=== PATIENT | male | born 1940 | race Caucasian/White ===

== ENCOUNTER 2018-03-18 02:08 | Outpatient (RCR) | payer OTHER, SELFPAY | END 2018-04-17 02:08 | LOC: CR 02:08 | PROVIDERS: PCP Family Medicine; Visit Provider Family Medicine | DX: Z98.61 Coronary angioplasty status (principal); I25.2 Old myocardial infarction; I10 Essential (primary) hypertension; Z51.89 Encounter for other specified aftercare ==

== ENCOUNTER 2018-04-16 09:30 | Outpatient (RCR) | payer OTHER, SELFPAY ==
--- NOTE | 2018-03-24 13:18 | IE_ITS ---
Date: March 24, 2018 Referring: Mauricio Dodson MD M.D. Diagnosis: Fractured R femur s/p ORIF SUBJECTIVE: Erwin complains of intermittent discomfort throughout the anterior medial aspect of the R knee, which generally occurs with WB, especially when taking the first few steps after prolonged sitting; also with end range knee flexion. History of Present Illness: 77 yo male s/p R TKR in 2003. 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 He was doing well until January 07, when he was at [facility] and lost his balance, resulting in a rotary stress and fracture of the distal R femur. He underwent ORIF with plating and cerclage wires on January 09. WB was limited to 20 lbs up until 2 weeks ago and he was cleared for full WB. Pain Ratin /10 Pain Location: Throughout the anterior medial aspect of the R knee. Prior Level of Function: Independent in all ADLs and WB without assistive device. Current Level of Function: Walks with a wheeled walker and has difficulty with his normal household and recreational activities, walking more than a couple blocks, stair climbing, etc... Social: . Lives in [place], [place]. 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 Comorbidities: Hypertension, CAD s/p MS in November this year. Had 3 stents. Was involved in cardiac rehab prior to his fracture. Falls in the last year: __X__Yes - How many? __As described above.__ - (if over 2, balance SM needs to be completed) Reported hospitalizations in the last year - __X__ Yes - Dates of admission/ reason: For his recent femoral fracture. Medications: Refer to PCP medication list. Includes anti-hypertensives and Plavix and Statin. Quality of Life: __X__ Fair Standardized Measures: LEFS score: __49%__ OBJECTIVE: Posture: Unremarkable. Observation: (behavior, atrophy, skin color, etc.) Has soft tissue swelling throughout the distal R femur and knee. Negative erythema. Has significant pronated L ankle foot complex. Gait: Ambulates with WW with poor R knee extension during stance phase and severe hyperpronation L foot. Is able to walk on his R heel and toe. Unable to toe walk on the L. He is able to walk short distances without an assistive device, again with poor knee extension during stance phase and this causes some anterior medial knee discomfort. When locking his knee into available extension , he has less anterior medial knee pain. He places greater than 180 lbs of WB on his R leg when using the walker. He weighs over 200. Palpation: Has some jointline tenderness of the R knee, as well as the anterolateral aspect of the distal R thigh compared to the L. Edema: Edematous R distal femur and knee. Positive warmth. Again, negative erythema. Girth measurements: 4 in. below the tibial tubercle is 39 cm on the R and 40 cm on the L. 8 in. above the tibial tubercle is 52 cm on the R and 50 cm on the L and midpatellar is 47 cm on the R, 45 on the L. ROM: Lumbar movements not tested. R hip motion WNL without pain on movement. R knee motion 0-115 degrees and with stretch 125 with end range drawing throughout the anteromedial aspect of the knee. R talocrural, subtalar and midtarsal movements are WFL. He has significant HAV. L foot shows significant forefoot abduction of greater than 15-20 degrees, along with forefoot varus of 20-30 degrees and limited subtalar supination with calcaneal varus at 15 degrees. Negative pain on movement. He has callus formation over the plantar aspect of the talar navicular region. Joint Accessory Motion: He has grade II PA glides at the tibiofemoral joint, along with good patellar movement. Strength: He has 15 degree extension lag of the R knee. Laxity on the L. R gluteus medius is at 3/5 as well as the gluteus alexia. When flexing his R knee in the prone position, he falls into hip ER. This causes some mild anteromedial knee discomfort, but when attempting to keep it in the midline, it decreases the sensation. ER and IR in the sitting position are equal though. Neuro: Intact. Special Tests: Negative straight leg raise bilaterally with hamstring length at 70 degrees. Treatment: Examination and pt education, as well as developing a home program. IE: [id number] Therapeutic procedures ([id number]). Direct treatment time: 60 min Total treatment time: 60 min ASSESSMENT: Patient is a 77-year-old male, referred for PT services with the diagnosis of fractured distal R femur s/p ORIF. Patient presents with clinical signs and symptoms consistent with this diagnosis, as demonstrated by the following impairment level findings: soft tissue swelling throughout the distal R femur and knee, along with quadriceps and hip musculature weakness. 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 He has tried an Deysi brace in the past, but did not tolerate it well and he is really having minimal discomfort, but it does result in leg length shortening. 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 Patient is assessed as: __X__ Low 42117 complexity, based on the following: History: (list): Distal R femoral fracture s/p ORIF. Examination: (list): X See above for functional limitations and impairments. Presentation: . X Evolving Decision-Making: X Low complexity 49 % Disability based on LEFS __X__ Patient requires skilled PT intervention to remediate the above functional limitations to return to: __X__ Premorbid level of function Prognosis: __X__ Good G-Codes (fill in modifier after appropriate code): Patient's primary functional limitation is in the category of: __X__ Mobility - walking and moving around : [id number] Projected goal: __X_ Mobility - walking and moving around: [id number] [id number] modifier to be utilized as justified by above documentation for necessity of continued Physical Therapy intervention to attend to functional deficits which have not been fully remediated as they approach their Medicare cap. STG: __6__ weeks. 1. Decrease soft tissue swelling throughout the distal thigh and knee, along with normalizing the quad and glute strength to allow normal gait mechanics and tolerating the prolonged standing and walking activities. LTG: __12__ weeks. __X__ Return to premorbid level of function. PLAN: Session today consisted of evaluation, along with issuing a written and illustrated HEP consisting of anti-gravity strengthening exercises to the gluteus alexia, medius, quads and WB terminal extension exercises for the R knee. He is to use the walker until we minimize the antalgic gait. Will see him twice per week for lymph drainage techniques, along with strengthening exercise to the entire RLE, gait training, etc... Thank you for this referral. Please do not hesitate to contact me with any questions or concerns regarding this patient's plan of care. DLW/fw MEDICAREDr. Dodson, please sign below and return to PT if you agree with above POC. Mauricio Dodson MD Date
--- NOTE | 2018-03-30 15:16 | PTTR_ITS ---
DATE: 03/30/18 SUBJECTIVE: Pt reports having some discomfort, usually on the medial aspect of the knee, but mostly feeling very weak. Is looking forward to gaining more strength. Reports being compliant with HEP OBJECTIVE: Manual therapy: ([id number]). MLD techniques applied to R LE including stimulating lymph nodes in the inguinal, popliteal fossa, and posterior ankle. This is followed by MLD strokes in a [id number] progression, and stimulation to the same lymph nodes. Therapeutic procedures ([id number]). * X HEP review: Pt complains of difficulty doing prone SLR. Suggested adding a pillow under hips to increase comfort. Rechecked form, pt appears to be performing exercises correctly. * X See flow sheet: Started pt on LE strengthening routine including standing open and closed chain hip, knee, ankle, and multi-joint functional movements as well as weight shifting over affected leg due to difficulty and pain achieving SLS. * X Provided skilled instruction in proper exercise performance: Pt requires min cueing to maintain proper form. * X Provided skilled manual cues to facilitate proper muscle recruitment and/ or movement pattern. * X Other: Vitals taken at start of treatment, please see flow sheet for details. Direct treatment time: 30 minutes Total treatment time: 30 minutes
--- NOTE | 2018-04-02 10:29 | PTTR_ITS ---
DATE: 04/02/18 SUBJECTIVE: Tra states that he is feeling stiff today, he feels that he probably overdid it yesterday. She states that he is trying to use his FWW less, to tolerance. OBJECTIVE: Manual therapy: ([id number]). With patient seated at edge of plinth, performed brief mobilization into knee extension and flexion on R, ROM is WNL. With patient in supine, performed MLD techniques t/o R LE, which includes stimulating inguinal, popliteal, and ankle lymph nodes, followed by MLD strokes starting proximally, working distally. Therapeutic procedures ([id number]). * [X] See flow sheet: Patient completed an open and closed-chain LE strengthening and stabilization program, as per flow sheet. Added reciprocal stair training and functional [id number] exercises today, with good tolerance. Patient was able to maintain SLS on R without buckling noted to perform hip PRE exercises. Vitals were taken pre-exercise and recorded on flow sheet. * [X] Provided skilled instruction in proper exercise performance. * [X] Provided skilled manual cues to facilitate proper muscle recruitment and/or movement pattern. * [X] Other: Patient ends with NuStep biking via Wellness Program. Direct treatment time: 30 minutes Total treatment time: 40 minutes
--- NOTE | 2018-04-06 10:20 | PTTR_ITS ---
DATE: 04/06/18 SUBJECTIVE: Erwin states that he felt great Friday and Friday, so he tried using his cane for the evening, and was very sore the next day. OBJECTIVE: Manual therapy: ([id number]). With patient in supine and legs positioned on a wedge pillow, performed MLD techniques to R LE. Began by stimulating the inguinal, popliteal, and ankle nodes, followed by MLD strokes, working proximally, working distally. Therapeutic procedures ([id number]). * [X] See flow sheet: Patient completed an open and closed chain LE strengthening and stabilization program, as per flow sheet. Added proprioceptive balance activities, including SLS activities, with good tolerance. Patient tolerated a slight progression in his program today, modifications made are noted on flow sheet. Vitals were taken prior to exercise and recorded on flow sheet. Patient ends with NuStep biking x10 minutes via Wellness Program. * [X] Provided skilled instruction in proper exercise performance. * [X] Provided skilled manual cues to facilitate proper muscle recruitment and/or movement pattern. Direct treatment time: 30 minutes Total treatment time: 40 minutes
--- NOTE | 2018-04-09 11:02 | PTTR_ITS ---
DATE: 04/09/18 SUBJECTIVE: Erwin states that he has developed a new pain in inferomedial thigh on the right. He describes his pain as pulling, definitely not bone pain and attributes this new sensation to an increase in activity and exercise. OBJECTIVE: Manual therapy: ([id number]). With patient in supine with B LE elevated on wedge pilliow, perform MLD techniques to R LE starting with stimulating the inguinal, popliteal, and ankle nodes, then work proximal to distal using MDL strokes. Therapeutic procedures ([id number]). * [X] See flow sheet: Patient completed a LE strengthening and stabilization program, as per flow sheet. Focused on stability with SLS on R, modifications were made to reps and times, to patient's tolerance, and are noted on the flow sheet. Vitals were taken pre-exercise and recorded on flow sheet. Patient ends with NuStep biking x10 minutes, via Wellness Program. * [X] Provided skilled instruction in proper exercise performance. * [X] Provided skilled manual cues to facilitate proper muscle recruitment and/or movement pattern. Direct treatment time: 30 minutes Total treatment time: 40 minutes
--- NOTE | 2018-04-13 09:30 | PTTR_ITS ---
DATE: 04/13/18 SUBJECTIVE: Erwin feels he has made some good gains in his gait stability compared to 2 weeks ago. He has some intermittent discomfort throughout the anterolateral and medial aspect of his R knee with hill and stairclimbing. Feels that he is stable enough that he can start walking without the walker. OBJECTIVE: S/p ORIF of distal R femur. He has been undergoing therapy for the past couple weeks. Gait: Enters the clinic walking with wheeled walker, but not putting much weight on the device itself. He is able to walk without walker with antalgia on the R which is comparable to when he is using the walker. I have him use a cane and he feels this is just as stable compared to the walker. ARTICULAR: His AA R knee motion is non-irritable. His ROM is from 0 to 128-130 degrees. He has approximately 15-20 degree extension lag though on the R Continues to have some swelling throughout the distal femur. Circumference measurements suprapatella is 49cm R, 47cm L. I upgrade his HEP to include wall squats, not to exceed 30 degrees, isotonic PRE with 5# weight along with terminal knee extension exercises to eliminate his extension lag. We discuss using a full length elastic stocking, but he is not interested in doing so, he does have a knee brace at home that has some compression to it, so he is going to see if this helps reduce some of his distal femoral swelling. I also performed a King Balance test and he scored a 43/56, under 45 indicates fall risk. Therapeutic procedures ([id number]). Direct treatment time: 40 mins Total treatment time: 40 mins A: Making progress. Has better ROM of the knee and greater stability, although he still has an extension lag and some distal femoral swelling. Still needs to build up his quads and should see a difference in his stability as a result. He does have a balance deficit based on his King scale. P: Continue to follow 2x a week for progressive strengthening in an open/close chain manner as well as balancing activities. He is expressing some interest in aquatic therapy, so will also have him try that to supplement his program. Has a follow up later in the week DLW/dl
--- NOTE | 2018-04-13 13:27 | PTTR_ITS ---
DATE: 04/13/18 OBJECTIVE: This was a co tx with PT Gilbert Garcia please refer to his note for specifics. Therapeutic procedures ([id number]). Consisting of open and closed chain LE strengthening activities, light proprioceptive activities, wobble board, functional sit to stands, cardiovascular exercise with step ups and also with the Nustep. Pt's vitals were taken please see flow sheet for specifics. Direct treatment time: 20 minutes Total treatment time: 20 minutes and then completed cardio on the Nustep and vitals on the wellness with Oneyda.
--- NOTE | 2018-04-16 14:37 | PTTR_ITS ---
DATE: 04/16/18 SUBJECTIVE: Erwin reporting feeling good today. He states he is no longer utilizing his walker and relies on the cane with outdoor ambulation. He does not tend to use his cane inside his home. OBJECTIVE: Therapeutic procedures [id number]: Instruct pt in his LE strengthening program as noted on his flow sheet also including light balance tasks and proprioceptive re -training exercises. He requires cues for appropriate movement mechanics and fatigues easily today. We did not advance program that much today as he is attending aquatic therapy later in the day. He ends with Nustep x 10 minutes via wellness program. Vitals taken pre and post, WNL. Direct time: 30 minutes Total time: 40 minutes Regina Barrientos, AGENCY DIRECTOR
--- NOTE | 2018-04-16 14:44 | AT_ITS ---
04/16/18 SUBJECTIVE: Erwin reporting feeling a little fatigued after the AM workout in the clinic. He is looking forward to aquatic therapy. OBJECTIVE: Aquatic therapy [id number]: Pt initiated his first aquatic therapy program as noted on his flow sheet for LE strengthening, conditioning and gait training activities. Provided skilled cueing throughout for appropriate movement patterns and techniques with his exercises. Ends with deep end bicycle x 5 minutes. Again pt feeling fatigued post session although no increases in discomfort. Direct time 30 minutes Total time: 40 minutes Regina Barrientos, ASW/ASUW TACTICAL AIR CONTROLLER
== END 2018-04-17 23:59 | disposition home or self-care (01) ==
LOC: PT 09:30
PROVIDERS: PCP Family Medicine; Referring Provider Orthopaedic Surgery; Visit Provider Orthopaedic Surgery
DX: S72.401D Unspecified fracture of lower end of right femur, subsequent encounter for closed fracture with routine healing (principal)
CPT/HCPCS: 97110; 97113; 97140; 97161; G8978

== ENCOUNTER 2018-05-15 13:22 | Outpatient (RCR) | payer OTHER, SELFPAY | END 2018-05-17 23:59 | disposition home or self-care (01) | LOC: CR 13:22 | PROVIDERS: PCP Family Medicine; Visit Provider Family Medicine | DX: Z98.61 Coronary angioplasty status (principal); I25.2 Old myocardial infarction; I10 Essential (primary) hypertension; Z51.89 Encounter for other specified aftercare | CPT/HCPCS: S9472 ==

== ENCOUNTER 2018-06-17 09:00 | Outpatient (RCR) | payer OTHER, SELFPAY | END 2018-06-17 23:59 | disposition home or self-care (01) | LOC: CR 09:00 | PROVIDERS: PCP Family Medicine; Visit Provider Family Medicine | DX: Z98.61 Coronary angioplasty status (principal); I25.2 Old myocardial infarction; I10 Essential (primary) hypertension; Z51.89 Encounter for other specified aftercare | CPT/HCPCS: S9472 ==

== ENCOUNTER 2018-06-22 13:03 | Outpatient (RCR) | payer OTHER, SELFPAY | END 2018-07-17 23:59 | disposition home or self-care (01) | LOC: CR 13:03 | PROVIDERS: PCP Family Medicine; Visit Provider Family Medicine | DX: Z98.61 Coronary angioplasty status (principal); I25.2 Old myocardial infarction; I10 Essential (primary) hypertension; Z51.89 Encounter for other specified aftercare | CPT/HCPCS: S9472 ==

== ENCOUNTER 2018-09-02 08:40 | Outpatient (REF) | payer OTHER, SELFPAY ==
[2018-09-02 11:54] LABS: Abs Immature Grans 0.01 k/cumm (0.0-0.09); Absolute Basophil Count 0.04 k/cumm (0.0-0.2); Absolute Eosinophil Count 0.12 k/cumm (0.0-0.7); Absolute Lymphocyte Count 1.71 k/cumm (1.2-3.4); Absolute Monocyte Count 0.44 k/cumm (0.11-0.7); Absolute Neutrophil Count 2.57 k/cumm (1.2-6.7); Basophils % 0.8; Eosinophils % 2.5; HCT 39.7 % (40.0-50.0); HGB 13.3 g/dL (13.5-17.5); Immature Grans % 0.2; Mean Corp. HGB Concentration 33.5 g/dL (32.0-36.0); Mean Corpuscular Hemoglobin 30.3 pg (27.0-33.0); Mean Corpuscular Volume 90.4 fL (80-95); Mean Platelet Volume 10.4 fL (8.0-11.0); Neutrophils % 52.5; Platelet Count 154 x1000/uL (130-400); RBC 4.39 m/cumm (4.50-6.00); RBC Distribution Width 13.1 % (11.8-14.1); White Blood Cell Count 4.89 k/cumm (4.4-10.8)
[2018-09-02 12:16] LABS: ALT 29 U/L (12-78); AST 20 U/L (15-37); Albumin 3.3 g/dL (3.4-5.0); Alkaline Phosphatase 122 U/L (46-116); Anion Gap 6.4 mmol/L (3-11); BUN 31 mg/dL (7-18); Bilirubin, Total 0.7 mg/dL (0.2-1.0); CO2 28.6 mmol/L (21.0-32.0); CREATININE 1.63 mg/dL (0.70-1.30); Calcium 8.7 mg/dL (8.5-10.1); Chloride 102 mmol/L (98-107); Cholesterol 120 mg/dL (50-200); Estimated GFR 41.12 (mL/min/1.73m2); Glucose 76 mg/dL (70-100); HDL Cholesterol 57 mg/dL (40-60); LDL CHOLESTEROL 55 mg/dL (<100); Potassium 4.2 mmol/L (3.5-5.1); Sodium 137 mmol/L (136-145); Total Protein 6.1 g/dL (6.4-8.2); Triglyceride 56 mg/dL (30-150)
== END 2018-09-02 09:00 ==
LOC: NCHCN 08:40
PROVIDERS: PCP Family Medicine; Visit Provider Family Medicine
DX: E78.5 Hyperlipidemia, unspecified (principal); I10 Essential (primary) hypertension; D64.9 Anemia, unspecified
CPT/HCPCS: 80053; 80061; 83721; 85025

== ENCOUNTER 2019-03-22 12:41 | Outpatient (CLI) | payer OTHER, SELFPAY ==
--- NOTE | 2019-03-22 10:00 | DI.RAD_ITS ---
SYMPTOMS/DIAGNOSIS: KNEE PAIN LEFT KNEE: There is narrowing of the lateral femoral tibial joint as well as patellofemoral joint. Periarticular spurring is noted. There may be a small joint effusion. Vascular calcifications are seen. IMPRESSION: Moderate to severe degenerative changes.
== END 2019-03-22 13:01 ==
PROVIDERS: PCP Family Medicine; Referring Provider Family Medicine; Visit Provider Student in an Organized Health Care Education/Training Program
DX: M25.562 Pain in left knee (principal); M17.12 Unilateral primary osteoarthritis, left knee; M25.462 Effusion, left knee; Z96.651 Presence of right artificial knee joint; Z87.81 Personal history of (healed) traumatic fracture
CPT/HCPCS: 73562; 99203; 99214

== ENCOUNTER 2019-05-31 10:31 | Observation (INO) | payer OTHER, SELFPAY ==
[2019-05-31] VITALS (31 sets, daily range): BP systolic 111–186; BP diastolic 10–107; PULSE 35–112; RESP 16–27; TEMP 35.9–37; O2SAT 91–98
--- NOTE | 2019-05-31 10:33 | DI.RAD_ITS ---
EXAM: XR PORTABLE CHEST AP INDICATION: severe bradycardia. COMPARISON: CHEST ONE VIEW IN RAD DEPT from 01/07/2018 TECHNIQUE: 2D digital imaging was performed. FINDINGS: AP view of the chest was obtained. Heart is not enlarged. Lungs are clear and well expanded. Quest ion spinal stimulator projected over the lower thoracic/upper lumbar region. IMPRESSION: No evidence of acute process
--- NOTE | 2019-05-31 10:49 | W.ED.GENAD ---
Discharge Plan Disposition Patient Disposition: [facility] INPATIENT Condition: Good Discharge Details Chief Complaint: Palpitatns Clinical Impression: Symptomatic bradycardia, Bigeminy Primary Care Provider: Karo Otero ED Provider: Willie Sotomayor Home Meds and New Rx's Prescriptions: No Action bupropion HCl 150 MG tablet extended release 12 hr 150 mg PO BID RF: 0 aspirin [Aspirin Low Dose] 81 MG tablet,delayed release (DR/EC) 81 mg PO DAILY RF: 0 temazepam 15 MG capsule 15 mg PO .QHS RF: 0 multivitamin 1 EACH capsule 1 tab PO DAILY RF: 0 atorvastatin 20 mg Tablet 20 mg PO QPM RF: 0 irbesartan-hydrochlorothiazide 150-12.5 mg Tablet 1 tab PO DAILY RF: 0 metoprolol tartrate 25 MG tablet 12.5 mg PO BID RF: 0 nitroglycerin 0.4 MG tablet, sublingual 1 tab PO PRN PRNRF: 0 Medical Decision Making This is a very pleasant 78-year-old male with past medical history of AK 2018 with 2 subsequent stents, who takes daily aspirin and 25 mg daily metoprolol. He presents today for notable fatigue that started this morning when he awoke. He checked his pulse and noted it to be at the 30s per his nurse , blood pressure was slightly elevated in the 140 systolic. No syncope or chest pain or chest heaviness. He came to the ER for further assessment. Physical exam is notably benign, bedside limited ultrasound seems to demonstrate fair contractility throughout, no pericardial effusion. PVCs are notable which appears to be in a ratio bigeminy, however a subtle pulse is detected during these PVC episodes. During the patient's bedside cardiac ultrasound he actually did have complete resolution of his bigeminy for a few minutes, then reverted back to his bigeminy rhythm. We will evaluate for electrolyte abnormalities, pacer pads have been placed, will monitor closely. Unfortunately there is no cardiology available here at [facility] today. We will reach out to [facility] once his laboratory work-up is complete. 12:31 PM Laboratory work-up demonstrates no significant electrolyte abnormalities, CBC benign. Creatinine slightly elevated at 1.73. Patient remains asymptomatic while sitting in bed, he does get fatigued when he gets up and starts to walk. Did contact [facility] and discussed the case with Dr. fry, who recommended observation for the next 12 to 24 hours, holding the metoprolol, and reassessing. They state that currently they do not have beds available for transfer down to [facility]. They do not recommend any overdrive pacing at this time, or any other additional medications. I did contact our hospitalist , he agrees with the assessment and plan. I have extensively reviewed the treatment plan with the patient. I have addressed all patient concerns at this time. I have also discussed the plan with the admitting physician and they agree with the current assessment and plan and have agreed to assume responsibility for the patient. All parties demonstrate verbal understanding and agreement with our assessment and plan at this time. EKG 10: 37 Rate 69, WY 218, QTc 446, QRS 92, sinus rhythm, frequent PVCs with bigeminy, no significant ST elevations or depressions, no T wave inversions, no evidence of STEMI. No evidence of Brugada, or Wellens syndrome. FINDINGS: AP view of the chest was obtained. Heart is not enlarged. Lungs are clear and well expanded. Question spinal stimulator projected over the lower thoracic/upper lumbar region. IMPRESSION: No evidence of acute process Ordered By: Willie Sotomayor DO CC: HPI General Date/Time Provider Initiated Documentation: 05/31/19 10:32. HPI Narrative: This is a pleasant 78-year-old male with a past medical history of coronary artery disease status post 2 stents were placed in [address] 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 fisheries manager Augie. He takes a daily 25 mg metoprolol, as well as aspirin. He presents today for evaluation of fatigue. This morning he noticed that he was extremely fatigued. He denies any associated chest pain or shortness of breath. He denies any arm pain, chest heaviness, or chest tightness. He denies any numbness, tingling, weakness or syncope. He did check his pulse and had his who is a nurse also check his pulse and it was noted to be bradycardic in the 30s. Blood pressure was stable though, actually slightly elevated in the 140s. He came to the ER for further assessment. He denies any previous episodes like this. He states that the symptoms are atypical for when he had his heart attack in the past. He denies any other complaints at this time. He denies any dietary changes, change in medications, or other abnormalities. Related Data Home Medications Medication Instructions Recorded Confirmed aspirin [Aspirin Low Dose] 81 mg PO DAILY 11/18/17 05/31/19 bupropion HCl 150 mg PO BID 11/18/17 05/31/19 multivitamin 1 tab PO DAILY 11/18/17 03/22/19 temazepam 15 mg PO .QHS 11/18/17 05/31/19 metoprolol tartrate 12.5 mg PO BID 01/07/18 05/31/19 nitroglycerin 1 tab PO PRN PRN 01/07/18 05/31/19 atorvastatin 20 mg PO QPM 05/31/19 05/31/19 irbesartan-hydrochlorothiazide 1 tab PO DAILY 05/31/19 05/31/19 Allergies Allergy/AdvReac Type Severity Reaction Status Date / Time oxycodone AdvReac Intermediate Nausea Unverified 05/31/19 11:11 pollen Allergy Uncoded 05/31/19 11:11 Review of Systems Review of Systems ROS Unobtainable: All systems reviewed & are unremarkable except as noted in HPI and below PFSH Medical History (Updated 03/22/19 @ 19:14 by Luana Rosenberg) History of non-ST elevation myocardial infarction (NSTEMI) (Acute) November 2017 Surgical History (Updated 03/22/19 @ 19:14 by Luana Rosenberg) History of revision of total replacement of right knee joint (Acute) Right TKA - [place] (2003) Two-stage revision for infection -[place] (2008) S/P ORIF (open reduction internal fixation) fracture (Acute) Right distal femur fracture Social History Smoking/Tobacco Use Status: Former Tobacco Use Alcohol Intake: former Substance use type: does not use Do you feel safe at home: Yes Do you feel safe in your relationship?: Yes Exam Narrative Exam Narrative: 1.Const: Well-nourished, Well-developed, appearing stated age 2.Eyes: PERRL, no conjunctival injection, and symmetrical lids. 3.ENT: Atraumatic external nose and ears. Moist MM. Neck: Symmetric, trachea midline, No thyromegaly. 4.CVS: +S1/S2, No murmurs or gallops. Peripheral pulses 2+ and equal in all extremities. Brisk capillary refill in all extremities. Pulses are intact throughout, subtle secondary pulse is felt in conjunction with the patient's PVCs. 5.RESP: Unlabored respiratory effort. Clear to auscultation bilaterally. No wheezes rales or rhonchi 6.GI: Soft, Nontender/Nondistended, No hepatosplenomegaly. No guarding or rebound. 7.MSK: Normocephalic/Atraumatic, Extremities w/o deformity or ttp No cyanosis or clubbing, Normal movement of all extremities 8.Skin: Warm, Dry. No rashes or lesions. 9.Neuro: wearing apparel assembler II-XII grossly intact. Sensation grossly intact, no focal neurologic deficits. 10.Psych: (AAO) x3. Appropriate mood and affect
[2019-05-31 10:54] LABS: Abs Immature Grans 0.02 k/cumm (0.0-0.09); Absolute Basophil Count 0.05 k/cumm (0.0-0.2); Absolute Eosinophil Count 0.18 k/cumm (0.0-0.7); Absolute Monocyte Count 0.94 k/cumm (0.11-0.7); Absolute Neutrophil Count 5.04 k/cumm (1.2-6.7); Basophils % 0.5; Eosinophils % 1.8; HCT 42.5 % (40.0-50.0); HGB 14.4 g/dL (13.5-17.5); Immature Grans % 0.2; Mean Corp. HGB Concentration 33.9 g/dL (32.0-36.0); Mean Corpuscular Hemoglobin 30.2 pg (27.0-33.0); Mean Corpuscular Volume 89.1 fL (80-95); Monocytes % 9.7; Neutrophils % 51.8; Platelet Count 177 x1000/uL (130-400); RBC 4.77 m/cumm (4.50-6.00); RBC Distribution Width 13.2 % (11.8-14.1); White Blood Cell Count 9.73 k/cumm (4.4-10.8)
[2019-05-31 11:08] LABS: PTT Activated 24.2 sec (21.0-31.4); Prothrombin Time 10.3 sec (9.3-11.0)
[2019-05-31 11:16] LABS: ALT 32 U/L (16-63); AST 22 U/L (15-37); Albumin 3.8 g/dL (3.4-5.0); Alkaline Phosphatase 118 U/L (46-116); BUN 31 mg/dL (7-18); Bilirubin, Total 0.8 mg/dL (0.2-1.0); CREATININE 1.73 mg/dL (0.70-1.30); Calcium 9.2 mg/dL (8.5-10.1); Chloride 101 mmol/L (98-107); Estimated GFR 38.29 (mL/min/1.73m2); Glucose 100 mg/dL (70-100); Magnesium 1.8 mg/dL (1.8-2.4); Potassium 4.2 mmol/L (3.5-5.1); Sodium 137 mmol/L (136-145); TSH (W/Ref FT4) 5.05 uIU/mL (0.36-3.74); Total Protein 7.4 g/dL (6.4-8.2)
[2019-05-31 11:18] LABS: Troponin I < 0.05 ng/mL (0.00-0.06)
--- NOTE | 2019-05-31 13:30 | DI.US_ITS ---
APPROVED REPORT EXAM: Comprehensive 2D, Doppler, and color-flow Echocardiogram Patient Location: ER Patient Account Liaison: SHANELL Henriquez (AE) Indications: Palpitations, CAD Left Ventricle The left ventricle is normal size. The left ventricular systolic function is normal. The left ventric ular ejection fraction is within the normal range. Mild concentric left ventricular hypertrophy. Ther e is cavity obliteration and pre-PVC beats. There is discrete upper septal wall thickening There is n ormal LV segmental wall motion. Could not determine diastolic function given frequency of PVCs. LVEF is 50-55%. Right Ventricle The right ventricle is normal size. The right ventricular systolic function is normal. Atria The left atrium size is normal. The right atrium size is normal. Aortic Valve Aortic valve is trileaflet. Aortic valve is thickened but has adequate excursion. There is no aortic valvular stenosis. Mild aortic regurgitation. Mitral Valve The mitral valve is normal in structure. No evidence of mitral valve stenosis. Mild mitral regurgitat ion. Tricuspid Valve The tricuspid valve is normal in structure. Trace tricuspid regurgitation. Pulmonic Valve Pulmonic valve is not well visualized. Trace pulmonic regurgitation. Great Vessels The aortic root is normal in size. IVC is not well-visualized Pericardium There is no pericardial effusion. 2D Dimensions IVSd 1.1 cm M: 0.6-1.2 PWd 1.1 cm M: 0.6 - 1.2 LVDd 4.2 cm M: 4.2 - 5.9 LVDs 3.3 cm M: 2.5 - 4.0 Aortic Root 3.5 cm M: 3.1 - 3.7 Left Atrium 3.3 cm M: 3.0 - 4.0 LVOT 1.9 cm (M/F) 1.5-2.5 Ascending Aorta 3.7 cm M: 2.6 - 3.4 FS 22.5 % LV Diastology E/A Ratio 0.5 LAT E' 0.1 (<0.1 m/s) LV E/e LAT 5.8 (>14) Aortic Valve LVOT Peak Rusty. 1.5 m/s LVOT Peak Gr. 9.3 mmHg LVOT Mean Gr. 4.2 mmHg LVOT VTI 0.3 m AoV Peak Rusty. 1.7 (0.5-1.3 m/s) AoV Mean Rusty. 1.1 m/s AI PHT 1471.8 msec AO Peak GR. 11.5 mmHg AO Mean GR. 1.1 (<5 mmHg) AO VTI 0.3 (0.18-0.25 m) DAQUAN (VTI) 1.3 (2.5-4.5 cm2) Mitral Valve MV E Max Rusty. 0.4 (0.4-1.3 m/s) MV A Velocity 0.8 (0.4-1.3 m/s) E/A Ratio 0.6 MV Decel. Time 244.5 (160-240 msec) MV PHT 70.9 msec MVA PHT 3.1 cm2 Pulmonary Valve PV Peak Velocity 0.8 (0.5-1.5 m/s) Tricuspid Valve TR P. Velocity 2.2 m/s TR P. Gradient 18.8 mmHg Conclusion Image quality was limited due to frequent PVCs Left Ventricle : The left ventricle is normal size. Mild concentric left ventricular hypertrophy. Th ere is cavity obliteration and pre-PVC beats. There is discrete upper septal wall thickening. Could not determine diastolic function given frequency of PVCs. There is normal LV segmental wall motion. L VEF is 50-55%. Right Ventricle : The right ventricle is normal size. The right ventricular systolic function is norm al. Atria : The left atrium size is normal. The right atrium size is normal. Aortic Valve : Aortic valve is trileaflet. Aortic valve is thickened but has adequate excursion. Mild aortic regurgitation. There is no aortic valvular stenosis. Mitral Valve : The mitral valve is normal in structure. Mild mitral regurgitation. No evidence of beverly ral valve stenosis. Tricuspid Valve : The tricuspid valve is normal in structure. Trace tricuspid regurgitation. Pulmonic Valve : Trace pulmonic regurgitation. Great Vessels : IVC is not well-visualized There is no prior echocardiogram available for comparison
--- NOTE | 2019-05-31 13:58 | NUR.NOTE ---
Nursing Note: 1330- Dr. Sotomayor states pt may travel to [place] without cardiac monitoring, pacer pads to be removed for exam.
--- NOTE | 2019-05-31 14:46 | CCONE_ITS ---
Date of service: 05/31/19 Assessment and Plan Assessment and plan (1) Bigeminal rhythm: Status: Acute Assessment and plan: 1. Ventricular bigeminy patient was having episodes of bigeminy on teletypesetter monitor. Sitting in bed he is asymptomatic at this time. Echocardiogram today shows no significant wall motion abnormalities or other structural abnormalities. ?Patient should have beta-latesha increased with the hopes of suppressing the PVCs/bigeminy. If that does not work would consider amiodarone or sotalol. ?Patient would likely be a good candidate for radiofrequency ablation and after discussion with him he seems like he would be interested. ?We will see how he does overnight from a PVC suppression standpoint ?Interestingly patient has an elevated TSH which per literature review can sometimes be associated with increased tendency for premature beats though with a normal T4 this seems less likely. 2. History of CAD. Patient does not have any symptoms consistent with angina or ischemia. Do not think ischemic evaluation beyond serial troponins is necessary at this point. ?Continue to follow symptoms Thank you for this interesting consult we will continue to follow along. History of Present Illness History of Present Illness Chief Complaint: palpitations Narrative: This is a 78-year-old male with past medical history significant for myocardial infarction in 2018 status post stenting x2 who presents with fatigue. Per the patient and his he woke up this morning feeling noticeably more fatigued than he does normally. He took his pulse with the help of his and noted to be in the 30s. He decided to come to the emergency room for evaluation. Patient denies lightheadedness dizziness or presyncopal feelings. He has never had any episodes like this in the past including during his non- STEMI. Upon further discussion the patient thinks that he had some fatigue and pounding in his chest for the past week or so. He did not make much of it until it got significantly worse this morning. In the emergency room he was noted to be in bigeminy. Work-up in the emergency room demonstrated no significant electrolyte abnormalities. Review of Systems Review of Systems ROS Unobtainable: All systems reviewed & are unremarkable except as noted in HPI and below PFSH Medical History (Updated 05/31/19 @ 16:14 by Demarco Romero MD) CAD (coronary artery disease) (Chronic) CKD (chronic kidney disease) (Acute) Depression (Chronic) History of non-ST elevation myocardial infarction (NSTEMI) (Acute) November 2017 HTN (hypertension) with goal to be determined (Acute) Surgical History History of revision of total replacement of right knee joint (Acute) Right TKA - [place] (2003) Two-stage revision for infection -[place] (2008) S/P ORIF (open reduction internal fixation) fracture (Acute) Right distal femur fracture Social History (Updated 05/31/19 @ 16:11 by Demarco Romero MD) Smoking/Tobacco Use Status: Former Tobacco Use Alcohol Intake: former Substance use type: does not use Do you feel safe at home: Yes Do you feel safe in your relationship?: Yes Additional Social history: Patient is , and together they had one child who . He does have grandchildren. 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 Previously retired to [place] prior to moving to [place] 3 years ago. Prior history of tobacco, quit 25 years ago. Prior history of EtOH use, last used 40 years ago. Exam Const General: comfortable and no acute distress HENMT Head: normocephalic and atraumatic Eyes General: appearance normal, both eyes and all related structures Resp Effort & Inspection: normal respiratory effort Auscultation: clear to auscultation bilaterally Cardio Jugular venous pressure: no JVD Palpation: normal PMI Rate: regular rate Rhythm: regular rhythm Heart Sounds: S1 normal and S2 normal (No Murmurs, Rubs or Gallops) GI Palpation: soft Auscultation: normoactive bowel sounds Skin General skin exam: no rashes or lesions noted Extrem General: normal to inspection and no clubbing, cyanosis or edema Psych Appearance: grossly normal Results Last Vital Signs Temp 37 C 05/31/19 10:35 Pulse 63 05/31/19 13:16 Resp 19 05/31/19 13:20 BP 140/82 05/31/19 13:16 Pulse Ox 95 05/31/19 13:20 Labs Result diagrams: 05/31/19 10:45 05/31/19 10:45 Labs: Laboratory Results - last 24 hr 05/31/19 05/31/19 05/31/19 10:45 10:45 10:45 WBC 9.73 RBC 4.77 Hgb 14.4 Hct 42.5 MCV 89.1 MCH 30.2 MCHC 33.9 RDW 13.2 Plt Count 177 MPV 10.0 Immature Gran % 0.2 Neutrophils % 51.8 Lymphocytes % 36.0 Monocytes % 9.7 Eosinophils % 1.8 Basophils % 0.5 Absolute Neutrophils 5.04 Absolute Lymphocytes 3.50 H Absolute Monocytes 0.94 H Absolute Eosinophils 0.18 Absolute Basophils 0.05 PT 10.3 INR 1.0 APTT 24.2 Sodium 137 Potassium 4.2 Chloride 101 Carbon Dioxide 29.0 Anion Gap 7.0 BUN 31 H Creatinine 1.73 H Estimated GFR/1.73 m2 38.29 Glucose 100 Calcium 9.2 Magnesium 1.8 Total Bilirubin 0.8 AST 22 ALT 32 Alkaline Phosphatase 118 H Troponin I < 0.05 Total Protein 7.4 Albumin 3.8 TSH 5.05 H Free T4 1.00 EKG interpretations EKG EKG results cardiology: sinus rhythm and normal axis Dysrhythmias Ventricular dysrhythmias: ventricular premature complexes (Bigemeny)
[2019-05-31] MEDS: Heparin 5,000 UNITS/ML VIAL 5000 UNITS SC ×2 (15:43→22:08)
--- NOTE | 2019-05-31 16:04 | HPE_ITS ---
Date of service: 05/31/19 Time of Service: 16:04 Assessment and Plan Assessment and plan (1) Bigeminal rhythm: Status: Acute Assessment and plan: Evidence of a sustained and fairly symptomatic ventricular bigeminy, she appears to be a new finding in patients. He denies any similar symptoms in the past. He remains on low-dose beta-latesha therapy. -Discussed case with cardiology, and upon review of the history and ECG findings decision was made to increase patient's metoprolol with strict hold parameters, check an ECHO for any structural cardiac defects and for any evidence of acute ischemia, and rule out for ACS with serial cardiac biomarkers. Pending results of the above, and assuming that the patient's symptoms are not ischemic, he may require either titration of his BB therapy, initiation of antiarrhythmic therapy, or perhaps referral for an EP study with consideration for subsequent ablation. Will monitor closely overnight on telemetry, with low threshold for moving patient to the ICU if symptoms worsen. (2) CAD (coronary artery disease): Status: Chronic Assessment and plan: Currently without any evidence of ischemia by review of ECG, and initial troponin appears negative. History is not typical for ACS. Will rule out with serial cardiac biomarkers as above. For now, continue BB, ASA, and high potency statin. (3) HTN (hypertension) with goal to be determined: Status: Acute Assessment and plan: Continue BB, combination ARB and thiazide therapy. (4) CKD (chronic kidney disease): Status: Acute Assessment and plan: Creatinine appears at baseline. Renally dose medications when appropriate, and avoid nephrotoxins. (5) DVT prophylaxis: Status: Acute Assessment and plan: SC heparin. (6) Advance directive discussed with patient: Status: Acute Assessment and plan: Full code as per discussion with patient today. History of Present Illness History of Present Illness Chief Complaint: Fatigue Narrative: Very pleasant 78-year-old man with past medical history significant for CAD, being admitted f [facility] emergency department on 05/31 with a diagnosis of symptomatic Ventricular Bigeminy. Mr. Brothers has a past medical history significant for CAD with a prior history of SD in 2018, s/p stents x2. His other medical history includes depression, CKD, and HTN. The patient reports feeling somewhat off in the day prior to his admission, and awoke this morning feeling significant fatigue. He reports some associated lightheadedness, but denies any overt vertigo, nausea, vomiting, or associated headaches. He also denies any concurrent dyspnea or chest pain. He checked his vital signs at home with a home machine, and was surprised to find that his heart rate was reading at low. He presented to the ED upon recommendations from the doctor's office, and was initially told that he had a heart rate of 30. However, telemetry and subsequent ECG showed evidence of a regularly occurring ventricular bigeminy that was essentially maintained as the patient's baseline rhythm. Mr. Brothers was at that time referred for admission for further evaluation and treatment. Review of Systems Review of Systems ROS Unobtainable: All systems reviewed & are unremarkable except as noted in HPI and below [facility] Medical History (Updated 05/31/19 @ 16:14 by Demarco Romero MD) CAD (coronary artery disease) (Chronic) CKD (chronic kidney disease) (Acute) Depression (Chronic) History of non-ST elevation myocardial infarction (NSTEMI) (Acute) November 2017 HTN (hypertension) with goal to be determined (Acute) Surgical History History of revision of total replacement of right knee joint (Acute) Right TKA - [place] (2003) Two-stage revision for infection -[place] (2008) S/P ORIF (open reduction internal fixation) fracture (Acute) Right distal femur fracture Social History (Updated 05/31/19 @ 16:11 by Demarco Romero MD) Smoking/Tobacco Use Status: Former Tobacco Use Alcohol Intake: former Substance use type: does not use Do you feel safe at home: Yes Do you feel safe in your relationship?: Yes Additional Social history: Patient is , and together they had one child who . He does have grandchildren. 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 Previously retired to [place] prior to moving to [place] 3 years ago. Prior history of tobacco, quit 25 years ago. Prior history of EtOH use, last used 40 years ago. Meds Home Medications and Allergies Home Medications Medication Instructions Recorded Confirmed Type aspirin [Aspirin Low Dose] 81 mg PO DAILY 11/18/17 05/31/19 History bupropion HCl 150 mg PO BID 11/18/17 05/31/19 History multivitamin 1 tab PO DAILY 11/18/17 05/31/19 History temazepam 15 mg PO .QHS 11/18/17 05/31/19 History nitroglycerin 1 tab PO PRN PRN 01/07/18 05/31/19 History atorvastatin 80 mg PO .Q PM 05/31/19 05/31/19 History fluticasone propionate 1 inh INHALATION BID 05/31/19 05/31/19 History irbesartan-hydrochlorothiazide 1 tab PO DAILY 05/31/19 05/31/19 History metoprolol succinate 25 mg PO DAILY 05/31/19 05/31/19 History Allergies Allergy/AdvReac Type Severity Reaction Status Date / Time oxycodone AdvReac Intermediate Nausea Unverified 05/31/19 11:11 pollen Allergy Uncoded 05/31/19 11:11 Exam Narrative Exam Narrative: General: Patient appears comfortable, AAOX3, NAD Neck: Supple CV: Regular, nonbradycardic, mild ectopy. No rubs, murmurs, or gallops. Pulmonary: Clear to auscultation bilaterally, no crackles, wheezing, or rhonchi Abdomen: + Bowel Sounds, soft, nontender, nondistended Vascular: No lower extremity edema Neurologic: CN II-XII grossly intact. No focal deficits. Psych: Normal mood and affect. Results Imaging Chest x-ray: report reviewed Additional studies: Exam(s) a RAD:XR portable chest AP EXAM: XR PORTABLE CHEST AP INDICATION: severe bradycardia. COMPARISON: CHEST ONE VIEW IN RAD DEPT from 01/07/2018 TECHNIQUE: 2D digital imaging was performed. FINDINGS: AP view of the chest was obtained. Heart is not enlarged. Lungs are clear and well expanded. Question spinal stimulator projected over the lower thoracic/upper lumbar region. IMPRESSION: No evidence of acute process Labs Result diagrams: 05/31/19 10:45 05/31/19 10:45 Labs: Laboratory Results - last 24 hr 05/31/19 05/31/19 05/31/19 10:45 10:45 10:45 WBC 9.73 RBC 4.77 Hgb 14.4 Hct 42.5 MCV 89.1 MCH 30.2 MCHC 33.9 RDW 13.2 Plt Count 177 MPV 10.0 Immature Gran % 0.2 Neutrophils % 51.8 Lymphocytes % 36.0 Monocytes % 9.7 Eosinophils % 1.8 Basophils % 0.5 Absolute Neutrophils 5.04 Absolute Lymphocytes 3.50 H Absolute Monocytes 0.94 H Absolute Eosinophils 0.18 Absolute Basophils 0.05 PT 10.3 INR 1.0 APTT 24.2 Sodium 137 Potassium 4.2 Chloride 101 Carbon Dioxide 29.0 Anion Gap 7.0 BUN 31 H Creatinine 1.73 H Estimated GFR/1.73 m2 38.29 Glucose 100 Calcium 9.2 Magnesium 1.8 Total Bilirubin 0.8 AST 22 ALT 32 Alkaline Phosphatase 118 H Troponin I < 0.05 Total Protein 7.4 Albumin 3.8 TSH 5.05 H Free T4 1.00 Last Vital Signs Temp 35.9 C L 05/31/19 15:24 Pulse 66 05/31/19 15:24 Resp 18 05/31/19 15:24 BP 143/96 H 05/31/19 15:24 Pulse Ox 95 05/31/19 15:24
[2019-05-31 16:32] LABS: Troponin I < 0.05 ng/mL (0.00-0.06)
[2019-05-31] MEDS: Mylanta Suspension 30 ML CUP PO (18:05)
[2019-05-31] MEDS: Atorvastatin 20 MG TAB PO (19:33)
[2019-05-31] MEDS: buPROPion-CR 150 MG TABCR PO (19:33)
[2019-05-31 19:40] LABS: Troponin I < 0.05 ng/mL (0.00-0.06)
[2019-05-31] MEDS: Temazepam 15 MG CAP PO (22:08)
[2019-06-01 02:29] VITALS: BP 115/67; PULSE 62
[2019-06-01] MEDS: Metoprolol 25 MG TAB PO ×2 (02:29→11:35)
[2019-06-01] MEDS: Heparin 5,000 UNITS/ML VIAL 5000 UNITS SC (05:28)
[2019-06-01 07:00] VITALS: PULSE 52
[2019-06-01 07:40] LABS: Abs Immature Grans 0.02 k/cumm (0.0-0.09); Absolute Basophil Count 0.02 k/cumm (0.0-0.2); Absolute Eosinophil Count 0.09 k/cumm (0.0-0.7); Absolute Lymphocyte Count 1.79 k/cumm (1.2-3.4); Absolute Monocyte Count 0.49 k/cumm (0.11-0.7); Absolute Neutrophil Count 3.67 k/cumm (1.2-6.7); Basophils % 0.3; Eosinophils % 1.5; HCT 41.8 % (40.0-50.0); HGB 14.1 g/dL (13.5-17.5); Immature Grans % 0.3; Lymphocytes % 29.4; Mean Corp. HGB Concentration 33.7 g/dL (32.0-36.0); Mean Corpuscular Hemoglobin 29.8 pg (27.0-33.0); Mean Corpuscular Volume 88.4 fL (80-95); Mean Platelet Volume 10.5 fL (8.0-11.0); Monocytes % 8.1; Neutrophils % 60.4; Platelet Count 166 x1000/uL (130-400); RBC 4.73 m/cumm (4.50-6.00); RBC Distribution Width 13.2 % (11.8-14.1); White Blood Cell Count 6.08 k/cumm (4.4-10.8)
[2019-06-01 07:45] VITALS: BP 148/88; PULSE 51; RESP 16; TEMP 36; O2SAT 98
[2019-06-01 07:57] LABS: Anion Gap 6.7 mmol/L (3-11); BUN 25 mg/dL (7-18); CO2 27.3 mmol/L (21.0-32.0); CREATININE 1.63 mg/dL (0.70-1.30); Calcium 8.8 mg/dL (8.5-10.1); Chloride 102 mmol/L (98-107); Estimated GFR 41.02 (mL/min/1.73m2); Glucose 115 mg/dL (70-100); Magnesium 1.9 mg/dL (1.8-2.4); Sodium 136 mmol/L (136-145)
[2019-06-01] MEDS: Irbesartan 75 MG TAB 150 MG PO (09:11)
[2019-06-01] MEDS: hydroCHLOROthiazide 12.5 MG TAB PO (09:12)
[2019-06-01] MEDS: Aspirin E.C. 81 MG TABEC PO (09:12)
[2019-06-01] MEDS: buPROPion-CR 150 MG TABCR PO (09:12)
[2019-06-01] MEDS: Multivitamin TAB 1 TAB PO (09:12)
[2019-06-01 11:35] VITALS: BP 150/92; PULSE 89; RESP 16
--- NOTE | 2019-06-01 14:17 | DSE_ITS ---
Date of service: 06/01/19 Time of Service: 14:17 DS: Diagnosis Discharge Diagnosis (1) Bigeminal rhythm: Status: Acute Discharge Plan Disposition Patient Disposition: HOME Condition: Good Discharge Details Chief Complaint: Palpitatns Clinical Impression: Symptomatic bradycardia, Bigeminy Reason For Visit: VENTRICULAR BIGEMINY Admit Date/Time: 05/31/19 12:47 Admit Provider: Demarco Romero Attending Provider: Demarco Romero Primary Care Provider: Karo Otero ED Provider: Willie Sotomayor Hospital Course Hospital Course: Chief Complaint: Fatigue HPI: Very pleasant 78-year-old man with past medical history significant for CAD, admitted from [facility] emergency department on 05/31 with a diagnosis of symptomatic Ventricular Bigeminy. Mr. Brothers has a past medical history significant for CAD with a prior history of OR in 2018, s/p stents x2. His other medical history includes depression, CKD, and HTN. The patient reported feeling somewhat off on the day prior to his admission, and awoke on the morning of admission feeling significant fatigue. He reported some associated lightheadedness, but denied any overt vertigo, nausea, vomiting, or associated headaches. He also denied any concurrent dyspnea or chest pain. He checked his vital signs at home with a home machine, and was surprised to find that his heart rate was reading at low. He presented to the ED upon recommendations from the doctor's office, and was initially told that he had a heart rate of 30. However, telemetry and subsequent ECG showed evidence of a regularly occurring ventricular bigeminy that was essentially maintained as the patient's baseline rhythm, with a HR of 60. Mr. Brothers was at that time referred for admission for further evaluation and treatment. Hospital Course: (1) Bigeminal rhythm: Evidence of a sustained and fairly symptomatic ventricular bigeminy, appears to be a new finding in patients. He denied any similar symptoms in the past. -Discussed case with cardiology, and upon review of history and ECG findings decision was made to increase patient's metoprolol with strict hold parameters, and by the morning of discharge Mr. Brothers was no longer in a ventricular bigeminy, with telemetry showing a first degree AVB with occasional PVC's, and asymptomatic bradycardia with a HR in the 50's. He was ambulated and appeared asymptomatic and without any increase in PVC frequency. Appears that increase in BB therapy suppressed his PVCs and bigeminy. -ECHO was checked and ruled out structural cardiac defects and any evidence of acute ischemia, and patient ruled out for ACS with serial cardiac biomarkers. Mr. Brothers will be discharged with a 48 hour Holter monitor for review, and with recommendations for close outpatient cardiology follow-up. Other than BB titration, discussion was also had regarding potential for antiarrhythmic therapy vs EP study with consideration for subsequent ablation if needed in the future. Of note, TSH was minimally elevated at 5 but with a normal FT4, which may be related to acute illness or subclinical hypothyroidism - doubt as etiology for above. (2) CAD (coronary artery disease): Currently without any evidence of ischemia by review of ECG, and initial troponin appears negative. History is not typical for ACS. Ruled out with serial cardiac biomarkers as above. Continue BB, ASA, and high potency statin. (3) HTN (hypertension): Continue BB, combination ARB and thiazide therapy. (4) CKD (chronic kidney disease): Creatinine appears at baseline. (5) DVT prophylaxis: Was maintained on SC heparin. (6) Advance directive discussed with patient: Full code as per discussion with patient at time of admission. Home Meds and New Rx's Prescriptions: New atorvastatin [Lipitor] 20 mg Tablet 20 mg PO QPM Qty: 0 RF: 0 metoprolol tartrate 25 mg Tablet 25 mg PO Q12H Qty: 60 RF: 0 Continued bupropion HCl 150 MG tablet extended release 12 hr 150 mg PO BID RF: 0 aspirin [Aspirin Low Dose] 81 MG tablet,delayed release (DR/EC) 81 mg PO DAILY RF: 0 temazepam 15 MG capsule 15 mg PO .QHS RF: 0 multivitamin 1 EACH capsule 1 tab PO DAILY RF: 0 irbesartan-hydrochlorothiazide 150-12.5 mg Tablet 1 tab PO DAILY RF: 0 fluticasone propionate 50 mcg/actuation Blister With Device 1 inh INHALATION BID RF: 0 atorvastatin 80 mg Tablet 80 mg PO .Q PM RF: 0 nitroglycerin 0.4 MG tablet, sublingual 1 tab PO PRN PRNRF: 0 Discontinued metoprolol succinate 25 mg Tablet Extended Release 24 Hr 25 mg PO DAILY RF: 0 Discharge Instructions Stand Alone Forms: Nursing Discharge Form Referrals: Ventura Keane [ NON-[facility] STAFF PHYSICIAN] - 06/07/19 9:45 am Sumeet Hernandez MD [ CONSULTING PHYSICIAN] - (The office will call you with a time and day for a follow up appointment) Activity:: No strenuous activity Equipment/Supplies:: No Equipment Needed Diet:: Low Sodium Discharge Orders Discharge Orders: Discharge Order (Routine); Ordered 06/01/19 Ordered By: Demarco Romero Other Ambulatory Orders: Holter Monitor (Outpt) (ONCE) Location: None Selected Ordered By: Demarco Romero DS: Summary Status at Discharge Functional status at discharge: independent ambulation Overall status at discharge: patient is back to baseline Mental Status: mental status grossly normal Speech and Movement: speech and movement normal Mood: congruent mood Affect: normal affect Exam Psych Mental Status: mental status grossly normal Speech and Movement: speech and movement normal Mood: congruent mood Affect: normal affect DS: Data Vitals/I&O Vitals and I&O: Vital Signs Temperature 36.0 C L 06/01/19 07:45 Temperature Source Tympanic 06/01/19 07:45 Pulse 89 06/01/19 11:35 Pulse Rhythm Regular 06/01/19 10:33 Pulse 65 05/31/19 13:20 Respiratory Rate 16 06/01/19 11:35 Respiratory Effort 06/01/19 10:33 Respiratory Depth Normal 06/01/19 10:33 Respiratory Pattern Normal 06/01/19 10:33 Blood Pressure 150/92 H 06/01/19 11:35 Blood Pressure Mean 96 05/31/19 13:16 Blood Pressure Position Supine 05/31/19 10:35 Pulse Oximetry 98 06/01/19 07:45 Oxygen Delivery Method Room Air 06/01/19 11:35 Oxygen Flow Rate 0 06/01/19 11:35 Pain Level 0 06/01/19 07:45 Comment 06/01/19 07:45 Intake & Output 05/31/19 06/01/19 06/01/19 23:59 11:59 23:59 Intake Total 240 / 250 490 / 730 240 / 730 Output Total 400 / 400 400 / 400 Balance -160 / -150 90 / 330 240 / 330 Intake: Oral 240 / 240 490 / 730 240 / 730 Output: Urine 400 / 400 400 / 400 Other: Urine Color Yellow Pale Yellow Urine Appearance Clear Clear Urine Odor None None Voiding Methods Urinal Urinal Data Completed and Pending Completed studies during hospitalization [Text1]: Exam(s) 05/31/2019 a RAD:XR portable chest AP EXAM: XR PORTABLE CHEST AP INDICATION: severe bradycardia. COMPARISON: CHEST ONE VIEW IN RAD DEPT from 01/07/2018 TECHNIQUE: 2D digital imaging was performed. FINDINGS: AP view of the chest was obtained. Heart is not enlarged. Lungs are clear and well expanded. Question spinal stimulator projected over the lower thoracic/upper lumbar region. IMPRESSION: No evidence of acute process ------- Exam(s) a US:US echocardiogram APPROVED REPORT EXAM: Comprehensive 2D, Doppler, and color-flow Echocardiogram Patient Location: ER Director Of Sales Support: SCOTT Henriquez (AE) Indications: Palpitations, CAD Left Ventricle The left ventricle is normal size. The left ventricular systolic function is normal. The left ventricular ejection fraction is within the normal range. Mild concentric left ventricular hypertrophy. There is cavity obliteration and pre- PVC beats. There is discrete upper septal wall thickening There is normal LV segmental wall motion. Could not determine diastolic function given frequency of PVCs. LVEF is 50-55%. Right Ventricle The right ventricle is normal size. The right ventricular systolic function is normal. Atria The left atrium size is normal. The right atrium size is normal. Aortic Valve Aortic valve is trileaflet. Aortic valve is thickened but has adequate excursion. There is no aortic valvular stenosis. Mild aortic regurgitation. Mitral Valve The mitral valve is normal in structure. No evidence of mitral valve stenosis. Mild mitral regurgitation. Tricuspid Valve The tricuspid valve is normal in structure. Trace tricuspid regurgitation. Pulmonic Valve Pulmonic valve is not well visualized. Trace pulmonic regurgitation. Great Vessels The aortic root is normal in size. IVC is not well-visualized Pericardium There is no pericardial effusion. 2D Dimensions IVSd 1.1 cm M: 0.6-1.2 PWd 1.1 cm M: 0.6 - 1.2 LVDd 4.2 cm M: 4.2 - 5.9 LVDs 3.3 cm M: 2.5 - 4.0 Aortic Root 3.5 cm M: 3.1 - 3.7 Left Atrium 3.3 cm M: 3.0 - 4.0 LVOT 1.9 cm (M/F) 1.5-2.5 Ascending Aorta 3.7 cm M: 2.6 - 3.4 FS 22.5 % LV Diastology E/A Ratio 0.5 LAT E' 0.1 (<0.1 m/s) LV E/e LAT 5.8 (>14) Aortic Valve LVOT Peak Rusty. 1.5 m/s LVOT Peak Gr. 9.3 mmHg LVOT Mean Gr. 4.2 mmHg LVOT VTI 0.3 m AoV Peak Rusty. 1.7 (0.5-1.3 m/s) AoV Mean Rusty. 1.1 m/s AI PHT 1471.8 msec AO Peak GR. 11.5 mmHg AO Mean GR. 1.1 (<5 mmHg) AO VTI 0.3 (0.18-0.25 m) DAQUAN (VTI) 1.3 (2.5-4.5 cm2) Mitral Valve MV E Max Rusty. 0.4 (0.4-1.3 m/s) MV A Velocity 0.8 (0.4-1.3 m/s) E/A Ratio 0.6 MV Decel. Time 244.5 (160-240 msec) MV PHT 70.9 msec MVA PHT 3.1 cm2 Pulmonary Valve PV Peak Velocity 0.8 (0.5-1.5 m/s) Tricuspid Valve TR P. Velocity 2.2 m/s TR P. Gradient 18.8 mmHg Conclusion Image quality was limited due to frequent PVCs Left Ventricle : The left ventricle is normal size. Mild concentric left ventricular hypertrophy. There is cavity obliteration and pre-PVC beats. There is discrete upper septal wall thickening. Could not determine diastolic function given frequency of PVCs. There is normal LV segmental wall motion. LVEF is 50-55%. Right Ventricle : The right ventricle is normal size. The right ventricular systolic function is normal. Atria : The left atrium size is normal. The right atrium size is normal. Aortic Valve : Aortic valve is trileaflet. Aortic valve is thickened but has adequate excursion. Mild aortic regurgitation. There is no aortic valvular stenosis. Mitral Valve : The mitral valve is normal in structure. Mild mitral regurgitation. No evidence of mitral valve stenosis. Tricuspid Valve : The tricuspid valve is normal in structure. Trace tricuspid regurgitation. Pulmonic Valve : Trace pulmonic regurgitation. Great Vessels : IVC is not well-visualized There is no prior echocardiogram available for comparison Labs on day of discharge: Labs from last 24 hours 06/01/19 06/01/19 05/31/19 06:35 06:35 19:13 WBC 6.08 D RBC 4.73 Hgb 14.1 Hct 41.8 MCV 88.4 MCH 29.8 MCHC 33.7 RDW 13.2 Plt Count 166 MPV 10.5 Immature Gran % 0.3 Neutrophils % 60.4 Lymphocytes % 29.4 Monocytes % 8.1 Eosinophils % 1.5 Basophils % 0.3 Absolute Neutrophils 3.67 Absolute Lymphocytes 1.79 Absolute Monocytes 0.49 Absolute Eosinophils 0.09 Absolute Basophils 0.02 Sodium 136 Potassium 4.0 Chloride 102 Carbon Dioxide 27.3 Anion Gap 6.7 BUN 25 H Creatinine 1.63 H Estimated GFR/1.73 m2 41.02 Glucose 115 H Calcium 8.8 Magnesium 1.9 Troponin I < 0.05 05/31/19 16:00 WBC RBC Hgb Hct MCV MCH MCHC RDW Plt Count MPV Immature Gran % Neutrophils % Lymphocytes % Monocytes % Eosinophils % Basophils % Absolute Neutrophils Absolute Lymphocytes Absolute Monocytes Absolute Eosinophils Absolute Basophils Sodium Potassium Chloride Carbon Dioxide Anion Gap BUN Creatinine Estimated GFR/1.73 m2 Glucose Calcium Magnesium Troponin I < 0.05 [facility] Medical History CAD (coronary artery disease) (Chronic) CKD (chronic kidney disease) (Acute) Depression (Chronic) History of non-ST elevation myocardial infarction (NSTEMI) (Acute) November 2017 HTN (hypertension) with goal to be determined (Acute) Surgical History History of revision of total replacement of right knee joint (Acute) Right TKA - Preeti (2003) Two-stage revision for infection -[place] (2008) S/P ORIF (open reduction internal fixation) fracture (Acute) Right distal femur fracture Social History Smoking/Tobacco Use Status: Former Tobacco Use Alcohol Intake: former Substance use type: does not use Do you feel safe at home: Yes Do you feel safe in your relationship?: Yes Additional Social history: Patient is , and together they had one child who . He does have grandchildren. 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 Previously retired to [place] prior to moving to [place] 3 years ago. Prior history of tobacco, quit 25 years ago. Prior history of EtOH use, last used 40 years ago.
[2019-06-01 14:42] VITALS: PULSE 52
--- NOTE | 2019-06-01 15:23 | PDOC.CMPRO ---
Care Management Progress Note Tra was sitting in his chair when CM met with him. He anticipated discharging soon and verbalized understanding of his discharge plan.
== END 2019-06-01 16:33 | disposition home or self-care (01) ==
LOC: ER 13:03 → MS 15:02
PROVIDERS: Admitting Provider Internal Medicine; Emergency Provider Student in an Organized Health Care Education/Training Program; PCP Family Medicine; Visit Provider Internal Medicine
DX: I49.8 Other specified cardiac arrhythmias (principal); I49.3 Ventricular premature depolarization; I25.10 Atherosclerotic heart disease of native coronary artery without angina pectoris; N18.9 Chronic kidney disease, unspecified; I12.9 Hypertensive chronic kidney disease with stage 1 through stage 4 chronic kidney disease, or unspecified chronic kidney disease; F32.9 Major depressive disorder, single episode, unspecified; I08.0 Rheumatic disorders of both mitral and aortic valves; I25.2 Old myocardial infarction; Z95.5 Presence of coronary angioplasty implant and graft; Z23 Encounter for immunization
CPT/HCPCS: 36415; 80048; 80053; 93005; 93306; 99215; 99217; 99219; 99254; 99285; 71045; 83735; 84439; 84443; 84484; 85025; 85610; 85730; 93010; 93225; G0378; J1644

== ENCOUNTER 2019-06-04 12:38 | Outpatient (CLI) | payer OTHER, SELFPAY ==
--- NOTE | 2019-06-07 08:31 | W.HOLTRPT ---
Holter Monitor Report Holter Monitor Note: This is a 48-hour Holter monitor worn for the indication of palpitations and frequent PVCs. ?The predominant rhythm was normal sinus. Minimum heart rate 48 bpm, maximal heart rate 77 bpm, mean heart rate 57 bpm. ?There were no episodes of SVT. There were rare (less than 1%) premature atrial contractions with 3 runs of 3 PACs in a row. ?There are no episodes of ventricular tachycardia. There were rare (less than 1%) ventricular ectopic beats. The there was one run of multiple ectopic beats together (4 beats at a rate of 107). There was one couplet. ?There were no episodes of atrial fibrillation, no episodes of high degree heart block, no pauses greater than 3 seconds.
== END 2019-06-04 12:58 ==
PROVIDERS: PCP Family Medicine; Visit Provider Internal Medicine
DX: R00.2 Palpitations (principal); I49.3 Ventricular premature depolarization; I49.1 Atrial premature depolarization
CPT/HCPCS: 93226

== ENCOUNTER 2019-06-07 08:31 | Outpatient (CLI) | payer OTHER, SELFPAY | END 2019-06-07 08:51 | PROVIDERS: PCP Family Medicine; Referring Provider Family Medicine; Visit Provider Internal Medicine Cardiovascular Disease | DX: R00.2 Palpitations (principal); I49.3 Ventricular premature depolarization; I49.1 Atrial premature depolarization | CPT/HCPCS: 93227 ==

== ENCOUNTER 2019-08-12 08:00 | Outpatient (RCR) | payer SELFPAY ==
--- NOTE | 2019-07-20 11:06 | PR3E_ITS ---
78 year old male who started the Cardiac Rehab maintenance phase after completing the Phase 2 program for NSTEMI s/p PCI in November 2017 and more recently diagnosed with ventricular bigeminy (05/2019), thereafter medication changed from metoprolol to acebutolol. PMH: cardiomyopathy (recent EF 64%), HTN, HLD, CKD stage 3, carotid stenosis (mild), former smoker (quit 1999) First day of maintenance program was 07/20/19- Resting BP 169/98 w/ HR 53 bpm. Weight 219.6lbs, Ht 71in.Tolerated 23 minutes of exercise using treadmill, NuStep, and UBE. HR w/ exercise ranged 54-63, BP ranged 151-164/70-91. KITTY RPE ratings appropriate at 11-13 per activity. plans to continue exercising regularly with our program, two days per week at 8am. We will continue to monitor, guide, and progress him as tolerated.
== END 2019-08-17 23:59 | disposition home or self-care (01) ==
LOC: CR 08:00
PROVIDERS: PCP Family Medicine; Visit Provider Family Medicine
DX: Z51.89 Encounter for other specified aftercare (principal)

== ENCOUNTER 2019-09-16 08:00 | Outpatient (RCR) | payer SELFPAY | END 2019-09-17 23:59 | disposition home or self-care (01) | LOC: CR 08:00 | PROVIDERS: PCP Family Medicine; Visit Provider Family Medicine | DX: Z51.89 Encounter for other specified aftercare (principal) ==

== ENCOUNTER 2019-09-28 12:58 | Outpatient (RCR) | payer SELFPAY | END 2019-10-16 23:59 | disposition home or self-care (01) | LOC: CR 12:58 | PROVIDERS: PCP Family Medicine; Visit Provider Family Medicine | DX: Z51.89 Encounter for other specified aftercare (principal) ==

== ENCOUNTER 2019-10-26 08:00 | Outpatient (RCR) | payer SELFPAY | END 2019-11-16 23:59 | disposition home or self-care (01) | LOC: CR 08:00 | PROVIDERS: PCP Family Medicine; Visit Provider Family Medicine | DX: Z51.89 Encounter for other specified aftercare (principal) ==

== ENCOUNTER 2020-06-26 14:11 | Outpatient (CLI) | payer OTHER, SELFPAY ==
--- NOTE | 2020-06-26 14:00 | DI.RAD_ITS ---
EXAM: XR WRIST LT COMPLETE CLINICAL HISTORY: L thumb pain TECHNIQUE: COMPARISON: No exams were available for comparison FINDINGS: Three views were obtained. There is slight ulnar minus variation. The carpal alignment otherwise ap pears within normal limits. There is mild narrowing of the cartilaginous joint space at the greater multangular 1st metacarpal joint with mild marginal osteophyte formation. Mild degenerative changes also noted at the radioulnar joint. 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 RADIATION DOSE DELIVERED: Total DLP
== END 2020-06-26 14:31 ==
PROVIDERS: PCP Family Medicine; Referring Provider Family Medicine; Visit Provider Student in an Organized Health Care Education/Training Program
DX: M18.12 Unilateral primary osteoarthritis of first carpometacarpal joint, left hand (principal); M19.032 Primary osteoarthritis, left wrist; M65.4 Radial styloid tenosynovitis [de Quervain]; M79.645 Pain in left finger(s); I12.9 Hypertensive chronic kidney disease with stage 1 through stage 4 chronic kidney disease, or unspecified chronic kidney disease; N18.9 Chronic kidney disease, unspecified
CPT/HCPCS: 20550; 99203; 99214; 73110; J1030

== ENCOUNTER 2020-07-10 15:00 | Outpatient (CLI) | payer OTHER, SELFPAY ==
--- NOTE | 2020-07-10 14:45 | DI.RAD_ITS ---
EXAM: XR KNEE LT 3V AP,LAT,GUSTAVO CLINICAL HISTORY: L knee pain. TECHNIQUE: 2D digital imaging was performed. COMPARISON: CR XR knee LT 3V AP,lat,gustavo from 03/22/2019 FINDINGS: BONES: No acute fracture is present. No bony destructive lesion is seen. JOINTS: There is severe narrowing of the patellofemoral joint. There is mild periarticular spurring. There is moderate to severe narrowing of the lateral femoral tibial joint causing mild valgus angul ation at the knee. Periarticular spurring is seen. No joint effusion is seen. SOFT TISSUE: Vascular calcifications. 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 DATA REPOSITORY: RADIATION DOSE DELIVERED:
== END 2020-07-10 15:20 ==
PROVIDERS: PCP Family Medicine; Referring Provider Family Medicine; Visit Provider Student in an Organized Health Care Education/Training Program
DX: M17.12 Unilateral primary osteoarthritis, left knee; I12.9 Hypertensive chronic kidney disease with stage 1 through stage 4 chronic kidney disease, or unspecified chronic kidney disease; N18.9 Chronic kidney disease, unspecified
CPT/HCPCS: 20610; 73562; 99214; J1040

== ENCOUNTER 2020-09-21 08:40 | Outpatient (REF) | payer OTHER, SELFPAY ==
[2020-09-21 13:34] LABS: HGB 13.5 g/dL (13.5-17.5); MCH 29.8 pg (27.0-33.0); MCHC 32.1 % (32.0-36.0); MCV 92.7 fL (80-95); MPV 10.4 fL (8.0-11.0); Platelet Count 148 10^3/uL (130-400); RBC 4.53 10^6/uL (4.36-5.78); RDW 13.2 % (11.8-14.1); RDW-SD 45.5 fL; WBC 5.05 10^3/uL (4.4-10.8)
[2020-09-21 13:55] LABS: ALT 38 U/L (16-63); AST 25 U/L (15-37); Albumin 3.6 g/dL (3.4-5.0); Alkaline Phosphatase 89 U/L (46-116); Anion Gap 9.7 mmol/L (3-11); BUN 28 mg/dL (7-18); Bilirubin, Total 0.7 mg/dL (0.2-1.0); CO2 26.3 mmol/L (21.0-32.0); CREATININE 1.5 mg/dL (0.70-1.30); Calculated LDL 59 mg/dL (<100); Chloride 103 mmol/L (98-107); Cholesterol 130 mg/dL (<200); Estimated GFR 45.03 (mL/min/1.73m2); Glucose 80 mg/dL (74-106); HDL Cholesterol 60 mg/dL (40-60); Potassium 4.8 mmol/L (3.5-5.1); Sodium 139 mmol/L (136-145); Total Protein 6.3 g/dL (6.4-8.2); Triglyceride 59 mg/dL (<150)
[2020-09-21 22:27] LABS: PSA, Screening 0.4 ng/mL (0.0-6.5)
== END 2020-09-21 08:41 | disposition home or self-care (01) ==
LOC: NCHCN 08:40
PROVIDERS: PCP Family Medicine; Visit Provider Family Medicine
DX: E78.5 Hyperlipidemia, unspecified (principal); I10 Essential (primary) hypertension; Z12.5 Encounter for screening for malignant neoplasm of prostate
CPT/HCPCS: 80053; 80061; 84153; 85027

== ENCOUNTER 2021-01-08 16:06 | Emergency (ER) | payer OTHER, SELFPAY ==
[2021-01-08 16:14] VITALS: BP 134/82; PULSE 77; RESP 16; TEMP 36.3; O2SAT 96
--- NOTE | 2021-01-08 16:15 | DI.RAD_ITS ---
Exam(s) XR FINGER LT INDEX EXAM: XR FINGER LT INDEX CLINICAL HISTORY: pain, tabe saw injury. TECHNIQUE: 2D digital imaging was performed. COMPARISON: None. FINDINGS: There has been amputation of portion of the soft tissues of the distal phalanx as well as fracture of a portion a small portion of the tuft. No foreign body is seen. There are mild degenerative change s. IMPRESSION: Tuft amputation. DATA REPOSITORY: RADIATION DOSE DELIVERED:
--- NOTE | 2021-01-08 16:49 | ED.GENADUL_ITS ---
Discharge Plan Disposition Patient Disposition: HOME Condition: Improving Discharge Details Clinical Impression: Laceration of left index finger, Fracture of distal phalanx of left index finger Primary Care Provider: Karo Otero ED Provider: Dev Barnett Home Meds and New Rx's Prescriptions: New cephalexin 500 mg capsule 500 mg PO TID 3 Days Qty: 9 RF: 0 Continued bupropion HCl 150 MG tablet extended release 12 hr 150 mg PO BID RF: 0 aspirin [Aspirin Low Dose] 81 MG tablet,delayed release (DR/EC) 81 mg PO DAILY RF: 0 temazepam 15 MG capsule 15 mg PO .QHS RF: 0 multivitamin 1 EACH capsule 1 tab PO DAILY RF: 0 irbesartan-hydrochlorothiazide 150-12.5 mg Tablet 1 tab PO DAILY RF: 0 fluticasone propionate 50 mcg/actuation Blister With Device 1 inh INHALATION BID RF: 0 atorvastatin 80 mg Tablet 80 mg PO .Q PM RF: 0 nitroglycerin 0.4 MG tablet, sublingual 1 tab PO PRN PRNRF: 0 Discharge Instructions Instructions: Finger Fracture (ED), Finger Laceration (ED) Additional Instructions: Leave splint and dressing in place until seen by orthopedics. Please take Keflex as prescribed. Return if develop a fever, foul-smelling discharge from the wound, redness streaking up the arm, or any other acute concerns. Continue any regular medications. Tylenol and/or ibuprofen as needed for pain. Elevate above the level of the heart to reduce pain and swelling. Medical Decision Making 80-year-old male was using a table saw when he injured the distal tip of his left index finger. Patient consented for digital block which was performed with a 50: 50 mix of lidocaine and Marcaine. Referred for x-ray which reveals subtle comminution to the distal phalanx. Patient., Explored in a bloodless field, no foreign body seen. Gently closed with 2 interrupted Prolene sutures, covered in impregnated gauze, and placed in splint. Will refer to orthopedics for follow- up for definitive management. Will place on Keflex given open bony injury. Patient stable for discharge to home. HPI General Mode of arrival: ambulatory . Date/Time Provider Initiated Documentation: 01/08/21 16:19 . Limitations to Documentation: no limitations . Information obtained by: patient . History of Present Illness 80 year old M presents to the emergency department with the chief complaint of Left index finger tablesaw injury, described as moderate, Quality is described as dull, and is localized to the left and upper extremity. Patient reports no radiation. Patient started experiencing this minute(s) and it has been constant. No relieving factors improve symptom(s), No exacerbating factors reported . Patient notes other (Able to feel at tip of finger); denies weakness. Patient did receive the following treatments prior to arrival, none Related Data Home Medications Medication Instructions Recorded Confirmed aspirin [Aspirin Low Dose] 81 mg PO DAILY 11/18/17 01/08/21 bupropion HCl 150 mg PO BID 11/18/17 01/08/21 multivitamin 1 tab PO DAILY 11/18/17 01/08/21 temazepam 15 mg PO .QHS 11/18/17 01/08/21 nitroglycerin 1 tab PO PRN PRN 01/07/18 01/08/21 atorvastatin 80 mg PO .Q PM 05/31/19 01/08/21 fluticasone propionate 1 inh INHALATION BID 05/31/19 01/08/21 irbesartan-hydrochlorothiazide 1 tab PO DAILY 05/31/19 01/08/21 cephalexin 500 mg PO TID 3 Days #9 cap 01/08/21 Previous Rx's Medication Instructions Recorded cephalexin 500 mg PO TID 3 Days #9 cap 01/08/21 Allergies Allergy/AdvReac Type Severity Reaction Status Date / Time oxycodone AdvReac Intermediate Nausea Unverified 01/08/21 16:20 pollen Allergy Uncoded 01/08/21 16:20 General Stated Complaint: Laceration JAMEE: 4 Review of Systems Narrative: Tetanus up-to-date. Able to feel distal tip. No other injury. [facility] Medical History (Updated 01/08/21 @ 17:15 by Dev Barnett MD) CAD (coronary artery disease) CKD (chronic kidney disease) Depression History of non-ST elevation myocardial infarction (NSTEMI) November 2017 HTN (hypertension) with goal to be determined Surgical History History of revision of total replacement of right knee joint Right TKA - Preeti (2003) 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) S/P ORIF (open reduction internal fixation) fracture Right distal femur fracture Social History Smoking/Tobacco Use Status: Former Tobacco Use Smoking risk assessment performed?: Yes Alcohol Intake: former Substance use type: does not use Do you feel safe at home: Yes Do you feel safe in your relationship?: Yes Additional Social history: Patient is , and together they had one child who . He does have grandchildren. 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 Previously retired to [place] prior to moving to [place] 3 years ago. Prior history of tobacco, quit 25 years ago. Prior history of EtOH use, last used 40 years ago. Exam Narrative Exam Narrative: GEN: awake, alert, oriented 3. Pleasant, well groomed, interactive. HEAD: Normocephalic, atraumatic EXT: Full ROM, macerated distal tip of left index finger, nailbed is intact, nail distally avulsed approximately half-way. The volar pad of the left index finger is macerated but the patient does have sensation intact. Two-point discrimination of approximately 1 cm. Neuro: Grossly normal neurologic exam, conversant, interactive. Psych: Speech fluent, thoughts congruent, affect normal Course Vital Signs Vital signs: Vital Signs Temperature 36.3 C L 01/08/21 16:14 Pulse 77 01/08/21 16:14 Respiratory Rate 16 01/08/21 16:14 Blood Pressure 134/82 01/08/21 16:14 Pulse Oximetry 96 01/08/21 16:14 Temperature 36.3 C L 01/08/21 16:14 Temperature Source Oral 01/08/21 16:14 Pulse 77 01/08/21 16:14 Respiratory Rate 16 01/08/21 16:14 Respiratory Effort Non-Labored 01/08/21 16:19 Blood Pressure 134/82 01/08/21 16:14 Blood Pressure Position Sitting 01/08/21 16:14 Pulse Oximetry 96 01/08/21 16:14 Oxygen Delivery Method Room Air 01/08/21 16:14 Oxygen Flow Rate 0 01/08/21 16:14 Pain Level 1 01/08/21 16:14 Procedures Laceration Laceration 1: Site: hand Side (If applicable): right Description: irregular Depth: involves muscle layer Local Anesthetic: Lidocaine 1% Pre-repair: wound explored and irrigated extensively Skin layer closed with: other (Prolene) Size (cm): 4-0
[2021-01-08] MEDS: Cephalexin 500 MG CAP, 4 CAPS/BTL PO (17:30)
--- NOTE | 2021-01-08 17:42 | DI.VRAD_ITS ---
PROCEDURE INFORMATION: Exam: XR Left Finger(s) Exam date and time: 01/08/2021 5:01 PM Age: 80 years old Clinical indication: Pain; Finger(s); Patient HX: Table saw left index TECHNIQUE: Imaging protocol: XR Left fingers. Views: Minimum 2 views. COMPARISON: CR XR WRIST LT COMPLETE 06/26/2020 2:17 PM FINDINGS: Bones/joints: Left index finger soft tissue deformity consistent with table saw laceration and adjacent distal tuft avulsion on the ulnar side of the left 2nd distal phalanx. Soft tissues: Additional injury to the nail. IMPRESSION: Left 2nd digit distal tuft avulsion adjacent to the soft tissue laceration and nail injury. Dictated and Authenticated by: Oseas Quintana MD. Ordering:NEAL Méndez MD
== END 2021-01-08 17:25 | disposition home or self-care (01) ==
PROVIDERS: Emergency Provider Emergency Medicine; PCP Family Medicine
DX: S61.211A Laceration without foreign body of left index finger without damage to nail, initial encounter (principal); S62.631B Displaced fracture of distal phalanx of left index finger, initial encounter for open fracture; W31.2XXA Contact with powered woodworking and forming machines, initial encounter
CPT/HCPCS: 12001; 99283; 73140

== ENCOUNTER → 2021-01-24 08:54 | Outpatient (BNVA) | payer OTHER, SELFPAY | PROVIDERS: PCP Family Medicine; Referring Provider Family Medicine; Visit Provider Physician Assistant | DX: M65.4 Radial styloid tenosynovitis [de Quervain] (principal) | CPT/HCPCS: 20550; 99213; J1030 ==

== ENCOUNTER 2021-02-13 10:00 | Outpatient (RCR) | payer SELFPAY ==
[2021-01-16 14:00] VITALS: BP 136/84; PULSE 82
[2021-01-18 13:52] VITALS: BP 130/74; PULSE 79; O2SAT 95
[2021-01-23 13:44] VITALS: BP 96/62; PULSE 83
[2021-01-23 14:01] VITALS: BP 109/67
[2021-01-25 13:43] VITALS: BP 139/77; PULSE 80
[2021-01-30 13:44] VITALS: BP 127/76; PULSE 75
[2021-02-01 13:48] VITALS: BP 136/87; PULSE 73
[2021-02-06 13:44] VITALS: BP 159/83; PULSE 74
[2021-02-08 09:47] VITALS: BP 145/92; PULSE 72
[2021-02-13 09:56] VITALS: BP 158/90; PULSE 67
== END 2021-02-14 23:59 | disposition home or self-care (01) ==
LOC: CR 10:00
PROVIDERS: PCP Family Medicine; Visit Provider Family Medicine
DX: Z51.89 Encounter for other specified aftercare (principal)

== ENCOUNTER → 2021-02-21 08:21 | Outpatient (BNVA) | payer OTHER, SELFPAY | PROVIDERS: PCP Family Medicine; Referring Provider Family Medicine; Visit Provider Physician Assistant Surgical | DX: M65.4 Radial styloid tenosynovitis [de Quervain] (principal) | CPT/HCPCS: 20600; J1030 ==

== ENCOUNTER → 2021-03-02 10:35 | Outpatient (BNVA) | payer OTHER, SELFPAY | PROVIDERS: PCP Family Medicine; Referring Provider Family Medicine; Visit Provider Student in an Organized Health Care Education/Training Program | DX: M17.12 Unilateral primary osteoarthritis, left knee (principal); M21.42 Flat foot [pes planus] (acquired), left foot | CPT/HCPCS: 20610; 99214; J1040 ==

== ENCOUNTER 2021-03-13 09:00 | Outpatient (RCR) | payer OTHER, SELFPAY ==
[2021-02-15 00:27] VITALS: BP 158/90; PULSE 67
[2021-02-15 10:02] VITALS: BP 157/94; PULSE 68
[2021-02-20 08:50] VITALS: BP 145/85; PULSE 73; O2SAT 93
[2021-02-22 10:11] VITALS: BP 151/87; PULSE 69
[2021-02-27 08:57] VITALS: BP 151/85; PULSE 71
[2021-03-01 09:00] VITALS: BP 132/80; PULSE 74
[2021-03-06 09:18] VITALS: BP 165/96; PULSE 68
[2021-03-08 09:16] VITALS: BP 168/92; PULSE 66
[2021-03-13 09:03] VITALS: BP 163/90; PULSE 69
== END 2021-03-17 23:59 | disposition home or self-care (01) ==
LOC: CR 09:00
PROVIDERS: PCP Family Medicine; Visit Provider Family Medicine
DX: Z51.89 Encounter for other specified aftercare (principal)

== ENCOUNTER 2021-04-17 09:00 | Outpatient (RCR) | payer SELFPAY ==
[2021-03-18 00:13] VITALS: BP 163/90; PULSE 69
[2021-03-20 09:06] VITALS: BP 142/91; PULSE 53
[2021-03-22 08:49] VITALS: BP 148/92; PULSE 71; O2SAT 93
[2021-04-03 09:30] VITALS: BP 113/68; PULSE 89
[2021-04-05 09:05] VITALS: BP 147/81; PULSE 77
[2021-04-10 09:22] VITALS: BP 152/87; PULSE 71
[2021-04-12 09:02] VITALS: BP 124/76; PULSE 86
[2021-04-17 09:09] VITALS: BP 159/77; PULSE 80
== END 2021-04-17 23:59 | disposition home or self-care (01) ==
LOC: CR 09:00
PROVIDERS: PCP Family Medicine; Visit Provider Family Medicine
DX: Z51.89 Encounter for other specified aftercare (principal)

== ENCOUNTER 2021-05-02 13:26 | Outpatient (REF) | payer OTHER, SELFPAY ==
[2021-05-02 21:49] LABS: TSH (W/Ref FT4) 2.44 uIU/mL (0.36-3.74)
[2021-05-11 15:00] LABS: Testosterone, Free 0.37 ng/dL (2.88-10.5); Testosterone, Total 22 ng/dL (240-950)
== END 2021-05-02 13:27 | disposition home or self-care (01) ==
LOC: NCHCN 13:26
PROVIDERS: PCP Family Medicine; Visit Provider Family Medicine
DX: M62.81 Muscle weakness (generalized) (principal)
CPT/HCPCS: 84402; 84403; 84443

== ENCOUNTER 2021-05-03 09:08 | Emergency (ER) | payer OTHER, SELFPAY ==
[2021-05-03] VITALS (15 sets, daily range): BP systolic 154; BP diastolic 90; PULSE 65–101; RESP 14–23; TEMP 36.1; O2SAT 96–99
--- NOTE | 2021-05-03 09:00 | RT.EKG_ITS ---
APPROVED REPORT Exam: Resting ECG Reason for Exam: CHEST PAIN Patient Location: E HR:99 bpm ECG Measurements Heart Rate 99 AXIS MS 239 P 23 QRSd 84 QRS -42 QT 342 T 42 QTc 440 Conclusion Sinus rhythm...normal P axis, V-rate 60- 99 Prolonged MS interval...MS >215, V-rate 91-120 Left anterior fascicular block...axis(240,-40), init forces inf
--- NOTE | 2021-05-03 09:33 | DI.CT_ITS ---
Exam(s) CT CHEST PE CTA EXAM: CT CHEST PE CTA CLINICAL HISTORY: back pain, chest pain. TECHNIQUE: Imaging Protocol: Axial CT angiography was performed with multi-slice acquisition and mu lti-planar and/or 3D reconstructions. CONTRAST MATERIAL: Intravenous: Omnipaque 350 Contrast volume:100 mL COMPARISON: No exams were available for comparison FINDINGS: Tracheobronchial tree: Patent where visualized. Pulmonary parenchyma: No consolidation or dominant measurable mass. Mild centrilobular emphysema. Th ere is a calcified granuloma in the left upper lobe. Dependent atelectasis is seen in the bases. Pulmonary Arteries: No evidence of filling defect to suggest pulmonary emboli. Mediastinum and Charlene: No dominant adenopathy or fluid collection. Visualized thyroid gland: Unremarkable. Pleura: No effusion or pneumothorax. Heart: Mild cardiomegaly. Coronary artery calcification and/or vascular stents. No pericardial effu rashard. Aorta: Thoracic aorta non-dilated. No evidence of dissection. Atherosclerosis. Upper abdomen: There is a 5 mm calcification which appears to lie in the neck or cystic duct of the gallbladder. No biliary ductal dilatation. Right renal cysts are present. Soft tissues: Unremarkable. Bones: Within normal limits. IMPRESSION: 1. No evidence of pulmonary embolism, thoracic aortic dissection or aneurysm. 2. Calcification in the right upper quadrant of the abdomen which appears to lie within the neck or c ystic duct of the gallbladder. Gallbladder ultrasound may be obtained if clinically appropriate. 3. Mild centrilobular emphysema. 4. Results of this exam have been verbally communicated with provider. RADIATION DOSE DELIVERED: 625.83mGy.cm Total DLP DATA REPOSITORY: All CT scans at this facility are submitted to the National Radiology Data Registry (NRDR) Dose Index Registry (DIR) with the [employer] (ACR). RADIATION OPTIMIZATION: All CT scans at this facility use at least one of these dose optimization te chniques: automated exposure control; mA and/or kV adjustment per patient size (includes targeted exa ms where dose is matched to clinical indication); or iterative reconstruction.
[2021-05-03 09:48] LABS: Abs Immature Grans 0.04 10^3/uL (0.0-0.06); Absolute Basophil Count 0.07 10^3/uL (0.0-0.2); Absolute Eosinophil Count 0.19 10^3/uL (0.0-0.7); Absolute Lymphocyte Count 2.72 10^3/uL (1.2-3.4); Absolute Neutrophil Count 4.34 10^3/uL (1.2-6.7); Basophils % 0.9; Eosinophils % 2.3; HCT 44.3 % (40.0-50.0); HGB 14.2 g/dL (13.5-17.5); Immature Grans % 0.5; Lymphocytes % 33.3; MCH 28.9 pg (27.0-33.0); MCHC 32.1 % (32.0-36.0); MCV 90.2 fL (80-95); MPV 9.5 fL (8.0-11.0); Monocytes % 9.8; Neutrophils % 53.2; Nucleated RBC 0 %; Platelet Count 193 10^3/uL (130-400); RBC 4.91 10^6/uL (4.36-5.78); RDW 13.5 % (11.8-14.1); RDW-SD 44.6 fL; WBC 8.16 10^3/uL (4.4-10.8)
[2021-05-03 10:00] LABS: Magnesium 1.7 mg/dL (1.8-2.4)
[2021-05-03 10:12] LABS: ALT 30 U/L (16-63); AST 26 U/L (15-37); Albumin 3.8 g/dL (3.4-5.0); Alkaline Phosphatase 106 U/L (46-116); Anion Gap 10.4 mmol/L (3-11); BUN 27 mg/dL (7-18); Bilirubin, Total 0.7 mg/dL (0.2-1.0); CO2 25.6 mmol/L (21.0-32.0); CREATININE 1.7 mg/dL (0.70-1.30); Chloride 101 mmol/L (98-107); Estimated GFR 38.88 (mL/min/1.73m2); Glucose 99 mg/dL (74-106); Lipase 232 U/L (73-393); Sodium 137 mmol/L (136-145); TSH 3.72 uIU/mL (0.36-3.74); Total Protein 7.5 g/dL (6.4-8.2)
--- NOTE | 2021-05-03 10:24 | W.ED.GENAD ---
Discharge Plan Disposition Patient Disposition: HOME Condition: Good Discharge Details Clinical Impression: Heart palpitations Primary Care Provider: Karo Otero ED Provider: Melissa Al Home Meds and New Rx's Prescriptions: Continued bupropion HCl 150 MG tablet extended release 12 hr 150 mg PO BID RF: 0 aspirin [Aspirin Low Dose] 81 MG tablet,delayed release (DR/EC) 81 mg PO DAILY RF: 0 multivitamin 1 EACH capsule 1 tab PO DAILY RF: 0 irbesartan-hydrochlorothiazide 150-12.5 mg Tablet 1 tab PO DAILY RF: 0 fluticasone propionate 50 mcg/actuation Blister With Device 1 inh INHALATION BID RF: 0 atorvastatin 80 mg Tablet 80 mg PO .Q PM RF: 0 loratadine 10 mg Capsule 10 mg PO DAILY RF: 0 nitroglycerin 0.4 MG tablet, sublingual 1 tab PO PRN PRNRF: 0 Discharge Instructions Instructions: Heart Palpitations (ED) Additional Instructions: Call your motor teacher tomorrow To schedule follow-up Continue on your prescribed medication Not engage in any new exertional activities until you are cleared by your motor teacher We will place an event monitor to determine if you are going into an abnormal rhythm and to monitor your heart rate Please be reevaluated with recurrent chest pain, shortness of breath, or should you have new or worsening Referrals: Karo Otero [Primary Care Provider] - Discharge Data Discharge Date/Time-TO BE ENTERED AT DEPARTURE: 05/03/21 13:30 HPI General Mode of arrival: ambulatory. Date/Time Provider Initiated Documentation: 05/03/21 09:19. Limitations to Documentation: no limitations. Information obtained by: patient. 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 When he reportedly has palpitations and tachycardia he did experience some chest tightness without pain. He denies any shortness of breath. He denies any nausea or vomiting. He did have one episode of loose stool this morning. He denies any presyncope or syncope. He denies any chest pain or swelling. He denies any exertional shortness of breath that is grossly changed in the past week. He does state that he has had some increasing exertional dyspnea over the course of the past year. He had extensive approximately 4 years ago and has not had intervention since that time. He states his last stress test was at that time. She denies any fever or chills. He denies any chest pain. Patient states from his heart attack 3 years ago he did have severe anterior chest pain. He has not had any symptoms similar to this. He states that when he was having palpitations he checked his pulse and it was in the 130s and he was unsure if it was irregular. Patient is currently asymptomatic reportedly Related Data Home Medications Medication Instructions Recorded Confirmed aspirin [Aspirin Low Dose] 81 mg PO DAILY 11/18/17 05/03/21 bupropion HCl 150 mg PO BID 11/18/17 05/03/21 multivitamin 1 tab PO DAILY 11/18/17 05/03/21 nitroglycerin 1 tab PO PRN PRN 01/07/18 03/05/21 atorvastatin 80 mg PO .Q PM 05/31/19 05/03/21 fluticasone propionate 1 inh INHALATION BID 05/31/19 05/03/21 irbesartan-hydrochlorothiazide 1 tab PO DAILY 05/31/19 05/03/21 loratadine 10 mg PO DAILY 05/03/21 05/03/21 Allergies Allergy/AdvReac Type Severity Reaction Status Date / Time oxycodone AdvReac Intermediate Nausea Verified 05/03/21 09:15 pollen Allergy Uncoded 05/03/21 09:15 General Stated Complaint: Chest Pain JAMEE: 2 Review of Systems All systems reviewed & are unremarkable except as noted in HPI and below PFSH Medical History (Updated 05/03/21 @ 12:56 by AUTUMN Urbina) CAD (coronary artery disease) CKD (chronic kidney disease) De Quervain's tenosynovitis, right Injection: 01/24/2021 Depression History of non-ST elevation myocardial infarction (NSTEMI) November 2017 HTN (hypertension) with goal to be determined Surgical History History of revision of total replacement of right knee joint Right TKA - [place] (2003) Two-stage revision for infection -[place] (2008) S/P ORIF (open reduction internal fixation) fracture Right distal femur fracture Social History Smoking/Tobacco Use Status: Former Tobacco Use Smoking risk assessment performed?: Yes Alcohol Intake: former Substance use type: does not use Do you feel safe at home: Yes Do you feel safe in your relationship?: Yes Additional Social history: Patient is , and together they had one child who . He does have grandchildren. 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 Previously retired to [place] prior to moving to [place] 3 years ago. Prior history of tobacco, quit 25 years ago. Prior history of EtOH use, last used 40 years ago. Exam Const General: cooperative, comfortable and no acute distress Eyes Sclera: sclerae normal Resp Effort & Inspection: normal respiratory effort Auscultation: clear to auscultation bilaterally Cardio Rate: regular rate Rhythm: regular rhythm Heart Sounds: no murmurs GI Inspection: normal to inspection Auscultation: normal bowel sounds Skin General skin exam: no rashes or lesions noted Neuro General: patient alert, patient oriented x3 and CN's II-XI intact bilaterally Cognition: normal cognition Speech: speech normal Extrem Other: No calf swelling or tenderness appreciated Course Vital Signs Vital signs: Vital Signs Temperature 36.1 C L 05/03/21 09:11 Pulse 101 H 05/03/21 09:11 Respiratory Rate 14 05/03/21 09:11 Blood Pressure 154/90 H 05/03/21 09:11 Pulse Oximetry 99 05/03/21 09:11 Temperature 36.1 C L 05/03/21 09:11 Temperature Source Skin 05/03/21 09:11 Pulse 101 H 05/03/21 09:11 Respiratory Rate 14 05/03/21 09:19 Respiratory Effort 05/03/21 09:22 Respiratory Depth Normal 05/03/21 09:19 Respiratory Pattern Normal 05/03/21 09:19 Blood Pressure 154/90 H 05/03/21 09:11 Blood Pressure Position Supine 05/03/21 09:11 Pulse Oximetry 99 05/03/21 09:11 Oxygen Delivery Method Room Air 05/03/21 09:11 Oxygen Flow Rate 0 05/03/21 09:11 Lab/Test Results Lab/Test Results: Laboratory Tests Range/Units 05/03/21 05/03/21 05/03/21 09:15 09:15 09:15 WBC (4.4-10.8) 10^3/uL 8.16 RBC (4.36-5.78) 10^6/uL 4.91 Hgb (13.5-17.5) g/dL 14.2 Hct (40.0-50.0) % 44.3 MCV (80-95) fL 90.2 MCH (27.0-33.0) pg 28.9 MCHC (32.0-36.0) % 32.1 RDW (11.8-14.1) % 13.5 Plt Count (130-400) 10^3/uL 193 MPV (8.0-11.0) fL 9.5 Immature Gran % 0.5 Neutrophils % 53.2 Lymphocytes % 33.3 Monocytes % 9.8 Eosinophils % 2.3 Basophils % 0.9 Nucleated RBC % % 0 Absolute Neutrophils (1.2-6.7) 10^3/uL 4.34 Absolute Lymphocytes (1.2-3.4) 10^3/uL 2.72 Absolute Monocytes (0.1-0.8) 10^3/uL 0.80 Absolute Eosinophils (0.0-0.7) 10^3/uL 0.19 Absolute Basophils (0.0-0.2) 10^3/uL 0.07 Sodium (136-145) mmol/L 137 Potassium (3.5-5.1) mmol/L 4.0 Chloride (98-107) mmol/L 101 Carbon Dioxide (21.0-32.0) mmol/L 25.6 Anion Gap (3-11) mmol/L 10.4 BUN (7-18) mg/dL 27 H Creatinine (0.70-1.30) mg/dL 1.7 H Estimated GFR/1.73 m2 (mL/min/1.73m2) 38.88 Glucose (74-106) mg/dL 99 Calcium (8.5-10.1) mg/dL 9.0 Magnesium (1.8-2.4) mg/dL 1.7 L Total Bilirubin (0.2-1.0) mg/dL 0.7 AST (15-37) U/L 26 ALT (16-63) U/L 30 Alkaline Phosphatase (46-116) U/L 106 Total Protein (6.4-8.2) g/dL 7.5 Albumin (3.4-5.0) g/dL 3.8 Lipase (73-393) U/L 232 TSH (0.36-3.74) uIU/mL 3.72
[2021-05-03 10:45] LABS: NT-proBNP 769 pg/mL (<300)
[2021-05-03] MEDS: Omnipaque 350 MG/ML 100 ML BTL IV (10:50)
[2021-05-03 10:51] LABS: Troponin I < 0.05 ng/mL (<0.06)
--- NOTE | 2021-05-03 12:15 | RT.EKG_ITS ---
APPROVED REPORT Exam: Resting ECG Reason for Exam: repeat Patient Location: E HR:66 bpm ECG Measurements Heart Rate 66 AXIS OK 251 P 19 QRSd 88 QRS -36 QT 401 T 9 QTc 421 Conclusion Sinus rhythm...normal P axis, V-rate 60- 99 Prolonged OK interval...OK >220, V-rate 50- 90
[2021-05-03 12:50] LABS: Troponin I < 0.05 ng/mL (<0.06)
--- NOTE | 2021-06-05 09:51 | W.CARDEVENT ---
Date of service: 06/05/21 Time of Service: 09:51 Cardiac Event Recorder Referring Provider:: ER Indications:: Palpitations Cardiac Event Note: This is a 30-day event monitor ordered after a recent emergency room visit, reportedly for palpitations Predominant rhythm was sinus with a first-degree AV block. Average heart rate was 72, minimum 57, maximum 130 There was no atrial fibrillation, no high-grade AV block, no pauses greater than 3 seconds Patient symptoms corresponded to sinus rhythm as well as sinus tachycardia (rates 87-1 07) but no significant dysrhythmia
== END 2021-05-03 13:30 | disposition home or self-care (01) ==
PROVIDERS: Emergency Provider Physician Assistant; PCP Family Medicine
DX: R00.2 Palpitations (principal); R06.09 Other forms of dyspnea
CPT/HCPCS: 36415; 71275; 80053; 83690; 93005; 99285; 83735; 83880; 84443; 84484; 85025; 93010; J3490

== ENCOUNTER 2021-05-17 09:00 | Outpatient (RCR) | payer SELFPAY ==
[2021-04-18 00:19] VITALS: BP 159/77; PULSE 80
[2021-04-19 10:18] VITALS: BP 156/91; PULSE 75
[2021-05-01 08:50] VITALS: BP 142/89; PULSE 80
[2021-05-03 09:22] VITALS: BP 137/82; PULSE 86
[2021-05-08 08:58] VITALS: BP 152/81; PULSE 52
[2021-05-10 10:50] VITALS: BP 146/83; PULSE 80
[2021-05-15 09:08] VITALS: BP 129/78; PULSE 81
[2021-05-17 08:48] VITALS: BP 150/84; PULSE 74
== END 2021-05-17 23:59 | disposition home or self-care (01) ==
LOC: CR 09:00
PROVIDERS: PCP Family Medicine; Visit Provider Family Medicine
DX: Z51.89 Encounter for other specified aftercare (principal)

== ENCOUNTER → 2021-05-24 13:14 | Outpatient (BNVA) | payer MEDICARE, SELFPAY | PROVIDERS: PCP Family Medicine; Referring Provider Family Medicine; Visit Provider Internal Medicine Cardiovascular Disease | DX: I25.10 Atherosclerotic heart disease of native coronary artery without angina pectoris (principal); I10 Essential (primary) hypertension; R00.2 Palpitations; Z95.818 Presence of other cardiac implants and grafts | CPT/HCPCS: 99203; 99214 ==

== ENCOUNTER 2021-05-31 01:20 | Outpatient (CLI) | payer MEDICARE, SELFPAY ==
--- NOTE | 2021-05-31 07:15 | DI.NM_ITS ---
APPROVED REPORT Exam: Pharmacologic Patient Location: Out-Patient Room/Bed: Ordering Provider:VICKIE MOYAD, Contact Number: BMI: 28.47 Baseline Rhythm: 1st Degree Heart Block Indications: SOB, FATIGUE, CAD, STENTS Medical History Medical History: CAD, HTN, Palpitations, NSTEMI, Depression, HLD, Asthma Cardiac Medications: Aspirin, Nitro SL, Atorvastatin, Irbesartan-hydrochlorothiazide Allergies: Terazosin, Oxycodone Cardiac Risk Factors: HTN, Hyperlipidemia, Smoking (former) Pretest Chest Pain Characteristics: No chest pain Exercise History: Physically active Physical Disabilities: Back, pain, foot deformity Lung Sounds: Clear to auscultation Heart Sounds: Regular Stress Test Details Test: Pharmacologic stress testing performed using 0.4 mg of regadenoson per 5 mL given IV over 10 s econds. Nuclear Acquisition: Rest Tc-99m/Stress Tc-99m 1 day Rest Isotope: Tc-99m Sestamibi. Dose: 9.7 Date: 05/31/2021 Injection Time: 1105 Stress Isotope: Tc-99m Sestamibi. Dose: 32.5 Date: 05/31/2021 Injection Time: 1250 HR Resting HR Supine: 67 bpm Max Heart Rate (APMHR): 139.304957 bpm Target HR (85% APMHR): 118.927353 bpm Max HR Achieved: 77 bpm % of APMHR: 55.40 Recovery HR: 71 bpm BP Resting BP Supine: 162/88 mmHg Max BP: 162/88 mmHg Recovery BP: 144/80 mmHg BP response to stress: Abnormal hypotensive response to stress. ECG Resting ECst degree AV block Ectopy: None Stress ECst degree AV block ST Change: No significant ST segment changes noted Arrhythmia: Fusion beat noted Recovery ECst degree AV block Recovery ST Change: No significant ST segment changes noted Recovery Arrhythmia: None Clinical Stress Symptoms: None Rate Pressure Product: 14058 Stress ECG Conclusion 1. The resting electrocardiogram showed sinus rhythm, poor R wave progression unable to exclude old a nteroseptal NH 2. Patient underwent pharmacologic stress with regadenoson. Peak heart rate achieved was 55% of maxi mal for age 2. Electrocardiographically the test was nondiagnostic due to inadequate heart rate Stress Test Summary STAGE HR BP Symptoms NOTES Supine 67 162/88 1 min post Lexiscan injection 74 158/78 3 min post Lexiscan injection 73 144/78 6 min post Lexiscan injection 71 144/80 MPI Conclusion Normal myocardial perfusion without evidence of ischemia or prior infarction EF is 64% with normal wall motion Radiologist Interpretation Radiologist agrees with Associate Buyer's Interpretation. Radiologist Interpretation by: Dev Wynne MD Interpretation Date/Time: 05/31/2021 16:10:09
[2021-05-31] MEDS: Regadenoson 0.4 MG/5 ML SYR IVP (12:44)
== END 2021-05-31 01:40 ==
PROVIDERS: PCP Family Medicine; Visit Provider Internal Medicine Cardiovascular Disease
DX: I25.10 Atherosclerotic heart disease of native coronary artery without angina pectoris (principal); R06.02 Shortness of breath; R53.83 Other fatigue; Z95.5 Presence of coronary angioplasty implant and graft; I10 Essential (primary) hypertension; E78.5 Hyperlipidemia, unspecified; Z87.891 Personal history of nicotine dependence; R94.31 Abnormal electrocardiogram [ECG] [EKG]; R94.39 Abnormal result of other cardiovascular function study
CPT/HCPCS: 78452; 93016; 93018; 93017; J2785

== ENCOUNTER 2021-06-05 09:51 | Outpatient (CLI) | payer MEDICARE, SELFPAY | END 2021-06-05 09:52 | LOC: CARDO 06-06 15:46 | PROVIDERS: PCP Family Medicine; Referring Provider Student in an Organized Health Care Education/Training Program; Visit Provider Internal Medicine Cardiovascular Disease | DX: R00.2 Palpitations (principal); R06.09 Other forms of dyspnea; I44.0 Atrioventricular block, first degree; R00.0 Tachycardia, unspecified | CPT/HCPCS: 93272 ==

== ENCOUNTER → 2021-06-13 09:47 | Outpatient (BNVA) | payer MEDICARE, SELFPAY | PROVIDERS: PCP Family Medicine; Referring Provider Family Medicine | DX: M65.4 Radial styloid tenosynovitis [de Quervain] (principal) | CPT/HCPCS: 20550; J1030 ==

== ENCOUNTER 2021-06-14 08:50 | Outpatient (RCR) | payer SELFPAY ==
[2021-05-18 00:25] VITALS: BP 150/84; PULSE 74
[2021-05-24 09:01] VITALS: BP 158/71; PULSE 80
[2021-05-29 09:44] VITALS: BP 151/89; PULSE 77
[2021-05-31 09:24] VITALS: BP 136/79; PULSE 80
[2021-06-05 08:49] VITALS: BP 134/79; PULSE 74
[2021-06-07 09:01] VITALS: BP 160/84; PULSE 82
[2021-06-12 09:09] VITALS: BP 156/90; PULSE 78
[2021-06-14 08:49] VITALS: BP 155/91; PULSE 74
== END 2021-06-17 23:59 | disposition home or self-care (01) ==
LOC: CR 08:50
PROVIDERS: PCP Family Medicine; Visit Provider Family Medicine
DX: Z51.89 Encounter for other specified aftercare (principal); R69 Illness, unspecified

== ENCOUNTER → 2021-06-29 14:09 | Outpatient (BNVA) | payer MEDICARE, SELFPAY | PROVIDERS: PCP Family Medicine; Referring Provider Family Medicine; Visit Provider Internal Medicine Cardiovascular Disease | DX: I25.10 Atherosclerotic heart disease of native coronary artery without angina pectoris (principal); I10 Essential (primary) hypertension | CPT/HCPCS: 99214; 99213 ==

== ENCOUNTER 2021-07-10 09:00 | Outpatient (RCR) | payer SELFPAY ==
[2021-06-18 00:12] VITALS: BP 155/91; PULSE 74
[2021-06-19 09:03] VITALS: BP 120/78; PULSE 85
[2021-06-21 08:50] VITALS: BP 135/81; PULSE 76
[2021-06-26 09:09] VITALS: BP 163/91; PULSE 75
[2021-06-28 11:01] VITALS: BP 151/90; PULSE 73
[2021-07-05 08:47] VITALS: BP 126/78; PULSE 82
[2021-07-10 09:04] VITALS: BP 154/87; PULSE 71
== END 2021-07-17 23:59 | disposition home or self-care (01) ==
LOC: CR 09:00
PROVIDERS: PCP Family Medicine; Visit Provider Family Medicine
DX: Z51.89 Encounter for other specified aftercare (principal); R69 Illness, unspecified

== ENCOUNTER 2021-07-25 10:59 | Outpatient (REF) | payer MEDICARE, OTHER, SELFPAY ==
[2021-07-25 23:27] LABS: PSA, Screening 1.6 ng/mL (0.0-6.5)
[2021-07-28 18:09] LABS: Testosterone, Free 0.92 ng/dL (2.88-10.5); Testosterone, Total 46 ng/dL (240-950)
== END 2021-07-25 11:00 | disposition home or self-care (01) ==
LOC: NCHCN 10:59
PROVIDERS: PCP Family Medicine; Visit Provider Family Medicine
DX: E29.1 Testicular hypofunction (principal); Z12.5 Encounter for screening for malignant neoplasm of prostate
CPT/HCPCS: 84153; 84402; 84403

== ENCOUNTER 2021-08-07 09:39 | Emergency (ER) | payer MEDICARE, SELFPAY ==
[2021-08-07 09:44] VITALS: BP 148/95; PULSE 64; RESP 18; TEMP 36.1; O2SAT 96
--- NOTE | 2021-08-07 10:00 | ED.GENADUL_ITS ---
Discharge Plan Disposition Patient Disposition: HOME Condition: Stable Discharge Details Clinical Impression: Left rib fracture Primary Care Provider: Karo Otero ED Provider: Mauricio Clarke Home Meds and New Rx's Prescriptions: New hydrocodone-acetaminophen 10-325 mg tablet 1 tab PO Q8H PRN (Reason: pain) Qty: 14 RF: 0 Continued omega-3 fatty acids [Fish Oil Concentrate] 1,000 mg capsule 1,000 mg PO DAILY RF: 0 temazepam [Restoril] 15 mg capsule 15 mg PO QHS RF: 0 testosterone 2 mg/24 hour patch 24 hour 2 mg transdermal DAILY RF: 0 amoxicillin 500 mg capsule 2,000 mg PO ONCE RF: 0 bupropion HCl 150 MG tablet extended release 12 hr 150 mg PO BID RF: 0 aspirin [Aspirin Low Dose] 81 MG tablet,delayed release (DR/EC) 81 mg PO DAILY RF: 0 multivitamin 1 EACH capsule 1 tab PO DAILY RF: 0 irbesartan-hydrochlorothiazide 150-12.5 mg Tablet 1 tab PO DAILY RF: 0 fluticasone propionate 50 mcg/actuation Blister With Device 1 inh INHALATION BID RF: 0 atorvastatin 80 mg Tablet 80 mg PO .Q PM RF: 0 loratadine 10 mg Capsule 10 mg PO DAILY RF: 0 nitroglycerin 0.4 MG tablet, sublingual 1 tab PO PRN PRNRF: 0 calcium carbonate [Calcium 600] 600 mg calcium (1,500 mg) Tablet 600 mg PO DAILY RF: 0 cholecalciferol (vitamin D3) [Vitamin D3] 25 mcg (1,000 unit) Tablet 25 mcg PO DAILY RF: 0 acetaminophen 500 mg Tablet 500 mg PO TID RF: 0 Discharge Instructions Instructions: Rib Fracture (ED) Additional Instructions: you broke the 6-8 ribs on your left side follow up with your primary care provider within 1 week try using lidocaine patches in addition to the prescribed medicine if you feel more ill, have severe worsening pain or fevers return to the emergency department Medical Decision Making 80 yo male with hx of htn, cad, ckd, who comes in with chief complaint of left sided chest pain after a fall.He states Friday he was walking to the post office to place mail in the mailbox and slipped on snow and landed on his left chest. Denies preceding symptoms such as dyspnea, lightheadedness or chest pain and denies loc during the fall. Denies hitting his head. He has had left sided chest tenderness since so came here for an evaluation. He arrives stable and does have 2x3cm area of bruising in the mid left axillary line over the 4-5 ribs and has tenderness here and also in posterior 4-5 ribs as well. No head pain, no c/t/l spine tenderness and no abdominal tenderness. Suspect rib contusion but will xray to evaluate for fracture patient stable, has left 6-8th rib fractures. On reassessment he still has pain and I offered admission for pain control which he declined and he has capacity to make his own decisions. I will provide hydrocodone for him and advised to use lidocaine patches and advised to f/u with pcp, return precautions given Differential Diagnosis Differential Diagnosis: rib contusion, rib fracture Imaging Data Radiologic Study: Attestation: I personally reviewed and interpreted this imaging study as follows: Imaging: X-Ray Radiologist's impression: IMPRESSION: 1. No acute pulmonary findings. 2. Left 6th, 7th and 8th rib fractures. 3. Small left pleural effusion and left basilar atelectasis. 4. No pneumothorax. HPI General Mode of arrival: ambulatory . Date/Time Provider Initiated Documentation: 08/07/21 09:49 . Limitations to Documentation: no limitations . Information obtained by: patient . History of Present Illness 80 year old M presents to the emergency department with the chief complaint of left sided rib pain, described as moderate, Quality is described as aching, and is localized to the chest. Patient reports no radiation. Patient started experiencing this day(s) (3) and it has been constant. No relieving factors improve symptom(s), No exacerbating factors reported . Patient did receive the following treatments prior to arrival, none Related Data Home Medications Medication Instructions Recorded Confirmed aspirin [Aspirin Low Dose] 81 mg PO DAILY 11/18/17 08/07/21 bupropion HCl 150 mg PO BID 11/18/17 08/07/21 multivitamin 1 tab PO DAILY 11/18/17 08/07/21 nitroglycerin 1 tab PO PRN PRN 01/07/18 08/07/21 atorvastatin 80 mg PO .Q PM 05/31/19 08/07/21 fluticasone propionate 1 inh INHALATION BID 05/31/19 08/07/21 irbesartan-hydrochlorothiazide 1 tab PO DAILY 05/31/19 08/07/21 loratadine 10 mg PO DAILY 05/03/21 08/07/21 amoxicillin 500 mg capsule 2,000 mg PO ONCE cap 05/08/21 08/07/21 omega-3 fatty acids 1,000 mg 1,000 mg PO DAILY 05/25/21 08/07/21 capsule temazepam 15 mg capsule 15 mg PO QHS 05/25/21 08/07/21 testosterone 2 mg/24 hour 2 mg TRANSDERMAL DAILY 06/29/21 08/07/21 transdermal 24 hour patch acetaminophen 500 mg PO TID 08/07/21 08/07/21 calcium carbonate [Calcium 600] 600 mg PO DAILY 08/07/21 08/07/21 cholecalciferol (vitamin D3) 25 mcg PO DAILY 08/07/21 08/07/21 [Vitamin D3] hydrocodone-acetaminophen 1 tab PO Q8H PRN #14 tab 08/07/21 Previous Rx's Medication Instructions Recorded hydrocodone-acetaminophen 1 tab PO Q8H PRN #14 tab 08/07/21 Allergies Allergy/AdvReac Type Severity Reaction Status Date / Time terazosin Allergy Severe Verified 08/07/21 09:50 oxycodone AdvReac Intermediate Nausea Verified 08/07/21 09:50 pollen Allergy Uncoded 08/07/21 09:50 General Stated Complaint: Chest/Rib JAMEE: 3 Review of Systems All systems reviewed & are unremarkable except as noted in HPI and below Constitutional Constitutional: Denies chills, Denies fever(s) and Denies weakness Respiratory Respiratory: Denies cough Gastrointestinal Gastrointestinal: Denies abdominal pain, Denies nausea and Denies vomiting Musculoskeletal Musculoskeletal: Denies joint swelling Neurologic Neurologic: Denies weakness [facility] All Active Problems (Updated 08/07/21 @ 11:28 by Mauricio Clarke MD) Left rib fracture (Acute) Hypertension (Chronic) Cardiomyopathy (Acute) Heart palpitations (Acute) Pes planus of left foot (Acute) Osteoarthritis of left knee (Acute) De Quervain's tenosynovitis, right (Acute) Injection: 06/13/2021; 01/24/2021 Laceration of left index finger (Acute) Fracture of distal phalanx of left index finger (Acute) 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 (Acute) De Quervain's tenosynovitis, left (Acute) Steroid injection: 06/26/2020, 02/21/2021 CAD (coronary artery disease) (Chronic) Advance directive discussed with patient (Acute) DVT prophylaxis (Acute) HTN (hypertension) with goal to be determined (Acute) CKD (chronic kidney disease) (Acute) Depression (Chronic) Bigeminal rhythm (Acute) Left knee DJD (Acute) Medical History (Updated 08/07/21 @ 11:28 by Mauricio Clarke MD) Bilateral carotid artery stenosis History of non-ST elevation myocardial infarction (NSTEMI) November 2017 HLD (hyperlipidemia) Hyperpiesia Surgical History History of revision of total replacement of right knee joint Right TKA - [place] (2003) Two-stage revision for infection -[place] (2008) Hx of cataract surgery S/P ORIF (open reduction internal fixation) fracture Right distal femur fracture Social History Smoking/Tobacco Use Status: Former Tobacco Use Smoking risk assessment performed?: Yes Alcohol Intake: former Substance use type: does not use Do you feel safe at home: Yes Do you feel safe in your relationship?: Yes Additional Social history: Patient is , and together they had one child who . He does have grandchildren. 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 Previously retired to [place] prior to moving to [place] 3 years ago. Prior history of tobacco, quit 25 years ago. Prior history of EtOH use, last used 40 years ago. Exam Const General: no acute distress Orientation: alert [facility] Head: normal to inspection Ears: external ears normal General nose exam: external nose normal Mouth: moist mucous membranes Eyes General: appearance normal, both eyes and all related structures Neck Neck: normal visual inspection Chest Chest: no crepitus and tenderness Resp Effort & Inspection: normal respiratory effort and able to speak in complete sentences Cardio Rate: regular rate Skin General skin exam: no rashes or lesions noted Neuro General: patient alert and patient oriented x3 Extrem General: normal to inspection Psych Mental Status: mental status grossly normal Course Vital Signs Vital signs: Vital Signs Temperature 36.1 C L 08/07/21 09:44 Pulse 64 08/07/21 09:44 Respiratory Rate 18 08/07/21 09:44 Blood Pressure 148/95 H 08/07/21 09:44 Pulse Oximetry 96 08/07/21 09:44 Temperature 36.1 C L 08/07/21 09:44 Temperature Source Temporal Artery Scan 08/07/21 09:44 Pulse 64 08/07/21 09:44 Respiratory Rate 18 08/07/21 09:44 Respiratory Effort Non-Labored 08/07/21 09:56 Respiratory Depth Normal 08/07/21 09:56 Respiratory Pattern Normal 08/07/21 09:56 Blood Pressure 148/95 H 08/07/21 09:44 Blood Pressure Position Sitting 08/07/21 09:44 Pulse Oximetry 96 08/07/21 09:44 Oxygen Delivery Method Room Air 08/07/21 09:44 Oxygen Flow Rate 0 08/07/21 09:44 Pain Level 2 08/07/21 09:56
[2021-08-07] MEDS: HYDROcodone 5/Acetaminophen 325 TAB PO (10:04)
--- NOTE | 2021-08-07 10:39 | DI.RAD_ITS ---
Exam(s) XR RIBS LT W PA LAT CHEST EXAM: XR RIBS LT W PA LAT CHEST CLINICAL HISTORY: fall, left sided rib pain TECHNIQUE: 2D digital imaging was performed. COMPARISON: CR XR PORTABLE CHEST AP from 05/31/2019 FINDINGS: MEDIASTINUM: Normal. HEART: Normal. PULMONARY VASCULATURE: Atherosclerosis of the thoracic aorta is present. LUNGS: There is atelectasis seen in the left lung base. PLEURAL SPACE: There is blunting of the left costophrenic angle which may represent a small pleural e ffusion. No pneumothorax is seen. The right lung is well expanded. BONE:Normal. LEFT RIBS: There are mildly displaced fractures of the posterior aspects of the left 6th, 7th and 8th ribs. There is also nondisplaced fracture involving the lateral aspect of the left 7th rib. OTHER FINDINGS:Normal. IMPRESSION: 1. No acute pulmonary findings. 2. Left 6th, 7th and 8th rib fractures. 3. Small left pleural effusion and left basilar atelectasis. 4. No pneumothorax. DATA REPOSITORY: RADIATION DOSE DELIVERED:
[2021-08-07] MEDS: Lidocaine 5% Patch 1 PATCH TP (11:32)
[2021-08-07 11:42] VITALS: BP 120/80; PULSE 76; TEMP 36; O2SAT 99
[2021-08-07 11:45] VITALS: BP 120/80; PULSE 76; RESP 18; TEMP 36; O2SAT 99
== END 2021-08-07 11:43 | disposition home or self-care (01) ==
PROVIDERS: Emergency Provider Emergency Medicine; PCP Family Medicine
DX: S22.32XA Fracture of one rib, left side, initial encounter for closed fracture (principal); W18.39XA Other fall on same level, initial encounter
CPT/HCPCS: 99283; 71046; 71100

== ENCOUNTER 2021-08-14 09:00 | Outpatient (RCR) | payer SELFPAY ==
[2021-07-18 00:17] VITALS: BP 154/87; PULSE 71
[2021-07-19 08:55] VITALS: BP 145/87; PULSE 80
[2021-07-26 08:51] VITALS: BP 144/84; PULSE 70
[2021-08-14 09:00] VITALS: BP 164/94; PULSE 76
== END 2021-08-17 23:59 | disposition home or self-care (01) ==
LOC: CR 09:00
PROVIDERS: PCP Family Medicine; Visit Provider Family Medicine
DX: Z51.89 Encounter for other specified aftercare (principal); R69 Illness, unspecified

== ENCOUNTER 2022-01-15 08:59 | Outpatient (RCR) | payer SELFPAY ==
[2022-01-01 10:09] VITALS: BP 157/87; PULSE 81
[2022-01-08 09:35] VITALS: BP 154/85; PULSE 80
[2022-01-15 08:57] VITALS: BP 150/83; PULSE 82
== END 2022-01-15 23:59 | disposition home or self-care (01) ==
LOC: CR 08:59
PROVIDERS: PCP Family Medicine; Visit Provider Internal Medicine Cardiovascular Disease
DX: R69 Illness, unspecified (principal)

== ENCOUNTER 2022-01-15 13:33 | Outpatient (CLI) | payer MEDICARE, SELFPAY ==
--- NOTE | 2022-01-15 13:15 | DI.RAD_ITS ---
Exam(s) XR SHOULDER LT COMPLETE 2+V EXAM: XR SHOULDER LT COMPLETE 2+V CLINICAL HISTORY: LEFT SHOULDER PAIN. TECHNIQUE: 2D digital imaging was performed. COMPARISON: No exams were available for comparison FINDINGS: No evidence of fracture or dislocation. Mild degenerative changes. Subacromial space is not diminis hed and there are no calcifications within the subacromial space. There are moderate degenerative ch anges in the AC joint. There is some degenerative subarticular cysts in the humeral head. IMPRESSION: Mild degenerative changes DATA REPOSITORY: RADIATION DOSE DELIVERED:
== END 2022-01-15 13:34 | disposition home or self-care (01) ==
LOC: DIORS 13:33
PROVIDERS: PCP Family Medicine; Referring Provider Family Medicine; Visit Provider Student in an Organized Health Care Education/Training Program
DX: M75.102 Unspecified rotator cuff tear or rupture of left shoulder, not specified as traumatic; M75.52 Bursitis of left shoulder; M75.22 Bicipital tendinitis, left shoulder; M19.012 Primary osteoarthritis, left shoulder
CPT/HCPCS: 20610; 99214; 73030; J1030

== ENCOUNTER 2022-02-01 20:40 | Inpatient (IN) | payer MEDICARE, SELFPAY ==
--- NOTE | 2022-02-01 21:00 | RT.EKG_ITS ---
APPROVED REPORT Exam: Resting ECG Reason for Exam: abd pain Patient Location: E HR:85 bpm ECG Measurements Heart Rate 85 AXIS MO 216 P -31 QRSd 90 QRS -29 QT 371 T 22 QTc 441 Conclusion Sinus rhythm...normal P axis, V-rate 60- 99 Borderline prolonged MO interval...MO >212, V-rate 50- 90. Sinus. No STEMI. I have reviewed and interpreted ECG and agree with software generated interpretation.
[2022-02-01 21:04] VITALS: BP 189/107; PULSE 85; RESP 25; TEMP 36.2; O2SAT 97
--- NOTE | 2022-02-01 21:39 | W.ED.GENAD ---
Discharge Plan Disposition Patient Disposition: [facility] INPATIENT Condition: Stable Discharge Details Clinical Impression: Abdominal pain, Nausea, Chest pain, Acute cholecystitis Primary Care Provider: Karo Otero ED Provider: Mauricio Clarke Home Meds and New Rx's Prescriptions: No Action omega-3 fatty acids [Fish Oil Concentrate] 1,000 mg capsule 1,000 mg PO DAILY temazepam [Restoril] 15 mg capsule 15 mg PO QHS valsartan 40 mg tablet 40 mg PO DAILY amoxicillin 500 mg capsule 2,000 mg PO ONCE bupropion HCl 150 MG tablet extended release 12 hr 150 mg PO BID aspirin [Nancy Low Dose Aspirin] 81 MG tablet,delayed release (DR/EC) 81 mg PO DAILY multivitamin 1 EACH capsule 1 tab PO DAILY fluticasone propionate 50 mcg/actuation Blister With Device 1 inh INHALATION BID atorvastatin 80 mg Tablet 80 mg PO .Q PM loratadine 10 mg Capsule 10 mg PO DAILY nitroglycerin 0.4 MG tablet, sublingual 1 tab PO PRN PRN calcium carbonate [Calcium 600] 600 mg calcium (1,500 mg) Tablet 600 mg PO DAILY cholecalciferol (vitamin D3) [Vitamin D3] 25 mcg (1,000 unit) Tablet 25 mcg PO DAILY acetaminophen 500 mg Tablet 500 mg PO TID hydrocodone-acetaminophen 10-325 mg tablet 1 tab PO Q8H PRN (Reason: pain) Qty: 14 0RF Medical Decision Making <Aida Rolon DO - Last Filed: 02/01/22 23:18> 2130 -- 81-year-old male with a history of coronary artery disease with coronary stent placement, CKD hypertension, hyperlipidemia presents for bilateral upper chest pain and upper abdominal pain occurring earlier today that is since resolved now with right lower quadrant abdominal pain since this evening associated with dry heaving and decreased Blood pressure hypertensive on arrival. He is afebrile and appears nontoxic but uncomfortable. His lungs are clear bilaterally and chest is nontender. He has diffuse abdominal tenderness but worse in the right lower quadrant. He has some guarding but no rigidity and no peritoneal signs. Suspect appendicitis, also consider diverticulitis, colitis, UTI, cholelithiasis, cholecystitis. We will place an IV, bolus IV fluids, screening labs, urinalysis, CT chest abdomen and pelvis and give IV Dilaudid and Zofran and reassess. 2300 -- labs reviewed. White blood cell count 18. Magnesium 1.5, will replete. Troponin and lipase within normal limit 2320 -- Case endorsed to Dr. Clarke to follow-up on labs and imaging and final disposition. Medical Records Medical records reviewed: Yes I reviewed the patient's medical records. Lab Data Lab results reviewed: Yes I reviewed the patient's lab results. ECG Data Attestation: I personally reviewed and interpreted this ECG (s) as follows: Interpretation: Rate of 85, sinus, no stemi. <Mauricio Clarke MD - Last Filed: 02/02/22 01:28> 2130 -- 81-year-old male with a history of coronary artery disease with coronary stent placement, CKD hypertension, hyperlipidemia presents for bilateral upper chest pain and upper abdominal pain occurring earlier today that is since resolved now with right lower quadrant abdominal pain since this evening associated with dry heaving and decreased Blood pressure hypertensive on arrival. He is afebrile and appears nontoxic but uncomfortable. His lungs are clear bilaterally and chest is nontender. He has diffuse abdominal tenderness but worse in the right lower quadrant. He has some guarding but no rigidity and no peritoneal signs. Suspect appendicitis, also consider diverticulitis, colitis, UTI, cholelithiasis, cholecystitis. We will place an IV, bolus IV fluids, screening labs, urinalysis, CT chest abdomen and pelvis and give IV Dilaudid and Zofran and reassess. 2300 -- labs reviewed. White blood cell count 18. Magnesium 1.5, will replete. Troponin and lipase within normal limit 2320 -- Case endorsed to Dr. Clarke to follow-up on labs and imaging and final disposition. ct shows cholecystitis, pt stable is tender in the ruq, discussed with pt and he understands results. Discussed with Dr. Erwin and plan for admission, zosyn ordered Imaging Data Radiologic Study: Attestation: I personally reviewed and interpreted this imaging study as follows: Imaging: CT Scan Radiologist's impression: 1. The gallbladder is hydropic. Calcified gallstones present in the neck of the gallbladder with diffuse gallbladder wall thickening, pericholecystic fluid and edema, consistent with acute cholecystitis. Consider gallbladder ultrasound for further evaluation if clinically warranted. 2. Probable 4.7 cm simple cyst seen within the midpole right kidney although without contrast soft tissue mass cannot be excluded. 3. The hepatic flexure of the colon shows some pericolonic soft tissue stranding which may be secondary to patient's gallbladder process. 4. Mildly prominent lymph nodes are present at the aortocaval region and periportal regio HPI <Aida Rolon DO - Last Filed: 02/01/22 23:18> General Mode of arrival: ambulatory. Date/Time Provider Initiated Documentation: 02/01/22 21:34. Limitations to Documentation: no limitations. Information obtained by: patient. HPI Narrative: Patient is an 81-year-old male with a history of hypertension, hyperlipidemia, NSTEMI, coronary artery disease, CKD who presents to the ED with a complaint of bilateral upper chest pain this morning and epigastric pain this afternoon but has since resolved now with right lower quadrant abdominal pain. Patient states he was sitting at home this morning when he developed bilateral upper anterior chest pain that was dull in nature and then resolved. He states a few hours later he developed dull epigastric pain that then resolved. He states he then had 3 episodes of dry heaving. He states for the past several hours he has had right lower quadrant abdominal pain that is sharp and constant and worse with any movement. He states he last ate at noon today and has had decreased appetite remainder of the day which is unusual for him. He states his last bowel movement was 2 days ago which is also unusual for him as he usually has a bowel movement every other day. He denies any fever, coughing, difficulty breathing, vomiting, urinary symptoms or diarrhea. Related Data Home Medications Medication Instructions Recorded Confirmed aspirin 81 mg tablet,delayed 81 mg PO DAILY 11/18/17 01/15/22 release (Nancy Low Dose Aspirin) bupropion HCl 150 mg tablet,12 hr 150 mg PO BID 11/18/17 01/15/22 sustained-release multivitamin 1 tab PO DAILY 11/18/17 01/15/22 nitroglycerin 0.4 mg sublingual 1 tab PO PRN PRN 01/07/18 01/15/22 tablet atorvastatin 80 mg tablet 80 mg PO .Q PM 05/31/19 01/15/22 fluticasone propionate 50 1 inh inhalation BID 05/31/19 01/15/22 mcg/actuation blister powder for inhalation loratadine 10 mg capsule 10 mg PO DAILY 05/03/21 01/15/22 amoxicillin 500 mg capsule 2,000 mg PO ONCE 05/08/21 01/15/22 omega-3 fatty acids 1,000 mg 1,000 mg PO DAILY 05/25/21 01/15/22 capsule (Fish Oil Concentrate) temazepam 15 mg capsule (Restoril) 15 mg PO QHS 05/25/21 01/15/22 acetaminophen 500 mg tablet 500 mg PO TID 08/07/21 01/15/22 calcium carbonate 600 mg calcium 600 mg PO DAILY 08/07/21 01/15/22 (1,500 mg) tablet (Calcium) cholecalciferol (vitamin D3) 25 25 mcg PO DAILY 08/07/21 01/15/22 mcg (1,000 unit) tablet (Vitamin D3) hydrocodone 10 mg-acetaminophen 1 tab PO Q8H PRN pain #14 tabs 08/07/21 01/15/22 325 mg tablet valsartan 40 mg tablet 40 mg PO DAILY 01/15/22 01/15/22 Previous Rx's Medication Instructions Recorded hydrocodone 10 mg-acetaminophen 1 tab PO Q8H PRN pain #14 tabs 08/07/21 325 mg tablet Allergies Allergy/AdvReac Type Severity Reaction Status Date / Time terazosin Allergy Severe Verified 01/15/22 13:18 oxycodone AdvReac Intermediate Nausea Verified 01/15/22 13:18 pollen Allergy Uncoded 01/15/22 13:18 General Stated Complaint: Abd Prob JAMEE: 2 Review of Systems <Aida Rolon DO - Last Filed: 02/01/22 23:18> All systems reviewed & are unremarkable except as noted in HPI and below Constitutional Constitutional: Denies chills, Denies excessive sweating, Denies fatigue, Denies fever(s), Denies weakness and Denies weight loss Eyes Eyes: Reports system reviewed and no additional complaints, except as documented and Denies blurry vision ENT Ears, Nose, Mouth, and Throat: Denies vertigo, Denies dizziness, Denies otalgia, Denies nasal congestion, Denies sore throat and Denies throat swelling Cardiovascular Cardiovascular: Reports chest pain, Denies syncope, Denies rapid heart rate and Denies dyspnea Respiratory Respiratory: Denies chest congestion, Denies cough, Denies pain on inspiration and Denies dyspnea Gastrointestinal Gastrointestinal: Reports abdominal pain, Denies diarrhea, Reports nausea and Denies vomiting Genitourinary Genitourinary: Denies hematuria, Denies dysuria and Denies flank pain Musculoskeletal Musculoskeletal: Denies back pain and Denies joint swelling Integumentary/Breasts Skin/Breast: Denies lesions and Denies rash Neurologic Neurologic: Denies behavioral changes, Denies confusion, Denies vertigo, Denies dizziness, Denies syncope, Denies localized weakness and Denies weakness Psychiatric Psychiatric: Denies behavioral changes, Denies confusion and Denies depression Endocrine Endocrine: Denies excessive sweating and Denies fatigue Hematologic/Lymphatic Hematologic/Lymphatic: Denies easy bruising and Denies lymphadenopathy Allergic/Immunologic Allergic/Immunologic: Denies throat swelling PFSH <Aida Rolon, DO - Last Filed: 02/01/22 23:18> All Active Problems (Updated 02/02/22 @ 01:28 by Mauricio Clarke MD) Abdominal pain (Acute) Nausea (Acute) Chest pain (Acute) Acute cholecystitis (Acute) 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 (Acute) Bursitis of shoulder, left (Acute) Biceps tendinitis of left upper extremity (Acute) Hypertension (Chronic) Cardiomyopathy (Acute) Heart palpitations (Acute) Pes planus of left foot (Acute) Osteoarthritis of left knee (Acute) De Quervain's tenosynovitis, right (Acute) Injection: 06/13/2021; 01/24/2021 Laceration of left index finger (Acute) Fracture of distal phalanx of left index finger (Acute) 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 (Acute) De Quervain's tenosynovitis, left (Acute) Steroid injection: 06/26/2020, 02/21/2021 CAD (coronary artery disease) (Chronic) Advance directive discussed with patient (Acute) DVT prophylaxis (Acute) HTN (hypertension) with goal to be determined (Acute) CKD (chronic kidney disease) (Acute) Depression (Chronic) Bigeminal rhythm (Acute) Left knee DJD (Acute) Medical History (Updated 02/02/22 @ 01:28 by Mauricio Clarke MD) Bilateral carotid artery stenosis History of non-ST elevation myocardial infarction (NSTEMI) November 2017 HLD (hyperlipidemia) Hyperpiesia Surgical History History of revision of total replacement of right knee joint Right TKA - [place] (2003) Two-stage revision for infection -[place] (2008) Hx of cataract surgery S/P ORIF (open reduction internal fixation) fracture Right distal femur fracture Social History Smoking/Tobacco Use Status: Former Tobacco Use Smoking risk assessment performed?: Yes Alcohol Intake: former Substance use type: does not use Do you feel safe at home: Yes Do you feel safe in your relationship?: Yes Additional Social history: Patient is , and together they had one child who . He does have grandchildren. 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 Previously retired to [place] prior to moving to [place] 3 years ago. Prior history of tobacco, quit 25 years ago. Prior history of EtOH use, last used 40 years ago. Exam <Aida Rolon DO - Last Filed: 02/01/22 23:18> Const General: cooperative Orientation: alert, awake and oriented x3 HENMT Head: normal to inspection Ears: hearing grossly normal bilaterally, external ears normal and TM's normal bilaterally General nose exam: external nose normal Face and sinus: normal facial exam Mouth: oral mucosae normal Teeth and gingiva: dentition normal Throat: posterior oropharynx normal Eyes General: appearance normal, both eyes and all related structures Eyelids: eyelids normal Pupils: PERRL EOM: EOM intact bilaterally Neck Neck: normal visual inspection Lymphatic: no lymphadenopathy noted Chest Chest: normal inspection of the chest Resp Effort & Inspection: normal respiratory effort and able to speak in complete sentences Auscultation: clear to auscultation bilaterally Cardio Rate: regular rate Rhythm: regular rhythm GI Inspection: normal to inspection Palpation: soft, not firm, guarding in the RLQ, no hepatosplenomegaly, no masses and tender (diffuse, worse in RLQ>R mid abdomen>RUQ) Auscultation: hypoactive bowel sounds Back/Spine/Pelvis Back: no CVA tenderness Skin General skin exam: no rashes or lesions noted Neuro General: patient alert and patient awake Cognition: normal cognition Speech: speech normal Gait: normal gait Motor: muscle tone normal throughout Sensory Exam: no sensory deficits noted Extrem General: normal to inspection, full ROM, capillary refill normal and no edema Psych Appearance: grossly normal Mental Status: mental status grossly normal Speech and Movement: speech and movement normal Affect: normal affect Thought Process: normal Course <Aida Rolon DO - Last Filed: 02/01/22 23:18> Vital Signs Vital signs: Vital Signs Temperature 97.2 F L 02/01/22 21:04 Pulse 85 02/01/22 21:04 Respiratory Rate 25 H 02/01/22 21:04 Blood Pressure 189/107 H 02/01/22 21:04 Pulse Oximetry 97 02/01/22 21:04 Temperature 97.2 F L 02/01/22 21:04 Temperature Source Skin 02/01/22 21:04 Pulse 85 02/01/22 21:04 Respiratory Rate 25 H 02/01/22 21:04 Blood Pressure 189/107 H 02/01/22 21:04 Blood Pressure Position Supine 02/01/22 21:04 Pulse Oximetry 97 02/01/22 21:04 Pain Level 4 02/01/22 21:04 Sign Out <Aida Rolon DO - Last Filed: 02/01/22 23:18> Sign Out Data: Sign Out Comment: Upper chest and upper abdominal pain earlier today, now resolved. Now with right lower quadrant abdominal pain, vomiting and decreased appetite. Follow-up on CT chest abdomen pelvis and final disposition. Last updated by Aida Rolon DO at 02/01/22 22:39
--- NOTE | 2022-02-01 22:00 | DI.CT_ITS ---
Exam(s) CT CHEST/ABD/PEL WO EXAM: CT CHEST/ABD/PEL WO CLINICAL HISTORY: RLQ abd pain, upper abd pain, r/o appy. TECHNIQUE: Imaging Protocol: Axial computed tomography images with coronal and sagittal reformatted images were created and reviewed CONTRAST MATERIAL: Oral: yes COMPARISON: CT,NM,TMT NM MPI REST STRESS GRP from 05/31/2021 FINDINGS: Exam is somewhat limited by patient motion. Chest: Heart is enlarged. Coronary artery calcifications are seen. No pleural or pericardial effusi ons. O old left-sided rib fractures. Dependent changes at the lung bases. Contrast in the esophagu s could represent reflux. Abdomen pelvis: Exam limited by motion. The liver, spleen and adrenals are unremarkable. The gallbl adder appears abnormally distended and shows wall thickening. There is some stranding in the surroun ding fat. Few small stones are seen in the neck of the gallbladder. The pancreas is atrophic. Ther e are bilateral renal cysts. There is no evidence of bowel obstruction. There is diverticulosis but no evidence of diverticulitis. Bladder and prostate unremarkable. Aorta calcified. No suspicious bony abnormalities. IMPRESSION: No acute abnormality in the chest. Findings consistent with acute cholecystitis. Stones in gallbladder neck. No biliary dilatation. Contrast in the esophagus could indicate reflux. RADIATION DOSE DELIVERED: 1,499.37mGy.cm Total DLP DATA REPOSITORY: All CT scans at this facility are submitted to the National Radiology Data Registry (NRDR) Dose Index Registry (DIR) with the [employer] ([employer]). RADIATION OPTIMIZATION: All CT scans at this facility use at least one of these dose optimization te chniques: automated exposure control; mA and/or kV adjustment per patient size (includes targeted exa ms where dose is matched to clinical indication); or iterative reconstruction.
[2022-02-01 22:20] LABS: Abs Immature Grans 0.08 10^3/uL (0.0-0.06); Absolute Basophil Count 0.04 10^3/uL (0.0-0.2); Absolute Lymphocyte Count 1.53 10^3/uL (1.2-3.4); Absolute Monocyte Count 0.75 10^3/uL (0.1-0.8); Absolute Neutrophil Count 15.82 10^3/uL (1.2-6.7); Basophils % 0.2; HCT 39.6 % (40.0-50.0); HGB 13.2 g/dL (13.5-17.5); Immature Grans % 0.4; Lymphocytes % 8.4; MCH 28.3 pg (27.0-33.0); MCHC 33.3 % (32.0-36.0); MCV 85 fL (80-95); MPV 9.6 fL (8.0-11.0); Monocytes % 4.1; Neutrophils % 86.9; Platelet Count 190 10^3/uL (130-400); RBC 4.66 10^6/uL (4.36-5.78); RDW 13.8 % (11.8-14.1); RDW-SD 42.9 fL
[2022-02-01] MEDS: Breeza Beverage 473 ML BTL PO ×2 (22:22→22:23)
[2022-02-01 22:29] LABS: Lipase 107 U/L (73-393)
[2022-02-01 22:35] LABS: ALT 24 U/L (16-63); AST 22 U/L (15-37); Albumin 3.7 g/dL (3.4-5.0); Alkaline Phosphatase 129 U/L (46-116); Anion Gap 9.7 mmol/L (3-11); BUN 22 mg/dL (7-18); Bilirubin, Total 1.2 mg/dL (0.2-1.0); CO2 24.3 mmol/L (21.0-32.0); CREATININE 1.4 mg/dL (0.70-1.30); Calcium 8.9 mg/dL (8.5-10.1); Chloride 95 mmol/L (98-107); Estimated GFR 48.52 (mL/min/1.73m2); Glucose 151 mg/dL (74-106); Magnesium 1.5 mg/dL (1.8-2.4); Potassium 4.6 mmol/L (3.5-5.1); Sodium 129 mmol/L (136-145); Total Protein 7.5 g/dL (6.4-8.2); Troponin I < 50 ng/L (<or=60)
[2022-02-01] MEDS: Ondansetron 4 MG/2 ML VIAL IVP (22:35)
[2022-02-01] MEDS: Normal Saline Flush 10 ML SYR IVP (22:35)
[2022-02-01] MEDS: HYDROmorphone 2 MG/ML VIAL 0.5 MG IVP (22:36)
[2022-02-01] MEDS: Normal Saline 500 ML IV (22:48)
[2022-02-02] VITALS (11 sets, daily range): BP systolic 131–151; BP diastolic 71–93; PULSE 80–109; RESP 18–34; TEMP 36.4–38.6; O2SAT 93–97; BMI 25.9
[2022-02-02 00:11] LABS: Bacteria Few HPF (Negative); Bilirubin Negative (Negative); Blood Trace-intact (Negative); C & S Indicated? No; Casts Negative LPF (Negative); Clarity Clear (Clear); Crystals Negative HPF (Negative); Epithelial Cells Few HPF (Negative); Glucose Negative (Negative); Ketones Trace mg/dL (Negative); Leukocyte Esterase Negative (Negative); Mucus Negative (Negative); Nitrite Negative (Negative); Specific Gravity >= 1.030 (1.005-1.025); WBC 0-2 HPF (0-5); pH 6.5 (5-8)
[2022-02-02] MEDS: MAGNESIUM SULFATE 1 GM/100 ML BAG IVPB (00:15)
--- NOTE | 2022-02-02 01:08 | DI.VRAD_ITS ---
PROCEDURE INFORMATION: Exam: CT Chest Without Contrast; Diagnostic Exam date and time: 02/02/2022 12:32 AM Age: 81 years old Clinical indication: Abdominal pain; Localized; Right lower quadrant (rlq); Patient HX: Rlq abd pain, upper abd pain, R/O appy TECHNIQUE: Imaging protocol: Diagnostic computed tomography of the chest without contrast. Radiation optimization: All CT scans at this facility use at least one of these dose optimization techniques: automated exposure control; mA and/or kV adjustment per patient size (includes targeted exams where dose is matched to clinical indication); or iterative reconstruction. COMPARISON: CT CHEST PE CTA 05/03/2021 10:50 AM FINDINGS: Lungs: There is heterogeneous attenuation of the pulmonary parenchyma, consistent with air trapping from underlying small airways disease. Scattered patchy ground-glass opacities within the lungs. These findings are nonspecific and may represent hypoventilatory change,edema, hemorrhage, or an infectious/inflammatory process (acute or chronic). Pleural spaces: Unremarkable. No pneumothorax. No pleural effusion. Heart: There is severe atherosclerotic calcification of the coronary arteries. There are probable coronary stents present. There is calcification of the cardiac aortic valve annulus. Low attenuation within the cardiac ventricular chambers may represent anemia. Mediastinal space: Oral contrast is seen within the esophagus consistent with gastroesophageal reflux. Lymph nodes: Unremarkable. No enlarged lymph nodes. Vasculature: The aorta demonstrates moderate atherosclerotic calcification. The great vessels show moderate atherosclerotic plaquing at the origins. Pulmonary artery is normal in caliber. Intraperitoneal space: Please see CT of the abdomen and pelvis. Bones/joints: Old rib fractures present within the left thorax with areas of malunion and nonunion. No acute fracture. Soft tissues: The soft tissues of the extrathoracic region are unremarkable. Other findings: Motion artifact does moderately limit the sensitivity of this examination. IMPRESSION: 1. Motion artifact does moderately limit the sensitivity of this examination. 2. There is heterogeneous attenuation of the pulmonary parenchyma, consistent with air trapping from underlying small airways disease. 3. Scattered patchy ground-glass opacities within the lungs. These findings are nonspecific and may represent hypoventilatory change,edema, hemorrhage, or an infectious/inflammatory process (acute or chronic). 4. Oral contrast is seen within the esophagus consistent with gastroesophageal reflux. PROCEDURE INFORMATION: Exam: CT Abdomen And Pelvis Without Contrast Exam date and time: 02/02/2022 12:32 AM Age: 81 years old Clinical indication: Abdominal pain; Localized; Right lower quadrant (rlq); Patient HX: Rlq abd pain, upper abd pain, R/O appy TECHNIQUE: Imaging protocol: Computed tomography of the abdomen and pelvis without contrast. Radiation optimization: All CT scans at this facility use at least one of these dose optimization techniques: automated exposure control; mA and/or kV adjustment per patient size (includes targeted exams where dose is matched to clinical indication); or iterative reconstruction. COMPARISON: CT CHEST PE CTA 05/03/2021 10:50 AM FINDINGS: Lungs: Please see CT of the chest and lungs. Liver: There are no focal liver lesions present. Gallbladder and bile ducts: The gallbladder is hydropic. Calcified gallstones present in the neck of the gallbladder with diffuse gallbladder wall thickening, pericholecystic fluid and edema, consistent with acute cholecystitis. Consider gallbladder ultrasound for further evaluation if clinically warranted. Pancreas: Mild atrophy. No ductal dilation. Spleen: The spleen is normal. Adrenal glands: The adrenal glands are normal. Kidneys and ureters: Probable 4.7 cm simple cyst seen within the midpole right kidney although without contrast soft tissue mass cannot be excluded. Kidneys are otherwise unremarkable. Stomach and bowel: The hepatic flexure of the colon shows some pericolonic soft tissue stranding which may be secondary to patient's gallbladder process. There is no evidence of intestinal obstruction. Appendix: A normal appendix is identified. There is no evidence of distention or periappendiceal inflammation to suggest appendicitis. Intraperitoneal space: No free air present. Vasculature: The aorta demonstrates moderate atherosclerotic calcification. The arterial peripheral vasculature demonstrates diffuse moderate atherosclerotic calcification. Lymph nodes: Mildly prominent lymph nodes are present at the aortocaval region and periportal region. Urinary bladder: The bladder is normal. Reproductive: The prostate gland and seminal vesicles are normal. Bones/joints: The lumbar spine demonstrates mild to moderate degenerative changes. The thoracolumbar spine demonstrates moderate degenerative changes at multiple levels.The extra-abdominal soft tissues are normal. Soft tissues: See Bones/joints finding. IMPRESSION: 1. The gallbladder is hydropic. Calcified gallstones present in the neck of the gallbladder with diffuse gallbladder wall thickening, pericholecystic fluid and edema, consistent with acute cholecystitis. Consider gallbladder ultrasound for further evaluation if clinically warranted. 2. Probable 4.7 cm simple cyst seen within the midpole right kidney although without contrast soft tissue mass cannot be excluded. 3. The hepatic flexure of the colon shows some pericolonic soft tissue stranding which may be secondary to patient's gallbladder process. 4. Mildly prominent lymph nodes are present at the aortocaval region and periportal region. Dictated and Authenticated by: Noé Rodriguez MD. Ordering:DUNG Parra MD
[2022-02-02] MEDS: HYDROmorphone 2 MG/ML VIAL 0.5 MG IVP (01:45)
--- NOTE | 2022-02-02 02:21 | PGE_ITS ---
Assessment and Plan Assessment and plan (1) Abdominal pain: Status: Acute Assessment and plan: -- Surgical, and process -Continue antibiotics Will obtain ultrasound Consider supportive care. Possible lap zayra later on next week versus if it needs to be done urgently this week (2) Nausea: Status: Acute (3) Chest pain: Status: Acute (4) Acute cholecystitis: Status: Acute Assessment and plan: 1 20 ? Diagnostics Subcategory All Activity ??:?? All Time ??:?? All Subcategories Filter Laboratory Imaging Microbiology Pathology Blood Bank Tests Cardiovascular Other Specialty DATE TYPE STATUS REF RANGE/AUTHOR Hx Today 01:08 Radiology Report Signed vrad,Reports 02/01/22 22:00 Chest/Abdomen/Pelvis CT ? 01/15/22 13:15 Shoulder X-Ray Signed Vin Forman 08/07/21 10:39 Ribs w/Chest X-Ray Signed Anjum Bear 05/31/21 07:15 Myocardial Perfusion Scan Nuc Med Signed Bhavana Coleman 05/03/21 09:[address] Signed Anjum Bear 01/08/21 17:42 Radiology Report Signed vrissa,Reports 01/08/21 16:15 Finger X-Ray Signed Erna Naqvi 07/10/20 14:45 Knee X-Ray Signed Eran Naqvi 06/26/20 14:00 Wrist X-Ray Signed Dev Wynne 05/31/19 13:30 Echocardiogram Ultrasound Signed Sumeet Hernandez 05/31/19 10:33 Chest X-Ray Signed Dev Wynne 03/22/19 10:00 Knee X-Ray Signed Erna Naqvi 01/22/18 18:54 Femur X-Ray Signed Dev Wynne 01/22/18 18:17 Radiology Report Signed vrad,Reports 01/07/18 14:25 Chest X-Ray Signed Indigo Davis 01/07/18 13:46 Knee X-Ray Signed Indigo Davis 01/07/18 13:46 Femur X-Ray Signed Indigo Davis 11/18/17 15:30 Chest X-Ray Signed Erna Naqvi III, [place] J Acute 81, M?1940 MRN#? [id number] REG ER,?Main ER??2ER?-2ER? 1.88m 91.626kg BSA: 2.18m? BMI: 25.9kg/m? Abd Prob Acc#? [id number] Full Code Allergies terazosin oxycodone Nausea [pollen] Problems ? 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 Resp 25?H Temp 36.2 C?L O2 Sat 97? Home Meds Not Confirmed Total 30 MME/Day Unconfirmed MEDICATIONS (INSTRUCTIONS) LAST TAKEN Active ??acetaminophen ??500 mgPOTID ??amoxicillin 500 mg capsule ??2,000 mgPOONCE ??aspirin [Nancy Low Dose Aspirin] ??81 mgPODAILY ??atorvastatin ??80 mgPO.Q PM ??bupropion HCl ??150 mgPOBID ??calcium carbonate [Calcium 600] ??600 mgPODAILY ??cholecalciferol (vitamin D3) [Vitamin D3] ??25 mcgPODAILY ??fluticasone propionate ??1 inhinhalationBID ??hydrocodone-acetaminophen ??1 [id number] tabs 30 MME/Day ??loratadine ??10 mgPODAILY ??multivitamin ??1 tabPODAILY *Product no longer available ??nitroglycerin ??1 tabPOPRNPRN ??omega-3 fatty acids 1,000 mg capsule ??1,000 mgPODAILY *Product no longer available ??temazepam 15 mg capsule ??15 mgPOQHS ??valsartan 40 mg tablet ??40 mgPODAILY Lab Results Last Value Most Recent Hematology WBC (4.4-10.8) 18.20 10^3/uL H 02/01/22 RBC (4.36-5.78) 4.66 10^6/uL 02/01/22 Hgb (13.5-17.5) 13.2 g/dL L 02/01/22 Hct (40.0-50.0) 39.6 % L 02/01/22 MCV (80-95) 85 fL 02/01/22 MCH (27.0-33.0) 28.3 pg 02/01/22 MCHC (32.0-36.0) 33.3 % 02/01/22 RDW (11.8-14.1) 13.8 % 02/01/22 Plt Count (130-400) 190 10^3/uL 02/01/22 MPV (8.0-11.0) 9.6 fL 02/01/22 Immature Gran % 0.4 02/01/22 Neutrophils % 86.9 02/01/22 Lymphocytes % 8.4 02/01/22 Monocytes % 4.1 02/01/22 Eosinophils % 0.0 02/01/22 Basophils % 0.2 02/01/22 Nucleated RBC % (0.0-0.3) 0.0 % 02/01/22 Absolute Neutrophils (1.2-6.7) 15.82 10^3/uL H 02/01/22 Absolute Lymphocytes (1.2-3.4) 1.53 10^3/uL 02/01/22 Absolute Monocytes (0.1-0.8) 0.75 10^3/uL 02/01/22 Absolute Eosinophils (0.0-0.7) 0.00 10^3/uL 02/01/22 Absolute Basophils (0.0-0.2) 0.04 10^3/uL 02/01/22 Coagulation PT (9.3-11.0) 10.3 sec 05/31/19 INR (0.9-1.1) 1.0? 05/31/19 APTT (21.0-31.4) 24.2 sec 05/31/19 Chemistry Sodium (136-145) 129 mmol/L L 02/01/22 Potassium (3.5-5.1) 4.6 mmol/L 02/01/22 Chloride (98-107) 95 mmol/L L 02/01/22 Carbon Dioxide (21.0-32.0) 24.3 mmol/L 02/01/22 Anion Gap (3-11) 9.7 mmol/L 02/01/22 BUN (7-18) 22 mg/dL H 02/01/22 Creatinine (0.70-1.30) 1.4 mg/dL H 02/01/22 Estimated GFR/1.73 m2 (mL/min/1.73m2) 48.52 02/01/22 Glucose (74-106) 151 mg/dL H 02/01/22 Calcium (8.5-10.1) 8.9 mg/dL 02/01/22 Conjugated Bilirubin (0.00-0.20) 0.10 mg/dL 11/18/17 Magnesium (1.8-2.4) 1.5 mg/dL L 02/01/22 Total Bilirubin (0.2-1.0) 1.2 mg/dL H 02/01/22 AST (15-37) 22 U/L 02/01/22 ALT (16-63) 24 U/L 02/01/22 Alkaline Phosphatase (46-116) 129 U/L H 02/01/22 Troponin I (<or=60) < 50 ng/L 02/01/22 NT-Pro-B Natriuret Pep (<300) 769 pg/mL H 05/03/21 Total Protein (6.4-8.2) 7.5 g/dL 02/01/22 Albumin (3.4-5.0) 3.7 g/dL 02/01/22 LDL Cholesterol Direct (<100) 55 mg/dL 09/02/18 Triglycerides (<150) 59 mg/dL 09/21/20 Total Cholesterol (<200) 130 mg/dL 09/21/20 LDL Cholesterol, Calc (<100) 59 mg/dL 09/21/20 HDL Cholesterol (40-60) 60 mg/dL 09/21/20 Lipase (73-393) 107 U/L 02/01/22 PSA Screen (0.0-6.5) 1.6 ng/mL 07/25/21 Free T4 (0.76-1.46) 1.00 ng/dL 05/31/19 TSH (0.36-3.74) 3.72 uIU/mL 05/03/21 Total Testosterone (240-950) 46 ng/dL L 07/25/21 Free Testosterone (2.88-10.5) 0.92 ng/dL L 07/25/21 Urines Urine Color (Yellow) Yellow 02/01/22 Urine Clarity (Clear) Clear 02/01/22 Urine pH (5-8) 6.5 02/01/22 Ur Specific [place] (1.005-1.025) >= 1.030 H 02/01/22 Urine Protein (Negative) >=300 mg/dL H 02/01/22 Urine Ketones (Negative) Trace mg/dL H 02/01/22 Urine Blood (Negative) Trace-intact H 02/01/22 Urine Nitrite (Negative) Negative 02/01/22 Urine Bilirubin (Negative) Negative 02/01/22 Urine Urobilinogen (Up TO 0.2) 1.0 EU/dL H 02/01/22 Ur Leukocyte Esterase (Negative) Negative 02/01/22 Urine RBC (0-2) 3-5 HPF H 02/01/22 Urine WBC (0-5) 0-2 HPF 02/01/22 Ur Epithelial Cells (Negative) Few HPF 02/01/22 Urine Crystals (Negative) Negative HPF 02/01/22 Urine Bacteria (Negative) Few HPF 02/01/22 Urine Casts (Negative) Negative LPF 02/01/22 Urine Mucus (Negative) Negative 02/01/22 Ur Culture Indicated? No 02/01/22 Urine Glucose (Negative) Negative mg/dL 02/01/22 Serology COVID-19 Source Pending Today SARS-CoV-2 (PCR) Pending Today [facility] Radiology Report Today Hgb (13.5-17.5) 13.2 g/dL L 02/01/22 Body Mass Index (BMI) 27.6 01/15/22 Temperature 36.2 C L 02/01/22 Echocardiogram Ultrasound 05/31/19 Diagnostics Reports Tra Brothers III??81??M??1940 ? Allergy/Adv: terazosin, oxycodone, [pollen] (More??) Close Radiology Report (Signed) Deepika jones - 02/02/22 Chest/Abdomen/Pelvis CT 02/01/22 Shoulder X-Ray (Signed) Vin Forman - 01/15/22 Ribs w/Chest X-Ray (Signed) Anjum Bear - 08/07/21 Myocardial Perfusion Scan Nuc Med (Signed) Bhavana Coleman - 05/31/[address] (Signed) Anjum Bear - 05/03/21 Radiology Report (Signed) vrad,Reports - 01/08/21 Finger X-Ray (Signed) Erna Naqvi - 01/08/21 Knee X-Ray (Signed) Erna Naqvi - 07/10/20 Wrist X-Ray (Signed) Dev Wynne - 06/26/20 Echocardiogram Ultrasound (Signed) Sumeet Hernandez - 05/31/19 Chest X-Ray (Signed) Dev Wynne - 05/31/19 Knee X-Ray (Signed) Erna Naqvi - 03/22/19 Femur X-Ray (Signed) Dev Wynne - 01/22/18 Radiology Report (Signed) vrad,Reports - 01/22/18 Chest X-Ray (Signed) Indigo Davis - 01/07/18 Knee X-Ray (Signed) Indigo Davis - 01/07/18 Femur X-Ray (Signed) Indigo Davis - 01/07/18 Chest X-Ray (Signed) Erna Naqvi - 11/18/17 Patient Name: Tra Brothers III Unit #: [id number] Loc: ER ? Ordering Provider:? Status: REG ER ? Primary Care Provider: Karo Otero Date of Exam: 02/02/22 Sex: M ? : 1940 Age: 81 ? Exam(s) PROCEDURE INFORMATION: Exam: CT Chest Without Contrast; Diagnostic Exam date and time: 02/02/2022 12:32 AM Age: 81 years old Clinical indication: Abdominal pain; Localized; Right lower quadrant (rlq); Patient HX: Rlq abd pain, upper abd pain, R/O appy TECHNIQUE: Imaging protocol: Diagnostic computed tomography of the chest without contrast. Radiation optimization: All CT scans at this facility use at least one of these dose optimization techniques: automated exposure control; mA and/or kV adjustment per patient size (includes targeted exams where dose is matched to clinical indication); or iterative reconstruction. COMPARISON: CT CHEST PE CTA 05/03/2021 10:50 AM FINDINGS: Lungs: There is heterogeneous attenuation of the pulmonary parenchyma, consistent with air trapping from underlying small airways disease. Scattered patchy ground-glass opacities within the lungs. These findings are nonspecific and may represent hypoventilatory change,edema, hemorrhage, or an infectious/inflammatory process (acute or chronic). Pleural spaces: Unremarkable. No pneumothorax. No pleural effusion. Heart: There is severe atherosclerotic calcification of the coronary arteries. There are probable coronary stents present. There is calcification of the cardiac aortic valve annulus. Low attenuation within the cardiac ventricular chambers may represent anemia. Mediastinal space: Oral contrast is seen within the esophagus consistent with gastroesophageal reflux. Lymph nodes: Unremarkable. No enlarged lymph nodes. Vasculature: The aorta demonstrates moderate atherosclerotic calcification. The great vessels show moderate atherosclerotic plaquing at the origins. Pulmonary artery is normal in caliber. Intraperitoneal space: Please see CT of the abdomen and pelvis. Bones/joints:? Old rib fractures present within the left thorax with areas of malunion and nonunion.? No acute fracture. Soft tissues: The soft tissues of the extrathoracic region are unremarkable. Other findings: Motion artifact does moderately limit the sensitivity of this examination. IMPRESSION: 1. Motion artifact does moderately limit the sensitivity of this examination. 2. There is heterogeneous attenuation of the pulmonary parenchyma, consistent with air trapping from underlying small airways disease. 3. Scattered patchy ground-glass opacities within the lungs. These findings are nonspecific and may represent hypoventilatory change,edema, hemorrhage, or an infectious/inflammatory process (acute or chronic). 4. Oral contrast is seen within the esophagus consistent with gastroesophageal reflux. PROCEDURE INFORMATION: Exam: CT Abdomen And Pelvis Without Contrast Exam date and time: 02/02/2022 12:32 AM Age: 81 years old Clinical indication: Abdominal pain; Localized; Right lower quadrant (rlq); Patient HX: Rlq abd pain, upper abd pain, R/O appy TECHNIQUE: Imaging protocol: Computed tomography of the abdomen and pelvis without contrast. Radiation optimization: All CT scans at this facility use at least one of these dose optimization techniques: automated exposure control; mA and/or kV adjustment per patient size (includes targeted exams where dose is matched to clinical indication); or iterative reconstruction. COMPARISON: CT CHEST PE CTA 05/03/2021 10:50 AM FINDINGS: Lungs: Please see CT of the chest and lungs. Liver: There are no focal liver lesions present. Gallbladder and bile ducts: The gallbladder is hydropic. Calcified gallstones present in the neck of the gallbladder with diffuse gallbladder wall thickening, pericholecystic fluid and edema, consistent with acute cholecystitis. Consider gallbladder ultrasound for further evaluation if clinically warranted. Pancreas: Mild atrophy. No ductal dilation. Spleen: The spleen is normal. Adrenal glands: The adrenal glands are normal. Kidneys and ureters: Probable 4.7 cm simple cyst seen within the midpole right kidney although without contrast soft tissue mass cannot be excluded. Kidneys are otherwise unremarkable. Stomach and bowel: The hepatic flexure of the colon shows some pericolonic soft tissue stranding which may be secondary to patient's gallbladder process. There is no evidence of intestinal obstruction. Appendix: A normal appendix is identified. There is no evidence of distention or periappendiceal inflammation to suggest appendicitis. Intraperitoneal space: No free air present. Vasculature: The aorta demonstrates moderate atherosclerotic calcification. The arterial peripheral vasculature demonstrates diffuse moderate atherosclerotic calcification. Lymph nodes: Mildly prominent lymph nodes are present at the aortocaval region and periportal region. Urinary bladder: The bladder is normal. Reproductive: The prostate gland and seminal vesicles are normal. Bones/joints: The lumbar spine demonstrates mild to moderate degenerative changes. The thoracolumbar spine demonstrates moderate degenerative changes at multiple levels.The extra-abdominal soft tissues are normal. Soft tissues: See Bones/joints finding. IMPRESSION: 1. The gallbladder is hydropic. Calcified gallstones present in the neck of the gallbladder with diffuse gallbladder wall thickening, pericholecystic fluid and edema, consistent with acute cholecystitis. Consider gallbladder ultrasound for further evaluation if clinically warranted. 2. Probable 4.7 cm simple cyst seen within the midpole right kidney although without contrast soft tissue mass cannot be excluded. 3. The hepatic flexure of the colon shows some pericolonic soft tissue stranding which may be secondary to patient's gallbladder process. 4. Mildly prominent lymph nodes are present at the aortocaval region and periportal region. This is privileged, confidential information intended only for the provider named. Any use or distribution by any person other than this provider is strictly prohibited. If you receive this report in error, please notify us immediately at [phone] and return the original report to us at the address above. Thank-you. 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: Status: Acute (6) Hypertension: Status: Chronic (7) Cardiomyopathy: Status: Acute (8) Heart palpitations: Status: Acute (9) CAD (coronary artery disease): Status: Chronic (10) HTN (hypertension) with goal to be determined: Status: Acute (11) CKD (chronic kidney disease): Status: Acute (12) Bilateral carotid artery stenosis: (13) History of non-ST elevation myocardial infarction (NSTEMI): Objective Last Vital Signs Temp 36.2 C L 02/01/22 21:04 Pulse 85 02/01/22 21:04 Resp 25 H 02/01/22 21:04 BP 189/107 H 02/01/22 21:04 Pulse Ox 97 02/01/22 21:04 Laboratory Results - last 24 hr 02/01/22 02/01/22 02/01/22 22:04 22:04 22:04 WBC 18.20 H RBC 4.66 Hgb 13.2 L Hct 39.6 L MCV 85 MCH 28.3 MCHC 33.3 RDW 13.8 Plt Count 190 MPV 9.6 Immature Gran % 0.4 Neutrophils % 86.9 Lymphocytes % 8.4 Monocytes % 4.1 Eosinophils % 0.0 Basophils % 0.2 Nucleated RBC % 0.0 Absolute Neutrophils 15.82 H Absolute Lymphocytes 1.53 Absolute Monocytes 0.75 Absolute Eosinophils 0.00 Absolute Basophils 0.04 Sodium 129 L Potassium 4.6 Chloride 95 L Carbon Dioxide 24.3 Anion Gap 9.7 BUN 22 H Creatinine 1.4 H Estimated GFR/1.73 m2 48.52 Glucose 151 H Calcium 8.9 Magnesium 1.5 L Total Bilirubin 1.2 H AST 22 ALT 24 Alkaline Phosphatase 129 H Troponin I < 50 Total Protein 7.5 Albumin 3.7 Lipase 107 Urine Color Urine Clarity Urine pH Ur Specific [place] Urine Protein Urine Ketones Urine Blood Urine Nitrite Urine Bilirubin Urine Urobilinogen Ur Leukocyte Esterase Urine RBC Urine WBC Ur Epithelial Cells Urine Crystals Urine Bacteria Urine Casts Urine Mucus Ur Culture Indicated? Urine Glucose 02/01/22 23:58 WBC RBC Hgb Hct MCV MCH MCHC RDW Plt Count MPV Immature Gran % Neutrophils % Lymphocytes % Monocytes % Eosinophils % Basophils % Nucleated RBC % Absolute Neutrophils Absolute Lymphocytes Absolute Monocytes Absolute Eosinophils Absolute Basophils Sodium Potassium Chloride Carbon Dioxide Anion Gap BUN Creatinine Estimated GFR/1.73 m2 Glucose Calcium Magnesium Total Bilirubin AST ALT Alkaline Phosphatase Troponin I Total Protein Albumin Lipase Urine Color Yellow Urine Clarity Clear Urine pH 6.5 Ur Specific [place] >= 1.030 H Urine Protein >=300 H Urine Ketones Trace H Urine Blood Trace-intact H Urine Nitrite Negative Urine Bilirubin Negative Urine Urobilinogen 1.0 H Ur Leukocyte Esterase Negative Urine RBC 3-5 H Urine WBC 0-2 Ur Epithelial Cells Few Urine Crystals Negative Urine Bacteria Few Urine Casts Negative Urine Mucus Negative Ur Culture Indicated? No Urine Glucose Negative
[2022-02-02] MEDS: PIPERACILLIN/TAZO 4.5 GM in Normal Saline 100 ML IVPB (02:41)
[2022-02-02 02:55] LABS: Source Nasal/Nares
[2022-02-02] MEDS: DEXTROSE 5%-0.45% SALINE 1,000 ML 125 ML IV (03:50)
[2022-02-02] MEDS: Temazepam 15 MG CAP PO ×2 (03:51→21:35)
[2022-02-02] MEDS: Normal Saline Flush 10 ML SYR IVP ×2 (03:51→20:45)
[2022-02-02] MEDS: Acetaminophen 500 MG TAB 1000 MG PO ×3 (03:51→20:45)
[2022-02-02 03:54] LABS: COVID-19 PCR Negative (Negative)
[2022-02-02 06:57] LABS: HCT 36.4 % (40.0-50.0); HGB 11.9 g/dL (13.5-17.5); MCH 28.1 pg (27.0-33.0); MCHC 32.7 % (32.0-36.0); MCV 86 fL (80-95); MPV 9.3 fL (8.0-11.0); Platelet Count 151 10^3/uL (130-400); RBC 4.24 10^6/uL (4.36-5.78); RDW 14.1 % (11.8-14.1); RDW-SD 43.6 fL; WBC 19.32 10^3/uL (4.4-10.8)
[2022-02-02 07:04] LABS: Lipase 54 U/L (73-393)
[2022-02-02 07:21] LABS: Absolute Lymphocyte Count 1.55 10^3/uL (1.2-3.4); Absolute Monocyte Count 0.58 10^3/uL (0.1-0.8); Absolute Neutrophil Count 17.19 10^3/uL (1.2-6.7); Atypical Lymphocytes % 2; Bands % 6
[2022-02-02 07:22] LABS: Diff Comment Manual Differential; RBC Morphology Normal
--- NOTE | 2022-02-02 10:07 | DI.US_ITS ---
Exam(s) US ABDOMEN EXAM: US ABDOMEN CLINICAL HISTORY: ruq pain TECHNIQUE: Ultrasound abdomen performed using standard protocol. COMPARISON: CT CT CHEST/ABD/PEL WO from 02/02/2022 FINDINGS: LIVER: Normal size and echogenicity. Portions of the liver or obscured by bowel gas. No focal liver lesions are seen.. GALLBLADDER: Abnormally distended. Thickened edematous wall. Mild pericholecystic fluid. Gallbladd er sludge and stones in the neck or cystic duct.. MARIN'S SIGN: Positive BILIARY SYSTEM: No intrahepatic or extrahepatic biliary ductal dilation. KIDNEYS: Kidneys are symmetric in size. No evidence of renal calculi. No evidence of hydronephrosis. 3.7 centimeter cyst right kidney. 2.6 centimeter cyst left kidney. No suspicious renal mass identifie d. PANCREAS: Not well seen. Normal where visualized. SPLEEN: Mildly enlarged at 13.8 cm in length. ABDOMINAL AORTA AND IVC: Visualized portions normal caliber. ASCITES: None seen. IMPRESSION: Findings consistent with acute cholecystitis. DATA REPOSITORY:
--- NOTE | 2022-02-02 10:39 | PDOC.CMIN ---
- If Service Date Differs Date of service: 02/02/22 Time of Service: 10:39 Care Management Initial Assess REASON FOR HOSPITALIZATION:: acute cholecystitis PAST MEDICAL HISTORY/PAST SURGICAL HISTORY:: All Active Problems. Abdominal pain (Acute). Nausea (Acute). Chest pain (Acute). Acute cholecystitis (Acute). 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 Bursitis of shoulder, left (Acute). Biceps tendinitis of left upper extremity (Acute). Hypertension (Chronic). Cardiomyopathy (Acute). Heart palpitations (Acute). Pes planus of left foot (Acute). Osteoarthritis of left knee (Acute). De Quervain's tenosynovitis, right (Acute). Injection: 06/13/2021; 01/24/2021. Laceration of left index finger (Acute). Fracture of distal phalanx of left index finger (Acute). 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 De Quervain's tenosynovitis, left (Acute). Steroid injection: 06/26/2020, 02/21/2021. CAD (coronary artery disease) (Chronic). Advance directive discussed with patient (Acute). DVT prophylaxis (Acute). HTN (hypertension) with goal to be determined (Acute). CKD (chronic kidney disease) (Acute). Depression (Chronic). Bigeminal rhythm (Acute). Left knee DJD (Acute). Medical History. Bilateral carotid artery stenosis. History of non-ST elevation myocardial infarction (NSTEMI). November 2017. HLD (hyperlipidemia). Hyperpiesia. Surgical History. History of revision of total replacement of right knee joint. Right TKA - [place] (2003). Two-stage revision for infection -[place] (2008). Hx of cataract surgery. S/P ORIF (open reduction internal fixation) fracture. Right distal femur fracture PREVIOUS FUNCTIONAL STATUS/SOCIAL/FAMILY SUPPORTS:: Tra lives in [place] with his , Jesse. They had one child who . 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 He retired to [place], and later moved to [place], about three years ago. He is independent at baseline. CURRENT FUNCTIONAL STATUS:: Tra was in surgery when met with his , Jesse, who was in his room, waiting. She stated that she expected him to return shortly. She stated that they are very independent, although he has just recently recovered from surgery, and sometimes uses a cane for ambulation. Later, Tra returned from the OR. Per report, the procedure went well. Tra's shared that she did not expect that he would require services in the community post surgically, as she is a retired RN, who will be caring for him at home. CM will continue to follow. ADVANCE DIRECTIVES:: On file, , Jesse listed as [facility]. Has patient been provided with info about the portal/API?: Yes Did the patient sign up for the portal?: No CODE STATUS:: Full Code INSURANCE COVERAGE / FINANCIAL ISSUES:: [facility] MCR replacement CURRENT HOME/COMMUNITY SERVICES/EQUIPMENT:: No current services or equipment. PRIMARY CARE PHYSICIAN:: Karo Otero POTENTIAL DISCHARGE NEEDS:: Evaluations for further needs, follow up appointments. PATIENT/FAMILY EDUCATION NEEDS:: Review discharge instructions and limitations, discussion of self care needs including ask me three. ANTICIPATED BARRIERS TO DISCHARGE:: None identified. TRANSPORTATION:: Via private vehicle by his . PLAN:: Anticipate Tra will return home once medically cleared. He will be driven home via private vehicle by family. He will follow up with his PCP and discharge plan of care. CM will continue to follow.
--- NOTE | 2022-02-02 10:40 | DI.VRAD_ITS ---
PROCEDURE INFORMATION: Exam: US Abdomen Complete Exam date and time: 02/02/2022 9:30 AM Age: 81 years old Clinical indication: Other: Ruq pain, f/u CT TECHNIQUE: Imaging protocol: Real-time ultrasound of the abdomen with image documentation. Complete exam. COMPARISON: CT CHEST/ABD/PEL WO 02/02/2022 12:32 AM FINDINGS: Liver: Limited visualization. No significant abnormality is observed. Gallbladder: There is distention of the gallbladder without evidence of gallstones versus sludge, wall thickening, and trace pericholecystic fluid. Positive sonographic Lemos sign. Biliary ducts: Normal. No stones. No dilation. Common duct is normal, 4 mm. Pancreas: Obscured by midline bowel gas. Right kidney: The right kidney measures 10.6 x 5.8 x 3.9 cm. There is a cystic structure in the midportion of the right kidney measuring 3.0 x 3.7 x 3.3 cm. No visualized hydronephrosis. Left kidney: There is an exophytic cystic structure emanating from the superior pole of the left kidney measuring 2.5 x 2.6 x 2.3 cm. The left kidney measures 12.4 x 4.5 x 4.9 cm. No hydronephrosis. Spleen: Normal. No splenomegaly. Aorta: Normal. No aneurysm. Inferior vena cava: Normal. IMPRESSION: 1. Findings suspicious for acute cholecystitis. 2. Bilateral exophytic simple appearing renal cysts. These have been visualized on previous cross-sectional imaging. Dictated and Authenticated by: Leroy Mccabe MD. Ordering:JOE Craft MD
--- NOTE | 2022-02-02 10:47 | W.PM.HP.N ---
Date of service: 02/02/22 Time of Service: 10:09 Assessment and Plan Assessment and plan (1) Acute cholecystitis: Status: Acute Assessment and plan: 81 yo man with acute cholecystitis clinically as well as proven on imaging. He is HD stable. I recommend proceeding with laparopscopic cholecystectomy. We talked about GB anatomy, purpose and the role for removing it. Him and his agree with indications, possible risks as well as the benefits of cholecystectomy and wish to proceed. We talked about low liklihood but possibility of bile leak, and bile duct injury with GB surgery. PLAN: Lap Cholecystectomy History of Present Illness Narrative: 81 yo healthy man developed acute onset of chest discomfort yesterday morning that then migrated to below the right rib cage where it has stayed since. Since the pain didn't go away, he came into the ED last night to be evaluated. CT scan showed pericholecystic fluid and stone at neck of GB. He had elevated WBC. He has never had attacks of pain like this before. He has never had intra-abdominal surgery before. He is not on blood thinners but does take a baby aspirin. He has otherwise not been recently ill. He does have heart stents from many years ago. He says he does regular cardiac rehab and has no current or acute cardiac issues and his assistant director of nursing is happy with where he is at. 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 (Acute) Bursitis of shoulder, left (Acute) Biceps tendinitis of left upper extremity (Acute) Hypertension (Chronic) Cardiomyopathy (Acute) Heart palpitations (Acute) Pes planus of left foot (Acute) Osteoarthritis of left knee (Acute) De Quervain's tenosynovitis, right (Acute) Injection: 06/13/2021; 01/24/2021 Laceration of left index finger (Acute) Fracture of distal phalanx of left index finger (Acute) 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 (Acute) De Quervain's tenosynovitis, left (Acute) Steroid injection: 06/26/2020, 02/21/2021 CAD (coronary artery disease) (Chronic) Advance directive discussed with patient (Acute) DVT prophylaxis (Acute) HTN (hypertension) with goal to be determined (Acute) CKD (chronic kidney disease) (Acute) Depression (Chronic) Bigeminal rhythm (Acute) Left knee DJD (Acute) Medical History (Updated 02/02/22 @ 12:13 by Ventura Stuart MD) Bilateral carotid artery stenosis History of non-ST elevation myocardial infarction (NSTEMI) November 2017 HLD (hyperlipidemia) Hyperpiesia Surgical History History of revision of total replacement of right knee joint Right TKA - [place] (2003) Two-stage revision for infection -[place] (2008) Hx of cataract surgery S/P ORIF (open reduction internal fixation) fracture Right distal femur fracture Social History Smoking/Tobacco Use Status: Former Tobacco Use Smoking risk assessment performed?: Yes Alcohol Intake: former Substance use type: does not use Do you feel safe at home: Yes Do you feel safe in your relationship?: Yes Additional Social history: Patient is , and together they had one child who . He does have grandchildren. 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 Previously retired to [place] prior to moving to [place] 3 years ago. Prior history of tobacco, quit 25 years ago. Prior history of EtOH use, last used 40 years ago. Meds Allergies and Home Medications Allergies Allergy/AdvReac Type Severity Reaction Status Date / Time terazosin Allergy Severe Verified 01/15/22 13:18 oxycodone AdvReac Intermediate Nausea Verified 01/15/22 13:18 pollen Allergy Uncoded 01/15/22 13:18 Home Medications Medication Instructions Recorded Confirmed Type aspirin 81 mg tablet,delayed 81 mg PO DAILY 11/18/17 02/02/22 History release (Nancy Low Dose Aspirin) bupropion HCl 150 mg tablet,12 hr 150 mg PO BID 11/18/17 02/02/22 History sustained-release multivitamin 1 tab PO DAILY 11/18/17 02/02/22 History nitroglycerin 0.4 mg sublingual 1 tab PO PRN PRN 01/07/18 02/02/22 History tablet atorvastatin 80 mg tablet 80 mg PO .Q PM 05/31/19 02/02/22 History fluticasone propionate 50 1 inh inhalation BID 05/31/19 02/02/22 History mcg/actuation blister powder for inhalation loratadine 10 mg capsule 10 mg PO DAILY 05/03/21 02/02/22 History amoxicillin 500 mg capsule 2,000 mg PO ONCE 05/08/21 02/02/22 History omega-3 fatty acids 1,000 mg 1,000 mg PO DAILY 05/25/21 02/02/22 History capsule (Fish Oil Concentrate) temazepam 15 mg capsule (Restoril) 15 mg PO QHS 05/25/21 02/02/22 History acetaminophen 500 mg tablet 500 mg PO TID 08/07/21 02/02/22 History calcium carbonate 600 mg calcium 600 mg PO DAILY 08/07/21 02/02/22 History (1,500 mg) tablet (Calcium) cholecalciferol (vitamin D3) 25 25 mcg PO DAILY 08/07/21 02/02/22 History mcg (1,000 unit) tablet (Vitamin D3) valsartan 40 mg tablet 40 mg PO DAILY 01/15/22 02/02/22 History Exam Narrative Exam Narrative: Gen: Non toxic and interactive Neuro: AxOx3 Psych: Appropriate Mood and affect. Good insight and understanding. Heart: Reg Abdomen: Soft, focal RUQ tenderness with mckenna sign. No peritoneal signs. Nondistended. Results Labs Result diagrams: 02/02/22 06:40 02/01/22 22:04 Labs: Laboratory Results - last 24 hr 02/01/22 02/01/22 02/01/22 22:04 22:04 22:04 WBC 18.20 H RBC 4.66 Hgb 13.2 L Hct 39.6 L MCV 85 MCH 28.3 MCHC 33.3 RDW 13.8 Plt Count 190 MPV 9.6 Immature Gran % 0.4 Neutrophils % 86.9 Band Neutrophils % Lymphocytes % 8.4 Atypical Lymphs % Monocytes % 4.1 Eosinophils % 0.0 Basophils % 0.2 Nucleated RBC % 0.0 Absolute Neutrophils 15.82 H Absolute Lymphocytes 1.53 Absolute Monocytes 0.75 Absolute Eosinophils 0.00 Absolute Basophils 0.04 RBC Morphology Sodium 129 L Potassium 4.6 Chloride 95 L Carbon Dioxide 24.3 Anion Gap 9.7 BUN 22 H Creatinine 1.4 H Estimated GFR/1.73 m2 48.52 Glucose 151 H Calcium 8.9 Magnesium 1.5 L Total Bilirubin 1.2 H AST 22 ALT 24 Alkaline Phosphatase 129 H Troponin I < 50 Total Protein 7.5 Albumin 3.7 Lipase 107 Urine Color Urine Clarity Urine pH Ur Specific [place] Urine Protein Urine Ketones Urine Blood Urine Nitrite Urine Bilirubin Urine Urobilinogen Ur Leukocyte Esterase Urine RBC Urine WBC Ur Epithelial Cells Urine Crystals Urine Bacteria Urine Casts Urine Mucus Ur Culture Indicated? Urine Glucose COVID-19 Source SARS-CoV-2 (PCR) 02/01/22 02/02/22 02/02/22 23:58 02:51 06:40 WBC RBC Hgb Hct MCV MCH MCHC RDW Plt Count MPV Immature Gran % Neutrophils % Band Neutrophils % Lymphocytes % Atypical Lymphs % Monocytes % Eosinophils % Basophils % Nucleated RBC % Absolute Neutrophils Absolute Lymphocytes Absolute Monocytes Absolute Eosinophils Absolute Basophils RBC Morphology Sodium Potassium Chloride Carbon Dioxide Anion Gap BUN Creatinine Estimated GFR/1.73 m2 Glucose Calcium Magnesium Total Bilirubin AST ALT Alkaline Phosphatase Troponin I Total Protein Albumin Lipase 54 Urine Color Yellow Urine Clarity Clear Urine pH 6.5 Ur Specific [place] >= 1.030 H Urine Protein >=300 H Urine Ketones Trace H Urine Blood Trace-intact H Urine Nitrite Negative Urine Bilirubin Negative Urine Urobilinogen 1.0 H Ur Leukocyte Esterase Negative Urine RBC 3-5 H Urine WBC 0-2 Ur Epithelial Cells Few Urine Crystals Negative Urine Bacteria Few Urine Casts Negative Urine Mucus Negative Ur Culture Indicated? No Urine Glucose Negative COVID-19 Source Nasal/Nares SARS-CoV-2 (PCR) Negative 02/02/22 06:40 WBC 19.32 H RBC 4.24 L Hgb 11.9 L Hct 36.4 L MCV 86 MCH 28.1 MCHC 32.7 RDW 14.1 Plt Count 151 MPV 9.3 Immature Gran % 0.0 Neutrophils % 83.0 Band Neutrophils % 6 Lymphocytes % 6.0 Atypical Lymphs % 2 Monocytes % 3.0 Eosinophils % 0.0 Basophils % 0.0 Nucleated RBC % 0.0 Absolute Neutrophils 17.19 H Absolute Lymphocytes 1.55 Absolute Monocytes 0.58 Absolute Eosinophils 0.00 Absolute Basophils 0.00 RBC Morphology Normal Sodium Potassium Chloride Carbon Dioxide Anion Gap BUN Creatinine Estimated GFR/1.73 m2 Glucose Calcium Magnesium Total Bilirubin AST ALT Alkaline Phosphatase Troponin I Total Protein Albumin Lipase Urine Color Urine Clarity Urine pH Ur Specific [place] Urine Protein Urine Ketones Urine Blood Urine Nitrite Urine Bilirubin Urine Urobilinogen Ur Leukocyte Esterase Urine RBC Urine WBC Ur Epithelial Cells Urine Crystals Urine Bacteria Urine Casts Urine Mucus Ur Culture Indicated? Urine Glucose COVID-19 Source SARS-CoV-2 (PCR) Last Vital Signs Temp 100.8 F H 02/02/22 09:02 Pulse 95 H 02/02/22 07:45 Resp 21 02/02/22 07:45 BP 150/83 H 02/02/22 07:45 Pulse Ox 95 02/02/22 07:45
--- NOTE | 2022-02-02 11:05 | W.ANESPRE ---
General Info Date of Service Date Performed: 02/02/22 Height: 6 ft 2 in Weight: 91.626 kg Body Mass Index (BMI): 25.9 Meds Allergies and Home Medications Allergies Allergy/AdvReac Type Severity Reaction Status Date / Time terazosin Allergy Severe Verified 01/15/22 13:18 oxycodone AdvReac Intermediate Nausea Verified 01/15/22 13:18 pollen Allergy Uncoded 01/15/22 13:18 Home Medication Medication Instructions Recorded aspirin 81 mg tablet,delayed 81 mg PO DAILY 11/18/17 release (Nancy Low Dose Aspirin) bupropion HCl 150 mg tablet,12 hr 150 mg PO BID 11/18/17 sustained-release multivitamin 1 tab PO DAILY 11/18/17 nitroglycerin 0.4 mg sublingual 1 tab PO PRN PRN 01/07/18 tablet atorvastatin 80 mg tablet 80 mg PO .Q PM 05/31/19 fluticasone propionate 50 1 inh inhalation BID 05/31/19 mcg/actuation blister powder for inhalation loratadine 10 mg capsule 10 mg PO DAILY 05/03/21 amoxicillin 500 mg capsule 2,000 mg PO ONCE 05/08/21 omega-3 fatty acids 1,000 mg 1,000 mg PO DAILY 05/25/21 capsule (Fish Oil Concentrate) temazepam 15 mg capsule (Restoril) 15 mg PO QHS 05/25/21 acetaminophen 500 mg tablet 500 mg PO TID 08/07/21 calcium carbonate 600 mg calcium 600 mg PO DAILY 08/07/21 (1,500 mg) tablet (Calcium) cholecalciferol (vitamin D3) 25 25 mcg PO DAILY 08/07/21 mcg (1,000 unit) tablet (Vitamin D3) valsartan 40 mg tablet 40 mg PO DAILY 01/15/22 Current Visit Medications: Current Medications Generic Name Dose Route Start Last Admin Trade Name Freq PRN Reason Stop Dose Admin Acetaminophen 1,000 mg 02/02/22 12:00 Acetaminophen 500 Mg Tab PO Q8H MARY Hydrocodone Bitart/Acetaminophen 1 tab 02/02/22 07:15 Hydrocodone 10/Acetaminophen 325 Tab PO Q8H PRN PRN pain Bupropion HCl 150 mg 02/02/22 08:30 Bupropion-Cr 150 Mg Tabcr PO BID MARY Enoxaparin Sodium 40 mg 02/02/22 08:30 Enoxaparin 40 Mg/0.4 Ml Syr SC Q24H MARY Sodium Chloride 500 mls @ 0 mls/hr 02/02/22 02:03 Saline 500ml Bag IV PRN PRN As Directed Dextrose/Sodium Chloride 1,000 mls @ 125 mls/hr 02/02/22 02:15 02/02/22 03:50 Dextrose 5%-0.45% Ns IV 125 mls/hr INFUSION MARY Administration Piperacillin Sod/Tazobactam 50 mls @ 100 mls/hr 02/02/22 10:48 Sod 3.375 gm/ Sodium Chloride IVPB 02/02/22 11:17 NOW STA Protocol IV Miscellaneous Supplies 1 each 02/02/22 02:15 Iv Access IV DIRECTED [facility] Loratadine 10 mg 02/02/22 08:30 Loratidine 10 Mg Tab PO DAILY [facility] Miscellaneous Medication 473 ml 02/01/22 22:30 02/01/22 22:23 Breeza Beverage 473 Ml Btl PO 03/03/22 23:59 473 ml DIRECTED [facility] Administration Mometasone Furoate 1 puff 02/02/22 20:00 Mometasone 220 Mcg 14 Dose Inhaler IH QPM [facility] Morphine Sulfate 2 mg 02/02/22 02:03 Morphine 2 Mg/Ml Syr IVP Q1H PRN PRN Ondansetron HCl 4 mg 02/02/22 02:03 Ondansetron 4 Mg/2 Ml Vial IVP Q4H PRN PRN Sodium Chloride 0 ml 02/01/22 21:38 02/02/22 03:51 Normal Saline Flush 10 Ml Syr IVP 10 ml PRN PRN Administration Temazepam 15 mg 02/02/22 03:00 02/02/22 03:51 Temazepam 15 Mg Cap PO 15 mg HS [facility] Administration Valsartan 40 mg 02/02/22 08:30 Valsartan 40 Mg Tab PO DAILY [facility] PFSH Active Problems Active Problems: Problem Status Onset Code Abdominal pain R10.9 Nausea R11.0 Chest pain R07.9 Acute cholecystitis K81.0 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 M19.012 Bursitis of shoulder, left M75.52 Biceps tendinitis of left upper extremity M75.22 Hypertension I10 Cardiomyopathy I42.9 Heart palpitations R00.2 Pes planus of left foot M21.42 Osteoarthritis of left knee M17.12 De Quervain's tenosynovitis, right M65.4 Laceration of left index finger S61.211A Fracture of distal phalanx of left index finger S62.631A 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.12 De Quervain's tenosynovitis, left M65.4 CAD (coronary artery disease) I25.10 Advance directive discussed with patient Z71.89 DVT prophylaxis Z29.9 HTN (hypertension) with goal to be determined I10 CKD (chronic kidney disease) N18.9 Depression F32.9 Bigeminal rhythm I49.9 Left knee DJD M17.12 Medical History Medical History (Updated 02/02/22 @ 01:28 by Mauricio Clarke MD) Bilateral carotid artery stenosis History of non-ST elevation myocardial infarction (NSTEMI) November 2017 HLD (hyperlipidemia) Hyperpiesia Surgical History Surgical History History of revision of total replacement of right knee joint Right TKA - [place] (2003) Two-stage revision for infection -[place] (2008) Hx of cataract surgery S/P ORIF (open reduction internal fixation) fracture Right distal femur fracture Tobacco Smoking/Tobacco Use Status: Former Tobacco Use Alcohol Alcohol Intake: former Substance Use Substance use type: does not use Vital Signs and Lab Results Vital Signs Most Recent Vital Signs in EMR: Most Recent Vital Signs Temp Pulse Resp BP Pulse Ox 38.2 C H 95 H 21 150/83 H 95 02/02/22 09:02 02/02/22 07:45 02/02/22 07:45 02/02/22 07:45 02/02/22 07:45 Lab Results Result Diagrams: 02/02/22 06:40 02/01/22 22:04 Blood Type / Crossmatch: No Data to Display Complete Blood Count: White Blood Count 19.32 10^3/uL (4.4-10.8) H 02/02/22 06:40 Red Blood Count 4.24 10^6/uL (4.36-5.78) L 02/02/22 06:40 Hemoglobin 11.9 g/dL (13.5-17.5) L 02/02/22 06:40 Hematocrit 36.4 % (40.0-50.0) L 02/02/22 06:40 Platelet Count 151 10^3/uL (130-400) 02/02/22 06:40 Complete Metabolic Panel: Sodium Level 129 mmol/L (136-145) L 02/01/22 22:04 Potassium Level 4.6 mmol/L (3.5-5.1) 02/01/22 22:04 Chloride Level 95 mmol/L (98-107) L 02/01/22 22:04 Carbon Dioxide Level 24.3 mmol/L (21.0-32.0) 02/01/22 22:04 Blood Urea Nitrogen 22 mg/dL (7-18) H 02/01/22 22:04 Creatinine 1.4 mg/dL (0.70-1.30) H 02/01/22 22:04 Estimated GFR/1.73 m2 48.52 (mL/min/1.73m2) 02/01/22 22:04 Magnesium Level 1.5 mg/dL (1.8-2.4) L 02/01/22 22:04 Calcium Level 8.9 mg/dL (8.5-10.1) 02/01/22 22:04 Albumin 3.7 g/dL (3.4-5.0) 02/01/22 22:04 Glucose Level 151 mg/dL (74-106) H 02/01/22 22:04 Liver Function Panel: Alanine Aminotransferase (ALT/SGPT) 24 U/L (16-63) 02/01/22 22:04 Aspartate Amino Transf (AST/SGOT) 22 U/L (15-37) 02/01/22 22:04 Coagulation Panel: No Data to Display Cardiac Panel: Troponin I < 50 ng/L (<or=60) 02/01/22 Arterial Blood Gas: No Data to Display Venous Blood Gas: No Data to Display Pancreas Panel: Lipase 54 U/L (73-393) 02/02/22 06:40 Thyroid Panel: No Data to Display Infectious Disease: Coronavirus (COVID-19)(PCR) Negative (Negative) 02/02/22 02:51 Coronavirus 2019 Source Nasal/Nares 02/02/22 02:51 Blood Cultures: No Data to Display Toxicology Panel: No Data to Display Imaging and Studies Imaging and Studies Study information below may be from another EMR and interpreted by another provider. Please see original notes in EMR for more complete details. EKG Summary: Conclusion Sinus rhythm...normal P axis, V-rate 60- [address] interval...CT >212, V-rate 50- 90. Sinus. No STEMI. Stress Test Summary: Stress ECG Conclusion 1. The resting electrocardiogram showed sinus rhythm, poor R wave progression unable to exclude old anteroseptal NM 2. Patient underwent pharmacologic stress with regadenoson. Peak heart rate achieved was 55% of maximal for age 3. Electrocardiographically the test was nondiagnostic due to inadequate heart rate Echocardiogram Summary: Conclusion Image quality was limited due to frequent PVCs Left Ventricle : The left ventricle is normal size. Mild concentric left ventricular hypertrophy. There is cavity obliteration and pre-PVC beats. There is discrete upper septal wall thickening. Could not determine diastolic function given frequency of PVCs. There is normal LV segmental wall motion. LVEF is 50-55%. Right Ventricle : The right ventricle is normal size. The right ventricular systolic function is normal. Atria : The left atrium size is normal. The right atrium size is normal. Aortic Valve : Aortic valve is trileaflet. Aortic valve is thickened but has adequate excursion. Mild aortic regurgitation. There is no aortic valvular stenosis. Mitral Valve : The mitral valve is normal in structure. Mild mitral regurgitation. No evidence of mitral valve stenosis. Tricuspid Valve : The tricuspid valve is normal in structure. Trace tricuspid regurgitation. Pulmonic Valve : Trace pulmonic regurgitation. Great Vessels : IVC is not well-visualized There is no prior echocardiogram available for comparison Anesthesia Assessment and Plan Anesthesia History Personal History: Delayed Emergence Family History: No Family History of Anesthesia Complications Exercise Tolerance Exercise Tolerance: Metabolic Equivalents>4 Pertinent Negatives Pertinent Negatives: No Symptoms of GERD, No Major Pulmonary Symptoms or Complaints (Recent allergies) and No History of CVA/TIA Cardiac & Pulmonary Exam Cardiac Exam: Normal S1/S2 Heart Sounds Pulmonary Exam: Clear Bilateral Breath Sounds and Seasonal Allergies Implantable Cardiac Device Does patient have a Pacemaker or an ICD?: No Airway Exam Known Difficult Airway: No Mallampati Class: 3 Mouth Opening: Normal (> 3cm) Thyromental Distance: Greater than 3 cm Neck Range of Motion: Full ROM Neck Circumference: Normal Teeth Condition: Normal Dentition (A few missing teeth) ASA Classification ASA Score: ASA 3 Emergency Case?: Yes NPO Status NPO Status: NPO Clears >2 hours, Solids >8 hours Anesthesia Plan Resuscitation Status: Full Code Anesthesia Technique: General Anesthesia Airway Planned: Endotracheal Tube Monitors Used: Standard Monitors
[2022-02-02] MEDS: PIPERACILLIN/TAZO 3.375 GM in Normal Saline 50 ML IVPB (11:28)
[2022-02-02] MEDS: Lactated Ringers 1,000 ML 30 ML IV (12:05)
[2022-02-02] MEDS: Bupivacaine 0.5% Pres-Free 30 ML VIAL (13:05)
--- NOTE | 2022-02-02 13:15 | GB_PTH ---
PATIENT: Tra Brothers III LOC: U#:[id number] AGE/SX: 81/M ROOM: [id number] RE02/02/[address]: Luana Erwin : 1940 BED: A DIS: 02/03/2022 SPEC #: [id number] RECD: 02/04/22 11:59 STATUS: SOUMagdalene REQ #: [id number] ZAIRA: 02/02/22 13:[address]: Luana Erwin DEPT: Surgical Specimen RECD BY: Melissa Soria ENTERED: 02/04/22 12:00 SP TYPE: GB OTHR DR: Karo Otero Tissues: 1 - GALLBLADDER Procedures: GROSS AND MICRO LEVEL 3 Comments: [id number]
--- NOTE | 2022-02-02 13:47 | W.PM.OP ---
Date of service: 02/02/22 Time of Service: 13:47 Operative Note Operative Note PRE-OP DIAGNOSIS: acute cholecystitis POST-OP DIAGNOSIS: same PROCEDURE: Laparoscopic Cholecystectomy SURGEON: Ventura Stuart Refer to Anesthesia Record ESTIMATED BLOOD LOSS: 25 Procedure Description: Procedures performed: Laparoscopic cholecystectomy Preoperative diagnosis: Acute cholecystitis Postoperative diagnosis: Same Surgeon: Ventura Stuart Geologic Technician: None Anesthesia: General Complications: None Intraoperative findings: Severely distended and inflamed gallbladder with normal biliary anatomy. Estimated blood loss: Minimal Drains: None Procedure in detail: The patient gave written consent and was in agreement with the indications, potential risks as well as the benefits of surgery. He was taken to the operating room and laid supine on the operating table. Anesthesia was administered which he tolerated well. His arms were outstretched. He is already receiving antibiotics as well as DVT prophylaxis. We prepped and draped the abdomen in sterile fashion. A timeout was performed and when we were all in agreement we began the procedure. A Veress needle was used to insufflate the abdomen around the umbilicus. An Optiview trocar was used to enter the abdominal cavity. Upon entering the cavity, a very distended and very inflamed gallbladder was immediately appreciated in the right upper quadrant. 2 more trochars were placed laterally under direct visualization a 12 mm port was placed in the epigastrium under visualization. A grasper was placed onto the dome of the fundus and the gallbladder was retracted towards the patient's left shoulder. This classic and usual move caused a hole in the gallbladder and it was decompressed immediately. Laparoscopic suction was used to control the bilious spillage. No stones were spilled. The gallbladder was then again grasped and retracted towards the shoulder. This nicely exposed the cystic plate. Careful blunt and sharp dissection was performed to dissect out to structures only thus performing the critical view. The entire cystic plate was exposed and there is only 2 structures going into the gallbladder consistent with a cystic duct and the cystic artery. There is no posterior branch to the artery. Clips were placed across both structures and they were divided. The gallbladder was then removed off the gallbladder fossa using LigaSure for hemostasis. Once completely freed it was placed in an Endo Catch bag and removed out of the abdomen. 12 mm port site was closed through the fascia with an 0 Vicryl stitch. I rechecked for hemostasis in the gallbladder fossa as well as the lateral margin to the liver and hemostasis was confirmed to be excellent. The 5 mm trocar sites were removed under visualization. The skin was closed with Vicryl and Dermabond on top. All the sponge, instrument and sharps counts were correct. The patient tolerated the procedure well and was taken to the PACU in hemodynamically stable condition. 's
--- NOTE | 2022-02-02 15:23 | W.ANESPOSTOP ---
Postoperative Evaluation Date, Time and Location Date Performed: 02/02/22 Time Performed: 15:23 Patient Location: Day Surgery Unit Vital Signs Most Recent Imported Vital Signs: Most Recent Vital Signs Temp Pulse Resp BP Pulse Ox 37.6 C H 82 30 H 134/83 95 02/02/22 14:37 02/02/22 14:37 02/02/22 14:37 02/02/22 14:37 02/02/22 14:37 Pain Score Most Recent Pain Score: Most Recent Pain Score Pain Level 2 02/02/22 14:37 Assessment Mental Status: Arousable with meaningful communication Airway and Respiratory Function: Patent airway with normal (patient baseline) respiratory exam Cardiovascular Function: Hemodynamically Stable Hydration Status: Adequately Hydrated Nausea & Vomiting: No Nausea or Vomiting Pain: Pain is tolerable per patient Peripheral Nerve Block: Patient did not receive a nerve block Postoperative Comments:: Discussed care with patient and his at bedside. No questions or concerns. Discussed incentive spirometry and my wish for the patient to utilize with patient, his spouse, surgeon, and RN.
[2022-02-02] MEDS: Mometasone 220 MCG 14 DOSE INHALER 1 PUFF IH (20:42)
[2022-02-02] MEDS: buPROPion-CR 150 MG TABCR PO (20:42)
[2022-02-03 07:30] VITALS: BP 135/75; PULSE 81; RESP 23; TEMP 36.6; O2SAT 94
[2022-02-03] MEDS: buPROPion-CR 150 MG TABCR PO (07:46)
[2022-02-03] MEDS: Loratidine 10 MG TAB PO (07:46)
[2022-02-03] MEDS: Enoxaparin 40 MG/0.4 ML SYR SC (07:46)
[2022-02-03] MEDS: Valsartan 40 MG TAB PO (07:46)
[2022-02-03] MEDS: Normal Saline Flush 10 ML SYR IVP (07:47)
[2022-02-03] MEDS: Acetaminophen 500 MG TAB 1000 MG PO (08:28)
--- NOTE | 2022-02-03 11:04 | W.PM.PROGNOT ---
Date of Service Date of service: 02/03/22 Time of Service: 10:00 Assessment and Plan Assessment and plan (1) Acute cholecystitis: Status: Acute Assessment and plan: POD 1 from laparoscopic cholecystectomy. HD stable. Doing well. Cleared for DC home. Subjective Subjective Interval history since last seen: No issues overnight. No fevers. Pain controlled. Tolerating diet. Wants to go home. Exam Narrative Exam Narrative: Gen: Nontoxic and interactive Neuro: AxOx3 Psych: Appropriate mood and affect, good insight and understanding Abdomen: Soft, nondistended. Grossly nontender. Incisions look perfect. Objective Last Vital Signs Temp 97.9 F 02/03/22 07:30 Pulse 81 02/03/22 07:30 Resp 23 02/03/22 07:30 BP 135/75 02/03/22 07:30 Pulse Ox 94 02/03/22 07:30
--- NOTE | 2022-02-03 17:31 | PDOC.CMDIS ---
- If Service Date Differs Date of service: 02/03/22 Time of Service: 17:31 LACE Index Scoring Tool - Questions: Length of Stay (in days): 1 Acuity (Admit via E.D.?): Yes Comorbidities: Previous M.I., Liver or Renal Disease E.D. Visits: 3 - Answers: Total Score: 12 Risk of Readmission: High Risk Care Management Discharge Reason for Hospitalization: acute cholecystitis Discharge Plan: Tra returned home today with no new services. His drove him home via private vehicle. He will follow up with his PCP and discharge plan of care. Patient/Family Education Needs: Review discharge instructions and limitations, discussion of self care needs including ask me three.
== END 2022-02-03 13:03 | disposition home or self-care (01) | DRG 418 ==
LOC: ER 02-02 02:32 → MS 02-02 03:05
PROVIDERS: Physician Assistant; Student in an Organized Health Care Education/Training Program; Admitting Provider Surgery; Emergency Provider Emergency Medicine; PCP Family Medicine; Visit Provider Surgery
PROC: 0FT44ZZ Resection of Gallbladder, Percutaneous Endoscopic Approach (ICD-10-PCS; CPT 47562; principal; 2022-02-02 12:00)
DX: K81.0 Acute cholecystitis (principal); I42.9 Cardiomyopathy, unspecified; I12.9 Hypertensive chronic kidney disease with stage 1 through stage 4 chronic kidney disease, or unspecified chronic kidney disease; F32.A Depression, unspecified; N18.9 Chronic kidney disease, unspecified; E78.5 Hyperlipidemia, unspecified; I25.10 Atherosclerotic heart disease of native coronary artery without angina pectoris; M19.012 Primary osteoarthritis, left shoulder; M17.12 Unilateral primary osteoarthritis, left knee; M18.12 Unilateral primary osteoarthritis of first carpometacarpal joint, left hand; R00.8 Other abnormalities of heart beat; R07.89 Other chest pain; Z96.651 Presence of right artificial knee joint; Z95.5 Presence of coronary angioplasty implant and graft; I25.2 Old myocardial infarction; Z87.891 Personal history of nicotine dependence
CPT/HCPCS: 47562; 36415; 71250; 80053; 83690; 87635; 93005; 96361; 96365; 96367; 96375; 99223; 99285; J1650; 74176; 76700; 81003; 81015; 83735; 84484; 85025; 88304; 93010; J1100; J2370; J2405; J2543; J2704; J3475; J3490

== ENCOUNTER → 2022-02-07 11:23 | Outpatient (BNVA) | payer MEDICARE, SELFPAY | PROVIDERS: PCP Family Medicine; Referring Provider Family Medicine; Visit Provider Physician Assistant Surgical | DX: M17.12 Unilateral primary osteoarthritis, left knee (principal) | CPT/HCPCS: 20610; J1040 ==

== ENCOUNTER 2022-02-14 09:00 | Outpatient (RCR) | payer SELFPAY ==
[2022-01-16 00:06] VITALS: BP 150/83; PULSE 82
[2022-01-17 08:56] VITALS: BP 145/84; PULSE 49
[2022-01-24 09:11] VITALS: BP 143/82; PULSE 87
[2022-01-29 09:31] VITALS: BP 135/79; PULSE 84
[2022-01-31 09:02] VITALS: BP 160/94; PULSE 74
[2022-02-12 09:26] VITALS: BP 141/79; PULSE 85
[2022-02-14 09:00] VITALS: BP 149/85; PULSE 80
== END 2022-02-14 23:59 | disposition home or self-care (01) ==
LOC: CR 09:00
PROVIDERS: PCP Family Medicine; Visit Provider Internal Medicine Cardiovascular Disease
DX: R69 Illness, unspecified (principal)

== ENCOUNTER → 2022-02-19 10:40 | Outpatient (BNVA) | payer MEDICARE, SELFPAY | PROVIDERS: PCP Family Medicine; Referring Provider Family Medicine; Visit Provider Physical Therapy Assistant | DX: Z48.815 Encounter for surgical aftercare following surgery on the digestive system (principal) ==

== ENCOUNTER 2022-03-14 08:52 | Outpatient (RCR) | payer SELFPAY ==
[2022-02-19 09:19] VITALS: BP 137/84; PULSE 88
[2022-02-21 09:09] VITALS: BP 160/93; PULSE 86
[2022-02-26 08:48] VITALS: BP 152/86; PULSE 84
[2022-02-28 08:56] VITALS: BP 165/87; PULSE 78
[2022-03-05 08:46] VITALS: BP 155/87; PULSE 85
[2022-03-07 08:55] VITALS: BP 153/83; PULSE 88
[2022-03-07 09:52] VITALS: BP 153/83; PULSE 88
[2022-03-14 08:48] VITALS: BP 163/92; PULSE 82
== END 2022-03-17 23:59 | disposition home or self-care (01) ==
LOC: CR 08:52
PROVIDERS: PCP Family Medicine; Visit Provider Internal Medicine Cardiovascular Disease
DX: R69 Illness, unspecified (principal)

== ENCOUNTER 2022-04-11 08:48 | Outpatient (RCR) | payer SELFPAY ==
[2022-03-18 00:02] VITALS: BP 163/92; PULSE 82
[2022-03-19 09:15] VITALS: BP 159/81; PULSE 88
[2022-03-21 09:20] VITALS: BP 115/75; PULSE 90
[2022-03-26 09:27] VITALS: BP 137/89; PULSE 109
[2022-03-28 09:31] VITALS: BP 115/94; PULSE 100
[2022-04-02 08:49] VITALS: BP 144/82; PULSE 82
[2022-04-09 08:55] VITALS: BP 158/88; PULSE 85
[2022-04-11 08:45] VITALS: BP 145/83; PULSE 79
== END 2022-04-17 23:59 | disposition home or self-care (01) ==
LOC: CR 08:48
PROVIDERS: PCP Family Medicine; Visit Provider Internal Medicine Cardiovascular Disease
DX: R69 Illness, unspecified (principal)

== ENCOUNTER 2022-04-25 11:12 | Outpatient (CLI) | payer MEDICARE, SELFPAY ==
--- NOTE | 2022-04-25 10:00 | DI.RAD_ITS ---
Exam(s) XR KNEE LT 1V XR STANDING ALIGNMENT EXAM: XR STANDING ALIGNMENT and XR knee LT 1 V CLINICAL HISTORY: preop. TECHNIQUE: 2D digital imaging was performed. Five images were obtained. COMPARISON: CR RIGHT FEMUR from 01/22/2018 CR XR KNEE LT 3V AP,LAT,GUSTAVO from 07/10/2020 CR XR KNEE LT 1V from 04/25/2022 FINDINGS: BONES: No acute fracture is present. No bony destructive lesion is seen. There again seen postsurgica l changes of a right total knee replacement. The orthopedic hardware appears in good position. Ther e is also a sideplate and screws again seen traversing a healed right femoral fracture. There are ma rked degenerative changes in the left knee with marked joint space narrowing of the patellofemoral jenny int and moderate narrowing of the lateral femoral tibial joint. Periarticular spurring is seen at th e lateral femoral tibial joint. Chondrocalcinosis is seen in the femoral tibial joint. There is a s mall suprapatellar joint effusion. Postsurgical changes are seen in the left ankle. The right lower extremity measures 102 cm. The left lower extremity measures 101 cm. SOFT TISSUE: Atherosclerosis. IMPRESSION: Marked osteoarthritis of the left knee. DATA REPOSITORY: RADIATION DOSE DELIVERED:
== END 2022-04-25 11:13 | disposition home or self-care (01) ==
LOC: DIORS 11:12
PROVIDERS: PCP Family Medicine; Visit Provider Physician Assistant Surgical
DX: M17.12 Unilateral primary osteoarthritis, left knee (principal); I49.9 Cardiac arrhythmia, unspecified; Z95.5 Presence of coronary angioplasty implant and graft
CPT/HCPCS: 99214; 73560; 77073

== ENCOUNTER 2022-05-09 09:00 | Outpatient (RCR) | payer SELFPAY ==
[2022-04-18 00:02] VITALS: BP 145/83; PULSE 79
[2022-04-18 09:01] VITALS: BP 123/77; PULSE 90
[2022-04-23 08:55] VITALS: BP 166/95; PULSE 82
[2022-04-23 09:38] VITALS: BP 167/96
[2022-04-30 08:57] VITALS: BP 188/94; PULSE 87
[2022-04-30 09:36] VITALS: BP 150/95
[2022-05-02 08:46] VITALS: BP 164/93; PULSE 77
[2022-05-09 08:53] VITALS: BP 165/88; PULSE 78
== END 2022-05-17 23:59 | disposition home or self-care (01) ==
LOC: CR 09:00
PROVIDERS: PCP Family Medicine; Visit Provider Internal Medicine Cardiovascular Disease
DX: R69 Illness, unspecified (principal)

== ENCOUNTER 2022-05-28 11:15 | Outpatient (CLI) | payer MEDICARE, SELFPAY ==
[2022-05-28 11:24] LABS: HCT 42.8 % (40.0-50.0); HGB 13.6 g/dL (13.5-17.5); MCHC 31.8 % (32.0-36.0); MCV 85 fL (80-95); MPV 9.2 fL (8.0-11.0); Platelet Count 196 10^3/uL (130-400); RBC 5.03 10^6/uL (4.36-5.78); RDW 14.4 % (11.8-14.1); RDW-SD 44.5 fL; WBC 9.51 10^3/uL (4.4-10.8)
[2022-05-28 12:00] LABS: Anion Gap 9.6 mmol/L (3-11); BUN 27 mg/dL (7-18); CO2 25.4 mmol/L (21.0-32.0); CREATININE 1.8 mg/dL (0.70-1.30); Calcium 8.6 mg/dL (8.5-10.1); Chloride 99 mmol/L (98-107); Estimated GFR 37.12 (mL/min/1.73m2); Glucose 72 mg/dL (74-106); Potassium 4.1 mmol/L (3.5-5.1); Sodium 134 mmol/L (136-145)
== END 2022-05-28 11:16 | disposition home or self-care (01) ==
LOC: LBO 11:18
PROVIDERS: PCP Family Medicine; Visit Provider Student in an Organized Health Care Education/Training Program
DX: M17.12 Unilateral primary osteoarthritis, left knee (principal); Z01.818 Encounter for other preprocedural examination
CPT/HCPCS: 36415; 80048; 85027

== ENCOUNTER 2022-06-06 08:52 | Outpatient (RCR) | payer SELFPAY ==
[2022-05-18 00:03] VITALS: BP 165/88; PULSE 78
[2022-05-23 08:49] VITALS: BP 154/82; PULSE 91
[2022-05-28 09:00] VITALS: BP 158/81; PULSE 83
[2022-05-30 09:31] VITALS: BP 145/77; PULSE 83
[2022-06-04 08:50] VITALS: BP 157/82; PULSE 88
[2022-06-06 09:52] VITALS: BP 168/66; PULSE 79
== END 2022-06-17 23:59 | disposition home or self-care (01) ==
LOC: CR 08:52
PROVIDERS: PCP Family Medicine; Visit Provider Internal Medicine Cardiovascular Disease
DX: Z51.89 Encounter for other specified aftercare (principal); R69 Illness, unspecified

== ENCOUNTER 2022-06-12 06:02 | Day surgery (SDC) | payer MEDICARE, SELFPAY ==
[2022-06-12] VITALS (10 sets, daily range): BP systolic 115–156; BP diastolic 66–89; PULSE 74–101; RESP 13–27; TEMP 36.3–37.1; O2SAT 93–100; BMI 29.2
--- NOTE | 2022-06-12 06:18 | W.ANESPRE ---
General Info Date of Service Date Performed: 06/12/22 Height: 5 ft 11 in Weight: 95.254 kg Body Mass Index (BMI): 29.2 Surgical Procedure: Operation Date: 06/12/22 07:40 Proposed Procedure Side Surgeon p Knee Total Arthroplasty Left Chang Anthony MD Meds Allergies and Home Medications Allergies Allergy/AdvReac Type Severity Reaction Status Date / Time terazosin Allergy Severe Unknown Verified 06/12/22 06:18 oxycodone AdvReac Intermediate Nausea Verified 06/12/22 06:18 pollen AdvReac Intermediate sneezing, Uncoded 06/12/22 06:18 congestion Home Medication Medication Instructions Recorded aspirin 81 mg tablet,delayed 81 mg PO DAILY 11/18/17 release (Nancy Low Dose Aspirin) bupropion HCl 150 mg tablet,12 hr 150 mg PO BID 11/18/17 sustained-release multivitamin 1 tab PO DAILY 11/18/17 nitroglycerin 0.4 mg sublingual 1 tab PO PRN PRN 01/07/18 tablet atorvastatin 80 mg tablet 80 mg PO .Q PM 05/31/19 fluticasone propionate 50 1 inh inhalation BID 05/31/19 mcg/actuation blister powder for inhalation loratadine 10 mg capsule 10 mg PO DAILY 05/03/21 amoxicillin 500 mg capsule 2,000 mg PO ONCE 05/08/21 temazepam 15 mg capsule (Restoril) 15 mg PO QHS 05/25/21 acetaminophen 500 mg tablet 500 mg PO TID 08/07/21 calcium carbonate 600 mg calcium 600 mg PO DAILY 08/07/21 (1,500 mg) tablet (Calcium) cholecalciferol (vitamin D3) 25 25 mcg PO DAILY 08/07/21 mcg (1,000 unit) tablet (Vitamin D3) valsartan 40 mg tablet 320 mg PO DAILY 05/28/22 fluticasone propionate 50 1 spray intranasal BID 06/12/22 mcg/actuation nasal spray,suspension testosterone 100 mg/mL 2 mg IM 06/12/22 intramuscular suspension Current Visit Medications: Current Medications Generic Name Dose Route Start Last Admin Trade Name Freq PRN Reason Stop Dose Admin Acetaminophen 1,000 mg 06/12/22 06:00 Acetaminophen 500 Mg Tab PO 06/12/22 16:00 PREOP [facility] Celecoxib 400 mg 06/12/22 06:00 Celecoxib 200 Mg Cap PO 06/12/22 16:00 PREOP MARY Gabapentin 300 mg 06/12/22 06:00 Gabapentin 300 Mg Cap PO 06/12/22 16:00 PREOP MARY Tranexamic Acid 1,000 mg/ 60 mls @ 360 mls/hr 06/12/22 06:00 Sodium Chloride IVPB 06/12/22 16:00 PREOP MARY Ringer's Solution 1,000 mls @ 80 mls/hr 06/12/22 06:00 IV 07/11/22 23:59 INFUSION MARY Cefazolin Sodium/Dextrose 2 gm in 50 mls @ 100 mls/hr 06/12/22 06:00 Ancef Duplex IVPB 06/12/22 16:00 PREOP MARY IV Miscellaneous Supplies 1 each 06/12/22 06:00 Iv Access IV 07/11/22 23:59 DIRECTED MARY Sodium Chloride 0 ml 06/12/22 06:00 Normal Saline Flush 10 Ml Syr IV 07/11/22 23:59 PRN PRN Sodium Chloride 0 ml 06/12/22 06:00 Normal Saline 10 Ml Vial IJ 07/11/22 23:59 DIRECTED PRN Sterile Water 0 ml 06/12/22 06:00 Water,Injection,Sterile 10 Ml Vial IJ 07/11/22 23:59 DIRECTED PRN PFSH Active Problems Active Problems: Problem Status Onset Code Bursitis of shoulder, left M75.52 Biceps tendinitis of left upper extremity M75.22 Pes planus of left foot M21.42 Osteoarthritis of left knee M17.12 De Quervain's tenosynovitis, right M65.4 Laceration of left index finger S61.211A Fracture of distal phalanx of left index finger S62.631A 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.12 De Quervain's tenosynovitis, left M65.4 Advance directive discussed with patient Z71.89 DVT prophylaxis Z29.9 Depression F32.9 Bigeminal rhythm I49.9 Left knee DJD M17.12 Medical History Medical History (Updated 06/12/22 @ 06:29 by Tomasa Christine) Bilateral carotid artery stenosis CAD (coronary artery disease) Cardiomyopathy CKD (chronic kidney disease) 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 Heart palpitations None recently (05/28/22) History of non-ST elevation myocardial infarction (NSTEMI) November 2017 HLD (hyperlipidemia) HTN (hypertension) with goal to be determined Hx of sinusitis Hyperpiesia Hypertension Surgical History Surgical History History of heart artery stent History of revision of total replacement of right knee joint Right TKA - [facility] (2003) 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) Hx of cataract surgery Hx of rhinoplasty S/P ORIF (open reduction internal fixation) fracture Right distal femur fracture Status post laparoscopic cholecystectomy (~01/2022) Status post left foot surgery (09/17/21) [facility] Tobacco Smoking/Tobacco Use Status: Former Tobacco Use Alcohol Alcohol Intake: former Substance Use Substance use type: does not use Vital Signs and Lab Results Vital Signs Most Recent Vital Signs in EMR: Temp Pulse Resp BP Pulse Ox 36.6 C 101 H 18 125/73 93 06/12/22 06:31 06/12/22 06:31 06/12/22 06:31 06/12/22 06:31 06/12/22 06:31 Lab Results Blood Type / Crossmatch: No Data to Display Complete Blood Count: White Blood Count 9.51 10^3/uL (4.4-10.8) 05/28/22 11:17 Red Blood Count 5.03 10^6/uL (4.36-5.78) 05/28/22 11:17 Hemoglobin 13.6 g/dL (13.5-17.5) 05/28/22 11:17 Hematocrit 42.8 % (40.0-50.0) 05/28/22 11:17 Platelet Count 196 10^3/uL (130-400) 05/28/22 11:17 Complete Metabolic Panel: Sodium 134 mmol/L (136-145) L 05/28/22 11:17 Potassium 4.1 mmol/L (3.5-5.1) 05/28/22 11:17 Chloride 99 mmol/L (98-107) 05/28/22 11:17 Carbon Dioxide 25.4 mmol/L (21.0-32.0) 05/28/22 11:17 BUN 27 mg/dL (7-18) H 05/28/22 11:17 Creatinine 1.8 mg/dL (0.70-1.30) H 05/28/22 11:17 Est GFR (CKD-EPI 2020) 37.12 (mL/min/1.73m2) 05/28/22 11:17 Calcium 8.6 mg/dL (8.5-10.1) 05/28/22 11:17 Glucose 72 mg/dL (74-106) L 05/28/22 11:17 Liver Function Panel: No Data to Display Coagulation Panel: No Data to Display Cardiac Panel: No Data to Display Arterial Blood Gas: No Data to Display Venous Blood Gas: No Data to Display Pancreas Panel: No Data to Display Thyroid Panel: No Data to Display Infectious Disease: No Data to Display Blood Cultures: No Data to Display Toxicology Panel: No Data to Display Imaging and Studies Imaging and Studies Study information below may be from another EMR and interpreted by another provider. Please see original notes in EMR for more complete details. EKG Summary: 02/06 Sinus rhythm...normal P axis, V-rate 60- 99 Borderline prolonged VA interval...VA >212, V-rate 50- 90. Sinus. No STEMI. Stress Test Summary: 06/07 Stress ECG Conclusion 1. The resting electrocardiogram showed sinus rhythm, poor R wave progression unable to exclude old anteroseptal NE 2. Patient underwent pharmacologic stress with regadenoson. Peak heart rate achieved was 55% of maximal for age 3. Electrocardiographically the test was nondiagnostic due to inadequate heart rate Echocardiogram Summary: 06/05 Conclusion Image quality was limited due to frequent PVCs Left Ventricle : The left ventricle is normal size. Mild concentric left ventricular hypertrophy. There is cavity obliteration and pre-PVC beats. There is discrete upper septal wall thickening. Could not determine diastolic function given frequency of PVCs. There is normal LV segmental wall motion. LVEF is 50-55%. Right Ventricle : The right ventricle is normal size. The right ventricular systolic function is normal. Atria : The left atrium size is normal. The right atrium size is normal. Aortic Valve : Aortic valve is trileaflet. Aortic valve is thickened but has adequate excursion. Mild aortic regurgitation. There is no aortic valvular stenosis. Mitral Valve : The mitral valve is normal in structure. Mild mitral regurgitation. No evidence of mitral valve stenosis. Tricuspid Valve : The tricuspid valve is normal in structure. Trace tricuspid regurgitation. Pulmonic Valve : Trace pulmonic regurgitation. Great Vessels : IVC is not well-visualized There is no prior echocardiogram available for comparison Carotid Artery Summary:: 2019: mild stenosis bilateral. Anesthesia Assessment and Plan Anesthesia History Personal History: No History of Anesthesia Complications Family History: No Family History of Anesthesia Complications Exercise Tolerance Exercise Tolerance: Metabolic Equivalents>4 Pertinent Negatives Pertinent Negatives: No Symptoms of GERD, No Major Cardiovascular Symptoms or Complaints, No Major Pulmonary Symptoms or Complaints and No History of CVA/TIA Cardiac & Pulmonary Exam Cardiac Exam: Normal S1/S2 Heart Sounds Pulmonary Exam: Clear Bilateral Breath Sounds Implantable Cardiac Device Does patient have a Pacemaker or an ICD?: No Airway Exam Known Difficult Airway: No Mallampati Class: 3 Mouth Opening: Normal (> 3cm) Thyromental Distance: Greater than 3 cm Neck Range of Motion: Full ROM Neck Circumference: Normal Teeth Condition: Normal Dentition (A few missing teeth) ASA Classification ASA Score: ASA 3 Emergency Case?: No NPO Status NPO Status: NPO Clears >2 hours, Solids >8 hours Anesthesia Plan Resuscitation Status: Full Code Anesthesia Technique: Spinal Anesthesia Airway Planned: Natural Airway Pain Management: Surgeon and patient request nerve block Monitors Used: Standard Monitors Preoperative Comments:: 81 yo male for TKA. Sig PMHx: CAD/NSTEMI with stents (2018 mild diffuse LM and RCA, 75% mid LAD with JENNI, 95% prox OM1 to JENNI. minimal home ntg use), anemia/CKD (GFR 37), HTN (?poorly controlled, most BPs in system are 140-150/80-90, on valsartan) , s/p rhinoplasty, former smoker (quit 2001), vent arrhythmia, Previous Anes: - lap zayra, glide 3, grade 1, was previous 3 attempt intubation with noted anterior airway. Also was wheezing and dyspnic on moving self to bed post operatively.
[2022-06-12] MEDS: Gabapentin 300 MG CAP PO (06:37)
[2022-06-12] MEDS: Acetaminophen 500 MG TAB 1000 MG PO (06:37)
[2022-06-12] MEDS: Celecoxib 200 MG CAP 400 MG PO (06:38)
[2022-06-12] MEDS: Lactated Ringers 1,000 ML 80 ML IV (06:50)
--- NOTE | 2022-06-12 07:39 | PDOC.DSDIS_ITS ---
Date of service: 06/12/22 Time of Service: 07:39 Discharge Plan Disposition Patient Disposition: HOME Condition: Good Discharge Details Reason For Visit: L TKR Attending Provider: Chang Anthony Primary Care Provider: Karo Otero Home Meds and New Rx's Prescriptions: New celecoxib 200 mg capsule 200 mg PO BID Qty: 60 3RF aspirin 81 mg tablet,delayed release (DR/EC) 81 mg PO BID Qty: 60 0RF acetaminophen 500 mg tablet 1,000 mg PO TID Qty: 90 3RF hydromorphone 2 mg tablet 1 - 2 mg PO Q4H PRN (Reason: pain) Qty: 20 0RF pantoprazole 40 mg tablet,delayed release (DR/EC) 40 mg PO DAILY Qty: 30 0RF dexamethasone [Decadron] 4 mg tablet 4 mg PO DAILY Qty: 2 0RF gabapentin 300 mg capsule 300 mg PO QHS Qty: 14 0RF Continued temazepam [Restoril] 15 mg capsule 15 mg PO QHS valsartan 40 mg tablet 320 mg PO DAILY amoxicillin 500 mg capsule 2,000 mg PO ONCE Label Comments: for dental procedure bupropion HCl 150 MG tablet extended release 12 hr 150 mg PO BID multivitamin 1 EACH capsule 1 tab PO DAILY fluticasone propionate 50 mcg/actuation Blister With Device 1 inh INHALATION BID Label Comments: pt. states he uses flonase atorvastatin 80 mg Tablet 80 mg PO .Q PM loratadine 10 mg Capsule 10 mg PO DAILY nitroglycerin 0.4 MG tablet, sublingual 1 tab PO PRN PRN Label Comments: pt using when doing something strenous calcium carbonate [Calcium 600] 600 mg calcium (1,500 mg) Tablet 600 mg PO DAILY cholecalciferol (vitamin D3) [Vitamin D3] 25 mcg (1,000 unit) Tablet 25 mcg PO DAILY fluticasone propionate 50 mcg/actuation [place],Suspension 1 spray INTRANASAL BID Rx Instructions: administer into each nostril testosterone 100 mg/mL Suspension 2 mg IM Label Comments: pt gets every other week. Pt. unsure of the brand Discontinued aspirin [Nancy Low Dose Aspirin] 81 MG tablet,delayed release (DR/EC) 81 mg PO DAILY acetaminophen 500 mg Tablet 500 mg PO TID Discharge Instructions Additional Instructions: Total Knee Discharge Instructions Activity: The most important activity is to walk and to work on gentle motion (both flexion and extension). You should try to take short walks a few times a day. It is important that when resting you work on keeping the knee straight. Avoid putting a pillow behind the knee as this will encourage flexion. Work on range of motion exercises as provided by Physical Therapy. - Start outpatient physical therapy within 2 weeks. - You should wear the ELADIA hose on both legs for 2 weeks. You may remove these at night. You may also use any compression sock in place of the ELADIA hose. - Utilize [employer] to review exercises, see videos on exercises and obtain basic information pertaining to your surgery and your recovery. Dressing: Remove the Rodríguez wrap by 2 days after your surgery and put on the ELADIA stocking given to you from the hospital. Keep the surgical dressing (underneath the RODRÍGUEZ wrap) in place for at least one week. After the first week it may be removed and replaced with light gauze and tape or nothing. The wound and dressing may get wet after 3 days but avoid soaking the dressing or otherwise it will need to be changed. Many people prefer covering the dressing with cling wrap (saran wrap) to minimize it from getting soaked. If it gets wet, just pat dry. If it starts to peel off then it will need to be changed. Medications: - You should take Tylenol and anti-inflammatory Celebrex as your primary pain control medications. If the Celebrex is too expensive or not covered, please call the office for another alternative (Advil/Ibuprofen or Naproxen/Aleve) - You have been prescribed a stronger pain medication Hydromorphone for breakthrough pain, take as needed as prescribed. - You have also been prescribed a stomach acid reduction agent Pantoprozole to help reduce stomach acid and reflux. - You have been prescribed Gabapentin to take at night for restlessness and nerve pain. - You will be taking Aspirin 81mg twice a day for DVT prevention unless instructed otherwise. - You have also been prescribed Decadron to take to control post-operative nausea and pain. You will start this tomorrow. - If you have constipation you should take Colace or Miralax (both [id number]). It takes most people 3-4 days to have a bowel movement. Follow-up: 2 weeks If you have any acute concerns or questions, please do not hesitate to contact the office at [phone]. You may contact Dr. Anthony with any questions after hours through the hospital at [phone] or on his cell phone at [phone]. Stand Alone Forms: Anesthesia Discharge Inst., Sudha Mota ([facility]) Referrals: Chang Anthony MD [ [facility] STAFF PHYSICIAN] - Equipment/Supplies: Walker Activity:: Activity as Tolerated Remove Dressings/Wound Care:: Do Not Remove Shower/Bathe:: 72 hours Diet:: As Tolerated Discharge Orders Discharge Orders: Discharge Order (Routine); Ordered 06/12/22 Ordered By: Chang Anthony
[2022-06-12] MEDS: ceFAZolin 2 GM/50 ML BAG IVPB (08:15)
--- NOTE | 2022-06-12 08:27 | W.ANESNERVE ---
Nerve Block Single Injection Procedure Date and Time Date Performed: 06/12/22 Procedure Start: 07:10 Location Where Procedure Performed Procedure Location: Day Surgery Unit Reason Performed: Postoperative Analgesia Requesting Provider: Chang Anthony Timeout Performed Timeout Performed: Yes Monitoring Used ECG, Blood Pressure, SpO2 and See EMR for corresponding vital signs Sterility Sterility: Hand Hygiene, Surgical Cap, Surgical Mask, Sterile Gloves, Eye Protection and Chlorhexidine Sedation Given During Procedure Sedation Given (Indicate Dose Given): No Sedation given Patient Mental Status Patient Mental Status: Awake Nerve Block 1st Nerve Block: Laterality: Left Block Type: Adductor Canal Needle / Catheter Used: 100mm SonoPlex II Local Anesthetic Bolus (Indicate Dose Given): Lidocaine used for local infiltration of skin and Bupivacaine 0.375% Dose:: 10 Additives (Indicate Dose Given): None Ultrasound: Sterile probe cover and gel used Ultrasound Image Saved?: Yes Nerve Stimulator: Supplement to Ultrasound use and No twitch or parasthesia noted < 0.5 mA Paresthesia: None Procedure Tolerated: No Complications and Patient tolerated well Procedure Outcome: Successful Performed By: Prosper Martin
--- NOTE | 2022-06-12 10:27 | W.ANESPOSTOP ---
Postoperative Evaluation Date, Time and Location Date Performed: 06/12/22 Time Performed: : Patient Location: PACU Vital Signs Most Recent Imported Vital Signs: Most Recent Vital Signs Temp Pulse Resp BP Pulse Ox 36.6 C 74 24 156/80 H 100 06/12/22 10:05 06/12/22 10:05 06/12/22 10:05 06/12/22 10:05 06/12/22 10:05 Pain Score Most Recent Pain Score: Most Recent Pain Score Pain Level 0 06/12/22 10:05 Assessment Mental Status: Awake (Alert & Oriented to Patient Baseline) Airway and Respiratory Function: Patent airway with normal (patient baseline) respiratory exam Cardiovascular Function: Hemodynamically Stable Hydration Status: Adequately Hydrated Nausea & Vomiting: No Nausea or Vomiting Pain: Pain is tolerable per patient Peripheral Nerve Block: Regional nerve block not resolved at time of post operative discharge
[2022-06-12] MEDS: fentaNYL 100 MCG/2 ML VIAL IVP (10:30)
--- NOTE | 2022-06-12 10:39 | W.PM.OP ---
Date of service: 06/12/22 Time of Service: 09:30 Operative Note Operative Note DATE OF PROCEDURE: 06/12/22 PRE-OP DIAGNOSIS: Left Knee Osteoarthritis with Valgus Deformity POST-OP DIAGNOSIS: same PROCEDURE: Left Total Knee Replacement SURGEON: Chang Anthony PRINTED CIRCUIT BOARD LAYOUT DESIGNER: Archana Earl ANESTHESIA TYPE: Spinal Refer to Anesthesia Record ESTIMATED BLOOD LOSS: 200 PATHOLOGY: none sent TOURNIQUET TIME: 32 COMPLICATIONS: None Patient was transported to: PACU Patient's condition: stable Implants: 1. Depuy Attune Posterior Stabilized Femoral Component, Size 8 2. Depuy Attune Rotating Platform Tibial Component, Size 7 3. Depuy Attune 8x7 RP/PS Poly 4. Depuy Attune Patellar Component, Size 35 Indications: I have seen Erwin in clinic for symptoms of LEFT knee arthritis, confirmed with radiographic findings. He has exhausted nonoperative methods and was having significant limitations in daily function and desired better function and less pain. I discussed the technical details of a knee replacement. I explained the risks of the procedure to include, but not limited to, bleeding, infection, pain, stiffness, fracture, damage to nerves and vessels, damage to muscles and tendons, loosening, need for repeat procedure, blood clot and cardiopulmonary demise. Despite these risks, Erwin elected to proceed. Findings: There was significant signs of arthritis throughout the knee involving all 3 compartments. Procedure Description: Erwin was greeted in the preoperative holding area where the correct side was identified and marked. The consent was reviewed with the patient and signed. The history and physical was updated. All questions were answered. Preoperative mediacations were administered: Acetaminophen 1000mg, Celebrex 400mg, and Gabapentin 300mg. An adductor canal block was then administered by the anesthesia team in the PACU. Erwin was taken back to the operating room. A spinal anesthestic was then administered. The patient was placed into the supine position on the operating room table. A nonsterile tourniquet was placed high onto the leg but only used for cementing. Posts were placed for positioning during the procedure. All bony prominences were well padded. Prophylactic antibiotics in the form of Cefazolin were administered. 1g of Tranxemic Acid was given intravenously within 30 minutes of incision. The left leg was then prepped with Chloraprep and draped in a standard fashion with impervious stockinette. A second prep with Chloraprep was performed prior to application of Iodine impregnated skin protection. A timeout to confirm correct identity, side and site, procedure, allergies, anesthesia, and medical concerns was performed. With the knee in some flexion, a midline incision was made overlying the knee. Full thickness skin flaps were raised once the extensor mechanism was encountered. These were raised medially and laterally. Any bleeding was controlled with electrocautery. Once the extensor mechanism was fully exposed, a medial parapatellar arthrotomy was performed in a flexed position. All bleeding from the arthrotomy and the geniculate arteries was coagulated. A medial subperiosteal peel was performed with electrocautery to the midcoronal plane. Due to the significant varus deformity the entire medial tibial plateau was exposed. The fat pad was removed while keeping the patellar tendon protected. The anterior distal femur synovium was removed for later visualization. The ACL and PCL were resected and the anterior horn of the lateral meniscus was transected. The knee was then flexed with the patella everted. Large osteophytes from the tibia were removed. Large osteophytes from the femur were removed. Using a step drill, and based on preoperative templating, the femoral canal was entered. This was done with a step drill without any difficulty. The intramedullary distal femoral cut guide was inserted, set to a 6 degree valgus cut and 9mm cut thickness. The distal femoral cut guide was then held in position and pinned. With the soft tissues protected, the distal cut was performed. This was passed over a few times to ensure a planar cut. I then turned attention to the tibia. The extramedullary guide was placed onto the leg. The distal aspect was slid medial to adjust for position of center of ankle and stay in line with shaft of the tibia. Approximately 3 degrees of posterior slope was kept in the proximal cutting guide. The center of the guide was aligned with the PCL. The stylus was used to assess cut thickness. This was then held in position and pinned into place with 2 additional pins and a cross pin for stability. The medial and lateral collateral ligaments were protected and the cut was performed. With this completed, it was assessed and noted to be of appropriate dimensions. The guide was removed. A spacer block was inserted and the knee was brought into extension. The 6mm spacer block provided full extension, without hyperextension and with stability of both the medial and lateral collateral ligaments was assessed. The pins from the femur and the tibia were then removed. The distal femur was then sized. The anterior stylus was placed onto the lateral ridge of the anterior femur. This indicated a size 8 femur. The external rotation of the guide was adjusted to 3 degrees to match the epicondylar axis, perpendicular to Kingfisher?s line. The 4-in-1 cutting guide was the placed. The posterior medial femur cut was evaluated and appeared of good thickness. The spacer block was inserted underneath the cutting guide and stability was confirmed in 90 degrees of flexion. An herman wing was used to confirm appropriate position of the anterior cut to avoid notching. This cutting guide was ensured to be flush on the cut surface and then pinned into place with headed pins. While protecting the soft tissues, quad tendon, and collateral ligaments, the anterior and posterior cuts were performed with a saw. The central two pins were removed and the posterior and anterior chamfers were cut next. The notch-cutting guide was placed. This was pinned to lateralize the femoral component as much as possible while keeping it flush on the cut surface. This was then pinned into position. A reciprocating saw was used to make the notch cut. A rasp smoothed the cut surfaces. A trial posterior stabilized femoral component was then inserted, impacted down to the cut surfaces, and the lug holes were drilled. A provisional trial tibial component was placed and the knee was brought through range of motion. The polyethylene was trialed until there was good flexion and extension with excellent stability to the medial and lateral collaterals. The patella was tracking without thumbs. The tibial cut surface was fully exposed. The medial and lateral menisci were removed. The tibia was then sized as a 7. The tibia had been previously marked during trialing to correspond to the center of the tibial component to help with rotation. The trial was aligned to this archana, approximately rotated to the medial 1/3rd of the tibial tubercle. The trial was pinned into place. The tibia was prepared with a reamer and a keel punch. The knee was then brought into extension and the patella was measured as 27mm. Using the patellar clamp and cut guide, this was resected to a flat surface with at least 13mm of thickness remaining. The size 35 patella fit the best. This was oriented and then clamped into position. The lugs were drilled. The trial components were removed. The final components, except for the polyethylene were opened on the back table. The periosteal and capsular tissues, especially posteriorly, around the knee were then systematically injected with a periarticular cocktail consisting of 246mg of Ropivacaine, 0.5mg of Epinephrine, 0.08mg of Clonidine, and 30mg of Ketorolac, diluted to 100cc.. The tourniquet was then inflated to 275mmHg. The knee was thoroughly irrigated with a pulse lavage and dried. On the back table, with the implants opened, the cement was mixed. 2 batches of antibiotic laden medium viscosity cement were prepared with vacuum assistance. After the cement was ready a small amount was placed on to the back side of the tibial component at the keel. A small amount was placed onto the posterior flange of the femur. Cement was manual pressurized and impregnated into the cut surface of the tibia. The tibial component was then inserted into the cut surface and impacted into position. Excess cement was removed and the component was reimpacted. Again, excess cement was removed and our attention was then turned to the femur. The femoral cut surface was once again dried and cement was manually impacted into the cut surface. The femoral component was lined with the lug holes and impacted. Excess cement was removed. It was ensured to be down against the cut surface. The trial polyethylene was then inserted and the leg was brought out into full extension for the duration of the cement curing process, approximately 18min. Cement was lastly manually impacted into the cut surface of the patella and the patellar button was clamped into position and held. During this process attention was turned to the gutters of the knee and for all interfaces for any excess cement. While the cement was hardening, the knee was irrigated with Surgiphor chlorhexadine solution. This was allowed to sit in the knee for 3 minutes and then it was thoroughly irrigated with saline. After the cement had finally cured, approximately 18min, the clamp was removed from the patella and the knee was taken through range of motion. A size 7mm polyethylene component provided the best range of motion and stability with less than 2mm gapping with medial and lateral stress and full extension without significant hyperextension. The patella was tracking with a no-thumbs technique. The trial poly was removed and once again the knee was checked for any loose, excess, or errant cement. The poly component was then inserted and impacted into position after cleaning and drying the tibial tray. The capsule was then reapproximated with a No. 1 Vicryl at multiple locations. The capsule was finally closed with a No. 2 Stratafix, barbed suture. The tourniquet was then released and the arthrotomy appeared watertight without significant bleeding. Deep tissues were then reapproximated with 0 Vicryl and 2-0 Vicryl. The skin was closed with a running 3-0 Monocryl in a subcuticular fashion. This was reinforced with skin glue. A Mepilex silver dressing was applied along with a [id number] REJI wrap. A CryoCuff was applied. Erwin was transferred to the hospital bed without difficulty an suffering no apparent complication. Erwin has a good prognosis. Physical therapy will start today and without restrictions, weight-bearing as tolerated. Aspirin 81mg BID will be used for DVT prophylaxis.
--- NOTE | 2022-06-12 12:25 | IN_ITS ---
Date of service: 06/12/22 Time of Service: 12:25 PT Notes Visit Reasons: L TKR Physical Therapy Day Surgery Initial Evaluation Date: 06/12/2022 Referring Doctor: AUTUMN Davey PT Orders: PT CONSULT: S/P Ortho Surgery Precautions: WBAT on L LE with AD. Patient Profile/Admitting Diagnosis: Erwin is a 81-year-old male with degenerative joint disease of the left knee and is S/P L total knee arthroplasty on postoperative day 0. PMHX: Medical History?(Updated 05/28/22 @ 10:32 by Luana Rosenberg) Bilateral carotid artery stenosis CAD (coronary artery disease) Cardiomyopathy CKD (chronic kidney disease) 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 Heart palpitations None recently (05/28/22) History of non-ST elevation myocardial infarction (NSTEMI) November 2017 HLD (hyperlipidemia) HTN (hypertension) with goal to be determined Hyperpiesia Hypertension Surgical History?(Updated 05/28/22 @ 10:32 by Luana Rosenberg) History of heart artery stent History of revision of total replacement of right knee joint Right TKA - [place] (2003) Two-stage revision for infection -[place] (2008) Hx of cataract surgery S/P ORIF (open reduction internal fixation) fracture Right distal femur fracture Status post laparoscopic cholecystectomy (~01/2022) Status post left foot surgery (09/17/21) [facility] Social History/Home Situation: Lives with in a private home with 3 steps to enter with rails on B sides. He has another flight of steps to [facility] where their bedroom is. One fall in the past year. Equipment Owned/DME: [facility] Subjective: Patient is pleasant and cooperative. Reports 2-/3/10 pain in the L knee at rest and with weight bearing. Reports some mild shortness of breath that resolves with rest. Objective: General Observation: Supine in stretcher. REJI wraps to L LE. Croyocuff to L knee. TEDS to R leg. Mental Status: A and O x4 Vital signs: WNL as constantly monitored by Nurse Anastasia Pain: 2-3/10 in the L knee with weigt bearing ROM: Right Lower Extremity: Hip flexion WFL. Hip abduction WFL. Knee flexion WFL. Ankle dorsiflexion WFL. Ankle plantarflexion WFL. Left Lower Extremity: Hip flexion WFL. Hip abduction WFL. Knee flexion 20 degrees to 100 degrees. Knee extension -20 degrees ankle dorsiflexion WFL. Ankle plantarflexion WFL. Strength: Right Lower Extremity: Hip flexors 5/5. Hip abductors 5/5. Knee flexors 5/5. Knee extensors 5/5. Ankle dorsiflexors 5/5. Ankle plantarflexors 5/5. Left Lower Extremity:Hip flexors 4/5. Hip abductors 4/5. Knee flexors 3-/5. Knee extensors 3-/5. Ankle dorsiflexors 5/5. Ankle plantarflexors 5/5. Sensation: Intact as to pain and light pressure in bilateral lower extremities Bed Mobility/Transfers: Supine to sit standby assist Sit to stand contact-guard assist Stand to sit standby assist Bed to chair standby assist Gait: 150 feet on level surfaces using front wheeled walker with step to gait pattern requiring standby assist with report of 2-10/2009 pain in the left knee and minimal shortness of breath that resolved with seated rest. Stairs: Down 6 x 4 inch steps and 4 x 6 inch steps while holding onto bilateral rails with step to gait pattern requiring only standby assist with no report of increased pain and with minimal shortness of breath that again resolved with seated rest. Vital signs within normal limits as measured by nurse Anastasia. THERA EX: SLR x 10 Seated hip flexion x 10 Bilateral L AQ's x10 Quadriceps sets x10 Gluteal sets x10 Ankle DF/PF x10 Balance: Static Sitting: Normal Dynamic Sitting: Normal Static Standing: Fair Dynamic Standing: Fair Special Tests: Mobility Limitations Standardized Measure [facility] AM-PAC 6 clicks Basic Mobility Inpatient Short Form: Raw Score: 23 CMS Score: 11% deficit Informed Consent/Education: Patient instructed in purpose of PT consult. Education and training on initial set of exercises that can be done at home have been completed with patient with reference to the [employer] nirav. Assessment: Justyn requires the use of front wheeled walker for all mobility ADL performance to maximize independence, improve activity tolerance, and reduce fall risk. Patient presents with clinical signs and symptoms consistent with current/admitting diagnoses that have resulted to mobility limitations, gait instability, generalized weakness, and impairment of motor control as demonstrated by the following impairment level findings: 1. Decreased strength to left knee major muscle groups 2. Impaired standing balance 3. Limitation of joint range of motion in left knee Impairments are contributing to the following functional limitations: 1. Inability to safely ambulate without assistive device 2. Increase completion time for mobility ADL performance 3. Increased fall risk Patient is assessed as a 93703 moderate complexity based on the following: History: 81-year-old male with impairment level findings, functional limitations, and past medical history as indicated above Examination: Demonstrable impairment in strength, balance, and mobility level with underlying impairments and functional limitations as documented above Presentation: Evolving Decision Makin moderate complexity Goals: N/A. PT evaluation and 1-2 treatment sessions only for functional mobility training using recommended AD and for HEP instruction. Plan of Care/Treatment Plan: N/A. PT evaluation and 1-2 treatment session only for functional mobility training using recommended AD and for HEP instruction. DISCHARGE RECOMMENDATIONS: [] Home with no services [] [] Home with services [specify] [X] Home with outpatient PT. Home when medically cleared by orthopedic surgeon. Will benefit from outpatient PT services in order to optimize functional mobility outcomes and facilitate independent community ambulation without an assistive device. [] SNF for continued rehabilitation [] [] [facility] Care [] [] SNF versus LTC based on ability to participate and progress [] TREATMENT CODE/TIME: 9716 2 x 20 minutes, 9753 0 x 29 minutes beginning at 12:25 PM. Thank you for the opportunity to participate in the care of this patient. Flory Whyte PT, DPT, CLT [facility] [place], [place]
== END 2022-06-12 14:16 | disposition home or self-care (01) ==
PROVIDERS: PCP Family Medicine; Visit Provider Student in an Organized Health Care Education/Training Program
PROC: (CPT 27447; principal; 2022-06-12 07:30)
DX: M17.12 Unilateral primary osteoarthritis, left knee (principal); N18.9 Chronic kidney disease, unspecified; I42.9 Cardiomyopathy, unspecified; I12.9 Hypertensive chronic kidney disease with stage 1 through stage 4 chronic kidney disease, or unspecified chronic kidney disease
CPT/HCPCS: 27447; C1776; 76942; 97162; 97530; J0690; J1100; J2370; J2405; J2704; J3010

== ENCOUNTER 2022-06-27 11:28 | Outpatient (CLI) | payer MEDICARE, SELFPAY ==
--- NOTE | 2022-06-27 10:30 | DI.RAD_ITS ---
Exam(s) XR KNEE LT 1V XR STANDING ALIGNMENT EXAM: XR STANDING ALIGNMENT and XR knee LT IV CLINICAL HISTORY: 1ST POST OP L TKA. TECHNIQUE: 2D digital imaging was performed. Five images were obtained. COMPARISON: CR XR STANDING ALIGNMENT from 04/25/2022 FINDINGS: BONES: The hips are well maintained. There is a left total knee replacement. The orthopedic hardwar e appears in good position. No evidence of hardware failure. There is a right total knee replacemen t. There is also a sideplate and screws transfixing an old right femoral fracture. The ankles are w ell maintained.The left lower extremity measures 99 cm. The right lower extremity measures 100 cm. SOFT TISSUE: Atherosclerosis is present. IMPRESSION: Bilateral TKA. DATA REPOSITORY: RADIATION DOSE DELIVERED:
== END 2022-06-27 11:29 | disposition home or self-care (01) ==
LOC: DIORS 11:28
PROVIDERS: PCP Family Medicine; Referring Provider Family Medicine; Visit Provider Student in an Organized Health Care Education/Training Program
DX: Z96.652 Presence of left artificial knee joint (principal); Z47.1 Aftercare following joint replacement surgery
CPT/HCPCS: 73560; 77073

== ENCOUNTER 2022-07-06 17:20 | Inpatient (IN) | payer MEDICARE, SELFPAY ==
[2022-07-06] VITALS (21 sets, daily range): BP systolic 132–177; BP diastolic 75–126; PULSE 75–93; RESP 16–26; TEMP 36.5–36.6; O2SAT 85–100
--- NOTE | 2022-07-06 17:30 | RT.EKG_ITS ---
APPROVED REPORT Exam: Resting ECG Reason for Exam: sob Patient Location: E HR:82 bpm ECG Measurements Heart Rate 82 AXIS NM 264 P 3 QRSd 86 QRS -34 QT 393 T 58 QTc 459 Conclusion Sinus rhythm...normal P axis, V-rate 60- 99 Prolonged NM interval...NM >220, V-rate 50- 90 Left ventricular hypertrophy...multiple voltage criteria sinus rhtyhm, left axis
--- NOTE | 2022-07-06 17:45 | DI.CT_ITS ---
Exam(s) CT CHEST PE CTA EXAM: CT CHEST PE CTA CLINICAL HISTORY: SOB, R/O PE, PNA. TECHNIQUE: Imaging Protocol: Axial CT angiography was performed with multi-slice acquisition and mu lti-planar and/or 3D reconstructions. CONTRAST MATERIAL: Intravenous: Omnipaque 350 Contrast volume:structured data in ml COMPARISON: CT CT CHEST/ABD/PEL WO from 02/02/2022 FINDINGS: CT angiography of the chest was performed with intravenous infusion of 78 cc of Omnipaque 350. There is cardiomegaly and coronary artery calcification. The lungs are clear. No pleural effusion. Tracheobronchial tree appears intact. No evidence of pulmonary embolic disease. Thoracic aorta is of normal diameter, no thoracic aortic an eurysm or dissection, major branch vessels appear intact. No mediastinal or hilar adenopathy. Images obtained through the upper abdomen show unremarkable appearance of the visualized portions of the liver, spleen, pancreas, adrenals, and kidneys except for apparent right and left renal upper kimi e cysts .. IMPRESSION: Negative CT angiogram of the chest. No evidence of pulmonary embolic disease. RADIATION DOSE DELIVERED: 473.22mGy.cm Total DLP 473.22mGy.cm Total DLP DATA REPOSITORY: All CT scans at this facility are submitted to the National Radiology Data Registry (NRDR) Dose Index Registry (DIR) with the [employer] (ACR). RADIATION OPTIMIZATION: All CT scans at this facility use at least one of these dose optimization te chniques: automated exposure control; mA and/or kV adjustment per patient size (includes targeted exa ms where dose is matched to clinical indication); or iterative reconstruction.
--- NOTE | 2022-07-06 17:46 | ED.GENADUL_ITS ---
Discharge Plan Disposition Patient Disposition: Admit to [facility] Condition: Stable Discharge Details Clinical Impression: Non-ST elevation IA (NSTEMI), Hyponatremia Admit Date/Time: 07/06/22 20:53 Admit Provider: Sumeet Villasenor Attending Provider: Sumeet Villasenor Primary Care Provider: Karo Otero ED Provider: Chiquita Dunbar Discharge Data Discharge Date/Time-TO BE ENTERED AT DEPARTURE: 07/06/22 21:51 Medical Decision Making 81-year-old male with a past medical history of coronary artery disease, NSTEMI requiring stents in 2018, chronic kidney disease, carotid artery stenosis, cardiomyopathy, hyperlipidemia hypertension and a 3-week history of total knee replacement on the left presents to the ER with chief complaint of shortness of breath which has worsened since Friday. He reports that he went to a physical rehab for a recent knee replacement. He did have a left knee replacement approximately 3 weeks ago. He states that the next day he began having shortness of breath. It is now worsened to where he cannot walk long distances. He reports that his oxygen has gone down to 82%. He does present hypoxic here upon arrival with an O2 sat of 85% on room air. He was placed on 2 L of oxygen nasal cannula and is up to 99%. He also endorses cough with clear sputum, nausea and dry heaves in the morning. Positive chills but no reported fever. He denies chest pain. Cardiac work-up ordered including serial troponins, chest CT and labs. CBC shows hemoglobin 9.8 hematocrit 31.2, PT 12.3 INR 1.2 APTT 29.1, sodium 124 chloride 91 BUN 20 creatinine 1.9 GFR 34.79, calcium 8.0 bilirubin 1.2. Troponin critically high at 874. Room air trial patient is satting 96-97%. Patient reports that he only de-sats with exertion. 1924: [facility] [place] contacted, for transfer request and cardiology consult, they are at bed capacity. 1938: Spoke with Dr. Kristian Gunter with cardiology at [facility] regarding patient case and details, he recommends admission for trending troponin, echocardiogram, and re-consult if need for cath arrises. 2002: Will page hospitalist for admission for NSTEMI 2018: Spoke with Dr. Villasenor regarding patient case and details he verbalized understanding agrees to accept patient for admission for echo and trending troponins. He does recommend Lasix 40 mg of Lasix ordered. Patient does verify that he is a full code and wishes to be resuscitated. Patient and family verbalized understanding and are in agreement with the plan of care. This text was generated using GOWEXation system, please disregard any oddities of phrase or misspellings. Medical Records Medical records reviewed: Yes I reviewed the patient's medical records. Imaging Data Radiologic Study: Imaging: CT Scan Radiologist's impression: IMPRESSION: 1. Diffuse [id number]-[id number] bronchial wall thickening suggesting process such as bronchitis. 2. Bilateral posterior lung base mild atelectasis. 3. No acute lung infiltrates or edema. 4. No pulmonary arterial embolism. 5. Cardiomegaly. Coronary artery atherosclerosis. Lab Data Lab results reviewed: Yes I reviewed the patient's lab results. Labs: Laboratory Tests Range/Units 07/06/22 07/06/22 07/06/22 17:42 17:42 17:42 WBC (4.4-10.8) 10^3/uL 9.76 RBC (4.36-5.78) 10^6/uL 3.66 L Hgb (13.5-17.5) g/dL 9.8 L Hct (40.0-50.0) % 31.2 L MCV (80-95) fL 85 MCH (27.0-33.0) pg 26.8 L MCHC (32.0-36.0) % 31.4 L RDW (11.8-14.1) % 16.2 H Plt Count (130-400) 10^3/uL 238 MPV (8.0-11.0) fL 9.5 Immature Gran % 0.6 Neutrophils % 69.8 Lymphocytes % 17.0 Monocytes % 10.5 Eosinophils % 1.6 Basophils % 0.5 Nucleated RBC % (0.0-0.3) % 0.0 Absolute Neutrophils (1.2-6.7) 10^3/uL 6.81 H Absolute Lymphocytes (1.2-3.4) 10^3/uL 1.66 Absolute Monocytes (0.1-0.8) 10^3/uL 1.02 H Absolute Eosinophils (0.0-0.7) 10^3/uL 0.16 Absolute Basophils (0.0-0.2) 10^3/uL 0.05 PT (9.3-11.0) sec 12.3 H INR (0.9-1.1) 1.2 H APTT (21.0-27.5) sec 29.1 H Sodium (136-145) mmol/L 124 L Potassium (3.5-5.1) mmol/L 4.0 Chloride (98-107) mmol/L 91 L Carbon Dioxide (21.0-32.0) mmol/L 22.7 Anion Gap (3-11) mmol/L 10.3 BUN (7-18) mg/dL 20 H Creatinine (0.70-1.30) mg/dL 1.9 H Est GFR (CKD-EPI 2020) (mL/min/1.73m2) 34.79 Glucose (74-106) mg/dL 87 Calcium (8.5-10.1) mg/dL 8.0 L Magnesium (1.8-2.4) mg/dL Total Bilirubin (0.2-1.0) mg/dL 1.2 H AST (15-37) U/L 32 ALT (16-63) U/L 21 Alkaline Phosphatase (46-116) U/L 103 Troponin I (<or=60) ng/L 874 H* Total Protein (6.4-8.2) g/dL 6.9 Albumin (3.4-5.0) g/dL 3.3 L COVID-19 Source SARS-CoV-2 (PCR) (Negative) Influenza Type A (PCR) (Negative) Influenza Type B (PCR) (Negative) RSV (PCR) (Negative) Add-On Test Request Range/Units 07/06/22 07/06/22 07/06/22 17:42 17:42 17:55 WBC (4.4-10.8) 10^3/uL RBC (4.36-5.78) 10^6/uL Hgb (13.5-17.5) g/dL Hct (40.0-50.0) % MCV (80-95) fL MCH (27.0-33.0) pg MCHC (32.0-36.0) % RDW (11.8-14.1) % Plt Count (130-400) 10^3/uL MPV (8.0-11.0) fL Immature Gran % Neutrophils % Lymphocytes % Monocytes % Eosinophils % Basophils % Nucleated RBC % (0.0-0.3) % Absolute Neutrophils (1.2-6.7) 10^3/uL Absolute Lymphocytes (1.2-3.4) 10^3/uL Absolute Monocytes (0.1-0.8) 10^3/uL Absolute Eosinophils (0.0-0.7) 10^3/uL Absolute Basophils (0.0-0.2) 10^3/uL PT (9.3-11.0) sec INR (0.9-1.1) APTT (21.0-27.5) sec Sodium (136-145) mmol/L Potassium (3.5-5.1) mmol/L Chloride (98-107) mmol/L Carbon Dioxide (21.0-32.0) mmol/L Anion Gap (3-11) mmol/L BUN (7-18) mg/dL Creatinine (0.70-1.30) mg/dL Est GFR (CKD-EPI 2020) (mL/min/1.73m2) Glucose (74-106) mg/dL Calcium (8.5-10.1) mg/dL Magnesium (1.8-2.4) mg/dL 1.8 Total Bilirubin (0.2-1.0) mg/dL AST (15-37) U/L ALT (16-63) U/L Alkaline Phosphatase (46-116) U/L Troponin I (<or=60) ng/L Total Protein (6.4-8.2) g/dL Albumin (3.4-5.0) g/dL COVID-19 Source Nasopharynx SARS-CoV-2 (PCR) (Negative) Negative Influenza Type A (PCR) (Negative) Negative Influenza Type B (PCR) (Negative) Negative RSV (PCR) (Negative) Negative Add-On Test Request DONE Range/Units 07/06/22 19:30 WBC (4.4-10.8) 10^3/uL RBC (4.36-5.78) 10^6/uL Hgb (13.5-17.5) g/dL Hct (40.0-50.0) % MCV (80-95) fL MCH (27.0-33.0) pg MCHC (32.0-36.0) % RDW (11.8-14.1) % Plt Count (130-400) 10^3/uL MPV (8.0-11.0) fL Immature Gran % Neutrophils % Lymphocytes % Monocytes % Eosinophils % Basophils % Nucleated RBC % (0.0-0.3) % Absolute Neutrophils (1.2-6.7) 10^3/uL Absolute Lymphocytes (1.2-3.4) 10^3/uL Absolute Monocytes (0.1-0.8) 10^3/uL Absolute Eosinophils (0.0-0.7) 10^3/uL Absolute Basophils (0.0-0.2) 10^3/uL PT (9.3-11.0) sec INR (0.9-1.1) APTT (21.0-27.5) sec Sodium (136-145) mmol/L Potassium (3.5-5.1) mmol/L Chloride (98-107) mmol/L Carbon Dioxide (21.0-32.0) mmol/L Anion Gap (3-11) mmol/L BUN (7-18) mg/dL Creatinine (0.70-1.30) mg/dL Est GFR (CKD-EPI 2020) (mL/min/1.73m2) Glucose (74-106) mg/dL Calcium (8.5-10.1) mg/dL Magnesium (1.8-2.4) mg/dL Total Bilirubin (0.2-1.0) mg/dL AST (15-37) U/L ALT (16-63) U/L Alkaline Phosphatase (46-116) U/L Troponin I (<or=60) ng/L Total Protein (6.4-8.2) g/dL Albumin (3.4-5.0) g/dL COVID-19 Source SARS-CoV-2 (PCR) (Negative) Influenza Type A (PCR) (Negative) Influenza Type B (PCR) (Negative) RSV (PCR) (Negative) Add-On Test Request DONE Sign Out No HPI General Mode of arrival: wheelchair . Date/Time Provider Initiated Documentation: 07/06/22 17:28 . Limitations to Documentation: no limitations . Information obtained by: patient, RN notes reviewed and old records reviewed . HPI Narrative: 81-year-old male presents to the ER with chief complaint of shortness of breath which has worsened since Friday. He reports that he went to a physical rehab for a recent knee replacement. He did have a left knee replacement approximately 3 weeks ago. He states that the next day he began having shortness of breath. It is now worsened to where he cannot walk long distances. He reports that his oxygen has gone down to 82%. He does present hypoxic here upon arrival with an O2 sat of 85% on room air. He was placed on 2 L of oxygen nasal cannula and is up to 99%. He also endorses cough with clear sputum, nausea and dry heaves in the morning. Positive chills but no reported fever. He denies chest pain. He is vaccinated for COVID no sick contacts. Past medical history includes bilateral carotid artery stenosis, coronary artery disease, chronic kidney disease, cardiomyopathy, degenerative joint disease hypertension, hyperlipidemia NSTEMI, hypertension. Related Data Home Medications Medication Instructions Recorded Confirmed bupropion HCl 150 mg tablet,12 hr 150 mg PO BID 11/18/17 07/06/22 sustained-release multivitamin 1 tab PO DAILY 11/18/17 07/06/22 nitroglycerin 0.4 mg sublingual 1 tab PO PRN PRN 01/07/18 07/06/22 tablet atorvastatin 80 mg tablet 80 mg PO .Q PM 05/31/19 07/06/22 fluticasone propionate 50 1 inh inhalation BID 05/31/19 07/06/22 mcg/actuation blister powder for inhalation loratadine 10 mg capsule 10 mg PO DAILY 05/03/21 07/06/22 temazepam 15 mg capsule (Restoril) 15 mg PO QHS 05/25/21 07/06/22 cholecalciferol (vitamin D3) 25 25 mcg PO DAILY 08/07/21 07/06/22 mcg (1,000 unit) tablet (Vitamin D3) valsartan 40 mg tablet 320 mg PO DAILY 05/28/22 07/06/22 acetaminophen 500 mg tablet 1,000 mg PO TID #90 tabs 06/12/22 07/06/22 aspirin 81 mg tablet,delayed 81 mg PO BID #60 tabs 06/12/22 07/06/22 release celecoxib 200 mg capsule 200 mg PO BID #60 caps 06/12/22 07/06/22 fluticasone propionate 50 1 spray intranasal BID 06/12/22 07/06/22 mcg/actuation nasal spray,suspension pantoprazole 40 mg tablet,delayed 40 mg PO DAILY #30 tabs 06/12/22 07/06/22 release testosterone 100 mg/mL 2 mg IM Q14D 06/12/22 07/06/22 intramuscular suspension Previous Rx's Medication Instructions Recorded acetaminophen 500 mg tablet 1,000 mg PO TID #90 tabs 06/12/22 aspirin 81 mg tablet,delayed 81 mg PO BID #60 tabs 06/12/22 release celecoxib 200 mg capsule 200 mg PO BID #60 caps 06/12/22 pantoprazole 40 mg tablet,delayed 40 mg PO DAILY #30 tabs 06/12/22 release Allergies Allergy/AdvReac Type Severity Reaction Status Date / Time terazosin Allergy Severe Unknown Verified 07/06/22 17:26 oxycodone AdvReac Intermediate Nausea Verified 07/06/22 17:26 pollen AdvReac Intermediate sneezing, Uncoded 07/06/22 17:26 congestion General Stated Complaint: RespSymp JAMEE: 2 Review of Systems All systems reviewed & are unremarkable except as noted in HPI and below Cardiovascular Cardiovascular: Reports dyspnea and Reports dyspnea on exertion Respiratory Respiratory: Reports cough, Reports dyspnea, Reports dyspnea on exertion and Denies wheezing Gastrointestinal Gastrointestinal: Reports nausea Allergic/Immunologic Allergic/Immunologic: Denies wheezing PFSH All Active Problems (Updated 07/06/22 @ 20:51 by Sumeet Villasenor) Anemia (Chronic) CHF (congestive heart failure) (Chronic) Non-ST elevation IA (NSTEMI) (Acute) Hyponatremia (Acute) History of total left knee replacement (Acute 06/12/22) Bigeminal rhythm (Acute) Depression (Chronic) DVT prophylaxis (Acute) Advance directive discussed with patient (Acute) De Quervain's tenosynovitis, left (Acute) Steroid injection: 06/26/2020, 02/21/2021 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 (Acute) Laceration of left index finger (Acute) Fracture of distal phalanx of left index finger (Acute) De Quervain's tenosynovitis, right (Acute) Injection: 06/13/2021; 01/24/2021 Pes planus of left foot (Acute) Biceps tendinitis of left upper extremity (Acute) Bursitis of shoulder, left (Acute) Medical History (Updated 07/06/22 @ 20:51 by Sumeet Villasenor) Bilateral carotid artery stenosis CAD (coronary artery disease) Cardiomyopathy CKD (chronic kidney disease) 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 Heart palpitations None recently (05/28/22) History of non-ST elevation myocardial infarction (NSTEMI) November 2017 HLD (hyperlipidemia) HTN (hypertension) with goal to be determined Hx of sinusitis Hyperpiesia Hypertension Surgical History (Updated 06/27/22 @ 10:36 by Audrey Bear RN) History of heart artery stent History of revision of total replacement of right knee joint Right TKA - [place] (2003) Two-stage revision for infection -[place] (2008) Hx of cataract surgery Hx of rhinoplasty S/P ORIF (open reduction internal fixation) fracture Right distal femur fracture Status post laparoscopic cholecystectomy (~01/2022) Status post left foot surgery (09/17/21) [facility] Social History Smoking/Tobacco Use Status: Former Tobacco Use Quit Date: 08/18/91 Smoking risk assessment performed?: Yes Alcohol Intake: former Substance use type: does not use Do you feel safe at home: Yes Do you feel safe in your relationship?: Yes Additional Social history: unable to assess Exam Narrative Exam Narrative: Constitutional: Alert and oriented x3. Appears stated age. Normal body habitus. Head: Normocephalic, no trauma. Eyes: Pupils PERRL, Red reflex noted, EOM's intact. Eyelids symmetrical without lesions, discharge, or swelling. ENT: Bilateral TM's WNL, External ear normal to inspection, no mastoid TTP, swelling, or erythema, Nasal turbinates WNL, no nasal discharge. Normal dentition, Posterior pharynx WNL, no exudate. Chest: RRR, Normal S1, S2, distal pulses intact. Resp: Lungs clear to auscultation bilaterally, no wheezes, rales, or rhonchi. Abdomen: Soft, non-distended, Normoactive bowel sounds all 4 quads. Musculoskeletal: Unable to assess gait, 5/5 strength to all four extremities. Healed incision noted in the left knee, no surrounding erythema or induration. Skin: No suspicious rashes or lesions. Capillary refill less than 2 sec. Neurologic: Cranial nerves II-XII intact. Alert and oriented x 3. Motor: No deficits noted. Sensory: Intact bilaterally all 4 extremities. Reflexes: DTR's intact bilaterally.. Hematologic/Lymphatic: No ecchymosis, no lymphadenopathy. Course Vital Signs Vital signs: Vital Signs Temperature 36.5 C 07/06/22 17:32 Pulse 85 07/06/22 17:32 Respiratory Rate 26 H 07/06/22 17:32 Blood Pressure 176/90 H 07/06/22 17:32 Pulse Oximetry 85 L 07/06/22 17:32 Temperature 36.5 C 07/06/22 17:32 Temperature Source Temporal Artery Scan 07/06/22 17:32 Pulse 85 07/06/22 17:32 Respiratory Rate 26 H 07/06/22 17:32 Respiratory Effort Short of Breath 07/06/22 17:41 Respiratory Depth Normal 07/06/22 17:41 Blood Pressure 176/90 H 07/06/22 17:32 Blood Pressure Position Sitting 07/06/22 17:32 Pulse Oximetry 85 L 07/06/22 17:32 Oxygen Delivery Method Room Air 07/06/22 17:32 Oxygen Flow Rate 0 07/06/22 17:32 Pain Level 0 07/06/22 17:32 Comment 07/06/22 17:32
[2022-07-06 17:55] LABS: Abs Immature Grans 0.06 10^3/uL (0.0-0.06); Absolute Basophil Count 0.05 10^3/uL (0.0-0.2); Absolute Eosinophil Count 0.16 10^3/uL (0.0-0.7); Absolute Lymphocyte Count 1.66 10^3/uL (1.2-3.4); Absolute Monocyte Count 1.02 10^3/uL (0.1-0.8); Absolute Neutrophil Count 6.81 10^3/uL (1.2-6.7); Basophils % 0.5; Eosinophils % 1.6; HCT 31.2 % (40.0-50.0); HGB 9.8 g/dL (13.5-17.5); Immature Grans % 0.6; MCH 26.8 pg (27.0-33.0); MCHC 31.4 % (32.0-36.0); MCV 85 fL (80-95); MPV 9.5 fL (8.0-11.0); Monocytes % 10.5; Neutrophils % 69.8; Platelet Count 238 10^3/uL (130-400); RBC 3.66 10^6/uL (4.36-5.78); RDW 16.2 % (11.8-14.1); WBC 9.76 10^3/uL (4.4-10.8)
[2022-07-06 18:13] LABS: ALT 21 U/L (16-63); AST 32 U/L (15-37); Albumin 3.3 g/dL (3.4-5.0); Alkaline Phosphatase 103 U/L (46-116); Anion Gap 10.3 mmol/L (3-11); BUN 20 mg/dL (7-18); Bilirubin, Total 1.2 mg/dL (0.2-1.0); CO2 22.7 mmol/L (21.0-32.0); CREATININE 1.9 mg/dL (0.70-1.30); Chloride 91 mmol/L (98-107); Estimated GFR 34.79 (mL/min/1.73m2); Glucose 87 mg/dL (74-106); Total Protein 6.9 g/dL (6.4-8.2)
[2022-07-06 18:17] LABS: INR 1.2 (0.9-1.1); PTT Activated 29.1 sec (21.0-27.5); Prothrombin Time 12.3 sec (9.3-11.0)
[2022-07-06 18:25] LABS: Sodium 124 mmol/L (136-145); Troponin I 874 ng/L (<or=60)
[2022-07-06 18:37] LABS: COVID-19 PCR Negative (Negative); Influenza A PCR Negative (Negative); Influenza B PCR Negative (Negative); RSV PCR Negative (Negative)
[2022-07-06 18:42] LABS: Source Nasopharynx
[2022-07-06 18:52] LABS: Lab Add On Test DONE
[2022-07-06 18:58] LABS: Magnesium 1.8 mg/dL (1.8-2.4)
[2022-07-06] MEDS: Aspirin 81 MG CHEW 243 MG CH (19:00)
[2022-07-06] MEDS: Omnipaque 350 MG/ML 100 ML BTL IJ (19:00)
[2022-07-06] MEDS: Normal Saline Flush 10 ML SYR IVP (19:01)
[2022-07-06] MEDS: Normal Saline - Diluent 50 ML VIAL IV (19:01)
[2022-07-06] MEDS: Normal Saline 1,000 ML 250 ML IV (19:01)
--- NOTE | 2022-07-06 19:21 | DI.VRAD_ITS ---
PROCEDURE INFORMATION: Exam: CTA Chest With Contrast Exam date and time: 07/06/2022 6:48 PM Age: 81 years old Clinical indication: Shortness of breath TECHNIQUE: Imaging protocol: Computed tomographic angiography of the chest with contrast. 3D rendering (Not supervised by radiologist): MIP and/or 3D reconstructed images were created by the technologist. Contrast material: OMNIPAQUE; Contrast volume: 78 ml; Contrast route: INTRAVENOUS (IV); COMPARISON: CT CHEST PE CTA 05/03/2021 10:50 AM FINDINGS: Pulmonary arteries: Pulmonary artery is well opacified. No embolism evident. Aorta: Thoracic aorta with atherosclerotic calcium. No aneurysm or dissection. Lungs: Bronchial wall thickening of fadf-uq-vqfhimhw severity diffusely likely representing bronchitis. Mild posterior lung base atelectasis bilaterally. No lobar or daisy segmental infiltrates. Small calcified focus of the right horizontal fissure pleura with benign appearance measuring 3 mm. Pleural spaces: Unremarkable. No pneumothorax. No pleural effusion. Heart: Moderate cardiac enlargement. Moderate coronary artery atherosclerotic calcium. Coronary artery stents suggested. Lymph nodes: Unremarkable. No enlarged lymph nodes. Gallbladder and bile ducts: Previous cholecystectomy. Kidneys and ureters: Partially visualize large right renal cyst measuring 5.5 cm. No imaging follow-up recommended based on MIPS criteria. Left upper pole renal cyst measuring 3.5 cm. Bones/joints: Thoracic spine degenerative changes. No acute features. Soft tissues: Unremarkable. IMPRESSION: 1. Diffuse lgxp-fl-tvtqtgsb bronchial wall thickening suggesting process such as bronchitis. 2. Bilateral posterior lung base mild atelectasis. 3. No acute lung infiltrates or edema. 4. No pulmonary arterial embolism. 5. Cardiomegaly. Coronary artery atherosclerosis. Dictated and Authenticated by: Noé Pereira MD. Ordering:MAYO Porras MD
[2022-07-06 19:34] LABS: Lab Add On Test DONE
[2022-07-06 19:56] LABS: NT-proBNP 11580 pg/mL (<300)
[2022-07-06] MEDS: Furosemide 40 MG/4 ML VIAL IVP (20:18)
--- NOTE | 2022-07-06 20:30 | RT.EKG_ITS ---
APPROVED REPORT Exam: Resting ECG Reason for Exam: Elevated troponin Patient Location: E HR:80 bpm ECG Measurements Heart Rate 80 AXIS NE 247 P -13 QRSd 82 QRS -31 QT 400 T 20 QTc 462 Conclusion Sinus rhythm...normal P axis, V-rate 60- 99 Prolonged NE interval...NE >220, V-rate 50- 90 Left ventricular hypertrophy...multiple voltage criteria Physician: no stemi, minimal elevation in V2, unchanged from prior ekg
--- NOTE | 2022-07-06 20:45 | W.PM.HP.N ---
Date of service: 07/06/22 Time of Service: 20:45 Assessment and Plan Assessment and plan (1) CHF (congestive heart failure): Start date: 07/06/22 Status: Acute Assessment and plan: This is an 81-year-old gentleman with known CAD now with elevated troponins and appearing to be in CHF. His main symptom was shortness of breath. Continue IV diuresis and trend labs. Patient will be on fluid restriction because of chronic hyponatremia which will be treated only with fluid restriction at this time. He did receive 500 cc normal saline in the ED. He is diuresing well with his Lasix. He continues to have a cough. He is not having chest pain or dyspnea with rest. He will need updated echocardiogram and trending troponins with his elevated troponins. If worsening symptoms consider non-STEMI type I and heparinization with rediscussion of possible transfer for cardiac catheterization at [facility] [place]. Patient is a full code. (2) Non-ST elevation SC (NSTEMI): Start date: 07/06/22 Status: Acute Assessment and plan: Elevated troponins but appear to be flat just above the thousand. Patient is not having chest pain. Trend while treating CHF and if worsening acutely consider IV heparin and rediscussion of possible transfer for cardiac catheterization with [facility] [place]. He is a full code. He is initiated on metoprolol already been on an ARB and continuation of his high-dose Lipitor. (3) Hyponatremia: Status: Chronic Assessment and plan: Free water restriction to 1.5 L a day and trend labs. (4) Anemia: Status: Chronic Assessment and plan: Associated with CKD which appears to be stable overall. Continue to monitor. This is not appear to be contributed patient presents symptoms. History of Present Illness History of Present Illness Chief Complaint: Dyspnea upon exertion Narrative: This is an 81-year-old male patient who has significant history of CAD with non-STEMI and stenting in 2018 also with CKD and chronic anemia as well as cardiomyopathy, carotid artery stenosis, chronic hyponatremia, hyperlipidemia and hypertension uncontrolled who presents with dyspnea upon exertion earlier in the week status post left total knee 3 weeks prior to this presentation. In the ED he was evaluated for his shortness of breath with some hypoxemia with patient not chronically on oxygen at home. His CTA of the chest did not reveal pulmonary embolus the patient may have had CHF exacerbation clinically with bronchitis. There were no pleural effusions or infiltrates. Patient was initiated on treatment for bronchitis but also O2 supplementation and IV Lasix for diuresis. He continues with cough which is not productive but he feels less short of breath. His dyspnea was only with exertion. He denies any chest pain or increased peripheral edema. His troponins were up in the thousands but stable and cardiology at [facility] [place] did not suggest heparin infusion or cardiac catheterization thinking that this most likely was secondary elevation of troponins from his respiratory distress but if changed consider non-STEMI type I with heparinization and reevaluation for transfer and cardiac catheterization. Patient is a full code. Review of Systems Narrative: 13 point review of systems otherwise unrevealing or stable. PFSH All Active Problems (Updated 07/07/22 @ 07:38 by Sumeet Villasenor) Anemia (Chronic) CHF (congestive heart failure) (Acute) Non-ST elevation SC (NSTEMI) (Acute) Hyponatremia (Chronic) History of total left knee replacement (Acute 06/12/22) Bigeminal rhythm (Acute) Depression (Chronic) DVT prophylaxis (Acute) Advance directive discussed with patient (Acute) De Quervain's tenosynovitis, left (Acute) Steroid injection: 06/26/2020, 02/21/2021 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 (Acute) Laceration of left index finger (Acute) Fracture of distal phalanx of left index finger (Acute) De Quervain's tenosynovitis, right (Acute) Injection: 06/13/2021; 01/24/2021 Pes planus of left foot (Acute) Biceps tendinitis of left upper extremity (Acute) Bursitis of shoulder, left (Acute) Medical History (Updated 07/07/22 @ 07:38 by Sumeet Villasenor) Bilateral carotid artery stenosis CAD (coronary artery disease) Cardiomyopathy CKD (chronic kidney disease) 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 Heart palpitations None recently (05/28/22) History of non-ST elevation myocardial infarction (NSTEMI) November 2017 HLD (hyperlipidemia) HTN (hypertension) with goal to be determined Hx of sinusitis Hyperpiesia Hypertension Surgical History (Updated 06/27/22 @ 10:36 by Audrey Bear RN) History of heart artery stent History of revision of total replacement of right knee joint Right TKA - [place] (2003) Two-stage revision for infection -[place] (2008) Hx of cataract surgery Hx of rhinoplasty S/P ORIF (open reduction internal fixation) fracture Right distal femur fracture Status post laparoscopic cholecystectomy (~01/2022) Status post left foot surgery (09/17/21) [facility] Social History Smoking/Tobacco Use Status: Former Tobacco Use Quit Date: 08/18/91 Smoking risk assessment performed?: Yes Alcohol Intake: former Substance use type: does not use Do you feel safe at home: Yes Do you feel safe in your relationship?: Yes Additional Social history: unable to assess Meds Allergies and Home Medications Allergies Allergy/AdvReac Type Severity Reaction Status Date / Time terazosin Allergy Severe Unknown Verified 07/06/22 17:26 oxycodone AdvReac Intermediate Nausea Verified 07/06/22 17:26 pollen AdvReac Intermediate sneezing, Uncoded 07/06/22 17:26 congestion Home Medications Medication Instructions Recorded Confirmed Type bupropion HCl 150 mg tablet,12 hr 150 mg PO BID 11/18/17 07/06/22 History sustained-release multivitamin 1 tab PO DAILY 11/18/17 07/06/22 History nitroglycerin 0.4 mg sublingual 1 tab PO PRN PRN 01/07/18 07/06/22 History tablet atorvastatin 80 mg tablet 80 mg PO .Q PM 05/31/19 07/06/22 History fluticasone propionate 50 1 inh inhalation BID 05/31/19 07/06/22 History mcg/actuation blister powder for inhalation loratadine 10 mg capsule 10 mg PO DAILY 05/03/21 07/06/22 History temazepam 15 mg capsule (Restoril) 15 mg PO QHS 05/25/21 07/06/22 History cholecalciferol (vitamin D3) 25 25 mcg PO DAILY 08/07/21 07/06/22 History mcg (1,000 unit) tablet (Vitamin D3) valsartan 40 mg tablet 320 mg PO DAILY 05/28/22 07/06/22 History acetaminophen 500 mg tablet 1,000 mg PO TID #90 tabs 06/12/22 07/06/22 Rx aspirin 81 mg tablet,delayed 81 mg PO BID #60 tabs 06/12/22 07/06/22 Rx release celecoxib 200 mg capsule 200 mg PO BID #60 caps 06/12/22 07/06/22 Rx fluticasone propionate 50 1 spray intranasal BID 06/12/22 07/06/22 History mcg/actuation nasal spray,suspension pantoprazole 40 mg tablet,delayed 40 mg PO DAILY #30 tabs 06/12/22 07/06/22 Rx release testosterone 100 mg/mL 2 mg IM Q14D 06/12/22 07/06/22 History intramuscular suspension Exam Narrative Exam Narrative: General: Patient appears older than stated age, alert and oriented x3 and in no acute distress. HEENT: Normocephalic, eyes with pupils equal react light symmetrically, extraocular movement tact and sclera anicteric. Oropharynx with moist mucosa. Neck: Supple without JVD. Back: Stooped posture without CVA tenderness. Lungs: Bronchovesicular breath sounds diffusely with no focalizing rales or rhonchi but upper airway noise with cough. No expiratory wheeze. Fair to poor aeration. Heart: Regular rate and rhythm with systolic murmur left sternal border, no gallop or rubs. Abdomen: Normal contour, soft and nontender to palpation with no palpable hepatosplenomegaly. Genitalia/rectal: Exam deferred. Extremities: Without clubbing, cyanosis or pitting edema with nonpitting edema left lower extremity status post left TKA with well-healed surgical scar over patella area. Cap refill fair. Skin: Diffuse actinic changes over sun exposed areas, otherwise pale, warm and dry. Neuro: Cranial nerves II through XII gross intact, no focalizing motor deficits. Psych: Normal affect and mood, slightly anxious at times when discussing his overall health. No abnormal thought processes. Remote and recent memory intact. Results Imaging Imaging Studies: Exam: CTA Chest With Contrast Exam date and time: 07/06/2022 6:48 PM Age: 81 years old Clinical indication: Shortness of breath TECHNIQUE: Imaging protocol: Computed tomographic angiography of the chest with contrast. 3D rendering (Not supervised by radiologist): MIP and/or 3D reconstructed images were created by the technologist. Contrast material: OMNIPAQUE; Contrast volume: 78 ml; Contrast route: INTRAVENOUS (IV);? COMPARISON: CT CHEST PE CTA 05/03/2021 10:50 AM FINDINGS: Pulmonary arteries: Pulmonary artery is well opacified. No embolism evident. Aorta: Thoracic aorta with atherosclerotic calcium. No aneurysm or dissection. Lungs: Bronchial wall thickening of [id number] severity diffusely likely representing bronchitis. Mild posterior lung base atelectasis bilaterally. No lobar or daisy segmental infiltrates. Small calcified focus of the right horizontal fissure pleura with benign appearance measuring 3 mm. Pleural spaces: Unremarkable. No pneumothorax. No pleural effusion. Heart: Moderate cardiac enlargement. Moderate coronary artery atherosclerotic calcium. Coronary artery stents suggested. Lymph nodes: Unremarkable. No enlarged lymph nodes. Gallbladder and bile ducts: Previous cholecystectomy. Kidneys and ureters: Partially visualize large right renal cyst measuring 5.5 cm. No imaging follow-up recommended based on MIPS criteria. Left upper pole renal cyst measuring 3.5 cm. Bones/joints: Thoracic spine degenerative changes. No acute features. Soft tissues: Unremarkable. IMPRESSION: 1. Diffuse [id number] bronchial wall thickening suggesting process such as bronchitis. 2. Bilateral posterior lung base mild atelectasis. 3. No acute lung infiltrates or edema. 4. No pulmonary arterial embolism. 5. Cardiomegaly. Coronary artery atherosclerosis. Labs Result diagrams: 07/07/22 05:14 07/07/22 05:14 Labs: Laboratory Results - last 24 hr 07/06/22 07/06/22 07/06/22 17:42 17:42 17:42 WBC 9.76 RBC 3.66 L Hgb 9.8 L Hct 31.2 L MCV 85 MCH 26.8 L MCHC 31.4 L RDW 16.2 H Plt Count 238 MPV 9.5 Immature Gran % 0.6 Neutrophils % 69.8 Lymphocytes % 17.0 Monocytes % 10.5 Eosinophils % 1.6 Basophils % 0.5 Nucleated RBC % 0.0 Absolute Neutrophils 6.81 H Absolute Lymphocytes 1.66 Absolute Monocytes 1.02 H Absolute Eosinophils 0.16 Absolute Basophils 0.05 PT 12.3 H INR 1.2 H APTT 29.1 H Sodium 124 L Potassium 4.0 Chloride 91 L Carbon Dioxide 22.7 Anion Gap 10.3 BUN 20 H Creatinine 1.9 H Est GFR (CKD-EPI 2020) 34.79 Glucose 87 Calcium 8.0 L Magnesium Total Bilirubin 1.2 H AST 32 ALT 21 Alkaline Phosphatase 103 Troponin I 874 H* NT-Pro-B Natriuret Pep Total Protein 6.9 Albumin 3.3 L COVID-19 Source SARS-CoV-2 (PCR) Influenza Type A (PCR) Influenza Type B (PCR) RSV (PCR) Add-On Test Request 07/06/22 07/06/22 07/06/22 17:42 17:42 17:42 WBC RBC Hgb Hct MCV MCH MCHC RDW Plt Count MPV Immature Gran % Neutrophils % Lymphocytes % Monocytes % Eosinophils % Basophils % Nucleated RBC % Absolute Neutrophils Absolute Lymphocytes Absolute Monocytes Absolute Eosinophils Absolute Basophils PT INR APTT Sodium Potassium Chloride Carbon Dioxide Anion Gap BUN Creatinine Est GFR (CKD-EPI 2020) Glucose Calcium Magnesium 1.8 Total Bilirubin AST ALT Alkaline Phosphatase Troponin I NT-Pro-B Natriuret Pep 58936 H Total Protein Albumin COVID-19 Source SARS-CoV-2 (PCR) Influenza Type A (PCR) Influenza Type B (PCR) RSV (PCR) Add-On Test Request DONE 07/06/22 07/06/22 17:55 19:30 WBC RBC Hgb Hct MCV MCH MCHC RDW Plt Count MPV Immature Gran % Neutrophils % Lymphocytes % Monocytes % Eosinophils % Basophils % Nucleated RBC % Absolute Neutrophils Absolute Lymphocytes Absolute Monocytes Absolute Eosinophils Absolute Basophils PT INR APTT Sodium Potassium Chloride Carbon Dioxide Anion Gap BUN Creatinine Est GFR (CKD-EPI 2020) Glucose Calcium Magnesium Total Bilirubin AST ALT Alkaline Phosphatase Troponin I NT-Pro-B Natriuret Pep Total Protein Albumin COVID-19 Source Nasopharynx SARS-CoV-2 (PCR) Negative Influenza Type A (PCR) Negative Influenza Type B (PCR) Negative RSV (PCR) Negative Add-On Test Request DONE Last Vital Signs Temp 36.5 C 07/06/22 17:32 Pulse 85 07/06/22 17:32 Resp 26 H 07/06/22 17:32 BP 176/90 H 07/06/22 17:32 Pulse Ox 85 L 07/06/22 17:32
[2022-07-06 21:05] LABS: Troponin I 938 ng/L (<or=60)
[2022-07-06 21:40] LABS: Bilirubin Negative (Negative); Blood Negative (Negative); Clarity Clear (Clear); Glucose Negative (Negative); Ketones Negative (Negative); Leukocyte Esterase Negative (Negative); Nitrite Negative (Negative); Specific Gravity 1.015 (1.005-1.025); Urobilinogen 0.2 EU/dL (Up TO 0.2); pH 6.5 (5-8)
[2022-07-06] MEDS: Metoprolol 25 MG TAB PO (22:39)
[2022-07-06] MEDS: Temazepam 15 MG CAP PO (22:39)
[2022-07-06] MEDS: Enoxaparin 30 MG/0.3 ML SYR SC (22:39)
[2022-07-06] MEDS: AZITHROMYCIN 500 MG in Normal Saline 250 ML 250 MG IVPB (23:08)
[2022-07-07] VITALS (23 sets, daily range): BP systolic 111–138; BP diastolic 59–78; PULSE 54–77; RESP 15–22; TEMP 36.5–36.8; O2SAT 93–100
[2022-07-07 00:22] LABS: Troponin I 902 ng/L (<or=60)
[2022-07-07] MEDS: guaiFENesin/D-METHORPHAN HB 5 ML CUP 10 ML PO (02:29)
[2022-07-07] MEDS: Metoprolol 25 MG TAB PO ×4 (02:29→22:36)
[2022-07-07 06:12] LABS: HCT 27.9 % (40.0-50.0); HGB 8.8 g/dL (13.5-17.5); MCH 26.5 pg (27.0-33.0); MCHC 31.5 % (32.0-36.0); MCV 84 fL (80-95); Platelet Count 193 10^3/uL (130-400); RBC 3.32 10^6/uL (4.36-5.78); RDW 16.4 % (11.8-14.1); RDW-SD 49.8 fL
[2022-07-07 06:22] LABS: INR 1.2 (0.9-1.1); Prothrombin Time 12.1 sec (9.3-11.0)
[2022-07-07 06:31] LABS: ALT 16 U/L (16-63); AST 30 U/L (15-37); Albumin 2.8 g/dL (3.4-5.0); Alkaline Phosphatase 98 U/L (46-116); BUN 20 mg/dL (7-18); Bilirubin, Total 0.9 mg/dL (0.2-1.0); CREATININE 1.7 mg/dL (0.70-1.30); Calcium 7.6 mg/dL (8.5-10.1); Chloride 95 mmol/L (98-107); Estimated GFR 39.75 (mL/min/1.73m2); Glucose 81 mg/dL (74-106); Magnesium 1.9 mg/dL (1.8-2.4); Potassium 3.9 mmol/L (3.5-5.1); Sodium 128 mmol/L (136-145); Total Protein 5.9 g/dL (6.4-8.2)
[2022-07-07 06:35] LABS: Troponin I 1005 ng/L (<or=60)
--- NOTE | 2022-07-07 07:45 | RT.EKG_ITS ---
APPROVED REPORT Exam: Resting ECG Reason for Exam: NSTEMI Patient Location: I HR:65 bpm ECG Measurements Heart Rate [address] 286 P -24 QRSd 91 QRS -29 QT 431 T 75 QTc 449 Conclusion Sinus rhythm...normal P axis, V-rate 50- [address] interval...CT >220, V-rate 50- 90 Left ventricular hypertrophy...multiple voltage criteria
--- NOTE | 2022-07-07 08:22 | INITIAL_ITS ---
- If Service Date Differs Date of service: 07/07/22 Time of Service: 08: Care Management Initial Assess REASON FOR HOSPITALIZATION:: CHF, Elevated Troponin PAST MEDICAL HISTORY/PAST SURGICAL HISTORY:: All Active Problems (Updated 07/07/22 @ 07:38 by Sumeet Villasenor). Anemia (Chronic). CHF (congestive heart failure) (Acute). Non-ST elevation SC (NSTEMI) (Acute). Hyponatremia (Chronic). History of total left knee replacement (Acute 06/12/22). Bigeminal rhythm (Acute). Depression (Chronic). DVT prophylaxis (Acute). Advance directive discussed with patient (Acute). De Quervain's tenosynovitis, left (Acute). Steroid injection: 06/26/2020, 02/21/2021. 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 Laceration of left index finger (Acute). Fracture of distal phalanx of left index finger (Acute). De Quervain's tenosynovitis, right (Acute). Injection: 06/13/2021; 01/24/2021. Pes planus of left foot (Acute). Biceps tendinitis of left upper extremity (Acute). Bursitis of shoulder, left (Acute). Medical History (Updated 07/07/22 @ 07:38 by Sumeet Villasenor). Bilateral carotid artery stenosis. CAD (coronary artery disease). Cardiomyopathy. CKD (chronic kidney disease). 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. arthiritis in thumbs. Heart palpitations. None recently (05/28/22). History of non-ST elevation myocardial infarction (NSTEMI). November 2017. HLD (hyperlipidemia). HTN (hypertension) with goal to be determined. Hx of sinusitis. Hyperpiesia. Hypertension. Surgical History (Updated 06/27/22 @ 10:36 by Audrey Bear RN). History of heart artery stent. History of revision of total replacement of right knee joint. Right TKA - [place] (2003). Two-stage revision for infection -[place] (2008). Hx of cataract surgery. Hx of rhinoplasty. S/P ORIF (open reduction internal fixation) fracture. Right distal femur fracture. Status post laparoscopic cholecystectomy (~01/2022). Status post left foot surgery (09/17/21). [facility] PREVIOUS FUNCTIONAL STATUS/SOCIAL/FAMILY SUPPORTS:: Tra lives in [place] with his , Jesse. 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 Tra drives and is active and independent at baseline. 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 Tra shares that his only child a few years ago, after losing her montemayor to addiction. CURRENT FUNCTIONAL STATUS:: Tra is lying in bed with the HOB elevated when CM met with him. He is awake, alert and easily engages in conversation. 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 Per Tra, he's used a walker for the last 3 weeks after having a LTK replacement. Unfortunately, he fell at home and has a considerable amount of bruising and pain in his right leg. MD is notified. ADVANCE DIRECTIVES:: On file, [facility] is Jesse Has patient been provided with info about the portal/API?: Yes Did the patient sign up for the portal?: No CODE STATUS:: Full Code INSURANCE COVERAGE / FINANCIAL ISSUES:: [email or web address] [employer] Replacement CURRENT HOME/COMMUNITY SERVICES/EQUIPMENT:: Outpatient PT with [facility] s/p LTK replacement. Uses a walker PRIMARY CARE PHYSICIAN:: Karo Otero POTENTIAL DISCHARGE NEEDS:: Evaluations for further needs, follow up appts with Cardiology, PCP and Ortho. PATIENT/FAMILY EDUCATION NEEDS:: Review discharge instructions, limitations, medications and plan to follow up with community providers. Discuss ask me three and goals of self care. TRANSPORTATION:: Dependant on disposition. If able to discharge home, will transport. PLAN:: Tra requires close cardiact monitoring and treatment. Tra recently fell at home and injured his right leg, PT consult is ordered. Dr. Boyd is reviewing this case with [facility] and may concider transfer if condition worsens. Pt will need follow up appts with his PCP (Karo Otero), Cardiology (Dr. Coleman) and Ortho (Dr. Anthony). CM will continue to follow and evaluate for further needs.
[2022-07-07] MEDS: Normal Saline Flush 10 ML SYR IVP ×2 (09:31→16:04)
[2022-07-07] MEDS: Pantoprazole 40 MG TABCR PO (09:31)
[2022-07-07] MEDS: Benzonatate 200 MG CAP PO ×3 (09:31→19:44)
[2022-07-07 09:32] LABS: Troponin I 876 ng/L (<or=60)
[2022-07-07] MEDS: Multivitamin TAB 1 TAB PO (09:32)
[2022-07-07] MEDS: Aspirin E.C. 81 MG TABEC PO ×2 (09:32→19:44)
[2022-07-07] MEDS: Furosemide 40 MG/4 ML VIAL IVP ×2 (09:32→16:05)
[2022-07-07] MEDS: Cholecalciferol (Vitamin D3) 1,000 UNIT TAB 1000 UNITS PO (09:32)
[2022-07-07] MEDS: Celecoxib 200 MG CAP PO ×2 (09:32→19:44)
[2022-07-07] MEDS: Valsartan 80 MG TAB 320 MG PO (09:32)
[2022-07-07] MEDS: Fluticasone NASAL SPRAY 16 GM BTL NS ×2 (09:33→19:44)
[2022-07-07] MEDS: buPROPion-CR 150 MG TABCR PO ×2 (09:33→19:44)
[2022-07-07] MEDS: Mometasone 220 MCG 14 DOSE INHALER 1 PUFF IH ×2 (09:33→19:44)
[2022-07-07] MEDS: Loratidine 10 MG TAB PO (09:33)
[2022-07-07] MEDS: Polyethylene Glycol 3350 17 GM PACKET PO (12:41)
--- NOTE | 2022-07-07 14:49 | PGE_ITS ---
Date of Service Date of service: 07/07/22 Time of Service: 14:50 Assessment and Plan Assessment and plan (1) CHF (congestive heart failure): Start date: 07/06/22 Status: Acute Assessment and plan: BNP 39355. Diuresed with IV lasix in the ED. Cont Lasix 40mg IV BID. Improved ease of breathing. Now back on RA. (2) Non-ST elevation [place] (NSTEMI): Start date: 07/06/22 Status: Acute Assessment and plan: Elevated troponins but appear to be flat; 5th drop down to 876 from peak of 1005. Patient is not having chest pain. If worsening acutely consider IV heparin and re-discussion of possible transfer for cardiac catheterization with [facility]. He is a full code. He is initiated on metoprolol already been on an ARB and continuation of his aspirin and high-dose Lipitor. (3) Hyponatremia: Status: Chronic Assessment and plan: Free water restriction to 1.5 L a day and trend labs. Improved from 124 to 128. (4) Anemia: Status: Chronic Assessment and plan: Presenting Hgb of 9.8. Repeat the AM after admission was 8.8 No evidence of GI loss. Likely d/t CKD Monitor. (5) History of total left knee replacement: Status: Acute Assessment and plan: L knee replacement 3 weeks ago. Initially, certainly, there was a concern for a pulmonary embolism. CTA chest neg. for P.E. Will make ortho aware of his admission. (6) CAD (coronary artery disease): Assessment and plan: Previously with 2 stents placed appx 4 years ago. Cont aspirin and high dose lipitor. No CP. (7) Cardiomyopathy: Assessment and plan: No recent echocardiogram in records. Myocardial perfusion scan Nuc Med in 05/2021 was negative for ischemia. Echocardiogram ordered. (8) CKD (chronic kidney disease): Assessment and plan: Baseline creatinine in the 1.5 - 1.8 range according to lab in [facility] medical record. Presenting creatinine this admission was 1.9; now 1.7. Monitor. (9) Discharge planning issues: Status: Acute Assessment and plan: Full code. If echocardiogram is reassuring, likely home tomorrow. Subjective Subjective Patient reports: feels better and afebrile; denies nausea, vomiting or shortness of breath Interval history since last seen: No CP or palpitations. Exam Narrative Exam Narrative: General: Lying in bed. Conversant. NAD HEENT: Sclera clear. MMM. Neck: Supple without JVD. Lungs: Bronchovesicular breath sounds. Clear. Nonlabored breathing. Heart: Regular rate and rhythm with systolic murmur left sternal border. Abdomen: soft and nontender. Extremities:No pitting edema with nonpitting edema left lower extremity status post left TKA with well-healed surgical scar over patella area. Skin: Diffuse actinic changes over sun exposed areas, otherwise pale, warm and dry. Neuro: No focal motor deficits. + facial symmetry. Psych: Normal affect and mood. Objective Last Vital Signs Temp 36.5 C 07/07/22 11:54 Pulse 54 L 07/07/22 11:54 Resp 18 07/07/22 11:54 BP 124/73 07/07/22 11:54 Pulse Ox 99 07/07/22 11:54 Laboratory Results - last 24 hr 07/06/22 07/06/22 07/06/22 17:42 17:42 17:42 WBC 9.76 RBC 3.66 L Hgb 9.8 L Hct 31.2 L MCV 85 MCH 26.8 L MCHC 31.4 L RDW 16.2 H Plt Count 238 MPV 9.5 Immature Gran % 0.6 Neutrophils % 69.8 Lymphocytes % 17.0 Monocytes % 10.5 Eosinophils % 1.6 Basophils % 0.5 Nucleated RBC % 0.0 Absolute Neutrophils 6.81 H Absolute Lymphocytes 1.66 Absolute Monocytes 1.02 H Absolute Eosinophils 0.16 Absolute Basophils 0.05 PT 12.3 H INR 1.2 H APTT 29.1 H Sodium 124 L Potassium 4.0 Chloride 91 L Carbon Dioxide 22.7 Anion Gap 10.3 BUN 20 H Creatinine 1.9 H Est GFR (CKD-EPI 2020) 34.79 Glucose 87 Calcium 8.0 L Magnesium Total Bilirubin 1.2 H AST 32 ALT 21 Alkaline Phosphatase 103 Troponin I 874 H* NT-Pro-B Natriuret Pep Total Protein 6.9 Albumin 3.3 L Urine Color Urine Clarity Urine pH Ur Specific [place] Urine Protein Urine Ketones Urine Blood Urine Nitrite Urine Bilirubin Urine Urobilinogen Ur Leukocyte Esterase Urine Glucose COVID-19 Source SARS-CoV-2 (PCR) Influenza Type A (PCR) Influenza Type B (PCR) RSV (PCR) Add-On Test Request 07/06/22 07/06/22 07/06/22 17:42 17:42 17:42 WBC RBC Hgb Hct MCV MCH MCHC RDW Plt Count MPV Immature Gran % Neutrophils % Lymphocytes % Monocytes % Eosinophils % Basophils % Nucleated RBC % Absolute Neutrophils Absolute Lymphocytes Absolute Monocytes Absolute Eosinophils Absolute Basophils PT INR APTT Sodium Potassium Chloride Carbon Dioxide Anion Gap BUN Creatinine Est GFR (CKD-EPI 2020) Glucose Calcium Magnesium 1.8 Total Bilirubin AST ALT Alkaline Phosphatase Troponin I NT-Pro-B Natriuret Pep 73581 H Total Protein Albumin Urine Color Urine Clarity Urine pH Ur Specific [place] Urine Protein Urine Ketones Urine Blood Urine Nitrite Urine Bilirubin Urine Urobilinogen Ur Leukocyte Esterase Urine Glucose COVID-19 Source SARS-CoV-2 (PCR) Influenza Type A (PCR) Influenza Type B (PCR) RSV (PCR) Add-On Test Request DONE 07/06/22 07/06/22 07/06/22 17:55 19:30 20:33 WBC RBC Hgb Hct MCV MCH MCHC RDW Plt Count MPV Immature Gran % Neutrophils % Lymphocytes % Monocytes % Eosinophils % Basophils % Nucleated RBC % Absolute Neutrophils Absolute Lymphocytes Absolute Monocytes Absolute Eosinophils Absolute Basophils PT INR APTT Sodium Potassium Chloride Carbon Dioxide Anion Gap BUN Creatinine Est GFR (CKD-EPI 2020) Glucose Calcium Magnesium Total Bilirubin AST ALT Alkaline Phosphatase Troponin I 938 H* NT-Pro-B Natriuret Pep Total Protein Albumin Urine Color Urine Clarity Urine pH Ur Specific [place] Urine Protein Urine Ketones Urine Blood Urine Nitrite Urine Bilirubin Urine Urobilinogen Ur Leukocyte Esterase Urine Glucose COVID-19 Source Nasopharynx SARS-CoV-2 (PCR) Negative Influenza Type A (PCR) Negative Influenza Type B (PCR) Negative RSV (PCR) Negative Add-On Test Request DONE 07/06/22 07/06/22 07/07/22 21:33 23:40 05:14 WBC RBC Hgb Hct MCV MCH MCHC RDW Plt Count MPV Immature Gran % Neutrophils % Lymphocytes % Monocytes % Eosinophils % Basophils % Nucleated RBC % Absolute Neutrophils Absolute Lymphocytes Absolute Monocytes Absolute Eosinophils Absolute Basophils PT INR APTT Sodium Potassium Chloride Carbon Dioxide Anion Gap BUN Creatinine Est GFR (CKD-EPI 2020) Glucose Calcium Magnesium Total Bilirubin AST ALT Alkaline Phosphatase Troponin I 902 H* 1005 H* NT-Pro-B Natriuret Pep Total Protein Albumin Urine Color Yellow Urine Clarity Clear Urine pH 6.5 Ur Specific [place] 1.015 Urine Protein Negative Urine Ketones Negative Urine Blood Negative Urine Nitrite Negative Urine Bilirubin Negative Urine Urobilinogen 0.2 Ur Leukocyte Esterase Negative Urine Glucose Negative COVID-19 Source SARS-CoV-2 (PCR) Influenza Type A (PCR) Influenza Type B (PCR) RSV (PCR) Add-On Test Request 07/07/22 07/07/22 07/07/22 05:14 05:14 05:14 WBC 8.50 RBC 3.32 L Hgb 8.8 L Hct 27.9 L MCV 84 MCH 26.5 L MCHC 31.5 L RDW 16.4 H Plt Count 193 MPV 10.0 Immature Gran % Neutrophils % Lymphocytes % Monocytes % Eosinophils % Basophils % Nucleated RBC % Absolute Neutrophils Absolute Lymphocytes Absolute Monocytes Absolute Eosinophils Absolute Basophils PT 12.1 H INR 1.2 H APTT Sodium 128 L Potassium 3.9 Chloride 95 L Carbon Dioxide 27.0 Anion Gap 6.0 BUN 20 H Creatinine 1.7 H Est GFR (CKD-EPI 2020) 39.75 Glucose 81 Calcium 7.6 L Magnesium 1.9 Total Bilirubin 0.9 AST 30 ALT 16 Alkaline Phosphatase 98 Troponin I NT-Pro-B Natriuret Pep Total Protein 5.9 L Albumin 2.8 L Urine Color Urine Clarity Urine pH Ur Specific [place] Urine Protein Urine Ketones Urine Blood Urine Nitrite Urine Bilirubin Urine Urobilinogen Ur Leukocyte Esterase Urine Glucose COVID-19 Source SARS-CoV-2 (PCR) Influenza Type A (PCR) Influenza Type B (PCR) RSV (PCR) Add-On Test Request 07/07/22 09:00 WBC RBC Hgb Hct MCV MCH MCHC RDW Plt Count MPV Immature Gran % Neutrophils % Lymphocytes % Monocytes % Eosinophils % Basophils % Nucleated RBC % Absolute Neutrophils Absolute Lymphocytes Absolute Monocytes Absolute Eosinophils Absolute Basophils PT INR APTT Sodium Potassium Chloride Carbon Dioxide Anion Gap BUN Creatinine Est GFR (CKD-EPI 2020) Glucose Calcium Magnesium Total Bilirubin AST ALT Alkaline Phosphatase Troponin I 876 H* NT-Pro-B Natriuret Pep Total Protein Albumin Urine Color Urine Clarity Urine pH Ur Specific [place] Urine Protein Urine Ketones Urine Blood Urine Nitrite Urine Bilirubin Urine Urobilinogen Ur Leukocyte Esterase Urine Glucose COVID-19 Source SARS-CoV-2 (PCR) Influenza Type A (PCR) Influenza Type B (PCR) RSV (PCR) Add-On Test Request
[2022-07-07] MEDS: Atorvastatin 40 MG TAB 80 MG PO (19:44)
[2022-07-07] MEDS: AZITHROMYCIN 500 MG in Normal Saline 250 ML 250 MG IVPB (22:35)
[2022-07-07] MEDS: Temazepam 15 MG CAP PO (22:36)
[2022-07-07] MEDS: Enoxaparin 40 MG/0.4 ML SYR SC (22:36)
[2022-07-08] VITALS (11 sets, daily range): BP systolic 114–149; BP diastolic 67–80; PULSE 52–66; RESP 16–19; TEMP 36.1–36.7; O2SAT 94–98
[2022-07-08] MEDS: Metoprolol 25 MG TAB PO ×3 (03:54→14:43)
[2022-07-08] MEDS: guaiFENesin/D-METHORPHAN HB 5 ML CUP 10 ML PO ×2 (04:39→19:38)
[2022-07-08 06:46] LABS: Abs Immature Grans 0.05 10^3/uL (0.0-0.06); Absolute Basophil Count 0.07 10^3/uL (0.0-0.2); Absolute Eosinophil Count 0.34 10^3/uL (0.0-0.7); Absolute Lymphocyte Count 1.91 10^3/uL (1.2-3.4); Absolute Monocyte Count 1.06 10^3/uL (0.1-0.8); Absolute Neutrophil Count 6.12 10^3/uL (1.2-6.7); Basophils % 0.7; Eosinophils % 3.6; HCT 27.3 % (40.0-50.0); HGB 8.6 g/dL (13.5-17.5); Immature Grans % 0.5; MCH 26.1 pg (27.0-33.0); MCHC 31.5 % (32.0-36.0); MCV 83 fL (80-95); MPV 10.2 fL (8.0-11.0); Monocytes % 11.1; Neutrophils % 64.1; Platelet Count 211 10^3/uL (130-400); RBC 3.29 10^6/uL (4.36-5.78); RDW 16.7 % (11.8-14.1); RDW-SD 49.6 fL; WBC 9.55 10^3/uL (4.4-10.8)
[2022-07-08] MEDS: Normal Saline Flush 10 ML SYR IVP ×3 (08:21→22:22)
[2022-07-08] MEDS: buPROPion-CR 150 MG TABCR PO ×2 (08:22→19:16)
[2022-07-08] MEDS: Multivitamin TAB 1 TAB PO (08:22)
[2022-07-08] MEDS: Benzonatate 200 MG CAP PO ×3 (08:22→19:17)
[2022-07-08] MEDS: Valsartan 80 MG TAB 320 MG PO (08:22)
[2022-07-08] MEDS: Celecoxib 200 MG CAP PO ×2 (08:23→19:17)
[2022-07-08] MEDS: Cholecalciferol (Vitamin D3) 1,000 UNIT TAB 1000 UNITS PO (08:23)
[2022-07-08] MEDS: Pantoprazole 40 MG TABCR PO (08:23)
[2022-07-08] MEDS: Fluticasone NASAL SPRAY 16 GM BTL NS ×2 (08:23→19:40)
[2022-07-08] MEDS: Furosemide 40 MG/4 ML VIAL IVP ×2 (08:23→15:41)
[2022-07-08] MEDS: Loratidine 10 MG TAB PO (08:23)
[2022-07-08] MEDS: Aspirin E.C. 81 MG TABEC PO ×2 (08:23→19:16)
[2022-07-08 08:28] LABS: Anion Gap 5.9 mmol/L (3-11); BUN 25 mg/dL (7-18); CO2 28.1 mmol/L (21.0-32.0); CREATININE 1.7 mg/dL (0.70-1.30); Calcium 7.9 mg/dL (8.5-10.1); Chloride 91 mmol/L (98-107); Estimated GFR 39.75 (mL/min/1.73m2); Glucose 96 mg/dL (74-106); Potassium 3.8 mmol/L (3.5-5.1); Sodium 125 mmol/L (136-145)
--- NOTE | 2022-07-08 08:44 | PDOC.CMPRO ---
- If Service Date Differs Date of service: 07/08/22 Time of Service: 08:44 Care Management Progress Note S/O: Tra Hood is lying in bed with the HOB elevated when CM met with him. He is awake, alert and easily engages in conversation. He cardiac status is being closely monitored. He is 3 weeks s/p Left knee replacement with Dr. Anthony. PT consult was done this morning. Of note, pt has significant right leg bruising after he reportedly fell at home last week. Erwin shares that he did not notify Dr. Anthony after the fall, because his left leg was uninjured. MD to notify Dr. Anthony. A: 81 year old male admitted on 07/06/22 for CHF, Elevated Troponin P: Erwin requires close cardiac monitoring and treatment. He recently fell at home and injured his right leg, PT consult is ordered. Dr. Boyd is reviewing this case with [facility] and may consider transfer if his condition worsens. Pt will need follow up appts with his PCP (Karo Otero), Cardiology (Dr. Coleman) and Ortho (Dr. Anthony). Erwin has outpatient PT through [facility]. CM will continue to follow and evaluate for further needs.
[2022-07-08] MEDS: Mometasone 220 MCG 14 DOSE INHALER 1 PUFF IH ×2 (10:22→19:29)
--- NOTE | 2022-07-08 10:39 | PT.INIE ---
Date of service: 07/08/22 Time of Service: 10:39 PT Notes Visit Reasons: CHF, Elevated Troponins Physical Therapy Day Surgery Initial Evaluation Date: 07/08/2022 Referring Doctor: Petey Boyd MD PT Orders: PT CONSULT: Eval/Treat Precautions: Fall. Standard. Will await orthopedic consult for weight bearing precautions on the R LE. Patient Profile/Admitting Diagnosis: Tra in an 81-year-old male patient who is S/P L TKA in 06/12/2022 who presented to the ED on 07/06/2022 with shortness of breath. He fell last week and has R LE hematoma with diagnoses of congestive heart failure, NSTEMI, hyponatremia, and anemia. 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 (Acute) Laceration of left index finger (Acute) Fracture of distal phalanx of left index finger (Acute) De Quervain's tenosynovitis, right (Acute) Injection: 06/13/2021; 01/24/2021es planus of left foot (Acute) Biceps tendinitis of left upper extremity (Acute) Bursitis of shoulder, left (Acute) Medical History?(Updated 07/07/22 @ 07:38 by Sumeet Villasenor) Bilateral carotid artery stenosis CAD (coronary artery disease) Cardiomyopathy CKD (chronic kidney disease) 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 Heart palpitations None recently (05/28/22) History of non-ST elevation myocardial infarction (NSTEMI) November 2017HLD (hyperlipidemia) HTN (hypertension) with goal to be determined Hx of sinusitis Hyperpiesia Hypertension Surgical History?(Updated 06/27/22 @ 10:36 by Audrey Bear RN) History of heart artery stent History of revision of total replacement of right knee joint Right TKA - [place] (2003) Two-stage revision for infection -[place] (2008) Hx of cataract surgery Hx of rhinoplasty S/P ORIF (open reduction internal fixation) fracture Right distal femur fracture Status post laparoscopic cholecystectomy (~01/2022) Status post left foot surgery (09/17/21) [facility] Social History/Home Situation: Lives with in a private home with 3 steps to enter with rails on B sides.? He has another flight of steps to second floor where their bedroom is.? Equipment Owned/DME: [employer], Subjective: Verbalized that he fell last Friday trying to get up from the toilet seat and became short of breath later in the afternoon. Reports 4/10 pain in the R knee with weight bearing.? Short of breath with just standing. Appears anxious about standing up that increased his shortness of breath. Objective: General Observation: Seated on chair.? Hematoma on posterior R leg and thigh. Swelling in R LE. Mental Status: A and O x4 Vital signs:? WNL as closely monitored via telemetry Pain: 4/10 in the R knee with weigt bearing ROM: Right Lower Extremity: Hip flexion WFL. Hip abduction WFL. Knee flexion WFL. Ankle dorsiflexion to neutral only. Ankle plantarflexion WFL. Left Lower Extremity: Hip flexion WFL. Hip abduction WFL. Knee flexion 20 degrees to 100 degrees.? Knee extension -20 degrees. Ankle dorsiflexion WFL. Ankle plantarflexion WFL. Strength: Right Lower Extremity: Hip flexors 4/5. Hip abductors 4/5. Knee flexors 4/5. Knee extensors 4-/5. Ankle dorsiflexors 3-/5. Ankle plantarflexors 4-/5. Left Lower Extremity:Hip flexors 4/5. Hip abductors 4/5. Knee flexors 3-/5. Knee extensors 3-/5. Ankle dorsiflexors 5/5. Ankle plantarflexors 4-/5. Sensation: Intact as to pain and light pressure in bilateral lower extremities Bed Mobility/Transfers: Sit to stand contact-guard assist Stand to sit contact guard assist Bed to chair standby assist Gait: Deferred Stairs: Deferred Balance: Static Sitting: Normal Dynamic Sitting: Normal Static Standing: Fair Dynamic Standing: Fair Special Tests: Mobility Limitations Standardized Measure [facility] AM-PAC 6 clicks Basic Mobility Inpatient Short Form: Raw Score: 17? CMS Score: 50% deficit Informed Consent/Education:? Patient instructed in purpose of PT consult.? Education and training on initial set of exercises that can be done at home have been completed with patient with reference to the MOOIs nirav. Assessment: Patient presents with clinical signs and symptoms consistent with current/admitting diagnoses that have resulted to mobility limitations, gait instability, generalized weakness, and overall ADL decline as demonstrated by the following impairment level findings: 1. Decreased strength to B LE major muscle groups 2. Impaired standing balance 3. Impaired activity tolerance 4. Limitation of joint range of motion in B knees (from previous TKA) 5. Shortness of breath 6. Swelling in R LE 7. Anxiety Impairments are contributing to the following functional limitations: 1. Decline in bed mobility skills 2. Decline in transfer skills 3. Difficulty with ambulation without assistive device and physical assistance 4. Increased completion time for mobility ADL performance 5. Increased risk for falls 6. Difficulty with managing steps alone safely Patient is assessed as a 12218 moderate complexity based on the following: History: 81-year-old male with impairment level findings, functional limitations, and past medical history as indicated above Examination: Demonstrable impairment in strength, balance, and mobility level with underlying impairments and functional limitations as documented above Presentation: Evolving Decision Makin moderate complexity Goals: Goals X1 week 1. Supine-Sit independent 2. Sit-Supine independent 3. Sit-Stand independent with FWW 4. Stand-Sit independent with FWW 5. Bed-Chair independent with FWW 6. Chair-Bed independent with FWW 7. Independent gait on level surface with use of FWW for at least 300 feet without report of pain nor dyspnea 8. Independent stair negotiation while holding onto bilateral rails for at least 10 steps without report of pain nor dyspnea 9. Independent with home exercise program 10. Good static and dynamic standing balance/tolerance Plan of Care/Treatment Plan: 1-2x/day, 7 days/week x 1 week. Plan of care has been reviewed with the DIRECTOR ATHLETIC providing the service under Physical Therapy direction. Initiate Physical Therapy intervention for pain management as needed, strengthening, bed mobility, transfers, gait, stairs, balance training, and use of assistive device. DISCHARGE RECOMMENDATIONS: [] Home with no services [] [X] Home with services. Patient will benefit from home health PT services in order to progress mobility level using least restrictive assistive ambulatory device, assess home safety, identify additional equipment needs, and establish a functional maintenance program that will increase ability of patient to remain at home. [] Home with outpatient PT [] [] SNF for continued rehabilitation [] [] [facility] [] [] SNF versus LTC based on ability to participate and progress [] TREATMENT CODE/TIME: 95169 x 20 minutes beginning at 10:39 AM. Thank you for the opportunity to participate in the care of this patient. Flory Whyte PT, DPT, CLT [facility] [place], [place]
--- NOTE | 2022-07-08 11:27 | DI.US_ITS ---
APPROVED REPORT EXAM: Comprehensive 2D, Doppler, and color-flow Echocardiogram Patient Location: In-Patient Room/Bed: [facility] Civil Structural Engineer: Zuleima Thomas RDCS (AE) Indications: CHF, NSTEMI,CAD Other Information Study Quality: Adequate. Technically limited study due to , body habitus, inability to position patie nt exam done supine. Conclusion Normal left ventricular wall thickness and chamber size. Estimated ejection fraction is 45 to 50%, m ildly reduced systolic function. There are no segmental wall motion abnormalities Normal right ventricular size and systolic function Both atria are mildly dilated Aortic valve is mildly sclerotic and trileaflet with mild regurgitation Normal mitral valve with moderate regurgitation Normal tricuspid valve with mild regurgitation. Estimated right ventricular systolic pressure is 45 mmHg Dilated ascending aorta measuring 3.9 cm Wall motion Left Ventricle The left ventricle is normal size. Left ventricular systolic function is mildly decreased. There is n ormal left ventricular wall thickness. There is global hypokinesis of the left ventricle. There is no ventricular septal defect visualized. LVEF is 45-50%. Right Ventricle Right ventricle is grossly normal in size. Right ventricular systolic function is grossly normal. Atria Left atrium is mildly dilated. Right atrium is mildly dilated. The interatrial septum is intact with no evidence for an atrial septal defect. Aortic Valve The Aortic valve is mildly sclerotic. Aortic valve is trileaflet. There is no aortic valvular stenosi s. Mild aortic regurgitation. Mitral Valve The mitral valve is normal in structure. No evidence of mitral valve stenosis. Moderate mitral regurg itation. Tricuspid Valve The tricuspid valve is normal in structure. There is no tricuspid valve stenosis. Mild tricuspid regu rgitation. Pulmonic Valve The pulmonary valve is normal in structure. There is no pulmonic valvular stenosis. Mild pulmonic reg urgitation. Great Vessels The aortic root is normal in size. The ascending aorta is mildly dilated.3.9 cm Aortic arch is normal in caliber. The IVC was not well visualized. Pericardium There is no pericardial effusion. 2D Dimensions IVSD d PLAX 1.19 cm M: 0.6-1.2 LV Vol A2C d MOD 134.7 mL LVPW d PLAX 1.13 cm M: 0.6 - 1.2 LV Vol A4C d MOD 137.1 mL LVID d PLAX 4.50 cm M: 4.2 - 5.8 LA vol/ BSA A2C s A-L 52.3 mL/m2 LVDs 3.50 cm M: 2.5 - 4.0 LA vol/ BSA A4C s A-L 44.7 mL/m2 Ao Root d 3.48 cm M: 3.1 - 3.7 LA Vol/ BSA Biplane s A-L 48.4 mL/m2 RA Area A4C 17.94 cm2 LA Area A4C s MOD 26.48 cm2 RA Vol/ BSA A4C s A-L 21.9 mL/m2 LA Area A2C s MOD 28.61 cm2 Ao Asc Diam d 3.90 cm M: 2.6 - 3.4 LV EF A4C MOD 45.3 % LV EF Teichholz 44.8 % LV EF A2C MOD 40.0 % LVEF (Roman's) 43.47 % M: 52 - 72 LV EF Biplane MOD 43.5 % LV Volume 104.75 mL M: 62 - 150 SV 61.82 mL LV Volume Index 49.64 mL/m2 M: 34 - 74 SV Index 29.25 mL/m2 LV Vol Biplane MOD 142.2 mL FS 22.10 % M-Mode TAPSE 2.10 cm (M/F) >1.7 LV Diastology MV E' medial 0.053 (>0.07 m/s) MV E Vmax 0.92 (0.4-1.3 m/s) LV E/e MED 17.35 (<14) MV E' lateral 0.062 (>0.1 m/s) LV E/e LAT 14.80 (<14) MV E/E' medial 17.35 MV E/E' lateral 14.84 Aortic Valve LVOT Area 3.48 cm2 AoV Area Vmax 2.44 cm2 LVOT Vmax 0.84 m/s AoV Area/ BSA (Vmax) 1.15 cm2/m2 LVOT Mean Rusty. 0.55 m/s DAQUAN Mean Rusty. 2.21 cm2 LVOT Peak Grad 2.8 mmHg DAQUAN Mean Rusty. Index 1.05 cm2/m2 LVOT Mean Grad 1.4 mmHg AR DT 1725 msec LVOT VTI 0.182 m AR PHT 500 msec LVOT Diam s 2.10 cm AoV Vmax 1.20 m/s Velocity Ratio 0.70 AoV Mean Rusty. 0.86 m/s AoV Peak Grad 5.8 mmHg LVOT SV 63.50 mL AoV Mean Grad 3.3 mmHg AoV VTI 0.246 m AoV Area VTI 2.58 cm2 AoV Area/ BSA (VTI) 1.22 cm/m2 Mitral Valve MV DT 240 (160-240 msec) MR PISA Radius 0.58 cm MV PHT 69 msec MR Aliasing Velocity 0.35 m/s MV Area PHT 3.17 cm2 MR PISA 2.08 cm2 MV VTI 1.136 m MV VTI Annulus 0.316 m MV Area VTI 0.32 (4.0-6.0 cm2) Pulmonary Valve PV Vmax 0.84 (0.5-1.5 m/s) RVOT Peak Gr. 1.13 mmHg PV Peak Grad 2.9 mmHg RVOT Mean Gr. 0.50 mmHg PV Mean Grad 1.3 mmHg RVOT VTI 0.120 m PV VTI 0.173 m RVOT Vmax 0.53 m/s Tricuspid Valve TR Peak Grad 41.0 mmHg TR Vmax 3.20 m/s
--- NOTE | 2022-07-08 15:54 | PGE_ITS ---
Date of Service Date of service: 07/08/22 Time of Service: 15:54 Assessment and Plan Assessment and plan (1) CHF (congestive heart failure): Start date: 07/06/22 Status: Acute Assessment and plan: BNP 63225. Diuresed with IV lasix in the ED. Continued with Lasix 40mg IV BID. Not routinely on a diuretic. Improved ease of breathing. Now back on RA. (2) Non-ST elevation DC (NSTEMI): Start date: 07/06/22 Status: Acute Assessment and plan: Elevated troponins but appear to be flat; 5th drop down to 876 from peak of 1005. Patient is not having chest pain. If worsening acutely consider IV heparin and re-discussion of possible transfer for cardiac [place] [facility] He is a full code. He is initiated on metoprolol already been on an ARB and continuation of his as pirin and high-dose Lipitor. Echocardiogram. Normal left ventricular wall thickness and chamber size.? Estimated ejection fraction is 45 to 50%, mildly reduced systolic function.? There are no segmental wall motion abnormalities. Moderate mitral regurgitation. (3) Hyponatremia: Status: Chronic Assessment and plan: Free water restriction to 1.5 L a day and trend labs. Improved from 124 to 128 but today lower at 125. Monitor. (4) Anemia: Status: Chronic Assessment and plan: Presenting Hgb of 9.8. Repeat the AM after admission was 8.8, and now 8.6. No evidence of GI loss. Likely d/t CKD Monitor. (5) History of total left knee replacement: Status: Acute Assessment and plan: L knee replacement 3 weeks ago. Initially, certainly, there was a concern for a pulmonary embolism. CTA chest neg. for P.E. Will make ortho aware of his admission. (6) CAD (coronary artery disease): Assessment and plan: Previously with 2 stents placed appx 4 years ago. Cont aspirin and high dose lipitor. No CP. (7) Cardiomyopathy: Assessment and plan: No recent echocardiogram in records. Myocardial perfusion scan Nuc Med in 05/2021 was negative for ischemia. Echocardiogram as above. (8) CKD (chronic kidney disease): Assessment and plan: Baseline creatinine in the 1.5 - 1.8 range according to lab in [facility] medical record. Presenting creatinine this admission was 1.9; now 1.7. Monitor. (9) Discharge planning issues: Status: Acute Assessment and plan: Full code. If echocardiogram is reassuring, likely home tomorrow. (10) Contusion of leg, right: Status: Acute Assessment and plan: Medial thigh contusion. He slipped when lifting from toilet and struck the thigh on the side of the toilet seat. He is denying pain with ambulation. PT consult. Subjective Subjective Patient reports: no new complaints, tolerating a regular diet and afebrile; denies still having pain, nausea, vomiting or shortness of breath Interval history since last seen: Feels unsteady with ambulation; no dizziness, vertigo. Exam Narrative Exam Narrative: General: Lying in bed. Conversant. NAD HEENT: Sclera clear. MMM. Neck: Supple without JVD. Lungs: Bronchovesicular breath sounds. Clear. Nonlabored breathing. Heart: Regular rate and rhythm with systolic murmur left sternal border. Abdomen: soft and nontender. Extremities:No pitting edema with nonpitting edema left lower extremity status post left TKA with well-healed surgical scar over patella area. RLE with ecchymoses of inner thigh and swelling of thigh and knee. No warmth/redness. Neuro: No focal motor deficits. + facial symmetry. Psych: Normal affect and mood. Objective Last Vital Signs Temp 36.5 C 07/08/22 15:40 Pulse 55 L 07/08/22 15:40 Resp 19 07/08/22 15:40 BP 137/79 07/08/22 15:40 Pulse Ox 98 07/08/22 15:40 Laboratory Results - last 24 hr 07/08/22 07/08/22 06:00 06:00 WBC 9.55 RBC 3.29 L Hgb 8.6 L Hct 27.3 L MCV 83 MCH 26.1 L MCHC 31.5 L RDW 16.7 H Plt Count 211 MPV 10.2 Immature Gran % 0.5 Neutrophils % 64.1 Lymphocytes % 20.0 Monocytes % 11.1 Eosinophils % 3.6 Basophils % 0.7 Nucleated RBC % 0.0 Absolute Neutrophils 6.12 Absolute Lymphocytes 1.91 Absolute Monocytes 1.06 H Absolute Eosinophils 0.34 Absolute Basophils 0.07 Sodium 125 L Potassium 3.8 Chloride 91 L Carbon Dioxide 28.1 Anion Gap 5.9 BUN 25 H Creatinine 1.7 H Est GFR (CKD-EPI 2020) 39.75 Glucose 96 Calcium 7.9 L
--- NOTE | 2022-07-08 16:34 | PT.INTREAT ---
PT Notes Visit Reasons: CHF, Elevated Troponins Date: 07/08/2022 PRECAUTIONS: Fall. Standard.? Activity as tolerated as per Dr. Boyd. SUBJECTIVE: Pt in bed when approached for therapy this afternoon, pt reports right knee pain, with swelling and hematoma on the medial aspect of thigh and knee.npt agreed to participating with therapy. OBJECTIVE: ? PAIN: Right medial thigh and knee area. ? BED MOBILITY/TRANSFERS? half sittingto EOB mod A? Sit-stand: Mod A? Stand-sit: Mod A chair-bed: Mod A ? GAIT? Assistive Device: FWW ? Weight bearing: WBAT Assist: CGA/min A ? Distance: 15'x 2 Deviation: slow steady gait, SOB after 15', refused further standing activity after gait training. ASSESSMENT:? Continues to be limited and short of breath with mobility performance.? Will need to continue with energy conservation,? activity pacing,? and low intensity activity performance with intermittent rests. PLAN: Continue with functional mobility progression as tolerated.? Emphasize energy conservation techniques,? breathing techniques,? and adequate rests to improve activity tolerance. TREATMENT CODE/TIME:? 60016 x 23 minutes beginning at 4:10 pm
[2022-07-08] MEDS: Atorvastatin 40 MG TAB 80 MG PO (19:16)
[2022-07-08] MEDS: Enoxaparin 40 MG/0.4 ML SYR SC (22:21)
[2022-07-08] MEDS: AZITHROMYCIN 500 MG in Normal Saline 250 ML 250 MG IVPB (22:21)
[2022-07-08] MEDS: Temazepam 15 MG CAP PO (22:32)
[2022-07-09] VITALS (10 sets, daily range): BP systolic 120–146; BP diastolic 68–84; PULSE 51–64; RESP 16–20; TEMP 35.4–36.9; O2SAT 95–100
[2022-07-09] MEDS: Metoprolol 25 MG TAB PO ×2 (02:21→20:27)
[2022-07-09] MEDS: guaiFENesin/D-METHORPHAN HB 5 ML CUP 10 ML PO ×3 (02:21→22:53)
[2022-07-09] MEDS: buPROPion-CR 150 MG TABCR PO ×2 (06:49→20:27)
[2022-07-09 07:17] LABS: HCT 27.9 % (40.0-50.0); HGB 8.9 g/dL (13.5-17.5)
[2022-07-09 07:33] LABS: Anion Gap 6.4 mmol/L (3-11); BUN 29 mg/dL (7-18); CO2 26.6 mmol/L (21.0-32.0); CREATININE 1.8 mg/dL (0.70-1.30); Calcium 7.7 mg/dL (8.5-10.1); Chloride 89 mmol/L (98-107); Estimated GFR 37.12 (mL/min/1.73m2); Glucose 96 mg/dL (74-106); Potassium 3.7 mmol/L (3.5-5.1)
[2022-07-09 07:38] LABS: Sodium 122 mmol/L (136-145)
[2022-07-09] MEDS: Mometasone 220 MCG 14 DOSE INHALER 1 PUFF IH ×2 (07:40→20:27)
[2022-07-09] MEDS: Normal Saline Flush 10 ML SYR IVP ×2 (08:38→09:10)
[2022-07-09] MEDS: Valsartan 80 MG TAB 320 MG PO (08:39)
[2022-07-09] MEDS: Celecoxib 200 MG CAP PO ×2 (08:39→20:29)
[2022-07-09] MEDS: Benzonatate 200 MG CAP PO ×3 (08:39→20:27)
[2022-07-09] MEDS: Loratidine 10 MG TAB PO (08:39)
[2022-07-09] MEDS: Aspirin E.C. 81 MG TABEC PO ×2 (08:39→20:27)
[2022-07-09] MEDS: Cholecalciferol (Vitamin D3) 1,000 UNIT TAB 1000 UNITS PO (08:40)
[2022-07-09] MEDS: Pantoprazole 40 MG TABCR PO (08:40)
[2022-07-09] MEDS: Multivitamin TAB 1 TAB PO (08:40)
[2022-07-09] MEDS: Furosemide 40 MG/4 ML VIAL IVP (09:10)
[2022-07-09] MEDS: Fluticasone NASAL SPRAY 16 GM BTL NS ×2 (09:10→20:27)
[2022-07-09 14:14] LABS: Iron 42 ug/dL (65-175); Total Iron Binding Capacity 318 ug/dL (250-450); Transferrin Sat 13 % (20-55)
--- NOTE | 2022-07-09 15:09 | PTTR_ITS ---
Date of service: 07/09/22 Time of Service: 11:25 PT Notes Visit Reasons: CHF, Elevated Troponins Inpatient Physical Therapy Treatment Note [facility] Date: 07/10/2022 PRECAUTIONS: Fall, activity as tolerated, WBAT L SUBJECTIVE: Erwin is pleasant and agreeable to participating in PT. He reports that he is feeling weak today. OBJECTIVE: PAIN: Patient c/o L knee pain with [id number] transfer BED MOBILITY/TRANSFERS Sit-stand: Min A-Mod A Stand-sit: CGA GAIT Assistive Device: FWW Weight bearing: WBAT L Assist: Mod A-CGA Distance: 15' + 10' Deviation: Leans posteriorly, shaky, weakness in B knee THEREX: Patient was instructed in a LE strengthening program completed in a seated position, to include: ankle pumps, LAQ, hip abduction and hip flexion in a.m.; patient was instructed in a several LE strengthening exercises, completed in a standing position in p.m., to include: mini squats and modified hip flexion. He was also instructed in functional [id number] x6 as well as static standing to fatigue. He does not tolerate much in p.m. due to fatigue and global weakness. ASSESSMENT: Patient demonstrates global weakness, limiting his ability to participate in gait training. He demonstrates shakiness and fatigues quickly wi th all activity. PLAN: Continue with global strengthening and gait training for improved mobility and activity tolerance. TREATMENT CODE/TIME: Session 1: 35 minutes; 22077, 84454 (11:25) Session 2: 35 minutes; 66716 x2 (14:25)
--- NOTE | 2022-07-09 15:33 | PGE_ITS ---
Date of Service Date of service: 07/09/22 Time of Service: 15:33 Assessment and Plan Assessment and plan (1) CHF (congestive heart failure): Start date: 07/06/22 Status: Acute Assessment and plan: BNP 18259. Diuresed with IV lasix in the ED. Continued with Lasix 40mg IV BID but changing to daily starting tomorrow. Not routinely on a diuretic. Improved ease of breathing. Now back on RA. (2) Non-ST elevation DE (NSTEMI): Start date: 07/06/22 Status: Acute Assessment and plan: Elevated troponins but appear to be flat; 5th drop down to 876 from peak of 1005. Patient is not having chest pain. If worsening acutely consider IV heparin and re-discussion of possible transfer for cardiac catheterization with [facility] [place]. He is a full code. He is initiated on metoprolol already been on an ARB and continuation of his aspirin and high-dose Lipitor. Echocardiogram. Normal left ventricular wall thickness and chamber size.? Estimated ejection fraction is 45 to 50%, mildly reduced systolic function.? There are no segmental wall motion abnormalities. Moderate mitral regurgitation. (3) Hyponatremia: Status: Chronic Assessment and plan: Worsened; Na 122. This is likely why he is experiencing weakness. water restriction to 1.2 L a day and trend labs. Monitor. (4) Anemia: Status: Chronic Assessment and plan: Presenting Hgb of 9.8. Trend: 9.8>8.8>8.5>8.9 No evidence of GI loss. Likely d/t CKD Monitor. (5) History of total left knee replacement: Status: Acute Assessment and plan: L knee replacement 3 weeks ago. Initially, certainly, there was a concern for a pulmonary embolism. CTA chest neg. for P.E. Will make ortho aware of his admission. Knee isn't source of any ambulatory dysfunction currently. (6) CAD (coronary artery disease): Assessment and plan: Previously with 2 stents placed appx 4 years ago. Cont aspirin and high dose lipitor. No CP. (7) Cardiomyopathy: Assessment and plan: No recent echocardiogram in records. Myocardial perfusion scan Nuc Med in 05/2021 was negative for ischemia. Echocardiogram as above. (8) CKD (chronic kidney disease): Assessment and plan: Baseline creatinine in the 1.5 - 1.8 range according to lab in [facility] medical record. Presenting creatinine this admission was 1.9; decreased to 1.7. Now 1.8. Monitor. (9) Discharge planning issues: Status: Acute Assessment and plan: Full code. If echocardiogram is reassuring, likely home tomorrow. (10) Contusion of leg, right: Status: Acute Assessment and plan: Medial thigh contusion. He slipped when lifting from toilet and struck the thigh on the side of the toilet seat. He is denying pain with ambulation. PT consult. Subjective Subjective Patient reports: tolerating a regular diet, shortness of breath and afebrile; denies nausea or vomiting Interval history since last seen: Generalized weakness. Gait was tenuous when walking with PT. Exam Narrative Exam Narrative: General: Sitting in chair. Conversant. NAD HEENT: Sclera clear. MMM. Neck: Supple without JVD. Lungs: Bronchovesicular breath sounds. Clear. Nonlabored breathing. Heart: Regular rate and rhythm with systolic murmur left sternal border. Abdomen: soft and nontender. Extremities:No pitting edema with nonpitting edema left lower extremity status post left TKA with well-healed surgical scar over patella area. RLE with ecchymoses of inner thigh and swelling of thigh and knee. No warmth/redness. Neuro: No focal motor deficits. + facial symmetry. Psych: Normal affect and mood. Objective Last Vital Signs Temp 36.3 C L 07/09/22 15:26 Pulse 54 L 07/09/22 15:26 Resp 17 07/09/22 15:26 BP 134/72 07/09/22 15:26 Pulse Ox 96 07/09/22 15:26 Laboratory Results - last 24 hr 07/09/22 07/09/22 07/09/22 06:45 06:45 06:45 Hgb 8.9 L Hct 27.9 L Sodium 122 L* Potassium 3.7 Chloride 89 L Carbon Dioxide 26.6 Anion Gap 6.4 BUN 29 H Creatinine 1.8 H Est GFR (CKD-EPI 2020) 37.12 Glucose 96 Calcium 7.7 L Iron 42 L TIBC 318 Transferrin % Sat 13 L
--- NOTE | 2022-07-09 16:00 | PDOC.CMPRO ---
- If Service Date Differs Date of service: 07/09/22 Time of Service: 16:00 Care Management Progress Note S/O: Erwin was sitting up in his chair when CM met with him. He stated that he was waiting for PT to meet with him today. He reported that he was hoping to return home today. Per report, he remains on IV lasix, and is having improved ease of breathing. He is currently on room air, and is tolerating a regular diet. Per PT, PT service is recommended upon discharge. CM will continue to follow. A: 81 year old male admitted on 07/06/22 for CHF, Elevated Troponin P: Erwin requires close cardiac monitoring and treatment. He recently fell at home and injured his right leg, PT consult is ordered. Dr. Boyd is reviewing this case with [facility] and may consider transfer if his condition worsens. Pt will need follow up appts with his PCP (Karo Otero), Cardiology (Dr. Coleman) and Ortho (Dr. Anthony). Erwin has outpatient PT through [facility]. CM will continue to follow and evaluate for further needs.
[2022-07-09] MEDS: Atorvastatin 40 MG TAB 80 MG PO (20:27)
[2022-07-09] MEDS: Temazepam 15 MG CAP PO (22:35)
[2022-07-09] MEDS: Enoxaparin 40 MG/0.4 ML SYR SC (22:35)
[2022-07-09] MEDS: AZITHROMYCIN 500 MG in Normal Saline 250 ML 250 MG IVPB (22:54)
[2022-07-10] VITALS: PULSE 60
[2022-07-10 02:48] VITALS: BP 144/74; PULSE 60; RESP 19; TEMP 36.1; O2SAT 94
[2022-07-10 06:50] LABS: Anion Gap 5.6 mmol/L (3-11); BUN 29 mg/dL (7-18); CO2 27.4 mmol/L (21.0-32.0); CREATININE 1.7 mg/dL (0.70-1.30); Calcium 7.9 mg/dL (8.5-10.1); Chloride 90 mmol/L (98-107); Estimated GFR 39.75 (mL/min/1.73m2); Glucose 87 mg/dL (74-106); Potassium 3.9 mmol/L (3.5-5.1)
[2022-07-10 06:53] LABS: Sodium 123 mmol/L (136-145)
[2022-07-10 07:00] VITALS: PULSE 60
[2022-07-10 07:59] VITALS: BP 137/72; PULSE 62; RESP 19; TEMP 36.2; O2SAT 93
[2022-07-10] MEDS: Mometasone 220 MCG 14 DOSE INHALER 1 PUFF IH (08:37)
[2022-07-10] MEDS: Cholecalciferol (Vitamin D3) 1,000 UNIT TAB 1000 UNITS PO (09:19)
[2022-07-10] MEDS: Aspirin E.C. 81 MG TABEC PO (09:19)
[2022-07-10] MEDS: Pantoprazole 40 MG TABCR PO (09:19)
[2022-07-10] MEDS: Benzonatate 200 MG CAP PO ×2 (09:19→14:39)
[2022-07-10] MEDS: buPROPion-CR 150 MG TABCR PO (09:20)
[2022-07-10] MEDS: Multivitamin TAB 1 TAB PO (09:20)
[2022-07-10] MEDS: Loratidine 10 MG TAB PO (09:20)
[2022-07-10] MEDS: Celecoxib 200 MG CAP PO (09:20)
[2022-07-10] MEDS: Valsartan 80 MG TAB 320 MG PO (09:20)
[2022-07-10] MEDS: Furosemide 40 MG/4 ML VIAL IVP (09:26)
[2022-07-10] MEDS: Normal Saline Flush 10 ML SYR IVP (09:27)
--- NOTE | 2022-07-10 09:32 | PDOC.CMPRO ---
- If Service Date Differs Date of service: 07/10/22 Time of Service: 09:32 Care Management Progress Note S/O: Per PT, PT service is recommended upon discharge. CM will continue to follow. A: 81 year old male admitted on 07/06/22 for CHF, Elevated Troponin P: Erwin requires close cardiac monitoring and treatment. He recently fell at home and injured his right leg, PT consult is ordered. Dr. Boyd is reviewing this case with [facility] and may consider transfer if his condition worsens. Pt will need follow up appts with his PCP (Karo Otero), Cardiology (Dr. Coleman) and Ortho (Dr. Anthony). Erwin has outpatient PT through [facility]. CM will continue to follow and evaluate for further needs.
[2022-07-10] MEDS: IRON SUCROSE COMPLEX 300 MG in Normal Saline 250 ML 167 MG IVPB (09:38)
[2022-07-10] MEDS: Fluticasone NASAL SPRAY 16 GM BTL NS (09:43)
[2022-07-10 11:21] VITALS: BP 128/72; PULSE 54; RESP 18; TEMP 36.1; O2SAT 96
--- NOTE | 2022-07-10 13:54 | W.PM.DS.N ---
Date of service: 07/10/22 Time of Service: 13:54 DS: Diagnosis Discharge Diagnosis (1) CHF (congestive heart failure): Status: Acute (2) Non-ST elevation NH (NSTEMI): Status: Acute (3) Hyponatremia: Status: Chronic (4) Anemia: Status: Chronic (5) History of total left knee replacement: Status: Acute (6) CAD (coronary artery disease): (7) Cardiomyopathy: (8) CKD (chronic kidney disease): (9) Discharge planning issues: Status: Acute (10) Contusion of leg, right: Status: Acute Discharge Plan Disposition Patient Disposition: Home W/Home Health Services Condition: Improving Discharge Details Reason For Visit: CHF, Elevated Troponins Admit Date/Time: 07/06/22 20:53 Admit Provider: Sumeet Villasenor Attending Provider: Sumeet Villasenor Primary Care Provider: Karo Otero Hospital Course Hospital Course: This is an 81-year-old male patient who has a significant history of CAD with non-STEMI and stenting in 2018 also with CKD and chronic anemia as well as cardiomyopathy, carotid artery stenosis, chronic hyponatremia, hyperlipidemia and hypertension uncontrolled who presents with dyspnea upon exertion earlier in the week status post left total knee 3 weeks prior to this presentation.? In the ED he was evaluated for his shortness of breath with some hypoxemia with patient not chronically on oxygen at home.? His CTA of the chest did not reveal pulmonary embolus the patient may have had CHF exacerbation clinically with bronchitis.? There were no pleural effusions or infiltrates.? Patient was initiated on treatment for bronchitis but also O2 supplementation and IV Lasix for diuresis.? He continued to have cough which was not productive but he felt less short of breath.? His dyspnea was only with exertion.? He denies any chest pain or increased peripheral edema.? His troponins were up in the thousands but stable and cardiology at [facility] did not suggest heparin infusion or cardiac catheterization thinking that this most likely was secondary elevation of troponins from his respiratory distress but if changed consider non-STEMI type I with heparinization and reevaluation for transfer and cardiac catheterization.? His troponin peaked at 1005 and then trended to 876. His shortness of breath improved, as did his cough, with diureses. He worked with PT and was initially generally weak while ambulating. This improved but would still benefit from further PT with home health. His Na Level was 124 on admission. It did improve to 128 but then back to 123. He wasn't noted to have any apparent / significant confusion and his c/o weakness improved; he did not require assistance with ambulation while using a roller walker on the day of discharge. He was placed on a 1200ml fluid restriction and will continue on lasix 20mg po daily. His hgb was initially 9.8 (11.9 on 02/02/22). No melena/hematochezia noted. Hgb stabilized in the upper 8 range (8.9 on day of discharge). He was given a 300mg dose of Venafor. PCP follow up in 1 week. Lab requisitions given for lab draw on Thursday 07/12. Home Meds and New Rx's Prescriptions: New metoprolol succinate 25 mg tablet extended release 24 hr 25 mg PO HS Qty: 30 0RF furosemide 20 mg tablet 20 mg PO DAILY Qty: 10 0RF Continued temazepam [Restoril] 15 mg capsule 15 mg PO QHS valsartan 40 mg tablet 320 mg PO DAILY bupropion HCl 150 MG tablet extended release 12 hr 150 mg PO BID multivitamin 1 EACH capsule 1 tab PO DAILY fluticasone propionate 50 mcg/actuation Blister With Device 1 inh INHALATION BID Label Comments: pt. states he uses flonase atorvastatin 80 mg Tablet 80 mg PO .Q PM loratadine 10 mg Capsule 10 mg PO DAILY nitroglycerin 0.4 MG tablet, sublingual 1 tab PO PRN PRN Label Comments: pt using when doing something strenous cholecalciferol (vitamin D3) [Vitamin D3] 25 mcg (1,000 unit) Tablet 25 mcg PO DAILY fluticasone propionate 50 mcg/actuation Miracle,Suspension 1 spray INTRANASAL BID Rx Instructions: administer into each nostril testosterone 100 mg/mL Suspension 2 mg IM Q14D Label Comments: pt gets every other week. Pt. unsure of the brand celecoxib 200 mg capsule 200 mg PO BID Qty: 60 3RF aspirin 81 mg tablet,delayed release (DR/EC) 81 mg PO BID Qty: 60 0RF acetaminophen 500 mg tablet 1,000 mg PO TID Qty: 90 3RF pantoprazole 40 mg tablet,delayed release (DR/EC) 40 mg PO DAILY Qty: 30 0RF Discharge Instructions Instructions: Hyponatremia (DC) Additional Instructions: Restrict flids to 1200 ml daily. Lab on Friday. Stand Alone Forms: Nursing Discharge Form Referrals: Karo Otero [Primary Care Provider] - Activity:: Activity as Tolerated Equipment/Supplies:: No Equipment Needed Diet:: Resume usual home diet Discharge Orders Discharge Orders: Discharge Order (Routine); Ordered 07/10/22 Ordered By: Petey Boyd Other Ambulatory Orders: Basic Metabolic Panel (Routine) Timeframe: 20220712 Location: None Selected Ordered By: Petey Boyd Complete Blood Count w/Diff (Routine) Timeframe: 20220712 Location: None Selected Ordered By: Petey Boyd DS: Summary Time Spent with Patient providing and/or coordinating discharge services: Greater than 30 minutes Status at Discharge Functional status at discharge: uses cane/walker Overall status at discharge: patient is progressing back to baseline Mental Status: mental status grossly normal Speech and Movement: speech clear Mood: congruent mood Affect: normal affect Exam Narrative Exam Narrative: General: Sitting in chair. Conversant. NAD HEENT: Sclera clear. MMM. Neck: Supple without JVD. Lungs: Bronchovesicular breath sounds. Clear. Nonlabored breathing. Heart: Regular rate and rhythm with systolic murmur left sternal border. Abdomen: soft and nontender. Extremities:No pitting edema with nonpitting edema left lower extremity status post left TKA with well-healed surgical scar over patella area. RLE with ecchymoses of inner thigh and swelling of thigh and knee. No warmth/redness. Neuro: No focal motor deficits. + facial symmetry. Gait somewhat shuffling. Standby assist only with use of roller walker. Psych: Normal affect and mood. Psych Mental Status: mental status grossly normal Speech and Movement: speech clear Mood: congruent mood Affect: normal affect DS: Data Vitals/I&O Vitals and I&O: Vital Signs Temperature 36.1 C L 07/10/22 11:21 Temperature Source Tympanic 07/10/22 11:21 Pulse 54 L 07/10/22 11:21 Pulse Rhythm Regular 07/10/22 09:45 Pulse 56 L 07/07/22 11:00 Respiratory Rate 18 07/10/22 11:21 Respiratory Effort 07/10/22 09:45 Respiratory Depth Normal 07/10/22 09:45 Respiratory Pattern Normal 07/10/22 09:45 Blood Pressure 128/72 11/23/22 11:21 Blood Pressure Mean 84 07/07/22 10:01 Blood Pressure Position Supine 07/06/22 21:55 Pulse Oximetry 96 07/10/22 11:21 Oxygen Delivery Method Room Air 07/10/22 11:21 Oxygen Flow Rate 0 07/10/22 11:21 Pain Level 0 07/10/22 11:21 Comment 07/06/22 17:32 Intake & Output 07/09/22 07/10/22 07/10/22 23:59 11:59 23:59 Intake Total 590 / 1060 300 / 300 Output Total 300 / 525 725 / 1025 300 / 1025 Balance 290 / 535 -425 / -725 -300 / -725 Weight 90.6 kg Intake: IV 250 / 500 Oral 340 / 560 300 / 300 Output: Urine 300 / 525 725 / 1025 300 / 1025 Other: Urine Color Yellow Straw Straw Urine Appearance Clear Clear Clear Urine Odor Normal Normal Normal Stool Size Moderate Stool Characteristics Soft Formed Voiding Methods Urinal Urinal Toilet Data Completed and Pending Labs on day of discharge: Labs from last 24 hours 07/10/22 07/09/22 06:25 06:45 Sodium 123 L* Potassium 3.9 Chloride 90 L Carbon Dioxide 27.4 Anion Gap 5.6 BUN 29 H Creatinine 1.7 H Est GFR (CKD-EPI 2020) 39.75 Glucose 87 Calcium 7.9 L Iron 42 L TIBC 318 Transferrin % Sat 13 L PFSH All Active Problems Contusion of leg, right (Acute) Discharge planning issues (Acute) Anemia (Chronic) CHF (congestive heart failure) (Acute) Non-ST elevation NH (NSTEMI) (Acute) Hyponatremia (Chronic) History of total left knee replacement (Acute 06/12/22) Bigeminal rhythm (Acute) Depression (Chronic) DVT prophylaxis (Acute) Advance directive discussed with patient (Acute) De Quervain's tenosynovitis, left (Acute) Steroid injection: 06/26/2020, 02/21/2021 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 (Acute) Laceration of left index finger (Acute) Fracture of distal phalanx of left index finger (Acute) De Quervain's tenosynovitis, right (Acute) Injection: 06/13/2021; 01/24/2021 Pes planus of left foot (Acute) Biceps tendinitis of left upper extremity (Acute) Bursitis of shoulder, left (Acute) Medical History Bilateral carotid artery stenosis CAD (coronary artery disease) Cardiomyopathy CKD (chronic kidney disease) 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 Heart palpitations None recently (05/28/22) History of non-ST elevation myocardial infarction (NSTEMI) November 2017 HLD (hyperlipidemia) HTN (hypertension) with goal to be determined Hx of sinusitis Hyperpiesia Hypertension Surgical History History of heart artery stent History of revision of total replacement of right knee joint Right TKA - [place] (2003) Two-stage revision for infection -[place] (2008) Hx of cataract surgery Hx of rhinoplasty S/P ORIF (open reduction internal fixation) fracture Right distal femur fracture Status post laparoscopic cholecystectomy (~01/2022) Status post left foot surgery (09/17/21) [facility] Social History Smoking/Tobacco Use Status: Former Tobacco Use Quit Date: 08/18/91 Smoking risk assessment performed?: Yes Alcohol Intake: former Substance use type: does not use Do you feel safe at home: Yes Do you feel safe in your relationship?: Yes Additional Social history: unable to assess
--- NOTE | 2022-07-10 14:23 | PDOC.HHF2F_ITS ---
Home Health Certification Home Health Certification: 1. Encounter Date and Reason I certify that Tra Brothers III was seen by Petey Boyd MD on 07/10/22 and that I had a fons-am-bril encounter with this patient that meets the physician face to face encounter requirements. 2. Clinical Findings Supporting Skilled Need and Homebound Status I certify that home health services are medically necessary, include either intermittent shelter and/or physical/speech therapy, and that this patient is homebound in that absences from the home require considerable and taxing effort and are infrequent or of short duration, or are attributable to the need to receive medical care. [X] (a) Attached documentation from encounter provides clinical findings supporting skilled need and homebound status (including what assistance patient requires to leave the home). The encounter with the patient was in whole, or in part, for the following medical condition, which is the primary reason for home health care: CHF, Elevated Troponins Assisted: Physical Therapy:to restore the patient's ability to ambulate independently and safely. Speech Therapy: Homebound: Unable to leave home without assistance and ambulation is severely limited due to decreased strength and endurance. 3. Certification and Authentication I certify that I composed the above information based on my clinical judgement relating to this patient's medical condition and, if applicable, clinical findings communicated to me by the NPP or inpatient physician who performed the Home Health Referral. All further orders will be obtained through Karo Otero (Community Based Physician - PCP)
[2022-07-10 14:28] VITALS: PULSE 65
--- NOTE | 2022-07-10 14:55 | CMDISCH_ITS ---
- If Service Date Differs Date of service: 07/10/22 Time of Service: 14:55 LACE Index Scoring Tool - Questions: Length of Stay (in days): 4 - 6 Acuity (Admit via E.D.?): Yes Comorbidities: Liver or Renal Disease E.D. Visits: 3 - Answers: Total Score: 15 Risk of Readmission: High Risk Care Management Discharge Reason for Hospitalization: CHF, Elevated Troponin Discharge Plan: Tra Hood is discharged home via private vehicle with . Pt will follow up with community providers and discharge plan of care as prescribed. New RX's are transmitted to [facility]. New [facility] PT is ordered. Erwin has an appointment with Dr. Coleman 07/16/22, Dr. Anthony 07/25/22 @ [id number] Myles 07/25/22 @ [id number]. as scheduled. Patient/Family Education Needs: Review discharge instructions, limitations, medications and plan to follow up with community providers. Discuss ask me three and goals of self care. Services Needed at Discharge: Home Health Care Services ([facility] PT, face to face complete, CM laceyied Jorge )
--- NOTE | 2022-07-10 15:08 | PT.INTREAT ---
Date of service: 07/10/22 Time of Service: 10:14 PT Notes Visit Reasons: CHF, Elevated Troponins Inpatient Physical Therapy Treatment Note [facility] Date: 07/10/2022 PRECAUTIONS: Fall, activity as tolerated, WBAT L SUBJECTIVE: Erwin is pleasant and agreeable to participating in PT. He reports that he is feeling better today and that he slept better last night. Maikol'y , Marina, is present during p.m. PT session. Both her and Erwin agree that he is at a functional level that they feel they can manage at home if he is discharged today. They both agree that Erwin would benefit from HH PT and OT for the time being. OBJECTIVE: PAIN: Patient c/o L knee pain with [id number] transfer and of R medial thigh pain BED MOBILITY/TRANSFERS Sit-supine: I with HOB flat Sit-stand: CGA Stand-sit: CGA GAIT Assistive Device: FWW Weight bearing: WBAT L Assist: CGA Distance: 40' x2 in a.m.; 30' x2 in p.m. Deviation: Improved balance and posture, decreased weakness in B knee, less SOB THEREX: Patient was instructed in a LE strengthening program, to include: ankle pumps, quad sets, glute sets, heel slides, LAQ, hip abduction and hip flexion. ASSESSMENT: Patient continues to demonstrate global weakness, however, he was able to tolerate a progression in gait distance with FWW support and CGA. He demonstrates improved balance and posture with gait training. PLAN: Patient to discharge to home later today, per provider. Recommend follow up with HH PT/OT upon discharge to home. TREATMENT CODE/TIME: Session 1: 26 minutes; [id number], [id number] (10:14) Session 2: 34 minutes; [id number], [id number] (12:48)
--- NOTE | 2022-07-10 18:20 | PT.INDS ---
Date of service: 07/10/22 PT Notes Visit Reasons: CHF, Elevated Troponins Physical Therapy Inpatient Discharge Summary Date: 07/10/2022 Dates of service: 07/08/2022 through 07/10/2022 This is a clinical summary of care provided for the duration of dates listed above. No charge was made in the completion of this documentation. Referring Doctor: Petey Boyd MD PT Orders: PT CONSULT: Eval/Treat Precautions: Fall. Standard.? Will await orthopedic consult for weight bearing precautions on the R LE. Patient Profile/Admitting Diagnosis: Tra in an 81-year-old male patient who is S/P L TKA in 06/12/2022 who presented to the ED on 07/06/2022 with shortness of breath.? He fell last week and has R LE hematoma with diagnoses of congestive heart failure, NSTEMI,? hyponatremia,? and anemia. PMHX: All Active Problems?(Updated 07/07/22 @ 07:38 by Sumeet Villasenor) Anemia (Chronic) CHF (congestive heart failure) (Acute) Non-ST elevation TN (NSTEMI) (Acute) Hyponatremia (Chronic) History of total left knee replacement (Acute 06/12/22) Bigeminal rhythm (Acute) Depression (Chronic) DVT prophylaxis (Acute) Advance directive discussed with patient (Acute) De Quervain's tenosynovitis, left (Acute) Steroid injection: 06/26/2020, 02/21/2021 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 (Acute) Laceration of left index finger (Acute) Fracture of distal phalanx of left index finger (Acute) De Quervain's tenosynovitis, right (Acute) Injection: 06/13/2021; 1Pes planus of left foot (Acute) Biceps tendinitis of left upper extremity (Acute) Bursitis of shoulder, left (Acute) Medical History?(Updated 07/07/22 @ 07:38 by Sumeet Villasenor) Bilateral carotid artery stenosis CAD (coronary artery disease) Cardiomyopathy CKD (chronic kidney disease) 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 Heart palpitations None recently (05/28/22) History of non-ST elevation myocardial infarction (NSTEMI) November 2017HLD (hyperlipidemia) HTN (hypertension) with goal to be determined Hx of sinusitis Hyperpiesia Hypertension Surgical History?(Updated 06/27/22 @ 10:36 by Audrey Bear RN) History of heart artery stent History of revision of total replacement of right knee joint Right TKA - [place] (2003) Two-stage revision for infection -[place] (2008) Hx of cataract surgery Hx of rhinoplasty S/P ORIF (open reduction internal fixation) fracture Right distal femur fracture Status post laparoscopic cholecystectomy (~01/2022) Status post left foot surgery (09/17/21) [facility] Social History/Home Situation: Lives with in a private home with 3 steps to enter with rails on B sides.? He has another flight of steps to second floor where their bedroom is.? Equipment Owned/DME: NANCY, Subjective: Verbalized that he fell last Friday trying to get up from the toilet seat and became short of breath later in the afternoon.? Reports 4/10 pain in the R knee with weight bearing.? Short of breath with just standing.? Appears anxious about standing up that increased his shortness of breath.? Objective: General Observation: Seated on chair.? Hematoma on posterior R leg and thigh.? Swelling in R LE. Mental Status: A and O x4 Vital signs:? WNL as closely monitored via telemetry Pain: 4/10 in the R knee with weigt bearing ROM: Right Lower Extremity: Hip flexion WFL. Hip abduction WFL. Knee flexion WFL. Ankle dorsiflexion to neutral only. Ankle plantarflexion WFL. Left Lower Extremity: Hip flexion WFL. Hip abduction WFL. Knee flexion 20 degrees to 100 degrees.? Knee extension -20 degrees.? Ankle dorsiflexion WFL. Ankle plantarflexion WFL. Strength: Right Lower Extremity: Hip flexors 4/5. Hip abductors 4/5. Knee flexors 4/5. Knee extensors 4-/5. Ankle dorsiflexors 3-/5. Ankle plantarflexors 4-/5. Left Lower Extremity:Hip flexors 4/5. Hip abductors 4/5. Knee flexors 3-/5. Knee extensors 3-/5. Ankle dorsiflexors 5/5. Ankle plantarflexors 4-/5. Sensation: Intact as to pain and light pressure in bilateral lower extremities BED MOBILITY/TRANSFERS? Sit-supine: I with HOB flat Sit-stand: CGA ? Stand-sit: CGA ? GAIT? Assistive Device: FWW ? Weight bearing: WBAT L Assist: CGA ? Distance:? 40' x2 in a.m.; 30' x2 in p.m. Deviation: Improved balance and posture, decreased weakness in B knee, less SOB Balance: Static Sitting: Normal Dynamic Sitting: Normal Static Standing: Fair Dynamic Standing: Fair Assessment: Patient presents with clinical signs and symptoms consistent with current/admitting diagnoses that have resulted to mobility limitations, gait instability, generalized weakness, and overall ADL decline as demonstrated by the following impairment level findings: 1.? Decreased strength to B LE major muscle groups 2.? Impaired standing balance 3.? Impaired activity tolerance 4.? Limitation of joint range of motion in B knees (from previous TKA) 5.? Shortness of breath 6.? Swelling in R LE 7.? Anxiety Impairments are contributing to the following functional limitations: 1.? Decline in bed mobility skills 2.? Decline in transfer skills 3.? Difficulty with ambulation without assistive device and physical assistance 4.? Increased completion time for mobility ADL performance 5.? Increased risk for falls 6.? Difficulty with managing steps alone safely Goals: Goals X1 week 1. Supine-Sit independent MET 2. Sit-Supine independent MET 3. Sit-Stand independent with FWW NOT MET 4. Stand-Sit independent with FWW NOT MET 5. Bed-Chair independent with FWW NOT MET 6. Chair-Bed independent with FWW NOT MET 7. Independent gait on level surface with use of FWW for at least 300 feet without report of pain nor dyspnea NOT MET 8. Independent stair negotiation while holding onto bilateral rails for at least 10 steps without report of pain nor dyspnea NOT MET 9. Independent with home exercise program NOT MET 10. Good static and dynamic standing balance/tolerance NOT MET DISCHARGE RECOMMENDATIONS: [] ? Home with no services [] [X] ? Home with services.? Patient will benefit from home health PT services in order to progress mobility level using least restrictive assistive ambulatory device, assess home safety, identify additional equipment needs, and establish a functional maintenance program that will increase ability of patient to remain at home. [] ? Home with outpatient PT [] [] ? SNF for continued rehabilitation [] [] ? [facility] Care [] [] ? SNF versus LTC based on ability to participate and progress [] TREATMENT CODE/TIME: [place] Thank you for the opportunity to participate in the care of this patient. Flory Whyte PT, DPT, CLT [facility] [place], [place]
[2022-10-05 08:50] LABS: Lab Add On Test DONE
== END 2022-07-10 15:27 | disposition home health service (06) | DRG 281 ==
LOC: ER 21:08 → ICU 21:39 → MS 07-07 11:36
PROVIDERS: Family Medicine; Admitting Provider Family Medicine; Emergency Provider Registered Nurse Emergency; PCP Family Medicine; Visit Provider Family Medicine
DX: I21.4 Non-ST elevation (NSTEMI) myocardial infarction (principal); E87.1 Hypo-osmolality and hyponatremia; I13.0 Hypertensive heart and chronic kidney disease with heart failure and stage 1 through stage 4 chronic kidney disease, or unspecified chronic kidney disease; I42.9 Cardiomyopathy, unspecified; I50.9 Heart failure, unspecified; N18.9 Chronic kidney disease, unspecified; D63.1 Anemia in chronic kidney disease; I25.10 Atherosclerotic heart disease of native coronary artery without angina pectoris; Z95.5 Presence of coronary angioplasty implant and graft; E78.5 Hyperlipidemia, unspecified; I25.2 Old myocardial infarction; R09.02 Hypoxemia; F32.A Depression, unspecified; I65.23 Occlusion and stenosis of bilateral carotid arteries; Z96.653 Presence of artificial knee joint, bilateral; S70.11XA Contusion of right thigh, initial encounter; W22.09XA Striking against other stationary object, initial encounter; Y92.231 Patient bathroom in hospital as the place of occurrence of the external cause
CPT/HCPCS: 36415; 71275; 80048; 80053; 85027; 87637; 93005; 93306; 94640; 96361; 96374; 97110; 97162; 97530; 99285; J1650; 81003; 83540; 83550; 83735; 83880; 84484; 85014; 85018; 85025; 85610; 85730; 93010; 99223; 99232; 99233; 99239; J0456; J1756; J1940; J3490

== ENCOUNTER 2022-07-16 04:07 | Outpatient (CLI) | payer MEDICARE, SELFPAY ==
[2022-07-16 13:26] LABS: Abs Immature Grans 0.11 10^3/uL (0.0-0.06); Absolute Basophil Count 0.08 10^3/uL (0.0-0.2); Absolute Eosinophil Count 0.14 10^3/uL (0.0-0.7); Absolute Lymphocyte Count 1.91 10^3/uL (1.2-3.4); Absolute Monocyte Count 0.76 10^3/uL (0.1-0.8); Absolute Neutrophil Count 5.61 10^3/uL (1.2-6.7); Basophils % 0.9; Eosinophils % 1.6; HCT 31.8 % (40.0-50.0); HGB 9.8 g/dL (13.5-17.5); Immature Grans % 1.3; Lymphocytes % 22.2; MCH 27.6 pg (27.0-33.0); MCHC 30.8 % (32.0-36.0); MCV 90 fL (80-95); MPV 8.7 fL (8.0-11.0); Monocytes % 8.8; Neutrophils % 65.2; Platelet Count 252 10^3/uL (130-400); RBC 3.55 10^6/uL (4.36-5.78); RDW 19.9 % (11.8-14.1); RDW-SD 61.3 fL; WBC 8.61 10^3/uL (4.4-10.8)
[2022-07-16 13:46] LABS: Anion Gap 7.3 mmol/L (3-11); BUN 22 mg/dL (7-18); CO2 24.7 mmol/L (21.0-32.0); CREATININE 1.9 mg/dL (0.70-1.30); Calcium 8.5 mg/dL (8.5-10.1); Chloride 95 mmol/L (98-107); Estimated GFR 34.79 (mL/min/1.73m2); Glucose 101 mg/dL (74-106); Potassium 4.8 mmol/L (3.5-5.1); Sodium 127 mmol/L (136-145)
== END 2022-07-16 04:08 | disposition home or self-care (01) ==
LOC: LBO 04:07
PROVIDERS: PCP Family Medicine; Visit Provider Family Medicine
DX: D64.9 Anemia, unspecified (principal); E87.1 Hypo-osmolality and hyponatremia
CPT/HCPCS: 36415; 80048; 85025

== ENCOUNTER 2022-07-25 15:28 | Outpatient (CLI) | payer MEDICARE, SELFPAY ==
--- NOTE | 2022-07-25 11:00 | DI.RAD_ITS ---
Exam(s) XR KNEE RT 2V AP,LAT EXAM: XR KNEE RT 2V AP,LAT CLINICAL HISTORY: right knee pain. TECHNIQUE: 2D digital imaging was performed. Three images were obtained. AP and lateral views were obtained. COMPARISON: CR XR STANDING ALIGNMENT from 06/27/2022 FINDINGS: BONES: There are stable post operative changes present. No fracture or dislocation. JOINTS: The orthopedic hardware is in good position. No evidence of hardware loosening. SOFT TISSUE: Normal. IMPRESSION: Stable postoperative changes. DATA REPOSITORY: RADIATION DOSE DELIVERED:
== END 2022-07-25 15:29 | disposition home or self-care (01) ==
LOC: DIORS 15:28
PROVIDERS: PCP Family Medicine; Referring Provider Family Medicine; Visit Provider Physician Assistant
DX: Z47.1 Aftercare following joint replacement surgery (principal); Z96.652 Presence of left artificial knee joint; X58.XXXA Exposure to other specified factors, initial encounter; S80.11XA Contusion of right lower leg, initial encounter
CPT/HCPCS: 73560

== ENCOUNTER 2022-07-25 16:57 | Outpatient (REF) | payer MEDICARE, SELFPAY ==
[2022-07-25 20:47] LABS: HCT 25.8 % (40.0-50.0); MCH 29.4 pg (27.0-33.0); MCHC 30.6 % (32.0-36.0); MCV 96 fL (80-95); MPV 9.8 fL (8.0-11.0); Platelet Count 206 10^3/uL (130-400); RBC 2.69 10^6/uL (4.36-5.78); RDW-SD 77.1 fL; WBC 9.41 10^3/uL (4.4-10.8)
[2022-07-25 21:05] LABS: HGB 7.9 g/dL (13.5-17.5)
[2022-07-25 21:11] LABS: ALT 25 U/L (16-63); AST 35 U/L (15-37); Albumin 3.1 g/dL (3.4-5.0); Alkaline Phosphatase 100 U/L (46-116); Anion Gap 10.2 mmol/L (3-11); BUN 28 mg/dL (7-18); Bilirubin, Total 2.1 mg/dL (0.2-1.0); CO2 21.8 mmol/L (21.0-32.0); CREATININE 1.8 mg/dL (0.70-1.30); Calcium 8.1 mg/dL (8.5-10.1); Chloride 94 mmol/L (98-107); Estimated GFR 37.12 (mL/min/1.73m2); Glucose 90 mg/dL (74-106); NT-proBNP 7822 pg/mL (<300); Potassium 5.3 mmol/L (3.5-5.1); Sodium 126 mmol/L (136-145)
== END 2022-07-25 16:58 | disposition home or self-care (01) ==
LOC: NCHCN 16:57
PROVIDERS: PCP Family Medicine; Visit Provider Family Medicine
DX: I10 Essential (primary) hypertension (principal); D64.9 Anemia, unspecified; I25.5 Ischemic cardiomyopathy; I50.9 Heart failure, unspecified
CPT/HCPCS: 80053; 85027; 83880

== ENCOUNTER 2022-08-01 16:47 | Outpatient (REF) | payer MEDICARE, SELFPAY ==
[2022-08-01 14:31] LABS: Anion Gap 8.8 mmol/L (3-11); BUN 26 mg/dL (7-18); CO2 24.2 mmol/L (21.0-32.0); CREATININE 1.9 mg/dL (0.70-1.30); Calcium 8.5 mg/dL (8.5-10.1); Chloride 97 mmol/L (98-107); Estimated GFR 34.79 (mL/min/1.73m2); Glucose 90 mg/dL (74-106); Sodium 130 mmol/L (136-145)
[2022-08-01 14:33] LABS: Bilirubin Negative (Negative); Blood Negative (Negative); Clarity Clear (Clear); Glucose Negative (Negative); Ketones Negative (Negative); Leukocyte Esterase Trace (Negative); Nitrite Negative (Negative); Specific Gravity 1.025 (1.005-1.025); Urobilinogen 0.2 EU/dL (Up TO 0.2); pH 6.5 (5-8)
[2022-08-01 14:38] LABS: Bacteria Rare HPF (Negative); C & S Indicated? No/Sq. Contamination; Casts Negative LPF (Negative); Crystals Negative HPF (Negative); Epithelial Cells Many HPF (Negative); Mucus Negative (Negative); RBC 0-2 HPF (0-2)
== END 2022-08-01 16:48 | disposition home or self-care (01) ==
LOC: NCHCN 16:47
PROVIDERS: PCP Family Medicine; Visit Provider Family Medicine
DX: N18.9 Chronic kidney disease, unspecified (principal); D64.9 Anemia, unspecified; I10 Essential (primary) hypertension
CPT/HCPCS: 80048; 81003; 81015

== ENCOUNTER 2022-08-08 13:20 | Outpatient (REF) | payer MEDICARE, SELFPAY ==
[2022-08-08 14:44] LABS: HCT 36.4 % (40.0-50.0); HGB 10.9 g/dL (13.5-17.5); MCH 29.9 pg (27.0-33.0); MCHC 29.9 % (32.0-36.0); MCV 100 fL (80-95); MPV 9.5 fL (8.0-11.0); Platelet Count 195 10^3/uL (130-400); RBC 3.65 10^6/uL (4.36-5.78); RDW 20.5 % (11.8-14.1); WBC 5.22 10^3/uL (4.4-10.8)
[2022-08-08 15:20] LABS: BUN 28 mg/dL (7-18); CREATININE 1.9 mg/dL (0.70-1.30); Calcium 8.7 mg/dL (8.5-10.1); Chloride 104 mmol/L (98-107); Estimated GFR 34.79 (mL/min/1.73m2); Ferritin 195 ng/mL (26-388); Glucose 76 mg/dL (74-106); Potassium 4.6 mmol/L (3.5-5.1); Sodium 140 mmol/L (136-145)
== END 2022-08-08 13:21 | disposition home or self-care (01) ==
LOC: NCHCN 13:20
PROVIDERS: PCP Family Medicine; Visit Provider Family Medicine
DX: D64.9 Anemia, unspecified (principal); I10 Essential (primary) hypertension; I25.10 Atherosclerotic heart disease of native coronary artery without angina pectoris
CPT/HCPCS: 80048; 85027; 82728

== ENCOUNTER → 2022-09-05 10:31 | Outpatient (BNVA) | payer MEDICARE, SELFPAY | PROVIDERS: PCP Family Medicine; Referring Provider Family Medicine; Visit Provider Student in an Organized Health Care Education/Training Program | DX: Z47.1 Aftercare following joint replacement surgery (principal); Z96.652 Presence of left artificial knee joint; S76.112A Strain of left quadriceps muscle, fascia and tendon, initial encounter; W19.XXXA Unspecified fall, initial encounter; M75.102 Unspecified rotator cuff tear or rupture of left shoulder, not specified as traumatic | CPT/HCPCS: 20610; J1040 ==

== ENCOUNTER 2022-09-10 07:28 | Day surgery (SDC) | payer MEDICARE, SELFPAY ==
[2022-09-10] VITALS (13 sets, daily range): BP systolic 103–149; BP diastolic 76–106; PULSE 74–93; RESP 14–24; TEMP 36.3–36.6; O2SAT 89–99; BMI 25.9
--- NOTE | 2022-09-10 07:25 | DSE_ITS ---
Date of service: 09/10/22 Time of Service: 13:41 DS: Diagnosis Discharge Diagnosis (1) Rupture of left quadriceps muscle: Status: Acute Discharge Plan Disposition Patient Disposition: Home Condition: Good Discharge Details Reason For Visit: Left quadriceps rupture of left TKA Attending Provider: Chang Anthony Primary Care Provider: Karo Otero Home Meds and New Rx's Prescriptions: New acetaminophen 500 mg tablet 1,000 mg PO Q8H PRN Qty: 90 0RF Rx Instructions: Take two tablets up to every 8 hours as needed for pain aspirin 81 mg tablet,delayed release (DR/EC) 81 mg PO BID 30 Days Qty: 60 0RF celecoxib [Celebrex] 200 mg capsule 200 mg PO BID PRNQty: 60 0RF Rx Instructions: Take one tablet twice daily for pain and inflammation docusate sodium [Colace] 100 mg capsule 100 mg PO BID Qty: 30 0RF gabapentin 300 mg capsule 300 mg PO QHS Qty: 14 0RF Rx Instructions: Take one tablet at bedtime oxycodone 5 mg tablet 5 mg PO Q4H PRN (Reason: severe post-operative pain) Qty: 18 0RF Rx Instructions: Take one tablet up to every 4 hours as needed for severe pain pantoprazole 40 mg tablet,delayed release (DR/EC) 40 mg PO DAILY 14 Days Qty: 14 0RF Continued temazepam [Restoril] 15 mg capsule 15 mg PO QHS valsartan 40 mg tablet 320 mg PO DAILY hydroxyzine HCl 10 mg tablet 10 mg PO BID PRN bupropion HCl 150 MG tablet extended release 12 hr 150 mg PO BID multivitamin 1 EACH capsule 1 tab PO DAILY atorvastatin 80 mg Tablet 80 mg PO .Q PM loratadine 10 mg Capsule 10 mg PO DAILY nitroglycerin 0.4 MG tablet, sublingual 1 tab PO PRN PRN Label Comments: pt using when doing something strenous cholecalciferol (vitamin D3) [Vitamin D3] 25 mcg (1,000 unit) Tablet 25 mcg PO DAILY fluticasone propionate 50 mcg/actuation Roland,Suspension 1 spray INTRANASAL BID Rx Instructions: administer into each nostril testosterone 100 mg/mL Suspension 2 mg IM Q14D Label Comments: pt gets every other week. Pt. unsure of the brand metoprolol succinate 25 mg tablet extended release 24 hr 25 mg PO HS Qty: 30 0RF Discontinued celecoxib 200 mg capsule 200 mg PO BID Qty: 60 3RF acetaminophen 500 mg tablet 1,000 mg PO TID Qty: 90 3RF Discharge Instructions Additional Instructions: Quadriceps Repair Discharge Instructions Activity: The most important activity is to walk and maintain the knee in extension while walking. You should have the brace on for all ambulation in a locked position. While resting you may unlock your brace and gently flex the knee. When resting, you may also unbuckle the brace. For hygiene purposes you may remove brace but avoid flexing to 90 degrees. You should try to take short walks a few times a day. It is important that when resting you work on keeping the knee straight. - Start outpatient physical therapy within 2 weeks. - You should wear the ELADIA hose on both legs for 2 weeks. You may remove these at night. You may also use any compression sock in place of the ELADIA hose. Dressing: Remove the Rodríguez wrap by 2 days after your surgery and put on the ELADIA stocking given to you from the hospital. Keep the surgical dressing (underneath the RODRÍGUEZ wrap) in place for at least one week. After the first week it may be removed and replaced with light gauze and tape or nothing. The wound and dressing may get wet after 3 days but avoid soaking the dressing or otherwise it will need to be changed. Many people prefer covering the dressing with cling wrap (saran wrap) to minimize it from getting soaked. If it gets wet, just pat dry. If it starts to peel off then it will need to be changed. Keep brace locked in extension for all ambulation. Medications: - You should take Tylenol and anti-inflammatory Celebrex as your primary pain control medications. If the Celebrex is too expensive or not covered, please call the office for another alternative (Advil/Ibuprofen or Naproxen/Aleve) - You have been prescribed a stronger pain medication Oxycodone for breakthrough pain, take as needed as prescribed. - You have also been prescribed a stomach acid reduction agent Pantoprozole to help reduce stomach acid and reflux. - You have been prescribed Gabapentin to take at night for restlessness and nerve pain. - You will be taking Aspirin 81mg twice a day for DVT prevention unless instructed otherwise. - If you have constipation you should take Colace (which has been prescribed) or Miralax (which is available [id number]). It takes most people 3-4 days to have a bowel movement. Follow-up: 2 weeks If you have any acute concerns or questions, please do not hesitate to contact the office at [phone]. You may contact Dr. Anthony with any questions after hours through the hospital at [phone] or on his cell phone at [phone]. Equipment/Supplies: Brace and Walker Activity:: Elevate Remove Dressings/Wound Care:: Do Not Remove Shower/Bathe:: Cover Diet:: As Tolerated Discharge Orders Discharge Orders: Discharge Order (Routine); Ordered 09/10/22 Ordered By: Chang Anthony DS: Summary Time Spent with Patient providing and/or coordinating discharge services: Less than 30 minutes Status at Discharge Functional status at discharge: uses cane/walker Overall status at discharge: patient is progressing back to baseline Mental Status: mental status grossly normal Speech and Movement: speech and movement normal Mood: congruent mood Affect: normal affect Exam Psych Mental Status: mental status grossly normal Speech and Movement: speech and movement normal Mood: congruent mood Affect: normal affect [facility] All Active Problems Bipolar II disorder (Acute) Sleep apnea (Acute) Rupture of left quadriceps muscle (Acute) History of total left knee replacement (TKR) (Acute 06/12/22) Contusion of leg, right (Acute) Anemia (Chronic) CHF (congestive heart failure) (Acute) Hyponatremia (Chronic) Bigeminal rhythm (Acute) Depression (Chronic) DVT prophylaxis (Acute) Advance directive discussed with patient (Acute) De Quervain's tenosynovitis, left (Acute) Steroid injection: 06/26/2020, 02/21/2021 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 (Acute) Laceration of left index finger (Acute) Fracture of distal phalanx of left index finger (Acute) De Quervain's tenosynovitis, right (Acute) Injection: 06/13/2021; 01/24/2021 Pes planus of left foot (Acute) Biceps tendinitis of left upper extremity (Acute) Bursitis of shoulder, left (Acute) Medical History Bilateral carotid artery stenosis CAD (coronary artery disease) Cardiomyopathy CKD (chronic kidney disease) 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 Heart palpitations None recently (05/28/22) History of non-ST elevation myocardial infarction (NSTEMI) November 2017 HLD (hyperlipidemia) HTN (hypertension) with goal to be determined Hx of sinusitis Hyperpiesia Hypertension Surgical History History of heart artery stent History of revision of total replacement of right knee joint Right TKA - [place] (2003) Two-stage revision for infection -[place] (2008) Hx of cataract surgery Hx of rhinoplasty S/P ORIF (open reduction internal fixation) fracture Right distal femur fracture Status post laparoscopic cholecystectomy (~01/2022) Status post left foot surgery (09/17/21) [facility] Social History Smoking/Tobacco Use Status: Former Tobacco Use Quit Date: 08/18/91 Smoking risk assessment performed?: Yes Alcohol Intake: former Substance use type: does not use Do you feel safe at home: Yes Do you feel safe in your relationship?: Yes Additional Social history: unable to assess Time Spent with Patient Time Spent with Patient: <45 minutes Time was spent: preparing to see the patient(eg.review tests), ordering medications,tests, procedures and counseling the patient
[2022-09-10] MEDS: Acetaminophen 500 MG TAB 1000 MG PO (08:06)
[2022-09-10] MEDS: Gabapentin 300 MG CAP PO (08:06)
[2022-09-10] MEDS: Celecoxib 200 MG CAP 400 MG PO (08:06)
[2022-09-10] MEDS: Lactated Ringers 1,000 ML 80 ML IV (08:30)
--- NOTE | 2022-09-10 08:49 | ANES.PREOP_ITS ---
General Info Date of Service Date Performed: 09/10/22 Height: 5 ft 11 in Weight: 84.4 kg Body Mass Index (BMI): 25.9 Surgical Procedure: Operation Date: 09/10/22 09:40 Proposed Procedure Side Surgeon p Knee Quad Repair Left Chang Anthony MD Pre-Op Diagnosis Post-Op Diagnosis RUPUTURED LEFT QUAD TENDON Meds Allergies and Home Medications Allergies Allergy/AdvReac Type Severity Reaction Status Date / Time terazosin Allergy Severe Unknown Verified 09/10/22 07:40 oxycodone AdvReac Intermediate Nausea Verified 09/10/22 07:40 pollen AdvReac Intermediate sneezing, Uncoded 09/10/22 07:40 congestion Home Medication Medication Instructions Recorded bupropion HCl 150 mg tablet,12 hr 150 mg PO BID 11/18/17 sustained-release multivitamin 1 tab PO DAILY 11/18/17 nitroglycerin 0.4 mg sublingual 1 tab PO PRN PRN 01/07/18 tablet atorvastatin 80 mg tablet 80 mg PO .Q PM 05/31/19 loratadine 10 mg capsule 10 mg PO DAILY 05/03/21 temazepam 15 mg capsule (Restoril) 15 mg PO QHS 05/25/21 cholecalciferol (vitamin D3) 25 25 mcg PO DAILY 08/07/21 mcg (1,000 unit) tablet (Vitamin D3) valsartan 40 mg tablet 320 mg PO DAILY 05/28/22 fluticasone propionate 50 1 spray intranasal BID 06/12/22 mcg/actuation nasal spray,suspension testosterone 100 mg/mL 2 mg IM Q14D 06/12/22 intramuscular suspension metoprolol succinate 25 mg 25 mg PO HS #30 tabs 07/10/22 tablet,extended release 24 hr hydroxyzine HCl 10 mg tablet 10 mg PO BID PRN 09/05/22 acetaminophen 500 mg tablet 1,000 mg PO Q8H PRN pain #90 tabs 09/10/22 aspirin 81 mg tablet,delayed 81 mg PO BID 30 days #60 tabs 09/10/22 release celecoxib 200 mg capsule (Celebrex) 200 mg PO BID PRN #60 caps 09/10/22 docusate sodium 100 mg capsule 100 mg PO BID #30 caps 09/10/22 (Colace) gabapentin 300 mg capsule 300 mg PO QHS #14 caps 09/10/22 oxycodone 5 mg tablet 5 mg PO Q4H PRN severe 09/10/22 post-operative pain #18 tabs Current Visit Medications: Current Medications Generic Name Dose Route Start Last Admin Trade Name Freq PRN Reason Stop Dose Admin Acetaminophen 1,000 mg 09/10/22 06:00 09/10/22 08:06 Acetaminophen 500 Mg Tab PO 09/10/22 16:00 500 mg PREOP MARY Administration Acetaminophen 1,000 mg 09/10/22 14:00 Acetaminophen 500 Mg Tab PO TID MARY Aspirin 81 mg 09/11/22 08:30 Aspirin E.C. 81 Mg Tabec PO BID MARY Celecoxib 400 mg 09/10/22 06:00 09/10/22 08:06 Celecoxib 200 Mg Cap PO 09/10/22 16:00 200 mg PREOP MARY Administration Celecoxib 200 mg 09/10/22 20:00 Celecoxib 200 Mg Cap PO BID MARY Docusate Sodium 100 mg 09/10/22 07:20 Docusate Sodium 100 Mg Cap PO BID PRN PRN Constipation Gabapentin 300 mg 09/10/22 06:00 09/10/22 08:06 Gabapentin 300 Mg Cap PO 09/10/22 16:00 300 mg PREOP MARY Administration Gabapentin 300 mg 09/10/22 22:00 Gabapentin 300 Mg Cap PO HS MARY Hydromorphone HCl 0.5 mg 09/10/22 07:20 Hydromorphone 2 Mg/Ml Syr IVP Q2H PRN PRN Ringer's Solution 1,000 mls @ 80 mls/hr 09/10/22 06:00 09/10/22 08:30 IV 10/09/22 23:59 80 mls/hr INFUSION MARY Administration Cefazolin Sodium/Dextrose 2 gm in 50 mls @ 100 mls/hr 09/10/22 06:00 Ancef Duplex IVPB 09/10/22 16:00 PREOP MARY Cefazolin Sodium/Dextrose 1 gm in 50 mls @ 100 mls/hr 09/10/22 08:00 Ancef Duplex IVPB 09/11/22 00:29 Q8H MARY IV Miscellaneous Supplies 1 each 09/10/22 06:00 Iv Access IV 10/09/22 23:59 DIRECTED MARY Oxycodone HCl 0 mg 09/10/22 07:20 Oxycodone 5 Mg Tab PO Q3H PRN PRN Pain Pantoprazole Sodium 40 mg 09/11/22 07:30 Pantoprazole 40 Mg Tabcr PO DAILY@0730 MARY Polyethylene Glycol 17 gm 09/10/22 07:20 Polyethylene Glycol 3350 17 Gm Packet PO BID PRN PRN Constipation Sodium Chloride 0 ml 09/10/22 06:00 Normal Saline Flush 10 Ml Syr IV 10/09/22 23:59 PRN PRN Sodium Chloride 0 ml 09/10/22 06:00 Normal Saline 10 Ml Vial IJ 10/09/22 23:59 DIRECTED PRN Sterile Water 0 ml 09/10/22 06:00 Water,Injection,Sterile 10 Ml Vial IJ 10/09/22 23:59 DIRECTED PRN PFSH Active Problems Active Problems: Problem Status Onset Code Rupture of left quadriceps muscle S76.112A History of total left knee replacement (TKR) 06/12/22 Z96.652 Contusion of leg, right S80.11XA Anemia D64.9 CHF (congestive heart failure) I50.9 Hyponatremia E87.1 Bigeminal rhythm I49.9 Depression F32.9 DVT prophylaxis Z29.9 Advance directive discussed with patient Z71.89 De Quervain's tenosynovitis, left M65.4 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.12 Laceration of left index finger S61.211A Fracture of distal phalanx of left index finger S62.631A De Quervain's tenosynovitis, right M65.4 Pes planus of left foot M21.42 Biceps tendinitis of left upper extremity M75.22 Bursitis of shoulder, left M75.52 Medical History Medical History Bilateral carotid artery stenosis CAD (coronary artery disease) Cardiomyopathy CKD (chronic kidney disease) 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 Surgical History Surgical History History of heart artery stent History of revision of total replacement of right knee joint Right TKA - [place] (2003) Two-stage revision for infection -[place] (2008) Hx of cataract surgery Hx of rhinoplasty S/P ORIF (open reduction internal fixation) fracture Right distal femur fracture Status post laparoscopic cholecystectomy (~01/2022) Status post left foot surgery (09/17/21) [facility] Tobacco Smoking/Tobacco Use Status: Former Tobacco Use Alcohol Alcohol Intake: former Substance Use Substance use type: does not use Vital Signs and Lab Results Vital Signs Most Recent Vital Signs in EMR: Most Recent Vital Signs Temp Pulse Resp BP Pulse Ox 36.5 C 78 18 143/87 H 97 09/10/22 07:35 09/10/22 07:35 09/10/22 07:35 09/10/22 07:35 09/10/22 07:35 Lab Results Blood Type / Crossmatch: No Data to Display Complete Blood Count: No Data to Display Complete Metabolic Panel: No Data to Display Liver Function Panel: No Data to Display Coagulation Panel: No Data to Display Cardiac Panel: No Data to Display Arterial Blood Gas: 2 No Data to Display Venous Blood Gas: No Data to Display Pancreas Panel: No Data to Display Thyroid Panel: No Data to Display Infectious Disease: No Data to Display Blood Cultures: No Data to Display Toxicology Panel: No Data to Display Imaging and Studies Imaging and Studies Study information below may be from another EMR and interpreted by another provider. Please see original notes in EMR for more complete details. EKG Summary: 02/06 Sinus rhythm...normal P axis, V-rate 60- 99 Borderline prolonged MI interval...MI >212, V-rate 50- 90. Sinus. No STEMI. Stress Test Summary: 06/07 Stress ECG Conclusion 1. The resting electrocardiogram showed sinus rhythm, poor R wave progression unable to exclude old anteroseptal CT 2. Patient underwent pharmacologic stress with regadenoson. Peak heart rate achieved was 55% of maximal for age 3. Electrocardiographically the test was nondiagnostic due to inadequate heart rate Echocardiogram Summary: 06/05 Conclusion Image quality was limited due to frequent PVCs Left Ventricle : The left ventricle is normal size. Mild concentric left ventricular hypertrophy. There is cavity obliteration and pre-PVC beats. There is discrete upper septal wall thickening. Could not determine diastolic function given frequency of PVCs. There is normal LV segmental wall motion. LVEF is 50- 55%. Right Ventricle : The right ventricle is normal size. The right ventricular systolic function is normal. Atria : The left atrium size is normal. The right atrium size is normal. Aortic Valve : Aortic valve is trileaflet. Aortic valve is thickened but has adequate excursion. Mild aortic regurgitation. There is no aortic valvular stenosis. Mitral Valve : The mitral valve is normal in structure. Mild mitral regurgitation. No evidence of mitral valve stenosis. Tricuspid Valve : The tricuspid valve is normal in structure. Trace tricuspid regurgitation. Pulmonic Valve : Trace pulmonic regurgitation. Great Vessels : IVC is not well-visualized There is no prior echocardiogram available for comparison Patient Name: Tra Brothers III #: [id number]: MS Ordering Pr ovider: Petey Boyd M.D. : ADM IN Primary Care Provider: Cathy Otero of Exam: 07/08/22Sex: M Admission Date: 07/06/22 : 1940 Age: 81 APPROVED REPORT EXAM: Comprehensive 2D, Doppler, and color-flow Echocardiogram Patient Location: In-Patient Room/Bed: [facility] Parts Picker: Zuleima Thomas RDCS (AE) Indications: CHF, NSTEMI,CAD Other Information Study Quality: Adequate. Technically limited study due to , body habitus, inability to position patient exam done supine. Conclusion Normal left ventricular wall thickness and chamber size. Estimated ejection fraction is 45 to 50%, mildly reduced systolic function. There are no segmental wall motion abnormalities Normal right ventricular size and systolic function Both atria are mildly dilated Aortic valve is mildly sclerotic and trileaflet with mild regurgitation Normal mitral valve with moderate regurgitation Normal tricuspid valve with mild regurgitation. 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 Anesthesia Assessment and Plan Anesthesia History Personal History: No History of Anesthesia Complications Family History: No Family History of Anesthesia Complications Exercise Tolerance Exercise Tolerance: Metabolic Equivalents>4 Pertinent Negatives Pertinent Negatives: No Symptoms of GERD, No Major Cardiovascular Symptoms or Complaints, No Major Pulmonary Symptoms or Complaints and No History of CVA/TIA Cardiac & Pulmonary Exam Cardiac Exam: Normal S1/S2 Heart Sounds Pulmonary Exam: Clear Bilateral Breath Sounds Implantable Cardiac Device Does patient have a Pacemaker or an ICD?: No Airway Exam Known Difficult Airway: No Mallampati Class: 3 Mouth Opening: Normal (> 3cm) Thyromental Distance: Greater than 3 cm Neck Range of Motion: Full ROM Neck Circumference: Normal Teeth Condition: Normal Dentition (A few missing teeth) ASA Classification ASA Score: ASA 3 Emergency Case?: No NPO Status NPO Status: NPO Clears >2 hours, Solids >8 hours Anesthesia Plan Resuscitation Status: Full Code Anesthesia Technique: Spinal Anesthesia Airway Planned: Natural Airway Pain Management: Other (Rescue Adductor canal block) Monitors Used: Standard Monitors and SedLine
[2022-09-10] MEDS: ceFAZolin 2 GM/50 ML BAG IVPB (09:55)
[2022-09-10] MEDS: Tranexamic Acid 1,000 MG/10 ML VIAL 1000 MG (10:00)
[2022-09-10] MEDS: Normal Saline 100 ML (10:00)
--- NOTE | 2022-09-10 10:45 | RT.EKG_ITS ---
APPROVED REPORT Exam: Resting ECG Reason for Exam: Potential New onset Atrial fibrillation Patient Location: O HR:82 bpm ECG Measurements Heart Rate 82 AXIS ME [id number] P [id number] QRSd 84 QRS -49 QT 418 T 47 QTc 488 Conclusion Atrial fibrillation...? atrial activity Left anterior fascicular block...axis(240,-40), init forces inf LVH with secondary repolarization abnormality...multi-LVH criteria, abnrm ST-T Anterior infarct, old...Q >40mS, abnormal ST-T, V2-V5
[2022-09-10] MEDS: Normal Saline 10 ML VIAL IJ (12:17)
[2022-09-10] MEDS: HYDROmorphone 2 MG/ML SYR IVP ×2 (12:17→12:27)
[2022-09-10] MEDS: oxyCODONE 5 MG TAB PO (13:17)
--- NOTE | 2022-09-10 13:35 | W.ANESPOSTOP ---
Postoperative Evaluation Date, Time and Location Date Performed: 09/10/22 Time Performed: 13:35 Patient Location: Day Surgery Unit Vital Signs Most Recent Imported Vital Signs: Most Recent Vital Signs Temp Pulse Resp BP Pulse Ox 36.3 C L 80 18 145/106 H 97 09/10/22 13:15 09/10/22 13:15 09/10/22 13:15 09/10/22 13:15 09/10/22 13:15 Pain Score Most Recent Pain Score: Most Recent Pain Score Pain Level 4 09/10/22 12:48 Assessment Mental Status: Awake (Alert & Oriented to Patient Baseline) Airway and Respiratory Function: Patent airway with normal (patient baseline) respiratory exam Cardiovascular Function: Other Hydration Status: Adequately Hydrated Nausea & Vomiting: No Nausea or Vomiting Pain: Pain is tolerable per patient Peripheral Nerve Block: Patient did not receive a nerve block Teaching Patient Teaching: Advised to seek followup for the following concerns (See explanation) Concerns: New Onset Atrial Fibrillation (Direct message sent to Dr Otero. Discussed new onset AF at length with patient and spouse. To move up his Drs appt to Friday and followup. )
--- NOTE | 2022-09-10 14:18 | PT.INIE ---
Date of service: 09/10/22 Time of Service: 14:18 PT Notes Visit Reasons: Left quadriceps rupture of left TKA Physical Therapy Day Surgery Initial Evaluation Date: 09/10/2022 Referring Doctor: Chang Anthony MD, MD PT Orders: PT CONSULT: S/P Ortho Surgery. S/P repair of quad and retinaculum. KI locked with ambulation Precautions: Fall. Standard.? WBAT on L LE with knee brace and FWW. Patient Profile/Admitting Diagnosis: Tra in an 81-year-old male patient who is S/P L TKA in 06/12/2022 now with diagnoses of rupture of L quadriceps tendon and Lrotator cuff tear. He is S/P L quadriceps tendon repair on post-operative day 0. PMHX: All Active Problems? 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 History of heart artery stent History of revision of total replacement of right knee joint Right TKA - [place] (2003) Two-stage revision for infection -[place] (2008)Hx of cataract surgery Hx of rhinoplasty S/P ORIF (open reduction internal fixation) fracture Right distal femur fracture Status post laparoscopic cholecystectomy (~01/2022) Status post left foot surgery (09/17/21) [facility] Social History/Home Situation: Lives with in a private home with a ramp to enter.? The living room on the main floor has been set up to be his sleeping area so he does not need to deal with steps. reports that she helped with walking using gait belt, FWW, and wheelchair follow prior to admission. Equipment Owned/DME: FWW, SPC Subjective: Patient and states that janine has fallen about 6x since his L TKA back in May of 2022. Patient does not report pain in the L knee with weight-bearing. Was mildly lightheaded when he sat up at EOB. Patient reports that his personal FWW is wobbly and old and may need to be replaced. Nurse Maria and Amy secured new walker for patient prior to ambulation. Objective: General Observation: Supine in bed with long hinged knee post-op brace under patient's L LE, unfastened. Marina present during evaluation. Mental Status: A and O x4 Vital signs:? WNL as closely monitored via telemetry Pain: No pain during weight bearing ROM: Right Lower Extremity: Hip flexion WFL. Hip abduction WFL. Knee flexion WFL. Ankle dorsiflexion to neutral only. Ankle plantarflexion WFL. Left Lower Extremity: Hip flexion up to 90. Hip abduction WFL. Knee flexion up to 60 actively with braced unlocked for supine to sit.? Knee extension NT.? Ankle dorsiflexion to neutral. Ankle plantarflexion WFL. Strength: Right Lower Extremity: Hip flexors 4/5. Hip abductors 4/5. Knee flexors 4/5. Knee extensors 4-/5. Ankle dorsiflexors 3-/5. Ankle plantarflexors 4-/5. Left Lower Extremity: NT Sensation: Intact as to pain and light pressure in bilateral lower extremities Bed Mobility/Transfers: Sit to stand contact-guard assist with brace locked in full extension Stand to sit contact guard assist Bed to chair standby assist Gait: Instructed patient with safe technique for 40 feet with new FWW with long hinged-knee post-op brace locked in full extension. Contact guard assist provided. Mild lightheadedness reported. No LOB but needed to slow down for turning. Step-to gait pattern. No report of pain in L shoulder. Stairs: Not applicable. Deferred. Balance: Static Sitting: Normal Dynamic Sitting: Good Static Standing: Fair Dynamic Standing: Fair Special Tests: Mobility Limitations Standardized Measure [facility] 6 clicks Basic Mobility Inpatient Short Form: Raw Score: 17? CMS Score: 50% deficit Informed Consent/Education:? Patient instructed in purpose of PT consult.? Demonstrated donning and securing of long hinged knee post-op brace to patient, and Nurses Maria/Amy. Reviewed knee side button that locks and unlocks brace's knee joint. Also covered safe technique to slide L foot forward while seated at edge of bed prior to turning locking mechanism off so that knee is in full extension just prior to standing up/walking. Assessment: L quad tendon repair of L knee TKA requiring long hinged-knee post-op brace and FWW for all mobility ADL performance. Patient presents with clinical signs and symptoms consistent with current/admitting diagnoses that have resulted to mobility limitations, gait instability, generalized weakness, and overall ADL decline as demonstrated by the following impairment level findings: 1.? Decreased strength to L quad 2.? Impaired standing balance 3.? Impaired activity tolerance 4.? Limitation of joint range of motion in L knee per ortho protocol Impairments are contributing to the following functional limitations: 1.? Decline in bed mobility skills 2.? Decline in transfer skills 3.? Difficulty with ambulation without assistive device and physical assistance 4.? Increased completion time for mobility ADL performance 5.? Increased risk for falls 6.? Difficulty with managing steps alone safely Patient is assessed as a 85165 moderate complexity based on the following: History: 81-year-old male with impairment level findings, functional limitations, and past medical history as indicated above Examination: Demonstrable impairment in strength, balance, and mobility level with underlying impairments and functional limitations as documented above Presentation: Evolving Decision Makin moderate complexity Goals: N/A. PT evaluation only and 1 treatment session for functional mobility and DME training. Plan of Care/Treatment Plan: N/A. PT evaluation only and 1 treatment session for functional mobility and DME training. DISCHARGE RECOMMENDATIONS: [] ? Home with no services [] [X] ? Home with services.? Patient will benefit from home health PT services in order to progress mobility level using least restrictive assistive ambulatory device, assess home safety, identify additional equipment needs, and establish a functional maintenance program that will increase ability of patient to remain at home. [] ? Home with outpatient PT [] [] ? SNF for continued rehabilitation [] [] ? Services [facility] [] [] ? SNF versus LTC based on ability to participate and progress [] TREATMENT CODE/TIME: 27695 x 20 minutes beginning at 14:18 PM. Thank you for the opportunity to participate in the care of this patient. Flory Whyte PT, DPT, CLT [facility] [place], [place]
--- NOTE | 2022-09-10 17:09 | ROE_ITS ---
Date of service: 09/10/22 Time of Service: 11:20 Operative Note Operative Note DATE OF PROCEDURE: 09/10/22 PRE-OP DIAGNOSIS: Left Quadriceps and Retinacular Rupture POST-OP DIAGNOSIS: other (Retinacular Tear into the Quadriceps with partial Quadriceps avulsion from patella - LEFT knee) PROCEDURE: Quadriceps and Retinacular Repair - LEFT KNEE SURGEON: Chang Anthony LOADER OPERATOR: Luana Rosenberg ANESTHESIA TYPE: Spinal Refer to Anesthesia Record ESTIMATED BLOOD LOSS: 50 PATHOLOGY: none sent COMPLICATIONS: Other (Atrial fibrillation developed on rhythm strip without any other changes.) Patient was transported to: PACU Patient's condition: stable Indications: Erwin is an 81-year-old who is status post left knee replacement. Unfortunately he has had a few falls. He has been able to ambulate although he is found to be more and more difficult. On his routine visit at the office he was noted to have a disruption of the retinaculum of the left knee with significant weakness with knee extension and a notable lag. Given these findings, I recommend we proceed with operative intervention to repair the torn retinaculum and quadriceps tendon. I discussed the risk of the procedure to include bleeding, infection, pain, stiffness, damage nerves and vessels, damage to muscle and tendons, rerupture, need for repeat procedures, blood clot. Despite these risk, he elected to proceed. Findings: There is a clear defect of the retinaculum from the midportion of the patella up into the quadriceps split. On further investigation there actually was an avulsion of the quadriceps from the patella. Superficial fibers of the quadriceps tendon traversing the superficial patella were intact. I performed a repair of the quadriceps tendon by creating 2 drill holes in the patella and tying sutures from the quadriceps onto the inferior pole the patella. I also repaired the retinaculum with a pants over vest approach using #2 FiberWire. Procedure Description: Erwin was greeted in the preoperative holding area where the correct side was identified and marked. The consent was reviewed with the patient and signed. The history and physical was updated. All questions were answered. Preoperative mediacations were administered: Acetaminophen 1000mg, Celebrex 400mg, and Gabapentin 300mg. Erwin was taken back to the operating room. A spinal anesthestic was administered. The patient was placed into the supine position on the operating room table. Posts were placed for positioning during the procedure. All bony prominences were well padded. Prophylactic antibiotics in the form of Cefazolin were administered. The left leg was then prepped with Chloraprep and draped in a standard fashion with impervious stockinette. A second prep with Chloraprep was performed prior to application of Iodine impregnated skin protection. A timeout to confirm correct identity, side and site, procedure, allergies, anesthesia, and medical concerns was performed. With the knee in some flexion, a midline incision was made overlying the knee utilizing the previous incision. Full thickness skin flaps were raised once the extensor mechanism was encountered. These were raised medially and laterally. There is an obvious defect of the quadriceps repair in the arthrotomy with a escalona of joint fluid. Any bleeding was controlled with electrocautery. Medial and lateral skin flaps were raised to fully evaluate the extensor mecha nism. The defect was quite obvious. It ended about the midportion of patella with maybe some slight diastases at that level but by the inferior portion of the patella there was no defect. The proximal extent went through the quadriceps split and into the vastus lateralis. Using a curette and rongeur a debrided down any of the early scar formation to show tendinous material. Once the tendon was encountered it was able to be easily mobilized back over without significant tension and at 90 degrees of flexion. I then debrided excess synovium from within the knee and the undersurface of the quadriceps mechanism. During this process it was obvious that there is tendon bulk which appeared frayed. It had avulsed off the superior pole of the patella. There is still were intact fibers superficially running across the patella. However, there was a defect against the patella. Therefore, use a rongeur to clear this area of any fibrinous debris. I roughen the superior edge of the patella. My plan was then to repair the quadriceps back to the patella using 2 tunnels inside the patella. The periosteal and capsular tissues were then systematically injected with a periarticular cocktail consisting of ropivacaine, epinephrine, clonidine, and ketorolac, diluted to 50 cc. I then irrigated the knee with surgery for Betadine solution. It sat the knee for 3 minutes and then was irrigated out with saline. I then placed two #2 FiberWire sutures in a locking Krak?w fashion up to the quadriceps tendon which was still attached to the superficial fibers across the patella. Once the sutures were passed they were clamped for later passage. Then using a 2.0 mm drill I placed 2 suture tunnels into the patella superficial to the plastic but deep to the dorsal surface. These were passed and 1 limb of each suture was brought through the tunnels. This was repeated for the second tunnel such that there is a bony and soft tissue bridge to tie-over. With the sutures passed through the tunnels I then tightened these in extension such that the quadriceps was now abruptly adjacent to the patella. These were tied with multiple locking throws the knots were buried. The repair was inspected and this showed that the quadriceps was adjacent to the superior pole the patella from 0 to 90 degrees. I then performed the repair of the retinaculum and into the quadriceps tendon. This was done with a pants over vest type repair using #2 FiberWire. This had excellent reapproximation of the tendon and retinacular material, using excess falx tendon to create a pants over vest repair. This was done with interrupted fashion until there was a watertight closure. The wound was then once again irrigated. The deep tissues were closed with 0 Vicryl followed by 2-0 Monocryl. Skin was closed with a running 3-0 Monocryl, reinforced with skin glue. A Mepilex silver dressing was applied along with a [id number] REJI wrap. A hinged knee immobilizer was then placed limited to 70 degrees of flexion and locked in extension. A CryoCuff was applied. It was noted by the anesthesia team during the case that Erwin seem to go into an atrial fibrillation type rhythm. He had no other findings regards to his vitals or respiratory behaviors. He also remained rate controlled with a rate in the 80s at its highest. A twelve-lead EKG would be performed in the PACU. Nadir was transferred to the hospital stretcher without difficulty an suffering no apparent surgical complication complication except for the persistent atrial fibrillation rhythm. He has had ectopic beats and abnormal rhythms in the past which has been investigated. This will be referred back to his primary care provider with whom he has an appointment next week.. Erwin has a gaurded prognosis. Aspirin 81mg BID will be used for DVT prophylaxis.
== END 2022-09-10 15:35 | disposition home or self-care (01) ==
PROVIDERS: PCP Family Medicine; Visit Provider Student in an Organized Health Care Education/Training Program
PROC: (CPT 27385; principal; 2022-09-10 09:30)
DX: S76.112A Strain of left quadriceps muscle, fascia and tendon, initial encounter (principal); I12.9 Hypertensive chronic kidney disease with stage 1 through stage 4 chronic kidney disease, or unspecified chronic kidney disease; N18.9 Chronic kidney disease, unspecified; I25.10 Atherosclerotic heart disease of native coronary artery without angina pectoris; I42.9 Cardiomyopathy, unspecified; W19.XXXA Unspecified fall, initial encounter; I48.91 Unspecified atrial fibrillation
CPT/HCPCS: 27385; 97162; J0690; J1100; J1170; J2370; J2405; J2704

== ENCOUNTER 2022-09-18 11:03 | Outpatient (REF) | payer MEDICARE, SELFPAY ==
[2022-09-18 14:14] LABS: HCT 47.9 % (40.0-50.0); HGB 15.3 g/dL (13.5-17.5); MCH 29.6 pg (27.0-33.0); MCHC 31.9 % (32.0-36.0); MCV 93 fL (80-95); MPV 10.5 fL (8.0-11.0); Platelet Count 178 10^3/uL (130-400); RBC 5.17 10^6/uL (4.36-5.78); RDW 14.5 % (11.8-14.1); RDW-SD 49.2 fL; WBC 7.78 10^3/uL (4.4-10.8)
[2022-09-18 14:33] LABS: Anion Gap 8.5 mmol/L (3-11); BUN 29 mg/dL (7-18); CO2 28.5 mmol/L (21.0-32.0); CREATININE 1.9 mg/dL (0.70-1.30); Chloride 103 mmol/L (98-107); Estimated GFR 34.79 (mL/min/1.73m2); Glucose 73 mg/dL (74-106); NT-proBNP 4983 pg/mL (<300); Potassium 4.3 mmol/L (3.5-5.1); Sodium 140 mmol/L (136-145)
[2022-09-22 09:35] LABS: Testosterone, Free 39.1 ng/dL (2.88-10.5); Testosterone, Total 988 ng/dL (240-950)
== END 2022-09-18 11:04 | disposition home or self-care (01) ==
LOC: NCHCN 11:03
PROVIDERS: PCP Family Medicine; Visit Provider Family Medicine
DX: I48.91 Unspecified atrial fibrillation (principal); I10 Essential (primary) hypertension; E87.1 Hypo-osmolality and hyponatremia; E29.1 Testicular hypofunction
CPT/HCPCS: 80048; 84402; 84403; 85027; 83880

== ENCOUNTER → 2022-09-23 10:13 | Outpatient (BNVA) | payer MEDICARE, SELFPAY | PROVIDERS: PCP Family Medicine; Referring Provider Family Medicine; Visit Provider Student in an Organized Health Care Education/Training Program | DX: Z47.1 Aftercare following joint replacement surgery (principal); W19.XXXA Unspecified fall, initial encounter; Z96.652 Presence of left artificial knee joint; S76.112A Strain of left quadriceps muscle, fascia and tendon, initial encounter ==

== ENCOUNTER 2022-09-25 16:50 | Observation (INO) | payer MEDICARE, SELFPAY ==
--- NOTE | 2022-09-24 14:32 | ANES.PREOP_ITS ---
General Info Date of Service Date Performed: 09/25/22 Height: 5 ft 11 in Weight: 84.4 kg Body Mass Index (BMI): 25.9 Surgical Procedure: Operation Date: 09/25/22 13:25 Proposed Procedure Side Surgeon p Knee Ruptured Quad Tendon Repair Left Chang Anthony MD Meds Allergies and Home Medications Allergies Allergy/AdvReac Type Severity Reaction Status Date / Time terazosin Allergy Severe Unknown Verified 09/25/22 11:45 oxycodone AdvReac Intermediate Nausea Verified 09/25/22 11:45 pollen AdvReac Intermediate sneezing, Uncoded 09/25/22 11:45 congestion Home Medication Medication Instructions Recorded bupropion HCl 150 mg tablet,12 hr 150 mg PO BID 11/18/17 sustained-release multivitamin 1 tab PO DAILY 11/18/17 nitroglycerin 0.4 mg sublingual 1 tab PO PRN PRN 01/07/18 tablet atorvastatin 80 mg tablet 80 mg PO .Q PM 05/31/19 loratadine 10 mg capsule 10 mg PO DAILY 05/03/21 temazepam 15 mg capsule (Restoril) 15 mg PO QHS 05/25/21 cholecalciferol (vitamin D3) 25 25 mcg PO DAILY 08/07/21 mcg (1,000 unit) tablet (Vitamin D3) valsartan 40 mg tablet 320 mg PO DAILY 05/28/22 fluticasone propionate 50 1 spray intranasal BID 06/12/22 mcg/actuation nasal spray,suspension testosterone 100 mg/mL 2 mg IM Q14D 06/12/22 intramuscular suspension metoprolol succinate 25 mg 25 mg PO HS #30 tabs 07/10/22 tablet,extended release 24 hr hydroxyzine HCl 10 mg tablet 10 mg PO BID PRN 09/05/22 acetaminophen 500 mg tablet 1,000 mg PO Q8H PRN pain #90 tabs 09/10/22 aspirin 81 mg tablet,delayed 81 mg PO BID 30 days #60 tabs 09/10/22 release celecoxib 200 mg capsule (Celebrex) 200 mg PO BID PRN #60 caps 09/10/22 docusate sodium 100 mg capsule 100 mg PO BID #30 caps 09/10/22 (Colace) gabapentin 300 mg capsule 300 mg PO QHS #14 caps 09/10/22 oxycodone 5 mg tablet 5 mg PO Q4H PRN severe 09/10/22 post-operative pain #18 tabs apixaban 2.5 mg tablet (Eliquis) 2.5 mg PO BID 09/23/22 ferrous sulfate 27 mg iron tablet 27 mg PO DAILY 09/25/22 furosemide 20 mg tablet 40 mg PO DAILY 09/25/22 Current Visit Medications: Current Medications Generic Name Dose Route Start Last Admin Trade Name Calvin PRN Reason Stop Dose Admin Acetaminophen 1,000 mg 09/25/22 06:00 Acetaminophen 500 Mg Tab PO 09/25/22 16:00 PREOP [facility] Celecoxib 400 mg 09/25/22 06:00 Celecoxib 200 Mg Cap PO 09/25/22 16:00 PREOP [facility] Gabapentin 300 mg 09/25/22 06:00 Gabapentin 300 Mg Cap PO 09/25/22 16:00 PREOP [facility] PFSH Active Problems Active Problems: Problem Status Onset Code Rupture of left quadriceps muscle S76.112A History of total left knee replacement (TKR) 06/12/22 Z96.652 Contusion of leg, right S80.11XA Anemia D64.9 CHF (congestive heart failure) I50.9 Hyponatremia E87.1 Bigeminal rhythm I49.9 Depression F32.9 DVT prophylaxis Z29.9 Advance directive discussed with patient Z71.89 De Quervain's tenosynovitis, left M65.4 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.12 Laceration of left index finger S61.211A Fracture of distal phalanx of left index finger S62.631A De Quervain's tenosynovitis, right M65.4 Pes planus of left foot M21.42 Biceps tendinitis of left upper extremity M75.22 Bursitis of shoulder, left M75.52 Medical History Medical History Bilateral carotid artery stenosis CAD (coronary artery disease) Cardiomyopathy CKD (chronic kidney disease) 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 Heart palpitations None recently (05/28/22) History of non-ST elevation myocardial infarction (NSTEMI) November 2017 HLD (hyperlipidemia) HTN (hypertension) with goal to be determined Hx of sinusitis Hyperpiesia Hypertension Surgical History Surgical History (Updated 09/25/22 @ 11:50 by Gena Ball RN) History of heart artery stent History of revision of total replacement of right knee joint Right TKA - [facility] (2003) Two-stage revision for infection -[place] (2008) Hx of cataract surgery Hx of rhinoplasty Hx of total knee arthroplasty LEFT S/P ORIF (open reduction internal fixation) fracture Right distal femur fracture S/P tendon repair 09/15/22 Status post laparoscopic cholecystectomy (~01/2022) Status post left foot surgery (09/17/21) [facility] Tobacco Smoking/Tobacco Use Status: Former Tobacco Use Alcohol Alcohol Intake: former Substance Use Substance use type: does not use Vital Signs and Lab Results Lab Results Blood Type / Crossmatch: No Data to Display Complete Blood Count: White Blood Count 7.78 10^3/uL (4.4-10.8) 09/18/22 10:40 Red Blood Count 5.17 10^6/uL (4.36-5.78) 09/18/22 10:40 Hemoglobin 15.3 g/dL (13.5-17.5) 09/18/22 10:40 Hematocrit 47.9 % (40.0-50.0) 09/18/22 10:40 Platelet Count 178 10^3/uL (130-400) 09/18/22 10:40 Complete Metabolic Panel: Sodium 140 mmol/L (136-145) 09/18/22 10:40 Potassium 4.3 mmol/L (3.5-5.1) 09/18/22 10:40 Chloride 103 mmol/L (98-107) 09/18/22 10:40 Carbon Dioxide 28.5 mmol/L (21.0-32.0) 09/18/22 10:40 BUN 29 mg/dL (7-18) H 09/18/22 10:40 Creatinine 1.9 mg/dL (0.70-1.30) H 09/18/22 10:40 Est GFR (CKD-EPI 2020) 34.79 (mL/min/1.73m2) 09/18/22 10:40 Calcium 9.0 mg/dL (8.5-10.1) 09/18/22 10:40 Glucose 73 mg/dL (74-106) L 09/18/22 10:40 Liver Function Panel: No Data to Display Coagulation Panel: No Data to Display Cardiac Panel: NT-Pro-B Natriuret Pep 4983 pg/mL (<300) H 09/18/22 Arterial Blood Gas: No Data to Display Venous Blood Gas: No Data to Display Pancreas Panel: No Data to Display Thyroid Panel: No Data to Display Infectious Disease: Coronavirus 2019 Source Nasal/Nares 09/25/22 11:38 Blood Cultures: No Data to Display Toxicology Panel: No Data to Display Imaging and Studies Imaging and Studies Study information below may be from another EMR and interpreted by another provider. Please see original notes in EMR for more complete details. EKG Summary: 02/06 Sinus rhythm...normal P axis, V-rate 60- 99 Borderline prolonged FL interval...FL >212, V-rate 50- 90. Sinus. No STEMI. Stress Test Summary: 06/07 Stress ECG Conclusion 1. The resting electrocardiogram showed sinus rhythm, poor R wave progression unable to exclude old anteroseptal NV 2. Patient underwent pharmacologic stress with regadenoson. Peak heart rate achieved was 55% of maximal for age 3. Electrocardiographically the test was nondiagnostic due to inadequate heart rate Echocardiogram Summary: 07/08/22 Echocardiogram Conclusion Normal left ventricular wall thickness and chamber size. Estimated ejection fraction is 45 to 50%, mildly reduced systolic function. There are no segmental wall motion abnormalities Normal right ventricular size and systolic function Both atria are mildly dilated Aortic valve is mildly sclerotic and trileaflet with mild regurgitation Normal mitral valve with moderate regurgitation Normal tricuspid valve with mild regurgitation. 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 Anesthesia Assessment and Plan Anesthesia History Personal History: No History of Anesthesia Complications Family History: No Family History of Anesthesia Complications Exercise Tolerance Exercise Tolerance: Unknown Pertinent Negatives Pertinent Negatives: No Symptoms of GERD and No Major Pulmonary Symptoms or Complaints Cardiac & Pulmonary Exam Cardiac Exam: Normal S1/S2 Heart Sounds Pulmonary Exam: Clear Bilateral Breath Sounds Implantable Cardiac Device Does patient have a Pacemaker or an ICD?: No Airway Exam Known Difficult Airway: No Mallampati Class: 3 Mouth Opening: Normal (> 3cm) Thyromental Distance: Greater than 3 cm Neck Range of Motion: Full ROM Neck Circumference: Normal Teeth Condition: Generalized Poor Dentition ASA Classification ASA Score: ASA 3 Emergency Case?: No NPO Status NPO Status: NPO Clears >2 hours, Solids >8 hours Anesthesia Plan Resuscitation Status: Full Code Anesthesia Technique: Spinal Anesthesia Airway Planned: Natural Airway Pain Management: Intrathecal Analgesia Monitors Used: Standard Monitors Preoperative Comments:: Hx carotid artery?s disease, cardiomyopathy, chf,, afib on eliquis. Last dose Friday am.
[2022-09-25] VITALS (15 sets, daily range): BP systolic 126–167; BP diastolic 75–119; PULSE 69–96; RESP 16–26; TEMP 36.2–37.1; O2SAT 95–98; BMI 25.9
[2022-09-25 11:48] LABS: Source Nasal/Nares
[2022-09-25] MEDS: Celecoxib 200 MG CAP 400 MG PO (12:10)
[2022-09-25] MEDS: Acetaminophen 500 MG TAB 1000 MG PO ×2 (12:11→19:20)
[2022-09-25] MEDS: Gabapentin 300 MG CAP PO ×2 (12:11→21:35)
[2022-09-25 12:24] LABS: COVID-19 PCR Negative (Negative)
[2022-09-25] MEDS: Lactated Ringers 1,000 ML 80 ML IV (12:40)
[2022-09-25] MEDS: ceFAZolin 2 GM/50 ML BAG IVPB (13:02)
--- NOTE | 2022-09-25 16:19 | W.ANESPOSTOP ---
Postoperative Evaluation Date, Time and Location Date Performed: 09/25/22 Time Performed: 16:19 Patient Location: PACU Vital Signs Most Recent Imported Vital Signs: Most Recent Vital Signs Temp Pulse Resp BP Pulse Ox 36.3 C L 69 23 133/80 98 09/25/22 15:57 09/25/22 15:57 09/25/22 15:57 09/25/22 15:57 09/25/22 15:57 Assessment Mental Status: Awake (Alert & Oriented to Patient Baseline) Airway and Respiratory Function: Patent airway with normal (patient baseline) respiratory exam Cardiovascular Function: Hemodynamically Stable Hydration Status: Adequately Hydrated Nausea & Vomiting: No Nausea or Vomiting Pain: Pain is tolerable per patient (2 on a scale of 10 in left foot) Peripheral Nerve Block: Patient did not receive a nerve block
[2022-09-25] MEDS: fentaNYL 100 MCG/2 ML VIAL IVP (16:27)
--- NOTE | 2022-09-25 18:30 | ROE_ITS ---
Date of service: 09/25/22 Time of Service: 15:40 Operative Note Operative Note DATE OF PROCEDURE: 09/25/22 PRE-OP DIAGNOSIS: Ruptured Quadriceps/Medial Retinaculum - LEFT Knee POST-OP DIAGNOSIS: same PROCEDURE: Repair of left quadriceps/retinacular rupture SURGEON: Chang Anthony WHEEL MILL OPERATOR: Luana Rosenberg ANESTHESIA TYPE: General LMA/ETT Refer to Anesthesia Record ESTIMATED BLOOD LOSS: 50 PATHOLOGY: none sent TOURNIQUET TIME: 0 COMPLICATIONS: None Patient was transported to: PACU Patient's condition: stable Indications: Erwin is a 81 year old male who is s/p Procedure Description: Erwin was greeted in the preoperative holding area where the correct side was identified and marked.? The consent was reviewed with the patient and signed.? The history and physical was updated.? All questions were answered.? Preoperative mediacations were administered: Acetaminophen 1000mg, Celebrex 400mg, and Gabapentin 300mg. Erwin was taken back to the operating room.? A spinal anesthestic was administered.? The patient was placed into the supine position on the operating room table.? Posts were placed for positioning during the procedure.? All bony prominences were well padded.? Prophylactic antibiotics in the form of Cefazolin were administered.? The left leg was then prepped with Chloraprep and draped in a standard fashion with impervious stockinette.? A second prep with Chloraprep was performed prior to application of Iodine impregnated skin protection.? A timeout to confirm correct identity, side and site, procedure, allergies, anesthesia, and medical concerns was performed. With the knee in some flexion, a midline incision was made overlying the knee utilizing the previous incision.? Full thickness skin flaps were raised once the extensor mechanism was encountered.? These were raised medially and laterally. There is an obvious defect of the quadriceps repair in the arthrotomy with a escalona of joint fluid.? Any bleeding was controlled with electrocautery. Medial and lateral skin flaps were raised to fully evaluate the extensor mec hanism. The defect was quite obvious. It ended about the midportion of patella with maybe some slight diastases at that level but by the inferior portion of the patella there was no defect. The proximal extent went through the quadriceps split and into the vastus lateralis. Using a curette and rongeur a debrided down any of the early scar formation to show tendinous material. Once the tendon was encountered it was able to be easily mobilized back over without significant tension and at 90 degrees of flexion.? I then debrided excess synovium from within the knee and the undersurface of the quadriceps mechanism.? The previous repair of the quadriceps to the superior patella was intact as was those sutures. The periosteal and capsular tissues were then systematically injected with a periarticular cocktail consisting of ropivacaine, epinephrine, clonidine, and ketorolac, diluted to 50 cc.? I then irrigated the knee with surgery for Betadine solution.? It sat the knee for 3 minutes and then was irrigated out with saline. I then performed the repair of the retinaculum and into the quadriceps tendon.? This was done with a pants over vest type repair using #2 FiberWire.? This had excellent reapproximation of the tendon and retinacular material to create a pants over vest repair.? This was done with interrupted fashion until there was a watertight closure.? This was reinforced in multiple positions and then tested to 90 degrees. The wound was then once again irrigated.? The deep tissues were closed with 0 Vicryl followed by 2-0 Monocryl.? Skin was closed with a running 3-0 Monocryl, reinforced with skin glue.? A Mepilex silver dressing was applied along with Webrill padding. A long leg anterior/posterior splint was applied in full extension. A CryoCuff was applied.? Erwin has a gaurded prognosis. Aspirin 81mg daily and Eliquis 2.5mg BID will be used for DVT prophylaxis.
[2022-09-25] MEDS: Ketorolac 15 MG/ML VIAL IVP (18:38)
[2022-09-25] MEDS: ceFAZolin 1 GM/50 ML BAG IVPB (19:18)
[2022-09-25] MEDS: Aspirin E.C. 81 MG TABEC PO (19:19)
[2022-09-25] MEDS: buPROPion-CR 150 MG TABCR PO (19:20)
[2022-09-25] MEDS: Atorvastatin 40 MG TAB 80 MG PO (19:21)
[2022-09-25] MEDS: Docusate Sodium 100 MG CAP PO (19:21)
[2022-09-25] MEDS: Metoprolol CR 25 MG TABCR PO (21:34)
[2022-09-25] MEDS: Temazepam 15 MG CAP PO (21:35)
[2022-09-25] MEDS: nitroGLYcerin 0.4 MG TAB SL (21:35)
[2022-09-26] MEDS: Lactated Ringers 1,000 ML 80 ML IV ×2 (01:30→13:50)
[2022-09-26] MEDS: Ketorolac 15 MG/ML VIAL IVP ×2 (01:47→10:23)
[2022-09-26] MEDS: Normal Saline Flush 10 ML SYR IV (01:47)
[2022-09-26 01:51] VITALS: BP 142/90; PULSE 82; RESP 16; TEMP 36.4; O2SAT 98
[2022-09-26] MEDS: ceFAZolin 1 GM/50 ML BAG IVPB ×2 (03:12→11:26)
[2022-09-26 06:41] LABS: HCT 38.5 % (40.0-50.0); HGB 12.2 g/dL (13.5-17.5); MCH 29.8 pg (27.0-33.0); MCHC 31.7 % (32.0-36.0); MCV 94 fL (80-95); MPV 10.8 fL (8.0-11.0); Platelet Count 121 10^3/uL (130-400); RDW 14.4 % (11.8-14.1); RDW-SD 49.2 fL; WBC 10.06 10^3/uL (4.4-10.8)
[2022-09-26 07:02] LABS: Anion Gap 6.4 mmol/L (3-11); BUN 35 mg/dL (7-18); CO2 27.6 mmol/L (21.0-32.0); CREATININE 2.1 mg/dL (0.70-1.30); Calcium 8.1 mg/dL (8.5-10.1); Chloride 106 mmol/L (98-107); Estimated GFR 30.85 (mL/min/1.73m2); Glucose 124 mg/dL (74-106); Potassium 4.3 mmol/L (3.5-5.1); Sodium 140 mmol/L (136-145)
[2022-09-26 07:17] VITALS: BP 150/93; PULSE 77; RESP 18; TEMP 36.2; O2SAT 96
[2022-09-26] MEDS: Valsartan 80 MG TAB 320 MG PO (08:40)
[2022-09-26] MEDS: Aspirin E.C. 81 MG TABEC PO ×2 (08:40→19:12)
[2022-09-26] MEDS: Furosemide 20 MG TAB 40 MG PO (08:40)
[2022-09-26] MEDS: Cholecalciferol (Vitamin D3) 1,000 UNIT TAB 1000 UNITS PO (08:40)
[2022-09-26] MEDS: Docusate Sodium 100 MG CAP PO ×2 (08:41→19:13)
[2022-09-26] MEDS: Dexamethasone 4 MG TAB PO (08:41)
[2022-09-26] MEDS: Loratidine 10 MG TAB PO (08:41)
[2022-09-26] MEDS: buPROPion-CR 150 MG TABCR PO ×2 (08:41→19:12)
[2022-09-26] MEDS: Ferrous Sulfate 325 MG TAB PO (08:41)
[2022-09-26] MEDS: Pantoprazole 40 MG TABCR PO (08:41)
[2022-09-26] MEDS: Acetaminophen 500 MG TAB 1000 MG PO ×3 (08:41→19:11)
[2022-09-26] MEDS: Multivitamin TAB 1 TAB PO (08:41)
[2022-09-26] MEDS: Apixaban 2.5 MG TAB PO ×2 (08:41→19:12)
[2022-09-26] MEDS: HYDROmorphone 2 MG TAB PO ×2 (08:42→13:47)
[2022-09-26 11:18] VITALS: BP 148/81; PULSE 71; RESP 19; TEMP 36.5; O2SAT 99
[2022-09-26 14:55] VITALS: BP 152/92; PULSE 84; RESP 19; TEMP 36.8; O2SAT 96
--- NOTE | 2022-09-26 15:26 | PDOC.CMIN ---
- If Service Date Differs Date of service: 09/26/22 Time of Service: 15:26 Care Management Initial Assess REASON FOR HOSPITALIZATION:: Quad rupture of left TKA PAST MEDICAL HISTORY/PAST SURGICAL HISTORY:: All Active Problems. Rupture of left quadriceps muscle (Acute). History of total left knee replacement (TKR) (Acute 06/12/22). Contusion of leg, right (Acute). Anemia (Chronic). CHF (congestive heart failure) (Acute). Hyponatremia (Chronic). Bigeminal rhythm (Acute). Depression (Chronic). DVT prophylaxis (Acute). Advance directive discussed with patient (Acute). De Quervain's tenosynovitis, left (Acute). Steroid injection: 06/26/2020, 02/21/2021. 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 Laceration of left index finger (Acute). Fracture of distal phalanx of left index finger (Acute). De Quervain's tenosynovitis, right (Acute). Injection: 06/13/2021; 01/24/2021. Pes planus of left foot (Acute). Biceps tendinitis of left upper extremity (Acute). Bursitis of shoulder, left (Acute). Medical History. Bilateral carotid artery stenosis. CAD (coronary artery disease). Cardiomyopathy. CKD (chronic kidney disease). 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. arthiritis in thumbs. Heart palpitations. None recently (05/28/22). History of non-ST elevation myocardial infarction (NSTEMI). November 2017. HLD (hyperlipidemia). HTN (hypertension) with goal to be determined. Hx of sinusitis. Hyperpiesia. Hypertension. Surgical History. History of heart artery stent. History of revision of total replacement of right knee joint. Right TKA - [place] (2003). Two-stage revision for infection -[place] (2008). Hx of cataract surgery. Hx of rhinoplasty. S/P ORIF (open reduction internal fixation) fracture. Right distal femur fracture. Status post laparoscopic cholecystectomy (~01/2022). Status post left foot surgery (09/17/21). [facility] PREVIOUS FUNCTIONAL STATUS/SOCIAL/FAMILY SUPPORTS:: Tra lives in [place] with his , Jesse. 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 He then retired to [place], and later moved to [place], about three years ago. Tra drives and is active and independent at baseline. 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 CURRENT FUNCTIONAL STATUS:: Tra was sitting up in his chair when CM met with him. His , Jesse was in the room visiting. Tra stated that he met with Dr. Anthony earlier today, and he is hopeful that he will be able to go home tomorrow. Per Dr. Anthony, he would like Tra to work with PT for a couple days prior to discharge to work on safe transfers. Tra stated that he and his have ordered a chair lift for their stairs, and an electric lift chair. He stated that he is not agreeable to going to a facility for rehab. CM will continue to follow. ADVANCE DIRECTIVES:: On file, [facility] is Jesse Has patient been provided with info about the portal/API?: Yes Did the patient sign up for the portal?: No CODE STATUS:: Full Code INSURANCE COVERAGE / FINANCIAL ISSUES:: [facility] MCR replacement CURRENT HOME/COMMUNITY SERVICES/EQUIPMENT:: Has a FWW, and is ordering a lift chair as well as a chair lift for their stairs. PRIMARY CARE PHYSICIAN:: Karo Otero POTENTIAL DISCHARGE NEEDS:: Evaluations for further needs, follow up appointments. PATIENT/FAMILY EDUCATION NEEDS:: Review discharge instructions and limitations, discussion of self care needs including ask me three. ANTICIPATED BARRIERS TO DISCHARGE:: Arnoldos mobility is limited at this time. He is not agreeable to SNF, but may require additional PT prior to going home. TRANSPORTATION:: Via private vehicle by his . PLAN:: Anticipate Tra will return home once medically cleared. His will drive him home via private vehicle. He will follow up with Ortho, his PCP and his discharge plan of care. CM will continue to follow.
--- NOTE | 2022-09-26 16:06 | W.PM.PROGNOT ---
Date of Service Date of service: 09/26/22 Time of Service: 12:50 Assessment and Plan Assessment and plan (1) Rupture of left quadriceps muscle: Status: Acute Assessment and plan: Erwin is postop day #1 status post repair of recurrent quadriceps rupture about the left knee in the setting of a knee replacement. The repair was performed with a pants over vest method and he was placed into a long-leg splint. I am concerned about his ability to bend even within the splint. We will continue to treat in the splint for today and mobilize physical therapy to assess how he is doing. However, my suspicion is that we will then place him into a cast. He will start with mobilizing, focusing on transfers. Weight-bear as tolerated with the leg in the splint. He should avoid any active flexion of the left knee. (2) CHF (congestive heart failure): Status: Acute Assessment and plan: Intermittent chest pain which resolved with time and nitro. No ongoing symptoms. This is a chronic issue for him and is no significantly different than previous episodes. (3) Atrial fibrillation: Status: Chronic Assessment and plan: Continue Eliquis. Rate controlled currently. (4) CKD (chronic kidney disease): Assessment and plan: Hold on ketorolac. We will continue with meloxicam though to help assist with pain control and inflammation. Subjective Subjective Interval history since last seen: Erwin has some pain last night. He also had episode of chest pain and some erratic blood pressure. This all seem to settle with some time. He did have 1 dose of nitro which helped out the chest pain which she does have to do at home occasionally. He now feels quite well. He has no acute complaints. His pain is currently controlled. He has not mobilized as of yet. He denies any numbness or tingling. He has been able to mobilize within the bed by himself. He denies current chest pain or shortness of breath. Exam Narrative Exam Narrative: Sitting up in the hospital bed. Splint is applied to the left leg. No significant swelling. No drainage. Sensation intact to light touch over the deep and superficial peroneal nerve and tibial nerve. Objective Last Vital Signs Temp 36.8 C 09/26/22 14:55 Pulse 84 09/26/22 14:55 Resp 19 09/26/22 14:55 BP 152/92 H 09/26/22 14:55 Pulse Ox 96 09/26/22 14:55 Laboratory Results - last 24 hr 09/26/22 09/26/22 06:05 06:05 WBC 10.06 RBC 4.10 L Hgb 12.2 L Hct 38.5 L MCV 94 MCH 29.8 MCHC 31.7 L RDW 14.4 H Plt Count 121 L MPV 10.8 Sodium 140 Potassium 4.3 Chloride 106 Carbon Dioxide 27.6 Anion Gap 6.4 BUN 35 H Creatinine 2.1 H Est GFR (CKD-EPI 2020) 30.85 Glucose 124 H Calcium 8.1 L Time Spent with Patient Time Spent with Patient: <25 minutes Time was spent: preparing to see the patient(eg.review tests), ordering medications,tests, procedures and counseling the patient
--- NOTE | 2022-09-26 16:54 | PT.INIE ---
PT Notes Visit Reasons: Quad rupture of left TKA Physical Therapy Inpatient Initial Evaluation Date: 09/26/2022 Referring Doctor: AUTUMN Hart PT Orders: PT CONSULT: S/P Ortho Surgery.? WBAT with leg in full extensio in splint Precautions: Fall. Standard.? WBAT on L LE with knee i full extension at all times. Patient Profile/Admitting Diagnosis: Erwin is an 81-year-old male patient with diagnosis of ruptured L quads tendon and medial retinaculum of L knee S/P repair on postoperative day 1. Patient is S/P L quadriceps tendon repair on 09/10/2022 and S/P L TKA in 06/12/2022. PMHX: All Active Problems?(Updated 09/10/22 @ 16:55 by Chang Anthony MD) Rupture of left quadriceps muscle (Acute) History of total left knee replacement (TKR) (Acute 06/12/22) Contusion of leg, right (Acute) Anemia (Chronic) CHF (congestive heart failure) (Acute) Hyponatremia (Chronic) Bigeminal rhythm (Acute) Depression (Chronic) DVT prophylaxis (Acute) Advance directive discussed with patient (Acute) De Quervain's tenosynovitis, left (Acute) Steroid injection: 06/26/2020, 02/21/2021 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 (Acute) Laceration of left index finger (Acute) Fracture of distal phalanx of left index finger (Acute) De Quervain's tenosynovitis, right (Acute) Injection: 06/13/2021; 01/24/2021es planus of left foot (Acute) Biceps tendinitis of left upper extremity (Acute) Bursitis of shoulder, left (Acute) Medical History? 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 History of heart artery stent History of revision of total replacement of right knee joint Right TKA - [place] (2003) Two-stage revision for infection -[place] (2008) Hx of cataract surgery Hx of rhinoplasty S/P ORIF (open reduction internal fixation) fracture Right distal femur fracture Status post laparoscopic cholecystectomy (~01/2022) Status post left foot surgery (09/17/21) [facility] Social History/Home Situation: Lives with in a private home with a ramp to enter.? The living room on the main floor has been set up to be his sleeping area so he does not need to deal with steps.? reports that she helped with walking using gait belt,? FWW, and wheelchair follow prior to admission. Equipment Owned/DME: FWW, SPC Subjective: Reports 3/10 pain in the L knee with ambulation, 1-2/10 at rest. Complained of fatigue with ambulation requiring 4 seated rests. Patient states that they are buying an electric lift chair so that it may be less tedious to stand up. Objective: General Observation: Supine in bed. REJI wraps over anterior and posterior long leg splints on the L LE. ? Marina present during evaluation. Mental Status: A and O x4 Vital signs:? WNL as closely monitored via telemetry Pain: Reports 3/10 pain in the L knee with ambulation, 1-2/10 at rest. ROM: Right Lower Extremity: Hip flexion WFL. Hip abduction WFL. Knee flexion WFL. Ankle dorsiflexion to neutral only. Ankle plantarflexion WFL. Left Lower Extremity: Hip and knee NT. Patient did demonstrate some bending at the about 30-40 degrees with sitting at edge of bed. Ankle WFL. Strength: Right Lower Extremity: Hip flexors 4/5. Hip abductors 4/5. Knee flexors 4/5. Knee extensors 4-/5. Ankle dorsiflexors 3-/5. Ankle plantarflexors 4-/5. Left Lower Extremity: NT Sensation: Intact as to pain and light pressure in bilateral lower extremities Bed Mobility/Transfers: Sit to stand moderate assist with maximal verbal cueing to slide L LE to full knee extension right before standing up, cues to push with B UE at edge of bed/wheelchair armrest Stand to sit contact guard assist with maximal verbal cueing to slide L LE to full knee extension before sitting down Bed to chair moderate assist with maximal verbal cueing to slide L LE to full knee extension right before standing up/sitting down, cues to push with B UE at edge of bed/wheelchair armrest Gait: Covered 200 steps with four 5-minute seated rests. Step-to gait pattern requiring contact guard assist with FWW. Maximal cueing provided to keep L knee in extension (walking stiff-legged) throughout. Cues provided for upright posture. Walker height decreased one notch lower to minimize strain on B shoulders without compromising posture. BP was 174/88 mmHg which required seated rest, went down to 134/70s mmHg when taken again and after ambulation activity. Stairs: Not applicable.? Deferred. Balance: Static Sitting: Normal Dynamic Sitting: Good Static Standing: Fair Dynamic Standing: Fair Special Tests: Mobility Limitations Standardized Measure [facility]-PAC 6 clicks Basic Mobility Inpatient Short Form: Raw Score: 18? CMS Score: 47% deficit Informed Consent/Education:? Patient instructed in purpose of PT consult and plan of care.? Emphasized surgeon's instruction on keeping L knee extended at all times during mobility ADL performance. Assessment: Due to weak quads from tendon re-rupture, patient is unable to maintain L knee in extension and is too weak to counter the pull of L knee flexors as patient stands up. Weak B UE/trunk and recovering L rotator cuff tear compound the issue. Dr. Anthony was updated of the amount of unintentional knee flexion during movement transition for sit<>stand going beyond 30 degrees. Performance of sit<>stand from a high surface will optimize knee extension so an electric lift chair or a hospital bed may facilitate postoperative healing at home. Provide assist of 2 for all transfers to ensure that L knee is maintained in extension. L LE will need to be assisted as patient sits up from supine in bed to ensure the same. Patient presents with clinical signs and symptoms consistent with current/admitting diagnoses that have resulted to mobility limitations, gait instability, generalized weakness, and overall ADL decline as demonstrated by the following impairment level findings: 1.? Decreased strength to L quad 2.? Impaired standing balance 3.? Impaired activity tolerance 4.? Unable to fully extend knee during movement transitions Impairments are contributing to the following functional limitations: 1.? Decline in bed mobility skills 2.? Decline in transfer skills 3.? Difficulty with ambulation without assistive device and physical assistance 4.? Increased completion time for mobility ADL performance 5.? Increased risk for falls 6.? Difficulty with managing steps alone safely Patient is assessed as a 65257 moderate complexity based on the following: History: 81-year-old male with impairment level findings, functional limitations, and past medical history as indicated above Examination: Demonstrable impairment in strength, balance, and mobility level with underlying impairments and functional limitations as documented above Presentation: Evolving Decision Makin moderate complexity Goals: Goals X1 week 1. Supine-Sit independent with knee in full extension throughout using leg forming machine adjuster as needed 2. Sit-Supine independent with knee in full extension throughout using leg forming machine adjuster as needed 3. Sit-Stand contact guard assist with knee in full extension throughout using leg forming machine adjuster as needed 4. Stand-Sit contact guard assist with knee in full extension throughout 5. Bed-Chair contact guard assist with knee in full extension throughout 6. Chair-Bed contact guard assist with knee in full extension throughout 7. Supervision with gait on level surface with use of FWW for at least 75 feet with L knee in full extension throughout Plan of Care/Treatment Plan: 1-2x/day, 7 days/week x 1 week. Plan of care has been reviewed with the DATA INTEGRATION ANALYST providing the service under Physical Therapy direction. Initiate Physical Therapy intervention for pain management as needed, strengthening, bed mobility, transfers, gait, stairs, balance training, and use of assistive device. DISCHARGE RECOMMENDATIONS: [] Home with no services [] [] Home with services [specify] [] Home with outpatient PT [] [] SNF for continued rehabilitation [] [] Senior Living Care [] [] SNF versus LTC based on ability to participate and progress [] [X] PT vs SNF depending on needed assistance with mobility to maintain extension in L knee and on progress towards goals TREATMENT CODE/TIME: 93667 x 20 minutes, 59175 x 29 minutes beginning at 12:51 PM. Thank you for the opportunity to participate in the care of this patient. Flory Whyte PT, DPT, CLT [facility] [place], [place]
[2022-09-26 17:42] VITALS: TEMP 36.8
[2022-09-26] MEDS: HYDROmorphone 2 MG/ML VIAL 0.5 MG IVP (17:42)
[2022-09-26] MEDS: Atorvastatin 40 MG TAB 80 MG PO (19:12)
[2022-09-26 19:50] VITALS: BP 158/89; PULSE 80; RESP 18; TEMP 36.6; O2SAT 98
[2022-09-26] MEDS: Temazepam 15 MG CAP PO (21:16)
[2022-09-26] MEDS: Metoprolol CR 25 MG TABCR PO (21:16)
[2022-09-26] MEDS: Gabapentin 300 MG CAP PO (21:16)
[2022-09-26] MEDS: Ondansetron 4 MG/2 ML VIAL IVP (21:30)
[2022-09-27] VITALS (10 sets, daily range): BP systolic 159–183; BP diastolic 80–106; PULSE 61–97; RESP 16–22; TEMP 36.1–37; O2SAT 96–99
--- NOTE | 2022-09-27 | DI.RAD_ITS ---
Exam(s) XR CHEST 2V PA LATERAL EXAM: XR CHEST 2V PA LATERAL CLINICAL HISTORY: h/o CHF, increasing cough and BP TECHNIQUE: 2D digital imaging was performed of the chest. Two images were obtained. PA and lateral views were obtained. COMPARISON: CR XR RIBS LT W PA LAT CHEST from 08/07/2021 FINDINGS: MEDIASTINUM: Normal. HEART: Normal. PULMONARY VASCULATURE: Atherosclerosis. LUNGS: Clear. PLEURAL SPACE: No pleural effusion or pneumothorax. BONE:Within normal limits for the patient's age. OTHER FINDINGS:Normal. IMPRESSION: No acute pulmonary findings. DATA REPOSITORY: RADIATION DOSE DELIVERED:
[2022-09-27] MEDS: Lactated Ringers 1,000 ML 80 ML IV (02:03)
[2022-09-27] MEDS: buPROPion-CR 150 MG TABCR PO ×2 (07:46→19:27)
[2022-09-27] MEDS: Apixaban 2.5 MG TAB PO ×2 (07:46→19:26)
[2022-09-27] MEDS: Pantoprazole 40 MG TABCR PO (07:46)
[2022-09-27] MEDS: Polyethylene Glycol 3350 17 GM PACKET PO (07:46)
[2022-09-27] MEDS: Docusate Sodium 100 MG CAP PO ×2 (07:47→19:26)
[2022-09-27] MEDS: Dexamethasone 4 MG TAB PO (07:47)
[2022-09-27] MEDS: Cholecalciferol (Vitamin D3) 1,000 UNIT TAB 1000 UNITS PO (07:47)
[2022-09-27] MEDS: Ferrous Sulfate 325 MG TAB PO (07:47)
[2022-09-27] MEDS: Acetaminophen 500 MG TAB 1000 MG PO ×3 (07:47→19:26)
[2022-09-27] MEDS: Multivitamin TAB 1 TAB PO (07:47)
[2022-09-27] MEDS: Furosemide 20 MG TAB 40 MG PO (07:47)
[2022-09-27] MEDS: Aspirin E.C. 81 MG TABEC PO (07:47)
[2022-09-27] MEDS: Valsartan 80 MG TAB 320 MG PO (07:47)
[2022-09-27] MEDS: Loratidine 10 MG TAB PO (07:47)
[2022-09-27] MEDS: Meloxicam 15 MG TAB PO (07:48)
[2022-09-27] MEDS: HYDROmorphone 2 MG TAB PO ×2 (07:48→14:14)
--- NOTE | 2022-09-27 09:51 | PT.INTREAT ---
Date of service: 09/27/22 Time of Service: 08:24 PT Notes Visit Reasons: Quad rupture of left TKA Inpatient Physical Therapy Treatment Note [facility] Date: 09/27/2022 PRECAUTIONS: Fall, activity as tolerated, WBAT L SUBJECTIVE: Erwin is pleasant and agreeable to participating in PT. He reports that he understands the importance of the hard cast and feels that it will aid in safe mobilization and reduced pain. OBJECTIVE: PAIN: Patient c/o L medial thigh pain after minimal gait distance. BED MOBILITY/TRANSFERS Sit-supine: SBA Sit-stand: CGA Stand-sit: CGA GAIT Assistive Device: FWW Weight bearing: WBAT L Assist: CGA in a.m.; SBA in p.m. Distance: 6 steps to chair in a.m.; 50' x2 in p.m. Deviation: Slow pacing, antalgic gait ASSESSMENT: Patient continues to demonstrate global weakness, but is able to tolerate short distance transfers with FWW support. New hard cast helpful in prevention of ROM of L knee. Patient also demonstrates SOB with all activity, which reportedly is his baseline. PLAN: Continue with gait and transfer training for improved safety with moiblity. TREATMENT CODE/TIME: Session 1: 16 minutes; 61998 (08:24) Session 2: 27 minutes; 77624 x2 (14:58)
[2022-09-27] MEDS: Ondansetron 4 MG/2 ML VIAL IVP (10:35)
[2022-09-27] MEDS: Normal Saline Flush 10 ML SYR IV ×2 (10:36→12:49)
--- NOTE | 2022-09-27 12:38 | PGE_ITS ---
Date of Service Date of service: 09/27/22 Time of Service: 07:50 Assessment and Plan Assessment and plan (1) Atrial fibrillation: Status: Chronic Assessment and plan: Continue with the Eliquis 2.5 mg twice daily along with aspirin 81 mg. Currently rate controlled. (2) CHF (congestive heart failure): Status: Acute Assessment and plan: Stop LR. May consider increasing diuresis. If the cough continues we can check a chest x-ray. (3) Rupture of left quadriceps muscle: Status: Acute Assessment and plan: Given the tendency for him to flex the left knee the splint was not going to work and therefore I transition to a cast today. He tolerated it well. He may mobilize with physical therapy and with nursing. He is weightbearing as tolerated. Focus should be placed on transfers primarily before increasing ambulatory distance. He has been working with physical therapy but still is not independent with his transfers and therefore does need more time before he is able to transfer home safely. He has had multiple falls at home, with significant weakness, which makes him another fall risk. His is working currently on obtaining necessary items for the house for safe return home. (4) Chronic cough: Status: Acute Assessment and plan: Incentive spirometer. Consider chest x-ray. Subjective Subjective Interval history since last seen: Erwin reports some increasing pain about the knee. He was able to mobilize briefly yesterday but found himself wanting to bend the knee. He did have 1 bout of some chest pain which was quickly subsided. This is per his baseline at home. He also has had some cough which is also similar to his baseline. He has been voiding without difficulty. He also has been having some increasing hyper tension. Exam Extrem Other: Left leg splint is in place. This was removed. The leg was kept in extension. There is 1 small area, approximate 1 cm diameter, of dried blood about the dressing. I then placed a well-padded long-leg cast with the knee in full extension. This was molded and padded appropriately. Objective Last Vital Signs Temp 36.1 C L 09/27/22 11:58 Pulse 82 09/27/22 11:58 Resp 18 09/27/22 11:58 BP 180/92 H 09/27/22 11:58 Pulse Ox 98 09/27/22 11:58 Time Spent with Patient Time Spent with Patient: 25-34 minutes Time was spent: preparing to see the patient(eg.review tests), obtaining and/or reviewing separately otained hiistory, ordering medications,tests, procedures and counseling the patient
[2022-09-27] MEDS: Metoprolol 25 MG TAB PO (12:49)
--- NOTE | 2022-09-27 18:09 | CMPROGNOTE_ITS ---
- If Service Date Differs Date of service: 09/27/22 Time of Service: 18:09 Care Management Progress Note S/O: Erwin was sitting up in his chair when CM met with him. He stated that he met with Dr. Anthony, who feels that he is not medically ready for discharge. Erwin and his , Jesse, who was visiting, agreed that he will benefit from continued hospitalization. He is having difficulty transferring, but is motivated to work with PT to increase his independence with mobility. Erwin stated that they have ordered a lift chair, and chair lift for their stairs, and are planning to borrow a wheelchair from the local W. CM will continue to follow. A: Tra is an 81 year old male admitted to [facility] on 09/25/22 for quad rupture of left TKA. P: Anticipate Tra will return home once medically cleared. He will likely have new orders for HH PT/OT. His will drive him home via private vehicle. He will follow up with Ortho, his PCP and his discharge plan of care. CM will continue to follow.
--- NOTE | 2022-09-27 19:05 | CHAPLAIN ---
Tra was visiting with his , Marina, when I visited. She was getting ready to leave. Tra said he had a melt down yesterday, given all that is going on. Also October 01 with be the 6th anniversary of his daughter's , so he said September is a difficult month for them. He is in a cast from his ankle to above his knee, but will be able to use a walker to get around, although the leg remains out straight when he sits down. Tra joked about having a white cast, when cast can be all different kinds of colors these days. He has been impressed with Dr. Anthony's phuc, h said.
[2022-09-27] MEDS: Atorvastatin 40 MG TAB 80 MG PO (19:26)
[2022-09-27] MEDS: Gabapentin 300 MG CAP PO (21:26)
[2022-09-27] MEDS: Temazepam 15 MG CAP PO (21:27)
[2022-09-27] MEDS: Metoprolol CR 25 MG TABCR PO (21:27)
[2022-09-28 03:33] VITALS: BP 173/109; PULSE 61; RESP 18; TEMP 36.5; O2SAT 97
[2022-09-28 06:43] LABS: Anion Gap 7.5 mmol/L (3-11); BUN 29 mg/dL (7-18); CO2 26.5 mmol/L (21.0-32.0); CREATININE 1.8 mg/dL (0.70-1.30); Calcium 7.8 mg/dL (8.5-10.1); Chloride 107 mmol/L (98-107); Estimated GFR 37.12 (mL/min/1.73m2); Glucose 86 mg/dL (74-106); Sodium 141 mmol/L (136-145)
[2022-09-28 07:18] VITALS: BP 145/100; PULSE 61; RESP 18; TEMP 36.2; O2SAT 97
[2022-09-28] MEDS: Normal Saline Flush 10 ML SYR IV ×2 (07:42→20:07)
[2022-09-28] MEDS: buPROPion-CR 150 MG TABCR PO ×2 (07:43→20:05)
[2022-09-28] MEDS: Valsartan 80 MG TAB 320 MG PO (07:43)
[2022-09-28] MEDS: Furosemide 20 MG TAB 40 MG PO (07:43)
[2022-09-28] MEDS: Loratidine 10 MG TAB PO (07:43)
[2022-09-28] MEDS: Cholecalciferol (Vitamin D3) 1,000 UNIT TAB 1000 UNITS PO (07:43)
[2022-09-28] MEDS: Docusate Sodium 100 MG CAP PO ×2 (07:43→20:06)
[2022-09-28] MEDS: Apixaban 2.5 MG TAB PO ×2 (07:43→20:07)
[2022-09-28] MEDS: Acetaminophen 500 MG TAB 1000 MG PO ×3 (07:43→20:06)
[2022-09-28] MEDS: Aspirin E.C. 81 MG TABEC PO (07:43)
[2022-09-28] MEDS: Multivitamin TAB 1 TAB PO (07:44)
[2022-09-28] MEDS: Pantoprazole 40 MG TABCR PO (07:44)
[2022-09-28] MEDS: Ferrous Sulfate 325 MG TAB PO (07:44)
[2022-09-28] MEDS: Polyethylene Glycol 3350 17 GM PACKET PO (08:15)
[2022-09-28 11:39] VITALS: BP 147/86; PULSE 74; RESP 17; TEMP 36.4; O2SAT 94
--- NOTE | 2022-09-28 14:00 | PT.INTREAT ---
Date of service: 09/28/22 Time of Service: 10:00 PT Notes Visit Reasons: Quad rupture of left TKA Inpatient Physical Therapy Treatment Note [facility] Date: 09/28/2022 PRECAUTIONS: Fall, activity as tolerated, WBAT L SUBJECTIVE: Patient is pleasant and agreeable to participating in PT.? He reports that he understands the importance of the hard cast and feels it is benefiting him. OBJECTIVE: ? PAIN: Patient c/o L leg pain of 4 out of 10 when sitting on edge of bed post ambulation to door and back. ? BED MOBILITY/TRANSFERS? Sit-supine: CGA Sit-stand: CGA ? Stand-sit: CGA ? GAIT? Assistive Device: FWW ? Weight bearing: WBAT L Assist: SBA in p.m. ? Distance:? 50' Deviation: Slow pacing, antalgic gait ASSESSMENT:? Continues to demonstrate global weakness, but is able to tolerate short distance transfers with FWW support.? Expresses that new hard cast is helpful in preventing him from flexing L knee.? Continues to demonstrates mild SOB with activity, which reportedly is his baseline. PLAN: Continue with current POC with focus on gait and transfer training for improved safety with mobility. TREATMENT CODE/TIME: Ther Activity ([id number]), 10:00 to 10:20 am
[2022-09-28] MEDS: HYDROmorphone 2 MG TAB PO (14:14)
[2022-09-28 14:35] VITALS: BP 131/58; PULSE 74; RESP 17; TEMP 36.5; O2SAT 95
--- NOTE | 2022-09-28 15:24 | W.PM.PROGNOT ---
Date of Service Date of service: 09/28/22 Time of Service: 11:50 Assessment and Plan Assessment and plan (1) Rupture of left quadriceps muscle: Status: Acute Assessment and plan: LLE in cast. WBAT in cast. Continue to work with nursing and PT to mobilize independently for transfers. Likely d/c to home on Friday with services. (2) CHF (congestive heart failure): Status: Acute Assessment and plan: Creatinine is stable, chest x-ray is without abnormality. Continue to monitor LE edema and cough. (3) CKD (chronic kidney disease): Assessment and plan: Creatinne stable. Resume Celebrex. Subjective Subjective Interval history since last seen: Erwin reports to be doing well. BP is running lower, more in his normal range. Pain has been controlled. Exam Narrative Exam Narrative: Sitting up in the chair. NAD. AAOx3. LLE in cast. No skin wear or breakdown around distal edge. Objective Last Vital Signs Temp 36.5 C 09/28/22 14:35 Pulse 74 09/28/22 14:35 Resp 17 09/28/22 14:35 BP 131/58 L 09/28/22 14:35 Pulse Ox 95 09/28/22 14:35 Laboratory Results - last 24 hr 09/28/22 05:45 Sodium 141 Potassium 4.0 Chloride 107 Carbon Dioxide 26.5 Anion Gap 7.5 BUN 29 H Creatinine 1.8 H Est GFR (CKD-EPI 2020) 37.12 Glucose 86 Calcium 7.8 L Objective Narrative Objective Narrative: Chest x-ray perfomred yesterday showed no abnormal findings. No effusion or sign of fluid overload. Time Spent with Patient Time Spent with Patient: <25 minutes Time was spent: preparing to see the patient(eg.review tests), obtaining and/or reviewing separately otained hiistory and ordering medications,tests, procedures
[2022-09-28 19:10] VITALS: BP 131/86; PULSE 72; RESP 17; TEMP 36.6; O2SAT 96
[2022-09-28] MEDS: Atorvastatin 40 MG TAB 80 MG PO (20:06)
[2022-09-28] MEDS: Celecoxib 100 MG CAP PO (20:07)
[2022-09-28] MEDS: Metoprolol CR 25 MG TABCR PO (21:55)
[2022-09-28] MEDS: Gabapentin 300 MG CAP PO (21:57)
[2022-09-28] MEDS: Temazepam 15 MG CAP PO (21:57)
[2022-09-29] VITALS (7 sets, daily range): BP systolic 143–170; BP diastolic 80–110; PULSE 71–78; RESP 16–18; TEMP 36–36.6; O2SAT 93–98
[2022-09-29] MEDS: Valsartan 80 MG TAB 320 MG PO (07:40)
[2022-09-29] MEDS: Furosemide 20 MG TAB 40 MG PO (07:40)
[2022-09-29] MEDS: Loratidine 10 MG TAB PO (07:40)
[2022-09-29] MEDS: Aspirin E.C. 81 MG TABEC PO (07:40)
[2022-09-29] MEDS: Docusate Sodium 100 MG CAP PO ×2 (07:40→19:34)
[2022-09-29] MEDS: Polyethylene Glycol 3350 17 GM PACKET PO (07:40)
[2022-09-29] MEDS: Ferrous Sulfate 325 MG TAB PO (07:40)
[2022-09-29] MEDS: Acetaminophen 500 MG TAB 1000 MG PO ×3 (07:41→19:33)
[2022-09-29] MEDS: buPROPion-CR 150 MG TABCR PO ×2 (07:41→19:34)
[2022-09-29] MEDS: Celecoxib 100 MG CAP PO ×2 (07:41→19:34)
[2022-09-29] MEDS: Normal Saline Flush 10 ML SYR IV (07:41)
[2022-09-29] MEDS: Multivitamin TAB 1 TAB PO (07:41)
[2022-09-29] MEDS: Pantoprazole 40 MG TABCR PO (07:41)
[2022-09-29] MEDS: Cholecalciferol (Vitamin D3) 1,000 UNIT TAB 1000 UNITS PO (07:41)
[2022-09-29] MEDS: Apixaban 2.5 MG TAB PO ×2 (07:41→19:34)
--- NOTE | 2022-09-29 10:34 | W.PM.PROGNOT ---
Date of Service Date of service: 09/29/22 Time of Service: 10:35 Assessment and Plan Assessment and plan (1) Rupture of left quadriceps muscle: Status: Acute Assessment and plan: LLE in cast. WBAT in cast. Continue to work with nursing and PT to mobilize independently for transfers. Likely d/c to home on Friday with services. (2) CHF (congestive heart failure): Status: Acute Assessment and plan: No significant lower extremity edema or cough. Appears to be at baseline mild to moderate hypertension. (3) CKD (chronic kidney disease): Assessment and plan: Celebrex resumed yesterday. Consider repeat BUN/creatinine if urine output decreases. Subjective Subjective Interval history since last seen: Comfortable, no complaints or concerns, confident he will be ready to go home tomorrow Exam Narrative Exam Narrative: Sitting up in the chair. NAD. AAOx3. LLE in cast. Clean and dry. Intact sensation and motor foot and ankle. No skin wear or breakdown around distal edge. Proximal posterior edge with some early pressure on posterior thigh, instructed on repositioning/monitoring, and ABD pad applied Objective Last Vital Signs Temp 97.9 F 09/29/22 08:32 Pulse 75 09/29/22 08:32 Resp 16 09/29/22 08:32 BP 160/100 H 09/29/22 07:38 Pulse Ox 97 09/29/22 08:32 Time Spent with Patient Time Spent with Patient: <25 minutes Time was spent: preparing to see the patient(eg.review tests), referring, communicating with other health health care specialist and counseling the patient
--- NOTE | 2022-09-29 13:39 | PT.INTREAT ---
Date of service: 09/29/22 Time of Service: 10:15 PT Notes Visit Reasons: Quad rupture of left TKA Inpatient Physical Therapy Treatment Note [facility] Date: 09/29/2022 PRECAUTIONS: Fall, activity as tolerated, WBAT L SUBJECTIVE: Patient is pleasant and agreeable to participating in PT.? Stated he is doing much better with getting out/ in bed and sit to stand/ stand to sit. Does get tired when walking. OBJECTIVE: ? PAIN: Not really pain. ? BED MOBILITY/TRANSFERS? Sit-supine: CGA Sit-stand: CGA ? Stand-sit: CGA ? GAIT? Assistive Device: FWW ? Weight bearing: WBAT L Assist: SBA ? Distance:? 50' x2 Deviation: Slow pacing, antalgic gait Discussed UE exercises to help strengthen arms, such as bicep curls, shoulder abd/add, shoulder flexion within comfortable ROM and chair pushups. Indicated he was purchasing small hand weights for home use. ASSESSMENT:?Moving about his room much more easily. Still struggles with sit to stand if seat is too low. PLAN: Continue with current POC with focus on gait and transfer training for improved safety with mobility. TREATMENT CODE/TIME: Ther Activity (20206o1), 9:55 to 10:15 am
[2022-09-29] MEDS: Atorvastatin 40 MG TAB 80 MG PO (19:34)
[2022-09-29] MEDS: Temazepam 15 MG CAP PO (21:15)
[2022-09-29] MEDS: Metoprolol CR 25 MG TABCR PO (21:15)
[2022-09-29] MEDS: Gabapentin 300 MG CAP PO (21:16)
[2022-09-30 03:41] VITALS: BP 145/80; PULSE 62; RESP 16; TEMP 36.4; O2SAT 96
[2022-09-30] MEDS: Celecoxib 100 MG CAP PO (07:11)
[2022-09-30] MEDS: Acetaminophen 500 MG TAB 1000 MG PO (07:11)
[2022-09-30] MEDS: Pantoprazole 40 MG TABCR PO (07:11)
[2022-09-30 07:25] VITALS: BP 168/89; PULSE 72; RESP 16; TEMP 36.3; O2SAT 96
[2022-09-30] MEDS: Aspirin E.C. 81 MG TABEC PO (07:52)
[2022-09-30] MEDS: Cholecalciferol (Vitamin D3) 1,000 UNIT TAB 1000 UNITS PO (07:52)
[2022-09-30] MEDS: Furosemide 20 MG TAB 40 MG PO (07:52)
[2022-09-30] MEDS: Multivitamin TAB 1 TAB PO (07:53)
[2022-09-30] MEDS: Valsartan 80 MG TAB 320 MG PO (07:53)
[2022-09-30] MEDS: Loratidine 10 MG TAB PO (07:54)
[2022-09-30] MEDS: Ferrous Sulfate 325 MG TAB PO (07:54)
[2022-09-30] MEDS: buPROPion-CR 150 MG TABCR PO (07:54)
[2022-09-30] MEDS: Docusate Sodium 100 MG CAP PO (07:54)
[2022-09-30] MEDS: Apixaban 2.5 MG TAB PO (07:54)
--- NOTE | 2022-09-30 08:43 | PT.INTREAT ---
Date of service: 09/30/22 Time of Service: 08:23 PT Notes Visit Reasons: Quad rupture of left TKA Inpatient Physical Therapy Treatment Note [facility] Date: 09/30/2022 PRECAUTIONS: Fall, activity as tolerated, WBAT L SUBJECTIVE: Erwin is pleasant and agreeable to participating in PT. He states that he is feeling more confident in his mobility and feels ready to return to home. He reports that he had a ramp placed over his one BRENNEN, therefore he does not feel he needs a lift-assist into his home. OBJECTIVE: PAIN: No c/o pain BED MOBILITY/TRANSFERS Sit-supine: I with HOB flat Supine-sit: I with HOB flat Sit-stand: SBA Stand-sit: SBA GAIT Assistive Device: FWW Weight bearing: WBAT L Assist: SBA Distance: 5' + 60' Deviation: Step-to gait pattern, slightly anteroflexed posture, mild SOB Car Transfer: Patient was assisted with sitting and sliding across backseat of car, he requires assist with L LE due to weight for successful scooting with B UE. ASSESSMENT: Patient demonstrates improved mobility and ability to perform transfers and bed mobility. He also demonstrates decreased SOB with activity compared to previous sessions. PLAN: Patient to discharge to home later today, per provider. Recommend follow up with PT upon discharge. TREATMENT CODE/TIME: Session 1: 16 minutes; 69909 (08:23) Session 2: 10 minutes; 79672 (10:08)
--- NOTE | 2022-09-30 08:47 | W.PM.DS.N ---
Date of service: 09/30/22 Time of Service: 07:50 DS: Diagnosis Discharge Diagnosis (1) Rupture of left quadriceps muscle: Status: Acute Discharge Plan Disposition Patient Disposition: Home W/Home Health Services Condition: Good Discharge Details Reason For Visit: Quad rupture of left TKA Admit Date/Time: 09/25/22 16:50 Admit Provider: Chang Anthony Attending Provider: Chang Anthony Primary Care Provider: Karo Otero Hospital Course Hospital Course: Patient was admitted to the medical/surgical floor following the procedure. The surgery was tolerated well without any notable medical, surgical, or anesthetic complications. Mobilization began postoperatively. He was voiding spontaneously. There was some issue with hypertension. However, this improved with regular medication use and timing. Additionally, he had 1 or 2 bouts of some chest pain which is per his baseline which resolved with time and 1 administration of nitroglycerin. Once again, this is per his baseline. It was not associated any other vital sign abnormalities or changes. Physical therapy worked with the patient where there was noted to be some difficulties with managing the new restrictions of his left leg in full extension. He was transition to a cast on postop day #2 maintain knee extension. Continue to work with physical therapy and with nursing and then was cleared for discharge home. No acute medical issues. Pain was controlled on oral regimen. Home Meds and New Rx's Prescriptions: New tramadol 50 mg tablet 50 mg PO BID PRNQty: 10 0RF Continued Eliquis 2.5 mg tablet 2.5 mg PO BID temazepam [Restoril] 15 mg capsule 15 mg PO QHS valsartan 40 mg tablet 320 mg PO DAILY hydroxyzine HCl 10 mg tablet 10 mg PO BID PRN bupropion HCl 150 MG tablet extended release 12 hr 150 mg PO BID multivitamin 1 EACH capsule 1 tab PO DAILY atorvastatin 80 mg Tablet 80 mg PO .Q PM loratadine 10 mg Capsule 10 mg PO DAILY aspirin 81 mg tablet,delayed release (DR/EC) 81 mg PO BID 30 Days Qty: 60 0RF docusate sodium [Colace] 100 mg capsule 100 mg PO BID Qty: 30 0RF gabapentin 300 mg capsule 300 mg PO QHS Qty: 14 0RF Rx Instructions: Take one tablet at bedtime nitroglycerin 0.4 MG tablet, sublingual 1 tab PO PRN PRN Patient Comments: pt using when doing something strenous cholecalciferol (vitamin D3) [Vitamin D3] 25 mcg (1,000 unit) Tablet 25 mcg PO DAILY fluticasone propionate 50 mcg/actuation [place],Suspension 1 spray INTRANASAL BID Rx Instructions: administer into each nostril testosterone 100 mg/mL Suspension 2 mg IM Q14D Patient Comments: pt gets every other week. Pt. unsure of the brand metoprolol succinate 25 mg tablet extended release 24 hr 25 mg PO HS Qty: 30 0RF ferrous sulfate 27 mg iron Tablet 27 mg PO DAILY furosemide 20 mg tablet 40 mg PO DAILY Patient Comments: TAKE TWO TABLETS BY MOUTH EVERY MORNING acetaminophen 500 mg tablet 1,000 mg PO Q8H PRN Qty: 90 0RF Rx Instructions: Take two tablets up to every 8 hours as needed for pain Changed celecoxib [Celebrex] 200 mg capsule 200 mg PO DAILY PRN PRNQty: 30 0RF Rx Instructions: Take one tablet twice daily for pain and inflammation Discontinued oxycodone 5 mg tablet 5 mg PO Q4H PRN (Reason: severe post-operative pain) Qty: 18 0RF Rx Instructions: Take one tablet up to every 4 hours as needed for severe pain Discharge Instructions Additional Instructions: Quadriceps Repair Discharge Instructions Activity:?Your leg will be kept straight in the cast. You may work on moving your foot and ankle as tolerated. Chagne positions frequently. You may place all of your weight on the leg in the cast. Dressing:?Keep the cast clean and dry. Check the edges of the cast for any skin irritation or breakdown and reinforce with gauze or other soft material as needed. Reposition frequently. Medications: - You should take Tylenol and anti-inflammatory Celebrex as your primary pain control medications.? If the Celebrex is too expensive or not covered, please call the office for another alternative (Advil/Ibuprofen or Naproxen/Aleve) - You have been prescribed a stronger pain medication Tramadol for breakthrough pain, take as needed as prescribed. - You will be taking your home dose of Eliquis and Aspirin for DVT prevention unless instructed otherwise. - If you have constipation you should take Colace (which has been prescribed) or Miralax (which is available [id number]).? It takes most people 3-4 days to have a bowel movement. Follow-up:?2-3 weeks If you have any acute concerns or questions, please do not hesitate to contact the office at [phone].? You may contact Dr. Anthony with any questions after hours through the hospital at [phone] or on his cell phone at [phone]. 1. Encounter Date and Reason I certify that Tra Brothers III was seen by Chang Anthony MD on 09/30/22 and that I had a [id number] encounter with this patient that meets the physician face to face encounter requirements. 2. Clinical Findings Supporting Skilled Need and Homebound Status I certify that home health services are medically necessary, include either intermittent residential and/or physical/speech therapy, and that this patient is homebound in that absences from the home require considerable and taxing effort and are infrequent or of short duration, or are attributable to the need to receive medical care. [X] (a) Attached documentation from encounter provides clinical findings supporting skilled need and homebound status (including what assistance patient requires to leave the home). The encounter with the patient was in whole, or in part, for the following medical condition, which is the primary reason for home health care: Quad rupture of left TKA Senior Living: Physical Therapy: Erwin will benefit from home health physical therapy and Occupational Therapy. He is notably deconditioned in general. He is recovering from a recurrent quadriceps rupture from frequent falls after knee replacement. He is weightbearing as tolerated with the left leg in an extension cast. Focus should be on strengthening his bilateral upper extremities and right lower extremity, improving independence and stability with transfers, performing appropriate skin checks at cast edge. Speech Therapy: Homebound: Erwin he is unable to leave his home unassisted due to significant weakness limitations from his injury and surgery. 3. Certification and Authentication I certify that I composed the above information based on my clinical judgement relating to this patient's medical condition and, if applicable, clinical findings communicated to me by the NPP or inpatient physician who performed the Home Health Referral. All further orders will be obtained through Dr. Anthony Referrals: Chang Anthony MD [ [facility] STAFF PHYSICIAN] - Activity:: WBAT with knee in cast Equipment/Supplies:: Lift Chair, Raised Toilet Diet:: As Tolerated Discharge Orders Discharge Orders: Discharge Order (Routine); Ordered 09/30/22 Ordered By: Chang Anthony DS: Summary Time Spent with Patient providing and/or coordinating discharge services: Less than 30 minutes Status at Discharge Functional status at discharge: uses cane/walker Overall status at discharge: patient is progressing back to baseline Mental Status: mental status grossly normal Speech and Movement: speech and movement normal Mood: congruent mood Affect: normal affect Exam Narrative Exam Narrative: Sitting up in bed. NAD. AAOx3 Cast on LLE in good position. No apparent skin breakdown or irritation at proximal or distal ends. It is tight aroudn the ankle, lateral and medial malleoli although with padding. No significnat pedal edema. +ADF/APF/EHL/FHL SILT DP/SP/Tib. Psych Mental Status: mental status grossly normal Speech and Movement: speech and movement normal Mood: congruent mood Affect: normal affect DS: Data Vitals/I&O Vitals and I&O: Intake & Output 09/24/22 09/24/22 09/25/22 11:59 23:59 11:59 Weight 186 lb 1.122 oz 186 lb 1.122 oz Data Completed and Pending Labs on day of discharge: Labs from last 24 hours 09/25/22 11:30 COVID-19 Source Pending SARS-CoV-2 (PCR) Pending [facility] All Active Problems (Updated 09/27/22 @ 12:41 by Chang Anthony MD) Chronic cough (Acute) Atrial fibrillation (Chronic) Bigeminal rhythm (Acute) Depression (Chronic) DVT prophylaxis (Acute) Advance directive discussed with patient (Acute) De Quervain's tenosynovitis, left (Acute) Steroid injection: 06/26/2020, 02/21/2021 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 (Acute) Laceration of left index finger (Acute) Fracture of distal phalanx of left index finger (Acute) De Quervain's tenosynovitis, right (Acute) Injection: 06/13/2021; 01/24/2021 Pes planus of left foot (Acute) Biceps tendinitis of left upper extremity (Acute) Bursitis of shoulder, left (Acute) Hyponatremia (Chronic) CHF (congestive heart failure) (Acute) Anemia (Chronic) Contusion of leg, right (Acute) History of total left knee replacement (TKR) (Acute 06/12/22) Rupture of left quadriceps muscle (Acute) Medical History (Updated 09/27/22 @ 12:41 by Chang Anthony MD) Bilateral carotid artery stenosis CAD (coronary artery disease) Cardiomyopathy CKD (chronic kidney disease) 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 Heart palpitations None recently (05/28/22) History of non-ST elevation myocardial infarction (NSTEMI) November 2017 HLD (hyperlipidemia) HTN (hypertension) with goal to be determined Hx of sinusitis Hyperpiesia Hypertension Surgical History (Updated 09/25/22 @ 11:50 by Gena Ball RN) History of heart artery stent History of revision of total replacement of right knee joint Right TKA - [place] (2003) 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) Hx of cataract surgery Hx of rhinoplasty Hx of total knee arthroplasty LEFT S/P ORIF (open reduction internal fixation) fracture Right distal femur fracture S/P tendon repair 09/15/22 Status post laparoscopic cholecystectomy (~01/2022) Status post left foot surgery (09/17/21) [facility] Social History Smoking/Tobacco Use Status: Former Tobacco Use Quit Date: 08/18/91 Smoking risk assessment performed?: Yes Alcohol Intake: former Substance use type: does not use Do you feel safe at home: Yes Do you feel safe in your relationship?: Yes Time Spent with Patient Time Spent with Patient: <45 minutes Time was spent: obtaining and/or reviewing separately otained hiistory, ordering medications,tests, procedures and counseling the patient
--- NOTE | 2022-09-30 11:23 | PDOC.CMDIS ---
- If Service Date Differs Date of service: 09/30/22 Time of Service: 11:23 LACE Index Scoring Tool - Questions: Length of Stay (in days): 4 - 6 Acuity (Admit via E.D.?): No Comorbidities: Previous M.I., Liver or Renal Disease E.D. Visits: 2 - Answers: Total Score: 11 Risk of Readmission: High Risk Care Management Discharge Reason for Hospitalization: Quad rupture of left TKA Discharge Plan: Tra Hood returned home today with new orders for HH PT, OT. His drove him home via private vehicle. He will follow up with Ortho and his discharge plan of care. Patient/Family Education Needs: Review discharge instructions and limitations, discussion of self care needs including ask me three. Services Needed at Discharge: Home Health Care Services (HH PT,OT)
--- NOTE | 2022-10-03 09:00 | PT.INDS ---
Date of service: 09/30/22 PT Notes Visit Reasons: Quad rupture of left TKA Physical Therapy Inpatient Discharge Summary Date: 09/30/2022 Dates of service: 10/06/2022 through 09/30/2022 This is a clinical summary of care provided for the duration of dates listed above. No charge was made in the completion of this documentation. Referring Doctor: AUTUMN Hart PT Orders: PT CONSULT: S/P Ortho Surgery.? WBAT with leg in full extensio in splint Precautions: Fall. Standard.? WBAT on L LE with knee in full extension at all times. Patient Profile/Admitting Diagnosis: Erwin is an 81-year-old male patient with diagnosis of ruptured L quads tendon and medial retinaculum of L knee S/P repair on postoperative day 1.? Patient is S/P L quadriceps tendon repair on 09/10/2022 and S/P L TKA in 06/12/2022.? PMHX: All Active Problems?(Updated 09/10/22 @ 16:55 by Chang Anthony MD) Rupture of left quadriceps muscle (Acute) History of total left knee replacement (TKR) (Acute 06/12/22) Contusion of leg, right (Acute) Anemia (Chronic) CHF (congestive heart failure) (Acute) Hyponatremia (Chronic) Bigeminal rhythm (Acute) Depression (Chronic) DVT prophylaxis (Acute) Advance directive discussed with patient (Acute) De Quervain's tenosynovitis, left (Acute) Steroid injection: 06/26/2020, 02/21/2021 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 (Acute) Laceration of left index finger (Acute) Fracture of distal phalanx of left index finger (Acute) De Quervain's tenosynovitis, right (Acute) Injection: 06/13/2021; 01/24/2021es planus of left foot (Acute) Biceps tendinitis of left upper extremity (Acute) Bursitis of shoulder, left (Acute) Medical History? 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 The living room on the main floor has been set up to be his sleeping area so he does not need to deal with steps.? reports that she helped with walking using gait belt,? FWW, and wheelchair follow prior to admission. Equipment Owned/DME: FWW, SPC Subjective: NT. See most recent [employer] notes. Objective: General Observation: NT. See most recent [employer] notes. Mental Status: NT. See most recent [employer] notes. Vital signs:? NT. See most recent [employer] notes. Pain: NT. See most recent [employer] notes. ROM: Right Lower Extremity: Hip flexion WFL. Hip abduction WFL. Knee flexion WFL. Ankle dorsiflexion to neutral only. Ankle plantarflexion WFL. Left Lower Extremity: Hip and knee NT.? Patient did demonstrate some bending at the about 30-40 degrees with sitting at edge of bed.? Ankle WFL. Strength: Right Lower Extremity: Hip flexors 4/5. Hip abductors 4/5. Knee flexors 4/5. Knee extensors 4-/5. Ankle dorsiflexors 3-/5. Ankle plantarflexors 4-/5. Left Lower Extremity: NT Sensation: Intact as to pain and light pressure in bilateral lower extremities BED MOBILITY/TRANSFERS? Sit-supine: I with HOB flat Supine-sit: I with HOB flat Sit-stand: SBA ? Stand-sit: SBA ? GAIT? Assistive Device: FWW ? Weight bearing: WBAT L Assist: SBA ? Distance:? 5' + 60' Deviation: Step-to gait pattern, slightly anteroflexed posture, mild SOB Stairs: Not applicable.? Deferred. Balance: Static Sitting: Normal Dynamic Sitting: Good Static Standing: Fair Dynamic Standing: Fair Assessment: Patient presents with clinical signs and symptoms consistent with current/admitting diagnoses that have resulted to mobility limitations, gait instability, generalized weakness, and overall ADL decline as demonstrated by the following impairment level findings: 1.? Decreased strength to L quad 2.? Impaired standing balance 3.? Impaired activity tolerance 4.? Unable to fully extend knee? during movement transitions Impairments are contributing to the following functional limitations: 1.? Decline in bed mobility skills 2.? Decline in transfer skills 3.? Difficulty with ambulation without assistive device and physical assistance 4.? Increased completion time for mobility ADL performance 5.? Increased risk for falls 6.? Difficulty with managing steps alone safely Goals: Goals X1 week 1. Supine-Sit independent with knee in full extension throughout using leg search planner as needed MET 2. Sit-Supine independent with knee in full extension throughout using leg search planner as needed MET 3. Sit-Stand contact guard assist with knee in full extension throughout using leg search planner as needed MET 4. Stand-Sit contact guard assist with knee in full extension throughout MET 5. Bed-Chair contact guard assist with knee in full extension throughout MET 6. Chair-Bed contact guard assist with knee in full extension throughout MET 7. Supervision with gait on level surface with use of FWW for at least 75 feet with L knee in full extension throughout NOT MET DISCHARGE RECOMMENDATIONS: [] ? Home with no services [] [] ? Home with services [specify] [] ? Home with outpatient PT [] [] ? SNF for continued rehabilitation [] [] ? Longterm Care [] [] ? SNF versus LTC based on ability to participate and progress [] [X]? PT vs SNF depending on needed assistance with mobility to maintain extension in L knee and on progress towards goals TREATMENT CODE/TIME: NC Thank you for the opportunity to participate in the care of this patient. Flory Whyte PT, DPT, CLT [facility] [place], [place]
== END 2022-09-30 10:09 | disposition home health service (06) ==
LOC: MS 16:56
PROVIDERS: Admitting Provider Student in an Organized Health Care Education/Training Program; PCP Family Medicine; Visit Provider Student in an Organized Health Care Education/Training Program
PROC: (CPT 27385; principal; 2022-09-25 13:15)
DX: S76.112A Strain of left quadriceps muscle, fascia and tendon, initial encounter (principal); I65.23 Occlusion and stenosis of bilateral carotid arteries; I25.10 Atherosclerotic heart disease of native coronary artery without angina pectoris; I42.9 Cardiomyopathy, unspecified; N18.9 Chronic kidney disease, unspecified; I25.2 Old myocardial infarction; E78.5 Hyperlipidemia, unspecified; Z20.822 Contact with and (suspected) exposure to COVID-19; Z95.5 Presence of coronary angioplasty implant and graft; Z96.653 Presence of artificial knee joint, bilateral; D64.9 Anemia, unspecified; I50.9 Heart failure, unspecified; I13.0 Hypertensive heart and chronic kidney disease with heart failure and stage 1 through stage 4 chronic kidney disease, or unspecified chronic kidney disease; E87.1 Hypo-osmolality and hyponatremia; F32.A Depression, unspecified; X58.XXXA Exposure to other specified factors, initial encounter
CPT/HCPCS: 27385; 36415; 80048; 85027; 87635; 96365; 96366; 96375; 97162; 97530; 71046; G0378; J0690; J1100; J1885; J2370; J2405; J2704; J3010; J8540

== ENCOUNTER → 2022-10-10 10:41 | Outpatient (BNVA) | payer MEDICARE, SELFPAY | PROVIDERS: PCP Family Medicine; Referring Provider Family Medicine; Visit Provider Student in an Organized Health Care Education/Training Program | DX: S76.112D Strain of left quadriceps muscle, fascia and tendon, subsequent encounter (principal); X58.XXXD Exposure to other specified factors, subsequent encounter; Z96.652 Presence of left artificial knee joint ==

== ENCOUNTER → 2022-10-31 11:21 | Outpatient (BNVA) | payer MEDICARE, SELFPAY | PROVIDERS: PCP Family Medicine; Referring Provider Family Medicine; Visit Provider Student in an Organized Health Care Education/Training Program | DX: Z47.1 Aftercare following joint replacement surgery (principal); Z96.652 Presence of left artificial knee joint ==

== ENCOUNTER → 2022-11-28 11:20 | Outpatient (BNVA) | payer MEDICARE, SELFPAY | PROVIDERS: PCP Family Medicine; Referring Provider Family Medicine | DX: S76.112D Strain of left quadriceps muscle, fascia and tendon, subsequent encounter (principal); X58.XXXD Exposure to other specified factors, subsequent encounter ==

== ENCOUNTER 2022-12-16 15:09 | Outpatient (REF) | payer MEDICARE, SELFPAY ==
[2022-12-16 15:07] LABS: Abs Immature Grans 0.03 10^3/uL (0.0-0.06); Absolute Basophil Count 0.05 10^3/uL (0.0-0.2); Absolute Eosinophil Count 0.08 10^3/uL (0.0-0.7); Absolute Monocyte Count 0.65 10^3/uL (0.1-0.8); Absolute Neutrophil Count 3.71 10^3/uL (1.2-6.7); Basophils % 0.8; Eosinophils % 1.3; HCT 43.3 % (40.0-50.0); HGB 14.2 g/dL (13.5-17.5); Immature Grans % 0.5; Lymphocytes % 27.3; MCH 29.7 pg (27.0-33.0); MCHC 32.8 % (32.0-36.0); MCV 91 fL (80-95); MPV 10.2 fL (8.0-11.0); Monocytes % 10.5; Neutrophils % 59.6; Platelet Count 162 10^3/uL (130-400); RBC 4.78 10^6/uL (4.36-5.78); RDW 14.6 % (11.8-14.1); WBC 6.22 10^3/uL (4.4-10.8)
[2022-12-16 15:51] LABS: ALT 22 U/L (16-63); AST 21 U/L (15-37); Albumin 3.3 g/dL (3.4-5.0); Alkaline Phosphatase 111 U/L (46-116); Anion Gap 9.2 mmol/L (3-11); BUN 29 mg/dL (7-18); Bilirubin, Total 0.9 mg/dL (0.2-1.0); CO2 25.8 mmol/L (21.0-32.0); CREATININE 1.9 mg/dL (0.70-1.30); Calcium 8.4 mg/dL (8.5-10.1); Chloride 103 mmol/L (98-107); Estimated GFR 34.57 (mL/min/1.73m2); Glucose 72 mg/dL (74-106); Potassium 4.3 mmol/L (3.5-5.1); Sodium 138 mmol/L (136-145); Total Protein 6.5 g/dL (6.4-8.2)
[2022-12-16 17:14] LABS: FREE T4 1.02 ng/dL (0.76-1.46)
[2022-12-20 16:30] LABS: Testosterone, Free 5.29 ng/dL (2.88-10.5); Testosterone, Total 254 ng/dL (240-950)
== END 2022-12-16 15:10 | disposition home or self-care (01) ==
LOC: NCHCN 15:09
PROVIDERS: PCP Family Medicine; Visit Provider Family Medicine
DX: R53.1 Weakness (principal); N40.1 Benign prostatic hyperplasia with lower urinary tract symptoms; E29.1 Testicular hypofunction; I10 Essential (primary) hypertension
CPT/HCPCS: 80053; 84402; 84403; 84439; 84443; 85025

== ENCOUNTER 2022-12-17 14:05 | Emergency (ER) | payer MEDICARE, SELFPAY ==
[2022-12-17 14:10] VITALS: BP 155/99; PULSE 84; RESP 18; TEMP 36.2; O2SAT 93
[2022-12-17] MEDS: Oxymetazolone 0.05% SPRAY 15 ML BTL (14:27)
--- NOTE | 2022-12-17 14:43 | ED.GENADUL_ITS ---
Discharge Plan Disposition Patient Disposition: Home Condition: Stable Discharge Details Clinical Impression: Acute anterior epistaxis Primary Care Provider: Karo Otero ED Provider: Chiquita Dunbar Home Meds and New Rx's Prescriptions: New amoxicillin-pot clavulanate 875-125 mg tablet 1 tab PO Q12H 5 Days Qty: 10 0RF Continued Eliquis 2.5 mg tablet 2.5 mg PO BID temazepam [Restoril] 15 mg capsule 15 mg PO QHS valsartan 40 mg tablet 320 mg PO DAILY hydroxyzine HCl 10 mg tablet 10 mg PO BID PRN glucosamine-chondroitin 900 mg tablet PO bupropion HCl 150 MG tablet extended release 12 hr 150 mg PO BID multivitamin 1 EACH capsule 1 tab PO DAILY atorvastatin 80 mg Tablet 80 mg PO .Q PM loratadine 10 mg Capsule 10 mg PO DAILY docusate sodium [Colace] 100 mg capsule 100 mg PO BID Qty: 30 0RF gabapentin 300 mg capsule 300 mg PO QHS Qty: 14 0RF Rx Instructions: Take one tablet at bedtime nitroglycerin 0.4 MG tablet, sublingual 1 tab PO PRN PRN Patient Comments: pt using when doing something strenous cholecalciferol (vitamin D3) [Vitamin D3] 25 mcg (1,000 unit) Tablet 25 mcg PO DAILY fluticasone propionate 50 mcg/actuation [place],Suspension 1 spray INTRANASAL BID Rx Instructions: administer into each nostril testosterone 100 mg/mL Suspension 2 mg IM Q14D Patient Comments: pt gets every other week. Pt. unsure of the brand metoprolol succinate 25 mg tablet extended release 24 hr 25 mg PO HS Qty: 30 0RF ferrous sulfate 27 mg iron Tablet 27 mg PO DAILY tramadol 50 mg tablet 50 mg PO BID PRNQty: 10 0RF acetaminophen 500 mg tablet 1,000 mg PO Q8H PRN Qty: 90 0RF Rx Instructions: Take two tablets up to every 8 hours as needed for pain furosemide 20 mg tablet 20 mg PO DAILY Patient Comments: TAKE 1TABLET BY MOUTH EVERY MORNING Glucosamine Chondroitin 550-30-1 mg Capsule PO QDAY Discharge Instructions Instructions: Nosebleed (ED) Additional Instructions: Please keep packing in place until you can follow-up with your nose throat specialist for reassessment. Please take antibiotics to prevent any secondary infection from long duration of nasal packing in place. If you notice any significant worsening of bleeding, abnormal bruising, urinating blood or other concerns return immediately to the emergency department for reassessment. Referrals: [facility] [Provider Group] - 5 days (Please call the ENT office tomorrow afternoon for arrangement of follow-up appointment within 5 days or as directed by their office.) Discharge Data Discharge Date/Time-TO BE ENTERED AT DEPARTURE: 12/17/22 16:47 Medical Decision Making <Dewey Hameed NP - Last Filed: 12/18/22 16:27> Patient presenting to the emergency department for acute epistaxis. Patient states he stood up this morning and started having bleeding from his right nare. Patient denies any injury or trauma. Patient is anticoagulated due to more recent onset of A-fib and has only been on anticoagulants for the last couple months. Physical exam shows acute epistaxis. Bleeding is somewhat controlled with anterior pressure so I suspect more of an anterior source. Clots were expelled via patient blowing his nose and we did apply Afrin and reapplied nasal clamp. After period of monitoring patient continued to have bleeding from his right nare. Due to this and already being anticoagulated 7.5 Rhino Rocket was placed with 4.5 mL's of air instilled for appropriate amount of pressure. Patient was able to tolerate this well. Labs were checked due to patient stating some lightheadedness and that symptoms started approximately 6 hours prior to arrival. Reviewed labs and patient did have hemoglobin of 13.2 in in comparison to previous labs that were up drawn yesterday there is some concern given a one- point drop in hemoglobin but I do not feel that patient requires transfusion since he is not tachycardic and otherwise asymptomatic along with not hypoxic. Medical Records Medical records reviewed: Yes I reviewed the patient's medical records. Medical records narrative: Reviewed labs performed yesterday <Chiquita Dunbar NP - Last Filed: 12/17/22 18:16> Patient presenting to the emergency department for acute epistaxis. Patient states he stood up this morning and started having bleeding from his right nare. Patient denies any injury or trauma. Patient is anticoagulated due to more recent onset of A-fib and has only been on anticoagulants for the last couple months. Physical exam shows acute epistaxis. Bleeding is somewhat controlled with anterior pressure so I suspect more of an anterior source. Clots were expelled via patient blowing his nose and we did apply Afrin and reapplied nasal clamp. After period of monitoring patient continued to have bleeding from his right nare. Due to this and already being anticoagulated 7.5 Rhino Rocket was placed with 4.5 mL's of air instilled for appropriate amount of pressure. Patient was able to tolerate this well. Labs were checked due to patient stating some lightheadedness and that symptoms started approximately 6 hours prior to arrival. Reviewed labs and patient did have hemoglobin of 13.2 in in comparison to previous labs that were up drawn yesterday there is some concern given a one- point drop in hemoglobin but I do not feel that patient requires transfusion since he is not tachycardic and otherwise asymptomatic along with not hypoxic. 1540: SJ: Care assumed from provider (Kash Hameed NP) Please see their initial HPI, PE, and documentation. Discussed patient details and case and pending workup and disposition. Patient is hemodynamically stable, and alert and oriented. At the time of signout awaiting labs. CBC shows hemoglobin 13.2 hematocrit 46, RDW 14.6, PT 15.9 INR 1.6 PTT 33.5, CMP does show some elevation of the BUN and creatinine at 39 and 1.8 consistent with patient's baseline. Patient is complaining that there is a little bit of blood leaking around the Rhino Rocket. I did instill another milliliter of air. Patient did tolerate this well. Patient instructed to not take the Eliquis tonight he verbalized understanding. Patient was discharged with family, ambulatory with minimal assistance upon discharge. Slightly hypertensive however he has not taking his blood pressure medication usually takes it at nighttime. I did encourage him to take his normal medication. Lab Data Lab results reviewed: Yes I reviewed the patient's lab results. Labs: Laboratory Tests Range/Units 12/17/22 12/17/22 12/17/22 15:15 15:15 15:15 WBC (4.4-10.8) 10^3/uL 6.90 RBC (4.36-5.78) 10^6/uL 4.47 Hgb (13.5-17.5) g/dL 13.2 L Hct (40.0-50.0) % 40.6 MCV (80-95) fL 91 MCH (27.0-33.0) pg 29.5 MCHC (32.0-36.0) % 32.5 RDW (11.8-14.1) % 14.6 H Plt Count (130-400) 10^3/uL 156 MPV (8.0-11.0) fL 10.3 Immature Gran % 0.6 Neutrophils % 55.4 Lymphocytes % 32.3 Monocytes % 8.8 Eosinophils % 1.9 Basophils % 1.0 Nucleated RBC % (0.0-0.3) % 0.0 Absolute Neutrophils (1.2-6.7) 10^3/uL 3.82 Absolute Lymphocytes (1.2-3.4) 10^3/uL 2.23 Absolute Monocytes (0.1-0.8) 10^3/uL 0.61 Absolute Eosinophils (0.0-0.7) 10^3/uL 0.13 Absolute Basophils (0.0-0.2) 10^3/uL 0.07 PT (9.3-11.0) sec 15.9 H INR (0.9-1.1) 1.6 H APTT (21.5-31.9) sec 33.5 H Sodium Cancelled Potassium Cancelled Chloride Cancelled Carbon Dioxide Cancelled Anion Gap Cancelled BUN Cancelled Creatinine Cancelled Est GFR (CKD-EPI 2020) Cancelled Glucose Cancelled Calcium Cancelled Total Bilirubin Cancelled AST Cancelled ALT Cancelled Alkaline Phosphatase Cancelled Total Protein Cancelled Albumin Cancelled Range/Units 12/17/22 15:50 WBC (4.4-10.8) 10^3/uL RBC (4.36-5.78) 10^6/uL Hgb (13.5-17.5) g/dL Hct (40.0-50.0) % MCV (80-95) fL MCH (27.0-33.0) pg MCHC (32.0-36.0) % RDW (11.8-14.1) % Plt Count (130-400) 10^3/uL MPV (8.0-11.0) fL Immature Gran % Neutrophils % Lymphocytes % Monocytes % Eosinophils % Basophils % Nucleated RBC % (0.0-0.3) % Absolute Neutrophils (1.2-6.7) 10^3/uL Absolute Lymphocytes (1.2-3.4) 10^3/uL Absolute Monocytes (0.1-0.8) 10^3/uL Absolute Eosinophils (0.0-0.7) 10^3/uL Absolute Basophils (0.0-0.2) 10^3/uL PT (9.3-11.0) sec INR (0.9-1.1) APTT (21.5-31.9) sec Sodium 139 Potassium 4.8 Chloride 106 Carbon Dioxide 26.3 Anion Gap 6.7 BUN 39 H Creatinine 1.8 H Est GFR (CKD-EPI 2020) 36.89 Glucose 93 Calcium 8.6 Total Bilirubin 0.6 AST 19 ALT 21 Alkaline Phosphatase 107 Total Protein 6.6 Albumin 3.1 L HPI <Dewey Hameed NP - Last Filed: 12/18/22 16:27> General Mode of arrival: ambulatory . Date/Time Provider Initiated Documentation: 12/17/22 14:05 . Limitations to Documentation: no limitations . Information obtained by: patient and RN notes reviewed . History of Present Illness 82 year old M presents to the emergency department with the chief complaint of Epistaxis, described as moderate, Quality is described as other (Denies pain discomfort or trauma), Patient started experiencing this hour(s) (6) and it has been constant. No relieving factors improve symptom(s), Other factors that worsen symptoms (Standing from sitting position) . Patient notes no other symptoms.. Patient did receive the following treatments prior to arrival, none Related Data Home Medications Medication Instructions Recorded Confirmed bupropion HCl 150 mg tablet,12 hr 150 mg PO BID 11/18/17 12/18/22 sustained-release multivitamin 1 tab PO DAILY 11/18/17 12/18/22 nitroglycerin 0.4 mg sublingual 1 tab PO PRN PRN 01/07/18 12/18/22 tablet atorvastatin 80 mg tablet 80 mg PO .Q PM 05/31/19 12/18/22 loratadine 10 mg capsule 10 mg PO DAILY 05/03/21 12/18/22 temazepam 15 mg capsule (Restoril) 15 mg PO QHS 05/25/21 12/18/22 cholecalciferol (vitamin D3) 25 25 mcg PO DAILY 08/07/21 12/18/22 mcg (1,000 unit) tablet (Vitamin D3) valsartan 40 mg tablet 320 mg PO DAILY 05/28/22 12/18/22 fluticasone propionate 50 1 spray intranasal BID 06/12/22 12/18/22 mcg/actuation nasal spray,suspension testosterone 100 mg/mL 2 mg IM Q14D 06/12/22 12/18/22 intramuscular suspension metoprolol succinate 25 mg 25 mg PO HS #30 tabs 07/10/22 12/18/22 tablet,extended release 24 hr hydroxyzine HCl 10 mg tablet 10 mg PO BID PRN 09/05/22 12/18/22 docusate sodium 100 mg capsule 100 mg PO BID #30 caps 09/10/22 12/18/22 (Colace) gabapentin 300 mg capsule 300 mg PO QHS #14 caps 09/10/22 12/18/22 apixaban 2.5 mg tablet (Eliquis) 2.5 mg PO BID 09/23/22 12/18/22 ferrous sulfate 27 mg iron tablet 27 mg PO DAILY 09/25/22 12/18/22 acetaminophen 500 mg tablet 1,000 mg PO Q8H PRN pain #90 tabs 09/30/22 12/18/22 tramadol 50 mg tablet 50 mg PO BID PRN #10 tabs 09/30/22 12/18/22 furosemide 20 mg tablet 20 mg PO DAILY 10/31/22 12/18/22 antiarthritic combination no.2 900 mg PO 11/28/22 11/28/22 mg tablet (glucosamine-chondroitin) amoxicillin 875 mg-potassium 1 tab PO Q12H 5 days #10 tabs 12/17/22 12/18/22 clavulanate 125 mg tablet glucosamine sulf dipot cap PO QDAY 12/17/22 chlr,msm,chond 550 mg-C 30 mg-gabriella 1 mg capsule (Glucosamine Chondroitin) Previous Rx's Medication Instructions Recorded metoprolol succinate 25 mg 25 mg PO HS #30 tabs 07/10/22 tablet,extended release 24 hr docusate sodium 100 mg capsule 100 mg PO BID #30 caps 09/10/22 (Colace) gabapentin 300 mg capsule 300 mg PO QHS #14 caps 09/10/22 acetaminophen 500 mg tablet 1,000 mg PO Q8H PRN pain #90 tabs 09/30/22 tramadol 50 mg tablet 50 mg PO BID PRN #10 tabs 09/30/22 amoxicillin 875 mg-potassium 1 tab PO Q12H 5 days #10 tabs 12/17/22 clavulanate 125 mg tablet Allergies Allergy/AdvReac Type Severity Reaction Status Date / Time terazosin Allergy Severe Unknown Verified 12/18/22 10:32 oxycodone AdvReac Intermediate Nausea Verified 12/18/22 10:32 pollen AdvReac Intermediate sneezing, Uncoded 12/18/22 10:32 congestion General Stated Complaint: Epistaxis JAMEE: 4 Review of Systems <Dewey Hameed NP - Last Filed: 12/18/22 16:27> Constitutional Constitutional: Denies chills, Denies fever(s) and Denies headache(s) ENT Ears, Nose, Mouth, and Throat: Reports system reviewed and no additional complaints, except as documented, Reports as per HPI, Denies dizziness, Denies headache(s) and Reports epistaxis Cardiovascular Cardiovascular: Denies chest pain and Reports lightheadedness Gastrointestinal Gastrointestinal: Denies melena, Denies hematochezia and Denies hematemesis Genitourinary Genitourinary: Denies hematuria Integumentary/Breasts Skin/Breast: Denies unusual bruising Neurologic Neurologic: Denies dizziness and Denies headache(s) PFSH <Dewey Hameed NP - Last Filed: 12/18/22 16:27> All Active Problems (Updated 12/18/22 @ 11:43 by [employer] [place]) Acute anterior epistaxis (Acute) Epistaxis (Acute) Atrial fibrillation (Chronic) Bigeminal rhythm (Acute) Depression (Chronic) DVT prophylaxis (Acute) Advance directive discussed with patient (Acute) De Quervain's tenosynovitis, left (Acute) Steroid injection: 06/26/2020, 02/21/2021 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 (Acute) Laceration of left index finger (Acute) Fracture of distal phalanx of left index finger (Acute) De Quervain's tenosynovitis, right (Acute) Injection: 06/13/2021; 01/24/2021 Pes planus of left foot (Acute) Biceps tendinitis of left upper extremity (Acute) Bursitis of shoulder, left (Acute) Hyponatremia (Chronic) Anemia (Chronic) Contusion of leg, right (Acute) History of total left knee replacement (TKR) (Acute 06/12/22) Rupture of left quadriceps muscle (Acute) s/p repair of left quad/retinacular repair x2 DOS: 09/25/22; 09/10/22 Medical History Bilateral carotid artery stenosis CAD (coronary artery disease) Cardiomyopathy CHF (congestive heart failure) Chronic cough CKD (chronic kidney disease) 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 Heart palpitations None recently (05/28/22) History of non-ST elevation myocardial infarction (NSTEMI) November 2017 HLD (hyperlipidemia) HTN (hypertension) with goal to be determined Hx of sinusitis Hyperpiesia Hypertension Surgical History History of heart artery stent History of revision of total replacement of right knee joint Right TKA - [place] (2003) Two-stage revision for infection -[place] (2008) Hx of cataract surgery Hx of rhinoplasty Hx of total knee arthroplasty LEFT S/P ORIF (open reduction internal fixation) fracture Right distal femur fracture S/P tendon repair 09/15/22 Status post laparoscopic cholecystectomy (~01/2022) Status post left foot surgery (09/17/21) [facility] Social History Smoking/Tobacco Use Status: Former Tobacco Use Quit Date: 08/18/91 Smoking risk assessment performed?: Yes Alcohol Intake: former Substance use type: does not use Do you feel safe at home: Yes Do you feel safe in your relationship?: Yes Exam <Dewey Hameed NP - Last Filed: 12/18/22 16:27> Const General: cooperative, no acute distress and not ill appearing Orientation: alert, awake and oriented x3 HENMT Head: normal to inspection, normocephalic and atraumatic General nose exam: epistaxis on the right active bleeding and source not visualized Face and sinus: normal facial exam Mouth: oral mucosae normal, moist mucous membranes and other (Noted dried blood in the oral cavity but no bleeding sources noted) Throat: posterior oropharynx normal Resp Effort & Inspection: normal respiratory effort, able to speak in complete sentences and no respiratory distress Skin General skin exam: no rashes or lesions noted Neuro General: patient alert, patient awake, patient oriented x3, moves all extremities and no focal motor deficits Sensory Exam: no sensory deficits noted Course <Dewey Hameed NP - Last Filed: 12/18/22 16:27> Vital Signs Vital signs: Vital Signs Temperature 36.2 C L 12/17/22 14:10 Pulse 84 12/17/22 14:10 Respiratory Rate 18 12/17/22 14:10 Blood Pressure 155/99 H 12/17/22 14:10 Pulse Oximetry 93 12/17/22 14:10 Temperature 36.2 C L 12/17/22 14:10 Pulse 84 12/17/22 14:10 Respiratory Rate 18 12/17/22 14:10 Blood Pressure 155/99 H 12/17/22 14:10 Blood Pressure Position Sitting 12/17/22 14:10 Pulse Oximetry 93 12/17/22 14:10 Oxygen Delivery Method Room Air 12/17/22 14:10 Oxygen Flow Rate 0 12/17/22 14:10 Pain Level 0 12/17/22 14:10 Procedures <Dewey Hameed NP - Last Filed: 12/18/22 16:27> Epistaxis Control Time Out Performed: Yes Nostril: right Nose Prepped With: oxymetazoline Direct Inspection: unable to visualize Clots Removed by: blowing nose Cautery Used: none Device Inserted: hemostatic balloon Device Size: 7 Patient Tolerated Procedure: well and no complications Sign Out <Dewey Hameed NP - Last Filed: 12/18/22 16:27> Sign Out Data: Sign Out Comment: Patient pending reassessment for epistaxis and review of labs prior to discharge. Suspect discharge disposition. Last updated by Dewey Hameed NP at 12/17/22 15:41
[2022-12-17 15:20] LABS: Abs Immature Grans 0.04 10^3/uL (0.0-0.06); Absolute Basophil Count 0.07 10^3/uL (0.0-0.2); Absolute Eosinophil Count 0.13 10^3/uL (0.0-0.7); Absolute Lymphocyte Count 2.23 10^3/uL (1.2-3.4); Absolute Monocyte Count 0.61 10^3/uL (0.1-0.8); Absolute Neutrophil Count 3.82 10^3/uL (1.2-6.7); Eosinophils % 1.9; HCT 40.6 % (40.0-50.0); HGB 13.2 g/dL (13.5-17.5); Immature Grans % 0.6; Lymphocytes % 32.3; MCH 29.5 pg (27.0-33.0); MCHC 32.5 % (32.0-36.0); MCV 91 fL (80-95); MPV 10.3 fL (8.0-11.0); Monocytes % 8.8; Neutrophils % 55.4; Platelet Count 156 10^3/uL (130-400); RBC 4.47 10^6/uL (4.36-5.78); RDW 14.6 % (11.8-14.1); RDW-SD 49.1 fL
[2022-12-17 15:37] VITALS: O2SAT 96
[2022-12-17 15:41] LABS: INR 1.6 (0.9-1.1); PTT Activated 33.5 sec (21.5-31.9); Prothrombin Time 15.9 sec (9.3-11.0)
[2022-12-17 16:00] VITALS: O2SAT 97
[2022-12-17 16:15] LABS: ALT 21 U/L (16-63); AST 19 U/L (15-37); Albumin 3.1 g/dL (3.4-5.0); Alkaline Phosphatase 107 U/L (46-116); Anion Gap 6.7 mmol/L (3-11); BUN 39 mg/dL (7-18); Bilirubin, Total 0.6 mg/dL (0.2-1.0); CO2 26.3 mmol/L (21.0-32.0); CREATININE 1.8 mg/dL (0.70-1.30); Calcium 8.6 mg/dL (8.5-10.1); Chloride 106 mmol/L (98-107); Estimated GFR 36.89 (mL/min/1.73m2); Glucose 93 mg/dL (74-106); Potassium 4.8 mmol/L (3.5-5.1); Sodium 139 mmol/L (136-145); Total Protein 6.6 g/dL (6.4-8.2)
--- NOTE | 2022-12-17 16:16 | NUR.NOTE ---
Nursing Note: Referral faxed to [facility] for nosebleed on anticoagulants w/7.[address]/ within 5 days or as available.
[2022-12-17 16:32] VITALS: BP 161/109; PULSE 76; O2SAT 95
[2022-12-17] MEDS: Amoxicillin 875/Clav. 125 TAB PO (16:39)
== END 2022-12-17 16:47 | disposition home or self-care (01) ==
PROVIDERS: Nurse Practitioner Family; Emergency Provider Registered Nurse Emergency; PCP Family Medicine
DX: R04.0 Epistaxis (principal); Z79.899 Other long term (current) drug therapy
CPT/HCPCS: 30901; 80053; 85025; 85610; 85730

== ENCOUNTER 2022-12-18 10:24 | Emergency (ER) | payer MEDICARE, SELFPAY ==
[2022-12-18 10:27] VITALS: BP 160/101; PULSE 81; RESP 16; TEMP 36.4; O2SAT 93
[2022-12-18 10:31] VITALS: BP 160/101; PULSE 82; O2SAT 93
[2022-12-18 10:46] VITALS: BP 140/90; PULSE 85; O2SAT 97
[2022-12-18 11:16] VITALS: BP 156/91; PULSE 59; O2SAT 97
[2022-12-18 11:31] VITALS: BP 155/82; PULSE 67; O2SAT 97
--- NOTE | 2022-12-18 11:38 | ED.GENADUL_ITS ---
Discharge Plan Disposition Patient Disposition: Home Discharge Details Clinical Impression: Epistaxis Primary Care Provider: Blanco Myles ED Provider: Melissa Al Home Meds and New Rx's Prescriptions: Continued Eliquis 2.5 mg tablet 2.5 mg PO BID temazepam [Restoril] 15 mg capsule 15 mg PO QHS valsartan 40 mg tablet 320 mg PO DAILY hydroxyzine HCl 10 mg tablet 10 mg PO BID PRN glucosamine-chondroitin 900 mg tablet PO bupropion HCl 150 MG tablet extended release 12 hr 150 mg PO BID multivitamin 1 EACH capsule 1 tab PO DAILY atorvastatin 80 mg Tablet 80 mg PO .Q PM loratadine 10 mg Capsule 10 mg PO DAILY docusate sodium [Colace] 100 mg capsule 100 mg PO BID Qty: 30 0RF gabapentin 300 mg capsule 300 mg PO QHS Qty: 14 0RF Rx Instructions: Take one tablet at bedtime nitroglycerin 0.4 MG tablet, sublingual 1 tab PO PRN PRN Patient Comments: pt using when doing something strenous cholecalciferol (vitamin D3) [Vitamin D3] 25 mcg (1,000 unit) Tablet 25 mcg PO DAILY fluticasone propionate 50 mcg/actuation [place],Suspension 1 spray INTRANASAL BID Rx Instructions: administer into each nostril testosterone 100 mg/mL Suspension 2 mg IM Q14D Patient Comments: pt gets every other week. Pt. unsure of the brand metoprolol succinate 25 mg tablet extended release 24 hr 25 mg PO HS Qty: 30 0RF ferrous sulfate 27 mg iron Tablet 27 mg PO DAILY tramadol 50 mg tablet 50 mg PO BID PRNQty: 10 0RF acetaminophen 500 mg tablet 1,000 mg PO Q8H PRN Qty: 90 0RF Rx Instructions: Take two tablets up to every 8 hours as needed for pain furosemide 20 mg tablet 20 mg PO DAILY Patient Comments: TAKE 1TABLET BY MOUTH EVERY MORNING Glucosamine Chondroitin 550-30-1 mg Capsule PO QDAY amoxicillin-pot clavulanate 875-125 mg tablet 1 tab PO Q12H 5 Days Qty: 10 0RF Discharge Instructions Instructions: Nosebleed (ED) Additional Instructions: Continue to skip doses of your Eliquis, may reinitiate tomorrow evening if the bleeding has stopped Make sure you continue to take your rate control medication for atrial fibrillation Use caution when bending over, do not set up quickly, you may continue to have s ome mild oozing from your nostril, this can be normal with a Rhino Rocket You should leave this in place for 4 days after this was initially Please return immediately should you have new or worsening complaints including weakness, dizziness Please follow-up with ENT to have this removed, if there is any issue with establishing appointment, please return to the emergency department Referrals: Karo Otero [ [facility] ST[facility]FF PHYSICIAN] - 1 day Discharge Data Discharge Date/Time-TO BE ENTERED AT DEPARTURE: 12/18/22 11:52 Medical Decision Making 82-year-old male presents with report of bleeding from Rhino Rocket site in right nare Has held his Eliquis States its been mild bleeding, he when he first woke up he had quite a bit of blood but with pressure it stopped completely After reviewing chart looks like patient only had 4.5 cc of air placed, we did add an additional 6 cc today, patient unfortunately was unable to tolerate any additional air placement No significant bleeding on reassessment We will keep packing in place until Friday, will hold Eliquis for 1 additional day and reassess Return precautions reviewed in detail and patient expressed understanding No evidence of hemodynamic instability,, no obvious reason to recheck CBC at this time, low concern for significant anemia, hemoglobin 13.2 and hematocrit of 48 on 01-07, labs reviewed from prior assessment Medical Records Medical records reviewed: Yes I reviewed the patient's medical records. Lab Data Lab results reviewed: Yes I reviewed the patient's lab results. HPI General Date/Time Provider Initiated Documentation: 12/18/22 10:25 . HPI Narrative: This 82-year-old male presents with report of persistent bleeding from right nare. States he had nasal packing yesterday and has been oozing slightly. He has held his Eliquis. He denies any weakness or dizziness. Denies any fever or chills. States that they were unable to fully inflate Rhino Rocket yesterday secondary to discomfort. Denies any additional complaints at this time. Related Data Home Medications Medication Instructions Recorded Confirmed bupropion HCl 150 mg tablet,12 hr 150 mg PO BID 11/18/17 12/18/22 sustained-release multivitamin 1 tab PO DAILY 11/18/17 12/18/22 nitroglycerin 0.4 mg sublingual 1 tab PO PRN PRN 01/07/18 12/18/22 tablet atorvastatin 80 mg tablet 80 mg PO .Q PM 05/31/19 12/18/22 loratadine 10 mg capsule 10 mg PO DAILY 05/03/21 12/18/22 temazepam 15 mg capsule (Restoril) 15 mg PO QHS 05/25/21 12/18/22 cholecalciferol (vitamin D3) 25 25 mcg PO DAILY 08/07/21 12/18/22 mcg (1,000 unit) tablet (Vitamin D3) valsartan 40 mg tablet 320 mg PO DAILY 05/28/22 12/18/22 fluticasone propionate 50 1 spray intranasal BID 06/12/22 12/18/22 mcg/actuation nasal spray,suspension testosterone 100 mg/mL 2 mg IM Q14D 06/12/22 12/18/22 intramuscular suspension metoprolol succinate 25 mg 25 mg PO HS #30 tabs 07/10/22 12/18/22 tablet,extended release 24 hr hydroxyzine HCl 10 mg tablet 10 mg PO BID PRN 09/05/22 12/18/22 docusate sodium 100 mg capsule 100 mg PO BID #30 caps 09/10/22 12/18/22 (Colace) gabapentin 300 mg capsule 300 mg PO QHS #14 caps 09/10/22 12/18/22 apixaban 2.5 mg tablet (Eliquis) 2.5 mg PO BID 09/23/22 12/18/22 ferrous sulfate 27 mg iron tablet 27 mg PO DAILY 09/25/22 12/18/22 acetaminophen 500 mg tablet 1,000 mg PO Q8H PRN pain #90 tabs 09/30/22 12/18/22 tramadol 50 mg tablet 50 mg PO BID PRN #10 tabs 09/30/22 12/18/22 furosemide 20 mg tablet 20 mg PO DAILY 10/31/22 12/18/22 antiarthritic combination no.2 900 mg PO 11/28/22 11/28/22 mg tablet (glucosamine-chondroitin) amoxicillin 875 mg-potassium 1 tab PO Q12H 5 days #10 tabs 12/17/22 12/18/22 clavulanate 125 mg tablet glucosamine sulf dipot cap PO QDAY 12/17/22 chlr,msm,chond 550 mg-C 30 mg-gabriella 1 mg capsule (Glucosamine Chondroitin) Previous Rx's Medication Instructions Recorded metoprolol succinate 25 mg 25 mg PO HS #30 tabs 07/10/22 tablet,extended release 24 hr docusate sodium 100 mg capsule 100 mg PO BID #30 caps 09/10/22 (Colace) gabapentin 300 mg capsule 300 mg PO QHS #14 caps 09/10/22 acetaminophen 500 mg tablet 1,000 mg PO Q8H PRN pain #90 tabs 09/30/22 tramadol 50 mg tablet 50 mg PO BID PRN #10 tabs 09/30/22 amoxicillin 875 mg-potassium 1 tab PO Q12H 5 days #10 tabs 12/17/22 clavulanate 125 mg tablet Allergies Allergy/AdvReac Type Severity Reaction Status Date / Time terazosin Allergy Severe Unknown Verified 12/18/22 10:32 oxycodone AdvReac Intermediate Nausea Verified 12/18/22 10:32 pollen AdvReac Intermediate sneezing, Uncoded 12/18/22 10:32 congestion General Stated Complaint: Epistaxis JAMEE: 4 PFSH All Active Problems (Updated 12/18/22 @ 11:43 by AUTUMN [place]) Acute anterior epistaxis (Acute) Epistaxis (Acute) Atrial fibrillation (Chronic) Bigeminal rhythm (Acute) Depression (Chronic) DVT prophylaxis (Acute) Advance directive discussed with patient (Acute) De Quervain's tenosynovitis, left (Acute) Steroid injection: 06/26/2020, 02/21/2021 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 (Acute) Laceration of left index finger (Acute) Fracture of distal phalanx of left index finger (Acute) De Quervain's tenosynovitis, right (Acute) Injection: 06/13/2021; 01/24/2021 Pes planus of left foot (Acute) Biceps tendinitis of left upper extremity (Acute) Bursitis of shoulder, left (Acute) Hyponatremia (Chronic) Anemia (Chronic) Contusion of leg, right (Acute) History of total left knee replacement (TKR) (Acute 06/12/22) Rupture of left quadriceps muscle (Acute) s/p repair of left quad/retinacular repair x2 DOS: 09/25/22; 09/10/22 Medical History Bilateral carotid artery stenosis CAD (coronary artery disease) Cardiomyopathy CHF (congestive heart failure) Chronic cough CKD (chronic kidney disease) 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 Heart palpitations None recently (05/28/22) History of non-ST elevation myocardial infarction (NSTEMI) November 2017 HLD (hyperlipidemia) HTN (hypertension) with goal to be determined Hx of sinusitis Hyperpiesia Hypertension Surgical History History of heart artery stent History of revision of total replacement of right knee joint Right TKA - [place] (2003) Two-stage revision for infection -[place] (2008) Hx of cataract surgery Hx of rhinoplasty Hx of total knee arthroplasty LEFT S/P ORIF (open reduction internal fixation) fracture Right distal femur fracture S/P tendon repair 09/15/22 Status post laparoscopic cholecystectomy (~01/2022) Status post left foot surgery (09/17/21) [facility] Social History Smoking/Tobacco Use Status: Former Tobacco Use Quit Date: 08/18/91 Smoking risk assessment performed?: Yes Alcohol Intake: former Substance use type: does not use Do you feel safe at home: Yes Do you feel safe in your relationship?: Yes Exam Const General: cooperative and no acute distress HENMT Other: No bleeding noted to posterior oropharynx, Rhino Rocket in place, scant blood noted anteriorly, dark in color, no evidence of active bleeding Resp Effort & Inspection: normal respiratory effort Cardio Rate: regular rate Rhythm: regular rhythm Course Vital Signs Vital signs: Vital Signs Temperature 36.4 C 12/18/22 10:27 Pulse 81 12/18/22 10:27 Respiratory Rate 16 12/18/22 10:27 Blood Pressure 160/101 H 12/18/22 10:27 Pulse Oximetry 93 12/18/22 10:27 Temperature 36.4 C 12/18/22 10:27 Temperature Source Tympanic 12/18/22 10:27 Pulse 81 12/18/22 10:27 Respiratory Rate 16 12/18/22 10:27 Respiratory Effort Normal 12/18/22 11:04 Blood Pressure 160/101 H 12/18/22 10:27 Blood Pressure Position Supine 12/18/22 10:27 Pulse Oximetry 93 12/18/22 10:27 Oxygen Delivery Method Room Air 12/18/22 10:27 Oxygen Flow Rate 0 12/18/22 10:27 Pain Level 4 12/18/22 10:27 Comment headache 12/18/22 10:27
== END 2022-12-18 11:52 | disposition home or self-care (01) ==
PROVIDERS: Emergency Provider Physician Assistant; PCP Family Medicine
DX: R04.0 Epistaxis (principal)
CPT/HCPCS: 99281; 99282

== ENCOUNTER → 2022-12-27 09:41 | Outpatient (BNVA) | payer MEDICARE, SELFPAY | PROVIDERS: PCP Family Medicine; Referring Provider Family Medicine; Visit Provider Student in an Organized Health Care Education/Training Program | DX: S76.112D Strain of left quadriceps muscle, fascia and tendon, subsequent encounter (principal); X58.XXXD Exposure to other specified factors, subsequent encounter ==

== ENCOUNTER 2023-03-31 08:52 | Outpatient (RCR) | payer MEDICARE, SELFPAY ==
--- NOTE | 2023-03-31 08:45 | HOLTER_ITS ---
APPROVED REPORT Conclusion This is a 48-hour Holter monitor Rhythm throughout is atrial fibrillation with an average heart rate of 77. Minimum was 60, maximum 1 13 There were rare ventricular ectopic beats. There was one couplet. There was no ventricular tachycar arielle There was no high-grade AV block, no pauses greater than 3 seconds No patient symptoms were reported
== END 2023-04-17 23:59 | disposition home or self-care (01) ==
LOC: CARDOPNVT 08:52
PROVIDERS: PCP Family Medicine; Visit Provider Internal Medicine Cardiovascular Disease
DX: I51.7 Cardiomegaly (principal)
CPT/HCPCS: 93225; 93226

== ENCOUNTER 2023-05-05 18:29 | Outpatient (REF) | payer MEDICARE, SELFPAY ==
[2023-05-05 22:07] LABS: BUN 28 mg/dL (7-18); CREATININE 1.6 mg/dL (0.70-1.30); Calcium 8.9 mg/dL (8.5-10.1); Chloride 100 mmol/L (98-107); Estimated GFR 42.49 (mL/min/1.73m2); Glucose 86 mg/dL (74-106); Potassium 4.3 mmol/L (3.5-5.1); Sodium 135 mmol/L (136-145)
== END 2023-05-05 18:30 | disposition home or self-care (01) ==
LOC: NCHCN 18:29
PROVIDERS: PCP Family Medicine; Visit Provider Family Medicine
DX: I10 Essential (primary) hypertension (principal); N18.32 Chronic kidney disease, stage 3b
CPT/HCPCS: 80048

== ENCOUNTER 2023-06-17 13:13 | Outpatient (CLI) | payer MEDICARE, SELFPAY ==
--- NOTE | 2023-06-16 14:15 | DI.RAD_ITS ---
Exam(s) XR KNEE LT 2V AP,LAT EXAM: XR KNEE LT 2V AP,LAT CLINICAL HISTORY: annual f/u L TKA. TECHNIQUE: 2D digital imaging was performed. Three views. COMPARISON: CR XR STANDING ALIGNMENT from 06/27/2022 CR XR KNEE LT 1V from 06/27/2022 CR XR KNEE RT 2V AP,LAT from 07/25/2022 FINDINGS: BONES: No acute fracture is present. No bony destructive lesion is seen. JOINTS: The knee prosthesis is normally aligned. No joint effusion is seen. SOFT TISSUE: Vascular calcifications. IMPRESSION: Stable appearance of left knee prosthesis. DATA REPOSITORY: RADIATION DOSE DELIVERED:
== END 2023-06-17 13:14 | disposition home or self-care (01) ==
LOC: DIORS 13:14
PROVIDERS: PCP Family Medicine; Visit Provider Student in an Organized Health Care Education/Training Program
DX: Z47.1 Aftercare following joint replacement surgery; Z96.652 Presence of left artificial knee joint; S76.112D Strain of left quadriceps muscle, fascia and tendon, subsequent encounter; X58.XXXD Exposure to other specified factors, subsequent encounter; I48.91 Unspecified atrial fibrillation
CPT/HCPCS: 99213; 73560

== ENCOUNTER 2023-06-18 13:30 | Outpatient (REF) | payer MEDICARE, SELFPAY ==
[2023-06-18 14:56] LABS: HCT 40.5 % (40.0-50.0); HGB 12.9 g/dL (13.5-17.5); MCH 28.8 pg (27.0-33.0); MCHC 31.9 % (32.0-36.0); MCV 90 fL (80-95); MPV 10.2 fL (8.0-11.0); Platelet Count 121 10^3/uL (130-400); RBC 4.48 10^6/uL (4.36-5.78); RDW 13.8 % (11.8-14.1); RDW-SD 45.6 fL; WBC 6.03 10^3/uL (4.4-10.8)
[2023-06-18 15:28] LABS: ALT 31 U/L (16-63); AST 30 U/L (15-37); Albumin 3.4 g/dL (3.4-5.0); Alkaline Phosphatase 132 U/L (46-116); Anion Gap 8.2 mmol/L (3-11); BUN 30 mg/dL (7-18); Bilirubin, Total 0.7 mg/dL (0.2-1.0); CO2 25.8 mmol/L (21.0-32.0); CREATININE 1.7 mg/dL (0.70-1.30); Calcium 8.8 mg/dL (8.5-10.1); Chloride 102 mmol/L (98-107); Estimated GFR 39.51 (mL/min/1.73m2); Glucose 82 mg/dL (74-106); Potassium 4.5 mmol/L (3.5-5.1); Sodium 136 mmol/L (136-145); TSH (W/Ref FT4) 6.92 uIU/mL (0.36-3.74); Total Protein 6.5 g/dL (6.4-8.2)
[2023-06-18 15:48] LABS: FREE T4 1.05 ng/dL (0.76-1.46)
== END 2023-06-18 13:31 | disposition home or self-care (01) ==
LOC: NCHCN 13:30
PROVIDERS: PCP Family Medicine; Visit Provider Family Medicine
DX: I10 Essential (primary) hypertension (principal); N18.32 Chronic kidney disease, stage 3b
CPT/HCPCS: 80053; 85027; 84439; 84443

== ENCOUNTER 2023-07-03 09:28 | Outpatient (RCR) | payer MEDICARE, SELFPAY ==
--- NOTE | 2023-07-03 12:00 | HOLTER_ITS ---
APPROVED REPORT Conclusion This is a 48-hour Holter monitor ordered for palpitations Rhythm throughout was sinus with an average heart rate of 78. Minimum was 55, maximum 126 There were occasional ventricular premature beats comprising 1.4% of total. There were very rare cou plets There were very rare isolated atrial premature beats. A total of 4 self-limited atrial runs occurred . The longest of these was 5 beats in duration There was no atrial fibrillation, no high-grade AV block, no pauses greater than 3 seconds No patient symptoms were reported
== END 2023-07-17 23:59 | disposition home or self-care (01) ==
LOC: CARDOPNVT 09:28
PROVIDERS: PCP Family Medicine; Visit Provider Internal Medicine Cardiovascular Disease
DX: R00.2 Palpitations (principal)
CPT/HCPCS: 93227; 93225; 93226

== ENCOUNTER → 2023-07-07 02:08 | Outpatient (CLI) | payer MEDICARE, SELFPAY ==
--- NOTE | 2023-07-07 | DI.NM_ITS ---
APPROVED REPORT Exam: Pharmacologic Patient Location: Out-Patient Room/Bed: Stress Nurse: Mu Magana RN Ordering Provider:DELISA BOONEAllyson, Contact Number: [phone] BMI: 27.89 Baseline Rhythm: Sinus Rhythm Indications: Dyspnea. Medical History Medical History: CHF, CAD, HTN, Bilateral carodid stenosis, Cardiomyopathy, CKD, MSTEMI, A-fib. Cardiac Medications: Atorvastatin, Apixaban, Lasix, Hydroxyzine, metoprolol, Valsartan., Allergies: Terazosin, oxycodone. Cardiac Risk Factors: CHF, CAD, HTN, Bilateral carodid stenosis, Cardiomyopathy, CKD, MSTEMI, A-fib. Pretest Chest Pain Characteristics: No chest pain Exercise History: Sedentary Physical Disabilities: Deconditioned. Uetilizes walker. Lung Sounds: Clear to auscultation Heart Sounds: Regular. Stress Test Details Test: Pharmacologic stress testing performed using 0.4 mg of regadenoson per 5 mL given IV over 10 s econds. Reason for pharmacologic stress test: physical limitation. Nuclear Acquisition: Rest Tc-99m/Stress Tc-99m 1 day Rest Isotope: Tc-99m Sestamibi. Dose: 10.0 Date: 07/07/2023 Injection Time: 0900 Stress Isotope: Tc-99m Sestamibi. Dose: 30.0 Date: 07/07/2023 Injection Time: 1005 HR Resting HR Supine: 63 bpm Max Heart Rate (APMHR): 137.009448 bpm Target HR (85% APMHR): 116.550638 bpm Max HR Achieved: 81 bpm % of APMHR: 59.12 Recovery HR: 78 bpm HR response to stress: Normal HR response to stress BP Resting BP Supine: 168/92 mmHg Max BP: 172/90 mmHg Recovery BP: 162/92 mmHg BP response to stress: Normal blood pressure response to stress. ECG Resting ECG: Sinus Rhythm Stress ECG: Sinus Rhythm ST Change: No significant ST segment changes noted Arrhythmia: None Recovery ECG: Sinus Rhythm Recovery ST Change: No significant ST segment changes noted Comment: One PVC noted. Clinical Rate Pressure Product: [id number] Stress ECG Conclusion 1. Electrocardiogram showed poor R wave progression, possible old anterior infarct 2. Patient underwent testing using pharmacologic stress with regadenoson 3. Peak heart rate achieved was 59% of predicted for age 4. The electrocardiographic portion of the test was nondiagnostic 5. There were no significant dysrhythmias 6. See MPI report Stress Test Summary STAGE HR BP SpO2 Symptoms NOTES Supine 63 168/92 1 min post Lexiscan injection 67 172/90 3 min post Lexiscan injection 78 162/92 MPI Conclusion Myocardial perfusion is normal. There is no ischemia or evidence of prior infarction Ejection fraction is 49%, wall motion is normal Radiologist Interpretation Radiologist agrees with [employer]ion Analyst's Interpretation. Radiologist Interpretation by: Erna Naqvi MD Interpretation Date/Time: 07/07/2023 15:35:31
[2023-07-07] MEDS: Regadenoson 0.4 MG/5 ML SYR IVP (11:52)
== END ==
PROVIDERS: PCP Family Medicine; Visit Provider Internal Medicine Cardiovascular Disease
DX: R06.00 Dyspnea, unspecified (principal)
CPT/HCPCS: 78452; 93016; 93018; 93017; J2785

== ENCOUNTER 2023-07-08 11:07 | Outpatient (CLI) | payer MEDICARE, SELFPAY ==
--- NOTE | 2023-07-08 11:17 | DI.RAD_ITS ---
Exam(s) XR SHOULDER LT COMPLETE 2+V EXAM: XR SHOULDER LT COMPLETE 2+V CLINICAL HISTORY: LEFT SHOULDER PAIN. TECHNIQUE: 2D digital imaging was performed of the left shoulder. Two images were obtained. Grashe y and axillary views were obtained. COMPARISON: CR XR SHOULDER LT COMPLETE 2+V from 01/15/2022 FINDINGS: BONES: No acute fracture is present. No bony destructive lesion is seen. JOINTS: No dislocation present. The glenohumeral joint is well maintained. There are mild degenerati ve changes seen at the acromioclavicular joint. SOFT TISSUE: The visualized lung prather are clear. IMPRESSION: Mild degenerative changes of the AC joint. DATA REPOSITORY: RADIATION DOSE DELIVERED:
== END 2023-07-08 11:08 | disposition home or self-care (01) ==
LOC: DIORS 11:07
PROVIDERS: PCP Family Medicine; Referring Provider Family Medicine; Visit Provider Student in an Organized Health Care Education/Training Program
DX: M25.512 Pain in left shoulder (principal); M75.102 Unspecified rotator cuff tear or rupture of left shoulder, not specified as traumatic; M12.812 Other specific arthropathies, not elsewhere classified, left shoulder
CPT/HCPCS: 99214; 73030

== ENCOUNTER → 2023-07-11 00:21 | Outpatient (CLI) | payer MEDICARE, SELFPAY ==
--- NOTE | 2023-07-11 09:15 | DI.CT_ITS ---
Exam(s) CT UPPER EXTREMITY LT WO EXAM: CT UPPER EXTREMITY LT WO CLINICAL HISTORY: SURGICAL PLANNING,LT ROTATOR CUFF TEAR ARTHROPATHY,M75.102,M12.812. TECHNIQUE: Imaging Protocol: Axial computed tomography images with coronal and sagittal reformatted images were created and reviewed. COMPARISON: CR XR SHOULDER LT COMPLETE 2+V from 07/08/2023 FINDINGS: The examination is limited due to patient motion artifact. The examination was performed for pre-surgical planning. Bones: The osseous structures and articular surfaces are intact. There are old healed left rib frac tures. There are degenerative changes seen at both the acromioclavicular and glenohumeral joints. T here does appear to be superior subluxation of the humeral head relative to the glenoid which may ref lect chronic rotator cuff tear. There are [id number] fatty atrophy changes of the supraspinatu s and subscapularis muscles. Soft Tissues: There is atherosclerosis present of the thoracic aorta. Coronary artery calcification and/or stents are present. There is a calcified granuloma in the left upper lobe. IMPRESSION: 1. Superior subluxation of the humeral head relative to the glenoid which may reflect chronic rotator cuff tear. 2. Fatty atrophy involving the supraspinatus and subscapularis muscles. 3. Degenerative changes in the shoulder as described. RADIATION DOSE DELIVERED: Total DLP Total DLP DATA REPOSITORY: All CT scans at this facility are submitted to the National Radiology Data Registry (NRDR) Dose Index Registry (DIR) with the [employer] (ACR). RADIATION OPTIMIZATION: All CT scans at this facility use at least one of these dose optimization te chniques: automated exposure control; mA and/or kV adjustment per patient size (includes targeted exa ms where dose is matched to clinical indication); or iterative reconstruction.
== END ==
PROVIDERS: PCP Family Medicine; Visit Provider Student in an Organized Health Care Education/Training Program
DX: M12.812 Other specific arthropathies, not elsewhere classified, left shoulder (principal)
CPT/HCPCS: 73200

== ENCOUNTER 2023-07-17 09:16 | Outpatient (RCR) | payer SELFPAY ==
[2023-06-19 09:04] VITALS: BP 143/83; PULSE 80
[2023-06-24 08:48] VITALS: BP 134/82; PULSE 89
[2023-07-01 09:10] VITALS: BP 100/81; PULSE 82
[2023-07-03 09:27] VITALS: BP 164/98; PULSE 71
[2023-07-08 09:16] VITALS: BP 161/90; PULSE 92
[2023-07-17 09:04] VITALS: BP 140/68; PULSE 85
== END 2023-07-17 23:59 | disposition home or self-care (01) ==
LOC: CR 09:16
PROVIDERS: PCP Family Medicine; Visit Provider Internal Medicine Cardiovascular Disease
DX: R69 Illness, unspecified (principal)

== ENCOUNTER → 2023-07-23 09:35 | Outpatient (BNVA) | payer MEDICARE, SELFPAY | PROVIDERS: PCP Family Medicine; Referring Provider Family Medicine; Visit Provider Student in an Organized Health Care Education/Training Program | DX: M75.102 Unspecified rotator cuff tear or rupture of left shoulder, not specified as traumatic (principal); M12.812 Other specific arthropathies, not elsewhere classified, left shoulder | CPT/HCPCS: 99214 ==

== ENCOUNTER 2023-07-24 09:05 | Outpatient (RCR) | payer SELFPAY ==
[2023-07-18 00:07] VITALS: BP 140/68; PULSE 85
[2023-07-22 11:36] VITALS: BP 134/75; PULSE 80
[2023-07-24 08:53] VITALS: BP 154/87; PULSE 91
== END 2023-08-17 23:59 | disposition home or self-care (01) ==
LOC: CR 09:05
PROVIDERS: PCP Family Medicine; Visit Provider Internal Medicine Cardiovascular Disease
DX: R69 Illness, unspecified (principal)

== ENCOUNTER 2023-09-08 15:11 | Outpatient (REF) | payer MEDICARE, SELFPAY ==
[2023-09-08 14:54] LABS: Abs Immature Grans 0.02 10^3/uL (0.0-0.06); Absolute Basophil Count 0.04 10^3/uL (0.0-0.2); Absolute Lymphocyte Count 2.69 10^3/uL (1.2-3.4); Absolute Monocyte Count 0.58 10^3/uL (0.1-0.8); Absolute Neutrophil Count 4.56 10^3/uL (1.2-6.7); Basophils % 0.5; Eosinophils % 1.3; HCT 36.5 % (40.0-50.0); HGB 11.8 g/dL (13.5-17.5); Immature Grans % 0.3; Lymphocytes % 33.7; MCH 29.3 pg (27.0-33.0); MCHC 32.3 % (32.0-36.0); MCV 91 fL (80-95); MPV 9.8 fL (8.0-11.0); Monocytes % 7.3; Neutrophils % 56.9; Platelet Count 125 10^3/uL (130-400); RBC 4.03 10^6/uL (4.36-5.78); RDW 14.5 % (11.8-14.1); RDW-SD 47.8 fL; WBC 7.99 10^3/uL (4.4-10.8)
--- OUTSIDE RECORDS SUMMARY | 2023-09-08 15:13 | XMS_ITS | Continuity of Care Document ---
Author Name Unknown Organization [facility] Address [address] [place] [address] Care Team Providers Care Fabric Sourcer Name Role Phone WU TERRAZAS Primary Care Physician Encounter [facility] NBR [id number] Date(s): 06/03/23 - 06/03/23 [facility] [address] [place] [address]- [place] Discharge Disposition: Home or Self Care Attending Physician: DELISA PANIAGUA MD Admitting Physician: DELISA PANIAGUA MD Referring Physician: Kenan Sage Functional Status 06/03/23 Lunch Percent 100 06/03/23 ADLs Independent Mental Status 06/03/23 Eye Opening Response Maria Esther Spontaneous ly Best Verbal Response Rebecca Oriented Best Motor Response Rebecca Obeys comman ds Maria Esther Coma Score 15 Vital Signs Most recent to oldest [Reference Range]: 1 2 3 Temperature Temporal Artery [36-38 Deg C] 36.3 Deg C (06/03/23 10:26 AM) 36.6 Deg C (06/03/23 9:17 AM) Temperature Temporal Artery (DegF) [97.3-100 Deg F] 97.34 Deg F (06/03/23 10:26 AM) 97.88 Deg F (06/03/23 9:17 AM) Apical Heart Rate [60-100 bpm] 66 bpm (06/03/23 9:17 AM) Peripheral Pulse Rate [60-100 bpm] 67 bpm (06/03/23 11:43 AM) 69 bpm (06/03/23 11:00 AM) 61 bpm (06/03/23 10:45 AM) Heart Rate Monitored [60-100 bpm] 67 bpm (06/03/23 11:43 AM) 70 bpm (06/03/23 11:00 AM) 61 bpm (06/03/23 10:45 AM) Respiratory Rate [12-24 br/min] 19 br/min (06/03/23 11:43 AM) 16 br/min (06/03/23 11:00 AM) 16 br/min (06/03/23 10:45 AM) Blood Pressure [90-140/60-90 mmHg] 139/91mmHg (06/03/23 11:43 AM) 159/89mmHg *HI* (06/03/23 11:00 AM) 120/77mmHg (06/03/23 10:45 AM) Mean Arterial Pressure, Cuff [65-140 mmHg] 107 mmHg (06/03/23 11:43 AM) 112 mmHg (06/03/23 11:00 AM) 91 mmHg (06/03/23 10:45 AM) Mean Arterial Pressure Cuff 105 mmHg (06/03/23 11:43 AM) 91 mmHg (06/03/23 10:45 AM) 85 mmHg (06/03/23 10:43 AM) Weight 84.4 kg (06/03/23 9:17 AM) Weight Measured (lbs) 186.07 lb (06/03/23 9:17 AM) Procedure note * Adrianne Pike: PERFORM Event Display: Procedure Note Authored Date: [id number] 06/03/2023 11:16:13 Summoned to ICU??for electivecardioversion.?? Provider to provider report received.?? See inspector brake lining notes for full history of present illness.?? Chart, H&P, vital signs (including EKG rhythm analysis) reviewed.?? Consent obtained. ??IV access confirmed.?? Emergency airway equipment present.?? Code cart in room. Supplemental oxygen at ___4_L/min via nasal cannula Defibrillator pads placed per inspector brake lining and bedside RN.?? Time out performed with bedside staff.?? Rhythm analysis confirmed with defibrillator device.?? Synchronization with R wave confirmed.?? Joules setting per inspector brake lining. ____75mg IV push propofol administered for sedation. Synchronized cardioversion performed by inspector brake lining. Sinus rhythm established??_ Rhythm reviewed with inspector brake lining and no further current indication for sedation/anesthetic.?? Patient vitals recorded on anesthesia flowsheet.?? Patient responsive to commands.?? Denies nausea/pain/anesthetic awareness. Electronically Signed on 06/03/23 11:16 AM Adrianne Pike Patient Care team information Care Team Personnel Name: WU TERRAZAS Position: No Access Member Role: Primary Care Physician Address: Address: [id number] [place] [address] Care Team Related Persons Name: ADRIANNE MOODY
--- OUTSIDE RECORDS SUMMARY | 2023-09-08 15:13 | XMS_ITS | Continuity of Care Document ---
Author Name Unknown Organization [facility] Address [address] [place] [id number] Care Team Providers Care Lead Driver Name Role Phone WU TERRAZAS Primary Care Physician Encounter [facility] NBR [id number] Date(s): 04/22/23 - 04/22/[address] [address]- [place] Encounter Diagnosis Ischemic cardiomyopathy(Final) - Discharge Disposition: Home or Self Care Attending Physician: DELISA PANIAGUA MD Admitting Physician: DELISA PANIAGUA MD Referring Physician: DELISA PANIAGUA MD Patient Care team information Care Team Personnel Name: WU TERRAZAS Position: No Access Member Role: Primary Care Physician Address: Address: [address] [address] Care Team Related Persons Name: ADRINANE MOODY
--- OUTSIDE RECORDS SUMMARY | 2023-09-08 15:13 | XMS_ITS | CCD ---
Author Name Unknown Address [address] [place] [address] [phone] Organization Unknown Address [address] [place] [address] [phone] Care Team Providers Care Senior Estimator Name Role Phone SALOMON SRINIVASAN Attending Physician [phone] SALOMON SRINIVASAN Rounding (Secondary) Physician [phone] Vital Signs Unknown or Not Available. Allergies Allergy Code Allergy Type Reaction Status OXYCODONE 7804 Drug allergy Nausea Active Procedures Unknown or Not Available. History of Immunizations Immunization Code Date COVID-19, mRNA, LNP-S, PF, 100 mcg/0.5mL dose or 50 mcg/0.25mL dose 09/19/2020 COVID-19, mRNA, LNP-S, PF, 100 mcg/0.5mL dose or 50 mcg/0.25mL dose 10/17/2020 Problems Unknown or Not Available. Results Unknown or Not Available. Active Medications Medication Code Dose Units Frequency Route Modificatio n Start Date/Time Valsartan 160MG Oral Tablet [id number] 160 MILLIGRAMS DAILY ORAL 08:20 Prescription Detail TAKE 1 TABLET BY MOUTH DAILY Androderm 4MG/24HR Transdermal Patch, Extended Release [id number] 1 TRANSDERMAL PATCH BEDTIME TRANSDERMAL 09/25/2021 09:39 Prescription Detail APPLY 1 TRANSDERMAL PATCH TRANSDERMAL BE DTIME Aspir 81 81MG Oral Tablet, Enteric Coated [id number] 81 MILLIGRAMS DAILY ORAL 09:39 Prescription Detail TAKE 81 MILLIGRAMS ORAL DAILY Atorvastatin Calcium 80MG Oral Tablet [id number] 80 MILLIGRAMS BEDTIME ORAL 022 09:39 Prescription Detail TAKE 80 MILLIGRAMS ORAL BEDTIME buPROPion Hydrochloride SR 150MG Oral Tablet, Extended Release, 12 HR [id number] 150 MILLIGRAMS TWICE A DAY ORAL 09/25/2021 09:39 Prescription Detail TAKE 150 MILLIGRAMS ORAL TWICE A DAY Calcium 600 MG Oral Tablet 247246 600 MG DAILY ORAL 09/25/19 09:39 Prescription Detail TAKE 600 MG ORAL DAILY Temazepam 15MG Oral Capsule [id number] 15 MILLIGRAMS BEDTIME ORAL 2021 09:39 Prescription Detail TAKE 15 MILLIGRAMS ORAL BEDTIME Vitamin D 1000IU Oral Tablet 021871 3167 INTERNATION AL UNITS DAILY ORAL 09/25/2021 09:39 Prescription Detail TAKE 1000 INTERNATIONAL UNITS ORAL DAILY Medications Administered During Visit Unknown or Not Available. Encounters Encounter Diagnosis Diagnosis Code Start Date Arthrodesis [id number] 06/10/2022 Social History Smoking Status Code Start Date End Date Former smoker [id number] 08/18/1995 Patient Decision Aids Unknown or Not Available. Discharge Instructions You were admitted to [facility] on 06/10/2022 14:34 with a principal diagnosis of Arthrodesis status You were discharged from [facility] on 06/10/2022 00:00 Should you have any questions prior to discharge, please contact a member of your healthcare team. If you have left the hospital and have any questions, please contact your primary care physician. Chief Complaint and Reason For Visit Unknown or Not Available. Function Status Unknown or Not Available. Plan of Care Unknown or Not Available. Referral/Transition of Care Unknown or Not Available.
--- OUTSIDE RECORDS SUMMARY | 2023-09-08 15:14 | XMS_ITS | CCD ---
Author Name Unknown Address [address] [place] [address] [phone] Organization Unknown Address [address] [place] [address] [phone] Care Team Providers Care Incising Machine Operator Name Role Phone SALOMON SRINIVASAN Attending Physician [phone] SALOMON SRINIVASAN Rounding (Secondary) Physician [phone] Vital Signs Unknown or Not Available. Allergies [...] n Start Date/Time Valsartan 160MG Oral Tablet [id number] 160 MILLIGRAMS DAILY ORAL 08:20 Prescription Detail TAKE 1 TABLET BY MOUTH DAILY Androderm 4MG/24HR Transdermal Patch, Extended Release [id number] 1 TRANSDERMAL PATCH BEDTIME TRANSDERMAL 09/25/2021 09:39 Prescription Detail APPLY 1 TRANSDERMAL PATCH TRANSDERMAL BE DTIME Aspir 81 81MG Oral Tablet, Enteric Coated [id number] 81 MILLIGRAMS DAILY ORAL 09:39 Prescription Detail TAKE 81 MILLIGRAMS ORAL DAILY Atorvastatin Calcium 80MG Oral Tablet [id number] 80 MILLIGRAMS BEDTIME ORAL 022 09:39 Prescription Detail TAKE 80 MILLIGRAMS ORAL BEDTIME buPROPion Hydrochloride SR 150MG Oral Tablet, Extended Release, 12 HR [id number] 150 MILLIGRAMS TWICE A DAY ORAL 09/25/2021 09:39 Prescription Detail TAKE 150 MILLIGRAMS ORAL TWICE A DAY Calcium 600 MG Oral Tablet 351820 600 MG DAILY ORAL 09/25/19 09:39 Prescription Detail TAKE 600 MG ORAL DAILY Temazepam 15MG Oral Capsule 331895 15 MILLIGRAMS BEDTIME ORAL 2021 09:39 Prescription Detail TAKE 15 MILLIGRAMS ORAL BEDTIME Vitamin D 1000IU Oral Tablet 365194 2678 INTERNATION AL UNITS DAILY ORAL 09/25/2021 09:39 Prescription Detail TAKE 1000 INTERNATIONAL UNITS ORAL DAILY Medications Administered During Visit Unknown or Not Available. 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 Discharge Instructions You were admitted to [facility] on 09/17/2021 17:21 with a principal diagnosis of Flat foot [pes planus] (acquired), left foot You were discharged from [facility] on 09/21/2021 17:25 Should you have any questions prior to [...]
--- OUTSIDE RECORDS SUMMARY | 2023-09-08 15:14 | XMS_ITS | CCD ---
Author Name Unknown Address [address] [place] [address] [phone] Organization Unknown Address [address] [place] [address] [phone] Care Team Providers Care Foster Care Social Worker Name Role Phone SALOMON SRINIVASAN Attending Physician [phone] SALOMON SRINIVASAN Rounding (Secondary) Physician [phone] Vital Signs Unknown or Not Available. Allergies [...] n Start Date/Time Valsartan 160MG Oral Tablet [id number] 160 MILLIGRAMS DAILY ORAL 08:20 Prescription Detail TAKE 1 TABLET BY MOUTH DAILY Androderm 4MG/24HR Transdermal Patch, Extended Release [id number] 1 TRANSDERMAL PATCH BEDTIME TRANSDERMAL 09/25/2021 09:39 Prescription Detail APPLY 1 TRANSDERMAL PATCH TRANSDERMAL BE DTIME Aspir 81 81MG Oral Tablet, Enteric Coated [id number] 81 MILLIGRAMS DAILY ORAL 09:39 Prescription Detail TAKE 81 MILLIGRAMS ORAL DAILY Atorvastatin Calcium 80MG Oral Tablet 907481 80 MILLIGRAMS BEDTIME ORAL 022 09:39 Prescription Detail TAKE 80 MILLIGRAMS ORAL BEDTIME buPROPion Hydrochloride SR 150MG Oral Tablet, Extended Release, 12 HR [id number] 150 MILLIGRAMS TWICE A DAY ORAL 09/25/2021 09:39 Prescription Detail TAKE 150 MILLIGRAMS ORAL TWICE A DAY Calcium 600 MG Oral Tablet 839035 600 MG DAILY ORAL 09/25/19 09:39 Prescription Detail TAKE 600 MG ORAL DAILY Temazepam 15MG Oral Capsule 096115 15 MILLIGRAMS BEDTIME ORAL 2021 09:39 Prescription Detail TAKE 15 MILLIGRAMS ORAL BEDTIME Vitamin D 1000IU Oral Tablet 391274 1404 INTERNATION AL UNITS DAILY ORAL 09/25/2021 09:39 Prescription Detail TAKE 1000 INTERNATIONAL UNITS ORAL DAILY Medications Administered During Visit Unknown or Not Available. Encounters Encounter Diagnosis Diagnosis Code Start Date Breakage of internal fixation device [id number] 03/12/2022 Social History Smoking Status Code Start Date End Date Former smoker [id number] 08/18/1995 Patient Decision Aids Unknown or Not Available. 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
--- OUTSIDE RECORDS SUMMARY | 2023-09-08 15:14 | XMS_ITS | CCD ---
Author Name Unknown Address [address] [place] [address] [phone] Organization Unknown Address [address] [place] [address] [phone] Care Team Providers Care Inspector Machine Cut Glass Name Role Phone SALOMON SRINIVASAN Attending Physician [phone] SALOMON SRINIVASAN Rounding (Secondary) Physician [phone] Vital Signs Unknown or Not Available. Allergies [...] n Start Date/Time Valsartan 160MG Oral Tablet [id number] 160 MILLIGRAMS DAILY ORAL 08:20 Prescription Detail TAKE 1 TABLET BY MOUTH DAILY Androderm 4MG/24HR Transdermal Patch, Extended Release [id number] 1 TRANSDERMAL PATCH BEDTIME TRANSDERMAL 09/25/2021 09:39 Prescription Detail APPLY 1 TRANSDERMAL PATCH TRANSDERMAL BE DTIME Aspir 81 81MG Oral Tablet, Enteric Coated [id number] 81 MILLIGRAMS DAILY ORAL 09:39 Prescription Detail TAKE 81 MILLIGRAMS ORAL DAILY Atorvastatin Calcium 80MG Oral Tablet 162054 80 MILLIGRAMS BEDTIME ORAL 022 09:39 Prescription Detail TAKE 80 MILLIGRAMS ORAL BEDTIME buPROPion Hydrochloride SR 150MG Oral Tablet, Extended Release, 12 HR [id number] 150 MILLIGRAMS TWICE A DAY ORAL 09/25/2021 09:39 Prescription Detail TAKE 150 MILLIGRAMS ORAL TWICE A DAY Calcium 600 MG Oral Tablet 278203 600 MG DAILY ORAL 09/25/19 09:39 Prescription Detail TAKE 600 MG ORAL DAILY Temazepam 15MG Oral Capsule 774580 15 MILLIGRAMS BEDTIME ORAL 2021 09:39 Prescription Detail TAKE 15 MILLIGRAMS ORAL BEDTIME Vitamin D 1000IU Oral Tablet 697742 6284 INTERNATION AL UNITS DAILY ORAL 09/25/2021 09:39 Prescription Detail TAKE 1000 INTERNATIONAL UNITS ORAL DAILY Medications Administered During Visit Unknown or Not Available. Encounters Encounter Diagnosis Diagnosis Code Start Date Arthrodesis [id number] 12/11/2021 Social History Smoking Status Code Start Date End Date Former smoker [id number] 08/18/1995 Patient Decision Aids Unknown or Not Available. Discharge Instructions You were admitted to [facility] on 12/11/2021 13:37 with a principal diagnosis of Arthrodesis status You were discharged from [facility] on 12/11/2021 00:00 Should you have any questions prior [...]
--- OUTSIDE RECORDS SUMMARY | 2023-09-08 15:14 | XMS_ITS | CCD ---
Author Name Unknown Address [address] [place] [address] [phone] Organization Unknown Address [address] [place] [address] [phone] Care Team Providers Care Hat Blocking Machine Operator Name Role Phone SALOMON SRINIVASAN Attending Physician [phone] Vital Signs Vital Sign Value Unit Date/Time Recent/Initial ? BMI (Body Mass Index) 28.98 kg/m^2 09/05/2021 07: 51 Initial VS Weight Measured 213.65 lbs 09/05/2021 07:51 Ini tial VS Height 72 in 09/05/2021 07:51 Initial VS BSA (Body Surface Area) 2.22 m^2 09/05/2021 0 7:51 Initial VS BP Systolic 149 mmHg 09/17/2021 16:45 Initial VS BP Diastolic 84 mmHg 09/17/2021 16:45 Initia l VS Respiratory Rate 18 bpm 09/17/2021 16:45 In itial VS Heart Rate 76 bpm 09/17/2021 16:45 Initial VS O2 % BldC Oximetry 95 % 09/17/2021 16:45 Initial VS Body Temperature 36.8 degrees 09/17/2021 16:45 In itial VS BMI (Body Mass Index) 28.98 kg/m^2 09/20/2021 13: 21 Most Recent VS Weight Measured 213.65 lbs 09/20/2021 13:21 Mos t Recent VS Height 72 in 09/20/2021 13:21 Most Rec ent VS BSA (Body Surface Area) 2.22 m^2 09/20/2021 1 3:21 Most Recent VS BP Systolic 120 mmHg 09/21/2021 06:05 Most Re cent VS BP Diastolic 76 mmHg 09/21/2021 06:05 Most R ecent VS Respiratory Rate 18 bpm 09/21/2021 06:[address] Recent VS Heart Rate 76 bpm 09/21/2021 06:05 Most Rec ent VS O2 % BldC Oximetry 91 % 09/21/2021 06:05 Most Recent VS Body Temperature 37 degrees 09/21/2021 06:[address] Recent VS Allergies Allergy Code Allergy Type Reaction Status OXYCODONE 7804 Drug allergy Nausea Active Procedures Procedure Code Procedure Type Date Division of Left Ankle Tendo n, Percutaneous Approach [id number] ICD-10 PCS 09/17/2021 Fusion of Left Tarsometatars al Joint with Nonautologous Tissue Substitute, Open Approach [id number] ICD-10 PCS 09/17/2021 Division of Left Ankle Tendon, Open Approach [id number] ICD-10 PCS 09/17/2021 Supplement Left Ankle Tendon with Autologous Tissue Substitute, Open Approach [id number] ICD-10 PCS 09/17/2021 Introduction of Anesthetic A gent into Peripheral Nerves and Plexi, Percutaneous Approach [id number] ICD-10 PCS 09/17/2021 Anesthesia, Nerves/Muscles/T endons & Fascia, Lower Leg/Ankle/Foot; NOS 61905 CPT 09/17/2021 History of Immunizations Immunization Code Date COVID-19, mRNA, LNP-S, PF, 100 mcg/0.5mL dose or 50 mcg/0.25mL dose 09/19/2020 COVID-19, mRNA, LNP-S, PF, 100 mcg/0.5mL dose or 50 mcg/0.25mL dose 10/17/2020 Problems Unknown or Not Available. Results BASIC METABOLIC PANEL (BMP) - Collect Date/Time: 09/21/2021 06:30 Test Name Code Test Result Test Units Test Ref Rang e GLUCOSE 2345-7 111 mg/dL L=70 H=116 BUN 3094-0 25 mg/dL L=6 H=25 CREATININE 2160-0 1.76 mg/dL L=0.67 H=1.17 SODIUM SERUM 2951-2 128 mmol/L L=136 H=145 POTASSIUM SERUM 2823-3 3.6 mmol/L L=3.4 H=5 .2 CHLORIDE SERUM 2075-0 89 mmol/L L=96 H=110 CARBON DIOXIDE (CO2) 2028-9 30 mmol/L L=22 H=34 ANION GAP 62136-2 8.8 mmol/L CALCIUM SERUM 67968-5 8.6 mg/dL L=8.2 H=10. 2 AGE 80 years eGFR (non-Afr.Amer.) 56464-9 37 mL/min eGFR (Afr-Citizen Of [place]) 09554-7 45 mL/min BASIC METABOLIC PANEL (BMP) - Collect Date/Time: 09/19/2021 13:43 Test Name Code Test Result Test Units Test Ref Rang e GLUCOSE 2345-7 129 mg/dL L=70 H=116 BUN 3094-0 18 mg/dL L=6 H=25 CREATININE 2160-0 1.32 mg/dL L=0.67 H=1.17 SODIUM SERUM 2951-2 128 mmol/L L=136 H=145 POTASSIUM SERUM 2823-3 3.8 mmol/L L=3.4 H=5 .2 CHLORIDE SERUM 2075-0 94 mmol/L L=96 H=110 CARBON DIOXIDE (CO2) 2028-9 27 mmol/L L=22 H=34 ANION GAP 71251-5 6.8 mmol/L CALCIUM SERUM 79714-6 8.3 mg/dL L=8.2 H=10. 2 AGE 80 years eGFR (non-Afr.Amer.) 42449-3 52 mL/min eGFR (Afr-Citizen Of [place]) 06496-3 63 mL/min BASIC METABOLIC PANEL (BMP) - Collect Date/Time: 09/17/2021 09:45 Test Name Code Test Result Test Units Test Ref Rang e GLUCOSE 2345-7 86 mg/dL L=70 H=116 BUN 3094-0 25 mg/dL L=6 H=25 CREATININE 2160-0 1.77 mg/dL L=0.67 H=1.17 SODIUM SERUM 2951-2 135 mmol/L L=136 H=145 POTASSIUM SERUM 2823-3 4.0 mmol/L L=3.4 H=5 .2 CHLORIDE SERUM 2075-0 98 mmol/L L=96 H=110 CARBON DIOXIDE (CO2) 2028-9 27 mmol/L L=22 H=34 ANION GAP 62513-1 10.4 mmol/L CALCIUM SERUM 12696-2 8.9 mg/dL L=8.2 H=10. 2 AGE 80 years eGFR (non-Afr.Amer.) 51645-5 37 mL/min eGFR (Afr-Citizen Of [place]) 60815-1 45 mL/min BNP (PRO-B NATRIURETIC PEPTI DE) - Collect Date/Time: 09/19/2021 13:43 Test Name Code Test Result Test Units Test Ref Rang e NT-proBNP 65973-3 1757.0 pg/mL L=0.0 H=450 CBC W/ DIFFERENTIAL* - Colle ct Date/Time: 09/19/2021 13:43 Test Name Code Test Result Test Units Test Ref Rang e WBC 6690-2 10.69 th/cmm L=5.00 H=10.00 NEUT % 79.4 % L=40.0 H=80.0 LYMPH % 10.9 % L=10.0 H=50.0 MONO % 31140-7 8.0 % L=2.0 H=12.0 EOS % 0.5 % L=0.0 H=8.0 BASO % 0.5 % L=0.0 H=3.0 IG % 2514-8 0.7 % L=0.0 H=1.1 NRBC % 41114-6 0.0 % L=0.0 H=0.0 NEUT abs count 751-8 8.5 th/cmm L=1.6 H=8. 4 LYMPH abs count 731-0 1.2 th/cmm L=1.5 H=4 .0 MONO abs count 742-7 0.9 th/cmm L=0.2 H=1. 0 EOS abs count 711-2 0.1 th/cmm L=0.0 H=0.5 BASO abs count 704-7 0.1 th/cmm L=0.0 H=0. 2 IG abs count 70178-4 0.1 th/cmm L=0.0 H=0.1 NRBC abs count 23113-5 0.0 mil/cmm L=0.0 H=0. 0 RBC 789-8 3.46 mil/cmm L=4.30 H=6.20 HEMOGLOBIN 718-7 10.2 gm/dL L=13.0 H=17.0 HEMATOCRIT 4544-3 31 % L=45 H=52 MCV 787-2 89 fL L=82 H=92 MCH 785-6 29.5 pg L=27.0 H=31.0 MCHC 786-4 33.0 % L=32.0 H=36.0 RDW-SD 788-0 44.2 fL L=39.0 H=49.0 PLATELET COUNT 777-3 151 th/cmm L=150 H=45 0 CBC W/ DIFFERENTIAL* - Colle ct Date/Time: 09/17/2021 09:45 Test Name Code Test Result Test Units Test Ref Rang e WBC 6690-2 13.49 th/cmm L=5.00 H=10.00 NEUT % 77.9 % L=40.0 H=80.0 LYMPH % 14.7 % L=10.0 H=50.0 MONO % 84817-1 5.3 % L=2.0 H=12.0 EOS % 0.7 % L=0.0 H=8.0 BASO % 0.7 % L=0.0 H=3.0 IG % 2514-8 0.7 % L=0.0 H=1.1 NRBC % 66541-4 0.0 % L=0.0 H=0.0 NEUT abs count 751-8 10.5 th/cmm L=1.6 H=8. 4 LYMPH abs count 731-0 2.0 th/cmm L=1.5 H=4 .0 MONO abs count 742-7 0.7 th/cmm L=0.2 H=1. 0 EOS abs count 711-2 0.1 th/cmm L=0.0 H=0.5 BASO abs count 704-7 0.1 th/cmm L=0.0 H=0. 2 IG abs count 08972-4 0.1 th/cmm L=0.0 H=0.1 NRBC abs count 72279-5 0.0 mil/cmm L=0.0 H=0. 0 RBC 789-8 4.63 mil/cmm L=4.30 H=6.20 HEMOGLOBIN 718-7 13.5 gm/dL L=13.0 H=17.0 HEMATOCRIT 4544-3 42 % L=45 H=52 MCV 787-2 90 fL L=82 H=92 MCH 785-6 29.2 pg L=27.0 H=31.0 MCHC 786-4 32.4 % L=32.0 H=36.0 RDW-SD 788-0 45.2 fL L=39.0 H=49.0 PLATELET COUNT 777-3 198 th/cmm L=150 H=45 0 Active Medications Medications Administered During Visit Medication Dose Units Frequency Route Date/Time of Last Dose CeFAZolin IVPB FROZEN PREMIX : 2GM/100ML 2 GM X1 09/17/2021 11:3 0 LACTATED RINGERS 1000ML 1000 ML X1 09/17/2021 09:30 MIDAZOLAM INJ SDV: 2MG/2ML 2 MG X1 IVP 09/17/2021 10:43 MIDAZOLAM INJ SDV: 2MG/2ML 2 MG X1 IVP 09/17/2021 11:10 TEMAZEPAM CAPSULE: 7.5MG 15 MG BEDTIME PO 09/20/2021 20:11 ATORVASTATIN TABLET: 40MG 40 MG BEDTIME PO 09/20/2021 20:10 BuPROPion SR TABLET: 150MG 150 MG BID PO 09/21/2021 08:25 DEXTROSE 5% AND NACL 0.45% 1000ML 125 ML CONT 09/17/2021 20:4 3 MORPHINE INJ SYRINGE: 2MG/ML 2 MG PRN Q4H I AGRICULTURAL ECONOMICS PROFESSOR 09/17/2021 22:24 SENNA/DOCUSATE TABLET: 8.6MG/50MG 2 TAB BID PO 09/21/2021 08:2 4 ACETAMINOPHEN INJ SDV: 1000MG/100ML 1000 MG Q6H 09/17/2021 22:2 4 CeFAZolin IVPB FROZEN PREMIX : 2GM/100ML 2 GM Q8H 09/18/2021 03:5 3 HYDROcodone/ACETAMINOPHEN TA B: 5/325MG 1 TAB PRN Q4H PO 09/17/2021 20:1 1 ASPIRIN TABLET E.C.: 81MG 81 MG DAILY WITH CASIE D PO 09/21/2021 08:24 HYDROcodone/ACETAMINOPHEN TA B: 5/325MG 2 TAB PRN Q4H PO 09/18/2021 12:2 2 HYDROmorphone TABLET: 2MG 2 MG PRN Q4H PO 09/20/2021 20:23 ACETAMINOPHEN TABLET: 325MG 650 MG PRN Q4H PO 09/20/2021 20:23 VALSARTAN TABLET: 40MG 80 MG X1 PO 09/19/2021 14:21 VALSARTAN TABLET: 40MG 80 MG DAILY PO 09/21/2021 08:24 hydroCHLOROthiazide TABLET: 25MG 25 MG X1 PO 09/19/2021 14:2 0 hydroCHLOROthiazide TABLET: 25MG 25 MG DAILY PO 09/21/2021 08:2 3 CALCIUM CARBONATE TAB CHEWAB LE UD: 500MG 500 MG PRN Q2H CHEW 09/19/2021 16:5 0 FUROSEMIDE TABLET: 40MG 40 MG X1 PO 09/19/2021 18:05 FUROSEMIDE TABLET: 40MG 40 MG X1 PO 09/20/2021 08:06 POLYETHYLENE GLYCOL PACKET 3350:17GM 17 GRAMS DAILY PO 09/21/2021 08:3 0 FUROSEMIDE INJ SDV: 40MG/4ML 40 MG X1 I AGRICULTURAL ECONOMICS PROFESSOR 09/20/2021 16:35 Encounters Encounter Diagnosis Diagnosis Code Start Date Flat foot [pes planus] (acquired), left foot M21 42 09/17/2021 Social History Smoking Status Code Start Date End Date Former smoker [id number] 08/18/1995 Patient Decision Aids Unknown or Not Available. 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), left foot You had the following procedures done:Division of Left Ankle Tendon, Percutaneous ApproachFusion of Left Tarsometatarsal Joint with Nonautologous Tissue Substitute, Open ApproachDivision of Left Ankle Tendon, Open ApproachSupplement Left Ankle Tendon with Autologous Tissue Substitute, Open ApproachIntroduction of Anesthetic Agent into Peripheral Nerves and Plexi, Percutaneous ApproachAnesthesia, Nerves/Muscles/Tendons & Fascia, Lower Leg/Ankle/Foot; NOS You had the following tests done:BASIC METABOLIC PANEL (BMP)BASIC METABOLIC PANEL (BMP)BNP (PRO-B NATRIURETIC PEPTIDE)CBC W/ DIFFERENTIAL*BASIC METABOLIC PANEL (BMP)CBC W/ DIFFERENTIAL* You were discharged from [facility] on 09/21/2021 13:26 Should you have any questions prior to discharge, please contact a member of your healthcare team. If you have left the hospital and have any questions, please contact your primary care physician. Chief Complaint and Reason For Visit Chief Complaint Date of Onset LEFT FOOT ARTHRODESIS POSSIB LE DELTOID LIGAMENT RECONSTRUCTION AND ANUY OTHER NECESSARY PROCEDURES 300MIN IP Function Status Unknown or Not Available. Plan of Care Unknown or Not Available. Referral/Transition of Care Unknown or Not Available.
--- OUTSIDE RECORDS SUMMARY | 2023-09-08 15:14 | XMS_ITS | CCD ---
Author Name Unknown Address [address] [place] [address] [phone] Organization Unknown Address [address] [place] [address] [phone] Care Team Providers Care Relay Operator Name Role Phone DENISE AMEZCUA Attending Physician [phone] DENISE AMEZCUA Rounding (Secondary) Physician [phone] Vital Signs Unknown or Not Available. Allergies [...] n Start Date/Time Valsartan 160MG Oral Tablet [id number] 160 MILLIGRAMS DAILY ORAL 08:20 Prescription Detail TAKE 1 TABLET BY MOUTH DAILY Androderm 4MG/24HR Transdermal Patch, Extended Release [id number] 1 TRANSDERMAL PATCH BEDTIME TRANSDERMAL 09/25/2021 09:39 Prescription Detail APPLY 1 TRANSDERMAL PATCH TRANSDERMAL BE DTIME Aspir 81 81MG Oral Tablet, Enteric Coated [id number] 81 MILLIGRAMS DAILY ORAL 09:39 Prescription Detail TAKE 81 MILLIGRAMS ORAL DAILY Atorvastatin Calcium 80MG Oral Tablet 471550 80 MILLIGRAMS BEDTIME ORAL 022 09:39 Prescription Detail TAKE 80 MILLIGRAMS ORAL BEDTIME buPROPion Hydrochloride SR 150MG Oral Tablet, Extended Release, 12 HR 0615013 150 MILLIGRAMS TWICE A DAY ORAL 09/25/2021 09:39 Prescription Detail TAKE 150 MILLIGRAMS ORAL TWICE A DAY Calcium 600 MG Oral Tablet 788883 600 MG DAILY ORAL 09/25/19 09:39 Prescription Detail TAKE 600 MG ORAL DAILY Temazepam 15MG Oral Capsule 963895 15 MILLIGRAMS BEDTIME ORAL 2021 09:39 Prescription Detail TAKE 15 MILLIGRAMS ORAL BEDTIME Vitamin D 1000IU Oral Tablet 091570 7369 INTERNATION AL UNITS DAILY ORAL 09/25/2021 09:39 Prescription Detail TAKE 1000 INTERNATIONAL UNITS ORAL DAILY Medications Administered During Visit Unknown or Not Available. Encounters Encounter Diagnosis Diagnosis Code Start Date Removal of suture [id number] 10/02/2021 Social History Smoking Status Code Start Date End Date Former smoker [id number] 08/18/1995 Patient Decision Aids Unknown or Not Available. Discharge Instructions You were admitted to on 10/02/2021 11:15 with a principal diagnosis of Encounter for removal of sutures You were discharged from on 10/02/2021 00:00 Should you have any questions prior [...]
--- OUTSIDE RECORDS SUMMARY | 2023-09-08 15:14 | XMS_ITS | CCD ---
Author Name Unknown Address [address] [place] [address] [id number] Organization Unknown Address [address] [place] [address] [phone] Care Team Providers Care Adhesive Sprayer Name Role Phone SALOMON SRINIVASAN Attending Physician [phone] Vital Signs Vital Sign Value Unit Date/Time Recent/Initial ? BP Systolic 127 mmHg 09/21/2021 19:58 Initial VS BP Diastolic 76 mmHg 09/21/2021 19:58 Initia l VS Respiratory Rate 18 bpm 09/21/2021 19:58 In itial VS Heart Rate 77 bpm 09/21/2021 19:58 Initial VS O2 % BldC Oximetry 92 % 09/21/2021 19:58 Initial VS Body Temperature 36.7 degrees 09/21/2021 19:58 In itial VS BMI (Body Mass Index) 28.98 kg/m^2 09/24/2021 12: 12 Initial VS Weight Measured 213.65 lbs 09/24/2021 12:12 Ini tial VS Height 72 in 09/24/2021 12:12 Initial VS BSA (Body Surface Area) 2.22 m^2 09/24/2021 1 2:12 Initial VS BP Systolic 139 mmHg 09/25/2021 07:30 Most Re cent VS BP Diastolic 80 mmHg 09/25/2021 07:30 Most R ecent VS Respiratory Rate 16 bpm 09/25/2021 07:[address] Recent VS Heart Rate 65 bpm 09/25/2021 07:30 Most Rec ent VS O2 % BldC Oximetry 95 % 09/25/2021 07:30 Most Recent VS Body Temperature 36.4 degrees 09/25/2021 07:[address] Recent VS Allergies Allergy Code [...] BASIC METABOLIC PANEL (BMP) - Collect Date/Time: 09/24/2021 09:17 Test Name Code Test Result Test Units Test Ref Rang e GLUCOSE 2345-7 132 mg/dL L=70 H=116 BUN 3094-0 29 mg/dL L=6 H=25 CREATININE 2160-0 1.51 mg/dL L=0.67 H=1.17 SODIUM SERUM 2951-2 128 mmol/L L=136 H=145 POTASSIUM SERUM 2823-3 3.9 mmol/L L=3.4 H=5 .2 CHLORIDE SERUM 2075-0 93 mmol/L L=96 H=110 CARBON DIOXIDE (CO2) 2028-9 29 mmol/L L=22 H=34 ANION GAP 17363-6 6.1 mmol/L CALCIUM SERUM 20305-6 8.5 mg/dL L=8.2 H=10. 2 AGE 80 years eGFR (non-Afr.Amer.) 09678-8 45 mL/min eGFR (Afr-Greek) 76145-4 54 mL/min BASIC METABOLIC PANEL (BMP) - Collect Date/Time: 09/23/2021 06:05 Test Name Code Test Result Test Units Test Ref Rang e GLUCOSE 2345-7 105 mg/dL L=70 H=116 BUN 3094-0 33 mg/dL L=6 H=25 CREATININE 2160-0 1.49 mg/dL L=0.67 H=1.17 SODIUM SERUM 2951-2 127 mmol/L L=136 H=145 POTASSIUM SERUM 2823-3 3.5 mmol/L L=3.4 H=5 .2 CHLORIDE SERUM 2075-0 90 mmol/L L=96 H=110 CARBON DIOXIDE (CO2) 2028-9 30 mmol/L L=22 H=34 ANION GAP 63521-9 7.5 mmol/L CALCIUM SERUM 98603-0 8.4 mg/dL L=8.2 H=10. 2 AGE 80 years eGFR (non-Afr.Amer.) 74841-6 45 mL/min eGFR (Afr-Greek) 24328-2 55 mL/min BASIC METABOLIC PANEL (BMP) - Collect Date/Time: 09/22/2021 06:15 Test Name Code Test Result Test Units Test Ref Rang e GLUCOSE 2345-7 103 mg/dL L=70 H=116 BUN 3094-0 37 mg/dL L=6 H=25 CREATININE 2160-0 1.74 mg/dL L=0.67 H=1.17 SODIUM SERUM 2951-2 126 mmol/L L=136 H=145 POTASSIUM SERUM 2823-3 3.4 mmol/L L=3.4 H=5 .2 CHLORIDE SERUM 2075-0 87 mmol/L L=96 H=110 CARBON DIOXIDE (CO2) 2028-9 28 mmol/L L=22 H=34 ANION GAP 19808-3 10.9 mmol/L CALCIUM SERUM 12748-0 8.2 mg/dL L=8.2 H=10. 2 AGE 80 years eGFR (non-Afr.Amer.) 86423-1 38 mL/min eGFR (Afr-Greek) 16001-4 46 mL/min Active Medications Medications Administered During Visit Medication Dose Units Frequency Route Date/Time of Last Dose FUROSEMIDE TABLET: 40MG 40 MG X1 PO 09/21/2021 14:15 LOPERAMIDE CAPSULE: 2MG 2 MG PRN PO 09/22/2021 09:54 TEMAZEPAM CAPSULE: 7.5MG 15 MG BEDTIME PO 09/24/2021 20:20 ATORVASTATIN TABLET: 40MG 40 MG BEDTIME PO 09/24/2021 20:20 BuPROPion SR TABLET: 150MG 150 MG BID PO 09/25/2021 09:40 ASPIRIN TABLET E.C.: 81MG 81 MG DAILY WITH CASIE D PO 09/25/2021 09:40 ACETAMINOPHEN TABLET: 325MG 650 MG PRN Q4H PO 09/24/2021 20:20 VALSARTAN TABLET: 40MG 80 MG DAILY PO 09/23/2021 07:53 hydroCHLOROthiazide TABLET: 25MG 25 MG DAILY PO 09/22/2021 09:5 4 VALSARTAN TABLET: 160MG 80 MG DAILY PO 09/25/2021 09:40 Encounters Encounter Diagnosis Diagnosis Code Start Date Encounter for other orthopedic aftercare [id number] 09/21/2021 Social History Smoking Status Code Start Date End Date Former smoker [id number] 08/18/1995 Patient Decision Aids Patient Decision Aid Patient Portal Access Surgical Site Infections Discharge Instructions You were admitted to [facility] on 09/21/2021 13:35 with a principal diagnosis of Encounter for other orthopedic aftercare You had the following tests done:BASIC METABOLIC PANEL (BMP)BASIC METABOLIC PANEL (BMP)BASIC METABOLIC PANEL (BMP) You were discharged from [facility] on 09/25/2021 13:30 Should you have any questions prior to [...]
--- OUTSIDE RECORDS SUMMARY | 2023-09-08 15:14 | XMS_ITS | CCD ---
Author Name Unknown Address [address] [place] [address] [phone] Organization Unknown Address [address] [place] [address] [phone] Care Team Providers Care Order Checker Packer Processer Name Role Phone SALOMON SRINIVASAN Attending Physician [phone] SALOMON SRINIVASAN Rounding (Secondary) Physician [phone] Vital Signs Unknown or Not Available. Allergies [...] n Start Date/Time Valsartan 160MG Oral Tablet [id number] 160 MILLIGRAMS DAILY ORAL 08:20 Prescription Detail TAKE 1 TABLET BY MOUTH DAILY Androderm 4MG/24HR Transdermal Patch, Extended Release 5845895 1 TRANSDERMAL PATCH BEDTIME TRANSDERMAL 09/25/2021 09:39 Prescription Detail APPLY 1 TRANSDERMAL PATCH TRANSDERMAL BE DTIME Aspir 81 81MG Oral Tablet, Enteric Coated [id number] 81 MILLIGRAMS DAILY ORAL 09:39 Prescription Detail TAKE 81 MILLIGRAMS ORAL DAILY Atorvastatin Calcium 80MG Oral Tablet 950086 80 MILLIGRAMS BEDTIME ORAL 022 09:39 Prescription Detail TAKE 80 MILLIGRAMS ORAL BEDTIME buPROPion Hydrochloride SR 150MG Oral Tablet, Extended Release, 12 HR [id number] 150 MILLIGRAMS TWICE A DAY ORAL 09/25/2021 09:39 Prescription Detail TAKE 150 MILLIGRAMS ORAL TWICE A DAY Calcium 600 MG Oral Tablet 981653 600 MG DAILY ORAL 09/25/19 09:39 Prescription Detail TAKE 600 MG ORAL DAILY Temazepam 15MG Oral Capsule 991760 15 MILLIGRAMS BEDTIME ORAL 2021 09:39 Prescription Detail TAKE 15 MILLIGRAMS ORAL BEDTIME Vitamin D 1000IU Oral Tablet 029807 5913 INTERNATION AL UNITS DAILY ORAL 09/25/2021 09:39 Prescription Detail TAKE 1000 INTERNATIONAL UNITS ORAL DAILY Medications Administered During Visit Unknown or Not Available. Encounters Encounter Diagnosis Diagnosis Code Start Date Arthrodesis [id number] 10/30/2021 Social History Smoking Status Code Start Date End Date Former smoker [id number] 08/18/1995 Patient Decision Aids Unknown or Not Available. Discharge Instructions You were admitted to [facility] on 10/30/2021 16:03 with a principal diagnosis of Arthrodesis status You were discharged from [facility] on 10/30/2021 00:00 Should you have any questions prior [...]
--- OUTSIDE RECORDS SUMMARY | 2023-09-08 15:14 | XMS_ITS | CCD ---
Author Name Unknown Address [address] [place] [address] [phone] Organization Unknown Address [address] [place] [address] [phone] Care Team Providers Care Firer Boiler Name Role Phone SALOMON SRINIVASAN Attending Physician [phone] Vital Signs Unknown or Not Available. Allergies Allergy Code Allergy Type Reaction Status OXYCODONE 7804 Drug allergy Nausea Active Procedures Unknown or Not Available. History of Immunizations Immunization Code Date COVID-19, mRNA, LNP-S, PF, 100 mcg/0.5mL dose or 50 mcg/0.25mL dose 09/19/2020 COVID-19, mRNA, LNP-S, PF, 100 mcg/0.5mL dose or 50 mcg/0.25mL dose 10/17/2020 Problems Unknown or Not Available. Results PIERRE GIPSONID MEDARDO* - Pushpa ect Date/Time: 09/14/2021 09:51 Test Name Code Test Result Test Units Test Ref Rang e Tier- 45704-5 PRE-OP N/A SARS COV2 RNA: 08661-4 NEGATIVE N/A REFERENCE RANGE: NEGAT Active Medications Medication Code Dose Units Frequency Route Modificatio n Start Date/Time Valsartan 160MG Oral Tablet 654896 160 MILLIGRAMS DAILY ORAL 08:20 Prescription Detail TAKE 1 TABLET BY MOUTH DAILY Androderm 4MG/24HR Transdermal Patch, Extended Release 4111159 1 TRANSDERMAL PATCH BEDTIME TRANSDERMAL 09/25/2021 09:39 Prescription Detail APPLY 1 TRANSDERMAL PATCH TRANSDERMAL BE DTIME Aspir 81 81MG Oral Tablet, Enteric Coated [id number] 81 MILLIGRAMS DAILY ORAL 09:39 Prescription Detail TAKE 81 MILLIGRAMS ORAL DAILY Atorvastatin Calcium 80MG Oral Tablet 811983 80 MILLIGRAMS BEDTIME ORAL 022 09:39 Prescription Detail TAKE 80 MILLIGRAMS ORAL BEDTIME buPROPion Hydrochloride SR 150MG Oral Tablet, Extended Release, 12 HR [id number] 150 MILLIGRAMS TWICE A DAY ORAL 09/25/2021 09:39 Prescription Detail TAKE 150 MILLIGRAMS ORAL TWICE A DAY Calcium 600 MG Oral Tablet 143481 600 MG DAILY ORAL 09/25/19 09:39 Prescription Detail TAKE 600 MG ORAL DAILY Temazepam 15MG Oral Capsule 686191 15 MILLIGRAMS BEDTIME ORAL 2021 09:39 Prescription Detail TAKE 15 MILLIGRAMS ORAL BEDTIME Vitamin D 1000IU Oral Tablet 566597 3137 INTERNATION AL UNITS DAILY ORAL 09/25/2021 09:39 Prescription Detail TAKE 1000 INTERNATIONAL UNITS ORAL DAILY Medications Administered During Visit Unknown or Not Available. Encounters Encounter Diagnosis Diagnosis Code Start Date Pre-surgery testing [id number] 09/14/2021 Social History Smoking Status Code Start Date End Date Former smoker [id number] 08/18/1995 Patient Decision Aids Unknown or Not Available. Discharge Instructions You were admitted to [facility] on 09/14/2021 05:50 with a principal diagnosis of Encounter for preprocedural laboratory examination You had the following tests done:PIERRE MITCHELL RHEONIX* You were discharged from [facility] on 09/14/2021 05:50 Should you have any questions prior to [...]
--- OUTSIDE RECORDS SUMMARY | 2023-09-08 15:14 | XMS_ITS | CCD ---
Author Name Unknown Address [address] [place] [address] [phone] Organization Unknown Address [address] [place] [address] [phone] Care Team Providers Care Rn Social Services Name Role Phone SALOMON SRINIVASAN Attending Physician [phone] Vital Signs Unknown or Not Available. Allergies [...] n Start Date/Time Valsartan 160MG Oral Tablet 336008 160 MILLIGRAMS DAILY ORAL 08:20 Prescription Detail TAKE 1 TABLET BY MOUTH DAILY Androderm 4MG/24HR Transdermal Patch, Extended Release 3493135 1 TRANSDERMAL PATCH BEDTIME TRANSDERMAL 09/25/2021 09:39 Prescription Detail APPLY 1 TRANSDERMAL PATCH TRANSDERMAL BE DTIME Aspir 81 81MG Oral Tablet, Enteric Coated [id number] 81 MILLIGRAMS DAILY ORAL 09:39 Prescription Detail TAKE 81 MILLIGRAMS ORAL DAILY Atorvastatin Calcium 80MG Oral Tablet 055134 80 MILLIGRAMS BEDTIME ORAL 022 09:39 Prescription Detail TAKE 80 MILLIGRAMS ORAL BEDTIME buPROPion Hydrochloride SR 150MG Oral Tablet, Extended Release, 12 HR [id number] 150 MILLIGRAMS TWICE A DAY ORAL 09/25/2021 09:39 Prescription Detail TAKE 150 MILLIGRAMS ORAL TWICE A DAY Calcium 600 MG Oral Tablet 290187 600 MG DAILY ORAL 09/25/19 09:39 Prescription Detail TAKE 600 MG ORAL DAILY Temazepam 15MG Oral Capsule 19811116 15 MILLIGRAMS BEDTIME ORAL 2021 09:39 Prescription Detail TAKE 15 MILLIGRAMS ORAL BEDTIME Vitamin D 1000IU Oral Tablet 771425 2103 INTERNATION AL UNITS DAILY ORAL 09/25/2021 09:39 Prescription Detail TAKE 1000 INTERNATIONAL UNITS ORAL DAILY Medications Administered During Visit Unknown or Not Available. Encounters Encounter Diagnosis Diagnosis Code Start Date Encounter for other orthopedic aftercare [id number] 09/21/2021 Social History Smoking Status Code Start Date End Date Former smoker [id number] 08/18/1995 Patient Decision Aids Unknown or Not Available. Discharge Instructions You were admitted to [facility] on 09/21/2021 09:54 with a principal diagnosis of Encounter for other orthopedic aftercare You were discharged from [facility] on 09/25/2021 09:55 Should you have any questions prior to [...]
--- OUTSIDE RECORDS SUMMARY | 2023-09-08 15:15 | XMS_ITS | CCD ---
Author Name Unknown Address [address] [place] [address] [id number] Organization Unknown Address [address] [place] [address] [phone] Care Team Providers Care Aboriginal Education Teacher Name Role Phone SALOMON SRINIVASAN Attending Physician [phone] SALOMON SRINIVASAN Rounding (Secondary) Physician [phone] Vital Signs Unknown or Not Available. Allergies Unknown or Not Available. Procedures Unknown or Not Available. History of Immunizations Immunization Code Date COVID-19, mRNA, LNP-S, PF, 100 mcg/0.5mL dose or 50 mcg/0.25mL dose 09/19/2020 COVID-19, mRNA, LNP-S, PF, 100 mcg/0.5mL dose or 50 mcg/0.25mL dose 10/17/2020 Problems Unknown or Not Available. Results Unknown or Not Available. Active Medications Medication Code Dose Units Frequency Route Modificatio n Start Date/Time Valsartan 160MG Oral Tablet [id number] 160 MILLIGRAMS DAILY ORAL 08:20 Prescription Detail TAKE 1 TABLET BY MOUTH DAILY Androderm 4MG/24HR Transdermal Patch, Extended Release 0281532 1 TRANSDERMAL PATCH BEDTIME TRANSDERMAL 09/25/2021 09:39 Prescription Detail APPLY 1 TRANSDERMAL PATCH TRANSDERMAL BE DTIME Aspir 81 81MG Oral Tablet, Enteric Coated [id number] 81 MILLIGRAMS DAILY ORAL 09:39 Prescription Detail TAKE 81 MILLIGRAMS ORAL DAILY Atorvastatin Calcium 80MG Oral Tablet 648030 80 MILLIGRAMS BEDTIME ORAL 022 09:39 Prescription Detail TAKE 80 MILLIGRAMS ORAL BEDTIME buPROPion Hydrochloride SR 150MG Oral Tablet, Extended Release, 12 HR [id number] 150 MILLIGRAMS TWICE A DAY ORAL 09/25/2021 09:39 Prescription Detail TAKE 150 MILLIGRAMS ORAL TWICE A DAY Calcium 600 MG Oral Tablet 234268 600 MG DAILY ORAL 09/25/19 09:39 Prescription Detail TAKE 600 MG ORAL DAILY Temazepam 15MG Oral Capsule 964187 15 MILLIGRAMS BEDTIME ORAL 2021 09:39 Prescription Detail TAKE 15 MILLIGRAMS ORAL BEDTIME Vitamin D 1000IU Oral Tablet 552014 6100 INTERNATION AL UNITS DAILY ORAL 09/25/2021 09:39 Prescription Detail TAKE 1000 INTERNATIONAL UNITS ORAL DAILY Medications Administered During Visit Unknown or Not Available. Encounters Encounter Diagnosis Diagnosis Code Start Date Flat foot [pes planus] (acquired), left foot M21 42 07/24/2021 Social History Smoking Status Code Start Date End Date Former smoker [id number] 08/18/1995 Patient Decision Aids Unknown or Not Available. Discharge Instructions You were admitted to [facility] on 07/24/2021 10:13 with a principal diagnosis of Flat foot of lt foot You were discharged from [facility] on 07/24/2021 00:00 Should you have any questions prior [...]
--- OUTSIDE RECORDS SUMMARY | 2023-09-08 15:15 | XMS_ITS | CCD ---
Author Name Unknown Address [address] [place] [address] [phone] Organization Unknown Address [address] [place] [address] [phone] Care Team Providers Care Senior Product Marketing Manager Name Role Phone SALOMON SRINIVASAN Attending Physician [phone] Vital Signs Unknown or Not Available. Allergies [...] n Start Date/Time Valsartan 160MG Oral Tablet [id number] 160 MILLIGRAMS DAILY ORAL 08:20 Prescription Detail TAKE 1 TABLET BY MOUTH DAILY Androderm 4MG/24HR Transdermal Patch, Extended Release 7599826 1 TRANSDERMAL PATCH BEDTIME TRANSDERMAL 09/25/2021 09:39 Prescription Detail APPLY 1 TRANSDERMAL PATCH TRANSDERMAL BE DTIME Aspir 81 81MG Oral Tablet, Enteric Coated [id number] 81 MILLIGRAMS DAILY ORAL 09:39 Prescription Detail TAKE 81 MILLIGRAMS ORAL DAILY Atorvastatin Calcium 80MG Oral Tablet 534623 80 MILLIGRAMS BEDTIME ORAL 022 09:39 Prescription Detail TAKE 80 MILLIGRAMS ORAL BEDTIME buPROPion Hydrochloride SR 150MG Oral Tablet, Extended Release, 12 HR [id number] 150 MILLIGRAMS TWICE A DAY ORAL 09/25/2021 09:39 Prescription Detail TAKE 150 MILLIGRAMS ORAL TWICE A DAY Calcium 600 MG Oral Tablet 323862 600 MG DAILY ORAL 09/25/19 22 09:39 Prescription Detail TAKE 600 MG ORAL DAILY Temazepam 15MG Oral Capsule 19811116 15 MILLIGRAMS BEDTIME ORAL 2021 09:39 Prescription Detail TAKE 15 MILLIGRAMS ORAL BEDTIME Vitamin D 1000IU Oral Tablet 285327 9234 INTERNATION AL UNITS DAILY ORAL 09/25/2021 09:39 Prescription Detail TAKE 1000 INTERNATIONAL UNITS ORAL DAILY Medications Administered During Visit Unknown or Not Available. Encounters Encounter Diagnosis Diagnosis Code Start Date Abnormal findings on diagnostic imaging of limbs R936 07/17/2021 Social History Smoking Status Code Start Date End Date Former smoker [id number] 08/18/1995 Patient Decision Aids Unknown or Not Available. Discharge Instructions You were admitted to [facility] on 07/17/2021 01:07 with a principal diagnosis of Abnormal findings on diagnostic imaging of limbs You were discharged from [facility] on 07/17/2021 01:07 Should you have any questions prior to discharge, please contact a member of your healthcare team. If you have left the hospital and have any questions, please contact your primary care physician. Chief Complaint and Reason For Visit Chief Complaint Date of Onset L ANKLE PAIN, INSTABILITY Function Status Unknown or Not Available. Plan of Care Unknown or Not Available. Referral/Transition of Care Unknown or Not Available.
--- OUTSIDE RECORDS SUMMARY | 2023-09-08 15:20 | XMS_ITS | CCD ---
Author Name Unknown Address [address] [place] [address] [phone] Organization Unknown Address [address] [place] [address] [phone] Care Team Providers Care Prison Librarian Name Role Phone SALOMON SRINIVASAN MD Attending Physician [phone] Vital Signs Unknown or Not Available. Allergies [...] n Start Date/Time Valsartan 160MG Oral Tablet 117915 160 MILLIGRAMS DAILY ORAL 08:20 Prescription Detail TAKE 1 TABLET BY MOUTH DAILY Androderm 4MG/24HR Transdermal Patch, Extended Release [id number] 1 TRANSDERMAL PATCH BEDTIME TRANSDERMAL 09/25/2021 09:39 Prescription Detail APPLY 1 TRANSDERMAL PATCH TRANSDERMAL BE DTIME Aspir 81 81MG Oral Tablet, Enteric Coated [id number] 81 MILLIGRAMS DAILY ORAL 09:39 Prescription Detail TAKE 81 MILLIGRAMS ORAL DAILY Atorvastatin Calcium 80MG Oral Tablet 825986 80 MILLIGRAMS BEDTIME ORAL 022 09:39 Prescription Detail TAKE 80 MILLIGRAMS ORAL BEDTIME buPROPion Hydrochloride SR 150MG Oral Tablet, Extended Release, 12 HR [id number] 150 MILLIGRAMS TWICE A DAY ORAL 09/25/2021 09:39 Prescription Detail TAKE 150 MILLIGRAMS ORAL TWICE A DAY Calcium 600 MG Oral Tablet 089992 600 MG DAILY ORAL 09/25/19 22 09:39 Prescription Detail TAKE 600 MG ORAL DAILY Temazepam 15MG Oral Capsule 19811116 15 MILLIGRAMS BEDTIME ORAL 2021 09:39 Prescription Detail TAKE 15 MILLIGRAMS ORAL BEDTIME Vitamin D 1000IU Oral Tablet 045078 6685 INTERNATION AL UNITS DAILY ORAL 09/25/2021 09:39 Prescription Detail TAKE 1000 INTERNATIONAL UNITS ORAL DAILY Medications Administered During Visit Unknown or Not Available. Encounters Encounter Diagnosis Diagnosis Code Start Date Flat foot [pes planus] (acquired), left foot M21 42 04/30/2021 Social History Smoking Status Code Start Date End Date Former smoker [id number] 08/18/1995 Patient Decision Aids Unknown or Not Available. 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
[2023-09-08 15:43] LABS: ALT 29 U/L (16-63); AST 25 U/L (15-37); Albumin 3.2 g/dL (3.4-5.0); Alkaline Phosphatase 113 U/L (46-116); Anion Gap 6.2 mmol/L (3-11); BUN 32 mg/dL (7-18); Bilirubin, Total 0.6 mg/dL (0.2-1.0); CO2 26.8 mmol/L (21.0-32.0); CREATININE 1.7 mg/dL (0.70-1.30); Chloride 105 mmol/L (98-107); Estimated GFR 39.51 (mL/min/1.73m2); Ferritin 233 ng/mL (26-388); Glucose 75 mg/dL (74-106); Potassium 4.8 mmol/L (3.5-5.1); Sodium 138 mmol/L (136-145); Total Protein 6.2 g/dL (6.4-8.2)
[2023-09-08 15:50] LABS: Calcium 8.6 mg/dL (8.5-10.1)
== END 2023-09-08 15:12 | disposition home or self-care (01) ==
LOC: NCHCN 15:11
PROVIDERS: PCP Family Medicine; Visit Provider Family Medicine
DX: D64.9 Anemia, unspecified (principal); I10 Essential (primary) hypertension
CPT/HCPCS: 80053; 82728; 85025

== ENCOUNTER 2023-09-18 15:31 | Outpatient (CLI) | payer MEDICARE, SELFPAY ==
--- NOTE | 2023-09-18 11:30 | DI.RAD_ITS ---
Exam(s) XR KNEE RT 2V AP,LAT EXAM: XR KNEE RT 2V AP,LAT CLINICAL HISTORY: knee pain. TECHNIQUE: 2D digital imaging was performed. 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 There is also a lateral fixation plate overload ipsilateral femur secured by multiple screws and appearing stable. There is no evidence of. Twenty-two IMPRESSION: Stable appearance. DATA REPOSITORY: RADIATION DOSE DELIVERED:
--- OUTSIDE RECORDS SUMMARY | 2023-09-18 15:33 | XMS_ITS | CCD ---
Author Name Unknown Address [address] [place] [address] [phone] Organization Unknown Address [address] [place] [address] [phone] Care Team Providers Care Senior Game Developer Name Role Phone SALOMON SRINIVASAN Attending Physician [phone] SALOMON SRINIVASAN Rounding (Secondary) Physician [phone] Vital Signs Unknown or Not Available. Allergies [...] n Start Date/Time Valsartan 160MG Oral Tablet [id number] 160 MILLIGRAMS DAILY ORAL 08:20 Prescription Detail TAKE 1 TABLET BY MOUTH DAILY Androderm 4MG/24HR Transdermal Patch, Extended Release [id number] 1 TRANSDERMAL PATCH BEDTIME TRANSDERMAL 09/25/2021 09:39 Prescription Detail APPLY 1 TRANSDERMAL PATCH TRANSDERMAL BE DTIME Aspir 81 81MG Oral Tablet, Enteric Coated [id number] 81 MILLIGRAMS DAILY ORAL 09:39 Prescription Detail TAKE 81 MILLIGRAMS ORAL DAILY Atorvastatin Calcium 80MG Oral Tablet 960104 80 MILLIGRAMS BEDTIME ORAL 022 09:39 Prescription Detail TAKE 80 MILLIGRAMS ORAL BEDTIME buPROPion Hydrochloride SR 150MG Oral Tablet, Extended Release, 12 HR [id number] 150 MILLIGRAMS TWICE A DAY ORAL 09/25/2021 09:39 Prescription Detail TAKE 150 MILLIGRAMS ORAL TWICE A DAY Calcium 600 MG Oral Tablet 232284 600 MG DAILY ORAL 09/25/19 09:39 Prescription Detail TAKE 600 MG ORAL DAILY Temazepam 15MG Oral Capsule 352927 15 MILLIGRAMS BEDTIME ORAL 2021 09:39 Prescription Detail TAKE 15 MILLIGRAMS ORAL BEDTIME Vitamin D 1000IU Oral Tablet 104477 6517 INTERNATION AL UNITS DAILY ORAL 09/25/2021 09:39 Prescription Detail TAKE 1000 INTERNATIONAL UNITS ORAL DAILY Medications Administered During Visit Unknown or Not Available. Encounters Encounter Diagnosis Diagnosis Code Start Date Arthrodesis [id number] 06/10/2022 Social History Smoking Status Code Start Date End Date Former smoker [id number] 08/18/1995 Patient Decision Aids Unknown or Not Available. Discharge Instructions You were admitted to [facility] on 06/10/2022 14:34 with a principal diagnosis of Arthrodesis status You were discharged from [facility] on 06/10/2022 00:00 Should you have any [...]
--- OUTSIDE RECORDS SUMMARY | 2023-09-18 15:33 | XMS_ITS | CCD ---
Author Name Unknown Address [address] [place] [address] [phone] Organization Unknown Address [address] [place] [address] [phone] Care Team Providers Care Investigator Cash Shortage Name Role Phone SALOMON SRINIVASAN Attending Physician [phone] SALOMON SRINIVASAN Rounding (Secondary) Physician [phone] Vital Signs Unknown or Not Available. Allergies [...] n Start Date/Time Valsartan 160MG Oral Tablet 470314 160 MILLIGRAMS DAILY ORAL 08:20 Prescription Detail TAKE 1 TABLET BY MOUTH DAILY Androderm 4MG/24HR Transdermal Patch, Extended Release 1921900 1 TRANSDERMAL PATCH BEDTIME TRANSDERMAL 09/25/2021 09:39 Prescription Detail APPLY 1 TRANSDERMAL PATCH TRANSDERMAL BE DTIME Aspir 81 81MG Oral Tablet, Enteric Coated [id number] 81 MILLIGRAMS DAILY ORAL 09:39 Prescription Detail TAKE 81 MILLIGRAMS ORAL DAILY Atorvastatin Calcium 80MG Oral Tablet 430575 80 MILLIGRAMS BEDTIME ORAL 022 09:39 Prescription Detail TAKE 80 MILLIGRAMS ORAL BEDTIME buPROPion Hydrochloride SR 150MG Oral Tablet, Extended Release, 12 HR 0046797 150 MILLIGRAMS TWICE A DAY ORAL 09/25/2021 09:39 Prescription Detail TAKE 150 MILLIGRAMS ORAL TWICE A DAY Calcium 600 MG Oral Tablet 091007 600 MG DAILY ORAL 09/25/19 09:39 Prescription Detail TAKE 600 MG ORAL DAILY Temazepam 15MG Oral Capsule 648341 15 MILLIGRAMS BEDTIME ORAL 2021 09:39 Prescription Detail TAKE 15 MILLIGRAMS ORAL BEDTIME Vitamin D 1000IU Oral Tablet 302287 1159 INTERNATION AL UNITS DAILY ORAL 09/25/2021 09:39 Prescription Detail TAKE 1000 INTERNATIONAL UNITS ORAL DAILY Medications Administered During Visit Unknown or Not Available. Encounters Encounter Diagnosis Diagnosis Code Start Date Arthrodesis [id number] 12/11/2021 Social History Smoking Status Code Start Date End Date Former smoker [id number] 08/18/1995 Patient Decision Aids Unknown or Not Available. Discharge Instructions You were admitted to [facility] on 12/11/2021 13:37 with a principal diagnosis of Arthrodesis status You were discharged from [facility] on 12/11/2021 00:00 Should you have [...]
--- OUTSIDE RECORDS SUMMARY | 2023-09-18 15:33 | XMS_ITS | CCD ---
Author Name Unknown Address [address] [place] [address] [phone] Organization Unknown Address [address] [place] [address] [phone] Care Team Providers Care Helicopter Specialist Name Role Phone SALOMON SRINIVASAN Attending Physician [phone] Vital Signs Unknown or Not Available. Allergies [...] n Start Date/Time Valsartan 160MG Oral Tablet [id number] 160 MILLIGRAMS DAILY ORAL 08:20 Prescription Detail TAKE 1 TABLET BY MOUTH DAILY Androderm 4MG/24HR Transdermal Patch, Extended Release [id number] 1 TRANSDERMAL PATCH BEDTIME TRANSDERMAL 09/25/2021 09:39 Prescription Detail APPLY 1 TRANSDERMAL PATCH TRANSDERMAL BE DTIME Aspir 81 81MG Oral Tablet, Enteric Coated [id number] 81 MILLIGRAMS DAILY ORAL 09:39 Prescription Detail TAKE 81 MILLIGRAMS ORAL DAILY Atorvastatin Calcium 80MG Oral Tablet [id number] 80 MILLIGRAMS BEDTIME ORAL 022 09:39 Prescription Detail TAKE 80 MILLIGRAMS ORAL BEDTIME buPROPion Hydrochloride SR 150MG Oral Tablet, Extended Release, 12 HR [id number] 150 MILLIGRAMS TWICE A DAY ORAL 09/25/2021 09:39 Prescription Detail TAKE 150 MILLIGRAMS ORAL TWICE A DAY Calcium 600 MG Oral Tablet [id number] 600 MG DAILY ORAL 09/25/19 09:39 Prescription Detail TAKE 600 MG ORAL DAILY Temazepam 15MG Oral Capsule [id number] 15 MILLIGRAMS BEDTIME ORAL 2021 09:39 Prescription Detail TAKE 15 MILLIGRAMS ORAL BEDTIME Vitamin D 1000IU Oral Tablet 982970 7718 INTERNATION AL UNITS DAILY ORAL 09/25/2021 09:39 Prescription Detail TAKE 1000 INTERNATIONAL UNITS ORAL DAILY Medications Administered During Visit Unknown or Not Available. Encounters Encounter Diagnosis Diagnosis Code Start Date Encounter for other orthopedic aftercare [id number] 09/21/2021 Social History Smoking Status Code Start Date End Date Former smoker [id number] 08/18/1995 Patient Decision Aids Unknown or Not Available. Discharge Instructions You were admitted to [facility] on 09/21/2021 09:54 with a principal diagnosis of Encounter for other orthopedic aftercare You were discharged from [facility] on 09/25/2021 09:55 Should you have any [...]
--- OUTSIDE RECORDS SUMMARY | 2023-09-18 15:33 | XMS_ITS | CCD ---
Author Name Unknown Address [address] [place] [address] [phone] Organization Unknown Address [address] [place] [address] [phone] Care Team Providers Care Qc Manager Name Role Phone SALOMON SRINIVASAN Attending Physician [phone] SALOMON SRINIVASAN Rounding (Secondary) Physician [phone] Vital Signs Unknown or Not Available. Allergies [...] n Start Date/Time Valsartan 160MG Oral Tablet [id number] 160 MILLIGRAMS DAILY ORAL 08:20 Prescription Detail TAKE 1 TABLET BY MOUTH DAILY Androderm 4MG/24HR Transdermal Patch, Extended Release [id number] 1 TRANSDERMAL PATCH BEDTIME TRANSDERMAL 09/25/2021 09:39 Prescription Detail APPLY 1 TRANSDERMAL PATCH TRANSDERMAL BE DTIME Aspir 81 81MG Oral Tablet, Enteric Coated [id number] 81 MILLIGRAMS DAILY ORAL 09:39 Prescription Detail TAKE 81 MILLIGRAMS ORAL DAILY Atorvastatin Calcium 80MG Oral Tablet 306651 80 MILLIGRAMS BEDTIME ORAL 022 09:39 Prescription Detail TAKE 80 MILLIGRAMS ORAL BEDTIME buPROPion Hydrochloride SR 150MG Oral Tablet, Extended Release, 12 HR [id number] 150 MILLIGRAMS TWICE A DAY ORAL 09/25/2021 09:39 Prescription Detail TAKE 150 MILLIGRAMS ORAL TWICE A DAY Calcium 600 MG Oral Tablet 647449 600 MG DAILY ORAL 09/25/19 09:39 Prescription Detail TAKE 600 MG ORAL DAILY Temazepam 15MG Oral Capsule 746797 15 MILLIGRAMS BEDTIME ORAL 2021 09:39 Prescription Detail TAKE 15 MILLIGRAMS ORAL BEDTIME Vitamin D 1000IU Oral Tablet 846292 7177 INTERNATION AL UNITS DAILY ORAL 09/25/2021 09:39 Prescription Detail TAKE 1000 INTERNATIONAL UNITS ORAL DAILY Medications Administered During Visit Unknown or Not Available. Encounters Encounter Diagnosis Diagnosis Code Start Date Arthrodesis [id number] 10/30/2021 Social History Smoking Status Code Start Date End Date Former smoker [id number] 08/18/1995 Patient Decision Aids Unknown or Not Available. Discharge Instructions You were admitted to [facility] on 10/30/2021 16:03 with a principal diagnosis of Arthrodesis status You were discharged from [facility] on 10/30/2021 00:00 Should you have any [...]
--- OUTSIDE RECORDS SUMMARY | 2023-09-18 15:34 | XMS_ITS | CCD ---
Author Name Unknown Address [address] [place] [address] [phone] Organization Unknown Address [address] [place] [address] [phone] Care Team Providers Care Buttonhole Facer Name Role Phone SALOMON SRINIVASAN Attending Physician [phone] SALOMON SRINIVASAN Rounding (Secondary) Physician [phone] Vital Signs Unknown or Not Available. Allergies [...] n Start Date/Time Valsartan 160MG Oral Tablet [id number] 160 MILLIGRAMS DAILY ORAL 08:20 Prescription Detail TAKE 1 TABLET BY MOUTH DAILY Androderm 4MG/24HR Transdermal Patch, Extended Release [id number] 1 TRANSDERMAL PATCH BEDTIME TRANSDERMAL 09/25/2021 09:39 Prescription Detail APPLY 1 TRANSDERMAL PATCH TRANSDERMAL BE DTIME Aspir 81 81MG Oral Tablet, Enteric Coated [id number] 81 MILLIGRAMS DAILY ORAL 09:39 Prescription Detail TAKE 81 MILLIGRAMS ORAL DAILY Atorvastatin Calcium 80MG Oral Tablet [id number] 80 MILLIGRAMS BEDTIME ORAL 022 09:39 Prescription Detail TAKE 80 MILLIGRAMS ORAL BEDTIME buPROPion Hydrochloride SR 150MG Oral Tablet, Extended Release, 12 HR [id number] 150 MILLIGRAMS TWICE A DAY ORAL 09/25/2021 09:39 Prescription Detail TAKE 150 MILLIGRAMS ORAL TWICE A DAY Calcium 600 MG Oral Tablet 129347 600 MG DAILY ORAL 09/25/19 09:39 Prescription Detail TAKE 600 MG ORAL DAILY Temazepam 15MG Oral Capsule 697019 15 MILLIGRAMS BEDTIME ORAL 2021 09:39 Prescription Detail TAKE 15 MILLIGRAMS ORAL BEDTIME Vitamin D 1000IU Oral Tablet 303467 5439 INTERNATION AL UNITS DAILY ORAL 09/25/2021 09:39 Prescription Detail TAKE 1000 INTERNATIONAL UNITS ORAL DAILY Medications Administered During Visit Unknown or Not Available. Encounters Encounter Diagnosis Diagnosis Code Start Date Flat foot [pes planus] (acquired), left foot M21 42 09/17/2021 Social History Smoking Status Code Start Date End Date Former smoker [id number] 08/18/1995 Patient Decision Aids Unknown or Not Available. Discharge Instructions You were admitted to [facility] on 09/17/2021 17:21 with a principal diagnosis of Flat foot [pes planus] (acquired), left foot You were discharged from [facility] on 09/21/2021 17:25 Should [...]
--- OUTSIDE RECORDS SUMMARY | 2023-09-18 15:34 | XMS_ITS | CCD ---
Author Name Unknown Address [address] [place] [address] [phone] Organization Unknown Address [address] [place] [address] [phone] Care Team Providers Care Locksmith Apprentice Name Role Phone DENISE AMEZCUA Attending Physician [phone] DENISE AMEZCUA Rounding (Secondary) Physician [phone] Vital Signs Unknown or Not Available. Allergies [...] n Start Date/Time Valsartan 160MG Oral Tablet [id number] 160 MILLIGRAMS DAILY ORAL 08:20 Prescription Detail TAKE 1 TABLET BY MOUTH DAILY Androderm 4MG/24HR Transdermal Patch, Extended Release [id number] 1 TRANSDERMAL PATCH BEDTIME TRANSDERMAL 09/25/2021 09:39 Prescription Detail APPLY 1 TRANSDERMAL PATCH TRANSDERMAL BE DTIME Aspir 81 81MG Oral Tablet, Enteric Coated [id number] 81 MILLIGRAMS DAILY ORAL 09:39 Prescription Detail TAKE 81 MILLIGRAMS ORAL DAILY Atorvastatin Calcium 80MG Oral Tablet 464802 80 MILLIGRAMS BEDTIME ORAL 022 09:39 Prescription Detail TAKE 80 MILLIGRAMS ORAL BEDTIME buPROPion Hydrochloride SR 150MG Oral Tablet, Extended Release, 12 HR [id number] 150 MILLIGRAMS TWICE A DAY ORAL 09/25/2021 09:39 Prescription Detail TAKE 150 MILLIGRAMS ORAL TWICE A DAY Calcium 600 MG Oral Tablet 699162 600 MG DAILY ORAL 09/25/19 09:39 Prescription Detail TAKE 600 MG ORAL DAILY Temazepam 15MG Oral Capsule 684936 15 MILLIGRAMS BEDTIME ORAL 2021 09:39 Prescription Detail TAKE 15 MILLIGRAMS ORAL BEDTIME Vitamin D 1000IU Oral Tablet 011233 3919 INTERNATION AL UNITS DAILY ORAL 09/25/2021 09:39 Prescription Detail TAKE 1000 INTERNATIONAL UNITS ORAL DAILY Medications Administered During Visit Unknown or Not Available. Encounters Encounter Diagnosis Diagnosis Code Start Date Removal of suture [id number] 10/02/2021 Social History Smoking Status Code Start Date End Date Former smoker [id number] 08/18/1995 Patient Decision Aids Unknown or Not Available. Discharge Instructions You were admitted to [facility] on 10/02/2021 11:15 with a principal diagnosis of Encounter for removal of sutures You were discharged from [facility] on 10/02/2021 00:00 Should you have any [...]
--- OUTSIDE RECORDS SUMMARY | 2023-09-18 15:34 | XMS_ITS | CCD ---
Author Name Unknown Address [address] [place] [address] [phone] Organization Unknown Address [address] [place] [address] [phone] Care Team Providers Care Ground Crew Lines Person Name Role Phone SALOMON SRINIVASAN Attending Physician [phone] SALOMON SRINIVASAN Rounding (Secondary) Physician [phone] Vital Signs Unknown or Not Available. Allergies [...] n Start Date/Time Valsartan 160MG Oral Tablet [id number] 160 MILLIGRAMS DAILY ORAL 08:20 Prescription Detail TAKE 1 TABLET BY MOUTH DAILY Androderm 4MG/24HR Transdermal Patch, Extended Release [id number] 1 TRANSDERMAL PATCH BEDTIME TRANSDERMAL 09/25/2021 09:39 Prescription Detail APPLY 1 TRANSDERMAL PATCH TRANSDERMAL BE DTIME Aspir 81 81MG Oral Tablet, Enteric Coated [id number] 81 MILLIGRAMS DAILY ORAL 09:39 Prescription Detail TAKE 81 MILLIGRAMS ORAL DAILY Atorvastatin Calcium 80MG Oral Tablet 959357 80 MILLIGRAMS BEDTIME ORAL 022 09:39 Prescription Detail TAKE 80 MILLIGRAMS ORAL BEDTIME buPROPion Hydrochloride SR 150MG Oral Tablet, Extended Release, 12 HR [id number] 150 MILLIGRAMS TWICE A DAY ORAL 09/25/2021 09:39 Prescription Detail TAKE 150 MILLIGRAMS ORAL TWICE A DAY Calcium 600 MG Oral Tablet 430407 600 MG DAILY ORAL 09/25/19 09:39 Prescription Detail TAKE 600 MG ORAL DAILY Temazepam 15MG Oral Capsule 905103 15 MILLIGRAMS BEDTIME ORAL 2021 09:39 Prescription Detail TAKE 15 MILLIGRAMS ORAL BEDTIME Vitamin D 1000IU Oral Tablet 806239 4893 INTERNATION AL UNITS DAILY ORAL 09/25/2021 09:39 Prescription Detail TAKE 1000 INTERNATIONAL UNITS ORAL DAILY Medications Administered During Visit Unknown or Not Available. Encounters Encounter Diagnosis Diagnosis Code Start Date Flat foot [pes planus] (acquired), left foot M21 42 07/24/2021 Social History Smoking Status Code Start Date End Date Former smoker [id number] 08/18/1995 Patient Decision Aids Unknown or Not Available. Discharge Instructions You were admitted to [facility] on 07/24/2021 10:13 with a principal diagnosis of Flat foot of lt foot You were discharged from [facility] on 07/24/2021 00:00 Should you have [...]
--- OUTSIDE RECORDS SUMMARY | 2023-09-18 15:35 | XMS_ITS | CCD ---
Author Name Unknown Address [address] [place] [address] [phone] Organization Unknown Address [address] [place] [address] [phone] Care Team Providers Care Ambulatory Care Name Role Phone SALOMON SRINIVASAN Attending Physician [phone] Vital Signs Unknown or Not Available. Allergies [...] n Start Date/Time Valsartan 160MG Oral Tablet [id number] 160 MILLIGRAMS DAILY ORAL 08:20 Prescription Detail TAKE 1 TABLET BY MOUTH DAILY Androderm 4MG/24HR Transdermal Patch, Extended Release [id number] 1 TRANSDERMAL PATCH BEDTIME TRANSDERMAL 09/25/2021 09:39 Prescription Detail APPLY 1 TRANSDERMAL PATCH TRANSDERMAL BE DTIME Aspir 81 81MG Oral Tablet, Enteric Coated [id number] 81 MILLIGRAMS DAILY ORAL 09:39 Prescription Detail TAKE 81 MILLIGRAMS ORAL DAILY Atorvastatin Calcium 80MG Oral Tablet [id number] 80 MILLIGRAMS BEDTIME ORAL 022 09:39 Prescription Detail TAKE 80 MILLIGRAMS ORAL BEDTIME buPROPion Hydrochloride SR 150MG Oral Tablet, Extended Release, 12 HR [id number] 150 MILLIGRAMS TWICE A DAY ORAL 09/25/2021 09:39 Prescription Detail TAKE 150 MILLIGRAMS ORAL TWICE A DAY Calcium 600 MG Oral Tablet 532071 600 MG DAILY ORAL 09/25/19 22 09:39 Prescription Detail TAKE 600 MG ORAL DAILY Temazepam 15MG Oral Capsule [id number] 15 MILLIGRAMS BEDTIME ORAL 2021 09:39 Prescription Detail TAKE 15 MILLIGRAMS ORAL BEDTIME Vitamin D 1000IU Oral Tablet 863746 5759 INTERNATION AL UNITS DAILY ORAL 09/25/2021 09:39 Prescription Detail TAKE 1000 INTERNATIONAL UNITS ORAL DAILY Medications Administered During Visit Unknown or Not Available. Encounters Encounter Diagnosis Diagnosis Code Start Date Abnormal findings on diagnostic imaging of limbs R936 07/17/2021 Social History Smoking Status Code Start Date End Date Former smoker [id number] 08/18/1995 Patient Decision Aids Unknown or Not Available. Discharge Instructions You were admitted to [facility] on 07/17/2021 01:07 with a principal diagnosis of Abnormal findings on diagnostic imaging of limbs You were discharged from [facility] on 07/17/2021 01:07 Should you have [...]
--- OUTSIDE RECORDS SUMMARY | 2023-09-18 15:40 | XMS_ITS | CCD ---
Author Name Unknown Address [address] [place] [address] [phone] Organization Unknown Address [address] [place] [address] [phone] Care Team Providers Care Crimping Press Operator Name Role Phone SALOMON SRINIVASAN MD Attending Physician [phone] Vital Signs Unknown or Not Available. Allergies [...] n Start Date/Time Valsartan 160MG Oral Tablet [id number] 160 MILLIGRAMS DAILY ORAL 08:20 Prescription Detail TAKE 1 TABLET BY MOUTH DAILY Androderm 4MG/24HR Transdermal Patch, Extended Release [id number] 1 TRANSDERMAL PATCH BEDTIME TRANSDERMAL 09/25/2021 09:39 Prescription Detail APPLY 1 TRANSDERMAL PATCH TRANSDERMAL BE DTIME Aspir 81 81MG Oral Tablet, Enteric Coated [id number] 81 MILLIGRAMS DAILY ORAL 09:39 Prescription Detail TAKE 81 MILLIGRAMS ORAL DAILY Atorvastatin Calcium 80MG Oral Tablet 887974 80 MILLIGRAMS BEDTIME ORAL 022 09:39 Prescription Detail TAKE 80 MILLIGRAMS ORAL BEDTIME buPROPion Hydrochloride SR 150MG Oral Tablet, Extended Release, 12 HR [id number] 150 MILLIGRAMS TWICE A DAY ORAL 09/25/2021 09:39 Prescription Detail TAKE 150 MILLIGRAMS ORAL TWICE A DAY Calcium 600 MG Oral Tablet 138859 600 MG DAILY ORAL 09/25/19 22 09:39 Prescription Detail TAKE 600 MG ORAL DAILY Temazepam 15MG Oral Capsule 19811116 15 MILLIGRAMS BEDTIME ORAL 2021 09:39 Prescription Detail TAKE 15 MILLIGRAMS ORAL BEDTIME Vitamin D 1000IU Oral Tablet 291712 2115 INTERNATION AL UNITS DAILY ORAL 09/25/2021 09:39 Prescription Detail TAKE 1000 INTERNATIONAL UNITS ORAL DAILY Medications Administered During Visit Unknown or Not Available. Encounters Encounter Diagnosis Diagnosis Code Start Date Flat foot [pes planus] (acquired), left foot M21 42 04/30/2021 Social History Smoking Status Code Start Date End Date Former smoker [id number] 08/18/1995 Patient Decision Aids Unknown or Not Available. Discharge Instructions You were admitted to [facility] on 04/30/2021 21:57 with a principal diagnosis of Flat foot [pes planus] (acquired), left foot You were discharged from [facility] on 04/30/2021 21:57 Should you have any [...]
== END 2023-09-18 15:32 | disposition home or self-care (01) ==
LOC: DIORS 15:32
PROVIDERS: PCP Family Medicine; Referring Provider Family Medicine; Visit Provider Student in an Organized Health Care Education/Training Program
DX: M25.561 Pain in right knee (principal); R29.898 Other symptoms and signs involving the musculoskeletal system; R60.0 Localized edema; Z96.651 Presence of right artificial knee joint; Z96.7 Presence of other bone and tendon implants; Z87.81 Personal history of (healed) traumatic fracture
CPT/HCPCS: 99213; 73560

== ENCOUNTER 2023-11-30 19:57 | Inpatient (IN) | payer MEDICARE, SELFPAY ==
[2023-11-30] VITALS (84 sets, daily range): BP systolic 134–224; BP diastolic 86–176; PULSE 78–101; RESP 14–36; TEMP 36.5–36.8; O2SAT 65–100
--- NOTE | 2023-11-30 19:45 | DI.RAD_ITS ---
Exam(s) XR PORTABLE CHEST AP EXAM: XR PORTABLE CHEST AP CLINICAL HISTORY: History of falling TECHNIQUE: 2D digital imaging was performed of the chest. One image was obtained. An AP view was ob tained. COMPARISON: CR XR CHEST 2V PA LATERAL from 09/27/2022 FINDINGS: MEDIASTINUM: Normal. HEART: Normal. PULMONARY VASCULATURE: Normal. LUNGS: Clear. PLEURAL SPACE: No pleural effusion or pneumothorax. BONE:Within normal limits for the patient's age. OTHER FINDINGS:Normal. IMPRESSION: No acute pulmonary findings. DATA REPOSITORY: RADIATION DOSE DELIVERED:
--- NOTE | 2023-11-30 19:45 | RT.EKG_ITS ---
APPROVED REPORT Exam: Resting ECG Reason for Exam: History of fall Patient Location: E HR:82 bpm ECG Measurements Heart Rate 82 AXIS OH 202 P -23 QRSd 93 QRS -39 QT 398 T 10 QTc 466 Conclusion Sinus rhythm...normal P axis, V-rate 60- 99 Left ventricular hypertrophy...multiple voltage criteria Narrow complex normal sinus rhythm at a rate of 82 with first-degree AV block. Left axis deviation L VH based on voltage criteria in aVL. Anterior Q waves. Appears similar to prior dated last year wit h the exception sinus rhythm which has replaced atrial fibrillation. No acute injury pattern.
--- NOTE | 2023-11-30 19:45 | DI.CT_ITS ---
Exam(s) CT HEAD - STROKE PROTOCOL EXAM: CT HEAD - STROKE PROTOCOL CLINICAL HISTORY: History of fall left arm weakness. TECHNIQUE: Imaging Protocol: Axial computed tomography images with coronal and sagittal reformatted images were created and reviewed COMPARISON: No exams were available for comparison FINDINGS: Ventricles and Extra axial spaces: Normal in size and morphology for the patient's age. Hemorrhage: None. Cerebral parenchyma: There are areas of decreased attenuation in the white matter consistent with chr onic microvascular ischemic disease. No acute mass effect. Midline shift: None. Brainstem/Cerebellum: Normal. Calvarium: Normal. Visualized Paranasal sinuses/Mastoids: Clear. Soft Tissues: Unremarkable. IMPRESSION: No acute intracranial process. RADIATION DOSE DELIVERED: 847.79mGy.cm Total DLP DATA REPOSITORY: All CT scans at this facility are submitted to the National Radiology Data Registry (NRDR) Dose Index Registry (DIR) with the [employer] (A[employer]). RADIATION OPTIMIZATION: All CT scans at this facility use at least one of these dose optimization te chniques: automated exposure control; mA and/or kV adjustment per patient size (includes targeted exa ms where dose is matched to clinical indication); or iterative reconstruction.
--- NOTE | 2023-11-30 19:47 | ED.GENADUL_ITS ---
Discharge Plan Disposition Patient Disposition: Admit to [facility] Discharge Details Clinical Impression: Left arm weakness Admit Date/Time: 11/30/23 21:33 Admit Provider: Sumeet Maddox Attending Provider: Sumeet Maddox Primary Care Provider: Blanco Myles ED Provider: Andrea Franco [facility] General Date/Time Provider Initiated Documentation: 11/30/23 20:10 . HPI Narrative: MDM This is a normothermic and not tachycardic 82-year-old male with fall on apixaban concerning for intracranial hemorrhage versus CVA versus TIA given left upper extremity weakness. I was not suspicious for large vessel occlusion based on no vision aphasia nor neglect though the patient did have 3-5 strength left upper extremity. As result I did not obtain vessel imaging. Given apixaban use patient is not a tPA candidate. Upon arrival patient went directly on the EMS stretcher to the CT to assess for any acute bleed. Will obtain chest x-ray to assess for any widened mediastinum which could suggest aortic dissection though my suspicion is low in the absence of chest pain. No nausea no vomiting no abdominal pain to doubt intra-abdominal infection. No tonic-clonic activity to suggest seizures I do not feel that the patient requires an EEG. No nuchal rigidity to suggest meningitis so I do not feel that the patient required a lumbar puncture. Will obtain electrolytes and troponin testing along with ECG to assess for acute electrolyte abnormalities and ACS respectively. His left arm weakness is not directly explained by any trauma and I do not feel that his fall caused a transient neuropraxia as he did not sustain any injuries to his left arm. 8:24 PM CBC with no leukocytosis. Mild normocytic anemia. Mild thrombocytopenia. Both patient metabolic panel showing CKD but no JAYLIN. No acute electrolyte abnormalities. Very mild hypocalcemia. Hyperglycemia but no anion gap and normal bicarbonate??not consistent with DKA. Negative initial troponin. CT head read as negative for any acute intracranial findings. Patient has improving left upper extremity weakness. I discussed overnight hospitalization to assess for TIA with MRI. Patient and his feel amenable. 8:45 PM I spoke with Dr. Maddox who agreed graciously to accept the patient for hospitalization. I ordered an MRI. Will allow permissive hypertension. Patient's small left dorsal hand skin tear with cleaned and dressed by nursing. It was superficial did not require sutures. Dr. Cobb requested 81 mg of aspirin and 5 mg of labetalol given systolic blood pressures in the 200 range both of which I ordered. Chronic conditions affecting the care of the patient: Coronary artery disease carotid stenosis and paroxysmal atrial fibrillation History obtained from an outside historian: Paramedics External record review: [facility] [place] EMR [Diagnostic interpretations performed by me: Per my independent interpretation chest x-ray shows: No acute cardiopulmonary process Per my independent interpretation EKG shows: Narrow complex normal sinus rhythm at a rate of 82 with first-degree AV block. Left axis deviation LVH based on voltage criteria in aVL. Anterior Q waves. Appears similar to prior dated last year with the exception sinus rhythm which has replaced atrial fibrillation. No acute injury pattern. ]Medications: Home medications and tetanus Social determinants of health affecting disposition: N/A Management discussed with: Dr. Maddox Treatment/interventions considered: N/A Response to therapies provided: Improved symptoms in the ED HPI This is an 82-year-old male with history of coronary artery disease atrial fibri llation on apixaban arrived to the emergency department via paramedics in the setting of a fall with head strike and left upper extremity weakness. Patient reportedly fell several days ago and landed on his left upper extremity. Today he fell and hit his head. He did not lose consciousness. He subsequently noticed left arm weakness. He was in his usual state of health earlier today denies fevers chills nausea and vomiting. Patient's reports that he went to feed the dog. He lost balance. He fell. He was confused. He had difficulty using his left arm for several minutes after his fall. It slowly improved in the ambulance. Exam General: Chronically ill-appearing in no acute distress speaking in complete sentences. Head: Normocephalic, atraumatic. Eye:[Pupils equal, round reactive to light.] Extraocular eye movements intact. No conjunctival injection. No scleral icterus. Ear, nose, mouth, throat: Grossly normal inspection. Normal voice, handling secretions normally. Neck: Trachea midline. No cervical spinal tenderness. Cardiovascular: Well-perfused distal extremities. Regular rate and rhythm. Respiratory: Nonlabored respiration. Clear lungs bilaterally. Gastrointestinal: Nondistended abdomen. Soft nontender. Musculoskeletal: No edema. Moving all 4 extremities spontaneously. Dorsal aspect of left hand there is a superficial skin tear that is hemostatic. Left hand with a ring on left ring finger will remove. Skin: Normal for age and race, grossly normal temperature and turgor. No acute rash. Neurologic: Alert and appropriate. GCS 15. NIH stroke scale 1 secondary to left arm drift. Cranial nerves II through XII intact grossly. Psychiatric: Mood and manner are appropriate. Grooming and personal hygiene are appropriate. Related Data Home Medications Medication Instructions Recorded Confirmed bupropion HCl 150 mg tablet,12 hr 150 mg PO BID 11/18/17 11/30/23 sustained-release multivitamin 1 tab PO DAILY 11/18/17 11/30/23 nitroglycerin 0.4 mg sublingual 1 tab PO PRN PRN 01/07/18 11/30/23 tablet atorvastatin 80 mg tablet 80 mg PO .Q PM 05/31/19 11/30/23 loratadine 10 mg capsule 10 mg PO DAILY 05/03/21 11/30/23 cholecalciferol (vitamin D3) 25 25 mcg PO DAILY 08/07/21 11/30/23 mcg (1,000 unit) tablet (Vitamin D3) fluticasone propionate 50 1 spray intranasal BID 06/12/22 11/30/23 mcg/actuation nasal spray,suspension metoprolol succinate 25 mg 25 mg PO HS #30 tabs 07/10/22 11/30/23 tablet,extended release 24 hr hydroxyzine HCl 10 mg tablet 10 mg PO BID PRN 09/05/22 11/30/23 docusate sodium 100 mg capsule 100 mg PO BID #30 caps 09/10/22 11/30/23 (Colace) apixaban 2.5 mg tablet (Eliquis) 2.5 mg PO BID 09/23/22 11/30/23 acetaminophen 500 mg tablet 1,000 mg (2 x 500 mg) PO Q8H PRN 09/30/22 11/30/23 pain #90 tabs furosemide 20 mg tablet 20 mg PO DAILY 10/31/22 11/30/23 antiarthritic combination no.2 900 mg PO 11/28/22 09/18/23 mg tablet (glucosamine-chondroitin) tamsulosin 0.4 mg capsule 0.4 mg PO DAILY 12/27/22 11/30/23 doxepin 10 mg capsule 10 mg PO DAILY 06/16/23 11/30/23 vitamins A,C,K-zocx-ctvbbe 2,148 1 tab PO BID 06/16/23 11/30/23 mcg-113 mg-45 mg-17.4 mg tablet (PreserVision AREDS) potassium chloride 20 mEq 20 meq PO DAILY 09/18/23 11/30/23 tablet,extended release valsartan 160 mg tablet 160 mg PO DAILY 09/18/23 11/30/23 Previous Rx's Medication Instructions Recorded metoprolol succinate 25 mg 25 mg PO HS #30 tabs 07/10/22 tablet,extended release 24 hr docusate sodium 100 mg capsule 100 mg PO BID #30 caps 09/10/22 (Colace) acetaminophen 500 mg tablet 1,000 mg (2 x 500 mg) PO Q8H PRN 09/30/22 pain #90 tabs Allergies Allergy/AdvReac Type Severity Reaction Status Date / Time terazosin Allergy Severe Unknown Verified 09/18/23 11:12 oxycodone AdvReac Intermediate Nausea Verified 09/18/23 11:12 pollen AdvReac Intermediate sneezing, Uncoded 09/18/23 11:12 congestion General JAMEE: 4 Medical Decision Making Quality:SDOH Health Related Social Needs: No Data to Display Critical Care Time Critical Care Time Critical Care Time: Yes Total Critical Care Time: 30 Attestation: Left upper extremity weakness emergent blood pressure control PFSH All Active Problems Left arm weakness (Acute) Left rotator cuff tear arthropathy (Acute) Atrial fibrillation (Chronic) Bigeminal rhythm (Acute) Depression (Chronic) DVT prophylaxis (Acute) Advance directive discussed with patient (Acute) De Quervain's tenosynovitis, left (Acute) Steroid injection: 06/26/2020, 02/21/2021 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 (Acute) Laceration of left index finger (Acute) Fracture of distal phalanx of left index finger (Acute) De Quervain's tenosynovitis, right (Acute) Injection: 06/13/2021; 01/24/2021 Pes planus of left foot (Acute) Biceps tendinitis of left upper extremity (Acute) Bursitis of shoulder, left (Acute) Hyponatremia (Chronic) Anemia (Chronic) Contusion of leg, right (Acute) Medical History Rupture of left quadriceps muscle s/p repair of left quad/retinacular repair x2 DOS: 09/25/22; 09/10/22 Chronic cough CHF (congestive heart failure) Hx of sinusitis 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 Hypertension HLD (hyperlipidemia) Hyperpiesia Bilateral carotid artery stenosis Cardiomyopathy Heart palpitations None recently (05/28/22) CAD (coronary artery disease) HTN (hypertension) with goal to be determined CKD (chronic kidney disease) History of non-ST elevation myocardial infarction (NSTEMI) November 2017 Surgical History 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/22) Hx of total knee arthroplasty LEFT S/P tendon repair 09/15/22 Hx of rhinoplasty Status post left foot surgery (09/17/21) [facility] Status post laparoscopic cholecystectomy (~01/2022) History of heart artery stent Hx of cataract surgery S/P ORIF (open reduction internal fixation) fracture Right distal femur fracture History of revision of total replacement of right knee joint Right TKA - [place] (2003) Two-stage revision for infection -[place] (2008) Social History Smoking/Tobacco Use Status: Former Tobacco Use Quit Date: 08/18/91 Smoking risk assessment performed?: Yes Alcohol Intake: former Substance use type: does not use Housing: house Do you feel safe at home: Yes Do you feel safe in your relationship?: Yes
[2023-11-30 20:02] LABS: Abs Immature Grans 0.03 10^3/uL (0.0-0.06); Absolute Basophil Count 0.04 10^3/uL (0.0-0.2); Absolute Eosinophil Count 0.07 10^3/uL (0.0-0.7); Absolute Lymphocyte Count 2.88 10^3/uL (1.2-3.4); Absolute Monocyte Count 0.74 10^3/uL (0.1-0.8); Absolute Neutrophil Count 5.72 10^3/uL (1.2-6.7); Basophils % 0.4; Eosinophils % 0.7; HCT 36.9 % (40.0-50.0); HGB 11.9 g/dL (13.5-17.5); Immature Grans % 0.3; Lymphocytes % 30.4; MCH 29.5 pg (27.0-33.0); MCHC 32.2 % (32.0-36.0); MCV 91 fL (80-95); MPV 9.6 fL (8.0-11.0); Monocytes % 7.8; Neutrophils % 60.4; Platelet Count 109 10^3/uL (130-400); RBC 4.04 10^6/uL (4.36-5.78); RDW 13.6 % (11.8-14.1); RDW-SD 45.9 fL; WBC 9.48 10^3/uL (4.4-10.8)
--- NOTE | 2023-11-30 20:08 | DI.VRAD_ITS ---
PROCEDURE INFORMATION: Exam: CT Head Without Contrast Exam date and time: 11/30/2023 7:53 PM Age: 82 years old Clinical indication: Stroke-like symptoms; Other: History of fall left arm weakness TECHNIQUE: Imaging protocol: Computed tomography of the head without contrast. Other technique: STROKE PROTOCOL was implemented. COMPARISON: No relevant prior studies available. FINDINGS: Brain: Pineal gland calcifications. Scattered dural calcifications. Slightly asymmetric mkban-lhlelxj-mopo-left periventricular white matter hypoattenuation. Cerebral ventricles: Choroid plexus calcifications. Paranasal sinuses: Visualized sinuses are unremarkable. No fluid levels. Mastoid air cells: Visualized mastoid air cells are well aerated. Bones/joints: Unremarkable. No acute fracture. Soft tissues: Unremarkable. Other findings: Qvmf-cw-gdefbsyl intracranial atherosclerotic disease. IMPRESSION: 1. No acute intracranial findings. 2. Slightly asymmetric right periventricular white matter hypoattenuation, nonspecific, however likely reflects chronic microvascular changes. ASSESSMENT: ASPECTS ([place] Stroke Program Early CT Score) is 10. Dictated and Authenticated by: Young Torres MD. Ordering:OSMANY Mendez MD
[2023-11-30 20:12] LABS: Anion Gap 9.2 mmol/L (3-11); BUN 27 mg/dL (7-18); CO2 25.8 mmol/L (21.0-32.0); CREATININE 1.8 mg/dL (0.70-1.30); Calcium 8.3 mg/dL (8.5-10.1); Chloride 105 mmol/L (98-107); Estimated GFR 36.89 (mL/min/1.73m2); Glucose 115 mg/dL (74-106); Sodium 140 mmol/L (136-145)
[2023-11-30 20:21] LABS: Troponin I < 50 ng/L (< or =60)
--- NOTE | 2023-11-30 20:24 | DI.VRAD_ITS ---
PROCEDURE INFORMATION: Exam: XR Chest Exam date and time: 11/30/2023 8:12 PM Age: 82 years old Clinical indication: Other: HX of falling TECHNIQUE: Imaging protocol: Radiologic exam of the chest. Views: 1 view. COMPARISON: CR XR CHEST 2V PA LATERAL 09/27/2022 1:57 PM FINDINGS: Lungs: Unremarkable. No consolidation. Pleural spaces: Unremarkable. No pleural effusion. No pneumothorax. Heart/Mediastinum: Unremarkable. No cardiomegaly. Vasculature: Calcification of the aortic knob. Bones/joints: Diffuse degenerative changes of the visualized osseous structures. IMPRESSION: No acute cardiopulmonary findings. Dictated and Authenticated by: Young Torres MD. Ordering:OSMANY Mendez MD
[2023-11-30] MEDS: Tamsulosin 0.4 MG CAPCR PO (20:43)
[2023-11-30] MEDS: Atorvastatin 40 MG TAB 80 MG PO (20:43)
--- NOTE | 2023-11-30 21:19 | HPE_ITS ---
Date of service: 11/30/23 Time of Service: 21:19 Assessment and Plan Assessment and plan (1) Left arm weakness: Status: Acute Assessment and plan: Seems to have had either small stroke -- pure motor, presumably lacunar -- versus TIA. Unclear how to tie into the fall (unless he had some transient leg weakness at initiation of event). 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 For now, would suggest we treat this as such. Will obtain MRI/MRA, give baby dose ASA (less than full dose given DOAC) and control BP to permissive level approx 160/90. Will also check lipid profile and would consider statin. Reviewed ADs, requests Full Code History of Present Illness History of Present Illness Chief Complaint: left arm weakness Narrative: 82 male with h/o PAF on DOAC, HTN --fell today while preparing food for dog. was nearby bu did not see the fall, just as he struck the ground, hitting his head. No LOC. Somewhat confused for few minutes then cleared. But she immediately noted left arm was flaccid. EMT summoned and patient brought to ER. In ER weakness was resolving and only deficit reported was slight pronator drift. CT head negative. I was asked to evaluate for admission. Patient does recall the circumstances of his fall, only remembers being on the ground. At present he states he feels fine. No BARRIOS, visual changes, weakness or sensory loss. Hopes he can go home soon. 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 (Acute) Laceration of left index finger (Acute) Fracture of distal phalanx of left index finger (Acute) De Quervain's tenosynovitis, right (Acute) Injection: 06/13/2021; 01/24/2021 Pes planus of left foot (Acute) Biceps tendinitis of left upper extremity (Acute) Bursitis of shoulder, left (Acute) Hyponatremia (Chronic) Anemia (Chronic) Contusion of leg, right (Acute) Medical History Rupture of left quadriceps muscle s/p repair of left quad/retinacular repair x2 DOS: 09/25/22; 09/10/22 Chronic cough CHF (congestive heart failure) Hx of sinusitis 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 Hypertension HLD (hyperlipidemia) Hyperpiesia Bilateral carotid artery stenosis Cardiomyopathy Heart palpitations None recently (05/28/22) CAD (coronary artery disease) HTN (hypertension) with goal to be determined CKD (chronic kidney disease) History of non-ST elevation myocardial infarction (NSTEMI) November 2017 Surgical History 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/22) Hx of total knee arthroplasty LEFT S/P tendon repair 09/15/22 Hx of rhinoplasty Status post left foot surgery (09/17/21) [facility] Status post laparoscopic cholecystectomy (~01/2022) History of heart artery stent Hx of cataract surgery S/P ORIF (open reduction internal fixation) fracture Right distal femur fracture History of revision of total replacement of right knee joint Right TKA - [place] (2003) Two-stage revision for infection -[place] (2008) Social History Smoking/Tobacco Use Status: Former Tobacco Use Quit Date: 08/18/91 Smoking risk assessment performed?: Yes Alcohol Intake: former Substance use type: does not use Do you feel safe at home: Yes Do you feel safe in your relationship?: Yes Meds Allergies and Home Medications Allergies Allergy/AdvReac Type Severity Reaction Status Date / Time terazosin Allergy Severe Unknown Verified 09/18/23 11:12 oxycodone AdvReac Intermediate Nausea Verified 09/18/23 11:12 pollen AdvReac Intermediate sneezing, Uncoded 09/18/23 11:12 congestion Home Medications Medication Instructions Recorded Confirmed Type bupropion HCl 150 mg tablet,12 hr 150 mg PO BID 11/18/17 11/30/23 History sustained-release multivitamin 1 tab PO DAILY 11/18/17 11/30/23 History nitroglycerin 0.4 mg sublingual 1 tab PO PRN PRN 01/07/18 11/30/23 History tablet atorvastatin 80 mg tablet 80 mg PO .Q PM 05/31/19 11/30/23 History loratadine 10 mg capsule 10 mg PO DAILY 05/03/21 11/30/23 History cholecalciferol (vitamin D3) 25 25 mcg PO DAILY 08/07/21 11/30/23 History mcg (1,000 unit) tablet (Vitamin D3) fluticasone propionate 50 1 spray intranasal BID 06/12/22 11/30/23 History mcg/actuation nasal spray,suspension metoprolol succinate 25 mg 25 mg PO HS #30 tabs 07/10/22 11/30/23 Rx tablet,extended release 24 hr hydroxyzine HCl 10 mg tablet 10 mg PO BID PRN 09/05/22 11/30/23 History docusate sodium 100 mg capsule 100 mg PO BID #30 caps 09/10/22 11/30/23 Rx (Colace) apixaban 2.5 mg tablet (Eliquis) 2.5 mg PO BID 09/23/22 11/30/23 History acetaminophen 500 mg tablet 1,000 mg (2 x 500 mg) PO Q8H PRN 09/30/22 11/30/23 Rx pain #90 tabs furosemide 20 mg tablet 20 mg PO DAILY 10/31/22 11/30/23 History antiarthritic combination no.2 900 mg PO 11/28/22 09/18/23 History mg tablet (glucosamine-chondroitin) tamsulosin 0.4 mg capsule 0.4 mg PO DAILY 12/27/22 11/30/23 History doxepin 10 mg capsule 10 mg PO DAILY 06/16/23 11/30/23 History vitamins A,C,N-mbns-slogyd 2,148 1 tab PO BID 06/16/23 11/30/23 History mcg-113 mg-45 mg-17.4 mg tablet (PreserVision AREDS) potassium chloride 20 mEq 20 meq PO DAILY 09/18/23 11/30/23 History tablet,extended release valsartan 160 mg tablet 160 mg PO DAILY 09/18/23 11/30/23 History Exam Narrative Exam Narrative: 192/102, 80, 36.8, 17, 99% RA. HEENT atraumatic; neck supple w/o bruit; lungs clear; heart RRR; abdomen soft and NT; extremities old bruising LUE, no tenderness and FROM painfree; neuro Ox3, lucid, PERRL, EOMI, prather full, no facial asymmetry, tongue midline; motor 5/5 throughout save for possibly minimal pronator drift LUE; sensory intact light touch; toes downgoing Results Labs 11/30/23 19:49 11/30/23 19:49 Labs: Laboratory Results - last 24 hr 11/30/23 19:49 WBC 9.48 RBC 4.04 L Hgb 11.9 L Hct 36.9 L MCV 91 MCH 29.5 MCHC 32.2 RDW 13.6 Plt Count 109 L MPV 9.6 Immature Gran % 0.3 Neutrophils % 60.4 Lymphocytes % 30.4 Monocytes % 7.8 Eosinophils % 0.7 Basophils % 0.4 Nucleated RBC % 0.0 Absolute Neutrophils 5.72 Absolute Lymphocytes 2.88 Absolute Monocytes 0.74 Absolute Eosinophils 0.07 Absolute Basophils 0.04 Sodium 140 Potassium 5.0 Chloride 105 Carbon Dioxide 25.8 Anion Gap 9.2 BUN 27 H Creatinine 1.8 H Est GFR (CKD-EPI 2020) 36.89 Glucose 115 H Calcium 8.3 L Troponin I < 50 Last Vital Signs Temp 36.8 C 11/30/23 20:19 Pulse 80 11/30/23 21:10 Resp 17 11/30/23 21:12 BP 205/101 H 11/30/23 21:10 Pulse Ox 99 11/30/23 21:12 Time Spent Time spent with Patient: 55-74 minutes Time was spent: preparing to see the patient(eg.review tests), obtaining and/or reviewing separately otained hiistory, ordering medications,tests, procedures, referring, communicating with other health property caretaker and indepentently interpreting results
[2023-11-30] MEDS: Aspirin 81 MG CHEW PO (21:22)
[2023-11-30] MEDS: Doxepin 10 MG CAP PO (21:46)
[2023-11-30] MEDS: buPROPion 75 MG TAB 150 MG PO (21:47)
[2023-11-30] MEDS: Ondansetron 4 MG/2 ML VIAL IVP (21:48)
[2023-11-30] MEDS: Labetalol 100 MG/20 ML VIAL IVP (22:02)
[2023-11-30 23:46] LABS: Troponin I < 50 ng/L (< or =60)
--- NOTE | 2023-12-01 | DI.MRI_ITS ---
Exam(s) MR ANGIO BRAIN WO CLINICAL HISTORY: TIA. TECHNIQUE: Multiplanar multisequence MRA of the brain was performed. COMPARISON: CT CT HEAD - STROKE PROTOCOL from 11/30/2023 MR MR BRAIN WO from 12/01/2023 FINDINGS: Carotid Arteries: No aneurysm, occlusion or significant stenosis. Anterior Cerebral Arteries: Right: No evidence of occlusion or significant stenosis. There is a 2 mm protuberance arising from the proximal A2 segment of the right anterior cerebral artery suspicious for an aneurysm. Left: No aneurysm, occlusion or significant stenosis. Middle Cerebral Arteries: Right: No aneurysm, occlusion or significant stenosis. Left: No aneurysm, occlusion or significant stenosis. Posterior Cerebral Arteries: The posterior cerebral arteries arise in part from the posterior communi cating arteries bilaterally. This is a normal variant. Right: No aneurysm, occlusion or significant stenosis. Left: No aneurysm, occlusion or significant stenosis. Vertebral Arteries: Right: The right vertebral artery is only seen to the level of the PICA. Left: No aneurysm, occlusion or significant stenosis. Basilar Artery: No aneurysm, occlusion or significant stenosis. IMPRESSION: 1. No evidence of occlusion or significant stenosis on the MRA of the yazvng-wx-Muqyxc. 2. 2 mm protuberance arising from the proximal A2 segment of the right anterior cerebral artery suspi cious for an aneurysm. DATA REPOSITORY:
--- NOTE | 2023-12-01 | DI.US_ITS ---
Exam(s) US CAROTID EXAM: US CAROTID CLINICAL HISTORY: embolic CVA on MRI. TECHNIQUE: Ultrasound carotids performed using grayscale, color-flow, and spectral Doppler imaging. COMPARISON: No exams were available for comparison FINDINGS: RIGHT CAROTID ARTERY: Plaque: There is moderate calcific plaque seen in the common carotid artery, carotid bulb and proxima l and mid internal carotid arteries. Velocity elevation: None. LEFT CAROTID ARTERY: Plaque: Moderate calcific plaque is seen in the common carotid artery, carotid bulb and proximal and mid ICA. Velocity elevation: None. VERTEBRAL ARTERIES: Antegrade flow. Measurements: R Bulb: 42.2cm/s PS / 13.1cm/s ED R CCA: 45.2cm/s PS / 16.7cm/s ED R ECA: 68.5cm/s PS / 10.2cm/s ED R ICA Prox: 57.8cm/s PS / 16.3cm/s ED R ICA Mid: 49.6cm/s PS / 18.2cm/s ED R ICA Distal: 47.5cm/s PS /19cm/s ED R Vert: 67.4cm/s PS / 7.1cm/s ED R SVR: 1.3 R DVR: 1 L Bulb: 39.2cm/s PS / 8.6cm/s ED L CCA: 53.4cm/s PS / 16.3cm/s ED L ECA: 57cm/s PS / 12cm/s ED L ICA Prox: 51.3cm/s PS / 18.5cm/s ED L ICA Mid: 45.3cm/s PS / 16.5cm/s ED L ICA Distal: 46.7cm/s PS / 15.5cm/s ED L Vert: 38cm/s PS / 10.3cm/s ED L SVR: 1 L DVR: 1.1 IMPRESSION: 1. No evidence for hemodynamically significant carotid stenosis. 2. Moderate calcific plaque bilaterally. Criteria for Carotid Stenosis: Normal: ICA PSV <125 cm/s no plaque or intimal thickening is visible. <50% stenosis: ICA PSV <125 cm/s and plaque or intimal thickening is visible. 50-69% stenosis: ICA PSV is 125-250 cm/s and plaque is visible. >70% stenosis to near occlusion: ICA PSV >250 cm/s with visible plaque and luminal narrowing. DATA REPOSITORY:
--- NOTE | 2023-12-01 | DI.US_ITS ---
APPROVED REPORT EXAM: Comprehensive 2D, Doppler, and color-flow Echocardiogram Patient Location: In-Patient Room/Bed: 228 Art Teacher: Zuleima Thomas RDCS (AE) Indications: CVA Other Information Study Quality: Fair. Technically limited study due to body habitus , inability to position patient ex am done supine on stretcher.. Conclusion Normal left ventricular wall thickness and chamber size. EF is 50-55%. There are no segmental wall mo tion abnormalities Right atrium and vantricle not well visualised but do not appear enlarged Normal left atrial size Trileaflet sclerotic aortic valve with mild regurgitation Mild mitral regurgitation Ascending aorta measures 3.8 cm Wall motion Left Ventricle The left ventricle is normal size. Left ventricular systolic function is borderline There is normal l eft ventricular wall thickness. There is global mild hypokinesis of the left ventricle. There is no v entricular septal defect visualized. LVEF is 50-55%. Right Ventricle Right ventricle is not well visualized. Right ventricular systolic function could not be assessed. Atria The left atrium size is normal. Right atrium is not well visualized. The interatrial septum is intact with no evidence for an atrial septal defect. Aortic Valve The Aortic valve is sclerotic. Aortic valve is trileaflet. There is no aortic valvular stenosis. Mild aortic regurgitation. Mitral Valve The mitral valve is normal in structure. No evidence of mitral valve stenosis. Mild mitral regurgitat ion. Tricuspid Valve The tricuspid valve is normal in structure. There is no tricuspid valve stenosis. Trace tricuspid reg urgitation. Pulmonic Valve The pulmonary valve is normal in structure. There is no pulmonic valvular stenosis. Trace pulmonic re gurgitation. Great Vessels The aortic root is normal in size. The ascending aorta is mildly dilated. Aortic arch is normal in ca liber. The IVC was not visualized. Technically limited subcostal imaging. Pericardium Technically limited subcostal imaging 2D Dimensions IVSD d PLAX 1.18 cm M: 0.6-1.2 Ao Root d 3.37 cm M: 3.1 - 3.7 LVPW d PLAX 1.11 cm M: 0.6 - 1.2 Ao Asc Diam d 3.81 cm M: 2.6 - 3.4 LVID d PLAX 4.00 cm M: 4.2 - 5.8 LVDs 2.98 cm M: 2.5 - 4.0 LV EF Teichholz 49.6 % FS 24.71 % LV EDV (Teich) 68.5 mL LV ESV (Teich) 34.5 mL M-Mode TAPSE 1.62 cm (M/F) >1.7 Auto EF LV EDV A4C 99.3 mL LV EDV A2C 94.6 mL LV EDV BP 96.2 mL LV ESV A4C 49.5 mL LV ESV A2C 46.5 mL LV ESV BP 46.5 mL LVEF(%) A4C 50.2 % LVEF(%) A2C 50.8 % LVEF(%) BP 51.6 % LV SV A4C 49.8 ml LV SV A2C 48.0 ml LV SV BP 49.6 ml LV CO A4C 4.1 L/min LV CO A2C 4.0 L/min LV CO BP 4.1 L/min HR A4C 82.95 BPM HR A2C 84.12 BPM LV EDV Index (BP) LA Volume LA Length A4C 4.6 cm LA Length A2C 4.8 cm LA Area A4C s 16.17 cm2 LA Area A2C s 19.24 cm2 LA Vol A4C A-L 48.48 mL LA Vol A2C A-L 66.04 mL LA Vol Biplane A-L 57.7 mL LA Vol/BSA A4C A-L LA Vol/BSA A2C A-L LA Vol/BSA BP A-L 27.2 mL/m2 LA Vol A4C MOD 45.8 mL LA Vol A2C MOD 61.0 mL LA Vol BP MOD 53.6 mL LV Diastology MV E' lateral 0.107 (>0.1 m/s) MV E Vmax 0.83 (0.4-1.3 m/s) MV E/E' LAT 7.71 (<14) MV A Vmax 0.85 (0.4-1.3 m/s) E/A Ratio 1.0 Aortic Valve AoV Vmax 1.21 m/s LVOT Vmax 1.01 m/s AoV Peak Grad 26.4 mmHg LVOT Peak Grad 4.1 mmHg AoV Area (Vmax) 2.50 cm2 LVOT VTI 0.177 m AoV VTI 0.242 m LVOT Mean Grad 2.1 mmHg AoV Mean Rusty. 0.88 m/s LVOT SV 53.54 mL AoV Mean Grad 3.5 mmHg LVOT Diam s 1.95 cm AoV Area (VTI) 2.21 cm2 AV Regurg Peak Gr. 47.00 mmHg Velocity Ratio 0.83 AR Decel Christian 1.6m/sec2 AR DT 2101 msec AR PHT 609 msec AR Vmax 3.43 m/s Mitral Valve MV DT 199 (160-240 msec) MV Vmax TIPS 0.96 m/s MV Mean Grad 1.7 (<2mmHg) MV VTI 0.289 m Pulmonary Valve PV Vmax 0.89 (0.5-1.5 m/s) RVOT Vmax 0.87 m/s PV Peak Grad 3.1 mmHg RVOT Peak Gr. 3.0 mmHg PV Mean Rusty 0.60 m/s RVOT VTI 0.169 m PV Mean Grad 1.7 mmHg RVOT Mean Gr. 1.5 mmHg Tricuspid Valve TV S' 0.14 m/s TR Vmax 2.33 m/s TR Peak Grad 21.8 mmHg
[2023-12-01 02:37] VITALS: BP 147/92; PULSE 85; RESP 18; TEMP 37; O2SAT 95
[2023-12-01 07:58] VITALS: BP 140/94; PULSE 99; RESP 15; TEMP 36.7; O2SAT 95
--- NOTE | 2023-12-01 09:43 | W.SPSTE ---
Date of service: 12/01/23 Time of Service: 08:00 Subjective Clinical (Bedside) Swallow Evaluation Speech Language Pathology Referred by: Dr Ma Referral Type: Clinical Swallow Evaluation Reason for Referral/HPI: Erwin Brothers III is an 82 yo male who was adm with significant L upper extremity weakness which occurred immediately after a fall. CT of head negative, MRI of the brain pending to assess for ? CVA. ACCOUNTING MANAGER CONTROLLER IMPRESSIONS & RECOMMENDATIONS: Erwin presents with WFL oral pharyngeal swallow function- with no overt s/s dysphagia appreciated at evaluation during breakfast meal. Erwin was also screened in areas of cognition, expressive/receptive language, and motor speech - all of which were unremarkable. No further ACCOUNTING MANAGER CONTROLLER needs identified at this time. Patient educated re: scope of ACCOUNTING MANAGER CONTROLLER services should he notice any issues with higher level cognitive factors upon discharge, and is aware to ask PCP for referral. FURTHER ACCOUNTING MANAGER CONTROLLER SERVICES: No further ACCOUNTING MANAGER CONTROLLER services indicated DIET RECOMMENDATIONS: SOLIDS: 7-Regular Solids LIQUIDS: 0-Thin Liquids MEDICATIONS: Whole with 0-Thin Liquids RISK MANAGEMENT: (standard swallowing precautions reviewed with patient - pt with good insight) Upright for all PO intake Small/slow bites and sips Level of Assistance/Supervision: Distant/intermittent - would benefit from assistance with tray set up in light of L hand weakness SUBJECTIVE: Patient received alert/awake, sitting upright in a chair with breakfast tray- agreeable to evaluation Pain Reported? None Baseline Swallow Function: Patient denies swallowing difficulty prior to admission and eats a regular diet at baseline. PO Trials Assessed: IDDSI 0 Thin Liquids (Tea, water) IDDSI 6 Soft & Bite Size Solid (scrambled eggs) IDDSI 7 Regular Solid ([place] w/ jam) Oral Mechanism Examination: Dentition is WFL. Oral mucosa is moist. Cranial Nerve Assessment: CN V ? Trigeminal Facial Sensation WNL Jaw Strength/ROM WNL ?WNL CN VII- Facial WNL labial ROM, strength, coordination. WNL lingual sensation WNL CN IX ? Glossopharyngeal WNL palatal elevation with phonation. No evidence of nasal emissions WNL CN X ? Vagus WNL Vocal quality and volume. Strong/sharp volitional cough WNL CX XII ? Hypoglossal WNL lingual ROM, strength, coordination WNL Oral Phase Findings: WFL Pharyngeal Phase Findings: WFL ? [place] Swallow Protocol Results: PASS ??? ASSESSMENT: Further ACCOUNTING MANAGER CONTROLLER Services not indicated Recommendation at Discharge: No further ACCOUNTING MANAGER CONTROLLER needs identified at this time Education Provided to: Patient Topics Addressed: Role of ACCOUNTING MANAGER CONTROLLER, standard swallowing precautions PLAN: Evaluation only Goals: ACCOUNTING MANAGER CONTROLLER CPT Code: 38928 Clinical Swallowing Evaluation TOTAL TIME: 25 Minutes ([id number])
--- NOTE | 2023-12-01 09:54 | INITIAL_ITS ---
Care Management Initial Assmt Initial Assessment REASON FOR HOSPITALIZATION:: Left Arm Weakness PREVIOUS FUNCTIONAL STATUS/SOCIAL/FAMILY SUPPORTS:: Tra is retired and lives in [place] with his Marina, no children. He drives and is fully independent with his ADL/IADL's at baseline. 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 CURRENT FUNCTIONAL STATUS:: Tra is sitting in the chair, visiting with his Jesse when CM met with him. He is awake and easily engages in conversation. He is eager to discharge home. Denies any concerns at this time other than being hungry. ADVANCE DIRECTIVES:: On file, [facility] is Marina Has patient been provided with info about the portal/API?: Yes Did the patient sign up for the portal?: No CODE STATUS:: Full Code INSURANCE COVERAGE / FINANCIAL ISSUES:: BC/SP [place] [employer] CURRENT HOME/COMMUNITY SERVICES/EQUIPMENT:: [facility] Outpatient with [facility] PRIMARY CARE PHYSICIAN:: Blanco Myles POTENTIAL DISCHARGE NEEDS:: Discharge plan of care, follow up appointments PATIENT/FAMILY EDUCATION NEEDS:: Review discharge instructions, limitations, medications and plan to follow up with community providers. Discuss ask me three and goals of self care. ANTICIPATED BARRIERS TO DISCHARGE:: None identified. TRANSPORTATION:: Via private vehicle with . PLAN:: Anticipate, Tra will discharge home when medically cleared by Hospitalist. Awaiting PT recommendations. He will be driven via private vehicle with . CM will follow. PFSH All Active Problems Left arm weakness (Acute) Left rotator cuff tear arthropathy (Acute) Atrial fibrillation (Chronic) Bigeminal rhythm (Acute) Depression (Chronic) DVT prophylaxis (Acute) Advance directive discussed with patient (Acute) De Quervain's tenosynovitis, left (Acute) Steroid injection: 06/26/2020, 02/21/2021 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 (Acute) Laceration of left index finger (Acute) Fracture of distal phalanx of left index finger (Acute) De Quervain's tenosynovitis, right (Acute) Injection: 06/13/2021; 01/24/2021 Pes planus of left foot (Acute) Biceps tendinitis of left upper extremity (Acute) Bursitis of shoulder, left (Acute) Hyponatremia (Chronic) Anemia (Chronic) Contusion of leg, right (Acute) Medical History Rupture of left quadriceps muscle s/p repair of left quad/retinacular repair x2 DOS: 09/25/22; 09/10/22 Chronic cough CHF (congestive heart failure) Hx of sinusitis 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 Hypertension HLD (hyperlipidemia) Hyperpiesia Bilateral carotid artery stenosis Cardiomyopathy Heart palpitations None recently (05/28/22) CAD (coronary artery disease) HTN (hypertension) with goal to be determined CKD (chronic kidney disease) History of non-ST elevation myocardial infarction (NSTEMI) November 2017 Surgical History 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/22) Hx of total knee arthroplasty LEFT S/P tendon repair 09/15/22 Hx of rhinoplasty Status post left foot surgery (09/17/21) [facility] Status post laparoscopic cholecystectomy (~01/2022) History of heart artery stent Hx of cataract surgery S/P ORIF (open reduction internal fixation) fracture Right distal femur fracture History of revision of total replacement of right knee joint Right TKA - [place] (2003) Two-stage revision for infection -[place] (2008) Social History Smoking/Tobacco Use Status: Former Tobacco Use Quit Date: 08/18/91 Smoking risk assessment performed?: Yes Alcohol Intake: former Substance use type: does not use Housing: house Do you feel safe at home: Yes Do you feel safe in your relationship?: Yes SDOH(Care Management) Screening Will the Patient Participate in the Screening?: Unable to obtain Do you worry about having a steady place to live?: no In the past 12 months, have you had to go without electric, gas, oil or water in your home?: no Have you or anyone in your house had to go without enough food to eat?: no Has lack of transportation kept you from medical appointments or from doing things needed for daily living?: no Has anyone in your support network made you feel unsafe for any reason?: no
[2023-12-01] MEDS: Multivitamin TAB 1 TAB PO (10:27)
[2023-12-01] MEDS: buPROPion-CR 150 MG TABCR PO ×2 (10:28→21:01)
[2023-12-01] MEDS: Furosemide 20 MG TAB PO (10:28)
[2023-12-01] MEDS: Cholecalciferol (Vitamin D3) 1,000 UNIT TAB 1000 UNITS PO (10:28)
[2023-12-01] MEDS: Potassium Chloride 20 MEQ TABCR PO (10:28)
[2023-12-01] MEDS: Valsartan 80 MG TAB 160 MG PO (10:28)
[2023-12-01] MEDS: Tamsulosin 0.4 MG CAPCR PO (10:29)
[2023-12-01] MEDS: Apixaban 2.5 MG TAB PO (10:29)
[2023-12-01] MEDS: Aspirin 81 MG CHEW PO (11:30)
[2023-12-01 11:40] VITALS: BP 130/92; PULSE 90; RESP 18; TEMP 36.4; O2SAT 98
[2023-12-01 15:38] VITALS: BP 123/74; PULSE 89; RESP 18; TEMP 36.6; O2SAT 94
--- NOTE | 2023-12-01 15:58 | NCONE_ITS ---
Date of service: 12/01/23 Time of Service: 15:58 Assessment and Plan Assessment and plan (1) Cerebral aneurysm: Status: Acute (2) CVA (cerebral vascular accident): Status: Chronic (3) Atrial fibrillation: Status: Chronic Assessment and plan: #1. Stroke. Mr. Brothers is an 82 year-old with known p.afib on apixaban 2.5mg BID (lower dose due to age and renal status) who is admitted with ischemic stroke manifested by L arm>leg weakness, with ?subtle neglect (non-homonymous visual field loss on the left in both eyes). Etiology of his stroke remains unknown but appears embolic despite reported compliance with apixaban. 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 Work-up: -?FRED - will talk to his primary computer terminal operator Dr. Link regarding ASA use long- term as FRED may not change outcome (I left a VM at his office - office now closed/after hours) -A1c -Lipid panel -given strokes in 3 different vascular territories; concerning for hypercoaguable state and underlying malignancy; recommend cancer screening with CT C/A/P inpatient and then consideration of further screening (colonoscopy, etc) as an outpatient Medications: -aspirin 81mg daily for secondary stroke prevention; would consider continuing this given history of CAD and notable plaque -atorvastatin 80mg daily for secondary stroke prevention -hold anticoagulation for ~3 days (per Guidelines for minor stroke NIHSS<8; AHA/ASA less specific but hold for at least 48 hours) and would switch to dabigatran 150mg BID in case of failure of apixaban Other: -Allow permissive hypertension x48 hours after stroke, then ok to start slowly lowering -Physical therapy for leg weakness, gait training - they have recommended inpatient rehab which we discussed; he agrees -Occupation therapy for upper extremity weakness, activities of daily living - pending -Speech therapy for speech and swallow - they have signed off -Long-term preventative goals: Goal LDL <70. Goal SBP 120-140. Goal A1c <7. -We discussed increased risk of depression/anxiety following stroke. #2. Cerebral PEDRO aneurysm. Small. I did not have time to discuss this with him today. Will plan to discuss further with him tomorrow and/or outpatient on monitoring. He should follow-up in the neurology clinic in 4-6 weeks post discharge. I will see him tomorrow if he is still inpatient. History of Present Illness History of Present Illness Chief Complaint: stroke Narrative: Handedness: right. HPI: Mr. Brothers is an 82 year-old with hypertension, hyperlipidemia, prior NSTEMI, CHF, p. afib s/p cardioversion in May 2023, chronic renal disease (baseline Cr 1.6-2.0). His Marina is at bedside with him. On 11/30/23, he suddenly fell. He isn't sure why he fell. came to him and noted his left arm was completely plegic. He was brought to [facility] and admitted for stroke. He has undergone the work-up as below. His strength has improved in the arm and leg, but is still weak arm>leg. He has had no numbness, no facial involvement, no speech or swallowing involvement. He is on apixaban 2.5mg BID at home (based on age and Cr) and he reports good compliance with this. He was previously on aspirin 81mg daily but stopped that in the fall at the time of his cardioversion. He has felt himself to be in afib intermittently since his cardioversion. His computer terminal operator is Dr. Link at [facility]. At baseline, he walks with a cane. He had a complicated L TKR in May 2022 complicated by a torn quad and repair x2 in early 2022. Work-up: -MRI brain w/o (12/01/23): Scattered acute and subacute small and puntate ischemia throughout the R cerebelllum and R cerebral hemisphere and in the L basal ganglia. Extensive chronic vascular changes. .Partially empty sella. No evidence of prior/current hemorrhage. I reviewed these images personally and this is my personal interpretation; please see the official radiology report. -MRA head w/o (12/01/23): It looks like there is a smallish R PEDRO aneurysm just off the juncture. Measured 2mm by rads, but I am measuring a little larger. I reviewed these images personally and this is my personal interpretation; please see the official radiology report. -CUS (12/01/23): plaque bilaterally without significant stenosis. -TTE (11/30/22): EF 50-55%, no wall motion abnormalities. LA normal. PFSH All Active Problems (Updated 12/01/23 @ 21:49 by Becca French MD) Cerebral aneurysm (Acute) HTN (hypertension) (Chronic) CVA (cerebral vascular accident) (Chronic) Left arm weakness (Acute) Left rotator cuff tear arthropathy (Acute) Atrial fibrillation (Chronic) Bigeminal rhythm (Acute) Depression (Chronic) DVT prophylaxis (Acute) Advance directive discussed with patient (Acute) De Quervain's tenosynovitis, left (Acute) Steroid injection: 06/26/2020, 02/21/2021 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 (Acute) Laceration of left index finger (Acute) Fracture of distal phalanx of left index finger (Acute) De Quervain's tenosynovitis, right (Acute) Injection: 06/13/2021; 01/24/2021 Pes planus of left foot (Acute) Biceps tendinitis of left upper extremity (Acute) Bursitis of shoulder, left (Acute) Hyponatremia (Chronic) Anemia (Chronic) Contusion of leg, right (Acute) Medical History Rupture of left quadriceps muscle s/p repair of left quad/retinacular repair x2 DOS: 09/25/22; 09/10/22 Chronic cough CHF (congestive heart failure) Hx of sinusitis 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 Hypertension HLD (hyperlipidemia) Hyperpiesia Bilateral carotid artery stenosis Cardiomyopathy Heart palpitations None recently (05/28/22) CAD (coronary artery disease) HTN (hypertension) with goal to be determined CKD (chronic kidney disease) History of non-ST elevation myocardial infarction (NSTEMI) November 2017 Surgical History 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/22) Hx of total knee arthroplasty LEFT S/P tendon repair 09/15/22 Hx of rhinoplasty Status post left foot surgery (09/17/21) [facility] Status post laparoscopic cholecystectomy (~01/2022) History of heart artery stent Hx of cataract surgery S/P ORIF (open reduction internal fixation) fracture Right distal femur fracture History of revision of total replacement of right knee joint Right TKA - [place] (2003) Two-stage revision for infection -[place] (2008) Social History Smoking/Tobacco Use Status: Former Tobacco Use Quit Date: 08/18/91 Smoking risk assessment performed?: Yes Alcohol Intake: former Substance use type: does not use Housing: house Do you feel safe at home: Yes Do you feel safe in your relationship?: Yes Visit Medication and Allergies Active Medications Generic Name Dose Route Start Last Admin Trade Name Freq PRN Reason Stop Dose Admin Acetaminophen 1,000 mg 11/30/23 22:00 Acetaminophen 500 Mg Tab PO Q8H PRN PRN Apixaban 5 mg 12/04/23 20:00 Apixaban 5 Mg Tab PO BID MARY Aspirin 81 mg 12/01/23 12:00 12/01/23 11:30 Aspirin 81 Mg Chew PO 81 mg DAILY MARY Administration Atorvastatin Calcium 80 mg 12/01/23 20:00 Atorvastatin 40 Mg Tab PO QPM MARY Bupropion HCl 150 mg 12/01/23 08:30 12/01/23 10:28 Bupropion-Cr 150 Mg Tabcr PO 150 mg BID MARY Administration Cholecalciferol 1,000 units 12/01/23 08:30 12/01/23 10:28 Cholecalciferol (Vitamin D3) 1,000 Unit Tab PO 1,000 units DAILY MARY Administration Doxepin HCl 10 mg 12/01/23 20:00 Doxepin 10 Mg Cap PO HS MAYR Fluticasone Propionate 0 gm 12/01/23 08:30 12/01/23 10:29 Fluticasone Nasal [place] 16 Gm Btl NS Not Given BID MARY Furosemide 20 mg 12/01/23 08:30 12/01/23 10:28 Furosemide 20 Mg Tab PO 20 mg DAILY MARY Administration Labetalol HCl 5 mg 11/30/23 22:00 11/30/23 22:02 Labetalol 100 Mg/20 Ml Vial IVP 5 mg NOW MARY Administration Metoprolol Succinate 25 mg 12/01/23 20:00 Metoprolol Cr 25 Mg Tabcr PO HS MARY Multivitamins 1 tab 12/01/23 08:30 12/01/23 10:27 Multivitamin Tab PO 1 tab DAILY MARY Administration Potassium Chloride 20 meq 12/01/23 08:30 12/01/23 10:28 Potassium Chloride 20 Meq Tabcr PO 20 meq DAILY MARY Administration Tamsulosin HCl 0.4 mg 12/01/23 08:30 12/01/23 10:29 Tamsulosin 0.4 Mg Capcr PO 0.4 mg DAILY MARY Administration Valsartan 160 mg 12/01/23 08:30 12/01/23 10:28 Valsartan 80 Mg Tab PO 160 mg DAILY MARY Administration Vit C/Vit E/Zinc/Copper/Lutein 1 tab 12/01/23 08:30 12/01/23 10:28 Preservision Tablet PO 1 tab BID MARY Administration Allergies terazosin Allergy (Severe, Verified 09/18/23 11:12) Unknown oxycodone Adverse Reaction (Intermediate, Verified 09/18/23 11:12) Nausea pollen Adverse Reaction (Intermediate, Uncoded 09/18/23 11:12) sneezing, congestion Exam Narrative Exam Narrative: Physical Exam: Gen: Patient of apparent stated age, NAD Head and face: no facial or cranial abnormalities Neck: Supple, no meningismus, no occipital tenderness CV: irregular at times Resp: CTA B/L Abd: soft, nontender, nondistended Ext: No edema. No clubbing or cyanosis. No bony deformity. Neuro Exam: Language: fluency, naming, repetition, and comprehension intact; Mental Status: AAOx3, current events intact, fund of knowledge intact; Speech: no dysarthria Cranial nerves: Funduscopy: not performed CN II: visual prather altered in both eyes but not in a homonymous pattern - reports macular degeneration - had difficulty with L upper quadrant on the L and L lower quadrant on the right - could this be subtle neglect?? CN III, IV, : extraocular movements intact, no nystagmus, pupils symmetric and reactive to light CN V: face sensation intact to LT and PP CN VII: no facial asymmetry noted CN VIII: hearing intact bilaterally CN IX, X: palate rises symmetrically CN XI: trapezius/SCM 5/5 bilaterally CN XII: protrudes tongue symmetrically Sensory: intact to LT, PP, vibration, and joint position in all extremities, Motor: bulk and tone intact. Fine motor movements slightly reduced on the L. Difficulty lifting L arm up. Strength 5/5 throughout the R hemibody. L deltoid 3+/5. L biceps 4-/5, triceps 5-/5, wrist extension 4-/5, LLE all 5-/5. Reflexes: 1+/hyporeflexic throught at the biceps, triceps, brachioradialis; absent at the patella and achilles tendons bilaterally; Coordination: HTS intact bilaterally; appears LUE movements altered due to weakness and not due to ataxia Gait: not seen Results Last Vital Signs Temp 97.9 F 12/01/23 15:38 Pulse 89 12/01/23 15:38 Resp 18 12/01/23 15:38 BP 123/74 12/01/23 15:38 Pulse Ox 94 12/01/23 15:38 Labs 11/30/23 19:49 11/30/23 19:49 Labs: Laboratory Results - last 24 hr 11/30/23 11/30/23 19:49 23:20 WBC 9.48 RBC 4.04 L Hgb 11.9 L Hct 36.9 L MCV 91 MCH 29.5 MCHC 32.2 RDW 13.6 Plt Count 109 L MPV 9.6 Immature Gran % 0.3 Neutrophils % 60.4 Lymphocytes % 30.4 Monocytes % 7.8 Eosinophils % 0.7 Basophils % 0.4 Nucleated RBC % 0.0 Absolute Neutrophils 5.72 Absolute Lymphocytes 2.88 Absolute Monocytes 0.74 Absolute Eosinophils 0.07 Absolute Basophils 0.04 Sodium 140 Potassium 5.0 Chloride 105 Carbon Dioxide 25.8 Anion Gap 9.2 BUN 27 H Creatinine 1.8 H Est GFR (CKD-EPI 2020) 36.89 Glucose 115 H Calcium 8.3 L Troponin I < 50 < 50
--- NOTE | 2023-12-01 16:07 | PT.INIE ---
PT Notes Visit Reasons: TIA (cardiology) Physical Therapy Inpatient Initial Evaluation Date: 12/01/2023 Referring Doctor: Sumeet Maddox MD PT Orders: PT CONSULT: Safety Consult for D/C Precautions: Fall. Standard.? L UE/LE hemiparesis. Patient Profile/Admitting Diagnosis: Erwin is an 82-year-old male patient who presented to the ED on 11/30/2023 due to L arm weakness and fall at home. Patient was trying to reach something on the floor at home, lost balance, fell backwards, hit his head. was present when all these happened and had a hard time helping her get up, she noticed that his his arm went flaccid. She called the EMS who brought patient to the ED for further evaluation. Patient is diagnosed with CVA vs TIA. Brain MRI as of today reads: 1. Multifocal areas of restricted diffusion in both the right cerebral and cerebellar hemispheres consistent with multiple small infarcts. Emboli should be considered. There is a solitary focus of restricted diffusion in the left basal ganglia. 2. Age-related cerebral atrophy and chronic microvascular ischemic disease. PMHX: All Active Problems Left arm weakness (Acute) Left rotator cuff tear arthropathy (Acute) Atrial fibrillation (Chronic) Bigeminal rhythm (Acute) Depression (Chronic) DVT prophylaxis (Acute) Advance directive discussed with patient (Acute) De Quervain's tenosynovitis, left (Acute) Steroid injection: 06/26/2020, 02/21/2021 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 (Acute) Laceration of left index finger (Acute) Fracture of distal phalanx of left index finger (Acute) De Quervain's tenosynovitis, right (Acute) Injection: 06/13/2021; 01/24/2021es planus of left foot (Acute) Biceps tendinitis of left upper extremity (Acute) Bursitis of shoulder, left (Acute) Hyponatremia (Chronic) Anemia (Chronic) Contusion of leg, right (Acute) Medical History Rupture of left quadriceps muscle s/p repair of left quad/retinacular repair x2 DOS: 09/25/22; 09/10/22 Chronic cough CHF (congestive heart failure) Hx of sinusitis 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 Hypertension HLD (hyperlipidemia) Hyperpiesia Bilateral carotid artery stenosis Cardiomyopathy Heart palpitations None recently (05/28/22)CAD (coronary artery disease) HTN (hypertension) with goal to be determined CKD (chronic kidney disease) History of non-ST elevation myocardial infarction (NSTEMI) November 2017 Surgical History 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/22) Hx of total knee arthroplasty LEFT S/P tendon repair 09/15/22 Hx of rhinoplasty Status post left foot surgery (09/17/21) [facility] Status post laparoscopic cholecystectomy (~01/2022) History of heart artery stent Hx of cataract surgery S/P ORIF (open reduction internal fixation) fracture Right distal femur fracture History of revision of total replacement of right knee joint Right TKA - [place] (2003) Two-stage revision for infection -[place] (2008) Social History/Home Situation: Lives with in a private home with a ramp to enter.? The living room on the main floor has been set up to be his sleeping area so he does not need to deal with steps.? reports that she helped with walking using gait belt,? FWW, and wheelchair follow prior to admission. Equipment Owned/DME: FWW, SPC Subjective: Could not put on socks and shoes today like he did before today's admission. Did deny headache, chest pain, and lightheadedness throughout. R hand shaky with movement. Objective: General Observation: Seated on bedside regular chair. Pillow under L UE. Telemetry monitoring in place. Marina present in room throughout session. Red area on L knee. Small abrasion on R knee. Mental Status: A and O x4 Vital signs:? Closely monitored by nursing staff Pain: None reported ROM: Right Upper Extremity: Shoulder Flexion WFL. Shoulder abduction WFL. Elbow flexion WFL. Wrist flexion WFL. Functional opening and closing of hand WFL. Left Upper Extremity: Shoulder Flexion allows up to 90 dgrees. Shoulder abduction allows about 80 degrees. Elbow flexion WFL. Wrist flexion WFL. Functional opening and closing of hand WFL. Right Lower Extremity: Hip flexion WFL. Hip abduction WFL. Knee flexion 10 degrees to 100 degrees. Knee extension -10 degrees. Ankle dorsiflexion 10 degrees. Ankle plantarflexion WFL. Left Lower Extremity: Hip flexion about 100 degrees. Hip abduction WFL. Knee flexion 30 degrees to 90 degrees. Knee extension -30 degrees. Ankle dorsiflexion to neutral only. Ankle plantarflexion WFL. Strength: Right Upper Extremity: Shoulder flexors 4/5. Shoulder abductors 4/5. Elbow flexors 5/5. Elbow extensors 5/5. Neurology Tech strong. Left Upper Extremity: Shoulder flexors 3-/5. Shoulder abductors 3-/5. Elbow flexors 3/5. Elbow extensors 3/5. Neurology Tech weaker than L but functional. Right Lower Extremity: Hip flexors 4/5. Hip abductors 4/5. Knee flexors 3-/5. Knee extensors 3-/5. Ankle dorsiflexors 3-/5. Ankle plantarflexors 4-/5. Left Lower Extremity: Hip flexors 3-/5. Hip abductors 4-/5. Knee flexors 2-/5. Knee extensors 2-/5. Ankle dorsiflexors 1/5. Ankle plantarflexors 2-/5. Sensation: Intact as to pain and light pressure in bilateral lower extremities Bed Mobility/Transfers: Moderate cueing provided for use of B hands as needed for support, movement sequence, AD management, and posture to reduce fall risk and minimize pain report Sit to stand moderate assist of PT and DONOR SERVICES COORDINATOR Yolanda, patient required moderate verbal and tactile cueing to place hand onto L walker handle. Stand to sit from bedside chair moderate assist Sit to stand from wheelchair maximal assist of 1 and moderate assist of another Wheelchair to chair maximal assist of 1 and moderate assist of another Gait: 15 feet using FWW and FWW with moderate assist of 2 and wheelchair follow. Significantly decreased B knee extension, L more affected than R. Trunk lean increased to L. Decreased grasp onto L walker handle. Excessive trunk flexion. Moderate cueing provided for limb sequence, weight distribution onto two feet and FWW, and posture. Reported fatigue and requested to sit down. Stairs: Not applicable.? Deferred. Balance: Static Sitting: Normal Dynamic Sitting: Good Static Standing: Fair Dynamic Standing: Fair Special Tests: Mobility Limitations Standardized Measure [employer] AM-PAC 6 clicks Basic Mobility Inpatient Short Form: Raw Score: 12 ?CMS Score: 69% deficit NEURO TESTING: Tone: Hypotoninc on L UE Rapid alternating movement: Impaired on L Dysmetria: Positive on L L hemineglect: Positive on L Informed Consent/Education: Patient was instructed in purpose of PT consult and plan of care. Agreeable to proceed with established PT POC to achieve personal goals. Assessment: L UE/LE hemiparesis from recent neurologic insult. L hemineglect with less awareness of L UE. Dymsetric on L. Needs assistance of 2 people for all mobility ADL performance. Patient presents with clinical signs and symptoms consistent with current/admitting diagnoses that have resulted to mobility limitations, gait instability, generalized weakness, and overall ADL decline as demonstrated by the following impairment level findings: 1.? Decreased strength to L UE/LE major muscle groups 2.? Impaired standing balance 3.? Impaired activity tolerance 4.?L hemineglect 5. Dysmetric on L UE Impairments are contributing to the following functional limitations: 1.? Decline in bed mobility skills 2.? Decline in transfer skills 3.? Difficulty with ambulation without assistive device and physical assistance of 2 peopel 4.? Increased completion time for mobility ADL performance 5.? Increased risk for falls Patient is assessed as a [id number] moderate complexity based on the following: History: 82-year-old male with impairment level findings, functional limitations, and past medical history as indicated above Examination: Demonstrable impairment in strength, balance, and mobility level with underlying impairments and functional limitations as documented above Presentation: Evolving Decision Makin moderate complexity Goals: Goals X1 week 1. Supine-Sit independent 2. Sit-Supine independent 3. Sit-Stand independent 4. Stand-Sit independent 5. Bed-Chair independent 6. Chair-Bed independent 7. Independent gait on level surface with use of SPC for at least 300 feet without report of pain nor dyspnea 8. Independent with home exercise program 9. Good static and dynamic standing balance/tolerance Plan of Care/Treatment Plan: 1-2x/day, 7 days/week x 1 week. Plan of care has been reviewed with the EXPORT MANAGER providing the service under Physical Therapy direction. Initiate Physical Therapy intervention for pain management as needed, neuromuscular re-education, strengthening, bed mobility, transfers, gait, stairs, balance training, and use of assistive device. DISCHARGE RECOMMENDATIONS: [] Home with no services [] [] Home with services [specify] [] Home with outpatient PT [] [] SNF for continued rehabilitation [] [] Pharmacy Benefits Coordinator Care [] [] SNF versus LTC based on ability to participate and progress [] [X] Acute stroke rehab facility to regain PLOF TREATMENT CODE/TIME: 58939 x 20 minutes for 1 unit, 87954 x 24 minutes for 2 units (15:11-15:55). Thank you for the opportunity to participate in the care of this patient. Flory Whyte PT, DPT, CLT [facility] [place], [place]
--- NOTE | 2023-12-01 16:16 | PGE_ITS ---
Date of Service Date of service: 12/01/23 Time of Service: 16:16 Assessment and Plan Assessment and plan (1) CVA (cerebral vascular accident): Status: Chronic Assessment and plan: - Patient initially presented with concerns of left upper and lower extremity weakness that had somewhat improved by present to the emergency department -While his CT did not show any acute findings, MRI/MRA of the head did show multiple small right cerebral and cerebellar emboli as well as decreased diffusion in the left basal ganglia all consistent with embolic CVA -Patient was started on high-dose statin will be continued -Started on 81 mg daily aspirin will be continued -appreciate Neuro recs: start Pradaxa 150mg BID on 12/02, continue ASA, will f/u as outpatient, may need outpatient FRED (2) Atrial fibrillation: Status: Chronic Assessment and plan: - Continue metoprolol -Anticoagulation as noted above (3) HTN (hypertension): Status: Chronic Assessment and plan: - Continue home Lasix and losartan Subjective Subjective Interval history since last seen: Patient states that he feels like he is back to his baseline. However, after this discussion he worked with PT and was found to be a 2-person assist and would benefit from MATTY placement. Exam Narrative Exam Narrative: Older gentleman sitting up in the chair no acute distress, ANO x 4, heart regular rhythm, lungs clear to auscultation bilaterally, abdomen soft, nontender, nondistended, significant left upper and lower extremity weakness as compared to right upper and lower extremity, for complete details of patient's neurologic deficits please see physical therapy note Objective Last Vital Signs Temp 97.9 F 12/01/23 15:38 Pulse 89 12/01/23 15:38 Resp 18 12/01/23 15:38 BP 123/74 12/01/23 15:38 Pulse Ox 94 12/01/23 15:38 Laboratory Results - last 24 hr 11/30/23 11/30/23 19:49 23:20 WBC 9.48 RBC 4.04 L Hgb 11.9 L Hct 36.9 L MCV 91 MCH 29.5 MCHC 32.2 RDW 13.6 Plt Count 109 L MPV 9.6 Immature Gran % 0.3 Neutrophils % 60.4 Lymphocytes % 30.4 Monocytes % 7.8 Eosinophils % 0.7 Basophils % 0.4 Nucleated RBC % 0.0 Absolute Neutrophils 5.72 Absolute Lymphocytes 2.88 Absolute Monocytes 0.74 Absolute Eosinophils 0.07 Absolute Basophils 0.04 Sodium 140 Potassium 5.0 Chloride 105 Carbon Dioxide 25.8 Anion Gap 9.2 BUN 27 H Creatinine 1.8 H Est GFR (CKD-EPI 2020) 36.89 Glucose 115 H Calcium 8.3 L Troponin I < 50 < 50 Time Spent with Patient Time Spent with Patient: >50 minutes Time was spent: preparing to see the patient(eg.review tests), obtaining and/or reviewing separately otained hiistory, ordering medications,tests, procedures, referring, communicating with other health health care / medical job titles, indepentently interpreting results, counseling the patient and care coordination
[2023-12-01 19:19] LABS: Hemoglobin A1C 5.5 % (<5.7)
[2023-12-01 19:40] VITALS: BP 135/79; PULSE 103; RESP 19; TEMP 36.8; O2SAT 97
--- NOTE | 2023-12-01 20:44 | DI.MRI_ITS ---
Exam(s) MR BRAIN WO EXAM: MR BRAIN WO CLINICAL HISTORY: Left arm weakness TECHNIQUE: Multiplanar multisequence MRI of the brain was performed. COMPARISON: CT CT HEAD - STROKE PROTOCOL from 11/30/2023 FINDINGS: VENTRICLES AND EXTRA AXIAL SPACES: Normal in size and morphology for the patient's age. MIDLINE SHIFT: None. CEREBRAL PARENCHYMA: There are several areas of restricted diffusion in the right cerebral and cerebe llar hemispheres consistent with multiple small infarcts. There is a solitary focus of restricted di ffusion in the left basal ganglia. There are areas of hyperintense signal seen in the white matter o n the FLAIR and T2 weighted images consistent with small vessel ischemic disease. HEMORRHAGE: None. BRAINSTEM/CEREBELLUM: Normal. CALVARIUM: Normal. VISUALIZED PARANASAL SINUSES/MASTOIDS:Clear. [place]: Normal flow void. PITUITARY GLAND: Unremarkable. OTHER FINDINGS: None. IMPRESSION: 1. Multifocal areas of restricted diffusion in both the right cerebral and cerebellar hemispheres con sistent with multiple small infarcts. Emboli should be considered. There is a solitary focus of res tricted diffusion in the left basal ganglia. 2. Age-related cerebral atrophy and chronic microvascular ischemic disease. DATA REPOSITORY:
[2023-12-01] MEDS: Doxepin 10 MG CAP PO (21:01)
[2023-12-01] MEDS: Metoprolol CR 25 MG TABCR PO (21:01)
[2023-12-01] MEDS: Atorvastatin 40 MG TAB 80 MG PO (21:02)
[2023-12-01] MEDS: Fluticasone NASAL SPRAY 16 GM BTL NS (21:54)
[2023-12-01 23:19] VITALS: BP 144/92; PULSE 83; RESP 16; TEMP 37.2; O2SAT 95
--- NOTE | 2023-12-02 | DI.CT_ITS ---
Exam(s) CT CHEST/ABD/PEL W EXAM: CT CHEST/ABD/PEL W CLINICAL HISTORY: Multifocal CVA, poss. malignancy. TECHNIQUE: Imaging Protocol: Axial computed tomography images with coronal and sagittal reformatted images were created and reviewed CONTRAST MATERIAL: Intravenous: Omnipaque 350 Contrast volume:100 ml Oral: yes / COMPARISON: CT CT CHEST/ABD/PEL WO from 02/02/[address] CHEST PE CTA from 07/06/2022 CR XR CHEST 2V PA LATERAL from 09/27/2022 CT,NM,TMT NM MPI REST STRESS GRP from 07/07/2023 CR,XR XR PORTABLE CHEST AP from 11/30/2023 FINDINGS: CHEST: Tracheobronchial tree: Patent where visualized. Pulmonary parenchyma: No consolidation or dominant measurable mass. Mild fibrotic changes. Pleura: No effusion or pneumothorax. Lymph nodes: Within normal limits. Aorta: Thoracic portion non-dilated. Heart: No pericardial effusion. Coronary artery calcifications and stents. Bones: Degenerative changes. No lytic or blastic lesions.Mild T12 compression fracture old left rib fractures. Soft tissues: Unremarkable. ABDOMEN and PELVIS: Liver: Normal density. Tiny cyst. No suspicious mass. Gallbladder and biliary tract: Status post cholecystectomy. No biliary dilatation. Pancreas: 10/07/2005. No abnormal calcifications or inflammatory process. Spleen: Enlarged, measuring 15 x 6 by 15 cm. Kidneys: Normal size, contour and axis. No radiodense stones. No obstructive uropathy. Bilateral re nal cysts. No follow-up recommended. No suspicious masses seen. Adrenal glands: No masses seen. Aorta: Abdominal portion non-dilated. Severe atherosclerotic changes. Mild dilatation distal abdomin al aorta to 2.8 cm. Lymph nodes: Within normal limits. Soft tissues: Unremarkable. Bladder: Unremarkable. Bowel: Large quantity of stool in rectum. Moderate quantity of stool elsewhere. No obstruction or b owel wall thickening. Mild sigmoid diverticulosis. Peritoneal cavity: No ascites. No focal collection. No mesenteric inflammatory response. Bones: Unremarkable for age. Reproductive organs: Within normal limits. IMPRESSION: No acute abnormality in the chest. Splenomegaly. No evidence of adenopathy or mass.. RADIATION DOSE DELIVERED: 1,292.47mGy.cm Total DLP DATA REPOSITORY: All CT scans at this facility are submitted to the National Radiology Data Registry (NRDR) Dose Index Registry (DIR) with the [employer] (ACR). RADIATION OPTIMIZATION: All CT scans at this facility use at least one of these dose optimization te chniques: automated exposure control; mA and/or kV adjustment per patient size (includes targeted exa ms where dose is matched to clinical indication); or iterative reconstruction.
[2023-12-02 03:52] VITALS: BP 138/89; PULSE 77; RESP 20; TEMP 36.5; O2SAT 95
[2023-12-02 07:49] VITALS: BP 153/83; PULSE 80; RESP 18; TEMP 37; O2SAT 97
[2023-12-02 07:57] LABS: Calculated LDL 46 mg/dL (<100); Cholesterol 94 mg/dL (<200); HDL Cholesterol 37 mg/dL (40-60); Triglyceride 58 mg/dL (<150)
[2023-12-02] MEDS: Cholecalciferol (Vitamin D3) 1,000 UNIT TAB 1000 UNITS PO (07:59)
[2023-12-02] MEDS: Valsartan 80 MG TAB 160 MG PO (08:00)
[2023-12-02] MEDS: buPROPion-CR 150 MG TABCR PO ×2 (08:00→20:26)
[2023-12-02] MEDS: Potassium Chloride 20 MEQ TABCR PO (08:01)
[2023-12-02] MEDS: Tamsulosin 0.4 MG CAPCR PO (08:02)
[2023-12-02] MEDS: Furosemide 20 MG TAB PO (08:02)
[2023-12-02] MEDS: Aspirin 81 MG CHEW PO (08:02)
[2023-12-02] MEDS: Multivitamin TAB 1 TAB PO (08:03)
[2023-12-02] MEDS: Fluticasone NASAL SPRAY 16 GM BTL NS ×2 (08:04→20:34)
[2023-12-02] MEDS: Normal Saline - Diluent 50 ML VIAL IJ (08:53)
[2023-12-02] MEDS: Omnipaque 350 MG/ML 500 ML BTL-Imaging package IJ (08:55)
--- NOTE | 2023-12-02 08:59 | PGE_ITS ---
Date of Service Date of service: 12/02/23 Time of Service: 09:00 Assessment and Plan Assessment and plan (1) CVA (cerebral vascular accident): Status: Chronic Assessment and plan: - Patient initially presented with concerns of left upper and lower extremity weakness that had somewhat improved by present to the emergency department -While his CT did not show any acute findings, MRI/MRA of the head did show multiple small right cerebral and cerebellar emboli as well as decreased diffusion in the left basal ganglia all consistent with embolic CVA -Patient was started on high-dose statin will be continued -Started on 81 mg daily aspirin will be continued -appreciate Neuro recs: start Pradaxa 150mg BID on 12/02, continue ASA, will f/u as outpatient -CT chest abdomen pelvis without signs of malignancy (2) Atrial fibrillation: Status: Chronic Assessment and plan: - Continue metoprolol -Anticoagulation as noted above (3) HTN (hypertension): Status: Chronic Assessment and plan: - Continue home Lasix and losartan Subjective Subjective Interval history since last seen: Patient states that he is doing well this morning. He appreciates working on discharging him to subacute rehab, and also understands reason for CT chest abdomen pelvis that was ordered this morning. Otherwise he has no other complaints or concerns at this time Exam Narrative Exam Narrative: Older gentleman sitting up in the chair no acute distress, ANO x 4, heart regular rhythm, lungs clear to auscultation bilaterally, abdomen soft, nontender, nondistended, significant left upper and lower extremity weakness as compared to right upper and lower extremity, for complete details of patient's neurologic deficits please see physical therapy note Objective Last Vital Signs Temp 98.6 F 12/02/23 07:49 Pulse 80 12/02/23 07:49 Resp 18 12/02/23 07:49 BP 153/83 H 12/02/23 07:49 Pulse Ox 97 12/02/23 07:49 Laboratory Results - last 24 hr 12/01/23 12/02/23 18:42 07:21 Hemoglobin A1c 5.5 Triglycerides 58 Total Cholesterol 94 LDL Cholesterol, Calc 46 HDL Cholesterol 37 L Time Spent with Patient Time Spent with Patient: >50 minutes Time was spent: preparing to see the patient(eg.review tests), obtaining and/or reviewing separately otained hiistory, ordering medications,tests, procedures, referring, communicating with other health hospice care consultant, indepentently interpreting results, counseling the patient and care coordination
--- NOTE | 2023-12-02 09:01 | PDOC.CMPRO ---
Date of service: 12/02/23 Care Management Progress Note Progress Note Text Progress Note Text: S/O: Tra was sitting up in a chair when talking with TOSHIA. Tra asked about a referral to [facility] and stated [facility] would be too far. CM followed up with phone calls to both. CM completed IMM form with PT. CM following. A: Tra (Erwin) is an 82 year old male admitted to [facility] 12/01/23 for a TIA. P: PT recommendations is for subacute rehab. TOSHIA AA sent referrals to [facility] and [facility]. He will transport via EMS coordinated by TOSHIA AA. SDOH(Care Management) Screening Will the Patient Participate in the Screening?: Unable to obtain Do you worry about having a steady place to live?: no In the past 12 months, have you had to go without electric, gas, oil or water in your home?: no Have you or anyone in your house had to go without enough food to eat?: no Has lack of transportation kept you from medical appointments or from doing things needed for daily living?: no Has anyone in your support network made you feel unsafe for any reason?: no
--- NOTE | 2023-12-02 09:17 | OTIE_ITS ---
Occupational Therapy Notes Inpatient Occupational Therapy Evaluation Date: 12/02/23 Referring Doctor:Dr. Mack BARRERA Orders: Non Urgent Precautions: Fall, Standard, Full PATIENT PROFILE/ADMITTING DIAGNOSIS: Pt is a 82 year old male who was admitted to Med Surg with a dx of CVA, HTN,, A-fib. He presented to the ED on 11/30/23. Past Medical History: All Active Problems Left arm weakness (Acute) Left rotator cuff tear arthropathy (Acute) Atrial fibrillation (Chronic) Bigeminal rhythm (Acute) Depression (Chronic) DVT prophylaxis (Acute) Advance directive discussed with patient (Acute) De Quervain's tenosynovitis, left (Acute) Steroid injection: 06/26/2020, 02/21/2021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 (Acute) Laceration of left index finger (Acute) Fracture of distal phalanx of left index finger (Acute) De Quervain's tenosynovitis, right (Acute) Injection: 06/13/2021; 01/24/2021es planus of left foot (Acute) Biceps tendinitis of left upper extremity (Acute) Bursitis of shoulder, left (Acute) Hyponatremia (Chronic) Anemia (Chronic) Contusion of leg, right (Acute) Medical History Rupture of left quadriceps muscle s/p repair of left quad/retinacular repair x2 DOS: 09/25/22; 09/10/22Chronic cough CHF (congestive heart failure) Hx of sinusitis 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 Hypertension HLD (hyperlipidemia) Hyperpiesia Bilateral carotid artery stenosis Cardiomyopathy Heart palpitations None recently (05/28/22)CAD (coronary artery disease) HTN (hypertension) with goal to be determined CKD (chronic kidney disease) History of non-ST elevation myocardial infarction (NSTEMI) November 2017 Surgical History 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/22) Hx of total knee arthroplasty LEFTS/P tendon repair 09/15/22Hx of rhinoplasty Status post left foot surgery [facility]17/21[facility] History of heart artery stent Hx of cataract surgery S/P ORIF (open reduction internal fixation) fracture Right distal femur fracture History of revision of total replacement of right knee joint Right TKA - [place] (2003) Two-stage revision for infection -[place] (2008) Social History/Home Situation: Pt states that he lives in a private home with his . He has a chronic issue with his (L) UE which he was seeing PT for in the outpatient setting. He notes that he is fairly (I) with his ADL/IADL routines. He has 13 steps in his home with a chiar lift, he has a walk in shower with grab bars and a seat. Equipment owned/DME: Chair lift, grab bars, shower seat, FWW, cane SUBJECTIVE: Pt was sitting in chair when OT arrived, he notes that he is doing well and that he plans to attend [facility] when medically cleared per MD. OBJECTIVE: General Observation: Pleasant, multiple IV access sites in (B) UE Mental Status: A&Ox4 Pain: c/o discomfort in (L) shoulder but notes that this is baseline. ROM: AROM RUE: Shoulder Flexion WFL. Elbow flexion WFL. Wrist flexion WFL. Functional opening and closing of hand WFL. LUE: Shoulder Flexion allows up to 90*. Shoulder abduction allows about 80 degrees. Elbow flexion WFL. Wrist flexion WFL. Functional opening and closing of hand WFL. STRENGTH: RUE 4/5 throughout LUE 4/5 throughout FUNCTIONAL MOBILITY/ADLS: Transfers with FWW BATHING max (A) set up/clean up Bathing UE (I) face, (B) UE, abdomen and under arms with good technique utilized throughout DRESSING seated in chair Dressing UE (I) [facility] gown Dressing LE min (A) donning socks and shoes GROOMING (I) TOILETING NT EATING NT with OT but notes that he is (I) with this and able to perform (I) BALANCE: Static sitting Normal Dynamic Sitting Normal SPECIAL TESTS: Daily Activity Limitations Standardized Measure [facility] AM -PAC ?6 clicks? Daily Activity Inpatient Short Form: Raw score: 23 Standardized score: 51.12 CMS score: 15.86% INFORMED CONSENT/EDUCATION: Pt instructed in purpose of OT Consult and plan of care. ASSESSMENT: Patient is a 82-year-old male referred to occupational therapy services with diagnosis of CVA, HTN,, A-fib. Patient presents with clinical signs and symptoms consistent with dx, as demonstrated by the following impairment level findings/functional limitations: Impairments in ADL/IADL and leisure activities, decreased functional mobility required for ADL performance, decreased functional activity tolerance, mobility requires 2 person (A), decreased use of (L) UE which is chronic in nature d/t dx, decreased functional standing tolerance. Patient is assessed as a Moderate [id number] complexity based on the following: History: see above Examination: see functional limitations as noted above Presentation: evolving Decision Making: AMPAC score 23 GOALS Goals x1 week 1. Transfers Mod (A) 2. Dressing (I) UE/LE 3. Bathing (I) UE and LE with max (A) set up 4. Toileting on toilet (I) 5. Eating seated in chair (I) PLAN OF CARE/TREATMENT PLAN: 1x/day, 5 days/ week x 1week Initiate Occupational Therapy Services for bathing, dressing, grooming, toil eting, eating, transfer training. DISCHARGE RECOMMENDATIONS OT recommends pt go tot acute stroke rehabilitation facility to regain his prior level of function. TREATMENT TIME/MINUTES/CODES 48165, 64331, 30 minutes. Samantha Templeton OTR/[facility] [place], [place]
--- NOTE | 2023-12-02 09:28 | PGE_ITS ---
Date of Service Date of service: 12/02/23 Time of Service: 09:28 Assessment and Plan Assessment and plan (1) Cerebral aneurysm: Status: Acute (2) CVA (cerebral vascular accident): Status: Chronic (3) Atrial fibrillation: Status: Chronic Assessment and plan: #1. Stroke. Mr. Brothers is an 82 year-old with known p.afib on apixaban 2.5mg BID (lower dose due to age and renal status) who is admitted with ischemic stroke manifested by L arm>leg weakness, with ?subtle neglect (non-homonymous visual field loss on the left in both eyes). Etiology of his stroke remains unknown but appears embolic despite reported compliance with apixaban. 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 After discussion with cardiology, will not pursue FRED as it would not chemical cell changer. Medications: -aspirin 81mg daily for secondary stroke prevention; would continue this indefinitely given history of CAD and notable plaque -atorvastatin 80mg daily for secondary stroke prevention - this is his outpatient does; LDL at goal; could lower from my standpoint, but will defer to cards -hold anticoagulation for ~3 days (per Guidelines for minor stroke NIHSS<8; AHA/ASA less specific but hold for at least 48 hours) and would switch to dabigatran 150mg BID in case of failure of apixaban - start 12/02; ADRs discussed Other: -Allow permissive hypertension x48 hours after stroke, then ok to start slowly lowering -Physical therapy for leg weakness, gait training - they have recommended inpatient rehab which we discussed; he agrees -Occupation therapy for upper extremity weakness, activities of daily living - rec's inpatient rehab -Speech therapy for speech and swallow - they have signed off -Long-term preventative goals: Goal LDL <70. Goal SBP 120-140. Goal A1c <7. -We discussed increased risk of depression/anxiety following stroke. #2. Cerebral PEDRO aneurysm. Small. Discussed with him today. Will plan serial imaging and can discuss whether he wants a EUGENIO referral as an outpatient. He should follow-up in the neurology clinic in 4-6 weeks post discharge. I will see him tomorrow if he is still inpatient. Subjective Subjective Interval history since last seen: Mr. Brothers notes slight improvements in strength in the L arm particularly - can raise the arm above his head. I was able to review his MRI images with him today. CT C/A/P performed this am. I spoke with Dr. Link yesterday regarding FRED and we didn't think it would change med recs, so will not pursue at this time. He is anxious to get to [place] for rehab. Waiting on a bed per his understanding. -Labs (12/01/23): A1c 5.5, LDL 46 Exam Narrative Exam Narrative: Physical Exam: Constitutional: Patient of apparent stated age, well nourished, well developed, no acute distress Neuro: MS/Language/Speech: Alert, oriented, clear language (fluency and comprehension), no dysarthria Motor: Normal bulk and tone. Able to lift L arm above head today. L Deltoid and biceps 4-/5, triceps 4/5, LLE 5-/5 throughout. Coordination: no ataxia Gait: not seen Objective Last Vital Signs Temp 98.6 F 12/02/23 07:49 Pulse 80 12/02/23 07:49 Resp 18 12/02/23 07:49 BP 153/83 H 12/02/23 07:49 Pulse Ox 97 12/02/23 07:49 Laboratory Results - last 24 hr 12/01/23 12/02/23 18:42 07:21 Hemoglobin A1c 5.5 Triglycerides 58 Total Cholesterol 94 LDL Cholesterol, Calc 46 HDL Cholesterol 37 L Time Spent with Patient Time Spent with Patient: 35-49 minutes Time was spent: preparing to see the patient(eg.review tests), obtaining and/or reviewing separately otained hiistory, referring, communicating with other health progressive care unit registered nurse, indepentently interpreting results, counseling the patient and care coordination
--- NOTE | 2023-12-02 11:23 | PT.INTREAT ---
PT Notes Visit Reasons: TIA (cardiology) Physical Therapy Inpatient Treatment Note Date: 12/02/2023 Precautions: Fall. Standard.? L UE/LE hemiparesis. Subjective: Feels better this morning. Less fatigued and much attentive than he did yesterday. Agreeable to reclaiming the chair he had yesterday as he is more comfortable with it. Objective: General Observation: Seated on bedside chair. Telemetry monitoring in place. Red area on L knee. Small abrasion on R knee. Mental Status: A and O x 4 Vital signs:? Closely monitored by nursing staff Pain: None reported Bed Mobility/Transfers: Moderate cueing provided for use of B hands as needed for support, movement sequence, AD management, and posture to reduce fall risk and minimize pain report Sit to stand moderate assist, L hand contiunes to have difficulty with L walker handle placement Stand to sit from bedside chair moderate assist Sit to stand from wheelchair moderate assist Gait: 75 feet + 75 feet using FWW and FWW with moderate assist of Pt and wheelchair follow of JOSE Paz. Minimal verbal cueing provided to increase knee extension at each midstance, L with more effort than the R. Trunk lean to L decreasing. Grasp onto L walker handle not full as the R. Speed somewhat improved cmpared to tomorrow. Stairs: Not performed for this session. Balance: Static Sitting: Normal Dynamic Sitting: Good Static Standing: Fair Dynamic Standing: Fair NEURO TESTING: Tone: Tone on L UE improving Rapid alternating movement: Still impaired on L Dysmetria: Still apparent on L L hemineglect: Mild hemiineglect seen NEURO RE-ED: Facilitated dynamic balance awareness during transfer and ambulation task performance for this session. facilitated motor control and anticipatory reactions--encouraged trunk extension and knee extension during each midstance on each leg to increase safety of walking. Worked on increasing trunk midline alignment to minimize excessive lean on the L. Assessment: Multiple ischemic insults sustained per most recent MRI resulting to L UE/LE hemiparesis, L mild hemineglect with less awareness of L UE, and dymsetric on L. Continues to need assistance of 2 people for all mobility ADL performance. Patient presents with clinical signs and symptoms consistent with current/admitting diagnoses that have resulted to mobility limitations, gait instability, generalized weakness, and overall ADL decline as demonstrated by the following impairment level findings: 1.? Decreased strength to L UE/LE major muscle groups 2.? Impaired standing balance 3.? Impaired activity tolerance 4.?L hemineglect 5. Dysmetric on L UE Impairments are contributing to the following functional limitations: 1.? Decline in bed mobility skills 2.? Decline in transfer skills 3.? Difficulty with ambulation without assistive device and physical assistance of 2 peopel 4.? Increased completion time for mobility ADL performance 5.? Increased risk for falls DISCHARGE RECOMMENDATIONS: [] Home with no services [] [] Home with services [specify] [] Home with outpatient PT [] [] SNF for continued rehabilitation [] [] Active Directory Systems Administrator Care [] [] SNF versus LTC based on ability to participate and progress [] [X] Acute stroke rehab facility to regain PLOF TREATMENT CODE/TIME: [id number] x 38 minutes for 3 units (11:23-12:01).
--- NOTE | 2023-12-02 11:53 | W.PALLCONSUL ---
Date of service: 12/02/23 Time of Service: 11:53 History of Present Illness Narrative: Tra Brothers is an 82 man from [facility] who was admitted to [facility] 2 days ago with ischemic stroke with left arm and leg weakness and some subtle hemineglect. [place] by neurology likely to be embolic despite taking DOAC prior to CVA. MRI day after admission showed multiple areas of acute and subacute small and punctate ischemia, felt to be embolic. Concern raised by neurology over possible underlying malignancy given multiple embolic events in the setting of DOAC. Medical history significant for history of paroxysmal atrial fibrillation (reportedly has been compliant with taking DOAC, cardioverted May 2023), hypertension, hyperlipidemia, ASCVD with history of NSTEMI, CHF (EF 50-55% yesterday), CKD 3 (creatinine range 1.6?2.0), depression, wet macular degeneration (intraocular shots every 2 months in [place]). Most recently he had multiple physical therapy visits because of chronic left shoulder pain, left lower extremity weakness (due to failed knee replacement 2021) and balance issues. Palliative Care Team has been consulted to help with goals of care discussion. Patient and have been living independently with only a small amount of help from mowing and plowing. has some health issues and he has had some mobility issues. However he has been driving and even gardening and continues to be independent. We complement each other in our abilities . Care Team: Primary Care physician:Dr. Myles ([facility]) Neurology: Dr. French Cardiology: Dr. Lizarraga Orthopedics: Dr. 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 Hobbies: Reading (reading today). Works in the garden, watch TV, cooks. Additional supports: Marina siblings in [place] and [place]. Granddaughters in [place]. They are planning to move to assisted living at some point (within years). Additional Services: None prior to this hospital admission. Impression of currents health status: Getting better. What bothers you the most: That he cannot transfer by himself. Needs two people. What worries you the most: That he may not be able to go for outside walks again. Needs to be able to go on trip [place] in 4 months (and take a 16 day cruise back). Goals: TO be able to walk outside again, TO be able to go with on scheduled trip to [facility] in May, TO be the way he was before stroke. Function: Ambulation: Uses cane prior to admission ADLs: ABle to dress himself and feed himself iADLs: Was doing some chores (did most of the cooking at home and laundry prior to CVA). Only help they get is mowing and plowing and now gardening. Hearing: OK (no hearing aids). Vision: OK (wet MD in Left eye, getting shots Q2 months) Cognition: Seems intact today Falls: ON day of CVA, likely due to CVA. Josein: Was driving until this CVA. Palliative Performance Scale % Ambulation Activity and Evidence of Disease Self Care Intake Level of Consciousness 100 Full Normal activity, no evidence of disease Full Normal Full 90 Full Normal activity, some evidence of disease Full Normal Full 80 Full Normal activity with effort, some evidence of disease Full Normal or reduced Full 70 Reduced Unable to do normal work, some evidence of disease Full Normal or reduced Full 60 Reduced Unable to do hobby or some housework, significant disease Occasional assist necessary Normal or reduced Full or confusion 50 Mainly sit/lie Unable to do any work, extensive disease Considerable assistance required Normal or reduced Full or confusion 40 Mainly in bed Unable to do any work, extensive disease Mainly assistance Normal or reduced Full, drowsy, or confusion 30 Totally bed bound Unable to do any work, extensive disease Total care Reduced Full, drowsy, or confusion 20 Totally bed bound Unable to do any work, extensive disease Total care Minimal sips Full, drowsy, or confusion 10 Totally bed bound Unable to do any work, extensive disease Total care Mouth care only Drowsy or coma 0 - - - - Patient Score: 60 today, 70 prior to admission Spiritual history: Orthodoxy Palliative review of systems: Pain: Chroinic pain, no worse. Dyspnea: none GI symptoms:None Appetite:OK and swallowing is OK. Depression:None Anxiety: None Emotional Distress: Spiritual/Existential Distress: Labs: 11/30/2023 Cr: 1.8 (range 1.6?1.9 in the last year) Liver panel: Normal Albumin: 3.19 August 2023 CBC: Hemoglobin 11.9 (anemia on problem list but no anemia noted in the last year in [facility] chart) Advanced Care Planning: Advanced Directive: December 2021 advanced directive on file, reviewed Health Care Agent: Jesse Brothers COLST: Pt remains full Code Limitations: Assessment and Plan Assessment and plan (1) CVA (cerebral vascular accident): Status: Chronic Assessment and plan: Preliminary note: Delightful, previously independent 82 yo gentleman who just had acute emboli CVA. Looking forward to Acute Rehab at [facility]. 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 Advanced Care Planning/goals of care The most important thing to Mr. Brothers is to return to his previous level of functioning which would allow him to be independent, go on scheduled trip to [place] in 16-day cruise back to the [place]. He cannot think of any situation that he would find intolerable. He would live in a mcc if he had to. He and his have been planning to move to assisted living sometime in the next 5 years to facilitate transition to needing more help. We reviewed his 2021 advanced directive. If he had a terminal illness, he would want to transition to hospice when available. AD. -We discussed the procedure of CPaR, actual mechanical process, rate of success in restoring heartbeat, short and long-term side effects in survivors (including likely decreased physical and cognitive functioning). Questions were answered. Despite being pretty sure that he would not want CPR, he does NOT want to change anything today. He would like to remain FULL CODE FOR NOW. I want to see how this rehab goes. I definitely do not want a feeding tube. -He reiterated that he is sure he would not want a feeding tube. When I discussed with him that some people with strokes need a feeding tube for short period of time, he said he would be willing to reconsider if this issue came up. -He is requesting that we meet with him and his in the office in a month to revisit GOC and any limitations of treatment. 16 to 30 minutes spent today on Advance Care Planning. Patient and family participated voluntarily. Advance care planning may include (not limited to) explanation and discussion of advance directives, choosing and appointing healthcare agents, alternatives to various ACP tools, discussion of (and if indicated, completion of) COLST form, discussion of patient's values and overall goals for treatment, palliative and disease directive care options, ways to avoid hospital readmission including hospice discussions, care preferences should the patient's several other adverse health events.See today's palliative care note for additional information. This note was dictated using speech recognition software. Attempt was made at proofreading, but errors may be present. Please call with questions. (2) Left arm weakness: Status: Acute (3) Atrial fibrillation: Status: Chronic (4) CKD (chronic kidney disease) stage 3, GFR 30-59 ml/min: Status: Acute (5) Palliative care patient: Status: Acute (6) Advanced care planning/counseling discussion: Status: Acute PFSH All Active Problems (Updated 12/02/23 @ 12:08 by Katharina Chavis MD) Advanced care planning/counseling discussion (Acute) Palliative care patient (Acute) CKD (chronic kidney disease) stage 3, GFR 30-59 ml/min (Acute) Cerebral aneurysm (Acute) HTN (hypertension) (Chronic) CVA (cerebral vascular accident) (Chronic) Left arm weakness (Acute) Left rotator cuff tear arthropathy (Acute) Atrial fibrillation (Chronic) Bigeminal rhythm (Acute) Depression (Chronic) DVT prophylaxis (Acute) Advance directive discussed with patient (Acute) De Quervain's tenosynovitis, left (Acute) Steroid injection: 06/26/2020, 02/21/2021 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 (Acute) Laceration of left index finger (Acute) Fracture of distal phalanx of left index finger (Acute) De Quervain's tenosynovitis, right (Acute) Injection: 06/13/2021; 01/24/2021 Pes planus of left foot (Acute) Biceps tendinitis of left upper extremity (Acute) Bursitis of shoulder, left (Acute) Hyponatremia (Chronic) Anemia (Chronic) Contusion of leg, right (Acute) Medical History Rupture of left quadriceps muscle s/p repair of left quad/retinacular repair x2 DOS: 09/25/22; 09/10/22 Chronic cough CHF (congestive heart failure) Hx of sinusitis 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 Hypertension HLD (hyperlipidemia) Hyperpiesia Bilateral carotid artery stenosis Cardiomyopathy Heart palpitations None recently (05/28/22) CAD (coronary artery disease) HTN (hypertension) with goal to be determined CKD (chronic kidney disease) History of non-ST elevation myocardial infarction (NSTEMI) November 2017 Surgical History 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/22) Hx of total knee arthroplasty LEFT S/P tendon repair 09/15/22 Hx of rhinoplasty Status post left foot surgery (09/17/21) [facility] Status post laparoscopic cholecystectomy (~01/2022) History of heart artery stent Hx of cataract surgery S/P ORIF (open reduction internal fixation) fracture Right distal femur fracture History of revision of total replacement of right knee joint Right TKA - [place] (2003) Two-stage revision for infection -[place] (2008) Social History Smoking/Tobacco Use Status: Former Tobacco Use Quit Date: 08/18/91 Smoking risk assessment performed?: Yes Alcohol Intake: former Substance use type: does not use Housing: house Do you feel safe at home: Yes Do you feel safe in your relationship?: Yes Exam Narrative Exam Narrative: Pleasant elderly gentleman is reading a large print book on his iPad when I enter the room. He has pleasant affect with good eye contact. His manner is appropriate his speech is normal without dysarthria. Alert and oriented x 3. Full neurological exam not done. Results Last Vital Signs Temp 37.0 C 12/02/23 07:49 Pulse 80 12/02/23 07:49 Resp 18 12/02/23 07:49 BP 153/83 H 12/02/23 07:49 Pulse Ox 97 12/02/23 07:49 Labs 11/30/23 19:49 11/30/23 19:49 Labs: Laboratory Results - last 24 hr 12/01/23 12/02/23 18:42 07:21 Hemoglobin A1c 5.5 Triglycerides 58 Total Cholesterol 94 LDL Cholesterol, Calc 46 HDL Cholesterol 37 L
[2023-12-02 15:26] VITALS: BP 94/67; PULSE 96; RESP 18; TEMP 37.2; O2SAT 98
--- NOTE | 2023-12-02 16:24 | PT.INTREAT ---
PT Notes Visit Reasons: TIA (cardiology) Date: 12/02/23 PRECAUTIONS: Fall. Standard.? L UE/LE hemiparesis. SUBJECTIVE: pt in recliner when approached for therapy this afternoon, pt agreed to participating with therapy session, pt reports he feel much better, stronger. OBJECTIVE: ? telemetry? PAIN: cervical pain 10/25 VITALS: closely monitored by nursing? Therapeutic Activities 51706: Direct one-on-one instruction in dynamic activities to improve functional performance. ?? BED MOBILITY/TRANSFERS? Rolling L/R: not performed Supine-sit: ? not performed? Sit-supine: ? not performed ? Sit-stand: ? initially min A/ consecutive SBA? Stand-sit: ??CGA ? Bed-Chair:? ? not performed? Chair-bed: not performed Provided skilled cues and instruction on performance and technique throughout. Gait Training 75815: Direct one-on-one instruction and skilled instruction in: Employing an assistive device Modified weight-bearing status Movement sequencing Turning and movement with proper form Provided verbal cues for equipment management and technique Provided instruction in gait pattern Patient education regarding pacing and breathing techniques to maximize activity tolerance? GAIT? Assistive Device: ?? FWW? Weight bearing: WBAT Assist: ?min A ? Distance:?? 80', 40', 90' WC follow Seated rest break in between distance? Deviation: ? ?Step to gait pattern lateral lean and incomplete terminal knee extension during stance ? Neuromuscular Re-education 15044: Activities that facilitate re-education of movement balance, posture, coordination, and proprioception or kinesthetic sense, requiring skilled tactile and verbal cues Exercises/techniques: Sit to stand with 2 pillows on recliner [id number] with cue for LUE placementwith pt showing improve control after a couple a couple of reps Seated LUE PNF d1/d2 Seated AROM maximizing available arc of motion ? ASSESSMENT:?pt able to tolerate distances covered given enough rest breaks in between distances, pt cued for hand placement and getting close enough to the edge of WC seat before sitting to prevent falls. PLAN: Continue with balance training, global strengthening and general conditioning for improved safety, mobility and activity tolerance until pt is ready for DC. TREATMENT CODE/TIME: 77220o9, [id number] 30mins (2:00-2:30pm).
[2023-12-02 20:01] VITALS: BP 118/81; PULSE 88; RESP 19; TEMP 36.9; O2SAT 99
[2023-12-02] MEDS: Atorvastatin 40 MG TAB 80 MG PO (20:25)
[2023-12-02] MEDS: Metoprolol CR 25 MG TABCR PO (20:26)
[2023-12-02] MEDS: Doxepin 10 MG CAP PO (20:26)
[2023-12-03] VITALS (8 sets, daily range): BP systolic 100–143; BP diastolic 75–96; PULSE 60–85; RESP 18–19; TEMP 36–37.1; O2SAT 95–100
--- NOTE | 2023-12-03 07:30 | OTTR_ITS ---
Occupational Therapy Notes Occupational Therapy Inpatient Treatment Note Date: 12/03/23 PRECAUTIONS: Fall, Standard, Full SUBJECTIVE: Pt states that he is doing well. He notes that he is waiting to hear about his next steps and reports that he is feeling better today. OBJECTIVE: PAIN:No complaints of pain during OT session. BATHING: max (A) set up/clean up Upper Body: (I) face, (B) UE, abdomen and underarms Lower Body: (I) (B) LE DRESSING: sitting in bed Upper Extremity: (I) [facility] gown Lower Extremity: NT TOILETING: Device: Urinal Assist: (I) ASSESSMENT: Pt is tolerating ADLs well. His (L) UE seems to have better control but his lack of ROM in the shoulder is chronic. He is receptive to performance of his ADLs in the seated position. He notes that his functional mobility is improving which he will need for increased (I) in his ADL/IADL performance. PLAN: Pt states that the plan is for him to go to a stroke rehabilitation program which OT raghavitnues to recommend vs. home with HH services when medically cleared per MD. TREATMENT CODES/TIME: [id number], 30 minutes [facility] [place], [place]
[2023-12-03] MEDS: Acetaminophen 500 MG TAB 1000 MG PO (08:53)
[2023-12-03] MEDS: Cholecalciferol (Vitamin D3) 1,000 UNIT TAB 1000 UNITS PO (08:53)
[2023-12-03] MEDS: Valsartan 80 MG TAB 160 MG PO (08:54)
[2023-12-03] MEDS: Multivitamin TAB 1 TAB PO (08:54)
[2023-12-03] MEDS: Furosemide 20 MG TAB PO (08:54)
[2023-12-03] MEDS: Potassium Chloride 20 MEQ TABCR PO (08:54)
[2023-12-03] MEDS: buPROPion-CR 150 MG TABCR PO ×2 (08:54→19:33)
[2023-12-03] MEDS: Tamsulosin 0.4 MG CAPCR PO (08:54)
[2023-12-03] MEDS: Aspirin 81 MG CHEW PO (08:54)
[2023-12-03] MEDS: Fluticasone NASAL SPRAY 16 GM BTL NS ×2 (08:54→20:12)
[2023-12-03] MEDS: Normal Saline Flush 10 ML SYR IVP (08:54)
--- NOTE | 2023-12-03 14:02 | CMPROGNOTE_ITS ---
Date of service: 12/03/23 Time of Service: 14:03 Care Management Progress Note Progress Note Text Progress Note Text: S/O: Tra was sitting up in a chair visiting with his when talking with CM. Bed offer received from [facility] and also from [facility] pending bed availability, earliest would be Friday. CM reviewed Sub-Acute rehab offers and both agree on [facility] since they have the soonest availability. wants to provide the transportation and per Bre at [facility] this is allowable as long as she asks for help getting him out of the car when they arrive. A: Tra (Erwin) is an 82 year old male admitted to [facility] 12/01/23 for a TIA. P: Discharge to [facility] is planned for tomorrow. Tra will be transported by private vehicle with Jesse (approved by Bre at [facility].) Jesse plans to be here around 10am. CM is awaiting a call back from Bre to discuss the arrival time, coordination continues. SDOH(Care Management) Screening Will the Patient Participate in the Screening?: Unable to obtain Do you worry about having a steady place to live?: no In the past 12 months, have you had to go without electric, gas, oil or water in your home?: no Have you or anyone in your house had to go without enough food to eat?: no Has lack of transportation kept you from medical appointments or from doing things needed for daily living?: no Has anyone in your support network made you feel unsafe for any reason?: no
--- NOTE | 2023-12-03 14:43 | PT.INTREAT ---
PT Notes Visit Reasons: TIA (cardiology) Inpatient Physical Therapy Treatment Note [facility] Date: 12/03/23 SUBJECTIVE: Erwin continues to report feeling better and stronger. He states that he has a bed available for him today in [facility], but would rather go to [facility], which apparently has a bed available on Friday this week. His is due later this pm and they will discuss which would be better. OBJECTIVE: []? VITALS: ?monitored by nsg. Therapeutic Activities ([id number]): Direct one-on-one instruction in dynamic activities to improve functional performance. ? BED MOBILITY/TRANSFERS? pt seated in recliner? Sit-stand: S? Stand-sit: S ? Provided skilled cues and instruction on performance and technique throughout. ? GAIT? Assistive Device: FWW? Weight bearing: AT Assist:CGA ? Distance:? approx 150' in am and 250' in pm? Deviation: wc to follow with one seated rest in am. No rests in pm? Neuromuscular Re-education (33356m5): Activities that facilitate re-education of movement balance, posture, coordination, and proprioception or kinesthetic sense, requiring skilled tactile and verbal cues ? Exercises/techniques: ?balance ex at walker in am: feet together 2x10 sec. head turns up/down and R/L x5 each. HR and toe raises x10 ea, sit to stand without use of UE x5. In pm: modified tandem R/L x5 each head turns up/down and R/L. Sit to stand without use of hands x6. ASSESSMENT:? tolerated session well. Improvements noted with functional mobility, independence and coordination. He did require reminders with gait to increase stride length and widen DARREN. This does improve with verbal cues. PLAN: will continue to progress his strength and functional mobility to tolerance. TREATMENT CODE/TIME: 25 min in am 20 min in pm. [id number]
--- NOTE | 2023-12-03 14:59 | W.PM.PROGNOT ---
Date of Service Date of service: 12/03/23 Time of Service: 14:59 Assessment and Plan Assessment and plan (1) CVA (cerebral vascular accident): Status: Chronic Assessment and plan: - Patient initially presented with concerns of left upper and lower extremity weakness that had somewhat improved by present to the emergency department -While his CT did not show any acute findings, MRI/MRA of the head did show multiple small right cerebral and cerebellar emboli as well as decreased diffusion in the left basal ganglia all consistent with embolic CVA -Patient was started on high-dose statin will be continued -Started on 81 mg daily aspirin will be continued -appreciate Neuro recs: start Pradaxa 150mg BID on 12/02, continue ASA, will f/u as outpatient -CT chest abdomen pelvis without signs of malignancy (2) Atrial fibrillation: Status: Chronic Assessment and plan: - Continue metoprolol -Anticoagulation as noted above (3) HTN (hypertension): Status: Chronic Assessment and plan: - Continue home Lasix and losartan Subjective Subjective Interval history since last seen: Patient states that he is doing well this morning. He has accepted a bed at [facility] for tomorrow 12/04/2023. Exam Narrative Exam Narrative: Older gentleman sitting up in the chair no acute distress, ANO x 4, heart regular rhythm, lungs clear to auscultation bilaterally, abdomen soft, nontender, nondistended, significant left upper and lower extremity weakness as compared to right upper and lower extremity, for complete details of patient's neurologic deficits please see physical therapy note Objective Last Vital Signs Temp 97.2 F L 12/03/23 11:32 Pulse 60 12/03/23 11:32 Resp 18 12/03/23 11:32 BP 125/95 H 12/03/23 11:32 Pulse Ox 100 12/03/23 11:32 Time Spent with Patient Time Spent with Patient: >50 minutes Time was spent: preparing to see the patient(eg.review tests), obtaining and/or reviewing separately otained hiistory, ordering medications,tests, procedures, referring, communicating with other health home care companion, indepentently interpreting results, counseling the patient and care coordination
[2023-12-03] MEDS: Atorvastatin 40 MG TAB 80 MG PO (19:32)
[2023-12-03] MEDS: Doxepin 10 MG CAP PO (19:32)
[2023-12-03] MEDS: Metoprolol CR 25 MG TABCR PO (19:33)
[2023-12-04 03:28] VITALS: BP 138/95; PULSE 76; RESP 14; O2SAT 97
[2023-12-04 07:45] VITALS: BP 123/91; PULSE 78; RESP 17; TEMP 36.8; O2SAT 94
[2023-12-04] MEDS: Fluticasone NASAL SPRAY 16 GM BTL NS (07:47)
[2023-12-04] MEDS: buPROPion-CR 150 MG TABCR PO (07:49)
[2023-12-04] MEDS: Valsartan 80 MG TAB 160 MG PO (07:49)
[2023-12-04] MEDS: Furosemide 20 MG TAB PO (07:49)
[2023-12-04] MEDS: Cholecalciferol (Vitamin D3) 1,000 UNIT TAB 1000 UNITS PO (07:50)
[2023-12-04] MEDS: Potassium Chloride 20 MEQ TABCR PO (07:50)
[2023-12-04] MEDS: Aspirin 81 MG CHEW PO (07:50)
[2023-12-04] MEDS: Tamsulosin 0.4 MG CAPCR PO (07:50)
[2023-12-04] MEDS: Multivitamin TAB 1 TAB PO (07:50)
[2023-12-04] MEDS: Normal Saline Flush 10 ML SYR IVP (07:50)
--- NOTE | 2023-12-04 08:44 | PT.INTREAT ---
PT Notes Visit Reasons: TIA (cardiology) Date: 12/04/23 SUBJECTIVE: Pt reports he is looking forward to leaving this afternoon, pt reports he is going to [facility] in [facility], pt reports he is feeling stronger and is willing to participate with session on more time before leaving. OBJECTIVE: ? VITALS: monitored by nsg. Therapeutic Activities (99633o4): Direct one-on-one instruction in dynamic activities to improve functional performance. ? BED MOBILITY/TRANSFERS? pt seated in recliner? Sit-stand: S? Stand-sit: S ? Provided skilled cues and instruction on performance and technique throughout. ? GAIT? Assistive Device: FWW? Weight bearing: WBAT Assist: SBA ? Distance:? approx 150' in am ? Deviation: L genu valgus, hemiplegic gait? Neuromuscular Re-education (56506n7): Activities that facilitate re-education of movement balance, posture, coordination, and proprioception or kinesthetic sense, requiring skilled tactile and verbal cues Exercises/techniques: Walking with 1UE support using hallway rails 10'x5 Walking backwards with 1UE support using hallway rails 10'x5 Walking side ways using hallway rails 10'x5 L/R Stair negotiation training using 6 stpes 2x, 4 steps Step through gait pattern, bilateral handrail SBA. ASSESSMENT:? tolerated session well. Improvements noted with functional mobility, independence and coordination. continued reminders with gait to increase stride length and widen DARREN. pt able to improve step quality with cues. PLAN: DC to [facility] in the afternoon.. TREATMENT CODE/TIME: 46602u0 [id number] 25mins (8:18-4:43am)
--- NOTE | 2023-12-04 08:55 | DSE_ITS ---
Date of service: 12/04/23 Time of Service: 09:13 DS: Diagnosis Discharge Diagnosis (1) CVA (cerebral vascular accident): Status: Chronic Asessment and Plan: - Patient initially presented with concerns of left upper and lower extremity weakness that had somewhat improved by present to the emergency department -While his CT did not show any acute findings, MRI/MRA of the head did show multiple small right cerebral and cerebellar emboli as well as decreased diffusion in the left basal ganglia all consistent with embolic CVA -Patient was started on high-dose statin will be continued -Started on 81 mg daily aspirin will be continued -appreciate Neuro recs: start Pradaxa 150mg BID on 12/02, continue ASA, will f/u as outpatient -CT chest abdomen pelvis without signs of malignancy (2) Atrial fibrillation: Status: Chronic Asessment and Plan: - Continue metoprolol -Anticoagulation as noted above (3) HTN (hypertension): Status: Chronic Asessment and Plan: - Continue home Lasix and losartan Discharge Plan Disposition Patient Disposition: Intermediate Facility(SNF) Condition: Good Discharge Details Reason For Visit: TIA Admit Date/Time: 12/01/23 16:23 Admit Provider: Sumeet Maddox Attending Provider: Sumeet Maddox Primary Care Provider: Blanco Myles Hospital Course Hospital Course: Patient initially presented with worsening of left upper and and lower extremity weakness that was ultimately determined to be due to a CVA that was seen on MRI. Additionally, he had underlying tooth 3 different areas of distribution prompting CT chest abdomen pelvis to look for malignancy which was negative. Although patient does have baseline balance and coordination issues have been seeing PT, he was worse due to CVA, and PT ultimately determined patient would benefit from subacute rehab placement. Additionally, patient was discussed with neurology who recommended patient stop Eliquis and start Pradaxa on 12/03/2023 150 mg p.o. twice daily. Home Meds and New Rx's Prescriptions: New aspirin [Children's Aspirin] 81 mg Tablet,Chewable 81 mg PO DAILY Qty: 90 0RF dabigatran etexilate [Pradaxa] 75 mg Capsule 150 mg PO BID Qty: 180 0RF Continued tamsulosin 0.4 mg capsule 0.4 mg PO DAILY valsartan 160 mg tablet 160 mg PO DAILY potassium chloride 20 mEq tablet extended release 20 meq PO DAILY doxepin 10 mg capsule 10 mg PO DAILY PreserVision AREDS 2,148 mcg-113 mg-45 mg-17.4mg tablet 1 tab PO BID Rx Instructions: administer with AM and PM meals bupropion HCl 150 MG tablet extended release 12 hr 150 mg PO BID multivitamin 1 EACH capsule 1 tab PO DAILY atorvastatin 80 mg Tablet 80 mg PO .Q PM nitroglycerin 0.4 MG tablet, sublingual 1 tab PO PRN PRN Patient Comments: pt using when doing something strenous cholecalciferol (vitamin D3) [Vitamin D3] 25 mcg (1,000 unit) Tablet 25 mcg PO DAILY fluticasone propionate 50 mcg/actuation [place],Suspension 1 spray INTRANASAL BID Rx Instructions: administer into each nostril metoprolol succinate 25 mg tablet extended release 24 hr 25 mg PO HS Qty: 30 0RF acetaminophen 500 mg tablet 1,000 mg PO Q8H PRN Qty: 90 0RF Rx Instructions: Take two tablets up to every 8 hours as needed for pain furosemide 20 mg tablet 20 mg PO DAILY Patient Comments: TAKE 1TABLET BY MOUTH EVERY MORNING Discontinued Eliquis 2.5 mg tablet 2.5 mg PO BID hydroxyzine HCl 10 mg tablet 10 mg PO BID PRN glucosamine-chondroitin 900 mg tablet PO loratadine 10 mg Capsule 10 mg PO DAILY docusate sodium [Colace] 100 mg capsule 100 mg PO BID Qty: 30 0RF Discharge Instructions Activity:: Activity as Tolerated Equipment/Supplies:: No Equipment Needed Diet:: As Tolerated Discharge Orders Discharge Orders: Discharge Order (Routine); Ordered 12/04/23 Ordered By: Tacos Giron DS: Summary Time Spent with Patient providing and/or coordinating discharge services: Greater than 30 minutes Status at Discharge Functional status at discharge: uses cane/walker Overall status at discharge: patient is progressing back to baseline Mental Status: mental status grossly normal Speech and Movement: speech and movement normal Mood: congruent mood Affect: normal affect Quality:SDOH Health Related Social Needs: No Data to Display Exam Narrative Exam Narrative: Older gentleman sitting up in the chair no acute distress, ANO x 4, heart regular rhythm, lungs clear to auscultation bilaterally, abdomen soft, nonten adan, nondistended, significant left upper and lower extremity weakness as compared to right upper and lower extremity, for complete details of patient's neurologic deficits please see physical therapy note Psych Mental Status: mental status grossly normal Speech and Movement: speech and movement normal Mood: congruent mood Affect: normal affect DS: Data Vitals/I&O Vitals and I&O: Vital Signs Temperature 98.2 F 12/04/23 07:45 Temperature Source Tympanic 12/04/23 07:45 Pulse 78 12/04/23 07:45 Pulse Rhythm Regular 12/04/23 03:52 Pulse 81 11/30/23 21:50 Respiratory Rate 17 12/04/23 07:45 Respiratory Effort Normal 12/04/23 03:52 Respiratory Depth Normal 12/04/23 03:52 Respiratory Pattern Normal 12/04/23 03:52 Blood Pressure 123/91 H 12/04/23 07:45 Blood Pressure Mean 130 11/30/23 21:46 Blood Pressure Position Sitting 11/30/23 19:47 Pulse Oximetry 94 12/04/23 07:45 Oxygen Delivery Method Room Air 12/04/23 07:45 Oxygen Flow Rate 0 12/04/23 07:45 Pain Level 0 12/04/23 08:27 Comment 96.3F 12/04/23 03:28 Intake & Output 12/03/23 12/04/23 12/04/23 17:59 05:59 17:59 Intake Total 1260 / 1260 150 / 150 Output Total 850 / 850 500 / 1350 275 / 275 Balance 410 / 410 -500 / -90 -125 / -125 Intake: Oral 1260 / 1260 150 / 150 Output: Urine 850 / 850 500 / 1350 275 / 275 Other: Urine Color Pale Yellow Yellow Yellow Urine Appearance Clear Clear Clear Urine Odor None Comment patient had some incontinence, with urine yellow. brief changed. madi changed. pt voids small volumes in urinal, occasionally incontinent Stool Size Moderate Small Stool Characteristics Soft Formed Brown Voiding Methods Urinal Urinal Incontinent PFSH All Active Problems (Updated 12/02/23 @ 12:08 by Katharina Chavis MD) Advanced care planning/counseling discussion (Acute) Palliative care patient (Acute) CKD (chronic kidney disease) stage 3, GFR 30-59 ml/min (Acute) Cerebral aneurysm (Acute) HTN (hypertension) (Chronic) CVA (cerebral vascular accident) (Chronic) Left arm weakness (Acute) Left rotator cuff tear arthropathy (Acute) Atrial fibrillation (Chronic) Bigeminal rhythm (Acute) Depression (Chronic) DVT prophylaxis (Acute) Advance directive discussed with patient (Acute) De Quervain's tenosynovitis, left (Acute) Steroid injection: 06/26/2020, 02/21/2021 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 (Acute) Laceration of left index finger (Acute) Fracture of distal phalanx of left index finger (Acute) De Quervain's tenosynovitis, right (Acute) Injection: 06/13/2021; 01/24/2021 Pes planus of left foot (Acute) Biceps tendinitis of left upper extremity (Acute) Bursitis of shoulder, left (Acute) Hyponatremia (Chronic) Anemia (Chronic) Contusion of leg, right (Acute) Medical History Rupture of left quadriceps muscle s/p repair of left quad/retinacular repair x2 DOS: 09/25/22; 09/10/22 Chronic cough CHF (congestive heart failure) Hx of sinusitis 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 Hypertension HLD (hyperlipidemia) Hyperpiesia Bilateral carotid artery stenosis Cardiomyopathy Heart palpitations None recently (05/28/22) CAD (coronary artery disease) HTN (hypertension) with goal to be determined CKD (chronic kidney disease) History of non-ST elevation myocardial infarction (NSTEMI) November 2017 Surgical History 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/22) Hx of total knee arthroplasty LEFT S/P tendon repair 09/15/22 Hx of rhinoplasty Status post left foot surgery (09/17/21) [facility] Status post laparoscopic cholecystectomy (~01/2022) History of heart artery stent Hx of cataract surgery S/P ORIF (open reduction internal fixation) fracture Right distal femur fracture History of revision of total replacement of right knee joint Right TKA - [place] (2003) Two-stage revision for infection -[place] (2008) Social History Smoking/Tobacco Use Status: Former Tobacco Use Quit Date: 08/18/91 Smoking risk assessment performed?: Yes Alcohol Intake: former Substance use type: does not use Housing: house Do you feel safe at home: Yes Do you feel safe in your relationship?: Yes Time Spent with Patient Time Spent with Patient: <45 minutes Time was spent: preparing to see the patient(eg.review tests), obtaining and/or reviewing separately otained hiistory, ordering medications,tests, procedures, referring, communicating with other health acute care physical therapist, indepentently interpreting results, counseling the patient and care coordination
--- NOTE | 2023-12-04 12:00 | CMDISCH_ITS ---
Date of service: 12/04/23 Time of Service: 12:01 LACE Index Scoring Tool Questions: Length of Stay (in days): 3 Was the patient admitted via the E.D.?: Yes Comorbidities: Cerebrovascular Disease and Liver or Renal Disease E.D. Visits: 0 Answers: Total Score: 11 Risk of Readmission: High Risk Care Management Discharge Plan Reason for Hospitalization: Left Arm Weakness Discharge Plan: Erwin was discharged today with a scheduled admission at [facility] for acute rehab this afternoon. His transported him via private vehicle. He will follow up with his PCP and discharge plan of care. Patient/Family Education Needs: Review discharge instructions and limitations, discussion of self care needs including ask me three. Services Needed at Discharge: Correction Facility ([facility]) SDOH Health Related Social Needs: No Data to Display
== END 2023-12-04 11:11 | disposition skilled nursing facility (03) | DRG 65 ==
LOC: ER 22:14 → MS 22:16
PROVIDERS: Family Medicine; Admitting Provider General Practice; Emergency Provider Emergency Medicine; PCP Family Medicine; Visit Provider General Practice
DX: I63.441 Cerebral infarction due to embolism of right cerebellar artery; G81.94 Hemiplegia, unspecified affecting left nondominant side; I13.0 Hypertensive heart and chronic kidney disease with heart failure and stage 1 through stage 4 chronic kidney disease, or unspecified chronic kidney disease; I42.9 Cardiomyopathy, unspecified; I48.91 Unspecified atrial fibrillation; N18.30 Chronic kidney disease, stage 3 unspecified; Z79.01 Long term (current) use of anticoagulants; H53.47 Heteronymous bilateral field defects; E78.5 Hyperlipidemia, unspecified; I25.2 Old myocardial infarction; I50.9 Heart failure, unspecified; F32.A Depression, unspecified; M21.42 Flat foot [pes planus] (acquired), left foot; M75.22 Bicipital tendinitis, left shoulder; M75.52 Bursitis of left shoulder; D64.9 Anemia, unspecified; I25.10 Atherosclerotic heart disease of native coronary artery without angina pectoris; Z87.891 Personal history of nicotine dependence; W19.XXXA Unspecified fall, initial encounter; Z95.5 Presence of coronary angioplasty implant and graft; Z96.653 Presence of artificial knee joint, bilateral
CPT/HCPCS: 00123; 36415; 70544; 74177; 80048; 80061; 90471; 90715; 93005; 93306; 96374; 96375; 97112; 97162; 97166; 97530; 97535; 99222; 99232; 99291; 70450; 70551; 71045; 71260; 83036; 84484; 85025; 93010; 93880; 99233; 99238; G0378; J1920; J2405; J3490

== ENCOUNTER → 2023-12-01 13:23 | Outpatient (BNVA) | payer MEDICARE, SELFPAY | PROVIDERS: PCP Family Medicine; Referring Provider Family Medicine; Visit Provider Psychiatry & Neurology Neurology ==

== ENCOUNTER → 2023-12-30 15:11 | Outpatient (BNVA) | payer MEDICARE, SELFPAY | PROVIDERS: PCP Family Medicine; Referring Provider Family Medicine; Visit Provider Psychiatry & Neurology Neurology | DX: R06.09 Other forms of dyspnea (principal); I50.9 Heart failure, unspecified; I25.2 Old myocardial infarction | CPT/HCPCS: 99215 ==

== ENCOUNTER 2024-01-07 08:42 | Outpatient (REF) | payer MEDICARE, SELFPAY ==
[2024-01-07 16:11] LABS: Abs Immature Grans 0.02 10^3/uL (0.0-0.06); Absolute Basophil Count 0.04 10^3/uL (0.0-0.2); Absolute Eosinophil Count 0.16 10^3/uL (0.0-0.7); Absolute Lymphocyte Count 2.47 10^3/uL (1.2-3.4); Absolute Monocyte Count 0.55 10^3/uL (0.1-0.8); Absolute Neutrophil Count 2.31 10^3/uL (1.2-6.7); Basophils % 0.7 %; Eosinophils % 2.9 %; HGB 10.1 g/dL (13.5-17.5); Immature Grans % 0.4 %; Lymphocytes % 44.5 %; MCH 29.1 pg (27.0-33.0); MCHC 31.6 % (32.0-36.0); MCV 92 fL (80-95); Monocytes % 9.9 %; Neutrophils % 41.6 %; Platelet Count 111 10^3/uL (130-400); RBC 3.47 10^6/uL (4.36-5.78); RDW 14.6 % (11.8-14.1); WBC 5.55 10^3/uL (4.4-10.8)
[2024-01-07 16:26] LABS: ALT 23 U/L (16-63); AST 30 U/L (15-37); Alkaline Phosphatase 122 U/L (46-116); Anion Gap 7.7 mmol/L (3-11); BUN 25 mg/dL (7-18); Bilirubin, Total 0.6 mg/dL (0.2-1.0); CO2 23.3 mmol/L (21.0-32.0); CREATININE 1.7 mg/dL (0.70-1.30); Calcium 8.4 mg/dL (8.5-10.1); Chloride 103 mmol/L (98-107); Estimated GFR 39.26 (mL/min/1.73m2); Glucose 88 mg/dL (74-106); NT-proBNP 1766 pg/mL (<300); Sodium 134 mmol/L (136-145); Total Protein 6.3 g/dL (6.4-8.2)
== END 2024-01-07 08:43 | disposition home or self-care (01) ==
LOC: LBN 08:42
PROVIDERS: PCP Family Medicine; Visit Provider Physician Assistant Surgical
DX: R06.09 Other forms of dyspnea (principal); I50.9 Heart failure, unspecified
CPT/HCPCS: 80053; 83880; 85025

== ENCOUNTER → 2024-01-07 13:23 | Outpatient (BNVA) | payer MEDICARE, SELFPAY | PROVIDERS: PCP Family Medicine; Referring Provider Family Medicine; Visit Provider Physician Assistant Surgical | DX: J96.91 Respiratory failure, unspecified with hypoxia; I50.9 Heart failure, unspecified; D64.9 Anemia, unspecified | CPT/HCPCS: 36415; 94618; 99215 ==

== ENCOUNTER → 2024-01-09 01:07 | Outpatient (CLI) | payer MEDICARE, SELFPAY ==
--- NOTE | 2024-01-09 07:45 | DI.RAD_ITS ---
Exam(s) XR CHEST 2V PA LATERAL EXAM: XR CHEST 2V PA LATERAL CLINICAL HISTORY: ? PULMONARY EDEMA,DYSPNEA ON EXERTION,chf,i50.9,r06.09 TECHNIQUE: 2D digital imaging was performed. Two views. COMPARISON: CT CT CHEST/ABD/PEL W from 12/02/2023 FINDINGS: HEART: Normal size. Aorta: Not dilated. PULMONARY VASCULATURE: Normal. LUNGS: Clear. No evidence of pulmonary edema. No significant fibrotic changes. PLEURAL SPACE: No pleural effusion or pneumothorax. BONE:Old left rib fractures. Soft tissues: Unremarkable. IMPRESSION: No acute abnormality. DATA REPOSITORY: RADIATION DOSE DELIVERED:
== END ==
PROVIDERS: PCP Family Medicine; Visit Provider Physician Assistant Surgical
DX: R06.09 Other forms of dyspnea (principal); I50.9 Heart failure, unspecified
CPT/HCPCS: 71046

== ENCOUNTER 2024-01-19 05:17 | Outpatient (CLI) | payer MEDICARE, SELFPAY ==
[2024-01-19] MEDS: Levalbuterol HFA 15 GM INH 4 PUFF IH (16:02)
[2024-01-19] MEDS: Inhaler, Assist Device 1 EACH MC (16:03)
--- NOTE | 2024-01-20 12:33 | PFT_ITS ---
Date of service: 01/19/24 Time of Service: 14:45 Pulmonary Function Test Result Indications: Bronchitis Interpretation Spirometry: There is no airflow limitation. No bronchodilator response. Lung Volumes: There is mild restrictive lung disease Diffusion Capacity: Reduced diffusion. 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 Clinical Correlation therefore is recommended.
== END 2024-01-19 05:18 | disposition home or self-care (01) ==
LOC: RT 05:17
PROVIDERS: PCP Family Medicine; Visit Provider Psychiatry & Neurology Neurology
DX: J84.9 Interstitial pulmonary disease, unspecified (principal)
CPT/HCPCS: 94060; 94726; 94729

== ENCOUNTER → 2024-02-09 10:19 | Outpatient (BNVA) | payer MEDICARE, SELFPAY | PROVIDERS: PCP Family Medicine; Referring Provider Family Medicine; Visit Provider Physician Assistant Surgical | DX: J96.91 Respiratory failure, unspecified with hypoxia (principal); J84.9 Interstitial pulmonary disease, unspecified | CPT/HCPCS: 36415; 99214 ==

== ENCOUNTER 2024-02-09 18:44 | Outpatient (REF) | payer MEDICARE, SELFPAY ==
--- OUTSIDE RECORDS SUMMARY | 2024-02-09 18:46 | XMS_ITS ---
Author Name Unknown Address [address] [place] [address] [phone] Phone Organization Unknown Address [address] [place] [address] [phone] Phone Care Team Providers Care Cage Manager Name Role Phone CRAIG Randle Attending Unavailable ADOLFO Randle Primary Unavailable Immunization Immunization Date Status Additional Notes Code Code System COVID-19, mRNA, LNP-S, PF, 1 00 mcg/0.5mL dose or 50 mcg/0.25mL dose 09/19/2020 Completed 207 CVX COVID-19, mRNA, LNP-S, PF, 1 00 mcg/0.5mL dose or 50 mcg/0.25mL dose 10/17/2020 Completed 207 CVX Results BASIC METABOLIC PANEL (BMP) - Collect Date/Time: 09/24/2021 09:17 [facility] ID: [id number] [address] [place] [address], 5[address] LOINC: 71324-5 Test Value Unit Reference Range Code Code System Flag GLUCOSE 132 mg/dL L=70 H=116 2345-7 LOINC H BUN 29 mg/dL L=6 H=25 3094-0 LOINC H CREATININE 1.51 mg/dL L=0.67 H=1.17 2160-0 LOINC H SODIUM SERUM 128 mmol/L L=136 H=145 2951-2 LOINC L POTASSIUM SERUM 3.9 mmol/L L=3.4 H=5.2 2823-3 LOINC CHLORIDE SERUM 93 mmol/L L=96 H=110 2075-0 LOINC L CARBON DIOXIDE (CO2) 29 mmol/L L=22 H=34 2028-9 LOINC ANION GAP 6.1 mmol/L 70362-6 LOINC CALCIUM SERUM 8.5 mg/dL L=8.2 H=10.2 37306-1 [facility] AGE 80 years eGFR (non-Afr.Amer.) 45 mL/min 38292-8 LOINC eGFR (Afr-Kazakh) 54 mL/min 88102-2 [facility] BASIC METABOLIC PANEL (BMP) - Collect Date/Time: 09/23/2021 06:05 [facility] ID: [id number] [address] [place] [address], 5[address] LOINC: 64213-7 Test Value Unit Reference Range Code Code System Flag GLUCOSE 105 mg/dL L=70 H=116 2345-7 LOINC BUN 33 mg/dL L=6 H=25 3094-0 LOINC H CREATININE 1.49 mg/dL L=0.67 H=1.17 2160-0 LOINC H SODIUM SERUM 127 mmol/L L=136 H=145 2951-2 LOINC L POTASSIUM SERUM 3.5 mmol/L L=3.4 H=5.2 2823-3 LOINC CHLORIDE SERUM 90 mmol/L L=96 H=110 2075-0 LOINC L CARBON DIOXIDE (CO2) 30 mmol/L L=22 H=34 2027- LOINC ANION GAP 7.5 mmol/L 08987-3 LOINC CALCIUM SERUM 8.4 mg/dL L=8.2 H=10.2 18132-2 [facility] AGE 80 years eGFR (non-Afr.Amer.) 45 mL/min 82457-4 [facility] eGFR (Afr-Kazakh) 55 mL/min 23182-8 [facility] BASIC METABOLIC PANEL (BMP) - Collect Date/Time: 09/22/2021 06:15 [facility] ID: [id number] [address] [place] [address], 5661 LOINC: 26031-5 Test Value Unit Reference Range Code Code System Flag GLUCOSE 103 mg/dL L=70 H=116 2345-7 LOINC BUN 37 mg/dL L=6 H=25 3094-0 LOINC H CREATININE 1.74 mg/dL L=0.67 H=1.17 2160-0 LOINC H SODIUM SERUM 126 mmol/L L=136 H=145 2951-2 LOINC L POTASSIUM SERUM 3.4 mmol/L L=3.4 H=5.2 2823-3 LOINC CHLORIDE SERUM 87 mmol/L L=96 H=110 2075-0 LOINC LL CARBON DIOXIDE (CO2) 28 mmol/L L=22 H=34 2028-9 INC ANION GAP 10.9 mmol/L 69417-7 INC CALCIUM SERUM 8.2 mg/dL L=8.2 H=10.2 38292-2 INC AGE 80 years eGFR (non-Afr.Amer.) 38 mL/min 10896-4 [facility] eGFR (Afr-Kazakh) 46 mL/min 00123-6 [facility] Social History Type Status Start Date End Date Code Code Syst em Smoking History Former smoker 08/18/19953171 4671258 SNOMED CT Sex Male Vital Signs Vital Sign Value Unit [place]man Value Cullman Unit Date/Time Recent/Initial? Code Code System Body Mass Index 28.98 kg/m2 09/24/2021 12:12 Initial 36571 -5 [facility] Systolic Blood Pressure 139 mm[Hg] 09/25/2021 07:30 Most Recent 8480- 6 [facility] Diastolic Blood Pressure 80 mm[Hg] 09/25/2021 07:30 Most Recent 8462- 4 [facility] Systolic Blood Pressure 127 mm[Hg] 09/21/2021 19:58 Initial 8480- 6 [facility] Diastolic Blood Pressure 76 mm[Hg] 09/21/2021 19:58 Initial 8462- 4 [facility] Body Surface Area 2.22 m2 09/24/2021 12:12 Initial 3140- 1 [facility] Height 182.880 0 cm 72.00 in 09/24/2021 12:12 Initial 8302- 2 [facility] O2 Saturation 95 % 2021 07:30 Most Recent 05627 -5 [facility] O2 Saturation 92 % 2021 19:58 Initial 71815 -5 [facility] Fraction of Inspired Oxygen 21 % 09/21/2021 19:58 Initial 3150- 0 [facility] Pulse 65.0 /min 09/25/2021 07:30 Most Recent 8867- 4 LOINC Pulse 77.0 /min 09/21/2021 19:58 Initial 8867- 4 LOINC Respiration 16 /min 09/25/19 22 07:30 Most Recent 9279- 1 LOINC Respiration 18 /min 09/21/19 22 19:58 Initial 9279- 1 LOINC Temperature 36.4 Kalani 97.5 F 09/25/19 22 07:30 Most Recent 8310- 5 LOINC Temperature 36.7 Kalani 98.1 F 09/21/19 22 19:58 Initial 8310- 5 LOINC Weight 96.91 kg 213.65 lbs 09/24/2021 12:12 Initial 40672 -7 [facility] Medications Medication Start Date End Date Route Frequency Dose Code Code System Medication Instructions Home Meds Androderm 4MG/24HR Transdermal Patch, Extended Release 09/25/2021 Unknown TRANSDERMAL BEDTIME 1 TRANSDERMAL PATCH 7285436 RxNorm APPLY 1 TRANSDERMAL PATCH TRANSDERMAL BEDTIME Aspir 81 81MG Oral Tablet, Enteric Coated 09/25/2021 Unknown ORAL DAILY 81 MILLIGRAMS RxNorm TAKE 81 MILLIGRAMS ORAL DAILY Atorvastatin Calcium 80MG Oral Tablet 09/25/2021 Unknown ORAL BEDTIME 80 MILLIGRAMS 286702 RxNorm TAKE 80 MILLIGRAMS ORAL BEDTIME Calcium 600 MG Oral Tablet 09/25/2021 Unknown ORAL DAILY 600 MG 219669 RxNorm TAKE 600 MG ORAL DAILY Temazepam 15MG Oral Capsule 09/25/2021 Unknown ORAL BEDTIME 15 MILLIGRAMS 587044 RxNorm TAKE 15 MILLIGRAMS ORAL BEDTIME Valsartan 160MG Oral Tablet 09/25/2021 09/25/19 22 ORAL DAILY 160 MILLIGRAMS 448861 RxNorm TAKE 160 MILLIGRAMS ORAL DAILY Vitamin D 1000IU Oral Tablet 09/25/2021 Unknown ORAL DAILY 1000 INTERNATION[place] L UNITS 19930117 RxNorm TAKE 1000 INTERNATIONA L UNITS ORAL DAILY buPROPion Hydrochlorid e SR 150MG Oral Tablet, Extended Release, 12 HR 09/25/2021 Unknown ORAL TWICE A DAY 150 MILLIGRAMS 8363413 RxNorm TAKE 150 MILLIGRAMS ORAL TWICE A DAY Valsartan 160MG Oral Tablet 09/25/2021 09/26/19 22 ORAL DAILY 160 MILLIGRAMS 894195 RxNorm TAKE 160 MILLIGRAMS ORAL DAILY Valsartan 160MG Oral Tablet 09/26/2021 Unknown ORAL DAILY 160 MILLIGRAMS 765333 RxNorm TAKE 1 TABLET BY MOUTH DAILY Hospital Discharge Instructions Should you have any questions prior to discharge, please contact a member of your healthcare team. If you have left the hospital and have any questions, please contact your primary care physician. Reason For Referral No Data Found Implants Implanted DLAE Status Assigning Authority Procedure Date Lot Number Serial Number Manufacturing Date Expiration Date Distinct ID Code Brand Name Model Number Tendon/lig ament bone anchor, non-bioabs orbable 0100 8888 6700 [id number] 1726 0531 1013 4425 49 Active FDA Left foot triple arthrodesi s, deltoid ligament reconstruc tion 09/17 [id number] 9 01/15/2026 Arthre x(R) [id number] FT Bone matrix implant, synthetic, non-antimi crobial 0110 8594 7700 2140 1121 1220 1723 0430 1017 2247 8 Active FDA left foot triple arthrodesi s, poss deltoid ligament reconsttru ction 09/17 [id number] 08/06/2021 12/15/2022 AUGMEN T(R) Inject able [id number] 10 +M53 6276 1501 51/$ $526 2702 0524 9120 3F Active FDA left foot triple arthrodesi s, possible deltoid ligament reconstruc tion 09/17 [id number] 203F 05/14/2026 Cancel lous Chips 4-9.5m m 15 cc Allergies and Adverse Reactions Allergy Substance Reaction Severity Start Date Concern Status Co de Code System OXYCODONE NAUSEA (SNOMED-CT: 320253861), Nausea (SNOMED-CT: 041177240) Mild Active 7804 RxNorm Plan of Treatment PRE-OP COVID-19 TESTING 09/14/2021 MRI LOWER EXT W/O CONTRAST 07/17/2021 Plan Discharge home. Medications given this visit: Ordered & Completed Meds Table Ordered Medication Start Date/Time Dosage Route Frequency Status FUROSEMIDE TABLET: 40MG 09/21/2021 13:55 40 MG ORAL X1 completed LOPERAMIDE CAPSULE: 2MG 09/21/2021 13:55 2 MG ORAL PRN active TEMAZEPAM CAPSULE: 7.5MG 09/21/2021 14:56 15 MG ORAL BEDTIME active NF-Androderm Transdermal Patch ER 4MG/24 09/21/2021 14:57 4 MG TRANSDERMAL BEDTIME active ONDANSETRON INJ SDV: 4MG/2ML 09/21/2021 15:04 4 MG IV PUSH PRN Q6H active MILK OF MAGNESIA SUSP UD: 2400MG/30ML 09/21/2021 15:08 30 ML ORAL PRN BID active BISACODYL SUPPOSITORY: 10MG 09/21/2021 15:10 10 MG RECTALLY PRN DAILY active FLEET ENEMA 133ML 09/21/2021 15:10 133 ML RECTALLY PRN DAILY active ALUM/MAG/SIM SUSP: 2400/2400/240MG/30ML 09/21/2021 15:11 15 ML ORAL PRN Q4H active DiphenhydrAMINE CAP: 25MG 09/21/2021 15:13 25 MG ORAL PRN Q6H active ASPIRIN TABLET E.C.: 81MG 09/21/2021 15:15 81 MG ORAL DAILY WITH FOOD active HYDROmorphone TABLET: 2MG 09/21/2021 15:15 2 MG ORAL PRN Q4H active ACETAMINOPHEN TABLET: 325MG 09/21/2021 15:17 650 MG ORAL PRN Q4H active CALCIUM CARBONATE TAB CHEWABLE UD: 500MG 09/21/2021 15:19 500 MG CHEW PRN Q2H active SODIUM CHLORIDE 0.9% 250ML 09/21/2021 15:19 IV PIGGYBACK PRN active hydroCHLOROthiazide TABLET: 25MG 09/21/2021 15:18 25 MG ORAL DAILY completed SENNA/DOCUSATE TABLET: 8.6MG/50MG 09/21/2021 15:08 2 TAB ORAL BID completed VALSARTAN TABLET: 40MG 09/21/2021 15:17 80 MG ORAL DAILY completed BuPROPion SR TABLET: 150MG 09/21/2021 15:00 150 MG ORAL BID active VALSARTAN TABLET: 160MG 09/24/2021 08:00 80 MG ORAL DAILY active ATORVASTATIN TABLET: 40MG 09/21/2021 14:59 40 MG ORAL BEDTIME active Discharge Medications: Discharge Medications Androderm 4MG/24HR Transdermal Patch, Extended Release Aspir 81 81MG Oral Tablet, Enteric Coated Atorvastatin Calcium 80MG Oral Tablet Calcium 600 MG Oral Tablet Temazepam 15MG Oral Capsule Vitamin D 1000IU Oral Tablet buPROPion Hydrochloride SR 150MG Oral Tablet, Extended Release, 12 HR Valsartan 160MG Oral Tablet Encounters Encounter Diagnosis Start Date Code Code Sys tem Encounter for other orthopedic aftercare 09/21/2021 SNOMED-CT Personal Care Team Section Performer Name Performer Role Active Date Inactive Da te Discharge Summary Notes Progress Notes
--- OUTSIDE RECORDS SUMMARY | 2024-02-09 18:46 | XMS_ITS ---
Author Name Unknown Address [address] [place] [address] [phone] Phone Organization Unknown Address [address] [place] [address] [phone] Phone Care Team Providers Care Director [employer] Name Role Phone CRAIG Randle Attending Unavailable ADOLFO Randle Primary Unavailable Immunization Immunization Date Status Additional Notes Code Code System COVID-19, mRNA, LNP-S, PF, 1 00 mcg/0.5mL dose or 50 mcg/0.25mL dose 09/19/2020 Completed 207 CVX COVID-19, mRNA, LNP-S, PF, 1 00 mcg/0.5mL dose or 50 mcg/0.25mL dose 10/17/2020 Completed 207 CVX Social History Type Status Start Date End Date Code Code Syst em Smoking History Former smoker 08/18/19954140 2013360 SNOMED CT Sex Male Medications Medication Start Date End Date Route Frequency Dose Code Code System Medication Instructions Home Meds Androderm 4MG/24HR Transdermal Patch, Extended Release 09/25/2021 Unknown TRANSDERMAL BEDTIME 1 TRANSDERMAL PATCH 2440725 RxNorm APPLY 1 TRANSDERMAL PATCH TRANSDERMAL BEDTIME Aspir 81 81MG Oral Tablet, Enteric Coated 09/25/2021 Unknown ORAL DAILY 81 MILLIGRAMS RxNorm TAKE 81 MILLIGRAMS ORAL DAILY Atorvastatin Calcium 80MG Oral Tablet 09/25/2021 Unknown ORAL BEDTIME 80 MILLIGRAMS 017304 RxNorm TAKE 80 MILLIGRAMS ORAL BEDTIME Calcium 600 MG Oral Tablet 09/25/2021 Unknown ORAL DAILY 600 MG 645908 RxNorm TAKE 600 MG ORAL DAILY Temazepam 15MG Oral Capsule 09/25/2021 Unknown ORAL BEDTIME 15 MILLIGRAMS 527860 RxNorm TAKE 15 MILLIGRAMS ORAL BEDTIME Valsartan 160MG Oral Tablet 09/25/2021 09/25/19 22 ORAL DAILY 160 MILLIGRAMS 271210 RxNorm TAKE 160 MILLIGRAMS ORAL DAILY Vitamin D 1000IU Oral Tablet 09/25/2021 Unknown ORAL DAILY 1000 INTERN[address] L UNITS 692654 RxNorm TAKE 1000 INTERNATIONA L UNITS ORAL DAILY buPROPion Hydrochlorid e SR 150MG Oral Tablet, Extended Release, 12 HR 09/25/2021 Unknown ORAL TWICE A DAY 150 MILLIGRAMS 2008629 RxNorm TAKE 150 MILLIGRAMS ORAL TWICE A DAY Valsartan 160MG Oral Tablet 09/25/2021 09/26/19 22 ORAL DAILY 160 MILLIGRAMS 789162 RxNorm TAKE 160 MILLIGRAMS ORAL DAILY Valsartan 160MG Oral Tablet 09/26/2021 Unknown ORAL DAILY 160 MILLIGRAMS 221838 RxNorm TAKE 1 TABLET BY MOUTH DAILY Hospital Discharge Instructions Should you have any questions prior to discharge, please contact a member of your healthcare team. If you have left the hospital and have any questions, please contact your primary care physician. Reason For Referral No Data Found Implants Implanted DALE Status Assigning Authority Procedure Date Lot Number Serial Number Manufacturing Date Expiration Date Distinct ID Code Brand Name Model Number Tendon/lig ament bone anchor, non-bioabs orbable 0100 8888 6700 8533 1726 0531 1013 4425 49 Active [facility] Left foot triple arthrodesi s, deltoid ligament reconstruc tion 09/17 [id number] 9 01/15/2026 Arthre x(R) AR-1319 FT Bone matrix implant, synthetic, non-antimi crobial 0110 8594 7700 2140 1121 1220 1723 0430 1017 2247 8 Active [facility] left foot triple arthrodesi s, poss deltoid ligament reconsttru ction 09/17 [id number] 08/06/2021 12/15/2022 AUGMEN T(R) Inject able [id number] 10 +M53 6276 1501 51/$ $526 2702 0524 9120 3F Active [facility] left foot triple arthrodesi s, possible deltoid ligament reconstruc tion 09/17 0111669 203F 05/14/2026 Cancel lous Chips 4-9.5m m 15 cc Allergies and Adverse Reactions Allergy Substance Reaction Severity Start Date Concern Status Co de Code System OXYCODONE NAUSEA (SNOMED-CT: 861096266), Nausea (SNOMED-CT: 131178783) Mild Active 7804 RxNorm Plan of Treatment PRE-OP COVID-19 TESTING 09/14/2021 MRI LOWER EXT W/O CONTRAST 07/17/2021 Encounters Encounter Diagnosis Start Date Code Code Sys tem 07/24/2021 [id number] SNOMED-CT Personal Care Team Section Performer Name Performer Role Active Date Inactive Da te
--- OUTSIDE RECORDS SUMMARY | 2024-02-09 18:47 | XMS_ITS ---
Author Name Unknown Address [address] [place] [address] [phone] Phone Organization Unknown Address [address] [place] [address] [phone] Phone Care Team Providers Care Operator Supply Name Role Phone SEVEN Rosa Attending Unavailable ADOLFO Randle Primary Unavailable Immunization Immunization Date Status Additional Notes Code Code System COVID-19, mRNA, LNP-S, PF, 1 00 mcg/0.5mL dose or 50 mcg/0.25mL dose 09/19/2020 Completed 207 CVX COVID-19, mRNA, LNP-S, PF, 1 00 mcg/0.5mL dose or 50 mcg/0.25mL dose 10/17/2020 Completed 207 CVX Social History Type Status Start Date End Date Code Code Syst em Smoking History Former smoker 08/18/19958588 7819756 SNOMED CT Sex Male Medications Medication Start Date End Date Route Frequency Dose Code Code System Medication Instructions Home Meds Androderm 4MG/24HR Transdermal Patch, Extended Release 09/25/2021 Unknown TRANSDERMAL BEDTIME 1 TRANSDERMAL PATCH 3733200 RxNorm APPLY 1 TRANSDERMAL PATCH TRANSDERMAL BEDTIME Aspir 81 81MG Oral Tablet, Enteric Coated 09/25/2021 Unknown ORAL DAILY 81 MILLIGRAMS RxNorm TAKE 81 MILLIGRAMS ORAL DAILY Atorvastatin Calcium 80MG Oral Tablet 09/25/2021 Unknown ORAL BEDTIME 80 MILLIGRAMS 845426 RxNorm TAKE 80 MILLIGRAMS ORAL BEDTIME Calcium 600 MG Oral Tablet 09/25/2021 Unknown ORAL DAILY 600 MG 577573 RxNorm TAKE 600 MG ORAL DAILY Temazepam 15MG Oral Capsule 09/25/2021 Unknown ORAL BEDTIME 15 MILLIGRAMS 778814 RxNorm TAKE 15 MILLIGRAMS ORAL BEDTIME Vitamin D 1000IU Oral Tablet 09/25/2021 Unknown ORAL DAILY 1000 INTER[address] L UNITS 19930117 RxNorm TAKE 1000 INTERNATIONA L UNITS ORAL DAILY buPROPion Hydrochlorid e SR 150MG Oral Tablet, Extended Release, 12 HR 09/25/2021 Unknown ORAL TWICE A DAY 150 MILLIGRAMS 8642833 RxNorm TAKE 150 MILLIGRAMS ORAL TWICE A DAY Valsartan 160MG Oral Tablet 09/26/2021 Unknown ORAL DAILY 160 MILLIGRAMS 951928 RxNorm TAKE 1 TABLET BY MOUTH DAILY [...] arthrodesi s, deltoid ligament reconstruc tion 09/17 3092773 9 01/15/2026 Arthre x(R) AR-1319 FT Bone matrix implant, synthetic, non-antimi crobial 0110 8594 7700 2140 1121 1220 1723 0430 1017 2247 8 Active FDA left foot triple arthrodesi s, poss deltoid ligament reconsttru ction 09/17 4930902 08/06/2021 12/15/2022 AUGMEN T(R) Inject able [id number] 10 +M53 6276 1501 51/$ $526 2702 0524 9120 3F Active FDA left foot triple arthrodesi s, possible deltoid ligament reconstruc tion 09/17 0831144 203F 05/14/2026 Cancel lous Chips 4-9.5m m 15 cc Allergies and Adverse Reactions Allergy Substance Reaction Severity Start Date Concern Status Co de Code System OXYCODONE NAUSEA (SNOMED-CT: 139047801), Nausea (SNOMED-CT: 378207796) Mild Active 7804 RxNorm Plan of Treatment PRE-OP COVID-19 TESTING 09/14/2021 MRI LOWER EXT W/O CONTRAST 07/17/2021 Encounters Encounter Diagnosis Start Date Code Code Sys tem Removal of suture 10/02/2021 36385001 SNOMED-CT Personal Care Team Section Performer Name Performer Role Active Date Inactive Da te
--- OUTSIDE RECORDS SUMMARY | 2024-02-09 18:47 | XMS_ITS ---
Author Name Unknown Address [address] [place] [address] [phone] Phone Organization Unknown Address [address] [place] [address] [phone] Phone Care Team Providers Care Drag Seiner Name Role Phone CRAIG Randle Attending Unavailable ADOLFO Randle Primary Unavailable Immunization Immunization Date Status Additional Notes Code Code System COVID-19, mRNA, LNP-S, PF, 1 00 mcg/0.5mL dose or 50 mcg/0.25mL dose 09/19/2020 Completed 207 CVX COVID-19, mRNA, LNP-S, PF, 1 00 mcg/0.5mL dose or 50 mcg/0.25mL dose 10/17/2020 Completed 207 CVX Results [facility] - Pushpa ect Date/Time: 09/14/2021 09:51 [facility] ID: [id number] [address] [place] [address], [id number] LOINC: 71411-5 Test Value Unit Reference Range Code Code System Flag Tier- PRE-OP 59783-6 LOINC SARS COV2 RNA: NEGATIVE REFERENCE RANGE: NEGAT 30398-8 L OINC Social History Type Status Start Date End Date Code Code Syst em Smoking History Former smoker 08/18/19954110 7538940 SNOMED CT Sex Male Medications Medication Start Date End Date Route Frequency Dose Code Code System Medication Instructions Home Meds Androderm 4MG/24HR Transdermal Patch, Extended Release 09/25/2021 Unknown TRANSDERMAL BEDTIME 1 TRANSDERMAL PATCH 7646903 RxNorm APPLY 1 TRANSDERMAL PATCH TRANSDERMAL BEDTIME Aspir 81 81MG Oral Tablet, Enteric Coated 09/25/2021 Unknown ORAL DAILY 81 MILLIGRAMS RxNorm TAKE 81 MILLIGRAMS ORAL DAILY Atorvastatin Calcium 80MG Oral Tablet 09/25/2021 Unknown ORAL BEDTIME 80 MILLIGRAMS 812943 RxNorm TAKE 80 MILLIGRAMS ORAL BEDTIME Calcium 600 MG Oral Tablet 09/25/2021 Unknown ORAL DAILY 600 MG 073950 RxNorm TAKE 600 MG ORAL DAILY Temazepam 15MG Oral Capsule 09/25/2021 Unknown ORAL BEDTIME 15 MILLIGRAMS 757248 RxNorm TAKE 15 MILLIGRAMS ORAL BEDTIME Valsartan 160MG Oral Tablet 09/25/2021 09/25/19 22 ORAL DAILY 160 MILLIGRAMS 416123 RxNorm TAKE 160 MILLIGRAMS ORAL DAILY Vitamin D 1000IU Oral Tablet 09/25/2021 Unknown ORAL DAILY 1000 INTER[address] L UNITS 732451 RxNorm TAKE 1000 INTERNATIONA L UNITS ORAL DAILY buPROPion Hydrochlorid e SR 150MG Oral Tablet, Extended Release, 12 HR 09/25/2021 Unknown ORAL TWICE A DAY 150 MILLIGRAMS 4207112 RxNorm TAKE 150 MILLIGRAMS ORAL TWICE A DAY Valsartan 160MG Oral Tablet 09/25/2021 09/26/19 22 ORAL DAILY 160 MILLIGRAMS 019421 RxNorm TAKE 160 MILLIGRAMS ORAL DAILY Valsartan 160MG Oral Tablet 09/26/2021 Unknown ORAL DAILY 160 MILLIGRAMS 603577 RxNorm TAKE 1 TABLET BY MOUTH DAILY [...] orbable 0100 8888 6700 8533 1726 0531 101 4447 49 Active FDA Left foot triple arthrodesi s, deltoid ligament reconstruc tion 09/17 3531441 9 01/15/2026 Arthre x(R) AR-1319 FT Bone matrix implant, synthetic, non-antimi crobial 0110 8594 7700 2140 1121 1220 1723 0430 1017 2247 8 Active FDA left foot triple arthrodesi s, poss deltoid ligament reconsttru ction 09/17 5530953 08/06/2021 12/15/2022 AUGMEN T(R) Inject able [id number] 10 +M53 6276 1501 51/$ $526 2702 0524 9120 3F Active FDA left foot triple arthrodesi s, possible deltoid ligament reconstruc tion 09/172491 203F 05/14/2026 Cancel lous Chips 4-9.5m m 15 cc Allergies and Adverse Reactions Allergy Substance Reaction Severity Start Date Concern Status Co de Code System OXYCODONE NAUSEA (SNOMED-CT: 638288575), Nausea (SNOMED-CT: 644308093) Mild Active 7804 RxNorm Plan of Treatment PRE-OP COVID-19 TESTING 09/14/2021 MRI LOWER EXT W/O CONTRAST 07/17/2021 Encounters Encounter Diagnosis Start Date Code Code Sys tem Pre-surgery testing 09/14/2021 445606409 SNOMED-C T Personal Care Team Section Performer Name Performer Role Active Date Inactive Da te
--- OUTSIDE RECORDS SUMMARY | 2024-02-09 18:47 | XMS_ITS ---
Author Name Unknown Address [address] [place] [address] [phone] Phone Organization Unknown Address [address] [place] [address] [phone] Phone Care Team Providers Care Fisheries Technician Name Role Phone CRAIG Randle Attending Unavailable [...] Code Syst em Smoking History Former smoker 08/18/19958828 5771100 SNOMED CT Sex Male Medications Medication Start Date End Date Route Frequency Dose Code Code System Medication Instructions Home Meds Androderm 4MG/24HR Transdermal Patch, Extended Release 09/25/2021 Unknown TRANSDERMAL BEDTIME 1 TRANSDERMAL PATCH 6760544 RxNorm APPLY 1 TRANSDERMAL PATCH TRANSDERMAL BEDTIME Aspir 81 81MG Oral Tablet, Enteric Coated 09/25/2021 Unknown ORAL DAILY 81 MILLIGRAMS RxNorm TAKE 81 MILLIGRAMS ORAL DAILY Atorvastatin Calcium 80MG Oral Tablet 09/25/2021 Unknown ORAL BEDTIME 80 MILLIGRAMS 665198 RxNorm TAKE 80 MILLIGRAMS ORAL BEDTIME Calcium 600 MG Oral Tablet 09/25/2021 Unknown ORAL DAILY 600 MG 101244 RxNorm TAKE 600 MG ORAL DAILY Temazepam 15MG Oral Capsule 09/25/2021 Unknown ORAL BEDTIME 15 MILLIGRAMS 201342 RxNorm TAKE 15 MILLIGRAMS ORAL BEDTIME Valsartan 160MG Oral Tablet 09/25/2021 09/25/19 22 ORAL DAILY 160 MILLIGRAMS 678815 RxNorm TAKE 160 MILLIGRAMS ORAL DAILY Vitamin D 1000IU Oral Tablet 09/25/2021 Unknown ORAL DAILY 1000 INTER[address] L UNITS 055994 RxNorm TAKE 1000 INTERNATIONA L UNITS ORAL DAILY buPROPion Hydrochlorid e SR 150MG Oral Tablet, Extended Release, 12 HR 09/25/2021 Unknown ORAL TWICE A DAY 150 MILLIGRAMS 0086215 RxNorm TAKE 150 MILLIGRAMS ORAL TWICE A DAY Valsartan 160MG Oral Tablet 09/25/2021 09/26/19 22 ORAL DAILY 160 MILLIGRAMS 740715 RxNorm TAKE 160 MILLIGRAMS ORAL DAILY Valsartan 160MG Oral Tablet 09/26/2021 Unknown ORAL DAILY 160 MILLIGRAMS 188157 RxNorm TAKE 1 TABLET BY MOUTH DAILY [...] 8533 1726 0531 1013 4425 49 Active [facility] Left foot triple arthrodesi s, deltoid ligament reconstruc tion 09/17 3729895 9 01/15/2026 Arthre x(R) AR-1319 FT Bone matrix implant, synthetic, non-antimi crobial 0110 8594 7700 2140 1121 1220 1723 0430 1017 2247 8 Active [facility] left foot triple arthrodesi s, poss deltoid ligament reconsttru ction 09/17 7261505 08/06/2021 12/15/2022 AUGMEN T(R) Inject able [id number] 10 +M53 6276 1501 51/$ $526 2702 0524 9120 3F Active [facility] left foot triple arthrodesi s, possible deltoid ligament reconstruc tion 09/17 4250275 203F 05/14/2026 Cancel lous Chips 4-9.5m m 15 cc Allergies and Adverse Reactions Allergy Substance Reaction Severity Start Date Concern Status Co de Code System OXYCODONE NAUSEA (SNOMED-CT: 156672148), Nausea (SNOMED-CT: 028966888) Mild Active 7804 RxNorm Plan of Treatment PRE-OP COVID-19 TESTING 09/14/2021 MRI LOWER EXT W/O CONTRAST 07/17/2021 Encounters Encounter Diagnosis Start Date Code Code Sys tem 09/17/2021 [id number] SNOMED-CT Personal Care Team Section Performer Name Performer Role Active Date Inactive Da te
--- OUTSIDE RECORDS SUMMARY | 2024-02-09 18:48 | XMS_ITS ---
Author Name Unknown Address [address] [place] [address] [phone] Phone Organization Unknown Address [address] [place] [address] [phone] Phone Care Team Providers Care Server Engineer Name Role Phone CRAIG Randle Attending Unavailable ADOLFO Randle Primary Unavailable Immunization Immunization Date Status Additional Notes Code Code System COVID-19, mRNA, LNP-S, PF, 1 00 mcg/0.5mL dose or 50 mcg/0.25mL dose 09/19/2020 Completed 207 CVX COVID-19, mRNA, LNP-S, PF, 1 00 mcg/0.5mL dose or 50 mcg/0.25mL dose 10/17/2020 Completed 207 CVX Results XR ANKLE LT 3V* - Completed: 10/30/2021 15:56 LOINC: LEFT ANKLE - THREE VIEWS Compared to 04/30/21. There is now multilevel fusion hardware. There are 2 fusion screws across the subtalar joint. Fusion plates are seen across the talonavicular and calcaneocuboid joints. There is also a dorsal fusion plate across the 1st tarsometatarsal joint. Oblique screw is also seen through this level as well as through the talonavicular joint. Small inferior calcaneal spur is noted. Just above the medial malleolus there is a horizontally orientated fastener in the tibia at this level, not previously present. Talar dome appears unremarkable. No osteochondral defect at this level. IMPRESSION: Multilevel Chopart joint fusions as described above. Also fusion hardware across the 1st tarsometatarsal joint. Dictated by: IMAN DRIVER MD Transcribed by: CCG 10/31/21/12:58 D Saturday, October 30, 2021 4:30:16 PM [id number] Electronically Reviewed and Signed By: ELIAN DRIVER MD 11/02/21 10:17 Copy for: ADOLFO Randle via fax Copy for: 185 HEALTH INFORMATION MGMT XR FOOT LT 3V MIN* - Complet ed: 10/30/2021 15:56 LOINC: LEFT FOOT - THREE VIEWS Compared to images 04/30/21. MRI scan 07/17/20 was reviewed. There are no fractures nor diastasis of the Lisfranc joint. There is multilevel fusion hardware as described on the ankle films. There is also fusion hardware across the articulation between the medial cuneiform and the base of the great toe metatarsal. There is swelling in soft tissue medial to this joint on the medial aspect of the foot. No calcifications therein. No radiographic evidence of osteomyelitis. More proximally there is fusion hardware across the Chopart joints including subtalar, talonavicular and calcaneocuboid joints. Dictated by: IMAN DRIVER MD Transcribed by: [facility] [place] 10/31/2113:12 D Saturday, October 30, 2021 4:32:43 PM [id number] Electronically Reviewed and Signed By: ELIAN DRIVER MD 11/02/21 10:17 Copy for: ADOLFO Randle via fax Copy for: 185 HEALTH INFORMATION MGMT Social History Type Status Start Date End Date Code Code Syst em Smoking History Former smoker 08/18/19956925 6602068 SNOMED CT Sex Male Medications Medication Start Date End Date Route Frequency Dose Code Code System Medication Instructions Home Meds Androderm 4MG/24HR Transdermal Patch, Extended Release 09/25/2021 Unknown TRANSDERMAL BEDTIME 1 TRANSDERMAL PATCH 3387720 RxNorm APPLY 1 TRANSDERMAL PATCH TRANSDERMAL BEDTIME Aspir 81 81MG Oral Tablet, Enteric Coated 09/25/2021 Unknown ORAL DAILY 81 MILLIGRAMS RxNorm TAKE 81 MILLIGRAMS ORAL DAILY Atorvastatin Calcium 80MG Oral Tablet 09/25/2021 Unknown ORAL BEDTIME 80 MILLIGRAMS 766496 RxNorm TAKE 80 MILLIGRAMS ORAL BEDTIME Calcium 600 MG Oral Tablet 09/25/2021 Unknown ORAL DAILY 600 MG 738345 RxNorm TAKE 600 MG ORAL DAILY Temazepam 15MG Oral Capsule 09/25/2021 Unknown ORAL BEDTIME 15 MILLIGRAMS 785799 RxNorm TAKE 15 MILLIGRAMS ORAL BEDTIME Vitamin D 1000IU Oral Tablet 09/25/2021 Unknown ORAL DAILY 1000 INTERNATIONA L UNITS 19930117 RxNorm TAKE 1000 INTERNATIONA L UNITS ORAL DAILY buPROPion Hydrochlorid e SR 150MG Oral Tablet, Extended Release, 12 HR 09/25/2021 Unknown ORAL TWICE A DAY 150 MILLIGRAMS 5938467 RxNorm TAKE 150 MILLIGRAMS ORAL TWICE A DAY Valsartan 160MG Oral Tablet 09/26/2021 Unknown ORAL DAILY 160 MILLIGRAMS 000995 RxNorm TAKE 1 TABLET BY MOUTH DAILY [...] arthrodesi s, deltoid ligament reconstruc tion 09/17 9970779 9 01/15/2026 Arthre x(R) AR-1319 FT Bone matrix implant, synthetic, non-antimi crobial 0110 8594 7700 2140 1121 1220 1723 0430 1017 2247 8 Active FDA left foot triple arthrodesi s, poss deltoid ligament reconsttru ction 09/17 7132823 08/06/2021 12/15/2022 AUGMEN T(R) Inject able [id number] 10 +M53 6276 1501 51/$ $526 2702 0524 9120 3F Active FDA left foot triple arthrodesi s, possible deltoid ligament reconstruc tion 09/17 1361801 203F 05/14/2026 Cancel lous Chips 4-9.5m m 15 cc Allergies and Adverse Reactions Allergy Substance Reaction Severity Start Date Concern Status Co de Code System OXYCODONE NAUSEA (SNOMED-CT: 197002859), Nausea (SNOMED-CT: 257138352) Mild Active 7804 RxNorm Plan of Treatment PRE-OP COVID-19 TESTING 09/14/2021 MRI LOWER EXT W/O CONTRAST 07/17/2021 Encounters Encounter Diagnosis Start Date Code Code Sys tem Arthrodesis 10/30/2021 73253204 SNOMED-CT Personal Care Team Section Performer Name Performer Role Active Date Inactive Da te
--- OUTSIDE RECORDS SUMMARY | 2024-02-09 18:48 | XMS_ITS ---
Author Name Unknown Address [address] [place] [address] [phone] Phone Organization Unknown Address [address] [place] [address] [phone] Phone Care Team Providers Care Operations Professional Name Role Phone CRAIG Randle Attending Unavailable [...] Code Syst em Smoking History Former smoker 08/18/19950374 2456742 SNOMED CT Sex Male Medications Medication Start Date End Date Route Frequency Dose Code Code System Medication Instructions Home Meds Androderm 4MG/24HR Transdermal Patch, Extended Release 09/25/2021 Unknown TRANSDERMAL BEDTIME 1 TRANSDERMAL PATCH 9851409 RxNorm APPLY 1 TRANSDERMAL PATCH TRANSDERMAL BEDTIME Aspir 81 81MG Oral Tablet, Enteric Coated 09/25/2021 Unknown ORAL DAILY 81 MILLIGRAMS RxNorm TAKE 81 MILLIGRAMS ORAL DAILY Atorvastatin Calcium 80MG Oral Tablet 09/25/2021 Unknown ORAL BEDTIME 80 MILLIGRAMS 897098 RxNorm TAKE 80 MILLIGRAMS ORAL BEDTIME Calcium 600 MG Oral Tablet 09/25/2021 Unknown ORAL DAILY 600 MG 330258 RxNorm TAKE 600 MG ORAL DAILY Temazepam 15MG Oral Capsule 09/25/2021 Unknown ORAL BEDTIME 15 MILLIGRAMS 673242 RxNorm TAKE 15 MILLIGRAMS ORAL BEDTIME Valsartan 160MG Oral Tablet 09/25/2021 09/25/19 22 ORAL DAILY 160 MILLIGRAMS 013845 RxNorm TAKE 160 MILLIGRAMS ORAL DAILY Vitamin D 1000IU Oral Tablet 09/25/2021 Unknown ORAL DAILY 1000 INTERNATIONA L UNITS 530180 RxNorm TAKE 1000 INTERNATIONA L UNITS ORAL DAILY buPROPion Hydrochlorid e SR 150MG Oral Tablet, Extended Release, 12 HR 09/25/2021 Unknown ORAL TWICE A DAY 150 MILLIGRAMS 1740017 RxNorm TAKE 150 MILLIGRAMS ORAL TWICE A DAY Valsartan 160MG Oral Tablet 09/25/2021 09/26/19 22 ORAL DAILY 160 MILLIGRAMS 485948 RxNorm TAKE 160 MILLIGRAMS ORAL DAILY Valsartan 160MG Oral Tablet 09/26/2021 Unknown ORAL DAILY 160 MILLIGRAMS 973939 RxNorm TAKE 1 TABLET BY MOUTH DAILY [...] 8533 1726 0531 1013 [address] [facility] Left foot triple arthrodesi s, deltoid ligament reconstruc tion 09/17 3478490 9 01/15/2026 Arthre x(R) AR-1319 FT Bone matrix implant, synthetic, non-antimi crobial 0110 8594 7700 2140 1121 1220 1723 0430 1017 [address] [facility] left foot triple arthrodesi s, poss deltoid ligament reconsttru ction 09/17 4780513 08/06/2021 12/15/2022 AUGMEN T(R) Inject able [id number] 10 +M53 6276 1501 51/$ $526 2702 0524 [address] [facility] left foot triple arthrodesi s, possible deltoid ligament reconstruc tion 09/17 7025905 203F 05/14/2026 Cancel lous Chips 4-9.5m m 15 cc Allergies and Adverse Reactions Allergy Substance Reaction Severity Start Date Concern Status Co de Code System OXYCODONE NAUSEA (SNOMED-CT: 732167861), Nausea (SNOMED-CT: 460992110) Mild Active 7807 RxNorm Plan of Treatment PRE-OP COVID-19 TESTING 09/14/2021 MRI LOWER EXT W/O CONTRAST 07/17/2021 Encounters Encounter Diagnosis Start Date Code Code Sys tem Encounter for other orthopedic aftercare 09/21/2021 SNOMED-CT Personal Care Team Section Performer Name Performer Role Active Date Inactive Da te
--- OUTSIDE RECORDS SUMMARY | 2024-02-09 18:49 | XMS_ITS ---
Author Name Unknown Address [address] [place] [address] [phone] Phone Organization Unknown Address [address] [place] [address] [phone] Phone Care Team Providers Care Pharmacognosy Teacher Name Role Phone CRAIG Randle Attending Unavailable ADOLFO Randle Primary Unavailable Immunization Immunization Date Status Additional Notes Code Code System COVID-19, mRNA, LNP-S, PF, 1 00 mcg/0.5mL dose or 50 mcg/0.25mL dose 09/19/2020 Completed 207 CVX COVID-19, mRNA, LNP-S, PF, 1 00 mcg/0.5mL dose or 50 mcg/0.25mL dose 10/17/2020 Completed 207 CVX Results XR ANKLE LT 3V* - Completed: 06/10/2022 13:26 [facility]: [place], [place] [address] [employer] OFFICER REPORT Patient Name: SAMI MOODY MRN: Sex: : Age: [id number] M 1940 81 Account: Accession: Admit: StayType: [id number] 06/10/2022 CLINIC Ordered: Order ID: Entered Order: Ordering Provider: 06/10/2022 13:14 [id number] CLAUDIAP SALOMON SRINIVASAN Completed: Tech Completed: Resulted DTTM: 06/10/2022 13:27 MJP 06/10/2022 13:52 Study Description: XR ANKLE LT 3V* Study Reason: Pain Technique: 2D digital imaging was performed. 3 images were obtained. COMPARISON: Comparison 12/11/2021. FINDINGS: Bones: No acute fractures present. No bony destructive lesion is seen. Postsurgical changes are seen in the distal tibia and hindfoot. The hindfoot findings are described on the x-ray of the foot. Joints: No dislocation is present. There is mild narrowing of the[tibiotalar joint laterally.] Soft tissues: Mild soft tissue swelling of the ankle. Vascular calcifications are present. 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 Report Digitally Signed by Anjum Bear on 06/10/2022 01:52 PM EDT XR FOOT 3V LT* - Completed: 06/10/2022 13:26 LOINC: [facility] [place], [place] [address] [employer] OFFICER REPORT Patient Name: SAMI MOODY MRN: Sex: : Age: [id number] M 1940 81 Account: Accession: Admit: StayType: [id number] 06/10/2022 CLINIC Ordered: Order ID: Entered Order: Ordering Provider: 06/10/2022 13:14 [id number] SALOMON HARRIS Completed: Tech Completed: Resulted DTTM: 06/10/2022 13:27 P 06/10/2022 13:34 Study Description: XR FOOT 3V LT* Study Reason: Pain Technique: 2D digital imaging was performed. 3 images were obtained. COMPARISON: Comparison 12/11/2021. FINDINGS: Bones: No acute fractures present. No bony destructive lesion is seen. Hammertoe deformities of the second through fourth toes are noted. There is a plantar calcaneal spur. Joints: Postsurgical changes are again seen in the tarsal bones and the first tarsometatarsal joint. There is been an interval fracture of[an orthopedic plate and screw at the talonavicular joint. There is also question of increased fragmentation of the distal calcaneus compared to the prior examination] Soft tissues: [There is soft tissue swelling of the foot. There is loss of the normal plantar arch.][] [] IMPRESSION: 1. Interval fracture of the plate and screw fixation device on the dorsal aspect of the talonavicular joint. 2. There does appear to be loss of volume some fragmentation of the distal talus and anterior process of the calcaneus. This may be due to trauma. Infection should also be considered. 3. Postsurgical changes at the tarsometatarsal joints. 4. Chronic changes of hammertoe deformities. [] Report Digitally Signed by Anjum Bear on 06/10/2022 01:34 PM EDT Social History Type Status Start Date End Date Code Code Syst em Smoking History Former smoker 08/18/19959699 8878658 SNOMED CT Sex Male Medications Medication Start Date End Date Route Frequency Dose Code Code System Medication Instructions Home Meds Androderm 4MG/24HR Transdermal Patch, Extended Release 09/25/2021 Unknown TRANSDERMAL BEDTIME 1 TRANSDERMAL PATCH 6374349 RxNorm APPLY 1 TRANSDERMAL PATCH TRANSDERMAL BEDTIME Aspir 81 81MG Oral Tablet, Enteric Coated 09/25/2021 Unknown ORAL DAILY 81 MILLIGRAMS RxNorm TAKE 81 MILLIGRAMS ORAL DAILY Atorvastatin Calcium 80MG Oral Tablet 09/25/2021 Unknown ORAL BEDTIME 80 MILLIGRAMS 987411 RxNorm TAKE 80 MILLIGRAMS ORAL BEDTIME Calcium 600 MG Oral Tablet 09/25/2021 Unknown ORAL DAILY 600 MG 552312 RxNorm TAKE 600 MG ORAL DAILY Temazepam 15MG Oral Capsule 09/25/2021 Unknown ORAL BEDTIME 15 MILLIGRAMS 19811116 RxNorm TAKE 15 MILLIGRAMS ORAL BEDTIME Vitamin D 1000IU Oral Tablet 09/25/2021 Unknown ORAL DAILY 1000 INTERNATIONA L UNITS 19930117 RxNorm TAKE 1000 INTERNATIONA L UNITS ORAL DAILY buPROPion Hydrochlorid e SR 150MG Oral Tablet, Extended Release, 12 HR 09/25/2021 Unknown ORAL TWICE A DAY 150 MILLIGRAMS 4919912 RxNorm TAKE 150 MILLIGRAMS ORAL TWICE A DAY Valsartan 160MG Oral Tablet 09/26/2021 Unknown ORAL DAILY 160 MILLIGRAMS 800162 RxNorm TAKE 1 TABLET BY MOUTH DAILY [...] arthrodesi s, deltoid ligament reconstruc tion 09/17 7567282 9 01/15/2026 Arthre x(R) AR-1319 FT Bone matrix implant, synthetic, non-antimi crobial 0110 8594 7700 2140 1121 1220 1723 0430 1017 2247 8 Active FDA left foot triple arthrodesi s, poss deltoid ligament reconsttru ction 09/17 3625555 08/06/2021 12/15/2022 AUGMEN T(R) Inject able [id number] 10 +M53 6276 1501 51/$ $526 2702 0524 9120 3F Active FDA left foot triple arthrodesi s, possible deltoid ligament reconstruc tion 09/17 6452461 203F 05/14/2026 Cancel lous Chips 4-9.5m m 15 cc Allergies and Adverse Reactions Allergy Substance Reaction Severity Start Date Concern Status Co de Code System OXYCODONE NAUSEA (SNOMED-CT: 511807658), Nausea (SNOMED-CT: 389951205) Mild Active 7804 RxNorm Plan of Treatment PRE-OP COVID-19 TESTING 09/14/2021 MRI LOWER EXT W/O CONTRAST 07/17/2021 Encounters Encounter Diagnosis Start Date Code Code Sys tem Arthrodesis 06/10/2022 46893913 SNOMED-CT Personal Care Team Section Performer Name Performer Role Active Date Inactive Da te
--- OUTSIDE RECORDS SUMMARY | 2024-02-09 18:49 | XMS_ITS ---
Author Name Unknown Address [address] [place] [address] [phone] Phone Organization Unknown Address [address] [place] [address] [phone] Phone Care Team Providers Care Hospital Liaison Name Role Phone CRAIG Randle Attending Unavailable ADOLFO Randle Primary Unavailable Immunization Immunization Date Status Additional Notes Code Code System COVID-19, mRNA, LNP-S, PF, 1 00 mcg/0.5mL dose or 50 mcg/0.25mL dose 09/19/2020 Completed 207 CVX COVID-19, mRNA, LNP-S, PF, 1 00 mcg/0.5mL dose or 50 mcg/0.25mL dose 10/17/2020 Completed 207 CVX Results XR ANKLE LT 3V* - Completed: 03/12/2022 13:28 LOINC: LEFT ANKLE, 3 VIEWS: Compared to 12/11/2021. Again noted is fusion hardware in the hindfoot as well as in the midfoot across the first tarsometatarsal joint. Appearance is stable. Moderate sized inferior calcaneal spur again noted. No hardware loosening. No radiographic evidence of osteomyelitis. Dictated by: IMAN DRIVER MD Transcribed by: JOSE 03/13/22/11:35 [id number] Electronically Reviewed and Signed By: ELIAN DRIVER MD 03/20/22 09:05 Copy for: ADOLFO Randle via fax Copy for: 185 HEALTH INFORMATION MGMT XR FOOT 3V LT* - Completed: 03/12/2022 13:28 LOINC: LEFT FOOT, 3 VIEWS: Compared to 12/11/2021. The previously described hindfoot and midfoot fusion hardware is again noted. Findings appear stable. No radiographic evidence of hardware loosening nor osteomyelitis. Dictated by: IMAN DRIVER MD Transcribed by: ML 03/13/22/11:33 [id number] Electronically Reviewed and Signed By: ELIAN DRIVER MD 03/20/22 09:04 Copy for: ADOLFO Randle via fax Copy for: 185 HEALTH INFORMATION MGMT Social History Type Status Start Date End Date Code Code Syst em Smoking History Former smoker 08/18/19957507 1771086 SNOMED CT Sex Male Medications Medication Start Date End Date Route Frequency Dose Code Code System Medication Instructions Home Meds Androderm 4MG/24HR Transdermal Patch, Extended Release 09/25/2021 Unknown TRANSDERMAL BEDTIME 1 TRANSDERMAL PATCH 0309293 RxNorm APPLY 1 TRANSDERMAL PATCH TRANSDERMAL BEDTIME Aspir 81 81MG Oral Tablet, Enteric Coated 09/25/2021 Unknown ORAL DAILY 81 MILLIGRAMS RxNorm TAKE 81 MILLIGRAMS ORAL DAILY Atorvastatin Calcium 80MG Oral Tablet 09/25/2021 Unknown ORAL BEDTIME 80 MILLIGRAMS 547442 RxNorm TAKE 80 MILLIGRAMS ORAL BEDTIME Calcium 600 MG Oral Tablet 09/25/2021 Unknown ORAL DAILY 600 MG 523118 RxNorm TAKE 600 MG ORAL DAILY Temazepam 15MG Oral Capsule 09/25/2021 Unknown ORAL BEDTIME 15 MILLIGRAMS 354398 RxNorm TAKE 15 MILLIGRAMS ORAL BEDTIME Vitamin D 1000IU Oral Tablet 09/25/2021 Unknown ORAL DAILY 1000 INTERNATIONA L UNITS 624625 RxNorm TAKE 1000 INTERNATIONA L UNITS ORAL DAILY buPROPion Hydrochlorid e SR 150MG Oral Tablet, Extended Release, 12 HR 09/25/2021 Unknown ORAL TWICE A DAY 150 MILLIGRAMS 6669091 RxNorm TAKE 150 MILLIGRAMS ORAL TWICE A DAY Valsartan 160MG Oral Tablet 09/26/2021 Unknown ORAL DAILY 160 MILLIGRAMS 134221 RxNorm TAKE 1 TABLET BY MOUTH DAILY [...] arthrodesi s, deltoid ligament reconstruc tion 09/17 3579356 9 01/15/2026 Arthre x(R) AR-1319 FT Bone matrix implant, synthetic, non-antimi crobial 0110 8594 7700 2140 1121 1220 1723 0430 1017 2247 8 Active FDA left foot triple arthrodesi s, poss deltoid ligament reconsttru ction 09/17 4049426 08/06/2021 12/15/2022 AUGMEN T(R) Inject able [id number] 10 +M53 6276 1501 51/$ $526 2702 0524 9120 3F Active FDA left foot triple arthrodesi s, possible deltoid ligament reconstruc tion 09/17 8363630 203F 05/14/2026 Cancel lous Chips 4-9.5m m 15 cc Allergies and Adverse Reactions Allergy Substance Reaction Severity Start Date Concern Status Co de Code System OXYCODONE NAUSEA (SNOMED-CT: 863260023), Nausea (SNOMED-CT: 342601520) Mild Active 7804 RxNorm Plan of Treatment PRE-OP COVID-19 TESTING 09/14/2021 MRI LOWER EXT W/O CONTRAST 07/17/2021 Encounters Encounter Diagnosis Start Date Code Code Sys tem Breakage of internal fixation device 03/12/2022 4733 90401 SNOMED-CT Personal Care Team Section Performer Name Performer Role Active Date Inactive Da te
--- OUTSIDE RECORDS SUMMARY | 2024-02-09 18:49 | XMS_ITS ---
Author Name Unknown Address [address] [place] [address] [phone] Phone Organization Unknown Address [address] [place] [address] [phone] Phone Care Team Providers Care Regeneration Operator Name Role Phone CRAIG Randle Attending Unavailable ADOLFO Randle Primary Unavailable Immunization Immunization Date Status Additional Notes Code Code System COVID-19, mRNA, LNP-S, PF, 1 00 mcg/0.5mL dose or 50 mcg/0.25mL dose 09/19/2020 Completed 207 CVX COVID-19, mRNA, LNP-S, PF, 1 00 mcg/0.5mL dose or 50 mcg/0.25mL dose 10/17/2020 Completed 207 CVX Results XR ANKLE LT 3V* - Completed: 12/11/2021 15:44 LOINC: LEFT FOOT AND LEFT ANKLE:Thr ee views of the ankle and 3 views of the foot were obtained. The previously described hindfoot fusion and mid foot fusions are again noted, no gross interval change in alignment in comparison with prior examinations of October 30. Dictated by: STEVIE GARRISON RADIOLOGIST Transcribed by: SAV 12/12/21/08:22 D Saturday, December 11, 2021 2:11:02 PM [id number] Electronically Reviewed and Signed By: STEVIE GARRISON RADIOLOGIST 12/17/21 11:35 Copy for: ADOLFO Randle via fax Copy for: 185 HEALTH INFORMATION MGMT XR FOOT 3V LT* - Completed: 12/11/2021 15:44 LOINC: LEFT FOOT AND LEFT ANKLE:Thr ee views of the ankle and 3 views of the foot were obtained. The previously described hindfoot fusion and mid foot fusions are again noted, no gross interval change in alignment in comparison with prior examinations of October 30. Dictated by: PRICILLA GARRISON RADIOLOGIST Transcribed by: SAV 12/12/21/08:22 D Saturday, December 11, 2021 2:11:02 PM [id number] Electronically Reviewed and Signed By: STEVIE GARRISON RADIOLOGIST 12/17/21 11:29 Copy for: ADOLFO Randle via fax Copy for: 185 HEALTH INFORMATION MGMT Social History Type Status Start Date End Date Code Code Syst em Smoking History Former smoker 08/18/19956883 9[address] Sex Male Medications Medication Start Date End Date Route Frequency Dose Code Code System Medication Instructions Home Meds Androderm 4MG/24HR Transdermal Patch, Extended Release 09/25/2021 Unknown TRANSDERMAL BEDTIME 1 TRANSDERMAL PATCH 9175858 RxNorm APPLY 1 TRANSDERMAL PATCH TRANSDERMAL BEDTIME Aspir 81 81MG Oral Tablet, Enteric Coated 09/25/2021 Unknown ORAL DAILY 81 MILLIGRAMS RxNorm TAKE 81 MILLIGRAMS ORAL DAILY Atorvastatin Calcium 80MG Oral Tablet 09/25/2021 Unknown ORAL BEDTIME 80 MILLIGRAMS 985964 RxNorm TAKE 80 MILLIGRAMS ORAL BEDTIME Calcium 600 MG Oral Tablet 09/25/2021 Unknown ORAL DAILY 600 MG 514446 RxNorm TAKE 600 MG ORAL DAILY Temazepam 15MG Oral Capsule 09/25/2021 Unknown ORAL BEDTIME 15 MILLIGRAMS 817567 RxNorm TAKE 15 MILLIGRAMS ORAL BEDTIME Vitamin D 1000IU Oral Tablet 09/25/2021 Unknown ORAL DAILY 1000 INTERNATIONA L UNITS 19930117 RxNorm TAKE 1000 INTERNATIONA L UNITS ORAL DAILY buPROPion Hydrochlorid e SR 150MG Oral Tablet, Extended Release, 12 HR 09/25/2021 Unknown ORAL TWICE A DAY 150 MILLIGRAMS 9592254 RxNorm TAKE 150 MILLIGRAMS ORAL TWICE A DAY Valsartan 160MG Oral Tablet 09/26/2021 Unknown ORAL DAILY 160 MILLIGRAMS 457469 RxNorm TAKE 1 TABLET BY MOUTH DAILY [...] 0100 8888 6700 8533 1726 0531 1013 4488 49 Active FDA Left foot triple arthrodesi s, deltoid ligament reconstruc tion 09/17 4454612 9 01/15/2026 Arthre x(R) AR-1319 FT Bone matrix implant, synthetic, non-antimi crobial 0110 8594 7700 2140 1121 1220 1723 0430 1017 2247 8 Active FDA left foot triple arthrodesi s, poss deltoid ligament reconsttru ction 09/17 9716213 08/06/2021 12/15/2022 AUGMEN T(R) Inject able [id number] 10 +M53 6276 1501 51/$ $526 2702 0524 9120 3F Active FDA left foot triple arthrodesi s, possible deltoid ligament reconstruc tion 09/17 6665059 203F 05/14/2026 Cancel lous Chips 4-9.5m m 15 cc Allergies and Adverse Reactions Allergy Substance Reaction Severity Start Date Concern Status Co de Code System OXYCODONE NAUSEA (SNOMED-CT: 886757817), Nausea (SNOMED-CT: 535941680) Mild Active 7804 RxNorm Plan of Treatment PRE-OP COVID-19 TESTING 09/14/2021 MRI LOWER EXT W/O CONTRAST 07/17/2021 Encounters Encounter Diagnosis Start Date Code Code Sys tem Arthrodesis 12/11/2021 98734494 SNOMED-CT Personal Care Team Section Performer Name Performer Role Active Date Inactive Da te
--- OUTSIDE RECORDS SUMMARY | 2024-02-09 18:50 | XMS_ITS ---
Author Name Unknown Address [address] [place] [address] [phone] Phone Organization Unknown Address [address] [place] [address] [phone] Phone Care Team Providers Care Purchase Analyst Name Role Phone CRAIG LATIF MD Attending Unavailable ADOLFO GE Primary Unavailable Results MO ANKLE LT 3V - Completed: 04/30/2021 16:01 LOINC: LEFT ANKLE, 3 VIEWS: Mild spurring is seen at the anterior ankle. Joint is otherwise well maintained. The bones are intact and normally mineralized. Atherosclerosis is present. There is a plantar calcaneal spur. Dictated by: ELI CHOW M.D. RADIOLOGIST Transcribed by: JOSE 04/30/2116:24 [id number] Electronically Reviewed and Signed By: CALVIN CHOW M.D. RADIOLOGIST 05/01/21 11:01 MO FOOT LEFT 3V MIN - Comple estela: 04/30/2021 16:01 LOINC: LEFT FOOT, 3 VIEWS: No priors. There is a flat foot deformity. Hammertoe deformities at the second through fifth toes are noted. No acute fracture or dislocation. There is a plantar calcaneal spur. Mild joint space narrowing is seen at the first MTP joint. There are also mild degenerative changes seen at the TMT joints. Atherosclerosis. Dictated by: ELI CHOW M.D. RADIOLOGIST Transcribed by: JOSE 04/30/21/16:31 [id number] Electronically Reviewed and Signed By: CALVIN CHOW M.D. RADIOLOGIST 05/01/21 11:01 Social History Type Status Start Date End Date Code Code Syst em Smoking History Former smoker 08/18/19952869 7908153 SNOMED CT Sex Male Medications Medication Start Date End Date Route Frequency Dose Code Code System Medication Instructions Home Meds Androderm 4MG/24HR Transdermal Patch, Extended Release 09/25/2021 Unknown TRANSDERMAL BEDTIME 1 TRANSDERMAL PATCH 3819227 RxNorm APPLY 1 TRANSDERMAL PATCH TRANSDERMAL BEDTIME Aspir 81 81MG Oral Tablet, Enteric Coated 09/25/2021 Unknown ORAL DAILY 81 MILLIGRAMS RxNorm TAKE 81 MILLIGRAMS ORAL DAILY Atorvastatin Calcium 80MG Oral Tablet 09/25/2021 Unknown ORAL BEDTIME 80 MILLIGRAMS 757433 RxNorm TAKE 80 MILLIGRAMS ORAL BEDTIME Calcium 600 MG Oral Tablet 09/25/2021 Unknown ORAL DAILY 600 MG 215387 RxNorm TAKE 600 MG ORAL DAILY Temazepam 15MG Oral Capsule 09/25/2021 Unknown ORAL BEDTIME 15 MILLIGRAMS 232509 RxNorm TAKE 15 MILLIGRAMS ORAL BEDTIME Valsartan 160MG Oral Tablet 09/25/2021 09/25/19 22 ORAL DAILY 160 MILLIGRAMS 705040 RxNorm TAKE 160 MILLIGRAMS ORAL DAILY Vitamin D 1000IU Oral Tablet 09/25/2021 Unknown ORAL DAILY 1000 INTERNATIONA L UNITS 096516 RxNorm TAKE 1000 INTERNATIONA L UNITS ORAL DAILY buPROPion Hydrochlorid e SR 150MG Oral Tablet, Extended Release, 12 HR 09/25/2021 Unknown ORAL TWICE A DAY 150 MILLIGRAMS 4066535 RxNorm TAKE 150 MILLIGRAMS ORAL TWICE A DAY Valsartan 160MG Oral Tablet 09/25/2021 09/26/19 22 ORAL DAILY 160 MILLIGRAMS 082183 RxNorm TAKE 160 MILLIGRAMS ORAL DAILY Valsartan 160MG Oral Tablet 09/26/2021 Unknown ORAL DAILY 160 MILLIGRAMS 167810 RxNorm TAKE 1 TABLET BY MOUTH DAILY [...] arthrodesi s, deltoid ligament reconstruc tion 09/17 3433799 9 01/15/2026 Arthre x(R) AR-1319 FT Bone matrix implant, synthetic, non-antimi crobial 0110 8594 7700 2140 1121 1220 1723 0430 1017 2247 8 Active FDA left foot triple arthrodesi s, poss deltoid ligament reconsttru ction 09/17 1092120 08/06/2021 12/15/2022 AUGMEN T(R) Inject able [id number] 10 +M53 6276 1501 51/$ $526 2702 0524 9120 3F Active FDA left foot triple arthrodesi s, possible deltoid ligament reconstruc tion 09/17 5046424 203F 05/14/2026 Cancel lous Chips 4-9.5m m 15 cc Allergies and Adverse Reactions Allergy Substance Reaction Severity Start Date Concern Status Co de Code System OXYCODONE NAUSEA (SNOMED-CT: 322948147), Nausea (SNOMED-CT: 140538997) Mild Active 7804 RxNorm Plan of Treatment PRE-OP COVID-19 TESTING 09/14/2021 MRI LOWER EXT W/O CONTRAST 07/17/2021 Encounters Encounter Diagnosis Start Date Code Code Sys tem 04/30/2021 [id number] SNOMED-CT Personal Care Team Section Performer Name Performer Role Active Date Inactive Da valeri
[2024-02-10 08:44] LABS: Cyclic Citrullinated Peptide <2.5 U/mL (<5.0)
[2024-02-10 12:22] LABS: ANA Interpretation Negative (Negative)
[2024-02-11 10:59] LABS: Myeloperoxidase Ab IgG <0.2 U; Proteinase 3 Ab (PR3) <0.2 U
== END 2024-02-09 18:45 | disposition home or self-care (01) ==
LOC: LBN 18:44
PROVIDERS: PCP Family Medicine; Visit Provider Physician Assistant Surgical
DX: J84.9 Interstitial pulmonary disease, unspecified (principal)
CPT/HCPCS: 86200; 83516; 86038; 86431

== ENCOUNTER 2024-03-10 10:44 | Outpatient (REF) | payer MEDICARE, SELFPAY ==
--- OUTSIDE RECORDS SUMMARY | 2024-03-10 10:49 | XMS_ITS ---
Author Organization Unknown Address [address] [place] [address] [phone] Phone Care Team Providers Care Proof Carrier Name Role Phone CRAIG Randle Attending Unavailable ADOLFO Randle Primary Unavailable Immunization Immunization Date Status Additional Notes Code Code System COVID-19, mRNA, LNP-S, PF, 1 00 mcg/0.5mL dose or 50 mcg/0.25mL dose 09/19/2020 Completed 207 CVX COVID-19, mRNA, LNP-S, PF, 1 00 mcg/0.5mL dose or 50 mcg/0.25mL dose 10/17/2020 Completed 207 CVX Results BASIC METABOLIC PANEL (BMP) - Collect Date/Time: 09/24/2021 09:17 [facility] ID: [id number] [address] [place] [address], [address] LOINC: 67955-2 Test Value Unit Reference Range Code Code [...] H=34 2028-9 LOINC ANION GAP 6.1 mmol/L 51018-3 LOINC CALCIUM SERUM 8.5 mg/dL L=8.2 H=10.2 51398-0 LOINC AGE 80 years eGFR (non-Afr.Amer.) 45 mL/min 93005-3 LOINC eGFR (Afr-Kosovan) 54 mL/min 84789-0 [facility] BASIC METABOLIC PANEL (BMP) - Collect Date/Time: 09/23/2021 06:05 [facility] ID: [id number] [address] [place], [place], [address] LOINC: 65258-0 Test Value Unit Reference Range Code Code [...] CARBON DIOXIDE (CO2) 30 mmol/L L=22 H=34 2028-9 LOINC ANION GAP 7.5 mmol/L 53192-3 LOINC CALCIUM SERUM 8.4 mg/dL L=8.2 H=10.2 72597-7 LOINC AGE 80 years eGFR (non-Afr.Amer.) 45 mL/min 05135-0 LOINC eGFR (Afr-Kosovan) 55 mL/min 53732-4 [facility] BASIC METABOLIC PANEL (BMP) - Collect Date/Time: 09/22/2021 06:15 [facility] ID: [id number] [address] [place], [place], [address] LOINC: 54108-0 Test Value Unit Reference Range Code Code [...] DIOXIDE (CO2) 28 mmol/L L=22 H=34 2028-9 LOINC ANION GAP 10.9 mmol/L 79014-5 LOINC CALCIUM SERUM 8.2 mg/dL L=8.2 H=10.2 84329-9 LOINC AGE 80 years eGFR (non-Afr.Amer.) 38 mL/min 71054-1 LOINC eGFR (Afr-Kosovan) 46 mL/min 28933-7 [facility] Social History Type Status Start Date End Date Code Code Syst em Smoking History Former smoker 08/18/19951103 7019675 SNOMED CT Sex Male Vital Signs Vital Sign Value Unit Stafford Value Stafford Unit Date/Time Recent/Initial? Code Code System Body Mass Index 28.98 kg/m2 09/24/2021 12:12 Initial 96990 -5 [facility] Systolic Blood Pressure 139 mm[Hg] 09/25/2021 07:30 Most Recent 8480- 6 [facility] Diastolic Blood Pressure 80 mm[Hg] 09/25/2021 07:30 Most Recent 8462- 4 [facility] Systolic Blood Pressure 127 mm[Hg] 09/21/2021 19:58 Initial 8480- 6 [facility] Diastolic Blood Pressure 76 mm[Hg] 09/21/2021 19:58 Initial 8462- 4 [facility] Body Surface Area 2.22 m2 09/24/2021 12:12 Initial 3140- 1 INC Height 182.880 0 cm 72.00 in 09/24/2021 12:12 Initial 8302- 2 INC O2 Saturation 95 % 2021 07:30 Most Recent 70738 -5 [facility] O2 Saturation 92 % 2021 19:58 Initial 97919 -5 [facility] Fraction of Inspired Oxygen 21 % 09/21/2021 19:58 Initial 3150- 0 LOINC Pulse 65.0 /min 09/25/2021 07:30 Most Recent 8867- 4 [facility] Pulse 77.0 /min 09/21/2021 19:58 Initial 8867- 4 LOINC Respiration 16 /min 02/08/20 22 07:30 Most Recent 9279- 1 LOINC Respiration 18 /min 09/21/19 19:58 Initial 9279- 1 LOINC Temperature 36.4 Kalani 97.5 F 09/25/19 22 07:30 Most Recent 8310- 5 LOINC Temperature 36.7 Kalani 98.1 F 09/21/19 19:58 Initial 8310- 5 LOINC Weight 96.91 kg 213.65 lbs 09/24/2021 12:12 Initial 28993 -7 [facility] Medications Medication Start Date End Date Route Frequency Dose Code Code System Medication Instructions Home Meds Androderm 4MG/24HR Transdermal Patch, Extended Release 09/25/2021 Unknown TRANSDERMAL BEDTIME 1 TRANSDERMAL PATCH 6431835 RxNorm APPLY 1 TRANSDERMAL PATCH TRANSDERMAL BEDTIME Aspir 81 81MG Oral Tablet, Enteric Coated 09/25/2021 Unknown ORAL DAILY 81 MILLIGRAMS RxNorm TAKE 81 MILLIGRAMS ORAL DAILY Atorvastatin Calcium 80MG Oral Tablet 09/25/2021 Unknown ORAL BEDTIME 80 MILLIGRAMS 171046 RxNorm TAKE 80 MILLIGRAMS ORAL BEDTIME Calcium 600 MG Oral Tablet 09/25/2021 Unknown ORAL DAILY 600 MG 793831 RxNorm TAKE 600 MG ORAL DAILY Temazepam 15MG Oral Capsule 09/25/2021 Unknown ORAL BEDTIME 15 MILLIGRAMS 817091 RxNorm TAKE 15 MILLIGRAMS ORAL BEDTIME Valsartan 160MG Oral Tablet 09/25/2021 09/25/19 22 ORAL DAILY 160 MILLIGRAMS 456837 RxNorm TAKE 160 MILLIGRAMS ORAL DAILY Vitamin D 1000IU Oral Tablet 09/25/2021 Unknown ORAL DAILY 1000 INTERNATIONA L UNITS 19930117 RxNorm TAKE 1000 INTERNATIONA L UNITS ORAL DAILY buPROPion Hydrochlorid e SR 150MG Oral Tablet, Extended Release, 12 HR 09/25/2021 Unknown ORAL TWICE A DAY 150 MILLIGRAMS 9959341 RxNorm TAKE 150 MILLIGRAMS ORAL TWICE A DAY Valsartan 160MG Oral Tablet 09/25/2021 09/26/19 22 ORAL DAILY 160 MILLIGRAMS 787712 RxNorm TAKE 160 MILLIGRAMS ORAL DAILY Valsartan 160MG Oral Tablet 09/26/2021 Unknown ORAL DAILY 160 MILLIGRAMS 736566 RxNorm TAKE 1 TABLET BY MOUTH DAILY [...] arthrodesi s, deltoid ligament reconstruc tion 09/17 8329069 9 01/15/2026 Arthre x(R) AR-1319 FT Bone matrix implant, synthetic, non-antimi crobial 0110 8594 7700 2140 1121 1220 1723 0430 1017 2247 8 Active FDA left foot triple arthrodesi s, poss deltoid ligament reconsttru ction 09/17 9427112 08/06/2021 12/15/2022 AUGMEN T(R) Inject able [id number] 10 +M53 6276 1501 51/$ $526 2702 0524 9120 3F Active FDA left foot triple arthrodesi s, possible deltoid ligament reconstruc tion 09/17 4603147 203F 05/14/2026 Cancel lous Chips 4-9.5m m 15 cc Allergies and Adverse Reactions Allergy Substance Reaction Severity Start Date Concern Status Co de Code System OXYCODONE NAUSEA (SNOMED-CT: 775042224), Nausea (SNOMED-CT: 959690712) Mild Active 7804 RxNorm Plan of Treatment [...]
--- OUTSIDE RECORDS SUMMARY | 2024-03-10 10:49 | XMS_ITS ---
Author Organization Unknown Address [address] [place] [address] [phone] Phone Care Team Providers Care Area Manager Name Role Phone CRAIG Randle Attending [...] Code Syst em Smoking History Former smoker 08/18/19956691 8007038 SNOMED [address] Sex Male Medications Medication Start Date End Date Route Frequency Dose Code Code System Medication Instructions Home Meds Androderm 4MG/24HR Transdermal Patch, Extended Release 09/25/2021 Unknown TRANSDERMAL BEDTIME 1 TRANSDERMAL PATCH 7763225 RxNorm APPLY 1 TRANSDERMAL PATCH TRANSDERMAL BEDTIME Aspir 81 81MG Oral Tablet, Enteric Coated 09/25/2021 Unknown ORAL DAILY 81 MILLIGRAMS RxNorm TAKE 81 MILLIGRAMS ORAL DAILY Atorvastatin Calcium 80MG Oral Tablet 09/25/2021 Unknown ORAL BEDTIME 80 MILLIGRAMS 548683 RxNorm TAKE 80 MILLIGRAMS ORAL BEDTIME Calcium 600 MG Oral Tablet 09/25/2021 Unknown ORAL DAILY 600 MG 504619 RxNorm TAKE 600 MG ORAL DAILY Temazepam 15MG Oral Capsule 09/25/2021 Unknown ORAL BEDTIME 15 MILLIGRAMS 712992 RxNorm TAKE 15 MILLIGRAMS ORAL BEDTIME Valsartan 160MG Oral Tablet 09/25/2021 09/25/19 22 ORAL DAILY 160 MILLIGRAMS 783495 RxNorm TAKE 160 MILLIGRAMS ORAL DAILY Vitamin D 1000IU Oral Tablet 09/25/2021 Unknown ORAL DAILY 1000 INTERNATIONA L UNITS 397739 RxNorm TAKE 1000 INTERNATIONA L UNITS ORAL DAILY buPROPion Hydrochlorid e SR 150MG Oral Tablet, Extended Release, 12 HR 09/25/2021 Unknown ORAL TWICE A DAY 150 MILLIGRAMS 7137013 RxNorm TAKE 150 MILLIGRAMS ORAL TWICE A DAY Valsartan 160MG Oral Tablet 09/25/2021 09/26/19 22 ORAL DAILY 160 MILLIGRAMS 419332 RxNorm TAKE 160 MILLIGRAMS ORAL DAILY Valsartan 160MG Oral Tablet 09/26/2021 Unknown ORAL DAILY 160 MILLIGRAMS 541893 RxNorm TAKE 1 TABLET BY MOUTH DAILY [...] arthrodesi s, deltoid ligament reconstruc tion 09/17 1123546 9 01/15/2026 Arthre x(R) AR-1319 FT Bone matrix implant, synthetic, non-antimi crobial 0110 8594 7700 2140 1121 1220 1723 0430 1017 2247 8 Active FDA left foot triple arthrodesi s, poss deltoid ligament reconsttru ction 09/17 5789631 08/06/2021 12/15/2022 AUGMEN T(R) Inject able [id number] 10 +M53 6276 1501 51/$ $526 2702 0524 9120 3F Active FDA left foot triple arthrodesi s, possible deltoid ligament reconstruc tion 09/17 8453114 05/14/2026 Cancel lous Chips 4-9.5m m 15 cc Allergies and Adverse Reactions Allergy Substance Reaction Severity Start Date Concern Status Co de Code System OXYCODONE NAUSEA (SNOMED-CT: 380971010), Nausea (SNOMED-CT: 472547128) Mild Active 7804 RxNorm Plan of Treatment PRE-OP COVID-19 TESTING 09/14/2021 MRI LOWER EXT W/O CONTRAST 07/17/2021 Encounters Encounter Diagnosis Start Date Code Code Sys tem 07/24/2021 [id number] SNOMED-CT Personal Care Team Section Performer Name Performer Role Active Date Inactive Da te
--- OUTSIDE RECORDS SUMMARY | 2024-03-10 10:49 | XMS_ITS ---
Author Organization Unknown Address [address] [place] [address] [phone] Phone Care Team Providers Care Gyroscope Repairer Name Role Phone CRAIG Randle Attending Unavailable [...] Code Syst em Smoking History Former smoker 08/18/19954437 9428196 SNOMED CT Sex Male Medications Medication Start Date End Date Route Frequency Dose Code Code System Medication Instructions Home Meds Androderm 4MG/24HR Transdermal Patch, Extended Release 09/25/2021 Unknown TRANSDERMAL BEDTIME 1 TRANSDERMAL PATCH 0951029 RxNorm APPLY 1 TRANSDERMAL PATCH TRANSDERMAL BEDTIME Aspir 81 81MG Oral Tablet, Enteric Coated 09/25/2021 Unknown ORAL DAILY 81 MILLIGRAMS RxNorm TAKE 81 MILLIGRAMS ORAL DAILY Atorvastatin Calcium 80MG Oral Tablet 09/25/2021 Unknown ORAL BEDTIME 80 MILLIGRAMS 742019 RxNorm TAKE 80 MILLIGRAMS ORAL BEDTIME Calcium 600 MG Oral Tablet 09/25/2021 Unknown ORAL DAILY 600 MG 533111 RxNorm TAKE 600 MG ORAL DAILY Temazepam 15MG Oral Capsule 09/25/2021 Unknown ORAL BEDTIME 15 MILLIGRAMS 419949 RxNorm TAKE 15 MILLIGRAMS ORAL BEDTIME Valsartan 160MG Oral Tablet 09/25/2021 09/25/19 22 ORAL DAILY 160 MILLIGRAMS 514291 RxNorm TAKE 160 MILLIGRAMS ORAL DAILY Vitamin D 1000IU Oral Tablet 09/25/2021 Unknown ORAL DAILY 1000 INTERNATIONA L UNITS 921430 RxNorm TAKE 1000 INTERNATIONA L UNITS ORAL DAILY buPROPion Hydrochlorid e SR 150MG Oral Tablet, Extended Release, 12 HR 09/25/2021 Unknown ORAL TWICE A DAY 150 MILLIGRAMS 8904281 RxNorm TAKE 150 MILLIGRAMS ORAL TWICE A DAY Valsartan 160MG Oral Tablet 09/25/2021 09/26/19 22 ORAL DAILY 160 MILLIGRAMS 791188 RxNorm TAKE 160 MILLIGRAMS ORAL DAILY Valsartan 160MG Oral Tablet 09/26/2021 Unknown ORAL DAILY 160 MILLIGRAMS 785862 RxNorm TAKE 1 TABLET BY MOUTH DAILY [...] arthrodesi s, deltoid ligament reconstruc tion 09/17 1107197 9 01/15/2026 Arthre x(R) AR-1319 FT Bone matrix implant, synthetic, non-antimi crobial 0110 8594 7700 2140 1121 1220 1723 0430 1017 2247 8 Active FDA left foot triple arthrodesi s, poss deltoid ligament reconsttru ction 09/17 5560276 08/06/2021 12/15/2022 AUGMEN T(R) Inject able [id number] 10 +M53 6276 1501 51/$ $526 2702 0524 9120 3F Active FDA left foot triple arthrodesi s, possible deltoid ligament reconstruc tion 09/17 8997222 05/14/2026 Cancel lous Chips 4-9.5m m 15 cc Allergies and Adverse Reactions Allergy Substance Reaction Severity Start Date Concern Status Co de Code System OXYCODONE NAUSEA (SNOMED-CT: 385162148), Nausea (SNOMED-CT: 944687101) Mild Active 7804 RxNorm Plan of Treatment PRE-OP COVID-19 TESTING 09/14/2021 MRI LOWER EXT W/O CONTRAST 07/17/2021 Encounters Encounter Diagnosis Start Date Code Code Sys tem 09/17/2021 [id number] SNOMED-CT Personal Care Team Section Performer Name Performer Role Active Date Inactive Da te
--- OUTSIDE RECORDS SUMMARY | 2024-03-10 10:49 | XMS_ITS ---
Author Organization Unknown Address [address] [place] [address] [phone] Phone Care Team Providers Care Cosmetic Account Coordinator Name Role Phone CRAIG Randle Attending Unavailable ADOLFO Randle Primary Unavailable Immunization Immunization Date Status Additional Notes Code Code System COVID-19, mRNA, LNP-S, PF, 1 00 mcg/0.5mL dose or 50 mcg/0.25mL dose 09/19/2020 Completed 207 CVX COVID-19, mRNA, LNP-S, PF, 1 00 mcg/0.5mL dose or 50 mcg/0.25mL dose 10/17/2020 Completed 207 CVX [facility] Pushpa ect Date/Time: 09/14/2021 09:51 [facility] ID: [id number] [address] [place] [address], [id number] LOINC: 06738-8 Test Value Unit Reference Range Code Code System Flag Tier- PRE-OP 05660-0 LOINC SARS COV2 RNA: NEGATIVE REFERENCE RANGE: NEGAT 44442-7 L OINC Social History Type Status Start Date End Date Code Code Syst em Smoking History Former smoker 08/18/19959216 80939[address] SNOMED CT Sex Male Medications Medication Start Date End Date Route Frequency Dose Code Code System Medication Instructions Home Meds Androderm 4MG/24HR Transdermal Patch, Extended Release 09/25/2021 Unknown TRANSDERMAL BEDTIME 1 TRANSDERMAL PATCH 9323601 RxNorm APPLY 1 TRANSDERMAL PATCH TRANSDERMAL BEDTIME Aspir 81 81MG Oral Tablet, Enteric Coated 09/25/2021 Unknown ORAL DAILY 81 MILLIGRAMS RxNorm TAKE 81 MILLIGRAMS ORAL DAILY Atorvastatin Calcium 80MG Oral Tablet 09/25/2021 Unknown ORAL BEDTIME 80 MILLIGRAMS 063440 RxNorm TAKE 80 MILLIGRAMS ORAL BEDTIME Calcium 600 MG Oral Tablet 09/25/2021 Unknown ORAL DAILY 600 MG 584039 RxNorm TAKE 600 MG ORAL DAILY Temazepam 15MG Oral Capsule 09/25/2021 Unknown ORAL BEDTIME 15 MILLIGRAMS 343067 RxNorm TAKE 15 MILLIGRAMS ORAL BEDTIME Valsartan 160MG Oral Tablet 09/25/2021 09/25/19 22 ORAL DAILY 160 MILLIGRAMS 499720 RxNorm TAKE 160 MILLIGRAMS ORAL DAILY Vitamin D 1000IU Oral Tablet 09/25/2021 Unknown ORAL DAILY 1000 INTERNATIONA L UNITS 301922 RxNorm TAKE 1000 INTERNATIONA L UNITS ORAL DAILY buPROPion Hydrochlorid e SR 150MG Oral Tablet, Extended Release, 12 HR 09/25/2021 Unknown ORAL TWICE A DAY 150 MILLIGRAMS 2970683 RxNorm TAKE 150 MILLIGRAMS ORAL TWICE A DAY Valsartan 160MG Oral Tablet 09/25/2021 09/26/19 22 ORAL DAILY 160 MILLIGRAMS 597183 RxNorm TAKE 160 MILLIGRAMS ORAL DAILY Valsartan 160MG Oral Tablet 09/26/2021 Unknown ORAL DAILY 160 MILLIGRAMS 374229 RxNorm TAKE 1 TABLET BY MOUTH DAILY [...] arthrodesi s, deltoid ligament reconstruc tion 09/17 5634532 9 01/15/2026 Arthre x(R) AR-1319 FT Bone matrix implant, synthetic, non-antimi crobial 0110 8594 7700 2140 1121 1220 1723 0430 1017 2247 8 Active FDA left foot triple arthrodesi s, poss deltoid ligament reconsttru ction 09/17 8352409 08/06/2021 12/15/2022 AUGMEN T(R) Inject able [id number] 10 +M53 6276 1501 51/$ $526 5658 0572 9167 3F Active FDA left foot triple arthrodesi s, possible deltoid ligament reconstruc tion 09/172491 203F 05/14/2026 Cancel lous Chips 4-9.5m m 15 cc Allergies and Adverse Reactions Allergy Substance Reaction Severity Start Date Concern Status Co de Code System OXYCODONE NAUSEA (SNOMED-CT: 680835167), Nausea (SNOMED-CT: 452157655) Mild Active 7804 RxNorm Plan of Treatment PRE-OP COVID-19 TESTING 09/14/2021 MRI LOWER EXT W/O CONTRAST 07/17/2021 Encounters Encounter Diagnosis Start Date Code Code Sys tem Pre-surgery testing 09/14/2021 032104502 SNOMED-C T Personal Care Team Section Performer Name Performer Role Active Date Inactive Da valeri
--- OUTSIDE RECORDS SUMMARY | 2024-03-10 10:50 | XMS_ITS ---
Author Organization Unknown Address [address] [place] [address] [phone] Phone Care Team Providers Care Bulk Clerk Name Role Phone CRAIG Randle Attending Unavailable [...] Dictated by: IMAN DRIVER MD Transcribed by: MUS[place]EE 10/31/21/12:58 D Saturday, October 30, 2021 4:30:16 PM [id number] Electronically Reviewed and Signed By: EILAN DRIVER MD 11/02/21 10:17 Copy for: ADOLFO [...] Dictated by: IMAN DRIVER MD Transcribed by: MUS[place]EE 10/31/2113:12 D Saturday, October 30, 2021 4:32:43 PM [id number] Electronically Reviewed and Signed By: ELIAN DRVIER MD 11/02/21 10:17 Copy for: ADOLFO JOO Randle via fax Copy for: [facility] [employer] MG[facility] Social History Type Status Start Date End Date Code Code Syst em Smoking History Former smoker 08/18/19952020 5124754 SNOMED CT Sex Male Medications Medication Start Date End Date Route Frequency Dose Code Code System Medication Instructions Home Meds Androderm 4MG/24HR Transdermal Patch, Extended Release 09/25/2021 Unknown TRANSDERMAL BEDTIME 1 TRANSDERMAL PATCH 8661405 RxNorm APPLY 1 TRANSDERMAL PATCH TRANSDERMAL BEDTIME Aspir 81 81MG Oral Tablet, Enteric Coated 09/25/2021 Unknown ORAL DAILY 81 MILLIGRAMS RxNorm TAKE 81 MILLIGRAMS ORAL DAILY Atorvastatin Calcium 80MG Oral Tablet 09/25/2021 Unknown ORAL BEDTIME 80 MILLIGRAMS 612133 RxNorm TAKE 80 MILLIGRAMS ORAL BEDTIME Calcium 600 MG Oral Tablet 09/25/2021 Unknown ORAL DAILY 600 MG 982986 RxNorm TAKE 600 MG ORAL DAILY Temazepam 15MG Oral Capsule 09/25/2021 Unknown ORAL BEDTIME 15 MILLIGRAMS 19811116 RxNorm TAKE 15 MILLIGRAMS ORAL BEDTIME Vitamin D 1000IU Oral Tablet 09/25/2021 Unknown ORAL DAILY 1000 INTERNATIONA L UNITS 687581 RxNorm TAKE 1000 INTERNATIONA L UNITS ORAL DAILY buPROPion Hydrochlorid e SR 150MG Oral Tablet, Extended Release, 12 HR 09/25/2021 Unknown ORAL TWICE A DAY 150 MILLIGRAMS 8150066 RxNorm TAKE 150 MILLIGRAMS ORAL TWICE A DAY Valsartan 160MG Oral Tablet 09/26/2021 Unknown ORAL DAILY 160 MILLIGRAMS 823102 RxNorm TAKE 1 TABLET BY MOUTH DAILY [...] arthrodesi s, deltoid ligament reconstruc tion 09/17 2151769 9 01/15/2026 Arthre x(R) AR-1319 FT Bone matrix implant, synthetic, non-antimi crobial 0110 8594 7700 2140 1121 1220 1723 0430 1017 2247 8 Active FDA left foot triple arthrodesi s, poss deltoid ligament reconsttru ction 09/17 1215978 08/06/2021 12/15/2022 AUGMEN T(R) Inject able [id number] 10 +M53 6276 1501 51/$ $526 2702 0524 9120 3F Active FDA left foot triple arthrodesi s, possible deltoid ligament reconstruc tion 09/17 3315134 F 05/14/2026 Cancel lous Chips 4-9.5m m 15 cc Allergies and Adverse Reactions Allergy Substance Reaction Severity Start Date Concern Status Co de Code System OXYCODONE NAUSEA (SNOMED-CT: 402982297), Nausea (SNOMED-CT: 506462431) Mild Active 7804 RxNorm Plan of Treatment PRE-OP COVID-19 TESTING 09/14/2021 MRI LOWER EXT W/O CONTRAST 07/17/2021 Encounters Encounter Diagnosis Start Date Code Code Sys tem Arthrodesis 10/30/2021 [id number] [facility] Personal Care Team Section Performer Name Performer Role Active Date Inactive Da te
--- OUTSIDE RECORDS SUMMARY | 2024-03-10 10:50 | XMS_ITS ---
Author Organization Unknown Address [address] [place] [address] [phone] Phone Care Team Providers Care Asbestos Coverer Name Role Phone SEVEN Rosa Attending Unavailable [...] Code Syst em Smoking History Former smoker 08/18/19959381 7520264 SNOMED CT Sex Male Medications Medication Start Date End Date Route Frequency Dose Code Code System Medication Instructions Home Meds Androderm 4MG/24HR Transdermal Patch, Extended Release 09/25/2021 Unknown TRANSDERMAL BEDTIME 1 TRANSDERMAL PATCH 6207154 RxNorm APPLY 1 TRANSDERMAL PATCH TRANSDERMAL BEDTIME Aspir 81 81MG Oral Tablet, Enteric Coated 09/25/2021 Unknown ORAL DAILY 81 MILLIGRAMS RxNorm TAKE 81 MILLIGRAMS ORAL DAILY Atorvastatin Calcium 80MG Oral Tablet 09/25/2021 Unknown ORAL BEDTIME 80 MILLIGRAMS 589037 RxNorm TAKE 80 MILLIGRAMS ORAL BEDTIME Calcium 600 MG Oral Tablet 09/25/2021 Unknown ORAL DAILY 600 MG 878100 RxNorm TAKE 600 MG ORAL DAILY Temazepam [...] Unknown ORAL TWICE A DAY 150 MILLIGRAMS 8084566 RxNorm TAKE 150 MILLIGRAMS ORAL TWICE A DAY Valsartan 160MG Oral Tablet 09/26/2021 Unknown ORAL DAILY 160 MILLIGRAMS 069801 RxNorm TAKE 1 TABLET BY MOUTH DAILY [...] arthrodesi s, deltoid ligament reconstruc tion 09/17 [id number] 9 01/15/2026 Arthre x(R) AR-1319 FT Bone matrix implant, synthetic, non-antimi crobial 0110 8594 7700 2140 1121 1220 1723 0430 1017 2247 8 Active FDA left foot triple arthrodesi s, poss deltoid ligament reconsttru ction 09/17 [id number] 08/06/2021 12/15/2022 AUGMEN T(R) Inject able [id number] 10 +[id number] 1501 51/$ $526 2702 0524 9120 3F Active FDA left foot triple arthrodesi s, possible deltoid ligament reconstruc tion 09/17 [id number] 203F 05/14/2026 Cancel lous Chips 4-9.5m m 15 cc Allergies and Adverse Reactions Allergy Substance Reaction Severity Start Date Concern Status Co de Code System OXYCODONE NAUSEA (SNOMED-CT: 934580430), Nausea (SNOMED-CT: 705040753) Mild Active 7804 RxNorm Plan of Treatment PRE-OP COVID-19 TESTING 09/14/2021 MRI LOWER EXT W/O CONTRAST 07/17/2021 Encounters Encounter Diagnosis Start Date Code Code Sys tem Removal of suture 10/02/2021 [id number] Effector TherapeuticsOMED-CT Personal Care Team Section Performer Name Performer Role Active Date Inactive Da te
--- OUTSIDE RECORDS SUMMARY | 2024-03-10 10:51 | XMS_ITS ---
Author Organization Unknown Address [address] [place] [address] [phone] Phone Care Team Providers Care Power Shovel Mechanic Name Role Phone CRAIG Randle Attending Unavailable [...] D Saturday, December 11, 2021 2:11:02 PM [id number] Electronically Reviewed and Signed By: STEVIE GARRISON [...] D Saturday, December 11, 2021 2:11:02 PM [id number] Electronically Reviewed and Signed By: STEVIE GARRISON RADIOLOGIST 12/17/21 11:29 Copy for: ADOLFO GE Razia via fax Copy for: 185 [facility] INFORMATION MGMT Social History Type Status Start Date End Date Code Code Syst em Smoking History Former smoker 08/18/19954918 [address] Sex Male Medications Medication Start Date End Date Route Frequency Dose Code Code System Medication Instructions Home Meds Androderm 4MG/24HR Transdermal Patch, Extended Release 09/25/2021 Unknown TRANSDERMAL BEDTIME 1 TRANSDERMAL PATCH 4612940 RxNorm APPLY 1 TRANSDERMAL PATCH TRANSDERMAL BEDTIME Aspir 81 81MG Oral Tablet, Enteric Coated 09/25/2021 Unknown ORAL DAILY 81 MILLIGRAMS RxNorm TAKE 81 MILLIGRAMS ORAL DAILY Atorvastatin Calcium 80MG Oral Tablet 09/25/2021 Unknown ORAL BEDTIME 80 MILLIGRAMS 225672 RxNorm TAKE 80 MILLIGRAMS ORAL BEDTIME Calcium 600 MG Oral Tablet 09/25/2021 Unknown ORAL DAILY 600 MG 669629 RxNorm TAKE 600 MG ORAL DAILY Temazepam 15MG Oral Capsule 09/25/2021 Unknown ORAL BEDTIME 15 MILLIGRAMS 178523 RxNorm TAKE 15 MILLIGRAMS ORAL BEDTIME Vitamin D 1000IU Oral Tablet 09/25/2021 Unknown ORAL DAILY 1000 INTERNATIONA L UNITS 693175 RxNorm TAKE 1000 INTERNATIONA L UNITS ORAL DAILY buPROPion Hydrochlorid e SR 150MG Oral Tablet, Extended Release, 12 HR 09/25/2021 Unknown ORAL TWICE A DAY 150 MILLIGRAMS 8446984 RxNorm TAKE 150 MILLIGRAMS ORAL TWICE A DAY Valsartan 160MG Oral Tablet 09/26/2021 Unknown ORAL DAILY 160 MILLIGRAMS 236627 RxNorm TAKE 1 TABLET BY MOUTH DAILY [...] arthrodesi s, deltoid ligament reconstruc tion 09/17 8402918 9 01/15/2026 Arthre x(R) AR-1319 FT Bone matrix implant, synthetic, non-antimi crobial 0110 8594 7700 2140 1121 1220 1723 0430 1017 2247 8 Active FDA left foot triple arthrodesi s, poss deltoid ligament reconsttru ction 09/17 [id number] 08/06/2021 12/15/2022 AUGMEN T(R) Inject able [id number] 10 +[id number] [id number] 1501 51/$ $526 2702 0524 9120 3F Active FDA left foot triple arthrodesi s, possible deltoid ligament reconstruc tion 09/17 5607777 203F 05/14/2026 Cancel lous Chips 4-9.5m m 15 cc Allergies and Adverse Reactions Allergy Substance Reaction Severity Start Date Concern Status Co de Code System OXYCODONE NAUSEA (SNOMED-CT: 471166050), Nausea (SNOMED-CT: 549315596) Mild Active 7804 RxNorm Plan of Treatment PRE-OP COVID-19 TESTING 09/14/2021 MRI LOWER EXT W/O CONTRAST 07/17/2021 Encounters Encounter Diagnosis Start Date Code Code Sys tem Arthrodesis 12/11/2021 87034173 SNOMED-CT Personal Care Team Section Performer Name Performer Role Active Date Inactive Da valeri
--- OUTSIDE RECORDS SUMMARY | 2024-03-10 10:51 | XMS_ITS ---
Author Organization Unknown Address [address] [place] [address] [phone] Phone Care Team Providers Care Open End Spinning Operator Name Role Phone CRAIG Randle Attending [...] by: IMAN DRIVER MD Transcribed by: JOSE 03/13/2211:35 [id number] Electronically Reviewed and Signed By: ELIAN DRIVER [...] by: IMAN DRIVER MD Transcribed by: JOSE 03/13/2211:33 [id number] Electronically Reviewed and Signed By: ELIAN DRIVER MD 03/20/22 09:04 Copy for: ADOLFO Randle via fax Copy for: 185 HEALTH INFORMATION MGMT Social History Type Status Start Date End Date Code Code Syst em Smoking History Former smoker 08/18/19952179 2862819 SNOMED CT Sex Male Medications Medication Start Date End Date Route Frequency Dose Code Code System Medication Instructions Home Meds Androderm 4MG/24HR Transdermal Patch, Extended Release 09/25/2021 Unknown TRANSDERMAL BEDTIME 1 TRANSDERMAL PATCH 4293196 RxNorm APPLY 1 TRANSDERMAL PATCH TRANSDERMAL BEDTIME Aspir 81 81MG Oral Tablet, Enteric Coated 09/25/2021 Unknown ORAL DAILY 81 MILLIGRAMS RxNorm TAKE 81 MILLIGRAMS ORAL DAILY Atorvastatin Calcium 80MG Oral Tablet 09/25/2021 Unknown ORAL BEDTIME 80 MILLIGRAMS 500051 RxNorm TAKE 80 MILLIGRAMS ORAL BEDTIME Calcium 600 MG Oral Tablet 09/25/2021 Unknown ORAL DAILY 600 MG 751318 RxNorm TAKE 600 MG ORAL DAILY Temazepam [...] Unknown ORAL TWICE A DAY 150 MILLIGRAMS 1046508 RxNorm TAKE 150 MILLIGRAMS ORAL TWICE A DAY Valsartan 160MG Oral Tablet 09/26/2021 Unknown ORAL DAILY 160 MILLIGRAMS 520019 RxNorm TAKE 1 TABLET BY MOUTH DAILY [...] arthrodesi s, deltoid ligament reconstruc tion 09/17 3936995 9 01/15/2026 Arthre x(R) AR-1319 FT Bone matrix implant, synthetic, non-antimi crobial 0110 8594 7700 2140 1121 1220 1723 0430 1017 2247 8 Active FDA left foot triple arthrodesi s, poss deltoid ligament reconsttru ction 09/17 4326024 08/06/2021 12/15/2022 AUGMEN T(R) Inject able [id number] 10 +M53 6276 1501 51/$ $526 2702 0524 9120 3F Active FDA left foot triple arthrodesi s, possible deltoid ligament reconstruc tion 09/17 5416993 203F 05/14/2026 Cancel lous Chips 4-9.5m m 15 cc Allergies and Adverse Reactions Allergy Substance Reaction Severity Start Date Concern Status Co de Code System OXYCODONE NAUSEA (SNOMED-CT: 312714835), Nausea (SNOMED-CT: 520845281) Mild Active 7804 RxNorm Plan of Treatment PRE-OP COVID-19 TESTING 09/14/2021 MRI LOWER EXT W/O CONTRAST 07/17/2021 Encounters Encounter Diagnosis Start Date Code Code Sys tem Breakage of internal fixation device 03/12/2022 3317 32003 SNOMED-CT Personal Care Team Section Performer Name Performer Role Active Date Inactive Da te
--- OUTSIDE RECORDS SUMMARY | 2024-03-10 10:51 | XMS_ITS ---
Author Organization Unknown Address [address] [place] [address] [phone] Phone Care Team Providers Care Mutual Fund Sales Agent Name Role Phone CRAIG Randle Attending Unavailable [...] Code Syst em Smoking History Former smoker 08/18/19957077 9054799 SNOMED CT Sex Male Medications Medication Start Date End Date Route Frequency Dose Code Code System Medication Instructions Home Meds Androderm 4MG/24HR Transdermal Patch, Extended Release 09/25/2021 Unknown TRANSDERMAL BEDTIME 1 TRANSDERMAL PATCH 7924672 RxNorm APPLY 1 TRANSDERMAL PATCH TRANSDERMAL BEDTIME Aspir 81 81MG Oral Tablet, Enteric Coated 09/25/2021 Unknown ORAL DAILY 81 MILLIGRAMS RxNorm TAKE 81 MILLIGRAMS ORAL DAILY Atorvastatin Calcium 80MG Oral Tablet 09/25/2021 Unknown ORAL BEDTIME 80 MILLIGRAMS 430340 RxNorm TAKE 80 MILLIGRAMS ORAL BEDTIME Calcium 600 MG Oral Tablet 09/25/2021 Unknown ORAL DAILY 600 MG 042528 RxNorm TAKE 600 MG ORAL DAILY Temazepam 15MG Oral Capsule 09/25/2021 Unknown ORAL BEDTIME 15 MILLIGRAMS 616454 RxNorm TAKE 15 MILLIGRAMS ORAL BEDTIME Valsartan 160MG Oral Tablet 09/25/2021 09/25/19 22 ORAL DAILY 160 MILLIGRAMS 128238 RxNorm TAKE 160 MILLIGRAMS ORAL DAILY Vitamin D 1000IU Oral Tablet 09/25/2021 Unknown ORAL DAILY 1000 INTERNATIONA L UNITS 096457 RxNorm TAKE 1000 INTERNATIONA L UNITS ORAL DAILY buPROPion Hydrochlorid e SR 150MG Oral Tablet, Extended Release, 12 HR 09/25/2021 Unknown ORAL TWICE A DAY 150 MILLIGRAMS 9043676 RxNorm TAKE 150 MILLIGRAMS ORAL TWICE A DAY Valsartan 160MG Oral Tablet 09/25/2021 09/26/19 22 ORAL DAILY 160 MILLIGRAMS 350047 RxNorm TAKE 160 MILLIGRAMS ORAL DAILY Valsartan 160MG Oral Tablet 09/26/2021 Unknown ORAL DAILY 160 MILLIGRAMS 986668 RxNorm TAKE 1 TABLET BY MOUTH DAILY [...] arthrodesi s, deltoid ligament reconstruc tion 09/17 7292743 9 01/15/2026 Arthre x(R) AR-1319 FT Bone matrix implant, synthetic, non-antimi crobial 0110 8594 7700 2140 1121 1220 1723 0430 1017 2247 8 Active FDA left foot triple arthrodesi s, poss deltoid ligament reconsttru ction 09/17 [id number] 08/06/2021 12/15/2022 AUGMEN T(R) Inject able [id number] 10 +M53 6276 1501 51/$ $526 2702 0524 9120 3F Active FDA left foot triple arthrodesi s, possible deltoid ligament reconstruc tion 09/17 9824520 05/14/2026 Cancel lous Chips 4-9.5m m 15 cc Allergies and Adverse Reactions Allergy Substance Reaction Severity Start Date Concern Status Co de Code System OXYCODONE NAUSEA (SNOMED-CT: 992641908), Nausea (SNOMED-CT: 785475713) Mild Active 7804 RxNorm Plan of Treatment PRE-OP COVID-19 TESTING 09/14/2021 MRI LOWER EXT W/O CONTRAST 07/17/2021 Encounters Encounter Diagnosis Start Date Code Code Sys tem Encounter for other orthopedic aftercare 09/21/2021 SNOMED-CT Personal Care Team Section Performer Name Performer Role Active Date Inactive Da te
--- OUTSIDE RECORDS SUMMARY | 2024-03-10 10:52 | XMS_ITS | Encounter Summary ---
Author Organization Formerly [facility] [place] [address] Care Team Providers Care Manager Strategic Name Role Phone Blanco Myles MD Primary Care Provider [phone] Encounter Details Date Type Department Care Team (Late st Contact Info) Description 07/18/2023 Telephone Cardiology at [address] [address] Joel Link [place] [address] Social History Tobacco Use Types Packs/Day Years Used Date Smoking Tobacco: Former Cigarettes Q uit: 11/17/1999 Smokeless Tobacco: Never Alcohol Use Standard Drinks/Week Comments No 0 (1 standard drink = 0.6 oz pur e alcohol) Sex and Gender Information Value Date Recorded Sex Assigned at Not on file Gender Identity Not on file Sexual Orientation Not on file documented as of this encounter Miscellaneous Notes * Telephone Encounter - Bonnie Watson RN - 07/18/2023 8:31 AM EST Stress test was reviewed. Low cardiac risk for intermediate risk surgery. OK to HOLD Eliquis 2 days prior, restart after per surgeon's guidance. - Joel Link MD documented in this encounter Plan of Treatment Upcoming Encounters Date Type Department Care Team (Late st Contact Info) Description 04/05/2024 3:00 PM EDT Office Visit Cardiology at [address] [place] [phone] Joel Link MD [facility] [place] [address] 01/18/2025 10:15 AM EDT Office Visit Dermatology at [address] [place] [address] Mathew Fernando MD [address] [facility] [place] [address] documented as of this encounter Visit Diagnoses Not on filedocumented in this encounter Care Teams Manager Strategic Relationship Specialty Start Date End Date Blanco Myles MD [address] [place] [address] PCP - General Family Medicine 03/20/23 documented as of this encounter
--- OUTSIDE RECORDS SUMMARY | 2024-03-10 10:52 | XMS_ITS | Encounter Summary ---
Author Organization [facility] [place] [address] Care Team Providers Care Catering Sous Chef Name Role Phone Blanco Myles MD Primary Care Provider [phone] Encounter Details Date Type Department Care Team (Late st Contact Info) Description 05/06/2023 Telephone Cardiology at [address] [address] Homar Mayorga RN Social History Tobacco Use Types Packs/Day Years [...] encounter Miscellaneous Notes * Telephone Encounter - Homar Mayorga RN - 06/02/2023 2:29 PM EDT Called patient to review Cardioversion instructions. Patient reports that he has not missed or beenlate with any doses of his Eliquis for the last 4 weeks. Patient verbalized understanding of instructions. Patients will be driving him home after procedure. * Telephone Encounter - Bonnie Watson RN - 05/15/2023 2:52 PM EDT Weight is unchanged. Dr. Link advises atrial fibrillation is the cause. Erwin wants the symptoms to be fixed. Emotional support and information provided: it can't be fixed until the next step with intervention. If the DCCV can be done sooner. Erwin would appreciate it. * Telephone Encounter - Xochitl Osborn - 05/14/2023 11:44 AM EDT Patient called because he is still having trouble breathing. He would like to know if there is any medication he can take that will help it. Please call him @ [phone] * Telephone Encounter - Homar Mayorga RN - 05/06/2023 3:40 PM EDT Called patient to let them know that his Cardioversion is scheduled for Friday06/03/23. His arrival time is 8:30 am to [facility], procedure time is 10:00 (in ICU). Patient is aware he will need a delivery driver/supervisor for day of procedure. He is also aware of the importance of taking his Eliquis on time everyday. If he is late or misses dose, he will call us and let us know. We will call him on Friday06/02/23 to review specific instructions for procedure. documented in this encounter Plan of Treatment Upcoming Encounters Date Type Department Care Team (Late st Contact Info) Description 04/05/2024 3:00 PM EDT Office Visit Cardiology at [address] [place] [address] Joel Link MD [facility] [place] [address] 01/18/2025 10:15 AM EDT Office Visit Dermatology at [address] [place] [address] Mathew Fernando MD [address] [place] [address] documented as of this encounter Visit Diagnoses Not on filedocumented in this encounter Care Teams Catering Sous Chef Relationship Specialty Start Date End Date Blanco Myles MD [address] [place] [address] PCP - General Family Medicine 03/20/23 documented as of this encounter
--- OUTSIDE RECORDS SUMMARY | 2024-03-10 10:52 | XMS_ITS | Encounter Summary ---
Author Organization [facility] [place] [address] Care Team Providers Care Shuttle Operator Name Role Phone Karo Otero MD Primary Care Provider [phone] Reason for Visit * Reason Comments Annual Exam Encounter Details Date Type Department Care Team (Late st Contact Info) Description 01/14/2023 10:15 AM EDT Office Visit Dermatology at [address] [phone] Mathew Fernando MD [address] [facility] [place] [address] [place] (actinic keratosis); History of SCC (squamous cell carcinoma) of skin; History of basal cell carcinoma Social History Tobacco Use Types Packs/Day Years Used Date Smoking Tobacco: Former Cigarettes Q uit: 11/17/1999 Smokeless Tobacco: Never Alcohol Use Standard Drinks/Week Comments No 0 (1 standard drink = 0.6 oz pur e alcohol) Sex and Gender Information Value Date Recorded Sex Assigned at Not on file Gender Identity Not on file Sexual Orientation Not on file documented as of this encounter Progress Notes * Mathew Fernando MD - 01/14/2023 10:15 AM EDT Problem: 1.?? Annual skin checkup 2. ??History of extensive sun exposure living in [place] 3. ??History of BCCA's right upper back treated in [place] 4. ??History of BCCA left medial cheek excised September 2020 ?? Erwin follows up for repeat check, he has been doing well. He did have his left knee replacement done but after the successful surgery fell and tore a tendon in the muscle he is walking with a walker today. Physical examination reveals an 82-year-old gentleman has diffuse actinic damage over the forehead his temples and cheeks. He has a pearly excoriated papule on the left anterior shoulder concerning for possible BCCA. Assessment plan: Actinic keratoses scalp and hyperkeratotic actinic keratoses. 1. Begin 5-fluorouracil 5% cream apply twice daily for 1 week on then stop for 3 weeks. Repeat for total of 3 cycles. This will be called into the community pharmacy in [facility] Rule out BCC left anterior shoulder 1. After obtaining for consent site was anesthetized and removed with shave C&D 2. After curettage site measured 8 mm in diameter 3. Return to clinic in a year for repeat check. CC: MD Blanco Guzman MD documented in this encounter Plan of Treatment Upcoming Encounters Date Type Department Care Team (Late st Contact Info) Description 04/05/2024 3:00 PM EDT Office Visit Cardiology at [address] [phone] Joel Link MD [facility] [place] [address] 01/18/2025 10:15 AM EDT Office Visit Dermatology at [address] [phone] Mathew Fernando MD [address] [place] [address] [place] [address] documented as of this encounter Visit Diagnoses Diagnosis AK (actinic keratosis) Actinic keratosis History of SCC (squamous cell carcinoma) of skin Personal history of other malignant neoplasm of skin History of basal cell carcinoma Personal history of other malignant neoplasm of skin documented in this encounter Care Teams Shuttle Operator Relationship Specialty Start Date End Date Karo Otero MD [address] [place] [address] PCP - General Family Medicine 02/11/17 03/19/23 documented as of this encounter
--- OUTSIDE RECORDS SUMMARY | 2024-03-10 10:52 | XMS_ITS | Encounter Summary ---
Author Organization [facility] [place] [address] Care Team Providers Care Executive Services Administrator Name Role Phone Blanco Myles MD Primary Care Provider [phone] Encounter Details Date Type Department Care Team (Late st Contact Info) Description 07/01/2023 Telephone Cardiology at [address] [phone] Bonnie Watson, RN Social History Tobacco Use Types Packs/Day [...] Telephone Encounter - Bonnie Watson RN - 07/01/2023 1:25 PM EST [employer] 1940 [facility] Managed Medicare policy # [id number] Insurance PA phone call Supervisor Claims: Pattie Call Reference #: [id number] The CPT codes / tests will not require prior authorization because the ordering provider Dr. Vikki Link is out of network. Bonnie Watson RN 07/01/2023 documented in this encounter Plan of Treatment Upcoming Encounters Date Type Department Care Team (Late st Contact Info) Description 04/05/2024 3:00 PM EDT Office Visit Cardiology at [address] [place] [address] Joel Link MD [facility] [place] [address] 01/18/2025 10:15 AM EDT Office Visit Dermatology at [address] [place] [address] Mathew Fernando MD [address] [facility] [place] [address] documented as of this encounter Visit Diagnoses Not on filedocumented in this encounter Care Teams Executive Services Administrator Relationship Specialty Start Date End Date Blanco Myles MD [address] [place] [address] PCP - General Family Medicine 03/20/23 documented as of this encounter
--- OUTSIDE RECORDS SUMMARY | 2024-03-10 10:52 | XMS_ITS | Clinical Summary ---
Author Organization [facility] Address [facility] [place] [address] Care Team Providers Care Supervisor Veneer Name Role Phone Blanco Myles MD Primary Care Provider [phone] Allergies Active Allergy Reactions Criticality Noted Date Comments Oxycodone Nausea Only Medium 02/11/2017 Other reaction(s): Nausea Pollen Extracts 11/18/2017 Medications Medication Sig Dispensed Refills Start Date End Date Status buPROPion (WELLBUTRIN SR OR ZYBAN) 150 mg Tablet Sustained Release 12 hr take 1 tablet by mouth twice a day 0 12/23/2016 Active multivitamin (THERAGRAN) Tablet Take 1 tablet by mouth daily. Active cholecalciferol, Vitamin D3, 50 mcg (2,000 unit) Capsule Take 1 capsule by mouth daily. Active polyethylene glycol (MIRALAX) 17 gram Powder in Packet Take 17 g by mouth daily as needed. 01/14/2018 Active atorvastatin (Lipitor) 80 mg Tablet Take 80 mg by mouth every evening. 05/31/2020 Active fluticasone propionate (FLONASE) 50 mcg/actuation [place], Suspension 2 sprays by Each Nare route daily as needed. 03/11/2020 Active nitroGLYcerin (Nitrostat) 0.4 mg Tablet, SublingualIndications :Coronary artery disease involving [place] coronary artery of [place] heart without angina pectoris Place 1 tablet under the tongue every 5 minutes as needed for Chest pain (x 3). 25 tablet 01/23/2022 Active metoprolol succinate XL (Toprol-XL) 25 mg ER 24 hr tablet Take 25 mg by mouth daily. Active furosemide (Lasix) 20 mg tablet Take 20 mg by mouth daily. 11/29/2022 Active tamsulosin (Flomax) 0.4 mg capsule Take 0.4 mg by mouth nightly. 12/17/2022 Active fluorouraciL (EFUDEX) 5 % Cream Apply twice daily for 1 week on then stop for 3 weeks. Repeat for total of 3 cycles 40 g 1 01/14/2023 Active doxepin (SINEquan) 10 mg capsule Take 20 mg by mouth nightly. 06/13/2023 Active benzonatate (Tessalon) 200 mg capsule Active dabigatran (Pradaxa) 150 mg capsule Take 1 capsule by mouth 2 times daily. 01/05/2024 Active valsartan (Diovan) 160 mg tablet Take 1 tablet by mouth Daily at Noon. 12/12/2023 Active Active Problems Problem Noted Date Diagnosed Date PAF (paroxysmal atrial fibrillation) 09/10/2022 Overview (07/17/2023): 08/2022: Dx tay-operative knee surgery. 05/2023: DCCV (1 @ 150). Acutely successful 06/2023 Holter (palpitations): nsr, normal rate. Occasional PVC (1.4%). no significant arrhythmia. No symptoms Assessment & Plan (06/27/2023 8:24 AM EST): He remains in sinus per EKG today. Will obtain another Holter monitor for daily palpitations. If these are confirmed to be an arrhythmia of some sort, would consider anti-arrhythmic therapy. - Strategy: rate. Continue toprol 25 - OAC: eliquis 2.5 (age, creatinine > 1.5) - Reversible Causes: none identified - Dx; Holter Monitor 48 hour Assessment & Plan (03/20/2023 10:25 PM EDT): For the near daily tachypalpitations, will obtain Holter monitoring. His afib seems rate controlled - Strategy: rate. Continue toprol 25 - OAC: eliquis 2.5 (age, creatinine > 1.5) - Reversible Causes: none identified - Dx; Holter Monitor 48 hour Assessment & Plan (12/04/2022 1:53 PM EDT): No clear symptoms attributable. He had increase in dyspnea since May surgery, and on presentation in 06/2022 with dyspnea/volume overload he was noted to be in sinus rhythm. Since he is most likely asymptomatic of the arrhythmia and it is easily rate controlled, rhythm control strategy is deferred at this time - Strategy: rate. 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 Reassuring that it dissipates with activity, suggesting a non- ischemic nidus Assessment & Plan (01/17/2021 10:58 AM EDT): Has not had recurrence since stopping the Sectral for exertional fatigue. Continue expectant management. Assessment & Plan (07/20/2020 9:12 AM EST): Discussed that the Sectral is for symptoms from the PVCs, and that the medication seems to have had a good effect. However, especially in the setting of blunted range demonstrated on Holter, cannot r/o the possibility that it is indeed causing chronotropic incompetence and decreased exercise tolerance. Thus, he will hold the medication and monitor symptoms. It will likely be a difficult fulcrum of fatigue from negative chronotropes versus symptoms of PVCs, but since his fatigue is at this time more bothersome than the historic palpitations, will move forward with holding sectral Assessment & Plan (10/18/2019 9:27 PM EST): Without ventricular ectopy and without symptoms of bradycardia. Continue current regimen. We reviewed that with any arrhythmia that we are treating medically, it is not uncommon to have breakthroughs of said arrhyhtmia. It does sound like this dose of sectral is both controlling the VE as well as permitting HR increase with exertion - continue sectral 200 bid Assessment & Plan (06/07/2019 12:57 PM EDT): Patient does indeed seem symptomatic of this. I think it was reasonable to trial the increase in metoprolol; however, patient had recurrence of previous intolerance to the dosage. Will thus attempt a beta latesha with RADHA properties - D/C metoprolol - start acebutolol 200mg BID Cardiomyopathy, ischemic 04/06/2019 Overview (06/19/2023): 11/2017: Preserved EF (64%), with lateral HK. 04/2019: EF 64%, no wmas 06/2022: EF 45-50%, no regional wmas. Mod MR 04/2023 TTE: normalized LV function. Unremarkable study aside from persistent rate controlled afib Assessment & Plan (06/27/2023 8:23 AM EST): No failure by exam - Diuresis: lasix 20 qd - Cardioprotection: valsartan, toprol - Devices: none indicated Assessment & Plan (03/20/2023 10:25 PM EDT): Mildly intravascular hypervolemic. Advised increasing lasix to BID. Will also repeat echocardiogram, as new significant dyspnea emerged since last echo, and he is at risk for adverse remodling - Diuresis: increase lasix to 20 bid - Cardioprotection: valsartan, toprol - Devices: none indicated - Dx: TTE Assessment & Plan (12/04/2022 1:51 PM EDT): No failure by history nor exam. Will obtain echo report from [facility] from 06/2022 - Diuresis: none - Cardioprotection: valsartan, toprol - Devices: none indicated Assessment & Plan (01/23/2022 8:49 AM EDT): No failure by history nor exam. - Diuresis: none - Cardioprotection: valsartan - Devices: none indicated Assessment & Plan (01/17/2021 10:56 AM EDT): No failure by history nor exam. - Diuresis: none - Cardioprotection: irbesartan 150 - Devices: none indicated Assessment & Plan (04/06/2019 10:18 AM EDT): No volume overload by exam; however, has new symptom of dyspnea. More than likely from deconditioning from femur fracture, though worsening of CDM cannot be excluded - Diuresis: n/a - cardioprotection: lopressor 12.5 BID (no strict indication for Toprol), losartan 50 - Dx: TTE (attention to gross/regional function) Bilateral carotid artery stenosis 04/06/2019 Overview (04/21/2019): 03/2019: auscultation of carotid bruit on left 04/21/2019: carotid US demonstrates mild stenosis (< 50%) in bilateral proximal ICA Assessment & Plan (04/06/2019 10:25 AM EDT): Carotid duplex Anemia of chronic renal failure, stage 3 (modera te) 12/30/2017 ASCVD (arteriosclerotic cardiovascular disease) 11/18/2017 Overview (07/17/2023): 11/2017 (NSTE-ACS): mild diffuse LM and RCA, 75% mid LAD-> JENNI, 95% prox OM1-> JENNI. EF 64%, post/lat hypokinesis, mild AI 06/2023 RxNST (dyspnea): no ischemia/infarct Assessment & Plan (06/27/2023 8:22 AM EST): We have elimintiaed structural cardiac causes and electrophysiologic causes from the possible causes of dyspnea. The coronary axis is the only remainder, and will thus pursue stress testing - Anti-Thrombosis: eliquis - Statin: lipitor 80 - Anti-anginals: GTN PRN. Toprol - Dx: RxNST Assessment & Plan (03/20/2023 10:12 PM EDT): Has chest pain of effort; this can be CAD versus volume overload. Contingency for stress testing if echocardiogram (see CDM plan below) is with lower EF - Anti-Thrombosis: eliquis - Statin: lipitor 80 - Anti-anginals: GTN PRN. toprol Assessment & Plan (12/04/2022 1:50 PM EDT): No angina per history. Can stop aspirin since it has been > 12 months since PCI and he is on OAC - Anti-Thrombosis: eliquis - Statin: lipitor 80 - Anti-anginals: GTN PRN. toprol Assessment & Plan (01/23/2022 8:48 AM EDT): No angina per history. - Anti-Thrombosis: asa 81 - Statin: lipitor 80 - Anti-anginals: GTN PRN. It is reasonable to take one proactively prior to strenuous exercise Assessment & Plan (01/17/2021 10:56 AM EDT): No angina per history. - Anti-Thrombosis: asa 81 - Statin: lipitor 80 - Anti-anginals: GTN PRN. It is reasonable to take one proactively prior to strenuous exercise Assessment & Plan (07/20/2020 9:13 AM EST): No angina per history. 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 Assessment & Plan (01/23/2022 8:49 AM EDT): Well controlled on current regimen - valsartan 160 Assessment & Plan (01/17/2021 10:57 AM EDT): Well controlled on current regimen - Irbesartan 150 - hctz 12.5 HLD (hyperlipidemia) 11/18/2017 Resolved Problems Problem Noted Date Diagnosed Date Resolved Date Laceration of left index finger 02/20/2021 01/23/2022 Stented coronary artery 09/29/2019 12/0 10/2019 Combined forms of age-relate d cataract of both eyes 09/09/2019 01/22/2022 Overview (01/11/2021): Added automatically from request for surgery [id number] Added automatically from request for surgery [id number] Acute blood loss anemia 01/13/201812/17 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 01/07/2018 01/11/2021 NSTEMI (non-ST elevated myoc ardial infarction) 11/18/2017 12/30/2017 History of SCC (squamous garrett l carcinoma) of skin 03/06/2017 06/07/2019 History of basal cell carcinoma 02/11/2017 06/07/2019 AK (actinic keratosis) 02/11/201707/20 Encounters Date Type Department Care Team Description 01/26/2024 Telephone Dermatology at [address] [phone] Marlyn Dean RN 01/16/2024 10:08 PM EDT - 01/16/2024 11:59 PM EDT Hospital [place] [address] Discharge Disposition: Home 01/16/2024 10:30 AM EDT Office Visit Dermatology at [address] [phone] Mathew Fernando MD AK (actinic keratosis); History of SCC (squamous cell carcinoma) of skin; History of basal cell carcinoma 01/16/2024 Travel 01/13/2024 Telephone Cardiology at [address] [place] [address] Joel Link MD from Last 3 Months Family History Medical History Relation Comments Heart Disease Neg Hx Social History Tobacco Use Types Packs/Day Years Used Date Smoking Tobacco: Former Cigarettes Q uit: 11/17/1999 Smokeless Tobacco: Never Alcohol Use Standard Drinks/Week Comments No 0 (1 standard drink = 0.6 oz pur e alcohol) Sex and Gender Information Value Date Recorded Sex Assigned at Not on file Gender Identity Not on file Sexual Orientation Not on file Last Filed Vital Signs Vital Sign Reading Time Taken Comments Blood Pressure 118/71 06/19/2023 1:11 PM EDT Pulse 86 06/19/2023 1:11 PM EDT per e cg Temperature 37 ??C (98.6 ??F) 11/20/2017 7:47 AM EDT Respiratory Rate 12 04/01/2018 9:33 AM EDT Oxygen Saturation 100% 11/20/2017 7:47 AM EDT Inhaled Oxygen Concentration - - Weight 88 kg (194 lb) 06/19/2023 1:11 PM EDT Height 185.4 cm (6' 1) 06/19/2023 1:11 PM EDT Body Mass Index 25.6 06/19/2023 1:11 PM EDT Plan of Treatment Upcoming Encounters Date Type Department Care Team (Late st Contact Info) Description 04/05/2024 3:00 PM EDT Office Visit Cardiology at [address] [address] Joel Link MD [facility] [place] [address] 01/18/2025 10:15 AM EDT Office Visit Dermatology at [address] [phone] Mathew Fernando MD [address] [place] [address] [place] [address] Health Maintenance Due Date Last Done Comments Pneumoccocal Vaccine: 65+ (1 of 2 - PCV) 12/06/1945 Tdap adult 12/06/1958 Tetanus vaccine 12/06/1958 Zoster vaccine (1 of 2) 12/06/1989 Advance Directive 12/06/1994 Covid-19 Vaccine ( season) 2023 Influenza (Flu) vaccine (1 o f 1 - Influenza standard series) 04/18/2024 Procedures Procedure Name Priority Date/Time Associated Diagnosis Comments SURGICAL PATHOLOGY REPORT Routine 01/16/2024 10:55 AM EDT DIAGNOSTIC RADIOLOGY SCAN 01/09/2024 12:00 AM EDT LAB SCAN 12/12/2023 12:00 AM EDT from Last 3 Months Results * Surgical Pathology Report (01/16/2024 10:55 AM EDT) FINAL DIAGNOSIS (AP) [id number] ? Location: OPW The signing pathologist has (i) examined the relevant preparation(s) for the specimen(s) and (ii) rendered or confirmed the diagnosis(es). . ?Surgical Pathology DIAGNOSIS Right mid cheek, skin shave biopsy C&D: - ??Basal cell carcinoma, superficial and nodular types, ?? present at the peripheral and deep specimen edges Electronically signed by: ?Karthik QUINTERO, PhD, [facility] Verified: ??01/23/2024 15:43 ??Dermatopathol ogist Performed at: ??-[facility] Dept. of Pathology, [place] [address] [employer] Station Attendant: Alma Giang MD, FCAP, ??CLIA Certificate: [id number] SPECIMEN(S) SUBMITTED A - R mid cheek, ED&C Referring Identifier: ?(not provided) CLINICAL INFORMATION Nonhealing keratotic papule, treated with shave C&D x 3. ??SCCA/BCCA SPECIMEN PROCESSING A - Labeled/Fixativ e: Patient demographics, formalin. Quantity/Size: ??Single, 0.5 cm diameter. Tissue Description: Nonoriented persaud-mon shave of a 0.1 cm irregularly bordered red- brown papule. Sections/Proces sing: Inked, bisected and entirely submitted in 1 cassette labeled A1. ??shb 01/23/2024 3:43 PM EDT [facility] 01/16/2024 10:5 5 AM EDT Mathew Fernando MD PATHOLOGY/CYTOLOGY O RDERABLES [facility] [place] [address] * Scan Doc: Diagnostic Radiology (01/09/2024 12:00 AM EDT) Anatomical Region Laterality Modality Other Narrative 01/09/2024 12:00 AM EDT Ordered by an unspecified provider. Scanning Provider MEDIA MGR SCAN EXT O RDR/RSLT * Scan Doc: Lab (12/12/2023 12:00 AM EDT) Narrative 12/12/2023 12:00 AM EDT Ordered by an unspecified provider. Scanning Provider MEDIA MGR SCAN EXT O RDR/RSLT from Last 3 Months Advance Directives Documents on File Type Date Recorded Patient Brazer Helper Induction Expl anation Personal Brazer Helper Induction 06/12/2023 10:42 AM Jesse Brothers - Spouse * Full Code (Latest Code Status on File) Date Activated Date Inactivated Comments 11/18/2017 10:37 PM 11/20/2017 1:04 PM Question Answer Comments Does patient have capacity to make decision: Yes Care Teams Supervisor Veneer Relationship Specialty Start Date End Date Dege, Blanco E, MD [address] [place] [address] PCP - General Family Medicine 03/20/23
--- OUTSIDE RECORDS SUMMARY | 2024-03-10 10:52 | XMS_ITS | Encounter Summary ---
Author Organization [facility] [place] [address] Care Team Providers Care Cardiology Teacher Name Role Phone Blanco Myles MD Primary Care Provider [phone] Encounter Details Date Type Department Care Team (Latest Contact Info) Description 01/16/2024 10:08 PM EDT - 01/16/2024 11:59 PM EDT [place] [address] Discharge Disposition: Home Social History Tobacco Use Types Packs/Day Years Used Date Smoking Tobacco: Former Cigarettes Q uit: 11/17/1999 Smokeless Tobacco: Never Alcohol Use Standard Drinks/Week Comments No 0 (1 standard drink = 0.6 oz pur e alcohol) Sex and Gender Information Value Date Recorded Sex Assigned at Not on file Gender Identity Not on file Sexual Orientation Not on file documented as of this encounter Medications at Time of Discharge Medication Sig Dispensed Refills Start Date End Date benzonatate (Tessalon) 200 mg capsule dabigatran (Pradaxa) 150 mg capsule Take 1 capsule by mouth 2 times daily. 01/05/2024 valsartan (Diovan) 160 mg tablet Take 1 tablet by mouth Daily at Noon. 12/12/2023 doxepin (SINEquan) 10 mg capsule Take 20 mg by mouth nightly. 06/13/2023 tamsulosin (Flomax) 0.4 mg capsule Take 0.4 mg by mouth nightly. 12/17/2022 fluorouraciL (EFUDEX) 5 % Cream Apply twice daily for 1 week on then stop for 3 weeks. Repeat for total of 3 cycles 40 g 1 01/14/2023 metoprolol succinate XL (Toprol-XL) 25 mg ER 24 hr tablet Take 25 mg by mouth daily. furosemide (Lasix) 20 mg tablet Take 20 mg by mouth daily. 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 25 tablet 01/23/2022 atorvastatin (Lipitor) 80 mg Tablet Take 80 mg by mouth every evening. 05/31/2020 fluticasone propionate (FLONASE) 50 mcg/actuation [place], Suspension 2 sprays by Each Nare route daily as needed. 03/11/2020 polyethylene glycol (MIRALAX) 17 gram Powder in Packet Take 17 g by mouth daily as needed. 01/14/2018 multivitamin (THERAGRAN) Tablet Take 1 tablet by mouth daily. cholecalciferol, Vitamin D3, 50 mcg (2,000 unit) Capsule Take 1 capsule by mouth daily. buPROPion (WELLBUTRIN SR OR ZYBAN) 150 mg Tablet Sustained Release 12 hr take 1 tablet by mouth twice a day 0 12/23/2016 documented as of this encounter Plan of Treatment Upcoming Encounters Date Type Department Care Team (Late st Contact Info) Description 04/05/2024 3:00 PM EDT Office Visit Cardiology at [address] [phone] Joel Link MD [facility] [place] [address] 01/18/2025 10:15 AM EDT Office Visit Dermatology at [address] [address] Mathew Fernando MD [address] [place] [address] DERMAT[address]Y [place], [place] [id number] documented as of this encounter Procedures Procedure Name Priority Date/Time Associated Diagnosis Comments SURGICAL PATHOLOGY REPORT Routine 01/16/2024 10:55 AM EDT documented in this encounter Results * Surgical Pathology Report (01/16/2024 10:55 AM EDT) FINAL DIAGNOSIS (AP) [id number] ? Location: OPW The signing pathologist has (i) examined the relevant preparation(s) for the specimen(s) and (ii) rendered or confirmed the diagnosis(es). . ?Surgical Pathology DIAGNOSIS Right mid cheek, skin shave biopsy C&D: - ??Basal cell carcinoma, superficial and nodular types, ?? present at the peripheral and deep specimen edges Electronically signed by: ?Karthik QUINTERO, PhD, [facility] Verified: ??01/23/2024 15:43 ??Dermatopathol ogist Performed at: ??-[facility] Dept. of Pathology, [place] [address] Residential Plumber: Alma Giang MD, FCAP, ??CLIA Certificate: [id number] SPECIMEN(S) SUBMITTED A - R mid cheek, [...] labeled A1. ??shb 01/23/2024 3:43 PM EDT [facility] 01/16/2024 10:5 5 AM EDT Mathew Fernando MD PATHOLOGY/CYTOLOGY [place] [place] [place] [address] documented in this encounter Visit Diagnoses Not on filedocumented in this encounter Care Teams Cardiology Teacher Relationship Specialty Start Date End Date Blanco Myles MD [address] [place] [address] PCP - General Family Medicine 03/20/23 documented as of this encounter
--- OUTSIDE RECORDS SUMMARY | 2024-03-10 10:52 | XMS_ITS ---
Author Organization Unknown Address [address] [place] [phone] Phone Care Team Providers Care Drain Technician Name Role Phone CRAIG Randle Attending Unavailable ADOLFO Randle Primary Unavailable Immunization Immunization Date Status Additional Notes Code Code System COVID-19, mRNA, LNP-S, PF, 1 00 mcg/0.5mL dose or 50 mcg/0.25mL dose 09/19/2020 Completed 207 CVX COVID-19, mRNA, LNP-S, PF, 1 00 mcg/0.5mL dose or 50 mcg/0.25mL dose 10/17/2020 Completed 207 CVX Results XR ANKLE LT 3V* - Completed: 06/10/2022 13:26 [facility]: [place], [place] [address] PACS GRADUATE INTERN REPORT Patient Name: SAMI MOODY MRN: Sex: : Age: [id number] M 1940 81 Account: Accession: Admit: StayType: [id number] 06/10/2022 CLINIC Ordered: Order ID: Entered Order: Ordering Provider: 06/10/2022 13:14 [id number] SALOMON HARRIS Completed: Tech Completed: Resulted DTTM: 06/10/2022 13:27 JAZZMINE 06/10/2022 13:52 Study Description: XR ANKLE LT [...] 3V LT* - Completed: 06/10/2022 13:26 LOINC: [facility] [place], [place] [address] PACS GRADUATE INTERN REPORT Patient Name: SAMI MOODY MRN: Sex: : Age: [id number] M 1940 81 Account: Accession: Admit: StayType: [id number] 06/10/2022 CLINIC Ordered: Order ID: Entered Order: Ordering Provider: 06/10/2022 13:14 [id number] SALOMON HARRIS Completed: Tech Completed: Resulted DTTM: 06/10/2022 13:27 CLAUDIAP 06/10/2022 13:34 Study Description: XR FOOT 3V [...] Code Syst em Smoking History Former smoker 08/18/19955338 2424178 SNOMED CT Sex Male Medications Medication Start Date End Date Route Frequency Dose Code Code System Medication Instructions Home Meds Androderm 4MG/24HR Transdermal Patch, Extended Release 09/25/2021 Unknown TRANSDERMAL BEDTIME 1 TRANSDERMAL PATCH 5568637 RxNorm APPLY 1 TRANSDERMAL PATCH TRANSDERMAL BEDTIME Aspir 81 81MG Oral Tablet, Enteric Coated 09/25/2021 Unknown ORAL DAILY 81 MILLIGRAMS RxNorm TAKE 81 MILLIGRAMS ORAL DAILY Atorvastatin Calcium 80MG Oral Tablet 09/25/2021 Unknown ORAL BEDTIME 80 MILLIGRAMS 417350 RxNorm TAKE 80 MILLIGRAMS ORAL BEDTIME Calcium 600 MG Oral Tablet 09/25/2021 Unknown ORAL DAILY 600 MG 109280 RxNorm TAKE 600 MG ORAL DAILY Temazepam [...] Unknown ORAL TWICE A DAY 150 MILLIGRAMS 4699254 RxNorm TAKE 150 MILLIGRAMS ORAL TWICE A DAY Valsartan 160MG Oral Tablet 09/26/2021 Unknown ORAL DAILY 160 MILLIGRAMS 573585 RxNorm TAKE 1 TABLET BY MOUTH DAILY [...] arthrodesi s, deltoid ligament reconstruc tion 09/17 5585992 9 01/15/2026 Arthre x(R) AR-1319 FT Bone matrix implant, synthetic, non-antimi crobial 0110 8594 7700 2140 1121 1220 1723 0430 1017 2247 8 Active FDA left foot triple arthrodesi s, poss deltoid ligament reconsttru ction 09/17 [id number] 08/06/2021 12/15/2022 AUGMEN T(R) Inject able [id number] 10 +M53 6276 1501 51/$ $526 2702 0524 9120 3F Active FDA left foot triple arthrodesi s, possible deltoid ligament reconstruc tion 09/17 6886698 20305/14/2026 Cancel lous Chips 4-9.5m m 15 cc Allergies and Adverse Reactions Allergy Substance Reaction Severity Start Date Concern Status Co de Code System OXYCODONE NAUSEA (SNOMED-CT: 254171391), Nausea (SNOMED-CT: 997679836) Mild Active 7804 RxNorm Plan of Treatment PRE-OP COVID-19 TESTING 09/14/2021 MRI LOWER EXT W/O CONTRAST 07/17/2021 Encounters Encounter Diagnosis Start Date Code Code Sys tem Arthrodesis 06/10/2022 97736071 SNOMED-CT Personal Care Team Section Performer Name Performer Role Active Date Inactive Da te
--- OUTSIDE RECORDS SUMMARY | 2024-03-10 10:52 | XMS_ITS | Encounter Summary ---
Author Organization [facility] [place] [address] Care Team Providers Care Nurse Sane Name Role Phone Karo Otero MD Primary Care Provider [phone] Reason for Visit * Reason Onset Date Comments Atrial Fibrillation 09/16/2022 Encounter Details Date Type Department Care Team (Late st Contact Info) Description 09/16/2022 Telephone Cardiology at [address] [place] [phone] Joel Link MD [facility] [address] Atrial Fibrillation Social History Tobacco Use Types Packs/Day Years [...] Telephone Encounter - Bonnie Watson RN - 09/16/2022 3:21 PM EST Tra called to update Dr. Link. Last Friday he had the much needed surgery for his knee. He says his attentive anesthesia providerobserved atrial fibrillation. It has stopped and resumed several times since September 10. Friday he saw PCP Karo Otero who prescribed Eliquis 2.5 mg twice a day. Primary subjective symptom: fatigue. [place] accepted plan to see Dr. Link in the clinic in two weeks. documented in this encounter Plan of Treatment Upcoming Encounters Date Type Department Care Team (Late st Contact Info) Description 04/05/2024 3:00 PM EDT Office Visit Cardiology at [address] [place] [address] Joel Link MD [facility] [place] [address] 01/18/2025 10:15 AM EDT Office Visit Dermatology at [address] [phone] Mathew Fernando MD [address] [place] [address] [place] [address] documented as of this encounter Visit Diagnoses Not on filedocumented in this encounter Care Teams Nurse Sane Relationship Specialty Start Date End Date Karo Otero MD [address] [place] [id number] PCP - General Family Medicine 02/11/17 03/19/23 documented as of this encounter
--- OUTSIDE RECORDS SUMMARY | 2024-03-10 10:52 | XMS_ITS | Encounter Summary ---
Author Organization [facility] [place] [address] Care Team Providers Care Conference Center Coordinator Name Role Phone Blanco Myles MD Primary Care Provider [phone] Reason for Referral * Surgical (Routine) - Closed Specialty Diagnoses / Procedures Referred By Contac t Referred To Contact Diagnoses PAF (paroxysmal atrial fibrillation) Procedures CARDIOVERSION-OR Joel Link MD [facility] [place] [address] Referral ID Status Reason Start Date Expiration Date V isits Requested Visits Authorized [id number] Closed Specialty Service Requested 05/05/2023 11/01/2023 1 1 Encounter Details Date Type Department Care Team (Late st Contact Info) Description 05/01/2023 Telephone Cardiology at [address] [place] [address] Joel Link MD [facility] [place] [address] Social History Tobacco Use Types Packs/Day Years [...] Telephone Encounter - Bonnie Watson RN - 05/05/2023 3:32 PM EDT Call to Erwin - reviewed results of Holter monitor and Dr. Link' recommendation to DCCV. Erwin confirms he has not missed any doses of eliquis. Brief description of cardioversion was explained to Erwin. He is in agreement to proceed with scheduling this DCCV. Plan: to update Erwin with date and further instructions once DCCV is scheduled * Telephone Encounter - Bonnie Watson RN - 05/05/2023 3:29 PM EDT ----- Message from Joel Link MD sent at 05/05/2023 2:59 PM EDT ----- Regarding: RE: hloter scanned Echo and Holter reviewed Echo is normal Holter shows persistent atrial fibrillation. No diary entries were reported. However, I think it would be reasonable to attempt to cardiovert for symptom control ----- Message ----- From: Xochitl Osborn Sent: 05/05/2023 2:47 PM EDT To: Joel Link MD, Lit Card Nurse Subject: hloter scanned Holter scanned * Telephone Encounter - Bonnie Watson RN - 05/05/2023 9:58 AM EDT Erwin called because he has not yet been advised on his monitor report or what to do about the palpitations that continue to interfere with sleep. * Telephone Encounter - Xochitl Osborn - 05/01/2023 8:43 AM EDT Patient called because he said he has not heard the results of his echo or his monitor. Please call him @ [phone] documented in this encounter Plan of Treatment Upcoming Encounters Date Type Department Care Team (Late st Contact Info) Description 04/05/2024 3:00 PM EDT Office Visit Cardiology at [address] [place] [address] Joel Link MD [facility] [place] [address] 01/18/2025 10:15 AM EDT Office Visit Dermatology at [address] [place] [address] Mathew Fernando MD [address] [place] [address] [place] [address] Scheduled Orders Name Type Priority Associated Diagnoses Orde r Schedule CARDIOVERSION-OR Procedures Routine PAF (paroxysmal atrial fibrillation) Expected: 05/05/2023, Expires: 09/04/2023 documented as of this encounter Visit Diagnoses Diagnosis PAF (paroxysmal atrial fibrillation) Atrial fibrillation documented in this encounter Care Teams Conference Center Coordinator Relationship Specialty Start Date End Date Blanco Myles MD [address] [place] [address] PCP - General Family Medicine 03/20/23 documented as of this encounter
--- OUTSIDE RECORDS SUMMARY | 2024-03-10 10:52 | XMS_ITS | Encounter Summary ---
Author Organization [facility] [place] [address] Care Team Providers Care Chef Kitchen Manager Name Role Phone Karo Otero MD Primary Care Provider [phone] Encounter Details Date Type Department Care Team (Latest Contact Info) Description 01/13/2023 10:04 PM EDT - 01/13/2023 11:59 PM EDT Hospital [place] [address] Discharge Disposition: Home Social History Tobacco Use [...] Sig Dispensed Refills Start Date End Date tamsulosin (Flomax) 0.4 mg capsule Take 0.4 mg by mouth nightly. 12/17/2022 metoprolol succinate XL (Toprol-XL) 25 mg ER 24 hr tablet Take 25 mg by mouth daily. furosemide (Lasix) 20 mg tablet Take 20 mg by mouth daily. 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 25 tablet 01/23/2022 atorvastatin (Lipitor) 80 mg Tablet Take 80 mg by mouth every evening. 05/31/2020 fluticasone propionate (FLONASE) 50 mcg/actuation [place], Suspension 2 sprays by Each Nare route [...] by mouth twice a day 0 12/23/2016 hydrOXYzine (Atarax) 25 mg tablet Take 25-50 mg by mouth every 6 hours as needed. 10/15/2022 06/19/2023 apixaban (Eliquis) 2.5 mg tabletIndications:preve nt thromboembolism in chronic atrial fibrillation Take 2.5 mg by mouth 2 times daily. Initiated by Karo Otero Indications: treatment to prevent blood clots in chronic atrial fibrillation 09/13/2022 01/16/2024 valsartan (DIOVAN) 320 mg Tablet Take 320 mg by mouth daily. 04/26/2022 01/16/2024 temazepam (RESTORIL) 15 mg Capsule take 1 capsule by mouth at bedtime 0 09/29/2016 06/19/2023 documented as of this encounter Plan of Treatment Upcoming Encounters Date Type Department Care Team (Late st Contact Info) Description 04/05/2024 3:00 PM EDT Office Visit Cardiology at [address] [place] [phone] Joel Link MD [facility] [place] [address] 01/18/2025 10:15 AM EDT Office Visit Dermatology at [address] [place] [phone] Mathew Fernando MD [address] [place] [address] [place] [address] documented as of this encounter Procedures Procedure Name Priority Date/Time Associated Diagnosis Comments SURGICAL PATHOLOGY REPORT Routine 01/13/2023 10:45 AM EDT documented in this encounter Results * (ABNORMAL) Surgical Pathology Report (01/13/2023 10:45 AM EDT) FINAL DIAGNOSIS (AP) [id number] ? Location: [facility] The signing pathologist has (i) examined the relevant preparation(s) for the specimen(s) and (ii) rendered or confirmed the diagnosis(es). . ?Surgical Pathology DIAGNOSIS Left anterior shoulder, skin shave biopsy ED&C: - ??Invasive squamous cell carcinoma, ??moderately differentiated with infiltrating growth pattern, present at the base of the biopsy specimen Electronically signed by: ?Karthik QUINTERO, PhD, [facility] Verified: ??01/22/2023 8:51 ?? Dermatopathologist Performed at: ??-[facility] Dept. of Pathology, [place] [address] Analyzer Sales: Alma Giang MD, [facility], ??CLIA Certificate: [id number] DISCUSSION THIS RESULT REQUIRES PHYSICIAN/A.P.P. FOLLOW UP SPECIMEN(S) SUBMITTED A - L anterior shoulder, skin ED&C () Referring Identifier: ?(not provided) CLINICAL INFORMATION Pearly excoriated papule, fx'ed shave c&d: BCCa/SCCa SPECIMEN PROCESSING A - Labeled/Fixative: Patient demographics, formalin. Quantity/Size: ??Single, 1.0 x 0.7 x 0.2 cm. Tissue Description: Shave of white skin with a 0.3 x 0.2 cm mon pink papule. Sections/Processing: Inked, trisected and entirely submitted in 1 cassette labeled A1. ??anahiy(A) 01/22/2023 8:51 AM EDT [facility] 01/13/2023 10:4 5 AM EDT Mathew Fernando MD PATHOLOGY/CYTOLOGY O DANIELITO [facility] [place] [address] documented in this encounter Visit Diagnoses Not on filedocumented in this encounter Care Teams Chef Kitchen Manager Relationship Specialty Start Date End Date Karo Otero MD [address] [place] [address] PCP - General Family Medicine 02/11/17 03/19/23 documented as of this encounter
--- OUTSIDE RECORDS SUMMARY | 2024-03-10 10:52 | XMS_ITS | Encounter Summary ---
Author Organization [facility] [place] [address] Care Team Providers Care Human Services Instructor Name Role Phone Blanco Myles MD Primary Care Provider [phone] Reason for Visit * Reason Comments Atrial Fibrillation Coronary Artery Disease Encounter Details Date Type Department Care Team (Latest Contact Info) Description 06/19/2023 1:00 PM EDT Office Visit Cardiology at [address] [phone] Joel Link MD [facility] [place] [address] Cardiomyopathy, ischemic; PAF (paroxysmal atrial fibrillation); Palpitations; Dyspnea, unspecified type; ASCVD (arteriosclerotic cardiovascular disease) Social History Tobacco Use Types Packs/Day Years Used Date Smoking Tobacco: Former Cigarettes Q uit: 11/17/1999 Smokeless Tobacco: Never Alcohol Use Standard Drinks/Week Comments No 0 (1 standard drink = 0.6 oz pur e alcohol) Sex and Gender Information Value Date Recorded Sex Assigned at Not on file Gender Identity Not on file Sexual Orientation Not on file documented as of this encounter Last Filed Vital Signs Vital Sign Reading Time Taken Comments Blood Pressure 118/71 06/19/2023 1:11 PM EDT Pulse 86 06/19/2023 1:11 PM EDT per e cg Temperature - - Respiratory Rate - - Oxygen Saturation - - Inhaled Oxygen Concentration - - Weight 88 kg (194 lb) 06/19/2023 1:11 PM EDT Height 185.4 cm (6' 1) 06/19/2023 1:11 PM EDT Body Mass Index 25.6 06/19/2023 1:11 PM EDT documented in this encounter Progress Notes * Joel Link MD - 06/19/2023 1:00 PM EDT Images from the original note were not included. Subjective: Patient ID: Tra Brothers III is a 82 y.o. male who presents on follow-up for: Chief Complaint Patient presents with Atrial Fibrillation Coronary Artery Disease HPI Last seen by me 03/2023, at which time Holter monitor was obtained which confirmed persistent atrialfibrillation (which was posited to be a culprit for exertional symptoms, along with intravascular hypervolemia), and an echocardiogram was obtained. He was then referred for DCCV which was successful Since then, he has not noticed a significant improvement in dyspnea. Remains with nyha ii-iii level. Also has frequent episodes of tachypalpitations. No angina Current Outpatient Medications Medication Instructions apixaban (ELIQUIS) 2.5 mg, Oral, 2 TIMES DAILY, Initiated by Karo Otero atorvastatin (LIPITOR) 80 mg, Oral, EVERY EVENING buPROPion (WELLBUTRIN SR OR ZYBAN) 150 mg Tablet Sustained Release 12 hr take 1 tablet by mouth twice a day cholecalciferol, Vitamin D3, 50 mcg (2,000 unit) Capsule 1 capsule, Oral, DAILY doxepin (SINEQUAN) 20 mg, Oral, NIGHTLY fluorouraciL (EFUDEX) 5 % Cream Apply twice daily for 1 week on then stop for 3 weeks. Repeat for total of 3 cycles fluticasone propionate (FLONASE) 50 mcg/actuation [place], Suspension 2 sprays, Each Nare, DAILY PRN furosemide (LASIX) 20 mg, Oral, DAILY metoprolol succinate XL (TOPROL-XL) 25 mg, Oral, DAILY multivitamin (THERAGRAN) Tablet 1 tablet, Oral, DAILY nitroGLYcerin (NITROSTAT) 0.4 mg, Sublingual, EVERY 5 MIN PRN polyethylene glycoL (MIRALAX) 17 g, Oral, DAILY PRN tamsulosin (FLOMAX) 0.4 mg, Oral, NIGHTLY valsartan (DIOVAN) 320 mg, Oral, DAILY Patient Active Problem List Diagnosis PAF (paroxysmal atrial fibrillation) 08/2022: Dx tay-operative knee surgery. 05/2023: DCCV (1 @ 150). Acutely successful Fracture of distal phalanx of left index finger CKD (chronic kidney disease) De Quervain's tenosynovitis, left Depression Left knee DJD 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 Ventricular bigeminy Cardiomyopathy, ischemic 11/2017: Preserved EF (64%), with lateral HK. 04/2019: EF 64%, no wmas 06/2022: EF 45-50%, no regional wmas. Mod MR 04/2023 TTE: normalized LV function. Unremarkable study aside from persistent rate controlled afib Bilateral carotid artery stenosis 03/2019: auscultation of carotid bruit on left 04/21/2019: carotid US demonstrates mild stenosis (< 50%) in bilateral proximal ICA Anemia of chronic renal failure, stage 3 (moderate) ASCVD (arteriosclerotic cardiovascular disease) 11/2017 (NSTE-ACS): mild diffuse LM and RCA, 75% mid LAD-> JENNI, 95% prox OM1-> JENNI. EF 64%, post/lat hypokinesis, mild AI Hyperpiesia HLD (hyperlipidemia) Objective: BP 118/71 (BP Location (NBP): Left arm, Patient Position: Sitting) Pulse 86 Comment: per ecg Ht185.4 cm (6' 1) Wt 88 kg (194 lb) BMI 25.60 kg/m?? Gen: pleasant male in NAD Cor: rrr, s1/s2 of nl character and amplitude, no m/r/g. Estimated RAP not elevated. Carotids with normal upstroke without bruit. Pulm: CTAB. Normal diaphragmatic movement without use of accessory muscles EKG: nsr via 1* AVNB, pvc Assessment and Plan: ASCVD (arteriosclerotic cardiovascular disease) We have elimintiaed structural cardiac causes and electrophysiologic causes from the possible causes of dyspnea. The coronary axis is the only remainder, and will thus pursue stress testing - Anti-Thrombosis: eliquis - Statin: lipitor 80 - Anti-anginals: GTN PRN. Toprol - Dx: RxNST Cardiomyopathy, ischemic No failure by exam - Diuresis: lasix 20 qd - Cardioprotection: valsartan, toprol - Devices: none indicated PAF (paroxysmal atrial fibrillation) He remains in sinus per EKG today. Will obtain another Holter monitor for daily palpitations. If these are confirmed to be an arrhythmia of some sort, would consider anti-arrhythmic therapy. - Strategy: rate. Continue toprol 25 - OAC: eliquis 2.5 (age, creatinine > 1.5) - Reversible Causes: none identified - Dx; Holter Monitor 48 hour RTC pending above Joel Link MD documented in this encounter Miscellaneous Notes * Assessment & Plan Note - Joel Link MD - 06/27/2023 8:24 AM EST Associated Problem(s): PAF (paroxysmal atrial fibrillation) He remains in sinus per EKG today. Will obtain another Holter monitor for daily palpitations. If these are confirmed to be an arrhythmia of some sort, would consider anti-arrhythmic therapy. - Strategy: rate. Continue toprol 25 - OAC: eliquis 2.5 (age, creatinine > 1.5) - Reversible Causes: none identified - Dx; Holter Monitor 48 hour * Assessment & Plan Note - Joel Link MD - 06/27/2023 8:23 AM EST Associated Problem(s): Cardiomyopathy, ischemic No failure by exam - Diuresis: lasix 20 qd - Cardioprotection: valsartan, toprol - Devices: none indicated * Assessment & Plan Note - Joel Link MD - 06/27/2023 8:22 AM EST Associated Problem(s): ASCVD (arteriosclerotic cardiovascular disease) We have elimintiaed structural cardiac causes and electrophysiologic causes from the possible causes of dyspnea. The coronary axis is the only remainder, and will thus pursue stress testing - Anti-Thrombosis: eliquis - Statin: lipitor 80 - Anti-anginals: GTN PRN. Toprol - Dx: RxNST documented in this encounter Plan of Treatment Upcoming Encounters Date Type Department Care Team (Late st Contact Info) Description 04/05/2024 3:00 PM EDT Office Visit Cardiology at [address] [place] [address] Joel Link MD [facility] [place] [address] 01/18/2025 10:15 AM EDT Office Visit Dermatology at [address] [address] Mathew Fernando MD [address] [place] [address] [place] [address] documented as of this encounter Visit Diagnoses Diagnosis Cardiomyopathy, ischemic Other specified forms of chronic ischemic heart disease PAF (paroxysmal atrial fibrillation) Atrial fibrillation Palpitations Dyspnea, unspecified type ASCVD (arteriosclerotic cardiovascular disease) Unspecified cardiovascular disease documented in this encounter Care Teams Human Services Instructor Relationship Specialty Start Date End Date Blanco Myles MD [address] [place] [address] PCP - General Family Medicine 03/20/23 documented as of this encounter
--- OUTSIDE RECORDS SUMMARY | 2024-03-10 10:52 | XMS_ITS | Encounter Summary ---
Author Organization [facility] [place] [address] Care Team Providers Care Fourdrinier Operator Name Role Phone Blanco Myles MD Primary Care Provider [phone] Reason for Referral * Diagnostic Test (Routine) - Closed Specialty Diagnoses / Procedures Referred By Contac t Referred To Contact Cardiology Diagnoses Cardiomyopathy, ischemic Procedures Echocardiogram Transthoracic Joel Link MD [facility] [place] [address] [facility] [address] [place] [address] [place] [address] Referral ID Status Reason Start Date Expiration Date V isits Requested Visits Authorized [id number] Closed Specialty Service Requested 03/20/2023 09/16/2023 1 1 Reason for Visit * Reason Comments Coronary Artery Disease Atrial Fibrillation Paroxysmal atrial fi brillation Encounter Details Date Type Department Care Team (Latest Contact Info) Description 03/20/2023 3:20 PM EDT Office Visit Cardiology at [address] [place] [address] Joel Link MD [facility] [place] [address] Cardiomyopathy, ischemic; ASCVD (arteriosclerotic cardiovascular disease); PAF (paroxysmal atrial fibrillation) Social History Tobacco Use Types Packs/Day Years [...] Sign Reading Time Taken Comments Blood Pressure 104/64 03/20/2023 3:39 PM EDT Pulse 70 03/20/2023 3:39 PM EDT ECG Temperature - - Respiratory Rate - - Oxygen Saturation - - Inhaled Oxygen Concentration - - Weight 86.6 kg (191 lb) 03/20/2023 3:39 PM EDT Height 180.3 cm (5' 11) 03/20/2023 3:39 PM EDT Body Mass Index 26.64 03/20/2023 3:39 PM EDT documented in this encounter Patient Instructions * Patient Instructions* Joel Link MD - 03/20/2023 3:20 PM EDT - Take lasix twice a day documented in this encounter Progress Notes * Joel Link MD - 03/20/2023 3:20 PM EDT Images from the original note were not included. Subjective: Patient ID: Tra Brothers III is a 82 y.o. male who presents on follow-up for: Chief Complaint Patient presents with Coronary Artery Disease Atrial Fibrillation Paroxysmal atrial fibrillation HPI Last seen by me 11/2022, at which time asa was discontinued as he was on OAC and last stent was >12 months prior. He reports that over the past month or two he has developed increasing dyspnea, now to the nyha iiilevel. He is without orthopnea, pnd. Notes ccs ii angina as well, for which he takes GTN with good effect on average 1x/month. He has not had weight gain. Has episodes of tachypalpitations almost daily Has good response to lasix 20. No bleeding on eliquis Current Outpatient Medications Medication Instructions apixaban (ELIQUIS) 2.5 mg, Oral, 2 TIMES DAILY, Initiated by Karo Otero atorvastatin (LIPITOR) 80 mg, Oral, EVERY EVENING buPROPion (WELLBUTRIN SR OR ZYBAN) 150 mg Tablet Sustained Release 12 hr take 1 tablet by mouth twice a day cholecalciferol, Vitamin D3, 50 mcg (2,000 unit) Capsule 1 capsule, Oral, DAILY fluorouraciL (EFUDEX) 5 % Cream Apply twice daily for 1 week on then stop for 3 weeks. Repeat for total of 3 cycles fluticasone propionate (FLONASE) 50 mcg/actuation [place], Suspension 2 sprays, Each Nare, DAILY PRN furosemide (Lasix) 20 mg tablet Oral, 2 TIMES DAILY hydrOXYzine (ATARAX) 25-50 mg, Oral, EVERY 6 HOURS PRN metoprolol succinate XL (TOPROL-XL) 25 mg, Oral, DAILY multivitamin (THERAGRAN) Tablet 1 tablet, Oral, DAILY nitroGLYcerin (NITROSTAT) 0.4 mg, Sublingual, EVERY 5 MIN PRN polyethylene glycoL (MIRALAX) 17 g, Oral, DAILY PRN tamsulosin (FLOMAX) 0.4 mg, Oral, NIGHTLY temazepam (RESTORIL) 15 mg Capsule take 1 capsule by mouth at bedtime valsartan (DIOVAN) 320 mg, Oral, DAILY Patient Active Problem List Diagnosis PAF (paroxysmal atrial fibrillation) 08/2022: Dx tay-operative knee surgery. Fracture of distal phalanx of left index finger CKD (chronic kidney disease) De Quervain's tenosynovitis, left Depression Left knee DJD 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 Ventricular bigeminy Cardiomyopathy, ischemic 11/2017: Preserved EF (64%), with lateral HK. 04/2019: EF 64%, no wmas 06/2022: EF 45-50%, no regional wmas. Mod MR Bilateral carotid artery stenosis 03/2019: auscultation of carotid bruit on left 04/21/2019: carotid US demonstrates mild stenosis (< 50%) in bilateral proximal ICA Anemia of chronic renal failure, stage 3 (moderate) ASCVD (arteriosclerotic cardiovascular disease) 11/2017 (NSTE-ACS): mild diffuse LM and RCA, 75% mid LAD-> JENNI, 95% prox OM1-> JENNI. EF 64%, post/lat hypokinesis, mild AI Hyperpiesia HLD (hyperlipidemia) Objective: BP 104/64 (BP Location (NBP): Right arm, Patient Position: Sitting, BP Cuff Sizes: Adult (25-34 cm)) Pulse 70 Comment: ECG Ht 180.3 cm (5' 11) Wt 86.6 kg (191 lb) BMI 26.64 kg/m?? Gen: pleasant male in NAD Cor: irr, s1/s2 of nl character and amplitude, no m/r/g. Estimated RAP 11 Carotids with normal upstroke without bruit. Pulm: CTAB. Normal diaphragmatic movement without use of accessory muscles EKG: afib 70 Assessment and Plan: ASCVD (arteriosclerotic cardiovascular disease) Has chest pain of effort; this can be CAD versus volume overload. Contingency for stress testing ifechocardiogram (see CDM plan below) is with lower EF - Anti-Thrombosis: eliquis - Statin: lipitor 80 - Anti-anginals: GTN PRN. toprol Cardiomyopathy, ischemic Mildly intravascular hypervolemic. Advised increasing lasix to BID. Will also repeat echocardiogram, as new significant dyspnea emerged since last echo, and he is at risk for adverse remodling - Diuresis: increase lasix to 20 bid - Cardioprotection: valsartan, toprol - Devices: none indicated - Dx: TTE PAF (paroxysmal atrial fibrillation) For the near daily tachypalpitations, will obtain Holter monitoring. His afib seems rate controlled - Strategy: rate. Continue toprol 25 - OAC: eliquis 2.5 (age, creatinine > 1.5) - Reversible Causes: none identified - Dx; Holter Monitor 48 hour RTC 4-6 weeks to review TTE and Holter Joel Link MD documented in this encounter Miscellaneous Notes * Assessment & Plan Note - Joel Link MD - 03/20/2023 10:25 PM EDT Associated Problem(s): PAF (paroxysmal atrial fibrillation) For the near daily tachypalpitations, will obtain Holter monitoring. His afib seems rate controlled - Strategy: rate. Continue toprol 25 - OAC: eliquis 2.5 (age, creatinine > 1.5) - Reversible Causes: none identified - Dx; Holter Monitor 48 hour * Assessment & Plan Note - Joel Link MD - 03/20/2023 10:13 PM EDT Associated Problem(s): Cardiomyopathy, ischemic Mildly intravascular hypervolemic. Advised increasing lasix to BID. Will also repeat echocardiogram, as new significant dyspnea emerged since last echo, and he is at risk for adverse remodling - Diuresis: increase lasix to 20 bid - Cardioprotection: valsartan, toprol - Devices: none indicated - Dx: TTE * Assessment & Plan Note - Joel Link MD - 03/20/2023 10:12 PM EDT Associated Problem(s): ASCVD (arteriosclerotic cardiovascular disease) Has chest pain of effort; this can be CAD versus volume overload. Contingency for stress testing ifechocardiogram (see CDM plan below) is with lower EF - Anti-Thrombosis: eliquis - Statin: lipitor 80 - Anti-anginals: GTN PRN. toprol documented in this encounter Plan of Treatment Upcoming Encounters Date Type Department Care Team (Late st Contact Info) Description 04/05/2024 3:00 PM EDT Office Visit Cardiology at [address] [place] [address] Joel Link MD [facility] [place] [address] 01/18/2025 10:15 AM EDT Office Visit Dermatology at [address] [address] Mathew Fernando MD [address] [place] [address] DERMATOLOGY [place], [place] [id number] Scheduled Orders Name Type Priority Associated Diagnoses Order Schedule Echocardiogram Transthoracic Echocardiography Routine Cardiomyopathy, ischemic Expected: 03/20/2023, Expires: 09/19/2023 documented as of this encounter Visit Diagnoses Diagnosis Cardiomyopathy, ischemic Other specified forms of chronic ischemic heart disease ASCVD (arteriosclerotic cardiovascular disease) Unspecified cardiovascular disease PAF (paroxysmal atrial fibrillation) Atrial fibrillation documented in this encounter Care Teams Fourdrinier Operator Relationship Specialty Start Date End Date Blanco Myles MD [address] [place] [id number] PCP - General Family Medicine 03/20/23 documented as of this encounter
--- OUTSIDE RECORDS SUMMARY | 2024-03-10 10:52 | XMS_ITS | Encounter Summary ---
[place] [address] Care Team Providers Care Taker Off Braker Machine Name Role Phone Karo Otero MD Primary Care Provider [phone] Encounter Details Date Type Department Care Team (Late st Contact Info) Description 07/06/2022 Telephone Cardiology at [address] [address] Fred Reynaga MD [facility] [address] Social History Tobacco Use Types Packs/Day Years [...] encounter Miscellaneous Notes * Telephone Encounter - Fred Reynaga MD - 07/06/2022 7:39 PM EST Cardiology Telephone Note [facility] Mr. Brothers is an 81yo M with history of ischemic cardiomyopathy and preserved EF in the settin of prior NSTEMI (2018; PCI to mLAD and OM1I), CKD, carotid artery stenosis, HTN, HLD who presenting with4 days of progressive shortness of breath. He has progressive difficulty walking longer distances due to his shortness of breath. Reports desaturations at home to 82% which is extremely atypical for h im. He reportedly did not experience any chest pain. Vitals HR 80 BP 175/89 Sat 85% on RA initially --> 100% on RA No overt signs of heart failure per ED providers Labs Hemoglobin 9.8 (12 in 2018) Na 124 K 4.0 Cr 1.9 (1.5 in 2018) Trop 874, second is pending EKG: Sinus rhythm. First degree block. LVH. CTPA negative for PE Assessment: Mr. Brothers is an 81yo male with known coronary disease and an ischemic cardiomyopathy with preserved ejection fraction in that setting who now presents with progressive shortness of breath with elevated troponin concerning for either repeat coronary insult in the form of NSTEMI or decompensated heart failure. - Trend troponins - Trend EKG for dynamic changes - Pro BNP - TTE - If feel this is type 1 NSTEMI, would treat with aspirin, heparin, lipid lowering therapy, and BB (as long as not in over cardiogenic shock or severely decompensated heart failure) - Diuresis if evidence of heart failure - May warrant cardiac catheterization pending clinical course - Follow up with Dr. Link after he has clinically improved Fred Reynaga MD [employer] [id number] documented in this encounter Plan of Treatment Upcoming Encounters Date Type Department Care Team (Late st Contact Info) Description 04/05/2024 3:00 PM EDT Office Visit Cardiology at [address] [address] Joel Link MD [facility] [place] [address] 01/18/2025 10:15 AM EDT Office Visit Dermatology at [address] [address] Mathew Fernando MD [address] [place] [address] DERMATOLOGY [place], [place] [id number] documented as of this encounter Visit Diagnoses Not on filedocumented in this encounter Care Teams Taker Off Braker Machine Relationship Specialty Start Date End Date Karo Otero MD [address] [place] [address] PCP - General Family Medicine 02/11/17 03/19/23 documented as of this encounter
--- OUTSIDE RECORDS SUMMARY | 2024-03-10 10:52 | XMS_ITS | Encounter Summary ---
Author Organization [facility] [place] [address] Care Team Providers Care Senior Administrative Assistant Name Role Phone Karo Otero MD Primary Care Provider [phone] Reason for Visit * Reason Comments Atrial Fibrillation Coronary Artery Disease Encounter Details Date Type Department Care Team (Latest Contact Info) Description 12/04/2022 1:00 PM EDT Office Visit Cardiology at [address] [phone] Joel Link MD [facility] [place] [address] ASCVD (arteriosclerotic cardiovascular disease); Cardiomyopathy, ischemic; PAF (paroxysmal atrial fibrillation) Social History Tobacco [...] Sign Reading Time Taken Comments Blood Pressure 157/90 12/04/2022 1:09 PM EDT Pulse 74 12/04/2022 1:09 PM EDT Temperature - - Respiratory Rate - - Oxygen Saturation - - Inhaled Oxygen Concentration - - Weight 86.2 kg (190 lb) 12/04/2022 1:09 PM EDT Height 180.3 cm (5' 11) 12/04/2022 1:09 PM EDT Body Mass Index 26.5 12/04/2022 1:09 PM EDT documented in this encounter Progress Notes * Joel Link MD - 12/04/2022 1:00 PM EDT Images from the original note were not included. Subjective: Patient ID: Tra Brothers III is a 81 y.o. male who presents on follow-up for: Chief Complaint Patient presents with ??? Atrial Fibrillation ??? Coronary Artery Disease HPI Last seen by me 01/2022, at which time no changes were made. Since then, in August he was noted to be with atrial fibrillation tay- operative knee surgery. He was started on eliquis 2.5 bid by his GP. He had knee surgery in May, and 3 weeks later was in OSH with dyspnea, thought to be from volume overload. He was started on lasix and an echocardiogram was reportedly obtained. The August surgery was a tendon repair, where the afib was found. He notes he is with nyha ii-iii dyspnea since post-surgery in May. It is noted that he was in sinus rhythm during the admission in June. No bleeding on eliquis/asa, though he had a conjunctival hemorrhage after a vicious sneeze. His exertional capacity is gradually increasing with PT, without angina, worsening dyspnea, nor palpitations. Current Outpatient Medications Medication Instructions ??? apixaban (ELIQUIS) 2.5 mg, Oral, 2 TIMES DAILY, Initiated by Karo Otero ??? atorvastatin (LIPITOR) 80 mg, Oral, EVERY EVENING ??? buPROPion (WELLBUTRIN SR OR ZYBAN) 150 mg Tablet Sustained Release 12 hr take 1 tablet by mouthtwice a day ??? cholecalciferol, Vitamin D3, 50 mcg (2,000 unit) Capsule 1 capsule, Oral, DAILY ??? fluticasone propionate (FLONASE) 50 mcg/actuation [place], Suspension 2 sprays, Each Nare, DAILY PRN ??? furosemide (Lasix) 20 mg tablet No dose, route, or frequency recorded. ??? hydrOXYzine (ATARAX) 25-50 mg, Oral, EVERY 6 HOURS PRN ??? metoprolol succinate XL (TOPROL-XL) 25 mg, Oral, DAILY ??? multivitamin (THERAGRAN) Tablet 1 tablet, Oral, DAILY ??? nitroGLYcerin (NITROSTAT) 0.4 mg, Sublingual, EVERY 5 MIN PRN ??? polyethylene glycoL (MIRALAX) 17 g, Oral, DAILY PRN ??? temazepam (RESTORIL) 15 mg Capsule take 1 capsule by mouth at bedtime ??? valsartan (DIOVAN) 320 mg, Oral, DAILY Patient Active Problem List Diagnosis ??? PAF (paroxysmal atrial fibrillation) 08/2022: Dx tay-operative knee surgery. ??? Fracture of distal phalanx of left index finger ??? CKD (chronic kidney disease) ??? De Quervain's tenosynovitis, left ??? Depression ??? Left knee DJD ??? 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 ??? Ventricular bigeminy ??? Cardiomyopathy, ischemic 11/2017: Preserved EF (64%), with lateral HK. 04/2019: EF 64%, no wmas ??? Bilateral carotid artery stenosis 03/2019: auscultation of carotid bruit on left 04/21/2019: carotid US demonstrates mild stenosis (< 50%) in bilateral proximal ICA ??? Anemia of chronic renal failure, stage 3 (moderate) ??? ASCVD (arteriosclerotic cardiovascular disease) 11/2017 (NSTE-ACS): mild diffuse LM and RCA, 75% mid LAD-> JENNI, 95% prox OM1-> JENNI. EF 64%, post/lat hypokinesis, mild AI ??? Hyperpiesia ??? HLD (hyperlipidemia) Objective: BP 157/90 (BP Location (NBP): Right arm, Patient Position: Sitting, BP Cuff Sizes: Adult (25-34 cm)) Pulse 74 Ht 180.3 cm (5' 11) Wt 86.2 kg (190 lb) BMI 26.50 kg/m?? Gen: pleasant male in NAD Cor: irr, s1/s2 of nl character and amplitude, no m/r/g. Estimated RAP not elevated. Carotids with normal upstroke without bruit. Pulm: CTAB. Normal diaphragmatic movement without use of accessory muscles EKG: afib 74 Assessment and Plan: ASCVD (arteriosclerotic cardiovascular disease) No angina per history. Can stop aspirin since it has been > 12 months since PCI and he is on OAC - Anti-Thrombosis: eliquis - Statin: lipitor 80 - Anti-anginals: GTN PRN. toprol Cardiomyopathy, ischemic No failure by history nor exam. Will obtain echo report from [facility] from 06/2022 - Diuresis: none - Cardioprotection: valsartan, toprol - Devices: none indicated PAF (paroxysmal atrial fibrillation) No clear symptoms attributable. He had increase [...] > 1.5) - Reversible Causes: none identified RTC 6 months Joel Link MD documented in this encounter Miscellaneous Notes * Assessment & Plan Note - Joel Link MD - 12/04/2022 1:51 PM EDT Associated Problem(s): PAF (paroxysmal atrial fibrillation) No clear symptoms attributable. He had increase [...] > 1.5) - Reversible Causes: none identified * Assessment & Plan Note - Joel Link MD - 12/04/2022 1:50 PM EDT Associated Problem(s): Cardiomyopathy, ischemic No failure by history nor exam. Will obtain echo report from [facility] from 06/2022 - Diuresis: none - Cardioprotection: valsartan, toprol - Devices: none indicated * Assessment & Plan Note - Joel Link MD - 12/04/2022 1:48 PM EDT Associated Problem(s): ASCVD (arteriosclerotic cardiovascular disease) No angina per history. Can stop aspirin since it has been > 12 months since PCI and he is on OAC - Anti-Thrombosis: eliquis - Statin: lipitor 80 - Anti-anginals: GTN PRN. toprol documented in this encounter Plan of Treatment Upcoming Encounters Date Type Department Care Team (Late st Contact Info) Description 04/05/2024 3:00 PM EDT Office Visit Cardiology at [address] [address] [facility] [place] [address] 01/18/2025 10:15 AM EDT Office Visit Dermatology at [address] [address] Mathew Fernando MD [address] [place] [address] [place] [address] documented as of this encounter Visit Diagnoses Diagnosis ASCVD (arteriosclerotic cardiovascular disease) Unspecified cardiovascular disease Cardiomyopathy, ischemic Other specified forms of chronic ischemic heart disease PAF (paroxysmal atrial fibrillation) Atrial fibrillation documented in this encounter Care Teams Senior Administrative Assistant Relationship Specialty Start Date End Date Karo Otero MD [address] [place] [address] PCP - General Family Medicine 02/11/17 03/19/23 documented as of this encounter
--- OUTSIDE RECORDS SUMMARY | 2024-03-10 10:52 | XMS_ITS | Encounter Summary ---
Author Organization [facility] [place] [address] Care Team Providers Care Beater Engineer Helper Name Role Phone Blanco Myles MD Primary Care Provider [phone] Encounter Details Date Type Department Care Team (Late st Contact Info) Description 05/21/2023 Telephone Cardiology at [address] [address] Joel Link MD [facility] [place] [address] Social History Tobacco Use Types Packs/Day Years [...] Telephone Encounter - Homar Mayorga RN - 05/21/2023 11:35 AM EDT Called and spoke to patient. He reports that he feels his afib symptoms are getting progressively worse with SOB and fatigue. He was reminded that his Cardioversion is scheduled for 06/03 at [facility], andif we get a cancellation we would try to move ups his procedure date. He was also reminded he couldgo to the ER for evaluation for worsening symptoms, which he is thinking about as a possibility. * Telephone Encounter - Beronica Garcia - 05/21/2023 11:29 AM EDT Patient called and is in A-Fib and wants to speak to a nurse. #[phone] Please call. documented in this encounter Plan of Treatment Upcoming Encounters Date Type Department Care Team (Late st Contact Info) Description 04/05/2024 3:00 PM EDT Office Visit Cardiology at [address] [address] Joel Link MD [facility] [place] [address] 01/18/2025 10:15 AM EDT Office Visit Dermatology at [address] [place] [address] Mathew Fernando MD [address] [place] [address] [place] [address] documented as of this encounter Visit Diagnoses Not on filedocumented in this encounter Care Teams Beater Engineer Helper Relationship Specialty Start Date End Date Blanco Myles MD [address] [place] [address] PCP - General Family Medicine 03/20/23 documented as of this encounter
--- OUTSIDE RECORDS SUMMARY | 2024-03-10 10:52 | XMS_ITS | Encounter Summary ---
Author Organization [facility] [place] [address] Care Team Providers Care Computer Technology Trainer Name Role Phone Blanco Myles MD Primary Care Provider [phone] Reason for Visit * Reason Onset Date Comments Tachycardia 02/27/2023 Encounter Details Date Type Department Care Team (Late st Contact Info) Description 02/27/2023 Telephone Cardiology at [address] [phone] Joel Link MD [place] [address] Tachycardia Social History Tobacco Use Types Packs/Day Years [...] encounter Miscellaneous Notes * Telephone Encounter - Xochitl Osborn - 03/27/2023 10:15 AM EDT Patient was seen on 03-20. An echo and holter were ordered for him. He asked if they were scheduled yet and they are not. He said his heart is irregular he said 24/7 and he feels down. Please call him @ [phone] * Telephone Encounter - Bonnie Watson, RN - 02/27/2023 11:16 AM EDT Tra Hood calls in to report HR is sustaining 118-120/min. It is skipping beats. BP 143/92.He feels uncomfortable. He reports he is taking metoprolol and apixaban as prescribed. Recommendation: present to a local ER for evaluation, EKG, and intervention if needed to slow down HR. Plan: identify an appointment time with Dr. Link for follow up documented in this encounter Plan of Treatment Upcoming Encounters Date Type Department Care Team (Late st Contact Info) Description 04/05/2024 3:00 PM EDT Office Visit Cardiology at [address] [place] [address] Joel Link MD [facility] [place] [address] 01/18/2025 10:15 AM EDT Office Visit Dermatology at [address] [place] [phone] Mathew Fernando MD [address] [place] [address] [place] [address] documented as of this encounter Visit Diagnoses Not on filedocumented in this encounter Care Teams Computer Technology Trainer Relationship Specialty Start Date End Date Blanco Myles MD [address] [place] [address] PCP - General Family Medicine 03/20/23 documented as of this encounter
--- OUTSIDE RECORDS SUMMARY | 2024-03-10 10:52 | XMS_ITS | Encounter Summary ---
Author Organization [facility] [place] [address] Care Team Providers Care Strategic Consultant Name Role Phone Blanco Myles MD Primary Care Provider [phone] Encounter Details Date Type Department Care Team (Late st Contact Info) Description 03/31/2023 Telephone Cardiology at [address] [place] [address] Joel Link MD [facility] [place] [address] Social History Tobacco Use Types Packs/Day Years [...] encounter Miscellaneous Notes * Telephone Encounter - Alma Rosa Kelly RN - 03/31/2023 8:28 AM EDT Spoke to scheduling at [facility] and an echo can be done at [facility] the first week of April if he would like to have it done in [place]. Patient called and does request echo order to be sent to [facility], he is aware the scheduling departmentwill contact him. * Telephone Encounter - Xochitl Osborn - 03/31/2023 8:13 AM EDT Patient called because he was ordered an echo and property assessment monitor to be done at [facility]. The property assessment monitor is being put on today but they cannot schedule the echo until June 11. He would like to know if he can get it done sooner here at [facility] or if Dr Link could do it sooner at ? Please call him @ [phone] documented in this encounter Plan of Treatment Upcoming Encounters Date Type Department Care Team (Late st Contact Info) Description 04/05/2024 3:00 PM EDT Office Visit Cardiology at [address] [phone] Joel Link MD [facility] [place] [address] 01/18/2025 10:15 AM EDT Office Visit Dermatology at [address] [phone] Mathew Fernando MD [address] [place] [address] DERMATOLOGY [place], [place] [id number] documented as of this encounter Visit Diagnoses Not on filedocumented in this encounter Care Teams Strategic Consultant Relationship Specialty Start Date End Date Blanco Myles MD [address] [place] [address] PCP - General Family Medicine 03/20/23 documented as of this encounter
--- OUTSIDE RECORDS SUMMARY | 2024-03-10 10:52 | XMS_ITS | Encounter Summary ---
Author Organization [facility] [place] [address] Care Team Providers Care Delivery Helper Name Role Phone Blanco Myles MD Primary Care Provider [phone] Encounter Details Date Type Department Care Team (Late st Contact Info) Description 12/01/2023 Telephone Cardiology at [address] [address] Bonnie Watson, RN Social History [...] Miscellaneous Notes * Telephone Encounter - Bonnie Watson, RN - 12/05/2023 10:31 AM EDT Incoming message from Dr. Becca Koch, neurologist. Erwin has been admitted to [facility] with stroke. Dr. Pittman conferring with Dr. Link. documented in this encounter Plan of Treatment Upcoming Encounters Date Type Department Care Team (Late st Contact Info) Description 04/05/2024 3:00 PM EDT Office Visit Cardiology at [address] [phone] Joel Link MD [facility] [place] [address] 01/18/2025 10:15 AM EDT Office Visit Dermatology at [place] [address] [place] [phone] Mathew Fernando MD [address] [facility] [place] [address] documented as of this encounter Visit Diagnoses Not on filedocumented in this encounter Care Teams Delivery Helper Relationship Specialty Start Date End Date Blanco Myles MD [address] [place] [address] PCP - General Family Medicine 03/20/23 documented as of this encounter
--- OUTSIDE RECORDS SUMMARY | 2024-03-10 10:52 | XMS_ITS | Encounter Summary ---
Author Organization [facility] [place] [address] Care Team Providers Care Recreation Coordinator Name Role Phone Blanco Myles MD Primary Care Provider Reason for Visit * Reason Onset Date Comments Results 04/23/2023 Encounter Details Date Type Department Care Team (Late st Contact Info) Description 04/23/2023 Telephone Cardiology at [address] [phone] Joel Link MD [facility] [place] [address] Results Social History Tobacco Use Types Packs/Day Years [...] Telephone Encounter - Bonnie Watson RN - 04/29/2023 2:07 PM EDT Next appointment: Jun 30 * Telephone Encounter - Bonnie Watson RN - 04/23/2023 9:00 AM EDT ----- Message from Joel Link MD sent at 04/22/2023 6:45 PM EDT ----- Echocardiogram reviewed. Unremarkable Can decrease lasix back to QD + PRN Instructions read to Tra. Tra is concerned that the daily atrial fibrillation needs to be fixed. documented in this encounter Plan of Treatment Upcoming Encounters Date Type Department Care Team (Late st Contact Info) Description 04/05/2024 3:00 PM EDT Office Visit Cardiology at [address] [phone] Joel Link MD [facility] [place] [address] 01/18/2025 10:15 AM EDT Office Visit Dermatology at [address] [phone] Mathew Fernando MD [address] [place] [address] DERMATOLOGY [place], [place] [id number] documented as of this encounter Visit Diagnoses Not on filedocumented in this encounter Care Teams Recreation Coordinator Relationship Specialty Start Date End Date Blanco Myles MD [address] [place] [address] PCP - General Family Medicine 03/20/23 documented as of this encounter
--- OUTSIDE RECORDS SUMMARY | 2024-03-10 10:52 | XMS_ITS | Encounter Summary ---
[place] [address] Care Team Providers Care Exercise Physiology Professor Name Role Phone Blanco Myles MD Primary Care Provider [phone] Encounter Details Date Type Department Care Team (Late st Contact Info) Description 01/26/2024 Telephone Dermatology at [address] [phone] Marlyn Dean RN Social History Tobacco Use Types Packs/Day [...] encounter Miscellaneous Notes * Telephone Encounter - Marlyn Dean RN - 01/26/2024 1:17 PM EDT Patient called and informed of his pathology results. Patient had a shave C&D biopsy right mid cheek on 01/16/2024. Diagnosis: Basal cell carcinoma. Dr. Fernando's recommendation. No further treatment is needed and patient to follow up in one year for repeat skin check. Patient has an appointment scheduled for 01/18/2025. Patient informed and he stated that he understood. Patient reminded of his follow up appointment on01/18/2025. documented in this encounter Plan of Treatment Upcoming Encounters Date Type Department Care Team (Late st Contact Info) Description 04/05/2024 3:00 PM EDT Office Visit Cardiology at [address] [place] [phone] Joel Link MD [facility] [place] [address] 01/18/2025 10:15 AM EDT Office Visit Dermatology at [address] [place] [phone] Mathew Fernando MD [address] [place] [address] DERMATOLOGY [place], [place] [phone] documented as of this encounter Visit Diagnoses Not on filedocumented in this encounter Care Teams Exercise Physiology Professor Relationship Specialty Start Date End Date Blanco Myles MD [address] [place] [address] PCP - General Family Medicine 03/20/23 documented as of this encounter
--- OUTSIDE RECORDS SUMMARY | 2024-03-10 10:52 | XMS_ITS | Encounter Summary ---
Author Organization [facility] [place] [address] Care Team Providers Care Csr Retail Name Role Phone Blanco yMles MD Primary Care Provider [phone] Encounter Details Date Type Department Care Team (Latest Contact Info) Description 01/16/2024 Travel Social History Tobacco Use Types Packs/Day Years Used Date Smoking Tobacco: Former Cigarettes Q uit: 11/17/1999 Smokeless Tobacco: Never Alcohol Use Standard Drinks/Week Comments No 0 (1 standard drink = 0.6 oz pur e alcohol) Sex and Gender Information Value Date Recorded Sex Assigned at Not on file Gender Identity Not on file Sexual Orientation Not on file documented as of this encounter Plan of Treatment Upcoming Encounters Date Type Department Care Team (Late st Contact Info) Description 04/05/2024 3:00 PM EDT Office Visit Cardiology at [address] [phone] Joel Link MD [facility] [place] [address] 01/18/2025 10:15 AM EDT Office Visit Dermatology at [address] [phone] Mathew Fernando MD [address] [place] [address] [place] [address] documented as of this encounter Visit Diagnoses Not on filedocumented in this encounter Care Teams Csr Retail Relationship Specialty Start Date End Date Blanco Myles MD [address] [place] [address] PCP - General Family Medicine 03/20/23 documented as of this encounter
--- OUTSIDE RECORDS SUMMARY | 2024-03-10 10:52 | XMS_ITS | Encounter Summary ---
[place] [address] Care Team Providers Care Gauge And Instrument Inspector Name Role Phone Blanco Myles MD Primary Care Provider [phone] Reason for Visit * Reason Comments Annual Exam Encounter Details Date Type Department Care Team (Late st Contact Info) Description 01/16/2024 10:30 AM EDT Office Visit Dermatology at [address] [phone] Mathew Fernando MD [address] [place] [address] [place] [address] [place] (actinic keratosis); History of SCC (squamous [...] Progress Notes * Mathew Fernando MD - 01/16/2024 10:30 AM EDT Problem: 1. Annual skin checkup 2. History of extensive sun exposure living in [place] 3. History of BCCA's right upper back treated in [place] 4. History of BCCA left medial cheek excised September 2020 5. 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 Status post 5-FU twice daily for 1 week on, 3 weeks off for 3 cycles December 2022 Erwin follows up for repeat check, he has been doing well. Again today he is walking with a walker. He recently had a stroke. Physical examination reveals an 83-year-old gentleman has had a wonderful response with 5-FU cream and clearance of the diffuse actinic's previously on his face. The has a pearly excoriated papule onthe right mid cheek concerning for a possible BCCA. The left anterior shoulder SCC treatment site from last year is healed beautifully without evidence of recurrence. Assessment plan: Benign skin examination 1. Patient reassured about his benign skin examination. No tumors seen at all sites 2. Wonderful response of actinic's on face to 5-FU. No treatment required in that regard today. Rule out BCC versus SCCA right mid cheek, new site 1. After obtaining for consent site was anesthetized and shave C&D x 3 performed 2. Triple antibiotic, bandage placed. After curettage site measured 6 mm in diameter. 3. Wound care instructions and supplies given 4. Return to clinic in 1 year for repeat check. CC: MD Blanco Guzman MD documented in this encounter Plan of Treatment Upcoming Encounters Date Type Department Care Team (Late st Contact Info) Description 04/05/2024 3:00 PM EDT Office Visit Cardiology at [address] [phone] Joel Link MD [facility] [place] [address] 01/18/2025 10:15 AM EDT Office Visit Dermatology at [address] [phone] Mathew Fernando MD [address] [place] [address] DERMATOLOGY [place], [place] [id number] documented as of this encounter Visit Diagnoses Diagnosis AK (actinic keratosis) Actinic keratosis History of SCC (squamous cell carcinoma) of skin Personal history of other malignant neoplasm of skin History of basal cell carcinoma Personal history of other malignant neoplasm of skin documented in this encounter Care Teams Gauge And Instrument Inspector Relationship Specialty Start Date End Date Blanco Myles MD [address] [place] [address] PCP - General Family Medicine 03/20/23 documented as of this encounter
--- OUTSIDE RECORDS SUMMARY | 2024-03-10 10:52 | XMS_ITS | Encounter Summary ---
Author Organization [facility] [place] [place] [address] Care Team Providers Care Head Tennis Coach Name Role Phone Blanco Myles MD Primary Care Provider [phone] Encounter Details Date Type Department Care Team (Latest Contact Info) Description 06/03/2023 10:00 AM EDT Ext Surgery or Single Event [address] [phone] Joel Link MD [facility] [place] [address] PAF (paroxysmal atrial fibrillation) Social History Tobacco [...] as of this encounter Progress Notes * Joel Link MD - 06/03/2023 10:00 AM EDT Direct Current Cardioversion Procedure Note Patient Name: Tra Brothers III : [id number] Date of Procedure: 06/03/2023 Time of Procedure: 1000h Attending: Joel Link MD Confirmation of 100% compliance with oral anti-coagulation for at least 3 weeks leading up to today, without bleeding issues, was made prior to proceeding. After obtaining informed consent, the patient underwent direct current cardioversion using the biphasic device under brief general anesthesia provided by the anesthesia team. The electrode pads were placed in the following position: Right anterior, left scapular The patient received 1 synchronized discharge(s) and the maximal discharge at 150 joules. Normal Sinus Rhythm was restored successfully: Yes Complications: None Joel Link MD documented in this encounter Plan of Treatment Upcoming Encounters Date Type Department Care Team (Late st Contact Info) Description 04/05/2024 3:00 PM EDT Office Visit Cardiology at [address] [phone] Joel Link MD [facility] [place] [address] 01/18/2025 10:15 AM EDT Office Visit Dermatology at [address] [phone] Mathew Fernando MD [address] [place] [address] [place] [address] documented as of this encounter Procedures Procedure Name Priority Date/Time Associated Diagnosis Comments ECG SCAN 06/03/2023 12:00 AM EDT documented in this encounter Results * SCAN DOC: ECG (06/03/2023 12:00 AM EDT) Narrative 06/03/2023 12:00 AM EDT Ordered by an unspecified provider. Scanning Provider MEDIA MGR SCAN EXT O RDR/RSLT documented in this encounter Visit Diagnoses Diagnosis PAF (paroxysmal atrial fibrillation) Atrial fibrillation documented in this encounter Care Teams Head Tennis Coach Relationship Specialty Start Date End Date Blanco Myles MD [address] [place] [address] PCP - General Family Medicine 03/20/23 documented as of this encounter
--- OUTSIDE RECORDS SUMMARY | 2024-03-10 10:52 | XMS_ITS | Encounter Summary ---
Author Organization [facility] [place] [address] Care Team Providers Care Agriculture Teacher Name Role Phone Blanco Myles MD Primary Care Provider [phone] Reason for Visit * Diagnostic Test (Routine) - Closed Specialty Diagnoses / Procedures Referred By Contac t Referred To Contact Cardiology Diagnoses Cardiomyopathy, ischemic Procedures Echocardiogram Transthoracic Joel Link MD [facility] [place] [address] [facility] [address] [place] [address] [place] [address] Referral ID Status Reason Start Date Expiration Date V isits Requested Visits Authorized [id number] Closed Specialty Service Requested 03/20/2023 09/16/2023 1 1 Encounter Details Date Type Department Care Team (Latest Contact Info) Description 04/22/2023 5:40 PM EDT Ext Surgery or Single Event [address] [place] [phone] Joel Link MD [facility] [place] [address] Cardiomyopathy, ischemic Social History Tobacco Use Types Packs/Day Years [...] PM EDT Office Visit Cardiology at [address] [place] [address] Joel Link MD [facility] [place] [address] 01/18/2025 10:15 AM EDT Office Visit Dermatology at [place] [address] [facility] [place] [address] Mathew Fernando MD [address] [facility] [place] [address] documented as of this encounter Procedures Procedure Name Priority Date/Time Associated Diagnosis Comments ECHO SCAN (SCAN) 04/22/2023 12:0 0 AM EDT documented in this encounter Results * SCAN DOC: ECHO (04/22/2023 12:00 AM EDT) Anatomical Region Laterality Modality Cardiac Other Narrative 04/22/2023 12:00 AM EDT Ordered by an unspecified provider. Scanning Provider MEDIA MGR SCAN EXT O RDR/RSLT documented in this encounter Visit Diagnoses Diagnosis Cardiomyopathy, ischemic Other specified forms of chronic ischemic heart disease documented in this encounter Care Teams Agriculture Teacher Relationship Specialty Start Date End Date Blanco Myles MD [address] [place] [address] PCP - General Family Medicine 03/20/23 documented as of this encounter
--- OUTSIDE RECORDS SUMMARY | 2024-03-10 10:52 | XMS_ITS | Encounter Summary ---
Author Organization [facility] [place] [address] Care Team Providers Care Clerical Office Worker Name Role Phone Karo Otero MD Primary Care Provider [phone] Encounter Details Date Type Department Care Team (Latest Contact Info) Description 01/14/2023 Travel Social History Tobacco Use Types Packs/Day [...] 3:00 PM EDT Office Visit Cardiology at [address] [phone] Joel Link MD [facility] [place] [address] 01/18/2025 10:15 AM EDT Office Visit Dermatology at [address] [phone] Mathew Fernando MD [address] [place] [address] [place] [address] documented as of this encounter Visit Diagnoses Not on filedocumented in this encounter Care Teams Clerical Office Worker Relationship Specialty Start Date End Date Karo Otero MD [address] [place] [address] PCP - General Family Medicine 02/11/17 03/19/23 documented as of this encounter
--- OUTSIDE RECORDS SUMMARY | 2024-03-10 10:52 | XMS_ITS | Encounter Summary ---
Author Organization [facility] [place] [address] Care Team Providers Care Mixing Technician Name Role Phone Blanco Myles MD Primary Care Provider [phone] Encounter Details Date Type Department Care Team (Late st Contact Info) Description 06/18/2023 Telephone Cardiology at [address] [phone] Joel Link MD [facility] [place] [address] Social History Tobacco Use Types Packs/Day Years [...] Telephone Encounter - Homar Mayorga RN - 06/18/2023 1:39 PM EDT Patient called to report that he was at his PCP office and he did an ECG, he was told he was in afib. We will attempt to get ECG from PCP. documented in this encounter Plan of Treatment Upcoming Encounters Date Type Department Care Team (Late st Contact Info) Description 04/05/2024 3:00 PM EDT Office Visit Cardiology at [address] [phone] Joel Link [place] [address] 01/18/2025 10:15 AM EDT Office Visit Dermatology at [address] [place] [address] Mathew Fernando MD [address] [facility] [place] [address] documented as of this encounter Visit Diagnoses Not on filedocumented in this encounter Care Teams Mixing Technician Relationship Specialty Start Date End Date Blanco Myles MD [address] [place] [address] PCP - General Family Medicine 03/20/23 documented as of this encounter
--- OUTSIDE RECORDS SUMMARY | 2024-03-10 10:52 | XMS_ITS | Encounter Summary ---
Author Organization [facility] [place] [address] Care Team Providers Care Forestry Patrolman Name Role Phone Karo Otero MD Primary Care Provider [phone] Encounter Details Date Type Department Care Team (Late st Contact Info) Description 07/06/2022 External [place] [address] Social History Tobacco Use Types Packs/Day Years [...] PM EDT Office Visit Cardiology at [address] [phone] Joel Link MD [facility] [place] [address] 01/18/2025 10:15 AM EDT Office Visit Dermatology at [address] [phone] Mathew Fernando MD [address] [place] [address] DERMATOLOGY [place], [place] [id number] documented as of this encounter Procedures Procedure Name Priority Date/Time Associated Diagnosis Comments ECG SCAN Routine 07/06/2022 documented in this encounter Results * Scan Doc: ECG (07/06/2022) Historical Provider MD IBRAHIM MGR SCAN EX T ORDR/RSLT documented in this encounter Visit Diagnoses Not on filedocumented in this encounter Care Teams Forestry Patrolman Relationship Specialty Start Date End Date Karo Otero MD [address] [place] [address] PCP - General Family Medicine 02/11/17 03/19/23 documented as of this encounter
--- OUTSIDE RECORDS SUMMARY | 2024-03-10 10:52 | XMS_ITS | Encounter Summary ---
[place] [address] Care Team Providers Care Boring Mill Operator Name Role Phone Karo Otero MD Primary Care Provider [phone] Encounter Details Date Type Department Care Team (Late Contact Info) Description 01/23/2023 Telephone Dermatology at [address] [phone] Marlyn Dean RN Social History [...] Telephone Encounter - Marlyn Dean RN - 01/23/2023 8:30 AM EDT Patient called and informed of his pathology results. Patient had a shave biopsy on 01/14/2023 left anterior shoulder. Diagnosis. Squamous cell carcinoma. Dr. Fernando's recommendation is that no further treatment is needed and patient to follow up in one year. Patient does have a follow up appointment on 01/16/2024. Patient informed and stated that he understood. documented in this encounter Plan of Treatment Upcoming Encounters Date Type Department Care Team (Late Contact Info) Description 04/05/2024 3:00 PM EDT Office Visit Cardiology at [address] [place] [phone] Joel Link MD [facility] [place] [address] 01/18/2025 10:15 AM EDT Office Visit Dermatology at [place] [address] [facility] [place] [address] Mathew Fernando MD [address] [facility] [place] [address] documented as of this encounter Visit Diagnoses Not on filedocumented in this encounter Care Teams Boring Mill Operator Relationship Specialty Start Date End Date Karo Otero MD [address] [place] [address] PCP - General Family Medicine 02/11/17 03/19/23 documented as of this encounter
--- OUTSIDE RECORDS SUMMARY | 2024-03-10 10:52 | XMS_ITS | Encounter Summary ---
Author Organization [facility] [place] [address] Care Team Providers Care Machine Scallop Cutter Name Role Phone Blanco Myles MD Primary Care Provider [phone] Encounter Details Date Type Department Care Team (Late st Contact Info) Description 01/13/2024 Telephone Cardiology at [address] [phone] Joel Link [address] [facility] [place] [place] [address] Social History Tobacco Use Types Packs/Day Years [...] Telephone Encounter - Homar Mayorga RN - 01/19/2024 9:[address] Link: If he would like a FUV next non-urgent spot would be OK * Telephone Encounter - Homar Mayorga RN - 01/13/2024 3:32 PM EDT Records from [facility] and [facility]. * Telephone Encounter - Homar Mayorga RN - 01/13/2024 11:29 AM EDT Patient was in [facility] in November for a stroke, and then at [facility] in [facility]. Will request records. At present, no future appointments scheduled with Dr. Link. * Telephone Encounter - Xochitl Osborn - 01/13/2024 10:37 AM EDT Patient called because he wants to make an appointment with Dr Link. He has been in rehab. He wants to make sure his medications are correct and he wants a check up with the doctor. Please call him @ [phone] documented in this encounter Plan of Treatment Upcoming Encounters Date Type Department Care Team (Late st Contact Info) Description 04/05/2024 3:00 PM EDT Office Visit Cardiology at [address] [phone] Joel Link MD [facility] [place] [address] 01/18/2025 10:15 AM EDT Office Visit Dermatology at [address] [phone] Mathew Fernando MD [address] [place] [address] [place] [address] documented as of this encounter Visit Diagnoses Not on filedocumented in this encounter Care Teams Machine Scallop Cutter Relationship Specialty Start Date End Date Blanco Myles MD [address] [place] [address] PCP - General Family Medicine 03/20/23 documented as of this encounter
--- OUTSIDE RECORDS SUMMARY | 2024-03-10 10:52 | XMS_ITS | Encounter Summary ---
Author Organization [facility] [place] [address] Care Team Providers Care Casino Enforcement Agent Name Role Phone Karo Otero MD Primary Care Provider [phone] Encounter Details Date Type Department Care Team (Late st Contact Info) Description 01/14/2023 Refill Dermatology at [address] [phone] Shana Lowe, MICA [employer] Social History Tobacco Use Types Packs/Day Years [...] 3:00 PM EDT Office Visit Cardiology at [address] [phone] Joel Link [place] [address] 01/18/2025 10:15 AM EDT Office Visit Dermatology at [address] [phone] Mathew Fernando MD [address] [place] [address] [place] [address] documented as of this encounter Visit Diagnoses Not on filedocumented in this encounter Care Teams Casino Enforcement Agent Relationship Specialty Start Date End Date Karo Otero MD [address] [place] [address] PCP - General Family Medicine 02/11/17 03/19/23 documented as of this encounter
--- OUTSIDE RECORDS SUMMARY | 2024-03-10 10:53 | XMS_ITS | Encounter Summary ---
Author Organization [facility] [place] [address] Care Team Providers Care Ela Teacher Name Role Phone Karo Otero MD Primary Care Provider [phone] Reason for Visit * Reason Comments Medication Refill Encounter Details Date Type Department Care Team (Late st Contact Info) Description 11/19/2018 Refill Cardiology at [address] [place] [address] Lara Aguero APRN [facility] [place] [address] Medication Refill Social History Tobacco Use Types Packs/Day Years [...] 3:00 PM EDT Office Visit Cardiology at [address] [place] [address] Joel Link MD [facility] [place] [address] 01/18/2025 10:15 AM EDT Office Visit Dermatology at [address] [place] [address] Mathew Fernando MD [address] [facility] [place] [address] documented as of this encounter Visit Diagnoses Not on filedocumented in this encounter Care Teams Ela Teacher Relationship Specialty Start Date End Date Karo Otero MD [address] [place] [address] PCP - General Family Medicine 02/11/17 03/19/23 documented as of this encounter
--- OUTSIDE RECORDS SUMMARY | 2024-03-10 10:53 | XMS_ITS | Encounter Summary ---
Author Organization [facility] [place] [address] Care Team Providers Care Painter Chassis Name Role Phone Karo Otero MD Primary Care Provider [phone] Encounter Details Date Type Department Care Team (Late st Contact Info) Description 06/08/2020 Telephone Cardiology at [address] [phone] Joel Link MD [facility] [place] [address] Social History Tobacco Use Types Packs/Day Years [...] encounter Miscellaneous Notes * Telephone Encounter - Betty Del Real RN - 06/08/2020 10:06 AM EDT EKG completed documented in this encounter Plan of Treatment Upcoming Encounters Date Type Department Care Team (Late st Contact Info) Description 04/05/2024 3:00 PM EDT Office Visit Cardiology at [address] [phone] Joel Link MD [facility] [place] [address] 01/18/2025 10:15 AM EDT Office Visit Dermatology at [place] [address] [facility] [place] [phone] Mathew Fernando MD [address] [facility] [place] [address] documented as of this encounter Visit Diagnoses Not on filedocumented in this encounter Care Teams Painter Chassis Relationship Specialty Start Date End Date Karo Otero MD [address] [place] [address] PCP - General Family Medicine 02/11/17 03/19/23 documented as of this encounter
--- OUTSIDE RECORDS SUMMARY | 2024-03-10 10:53 | XMS_ITS | Encounter Summary ---
Author Organization [facility] [place] [address] Care Team Providers Care Art Manager Name Role Phone Krao Otero MD Primary Care Provider [phone] Encounter Details Date Type Department Care Team (Late st Contact Info) Description 06/01/2019 Telephone Cardiology at [address] [phone] Joel Link MD [facility] [place] [address] Social History Tobacco Use Types Packs/Day Years [...] encounter Miscellaneous Notes * Telephone Encounter - Beronica Garcia - 06/01/2019 4:20 PM EDT appt scheduled called [facility] informing Patient * Telephone Encounter - Homar Mayorga RN - 06/01/2019 3:47 PM EDT Waiting on records from [facility]. * Telephone Encounter - Beronica Garcia - 06/01/2019 2:41 PM EDT Patient being D/C from [facility] today for ventricular Bigeminy. Dr Romero is asking for an appt for patient CHARLIE. They will fax [facility] notes. #[phone] documented in this encounter Plan of Treatment Upcoming Encounters Date Type Department Care Team (Late st Contact Info) Description 04/05/2024 3:00 PM EDT Office Visit Cardiology at [address] [place] [phone] Joel Link MD [facility] [place] [address] 01/18/2025 10:15 AM EDT Office Visit Dermatology at [address] [place] [address] Mathew Fernando MD [address] [place] [address] [place] [address] documented as of this encounter Visit Diagnoses Not on filedocumented in this encounter Care Teams Art Manager Relationship Specialty Start Date End Date Karo Otero MD [address] [place] [address] PCP - General Family Medicine 02/11/17 03/19/23 documented as of this encounter
--- OUTSIDE RECORDS SUMMARY | 2024-03-10 10:53 | XMS_ITS | Encounter Summary ---
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 male. Chief Complaint Patient presents with ??? Follow-up Discharge [facility] for Ventricular Bigeminy HPI 78 M presents on follow-up for ventricular bigeminy. Last seen by me 03/2019, at which time a carotid was ordered which demonstrated mild disease bilaterally. He went to [facility] 05/31/2019 with fatigue; this was noted to be met with a measured HR at home of 30s. At the ED, he was found to have ventricular bigeminy, and metoprolol was increased to 50mg TDD. Since then, he denies feeling like he has been back in ventricular bigeminy, which he experienced as fatigue and dizziness. However, He does note continued exertional intolerance after the increase in metoprolol. He notes that this feels similar to when his metoprolol was at 50mg TDD prior, and needed to be decreased to 25mg TDD Otherwise, exertion is without exertional chest pain, dyspnea, presyncope. Denies LH, syncope, palpitations, orthopnea, pnd, weight gain, edema. Review of Systems 11 point ros either negative or per hpi Allergies Allergen Reactions ??? Oxycodone Nausea Only ??? Pollen Extracts Current Outpatient Medications Medication Sig Dispense Refill ??? nitroGLYcerin (NITROSTAT) 0.[address], [address] 1 TABLET UNDER THE TONGUE EVERY 5 MINUTES NEEDED FOR CHEST PAIN 25 tablet 3 ??? polyethylene glycol (MIRALAX) 17 gram Powder in Packet Take 17 g by mouth daily as needed. ??? losartan (COZAAR) 50 mg Tablet Take 50 mg by mouth daily. ??? docosahexanoic acid/epa (FISH OIL ORAL) Take 1 capsule by mouth daily. ??? multivitamin (THERAGRAN) Tablet Take 1 tablet by mouth daily. ??? cyanocobalamin, vitamin B-12, (VITAMIN B-12 ORAL) Take 1 tablet by mouth daily. ??? cholecalciferol, Vitamin D3, (CHOLECALCIFEROL, VITAMIN D3,) 2,000 unit Capsule Take 1 capsule by mouth daily. ??? atorvastatin (LIPITOR) 80 mg Tablet Take 1 tablet by mouth every evening. 90 tablet 3 ??? aspirin 81 mg Tablet, Delayed Release (E.C.) Take 81 mg by mouth daily. ??? buPROPion (WELLBUTRIN SR OR ZYBAN) 150 mg Tablet Sustained Release 12 hr take 1 tablet by mouthtwice a day 0 ??? temazepam (RESTORIL) 15 mg Capsule take 1 capsule by mouth at bedtime 0 ??? acebutolol (SECTRAL) 200 mg Capsule Take 1 capsule by mouth 2 times daily. 60 capsule 1 No current facility-administered medications for this visit. Patient Active Problem List Diagnosis ??? Ventricular bigeminy ??? Cardiomyopathy, ischemic 11/2017: Preserved EF (64%), with lateral HK. ??? Bilateral carotid artery stenosis 03/2019: auscultation of carotid bruit on left 04/21/2019: carotid US demonstrates mild stenosis (< 50%) in bilateral proximal ICA ??? Anemia of chronic renal failure, stage 3 (moderate) ??? 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 EF 64%, post/lat hypokinesis, mild AI 04/2019: EF 64%, no wmas ??? Essential hypertension ??? HLD (hyperlipidemia) ??? AK (actinic keratosis) Objective: Physical Exam BP 116/73 (BP Location (NBP): Left arm, Patient Position: Standing) Pulse 50 Comment: per ekg Ht 180.3 cm (5' 11) Wt 97.5 kg (215 lb) BMI 29.99 kg/m?? General : pleasant male in NAD Cor: nick reg, s1/s2 of nl character and amplitude, no mrg. jvp not elevated. Left carotid with bruit Pulm: ctab Ab: soft, nt, nd Ext: no cce. Dp/pt ++ Neuro: without focal deficit Ekg: sb via 1*AVNB 50. Assessment and Plan: Ventricular bigeminy Patient does indeed seem symptomatic of this. I think it was reasonable to trial the increase in metoprolol; however, patient had recurrence of previous intolerance to the dosage. Will thus attempt abeta latesha with RADHA properties - D/C metoprolol - start acebutolol 200mg BID patient to call later this week with HR/sx check in Future Appointments Date Time Provider Department Center 08/30/2019 10:00 AM Mathew Fernando MD [facility] Derm [facility] 10/18/2019 10:20 AM Joel Link MD [facility] Joel MD Nikolay documented in this encounter Miscellaneous Notes * Assessment & Plan Note - Joel Link MD - 06/07/2019 12:57 PM EDT Associated Problem(s): Ventricular bigeminy Patient does indeed seem symptomatic of this. I think it was reasonable to trial the increase in metoprolol; however, patient had recurrence of previous intolerance to the dosage. Will thus attempt abeta latesha with RADHA properties - D/C metoprolol - start acebutolol 200mg BID documented in this encounter Plan of Treatment Upcoming Encounters Date Type Department Care Team (Late st Contact Info) Description 04/05/2024 3:00 PM EDT Office Visit Cardiology at [address] [phone] Joel Link MD [facility] [place] [address] 01/18/2025 10:15 AM EDT Office Visit Dermatology at [address] [phone] Mathew Fernando MD [address] [place] [address] DERMATOLOGY [place], [place] [phone] documented as of this encounter Procedures Procedure Name Priority Date/Time Associated Diagnosis Comments EKG 12-LEAD Routine 06/07/2019 11:44 AM EDT documented in this encounter Results * EKG 12 Lead (06/07/2019 11:44 AM EDT) Ventricular rate 50 BPM MUSE SYSTEM Atrial Rate 50 BPM MUSE SYSTEM P-R Interval 256 ms MUSE SYSTEM QRS Duration 80 ms MUSE SYSTEM Q-T Interval 448 ms MUSE SYSTEM QTC Calculated (Bezet) 408 ms MUSE SYSTEM Calculated P [place] 69 degrees MUSE SYSTEM Calculated R [place] -3 degrees MUSE SYSTEM Calculated T [place] 34 degrees MUSE SYSTEM INTERPRETATION Sinus bradycardia with 1st degree A-V block Otherwise normal ECG When compared with ECG of 19-NOV-2017 10:46, QT has shortened Confirmed by MD Link Daniel ([id number]) on 06/08/2019 10:28:56 AM MUSE SYSTEM 06/07/2019 11:4 4 AM EDT 06/08/2019 10:28 AM EDT Unknown ECG ORDERABLES MUSE SYSTEM documented in this encounter Visit Diagnoses Diagnosis 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
--- OUTSIDE RECORDS SUMMARY | 2024-03-10 10:53 | XMS_ITS | Encounter Summary ---
[place] [address] Care Team Providers Care Neon Sign Maker Name Role Phone Karo Otero MD Primary Care Provider [phone] Reason for Visit * Reason Comments Follow-up 6 month f/u HTN, Hyp erlipidemia, CAD, no complaints except dry mouth Encounter Details Date Type Department Care Team (Late st Contact Info) Description 10/06/2018 9:40 AM EST Office Visit Cardiology at [address] [phone] Sukh Mishra Jr., MD [address] [place] [phone] Hyperlipidemia, unspecified hyperlipidemia type; Essential hypertension; ASCVD (arteriosclerotic cardiovascular disease) Social History Tobacco [...] Sign Reading Time Taken Comments Blood Pressure 136/80 10/06/2018 9:51 AM EST Pulse 60 10/06/2018 9:51 AM EST Temperature - - Respiratory Rate - - Oxygen Saturation - - Inhaled Oxygen Concentration - - Weight 96.2 kg (212 lb) 10/06/2018 9:51 AM EST Height 180.3 cm (5' 11) 10/06/2018 9:51 AM EST Body Mass Index 29.57 10/06/2018 9:51 AM EST documented in this encounter Progress Notes * Sukh Mishra Jr., MD - 10/06/2018 9:40 AM EST Subjective: Patient ID: Tra Brothers III is a 77 y.o. male. Chief Complaint Patient presents with ??? Follow-up 6 month f/u HTN, Hyperlipidemia, CAD, no complaints except dry mouth HPI He is doing chores and swimming regularly. He has had no chest pain or limiting dyspnea. He denies palpitations but has occasional orthostatic dizziness. He has no edema, PND or orthopnea. His energy level is good. Review of Systems increased bruising, no bleeding, denies other issues Allergies Allergen Reactions ??? Oxycodone Nausea Only ??? Pollen Extracts Current Outpatient Medications Medication Sig Dispense Refill ??? polyethylene glycol (MIRALAX) 17 gram Powder in Packet Take 17 g by mouth Daily. ??? losartan (COZAAR) 50 mg Tablet Take 50 mg by mouth daily. ??? metoprolol tartrate (LOPRESSOR) 25 mg Tablet Take 12.5 mg by mouth 2 times daily. ??? docosahexanoic acid/epa (FISH OIL ORAL) Take 1 capsule by mouth daily. ??? clopidogrel (PLAVIX) 75 mg Tablet Take 1 tablet by mouth daily for 45 days. 30 tablet 1 ??? multivitamin (THERAGRAN) Tablet Take 1 tablet by mouth daily. ??? cyanocobalamin, vitamin B-12, (VITAMIN B-12 ORAL) Take 1 tablet by mouth daily. ??? cholecalciferol, Vitamin D3, (CHOLECALCIFEROL, VITAMIN D3,) 2,000 unit Capsule Take 1 capsule by mouth daily. ??? amoxicillin (AMOXIL) 500 mg Capsule 2,000 mg as needed. Before dental visits 0 ??? nitroGLYcerin (NITROSTAT) 0.4 mg Tablet, Sublingual Place 1 tablet under the tongue every 5 minutes as needed for Chest pain. 25 tablet 3 ??? atorvastatin (LIPITOR) 80 mg Tablet Take [...] 1 capsule by mouth at bedtime 0 No current facility-administered medications for this visit. Patient Active Problem List Diagnosis ??? Anemia of chronic renal failure, stage 3 (moderate) ??? Non-ST elevation myocardial infarction (NSTEMI) 11/2017: mild diffuse LM and RCA, 75% mid LAD-> JENNI, 95% prox OM1-> JENNI EF 64%, post/lat hypokinesis, mild AI ??? Essential hypertension ??? HLD (hyperlipidemia) ??? History of SCC (squamous cell carcinoma) of skin ??? History of basal cell carcinoma ??? AK (actinic keratosis) Objective: Physical Exam BP 136/80 (BP Location (NBP): Left arm, Patient Position: Sitting) Pulse 60 Ht 180.3 cm (5' 11) Wt 96.2 kg (212 lb) BMI 29.57 kg/m?? NAD Scattered bruises No JVD/HJR Chest clear Cor RR, no murmur Abd benign Ext no edema Assessment and Plan: No limiting angina- encouraged to keep up activity. He can stop plavix on 11/20 as that is 1 year post JENNI Good BP Lipids- reportedly good- will track down labs Follow up 6 months documented in this encounter Plan of Treatment Upcoming Encounters Date Type Department Care Team (Late st Contact Info) Description 04/05/2024 3:00 PM EDT Office Visit Cardiology at [address] [place] [phone] Joel Link MD [facility] [place] [address] 01/18/2025 10:15 AM EDT Office Visit Dermatology at [address] [place] [phone] Mathew Fernando MD [address] [place] [address] DER[address] [place], [place] [phone] documented as of this encounter Visit Diagnoses Diagnosis Hyperlipidemia, unspecified hyperlipidemia type Essential hypertension Unspecified essential hypertension ASCVD (arteriosclerotic cardiovascular disease) Unspecified cardiovascular disease documented in this encounter Care Teams Neon Sign Maker Relationship Specialty Start Date End Date Karo Otero MD [address] [place] [address] PCP - General Family Medicine 02/11/17 03/19/23 documented as of this encounter
--- OUTSIDE RECORDS SUMMARY | 2024-03-10 10:53 | XMS_ITS | Encounter Summary ---
Author Organization [facility] [place] [address] Care Team Providers Care Casino Shift Manager Name Role Phone Karo Otero MD Primary Care Provider [phone] Reason for Visit * Reason Comments Ventricular Arrhythmia Ventricular Bigem iny Coronary Artery Disease Encounter Details Date Type Department Care Team (Late st Contact Info) Description 01/17/2021 10:20 AM EDT Office Visit Cardiology at [address] [place] [phone] Joel Link MD [facility] [place] [address] Coronary artery disease involving [place] coronary artery of [place] heart without angina pectoris; Cardiomyopathy, ischemic; Hyperpiesia; Ventricular bigeminy Social History Tobacco Use Types [...] Sign Reading Time Taken Comments Blood Pressure 124/82 01/17/2021 10:15 AM EDT Pulse 81 01/17/2021 10:15 AM EDT Temperature - - Respiratory Rate - - Oxygen Saturation - - Inhaled Oxygen Concentration - - Weight 92.7 kg (204 lb 6.4 oz) 01/17/2021 10:11 AM EDT Height 180.3 cm (5' 11) 01/17/2021 10:11 AM EDT Body Mass Index 28.51 01/17/2021 10:11 AM EDT documented in this encounter Progress Notes * Joel Link MD - 01/17/2021 10:20 AM EDT Images from the original note were not included. Subjective: Patient ID: Tra Brothers III is a 80 y.o. male who presents on follow-up for: Chief Complaint Patient presents with ??? Ventricular Arrhythmia Ventricular Bigeminy ??? Coronary Artery Disease HPI Last seen by me 07/2020, at which time sectral was stopped due to exertional fatigue and loss of stamina. Since then, he has been doing great. He is back to his baseline level of good activity without exertional symptomatology. He does not feel palpitations or extra heart beats bp well controlled at home Takes GTN proactively prior to very strenuous activity such as shoveling snow. Current Outpatient Medications: ??? nitroGLYcerin (Nitrostat) 0.4 mg Tablet, Sublingual, PLACE 1 TABLET UNDER THE TONGUE IF NEEDED EVERY 5 MINUTES IF NEEDED FOR CHEST PAIN, Disp: 25 tablet, Rfl: 3 ??? atorvastatin (Lipitor) 80 mg Tablet, Take 80 mg by mouth every evening., Disp: , Rfl: ??? fluticasone propionate (FLONASE) 50 mcg/actuation [place], Suspension, 2 sprays by Each Nare route daily as needed., Disp: , Rfl: ??? irbesartan-hydrochlorothiazide (AVALIDE) 150-12.5 mg Tablet, Take 1 tablet by mouth daily., Disp: , Rfl: ??? polyethylene glycol (MIRALAX) 17 gram Powder in Packet, Take 17 g by mouth daily as needed., Disp: , Rfl: ??? docosahexanoic acid/epa (FISH OIL ORAL), Take 1 capsule by mouth daily., Disp: , Rfl: ??? multivitamin (THERAGRAN) Tablet, Take 1 tablet by mouth daily., Disp: , Rfl: ??? cholecalciferol, Vitamin D3, (CHOLECALCIFEROL, VITAMIN D3,) 2,000 unit Capsule, Take 1 capsule by mouth daily., Disp: , Rfl: ??? aspirin 81 mg Tablet, Delayed Release (E.C.), Take 81 mg by mouth daily., Disp: , Rfl: ??? buPROPion (WELLBUTRIN SR OR ZYBAN) 150 mg Tablet Sustained Release 12 hr, take 1 tablet by mouth twice a day, Disp: , Rfl: 0 ??? temazepam (RESTORIL) 15 mg Capsule, take 1 capsule by mouth at bedtime, Disp: , Rfl: 0 Patient Active Problem List Diagnosis ??? CKD (chronic kidney disease) ??? De Quervain's tenosynovitis, left ??? Depression ??? Left knee DJD ??? 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 ??? Combined forms of age-related cataract of both eyes Added automatically from request for surgery [id number] Added automatically from request for surgery [id number] ??? Ventricular bigeminy ??? Cardiomyopathy, ischemic 11/2017: Preserved EF (64%), with lateral HK. 04/2019: EF 64%, no wmas ??? Bilateral carotid artery stenosis 03/2019: auscultation of carotid bruit on left 04/21/2019: carotid US demonstrates mild stenosis (< 50%) in bilateral proximal ICA ??? Anemia of chronic renal failure, stage 3 (moderate) ??? CAD (coronary artery disease) 11/2017 (NSTE-ACS): mild diffuse LM and RCA, 75% mid LAD-> JENNI, 95% prox OM1-> JENNI. EF 64%, post/lat hypokinesis, mild AI ??? Hyperpiesia ??? HLD (hyperlipidemia) Objective: BP 124/82 (BP Location (NBP): Right arm, Patient Position: Standing, BP Cuff Sizes: Adult (25-34 cm)) Pulse 81 Ht 180.3 cm (5' 11) Wt 92.7 kg (204 lb 6.4 oz) BMI 28.51 kg/m?? Gen: pleasant male in NAD Cor: rrr, s1/s2 of nl character and amplitude, no m/r/g. Estimated RAP not elevated. Carotids with normal upstroke without bruit. Pulm: CTAB. Normal diaphragmatic movement without use of accessory muscles Assessment and Plan: CAD (coronary artery disease) No angina per history. - Anti-Thrombosis: asa 81 - Statin: lipitor 80 - Anti-anginals: GTN PRN. It is reasonable to take one proactively prior to strenuous exercise Cardiomyopathy, ischemic No failure by history nor exam. 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 Continue expectant management. RTC 12 months Joel Link MD documented in this encounter Miscellaneous Notes * Assessment & Plan Note - Joel Link MD - 01/17/2021 10:58 AM EDT Associated Problem(s): Ventricular bigeminy Has not had recurrence since stopping the Sectral for exertional fatigue. Continue expectant management. * Assessment & Plan Note - Joel Link MD - 01/17/2021 10:57 AM EDT Associated Problem(s): Hyperpiesia Well controlled on current regimen - Irbesartan 150 - hctz 12.5 * Assessment & Plan Note - Joel Link MD - 01/17/2021 10:56 AM EDT Associated Problem(s): Cardiomyopathy, ischemic No failure by history nor exam. - Diuresis: none - Cardioprotection: irbesartan 150 - Devices: none indicated * Assessment & Plan Note - Joel Link MD - 01/17/2021 10:55 AM EDT Associated Problem(s): ASCVD (arteriosclerotic cardiovascular disease) No angina per history. - Anti-Thrombosis: asa 81 - Statin: lipitor 80 - Anti-anginals: GTN PRN. It is reasonable to take one proactively prior to strenuous exercise documented in this encounter Plan of Treatment Upcoming Encounters Date Type Department Care Team (Late st Contact Info) Description 04/05/2024 3:00 PM EDT Office Visit Cardiology at [address] [place] [address] Joel Link MD [facility] [place] [address] 01/18/2025 10:15 AM EDT Office Visit Dermatology at [address] [place] [phone] Mathew Fernando MD [address] [facility] DERMATOLOGY [place], [place] [phone] documented as of this encounter Visit Diagnoses Diagnosis Coronary artery disease involving [place] coronary artery of [place] heart without angina pectoris Cardiomyopathy, ischemic Other specified forms of chronic ischemic heart disease Hyperpiesia Unspecified essential hypertension Ventricular bigeminy Other specified cardiac dysrhythmias documented in this encounter Care Teams Casino Shift Manager Relationship Specialty Start Date End Date Karo Otero MD [address] [place] [address] PCP - General Family Medicine 02/11/17 03/19/23 documented as of this encounter
--- OUTSIDE RECORDS SUMMARY | 2024-03-10 10:53 | XMS_ITS | Encounter Summary ---
Author Organization [facility] [place] [address] Care Team Providers Care Academic Success Coordinator Name Role Phone Karo Otero MD Primary Care Provider [phone] Encounter Details Date Type Department Care Team (Late st Contact Info) Description 07/01/2019 Telephone Cardiology at [address] [phone] Joel Link MD [facility] [place] [address] Social History Tobacco Use Types Packs/Day Years [...] Telephone Encounter - Bonnie Watson RN - 07/07/2019 12:47 PM EST Cardiac rehab orders are signed and faxed today. * Telephone Encounter - Bonnie Watson RN - 07/01/2019 9:39 AM EST Prescription refill sent to [facility] * Telephone Encounter - Beronica Garcia - 07/01/2019 8:21 AM EST Patient called saying new medication Acebutolol 200 mg capsules 2 daily is working Terrific. He is asking for a script for this to go to [facility] Mail order He is also asking for a Referral to Cardiac Rehab in [facility]. # [phone] documented in this encounter Plan of Treatment Upcoming Encounters Date Type Department Care Team (Late st Contact Info) Description 04/05/2024 3:00 PM EDT Office Visit Cardiology at [address] [place] [address] Joel Link MD [facility] [place] [address] 01/18/2025 10:15 AM EDT Office Visit Dermatology at [address] [place] [address] Mathew Fernando MD [address] [place] [address] [place] [address] documented as of this encounter Visit Diagnoses Not on filedocumented in this encounter Care Teams Academic Success Coordinator Relationship Specialty Start Date End Date Karo Otero MD [address] [place] [address] PCP - General Family Medicine 02/11/17 03/19/23 documented as of this encounter
--- OUTSIDE RECORDS SUMMARY | 2024-03-10 10:53 | XMS_ITS | Encounter Summary ---
Author Organization [facility] [place] [address] Care Team Providers Care Clinical Resource Manager Name Role Phone Karo Otero MD Primary Care Provider [phone] Reason for Visit * Reason Onset Date Comments Medication Refill 07/01/2019 Encounter Details Date Type Department Care Team (Late st Contact Info) Description 07/01/2019 Refill Cardiology at [address] [phone] Joel Link MD [facility] [place] [address] Medication Refill Social History Tobacco Use Types [...] PM EDT Office Visit Cardiology at [address] [phone] Joel Link MD [facility] [place] [address] 01/18/2025 10:15 AM EDT Office Visit Dermatology at [address] [place] [address] Mathew Fernando MD [address] [facility] [place] [address] documented as of this encounter Visit Diagnoses Diagnosis Essential hypertension Unspecified essential hypertension documented in this encounter Care Teams Clinical Resource Manager Relationship Specialty Start Date End Date Karo Otero MD [address] [place] [address] PCP - General Family Medicine 02/11/17 03/19/23 documented as of this encounter
--- OUTSIDE RECORDS SUMMARY | 2024-03-10 10:53 | XMS_ITS | Encounter Summary ---
Author Organization [facility] [place] [address] Care Team Providers Care Telephone Operators Supervisor Name Role Phone Karo Otero MD Primary Care Provider [phone] Reason for Visit * Reason Comments Coronary Artery Disease Ventricular Arrhythmia Ventricular Bigem iny Encounter Details Date Type Department Care Team (Latest Contact Info) Description 01/22/2022 10:00 AM EDT Office Visit Cardiology at [address] [phone] Joel Link MD [facility] [place] [address] Coronary artery disease involving [place] coronary artery of [place] heart without angina pectoris; ASCVD (arteriosclerotic cardiovascular disease); Hyperpiesia; Cardiomyopathy, ischemic; Ventricular bigeminy Social History Tobacco Use Types [...] Sign Reading Time Taken Comments Blood Pressure 147/92 01/22/2022 9:59 AM EDT Pulse 74 01/22/2022 9:59 AM EDT Temperature - - Respiratory Rate - - Oxygen Saturation - - Inhaled Oxygen Concentration - - Weight 93 kg (205 lb) 01/22/2022 9:59 AM EDT Height 180.3 cm (5' 11) 01/22/2022 9:59 AM EDT Body Mass Index 28.59 01/22/2022 9:59 AM EDT documented in this encounter Progress Notes * Joel Link MD - 01/22/2022 10:00 AM EDT Images from the original note were not included. Subjective: Patient ID: Tra Brothers III is a 81 y.o. male who presents on follow-up for: Chief Complaint Patient presents with ??? Coronary Artery Disease ??? Ventricular Arrhythmia Ventricular Bigeminy HPI Last seen by me 01/2021, at which time no changes were made. Since then, he has been doing well, though wasn't very active over the winter due to left ankle surgery in the beginning of the year. He has noted a decrease in energy over this interval, with less exertional capacity. No angina; takes GTN before exercise, which works well for him. Not bothered by ventricular bigeminy; notes it dissipates with activity No weight changes, orthopnea, pnd, edema Current Outpatient Medications: ??? valsartan (Diovan) 160 mg Tablet, Take 160 mg by mouth daily., Disp: , Rfl: ??? atorvastatin (Lipitor) 80 mg Tablet, Take 80 mg by mouth every evening., Disp: , Rfl: ??? fluticasone propionate (FLONASE) 50 mcg/actuation [place], Suspension, 2 sprays by Each Nare route daily as needed., Disp: , Rfl: ??? polyethylene glycol (MIRALAX) 17 gram Powder in Packet, Take 17 g by mouth daily as needed., Disp: , Rfl: ??? docosahexanoic acid/epa (FISH OIL ORAL), Take 1 capsule by mouth daily., Disp: , Rfl: ??? multivitamin (THERAGRAN) Tablet, Take 1 tablet by mouth daily., Disp: , Rfl: ??? cholecalciferol, Vitamin D3, 50 mcg (2,000 unit) Capsule, Take 1 capsule by mouth daily., Disp:, Rfl: ??? aspirin 81 mg Tablet, Delayed Release (E.C.), Take 81 mg by mouth daily., Disp: , Rfl: ??? buPROPion (WELLBUTRIN SR OR ZYBAN) 150 mg Tablet Sustained Release 12 hr, take 1 tablet by mouth twice a day, Disp: , Rfl: 0 ??? temazepam (RESTORIL) 15 mg Capsule, take 1 capsule by mouth at bedtime, Disp: , Rfl: 0 ??? nitroGLYcerin (Nitrostat) 0.4 mg Tablet, Sublingual, Place 1 tablet under the tongue every 5 minutes as needed for Chest pain (x 3)., Disp: 25 tablet, Rfl: PRN Patient Active Problem List Diagnosis ??? Fracture of distal phalanx of left [...] ??? Hyperpiesia ??? HLD (hyperlipidemia) Objective: BP (!) 147/92 (BP Location (NBP): Left arm, Patient Position: Sitting) Pulse 74 Ht 180.3 cm (5'11) Wt 93 kg (205 lb) BMI 28.59 kg/m?? Gen: pleasant male in NAD Cor: reg irreg, s1/s2 of nl character and amplitude, no m/r/g. Estimated RAP not elevated. Carotidswith normal upstroke without bruit. Pulm: CTAB. Normal diaphragmatic movement without use of accessory muscles Assessment and Plan: ASCVD (arteriosclerotic cardiovascular disease) No angina per history. - Anti-Thrombosis: asa 81 - Statin: lipitor 80 - Anti-anginals: GTN PRN. 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 - Diuresis: none - Cardioprotection: valsartan - Devices: none indicated Ventricular bigeminy Not bothered. Reassuring that it dissipates with activity, suggesting a non- ischemic nidus Regarding the exertional intolerance, I posit this is most likely due to post- injury/surgery deconditioning. Gradual increase of activity is recommended; if exertional capacity does not appear to be increasing through the warmer weather, will perform stress testing. RTC 12 months; he will contact us should he find his activity remain limited and not progressing Joel Link MD documented in this encounter Miscellaneous Notes * Assessment & Plan Note - Joel Link MD - 01/23/2022 8:49 AM EDT Associated Problem(s): Ventricular bigeminy Not bothered. Reassuring that it dissipates with activity, suggesting a non- ischemic nidus * Assessment & Plan Note - Joel Link MD - 01/23/2022 8:49 AM EDT Associated Problem(s): Cardiomyopathy, ischemic No failure by history nor exam. - Diuresis: none - Cardioprotection: valsartan - Devices: none indicated * Assessment & Plan Note - Joel Link MD - 01/23/2022 8:49 AM EDT Associated Problem(s): Hyperpiesia Well controlled on current regimen - valsartan 160 * Assessment & Plan Note - Joel Link MD - 01/23/2022 8:48 AM EDT Associated Problem(s): ASCVD (arteriosclerotic cardiovascular disease) No angina per history. - Anti-Thrombosis: asa 81 - Statin: lipitor 80 - Anti-anginals: GTN PRN. It is reasonable to take one proactively prior to strenuous exercise documented in this encounter Plan of Treatment Upcoming Encounters Date Type Department Care Team (Late st Contact Info) Description 04/05/2024 3:00 PM EDT Office Visit Cardiology at [address] [phone] Joel Link MD [facility] [place] [address] 01/18/2025 10:15 AM EDT Office Visit Dermatology at [address] [phone] Mathew Fernando MD [address] [facility] [place] [address] documented as of this encounter Visit Diagnoses Diagnosis Coronary artery disease involving [place] coronary artery of [place] heart without angina pectoris ASCVD (arteriosclerotic cardiovascular disease) Unspecified cardiovascular disease Hyperpiesia Unspecified essential hypertension Cardiomyopathy, ischemic Other specified forms of chronic ischemic heart disease Ventricular bigeminy Other specified cardiac dysrhythmias documented in this encounter Care Teams Telephone Operators Supervisor Relationship Specialty Start Date End Date Karo Otero MD [address] [place] [address] PCP - General Family Medicine 02/11/17 03/19/23 documented as of this encounter
--- OUTSIDE RECORDS SUMMARY | 2024-03-10 10:53 | XMS_ITS | Encounter Summary ---
Author Organization [facility] [place] [address] Care Team Providers Care Bakery Team Leader Name Role Phone Karo Otero MD Primary Care Provider Reason for Visit * Reason Comments Coronary Artery Disease Cardiomyopathy Ventricular Arrhythmia on sectral Encounter Details Date Type Department Care Team (Late st Contact Info) Description 07/19/2020 10:20 AM EST Office Visit Cardiology at [address] [phone] Joel Link MD [facility] [place] [address] Ventricular bigeminy; Coronary artery disease involving [place] coronary artery of [place] heart without angina pectoris Social History Tobacco Use Types Packs/Day Years [...] Sign Reading Time Taken Comments Blood Pressure 117/66 07/19/2020 10:24 AM EST Pulse 48 07/19/2020 10:24 AM EST ekg Temperature - - Respiratory Rate - - Oxygen Saturation - - Inhaled Oxygen Concentration - - Weight 97.5 kg (215 lb) 07/19/2020 10:24 AM EST Height 180.3 cm (5' 11) 07/19/2020 10:24 AM EST Body Mass Index 29.99 07/19/2020 10:24 AM EST documented in this encounter Patient Instructions * Patient Instructions* Joel Link MD - 07/19/2020 10:20 AM EST Please give us a call in 2 weeks with how your symptoms are doing documented in this encounter Progress Notes * Joel Link MD - 07/19/2020 10:20 AM EST Images from the original note were not included. Subjective: Patient ID: Tra Brothers III is a 79 y.o. male who presents on follow-up for: Chief Complaint Patient presents with ??? Coronary Artery Disease ??? Cardiomyopathy ??? Ventricular Arrhythmia on sectral HPI Last seen by me , at which time no changes were made. Since then, he has noted some growing fatigue, which admittedly may be multifactorial in the setting of restrictions of pandemic. However,he notes with activity that his HR does not increase as much as he is accustomed to; reaching a maximum of about 60s. At that point he feels quite encumbered andstops exercise. Otherwise, reasonable activity is without exertional chest pain, dyspnea, presyncope. Denies LH, syncope, palpitations, orthopnea, pnd, weight gain, edema. A Holter monitor was obtained to evaluate this compliant, with results as summarized below bp well controlled at home Review of Systems Constitutional, cardiac, respiratory systems otherwise negative Current Outpatient Medications: ??? atorvastatin (Lipitor) 80 mg Tablet, Take 80 mg by mouth every evening., Disp: , Rfl: ??? fluticasone propionate (FLONASE) 50 mcg/actuation [place], Suspension, 2 sprays by Each Nare route daily as needed., Disp: , Rfl: ??? irbesartan-hydrochlorothiazide (AVALIDE) 150-12.5 mg Tablet, Take 1 tablet by mouth daily., Disp: , Rfl: ??? nitroGLYcerin (NITROSTAT) 0.4 mg Tablet, Sublingual, PLACE 1 TABLET UNDER THE TONGUE EVERY 5 MINUTES NEEDED FOR CHEST PAIN, Disp: 25 tablet, Rfl: 3 ??? polyethylene glycol (MIRALAX) 17 gram [...] 0 Patient Active Problem List Diagnosis ??? Coronary artery disease without angina pectoris ??? Combined forms of age-related cataract of both eyes Added automatically from request for surgery [id number] ??? Ventricular bigeminy ??? Cardiomyopathy, ischemic 11/2017: Preserved EF (64%), with lateral HK. ??? Bilateral carotid artery stenosis 03/2019: auscultation of carotid bruit on left 04/21/2019: carotid US demonstrates mild stenosis (< 50%) in bilateral proximal ICA ??? Acute blood loss anemia ??? 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 Anemia of chronic renal failure, stage 3 (moderate) ??? Coronary artery disease involving [place] coronary artery of [place] heart 11/2017: mild diffuse LM and RCA, 75% mid LAD-> JENNI, 95% prox OM1-> JENNI. EF 64%, post/lat hypokinesis, mild AI 04/2019: EF 64%, no wmas ??? HTN (hypertension) ??? HLD (hyperlipidemia) Objective: BP 117/66 (BP Location (NBP): Left arm, Patient Position: Sitting) Pulse (!) 48 Comment: ekg Ht180.3 cm (5' 11) Wt 97.5 kg (215 lb) BMI 29.99 kg/m?? Gen: pleasant male in NAD Cor: nick reg, s1/s2 of nl character and amplitude, no m/r/g. Estimated RAP not elevated. Left carotid bruit Pulm: CTAB. Normal diaphragmatic movement without use of accessory muscles Ab: soft, nt, nd Ext: no c/c/e. Dp/pt ++ Neuro: without focal deficit. Well kempt, good insight and normal affect Skin: WWP, no rashes nor ulcers EKG: sinus nick Holter 05/2020 Predominant rhythm is sinus, with normal circadian variation and mildly blunted range No significant supraventricular or ventricular ectopy No electrophysiologic basis of reported symptoms is demonstrated. Assessment and Plan: Ventricular bigeminy Discussed that the Sectral is for symptoms from the PVCs, and that the medication seems to have hada good effect. However, especially in the setting [...] palpitations, will move forward with holding sectral Coronary artery disease involving [place] coronary artery of [place] heart No angina per history. - Anti-Thrombosis: asa 81 - Statin: lipitor 80 - Anti-anginals: GTN PRN RTC 6 months Joel Link MD documented in this encounter Miscellaneous Notes * Assessment & Plan Note - Joel Link MD - 07/20/2020 9:12 AM EST Associated Problem(s): ASCVD (arteriosclerotic cardiovascular disease) No angina per history. - Anti-Thrombosis: asa 81 - Statin: lipitor 80 - Anti-anginals: GTN PRN * Assessment & Plan Note - Joel Link MD - 07/20/2020 9:10 AM EST Associated Problem(s): Ventricular bigeminy Discussed that the Sectral is for symptoms from the PVCs, and that the medication seems to have hada good effect. However, especially in the setting [...] palpitations, will move forward with holding sectral documented in this encounter Plan of Treatment Upcoming Encounters Date Type Department Care Team (Late st Contact Info) Description 04/05/2024 3:00 PM EDT Office Visit Cardiology at [address] [phone] Joel Link MD [facility] [place] [address] 01/18/2025 10:15 AM EDT Office Visit Dermatology at [address] [phone] Mathew Fernando MD [address] [place] [address] DERMATOLOG[address] [place], [place] [phone] documented as of this encounter Visit Diagnoses Diagnosis Ventricular bigeminy Other specified cardiac dysrhythmias Coronary artery disease involving [place] coronary artery of [place] heart without angina pectoris documented in this encounter Care Teams Bakery Team Leader Relationship Specialty Start Date End Date Karo Otero MD [address] [place] [address] PCP - General Family Medicine 02/11/17 03/19/23 documented as of this encounter
--- OUTSIDE RECORDS SUMMARY | 2024-03-10 10:53 | XMS_ITS | Encounter Summary ---
Author Organization [place] [address] Care Team Providers Care Machine Sand Mixer Name Role Phone Karo Otero MD Primary Care Provider [phone] Encounter Details Date Type Department Care Team (Late st Contact Info) Description 08/03/2020 Telephone Cardiology at [address] [phone] Joel Link MD [facility] [place] [address] Social History Tobacco Use Types Packs/Day Years [...] Telephone Encounter - Bonnie Watson RN - 08/03/2020 10:46 AM EST Clarification of message after reading Dr. Link' Jul 19 progress note: Ventricular bigeminy Discussed that the Sectral is [...] palpitations, will move forward with holding sectral ?? Message forwarded to Dr. Link everything is fine Called Erwin back with message that Dr. Link is aware and pleased * Telephone Encounter - Xochitl Osborn - 08/03/2020 9:55 AM EST Patient called because the doctor had taken him off a medication that was causing low bp. He said the medication is acetbutalol (?) and everything is fine. Please call him at [phone] documented in this encounter Plan of Treatment Upcoming Encounters Date Type Department Care Team (Late st Contact Info) Description 04/05/2024 3:00 PM EDT Office Visit Cardiology at [address] [phone] Joel Link MD [facility] [place] [address] 01/18/2025 10:15 AM EDT Office Visit Dermatology at [address] [phone] Mathew Fernando MD [address] [place] [address] [place] [address] documented as of this encounter Visit Diagnoses Not on filedocumented in this encounter Care Teams Machine Sand Mixer Relationship Specialty Start Date End Date Karo Otero MD [address] [place] [address] PCP - General Family Medicine 02/11/17 03/19/23 documented as of this encounter
--- OUTSIDE RECORDS SUMMARY | 2024-03-10 10:53 | XMS_ITS | Encounter Summary ---
[place] [address] Care Team Providers Care Supervisor Beater Room Name Role Phone Karo Otero MD Primary Care Provider [phone] Reason for Visit * Reason Comments Skin Check Encounter Details Date Type Department Care Team (Late st Contact Info) Description 08/31/2020 10:00 AM EST Office Visit Dermatology at [address] [phone] Mathew Fernando MD [address] [facility] [place] [address] History of SCC (squamous cell carcinoma) of skin; History of basal cell carcinoma; AK (actinic keratosis) Social History Tobacco Use Types Packs/Day Years [...] Progress Notes * Mathew Fernando MD - 08/31/2020 10:00 AM EST Problem: 1. Yearly skin checkup 2. ??History of extensive sun exposure living in [place] 3. ??History of BCCA's right upper back treated in [place] 4. 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 He has been doing well. He is noted a new lesion on his left cheek that I had frozen, but it has come back. Reviewed is used imiquimod cream for this in 2017. Physical examination was a pleasant 79-year-old gentleman who has 10 actinic keratoses present on the forehead the cheeks and the nose. Examination of the rest of the face the neck the scalp the chest the back the hands the arms forearms is benign. There is no evidence of recurrent BCCA's on the ont back from his [place] treatment sites. 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 1. We will schedule a 30-minute point for excision of this in the near future. 2. Answered patient questions regarding surgery and postsurgical care Actinic keratosis facial 1. LN2 x2 applied each of 10 sites CC: Karo Otero MD documented in this encounter Plan of Treatment Upcoming Encounters Date Type Department Care Team (Late st Contact Info) Description 04/05/2024 3:00 PM EDT Office Visit Cardiology at [address] [phone] Joel Link MD [facility] [place] [address] 01/18/2025 10:15 AM EDT Office Visit Dermatology at [address] [phone] Mathew Fernando MD [address] [place] [address] [place] [address] documented as of this encounter Visit Diagnoses Diagnosis History of SCC (squamous cell carcinoma) of skin Personal history of other malignant neoplasm of skin History of basal cell carcinoma Personal history of other malignant neoplasm of skin AK (actinic keratosis) Actinic keratosis documented in this encounter Care Teams Supervisor Beater Room Relationship Specialty Start Date End Date Karo Otero MD [address] [place] [address] PCP - General Family Medicine 02/11/17 03/19/23 documented as of this encounter
--- OUTSIDE RECORDS SUMMARY | 2024-03-10 10:53 | XMS_ITS | Encounter Summary ---
Author Organization [facility] Address [facility] [place] [address] Care Team Providers Care Dinking Machine Operator Name Role Phone Karo Otero MD Primary Care Provider [phone] Encounter Details Date Type Department Care Team (Late st Contact Info) Description 05/31/2019 External [place] [address] Social History Tobacco Use Types Packs/Day Years [...] 3:00 PM EDT Office Visit Cardiology at [address] [phone] Joel Link MD [facility] [address] 01/18/2025 10:15 AM EDT Office Visit Dermatology at [address] [phone] Mathew Fernando MD [address] [place] [address] DERMATOLOGY [place], [place] [id number] documented as of this encounter Procedures Procedure Name Priority Date/Time Associated Diagnosis Comments ECG SCAN Routine 05/31/2019 documented in this encounter Results * Scan Doc: ECG (05/31/2019) Historical Provider MD IBRAHIM MGR SCAN EX T ORDR/RSLT documented in this encounter Visit Diagnoses Not on filedocumented in this encounter Care Teams Dinking Machine Operator Relationship Specialty Start Date End Date Karo Otero MD [address] [place] [address] PCP - General Family Medicine 02/11/17 03/19/23 documented as of this encounter
--- OUTSIDE RECORDS SUMMARY | 2024-03-10 10:53 | XMS_ITS | Encounter Summary ---
Author Organization [facility] [place] [address] Care Team Providers Care Contact Centre Supervisor Name Role Phone Karo Otero MD Primary Care Provider [phone] Encounter Details Date Type Department Care Team (Late st Contact Info) Description 03/29/2019 External Results Cardiology at [address] [phone] Myranda Arnold RN Social History Tobacco Use Types Packs/Day [...] 3:00 PM EDT Office Visit Cardiology at [address] [phone] Joel Link MD [facility] [place] [address] 01/18/2025 10:15 AM EDT Office Visit Dermatology at [address] [phone] Mathew Fernando MD [address] [place] [address] [place] [address] documented as of this encounter Procedures Procedure Name Priority Date/Time Associated Diagnosis Comments EXTERNAL LIPID LAB RESULTS PANEL Routine 09/02/2018 documented in this encounter Results * Lipid External Results (09/02/2018) Chol, Total 120 HDL 57 LDL Cholesterol 55 Triglycerides 56 Historical Provider POINT OF CARE JOEY T ORDERABLES documented in this encounter Visit Diagnoses Not on filedocumented in this encounter Care Teams Contact Centre Supervisor Relationship Specialty Start Date End Date Karo Otero MD [address] [place] [address] PCP - General Family Medicine 02/11/17 03/19/23 documented as of this encounter
--- OUTSIDE RECORDS SUMMARY | 2024-03-10 10:53 | XMS_ITS | Encounter Summary ---
Author Organization [facility] [place] [place] [address] Care Team Providers Care Supervisor Water Softener Service Name Role Phone Karo Otero MD Primary Care Provider [phone] Encounter Details Date Type Department Care Team (Late st Contact Info) Description 05/03/2021 Telephone Cardiology at [address] [phone] Joel Link MD [facility] [place] [address] Social History Tobacco Use Types Packs/Day Years [...] Encounter - Betty Del Real RN - 05/03/2021 9:21 AM EDT Patient called clinic but hung up before call could be transferred to clinic nurse. Nurse called patient back no answer, left message to call clinic. * Telephone Encounter - Xochitl Osborn - 05/03/2021 9:01 AM EDT Patient called because he is having chest pains, BP is high and pulse is up and down. He is at [facility]. His # is [phone] documented in this encounter Plan of Treatment Upcoming Encounters Date Type Department Care Team (Late st Contact Info) Description 04/05/2024 3:00 PM EDT Office Visit Cardiology at [address] [place] [address] Joel Link MD [facility] [place] [address] 01/18/2025 10:15 AM EDT Office Visit Dermatology at [address] [place] [address] Mathew Fernando MD [address] [place] [address] DERMATOLOGY [place], [place] [id number] documented as of this encounter Visit Diagnoses Not on filedocumented in this encounter Care Teams Supervisor Water Softener Service Relationship Specialty Start Date End Date Karo Otero MD [address] [place] [address] PCP - General Family Medicine 02/11/17 03/19/23 documented as of this encounter
--- OUTSIDE RECORDS SUMMARY | 2024-03-10 10:53 | XMS_ITS | Encounter Summary ---
Author Organization [facility] [place] [address] Care Team Providers Care Marketing Proposal Coordinator Name Role Phone Karo Oetro MD Primary Care Provider [phone] Encounter Details Date Type Department Care Team (Late st Contact Info) Description 12/18/2020 Telephone Cardiology at [address] [place] [address] Joel Link MD [facility] [place] [address] Social History Tobacco Use Types Packs/Day Years [...] Telephone Encounter - Homar Mayorga RN - 12/18/2020 9:04 AM EDT Refill already done in refill encounter. * Telephone Encounter - Betty Betts LNA - 12/18/2020 8:09 AM EDT Patient called said he washed his nitro in his laundry and needs a new refill. Would also like to have a refill with new bottle. Please call into [facility] in [facility]. documented in this encounter Plan of Treatment Upcoming Encounters Date Type Department Care Team (Late st Contact Info) Description 04/05/2024 3:00 PM EDT Office Visit Cardiology at [address] [place] [address] Joel Link MD [facility] [place] [address] 01/18/2025 10:15 AM EDT Office Visit Dermatology at [address] [place] [address] Mathew Fernando MD [address] [facility], [place] [address] documented as of this encounter Visit Diagnoses Not on filedocumented in this encounter Care Teams Marketing Proposal Coordinator Relationship Specialty Start Date End Date Karo Otero MD [address] [place] [address] PCP - General Family Medicine 02/11/17 03/19/23 documented as of this encounter
--- OUTSIDE RECORDS SUMMARY | 2024-03-10 10:53 | XMS_ITS | Encounter Summary ---
Author Organization [facility] [place] [address] Care Team Providers Care Truck Washer Name Role Phone Karo Otero MD Primary Care Provider [phone] Reason for Visit * Reason Onset Date Comments Results 06/20/2020 Holter Encounter Details Date Type Department Care Team (Late st Contact Info) Description 06/20/2020 Telephone Cardiology at [address] [address] Joel Link MD [facility] [address] Results (Holter) Social History Tobacco Use Types Packs/Day Years [...] Telephone Encounter - Bonnie Watson RN - 06/20/2020 11:43 AM ESTSummary: no findings on Holter monitor to explain syptoms Dr. Link advises if the symptoms persist, please discuss with your PCP Dr. Karo Otero, to explore non-cardiac causes of dizziness symptoms * Telephone Encounter - Bonnie Watson, RN - 06/20/2020 11:29 AM EST ----- Message from Joel Link MD sent at 06/20/2020 8:43 AM EST ----- Holter was without arrhythmia nor ectopy at any of his triggered events, including when he reportedbeing dizzy. If symptoms persist, would be reasonable to dsicuss with PCP documented in this encounter Plan of Treatment Upcoming Encounters Date Type Department Care Team (Late st Contact Info) Description 04/05/2024 3:00 PM EDT Office Visit Cardiology at [address] [phone] Joel Link MD [facility] [place] [address] 01/18/2025 10:15 AM EDT Office Visit Dermatology at [address] [phone] Mathew Fernando MD [address] [place] [address] [place]MATOLOGY [place], [place] [address] documented as of this encounter Visit Diagnoses Not on filedocumented in this encounter Care Teams Truck Washer Relationship Specialty Start Date End Date Karo Otero MD [address] [place] [address] PCP - General Family Medicine 02/11/17 03/19/23 documented as of this encounter
--- OUTSIDE RECORDS SUMMARY | 2024-03-10 10:53 | XMS_ITS | Encounter Summary ---
Author Organization [facility] [address] Care Team Providers Care Attendant Lodging Facilities Name Role Phone Karo Otero MD Primary Care Provider [phone] Reason for Visit * Reason Comments Medication Refill Encounter Details Date Type Department Care Team (Late st Contact Info) Description 12/17/2020 Refill Cardiology at [address] [phone] Joel Link MD [facility] [place] [address] Medication Refill Social History Tobacco Use Types [...] 3:00 PM EDT Office Visit Cardiology at [address] [phone] Joel Link MD [facility] [place] [address] 01/18/2025 10:15 AM EDT Office Visit Dermatology at [address] [phone] Mathew Fernando MD [address] [facility] [place] [address] documented as of this encounter Visit Diagnoses Diagnosis Coronary artery disease involving pass[place] coronary artery of pass[place]dy heart without angina pectoris documented in this encounter Care Teams Attendant Lodging Facilities Relationship Specialty Start Date End Date Karo Otero MD [address] [place] [address] PCP - General Family Medicine 02/11/17 03/19/23 documented as of this encounter
--- OUTSIDE RECORDS SUMMARY | 2024-03-10 10:53 | XMS_ITS | Encounter Summary ---
Author Organization [facility] [place] [address] Care Team Providers Care Weigh Box Tender Name Role Phone Karo Otero MD Primary Care Provider [phone] Encounter Details Date Type Department Care Team (Late st Contact Info) Description 04/21/2019 4:40 PM EDT Interpretation Only [facility] [address] [place] [address] Joel Link MD [facility] [place] [address] Social History Tobacco Use Types Packs/Day Years [...] PM EDT Office Visit Cardiology at [address] [place] [address] Joel Link MD [facility] [place] [address] 01/18/2025 10:15 AM EDT Office Visit Dermatology at [address] [place] [address] Mathew Fernando MD [address] [facility] [place] [address] documented as of this encounter Procedures Procedure Name Priority Date/Time Associated Diagnosis Comments ECHO SCAN (SCAN) 04/21/2019 12:0 0 AM EDT documented in this encounter Results * SCAN DOC: ECHO (04/21/2019 12:00 AM EDT) Anatomical Region Laterality Modality Cardiac Other Narrative 04/21/2019 12:00 AM EDT Ordered by an unspecified provider. Scanning Provider MEDIA MGR SCAN EXT O RDR/RSLT documented in this encounter Visit Diagnoses Not on filedocumented in this encounter Care Teams Weigh Box Tender Relationship Specialty Start Date End Date Karo Oteor MD [address] [place] [address] PCP - General Family Medicine 02/11/17 03/19/23 documented as of this encounter
--- OUTSIDE RECORDS SUMMARY | 2024-03-10 10:53 | XMS_ITS | Encounter Summary ---
Author Organization [facility] [place] [address] Care Team Providers Care Flooring Installer Name Role Phone Karo Otero MD Primary Care Provider [phone] Encounter Details Date Type Department Care Team (Late st Contact Info) Description 06/08/2020 [place] [phone] Unknown None Social History Tobacco Use Types Packs/Day Years [...] PM EDT Office Visit Cardiology at [address] [phone] [address] Link [place] [facility] [place] [address] 01/18/2025 10:15 AM EDT Office Visit Dermatology at [address] [address] Mathew Fernando MD [address] [place] [address] [place] [address] documented as of this encounter Procedures Procedure Name Priority Date/Time Associated Diagnosis Comments EKG 12-LEAD Routine 07/19/2020 10:36 AM EST EKG 12-LEAD Routine 06/08/2020 10:00 AM EDT documented in this encounter Results * EKG 12 Lead (07/19/2020 10:36 AM EST) Ventricular rate 48 BPM MUSE SYSTEM Atrial Rate 48 BPM MUSE SYSTEM P-R Interval 276 ms MUSE SYSTEM QRS Duration 82 ms MUSE SYSTEM Q-T Interval 450 ms MUSE SYSTEM QTC Calculated (Bezet) 402 ms MUSE SYSTEM Calculated P [place] 73 degrees MUSE SYSTEM Calculated R [place] -20 degrees MUSE SYSTEM Calculated T [place] 37 degrees MUSE SYSTEM INTERPRETATION Sinus bradycardia with 1st degree A-V block Minimal voltage criteria for LVH, may be normal variant Borderline ECG When compared with ECG of 08-JUN-2020 10:00, No significant change was found Confirmed by MD Link Daniel ([id number]) on 07/22/2020 11:08:36 AM MUSE SYSTEM 07/19/2020 10:3 6 AM EST 07/22/2020 11:08 AM EST Unknown ECG ORDERABLES MUSE SYSTEM * EKG 12 Lead (06/08/2020 10:00 AM EDT) Ventricular rate 56 BPM MUSE SYSTEM Atrial Rate 56 BPM MUSE SYSTEM P-R Interval 270 ms MUSE SYSTEM QRS Duration 80 ms MUSE SYSTEM Q-T Interval 436 ms MUSE SYSTEM QTC Calculated (Bezet) 420 ms MUSE SYSTEM Calculated P [place] 76 degrees MUSE SYSTEM Calculated R [place] -22 degrees MUSE SYSTEM Calculated T [place] 26 degrees MUSE SYSTEM INTERPRETATION Sinus bradycardia with 1st degree A-V block Otherwise normal ECG When compared with ECG of 18-OCT-2019 10:36, No significant change was found Confirmed by MD Link Daniel ([id number]) on 06/08/2020 12:38:56 PM MUSE SYSTEM 06/08/2020 10:0 0 AM EDT 06/08/2020 12:38 PM EDT Unknown ECG ORDERABLES MUSE SYSTEM documented in this encounter Visit Diagnoses Not on filedocumented in this encounter Care Teams Flooring Installer Relationship Specialty Start Date End Date Karo Otero MD [address] [place] [address] PCP - General Family Medicine 02/11/17 03/19/23 documented as of this encounter
--- OUTSIDE RECORDS SUMMARY | 2024-03-10 10:53 | XMS_ITS | Encounter Summary ---
Author Organization [facility] [place] [address] Care Team Providers Care Terrazzo Finisher Helper Name Role Phone Karo Otero MD Primary Care Provider [phone] Reason for Visit * Reason Comments Follow-up Skin Check Encounter Details Date Type Department Care Team (Late st Contact Info) Description 08/25/2018 10:30 AM EST Office Visit Dermatology at [address] [address] Mathew Fernando MD [address] [facility] [place] [address] History of SCC (squamous cell carcinoma) of [...] Progress Notes * Mathew Fernando MD - 08/25/2018 10:30 AM EST Problem: 1. [place] yearly skin checkup 2. History of extensive sun exposure living in [place] 3. History of BCCA's right upper back treated in [place] 4. 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 He unfortunately did have a an ME in November and brokehis leg in December. He has not noted any particular cutaneous lesions of concern. Physical examination reveals actinic's present the patient's forehead the lower right hip, and on his lateral cheeks. Otherwise examination of the head and the neck the chest the back the hands the arms forearms the thighs and calves is benign. There is no evidence of any malignant lesions on examination today. The right medial cheek site is well-healed without evidence recurrence. There is no evidence recurrence at the back treatment sites from [place]. Assessment plan: Actinic keratosis facial 1. LN 2 x 2 applied to each of 7 sites. 2. Return to clinic in a year for recheck. History of nonmelanoma cutaneous malignancies 1. No evidence of recurrence 2. Patient reassured CC: Karo Otero MD documented in this encounter Plan of Treatment Upcoming Encounters Date Type Department Care Team (Late st Contact Info) Description 04/05/2024 3:00 PM EDT Office Visit Cardiology at [address] [phone] Joel Link MD [facility] [place] [address] 01/18/2025 10:15 AM EDT Office Visit Dermatology at [address] [phone] Mathew Fernando MD [address] [place] [address] [place] [address] documented as of this encounter Visit Diagnoses Diagnosis History of SCC (squamous cell carcinoma) of skin Personal history of other malignant neoplasm of skin History of basal cell carcinoma Personal history of other malignant neoplasm of skin AK (actinic keratosis) Actinic keratosis documented in this encounter Care Teams Terrazzo Finisher Helper Relationship Specialty Start Date End Date Karo Otero MD [address] [place] [address] PCP - General Family Medicine 02/11/17 03/19/23 documented as of this encounter
--- OUTSIDE RECORDS SUMMARY | 2024-03-10 10:53 | XMS_ITS | Encounter Summary ---
Author Organization [facility] [place] [address] Care Team Providers Care Infrastructure Solutions Architect Name Role Phone Karo Otero MD Primary Care Provider [phone] Reason for Visit * Reason Comments Medication Refill Encounter Details Date Type Department Care Team (Late st Contact Info) Description 07/19/2020 Refill Cardiology at [address] [phone] Joel Link MD [facility] [place] [address] Medication Refill Social History Tobacco Use Types [...] PM EDT Office Visit Cardiology at [address] [phone] Joel Link MD [facility] [place] [address] 01/18/2025 10:15 AM EDT Office Visit Dermatology at [address] [phone] Mathew Fernando MD [address] [facility] [place] [address] documented as of this encounter Visit Diagnoses Diagnosis Essential hypertension Unspecified essential hypertension documented in this encounter Care Teams Infrastructure Solutions Architect Relationship Specialty Start Date End Date Karo Otero MD [address] [place] [address] PCP - General Family Medicine 02/11/17 03/19/23 documented as of this encounter
--- OUTSIDE RECORDS SUMMARY | 2024-03-10 10:53 | XMS_ITS | Encounter Summary ---
Author Organization [facility] Address [facility] [place] [address] Care Team Providers Care Deck Steward Name Role Phone Karo Otero MD Primary Care Provider [phone] Reason for Visit * Reason Comments Follow-up 6 month f/u ASCVD, m ore tired, More SOB. Broke femur last year Encounter Details Date Type Department Care Team (Late st Contact Info) Description 04/06/2019 9:40 AM EDT Office Visit Cardiology at [address] [phone] Delisa Paniagua MD 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 male. Chief Complaint Patient presents with ??? Follow-up 6 month f/u ASCVD, more tired, More SOB. Broke femur last year HPI 78 M presents on follow-up for CAD. Last seen by Dr Mishra 09/2018, at which time plavix was counseled to be discontinued in 11/2018. He unfortunately broke his femur shortly after his stent was placed last year, and this has led to a prolonged recovery. However, he has been getting exercise via way of going to the pool twice a week. Denies chest pain with exertion, although feels he gets short of breath with activities such as walking and gardening. Interestingly, no dyspnea with swimming. He uses nordic walkers usually to help with his vertigo and unsteadiness, sometimes uses a cane. BP at home typically 120s/70s Review of Systems 11 point ros either [...] mg Tablet Take 12.5 mg by mouth daily. ??? docosahexanoic acid/epa [...] visit. Patient Active Problem List Diagnosis ??? Cardiomyopathy, ischemic 11/2017: Preserved EF (64%), with lateral HK. ??? Left carotid bruit ??? Anemia of chronic renal failure, stage 3 (moderate) ??? Coronary artery disease involving stony river coronary artery of [place] river heart 11/2017: mild diffuse LM and RCA, 75% mid LAD-> JENNI, 95% prox OM1-> JENNI EF 64%, post/lat hypokinesis, mild AI ??? Essential hypertension ??? HLD (hyperlipidemia) ??? History of SCC (squamous cell carcinoma) of skin ??? History of basal cell carcinoma ??? AK (actinic keratosis) Objective: Physical Exam BP 143/81 (BP Location (NBP): Right arm, Patient Position: Sitting) Pulse 52 Ht 180.3 cm (5' 11) Wt 97 kg (213 lb 13.5 oz) BMI 29.83 kg/m?? General : pleasant male in NAD Cor: rrr, s1/s2 of nl character and amplitude, no mrg. jvp not elevated. Left carotid with bruit Pulm: ctab Ab: soft, nt, nd Ext: no cce. Dp/pt ++ Neuro: without focal deficit Assessment and Plan: Coronary artery disease involving stony river coronary artery of st[place] river heart No angina per history - Anti-platelets: ASA 81 - Statin: lipitor 80 - Anti-anginals: toprol, GTN PRN Cardiomyopathy, ischemic No volume overload by exam; however, has new symptom of dyspnea. More than likely from deconditioning from femur fracture, though worsening of CDM cannot be excluded - Diuresis: n/a - cardioprotection: lopressor 12.5 BID (no strict indication for Toprol), losartan 50 - Dx: TTE (attention to gross/regional function) Left carotid bruit Carotid duplex RTC 12 months, unless TTE abnormal Delisa Paniagua MD documented in this encounter Miscellaneous Notes * Assessment & Plan Note - Delisa Paniagua MD - 04/06/2019 10:25 AM EDT Associated Problem(s): Bilateral carotid artery stenosis Carotid duplex * Assessment & Plan Note - Delisa Paniagua MD - 04/06/2019 10:16 AM EDT Associated Problem(s): Cardiomyopathy, ischemic No volume overload by exam; however, has new symptom of dyspnea. More than likely from deconditioning from femur fracture, though worsening of CDM cannot be excluded - Diuresis: n/a - cardioprotection: lopressor 12.5 BID (no strict indication for Toprol), losartan 50 - Dx: TTE (attention to gross/regional function) * Assessment & Plan Note - Delisa Paniagua MD - 04/06/2019 10:15 AM EDT Associated Problem(s): ASCVD (arteriosclerotic cardiovascular disease) No angina per history - Anti-platelets: ASA 81 - Statin: lipitor 80 - Anti-anginals: toprol, GTN PRN * Addendum Note - Delisa Paniagua MD - 04/06/2019 9:40 AM EDTAddended by: DELISA PANIAGUA on: 04/06/2019 10:26 AM Modules accepted: Orders documented in this encounter Plan of Treatment Upcoming Encounters Date Type Department Care Team (Late st Contact Info) Description 04/05/2024 3:00 PM EDT Office Visit Cardiology at [address] [place] [address] Delisa Paniagua MD 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
--- OUTSIDE RECORDS SUMMARY | 2024-03-10 10:53 | XMS_ITS | Encounter Summary ---
[place] [address] Care Team Providers Care Guillotine Trimmer Name Role Phone Karo Otero MD Primary Care Provider Encounter Details Date Type Department Care Team (Late st Contact Info) Description 09/26/2020 10:30 AM EST Office Visit Dermatology at [address] [phone] Mathew Fernando MD [address] [facility] [place] [address] Visit for suture removal Social History Tobacco Use Types Packs/Day Years [...] Progress Notes * Mathew Fernando MD - 09/26/2020 10:30 AM EST Problem: Follow-up for suture movement biopsy results, left cheek excision Erwin follows up and had no problems postoperatively. The biopsy did come back showing BCCA, superficial type, with margins clear, in fact margins were widely clear. Physical examination reveals a pleasant 79-year-old gentleman who has excellent healing at the leftcheek excision site. There is no sign of infection. There is no tenderness. There is no drainage. 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 Sutures removed 2. May DC wound care instructions 3. Recommend that I see him again in a year for a repeat check. CC: Karo Otero MD documented in this encounter Plan of Treatment Upcoming Encounters Date Type Department Care Team (Late st Contact Info) Description 04/05/2024 3:00 PM EDT Office Visit Cardiology at [address] [phone] Joel Link MD [facility] [place] [address] 01/18/2025 10:15 AM EDT Office Visit Dermatology at [address] [phone] Mathew Fernando MD [address] [place] [address] [place] [address] documented as of this encounter Visit Diagnoses Diagnosis Visit for suture removal Encounter for removal of sutures documented in this encounter Care Teams Guillotine Trimmer Relationship Specialty Start Date End Date Karo Otero MD [address] [place] [address] PCP - General Family Medicine 02/11/17 03/19/23 documented as of this encounter
--- OUTSIDE RECORDS SUMMARY | 2024-03-10 10:53 | XMS_ITS | Encounter Summary ---
Author Organization [facility] [place] [address] Care Team Providers Care Water Sponger Name Role Phone Karo Otero MD Primary Care Provider Encounter Details Date Type Department Care Team (Latest Contact Info) Description 04/21/2019 Interpretation Only Cardiology at [address] [place] [place] [address] Joel Link MD [facility] [place] [address] Cardiomyopathy, ischemic Social History Tobacco Use Types [...] 3:00 PM EDT Office Visit Cardiology at [address] [place] [address] Joel Link MD [facility] [place] [address] 01/18/2025 10:15 AM EDT Office Visit Dermatology at [address] [place] [phone] Mathew Fernando MD [address] [facility] [place] [address] documented as of this encounter Visit Diagnoses Diagnosis Cardiomyopathy, ischemic Other specified forms of chronic ischemic heart disease documented in this encounter Care Teams Water Sponger Relationship Specialty Start Date End Date Karo Otero MD [address] [place] [address] PCP - General Family Medicine 02/11/17 03/19/23 documented as of this encounter
--- OUTSIDE RECORDS SUMMARY | 2024-03-10 10:53 | XMS_ITS | Encounter Summary ---
Author Organization [facility] [place] [address] Care Team Providers Care Retail Asset Protection Specialist Name Role Phone Karo Otero MD Primary Care Provider [phone] Reason for Visit * Reason Comments Dizziness Encounter Details Date Type Department Care Team (Late st Contact Info) Description 06/19/2020 7:00 PM EST Ext Surgery or Single Event Cardiology at [address] [place] [phone] Joel Link MD [facility] [place] [address] Dizziness Social History Tobacco Use Types Packs/Day Years [...] 3:00 PM EDT Office Visit Cardiology at [address] [place] [phone] Joel Link MD [facility] [place] [address] 01/18/2025 10:15 AM EDT Office Visit Dermatology at [address] [place] [address] Mathew Fernando MD [address] [facility] [place] [address] documented as of this encounter Procedures Procedure Name Priority Date/Time Associated Diagnosis Comments HOLTER MONITOR 48 HOUR Routine 06/20/2020 Dizziness SALES AND MANAGEMENT TRAINEE SCAN 05/19/2020 12:00 AM EDT documented in this encounter Results * Holter Monitor 48hr (06/20/2020) Anatomical Region Laterality Modality Other Narrative 06/20/2020 Location: [facility] Referring: [facility] Indication: ??lightheadedness Duration of recording ? 47h59m Summary Data Predominant rhythm ? sinus rhythm Minimum sinus rate: 47 bpm Maximum sinus rate: 90 bpm Average sinus rate: 61 bpm Supraventricular Beats Rare atrial premature beats (APC? s) There were 0 runs of SVT There was no atrial fibrillation Ventricular Beats Rare ventricular premature beats (VPC's) No high grade or sustained ventricular ectopy AV Node No high grade conduction block noted. ??Baseline 1* AVNB noted There were 8 patient diary events: - Symptoms included: dizzy, tired, short of breath, off - These events were correlated with normal sinus rhythm, without nearby arrhythmia nor ectopy Conclusion(s): ?? Predominant rhythm is sinus, with normal circadian variation and mildly blunted range No significant supraventricular or ventricular ectopy No electrophysiologic basis of reported symptoms is demonstrated. Electronically Signed: Joel Link MD, 06/20/2020 8:36 AM Joel Link MD CARDIAC SERVICES ORD ERABLES * SCAN DOC: SALES AND MANAGEMENT TRAINEE (05/19/2020 12:00 AM EDT) Anatomical Region Laterality Modality Other Narrative 05/19/2020 12:00 AM EDT Ordered by an unspecified provider. Scanning Provider MEDIA MGR SCAN EXT O RDR/RSLT documented in this encounter Visit Diagnoses Diagnosis Dizziness Dizziness and giddiness documented in this encounter Care Teams Retail Asset Protection Specialist Relationship Specialty Start Date End Date Karo Otero MD [address] [place] [address] PCP - General Family Medicine 02/11/17 03/19/23 documented as of this encounter
--- OUTSIDE RECORDS SUMMARY | 2024-03-10 10:53 | XMS_ITS | Encounter Summary ---
[place] [address] Care Team Providers Care Hand Sizer Name Role Phone Karo Otero MD Primary Care Provider [phone] Encounter Details Date Type Department Care Team (Late st Contact Info) Description 08/30/2019 10:00 AM EST Office Visit Dermatology at [address] [phone] Mathew Fernando MD [address] [facility] [place] [address] History of SCC (squamous cell carcinoma) of [...] Progress Notes * Mathew Fernando MD - 08/30/2019 10:00 AM EST Problem: 1. Yearly skin checkup 2. History of extensive sun exposure living in [place] 3. History of BCCA's right upper back treated in [place] 4. 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 Is been doing well. Is living there full-time and [place] and not planning on heading down to [place] at all this winter, where he used to live. He is no some new lesions on his face. Physical examination reveals a pleasant 78-year-old gentleman who has actinic keratoses present on his forehead cheeks ears and nose. A total of 15 are noted. There is no evidence any malignant lesions on careful examination of the head and the neck the chest the back the hands the arms informs thighs and the calves. Assessment plan: Actinic keratoses facial 1. LN 2 x 2 applied to each of 15 sites 2. Return to clinic in a year for repeat check 3. Consider course of 5-FU next year History of nonmelanoma cutaneous malignancies 1. No evidence of recurrence. 2. Patient reassured cc: Karo Otero MD ?? documented in this encounter Plan of Treatment Upcoming Encounters Date Type Department Care Team (Late st Contact Info) Description 04/05/2024 3:00 PM EDT Office Visit Cardiology at [address] [phone] [facility] [place] [address] 01/18/2025 10:15 AM EDT Office Visit Dermatology at [address] [phone] Mathew Fernando MD [address] [place] [address] [place] [address] documented as of this encounter Visit Diagnoses Diagnosis History of SCC (squamous cell carcinoma) of skin Personal history of other malignant neoplasm of skin History of basal cell carcinoma Personal history of other malignant neoplasm of skin AK (actinic keratosis) Actinic keratosis documented in this encounter Care Teams Hand Sizer Relationship Specialty Start Date End Date Karo Otero MD [address] [place] [address] PCP - General Family Medicine 02/11/17 03/19/23 documented as of this encounter
--- OUTSIDE RECORDS SUMMARY | 2024-03-10 10:53 | XMS_ITS | Encounter Summary ---
Author Organization [facility] [place] [address] Care Team Providers Care Caltrans Equipment Operator Name Role Phone Karo Otero MD Primary Care Provider [phone] Reason for Visit * Reason Comments Medication Refill Encounter Details Date Type Department Care Team (Late st Contact Info) Description 03/30/2019 Refill Cardiology at [address] [place] [address] Lara Aguero APRN [facility] [place] [address] Medication Refill Social History Tobacco Use Types [...] 3:00 PM EDT Office Visit Cardiology at [address] [place] [address] Joel Link MD [facility] [place] [address] 01/18/2025 10:15 AM EDT Office Visit Dermatology at [address] [place] [address] Mathew Fernando MD [address] [facility] [address] documented as of this encounter Visit Diagnoses Not on filedocumented in this encounter Care Teams Caltrans Equipment Operator Relationship Specialty Start Date End Date Karo Otero MD [address] [place] [address] PCP - General Family Medicine 02/11/17 03/19/23 documented as of this encounter
--- OUTSIDE RECORDS SUMMARY | 2024-03-10 10:53 | XMS_ITS | Encounter Summary ---
Author Organization [facility] [place] [address] Care Team Providers Care Sander And Polisher Name Role Phone Karo Otero MD Primary Care Provider Encounter Details Date Type Department Care Team (Late st Contact Info) Description 10/18/2019 Telephone Cardiology at [address] [phone] Joel Link MD [facility] [place] [address] Social History Tobacco Use Types Packs/Day Years [...] 3:00 PM EDT Office Visit Cardiology at [address] [phone] Joel Link MD [facility] [place] [address] 01/18/2025 10:15 AM EDT Office Visit Dermatology at [address] [phone] Mathew Fernando MD [address] [facility] [facility] [place] [address] documented as of this encounter Visit Diagnoses Not on filedocumented in this encounter Care Teams Sander And Polisher Relationship Specialty Start Date End Date Karo Otero MD [address] [place] [address] PCP - General Family Medicine 02/11/17 03/19/23 documented as of this encounter
--- OUTSIDE RECORDS SUMMARY | 2024-03-10 10:53 | XMS_ITS | Encounter Summary ---
[place] [address] Care Team Providers Care Carpentry Foreman Name Role Phone Karo Otero MD Primary Care Provider [phone] Encounter Details Date Type Department Care Team (Late st Contact Info) Description 05/31/2019 Telephone Cardiology at [address] [phone] Betty Gerber [facility] [place] [address] Social History Tobacco Use Types Packs/Day Years [...] Miscellaneous Notes * Telephone Encounter - Betty Gerber DO - 05/31/2019 12:06 PM EDT 169/91 HR 60 Telephone Consult Note Initial Contact Date: 05/31/2019 Referring Provider: Dr. Sotomayor Patient Location: [facility] Tra Brothers III is a 78 y.o. male with medical history significant for HTN, HLD, ASCVD (s/p PCI in 2018) who presented to the ED today with complaints of fatigue. Workup revealed an elevated BUN at31 and creatinine slightly above his baseline of 1.73 (baseline is 1.6). Troponin has been negative, lytes and magnesium are OK, TSH is normal. No syncope. No lightheadedness or dizziness. No shortness of breath or chest pain. CXR is unremarkable. Bedside TTE by the OSH provider is normal per his read. EKG shows sinus rhythm with bigeminy. He is suspecting that the patient's symptoms of fatigue may be driven by a sick sinus syndrome. 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 He did take his AM metoprolol. He has had one period of time where the bigeminy resolved and at that time he had a HR in the 60s. At this point intime, I'm not sure that sick sinus syndrome is what is driving his presentation. And no indication for a pacer at this moment. Recommend monitoring overnight on telemetry and cardiology consult (which they have available tomorrow AM). He does take metoprolol 25 mg daily for which the OSH provider is holding at this time. Encouraged to call with any further questions or clinical changes. documented in this encounter Plan of Treatment Upcoming Encounters Date Type Department Care Team (Late st Contact Info) Description 04/05/2024 3:00 PM EDT Office Visit Cardiology at [address] [phone] Joel Link MD [place] [address] 01/18/2025 10:15 AM EDT Office Visit Dermatology at [address] [phone] Mathew Fernando MD [address] [place] [address] DERMATOLOGY [place], [place] [phone] documented as of this encounter Visit Diagnoses Not on filedocumented in this encounter Care Teams Carpentry Foreman Relationship Specialty Start Date End Date Karo Otero MD [address] [place] [address] PCP - General Family Medicine 02/11/17 03/19/23 documented as of this encounter
--- OUTSIDE RECORDS SUMMARY | 2024-03-10 10:53 | XMS_ITS | Encounter Summary ---
Author Organization [facility] [place] [address] Care Team Providers Care Tea Plantation Worker Name Role Phone Karo Otero MD Primary Care Provider [phone] Encounter Details Date Type Department Care Team (Latest Contact Info) Description 01/07/2018 - 01/07/2018 12:04 AM EDT Hospital Encounter [place] [address] Mauricio Schroeder MD [facility] [place] [address] Discharge Disposition: Home Social History Tobacco Use [...] Sig Dispensed Refills Start Date End Date multivitamin (THERAGRAN) Tablet Take 1 tablet by mouth daily. cholecalciferol, Vitamin D3, 50 mcg (2,000 unit) Capsule Take 1 capsule by mouth daily. buPROPion (WELLBUTRIN SR OR ZYBAN) 150 mg Tablet Sustained Release 12 hr take 1 tablet by mouth twice a day 0 12/23/2016 cyanocobalamin, vitamin B-12, (VITAMIN B-12 ORAL) Take 1 tablet by mouth daily. 07/19/2020 amoxicillin (AMOXIL) 500 mg Capsule 2,000 mg as needed. Before dental visits 0 08/13/2017 04/06/2019 metoprolol succinate (TOPROL-XL) 25 mg Tablet Sustained Release 24 hr Take 0.5 tablets by mouth daily. 30 tablet 12 12/30/2017 10/06/2018 clopidogrel (PLAVIX) 75 mg Tablet Take 1 tablet by mouth daily. 90 tablet 3 11/21/2017 10/06/2018 nitroGLYcerin (NITROSTAT) 0.4 mg Tablet, Sublingual Place 1 tablet under the tongue every 5 minutes as needed for Chest pain. 25 tablet 3 11/20/2017 03/30/2019 atorvastatin (LIPITOR) 80 mg Tablet Take 1 tablet by mouth every evening. 90 tablet 3 11/20/2017 10/18/2019 aspirin 81 mg Tablet, Delayed Release (E.C.) Take 81 mg by mouth daily. 12/04/2022 losartan-hydrochlorothi azide (HYZAAR) 100-25 mg Tablet Take 0.5 tablets by mouth daily. 0 11/15/2016 04/01/2018 temazepam (RESTORIL) 15 mg Capsule take 1 capsule by mouth at bedtime 0 09/29/2016 06/19/2023 documented as of this encounter Plan of Treatment Upcoming Encounters Date Type Department Care Team (Late st Contact Info) Description 04/05/2024 3:00 PM EDT Office Visit Cardiology at [address] [place] [phone] Joel Link MD [place] [address] 01/18/2025 10:15 AM EDT Office Visit Dermatology at [address] [phone] Mathew Fernando MD [address] [place] [address] DERMATOLOGY [place], [place] [phone] documented as of this encounter Procedures Procedure Name Priority Date/Time Associated Diagnosis Comments FILM LIBRARY STORAGE ONLY DX CHEST Routine 01/07/2018 12:00 AM EDT documented in this encounter Results * Film Library- Storage Only DX Chest (01/07/2018 12:00 AM EDT) Narrative [facility] - 01/07/2018 3:33 PM EDT This exam is for storage only and is auto-finalizing. Mauricio Schroeder MD IMG FILM LIBRARY ORD ERABLES [place], [place] documented in this encounter Visit Diagnoses Not on filedocumented in this encounter Care Teams Tea Plantation Worker Relationship Specialty Start Date End Date Karo Otero MD [address] [place] [address] PCP - General Family Medicine 02/11/17 03/19/23 documented as of this encounter
--- OUTSIDE RECORDS SUMMARY | 2024-03-10 10:53 | XMS_ITS | Encounter Summary ---
Author Organization [facility] [place] [address] Care Team Providers Care Real Estate Office Supervisor Name Role Phone Karo Otero MD Primary Care Provider [phone] Encounter Details Date Type Department Care Team (Latest Contact Info) Description 01/07/2018 12:05 AM EDT - 01/07/2018 11:59 PM EDT Hospital Encounter [place] [address] Mauricio Schroeder MD [facility] [place] [address] Discharge Disposition: Home Social History Tobacco Use [...] PM EDT Office Visit Cardiology at [address] [phone] Joel Link MD [facility] [place] [address] 01/18/2025 10:15 AM EDT Office Visit Dermatology at [address] [address] Mathew Fernando MD [address] [place] [address] DERMATOLOGY [place], [place] [id number] documented as of this encounter Procedures Procedure Name Priority Date/Time Associated Diagnosis Comments FILM LIBRARY STORAGE ONLY DX LOWER EXTREMITY Routine 01/07/2018 12:05 AM EDT documented in this encounter Results * Film Library- Storage Only DX Lower Extremity (01/07/2018 12:05 AM EDT) Narrative DUNCAN HANSEN - 01/07/2018 3:34 PM EDT This exam is for storage only and is auto-finalizing. Mauricio Schroeder MD IMG FILM LIBRARY ORD ERABLES [place], [place] documented in this encounter Visit Diagnoses Not on filedocumented in this encounter Care Teams Real Estate Office Supervisor Relationship Specialty Start Date End Date Karo Otero MD [address] [place] [address] PCP - General Family Medicine 02/11/17 03/19/23 documented as of this encounter
--- OUTSIDE RECORDS SUMMARY | 2024-03-10 10:53 | XMS_ITS | Encounter Summary ---
Author Organization [facility] [place] [address] Care Team Providers Care Mail Clerk Bills Name Role Phone Karo Otero MD Primary Care Provider [phone] Reason for Visit * Reason Comments Medication Refill Encounter Details Date Type Department Care Team (Late st Contact Info) Description 12/20/2020 Refill Cardiology at [address] [phone] Joel Link MD [facility] [place] [address] Medication Refill Social History Tobacco Use Types [...] PM EDT Office Visit Cardiology at [address] [phone] Joel Link MD [facility] [place] [address] 01/18/2025 10:15 AM EDT Office Visit Dermatology at [address] [address] Mathew Fernando MD [address] [facility] [place] [address] documented as of this encounter Visit Diagnoses Diagnosis Coronary artery disease involving [place] coronary artery of [place] heart without angina pectoris documented in this encounter Care Teams Mail Clerk Bills Relationship Specialty Start Date End Date Karo Otero MD [address] [place] [address] PCP - General Family Medicine 02/11/17 03/19/23 documented as of this encounter
--- OUTSIDE RECORDS SUMMARY | 2024-03-10 10:53 | XMS_ITS | Encounter Summary ---
Author Organization [facility] [place] [address] Care Team Providers Care Industrial Trainer Name Role Phone Karo Otero MD Primary Care Provider [phone] Reason for Visit * Reason Comments Other ventricular bigeminy Encounter Details Date Type Department Care Team (Late st Contact Info) Description 10/18/2019 10:20 AM EST Office Visit Cardiology at [address] [place] [phone] Joel Link MD [facility] [place] [address] Coronary artery disease involving [place] coronary artery of [place] heart without angina pectoris; Ventricular bigeminy Social [...] Sign Reading Time Taken Comments Blood Pressure 126/75 10/18/2019 10:09 AM EST Pulse 52 10/18/2019 10:09 AM EST Temperature - - Respiratory Rate - - Oxygen Saturation - - Inhaled Oxygen Concentration - - Weight 96.2 kg (212 lb) 10/18/2019 10:05 AM EST Height 182.9 cm (6') 10/18/2019 10:05 AM EST Body Mass Index 28.75 10/18/2019 10:05 AM EST documented in this encounter Progress Notes * Joel Link MD - 10/18/2019 10:20 AM EST Images from the original note were not included. at [facility], Cardiology [address] [address] Subjective: Patient ID: Tra Brothers III (Tony) is a 78 y.o. male who presents on follow-up for: Chief Complaint Patient presents with ??? Other ventricular bigeminy HPI Last seen by me 05/2019, at which time sectral was started for symptomatic ventricular bigeminy, after metoprolol led to chronotropic incompetence Since then, it seems that he may have had a brief duration of repeated ventricular bigeminy, and hewas going to see EP. However, that has since broke and he feels back to normal. Excellent amount ofactivity (swimming, cardiac rehab) is without exertional chest pain, dyspnea, presyncope. Denies LH, syncope, palpitations, orthopnea, pnd, weight gain, edema. Notes that his HR increases as it should with activity. BP well controlled at home Review of Systems 11 point ROS either negative or per HPI Allergies Allergen Reactions ??? Oxycodone Nausea Only ??? Pollen Extracts Current Outpatient Medications: ??? IRBESARTAN-HYDROCHLOROTHIAZIDE ORAL, Take 1 tablet by mouth daily., Disp: , Rfl: ??? acebutolol (SECTRAL) 200 mg Capsule, TAKE 1 CAPSULE BY MOUTH TWO TIMES DAILY, Disp: 180 capsule, Rfl: 3 ??? nitroGLYcerin (NITROSTAT) 0.4 mg Tablet, Sublingual, [...] by mouth daily., Disp: , Rfl: ??? cyanocobalamin, vitamin B-12, (VITAMIN B-12 ORAL), Take 1 tablet by mouth daily., Disp: [...] 0 Patient Active Problem List Diagnosis ??? Ventricular bigeminy ??? Cardiomyopathy, ischemic 11/2017: Preserved EF (64%), with lateral HK. ??? Bilateral carotid artery stenosis 03/2019: auscultation of carotid bruit on left 04/21/2019: carotid US demonstrates mild stenosis (< 50%) in bilateral proximal ICA ??? Anemia of chronic renal failure, stage 3 (moderate) ??? Coronary artery disease involving [place] coronary artery of [place] heart 11/2017: mild diffuse LM and RCA, 75% mid LAD-> JENNI, 95% prox OM1-> JENNI. EF 64%, post/lat hypokinesis, mild AI 04/2019: EF 64%, no wmas ??? Essential hypertension ??? HLD (hyperlipidemia) ??? AK (actinic keratosis) Objective: BP 126/75 (BP Location (NBP): Left arm, Patient Position: Standing) Pulse 52 Ht 182.9 cm (6') Wt 96.2 kg (212 lb) BMI 28.75 kg/m?? Gen: pleasant male in NAD Cor: [...] no rashes nor ulcers EKG: sinus nick 51 via 1* avnb Assessment and Plan: Coronary artery disease involving [place] coronary artery of [place] heart No angina per history - Anti-Thrombosis: asa 81 - Statin: lipitor 80 - Anti-anginals: GTN PRN Ventricular bigeminy Without ventricular ectopy and without symptoms of bradycardia. Continue current regimen. We reviewed that with any arrhythmia that we are treating medically, it is not uncommon to have breakthroughs of said arrhyhtmia. It does sound like this dose of sectral is both controlling the VE as well aspermitting HR increase with exertion - continue sectral 200 bid RTC 9 months Joel Link MD documented in this encounter Miscellaneous Notes * Assessment & Plan Note - Joel Link MD - 10/18/2019 9:26 PM EST Associated Problem(s): Ventricular bigeminy Without ventricular ectopy and without symptoms of bradycardia. Continue current regimen. We reviewed that with any arrhythmia that we are treating medically, it is not uncommon to have breakthroughs of said arrhyhtmia. It does sound like this dose of sectral is both controlling the VE as well aspermitting HR increase with exertion - continue sectral 200 bid * Assessment & Plan Note - Joel Link MD - 10/18/2019 9:25 PM EST Associated Problem(s): ASCVD (arteriosclerotic cardiovascular disease) No angina per history - Anti-Thrombosis: asa 81 - Statin: lipitor 80 - Anti-anginals: GTN PRN documented in this encounter Plan of Treatment Upcoming Encounters Date Type Department Care Team (Late st Contact Info) Description 04/05/2024 3:00 PM EDT Office Visit Cardiology at [address] [place] [address] Joel Link MD [facility] [place] [address] 01/18/2025 10:15 AM EDT Office Visit Dermatology at [place] [address] [place] [address] Mathew Fernando MD [address] [place] [address] documented as of this encounter Procedures Procedure Name Priority Date/Time Associated Diagnosis Comments EKG 12-LEAD Routine 10/18/2019 10:36 AM EST documented in this encounter Results * EKG 12 Lead (10/18/2019 10:36 AM EST) Ventricular rate 51 BPM MUSE SYSTEM Atrial Rate 51 BPM MUSE SYSTEM P-R Interval 256 ms MUSE SYSTEM QRS Duration 82 ms MUSE SYSTEM Q-T Interval 466 ms MUSE SYSTEM QTC Calculated (Bezet) 429 ms MUSE SYSTEM Calculated P Stout 73 degrees MUSE SYSTEM Calculated R Stout -20 degrees MUSE SYSTEM Calculated T Stout 18 degrees MUSE SYSTEM INTERPRETATION Sinus bradycardia with 1st degree A-V block Minimal voltage criteria for LVH, may be normal variant Borderline ECG When compared with ECG of 07-JUN-2019 11:44, No significant change was found Confirmed by MD Nikolay, Joel ([id number]) on 10/21/2019 1:40:51 PM MUSE SYSTEM 10/18/2019 10:3 6 AM EST 10/21/2019 1:40 PM EST Unknown ECG ORDERABLES MUSE SYSTEM documented in this encounter Visit Diagnoses Diagnosis Coronary artery disease involving [place] coronary artery of [place] heart without angina pectoris Ventricular bigeminy Other specified cardiac dysrhythmias documented in this encounter Care Teams Industrial Trainer Relationship Specialty Start Date End Date Karo Otero MD [address] [place] [address] PCP - General Family Medicine 02/11/17 03/19/23 documented as of this encounter
--- OUTSIDE RECORDS SUMMARY | 2024-03-10 10:53 | XMS_ITS | Encounter Summary ---
[place] [address] Care Team Providers Care Biomedical Engineering Director Name Role Phone Karo Otero MD Primary Care Provider [phone] Reason for Visit * Reason Comments Follow-up Encounter Details Date Type Department Care Team (Late st Contact Info) Description 09/18/2020 9:00 AM EST Procedure visit Dermatology at [address] [phone] Mathew Fernando MD [address] [facility] [place] [address] History of SCC (squamous cell carcinoma) of [...] Progress Notes * Mathew Fernando MD - 09/18/2020 9:00 AM EST Clinical impression: Nonmelanoma cutaneous malignancy Site: Left cheek Size: 1.7 cm Deep suture: 4-0 Vicryl Surface suture: 5-0 Ethilon Follow-up: In 1 week for suture will biopsy results Indications for surgery, possible adverse outcomes, and activity restrictions discussed. Informed verbal consent was obtained. Skin surface was prepared with 4% chlorhexidine and draped in the usual sterile manner. Local anesthesia with 1% lidocaine, 100,000 epinephrine and 0.1 mEq/mL bicarbonate. A shave biopsy was utilizedto remove the lesion for histopathologic analysis and the base curetted. This was submitted as specimen A. Using a number 15 blade, and 3 mm margins, an elliptical excision was carried out around the curetted area, this was submitted as specimen B.. Undermining performed peripherally. Hemostasis with electrodesiccation. Layered closure performed, specimen to pathology. Wound dressed, wound care reviewed. End length of suture line was 3.3 cm Follow-up in 1 week for suture removal and biopsy results. CC: Karo Otero MD documented in this encounter Plan of Treatment Upcoming Encounters Date Type Department Care Team (Late st Contact Info) Description 04/05/2024 3:00 PM EDT Office Visit Cardiology at [address] [phone] Joel Link MD [facility] [place] [address] 01/18/2025 10:15 AM EDT Office Visit Dermatology at [address] [phone] Mathew Fernando MD [address] [place] [address] [place] [address] documented as of this encounter Visit Diagnoses Diagnosis History of SCC (squamous cell carcinoma) of skin Personal history of other malignant neoplasm of skin History of basal cell carcinoma Personal history of other malignant neoplasm of skin documented in this encounter Care Teams Biomedical Engineering Director Relationship Specialty Start Date End Date Karo Otero MD [address] [place] [address] PCP - General Family Medicine 02/11/17 03/19/23 documented as of this encounter
--- OUTSIDE RECORDS SUMMARY | 2024-03-10 10:53 | XMS_ITS | Encounter Summary ---
[place] [address] Care Team Providers Care Business Manager [employer] Name Role Phone Karo Otero MD Primary Care Provider [phone] Reason for Visit * Reason Comments Follow-up 3 months Coronary Artery Disease Encounter Details Date Type Department Care Team (Late st Contact Info) Description 04/01/2018 9:40 AM EDT Office Visit Cardiology at [address] [phone] Sukh Mishra Jr., MD [address] [place] [address] Essential hypertension; ASCVD (arteriosclerotic cardiovascular disease); Elevated cholesterol; Orthostatic dizziness Social History Tobacco Use Types Packs/Day Years [...] Sign Reading Time Taken Comments Blood Pressure 100/70 04/01/2018 9:33 AM EDT Pulse 60 04/01/2018 9:33 AM EDT Temperature - - Respiratory Rate 12 04/01/2018 9:33 AM EDT Oxygen Saturation - - Inhaled Oxygen Concentration - - Weight 89.5 kg (197 lb 6.4 oz) 04/01/2018 9:33 A M EDT Height 180.3 cm (5' 11) 04/01/2018 9:33 AM EDT Body Mass Index 27.53 04/01/2018 9:33 AM EDT documented in this encounter Progress Notes * Sukh Mishra Jr., MD - 04/01/2018 9:40 AM EDT Subjective: Patient ID: Tra Brothers III is a 77 y.o. male. Chief Complaint Patient presents with ??? Follow-up 3 months ??? Coronary Artery Disease HPI He twisted and fell in December fracturing his right femur in 2 places. He is slowly mobilizing withPT. He is walking with a walker. He had no cardiac complications from surgery and denies chest painor limiting dyspnea with therapy. He does have mild orthostatic dizziness which has not improved with a lower dose of Hyzaar. He denies palpitations, edema, PND or orthopnea. Review of Systems denies other issues Allergies Allergen Reactions ??? Oxycodone Nausea Only ??? Pollen Extracts Current Outpatient Prescriptions Medication Sig Dispense Refill ??? multivitamin (THERAGRAN) Tablet Take 1 tablet by mouth daily. ??? cyanocobalamin, vitamin B-12, (VITAMIN B-12 ORAL) Take 1 tablet by mouth daily. ??? cholecalciferol, Vitamin D3, (CHOLECALCIFEROL, VITAMIN D3,) 2,000 unit Capsule Take 1 capsule by mouth daily. ??? amoxicillin (AMOXIL) 500 mg Capsule 2,000 mg as needed. Before dental visits 0 ??? metoprolol succinate (TOPROL-XL) 25 mg Tablet Sustained Release 24 hr Take 0.5 tablets by mouthdaily. 30 tablet 12 ??? clopidogrel (PLAVIX) 75 mg Tablet Take 1 tablet by mouth daily. 90 tablet 3 ??? nitroGLYcerin (NITROSTAT) 0.4 mg Tablet, Sublingual [...] tablet by mouthtwice a day 0 ??? losartan-hydrochlorothiazide (HYZAAR) 100-25 mg Tablet Take 0.5 tablets by mouth daily. 0 ??? temazepam (RESTORIL) 15 mg Capsule [...] AK (actinic keratosis) Objective: Physical Exam BP 100/70 Pulse 60 Resp 12 Ht 180.3 cm (5' 11) Wt 89.5 kg (197 lb 6.4 oz) BMI 27.53 kg/m2 NAD walking with a walker No JVD/HJR Chest clear Cor RR, no murmur Abd benign Ext no edema, well healed surgical scars 01/03- LDL 69 Assessment and Plan: Well controlled angina- encouraged to keep up activity and therapy Low BP with orthostatic dizziness- switch Hyzaar to losartan 25 QD and monitor BP at home Excellent lipids Follow up 6 months documented in this encounter Plan of Treatment Upcoming Encounters Date Type Department Care Team (Late st Contact Info) Description 04/05/2024 3:00 PM EDT Office Visit Cardiology at [address] [place] [address] Joel Link MD [facility] [place] [address] 01/18/2025 10:15 AM EDT Office Visit Dermatology at [address] [phone] Mathew Fernando MD [address] [place] [address] DERMATOLOGY [place], [place] [phone] documented as of this encounter Visit Diagnoses Diagnosis Essential hypertension Unspecified essential hypertension ASCVD (arteriosclerotic cardiovascular disease) Unspecified cardiovascular disease Elevated cholesterol Pure hypercholesterolemia Orthostatic dizziness documented in this encounter Care Teams Business Manager [employer] Relationship Specialty Start Date End Date Karo Otero MD [address] [place] [address] PCP - General Family Medicine 02/11/17 03/19/23 documented as of this encounter
--- OUTSIDE RECORDS SUMMARY | 2024-03-10 10:53 | XMS_ITS | Encounter Summary ---
Author Organization [facility] [place] [address] Care Team Providers Care Administrator Health Care Facility Name Role Phone Karo Otero MD Primary Care Provider [phone] Reason for Visit * Reason Onset Date Comments Shortness of Breath 06/05/2020 Encounter Details Date Type Department Care Team (Late st Contact Info) Description 06/05/2020 Telephone Cardiology at [address] [place] [address] Joel Link MD [facility] [address] Shortness of Breath Social History Tobacco Use Types Packs/Day Years [...] * Telephone Encounter - Beronica Garcia - 06/14/2020 3:16 PM EDT Holter 48 hr to be placed 06/15/2020 @ [facility] 11 am * Telephone Encounter - Beronica Garcia - 06/14/2020 2:49 PM EDT Order faxed to [facility] Scheduling 06/13/2020 * Telephone Encounter - Bonnie Watson RN - 06/05/2020 4:23 PM EDT Erwin agrees to come to the clinic for nurse to conduct EKG on June 08, approximately 10 am * Telephone Encounter - Bonnie Watson, RN - 06/05/2020 9:29 AM EDT Call to patient's phone [phone] He is not in distress right now. Requested he review his symptoms with me. My energy level is low.Last week I was at [employer] and I felt very dizzy and short of breath within 5 minutes. I recovered about 30 min later (sat quietly). This happened a second time last week, with a faster recovery. It has also happened with activity working in his garden and with his tractor. He discussed it with primary care on Friday; the suggestion was made that the sectral may be too effective and suppressing his heart rate. He was told to report these symptoms to his manager of customer billing. Erwin is not routinely recording his home BP, pulse. The most recent one recalled on his device was 128/78; pulse 55-56; SpO2 98%. Instructions given: continue to self-monitor for symptoms. Continue to check home BP and P BUT be sure to write it down and note the time when these episodes happen. This will give your doctor more information. * Telephone Encounter - Beronica Garcia - 06/05/2020 8:53 AM EDT Patient called saying He was having Dizziness, and SOB. He saw PCP and was told to call manager of customer billing. Called for PCP notes. #[phone] documented in this encounter Plan of Treatment Upcoming Encounters Date Type Department Care Team (Late st Contact Info) Description 04/05/2024 3:00 PM EDT Office Visit Cardiology at [address] [place] [address] Joel Link MD [facility] [place] [address] 01/18/2025 10:15 AM EDT Office Visit Dermatology at [address] [place] [address] Mathew Fernando MD [address] [facility] [place] [address] documented as of this encounter Results * Holter Monitor 48hr (06/20/2020) Anatomical Region Laterality Modality Other Narrative 06/20/2020 Location: ??[facility] Referring: Nikolay Indication: ??lightheadedness Duration of recording ? [id number] [...] Joel Link MD [facility] ORD ERABLES documented in this encounter Visit Diagnoses Diagnosis Coronary artery disease involving council coronary artery of council heart without angina pectoris Dizziness Dizziness and giddiness Dizziness Dizziness and giddiness documented in this encounter Care Teams Administrator Health Care Facility Relationship Specialty Start Date End Date Karo Otero MD [address] [place] [address] PCP - General Family Medicine 02/11/17 03/19/23 documented as of this encounter
--- OUTSIDE RECORDS SUMMARY | 2024-03-10 10:53 | XMS_ITS | Encounter Summary ---
Author Organization [facility] [place] [address] Care Team Providers Care Turbine Room Attendant Name Role Phone Karo Otero MD Primary Care Provider Reason for Visit * Reason Comments Medication Refill Encounter Details Date Type Department Care Team (Late st Contact Info) Description 07/13/2019 Refill Cardiology at [address] [phone] Joel Link MD [facility] [place] [address] Medication Refill Social History Tobacco Use Types [...] 3:00 PM EDT Office Visit Cardiology at [address] [phone] Joel Link MD [facility] [place] [address] 01/18/2025 10:15 AM EDT Office Visit Dermatology at [address] [phone] Mathew Fernando MD [address] [facility] [place] [address] documented as of this encounter Visit Diagnoses Diagnosis Essential hypertension Unspecified essential hypertension documented in this encounter Care Teams Turbine Room Attendant Relationship Specialty Start Date End Date Karo Otero MD [address] [place] [address] PCP - General Family Medicine 02/11/17 03/19/23 documented as of this encounter
--- OUTSIDE RECORDS SUMMARY | 2024-03-10 10:53 | XMS_ITS | Encounter Summary ---
Author Organization [facility] Address [facility] [place] [address] Care Team Providers Care Garage Hand Name Role Phone Karo Otero MD Primary Care Provider [phone] Reason for Referral * Consultation (Routine) - Closed Specialty Diagnoses / Procedures Referred By Contact Referred To Contact Electrophysiology / Cardiology Diagnoses Ventricular bigeminy Joel Link MD [facility] [place] [address] Mane Gonzalez MD [facility] [place] [address] Referral ID Status Reason Start Date Expiration Date V isits Requested Visits Authorized [id number] Closed Consult, Test & Treat 08/30/2019 08/29/2020 1 1 Encounter Details Date Type Department Care Team (Late st Contact Info) Description 08/30/2019 Telephone Cardiology at [address] [place] [address] Joel Link MD [facility] [place] [address] Social History Tobacco Use Types Packs/Day Years [...] Telephone Encounter - Homar Mayorga RN - 08/30/2019 1:23 PM EST Spoke to patient, he reports that his heart rate is always in the 50's. Let him know we will set him up to see Dr. Gonzalez for consideration of anti-arrhythmics. Patient aware Dr. Gonzalez will be here in about 4 weeks, Dionne will call him with date and time. * Telephone Encounter - Homar Mayorga RN - 08/30/2019 11:16 AM EST Patient reports that since he has been experiencing intermittent episodes of slow heart rates according to his BP machine. He reports that he is having palpitations during the period of low heart rates that he reports to be as low as 30-35 for a period of 15 to 20 minutes. Medication list reviewed, he is taking all of his medications as instructed. Next scheduled office visit is 10/18/19. * Telephone Encounter - Beronica Garcia - 08/30/2019 10:29 AM EST Patient stopped in office and his pulse rate drops to 30 to 35. He starts feeling woozy. Acebutolol 200 mg 1 tab 2 x daily. # [phone] documented in this encounter Plan of Treatment Upcoming Encounters Date Type Department Care Team (Late st Contact Info) Description 04/05/2024 3:00 PM EDT Office Visit Cardiology at [address] [place] [address] Joel Link MD [facility] [place] [address] 01/18/2025 10:15 AM EDT Office Visit Dermatology at [place] [address] [place] [address] Mathew Fernando MD [address] [facility] [place] [address] Scheduled Referrals Name Type Priority Associated Diagnoses Order Schedule Referral to Cardiac Electrophysiology Outpatient Referral Routine Ventricular bigeminy Ordered: 08/30/2019 documented as of this encounter Visit Diagnoses Diagnosis Ventricular bigeminy Other specified cardiac dysrhythmias documented in this encounter Care Teams Garage Hand Relationship Specialty Start Date End Date Karo Otero MD [address] [place] [address] PCP - General Family Medicine 02/11/17 03/19/23 documented as of this encounter
--- OUTSIDE RECORDS SUMMARY | 2024-03-10 10:53 | XMS_ITS | Encounter Summary ---
Author Organization [facility] [place] [address] Care Team Providers Care Market Development Specialist Name Role Phone Karo Otero MD Primary Care Provider [phone] Encounter Details Date Type Department Care Team (Late st Contact Info) Description 12/20/2020 Telephone Cardiology at [address] [place] [address] Joel Link MD [facility] [place] [address] Social History Tobacco Use Types Packs/Day Years [...] Encounter - Betty Del Real RN - 12/21/2020 10:17 AM EDT Updated patient that prescription has been called into pharmacy. Approval and refusal orders had crossed but pharmacy now has the correct information and they are processing the order. Patient frustrated at the delay in refill, but verbalized understanding. Nurse encouraged patient to reach out if there are any further delays, especially if patient is experiencing symptoms as he now reports was happing this week. Patient verbalized understanding and agreeable to plan. * Telephone Encounter - Xochitl Osborn - 12/20/2020 2:46 PM EDT Patient called because he has not heard about his refill on his nitro. He would like [facility] to go to [facility] . He would also like one refill. Patient is expecting a call back @ [phone] only if there are questions or problems. documented in this encounter Plan of Treatment Upcoming Encounters Date Type Department Care Team (Late st Contact Info) Description 04/05/2024 3:00 PM EDT Office Visit Cardiology at [address] [place] [phone] Joel Link MD [facility] [place] [address] 01/18/2025 10:15 AM EDT Office Visit Dermatology at [address] [place] [address] Mathew Fernando MD [address] [place] [address] DERMATOLOGY [place], [place] [id number] documented as of this encounter Visit Diagnoses Not on filedocumented in this encounter Care Teams Market Development Specialist Relationship Specialty Start Date End Date Karo Otero MD [address] [place] [address] PCP - General Family Medicine 02/11/17 03/19/23 documented as of this encounter
--- OUTSIDE RECORDS SUMMARY | 2024-03-10 10:53 | XMS_ITS | Encounter Summary ---
Author Organization [facility] [place] [address] Care Team Providers Care Architectural Engineer Name Role Phone Karo Otero MD Primary Care Provider [phone] Reason for Visit * Reason Comments Medication Refill Encounter Details Date Type Department Care Team (Late st Contact Info) Description 02/27/2019 Refill Cardiology at [address] [place] [address] Lara Aguero APRN [facility] [place] [address] Medication Refill Social History Tobacco Use Types [...] PM EDT Office Visit Cardiology at [address] [place] [address] Joel Link MD [facility] [place] [address] 01/18/2025 10:15 AM EDT Office Visit Dermatology at [address] [place] [address] Mathew Fernando MD [address] [facility] [place] [address] documented as of this encounter Visit Diagnoses Not on filedocumented in this encounter Care Teams Architectural Engineer Relationship Specialty Start Date End Date Karo Otero MD [address] [place] [address] PCP - General Family Medicine 02/11/17 03/19/23 documented as of this encounter
--- OUTSIDE RECORDS SUMMARY | 2024-03-10 10:53 | XMS_ITS | Encounter Summary ---
Author Organization [facility] [place] [address] Care Team Providers Care Hand Spinner Name Role Phone Karo Otero MD Primary Care Provider [phone] Reason for Visit * Reason Comments Medication Refill acebutolol 200 mg ca p Encounter Details Date Type Department Care Team (Late st Contact Info) Description 07/05/2019 Refill Cardiology at [address] [address] Mane Gonzalez MD [facility] [place] [address] Medication Refill (acebutolol 200 mg cap) Social History Tobacco Use Types Packs/Day Years [...] 3:00 PM EDT Office Visit Cardiology at [address] [address] Joel Link MD [facility] [place] [address] 01/18/2025 10:15 AM EDT Office Visit Dermatology at [place] [address] [place] [address] Mathew Fernando MD [address] [facility] [place] [address] documented as of this encounter Visit Diagnoses Diagnosis Essential hypertension Unspecified essential hypertension documented in this encounter Care Teams Hand Spinner Relationship Specialty Start Date End Date Karo Otero MD [address] [place] [address] PCP - General Family Medicine 02/11/17 03/19/23 documented as of this encounter
--- OUTSIDE RECORDS SUMMARY | 2024-03-10 10:53 | XMS_ITS | Encounter Summary ---
[place] [address] Care Team Providers Care Drum Carrier Name Role Phone Karo Otero MD Primary Care Provider [phone] Reason for Visit * Reason Comments Annual Exam Encounter Details Date Type Department Care Team (Late st Contact Info) Description 01/11/2022 9:45 AM EDT Office Visit Dermatology at [address] [address] Mathew Fernando MD [address] [facility] [place] [address] History of SCC (squamous cell carcinoma) of [...] Progress Notes * Mathew Fernando MD - 01/11/2022 9:45 AM EDT Problem: 1.?Yearly skin checkup 2. ??History of extensive sun exposure living in [place] 3. ??History of BCCA's right upper back treated in [place] 4. 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 He has had some left foot surgery in August in anticipation of left knee replacement. He is still walking with a cane. Physical examination reveals a pleasant 81-year-old gentleman who has actinic's present in the vertex of the scalp the left and right upper forehead at the hairline and on the left taoism and on the upper nasal bridge. Fortunately otherwise examination of the head and the neck the chest the back hands are formed thighs and calves is benign. Assessment and plan: Actinic keratoses facial 1. LN 2 x 2 applied to each of 6 sites 2. Patient reassured about remainder benign skin examination 3. Return to clinic here in a year for repeat check. CC: Karo Otero MD documented in this encounter Plan of Treatment Upcoming Encounters Date Type Department Care Team (Late st Contact Info) Description 04/05/2024 3:00 PM EDT Office Visit Cardiology at [address] [address] Joel Link MD [facility] [place] [address] 01/18/2025 10:15 AM EDT Office Visit Dermatology at [address] [address] Mathew Fernando MD [address] [place] [address] [place] [address] documented as of this encounter Visit Diagnoses Diagnosis History of SCC (squamous cell carcinoma) of skin Personal history of other malignant neoplasm of skin History of basal cell carcinoma Personal history of other malignant neoplasm of skin [place] (actinic keratosis) Actinic keratosis documented in this encounter Care Teams Drum Carrier Relationship Specialty Start Date End Date Karo Otero MD [address] [place] [address] PCP - General Family Medicine 02/11/17 03/19/23 documented as of this encounter
--- OUTSIDE RECORDS SUMMARY | 2024-03-10 10:53 | XMS_ITS | Encounter Summary ---
Author Organization [facility] [place] [address] Care Team Providers Care Manager Aviation Name Role Phone Karo Otero MD Primary Care Provider [phone] Encounter Details Date Type Department Care Team (Late st Contact Info) Description 04/21/2019 Telephone Cardiology at [address] [place] [address] Joel Link MD [place] [address] Social History Tobacco Use Types Packs/Day Years [...] Telephone Encounter - Homar Mayorga RN - 04/21/2019 1:16 PM EDT Discussed with Dr. Link, patient to keep appointment for 10/18/19. Called patient, let him know about his echo and keep his already scheduled appointment in October. * Telephone Encounter - Homar Mayorga RN - 04/21/2019 1:06 PM EDT ----- Message from Joel Link MD sent at 04/21/2019 12:57 PM EDT ----- TTE normal. F/U in 12 months from last visit as planned documented in this encounter Plan of Treatment Upcoming Encounters Date Type Department Care Team (Late st Contact Info) Description 04/05/2024 3:00 PM EDT Office Visit Cardiology at [address] [phone] Joel Link MD [facility] [place] [address] 01/18/2025 10:15 AM EDT Office Visit Dermatology at [address] [address] Mathew Fernando MD [address] [place] [address] [place] [address] documented as of this encounter Visit Diagnoses Not on filedocumented in this encounter Care Teams Manager Aviation Relationship Specialty Start Date End Date Karo Otero MD [address] [place] [address] PCP - General Family Medicine 02/11/17 03/19/23 documented as of this encounter
--- OUTSIDE RECORDS SUMMARY | 2024-03-10 10:53 | XMS_ITS | Encounter Summary ---
[place] [address] Care Team Providers Care Pediatrician/Medical Doctor Name Role Phone Karo Otero MD Primary Care Provider [phone] Reason for Visit * Reason Comments Skin Lesion Encounter Details Date Type Department Care Team (Late st Contact Info) Description 06/11/2022 3:15 PM EDT Office Visit Dermatology at [address] [address] Mathew Fernando MD [address] [facility] [place] [address] [place] (actinic keratosis) Social History Tobacco Use [...] Progress Notes * Mathew Fernando MD - 06/11/2022 3:15 PM EDT Problem: 1.?? Early repeat skin checkup, has lesion of concern on scalp 2. ??History of extensive sun exposure living in [place] 3. ??History of BCCA's right upper back treated in [place] 4. 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 He is to have left knee replacement done tomorrow. Physical examination reveals an 81-year-old gentleman has a hyperkeratotic actinic keratosis of theright upper forehead at the hairline. He has additionally 6 other actinic keratoses present on the forehead and the posterior parietal scalp. Assessment plan: Actinic keratoses scalp and hyperkeratotic actinic keratoses. 1. LN 2 x 2 applied each of 7 sites 2. Patient reassured about the remainder of his benign skin examination 3. Wished him well for tomorrows knee replacement surgery 4. Return to clinic in December for his regular yearly skin checkup CC: Karo Otero MD documented in this encounter Plan of Treatment Upcoming Encounters Date Type Department Care Team (Late st Contact Info) Description 04/05/2024 3:00 PM EDT Office Visit Cardiology at [address] [address] Joel Link MD [facility] [place] [address] 01/18/2025 10:15 AM EDT Office Visit Dermatology at [address] [phone] Mathew Fernando MD [address] [place] [address] [place] [address] documented as of this encounter Visit Diagnoses Diagnosis AK (actinic keratosis) Actinic keratosis documented in this encounter Care Teams Pediatrician/Medical Doctor Relationship Specialty Start Date End Date Karo Otero MD [address] [place] [address] PCP - General Family Medicine 02/11/17 03/19/23 documented as of this encounter
--- OUTSIDE RECORDS SUMMARY | 2024-03-10 10:53 | XMS_ITS | Encounter Summary ---
Author Organization [facility] [place] [address] Care Team Providers Care Transportation Broker Name Role Phone Karo Otero MD Primary Care Provider [phone] Encounter Details Date Type Department Care Team (Late st Contact Info) Description 02/20/2021 Telephone Cardiology at [address] [address] Joel Link MD [facility] [place] [address] Social History Tobacco Use Types Packs/Day Years [...] Telephone Encounter - Homar Mayorga RN - 02/27/2021 1:48 PM EDT Called patient back and reviewed with him that he was in NSR per his EKG and that Dr. Link was not going to make any changes. * Telephone Encounter - Xochitl Osborn - 02/27/2021 1:23 PM EDT Patient left a message on the answering service. He is looking for the results of the cardiogram he had last week. Please call him back @ [phone] * Telephone Encounter - Homar Mayorga RN - 02/21/2021 9:33 AM EDT Patient here this morning for EKG visit. He reports he woke up feeling much better and back to his baseline. * Telephone Encounter - Homar Mayorga RN - 02/20/2021 1:31 PM EDT Patient will come in today around 3:00 for EKG visit. * Telephone Encounter - Homar Mayorga RN - 02/20/2021 1:15 PM EDT Called and spoke to patient. He reports that for the last few weeks, he has been feeling very breathless with light activity. He is also reporting increased fatigue and decreased stamina. He denieschest pain. Says that this morning he had to bend down to pick something up, and then had to sit down for 10 minutes due to feeling extreme exhaustion. Last seen on 01/17/21. * Telephone Encounter - Xochitl Osborn - 02/20/2021 1:03 PM EDT Patient left message on the answering service. He said even with doing light things he feels breathless and worn out. Please call him at [phone]. documented in this encounter Plan of Treatment Upcoming Encounters Date Type Department Care Team (Late st Contact Info) Description 04/05/2024 3:00 PM EDT Office Visit Cardiology at [address] [place] [address] Joel Link MD [facility] [place] [address] 01/18/2025 10:15 AM EDT Office Visit Dermatology at [address] [place] [address] Mathew Fernando MD [address] [facility] [place] [address] documented as of this encounter Visit Diagnoses Not on filedocumented in this encounter Care Teams Transportation Broker Relationship Specialty Start Date End Date Karo Otero MD [address] [place] [address] PCP - General Family Medicine 02/11/17 03/19/23 documented as of this encounter
--- OUTSIDE RECORDS SUMMARY | 2024-03-10 10:54 | XMS_ITS | Encounter Summary ---
Author Organization [facility] Address [facility] [place] [address] Care Team Providers Care Top Inventory Control Executive Name Role Phone Karo Otero MD Primary Care Provider [phone] Encounter Details Date Type Department Care Team (Late st Contact Info) Description 11/18/2017 [place] [address] Social History Tobacco Use Types Packs/Day Years [...] 3:00 PM EDT Office Visit Cardiology at [address] [address] Joel Link MD [facility] [place] [address] 01/18/2025 10:15 AM EDT Office Visit Dermatology at [address] [address] Mathew Fernando MD [address] [place] [address] DERMATOLOGY [place], [place] [id number] documented as of this encounter Procedures Procedure Name Priority Date/Time Associated Diagnosis Comments ECG SCAN Routine 11/18/2017 ECG SCAN Routine 11/18/2017 documented in this encounter Results * Scan Doc: ECG (11/18/2017) Historical Provider MEDIA MGR SCAN EX T ORDR/RSLT * Scan Doc: ECG (11/18/2017) Historical Provider MEDIA MGR SCAN EX T ORDR/RSLT documented in this encounter Visit Diagnoses Not on filedocumented in this encounter Care Teams Top Inventory Control Executive Relationship Specialty Start Date End Date Karo Otero MD [address] [place] [address] PCP - General Family Medicine 02/11/17 03/19/23 documented as of this encounter
--- OUTSIDE RECORDS SUMMARY | 2024-03-10 10:54 | XMS_ITS | Encounter Summary ---
Author Organization [facility] Address [address] [place] [address] Care Team Providers Care Line Rider Name Role Phone Blanco Myles MD Primary Care Provider [phone] Encounter Details Date Type Department Care Team (Late st Contact Info) Description 02/09/2024 Lab Requisition [facility] Pathology & Laboratory Medicine - [address] [address] Outr Resulting Lab, Provider Social History Tobacco Use Types Packs/Day Years Used Date Smoking Tobacco: Former Cigarettes 0.5 15 0 08/1984 - 08/1999 Smokeless Tobacco: Never Alcohol Use Standard Drinks/Week Comments No 0 (1 standard drink = 0.6 oz pur e alcohol) quit 1979 - Interpersonal Safety Answer Date Record ed Physically Hurt Never 03/20/2020 Verbally Threaten Not on file 03/20/2020 Sex and Gender Information Value Date Recorded Sex Assigned at Not on file Gender Identity Male 09/20/2019 15:02 EST Sexual Orientation Not on file documented as of this encounter Functional Status Functional Status Response Date of Assess ment Are you deaf or do you have serious difficulty h earing? No 01/07/2018 Are you blind or do you have serious difficulty seeing, even when wearing glasses? Yes 01/07/2018 Do you have serious difficul ty walking or climbing stairs? (5 years old or older) No 01/07/2018 Do you have difficulty dress ing or bathing? (5 years old or older) No 01/07/2018 Because of a physical, menta l, or emotional condition, do you have difficulty doing errands alone such as visiting a doctor's office or shopping? (15 years old or older) No 01/07/2018 Cognitive Status Response Date of Assess ent Because of a physical, menta l, or emotional condition, do you have serious difficulty concentrating, remembering, or making decisions? (5 years old or older) No 01/07/2018 documented as of this encounter Plan of Treatment Upcoming Encounters Date Type Department Care Team (Late st Contact Info) Description 04/30/2024 13:00 EDT Office Visit [facility] Ophthalmology - [facility] [address] [place], [place] [address] Anjum Miranda MD [address] [facility], [address] [place] [address] documented as of this encounter Procedures Procedure Name Priority Date/Time Associated Diagnosis Comments CCP ANTIBODIES Routine 02/09/2024 11:10 EDT RHEUMATOID FACTOR Routine 02/09/2024 11: 10 EDT ANTI NUCLEAR AB (ANDRÉS), IFA Routine 02/09/2024 11:10 EDT documented in this encounter Results * (ABNORMAL) RHEUMATOID FACTOR (02/09/2024 11:10 EDT) Pathologist [facility] Rheumatoid Factor 17.0(H) <12.0 IU/mL 02/09/2024 22:34 EDT [facility] Blood VENOUS BLOOD / Unknown 02/09/2024 11:10 EDT 02/09/2024 22:14 EDT Provider Outr Resulting Lab CHEMISTRY & BLOOD GAS ORDERABLES [facility] [address], [place] [id number] * ANTI NUCLEAR AB (ANDRÉS), IFA (02/09/2024 11:10 EDT) Pathologist [facility] ANDRÉS Interpretation Negative Negative 2023 12:17 EDT [facility] Comment:No titer performed, ANDRÉS Screen is negative. Blood VENOUS BLOOD / Unknown 02/09/2024 11:10 EDT 02/09/2024 22:14 EDT Narrative [facility] - 02/10/2024 12:17 EDT Results were obtained with the [employer] NOVA Lite HEp-2 ANDRÉS Kit by indirect immunofluorescence. Provider Outr Resulting Lab IMMUNOLOGY A ND SEROLOGY ORDERABLES Performing Organization Address City/[facility] Co de Phone Number [facility] [address] [place] [address] * CCP ANTIBODIES (02/09/2024 11:10 EDT) CCP Antibodies <2.5 <5.0 U/mL 02/10/2024 8:39 EDT [facility] Blood VENOUS BLOOD / Unknown 02/09/2024 11:10 EDT 02/09/2024 22:14 EDT Provider Outr Resulting Lab IMMUNOLOGY A ND SEROLOGY ORDERABLES Performing Organization Address City/[facility] Co de Phone Number [facility] [address], [place] [phone] documented in this encounter Visit Diagnoses Not on filedocumented in this encounter Care Teams Line Rider Relationship Specialty Start Date End Date Blanco Myles MD [address] [facility] [address] [place] [address] PCP - General Emergency Medicine 04/07/23 documented as of this encounter
--- OUTSIDE RECORDS SUMMARY | 2024-03-10 10:54 | XMS_ITS | Encounter Summary ---
Author Organization [facility] Address [address] [place] [address] Care Team Providers Care Maintenance Mechanic Technician Name Role Phone Blanco Myles MD Primary Care Provider [phone] Reason for Visit * Reason Comments Follow-up Encounter Details Date Type Department Care Team (Late st Contact Info) Description 12/26/2023 13:45 EDT Office Visit [facility] Ophthalmology - [address] [phone] Anjum Miranda MD [address] [facility], [address] [place] [address] Social History Tobacco Use Types Packs/Day Years Used Date Smoking Tobacco: Former Cigarettes 0.5 15 0 08/1984 - 08/1999 Smokeless Tobacco: Never Tobacco Cessation:Counseling Given: Not Answered Alcohol Use Standard Drinks/Week Comments No 0 [...] No 01/07/2018 Cognitive Status Response Date of Assessm ent Because of a physical, menta l, or emotional condition, do you have serious difficulty concentrating, remembering, or making decisions? (5 years old or older) No 01/07/2018 documented as of this encounter Progress Notes * Anjum Miranda MD - 12/26/2023 1345 EDT Chief Complaint Patient presents with Follow-up HPI Pt here for 8 week f/u for Wet AMD left S/P Avastin left (10-31-23) Recent stroke left sided about 1 month ago [facility] stable both. No floaters or flashes. No pain Base Eye Exam Visual Acuity (Snellen - Linear) Right Left Dist cc 20/25 -2 20/80 +2 Dist ph cc NI Correction: Glasses Tonometry (Applanation, 13:47) Right Left Pressure 13 14 Neuro/Psych Oriented x3: Yes Mood/Affect: Normal Dilation Both eyes: Phenylephrine 2.5%, Tropicamide 1% @ 13:47 Slit Lamp and Fundus Exam Slit Lamp Exam Right Left Conjunctiva/Sclera White and quiet White and quiet Cornea Clear Clear Anterior Chamber Deep and quiet Deep and quiet Iris Dilated Dilated Lens Posterior chamber intraocular lens Posterior chamber intraocular lens Fundus Exam Right Left Disc healthy healthy C/D Ratio 0.3 0.3 Macula rare large drusen foveal PED with adjacent trace SRH Vessels Normal Normal Periphery Attached Attached OCT, Retina - OU - Both Eyes Right Eye Progression has been stable. Left Eye Quality was good. Progression has worsened. Findings include intraretinal fluid, pigment epithelialdetachment, subretinal fluid. Notes Drusen, no fluid right eye Resolution of subretinal fluid, increase in intraretinal fluid over SRfibrosis left eye Intravitreal Injection, Pharmacologic Agent - OS - Left Eye Time Out 12/26/2023. 14:36. Confirmed correct patient, procedure, site, and patient consented. Anesthesia Topical anesthesia was used. Anesthetic medications included Proparacaine 0.5%, Tetracaine 0.5%. Procedure Preparation included 5% betadine to ocular surface, eyelid speculum. A 30 gauge needle was used. Injection: 2 mg aflibercept 2 mg/0.05 mL Route: intravitreal, Site: Left Eye [facility]: 78441-096-43, Lot: [id number], Expiration date: 10/16/2024 Post-op Post injection exam found visual acuity of at least counting fingers. The patient tolerated the procedure well. There were no complications. The patient received written and verbal post procedure care education. Post injection medications were not given. DIAGNOSES: 1. Exudative age-related macular degeneration of left eye with active choroidal neovascularization ([facility]) OCT, RETINA - OU - BOTH EYES INTRAVITREAL INJECTION, PHARMACOLOGIC AGENT - OS - LEFT EYE aflibercept (EYLEA) intravitreal syringe 2 mg 2. Intermediate stage nonexudative age-related macular degeneration of right eye OCT, RETINA - OU -BOTH EYES Assessment Wet age related macular Degeneration left eye Increase in intraretinal fluid over scar 8 weeks s/p Avastin Patient would like to continue treatment to maintain 20/70 vision Subretinal heme may lead to scarring and limit visual recovery with treatment Offer Eylea left eye and continue every 8 weeks for now Patient agrees Eylea injection done to left eye today Obtain prior auth for Eylea HD Intermediate Dry Macular Degeneration right eye Rare large drusen Start AREDS 2 vitamins to reduce risk of vision loss from choroidal neovascular membrane Return in about 8 weeks (around 02/20/2024), or if symptoms worsen or fail to improve, for Dilation, OCT, Avastin left. I am scribing for Dr. Anjum Miranda MD while he is personally performing the service. Ga Iraheta (Scribe) documented in this encounter Plan of Treatment Upcoming Encounters Date Type Department Care Team (Late st Contact Info) Description 04/30/2024 13:00 EDT Office Visit [facility] Ophthalmology - [address] [phone] Anjum Miranda MD [address] [facility], [address] [place] [address] documented as of this encounter Procedures Procedure Name Priority Date/Time Associated Diagnosis Comments INTRAVITREAL INJECTION, PHARMACOLOGIC AGENT - OS - LEFT EYE Routine 12/26/2023 14:53 EDT Exudative age-related macular degeneration of 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) OCT, RETINA - OU - BOTH EYES Routine 12/26/2023 14:47 EDT Exudative age-related macular degeneration of 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) Intermediate stage nonexudative age-related macular degeneration of right eye documented in this encounter Results * INTRAVITREAL INJECTION, PHARMACOLOGIC AGENT - OS - LEFT EYE (12/26/2023 14:53 EDT) Narrative [facility] POINT OF CARE - 12/26/2023 15:22 EDT Time Out 12/26/2023. 14:36. Confirmed correct patient, procedure, site, and patient consented. Anesthesia Topical anesthesia was used. Anesthetic medications included Proparacaine 0.5%, Tetracaine 0.5%. Procedure Preparation included 5% betadine to ocular surface, eyelid speculum. A 30 gauge needle was used. Injection: 2 mg aflibercept 2 mg/0.05 mL ??Route: intravitreal, Site: Left Eye ??[facility]: 34456-497-33, Lot: [id number], Expiration date: 10/16/2024 Post-op Post injection exam found visual acuity of at least counting fingers. The patient tolerated the procedure well. There were no complications. The patient received written and verbal post procedure care education. Post injection medications were not given. Anjum Miranda MD OPHTH CLINIC PROCEDU RES [facility] POINT OF CARE * OCT, RETINA - OU - BOTH EYES (12/26/2023 14:47 EDT) Narrative [facility] OPHTHALMOLOGY - 12/26/2023 15:23 EDT Right Eye Progression has been stable. Left Eye Quality was good. Progression has worsened. Findings include intraretinal fluid, pigment epithelial detachment, subretinal fluid. Notes Drusen, no fluid right eye Resolution of subretinal fluid, increase in intraretinal fluid over SRfibrosis left eye Anjum Miranda MD OPHTH TOMOGRAPHY [facility] OPHTHALMOLOGY documented in this encounter Visit Diagnoses Diagnosis Exudative age-related macular degeneration of left eye with active choroidal neovascularization ([facility])- Primary Intermediate stage nonexudative age-related macular degeneration of right eye documented in this encounter Administered Medications Inactive Administered Medications - up to 3 most recent administrations Medication Order MAR Action Action Date Dose Rate Site aflibercept (EYLEA) intravitreal syringe 2 mg 2 mg, intravitreal, Starting on Fri12/26/23 at 1522, Until Fri12/26/23 at 1522, Routine Given 12/26/2023 15:22 EDT 2 mg Left Eye documented in this encounter Orders Medications Ordered That Blayne ht Not Have Been Administered Count Last Ordered Date First Ordered Date aflibercept (EYLEA) intravit real syringe 2 mg 1 12/26/2023 documented in this encounter Eye Exam Visual Acuity (Snellen - Linear) Right eye Left eye Dist cc 20/25 -2 20/80 +2 Dist ph cc NI Correction: Glasses Tonometry (Applanation, 13:47) Right eye Left eye Pressure 13 14 Neuro/Psych Oriented x3: Yes Mood/Affect: Normal Dilation Both eyes: Phenylephrine 2.5 %, Tropicamide 1% @ 13:47 Slit Lamp Exam Right eye Left eye Conjunctiva/Sclera White and quiet White and shon et Cornea Clear Clear Anterior Chamber Deep and quiet Deep and quiet Iris Dilated Dilated Lens Posterior chamber in traocular lens Posterior chamber intraocular lens Fundus Exam Right eye Left eye Disc healthy healthy C/D Ratio 0.3 0.3 Macula rare large drusen foveal PED wit h adjacent trace SRH Vessels Normal Normal Periphery Attached Attached Care Teams Maintenance Mechanic Technician Relationship Specialty Start Date End Date Blanco Myles MD [address] [place] [address] PCP - General Emergency Medicine 04/07/23 documented as of this encounter
--- OUTSIDE RECORDS SUMMARY | 2024-03-10 10:54 | XMS_ITS | Clinical Summary ---
Author Organization [facility] Address [address] [place] [address] Care Team Providers Care Oven Baker Name Role Phone Blanco Myles MD Primary Care Provider [phone] Allergies Active Allergy Reactions Criticality Noted Date Comments Oxycodone-Acetaminophen Nausea And Vomiting 12/2019 Medications Medication Sig Dispensed Refills Start Date End Date Status acetaminophen (TYLENOL) 500 mg tablet Take 2 Tabs by mouth every 6 hours as needed for Pain. 01/13/2018 Active polyethylene glycol 3350 (MIRALAX) 17 gram packet Take 17 g by mouth daily. 01/14/2018 Active aspirin 81 mg EC tablet Take 1 Tablet by mouth daily. Active buPROPion (WELLBUTRIN SR) 150 mg SR tablet Take 1 Tablet by mouth 2 times daily. Active pravastatin (PRAVACHOL) 20 mg tablet Take 1 Tablet by mouth at bedtime. Active temazepam (RESTORIL) 15 mg capsule Take 1 Capsule by mouth at bedtime as needed for Sleep. Active nitroGLYCERIN (NITROSTAT) 0.[address] 1 Tablet under the tongue every 5 minutes as needed for Chest Pain. Active Multivitamins with Minerals tablet tablet Take 1 Tab by mouth daily. 01/14/2018 Active docosahexanoic acid/epa (FISH OIL ORAL) Take by mouth daily. Active cyanocobalamin (VITAMIN B-12) 500 mcg tablet Take 1 Tablet by mouth daily. Active acebutoloL (SECTRAL) 200 mg capsule Take 1 Capsule by mouth 2 times daily. Active IRBESARTAN-HYDROCHLORO THIAZIDE ORAL Take by mouth. Active vit C/E/Zn/coppr/lutein/ze axan (PRESERVISION AREDS-2 ORAL) Take by mouth. Active Active Problems Problem Noted Date Diagnosed Date Choroidal neovascular membrane of left eye 04/07 PVD (posterior vitreous detachment), both eyes 0 04/07/2023 Nuclear sclerosis of both eyes 04/07/2023 Exudative age-related macula r degeneration of left eye with active choroidal neovascularization ([facility]) 04/07/2023 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 04/07/2023 Stented coronary artery 09/29/2019 Coronary artery disease without angina pectoris 09/29/2019 Combined forms of age-related cataract of both e yes 09/09/2019 Overview: Added automatically from request for surgery [id number] Acute blood loss anemia 01/13/2018 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 01/07/2018 HTN (hypertension) Encounters Date Type Department Care Team Description 02/27/2024 13:45 EDT Office Visit [facility] Ophthalmology [address] [address] Anjum Miranda MD 02/09/2024 Lab Requisition [facility] Pathology & Laboratory Medicine [address] [address] Outr Resulting Lab, Provider 12/26/2023 13:45 EDT Office Visit [facility] Ophthalmology [address] [address] Anjum Miranda MD from Last 3 Months Surgical History Surgery Date Site/Laterality Comments TOTAL KNEE ARTHROPLASTY 2011 Right in [place] s/p I&D - antibiotics then 2 nd TKR 2011- [place] no problems CORONARY ANGIOPLASTY WITH STENT PLACEMENT 08/18/2018 - 08/17/2019 2 stents REVISION TOTAL KNEE ARTHROPLASTY 08/18/2017 - 08/17/2018 s/p irrigation,debridement and 2 -stage revision [place] - no problems TONSILLECTOMY 08/18/1944 - 08/17/1945 [place] - no problems RHINOPLASTY 08/18/1991 - 08/17/1992 [place] - no problems HAMMER TOE SURGERY 08/18/2003 - 08/17/2004 [place]- no problems FEMUR FRACTURE SURGERY 08/18/2018 - 08/17/2019 ORIF right periprosthetic fx above his revision TKR [place]- no problems MOHS SURGERY local [place] XCAPSL CTRC RMVL INSJ IO LENS PROSTH W/O ECP 09/29/2019 Eye/Left Cataract Extraction w/IOL Implant, LEFT EYE performed by Mu Acosta MD at [facility] Medical devices from this surgery are in the Medical Devices section. CATARACT REMOVAL WITH IMPLANT CATARACT REMOVAL INTRAOCULAR LENS PROSTHESIS INSERTION 09/29/[address] 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 Anemia s/p 2018 femur f x repair - 2units PRB Depression controlled with med Cancer ([facility]) skin cancer Other states following surge ry of eye and adnexa Stroke ([facility]) Family History Medical History Relation Comments Throat cancer Mother Relation Status Comments Mother Social History Tobacco Use Types Packs/Day Years Used Date Smoking Tobacco: Former Cigarettes 0.5 15 0 08/1984 - 08/1999 Smokeless Tobacco: Never Tobacco Cessation:Counseling Given: Not Answered Alcohol Use Standard Drinks/Week Comments No 0 (1 standard drink = 0.6 oz pur e alcohol) quit 1979 - recovery Interpersonal Safety Answer Date Record ed Physically Hurt Never 03/20/2020 Verbally Threaten Not on file 03/20/2020 Sex and Gender Information Value Date Recorded Sex Assigned at Not on file Gender Identity Male 09/20/2019 15:02 EST Sexual Orientation Not on file Obstetrics History Last Filed Vital Signs Vital Sign Reading Time Taken Comments Blood Pressure 152/89 10/14/2019 1445 EST Pulse 72 01/13/2018 1053 EDT Temperature 36.1 ??C (97 ??F) 10/14/2019 1445 EST Respiratory Rate 16 10/14/2019 1445 EST Oxygen Saturation 99% 10/14/2019 1445 EST Inhaled Oxygen Concentration - - Weight 95.3 kg (210 lb 1.6 oz) 10/14/[address] Height 182.9 cm (6') 10/08/2019 1150 EST Body Mass Index 28.49 10/08/2019 1150 EST Plan of Treatment Upcoming Encounters Date Type Department Care Team (Late st Contact Info) Description 04/30/2024 13:00 EDT Office Visit [facility] Ophthalmology - [address] [phone] Anjum Miranda MD [address] [facility], [address] [place] [address] Health Maintenance Due Date Last Done Comments RSV Immunization ( o r 60+ Years) (1 - 1-dose 60+ series) 1999 Fall Risk Screening 12/06/2004 COVID-19 Vaccine (2022-24 season) 2023 Medical Devices Implanted Type Area Cell Lead Device Identifier Shelf Expiration Date Model / Serial / Lot Lens Intraocular Monfocl Ant Bicnvx Opt Foldable +21.0d Wavefront [id number] - [id number] - [id number] Implanted:Qty: 1 on 09/29/2019 by Mu Acosta MD at [facility] Lens Left: Eye [employer] [id number] 04/17/2024 [id number] .[id number] / [id number] / Lens Intraocular Monfocl Ant Bicnvx Opt Foldable +20.5d [employer] [id number] - [id number] - [id number] Implanted:Qty: 1 on 10/14/2019 by Mu Acosta MD at [facility] Lens Right: Eye [employer] [id number] 03/17/2024 [id number] .[id number] / [id number] / Procedures Procedure Name Priority Date/Time Associated Diagnosis Comments INTRAVITREAL INJECTION, PHARMACOLOGIC AGENT - OS - LEFT EYE Routine 02/27/2024 14:57 EDT Exudative age-related macular degeneration of 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) OCT, RETINA - OU - BOTH EYES Routine 02/27/2024 14:44 EDT Exudative age-related macular degeneration of 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) Intermediate stage nonexudative age-related macular degeneration of right eye RHEUMATOID FACTOR Routine 02/09/2024 11: 10 EDT ANTI NUCLEAR AB (ANDRÉS), IFA Routine 02/09/2024 11:10 EDT CCP ANTIBODIES Routine 02/09/2024 11:10 EDT INTRAVITREAL INJECTION, PHARMACOLOGIC AGENT - OS - LEFT EYE Routine 12/26/2023 14:53 EDT Exudative age-related macular degeneration of 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) OCT, RETINA - OU - BOTH EYES Routine 12/26/2023 14:47 EDT Exudative age-related macular degeneration of 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) Intermediate stage nonexudative age-related macular degeneration of right eye from Last 3 Months Results * INTRAVITREAL INJECTION, PHARMACOLOGIC AGENT - OS - LEFT EYE (02/27/2024 14:57 EDT) Narrative [facility] POINT OF CARE - 02/27/2024 15:03 EDT Time Out 02/27/2024. 14:57. Confirmed correct patient, procedure, site, and patient consented. Anesthesia Topical anesthesia was used. Anesthetic medications included Proparacaine 0.5%, Tetracaine 0.5%. Procedure Preparation included 5% betadine to ocular surface, eyelid speculum. A 30 gauge needle was used. Injection: 8 mg aflibercept 8 mg/0.07 mL ??Route: intravitreal, Site: Left Eye ??[facility]: [id number], Lot: [id number], Expiration date: 12/15/2024 Post-op Post injection exam found visual acuity of at least counting fingers. The patient tolerated the procedure well. There were no complications. The patient received written and verbal post procedure care education. Post injection medications were not given. Anjum Miranda MD OPHTH CLINIC PROCEDU RES [facility] POINT OF CARE * OCT, RETINA - OU - BOTH EYES (02/27/2024 14:44 EDT) Narrative [facility] OPHTHALMOLOGY - 02/27/2024 15:03 EDT Right Eye Progression has been stable. Findings include normal foveal contour. Left Eye Quality was good. Progression has been stable. Findings include intraretinal fluid, pigment epithelial detachment. Notes Drusen, no fluid right eye intraretinal fluid over SRfibrosis left eye Anjum Miranda MD OPHTH TOMOGRAPHY Performing Organization Address [facility] Co de Phone Number [facility] OPHTH[facility] * CCP ANTIBODIES (02/09/2024 11:10 EDT) Pathologist [facility] CCP Antibodies <2.5 <5.0 U/mL 02/10/2024 8:39 EDT [facility] Blood VENOUS BLOOD / Unknown 02/09/2024 11:10 EDT 02/09/2024 22:14 EDT Provider Outr Resulting Lab IMMUNOLOGY A ND SEROLOGY ORDERABLES Performing Organization Address [facility] Co de Phone Number [facility] [address] [place] [address] * (ABNORMAL) RHEUMATOID FACTOR (02/09/2024 11:10 EDT) Pathologist [facility] Rheumatoid Factor 17.0(H) <12.0 IU/mL 02/09/2024 22:34 EDT [facility] Blood VENOUS BLOOD / Unknown 02/09/2024 11:10 EDT 02/09/2024 22:14 EDT Provider Outr Resulting Lab CHEMISTRY & BLOOD GAS ORDERABLES Performing Organization Address [facility] Co de Phone Number [facility] [address] [place] [address] * ANTI NUCLEAR AB (ANDRÉS), IFA (02/09/2024 11:10 EDT) Pathologist [facility] ANDRÉS Interpretation Negative Negative 2023 12:17 EDT [facility] Comment:No titer performed, ANDRÉS Screen is negative. Blood VENOUS BLOOD / Unknown 02/09/2024 11:10 EDT 02/09/2024 22:14 EDT Narrative [facility] - 02/10/2024 12:17 EDT Results were obtained with the [employer] NOVA Lite HEp-2 ANDRÉS Kit by indirect immunofluorescence. Provider Outr Resulting Lab IMMUNOLOGY A ND SEROLOGY ORDERABLES Performing Organization Address [facility] Co de Phone Number [facility] [address] [place] [address] * INTRAVITREAL INJECTION, PHARMACOLOGIC AGENT - OS - LEFT EYE (12/26/2023 14:53 EDT) Narrative [facility] POINT OF CARE - 12/26/2023 15:22 EDT Time Out 12/26/2023. 14:36. Confirmed correct patient, procedure, site, and patient consented. Anesthesia Topical anesthesia was used. Anesthetic medications included Proparacaine 0.5%, Tetracaine 0.5%. Procedure Preparation included 5% betadine to ocular surface, eyelid speculum. A 30 gauge needle was used. Injection: 2 mg aflibercept 2 mg/0.05 mL ??Route: intravitreal, Site: Left Eye ??[facility]: 05396-851-43, Lot: [id number], Expiration date: 10/16/2024 Post-op Post injection exam found visual acuity of at least counting fingers. The patient tolerated the procedure well. There were no complications. The patient received written and verbal post procedure care education. Post injection medications were not given. Anjum Miranda MD OPHTH CLINIC PROCEDU RES Performing Organization Address [facility] Co de Phone Number [facility] POINT OF CARE * OCT, RETINA - OU - BOTH EYES (12/26/2023 14:47 EDT) Narrative [facility] OPHTHALMOLOGY - 12/26/2023 15:23 EDT Right Eye Progression has been stable. Left Eye Quality was good. Progression has worsened. Findings include intraretinal fluid, pigment epithelial detachment, subretinal fluid. Notes Drusen, no fluid right eye Resolution of subretinal fluid, increase in intraretinal fluid over SRfibrosis left eye Anjum Miranda MD OPHTH TOMOGRAPHY [facility] OPHTHALMOLOGY from Last 3 Months Advance Directives For more information, please contact: [phone] * Full Code (Latest Code Status on File) Date Activated Date Inactivated Comments 10/14/2019 11:52 10/14/2019 17:09 Question Answer Comments Reason for decision includes: Other (Please spec destinee) Specify other: not discussed Who participated in the discussion? Not Discusse d * Full Code Date Activated Date Inactivated Comments 09/29/2019 12:30 09/29/2019 17:15 Question Answer Comments Reason for decision includes: Other (Please spec destinee) Specify other: not discussed Who participated in the discussion? Not Discusse d * Full Code Date Activated Date Inactivated Comments 01/07/2018 21:28 01/13/2018 14:41 Question Answer Comments Reason for decision includes: Full code consistent with overall plan of care Who participated in the discussion? Patient Care Teams Oven Baker Relationship Specialty Start Date End Date Blanco Myles MD [address] [facility] [address] [place] [address] PCP - General Emergency Medicine 04/07/23
--- OUTSIDE RECORDS SUMMARY | 2024-03-10 10:54 | XMS_ITS | Encounter Summary ---
Author Organization [facility] [place] [address] Care Team Providers Care Counter Tacker Name Role Phone Karo Otero MD Primary Care Provider [phone] Reason for Referral * Consultation (Routine) - Specialty Diagnoses / Procedures Referred By Contact Referred To Contact Cardiac Rehabilitation Diagnoses Non-ST elevation myocardial infarction (NSTEMI) Dick Renteria MD [facility] [place] [address] Cardiac Rehab, [address] [place] [address] Referral ID Status Reason Start Date Expiration Date V isits Requested Visits Authorized [id number] Consult, Test & Treat 11/20/2017 05/19/2018 36 36 Reason for Visit * Auth/Cert Specialty Diagnoses / Procedures Referred By Contac t Referred To Contact Diagnoses NSTEMI (non-ST elevated myocardial infarction) [place], CP ?CAD Procedures CARDIAC CATHETERIZATION PHOEBE IPI Referral ID Status Reason Start Date Expiration Date Visits Re quested Visits Authorized [id number] 1 1 Encounter Details Date Type Department Care Team (Latest Contact Info) Description 11/18/2017 8:11 PM EDT - 11/20/2017 10:59 AM EDT Hospital Encounter Intermediate [place] [id number] Sumeet Chiang MD [facility] [place] [address] Dick Renteria MD [facility] [place] [address] Non-ST elevation myocardial infarction (NSTEMI) Discharge Disposition: Home Social History Tobacco Use [...] Sign Reading Time Taken Comments Blood Pressure 156/80 11/20/2017 7:47 AM EDT Pulse 57 11/20/2017 4:31 AM EDT Temperature 37 ??C (98.6 ??F) 11/20/2017 7:47 AM EDT Respiratory Rate 20 11/20/2017 7:47 AM EDT Oxygen Saturation 100% 11/20/2017 7:47 AM EDT Inhaled Oxygen Concentration - - Weight 94.6 kg (208 lb 8.9 oz) 11/20/2017 5:00 A M EDT Height 180.3 cm (5' 11) 11/18/2017 8:19 PM EDT Body Mass Index 29.09 11/18/2017 8:19 PM EDT documented in this encounter Discharge Summaries * Lara Bass, GEORGIE - 11/20/2017 10:59 AM EDT Images from the original note were not included. Discharge Summary Patient Name: Tra Brothers III Patient Age: 76 y.o. Language: Bengali Race: White Ethnicity: OR Admit date: 11/18/2017 . Discharge date and time: 11/20/2017 11:02 AM Attending Physician: No att. providers found Discharge Physician: No att. providers found Follow-up Recommendations for Providers: 1. S/P PCI to OM1 and LAD. Continue DAPT for a minimum of one year (plavix 75 mg and aspirin 81 mg). After one year, discontinue plavix, continue aspirin 81 mg indefinitely as tolerated. 2. Discharge weight 94.6 kg 3. Started on metoprolol succinate 25 mg daily, and will continue home regimen of losartan/HCTZ, please monitor HR & BP 4. Baseline creatinine around 1.5 (admit 1.46, post cath 1.54). Given fluids pre and post cath given CKD. Recommend recheck at PCP follow up. 5. Right radial access site 6. Pravastatin switched to atorvastatin, patient tolerated well while inpatient 7. TSH 6.29, Free T3 2.6, Free T4 1.16, recommend recheck at PCP follow up, patient not currently on synthroid Inpatient Provider Contact Information: Lara Bass, RADIO STATION ENGINEER Discharge Diagnoses (Hospital Problems) and Secondary Diagnoses (Chronic Problems): Active Hospital Problems Diagnosis ??? Non-ST elevation myocardial infarction (NSTEMI) ??? Essential hypertension ??? HLD (hyperlipidemia) ??? NSTEMI (non-ST elevated myocardial infarction) Resolved Hospital Problems Diagnosis Date Resolved No resolved problems to display. Active Non-Hospital Problems Diagnosis ??? History of SCC (squamous cell carcinoma) of skin ??? History of basal cell carcinoma ??? AK (actinic keratosis) Operations/Major Procedures: ECHO 11/19/2017 SUMMARY: ? 1. The left ventricular chamber size is normal. ??Mild concentric left ventricular hypertrophy is observed. ??Basal septal hypertrophy is observed. (1.3cm) ??There is normal global left ventricular systolic function. ??The quantitative left ventricular ejection fraction by biplane Roman's method is 64%. ??There are left ventricular segmental wall motion abnormalities present, as shown in the diagram below. 2. The right ventricle is probably normal in size. ??Right ventricular global systolic function is normal. 3. Mild (1+/4+) aortic valve regurgitation is present. 4. See remainder of report for additional findings. ?? Cardiac Catheterization 11/19/2017 ?? Resting ?? Systolic Diastolic EDP Mean Ao 151 76 ? LV ? Post Contrast ?? Systolic Diastolic EDP Mean Ao 151 76 ?? 106 LV 139 ?? 17 ? Comments: ??AO Opening- 129/70 (93). ? Coronary Angiography: ?Dominance: Right ?Left Main ?There was a 20% calcified diffuse stenosis of the distal segment of ?the left main artery. ??The left main was large. ?Left Anterior Descending ?There was mild diffuse (<=25% stenosis) disease of the entire vessel ?segment of the left anterior descending artery (LAD). ??The proximal ?segment of the LAD had a calcified long segmental 20% stenosis. ?There also was a 75% eccentric long segmental stenosis of the mid ?segment of the LAD. ?Left Circumflex ?There was mild diffuse (<=25% stenosis) disease of the entire vessel ?segment of the left circumflex artery (LCX). ??The LCX was large. ?There was a 95% single discrete stenosis of the proximal segment of ?the first obtuse marginal branch (OM1) of the LCX. ??The OM1 was ?large. ?Right Coronary Artery ?There was mild diffuse (<=25% stenosis) disease of the entire vessel ?segment of the right coronary artery (RCA). ??The RCA was large. ??The ?proximal segment of the RCA had a long segmental 20% stenosis. ? 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 History of Presentation: Mr. Brothers is a 76-year-old gentleman, transferred from [facility], with no known CAD, PMH of hypertension, HLD, CKD stage 3; presented this afternoon with complaint of chest pain. ?? SSCP last night at rest, lasting for 30 mins, subsided with Naproxen. Worse episode this AM,after climbing stairs, lasting 1 hr, called EMS. Subsided with NTG slg x 2. Since then had 2 more episodes,with exertion, subside with NTG slg. Radiating to Left arm + SOB and + diaphoresis with CP. No palpitations / nausea / vomiting Never had chest pains in past + fatigue since few months ? OSH course: ECG : NSR, normal axis, prolonged [place], J-point elevation in V2 less than 1mm. Troponin I : 0.21 ( 0.06) Vitals: BP : 143/93, 70bpm, 95 % on RA. other labs : Creat : 1.57, k 4.1, LFTs normal. WBC 5.1, hgb 13, platelet 158 Cxray : apparently No acute process ( no report in OSH note ) ?? OSH meds : PLAVIX 300mg IV heparin NTG slg lipitor 80mg/n metoprolol 50mg po ASA 324mg ?? Home cardiac meds : ASA, Losartan/HCTZ, Pravachol ?? Prior cardiac w/u - none in eDH. Per Pt had unremarkable Nuclear stress test and Echo 5 yrs ago ( in [place] ), tests done prior to Knee Hemiarthroplasty ?? Hospital Course: On admission to [facility], the patient had no complaints of chest pain or shortness of breath. Telemetry was attached which showed normal sinus rhythm. Heparin drip was infusing. [facility] records/transfer records were reviewed. Baseline labs were checked and/or drawn. NSTEMI Patient sent from [facility] in the setting of chest pain with elevated troponin. Cardiac enzymes were trended and positive with Troponin T with a peak of 0.09 with ULN <0.01). Stefany 136, CLEMENT 4. Echo with LVEF 64% and wall motion abnormalities noted in the base and mid posterolateral region, normal RV function with no significant valve disease . He was continued on Continue ASA + heparin gtt + metoprolol + statin + SL nitro prn. The patient was sent to the cardiac catheterization lab on 11/18/2017 for coronary angiography where he had PCI to the OM1 and LAD lesions (noted in the cardiac catheterization report above). Given his CKD (baseline creatinine of 1.5), he was given fluids pre and post cath. Creatinine remained stable post cath, with a discharge creatinine of 1.5. He was discharged home on ASA, Statin, Plavix, BB, REJI. Seen by cardiac rehab prior to discharge home today. ? Hypertension The patient's blood pressure in the 12 hours prior to discharge has been (133-156)/(75-80). He willbe discharged on metoprolol succinate 25 mg daily in addition to his home regimen of losartan/HCTZ. Hyperlipidemia Lipid profile showed Total cholesterol 158, HDL 53, Tri 96, LDL 86. The patient was started on atorvastatin 80 mg this admission which he has been tolerating well. ?? CKD stage III Patient with baseline creatinine around 1.5. He was admitted with a creatinine of 1.46 and discharged with a creatinine of 1.54. He was given pre and post cath fluids given his CKD. Routine screening labs revealed the following: HA1c 5.4 TSH 6.29 Free T3 2.6, Free T4 1.16 Former Smoker The patient was evaluated by the cardiac rehab team. The patient tolerated supervised ambulation inthe hallway and up/downstairs with no anginal symptoms. It was recommended that the patient return home and participate in a supervised cardiac rehab program. The patient was discharged home in stable condition. Functional and Cognitive Status: Patient is alert and oriented x3, ambulatory, independent and freeof anginal symptoms. Important Studies and Lab Data: Labs: Lab Results Component Value Date WBC 6.3 11/20/2017 HGB 13.3 (L) 11/20/2017 HCT 40.0 (L) 11/20/2017 PLATELET 135 (L) 11/20/2017 Recent Labs 11/18/17 203 INR 1.0 Lab Results Component Value Date NA 144 11/20/2017 K 4.3 11/20/2017 CL 104 11/20/2017 CO2 22 11/20/2017 BUN 20 11/20/2017 CREATININE 1.54 (H) 11/20/2017 Recent Labs 11/20/17 0422 TSH 6.29* Recent Labs 11/19/17 0225 HA1C 5.4 Recent Labs 11/20/17 0422 11/19/17 0839 11/19/17 0225 CK 127 105 104 TROPONINT 0.16* 0.04* 0.05* Lab Results Component Value Date CHLPL 158 11/19/2017 HDL 53 11/19/2017 CHOLHDL 3.0 11/19/2017 TRIG 96 11/19/2017 LDLCHOL 86 11/19/2017 Pending Studies and Lab Data: BMP and TSH recheck at PCP follow up in approximately one week Discharge Conditions/Prognosis: The patient was discharged in stable condition. Right wrist is clean, dry and intact, with mild bruising around cath insertion site. No ooze or bruit noted. Radial pulse is present. Intact color, sensation and motion. Capillary refill is under 2 seconds. Discharge to: Home Updated Allergies/ADRs: Allergies Allergen Reactions ??? Oxycodone Nausea Only ??? Pollen Extracts Immunizations Given this Hospitalization: There is no immunization history on file for this patient. Discharge Medications: Your Medications New Medications Dose Details atorvastatin 80 mg Tab Commonly known as: LIPITOR Take 1 tablet by mouth every evening. 80 mg Quantity: 90 tablet Refills: 3 clopidogrel 75 mg Tab Commonly known as: PLAVIX Take 1 tablet by mouth daily. Start taking on: 11/21/2017 75 mg Quantity: 90 tablet Refills: 3 metoprolol succinate 25 mg Tablet sr Commonly known as: TOPROL-XL Take 1 tablet by mouth daily. 25 mg Quantity: 30 tablet Refills: 12 nitroGLYcerin 0.4 mg Subl Commonly known as: NITROSTAT Place 1 tablet under the tongue every 5 minutes as needed for Chest pain. 0.4 mg Quantity: 25 tablet Refills: 3 Continued medications, unchanged Dose Details aspirin 81 mg Tbec Take 81 mg by mouth daily. 81 mg Refills: 0 buPROPion 150 mg Tb12 Commonly known as: WELLBUTRIN SR or ZYBAN take 1 tablet by mouth twice a day Refills: 0 losartan-hydrochlorothiazide 100-25 mg Tab Commonly known as: HYZAAR Refills: 0 temazepam 15 mg Cap Commonly known as: RESTORIL take 1 capsule by mouth at bedtime Refills: 0 STOPPED Medications HYDROcodone-acetaminophen 10-325 mg Tab Commonly known as: NORCO imiquimod 5 % Crpk Commonly known as: ALDARA pravastatin 20 mg Tab Commonly known as: PRAVACHOL Smoking Status at Discharge: History Smoking Status ??? Former Smoker ??? Packs/day: 0.50 ??? Quit date: 11/17/1999 Smokeless Tobacco ??? Never Used Instructions Given to Patient at Discharge: There are no outpatient Patient Instructions on file for this admission. General Instructions Anti-coagulation follow up: N/A Call your doctor if: Chest pain, shortness of breath, pain or swelling in legs occurs. If you have non-emergent questions between now and the time of your follow up appointments: During 8am-5pm Friday through Friday call [phone] to speak with a nurse in the cardiology clinic All other times call [phone] and ask to speak to the hybrid car mechanic recreation teacher. Return to work: Retired, no heavy lifting for one week (nothing greater than 5-7 lbs). Driving: No driving for 48 hours after catheterization. Follow up Appointments: PCP Karo Otero MD [phone] Your follow up appointment is scheduled for November 26, 2017 at 10:35 am (previously scheduled) Cardiology - Dr. Sukh Mishra [address] [place] [address], [place] [address] Your follow up appointment is scheduled for December 30, 2017 at 8:20 am (8 am arrival). Home oxygen therapy: N/A Arrangements for VNA/home care: none Future Appointments and Orders Future Appointments Provider Department Dept Phone 12/30/2017 8:20 AM Sukh Mishra Jr., MD Cardiology at [place] [phone] 08/14/2018 8:45 AM Mathew Fernando MD Dermatology at [place] [phone] Future Orders Complete By Expires Referral to Cardiac Rehab [[id number] Custom] As directed Process Instructions: If no progress note charted, please enter Clinical details in comments. Scheduling Instructions: Questions: My question or request is: NSTEMI. Cardiac rehab at [facility]. Discharge References/Attachments Jasmin Bass APRN 11/20/2017 documented in this encounter Discharge Instructions * Discharge Instructions* Lara Bass APRN - 11/20/2017 9:22 AM EDT Anti-coagulation follow up: N/A Call your doctor if: Chest pain, shortness of breath, pain or swelling in legs occurs. If you have non-emergent questions between now and the time of your follow up appointments: During 8am-5pm Friday through Friday call [phone] to speak with a nurse in the cardiology clinic All other times call [phone] and ask to speak to the hybrid car mechanic recreation teacher. Return to work: Retired, no heavy lifting for one week (nothing greater than 5-7 lbs). Driving: No driving for 48 hours after catheterization. Follow up Appointments: PCP Karo Otero MD [phone] Your follow up appointment is scheduled for November 26, 2017 at 10:35 am (previously scheduled) Cardiology - Dr. Sukh Mishra [address] [place] [address], [place] [address] Your follow up appointment is scheduled for December 30, 2017 at 8:20 am (8 am arrival). Home oxygen therapy: N/A Arrangements for VNA/home care: none documented in this encounter Medications at Time of Discharge Medication Sig Dispensed Refills Start Date End Date buPROPion (WELLBUTRIN SR OR ZYBAN) 150 mg Tablet Sustained Release 12 hr take 1 tablet by mouth twice a day 0 12/23/2016 amoxicillin (AMOXIL) 500 mg Capsule 2,000 mg as needed. Before dental visits 0 08/13/2017 04/06/2019 clopidogrel (PLAVIX) 75 mg Tablet Take 1 tablet by mouth daily. 90 tablet 3 11/21/2017 10/06/2018 nitroGLYcerin (NITROSTAT) 0.4 mg Tablet, Sublingual Place 1 tablet under the tongue every 5 minutes as needed for Chest pain. 25 tablet 3 11/20/2017 03/30/2019 atorvastatin (LIPITOR) 80 mg Tablet Take 1 tablet by mouth every evening. 90 tablet 3 11/20/2017 10/18/2019 metoprolol succinate (TOPROL-XL) 25 mg Tablet Sustained Release 24 hr Take 1 tablet by mouth daily. 30 tablet 12 11/20/2017 12/30/2017 aspirin 81 mg Tablet, Delayed Release (E.C.) Take 81 mg by mouth daily. 12/04/2022 losartan-hydrochlorothi azide (HYZAAR) 100-25 mg Tablet Take 0.5 tablets by mouth daily. 0 11/15/2016 04/01/2018 temazepam (RESTORIL) 15 mg Capsule take 1 capsule by mouth at bedtime 0 09/29/2016 06/19/2023 documented as of this encounter Progress Notes * Mathew Stringer RN - 11/20/2017 10:29 AM EDT Discharge orders written, patient understands instructions and follow up visits, patient discharge to home with friend. * Dick Renteria MD - 11/20/2017 8:33 AM EDT Images from the original note were not included. 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 Non-ST elevation myocardial infarction (NSTEMI) ??? Essential hypertension ??? HLD (hyperlipidemia) ??? NSTEMI (non-ST elevated myocardial infarction) Resolved Hospital Problems Diagnosis Date Resolved No resolved problems to display. Interval History: No complaints of chest pain overnight. Right wrist is clean, dry and intact. No hematoma or ooze. Radial pulse is present. Intact color, sensation and motion. Capillary refill is under 2 seconds. Pending discharge home today. Review of Systems: Review of Systems Constitutional: Negative for activity change, appetite change, chills, diaphoresis and fatigue. HENT: Negative for sore throat and trouble swallowing. Eyes: Negative. Respiratory: Negative for cough, chest tightness and shortness of breath. Cardiovascular: Negative for chest pain, palpitations and leg swelling. Gastrointestinal: Negative for abdominal distention and abdominal pain. Endocrine: Negative. Genitourinary: Negative for difficulty urinating. Musculoskeletal: Negative for back pain. Skin: Negative for color change and pallor. Neurological: Negative for dizziness, syncope, light-headedness and numbness. Psychiatric/Behavioral: Negative for dysphoric mood. Telemetry: Heart Rate: [57-62] Sinus Bradycardia/ NSR, occasional pacs Meds: Scheduled Meds: ??? melatonin 3 mg Oral Nightly ??? sodium chloride 0.9 % 5 mL Intravenous Q12H ??? buPROPion 150 mg Oral BID ??? temazepam 15 mg Oral Nightly ??? aspirin 81 mg Oral Daily ??? atorvastatin 80 mg Oral QPM ??? clopidogrel 75 mg Oral Daily ??? sodium chloride 0.9 % 5 mL Intravenous BID ??? sodium chloride 0.9 % 5 mL Intravenous Q12H ??? losartan 100 mg Oral Daily ??? metoprolol 12.5 mg Oral 2 times per day Continuous Infusions: ??? sodium chloride 0.9% 100 mL/hr (11/18/17 4585) PRN Meds:sodium chloride 0.9 %, lidocaine, sodium chloride 0.9 %, lidocaine, nitroGLYcerin, sodium chloride 0.9 %, lidocaine, docusate sodium Physical Exam: Vital Signs: Last value Range last 24 hrs Temperature Temp: 37 ??C (98.6 ??F) Temp: [36.3 ??C (97.3 ??F)-37 ??C (98.6 ??F)] Heart Rate Heart Rate: 57 Heart Rate: [48-67] Blood Pressure BP: 156/80 BP: (91-195)/(65-111) Respiratory Rate Resp: 20 Resp: [10-26] SpO2 SpO2: 100 % SpO2: [93 %-100 %] Intake/Output Summary (Last 24 hours) at 11/20/17 0830 Last data filed at 11/20/17 0431 Gross per 24 hour Intake 1660 ml Output 1525 ml Net 135 ml Patient Vitals for the past 168 hrs: Weight 11/20/17 0500 94.6 kg (208 lb 8.9 oz) 11/19/17 0645 94.6 kg (208 lb 8.9 oz) 11/18/172018 97 kg (213 lb 13.5 oz) 11/18/172014 97 kg (213 lb 13.5 oz) Physical Exam Constitutional: He is oriented to person, place, and time. He appears well- developed and well-nourished. No distress. HENT: Head: Normocephalic and atraumatic. Eyes: Conjunctivae are normal. Right eye exhibits no discharge. Left eye exhibits no discharge. Neck: Normal range of motion. Neck supple. No JVD present. Cardiovascular: Normal rate, regular rhythm, normal heart sounds and intact distal pulses. Exam reveals no gallop and no friction rub. No murmur heard. Right wrist is clean, dry and intact. Mild bruising around cath site, no bruit noted, radial pulse is present. Intact color, sensation and motion. Capillary refill is under 2 seconds. Pulmonary/Chest: Effort normal and breath sounds normal. No respiratory distress. He has no rales. Abdominal: Soft. Bowel sounds are normal. Musculoskeletal: Normal range of motion. He exhibits no edema. Neurological: He is alert and oriented to person, place, and time. Skin: Skin is warm and dry. He is not diaphoretic. Psychiatric: He has a normal mood and affect. Nursing note and vitals reviewed. Lab Comments: Recent Labs 11/20/17 0422 11/19/175 11/18/172032 WBC 6.3 6.2 8.1 HGB 13.3* 13.5* 14.8 HCT 40.0* 40.4* 44.9 PLATELET 135* 156 189 Recent Labs 11/18/172032 INR 1.0 Recent Labs 11/20/17 0422 11/19/1722411/18/172032 NA 144 138 141 K 4.3 3.8 3.9 CL 104 103 101 CO2 22 26 25 BUN 20 25* 27* CREATININE 1.54* 1.56* 1.46 Recent Labs 11/18/172032 AST 30 ALT 23 ALKPHOS 88 BILITOT 0.5 BILIDIR 0.1 Recent Labs 11/20/17 0422 11/19/175 11/18/172032 CALCIUM 8.9 8.7 9.2 Recent Labs 11/20/1742111/19/1739 11/19/17224 CK 127 105 104 TROPONINT 0.16* 0.04* 0.05* Pertinent Radiographic/Diagnostic Results: I have independently visualized the following studies: EC11/20/2017 SB 51 BPM, 1st degree AV block, no significant ST segment changes ECHO 11/19/2017 SUMMARY: ?? 1. The left ventricular chamber size is normal. Mild concentric left ventricular hypertrophy is observed. Basal septal hypertrophy is observed. (1.3cm) There is normal global left ventricular systolic function. The quantitative left ventricular ejection fraction by biplane Roman's method is 64%. There are left ventricular segmental wall motion abnormalities present, as shown in the diagram below. 2. The right ventricle is probably normal in size. Right ventricular global systolic function is normal. 3. Mild (1+/4+) aortic valve regurgitation is present. 4. See remainder of report for additional findings. ?? Cardiac Catheterization 11/19/2017 Resting Systolic Diastolic EDP Mean Ao 151 76 LV Post Contrast Systolic Diastolic EDP Mean Ao 151 76 106 LV 139 17 ? Comments: AO Opening- 129/70 (93). ? Coronary Angiography: Dominance: Right ? Left Main There was a 20% calcified diffuse stenosis of the distal segment of the left main artery. The left main was large. ? Left Anterior Descending There was mild diffuse (<=25% stenosis) disease of the entire vessel segment of the left anterior descending artery (LAD). The proximal segment of the LAD had a calcified long segmental 20% stenosis. There also was a 75% eccentric long segmental stenosis of the mid segment of the LAD. ? Left Circumflex There was mild diffuse (<=25% stenosis) disease of the entire vessel segment of the left circumflex artery (LCX). The LCX was large. ? There was a 95% single discrete stenosis of the proximal segment of the first obtuse marginal branch (OM1) of the LCX. The OM1 was large. ? Right Coronary Artery There was mild diffuse (<=25% stenosis) disease of the entire vessel segment of the right coronary artery (RCA). The RCA was large. The proximal segment of the RCA had a long segmental 20% stenosis. ? Conclusions: * Two vessel coronary artery disease (LAD and LCX) * Successful stent insertion of the proximal OM1 lesion * Successful stent insertion of the mid LAD lesion * Recommend continuing clopidogrel 75 mg PO daily for 12 months (see DAPT Recommendations above for more information.) ? Assessment: Tra Brothers III is a 76 y.o. male transferred from [facility], with no known CAD, PMH of hypertension, HLD, CKD stage 3 who was transferred to [facility] in the setting of chest pain with elevated troponin. EKG without acute changes. He has had no further episodes since arrival to [facility]. Patient sent for coronary angiography on 11/19 where he had PCI to the OM1 and LAD lesions. He has remained free of anginal symptoms s/p cath and is will work with cardiac rehab prior to discharge home today. Plan: NSTEMI Continue ASA + heparin gtt + metoprolol + statin + SL nitro Plavix 300 mg given OSH, continue plavix 75 mg Cardiac enzymes 0.09 >> 0.05 >> 0.04, 0.16 (post cath) Stefany 136, CLEMENT 4 Patient without known hx of ASCVD, former smoker Pre-cath fluids due to elevated Cr (1.5), cr today is 1.5 post cath Echo showed LVEF 64% with + WMAs in the base and mid posterolateral region, normal RV function withno significant valve disease S/p PCI to OM1 lesion and LAD lesion HTN Most recent pressures ranging from BP: (133-156)/(75-80) Continue metoprolol and home regimen of losartan 100 mg daily Continue to trend HLD Total 158, HDL 53, Tri 96, LDL 86 Continue atorvastatin 80 mg CKD stage III Estimated Creatinine Clearance: 47.2 mL/min (based on Cr of 1.54). Patient given both pre and post cath fluids, creatinine remains around 1.5 Dispo: Pending discharge home s/p working with cardiac rehab this morning Full Code Discussed with Dick Renteria MD Lara Waggonerleena, RADIO STATION ENGINEER 11/20/2017 Cardiology Staff Addendum I have discussed, reviewed and agree with the documented interval history, Physical findings, Assessment and Plan of care. I have independently interviewed and examined the patient myself and have noadditions to the interval history, physical, assessment or plan of care. * Ernesto Camarena MD - 11/19/2017 10:24 AM EDT Preliminary Cardiac Catheterization Procedure Note: ? Procedure(s) performed:?cors, LHC, PCI to prox OM1, PCI to late mid LAD ? Access:??right radial artery. ? A time-out was conducted prior to the??start of the procedure to verify the correct patient and procedure, procedure location, and all relevant critical information. Informed consent was obtained. ? Preliminary findings:? 95% proximal OM1 disease --> PCI with 3.0 x 22 mm Resolute Truman JENNI. 75% late mid LAD disease --> PCI with 3.0 x 15 mm Resolute Truman JENNI No significant disease in RCA LVEDP 17 mmHg ? The patient tolerated the procedure smoothly and was transferred from the cardiac catheterization lab to the next level of care in good??condition. No evident early complications. ? Full report to follow. Associated attestation - Julita Gomez MD - 11/19/2017 10:46 AM EDT I agree with documentation by fellow. I went to floor and called patient's , but could not reach her to provide an update. Patient updated and no chest pain on transfer. 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 Non-ST elevation myocardial infarction (NSTEMI) ??? Essential hypertension ??? HLD (hyperlipidemia) ??? NSTEMI (non-ST elevated myocardial infarction) Resolved Hospital Problems Diagnosis Date Resolved No resolved problems to display. Interval History: Patient admitted overnight with c/o substernal chest pressure and left arm pain. He has been chest pain free since arrival to [facility]. NPO for cardiac catheterization today. Review of Systems: Review of Systems Constitutional: Positive for diaphoresis. Negative for activity change, appetite change, chills andfatigue. HENT: Negative for sore throat and trouble swallowing. Eyes: Negative. Respiratory: Positive for shortness of breath. Negative for cough and chest tightness. Cardiovascular: Positive for chest pain (chest pressure with radiation to L arm). Negative for palpitations and leg swelling. Gastrointestinal: Negative for abdominal distention and abdominal pain. Endocrine: Negative. Genitourinary: Negative for difficulty urinating. Musculoskeletal: Negative for back pain. Skin: Negative for color change and pallor. Neurological: Negative for dizziness, syncope, light-headedness and numbness. Psychiatric/Behavioral: Negative for dysphoric mood. Telemetry: HR: HR 52-63 NSR/ SB Meds: Scheduled Meds: ??? sodium chloride 0.9 % 5 mL Intravenous Q12H ??? buPROPion 150 mg Oral BID ??? temazepam 15 mg Oral Nightly ??? aspirin 81 mg Oral Daily ??? atorvastatin 80 mg Oral QPM ??? clopidogrel 75 mg Oral Daily ??? sodium chloride 0.9 % 5 mL Intravenous BID ??? sodium chloride 0.9 % 5 mL Intravenous Q12H ??? losartan 100 mg Oral Daily ??? metoprolol 12.5 mg Oral 2 times per day Continuous Infusions: ??? heparin (porcine) 1,000 Units/hr (11/18/172044) ??? sodium chloride 0.9% 100 mL/hr (11/18/17 2336) PRN Meds:sodium chloride 0.9 %, lidocaine, heparin (porcine) AND heparin (porcine), sodium chloride 0.9 %, lidocaine, nitroGLYcerin, sodium chloride 0.9 %, lidocaine, docusate sodium Physical Exam: Vital Signs: Last value Range last 24 hrs Temperature Temp: 36.6 ??C (97.9 ??F) Temp: [36.4 ??C (97.5 ??F)-36.8 ??C (98.2 ??F)] Heart Rate Heart Rate: 57 Heart Rate: [52-58] Blood Pressure BP: 148/89 BP: (132-169)/(68-93) Respiratory Rate Resp: 16 Resp: [16-18] SpO2 SpO2: 99 % SpO2: [95 %-99 %] Intake/Output Summary (Last 24 hours) at 11/19/17 0841 Last data filed at 11/19/17 0800 Gross per 24 hour Intake 240 ml Output 1400 ml Net -1160 ml Patient Vitals for the past 168 hrs: Weight 11/19/17 0645 94.6 kg (208 lb 8.9 oz) 11/18/172018 97 kg (213 lb 13.5 oz) 11/18/172014 97 kg (213 lb 13.5 oz) Physical Exam Constitutional: He is oriented to person, place, and time. He appears well- developed and well-nourished. No distress. HENT: Head: Normocephalic and atraumatic. Eyes: Conjunctivae are normal. Right eye exhibits no discharge. Left eye exhibits no discharge. Neck: Normal range of motion. Neck supple. No JVD present. Cardiovascular: Normal rate, regular rhythm and intact distal pulses. Exam reveals no gallop and nofriction rub. No murmur heard. Pulmonary/Chest: Effort normal and breath sounds normal. No respiratory distress. He has no rales. Abdominal: Soft. Bowel sounds are normal. Musculoskeletal: Normal range of motion. He exhibits no edema. Neurological: He is alert and oriented to person, place, and time. Skin: Skin is warm and dry. He is not diaphoretic. Psychiatric: He has a normal mood and affect. Nursing note and vitals reviewed. Lab Comments: Recent Labs 11/19/1722411/18/172032 WBC 6.2 8.1 HGB 13.5* 14.8 HCT 40.4* 44.9 PLATELET 156 189 Recent Labs 11/18/172032 INR 1.0 Recent Labs 11/19/1722411/18/172032 NA 138 141 K 3.8 3.9 CL 103 101 CO2 26 25 BUN 25* 27* CREATININE 1.56* 1.46 Recent Labs 11/18/172032 AST 30 ALT 23 ALKPHOS 88 BILITOT 0.5 BILIDIR 0.1 Recent Labs 11/19/1722411/18/172032 CALCIUM 8.7 9.2 Recent Labs 11/19/1722411/18/172032 CK 104 119 TROPONINT 0.05* 0.09* Pertinent Radiographic/Diagnostic Results: I have independently visualized the following studies: EC11/19/2017 SB 58 BPM, 1st degree AV block ECHO 11/19/2017: done, pending final read Cardiac Catheterization: Awaiting cardiac catheterization Assessment: Tra Brothers III is a 76 y.o. male transferred from [facility], with no known CAD, PMH of hypertension, HLD, CKD stage 3 who was transferred to [facility] in the setting of chest pain with elevated troponin. EKG without acute changes. He has had no further episodes since arrival to [facility]. Awaiting cardiac catheterization at this time. Plan: NSTEMI Continue ASA + heparin gtt + metoprolol + statin + SL nitro Plavix 300 mg given OSH Cardiac enzymes 0.09 >> 0.05 Stefany 136, CLEMENT 4 Patient without known hx of ASCVD, former smoker Pre-cath fluids due to elevated Cr (1.5) Echo, pending results NPO for Cath today HTN BP: (132-195)/(68-109) Continue metoprolol, add additional antihypertensives as needed Continue to trend HLD Total 158, HDL 53, Tri 96, LDL 86 Continue atorvastatin 80 mg CKD stage III Estimated Creatinine Clearance: 46.6 mL/min (based on Cr of 1.56). Pre- cath fluids Full Code Lara Bass, RADIO STATION ENGINEER 11/19/2017 Cardiology Staff Addendum I have discussed, reviewed and agree with the documented interval history, Physical findings, Assessment and Plan of care. I have independently interviewed and examined the patient myself and have noadditions to the interval history, physical, assessment or plan of care. Cath showed obstructive disease of the LCX and LAD which underwent PCI. Echo showed normal LV function with LCX distribution WMA's, normal RV function without significant valve disease. documented in this encounter H&P Notes * Reagan Andrea MD - 11/18/2017 9:05 PM EDT Cardiology Admission H&P Patient Name: Tra Brothers III Date of : 1940 Age: 76 y.o. Hospital Admit Date: 11/18/2017 Inpatient Attending: Dick Renteria MD PCP: Karo Otero MD Presenting Diagnosis/Chief Complaint: chest pain Active Problem List: Active Hospital Problems Diagnosis ??? Non-ST elevation myocardial infarction (NSTEMI) ??? Essential hypertension ??? HLD (hyperlipidemia) Resolved Hospital Problems Diagnosis Date Resolved No resolved problems to display. History of Present Illness: HPI Mr. Brothers is a 76-year-old gentleman, transferred from [facility], with no known CAD, PMH of hypertension, HLD, CKD stage 3; presented this afternoon with complaint of chest pain. SSCP last night at rest, lasting for 30 mins, subsided with Naproxen. Worse episode this AM,after climbing stairs, lasting 1 hr, called EMS. Subsided with NTG slg x 2. Since then had 2 more episodes,with exertion, subside with NTG slg. Radiating to Left arm + SOB and + diaphoresis with CP. No palpitations / nausea / vomiting Never had chest pains in past + fatigue since few months OSH course: ECG : NSR, normal axis, prolonged [place], J-point elevation in V2 less than 1mm. Troponin I : 0.21 ( 0.06) Vitals: BP : 143/93, 70bpm, 95 % on RA. othes labs : Creat : 1.57, k 4.1, LFTs normal. WBC 5.1, hgb 13, platelet 158 Cxray : apparently No acute process ( no report in OSH note ) OSH meds : PLAVIX 300mg IV heparin NTG slg lipitor 80mg/n metoprolol 50mg po ASA 324mg Home cardiac meds : ASA, Losartan/HCTZ, Pravachol Prior cardiac w/u - none in eDH. Per Pt had unremarkable Nuclear stress test and Echo 5 yrs ago ( in [place] ), tests done prior to Knee Hemiarthroplasty Past Medical History: Past Medical History: Diagnosis Date ??? Essential hypertension 11/18/2017 ??? HLD (hyperlipidemia) 11/18/2017 ??? Non-ST elevation myocardial infarction (NSTEMI) 11/18/2017 Surgical History/Problems: Past Surgical History: Procedure Laterality Date ??? JOINT REPLACEMENT ??? ORTHOPEDIC SURGERY Significant Family History: Family History Problem Relation Age of Onset ??? Heart Disease Neg Hx Social History: Social History Social History ??? Marital status: Spouse name: N/A ??? Number of children: N/A ??? Years of education: N/A Occupational History ??? Not on file. Social History Main Topics ??? Smoking status: Former Smoker Packs/day: 0.50 Quit date: 11/17/1999 ??? Smokeless tobacco: Never Used ??? Alcohol use No ??? Drug use: No ??? Sexual activity: Not on file Other Topics Concern ??? Not on file Social History Narrative REVIEW OF SYSTEMS: General ROS: + fatigue Psychological: + anxiety Ophthalmic: No blurred vision or watery or red eyes. ENT: Negative for ear discharge or running nose or cold or throat swelling. Allergy: negative for itchy/watery eyes Heme: Negative for bleeding, bruising, fatigue, jaundice, night sweats Endocrine: negative for polydipsia/polyuria/ heat intolerance Respiratory: As in HPI CVS: As in HPI GI: No abd pain, change in bowel habits, or black or bloody stools Genitourinary: No dysuria, trouble voiding, or hematuria MSK: negative for joint pain, joint stiffness or joint swelling Neurological: No TIA or stroke symptoms Medications: Prescriptions Prior to Admission Medication Sig Dispense Refill Last Dose ??? buPROPion (WELLBUTRIN SR OR ZYBAN) 150 mg Tablet Sustained Release 12 hr take 1 tablet by mouthtwice a day 0 Taking ??? losartan-hydrochlorothiazide (HYZAAR) 100-25 mg Tablet 0 Taking ??? pravastatin (PRAVACHOL) 20 mg Tablet 0 Taking ??? temazepam (RESTORIL) 15 mg Capsule take 1 capsule by mouth at bedtime 0 Taking ??? imiquimod (ALDARA) 5 % Cream in Packet Apply to left check red patch every HS Friday, Friday, Friday for 8 weeks then D/C 12 each 1 Allergies: Allergies Allergen Reactions ??? Oxycodone PHYSICAL EXAM: Last set of vital signs: BP (!) 169/93 (BP Location (NBP): Left arm, Patient Position: Sitting) Pulse 56 Temp 36.8 ??C (98.2 ??F) (Oral) Resp 18 Ht 180.3 cm (5' 11) Wt 97 kg (213 lb 13.5 oz) SpO2 95% BMI 29.83 kg/m2 Gen/Constitutional: Alert, appears comfortable. HEENT: PATITO, EOMI, No conjunctival pallor or scleral icterus Cardiac/CVS: RRR normal S1 S2 No murmurs, no JVD Pulm/Chest: No crackles or wheezing Abd/GI: No tenderness, not distended, soft, BS present, no organomegaly Musculoskeletal: no edema . Pulses palpable, no calf tenderness Neuro/FACILITATOR: AAO x 3, No evident deficits Skin/Integumentary: No rash LABS: Recent Results (from the past 24 hour(s)) Hemogram Result Value Ref Range WBC 8.1 4.0 - 9.5 x10(3)/mcL RBC 5.15 4.58 - 5.54 x10(6)/mcL Hemoglobin 14.8 13.7 - 16.5 gm/dL Hematocrit 44.9 40.5 - 48.5 % MCV 87.2 82.9 - 93.1 fL MCH 28.7 27.5 - 32.1 pg MCHC 33.0 32.0 - 35.7 gm/dL Platelets 189 145 - 357 x10(3)/mcL RDWSD 41.7 36.0 - 45.0 fL RDWCV 13.2 11.4 - 13.8 % MPV 10.5 7.6 - 12.9 fL nRBC % Auto 0.0 % nRBC Abs Auto 0.000 0.000 - 0.000 x10(3)/mcL Differential, Automated Result Value Ref Range Neutrophils % 62.8 % Neutr Abs (ANC) 5.08 1.70 - 6.10 x10(3)/mcL Lymphocytes % 25.8 % Lymphocytes Abs 2.1 0.9 - 3.2 x10(3)/mcL Monocytes % 8.7 % Monocyte Abs 0.7 0.3 - 0.9 x10(3)/mcL Eosinophils % 1.5 % Eosinophils Abs 0.1 0.0 - 0.4 x10(3)/mcL Basophils % 0.7 % Basophils Abs 0.1 0.0 - 0.1 x10(3)/mcL Immature Gran % 0.50 % Karla Gran Abs 0.04 0.00 - 0.04 x10(3)/mcL A&P: 76-year-old gentleman with no known CAD, with risk factors of HTN, HLD, CKD stage 3; presents with multiple episodes of SSCP radiating to neck and left arm, since last night. Both at rest and with exertion. NTG responsive. ECG : NSR, normal axis, prolonged [place], J-point elevation in V2 less than 1mm. Troponin I : 0.21 ( 0.06) Vitals: BP : 143/93, 70bpm, 95 % on RA. othes labs : Creat : 1.57, k 4.1, LFTs normal. WBC 5.1, hgb 13, platelet 158 Cxray : apparently No acute process ( no report in OSH note ) #) NSTEMI #) HTN #) CKD stage 3 #) HLD - admit to Cardiology - trend enzymes - continue IV heparin, Plavix ( s/p 300mg load in OSH today), ASA, metoprolol 12.5mg q12 , lipitor 80mg/n. - TTE in AM - CLEMENT : 4 STEFANY : 130 - Cath in AM, consented. - for HTN, continue home med - Losartan ( hold HCTZ, as on IVF) and metoprolol as above. - IVF pre Cath. Discussed re: risk of contrast induced Nephropathy, he understands and agreeable for Cath. - Full code Provider: @Reagan Andrea MD@ Provider #: [id number] 11/18/2017 documented in this encounter Miscellaneous Notes * Consult Note - Medina Krueger RN - 11/20/2017 9:31 AM EDT Cardiac Rehabilitation Inpatient Evaluation Patient Education: Reviewed cardiac cath findings, implications of coronary artery disease, managing angina and risk factor modification with patient when seen yesterday. Phase II Referral: Patient has accepted a referral for outpatient cardiac rehab at [facility]. The referral will be sent to [facility] at discharge. Activity Summary: By discharge, patient will be able to perform self care, walk 5-7 minutes and go up and down stairs without signs or symptoms of ischemia. Activity Baseline Response Symptoms/Comments ~7 walk HR 56 bpm 73 bpm no sx. Well tolerated. 13 stairs BP 130/68 151/80 O2 Sat 100% RA 98% RA ECG SR SR * Plan of Care - Zoila Ritchie RN - 11/20/2017 4:43 AM EDT Problem: Patient Care Overview Goal: Plan of Care Review Outcome: Ongoing (Interventions Implemented as Appropriate) 11/19/17 1657 11/19/17 2140 Coping/Psychosocial Plan Of Care Reviewed With -- patient Plan of Care Review Progress improving -- OUTCOME EVALUATION NOTE: OUTCOME SUMMARY: Mr. Brothers denies sam or other c/o. Anticipating dc this AM. PLAN MOVING FORWARD: discharge this AM INDIVIDUALIZED FALL PREVENTION INTERVENTIONS: Patient-specific fall risk factors per assessment: [current deficits]: No deficits Assistance [level of assistance required for transfers and ambulation]: independant Supervision [direct monitoring required during toileting and ADLs]: Pt may be left unsupervised, and he uses the call leal appropriately. Surveillance [continuous indirect monitoring]: Masimo, hourly purposeful rounding, telemetry Patient-specific fall prevention interventions for sensory deficits provided, if applicable: n/a CPG GOAL OUTCOME EVALUATION: Goal: Individualization & Mutuality Outcome: Ongoing (Interventions Implemented as Appropriate) 11/20/17 8037 Individualization Patient Specific Goals I need some sleep!. Patient Specific Interventions Care clustered to minimize awakenings. Goal: Fall Prevention-Safe Patient Handling Outcome: Ongoing (Interventions Implemented as Appropriate) 11/19/17 1545 11/19/17 1620 11/19/17 1800 Positioning Body Position -- -- -- Daily Care Interventions Self-Care Promotion -- -- independence encouraged [place] Fall Risk History of Falling 0 -- -- Secondary Diagnosis 15 -- -- Ambulatory Aids 0 -- -- Intravenous Therapy/Heparin/Saline Lock 20 -- -- Gait/Transferring 0 -- -- Mental Status 0 -- -- Score 35 -- -- OTHER [place] Fall Risk Med -- -- Restraint Interventions Safety Promotion/Fall Prevention -- -- -- Activity Activity Type -- -- -- Activity Assistance Provided -- -- -- Assistive Device Utilized -- none -- 11/19/17 19311/20/17 020 Positioning Body Position -- independent Daily Care Interventions Self-Care Promotion -- -- [place] Fall Risk History of Falling -- -- Secondary Diagnosis -- -- Ambulatory Aids -- -- Intravenous Therapy/Heparin/Saline Lock -- -- Gait/Transferring -- -- Mental Status -- -- Score -- -- OTHER [place] Fall Risk -- -- Restraint Interventions Safety Promotion/Fall Prevention -- safety round/check completed;fall prevention program maintained;activity supervised Activity Activity Type -- activity adjusted per tolerance Activity Assistance Provided independent -- Assistive Device Utilized -- -- Goal: Infection Control Outcome: Ongoing (Interventions Implemented as Appropriate) 11/19/17213911/20/17 020 Coping Strategies Supportive Measures active listening utilized;decision-making supported;positive reinforcement provided;self-care encouraged;self-responsibility promoted;verbalization of feelings encouraged -- Safety Interventions Isolation Precautions -- standard precautions maintained Infection Prevention -- environmental surveillance performed;personal protective equipment utilized;rest/sleep promoted Goal: Discharge Needs Assessment Outcome: Ongoing (Interventions Implemented as Appropriate) 11/20/17 0439 Discharge Needs Assessment Concerns To Be Addressed denies needs/concerns at this time Current Discharge Risk chronically ill Discharge Disposition still a patient Current Health Anticipated Changes Related to Illness none Living Environment Transportation Available family or friend will provide Goal: Interdisciplinary Rounds/Family Conf Outcome: Ongoing (Interventions Implemented as Appropriate) 11/19/17 0403 Interdisciplinary Rounds/Family Conf Participants nursing;physician Problem: Cardiac Cath/Percutaneous Coronary Intervention (Adult) Goal: Signs and Symptoms of Listed Potential Problems Will be Absent, Minimized or Managed (CardiacCath/Percutaneous Coronary Intervention) Signs and symptoms of listed potential problems will be absent, minimized or managed by discharge/transition of care (reference Cardiac Cath/Percutaneous Coronary Intervention (Adult) CPG). Outcome: Ongoing (Interventions Implemented as Appropriate) 11/19/17 1656 Cardiac Cath/Percutaneous Coronary Intervention Problems Assessed (Cardiac Catheterization) all Problems Present (Cardiac Catheterization) none * Plan of Care - Kong Brennan RN - 11/19/2017 5:01 PM EDT Problem: Patient Care Overview Goal: Plan of Care Review Outcome: Ongoing (Interventions Implemented as Appropriate) 11/19/17 1657 Coping/Psychosocial Plan Of Care Reviewed With patient;spouse Plan of Care Review Progress improving OUTCOME EVALUATION NOTE: OUTCOME SUMMARY: A+O x4. NSR. Denies CP, denies SOB. IV discontinued at 1555. Denies pain, no s/sx of infiltration. Self ambulated around floor multiple times. Accompanied by spouse, RN for 50 years. Deformed L foot (from ). R radial site is benign, with no s/sx of bleeding. PLAN MOVING FORWARD: D/C on Thurs AM INDIVIDUALIZED FALL PREVENTION INTERVENTIONS: Patient-specific fall risk factors per assessment: [current deficits]: Recent cath, active IV sites, ECG wires, deformed R foot Assistance [level of assistance required for transfers and ambulation]: Independent Supervision [direct monitoring required during toileting and ADLs]: Indpendent Surveillance [continuous indirect monitoring]: Telemetry, call leal in reach, family @ bedside Patient-specific fall prevention interventions for sensory deficits provided, if applicable: [X] Yes CPG GOAL OUTCOME EVALUATION: * Initial Assessments - Susana Henning RN - 11/19/2017 3:19 PM EDT Office of Care Management Initial Assessment Susana Henning RN reviewed record and discussed patient with Care Team. Source of Information: patient Introduced self/reviewed role; services accepted. Reason for Hospitalization: Reason for Admission as Stated by Patient: I had chest pain Past Medical History: Diagnosis Date ??? Essential hypertension 11/18/2017 ??? HLD (hyperlipidemia) 11/18/2017 ??? Non-ST elevation myocardial infarction (NSTEMI) 11/18/2017 Hospitalizations Within the Past 30 Days: no Anticipated Length Of Stay (If known): Expected Length of Hospitalization: two nights Current Decision-Making Capacity: able to make decisions Advance Care Planning: No. Discussed with patient importance and process for doing Advance Directives. Provided copy(ies) of [place] [facility] Advance Directives Taking Steps booklet with forms. Current Coping/Education/Information Needs: knowledgeable Current Functional Ability: independent Functional Status Prior to Admission: independent Home Environment: lives with , 3 level home n problem with stairs Social & Family Supports/Community Resources: at bed side Behavioral Health History: nine Substance Use/Abuse: . Social History Substance Use Topics ??? Smoking status: Former Smoker Packs/day: 0.50 Quit date: 11/17/1999 ??? Smokeless tobacco: Never Used ??? Alcohol use No Other Pertinent/Service Specific Information: none Health/Prescription Coverage: Primary Insurance: [employer] MANAGED MEDICARE Secondary Insurance: N/A Prescription Coverage: yes Preferred Pharmacy: [facility] Primary Care Provider: Karo Otero MD [phone] Patient/Caregiver Goals of Treatment: discharge to home Potential Needs for Transition of Care: Rehab/SNF: not anticipated Home Health: not anticipated DME: none Dialysis: none Community Resources: none Transportation: Anticipated Barriers to Discharge/Special Considerations: none Assessment: NSTEMI, stents placed Plan: discharge tomorrow A member of the Care Management team will continue to monitor progress, follow for continuity of care and assist with transition of care planning. Susana Henning RN Pager: [phone] * Consult Note - Medina Krueger RN - 11/19/2017 2:42 PM EDT Tra Brothers III was seen today by Cardiac Rehabilitation for: NSTEMI Activity evaluation - Patient is s/p cardiac cath this morning. Currently resting and visiting with spouse. Will assist with cardiac walk/stairs tomorrow morning as needed prior to discharge home. Educational packet regarding CAD, cardiac risk factors, and managing angina given to the patient. Heart diagram reviewed. Reviewed managing angina /use of sl nitroglycerin. Mediterranean diet guidelines briefly reviewed. Given parameters for home exercise. Patient likes to walk for exercise. He does not walk as much during the winter months due to the weather conditions. Participation in an outpatient cardiac rehabilitation program at [facility] was discussed. Patient agrees to a referral to this program. The referral will be sent at discharge and the patient should be contacted by the Program within 1- 2 weeks from discharge. * Plan of Care - Zeinab Mueller RN - 11/19/2017 4:13 AM EDT Problem: Patient Care Overview Goal: Plan of Care Review Outcome: Ongoing (Interventions Implemented as Appropriate) 11/18/172014 Coping/Psychosocial Plan Of Care Reviewed With patient OUTCOME EVALUATION NOTE: OUTCOME SUMMARY: Patient arrived from [facility] around 1999. Alert and oriented. Chest pain free on arrival. Placed on telemetry in NSR/SB. VS obtained. Heparin gtt infusing. Had one episode of 10 chest pain. Described as a twinge. Zully QUINTERO made aware. EKG and VS obtained. No nitro given - self resolved on its own. Sleeping in between care. Will continue to monitor. PLAN MOVING FORWARD: NPO for cath today. INDIVIDUALIZED FALL PREVENTION INTERVENTIONS: Patient-specific fall risk factors per assessment: [current deficits]: Hospitalization, wires, IV pole. Assistance [level of assistance required for transfers and ambulation]: SBA. Supervision [direct monitoring required during toileting and ADLs]: SBA. Surveillance [continuous indirect monitoring]: Telemetry, hourly rounding. Patient-specific fall prevention interventions for sensory deficits provided, if applicable: Call leal within reach. CPG GOAL OUTCOME EVALUATION: Goal: Fall Prevention-Safe Patient Handling Outcome: Ongoing (Interventions Implemented as Appropriate) 11/18/172014 [place] Fall Risk History of Falling 0 Secondary Diagnosis 15 Ambulatory Aids 0 Intravenous Therapy/Heparin/Saline Lock 20 Gait/Transferring 0 Mental Status 0 Score 35 OTHER [place] Fall Risk Med Restraint Interventions Safety Promotion/Fall Prevention safety round/check completed Positioning Body Position supine, head elevated Activity Activity Type activity adjusted per tolerance Activity Assistance Provided assistance, stand-by Assistive Device Utilized none Goal: Infection Control Outcome: Ongoing (Interventions Implemented as Appropriate) 04/03/18 2015 Safety Interventions Isolation Precautions standard precautions maintained Infection Prevention environmental surveillance performed;personal protective equipment utilized;rest/sleep promoted Coping Strategies Supportive Measures active listening utilized;verbalization of feelings encouraged Goal: Interdisciplinary Rounds/Family Conf Outcome: Ongoing (Interventions Implemented as Appropriate) 11/19/17 0403 Interdisciplinary Rounds/Family Conf Participants nursing;physician * Plan of Care - Reagan Andrea MD - 11/18/2017 11:28 PM EDT Images from the original note were not included. Cardiac cath Pre Procedure Note The indications, expected benefits and potential risks of heart catheterization were reviewed in detail with the patient. The potential for , heart attack, stroke, kidney failure, hemorrhage, allergic reaction, vascular complications and infection were reviewed in detail. The possibility of stenting and other percutaneous intervention with associated risk was reviewed. The possible need for emergent coronary artery bypass surgery was reviewed. After a discussion about the above, and havinganswered all questions posed, the patient was provided with a consent which was reviewed and signed. 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 Reagan Andrea MD 11/18/2017 Pager [phone] documented in this encounter Plan of Treatment Upcoming Encounters Date Type Department Care Team (Late st Contact Info) Description 04/05/2024 3:00 PM EDT Office Visit Cardiology at [address] [place] [address] Joel Link MD [facility] [place] [id number] 01/18/2025 10:15 AM EDT Office Visit Dermatology at [address] [place] [address] Mathew Fernando MD [address] [place] [address] [place] [address] Scheduled Referrals Name Type Priority Associated Diagnoses Orde r Schedule Referral to Cardiac Rehab Outpatient Referral Routine Non-ST elevation myocardial infarction (NSTEMI) Ordered: 11/20/2017 documented as of this encounter Procedures Procedure Name Priority Date/Time Associated Diagnosis Comments 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 DRIVER SCAN 11/21/2017 12:00 AM EDT BMP W/FASTING GLUCOSE Routine 11/20/2017 4:22 AM EDT HEMOGRAM Routine 11/20/2017 4:22 AM EDT DIFFERENTIAL, AUTOMATED Routine 11/21/19 4:22 AM EDT CARDIAC ENZYMES ([facility]) Routine 11/20/2017 4:22 AM EDT CBC (WITH DIFF) Routine 11/20/2017 4:22 AM EDT T3, FREE Routine 11/20/2017 4:22 AM EDT TSH Routine 11/20/2017 4:22 AM EDT T4, FREE Routine 11/20/2017 4:22 AM EDT EKG 12-LEAD Routine 11/19/2017 10:46 AM EDT Non-ST elevation myocardial infarction (NSTEMI) CARDIAC CATHETERIZATION Routine 11/20/19 10:25 AM EDT ECHO COMPLETE Routine 11/19/2017 9:07 AM EDT Non-ST elevation myocardial infarction (NSTEMI) HEPARIN (UNFRACTIONATED) LEVEL Routine 11/19/2017 8:39 AM EDT CARDIAC ENZYMES ([facility]) STAT 11/19/2017 8:39 AM EDT XR CHEST ONE VIEW Routine 11/19/2017 6:3 1 AM EDT HEPARIN (UNFRACTIONATED) LEVEL Routine 11/19/2017 2:25 AM EDT HEMOGRAM Routine 11/19/2017 2:25 AM EDT DIFFERENTIAL, AUTOMATED Routine 11/20/19 18 2:25 AM EDT CARDIAC ENZYMES ([facility]) STAT 11/19/2017 2:25 AM EDT CBC (WITH DIFF) Routine 11/19/2017 2:25 AM EDT HEMOGLOBIN A1C Routine 11/19/2017 2:25 AM EDT LIPID PANEL (REFLEX DIRECT LDL) Routine 11/19/2017 2:25 AM EDT BASIC METABOLIC PANEL (NON-FASTING) Routine 11/19/2017 2:25 AM EDT EKG 12-LEAD STAT 11/18/2017 11:57 PM EDT Non-ST elevation myocardial infarction (NSTEMI) HEPARIN (UNFRACTIONATED) LEVEL STAT 11/18/2017 8:33 PM EDT HEMOGRAM STAT 11/18/2017 8:33 PM EDT DIFFERENTIAL, AUTOMATED STAT 11/19/19 18 8:33 PM EDT CARDIAC ENZYMES ([facility]) STAT 11/18/2017 8:33 PM EDT APTT STAT 11/18/2017 8:33 PM EDT PROTHROMBIN TIME STAT 11/18/2017 8:33 PM EDT CBC (WITH DIFF) STAT 11/18/2017 8:33 PM EDT PRO-BRAIN NATRIURETIC PEPTIDE STAT 11/18/2017 8:33 PM EDT HEPATIC FUNCTION PANEL STAT 8 8:33 PM EDT BASIC METABOLIC PANEL (NON-FASTING) STAT 11/18/2017 8:33 PM EDT EKG 12-LEAD STAT 11/18/2017 8:26 PM EDT Non-ST elevation myocardial infarction (NSTEMI) documented in this encounter Results * SCAN DOC: STREET FLUSHER DRIVER (11/21/2017 12:00 AM EDT) Anatomical Region Laterality Modality Other Narrative 11/21/2017 12:00 AM EDT Ordered by an unspecified provider. Scanning Provider MEDIA MGR SCAN EXT O RDR/RSLT * T4, free (11/20/2017 4:22 AM EDT) Free T4 1.16 0.93 - 1.70 ng/dL [facility] Blood specimen (specimen) Venous Draw / Unknown 11/20/2017 4:22 AM EDT 11/20/2017 4:39 AM EDT Narrative Resulting Agency Comment Spec In Lab Lara Natalie Aguero APRN CHEMISTRY ORDERABLES Performing Organization Address City/[facility]/ZIP Co de Phone Number [facility] [place] [address] * T3, free (11/20/2017 4:22 AM EDT) Pathologist [facility] T3, Free 2.6 2.0 - 4.4 pg/mL [facility] Blood specimen (specimen) Venous Draw / Unknown 11/20/2017 4:22 AM EDT 11/20/2017 4:39 AM EDT Narrative Resulting Agency Comment Spec In Lab Lara Frostann RADIO STATION ENGINEER CHEMISTRY ORDERABLES Performing Organization Address City/[facility]/ZIP Co de Phone Number [facility] [place] [address] * (ABNORMAL) TSH (11/20/2017 4:22 AM EDT) Pathologist [facility] TSH 6.29(H) 0.27 - 4.20 mlU/ML [facility] Blood specimen (specimen) Venous Draw / Unknown 11/20/2017 4:22 AM EDT 11/20/2017 4:39 AM EDT Narrative Resulting Agency Comment Spec In Lab Lara Aguero GEORGIE CHEMISTRY ORDERABLES [facility] [place] [address] * Differential, Automated (11/20/2017 4:22 AM EDT) Neutrophils % 59.0 % [facility] Neutr Abs (ANC) 3.72 1.70 - 6.10 x10(3)/[facility] Lymphocytes % 27.5 % [facility] Lymphocytes Abs 1.7 0.9 - 3.2 x10(3)/[facility] Monocytes % 9.4 % [facility] Monocyte Abs 0.6 0.3 - 0.9 x10(3)/[facility] Eosinophils % 3.0 % [facility] Eosinophils Abs 0.2 0.0 - 0.4 x10(3)/[facility] Basophils % 0.8 % [facility] Basophils Abs 0.0 0.0 - 0.1 x10(3)/[facility] Immature Gran % 0.30 % [facility] Comment: Immature granulocytes(IG's)percentage and absolute count will include metamyelocytes, myelocytes, and promyelocytes. Blood smears from CBCs yielding IG's will be scanned manually for concordance. If this scan disagrees with the automated IG or if promyelocytes are noted, a manual differential will be performed. Karla Gran Abs 0.02 0.00 - 0.04 x10(3)/[facility] Blood specimen (specimen) 11/20/2017 4:22 AM EDT 11/20/2017 4:37 AM EDT Narrative Resulting Agency Comment Spec In Lab Reagan Andrea MD HEMATOLOGY ORDERABLE S [facility] [place] [address] * (ABNORMAL) Hemogram (11/20/2017 4:22 AM EDT) WBC 6.3 4.0 - 9.5 x10(3)/[facility] RBC 4.56(L) 4.58 - 5.54 x10(6)/[facility] Hemoglobin 13.3(L) 13.7 - 16.5 gm/dL [facility] Hematocrit 40.0(L) 40.5 - 48.5 % [facility] MCV 87.7 82.9 - 93.1 [facility] MCH 29.2 27.5 - 32.1 pg [facility] MCHC 33.3 32.0 - 35.7 gm/dL [facility] Platelets 135(L) 145 - 357 x10(3)/[facility] RDWSD 42.9 36.0 - 45.0 [facility] RDWCV 13.2 11.4 - 13.8 % [facility] MPV 10.5 7.6 - 12.9 [facility] nRBC % Auto 0.0 % [facility] nRBC Abs Auto 0.000 0.000 - 0.000 x10(3)/[facility] Blood specimen (specimen) 11/20/2017 4:22 AM EDT 11/20/2017 4:37 AM EDT Narrative Resulting Agency Comment Spec In Lab Reagan Andrea MD HEMATOLOGY ORDERABLE S [facility] [place] [address] * (ABNORMAL) BMP w/fasting Glucose (11/20/2017 4:22 AM EDT) Glucose Fasting 101(H) 65 - 99 mg/dL [facility] Comment: ?Fasting* Glucose Interpretive Criteria Normal ?65-99 mg/dL Impaired Fasting glucose ?100-125 mg/dL Consistent with Diabetes Mellitus ? >or= 126 mg/dL *Fasting is defined as no caloric intake for at least 8 hours In the absence of unequivocal hyperglycemia a plasma glucose value of >or= 126 mg/dL should be repeated on a subsequent day. Diagnosis and Classification of Diabetes Mellitus, Position Statement from the [employer] Diabetes Association. ??Diabetes Care, Volume 33, Supplement 1, Aug 2009 BUN 20 10 - 20 mg/dL [facility] Creatinine 1.54(H) 0.80 - 1.50 mg/dL [facility] Sodium 144 135 - 145 mmol/L [facility] Potassium 4.3 3.5 - 5.0 mmol/L [facility] Comment: Please note: ??Patients with WBC >100,000 may have falsely elevated Potassium levels. ??For accurate Potassium quantification in these patients send serum separator tube (gold top) for subsequent determinations. ??Contact the Clinical Chemistry Laboratory if there are any questions. Chloride 104 98 - 107 mmol/L [facility] CO2 22 22 - 31 mmol/L [facility] Anion Gap 18(H) 5 - 15 mmol/L [facility] Calcium 8.9 8.5 - 10.5 mg/dL [facility] Estimated GFR 44(L) >=60 [facility] Comment: The reported eGFR should be multiplied by 1.2 for patients. The MDRD is not an appropriate measure of renal function for patients with body mass extremes or in patients with acute kidney failure. http://Canlife.MedSynergies/DHnkdep http://Canlife.[facility] Blood specimen (specimen) 11/20/2017 4:22 AM EDT 11/20/2017 4:37 AM EDT Narrative Resulting Agency Comment Spec In Lab Lara Aguero GEORGIE CHEMISTRY ORDERABLES Performing Organization Address [facility] Co de Phone Number [facility] [place] [address] * (ABNORMAL) Cardiac Enzymes (LEB/CGP) (11/20/2017 4:22 AM EDT) Troponin-T 0.16(H) 0.00 - 0.00 ng/mL [facility] Comment: The 99th percentile for Troponin T is less than 0.01 ng/mL, any detectable cTnT concentration using this assay should be considered elevated. According to the third universal definition of myocardial infarction the following criteria with a clinical presentation consistent with acute myocardial ischemia meets the diagnosis for a myocardial infarction ([place]). Detection of a rise and/or fall of cTnT, with at least one value greater than the 99th percentile (> or = 0.01) and with at least one of the following ?? Symptoms of ischemia ?? New or presumed new significant RP-krziqtk-V wave (ST-T) changes or new left bundle branch block (LBBB) ?? Development of pathologic Q waves in the ECG ?? Imaging evidence of new loss of viable myocardium or new regional wall motion abnormality ?? Identification of an intracoronary thrombus by angiography or autopsy Samples for cTnT testing should be obtained serially upon first assessment and again 3 to 6 hours later. If the clinical suspicion is high and previous samples have been negative an additional sample may be indicated. Reference: Third [place] Definition of Myocardial Infarction. Journal of the [employer] College of Cardiology 2012;60:1581-98 CK, Total 127 0 - 200 unit/L [facility] Blood specimen (specimen) 11/20/2017 4:22 AM EDT 11/20/2017 4:37 AM EDT Narrative Resulting Agency Comment Spec In Lab Julita Gomez MD CHEMISTRY ORDERAB LES Performing Organization Address [facility]/ZIP Co de Phone Number [facility] [place] [address] * EKG 12 Lead (11/19/2017 10:46 AM EDT) Ventricular rate 51 BPM MUSE SYSTEM Atrial Rate 51 BPM MUSE SYSTEM P-R Interval 220 ms MUSE SYSTEM QRS Duration 80 ms MUSE SYSTEM Q-T Interval 504 ms MUSE SYSTEM QTC Calculated (Bezet) 464 ms MUSE SYSTEM Calculated P [place] 24 degrees MUSE SYSTEM Calculated R [place] -3 degrees MUSE SYSTEM Calculated T [place] 69 degrees MUSE SYSTEM INTERPRETATION Sinus bradycardia with 1st degree A-V block Otherwise normal ECG When compared with ECG of 18-NOV-2017 23:57, No significant change was found Confirmed by MD JOHN, BERTHA ([id number]) on 11/19/2017 8:29:14 PM MUSE SYSTEM 11/19/2017 10:4 6 AM EDT 11/19/2017 8:29 PM EDT Julita Gomez MD ECG ORDERABLES MUSE SYSTEM * CARDIAC CATHETERIZATION (11/19/2017 10:25 AM EDT) Anatomical Region Laterality Modality Other Narrative 11/19/2017 12:31 PM EDT ?[facility] ? Cardiac Catheterization/Intervention Report ? Patient Name: Tra Brothers ? Procedure Date: 11/19/2017 ? A #: [id number] ? Primary Physician: Julita Gomez ? Case #: [id number] ? File Name: [id number] ? Catheterization Order Number: [id number] ? [facility] ? Final Report [place], [place] ? Patient Name: ? Tra Garges ?ID#: ?[id number] ? : ?1940 ? Procedure Date: ? November 19, 2017 ?Case #: ? [id number] ? Room: ? 2 ? Case Physician: ? Julita Gomez M.D. ?Start: ?09:15 ?Fellow: ? Ernesto Camarena M.D. ? Admission: ??11/18/2017 ? Referring Physician: ??Karo Otero M.D. ? Procedures: ?* Coronary Angiography ?* Left Heart Catheterization ?* Coronary Stent Insertion ? History ?Tra Brothers is a 76 year old man. He has hypertension. The patient has ?a history of smoking (20 pack years). He has hypercholesterolemia managed ?with lipid therapy. The patient is status post an acute non-ST elevation ?myocardial infarction. He has a history of an abnormal echocardiogram. ?The patient also has a history of renal insufficiency. Prior to the ?initiation of this procedure, the patient was designated as ASA Class ?III. ? Patient Status at Catheterization: ?The patient presented with: non-STEMI (w/i 7 days). [place] ?Cardiovascular Society angina class was IV. No stress or imaging studies ?were performed prior to this procedure. The status of the diagnostic ?procedure was Urgent. ? Technique: ?A 6 SLFr sheath was inserted in the right radial artery utilizing the ?Seldinger technique. The left coronary artery was injected utilizing a ?5Fr JL 3.5 catheter. A 5Fr JR 4 catheter was used to inject the right ?coronary artery. Left ventricular pressure was performed with a 5Fr JR 4 ?catheter. Coronary stent insertion was performed and the equipment ?utilized will be described in the intervention summary section. 8,000 ?units of heparin were administered. Intracoronary nitroglycerin was given ?during this case. A total of 200cc of Omnipaque were opened, 105cc of ?Omnipaque were administered and 95cc of Omnipaque were wasted. Radiation: ?Fluoro time was 13.6 minutes, dose area product was 96,350 mGYcm2 and air ?kerma was 793 mGY. ?The patient received the following medications prior to and during the ?procedure: Aspirin (any), Clopidogrel and Unfractionated Heparin (any). ? Hemodynamics: ?Left Heart Pressures ? Resting: ? Syst Diast ? EDP ?a ?v ? m ?Ao 151 ?? 76 ? Post Contrast: ? Syst Diast ? EDP ?a ?v ? m ?Ao 151 ?? 76 ?106 ?LV 139 ? 17 ?Comments: ??AO Opening- 129/70 (93). ? Coronary Angiography: ?Dominance: Right ?Left Main ? There was a 20% calcified diffuse stenosis of the distal segment of ? the left main artery. ??The left main was large. ?Left Anterior Descending ? There was mild diffuse (<=25% stenosis) disease of the entire vessel ? segment of the left anterior descending artery (LAD). ??The proximal ? segment of the LAD had a calcified long segmental 20% stenosis. ? There also was a 75% eccentric long segmental stenosis of the mid ? segment of the LAD. ?Left Circumflex ? There was mild diffuse (<=25% stenosis) disease of the entire vessel ? segment of the left circumflex artery (LCX). ??The LCX was large. ? There was a 95% single discrete stenosis of the proximal segment of ? the first obtuse marginal branch (OM1) of the LCX. ??The OM1 was ? large. ?Right Coronary Artery ? There was mild diffuse (<=25% stenosis) disease of the entire vessel ? segment of the right coronary artery (RCA). ??The RCA was large. ??The ? proximal segment of the RCA had a long segmental 20% stenosis. ? Indication for Intervention: ?Coronary intervention was indicated for primary therapy for an acute ?myocardial infarction. Left ventricular Ejection Fraction was estimated ?at 64 percent. The priority for the procedure was Urgent. The NCDR ?indication for the procedure was NSTE-ACS. ? Intervention Summary: ?Left Anterior Descending Artery ? Mid 75% ? Stent insertion was performed on the 75% stenosis in the mid ? segment of the LAD. This was a de juan lesion. According to ? the ACC/AHA classification system, this lesion was a type B1 ? moderate risk lesion. Primary prevention of restenosis was the ? indication for stent insertion. Vessel flow pre intervention ? was CLEMENT 3. ? Stent insertion was accomplished through a 6 Fr. EBU 3.5 ? guide. ??The lesion was predilated with a 2.50mm EUPHORA 12 MM ? balloon with a maximum inflation pressure of 12 atmospheres. ? A premounted 3.00 x 15 mm Resolute RENEE (JENNI) was deployed ? with a maximum inflation pressure of 12 atmospheres. ? Following stent deployment, the lesion was dilated using a ? 3.00mm NC EUPHORA 12 MM balloon with a maximum inflation ? pressure of 18 atmospheres. ? The final outcome was defined as successful. There was no ? residual stenosis following this intervention. The final CLEMENT ? flow was 3. ?First Obtuse Marginal Branch of the LCX ? Proximal 95% ? Stent insertion was performed on the 95% stenosis in the ? proximal segment of the OM1. This was a de juan lesion. This ? lesion was designated a type A moderate risk lesion based on ? ACC/AHA classification system. Primary prevention of ? restenosis was the indication for stent insertion. This was ? the culprit lesion. Vessel flow pre intervention was CLEMENT 3. ? Stent insertion was accomplished through a 6 Fr. EBU 3.5 ? guide. ??The lesion was predilated with a 2.50mm EUPHORA 12 MM ? balloon with a maximum inflation pressure of 12 atmospheres. ? A premounted 3.00 x 22 mm Resolute RENEE (JENNI) was deployed ? with a maximum inflation pressure of 16 atmospheres. ? The final outcome was defined as successful. There was no ? residual stenosis following this intervention. The final CLEMENT ? flow was 3. ? Vascular Access: ?Vascular Access Management: ? Mechanical Compression of the right radial artery access site was ? performed. ? Dual Antiplatelet (DAPT) Recommendations: ?Drug eluting stent (JENNI) inserted. ?P2Y12 Loading dose administered prior to arrival in the seed analysis laboratory assistant. ?Recommend continuing clopidogrel 75 mg PO daily for 12 months. ??Recommend ?continuing aspirin 81 mg unless intolerant. ? 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 Complications/Events: ?The patient had no complications during these procedures. ? Comments: ?Radial provided good support for procedure. Results discussed with ?patient and referring, Dr Renteria. I could not locate family in hospital ?or by phone; will continue to work to provide update. ?The attending physician was present for the entire procedure. ?Dr. Julita Gomez M.D. was present during the moderate sedation ?intraservice time as documented by the sedation nurse. ??Case time = 01:03. ?Dr. Julita Gomez M.D. performed the coronary angiography, left ?heart catheterization and stent insertion-coronary. ? Julita J Coylewright, ? M.D. ? Electronically Signed by: Julita J Coylewright, M.D. ? Report Finalized: 11/19/2017 ??12:25 ? Procedure Note Julita Gomez MD - 11/19/2017 [facility] Cardiac Catheterization/Intervention Report Patient Name: Tra Brothers Procedure Date: 11/19/2017 A #: [id number] Primary Physician: Julita Gomez Case #: [id number] File Name: [id number] Catheterization Order Number: [id number] [facility] FinalReport [place], [place] Patient Name: Tra Brothers ID#:[id number] :1940 Procedure Date: November 19, 2017 Case #: [id number] Room: 2 Case Physician: Julita Gomez M.D. Start: 09:15 Fellow: Ernesto Camarena M.D. Admission:11/18/2017 Referring Physician: Karo Otero M.D. Procedures: * Coronary Angiography * Left Heart Catheterization * Coronary Stent Insertion History Tra Brothers is a 76 year old man. He has hypertension. The patienthas a history of smoking (20 pack years). He has hypercholesterolemiamanaged with lipid therapy. The patient is status post an acute non-STelevation myocardial infarction. He has a history of an abnormalechocardiogram. The patient also has a history of renal insufficiency. Prior to the initiation of this procedure, the patient was designated as ASAClass III. Patient Status at Catheterization: The patient presented with: non-STEMI (w/i 7 days). [place] Cardiovascular Society angina class was IV. No stress or imagingstudies were performed prior to this procedure. The status of the diagnostic procedure was Urgent. Technique: A 6 SLFr sheath was inserted in the right radial artery utilizingthe Seldinger technique. The left coronary artery was injected utilizinga 5Fr JL 3.5 catheter. A 5Fr JR 4 catheter was used to inject theright coronary artery. Left ventricular pressure was performed with a 5FrJR 4 catheter. Coronary stent insertion was performed and the equipment utilized will be described in the intervention summary section.8,000 units of heparin were administered. Intracoronary nitroglycerin wasgiven during this case. A total of 200cc of Omnipaque were opened, 105ccof Omnipaque were administered and 95cc of Omnipaque were wasted.Radiation: Fluoro time was 13.6 minutes, dose area product was 96,350 [id number] air kerma was 793 mGY. The patient received the following medications prior to and duringthe procedure: Aspirin (any), Clopidogrel and Unfractionated Heparin(any). Hemodynamics: Left Heart Pressures Resting: Syst Diast EDP a v m Ao 151 76 Post Contrast: Syst Diast EDP a v m Ao 151 76 106 LV 139 17 Comments: AO Opening- 129/70 (93). Coronary Angiography: Dominance: Right Left Main There was a 20% calcified diffuse stenosis of the distalsegment of the left main artery. The left main was large. Left Anterior Descending There was mild diffuse (<=25% stenosis) disease of the entirevessel segment of the left anterior descending artery (LAD). Theproximal segment of the LAD had a calcified long segmental 20% stenosis. There also was a 75% eccentric long segmental stenosis of themid segment of the LAD. Left Circumflex There was mild diffuse (<=25% stenosis) disease of the entirevessel segment of the left circumflex artery (LCX). The LCX waslarge. There was a 95% single discrete stenosis of the proximalsegment of the first obtuse marginal branch (OM1) of the LCX. The OM1 was large. Right Coronary Artery There was mild diffuse (<=25% stenosis) disease of the entirevessel segment of the right coronary artery (RCA). The RCA was large.The proximal segment of the RCA had a long segmental 20% stenosis. Indication for Intervention: Coronary intervention was indicated for primary therapy for an acute myocardial infarction. Left ventricular Ejection Fraction wasestimated at 64 percent. The priority for the procedure was Urgent. The NCDR indication for the procedure was NSTE-ACS. Intervention Summary: Left Anterior Descending Artery Mid 75% Stent insertion was performed on the 75% stenosis in themid segment of the LAD. This was a de juan lesion. Accordingto the ACC/AHA classification system, this lesion was a typeB1 moderate risk lesion. Primary prevention of restenosiswas the indication for stent insertion. Vessel flow preintervention was CLEMENT 3. Stent insertion was accomplished through a 6 Fr. EBU 3.5 guide. The lesion was predilated with a 2.50mm [id number] MM balloon with a maximum inflation pressure of 12atmospheres. A premounted 3.00 x 15 mm Resolute RENEE (JENNI) wasdeployed with a maximum inflation pressure of 12 atmospheres. Following stent deployment, the lesion was dilated usinga 3.00mm NC EUPHORA 12 MM balloon with a maximum inflation pressure of 18 atmospheres. The final outcome was defined as successful. There was no residual stenosis following this intervention. The finalTIMI flow was 3. First Obtuse Marginal Branch of the LCX Proximal 95% Stent insertion was performed on the 95% stenosis in the proximal segment of the OM1. This was a de juan lesion.This lesion was designated a type A moderate risk lesion basedon ACC/AHA classification system. Primary prevention of restenosis was the indication for stent insertion. Thiswas the culprit lesion. Vessel flow pre intervention was TIMI3. Stent insertion was accomplished through a 6 Fr. EBU 3.5 guide. The lesion was predilated with a 2.50mm [id number] MM balloon with a maximum inflation pressure of 12atmospheres. A premounted 3.00 x 22 mm Resolute RENEE (JENNI) wasdeployed with a maximum inflation pressure of 16 atmospheres. The final outcome was defined as successful. There was no residual stenosis following this intervention. The finalTIMI flow was 3. Vascular Access: Vascular Access Management: Mechanical Compression of the right radial artery access sitewas performed. Dual Antiplatelet (DAPT) Recommendations: Drug eluting stent (JENNI) inserted. P2Y12 Loading dose administered prior to arrival in the seed analysis laboratory assistant. Recommend continuing clopidogrel 75 mg PO daily for 12 months.Recommend continuing aspirin 81 mg unless intolerant. 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 Comments: Radial provided good support for procedure. Results discussed with patient and referring, Dr Renteria. I could not locate family inhospital or by phone; will continue to work to provide update. The attending physician was present for the entire procedure. Dr. Julita Gomez M.D. was present during the moderate sedation intraservice time as documented by the sedation nurse. Case time =01:03. Dr. Julita Gomez M.D. performed the coronary angiography, left heart catheterization and stent insertion-coronary. Julita Pearson M.D. Electronically Signed by: Julita Gomez M.D. Report Finalized: 11/19/2017 12:25 Reagan Andrea MD CARDIAC CATH ORDERAB LES * ECHO COMPLETE (11/19/2017 9:07 AM EDT) EF 63 HEARTLAB SYSTEM Anatomical Region Laterality Modality Other 11/19/2017 Narrative 11/19/2017 9:51 AM EDT Procedure: ?Transthoracic Echocardiogram Patient: ?DENEEN GALLARDO ? (Age): 1940(76y) Med Rec#: ? [id number] ?Sex: ?M ? Site Loc: ? [facility] [place] ?Ht / Wt: ??180(cm)/97(kg) Pt. Loc: ?Adult Floor ? BSA: ?2.17 Study Date: ?? 11/19/2017 ?Pt. Type: Inpatient Tape: ? Referring: NORRIS DELEON J Reading: Rustam Dave ([id number]) Clinical Research Management Associate: Andrea Esparza [facility] Diagnosis: *ICD-10-PCS Non-ST elevation (NSTEMI) myocardial infarction (I21.4) BP: ? 148/89 SUMMARY: 1. The left ventricular chamber size is normal. ??Mild concentric left ventricular hypertrophy is observed. ??Basal septal hypertrophy is observed. (1.3cm) ??There is normal global left ventricular systolic function. ??The quantitative left ventricular ejection fraction by biplane Roman's method is 64%. ??There are left ventricular segmental wall motion abnormalities present, as shown in the diagram below. 2. The right ventricle is probably normal in size. ??Right ventricular global systolic function is normal. 3. Mild (1+/4+) aortic valve regurgitation is present. 4. See remainder of report for additional findings. Findings ? : Left Ventricle: ? The left ventricular chamber size is normal. ?Mild concentric left ventricular hypertrophy is observed. ?Basal septal hypertrophy is observed. (1.3cm) ?There is normal global left ventricular systolic function. ?The quantitative left ventricular ejection fraction by biplane Roman's method is 64%. ?There are left ventricular segmental wall motion abnormalities present, as shown in the diagram below. ?Doppler assessment is consistent with elevated left sided filling pressure. ?The ??basal inferolateral wall segment is hypokinetic (score 2). ?The ??mid inferolateral wall segment is akinetic (score 3). ?Overall wallmotion score index is ??1.19 Left Atrium: ? The left atrium is mildly dilated. Right Ventricle: ? The right ventricle is probably normal in size. ?Right ventricular global systolic function is normal. ?The estimated pulmonary artery systolic pressure is 38 mmHg. ?The estimated right atrial pressure is 8 mmHg. Right Atrium: ? The right atrium appears normal. Aortic Valve: ? The aortic valve is tricuspid. ?The aortic valve leaflets are mildly thickened. ?There is aortic annular calcification. ?Mild (1+/4+) aortic valve regurgitation is present. Mitral Valve: ? The mitral valve appears normal in structure and function. ?There is posterior mitral annular calcification. ?There is mild (1+/4+) mitral regurgitation present. Tricuspid Valve: ? The tricuspid valve appears normal in structure and function. ?There is mild (1+/4+) tricuspid regurgitation present. Pulmonic Valve: ? The pulmonic valve appears normal in structure and function. ?There is trace pulmonic regurgitation present. Pericardium: ? The pericardium appears normal and there is no evidence of a pericardial effusion. Aorta: ? The aortic root is normal in size. ?The ascending aorta is normal in size. Pulmonary Artery: ? The main pulmonary artery appears normal. Venous: ? The inferior vena cava appears dilated. ?There is a greater than 50% respiratory change in the inferior vena cava dimension. Misc: ? Two-dimensional echo, spectral Doppler and color Doppler performed. Chambers 2D ?Value ?Units (Range) ? IVSd (2D) ? 1.3 ?cm ? LVPWd (2D) ?1.2 ?cm ? IVS:LVPW ratio (2D) 1.1 ?ratio ? RWT (2D) ?0.6 ?ratio ? RWT PW (2D) ? 0.5 ?ratio ? LVIDd (2D) ?4.4 ?cm ? LVIDs (2D) ?3.2 ?cm ? LVIDd (2D) index ?2 ?cm/m2 ? LVIDs (2D) index ?1.5 ?cm/m2 ? LV FS (2D) ?28 ? % ? EF Teichholz (2D) ?? 54 ? % ? Ao root diameter (2D3.5 ?cm (2.1 - 3.6) ? Ascending Ao ?3.5 ?cm (2 - 3.5) ? Volumes/Mass ?Value ?Units (Range) ? LA Area 4 CH ?22 ? cm2 (<21) ? RA AREA 4CH ? 17 ? cm2 ? LA ESV BP (MOD) inde34.6 ? ml/m2 ? LV ESV SP 4CH (MOD) 44 ? ml ? LV ESV SP 2CH (MOD) 39 ? ml ? LV EDV BP ? 116 ?ml ? LV ESV BP ? 42 ? ml ? LV EDV BP index ? 53.5 ? ml/m2 ? LV ESV BP index ? 19.4 ? ml/m2 ? BP EF (MOD) ? 64 ? % ? LV mass (2D) ?194.6 ?g ? LV mass (2D) index ??89.7 ? g/m2 ? Diastolic/Systolic Function ?Value ?Units (Range) ? MV E-wave Vmax ?0.7 ?m/sec ? MV deceleration [id number] ?msec ? MV A-wave Vmax ?0.8 ?m/sec ? MV E:A ratio ?0.9 ?ratio ? LV septal e' Vmax ?? 0 ?m/sec ? LV lateral e' Vmax ??0.1 ?m/sec ? LV average e' Vmax ??0.1 ?m/sec ? LV E:e' septal ratio19.6 ? ratio ? LV E:e' lateral rati12.5 ? ratio ? LV average E:e' rati14.2 ? ratio ? Tricuspid Valve ?Value ?Units (Range) ? TR Vmax ? 2.8 ?m/sec ? TR peak gradient ?30.5 ? mmHg ? RAP ? 8 ?mmHg ? RVSP ?38 ? mmHg ? Wall Motion: Segment Name ?Rest ? Base-Anteroseptal ?? Normal ? Base-Anterior ? Normal ? Base-Anterolateral ??Normal ? Base-Posterolateral Hypokinetic ? Base-Inferior ? Normal ? Base-Inferoseptal ?? Normal ? Mid-Anteroseptal ?Normal ? Mid-Anterior ?Normal ? Mid-Anterolateral ?? Normal ? Mid-Posterolateral ??Akinetic ? Mid-Inferior ?Normal ? Mid-Inferoseptal ?Normal ? [place]-Septal ? Normal ? [place]-Anterior ? Normal ? [place]-Lateral ?Normal ? [place]-Inferior ? Normal ? [place]-Tip ?Normal ? This report has been electronically signed by: Rustam Dave M.D. ? 11/19/2017 09:50:55 Images reviewed and interpretation verified [facility] Cardiac Ultrasound Laboratory Procedure Note Rustam Dave MD - 11/19/2017 Procedure: Transthoracic Echocardiogram Patient: DENEEN WISDOM(Age): 1940(76y) Med Rec#: [id number] Sex: M Site Loc: [facility] [place] Ht / Wt: 180(cm)/97(kg) Pt. Loc: Adult Floor BSA: 2.17 Study Date: 11/19/2017 Pt. Type: Inpatient Tape: Referring: NORRIS DELEON J Reading: Rustam Dave ([id number]) Clinical Research Management Associate: Andrea Esparza [facility] Diagnosis: *ICD-10-PCS Non-ST elevation (NSTEMI) myocardial infarction (I21.4) BP: 148/89 SUMMARY: 1. The left ventricular chamber size is normal. Mild concentric left ventricular hypertrophy is observed. Basal septal hypertrophy is observed. (1.3cm) There is normal global left ventricular systolic function. The quantitative left ventricular ejection fraction by biplane Roman's method is 64%. There are left ventricular segmental wall motion abnormalities present, as shown in the diagram below. 2. The right ventricle is probably normal in size. Right ventricular global systolic function is normal. 3. Mild (1+/4+) aortic valve regurgitation is present. 4. See remainder of report for additional findings. Findings : Left Ventricle: The left ventricular chamber size is normal. Mild concentric left ventricular hypertrophy is observed. Basal septal hypertrophy is observed. (1.3cm) There is normal global left ventricular systolic function. The quantitative left ventricular ejection fraction by biplane Roman's method is 64%. There are left ventricular segmental wall motion abnormalities present, as shown in the diagram below. Doppler assessment is consistent with elevated left sided filling pressure. The basal inferolateral wall segment is hypokinetic (score 2). The mid inferolateral wall segment is akinetic (score 3). Overall wallmotion score index is 1.19 Left Atrium: The left atrium is mildly dilated. Right Ventricle: The right ventricle is probably normal in size. Right ventricular global systolic function is normal. The estimated pulmonary artery systolic pressure is 38 mmHg. The estimated right atrial pressure is 8 mmHg. Right Atrium: The right atrium appears normal. Aortic Valve: The aortic valve is tricuspid. The aortic valve leaflets are mildly thickened. There is aortic annular calcification. Mild (1+/4+) aortic valve regurgitation is present. Mitral Valve: The mitral valve appears normal in structure and function. There is posterior mitral annular calcification. There is mild (1+/4+) mitral regurgitation present. Tricuspid Valve: The tricuspid valve appears normal in structure and function. There is mild (1+/4+) tricuspid regurgitation present. Pulmonic Valve: The pulmonic valve appears normal in structure and function. There is trace pulmonic regurgitation present. Pericardium: The pericardium appears normal and there is no evidence of a pericardial effusion. Aorta: The aortic root is normal in size. The ascending aorta is normal in size. Pulmonary Artery: The main pulmonary artery appears normal. Venous: The inferior vena cava appears dilated. There is a greater than 50% respiratory change in the inferior vena cava dimension. Misc: Two-dimensional echo, spectral Doppler and color Doppler performed. Chambers 2D Value Units (Range) IVSd (2D) 1.3 cm LVPWd (2D) 1.2 cm IVS:LVPW ratio (2D) 1.1 ratio RWT (2D) 0.6 ratio RWT PW (2D) 0.5 ratio LVIDd (2D) 4.4 cm LVIDs (2D) 3.2 cm LVIDd (2D) index 2 cm/m2 LVIDs (2D) index 1.5 cm/m2 LV FS (2D) 28 % EF Teichholz (2D) 54 % Ao root diameter (2D3.5 cm (2.1 - 3.6) Ascending Ao 3.5 cm (2 - 3.5) Volumes/Mass Value Units (Range) LA Area 4 CH 22 cm2 (<21) RA AREA 4CH 17 cm2 LA ESV BP (MOD) inde34.6 ml/m2 LV ESV SP 4CH (MOD) 44 ml LV ESV SP 2CH (MOD) 39 ml LV EDV BP 116 ml LV ESV BP 42 ml LV EDV BP index 53.5 ml/m2 LV ESV BP index 19.4 ml/m2 BP EF (MOD) 64 % LV mass (2D) 194.6 g LV mass (2D) index 89.7 g/m2 Diastolic/Systolic Function Value Units (Range) MV E-wave Vmax 0.7 m/sec MV deceleration [id number] msec MV A-wave Vmax 0.8 m/sec MV E:A ratio 0.9 ratio LV septal e' Vmax 0 m/sec LV lateral e' Vmax 0.1 m/sec LV average e' Vmax 0.1 m/sec LV E:e' septal ratio19.6 ratio LV E:e' lateral rati12.5 ratio LV average E:e' rati14.2 ratio Tricuspid Valve Value Units (Range) TR Vmax 2.8 m/sec TR peak gradient 30.5 mmHg RAP 8 mmHg RVSP 38 mmHg Wall Motion: Segment Name Rest Base-Anteroseptal Normal Base-Anterior Normal Base-Anterolateral Normal Base-Posterolateral Hypokinetic Base-Inferior Normal Base-Inferoseptal Normal Mid-Anteroseptal Normal Mid-Anterior Normal Mid-Anterolateral Normal Mid-Posterolateral Akinetic Mid-Inferior Normal Mid-Inferoseptal Normal Fargo-Septal Normal Fargo-Anterior Normal Fargo-Lateral Normal Fargo-Inferior Normal Fargo-Tip Normal This report has been electronically signed by: Rustam Dave M.D. 11/19/2017 09:50:55 Images reviewed and interpretation verified [facility] Cardiac Ultrasound Laboratory Reagan Andrea MD ECHO ORDERABLES * Heparin (unfractionated) Level (11/19/2017 8:39 AM EDT) Heparin UFH Level 0.45 IU/mL [place] [facility] Comment: Guidelines for therapeutic unfractionated heparin levels are summarized below. Heparin (Anti-Xa) levels should be determined in a plasma sample that has been drawn 6 hours after a dose change i.e., steady-state has been reached. DRUG ?Dosing Schedule ? Target Peak Steady-State ?Heparin (Anti-Xa) Levels (Units/mL) Unfractionated ?Continuous infusion ?0.3-0.7 Heparin ?0.3-0.6 for some neurology indications Blood specimen (specimen) 11/19/2017 8:39 AM EDT 11/19/2017 8:51 AM EDT Narrative Resulting Agency Comment Spec In Lab Reagan Andrea MD HEMATOLOGY ORDERABLE S [facility] [place] [address] * (ABNORMAL) Cardiac Enzymes (LEB/CGP) (11/19/2017 8:39 AM EDT) Troponin-T 0.04(H) 0.00 - 0.00 ng/mL [facility] Comment: The 99th percentile for Troponin T is less than 0.01 ng/mL, any detectable cTnT concentration using this assay should be considered elevated. According to the third universal definition of myocardial infarction the following criteria with a clinical presentation consistent with acute myocardial ischemia meets the diagnosis for a myocardial infarction ([place]). Detection of a rise and/or fall of cTnT, with at least one value greater than the 99th percentile (> or = 0.01) and with at least one of the following ?? Symptoms of ischemia ?? New or presumed new significant GU-xembdty-K wave (ST-T) changes or new left bundle branch block (LBBB) ?? Development of pathologic Q waves in the ECG ?? Imaging evidence of new loss of viable myocardium or new regional wall motion abnormality ?? Identification of an intracoronary thrombus by angiography or autopsy Samples for cTnT testing should be obtained serially upon first assessment and again 3 to 6 hours later. If the clinical suspicion is high and previous samples have been negative an additional sample may be indicated. Reference: Third [place] Definition of Myocardial Infarction. Journal of the [employer] 2012;60:1581-98 CK, Total 105 0 - 200 unit/L [facility] Blood specimen (specimen) 11/19/2017 8:39 AM EDT 11/19/2017 8:51 AM EDT Narrative Resulting Agency Comment Spec In Lab Reagan Andrea MD CHEMISTRY ORDERABLES [facility] [place] [address] * XR Chest PA or AP 1 view (11/19/2017 6:31 AM EDT) Anatomical Region Laterality Modality Chest N/A Digital Radiogra phy Impressions 11/19/2017 6:37 AM EDT No acute cardiopulmonary process. Narrative 11/19/2017 6:37 AM EDT EXAMINATION: ??XR CHEST PA OR AP 1 VIEW CLINICAL HISTORY: ??chest pain TECHNIQUE: AP view of the chest. COMPARISON: ??None FINDINGS: No focal consolidation, pleural effusion or pulmonary edema is identified. The cardiac silhouette and pulmonary vasculature are within normal limits. Procedure Note Deejay Shepard MD - 11/19/2017 EXAMINATION: XR CHEST PA OR AP 1 VIEW CLINICAL HISTORY: chest pain TECHNIQUE: AP view of the chest. COMPARISON: None FINDINGS: No focal consolidation, pleural effusion or pulmonary edema is identified.The cardiac silhouette and pulmonary vasculature are within normal limits. IMPRESSION No acute cardiopulmonary process. Reagan Andrea MD IMG DX ORDERABLES * Heparin (unfractionated) Level (11/19/2017 2:25 AM EDT) Heparin UFH Level 0.44 IU/mL [facility] Comment: Guidelines for therapeutic unfractionated heparin levels are summarized below. Heparin (Anti-Xa) levels should be determined in a plasma sample that has been drawn 6 hours after a dose change i.e., steady-state has been reached. DRUG ?Dosing Schedule ? Target Peak Steady-State ?Heparin (Anti-Xa) Levels (Units/mL) Unfractionated ?Continuous infusion ?0.3-0.7 Heparin ?0.3-0.6 for some neurology indications Blood specimen (specimen) 11/19/2017 2:25 AM EDT 11/19/2017 2:40 AM EDT Narrative Resulting Agency Comment Spec In Lab Reagan Andrea MD HEMATOLOGY ORDERABLE S [facility] [place] [id number] * Differential, Automated (11/19/2017 2:25 AM EDT) Neutrophils % 59.0 % [facility] Neutr Abs (ANC) 3.68 1.70 - 6.10 x10(3)/[facility] Lymphocytes % 28.0 % [facility] Lymphocytes Abs 1.8 0.9 - 3.2 x10(3)/[facility] Monocytes % 10.3 % [facility] Monocyte Abs 0.6 0.3 - 0.9 x10(3)/[facility] Eosinophils % 1.8 % [facility] Eosinophils Abs 0.1 0.0 - 0.4 x10(3)/[facility] Basophils % 0.6 % [facility] Basophils Abs 0.0 0.0 - 0.1 x10(3)/[facility] Immature Gran % 0.30 % [facility] Comment: Immature granulocytes(IG's)percentage and absolute count will include metamyelocytes, myelocytes, and promyelocytes. Blood smears from CBCs yielding IG's will be scanned manually for concordance. If this scan disagrees with the automated IG or if promyelocytes are noted, a manual differential will be performed. Karla Gran Abs 0.02 0.00 - 0.04 x10(3)/[facility] Blood specimen (specimen) 11/19/2017 2:25 AM EDT 11/19/2017 2:40 AM EDT Narrative Resulting Agency Comment Spec In Lab Reagan Andrea MD HEMATOLOGY ORDERABLE S [facility] [place] [address] * (ABNORMAL) Hemogram (11/19/2017 2:25 AM EDT) WBC 6.2 4.0 - 9.5 x10(3)/[facility] RBC 4.65 4.58 - 5.54 x10(6)/[facility] Hemoglobin 13.5(L) 13.7 - 16.5 gm/dL [facility] Hematocrit 40.4(L) 40.5 - 48.5 % [facility] MCV 86.9 82.9 - 93.1 fL [facility] MCH 29.0 27.5 - 32.1 pg [facility] MCHC 33.4 32.0 - 35.7 gm/dL [facility] Platelets 156 145 - 357 x10(3)/[facility] RDWSD 41.2 36.0 - 45.0 fL [facility] RDWCV 13.1 11.4 - 13.8 % [facility] MPV 10.6 7.6 - 12.9 fL [facility] nRBC % Auto 0.0 % [facility] nRBC Abs Auto 0.000 0.000 - 0.000 x10(3)/mcL [facility] Blood specimen (specimen) 11/19/2017 2:25 AM EDT 11/19/2017 2:40 AM EDT Narrative Resulting Agency Comment Spec In Lab Reagan Andrea MD HEMATOLOGY ORDERABLE S [facility] [place] [address] * Hemoglobin A1c (11/19/2017 2:25 AM EDT) Hemoglobin A1C 5.4 4.3 - 5.6 % [facility] Comment: Reference Range: 4.3 - 5.6% 5.7 - 6.4% - Increased Risk of Developing Diabetes Mellitus >= 6.5% - Consistent with diagnosis of Diabetes Mellitus In the absence of hyperglycemia (i.e. plasma glucose > 200 mg/dL) or classic symptoms of hyperglycemia a repeat measurement of HbA1c should be performed on a separate sample to confirm the diagnosis. Diagnosis and Classification of Diabetes Mellitus, Diabetes Care 2013; 36: Suppl. 1, S67-60 Est Avg Gluc See note mg/dL [facility] Comment: Estimated Average Glucose not appropriate for patients over 70 years of age. eAG equivalents for HbA1c percentages: HbA1c(%) ?eAG(mg/dL) 6.0 ?126 6.5 ?140 7.0 ?154 7.5 ?169 8.0 ?183 8.5 ?197 9.0 ?212 9.5 ?226 10.0 ? 240 Limitations: The eAG calculation has not been validated on women, individuals below 18 years old and above 70 years old, and individuals with hemoglobinopathies. Additional resources are available on the ADA website. Jr BOWENS, Jeb J, Jaye R, et al. ??Translating the A1C assay into estimated average glucose values. ??Diabetes Care 2008:31(8):5107-6132. Blood specimen (specimen) 11/19/2017 2:25 AM EDT 11/19/2017 2:40 AM EDT Narrative Resulting Agency Comment Spec In Lab Reagan Andrea MD CHEMISTRY ORDERABLES [facility] [place] [address] * (ABNORMAL) Basic Metabolic Panel (non-fasting) (11/19/2017 2:25 AM EDT) Glucose Lvl 99 65 - 199 mg/dL [facility] Comment:Diabetes: >=200 mg/d L plus symptoms BUN 25(H) 10 - 20 mg/dL [facility] Creatinine 1.56(H) 0.80 - 1.50 mg/dL [facility] Sodium 138 135 - 145 mmol/L [facility] Potassium 3.8 3.5 - 5.0 mmol/L [facility] Comment: Please note: ??Patients with WBC >100,000 may have falsely elevated Potassium levels. ??For accurate Potassium quantification in these patients send serum separator tube (gold top) for subsequent determinations. ??Contact the Clinical Chemistry Laboratory if there are any questions. Chloride 103 98 - 107 mmol/L [facility] CO2 26 22 - 31 mmol/L [facility] Anion Gap 9 5 - 15 mmol/L [facility] Calcium 8.7 8.5 - 10.5 mg/dL [facility] Estimated GFR 43(L) >=60 [facility] Comment: The reported eGFR should be multiplied by 1.2 for patients. The MDRD is not an appropriate measure of renal function for patients with body mass extremes or in patients with acute kidney failure. http://Peerz/DHnkdep http://Peerz/DHMCnkf Blood specimen (specimen) 11/19/2017 2:25 AM EDT 11/19/2017 2:40 AM EDT Narrative Resulting Agency Comment Spec In Lab Reagan Andrea MD CHEMISTRY ORDERABLES [facility] [place] [place] [address] * Lipid Panel (11/19/2017 2:25 AM EDT) Chol, Total 158 mg/dL [facility] Comment: Lower Risk: <200 mg/dL Average Risk: 200-239 mg/dL Higher Risk: >nr=457 mg/dL Triglycerides 96 mg/dL [facility] Comment: Average Risk/Lower Risk: <150 mg/dL Borderline High Risk: 150-199 mg/dL High Risk: 200-499 mg/dL Very High Risk: >pw=944 mg/dL HDL 53 mg/dL [facility] Comment: Males: ?? Higher Risk: <40 mg/dL Females: ?? HIgher Risk: <50 mg/dL LDL Cholesterol 86 mg/dL [facility] Comment: Lowest Risk: <100 mg/dL Lower Risk: 100-129 mg/dL Borderline High Risk: 130-159 mg/dL High Risk: 160-189 mg/dL Very High Risk: >vd=243 mg/dL Chol/HDL Ratio 3.0 ratio [facility] Lipid Interpretation See Note [facility] Comment: Lipid management should be guided by a patient? s ASCVD risk, goals and preferences. ACC/AHA Guidelines recommend high intensity statin if clinical ASCVD or LDL greater than or equal to 190 mg/dL. http://Canlife.com/NAK-TVT-Zjgnudqiz Adults aged 40-75 with LDL 70-189 mg/dL should have their 10 year ASCVD risk estimated with the ACC/AHA ASCVD risk senior electrical estimator http://tools.acc.org/CPCPF-Liwk-Bbrealkpc/ Statin should be discussed if risk greater than or equal to 7.5% in non-diabetics. With diabetes, moderate intensity statin is recommended if risk less than 7.5%, high intensity if risk greater than or equal to 7.5%. Annual lipid monitoring on statins is not necessary. Evaluate secondary causes of Triglycerides greater than 500 mg/dL or LDL greater than 190 mg/dL: See table 6 of ACC/AHA Guideline. Lifestyle modification is a critical component of ASCVD risk reduction. Blood specimen (specimen) 11/19/2017 2:25 AM EDT 11/19/2017 2:40 AM EDT Narrative Resulting Agency Comment Spec In Lab Reagan Andrea MD CHEMISTRY ORDERABLES [facility] [place] [place] [address] * (ABNORMAL) Cardiac Enzymes (LEB/CGP) (11/19/2017 2:25 AM EDT) Troponin-T 0.05(H) 0.00 - 0.00 ng/mL [facility] Comment: The 99th percentile for Troponin T is less than 0.01 ng/mL, any detectable cTnT concentration using this assay should be considered elevated. According to the third universal definition of myocardial infarction the following criteria with a clinical presentation consistent with acute myocardial ischemia meets the diagnosis for a myocardial infarction ([place]). Detection of a rise and/or fall of cTnT, with at least one value greater than the 99th percentile (> or = 0.01) and with at least one of the following ?? Symptoms of ischemia ?? New or presumed new significant RC-fsbszic-I wave (ST-T) changes or new left bundle branch block (LBBB) ?? Development of pathologic Q waves in the ECG ?? Imaging evidence of new loss of viable myocardium or new regional wall motion abnormality ?? Identification of an intracoronary thrombus by angiography or autopsy Samples for cTnT testing should be obtained serially upon first assessment and again 3 to 6 hours later. If the clinical suspicion is high and previous samples have been negative an additional sample may be indicated. Reference: Third [place] Definition of Myocardial Infarction. Journal of the [employer] College [employer] 2012;60:1581-98 CK, Total 104 0 - 200 unit/L [facility] Blood specimen (specimen) 11/19/2017 2:25 AM EDT 11/19/2017 2:41 AM EDT Narrative Resulting Agency Comment Spec In Lab Reagan Andrea MD CHEMISTRY ORDERABLES Performing Organization Address City/[facility]/ZIP Co de Phone Number [facility] [place] [address] * EKG 12 Lead (11/18/2017 11:57 PM EDT) Ventricular rate 58 BPM MUSE SYSTEM Atrial Rate 58 BPM MUSE SYSTEM P-R Interval 226 ms MUSE SYSTEM QRS Duration 86 ms MUSE SYSTEM Q-T Interval 450 ms MUSE SYSTEM QTC Calculated (Bezet) 441 ms MUSE SYSTEM Calculated P [place] 33 degrees MUSE SYSTEM Calculated R [place] 2 degrees MUSE SYSTEM Calculated T [place] 66 degrees MUSE SYSTEM INTERPRETATION Sinus bradycardia with 1st degree A-V block Otherwise normal ECG When compared with ECG of 18-NOV-2017 20:26, (unconfirmed) No significant change was found Confirmed by MD FERNIE, ANGELO ([id number]) on 11/19/2017 10:16:27 AM MUSE SYSTEM 11/18/2017 11:5 7 PM EDT 11/19/2017 10:16 AM EDT Reagan Andrea MD ECG ORDERABLES Performing Organization Address [facility]/ZIP Co de Phone Number MUSE SYSTEM * Heparin (unfractionated) Level (11/18/2017 8:33 PM EDT) Heparin UFH Level 0.66 IU/mL [facility] Comment: Guidelines for therapeutic unfractionated heparin levels are summarized below. Heparin (Anti-Xa) levels should be determined in a plasma sample that has been drawn 6 hours after a dose change i.e., steady-state has been reached. DRUG ?Dosing Schedule ? Target Peak Steady-State ?Heparin (Anti-Xa) Levels (Units/mL) Unfractionated ?Continuous infusion ?0.3-0.7 Heparin ?0.3-0.6 for some neurology indications Blood specimen (specimen) 11/18/2017 8:33 PM EDT 11/18/2017 8:52 PM EDT Narrative Resulting Agency Comment Spec In Lab Reagan Andrea MD HEMATOLOGY ORDERABLE S [facility] [place] [address] * Differential, Automated (11/18/2017 8:33 PM EDT) Neutrophils % 62.8 % [facility] Neutr Abs (ANC) 5.08 1.70 - 6.10 x10(3)/[facility] Lymphocytes % 25.8 % [facility] Lymphocytes Abs 2.1 0.9 - 3.2 x10(3)/[facility] Monocytes % 8.7 % [facility] Monocyte Abs 0.7 0.3 - 0.9 x10(3)/[facility] Eosinophils % 1.5 % [facility] Eosinophils Abs 0.1 0.0 - 0.4 x10(3)/[facility] Basophils % 0.7 % [facility] Basophils Abs 0.1 0.0 - 0.1 x10(3)/[facility] Immature Gran % 0.50 % [facility] Comment: Immature granulocytes(IG's)percentage and absolute count will include metamyelocytes, myelocytes, and promyelocytes. Blood smears from CBCs yielding IG's will be scanned manually for concordance. If this scan disagrees with the automated IG or if promyelocytes are noted, a manual differential will be performed. Karla Gran Abs 0.04 0.00 - 0.04 x10(3)/[facility] Blood specimen (specimen) 11/18/2017 8:33 PM EDT 11/18/2017 8:52 PM EDT Narrative Resulting Agency Comment Spec In Lab Reagan Andrea MD HEMATOLOGY ORDERABLE S [facility] [place] [place] [address] * Hemogram (11/18/2017 8:33 PM EDT) WBC 8.1 4.0 - 9.5 x10(3)/[facility] RBC 5.15 4.58 - 5.54 x10(6)/[facility] Hemoglobin 14.8 13.7 - 16.5 gm/dL [facility] Hematocrit 44.9 40.5 - 48.5 % [facility] MCV 87.2 82.9 - 93.1 fL [facility] MCH 28.7 27.5 - 32.1 pg [facility] MCHC 33.0 32.0 - 35.7 gm/dL [facility] Platelets 189 145 - 357 x10(3)/[facility] RDWSD 41.7 36.0 - 45.0 [facility] RDWCV 13.2 11.4 - 13.8 % [facility] MPV 10.5 7.6 - 12.9 [facility] nRBC % Auto 0.0 % [facility] nRBC Abs Auto 0.000 0.000 - 0.000 x10(3)/[facility] Blood specimen (specimen) 11/18/2017 8:33 PM EDT 11/18/2017 8:52 PM EDT Narrative Resulting Agency Comment Spec In Lab Reagan Andrea MD HEMATOLOGY ORDERABLE S Performing Organization Address City/[facility]/ZIP Co de Phone Number [facility] [place] [address] * (ABNORMAL) APTT (11/18/2017 8:33 PM EDT) PTT 105(Criti john) 25 - 37 sec [facility] Comment: Called by: [facility], Read back by: Kira Clemons, Date/Time:11/18/17 21:20. The PTT is NOT appropriate for heparin monitoring. Use the Anti-Xa level for heparin monitoring (HEP UFH) or LMWH monitoring (HEP LMW). A PTT less than 37 seconds generally indicates adequate hemostasis. Blood specimen (specimen) 11/18/2017 8:33 PM EDT 11/18/2017 8:52 PM EDT Narrative Resulting Agency Comment Spec In Lab Reagan Andrea MD HEMATOLOGY ORDERABLE S Performing Organization Address [facility] Co de Phone Number [facility] [place] [place] [address] * Prothrombin Time (11/18/2017 8:33 PM EDT) PT 11.2 9.4 - 12.5 sec [facility] INR 1.0 [facility] Comment: An INR <2.0 indicates adequate procoagulant activity for hemostasis in most patients without underlying bleeding disorders, though the INR may not adequately reflect hemostatic capacity in patients with liver disease and synthetic impairment. The recommended target INR range for therapeutic anticoagulation is 2.0 ? 3.0 for most applications, though lower and higher ranges may be appropriate depending on clinical circumstances. Blood specimen (specimen) 11/18/2017 8:33 PM EDT 11/18/2017 8:52 PM EDT Narrative Resulting Agency Comment Spec In Lab Reagan Andrea MD HEMATOLOGY ORDERABLE S [facility] [place] [place] [address] * pro-Brain Natriuretic Peptide (11/18/2017 8:33 PM EDT) ProBNP 431 <=450 pg/mL [facility] Blood specimen (specimen) 11/18/2017 8:33 PM EDT 11/18/2017 8:52 PM EDT Narrative Resulting Agency Comment Spec In Lab Reagan Andrea MD CHEMISTRY ORDERABLES Performing Organization Address [facility] Co de Phone Number [facility] [place] [place] [address] * Hepatic Function Panel (11/18/2017 8:33 PM EDT) [facility] Total Protein 7.1 6.1 - 8.0 gm/dL [facility] Albumin 4.3 3.2 - 5.2 gm/dL [facility] AST 30 0 - 39 unit/L [facility] ALT 23 0 - 55 unit/L [facility] Alk Phos 88 40 - 120 unit/L [facility] Total Bilirubin 0.5 0.2 - 1.3 mg/dL [facility] Bili, Direct 0.1 0.0 - 0.3 mg/dL [facility] Blood specimen (specimen) 11/18/2017 8:33 PM EDT 11/18/2017 8:52 PM EDT Narrative Resulting Agency Comment Spec In Lab Reagan Andrea MD CHEMISTRY ORDERABLES Performing Organization Address [facility] Co de Phone Number [facility] [place] [place] [address] * (ABNORMAL) Cardiac Enzymes (LEB/CGP) (11/18/2017 8:33 PM EDT) Troponin-T 0.09(H) 0.00 - 0.00 ng/mL [facility] Comment: The 99th percentile for Troponin T is less than 0.01 ng/mL, any detectable cTnT concentration using this assay should be considered elevated. According to the third universal definition of myocardial infarction the following criteria with a clinical presentation consistent with acute myocardial ischemia meets the diagnosis for a myocardial infarction ([place]). Detection of a rise and/or fall of cTnT, with at least one value greater than the 99th percentile (> or = 0.01) and with at least one of the following ?? Symptoms of ischemia ?? New or presumed new significant NP-nribgnz-U wave (ST-T) changes or new left bundle branch block (LBBB) ?? Development of pathologic Q waves in the ECG ?? Imaging evidence of new loss of viable myocardium or new regional wall motion abnormality ?? Identification of an intracoronary thrombus by angiography or autopsy Samples for cTnT testing should be obtained serially upon first assessment and again 3 to 6 hours later. If the clinical suspicion is high and previous samples have been negative an additional sample may be indicated. Reference: Third [place] Definition of Myocardial Infarction. Journal of the [employer] College [employer]iology 2012;60:1581-98 CK, Total 119 0 - 200 unit/L [facility] Blood specimen (specimen) 11/18/2017 8:33 PM EDT 11/18/2017 8:52 PM EDT Narrative Resulting Agency Comment Spec In Lab Reagan Andrea MD CHEMISTRY ORDERABLES [facility] [place] [place] [address] * (ABNORMAL) Basic Metabolic Panel (non-fasting) (11/18/2017 8:33 PM EDT) Glucose Lvl 92 65 - 199 mg/dL [facility] Comment:Diabetes: >=200 mg/d L plus symptoms BUN 27(H) 10 - 20 mg/dL [facility] Creatinine 1.46 0.80 - 1.50 mg/dL [facility] Sodium 141 135 - 145 mmol/L [facility] Potassium 3.9 3.5 - 5.0 mmol/L [facility] Comment: Please note: ??Patients with WBC >100,000 may have falsely elevated Potassium levels. ??For accurate Potassium quantification in these patients send serum separator tube (gold top) for subsequent determinations. ??Contact the Clinical Chemistry Laboratory if there are any questions. Chloride 101 98 - 107 mmol/L [facility] CO2 25 22 - 31 mmol/L [facility] Anion Gap 15 5 - 15 mmol/L [facility] Calcium 9.2 8.5 - 10.5 mg/dL [facility] Estimated GFR 47(L) >=60 [facility] Comment: The reported eGFR should be multiplied by 1.2 for patients. The MDRD is not an appropriate measure of renal function for patients with body mass extremes or in patients with acute kidney failure. http://Peerz/DHnkdep http://Peerz/DHMCnkf Blood specimen (specimen) 11/18/2017 8:33 PM EDT 11/18/2017 8:52 PM EDT Narrative Resulting Agency Comment Spec In Lab Reagan Andrea MD CHEMISTRY ORDERABLES Performing Organization Address [facility] Co de Phone Number [facility] [place] [address] * EKG 12 Lead (11/18/2017 8:26 PM EDT) Ventricular rate 55 BPM MUSE SYSTEM Atrial Rate 55 BPM MUSE SYSTEM P-R Interval 216 ms MUSE SYSTEM QRS Duration 88 ms MUSE SYSTEM Q-T Interval 438 ms MUSE SYSTEM QTC Calculated (Bezet) 419 ms MUSE SYSTEM Calculated P [place] 36 degrees MUSE SYSTEM Calculated T [place] 42 degrees MUSE SYSTEM INTERPRETATION Sinus bradycardia with 1st degree A-V block Otherwise normal ECG No previous ECGs available Confirmed by MD ENCISO ALAN ([id number]) on 11/19/2017 10:16:03 AM MUSE SYSTEM 11/18/2017 8:26 PM EDT 11/19/2017 10:16 AM EDT Reagan Andrea MD ECG ORDERABLES [place] [facility] documented in this encounter Visit Diagnoses Diagnosis Non-ST elevation myocardial infarction (NSTEMI) Acute myocardial infarction, subendocardial infarction, episode of care unspecified Non-ST elevation myocardial infarction (NSTEMI) Acute myocardial infarction, subendocardial infarction, episode of care unspecified Essential hypertension Unspecified essential hypertension HLD (hyperlipidemia) Other and unspecified hyperlipidemia NSTEMI (non-ST elevated myocardial infarction) Acute myocardial infarction, subendocardial infarction, episode of care unspecified documented in this encounter Admitting Diagnoses Diagnosis NSTEMI (non-ST elevated myocardial infarction) Acute myocardial infarction, subendocardial infarction, episode of care unspecified documented in this encounter Administered Medications Inactive Administered Medications - up to 3 most recent administrations Medication Order MAR Action Action Date Dose Rate Site aspirin chewable tablet 81 mg 81 mg, Oral, DAILY, First dose on Fri11/19/17 at 0900, Until Discontinued, Routine Given 11/20/2017 8:02 AM EDT 81 mg Given 11/19/2017 8:19 AM EDT 81 mg atorvastatin (LIPITOR) tablet 80 mg 80 mg, Oral, EVERY EVENING, First dose on Fri11/18/17 at 2315, Until Discontinued, Routine Given 11/19/2017 4:53 PM EDT 80 mg Given 11/18/2017 11:36 PM EDT 80 mg buPROPion (WELLBUTRIN SR or ZYBAN) SR tablet 150 mg 150 mg, Oral, 2 TIMES DAILY, First dose on Fri11/18/17 at 2315, Until Discontinued, DO NOT CRUSH OR OPEN, Routine Given 11/20/2017 8:01 AM EDT 150 mg Given 11/19/2017 8:13 PM EDT 150 mg Given 11/19/2017 4:48 AM EDT 150 mg clopidogrel (PLAVIX) tablet 75 mg 75 mg, Oral, DAILY, First dose on Fri11/19/17 at 0900, Until Discontinued, Routine Given 11/20/2017 8:02 AM EDT 75 mg Given 11/19/2017 8:18 AM EDT 75 mg docusate sodium (COLACE) capsule 100 mg 100 mg, Oral, 2 TIMES DAILY PRN, Starting on Fri11/18/17 at 2251, Until Fri11/20/17 at 1304, Constipation, Routine Given 11/18/2017 11:36 PM EDT 100 mg heparin (porcine) 25,000 unit/500 mL (50 unit/mL) infusion 1 dose, Starting on Fri11/18/17 at 202, Until Fri11/18/17 at 2030, EUGENE DIOR: cabinet override heparin 25,000 units in dextrose 5% 500 mL infusion 0-5,000 Units/hr (0-100 mL/hr), Intravenous, CONTINUOUS, Starting on Fri11/18/17 at 2045, Until Fri11/20/17 at 0755, BEGIN infusion at 1,000 units per hr (12 units/kg/hr). MAX INITIAL infusion rate is 1,000 units/hr. Target Heparin UFH Level (anti-Xa activity) = 0.3 - 0.7 IU/mL Start adjustment schedule 6 hours after starting infusion. If Heparin UFH Level is: - less than 0.1 IU/mL, administer PRN bolus and increase rate by 400 units per hr (4 units/kg/hr) - 0.1 - 0.29 IU/mL, administer PRN bolus and increase rate by 200 units per hr (2 units/kg/hr) - 0.3 - 0.7 IU/mL, No Change - 0.71 - 0.85 IU/mL, decrease rate by 100 units per hr (1 units/kg/hr) - 0.86 - 1.05 IU/mL, stop infusion for 30 minutes, then decrease rate by 200 units per hr (2 units/kg/hr) - Greater than 1.05 IU/mL, stop infusion for 60 minutes, then decrease rate by 300 units per hour (3 units/kg/hr) Repeat Heparin UFH Level 6 hours after initiating heparin. Then 6 hours after each dose adjustment. When 2 consecutive Heparin UFH Level within target range of 0.3 - 0.7 IU/mL, change Heparin UFH Level to once every 24 hours with A.M. labs while on heparin. RN to order required Heparin UFH Level - Per Protocol, Routine, Indication: ACS (STEMI vs NSTEMI vs UA) New Bag 11/18/2017 8:45 PM EDT 1,000 Units/hr 20 mL/hr New Bag 11/18/2017 8:30 PM EDT 1,000 Units/hr 20 mL/hr lidocaine (XYLOCAINE) 10 mg/mL (1 %) injection 3 mg 3 mg (0.3 mL), Subcutaneous, ONCE PRN, 1 dose, Starting on Fri11/18/17 at 2018, Until Fri11/20/17 at 1304, for discomfort with PIV insertion, Routine losartan (COZAAR) tablet 100 mg 100 mg, Oral, DAILY, First dose on Fri11/19/17 at 0900, Until Discontinued, Hold if BP < 100, Routine Given 11/20/2017 8:02 AM EDT 100 mg Given 11/19/2017 8:19 AM EDT 100 mg melatonin tablet 3 mg 3 mg, Oral, NIGHTLY, First dose on Fri11/19/17 at 2245, Until Discontinued, Routine metoprolol (LOPRESSOR) tablet 12.5 mg 12.5 mg, Oral, EVERY 12 HOURS SCHEDULED (2 times per day), First dose (after last modification) on Fri11/19/17 at 0900, Until Discontinued, Hold if HR < 55 or if SBP < 90, Routine Given 11/20/2017 8:01 AM EDT 12.5 mg Given 11/19/2017 8:14 PM EDT 12.5 mg Given 11/19/2017 8:18 AM EDT 12.5 mg sodium chloride 0.9 % flush 5 mL 5 mL, Intravenous, EVERY 12 HOURS, First dose on Fri11/18/17 at 2045, Until Discontinued, Routine Given 11/20/2017 8:45 AM EDT 5 mLs Given 11/19/2017 8:15 PM EDT 5 mLs Given 11/19/2017 8:45 AM EDT 5 mLs sodium chloride 0.9 % flush 5 mL 5 mL, Intravenous, 2 TIMES DAILY, First dose on Fri11/18/17 at 2315, Until Discontinued, Routine Given 11/19/2017 9:00 AM EDT 5 mLs sodium chloride 0.9 % flush 5 mL 5 mL, Intravenous, EVERY 12 HOURS, First dose on Fri11/18/17 at 2315, Until Discontinued, Cath (Day of Procedure), Routine Given 11/19/2017 11:15 PM EDT 5 mLs Given 11/19/2017 11:15 AM EDT 5 mLs sodium chloride 0.9 % flush 5-20 mL 5-20 mL, Intravenous, EVERY 1 MIN PRN, Starting on Fri11/18/17 at 2018, Until Nilda 11/20/17 at 1304, flush, Flush pertains to all indwelling lines. Flush per protocol found in the job aid using the link provided on this medication record., Routine sodium chloride 0.9% infusion 100 mL/hr, Intravenous, CONTINUOUS, Starting on Fri11/18/17 at 2315, Until Nilda 11/20/17 at 1304, Cath (Day of Procedure) New Bag 11/18/2017 11:36 PM EDT 100 mL/hr 100 mL/hr sodium chloride 0.9% infusion 100 mL/hr, Intravenous, CONTINUOUS, Starting on Fri11/19/17 at 1100, Until Fri11/19/17 at 1559, Recovery (Recovery-Hospital Unit) New Bag 11/19/2017 11:00 AM EDT 100 mL/hr 100 m L/hr temazepam (RESTORIL) capsule 15 mg 15 mg, Oral, NIGHTLY, First dose on Fri11/18/17 at 2315, Until Discontinued, Routine Given 11/19/2017 8:14 PM EDT 15 mg Given 11/18/2017 11:36 PM EDT 15 mg documented in this encounter Active and Recently Administered Medications Times are shown in EDT. Scheduled Medication Order 11/18/2017 11/19/2017 11/20/2017 aspirin chewable tablet 81 mg 81 mg, Oral, DAILY, First dose on Fri11/19/17 at 0900, Until Discontinued, Routine 0819 (Given - Provider: Mathew Stringer RN)1016 (OCT Hold - Provider: Admin Adt - Reason: Transfer to a Procedural area)1254 (OCT Unhold - Provider: Admin Adt) 0802 (Given - Provider: Mathew Stringer RN) atorvastatin (LIPITOR) tablet 80 mg 80 mg, Oral, EVERY EVENING, First dose on Fri11/18/17 at 2315, Until Discontinued, Routine 2336 (Given - Provider: Zeinab Ferris RN) 1016 (OCT Hold - Provider: Admin Adt - Reason: Transfer to a Procedural area)1254 (OCT Unhold - Provider: Admin Adt)1653 (Given - Provider: Kong Brennan RN) buPROPion (WELLBUTRIN SR or ZYBAN) SR tablet 150 mg 150 mg, Oral, 2 TIMES DAILY, First dose on Fri11/18/17 at 2315, Until Discontinued, DO NOT CRUSH OR OPEN, Routine 0448 (Given - Provider: Zeinab Ferris RN - Comment: waited for med to come from pharmacy)0900 (Not Given - Provider: Mathew Stringer RN - Reason: See comment - Comment: allready given)1016 (OCT Hold - Provider: Admin Adt - Reason: Transfer to a Procedural area)1254 ([facility] Unhold - Provider: Admin Adt)2012 (Given - Provider: Kong Brennan, MANAN) 08 (Given - Provider: Mathew Stringer, MANAN) clopidogrel (PLAVIX) tablet 75 mg 75 mg, Oral, DAILY, First dose on Fri11/19/17 at 0900, Until Discontinued, Routine 0818 (Given - Provider: Mathew Stringer RN)1016 ([facility] Hold - Provider: Admin Adt - Reason: Transfer to a Procedural area)1254 ([facility] Unhold - Provider: Admin Adt) 0802 (Given - Provider: Mathew Stringer RN) losartan (COZAAR) tablet 100 mg 100 mg, Oral, DAILY, First dose on Fri11/19/17 at 0900, Until Discontinued, Hold if BP < 100, Routine 0819 (Given - Provider: Mathew Stringer RN)1016 (OCT Hold - Provider: Admin Adt - Reason: Transfer to a Procedural area)1254 ([facility] Unhold - Provider: Admin Adt) 08 (Given - Provider: Mathew Stringer RN) melatonin tablet 3 mg 3 mg, Oral, NIGHTLY, First dose on Fri11/19/17 at 2245, Until Discontinued, Routine 2245 (Not Given - Provider: Zoila Ritchie RN - Reason: Patient/family refused) metoprolol (LOPRESSOR) tablet 12.5 mg 12.5 mg, Oral, EVERY 12 HOURS SCHEDULED (2 times per day), First dose (after last modification) on Fri11/19/17 at 0900, Until Discontinued, Hold if HR < 55 or if SBP < 90, Routine 0818 (Given - Provider: Mathew Stringer RN)1016 ([facility] Hold - Provider: Admin Adt - Reason: Transfer to a Procedural area)1254 ([facility] Unhold - Provider: Admin Adt)2013 (Given - Provider: Kong Brennan RN) 0801 (Given - Provider: Mathew Stringer, MANAN) sodium chloride 0.9 % flush 5 mL 5 mL, Intravenous, EVERY 12 HOURS, First dose on Fri11/18/17 at 2045, Until Discontinued, Routine 2044 (Given - Provider: Zeinab Ferris RN) 0845 (Given - Provider: Mathew Stringer RN)1016 ([facility] Hold - Provider: Admin Adt - Reason: Transfer to a Procedural area)1254 ([facility] Unhold - Provider: Admin Adt)2014 (Given - Provider: Kong Brennan, MANAN) 0845 (Given - Provider: Mathew Stringer, MANAN) sodium chloride 0.9 % flush 5 mL 5 mL, Intravenous, 2 TIMES DAILY, First dose on Fri11/18/17 at 2315, Until Discontinued, Routine 2315 (Not Given - Provider: eZinab Ferris RN - Reason: Contraindicated) 0900 (Given - Provider: Mathew Stringer RN)1016 ([facility] Hold - Provider: Admin Adt - Reason: Transfer to a Procedural area)1254 ([facility] Unhold - Provider: Admin Adt)2099 (Not Given - Provider: Kong Brennan RN - Reason: See comment - Comment: administered ar 1600) 0900 (Due - Provider: Admin Adt) sodium chloride 0.9 % flush 5 mL 5 mL, Intravenous, EVERY 12 HOURS, First dose on Fri11/18/17 at 2315, Until Discontinued, Cath (Day of Procedure), Routine 2315 (Not Given - Provider: Zeinab Ferris RN - Reason: Contraindicated) 1115 (Given - Provider: Mathew Stringer RN)2315 (Given - Provider: Zoila Ritchie RN) temazepam (RESTORIL) capsule 15 mg 15 mg, Oral, NIGHTLY, First dose on Fri11/18/17 at 2315, Until Discontinued, Routine 2336 (Given - Provider: Zeinab Ferris RN) 1016 ([facility] Hold - Provider: Admin Adt - Reason: Transfer to a Procedural area)1254 ([facility] Unhold - Provider: Admin Adt)2013 (Given - Provider: Kong Brennan, MANAN) Continuous Medication Order 11/18/2017 11/19/2017 11/20/2017 heparin 25,000 units in dextrose 5% 500 mL infusion (CANCELED)(Linked Group 1) 0-5,000 Units/hr (0-100 mL/hr), Intravenous, CONTINUOUS, Starting on Fri11/18/17 at 2045, Until Nilda 11/20/17 at 0755, BEGIN infusion at 1,000 units per hr (12 units/kg/hr). MAX INITIAL infusion rate is 1,000 units/hr. Target Heparin UFH Level (anti-Xa activity) = 0.3 - 0.7 IU/mL Start adjustment schedule 6 hours after starting infusion. If Heparin UFH Level is: - less than 0.1 IU/mL, administer PRN bolus and increase rate by 400 units per hr (4 units/kg/hr) - 0.1 - 0.29 IU/mL, administer PRN bolus and increase rate by 200 units per hr (2 units/kg/hr) - 0.3 - 0.7 IU/mL, No Change - 0.71 - 0.85 IU/mL, decrease rate by 100 units per hr (1 units/kg/hr) - 0.86 - 1.05 IU/mL, stop infusion for 30 minutes, then decrease rate by 200 units per hr (2 units/kg/hr) - Greater than 1.05 IU/mL, stop infusion for 60 minutes, then decrease rate by 300 units per hour (3 units/kg/hr) Repeat Heparin UFH Level 6 hours after initiating heparin. Then 6 hours after each dose adjustment. When 2 consecutive Heparin UFH Level within target range of 0.3 - 0.7 IU/mL, change Heparin UFH Level to once every 24 hours with A.M. labs while on heparin. RN to order required Heparin UFH Level - Per Protocol, Routine, Indication: ACS (STEMI vs NSTEMI vs UA) 2029 (New Bag - Provider: Zeinab Ferris RN)2044 (New Bag - Provider: Zeinab Ferris RN) 1016 ([facility] Hold - Provider: Admin Adt - Reason: Transfer to a Procedural area)1254 ([facility] Unhold - Provider: Admin Adt) sodium chloride 0.9% infusion 100 mL/hr, Intravenous, CONTINUOUS, Starting on Fri11/18/17 at 2315, Until Nilad 11/20/17 at 1304, Cath (Day of Procedure) 2336 (New Bag - Provider: Zeinab Ferris RN) sodium chloride 0.9% infusion () 100 mL/hr, Intravenous, CONTINUOUS, Starting on Fri11/19/17 at 1100, Until Fri11/19/17 at 1559, Recovery (Recovery-Hospital Unit) 1100 (New Bag - Provider: Lisa Amos, RN)1554 (Stopped - Provider: Kong Brennan, MANAN) PRN Medication Order 11/18/2017 11/19/2017 11/20/2017 docusate sodium (COLACE) capsule 100 mg 100 mg, Oral, 2 TIMES DAILY PRN, Starting on Fri11/18/17 at 2251, Until Nilda 11/20/17 at 1304, Constipation, Routine 2336 (Given - Provider: Zeinab Ferris RN) 1016 ([facility] Hold - Provider: Admin Adt - Reason: Transfer to a Procedural area)1254 ([facility] Unhold - Provider: Admin Adt) fentaNYL 50 mcg/mL multi-dose injection (CANCELED) ONCE PRN, Starting on Fri11/19/17 at 0906, Until Fri11/19/17 at 1026, Intra-Operative (Intra-Procedure), Routine 0906 (Given - Provider: Luz Zuniga RN)0929 (Given - Provider: Beronica Bloom, MANAN)0950 (Given - Provider: Lisa Johnson, MANAN) heparin (porcine) injection (CANCELED) ONCE PRN, Starting on Fri11/19/17 at 0923, Until Fri11/19/17 at 1026, Cath (Intra-Procedure), Routine 0923 (Given - Provider: Beronica Bloom RN)0946 (Given - Provider: Lisa Johnson, MANAN) iohexol (OMNIPAQUE) 350 mg/mL solution (CANCELED) ONCE PRN, Starting on Fri11/19/17 at 1024, Until Fri11/19/17 at 1026, Cath (Intra-Procedure), Routine 1024 (Given - Provider: Julita Gomez MD) lidocaine (XYLOCAINE) 10 mg/mL (1 %) injection 3 mg 3 mg (0.3 mL), Subcutaneous, ONCE PRN, 1 dose, Starting on Fri11/18/17 at 2018, Until Nilda 11/20/17 at 1304, for discomfort with PIV insertion, Routine 1016 ([facility] Hold - Provider: Admin Adt - Reason: Transfer to a Procedural area)1254 ([facility] Unhold - Provider: Admin Adt) lidocaine (XYLOCAINE) 10 mg/mL (1 %) injection 3 mg 3 mg (0.3 mL), Subcutaneous, ONCE PRN, 1 dose, Starting on Fri11/18/17 at 2257, Until Nilda 11/20/17 at 1304, for discomfort with PIV insertion, Routine 1016 ([facility] Hold - Provider: Admin Adt - Reason: Transfer to a Procedural area)1254 ([facility] Unhold - Provider: Admin Adt) lidocaine (XYLOCAINE) 10 mg/mL (1 %) injection 3 mg 3 mg (0.3 mL), Subcutaneous, ONCE PRN, 1 dose, Starting on Fri11/18/17 at 2257, Until Nilda 11/20/17 at 1304, with discomfort with PIV insertion, Cath (Day of Procedure), Routine midazolam (PF) (VERSED) 1 mg/mL multi-dose injection (CANCELED) ONCE PRN, Starting on Fri11/19/17 at 0905, Until Fri11/19/17 at 1026, Cath (Intra-Procedure), Routine 09 (Given - Provider: Luz Zuniga, MANAN)09 (Given - Provider: Beronica Bloom RN) nitroGLYcerin (NITROSTAT) SL tablet 0.4 mg 0.4 mg, Sublingual, EVERY 5 MIN PRN, Starting on Fri11/18/17 at 2257, Until Nilda 11/20/17 at 1304, Chest pain, May repeat every 5 minutes for a total of three doses. Notify provider if chest pain not relieved with nitroglycerin. Do not administer nitroglycerin if the patient has received or taken phosphodiesterase (PDE-5) inhibitors such as sildenafil, tadalafil or vardenafil within the last 24 to 72 hours., Routine 1016 ([facility] Hold - Provider: Admin Adt - Reason: Transfer to a Procedural area)1254 ([facility] Unhold - Provider: Admin Adt) nitroGLYcerin 100 mcg/mL intracoronary dilution (CANCELED) ONCE PRN, Starting on Fri11/19/17 at 0916, Until Fri11/19/17 at 1026, Cath (Intra-Procedure), Routine 09 (Given - Provider: Ernesto Camarena MD)1000 (Given - Provider: Ernesto Camarena MD) sodium chloride 0.9 % flush 5-20 mL 5-20 mL, Intravenous, EVERY 1 MIN PRN, Starting on Fri11/18/17 at 2018, Until Nilda 11/20/17 at 1304, flush, Flush pertains to all indwelling lines. Flush per protocol found in the job aid using the link provided on this medication record., Routine 1016 ([facility] Hold - Provider: Admin Adt - Reason: Transfer to a Procedural area)1254 ([facility] Unhold - Provider: Admin Adt) sodium chloride 0.9 % flush 5-20 mL 5-20 mL, Intravenous, EVERY 1 MIN PRN, Starting on Fri11/18/17 at 2257, Until Nilda 11/20/17 at 1304, flush, Flush pertains to all indwelling lines. Flush per protocol found in the job aid using the link provided on this medication record., Routine 1016 ([facility] Hold - Provider: Admin Adt - Reason: Transfer to a Procedural area)1254 ([facility] Unhold - Provider: Admin Adt) sodium chloride 0.9 % flush 5-20 mL 5-20 mL, Intravenous, EVERY 1 MIN PRN, Starting on Fri11/18/17 at 2257, Until Nilda 11/20/17 at 1304, flush, Flush pertains to all indwelling lines. Flush per protocol found in the job aid using the link provided on this medication record., Cath (Day of Procedure), Routine verapamil (ISOPTIN) injection (CANCELED) ONCE PRN, Starting on Fri11/19/17 at 0916, Until Fri11/19/17 at 1026, Administer over 2 Minutes, Cath (Intra-Procedure) 0916 (Given - Provider: Ernesto Camarena MD) Linked Groups Order Group 1: heparin (porcine) injection 0-4,000 Units (CANCELED) 0-4,000 Units, Intravenous, BOLUS PER HEPARIN PROTOCOL, Starting on Fri11/18/17 at 2020, Until Nilda 11/20/17 at 0755, Per Protocol, START ADJUSTMENT SCHEDULE 6 HOURS AFTER STARTING INFUSION Heparin UFH Level between 0.1 - 0.29 IU/mL: Bolus 2,000 units Heparin UFH Level less than 0.1 IU/mL: Bolus 4,000 units, Routine And heparin 25,000 units in dextrose 5% 500 mL infusion (CANCELED)Jump to med 0-5,000 Units/hr (0-100 mL/hr), Intravenous, CONTINUOUS, Starting on Fri11/18/17 at 2045, Until Nilda 11/20/17 at 0755, BEGIN infusion at 1,000 units per hr (12 units/kg/hr). MAX INITIAL infusion rate is 1,000 units/hr. Target Heparin UFH Level (anti-Xa activity) = 0.3 - 0.7 IU/mL Start adjustment schedule 6 hours after starting infusion. If Heparin UFH Level is: - less than 0.1 IU/mL, administer PRN bolus and increase rate by 400 units per hr (4 units/kg/hr) - 0.1 - 0.29 IU/mL, administer PRN bolus and increase rate by 200 units per hr (2 units/kg/hr) - 0.3 - 0.7 IU/mL, No Change - 0.71 - 0.85 IU/mL, decrease rate by 100 units per hr (1 units/kg/hr) - 0.86 - 1.05 IU/mL, stop infusion for 30 minutes, then decrease rate by 200 units per hr (2 units/kg/hr) - Greater than 1.05 IU/mL, stop infusion for 60 minutes, then decrease rate by 300 units per hour (3 units/kg/hr) Repeat Heparin UFH Level 6 hours after initiating heparin. Then 6 hours after each dose adjustment. When 2 consecutive Heparin UFH Level within target range of 0.3 - 0.7 IU/mL, change Heparin UFH Level to once every 24 hours with A.M. labs while on heparin. RN to order required Heparin UFH Level - Per Protocol, Routine, Indication: ACS (STEMI vs NSTEMI vs UA) documented in this encounter Care Teams Counter Tacker Relationship Specialty Start Date End Date Karo Otero MD [address] [place] [address] PCP - General Family Medicine 02/11/17 03/19/23 documented as of this encounter
--- OUTSIDE RECORDS SUMMARY | 2024-03-10 10:54 | XMS_ITS | Encounter Summary ---
Author Organization [facility] Address [address] [place] [address] Care Team Providers Care Shoe Cutter Name Role Phone Blnaco Myles MD Primary Care Provider [phone] Reason for Visit * Reason Comments Follow-up * Prior Authorization (Routine) - Authorized Specialty Diagnoses / Procedures [facility] To Contact Diagnoses Exudative age-related macular degeneration of left eye with active choroidal neovascularization ([facility] Intermediate stage nonexudative age-related macular degeneration of right eye Procedures IL INTRAVITREAL NJX PHARMACOLOGIC AGT SPX IL INJECTION, AFLIBERCEPT HD, 1 MG [facility] [address] [place] [id number] [facility] [address] [place] [id number] Referral ID Status Reason Start Date Expiration Date V isits Requested Visits Authorized [id number] Authorized 02/27/2024 02/26/2025 2 7 Encounter Details Date Type Department Care Team (Late st Contact Info) Description 02/27/2024 13:45 EDT Office Visit [facility] Ophthalmology - [address] [address] Anjum Miranda MD [address] [facility], [address] [place] [id number] Social History Tobacco Use Types Packs/Day Years [...] Progress Notes * Anjum Miranda MD - 02/27/2024 6610 EDT Chief Complaint Patient presents with Follow-up HPI Pt here for 9 week f/u for Wet AMD left eye S/P Eylea#1 left eye (12-26-23) [facility] stable. No floaters or flashes, No pain Base Eye Exam Visual Acuity (Snellen - Linear) Right Left Dist cc 20/30 20/70 -2 Dist ph cc NI Correction: Glasses Tonometry (Applanation, 14:17) Right Left Pressure 10 12 Neuro/Psych Oriented x3: Yes Mood/Affect: Normal Dilation Both eyes: Phenylephrine 2.5%, Tropicamide 1% @ 14:17 Slit Lamp and Fundus Exam Slit Lamp [...] Eyes Right Eye Progression has been stable. Findings include normal foveal contour. Left Eye Quality was good. Progression has been stable. Findings include intraretinal fluid, pigment epithelial detachment. Notes Drusen, no fluid right eye intraretinal fluid over SRfibrosis left eye Intravitreal Injection, Pharmacologic Agent - OS - Left Eye Time Out 02/27/2024. 14:57. Confirmed correct patient, procedure, site, and patient consented. Anesthesia Topical anesthesia was used. Anesthetic medications included Proparacaine 0.5%, Tetracaine 0.5%. Procedure Preparation included 5% betadine to ocular surface, eyelid speculum. A 30 gauge needle was used. Injection: 8 mg aflibercept 8 mg/0.07 mL Route: intravitreal, Site: Left Eye [facility]: [id number], Lot: [id number], Expiration date: 12/15/2024 Post-op Post injection exam found visual acuity of at least counting fingers. The patient tolerated the procedure well. There were no complications. The patient received written and verbal post procedure care education. Post injection medications were not given. DIAGNOSES: 1. Exudative age-related macular degeneration of left eye with active choroidal neovascularization ([facility]) OCT, RETINA - OU - BOTH EYES INTRAVITREAL INJECTION, PHARMACOLOGIC AGENT - OS - LEFT EYE aflibercept (EYLEA HD) intravitreal solution 8 mg 2. 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 I am scribing for Dr. Anjum Miranda MD while he is personally performing the service. Ga Iraheta (Scribe) documented in this encounter Plan of Treatment Upcoming Encounters Date Type Department Care Team (Late st Contact Info) Description 04/30/2024 13:00 EDT Office Visit [facility] Ophthalmology - [facility] [address], [place] [id number] Anjum Miranda MD [address] [facility], [address] [place] [phone] documented as of this encounter Procedures Procedure Name Priority Date/Time Associated Diagnosis Comments INTRAVITREAL INJECTION, PHARMACOLOGIC AGENT - OS - LEFT EYE Routine 02/27/2024 14:57 EDT Exudative age-related macular degeneration of left eye with active choroidal neovascularization ([facility]) OCT, RETINA - OU - BOTH EYES Routine 02/27/2024 14:44 EDT Exudative age-related macular degeneration of 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) Intermediate stage nonexudative age-related macular degeneration of right eye documented in this encounter Results * INTRAVITREAL INJECTION, PHARMACOLOGIC AGENT - OS - LEFT EYE (02/27/2024 14:57 EDT) Narrative [facility] POINT OF CARE - 02/27/2024 15:03 EDT Time Out 02/27/2024. 14:57. Confirmed correct patient, procedure, site, and patient consented. Anesthesia Topical anesthesia was used. Anesthetic medications included Proparacaine 0.5%, Tetracaine 0.5%. Procedure Preparation included 5% betadine to ocular surface, eyelid speculum. A 30 gauge needle was used. Injection: 8 mg aflibercept 8 mg/0.07 mL ??Route: intravitreal, Site: Left Eye ??[facility]: [id number], Lot: [id number], Expiration date: 12/15/2024 Post-op Post injection exam found visual acuity of at least counting fingers. The patient tolerated the procedure well. There were no complications. The patient received written and verbal post procedure care education. Post injection medications were not given. Anjum Miranda MD OPHTH CLINIC PROCEDU RES Performing Organization Address [facility] Co de Phone Number [facility] POINT OF CARE * OCT, RETINA - OU - BOTH EYES (02/27/2024 14:44 EDT) Narrative [facility] OPHTHALMOLOGY - 02/27/2024 15:03 EDT Right Eye Progression has been stable. Findings include normal foveal contour. Left Eye Quality was good. Progression has been stable. Findings include intraretinal fluid, pigment epithelial detachment. Notes Drusen, no fluid right eye intraretinal fluid over SRfibrosis left eye Anjum Miranda MD OPHTH TOMOGRAPHY Performing Organization Address [facility] de Phone Number [facility] OPHTHALMOLOGY documented in this encounter Visit Diagnoses Diagnosis Exudative age-related macular degeneration of left eye with active choroidal neovascularization ([facility] Primary Intermediate stage nonexudative age-related macular degeneration of right eye documented in this encounter Administered Medications Inactive Administered Medications - up to 3 most recent administrations Medication Order MAR Action Action Date Dose Rate Site aflibercept (EYLEA HD) intravitreal solution 8 mg 8 mg, intravitreal, Starting on Fri02/27/24 at 1503, Until Fri02/27/24 at 1503, Routine Given 02/27/2024 15:03 EDT 8 mg Left Eye documented in this encounter Orders Medications Ordered That Blayne ht Not Have Been Administered Count Last Ordered Date First Ordered Date aflibercept (EYLEA HD) intra vitreal solution 8 mg 1 02/27/2024 documented in this encounter Eye Exam Visual Acuity (Snellen - Linear) Right eye Left eye Dist cc 20/30 20/70 -2 Dist ph cc NI Correction: Glasses Tonometry (Applanation, 14:17) Right eye Left eye Pressure 10 12 Neuro/Psych Oriented x3: Yes Mood/Affect: Normal Dilation Both eyes: Phenylephrine 2.5 %, Tropicamide 1% @ 14:17 Slit Lamp Exam Right eye Left eye Conjunctiva/Sclera White and quiet White and shon et Cornea Clear Clear Anterior Chamber Deep and quiet Deep and quiet Iris Dilated Dilated Lens Posterior chamber in traocular lens Posterior chamber intraocular lens Fundus Exam Right eye Left eye Disc healthy healthy C/D Ratio 0.3 0.3 Macula rare large drusen Subretinal fib rosis Vessels Normal Normal Periphery Attached Attached Care Teams Shoe Cutter Relationship Specialty Start Date End Date Blanco Myles MD [address] [facility] [address] [place] [address] PCP - General Emergency Medicine 04/07/23 documented as of this encounter
--- OUTSIDE RECORDS SUMMARY | 2024-03-10 10:54 | XMS_ITS | Encounter Summary ---
[place] [address] Care Team Providers Care Zigzag Appliquer Name Role Phone Karo Otero MD Primary Care Provider [phone] Encounter Details Date Type Department Care Team (Late st Contact Info) Description 11/18/2017 [place] [phone] Phan Ken MD [facility] [address] Social History Tobacco Use Types Packs/Day Years [...] encounter Miscellaneous Notes * Telephone Encounter - Phan Ken - 11/18/2017 5:43 PM EDT Telephone Triage Note Initial Contact Date: 11/18/17 Initial contact time: 5:40 PM Referring Provider: Dr. Nieves Patient Location: [facility] Presenting Symptoms per OSH: 76 yo M without history of ASCVD (risk factor of HTN) developed substernal chest pain when climbingstairs last night that resolved with rest. This morning, had recurrent chest pain when climbing stairs - called EMS, received 2 SL NTG with resolution of pain. In the ED, he was pain free. ECG w/o ischemic changes. Tn 0.21 (ULN 0.06). Went to use the bathroom and had recurrence of pain right away -resolved with SL nitro. CP free now when not moving around. Vitally stable HR 70, BP 143/93, 95% RA. Plan: With accelerating CP and elevated troponin, presentation consistent with NSTEMI. Patient has received IV heparin and will received Plavix 300 mg, beta-latesha, and high intensity statin. Will transfer here for further work-up. I made the above recommendations with information provided to me over the phone and not able to interview or examine the patient myself. Phan Ken MD Radio Adjuster Pager [phone] documented in this encounter Plan of Treatment Upcoming Encounters Date Type Department Care Team (Late st Contact Info) Description 04/05/2024 3:00 PM EDT Office Visit Cardiology at [address] [place] [phone] Joel Link MD [facility] [place] [id number] 01/18/2025 10:15 AM EDT Office Visit Dermatology at [address] [place] [phone] Mathew Fernando MD [address] [place] [address] [place] [address] documented as of this encounter Visit Diagnoses Not on filedocumented in this encounter Care Teams Zigzag Appliquer Relationship Specialty Start Date End Date Karo Otero MD [address] [place] [address] PCP - General Family Medicine 02/11/17 03/19/23 documented as of this encounter
--- OUTSIDE RECORDS SUMMARY | 2024-03-10 10:54 | XMS_ITS | Encounter Summary ---
Author Organization [facility] [place] [address] Care Team Providers Care Usability Specialist Name Role Phone Karo Otero MD Primary Care Provider [phone] Reason for Visit * Auth/Cert Specialty Diagnoses / Procedures Referred By Contac t Referred To Contact Diagnoses NSTEMI (non-ST elevated myocardial infarction) [place], CP ?CAD Procedures CARDIAC CATHETERIZATION PHOEBE IPI Referral ID Status Reason Start Date Expiration Date Visits Re quested Visits Authorized [id number] 1 1 Encounter Details Date Type Department Care Team (Late st Contact Info) Description 11/19/2017 10:00 AM EDT - 11/19/2017 11:00 AM EDT Surgery [place] [address] Julita Gomez MD [facility] [place] [address] CARDIAC CATHETERIZATION Social History Tobacco Use Types Packs/Day Years [...] Brothers III Patient Age: 76 y.o. Language: Swedish Race: White Ethnicity: OR Admit date: 11/18/2017 [...] synthroid Inpatient Provider Contact Information: Lara Bass, PROGRAM ENGAGEMENT DIRECTOR Discharge Diagnoses (Hospital Problems) and Secondary Diagnoses [...] Brothers is a 76-year-old gentleman, transferred from [facility], with no known CAD, PMH [...] course: ECG : NSR, normal axis, prolonged OH, J-point elevation in V2 less than 1mm. [...] and Echo 5 yrs ago ( in [place] ), tests done prior to Knee Hemiarthroplasty ?? Hospital Course: On admission to [facility], the patient had no complaints of chest pain or shortness of breath. Telemetry was attached which showed normal sinus rhythm. Heparin drip was infusing. [facility] records/transfer records were reviewed. Baseline labs were checked and/or drawn. NSTEMI Patient sent from [facility] in the setting of chest [...] PLATELET 135 (L) 11/20/2017 Recent Labs 11/18/17 2033 INR 1.0 Lab Results Component Value Date [...] appointments: During 8am-5pm Friday through Friday call [phone] to speak with a nurse in the cardiology clinic All other times call [phone] and ask to speak to the weight loss sales consultant multifocal button generator. Return to work: Retired, no heavy lifting for one week (nothing greater than 5-7 lbs). Driving: No driving for 48 hours after catheterization. Follow up Appointments: PCP Karo Otero MD [phone] Your follow up appointment is scheduled for November 26, 2017 at 10:35 am (previously scheduled) Cardiology - Dr. Sukh Mishra [address] [place], [place] [id number] Your follow up appointment is scheduled for December 30, 2017 at 8:20 am (8 am arrival). Home oxygen therapy: N/A Arrangements for VNA/home care: none Future Appointments and Orders Future Appointments Provider Department Dept Phone 12/30/2017 8:20 AM Sukh Mishra Jr., MD Cardiology at [place] [phone] 08/14/2018 8:45 AM Mathew Fernando MD Dermatology at [place] [phone] Future Orders Complete By Expires Referral to Cardiac Rehab [[id number] Custom] As directed Process Instructions: If no progress note charted, please enter Clinical details in comments. Scheduling Instructions: Questions: My question or request is: NSTEMI. Cardiac rehab at [facility]. Discharge References/Attachments Jasmin Bass APRN [...] appointments: During 8am-5pm Friday through Friday call [phone] to speak with a nurse in the cardiology clinic All other times call [phone] and ask to speak to the weight loss sales consultant multifocal button generator. Return to work: Retired, no heavy lifting for one week (nothing greater than 5-7 lbs). Driving: No driving for 48 hours after catheterization. Follow up Appointments: PCP Karo Otero MD [phone] Your follow up appointment is scheduled for November 26, 2017 at 10:35 am (previously scheduled) Cardiology - Dr. Sukh Mishra [address] [place] [address] Your follow up appointment is scheduled for [...] included. Inpatient Cardiology Progress Note Patient Name: [facility]: FORESTRY INSTRUCTOR / PA Responsible Attending: Dick Renteria MD [...] ??? sodium chloride 0.9% 100 mL/hr (11/18/17 0216) PRN Meds:sodium chloride 0.9 %, lidocaine, sodium [...] and vitals reviewed. Lab Comments: Recent Labs 11/20/1742111/19/1722411/18/172032 WBC 6.3 6.2 8.1 HGB 13.3* 13.5* 14.8 HCT 40.0* 40.4* 44.9 PLATELET 135* 156 189 Recent Labs 11/18/172032 INR 1.0 Recent Labs 11/20/1742111/19/1722411/18/172032 NA 144 138 141 K 4.3 3.8 3.9 CL 104 103 101 CO2 22 26 25 BUN 20 25* 27* CREATININE 1.54* 1.56* 1.46 Recent Labs 11/18/172032 AST 30 ALT 23 ALKPHOS 88 BILITOT 0.5 BILIDIR 0.1 Recent Labs 11/20/1742111/19/1722411/18/172032 CALCIUM 8.9 8.7 9.2 Recent Labs 11/20/1742111/19/17 0839 11/19/17224 CK 127 105 104 TROPONINT 0.16* [...] is a 76 y.o. male transferred from [facility], with no known CAD, PMH of hypertension, HLD, CKD stage 3 who was transferred to [facility] in the setting of chest pain with elevated troponin. EKG without acute changes. He has had no further episodes since arrival to [facility]. Patient sent for coronary angiography on 11/19 [...] Full Code Discussed with Dick Renteria MD Emily Lubell, PROGRAM ENGAGEMENT DIRECTOR 11/20/2017 Cardiology Staff Addendum I have discussed, [...] PCI with 3.0 x 22 mm Resolute Mono JENNI. 75% late mid LAD disease --> PCI with 3.0 x 15 mm Resolute [place] JENNI No significant disease in RCA LVEDP [...] Note Patient Name: Tra Brothers III Service: FORESTRY INSTRUCTOR / PA Responsible Attending: Dick Renteria MD [...] been chest pain free since arrival to [facility]. NPO for cardiac catheterization today. Review of [...] is a 76 y.o. male transferred from [facility], with no known CAD, PMH of hypertension, HLD, CKD stage 3 who was transferred to [facility] in the setting of chest pain with elevated troponin. EKG without acute changes. He has had no further episodes since arrival to [facility]. Awaiting cardiac catheterization at this time. Plan: [...] Pre- cath fluids Full Code Lara Bass, PROGRAM ENGAGEMENT DIRECTOR 11/19/2017 Cardiology Staff Addendum I have discussed, [...] Brothers is a 76-year-old gentleman, transferred from [facility], with no known CAD, PMH [...] course: ECG : NSR, normal axis, prolonged OH, J-point elevation in V2 less than 1mm. 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 Pulses palpable, no calf tenderness Neuro/COMPUTER PROGRAMMER ANALYST: AAO x 3, No evident deficits Skin/Integumentary: [...] responsive. ECG : NSR, normal axis, prolonged OH, J-point elevation in V2 less than 1mm. [...] a referral for outpatient cardiac rehab at [facility]. The referral will be sent to [facility] at discharge. Activity Summary: By [...] Ongoing (Interventions Implemented as Appropriate) 11/20/17 0439 Individualization Patient Specific Goals I need some [...] Assistive Device Utilized -- none -- 11/19/17 1931 11/20/17 0201 Positioning Body Position -- independent Daily Care [...] Control Outcome: Ongoing (Interventions Implemented as Appropriate) 11/19/17 2140 11/20/17 0201 Coping Strategies Supportive Measures active listening utilized;decision-making [...] for doing Advance Directives. Provided copy(ies) of [place] [employer] [facility] Advance Directives Taking Steps booklet [...] Specific Information: none Health/Prescription Coverage: Primary Insurance: [facility] MANAGED MEDICARE Secondary Insurance: N/A Prescription Coverage: yes Preferred [facility]acy[facility] Primary Care Provider: Karo Otero MD [phone] Patient/Caregiver Goals of Treatment: discharge to home [...] assist with transition of care planning. Susana Henning, RN Pager: [phone] * Consult Note - Medina Krueger RN [...] in an outpatient cardiac rehabilitation program at [facility] was discussed. Patient agrees to [...] Heparin gtt infusing. Had one episode of 1/10 chest pain. Described as a twinge. Zully [...] Control Outcome: Ongoing (Interventions Implemented as Appropriate) 11/18/172014 Safety Interventions Isolation Precautions standard precautions maintained [...] further details. Reagan Andrea MD 11/18/2017 Pager [phone] documented in this encounter Plan of Treatment Upcoming Encounters Date Type Department Care Team (Late st Contact Info) Description 04/05/2024 3:00 PM EDT Office Visit Cardiology at [address] [place] [address] Joel Link MD [facility] [address] 01/18/2025 10:15 AM EDT Office Visit Dermatology at [address] [place] [phone] Mathew Fernando MD [address] [facility] [place] [address] Scheduled Referrals Name Type Priority Associated Diagnoses Orde r Schedule Referral to Cardiac Rehab Outpatient Referral Routine Non-ST elevation myocardial infarction (NSTEMI) Ordered: 11/20/2017 documented as of this encounter Procedures Procedure Name Priority Date/Time Associated Diagnosis Comments GROUNDWATER MONITORING TECHNICIAN SCAN 11/21/2017 12:00 AM EDT BMP W/FASTING GLUCOSE Routine 11/20/2017 4:22 AM EDT HEMOGRAM Routine 11/20/2017 4:22 AM EDT DIFFERENTIAL, AUTOMATED Routine 11/21/19 4:22 AM EDT CARDIAC ENZYMES ([facility]/CGP) Routine 11/20/2017 4:22 AM EDT CBC (WITH DIFF) Routine 11/20/2017 4:22 AM EDT T3, FREE Routine 11/20/2017 4:22 AM EDT TSH Routine 11/20/2017 4:22 AM EDT T4, FREE Routine 11/20/2017 4:22 AM EDT EKG 12-LEAD Routine 11/19/2017 10:46 AM EDT Non-ST elevation myocardial infarction (NSTEMI) CARDIAC CATHETERIZATION Routine 11/20/19 18 10:25 AM EDT ECHO COMPLETE Routine 11/19/2017 9:07 AM EDT Non-ST elevation myocardial infarction (NSTEMI) HEPARIN (UNFRACTIONATED) LEVEL Routine 11/19/2017 8:39 AM EDT CARDIAC ENZYMES ([facility]P) STAT 11/19/2017 8:39 AM EDT XR CHEST ONE VIEW Routine 11/19/2017 6:3 1 AM EDT HEPARIN (UNFRACTIONATED) LEVEL Routine 11/19/2017 2:25 AM EDT HEMOGRAM Routine 11/19/2017 2:25 AM EDT DIFFERENTIAL, AUTOMATED Routine 11/20/19 18 2:25 AM EDT CARDIAC ENZYMES ([facility]/CGP) STAT 11/19/2017 2:25 AM EDT CBC (WITH [...] 11/19/19 18 8:33 PM EDT CARDIAC ENZYMES ([facility]/CGP) STAT 11/18/2017 8:33 PM EDT APTT STAT [...] in this encounter Results * SCAN DOC: GROUNDWATER MONITORING TECHNICIAN (11/21/2017 12:00 AM EDT) Anatomical Region Laterality Modality Other Narrative 11/21/2017 12:00 AM EDT Ordered by an unspecified provider. Scanning Provider MEDIA MGR SCAN EXT O RDR/RSLT * T4, free (11/20/2017 4:22 AM EDT) Free T4 1.16 0.93 - 1.70 ng/dL [facility] Blood specimen (specimen) Venous Draw / Unknown 11/20/2017 4:22 AM EDT 11/20/2017 4:39 AM EDT Narrative Resulting Agency Comment Spec In Lab Lara Aguero PROGRAM ENGAGEMENT DIRECTOR CHEMISTRY ORDERABLES Performing Organization Address [facility] Co de Phone Number [facility] [place] [address] * T3, free (11/20/2017 4:22 AM EDT) T3, Free 2.6 2.0 - 4.4 pg/mL [facility] Blood specimen (specimen) Venous Draw / Unknown 11/20/2017 4:22 AM EDT 11/20/2017 4:39 AM EDT Narrative Resulting Agency Comment Spec In Lab Lara Aguero PROGRAM ENGAGEMENT DIRECTOR CHEMISTRY ORDERABLES Performing Organization Address [facility] Co de Phone Number [facility] [place] [address] * (ABNORMAL) TSH (11/20/2017 4:22 AM EDT) Pathologist [facility] TSH 6.29(H) 0.27 - 4.20 mlU/ML [facility] Blood specimen (specimen) Venous Draw / Unknown 11/20/2017 4:22 AM EDT 11/20/2017 4:39 AM EDT Narrative Resulting Agency Comment Spec In Lab Lara Aguero PROGRAM ENGAGEMENT DIRECTOR CHEMISTRY ORDERABLES Performing Organization Address City/[facility] Co de Phone Number [facility] [place] [address] * Differential, Automated (11/20/2017 4:22 AM EDT) Neutrophils % 59.0 % [facility] Neutr Abs (ANC) 3.72 1.70 - 6.10 x10(3)/[facility] Lymphocytes % 27.5 % [facility] Lymphocytes Abs 1.7 0.9 - 3.2 x10(3)/[facility] Monocytes % 9.4 % [facility] Monocyte Abs 0.6 0.3 - 0.9 x10(3)/[facility] Eosinophils % 3.0 % [facility] Eosinophils Abs 0.2 0.0 - 0.4 x10(3)/[facility] Basophils % 0.8 % [facility] Basophils Abs 0.0 0.0 - 0.1 x10(3)/[facility] Immature Gran % 0.30 % [facility] Comment: Immature granulocytes(IG's)percentage and absolute count will include metamyelocytes, myelocytes, and promyelocytes. Blood smears from CBCs yielding IG's will be scanned manually for concordance. If this scan disagrees with the automated IG or if promyelocytes are noted, a manual differential will be performed. Karla Gran Abs 0.02 0.00 - 0.04 x10(3)/[facility] Blood specimen (specimen) 11/20/2017 4:22 AM EDT 11/20/2017 4:37 AM EDT Narrative Resulting Agency Comment Spec In Lab Reagan Andrea MD HEMATOLOGY ORDERABLE S [facility] [place] [address] * (ABNORMAL) Hemogram (11/20/2017 4:22 AM EDT) WBC 6.3 4.0 - 9.5 x10(3)/[facility] RBC 4.56(L) 4.58 - 5.54 x10(6)/[facility] Hemoglobin 13.3(L) 13.7 - 16.5 gm/dL [facility] Hematocrit 40.0(L) 40.5 - 48.5 % [facility] MCV 87.7 82.9 - 93.[address] [facility] MCH 29.2 27.5 - 32.[address] [facility] MCHC 33.3 32.0 - 35.7 gm/dL [facility] Platelets 135(L) 145 - 357 x10(3)/[facility] RDWSD 42.9 36.0 - 45.0 [facility] RDWCV 13.2 11.4 - 13.8 % [facility] MPV 10.5 7.6 - 12.9 [facility] nRBC % Auto 0.0 % [facility] nRBC Abs Auto 0.000 0.000 - 0.000 x10(3)/[facility] Blood specimen (specimen) 11/20/2017 4:22 AM EDT 11/20/2017 4:37 AM EDT Narrative Resulting Agency Comment Spec In Lab Reagan Andrea MD HEMATOLOGY ORDERABLE S Performing Organization Address City/State/[facility] Co de Phone Number [facility] [place] [phone] * (ABNORMAL) BMP w/fasting Glucose (11/20/2017 4:22 AM EDT) Glucose Fasting 101(H) 65 - 99 mg/dL [facility] Comment: ?Fasting* Glucose Interpretive [...] of Diabetes Mellitus, Position Statement from the [place] Diabetes Association. ??Diabetes Care, Volume 33, Supplement 1, Aug 2009 BUN 20 10 - 20 mg/dL [facility] Creatinine 1.54(H) 0.80 - 1.50 mg/dL [facility] Sodium 144 135 - 145 mmol/L [facility] Potassium 4.3 3.5 - 5.0 mmol/L [facility] Comment: Please note: ??Patients with WBC >100,000 may have falsely elevated Potassium levels. ??For accurate Potassium quantification in these patients send serum separator tube (gold top) for subsequent determinations. ??Contact the Clinical Chemistry Laboratory if there are any questions. Chloride 104 98 - 107 mmol/L [facility] CO2 22 22 - 31 mmol/L [facility] Anion Gap 18(H) 5 - 15 mmol/L [facility] Calcium 8.9 8.5 - 10.5 mg/dL [facility] Estimated GFR 44(L) >=60 [facility] Comment: The reported eGFR should be multiplied by 1.2 for patients. The MDRD is not an appropriate measure of renal function for patients with body mass extremes or in patients with acute kidney failure. http://[employer]/DHnkdep http://[employer]/DHMCnkf Blood specimen (specimen) 11/20/2017 4:22 AM EDT 11/20/2017 4:37 AM EDT Narrative Resulting Agency Comment Spec In Lab Lara Aguero APRN CHEMISTRY ORDERABLES [facility] [place] [address] * (ABNORMAL) Cardiac Enzymes (LEB/CGP) (11/20/2017 4:22 AM EDT) Troponin-T 0.16(H) 0.00 - 0.00 ng/mL [facility] Comment: The 99th percentile for Troponin T is less than 0.01 ng/mL, any detectable cTnT concentration using this assay should be considered elevated. According to the third universal definition of myocardial infarction the following criteria with a clinical presentation consistent with acute myocardial ischemia meets the diagnosis for a myocardial infarction (ME). Detection of a rise and/or fall of cTnT, with at least one value greater than the 99th percentile (> or = 0.01) and with at least one of the following ?? Symptoms of ischemia ?? New or presumed new significant [id number]-M wave (ST-T) changes or new left bundle [...] additional sample may be indicated. Reference: Third [place] Definition of Myocardial Infarction. Journal of the [place] College of Cardiology 2012;60:1581-98 CK, Total 127 0 - 200 unit/L [facility] Blood specimen (specimen) 11/20/2017 4:22 AM EDT 11/20/2017 4:37 AM EDT Narrative Resulting Agency Comment Spec In Lab Julita Gomez MD CHEMISTRY ORDERAB LES Performing Organization Address [facility] Co de Phone Number [facility] [place] [address] * EKG 12 Lead (11/19/2017 10:46 AM EDT) Ventricular rate 51 BPM MUSE SYSTEM Atrial Rate 51 BPM MUSE SYSTEM P-R Interval 220 ms MUSE SYSTEM QRS Duration 80 ms MUSE SYSTEM Q-T Interval 504 ms MUSE SYSTEM QTC Calculated (Bezet) 464 ms MUSE SYSTEM Calculated P [place] 24 degrees MUSE SYSTEM Calculated R [place] -3 degrees MUSE SYSTEM Calculated T [place] 69 degrees MUSE SYSTEM INTERPRETATION Sinus bradycardia with 1st degree A-V block Otherwise normal ECG When compared with ECG of 18-NOV-2017 23:57, No significant change was found Confirmed by MD LOPEZ ARMIN ([id number]) on 11/19/2017 8:29:14 PM MUSE SYSTEM 11/19/2017 10:4 6 AM EDT 11/19/2017 8:29 PM EDT Julita J Coylewright MD ECG ORDERABLES MUSE SYSTEM * CARDIAC CATHETERIZATION (11/19/2017 10:25 AM EDT) Anatomical Region Laterality Modality Other Narrative 11/19/2017 12:31 PM EDT ?[facility] ? Cardiac Catheterization/Intervention Report ? Patient Name: Tra Brothers ? Procedure Date: 11/19/2017 ? A #: [id number] ? Primary Physician: Julita Gomez ? Case #: [id number] ? File Name: [id number] ? Catheterization Order Number: [id number] ? [facility] ? Final Report [place], [place] ? Patient Name: ? Tra Garges ?ID#: ?[id number] ? : ?1940 ? Procedure Date: ? [...] patient presented with: non-STEMI (w/i 7 days). [place] ?Cardiovascular Society angina class was IV. No [...] A premounted 3.00 x 15 mm Resolute MONO (JENNI) was deployed ? with a maximum [...] A premounted 3.00 x 22 mm Resolute MONO (JENNI) was deployed ? with a maximum [...] dose administered prior to arrival in the senior laboratory technician. ?Recommend continuing clopidogrel 75 mg PO daily [...] ?heart catheterization and stent insertion-coronary. ? Julita Gomez, ? M.D. ? Electronically Signed by: Julita Gomez M.D. ? Report Finalized: 11/19/2017 ??12:25 ? Procedure Note Julita Gomez MD - 11/19/2017 [facility] Cardiac Catheterization/Intervention Report Patient Name: Tra Brothers Procedure Date: 11/19/2017 A #: [id number] Primary Physician: Julita Gomez Case #: [id number] File Name: [id number] Catheterization Order Number: [id number] [facility] FinalReport [place], [place] Patient Name: Tra Brothers ID#:[id number] :1940 Procedure Date: November 19, 2017 Case [...] patient presented with: non-STEMI (w/i 7 days). [place] Cardiovascular Society angina class was IV. No [...] 13.6 minutes, dose area product was 96,350 [id number] air kerma was 793 mGY. The patient [...] The lesion was predilated with a 2.50mm [id number] MM balloon with a maximum inflation pressure of 12atmospheres. A premounted 3.00 x 15 mm Resolute MONO (JENNI) wasdeployed with a maximum inflation pressure [...] The lesion was predilated with a 2.50mm [id number] MM balloon with a maximum inflation pressure of 12atmospheres. A premounted 3.00 x 22 mm Resolute MONO (JENIN) wasdeployed with a maximum inflation pressure of 16 atmospheres. The final outcome was defined as successful. There was no residual stenosis following this intervention. The finalTIMI flow was 3. Vascular Access: Vascular Access Management: Mechanical Compression of the right radial artery access sitewas performed. Dual Antiplatelet (DAPT) Recommendations: Drug eluting stent (JENNI) inserted. P2Y12 Loading dose administered prior to arrival in the senior laboratory technician. Recommend continuing clopidogrel 75 mg PO daily [...] 9:51 AM EDT Procedure: ?Transthoracic Echocardiogram Patient: ?HEIDY GALLARDO ? (Age): 1940(76y) Med Rec#: ? [id number] ?Sex: ?M ? Site Loc: ? [facility] ?Ht / Wt: ??180(cm)/97(kg) Pt. Loc: ?Adult Floor ? BSA: ?2.17 Study Date: ?? 11/19/2017 ?Pt. Type: Inpatient Tape: ? Referring: NORRIS DELEON J Reading: Rustam Dave ([id number]) Specialized Language Instructor: Andrea Esparza MAKENZIE Diagnosis: *ICD-10-PCS Non-ST elevation (NSTEMI) myocardial infarction [...] E-wave Vmax ?0.7 ?m/sec ? MV deceleration [id number] ?msec ? MV A-wave Vmax ?0.8 ?m/sec [...] ? Mid-Inferior ?Normal ? Mid-Inferoseptal ?Normal ? [place]-Septal ? Normal ? [place]-Anterior ? Normal ? [place]-Lateral ?Normal ? [place]-Inferior ? Normal ? [place]-Tip ?Normal ? This report has been electronically signed by: Rustam Dave M.D. ? 11/19/2017 09:50:55 Images reviewed and interpretation verified [facility]iac Ultrasound [facility] Procedure Note Rustam Dave MD - 11/19/2017 Procedure: Transthoracic Echocardiogram Patient: HEIDY WISDOM(Age): 1940(76y) Med Rec#: [id number] Sex: M Site Loc: [facility] Ht / Wt: 180(cm)/97(kg) Pt. Loc: Adult Floor BSA: 2.17 Study Date: 11/19/2017 Pt. Type: Inpatient Tape: Referring: NORRIS DELEON J Reading: Rustam Dave ([id number]) Specialized Language Instructor: Andrea Esparza RD Diagnosis: *ICD-10-PCS Non-ST elevation (NSTEMI) myocardial infarction [...] MV E-wave Vmax 0.7 m/sec MV deceleration [id number] msec MV A-wave Vmax 0.8 m/sec MV [...] Normal Mid-Posterolateral Akinetic Mid-Inferior Normal Mid-Inferoseptal Normal [place]-Septal Normal [place]-Anterior Normal [place]-Lateral Normal [place]-Inferior Normal [place]-Tip Normal This report has been electronically signed by: Rustam Dave M.D. 11/19/2017 09:50:55 Images reviewed and interpretation verified [facility] Reagan Andrea MD ECHO ORDERABLES * Heparin (unfractionated) Level (11/19/2017 8:39 AM EDT) Heparin UFH Level 0.45 IU/mL [facility] Comment: Guidelines for therapeutic unfractionated heparin [...] Lab Reagan Andrea MD HEMATOLOGY ORDERABLE S [facility] [place] [place] [address] * (ABNORMAL) Cardiac Enzymes (LEB/CGP) (11/19/2017 8:39 AM EDT) Troponin-T 0.04(H) 0.00 - 0.00 ng/mL [facility] Comment: The 99th percentile for Troponin T is less than 0.01 ng/mL, any detectable cTnT concentration using this assay should be considered elevated. According to the third universal definition of myocardial infarction the following criteria with a clinical presentation consistent with acute myocardial ischemia meets the diagnosis for a myocardial infarction (ME). Detection of a rise and/or fall of cTnT, with at least one value greater than the 99th percentile (> or = 0.01) and with at least one of the following ?? Symptoms of ischemia ?? New or presumed new significant [place]-vawvgph-V wave (ST-T) changes or new left bundle [...] additional sample may be indicated. Reference: Third [place] Definition of Myocardial Infarction. Journal of the [place] [employer] 2012;60:1581-98 CK, Total 105 0 - 200 unit/L [facility] Blood specimen (specimen) 11/19/2017 8:39 AM EDT 11/19/2017 8:51 AM EDT Narrative Resulting Agency Comment Spec In Lab Reagan Andrea MD CHEMISTRY ORDERABLES [facility] [place] [place] [address] * XR Chest PA or AP 1 [...] vasculature are within normal limits. Procedure Note Lorelei Shepard MD - 11/19/2017 EXAMINATION: XR CHEST [...] AM EDT) Heparin UFH Level 0.44 IU/mL [facility] Comment: Guidelines for therapeutic unfractionated heparin [...] MD HEMATOLOGY ORDERABLE S Performing Organization Address City/[facility]/ZIP Co de Phone Number [facility] [place] [address] * Differential, Automated (11/19/2017 2:25 AM EDT) Neutrophils % 59.0 % [facility] Neutr Abs (ANC) 3.68 1.70 - 6.10 x10(3)/[facility] Lymphocytes % 28.0 % [facility] Lymphocytes Abs 1.8 0.9 - 3.2 x10(3)/[facility] Monocytes % 10.3 % [facility] Monocyte Abs 0.6 0.3 - 0.9 x10(3)/[facility] Eosinophils % 1.8 % [facility] Eosinophils Abs 0.1 0.0 - 0.4 x10(3)/[facility] Basophils % 0.6 % [facility] Basophils Abs 0.0 0.0 - 0.1 x10(3)/[facility] Immature Gran % 0.30 % [facility] Comment: Immature granulocytes(IG's)percentage and absolute count will include metamyelocytes, myelocytes, and promyelocytes. Blood smears from CBCs yielding IG's will be scanned manually for concordance. If this scan disagrees with the automated IG or if promyelocytes are noted, a manual differential will be performed. Karla Gran Abs 0.02 0.00 - 0.04 x10(3)/[facility] Blood specimen (specimen) 11/19/2017 2:25 AM EDT 11/19/2017 2:40 AM EDT Narrative Resulting Agency Comment Spec In Lab Reagan Andrea MD HEMATOLOGY ORDERABLE S Performing Organization Address City/[facility]/ZIP Co de Phone Number [facility] [place] [address] * (ABNORMAL) Hemogram (11/19/2017 2:25 AM EDT) WBC 6.2 4.0 - 9.5 x10(3)/[facility] RBC 4.65 4.58 - 5.54 x10(6)/[facility] Hemoglobin 13.5(L) 13.7 - 16.5 gm/dL [facility] Hematocrit 40.4(L) 40.5 - 48.5 % [facility] MCV 86.9 82.9 - 93.1 [facility] MCH 29.0 27.5 - 32.1 pg [facility] MCHC 33.4 32.0 - 35.7 gm/dL [facility] Platelets 156 145 - 357 x10(3)/[facility] RDWSD 41.2 36.0 - 45.0 [facility] RDWCV 13.1 11.4 - 13.8 % [facility] MPV 10.6 7.6 - 12.9 [facility] nRBC % Auto 0.0 % [facility] nRBC Abs Auto 0.000 0.000 - 0.000 x10(3)/[facility] Blood specimen (specimen) 11/19/2017 2:25 AM EDT 11/19/2017 2:40 AM EDT Narrative Resulting Agency Comment Spec In Lab Reagan Andrea MD HEMATOLOGY ORDERABLE S [facility] [place] [place] [address] * Hemoglobin A1c (11/19/2017 2:25 AM EDT) Hemoglobin A1C 5.4 4.3 - 5.6 % [facility] Comment: Reference Range: 4.3 [...] Mellitus, Diabetes Care 2013; 36: Suppl. 1, S67-74 Est Avg Gluc See note mg/dL [facility] Comment: Estimated Average Glucose [...] into estimated average glucose values. ??Diabetes Care 2008:31(8):7737-6882. Blood specimen (specimen) 11/19/2017 2:25 AM EDT 11/19/2017 2:40 AM EDT Narrative Resulting Agency Comment Spec In Lab Reagan Andrea MD CHEMISTRY ORDERABLES [facility] [place] [place] [address] * (ABNORMAL) Basic Metabolic Panel (non-fasting) (11/19/2017 2:25 AM EDT) Glucose Lvl 99 65 - 199 mg/dL [facility] Comment:Diabetes: >=200 mg/d L plus symptoms BUN 25(H) 10 - 20 mg/dL [facility] Creatinine 1.56(H) 0.80 - 1.50 mg/dL [facility] Sodium 138 135 - 145 mmol/L [facility] Potassium 3.8 3.5 - 5.0 mmol/L [facility] Comment: Please note: ??Patients with WBC >100,000 may have falsely elevated Potassium levels. ??For accurate Potassium quantification in these patients send serum separator tube (gold top) for subsequent determinations. ??Contact the Clinical Chemistry Laboratory if there are any questions. Chloride 103 98 - 107 mmol/L [facility] CO2 26 22 - 31 mmol/L [facility] Anion Gap 9 5 - 15 mmol/L [facility] Calcium 8.7 8.5 - 10.5 mg/dL [facility] Estimated GFR 43(L) >=60 [facility] Comment: The reported eGFR should be multiplied by 1.2 for patients. The MDRD is not an appropriate measure of renal function for patients with body mass extremes or in patients with acute kidney failure. http://[employer]/DHnkdep http://[employer]/DHMCnkf Blood specimen (specimen) 11/19/2017 2:25 AM EDT 11/19/2017 2:40 AM EDT Narrative Resulting Agency Comment Spec In Lab Reagan Andrea MD CHEMISTRY ORDERABLES [facility] [place] [place] [address] * Lipid Panel (11/19/2017 2:25 AM EDT) Chol, Total 158 mg/dL [facility] Comment: Lower Risk: <200 mg/dL Average Risk: 200-239 mg/dL Higher Risk: >zc=106 mg/dL Triglycerides 96 mg/dL [facility] Comment: Average Risk/Lower Risk: <150 mg/dL Borderline High Risk: 150-199 mg/dL High Risk: 200-499 mg/dL Very High Risk: >pv=852 mg/dL HDL 53 mg/dL [facility] Comment: Males: ?? Higher Risk: <40 mg/dL Females: ?? HIgher Risk: <50 mg/dL LDL Cholesterol 86 mg/dL [facility] Comment: Lowest Risk: <100 mg/dL Lower Risk: 100-129 mg/dL Borderline High Risk: 130-159 mg/dL High Risk: 160-189 mg/dL Very High Risk: >ah=002 mg/dL Chol/HDL Ratio 3.0 ratio [facility] Lipid Interpretation See Note [facility] Comment: Lipid management should be guided by a patient? s ASCVD risk, goals and preferences. ACC/AHA Guidelines recommend high intensity statin if clinical ASCVD or LDL greater than or equal to 190 mg/dL. http://[employer].com/OZR-CBY-Ktbihswkg Adults aged 40-75 with LDL 70-189 mg/dL should have their 10 year ASCVD risk estimated with the ACC/AHA ASCVD risk loom winder tender http://tools.acc.org/ISZQJ-Jfnr-Zlkciehtd/ Statin should be discussed if risk greater [...] In Lab Reagan Andrea MD CHEMISTRY ORDERABLES [facility] [place] [place] [address] * (ABNORMAL) Cardiac Enzymes (LEB/CGP) (11/19/2017 2:25 AM EDT) Troponin-T 0.05(H) 0.00 - 0.00 ng/mL [facility] Comment: The 99th percentile for Troponin T is less than 0.01 ng/mL, any detectable cTnT concentration using this assay should be considered elevated. According to the third universal definition of myocardial infarction the following criteria with a clinical presentation consistent with acute myocardial ischemia meets the diagnosis for a myocardial infarction (ME). Detection of a rise and/or fall of cTnT, with at least one value greater than the 99th percentile (> or = 0.01) and with at least one of the following ?? Symptoms of ischemia ?? New or presumed new significant LR-mihvjct-F wave (ST-T) changes or new left bundle [...] additional sample may be indicated. Reference: Third [place] Definition of Myocardial Infarction. Journal of the [place] College [employer]iology 2012;60:1581-98 CK, Total 104 0 - 200 unit/L [facility] Blood specimen (specimen) 11/19/2017 2:25 AM EDT 11/19/2017 2:41 AM EDT Narrative Resulting Agency Comment Spec In Lab Reagan Andrea MD CHEMISTRY ORDERABLES [facility] [place] [address] * EKG 12 Lead (11/18/2017 11:57 PM EDT) Ventricular rate 58 BPM MUSE SYSTEM Atrial Rate 58 BPM MUSE SYSTEM P-R Interval 226 ms MUSE SYSTEM QRS Duration 86 ms MUSE SYSTEM Q-T Interval 450 ms MUSE SYSTEM QTC Calculated (Bezet) 441 ms MUSE SYSTEM Calculated P [place] 33 degrees MUSE SYSTEM Calculated R [place] 2 degrees MUSE SYSTEM Calculated T [place] 66 degrees MUSE SYSTEM INTERPRETATION Sinus bradycardia with 1st degree A-V block Otherwise normal ECG When compared with ECG of 18-NOV-2017 20:26, (unconfirmed) No significant change was found Confirmed by MD ENCISO ALAN ([id number]) on 11/19/2017 10:16:27 AM MUSE SYSTEM 11/18/2017 11:5 7 PM EDT 11/19/2017 10:16 AM EDT Reagan Andrea MD ECG ORDERABLES Performing Organization Address [facility] Co de Phone Number MUSE SYSTEM * Heparin (unfractionated) Level (11/18/2017 8:33 PM EDT) Heparin UFH Level 0.66 IU/mL [facility] Comment: Guidelines for therapeutic unfractionated heparin [...] MD HEMATOLOGY ORDERABLE S Performing Organization Address [facility] Co de Phone Number [facility] [place] [address] * Differential, Automated (11/18/2017 8:33 PM EDT) Neutrophils % 62.8 % [facility] Neutr Abs (ANC) 5.08 1.70 - 6.10 x10(3)/[facility] Lymphocytes % 25.8 % [facility] Lymphocytes Abs 2.1 0.9 - 3.2 x10(3)/[facility] Monocytes % 8.7 % [facility] Monocyte Abs 0.7 0.3 - 0.9 x10(3)/[facility] Eosinophils % 1.5 % [facility] Eosinophils Abs 0.1 0.0 - 0.4 x10(3)/[facility] Basophils % 0.7 % [facility] Basophils Abs 0.1 0.0 - 0.1 x10(3)/[facility] Immature Gran % 0.50 % [facility] Comment: Immature granulocytes(IG's)percentage and absolute count will include metamyelocytes, myelocytes, and promyelocytes. Blood smears from CBCs yielding IG's will be scanned manually for concordance. If this scan disagrees with the automated IG or if promyelocytes are noted, a manual differential will be performed. Karla Gran Abs 0.04 0.00 - 0.04 x10(3)/[facility] Blood specimen (specimen) 11/18/2017 8:33 PM EDT 11/18/2017 8:52 PM EDT Narrative Resulting Agency Comment Spec In Lab Reagan Andrea MD HEMATOLOGY ORDERABLE S [facility] [place] [address] * Hemogram (11/18/2017 8:33 PM EDT) WBC 8.1 4.0 - 9.5 x10(3)/[facility] RBC 5.15 4.58 - 5.54 x10(6)/[facility] Hemoglobin 14.8 13.7 - 16.5 gm/dL [facility] Hematocrit 44.9 40.5 - 48.5 % [facility] MCV 87.2 82.9 - 93.1 [facility] MCH 28.7 27.5 - 32.1 pg [facility] MCHC 33.0 32.0 - 35.7 gm/dL [facility] Platelets 189 145 - 357 x10(3)/[facility] RDWSD 41.7 36.0 - 45.0 [facility] RDWCV 13.2 11.4 - 13.8 % [facility] MPV 10.5 7.6 - 12.9 [facility] nRBC % Auto 0.0 % [facility] nRBC Abs Auto 0.000 0.000 - 0.000 x10(3)/[facility] Blood specimen (specimen) 11/18/2017 8:33 PM EDT 11/18/2017 8:52 PM EDT Narrative Resulting Agency Comment Spec In Lab Reagan Andrea MD HEMATOLOGY ORDERABLE S [facility] [place] [address] * (ABNORMAL) APTT (11/18/2017 8:33 PM EDT) PTT 105(Criti john) 25 - 37 sec [facility] Comment: Called by: [facility], Read back by: Kira Clemons, Date/Time:11/18/17 [...] MD HEMATOLOGY ORDERABLE S Performing Organization Address [facility] Co de Phone Number [facility] [place] [address] * Prothrombin Time (11/18/2017 8:33 PM EDT) PT 11.2 9.4 - 12.5 sec [facility] INR 1.0 [facility] Comment: An INR <2.0 indicates [...] MD HEMATOLOGY ORDERABLE S Performing Organization Address [facility] Co de Phone Number [facility] [place] [address] * pro-Brain Natriuretic Peptide (11/18/2017 8:33 PM EDT) ProBNP 431 <=450 pg/mL [facility] Blood specimen (specimen) 11/18/2017 8:33 PM EDT 11/18/2017 8:52 PM EDT Narrative Resulting Agency Comment Spec In Lab Reagan Andrea MD CHEMISTRY ORDERABLES Performing Organization Address [facility]/ZIP Co de Phone Number [facility] [place] [address] * Hepatic Function Panel (11/18/2017 8:33 PM EDT) Total Protein 7.1 6.1 - 8.0 gm/dL [facility] Albumin 4.3 3.2 - 5.2 gm/dL [facility] AST 30 0 - 39 unit/L [facility] ALT 23 0 - 55 unit/L [facility] Alk Phos 88 40 - 120 unit/L [facility] Total Bilirubin 0.5 0.2 - 1.3 mg/dL [facility] Bili, Direct 0.1 0.0 - 0.3 mg/dL [facility] Blood specimen (specimen) 11/18/2017 8:33 PM EDT 11/18/2017 8:52 PM EDT Narrative Resulting Agency Comment Spec In Lab Reagan Andrea MD CHEMISTRY ORDERABLES [facility] [place] [address] * (ABNORMAL) Cardiac Enzymes (LEB/CGP) (11/18/2017 8:33 PM EDT) Troponin-T 0.09(H) 0.00 - 0.00 ng/mL [facility] Comment: The 99th percentile for Troponin T is less than 0.01 ng/mL, any detectable cTnT concentration using this assay should be considered elevated. According to the third universal definition of myocardial infarction the following criteria with a clinical presentation consistent with acute myocardial ischemia meets the diagnosis for a myocardial infarction (ME). Detection of a rise and/or fall of cTnT, with at least one value greater than the 99th percentile (> or = 0.01) and with at least one of the following ?? Symptoms of ischemia ?? New or presumed new significant UF-cwahcja-A wave (ST-T) changes or new left bundle [...] additional sample may be indicated. Reference: Third [place] Definition of Myocardial Infarction. Journal of the [place] [employer] 2012;60:1581-98 CK, Total 119 0 - 200 unit/L [facility] Blood specimen (specimen) 11/18/2017 8:33 PM EDT 11/18/2017 8:52 PM EDT Narrative Resulting Agency Comment Spec In Lab Reagan Andrea MD CHEMISTRY ORDERABLES [facility] [place] [address] * (ABNORMAL) Basic Metabolic Panel (non-fasting) (11/18/2017 8:33 PM EDT) Glucose Lvl 92 65 - 199 mg/dL [facility] Comment:Diabetes: >=200 mg/d L plus symptoms BUN 27(H) 10 - 20 mg/dL [facility] Creatinine 1.46 0.80 - 1.50 mg/dL [facility] Sodium 141 135 - 145 mmol/L [facility] Potassium 3.9 3.5 - 5.0 mmol/L [facility] Comment: Please note: ??Patients with WBC >100,000 may have falsely elevated Potassium levels. ??For accurate Potassium quantification in these patients send serum separator tube (gold top) for subsequent determinations. ??Contact the Clinical Chemistry Laboratory if there are any questions. Chloride 101 98 - 107 mmol/L [facility] CO2 25 22 - 31 mmol/L [facility] Anion Gap 15 5 - 15 mmol/L [facility] Calcium 9.2 8.5 - 10.5 mg/dL [facility] Estimated GFR 47(L) >=60 [facility] Comment: The reported eGFR should be multiplied by 1.2 for patients. The MDRD is not an appropriate measure of renal function for patients with body mass extremes or in patients with acute kidney failure. http://[employer]/DHnkdep http://[employer]/DHMCnkf Blood specimen (specimen) 11/18/2017 8:33 PM EDT 11/18/2017 8:52 PM EDT Narrative Resulting Agency Comment Spec In Lab Reagan Andrea MD CHEMISTRY ORDERABLES [facility] [place] [place] [address] * EKG 12 Lead (11/18/2017 8:26 PM EDT) Ventricular rate 55 BPM MUSE SYSTEM Atrial Rate 55 BPM MUSE SYSTEM P-R Interval 216 ms MUSE SYSTEM QRS Duration 88 ms MUSE SYSTEM Q-T Interval 438 ms MUSE SYSTEM QTC Calculated (Bezet) 419 ms MUSE SYSTEM Calculated P [place] 36 degrees MUSE SYSTEM Calculated T [place] 42 degrees MUSE SYSTEM INTERPRETATION Sinus bradycardia with 1st degree A-V block Otherwise normal ECG No previous ECGs available Confirmed by MD ENCISO ALAN ([id number]) on 11/19/2017 10:16:03 AM MUSE SYSTEM 11/18/2017 8:26 PM EDT 11/19/2017 10:16 AM EDT Reagan Andrea MD ECG ORDERABLES MUSE SYSTEM documented in this encounter Visit Diagnoses Not on filedocumented in this encounter Admitting Diagnoses Diagnosis NSTEMI [...] Given 11/18/2017 11:36 PM EDT 100 mg fentaNYL 50 mcg/mL multi-dose injection ONCE PRN, Starting on Fri11/19/17 at 0906, Until Fri11/19/17 at 1026, Intra-Operative (Intra-Procedure), Routine Given 11/19/2017 9:50 AM EDT 25 mcg Given 11/19/2017 9:29 AM EDT 25 mcg Given 11/19/2017 9:06 AM EDT 25 mcg heparin (porcine) injection ONCE PRN, Starting on Fri11/19/17 at 0923, Until Fri11/19/17 at 1026, Cath (Intra-Procedure), Routine Given 11/19/2017 9:46 AM EDT 3,000 Units Given 11/19/2017 9:23 AM EDT 5,000 Units iohexol (OMNIPAQUE) 350 mg/mL solution ONCE PRN, Starting on Fri11/19/17 at 1024, Until Fri11/19/17 at 1026, Cath (Intra-Procedure), Routine Given 11/19/2017 10:24 AM EDT 105 mLs lidocaine (XYLOCAINE) 10 mg/mL (1 %) injection [...] Given 11/19/2017 8:18 AM EDT 12.5 mg midazolam (PF) (VERSED) 1 mg/mL multi-dose injection ONCE PRN, Starting on Fri11/19/17 at 0905, Until Fri11/19/17 at 1026, Cath (Intra-Procedure), Routine Given 11/19/2017 9:29 AM EDT 1 mg Given 11/19/2017 9:05 AM EDT 1 mg nitroGLYcerin 100 mcg/mL intracoronary dilution ONCE PRN, Starting on Fri11/19/17 at 0916, Until Fri11/19/17 at 1026, Cath (Intra-Procedure), Routine Given 11/19/2017 10:00 AM EDT 200 mcg Given 11/19/2017 9:16 AM EDT 150 mcg sodium chloride 0.9 % flush 5 mL [...] 11:36 PM EDT 100 mL/hr 100 mL/hr temazepam (RESTORIL) capsule 15 mg 15 mg, Oral, NIGHTLY, First dose on Fri11/18/17 at 2315, Until Discontinued, Routine Given 11/19/2017 8:14 PM EDT 15 mg Given 11/18/2017 11:36 PM EDT 15 mg verapamil (ISOPTIN) injection ONCE PRN, Starting on Fri11/19/17 at 0916, Until Fri11/19/17 at 1026, Administer over 2 Minutes, Cath (Intra-Procedure) Given 11/19/2017 9:16 AM EDT 2.5 mg documented in this encounter Active and [...] Provider: Admin Adt)1653 (Given - Provider: Kong Brennan, MANAN) buPROPion (WELLBUTRIN SR or ZYBAN) SR tablet [...] - Reason: Transfer to a Procedural area)1254 ([facility] Unhold - Provider: Admin Adt)2012 (Given - Provider: Kong Brennan, MANAN) 0801 (Given - Provider: Mathew Stringer RN) clopidogrel (PLAVIX) tablet 75 mg 75 mg, Oral, DAILY, First dose on Fri11/19/17 at 0900, Until Discontinued, Routine 0818 (Given - Provider: Mathew Stringer RN)1016 ([facility] Hold - Provider: Admin Adt - Reason: Transfer to a Procedural area)1254 ([facility] Unhold - Provider: Admin Adt) 0802 (Given - Provider: Mathew Stringer RN) losartan (COZAAR) tablet 100 mg 100 mg, Oral, DAILY, First dose on Fri11/19/17 at 0900, Until Discontinued, Hold if BP < 100, Routine 0819 (Given - Provider: Mathew Stringer RN)1016 ([facility] Hold - Provider: Admin Adt - Reason: Transfer to a Procedural area)1254 ([facility] Unhold - Provider: Admin Adt) 0802 (Given - Provider: Mathew Stringer RN) melatonin [...] 90, Routine 0818 (Given - Provider: Mathew Stringer, RN)1016 ([facility] Hold - Provider: Admin Adt - Reason: Transfer to a Procedural area)1254 ([facility] Unhold - Provider: Admin Adt)2013 (Given - Provider: Kong Brennan, MANAN) 0801 (Given - Provider: Mathew Stringer, MANAN) sodium chloride 0.9 % flush 5 mL 5 mL, Intravenous, EVERY 12 HOURS, First dose on Fri11/18/17 at 2045, Until Discontinued, Routine 2044 (Given - Provider: Zeinab Freris RN) 0845 (Given - Provider: Mathew Stringer, MANAN)1016 ([facility] Hold - Provider: Admin Adt - Reason: Transfer to a Procedural area)1254 ([facility] Unhold - Provider: Admin Adt)2014 (Given - Provider: Kong Brennan RN) 0845 (Given - Provider: Mathew Stringer RN) sodium chloride 0.9 % flush 5 mL 5 mL, Intravenous, 2 TIMES DAILY, First dose on Fri11/18/17 at 2315, Until Discontinued, Routine 2315 (Not Given - Provider: Zeinab Ferris RN - Reason: Contraindicated) 0900 (Given - Provider: Mathew Stringer RN)1016 ([facility] Hold - Provider: Admin Adt - Reason: Transfer to a Procedural area)1254 ([facility] Unhold - Provider: Admin Adt)2100 (Not Given - Provider: Kong Brennan RN [...] Reason: Contraindicated) 1115 (Given - Provider: Mathew Stringer, MANAN)2315 (Given - Provider: Zoila Ritchie RN) temazepam (RESTORIL) capsule 15 mg 15 mg, Oral, NIGHTLY, First dose on Fri11/18/17 at 2315, Until Discontinued, Routine 2336 (Given - Provider: Zeinab Ferris RN) 1016 ([facility] Hold - Provider: Admin Adt - Reason: Transfer to a Procedural area)1254 ([facility] Unhold - Provider: Admin Adt)2013 (Given - Provider: Kong Brennan RN) Continuous Medication Order 11/18/2017 11/19/2017 11/20/2017 heparin [...] - Reason: Transfer to a Procedural area)1254 ([facility] Unhold - Provider: Admin Adt) sodium chloride 0.9% infusion 100 mL/hr, Intravenous, CONTINUOUS, Starting on Fri11/18/17 at 2315, Until Nilda 11/20/17 at 1304, Cath (Day of Procedure) 2336 (New Bag - Provider: Zeinab Ferris RN) sodium chloride 0.9% infusion () 100 mL/hr, Intravenous, CONTINUOUS, Starting on Fri11/19/17 at 1100, Until Fri11/19/17 at 1559, Recovery (Recovery-Hospital Unit) 1100 (New Bag - Provider: Lisa Amos RN)1554 (Stopped - Provider: Kong Brennan RN) PRN Medication Order 11/18/2017 11/19/2017 11/20/2017 docusate [...] (Intra-Procedure), Routine 0923 (Given - Provider: Beronica Bloom, MANAN)0946 (Given - Provider: Lisa Johnson, MANAN) iohexol [...] for discomfort with PIV insertion, Routine 1016 ([facility] Hold - Provider: Admin Adt - Reason: Transfer to a Procedural area)1254 ([facility] Unhold - Provider: Admin Adt) lidocaine (XYLOCAINE) 10 mg/mL (1 %) injection 3 mg 3 mg (0.3 mL), Subcutaneous, ONCE PRN, 1 dose, Starting on Fri11/18/17 at 2257, Until Nilda 11/20/17 at 1304, for discomfort with PIV insertion, Routine 1016 ([facility] Hold - Provider: Admin Adt - Reason: Transfer to a Procedural area)1254 ([facility] Unhold - Provider: Admin [...] Until Fri11/19/17 at 1026, Cath (Intra-Procedure), Routine 0905 (Given - Provider: Luz Zuniga RN)0929 (Given - Provider: Beronica Bloom RN) nitroGLYcerin [...] last 24 to 72 hours., Routine 1016 ([facility] Hold - Provider: Admin Adt - Reason: Transfer to a Procedural area)1254 ([facility] Unhold - Provider: Admin Adt) nitroGLYcerin 100 mcg/mL intracoronary dilution (CANCELED) ONCE PRN, Starting on Fri11/19/17 at 0916, Until Fri11/19/17 at 1026, Cath (Intra-Procedure), Routine 0916 (Given - Provider: Ernesto Camarena MD)1000 (Given - Provider: Ernesto Camarena MD) sodium chloride 0.9 % flush 5-20 mL 5-20 mL, Intravenous, EVERY 1 MIN PRN, Starting on Fri11/18/17 at 2018, Until Nilda 11/20/17 at 1304, flush, Flush pertains to all indwelling lines. Flush per protocol found in the job aid using the link provided on this medication record., Routine 1016 ([facility] Hold - Provider: Admin Adt - Reason: Transfer to a Procedural area)1254 ([facility] Unhold - Provider: Admin Adt) sodium chloride 0.9 % flush 5-20 mL 5-20 mL, Intravenous, EVERY 1 MIN PRN, Starting on Fri11/18/17 at 2257, Until Nilda 11/20/17 at 1304, flush, Flush pertains to all indwelling lines. Flush per protocol found in the job aid using the link provided on this medication record., Routine 1016 ([facility] Hold - Provider: Admin Adt - Reason: Transfer to a Procedural area)1254 ([facility] Unhold - Provider: Admin [...] 1026, Administer over 2 Minutes, Cath (Intra-Procedure) 09 (Given - Provider: Ernesto Camarena MD) Linked Groups Order Group 1: heparin (porcine) injection 0-4,000 Units (CANCELED) 0-4,000 Units, Intravenous, BOLUS PER HEPARIN PROTOCOL, Starting on Fri11/18/17 at 2020, Until Fri11/20/17 at 0755, Per Protocol, START ADJUSTMENT SCHEDULE [...] UA) documented in this encounter Care Teams Usability Specialist Relationship Specialty Start Date End Date Karo Otero MD [address] [place] [address] PCP - General Family Medicine 02/11/17 03/19/23 documented as of this encounter
--- OUTSIDE RECORDS SUMMARY | 2024-03-10 10:54 | XMS_ITS | Encounter Summary ---
[place] [address] Care Team Providers Care Teleservices Representative Name Role Phone Karo Otero MD Primary Care Provider [phone] Reason for Visit * Reason Comments Follow-up Encounter Details Date Type Department Care Team (Late st Contact Info) Description 03/06/2017 2:45 PM EDT Office Visit Dermatology at [address] [phone] Mathew Fernando MD [address] [facility] [place] [address] History of SCC (squamous cell carcinoma) of skin Social History Tobacco Use Types Packs/Day Years Used Date Smoking Tobacco: Former Sex and Gender Information Value Date Recorded Sex Assigned at Not on file Gender Identity Not on file Sexual Orientation Not on file documented as of this encounter Progress Notes * Mathew Fernando MD - 03/06/2017 2:45 PM EDT PROBLEM: Followup imiquimod check. Erwin follows up today because he is having excessive reaction. 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 Physical examination shows crusting and scabbing of this 2 x 3 cm area. 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 a. Discontinue for 1 week, then resume only twice weekly applications, applying a very thin layer of the imiquimod cream. b. I have asked him then to call us in 2 weeks from now (after being back on it for 1 week) with his progress. c. Would recommend trying to go for 8 weeks, then discontinuing and then following up in another 6 months to see me again. Cc: Krao Otero MD documented in this encounter Plan of Treatment Upcoming Encounters Date Type Department Care Team (Late st Contact Info) Description 04/05/2024 3:00 PM EDT Office Visit Cardiology at [address] [phone] Joel Link MD [facility] [place] [address] 01/18/2025 10:15 AM EDT Office Visit Dermatology at [address] [phone] Mathew Fernando MD [address] [place] [address] [place] [address] documented as of this encounter Visit Diagnoses Diagnosis History of SCC (squamous cell carcinoma) of skin Personal history of other malignant neoplasm of skin documented in this encounter Care Teams Teleservices Representative Relationship Specialty Start Date End Date Karo Otero MD [address] [place] [address] PCP - General Family Medicine 02/11/17 03/19/23 documented as of this encounter
--- OUTSIDE RECORDS SUMMARY | 2024-03-10 10:54 | XMS_ITS | Encounter Summary ---
[place] [address] Care Team Providers Care Big Data Software Engineer Name Role Phone Karo Otero MD Primary Care Provider [phone] Reason for Visit * Reason Comments Skin Check Encounter Details Date Type Department Care Team (Late st Contact Info) Description 02/11/2017 8:30 AM EDT Office Visit Dermatology at [address] [place] [address] Mathew Fernando MD [address] [facility] [address] History of basal cell carcinoma; AK (actinic keratosis) Social History Tobacco Use Types Packs/Day Years Used Date Smoking Tobacco: Former Sex and Gender Information Value Date Recorded Sex Assigned at Not on file Gender Identity Not on file Sexual Orientation Not on file documented as of this encounter Progress Notes * Mathew Fernando MD - 02/11/2017 8:30 AM EDT PROBLEM: Skin checkup. Tra, jacques Hood as he goes by, is a 76-year-old gentleman who is originally from [place], [place] and his is from [place], [place]. They lived in [place] for a number of years, but now have moved back up to [place] and reside in [place]. He states that while living in [place] he was seen on a q.[address] Dukes, a manager support services who saw him on a q.6 month basis and treated 10 years ago 2 basal cell skin cancers on his right upper back. He would like to continue having his regular skin checkups. PHYSICAL EXAMINATION: Reveals a pleasant 76-year-old gentleman who has 2 well healed apparent C and D scars on the right upper back. He has numerous solar lentigos and ephelides of the chest, and back, and arms. He has an erythematous patch on his left cheek concerning for superficial BCCA versus superficial SCCA. He has actinics present on his right scientologist and forehead and left cheek, a total of 3 are noted. Fortunately, careful examination of the head and the neck, the chest, the back, hands, arms, forearms, thighs and calves are otherwise benign ASSESSMENT AND PLAN: 1. Actinic keratoses. a. LN2 x2 applied to each of 3 sites. 2. 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 a. Prescription given for Imiquimod 5% cream apply to left cheek site on an at bedtime basis Mondays, Wednesdays and Fridays for 8 weeks then discontinue. Dispensed 3 grams 12 packets with 1 refill. This was called in to his [facility] in [place], [place]. b. Recommend I see him again in 6 months for a repeat check. If doing well at that point we will then plan once yearly visits. The patient is in agreement. Encouraged that he continue to follow sun avoidance precautions. CC: Karo Otero MD documented in this encounter Plan of Treatment Upcoming Encounters Date Type Department Care Team (Late st Contact Info) Description 04/05/2024 3:00 PM EDT Office Visit Cardiology at [address] [phone] Joel Link MD [facility] [place] [address] 01/18/2025 10:15 AM EDT Office Visit Dermatology at [address] [phone] Mathew Fernando MD [address] [place] [address] DERMATOLOGY [place], [place] [id number] documented as of this encounter Visit Diagnoses Diagnosis History of basal cell carcinoma Personal history of other malignant neoplasm of skin AK (actinic keratosis) Actinic keratosis documented in this encounter Care Teams Big Data Software Engineer Relationship Specialty Start Date End Date Karo Otero MD [address] [place] [address] PCP - General Family Medicine 02/11/17 03/19/23 documented as of this encounter
--- OUTSIDE RECORDS SUMMARY | 2024-03-10 10:54 | XMS_ITS | Encounter Summary ---
[place] [address] Care Team Providers Care Fabric Machine Operator Name Role Phone Karo Otero MD Primary Care Provider [phone] Reason for Visit * Reason Comments Follow-up Encounter Details Date Type Department Care Team (Late st Contact Info) Description 08/14/2017 8:45 AM EST Office Visit Dermatology at [address] [phone] Mathew Fernando MD [address] [facility] [place] [address] History of SCC (squamous cell carcinoma) of skin; History of basal cell carcinoma Social History Tobacco Use Types Packs/Day Years Used Date Smoking Tobacco: Former Sex and Gender Information Value Date Recorded Sex Assigned at Not on file Gender Identity Not on file Sexual Orientation Not on file documented as of this encounter Progress Notes * Mathew Fernando MD - 08/14/2017 8:45 AM EST PROBLEM: 1. Followup imiquimod cream therapy February through April 2017. 2. History of 2 BCCAs of right upper back treated by a [place] medication care manager about 2006. Erwin follows up after 2 months of imiquimod cream therapy to his medial left cheek for probable Morales's versus superficial BCCA. He had a vigorous initial reaction to thrice weekly applications, but then twice weekly application went well and he was able to continue for a total of 2 months. The patient was previously seen by a Dr. Dukes on a q. 6-month basis for skin checkups. Physical examination reveals a pleasant 76-year-old gentleman who has no residual erythema, no crusting/scabbing, no irritation at the treatment site. The rest of the facial examination reveals moderate solar damage, but without actinic keratoses, basal carcinomas, or other lesions of concern. Dorsal hands are also benign. A/P: Benign skin examination in a patient with history of nonmelanoma cutaneous malignancies. a. No evidence of recurrence. b. The patient reassured. c. Congratulated on good response to imiquimod cream. d. Recommend that I see him again in another year for a repeat check, sooner for new lesions/concerns. Cc: Karo Otero MD documented in this encounter Plan of Treatment Upcoming Encounters Date Type Department Care Team (Late st Contact Info) Description 04/05/2024 3:00 PM EDT Office Visit Cardiology at [address] [phone] Joel Link MD [facility] [place] [address] 01/18/2025 10:15 AM EDT Office Visit Dermatology at [address] [phone] Mathew Fernando MD [address] [place] [address] [place] [address] documented as of this encounter Visit Diagnoses Diagnosis History of SCC (squamous cell carcinoma) of skin Personal history of other malignant neoplasm of skin History of basal cell carcinoma Personal history of other malignant neoplasm of skin documented in this encounter Care Teams Fabric Machine Operator Relationship Specialty Start Date End Date Karo Otero MD [address] [place] [address] PCP - General Family Medicine 02/11/17 03/19/23 documented as of this encounter
--- OUTSIDE RECORDS SUMMARY | 2024-03-10 10:54 | XMS_ITS | Referral Summary ---
Author Organization [facility] Address [address] [place] [address] Care Team Providers Care Remote Sensing Surveyor Name Role Phone Blanco Myles MD Primary Care Provider [phone] Encounters Date Type Department Care Team Description 02/27/2024 13:45 EDT Office Visit [facility] - [address] [address] Anjum Miranda MD 02/09/2024 Lab Requisition [facility] [address] [address] Outr Resulting Lab, Provider 12/26/2023 13:45 EDT Office Visit [address] [address] Anjum Miranda MD from Last 3 Months Allergies Active Allergy Reactions Criticality Noted Date [...] 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) 04/07/2023 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 04/07/2023 Stented coronary artery 09/29/2019 Coronary artery disease without angina pectoris 09/29/2019 Combined forms of age-related cataract of both e yes 09/09/2019 Overview: Added automatically from request for surgery [id number] Acute blood loss anemia 01/13/2018 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 01/07/2018 HTN (hypertension) Social History Tobacco Use Types Packs/Day Years [...] 15:02 EST Sexual Orientation Not on file Last Filed [...] Body Mass Index 28.49 10/08/2019 1150 EST Functional Status Functional Status Response Date of [...] (5 years old or older) No 01/07/2018 Plan of Treatment Upcoming Encounters Date Type Department Care Team (Late st Contact Info) Description 04/30/2024 13:00 EDT Office Visit [facility] - [address] [address] Anjum Miranda MD [address] [place] [address], [address] [place] [phone] Medical Devices Implanted Type Area Broomcorn Press Feeder Device Identifier Shelf Expiration Date Model / Serial / Lot Lens Intraocular Monfocl Ant Bicnvx Opt Foldable +21.0d Wave[employer] [id number] - [id number] - [id number] Implanted:Qty: 1 on 09/29/2019 by Mu Acosta MD at [facility] Lens Left: Eye [employer] [id number] 04/17/2024 [id number] .[id number] / [id number] / Lens Intraocular Monfocl Ant Bicnvx Opt Foldable +20.5d [employer] [id number] - [id number] - [id number] Implanted:Qty: 1 on 10/14/2019 by Mu Acosta MD at [facility] Lens Right: Eye [employer] [id number] 03/17/2024 [id number] .[id number] / [id number] / Procedures Procedure Name Priority Date/Time [...] OS - LEFT EYE (02/27/2024 14:57 EDT) [facility] POINT OF CARE - 02/27/2024 15:03 EDT Time Out 02/27/2024. 14:57. Confirmed correct patient, procedure, site, and patient consented. Anesthesia Topical anesthesia was used. Anesthetic medications included Proparacaine 0.5%, Tetracaine 0.5%. Procedure Preparation included 5% betadine to ocular surface, eyelid speculum. A 30 gauge needle was used. Injection: 8 mg aflibercept 8 mg/0.07 mL ??Route: intravitreal, Site: Left Eye ??[facility]: 87758-833-25, Lot: [id number], Expiration date: 12/15/2024 Post-op Post injection exam found visual acuity of at least counting fingers. The patient tolerated the procedure well. There were no complications. The patient received written and verbal post procedure care education. Post injection medications were not given. Anjum Miranda MD OPHTH CLINIC PROCEDU RES Performing Organization Address [facility] Co de Phone Number [facility] POINT OF CARE * OCT, RETINA - OU - BOTH EYES (02/27/2024 14:44 EDT) Narrative [facility] OPHTHALMOLOGY - 02/27/2024 15:03 EDT Right Eye Progression has been stable. Findings include normal foveal contour. Left Eye Quality was good. Progression has been stable. Findings include intraretinal fluid, pigment epithelial detachment. Notes Drusen, no fluid right eye intraretinal fluid over SRfibrosis left eye Anjum Miranda MD OPHTH TOMOGRAPHY Performing Organization Address [facility] Co de Phone Number [facility] OPHTHALMOLOGY * CCP ANTIBODIES (02/09/2024 11:10 EDT) CCP Antibodies <2.5 <5.0 U/mL 02/10/2024 8:39 EDT [facility] Blood VENOUS BLOOD / Unknown 02/09/2024 11:10 EDT 02/09/2024 22:14 EDT Provider Outr Resulting Lab IMMUNOLOGY A ND SEROLOGY ORDERABLES Performing Organization Address [facility] Co de Phone Number [facility] [address] [place] [address] * (ABNORMAL) RHEUMATOID FACTOR (02/09/2024 11:10 EDT) Pathologist [facility] Rheumatoid Factor 17.0(H) <12.0 IU/mL 02/09/2024 22:34 EDT [facility] Blood VENOUS BLOOD / Unknown 02/09/2024 11:10 EDT 02/09/2024 22:14 EDT Provider Outr Resulting Lab CHEMISTRY & BLOOD GAS ORDERABLES Performing Organization Address City/[facility]/ZIP Co de Phone Number [facility] [address] [place] [address] * ANTI NUCLEAR AB (ANDRÉS), IFA (02/09/2024 11:10 EDT) Pathologist [facility] ANDRÉS Interpretation Negative Negative 2023 12:17 EDT [facility] Comment:No titer performed, ANDRÉS Screen is negative. Blood VENOUS BLOOD / Unknown 02/09/2024 11:10 EDT 02/09/2024 22:14 EDT Narrative [facility] - 02/10/2024 12:17 EDT Results were obtained with the [employer] Lite HEp-2 ANDRÉS Kit by indirect immunofluorescence. Provider Outr Resulting Lab IMMUNOLOGY A ND SEROLOGY ORDERABLES Performing Organization Address City/[facility]/ZIP Co de Phone Number [facility] [address] [place] [address] * INTRAVITREAL INJECTION, PHARMACOLOGIC AGENT - OS - LEFT EYE (12/26/2023 14:53 EDT) Narrative [facility] POINT OF CARE - 12/26/2023 15:22 EDT Time Out 12/26/2023. 14:36. Confirmed correct patient, procedure, site, and patient consented. Anesthesia Topical anesthesia was used. Anesthetic medications included Proparacaine 0.5%, Tetracaine 0.5%. Procedure Preparation included 5% betadine to ocular surface, eyelid speculum. A 30 gauge needle was used. Injection: 2 mg aflibercept 2 mg/0.05 mL ??Route: intravitreal, Site: Left Eye ??[facility]: 46393-619-65, Lot: [id number], Expiration date: 10/16/2024 Post-op Post injection exam found visual acuity of at least counting fingers. The patient tolerated the procedure well. There were no complications. The patient received written and verbal post procedure care education. Post injection medications were not given. Anjum Miranda MD OPHTH CLINIC PROCEDU RES Performing Organization Address [facility] Co de Phone Number [facility] POINT OF CARE * OCT, RETINA - OU - BOTH EYES (12/26/2023 14:47 EDT) Narrative [facility] OPHTHALMOLOGY - 12/26/2023 15:23 EDT Right Eye Progression has been stable. Left Eye Quality was good. Progression has worsened. Findings include intraretinal fluid, pigment epithelial detachment, subretinal fluid. Notes Drusen, no fluid right eye Resolution of subretinal fluid, increase in intraretinal fluid over SRfibrosis left eye Anjum Miranda MD OPHTH TOMOGRAPHY Performing Organization Address [facility] de Phone Number [facility] OPHTHALMOLOGY from Last 3 Months Advance Directives For more information, please contact: [phone] * Full Code (Latest Code Status on File) Date Activated Date Inactivated Comments 10/14/2019 11:52 10/14/2019 17:09 Question Answer Comments Reason for decision includes: Other (Please spec destiene) Specify other: not discussed Who participated in [...] participated in the discussion? Patient Care Teams Remote Sensing Surveyor Relationship Specialty Start Date End Date Blanco Myles MD [address] [place] [address] PCP - General Emergency Medicine 04/07/23
--- OUTSIDE RECORDS SUMMARY | 2024-03-10 10:54 | XMS_ITS | Encounter Summary ---
[place] [address] Care Team Providers Care Dry Cleaning Teacher Name Role Phone Karo Otero MD Primary Care Provider [phone] Reason for Visit * Reason Comments Establish Care Had SD and stent in november. [place] cardiac [place] [facility] Encounter Details Date Type Department Care Team (Late st Contact Info) Description 12/30/2017 8:20 AM EDT Office Visit Cardiology at [address] [phone] Sukh Mishra Jr., MD [address] [place] [phone] Hyperlipidemia, unspecified hyperlipidemia type; Non-ST elevation myocardial infarction (NSTEMI); Essential hypertension; Bradycardia Social History Tobacco Use Types Packs/Day Years [...] Sign Reading Time Taken Comments Blood Pressure 130/80 12/30/2017 8:24 AM EDT Pulse 52 12/30/2017 8:24 AM EDT Temperature - - Respiratory Rate - - Oxygen Saturation - - Inhaled Oxygen Concentration - - Weight 96.6 kg (213 lb) 12/30/2017 8:24 AM EDT Height 177.8 cm (5' 10) 12/30/2017 8:24 AM EDT Body Mass Index 30.56 12/30/2017 8:24 AM EDT documented in this encounter Progress Notes * Sukh Mishra Jr., MD - 12/30/2017 8:20 AM EDT Subjective: Patient ID: Tra Brothers III is a 77 y.o. male. Chief Complaint Patient presents with ??? Follow-up Had SD and stent in november. Doing cardiac rehab in [facility] He has had rare fleeting chest pain lasting seconds. He has had none of the pain he had leadingup to his heart attack. His energy level is fair. He denies palpitations, dyspnea, dizziness or edema. Review of Systems occasional muscle aches, would like to take something for it, otherwise negative except as above Allergies Allergen Reactions ??? Oxycodone Nausea Only [...] as needed. Before dental visits 0 ??? clopidogrel (PLAVIX) 75 mg Tablet Take 1 tablet by mouth daily. 90 tablet 3 ??? nitroGLYcerin (NITROSTAT) 0.4 mg Tablet, Sublingual Place 1 tablet under the tongue every 5 minutes as needed for Chest pain. 25 tablet 3 ??? atorvastatin (LIPITOR) 80 mg Tablet Take 1 tablet by mouth every evening. 90 tablet 3 ??? metoprolol succinate (TOPROL-XL) 25 mg Tablet Sustained Release 24 hr Take 1 tablet by mouth daily. 30 tablet 12 ??? aspirin 81 mg Tablet, Delayed Release (E.C.) Take 81 mg by mouth daily. ??? buPROPion (WELLBUTRIN SR OR ZYBAN) 150 mg Tablet Sustained Release 12 hr take 1 tablet by mouthtwice a day 0 ??? losartan-hydrochlorothiazide (HYZAAR) 100-25 mg Tablet Take 1 tablet by mouth daily. 0 ??? temazepam (RESTORIL) [...] AK (actinic keratosis) Objective: Physical Exam BP 130/80 (BP Location (NBP): Left arm, Patient Position: Sitting) Pulse 52 Ht 177.8 cm (5' 10) Wt 96.6 kg (213 lb) BMI 30.56 kg/m2 NAD No JVD/HJR Chest clear Cor RR, no murmur Abd benign Ext no edema EKG: SB 52, NM 248, no ST/T change Assessment and Plan: Fatigue and bradycardia- not tolerating this dose of beta latesha- cut back to 12.5 mg BP controlled- monitor in rehab Lipids- check on current meds and diet May use occasional naproxen 200 mg Follow up 6 weeks documented in this encounter Plan of Treatment Upcoming Encounters Date Type Department Care Team (Late st Contact Info) Description 04/05/2024 3:00 PM EDT Office Visit Cardiology at [address] [address] Joel Link MD [facility] [place] [address] 01/18/2025 10:15 AM EDT Office Visit Dermatology at [address] [phone] Mathew Fernando MD [address] [place] [address] [place] [address] documented as of this encounter Procedures Procedure Name Priority Date/Time Associated Diagnosis Comments ECG SCAN 01/02/2018 12:00 AM EDT EXTERNAL LIPID LAB RESULTS PANEL Routine 12/30/2017 documented in this encounter Results * SCAN DOC: ECG (01/02/2018 12:00 AM EDT) Narrative 01/02/2018 12:00 AM EDT Ordered by an unspecified provider. Scanning Provider MEDIA MGR SCAN EXT O RDR/RSLT * Lipid External Results (12/30/2017) Chol, Total 132 HDL 53 LDL Cholesterol 69 Triglycerides 51 Historical Provider POINT OF CARE JOEY T ORDERABLES documented in this encounter Visit Diagnoses Diagnosis Hyperlipidemia, unspecified hyperlipidemia type Non-ST elevation myocardial infarction (NSTEMI) Acute myocardial infarction, subendocardial infarction, episode of care unspecified Essential hypertension Unspecified essential hypertension Bradycardia Other specified cardiac dysrhythmias documented in this encounter Care Teams Dry Cleaning Teacher Relationship Specialty Start Date End Date Karo Otero MD [address] [place] [address] PCP - General Family Medicine 02/11/17 03/19/23 documented as of this encounter
--- OUTSIDE RECORDS SUMMARY | 2024-03-10 10:54 | XMS_ITS | Encounter Summary ---
Author Organization [facility] [place] [address] Care Team Providers Care Billing And Accounting Staff Assistant Name Role Phone Karo Otero MD Primary Care Provider [phone] Encounter Details Date Type Department Care Team (Late st Contact Info) Description 02/11/2017 Refill Dermatology at [address] [phone] Shana Lowe, MARIA ELENA Social History Tobacco Use Types Packs/Day Years Used Date Smoking Tobacco: Former Sex and Gender Information Value Date Recorded Sex Assigned at Not on file Gender Identity Not on file Sexual Orientation Not on file documented as of this encounter Plan of Treatment Upcoming Encounters Date Type Department Care Team (Late st Contact Info) Description 04/05/2024 3:00 PM EDT Office Visit Cardiology at [address] [phone] Joel Link MD [place] [address] 01/18/2025 10:15 AM EDT Office Visit Dermatology at [address] [phone] Mathew Fernando MD [address] [place] [address] [place] [address] documented as of this encounter Visit Diagnoses Not on filedocumented in this encounter Care Teams Billing And Accounting Staff Assistant Relationship Specialty Start Date End Date Karo Otero MD [address] [place] [address] PCP - General Family Medicine 02/11/17 03/19/23 documented as of this encounter
--- OUTSIDE RECORDS SUMMARY | 2024-03-10 10:55 | XMS_ITS | Encounter Summary ---
Author Organization [facility] Address [address] [place] [address] Care Team Providers Care Bath Tester Name Role Phone Karo Otero MD Primary Care Provider [phone] Reason for Visit * Reason Comments Post-OP Follow Up Encounter Details Date Type Department Care Team (Late st Contact Info) Description 10/15/2019 9:15 EST Post-op Visit [facility] Ophthalmology - [address] [phone] Mu Acosta MD [address] [facility], [address] [place] [address] Bilateral pseudophakia (Primary Dx); Amblyopia, left Social History Tobacco Use Types Packs/Day Years Used Date Smoking Tobacco: Former Cigarettes 0.5 15 0 08/1984 - 08/1999 Smokeless Tobacco: Never Alcohol Use Standard Drinks/Week Comments No 0 (1 standard drink = 0.6 oz pur e alcohol) quit 1979 - Sex and Gender Information Value Date Recorded [...] as of this encounter Progress Notes * Mu Acosta MD - 10/15/2019 0915 EST Chief Complaint Patient presents with ??? Post-OP Follow Up HPI The patient is a 78 y.o. male 1 day s/p uncomplicated CE/PCIOL right eye. Complains of nausea with no headache or vomiting. States that left eye vision is worse than right, but this has been so sincechildhood Allergies include: Percocet [oxycodone-acetaminophen] Patient Active Problem List Diagnosis ??? 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 HTN (hypertension) ??? Acute blood loss anemia ??? Combined forms of age-related cataract of both eyes ??? Stented coronary artery ??? Coronary artery disease without angina pectoris Outpatient Medications Marked as Taking for the 10/15/19 encounter (Post-op Visit) with Mu Acosta MD Medication Sig ??? acebutoloL (SECTRAL) 200 mg capsule Take 200 mg by mouth 2 times daily. ??? acetaminophen (TYLENOL) 500 mg tablet Take 2 Tabs by mouth every 6 hours as needed for Pain. ??? aspirin 81 mg EC tablet Take 81 mg by mouth daily. ??? buPROPion (WELLBUTRIN SR) 150 mg SR tablet Take 150 mg by mouth 2 times daily. ??? cyanocobalamin (VITAMIN B-12) 500 mcg tablet Take 500 mcg by mouth daily. ??? docosahexanoic acid/epa (FISH OIL ORAL) Take by mouth daily. ??? IRBESARTAN-HYDROCHLOROTHIAZIDE ORAL Take by mouth. ??? ketOROLAC (ACULAR) 0.5 % ophthalmic solution Place 1 Drop into the right eye 4 times daily. Start three days prior to surgery, and continue until gone ??? moxifloxacin (VIGAMOX) 0.5 % ophthalmic solution Place 1 Drop into the right eye 4 times daily.Start three days prior to surgery, and continue until gone ??? Multivitamins with Minerals tablet tablet Take 1 Tab by mouth daily. ??? nitroGLYCERIN (NITROSTAT) 0.[address] 0.4 mg under the tongue every 5 minutes as needed for Chest Pain. ??? polyethylene glycol 3350 (MIRALAX) 17 gram packet Take 17 g by mouth daily. ??? pravastatin (PRAVACHOL) 20 mg tablet Take 20 mg by mouth at bedtime. ??? prednisoLONE (PRED FORTE) 1 % ophthalmic suspension Place 1 Drop into the right eye 4 times daily. Start after surgery ??? temazepam (RESTORIL) 15 mg capsule Take 15 mg by mouth at bedtime as needed for Sleep. Past Medical History: Diagnosis Date ??? Anemia s/p 2019 femur fx repair - 2units PRB ??? 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 CAD (coronary artery disease) ??? Cancer (HCC-CMS) skin cancer ??? Cataract ??? Depression controlled with med ??? Exercise involving exercise classes pool exercise- 2 hrs week, cardiac rehab 2x week ??? History of general anesthesia ??? HTN (hypertension) 09/22/19 - controlled with med ??? Hyperlipidemia 09/22/19 - controlled with med ??? Other states following surgery of eye and adnexa ??? Post PTCA 2 stents 2018 ??? S/P PTCA (percutaneous transluminal coronary angioplasty) 11/2017 Past Surgical History: Procedure Laterality Date ??? CATARACT REMOVAL ??? CATARACT REMOVAL WITH IMPLANT ??? CORONARY ANGIOPLASTY WITH STENT PLACEMENT 2019 2 stents ??? FEMUR FRACTURE SURGERY 2019 ORIF right periprosthetic fx above his revision TKR [place]- no problems ??? HAMMER TOE SURGERY 2004 [place]- no problems ??? INTRAOCULAR LENS PROSTHESIS INSERTION Left 09/29/2019 Dr. Acosta ??? MOHS SURGERY local ??? HI XCAPSL CTRC RMVL INSJ IO LENS PROSTH W/O ECP Left 09/29/2019 Cataract Extraction w/IOL Implant, LEFT EYE performed by Mu Acosta MD at [facility] OR ??? REVISION TOTAL KNEE ARTHROPLASTY 2018 s/p irrigation,debridement and 2 -stage revision [place] - no problems ??? RHINOPLASTY 1991 [place] - no problems ??? TONSILLECTOMY 1944 [place] - no problems ??? TOTAL KNEE ARTHROPLASTY Right 2008, 2011 in [place] s/p I&D - antibiotics then 2 nd TKR 2011- [place] no problems Family History Problem Relation Age of Onset ??? Throat cancer Mother Patient reports that he quit smoking about 20 years ago. He has a 7.50 pack-year smoking history. He has never used smokeless tobacco. He reports that he does not drink alcohol or use drugs. Recent HbA1c: Lab Results Component Value Date HGBA1C 5.4 01/08/2018 Base Eye Exam Visual Acuity (Snellen - Linear) Right Left Dist sc 20/40 20/50 Dist ph sc 20/25 -1 20/30 Tonometry (Applanation, 9:00) Right Left Pressure 16 12 Pupils Dark Shape React Right 6 Round dilated Left 4 Round Dilation Both eyes: Phenylephrine 2.5%, Tropicamide 1% @ 10:01 Slit Lamp and Fundus Exam Slit Lamp Exam Right Left Conjunctiva/Sclera White and quiet Cornea 1+ Edema Anterior Chamber 2+ Cell Iris Round and reactive Lens Posterior chamber intraocular lens Refraction Wearing Rx Sphere Cylinder [place] Add Right -0.50 +0.50 155 150/3.00 Left [place] +0.50 018 150/300 Manifest Refraction Sphere Cylinder [place] Dist [place] Right Left -1.00 +0.75 165 20/40 DIAGNOSTIC TESTS: IMPRESSION & PLAN: Tra was seen today for post-op follow up. Diagnoses and all orders for this visit: Bilateral pseudophakia 1 day s/p uncomplicated CE/PCIOL right eye, doing well. Pred forte, Acular, quinolone in operative eye QID. Keep eye covered, apply shield when sleeping. Follow up immediately should eye pain or decrease in vision develop. Follow up in 1 week for AR and DFE right. Written instructions given. Amblyopia, left: Stable, and likely cause of subjective vision difference in addition or residual refractive error I have reviewed the patient's past medical, family, social and surgical history. I have also reviewed the patient's medications, allergies, and problem list. I performed my own HPI and have reviewed the tech's ROS as well. I personally completed this exam myself. Mu Acosta MD I am scribing for Dr. Mu Acosta, while he is personally performing the service. Mu Acosta MD The patient was instructed to call our office or go to emergency room if worse vision, worse symptoms, or new/other concerns arise. documented in this encounter Plan of Treatment Upcoming Encounters Date Type Department Care Team (Late st Contact Info) Description 04/30/2024 13:00 EDT Office Visit [facility] Ophthalmology - [facility] [address] [place], [place] [phone] Anjum Miranda MD [address] [facility], [address] [place] [address] documented as of this encounter Visit Diagnoses Diagnosis Bilateral pseudophakia- Primary Lens replaced by other means Amblyopia, left documented in this encounter Eye Exam Visual Acuity (Snellen - Linear) Right eye Left eye Dist sc 20/40 20/50 Dist ph sc 20/25 -1 20/30 Tonometry (Applanation, 9:00) Right eye Left eye Pressure 16 12 Pupils Dark Shape React Right eye 6 Round dilated Left eye 4 Round Dilation Both eyes: Phenylephrine 2.5 %, Tropicamide 1% @ 10:01 Slit Lamp Exam Right eye Left eye Conjunctiva/Sclera White and quiet Cornea 1+ Edema Anterior Chamber 2+ Cell Iris Round and reactive Lens Posterior chamber intraocular le ns Wearing Rx Sphere Cylinder [place] Add Right eye -0.50 +0.50 155 150/3.00 Left eye [place] +0.50 018 150/300 Manifest Refraction Sphere Cylinder [place] Dist [place] Right eye Left eye -1.00 +0.75 165 20/40 Care Teams Bath Tester Relationship Specialty Start Date End Date Karo Otero MD [address] [place] [phone] PCP - General 01/07/18 04/06/23 documented as of this encounter
--- OUTSIDE RECORDS SUMMARY | 2024-03-10 10:55 | XMS_ITS | Encounter Summary ---
Author Organization [facility] Address [address] [place] [address] Care Team Providers Care Resident Care Coordinator Name Role Phone Blanco Myles MD Primary Care Provider [phone] Reason for Visit * Reason Onset Date Comments Appointment Related 05/12/2023 Encounter Details Date Type Department Care Team (Late st Contact Info) Description 05/12/2023 Telephone [place] [facility] - [facility] [address] [place], [place] [phone] Anjum Miranda MD [address] [facility], [address] [place] [address] Appointment Related Social History Tobacco Use Types Packs/Day Years [...] No 01/07/2018 documented as of this encounter Miscellaneous Notes * Telephone Encounter - Mariluz Jonas - 05/12/2023 1157 EDT Called and spoke with pt he has been rescheduled * Telephone Encounter - Sera Garcia - 05/12/2023 1107 EDT Tra needs to change his appointment with Dr. Miranda. He has a procedure scheduled on the and needs to postpone the visit with Dr. Miranda. Please call him to discuss. Sera Garcia 05/12/2023 11:08 documented in this encounter Plan of Treatment Upcoming Encounters Date Type Department Care Team (Late st Contact Info) Description 04/30/2024 13:00 EDT Office Visit [place] [facility] - [facility] [address] [place], [place] [phone] Anjum Miranda MD [address] [facility], [address] [place] [address] documented as of this encounter Visit Diagnoses Not on filedocumented in this encounter Care Teams Resident Care Coordinator Relationship Specialty Start Date End Date Blanco Myles MD [address] [facility] [address] [place] [address] PCP - General Emergency Medicine 8/21/23 documented as of this encounter
--- OUTSIDE RECORDS SUMMARY | 2024-03-10 10:55 | XMS_ITS | Encounter Summary ---
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-related cataract of both eyes [H25.813] Procedures SC XCAPSL CTRC RMVL INSJ IO LENS PROSTH W/O ECP Cataract Extraction w/IOL Implant, RIGHT EYE Referral ID Status Reason Start Date Expiration Date Visits Re quested Visits Authorized [id number] 1 1 Encounter Details Date Type Department Care Team (Late st Contact Info) Description 10/14/2019 14:16 EST Anesthesia Event [facility] Operating Room [address] [place] [address] Swapnil Lechuga MD [address] [address] Miriam Mullen CRNA [address] [address] Anesthesia Record Procedure Summary Procedure Name Responsible Anesthesiologist Anesthesia Start Time Anesthesia Stop Time Cataract Extraction w/IOL Implant, RIGHT EYE (Right: Eye) Swapnil Lechuga MD 10/14/19 1416 10/14/19 1444 Events Date Time Event Comment 10/14/2019 1416 An Start The patient was re-evaluated immediately before moderate or deep sedation use, before anesthesia induction, or before the anesthesia procedure. 1416 An Start Data 1423 Anesthesia Ready 1440 an stop data 1443 Handoff to RN I completed my handoff to the receiving nurse during which we: 1. Identified the patient 2. Identified the responsible provider 3. Reviewed the pertinent medical history 4. Discussed the surgical course 5. Reviewed intra-op anesthesia management and issues during anesthesia 6. Set expectations for post-procedure period 7. Allowed opportunity for questions and acknowledgement of understanding. 1444 An Stop Meds Name Total midazolam (VERSED) injection 1 mg/mL 2 m g lactated ringers (LR) infusion 150 mL * Agents Name O2 N2O Air Aux O2 flow * Blood No blood administrations on file. Lines, Drains, and Airways Type Details Placement Removal Wound 10/14/19; 1427; Inci rashard; Right; Eye 10/14/19 1427 by Terri Dixon RN Peripheral IV 10/14/19; 1219; B Br aun Introcan; Right, Posterior; Hand; Inserted by RN; 1; None; 3.15% Chlorhexidine with IPA; 10/14/19; 1450; Per order; No complications, Catheter intact, Dressing applied 10/14/19 1219 by Ambrose Phipps RN 10/14/19 1450 by Valerie Villagomez RN documented in this encounter Social History Tobacco Use Types Packs/Day Years [...] No 01/07/2018 documented as of this encounter OR Notes * Anesthesia Postprocedure Evaluation - Miriam Mullen APRN - 10/14/2019 1444 EST Patient: Tra Brothers III Last Vitals Vital signs were reviewed with the recovery nurse and are available in the Epic flowsheets. Last Pain Score - Type of Anesthesia - MAC Anesthesia Post Evaluation Post-procedure vitals reviewed and are stable. Level of consciousness: alert and oriented and awake Temperature status: normothermia Respiratory status: airway patent, room air and O2 Sat-appropriate for condition Cardiovascular status: acceptable and appropriate for condition Hydration status: adequate Nausea/Vomiting: none Pain management: adequate Post-Op Assessment: patient tolerated procedure well with no complications and patient satisfied with anesthesia care Patient participation: able to participate Disposition: outpatient/home Anesthesia Complications: No apparent anesthesia complications * Anesthesia Preprocedure Evaluation - Swapnil Lechuga MD - 10/14/2019 1408 EST Anesthesia Preprocedure Evaluation Patient Medical History, including Anesthesia History reviewed. Chart and Nursing Notes reviewed, including NPO status and Medication History. Additional ROS/History Findings: Allergies Allergen Reactions ??? Percocet [Oxycodone-Acetaminophen] Nausea And Vomiting Review of Systems Respiratory: Negative. Cardiovascular: Negative. Gastrointestinal: Negative. Past Medical History: Diagnosis Date ??? Anemia [...] eye and adnexa ??? Post PTCA 2 2018 ??? S/P PTCA (percutaneous transluminal coronary angioplasty) 11/2017 Relevant Problems CARDIOVASCULAR (+) Coronary artery disease without angina pectoris (+) HTN (hypertension) (+) Stented coronary artery Physical Exam Airway Mallampati: II Cardiovascular - normal exam Dental - normal exam Pulmonary - normal exam Abdominal Anesthesia Plan ASA 3 Anesthesia Type - MAC Block for post-op pain? No Anesthesia plan and risks discussed. Informed consent obtained from patient. Code status discussed? Yes The preoperative history and physical which was performed within 30 days of this procedure, has been reviewed and the clinically appropriate elements of the physical examination have been repeated. There are no changes to the documented history and physical or, if so, such changes are documented inthis note PAT Note (Notes from 09/14/19 through 10/14/19) No notes of this type exist for this encounter. documented in this encounter Plan of Treatment Upcoming Encounters Date Type Department Care Team (Late st Contact Info) Description 04/30/2024 13:00 EDT Office Visit [facility] Ophthalmology - [address] [id number] Anjum Miranda MD [address] [facility], [address] [place] [address] documented as of this encounter Visit Diagnoses Not on filedocumented in this encounter Administered Medications Inactive Administered Medications - up to 3 most recent administrations Medication Order MAR Action Action Date Dose Rate Site lactated ringers (LR) infusion FA IP EQF CONTINUOUS PRN FOR ONE STEP MEDS, Starting on Nilda 10/14/19 at 1400, Until Nilda 10/14/19 at 1444, Routine, Anesthesia Intraprocedure New Bag 10/14/2019 14:00 EST midazolam (PF) (VERSED) injection intravenous, PRN, Starting on Nilda 10/14/19 at 1420, Until Nilda 10/14/19 at 1444, Routine, Anesthesia Intraprocedure Given 10/14/2019 14:23 EST 0.5 mg Given 10/14/2019 14:20 EST 1.5 mg documented in this encounter Care Teams Fire Extinguisher Installer Relationship Specialty Start Date End Date Karo Otero MD [address] [place] [address] PCP - General 01/07/18 04/06/23 documented as of this encounter
--- OUTSIDE RECORDS SUMMARY | 2024-03-10 10:55 | XMS_ITS | Encounter Summary ---
Author Organization [facility] Address [address] [place] [address] Care Team Providers Care Cement Conveyor Operator Name Role Phone Karo Otero MD Primary Care Provider [phone] Reason for Visit * Reason Comments Eye Exam Follow-up Encounter Details Date Type Department Care Team (Late st Contact Info) Description 11/16/2021 10:00 EDT Office Visit [facility] Ophthalmology - [address] [phone] Mu Acosta MD [address] [facility], [address] [place] [address] Social History Tobacco Use Types [...] Progress Notes * Mu Acosta MD - 11/16/2021 1000 EDT Chief Complaint Patient presents with ??? Eye Exam ??? Follow-up Comments Here for yearly dilated eye exam with history of Amblyopia left eye. S/p bilateral CE in 2019 and yag caps left eye 01/2020. Patient reports the vision in the left eye is blurry at near with trifocalsand the right eye is feeling tired, he notes that since his foot surgery he has been reading a lot and his eyes feel tired. No use of artificial tears. No eye pain, no floaters or flashes HPI The patient is a 80 y.o. male presents for routine eye examination. States he has been reading a lot since foot surgery, and vision becomes blurred shortly after reading, worse in the left eye. Improves after blinking a few times. Denies eye discomfort. Happy with trifocal correction. Recent HbA1c: Lab Results Component Value Date HGBA1C 5.4 01/08/2018 Right Eye: NL, Tired Left Eye: Blurred Vision Visual Aid: Glasses Current Rx Age Location: Both eyes Pain: 0 - No pain Quality: Severity: Duration: Years Timing: Constant Lasts: Continuous Context: here for dilated eye exam Modifying factors: s/p CE both 2019, yag caps left eye 01/2020 Associated Signs & Symptoms: history of amblyopia left eye Attestation: ROS Constitutional: NL ENT/Mouth NL Cardiovascular: High Cholesterol Respiratory: NL Gastrointestinal: NL Genitourinary: NL Musculoskeletal: NL Integumentary: NL Neurologic: NL Psychiatric: NL Endocrine: NL Hematologic: (asa 81 mg daily) Immunologic: Drug Allergy Maple Syrup Maker: Exposures: None Other: Attestation: Allergies include: Percocet [oxycodone-acetaminophen] Patient Active Problem List Diagnosis ??? 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 HTN (hypertension) ??? Acute blood loss anemia ??? Combined forms of age-related cataract of both eyes ??? Stented coronary artery ??? Coronary artery disease without angina pectoris Outpatient Medications Marked as Taking for the 11/16/21 encounter (Office Visit) with Jamila Acosta MD Medication Sig ??? acebutoloL (SECTRAL) [...] OIL ORAL) Take by mouth daily. ??? Multivitamins with Minerals tablet tablet Take 1 Tab by mouth daily. ??? nitroGLYCERIN (NITROSTAT) 0.[address] 0.4 mg under the tongue every 5 minutes as needed for Chest Pain. ??? polyethylene glycol 3350 (MIRALAX) 17 gram packet Take 17 g by mouth daily. ??? pravastatin (PRAVACHOL) 20 mg tablet Take 20 mg by mouth at bedtime. ??? temazepam (RESTORIL) 15 mg capsule Take 15 mg by mouth at bedtime as needed for Sleep. Base Eye Exam Visual Acuity (Snellen - Linear) Right Left Dist cc 20/25 20/40 Dist ph cc NI Near cc J1+-2 J2 Correction: Glasses J1+ with both eyes together with glasses Tonometry (Applanation, 10:37) Right Left Pressure 14 14 Pupils Pupils Dark Light Shape React APD Right PERRL 2.5 2 Round Brisk None Left PERRL 2.5 2 Round Brisk None Visual Oliva Right Left Full Full Extraocular Movement Right Left Full Full Neuro/Psych Oriented x3: Yes Mood/Affect: Normal Dilation Both eyes: Paremyd @ 10:37 Slit Lamp and Fundus Exam Slit Lamp Exam Right Left Lids/Lashes Normal Normal Conjunctiva/Sclera White and quiet White and quiet Cornea Clear Clear Anterior Chamber Deep and quiet Deep and quiet Iris Dilated dilated Lens Posterior chamber intraocular lens, Open posterior capsule Posterior chamber intraocular lens,Open posterior capsule Vitreous Posterior vitreous detachment Posterior vitreous detachment Fundus Exam Right Left Disc Normal Normal C/D Ratio 0.2 0.2 Macula Normal Normal Vessels Normal Normal Refraction Wearing Rx Sphere Cylinder Absaraka Add Right -0.50 +0.50 155 150/3.00 Left Burns +0.50 018 150/300 DIAGNOSTIC TESTS: IMPRESSION & PLAN: Tra was seen today for eye exam and follow-up. Diagnoses and all orders for this visit: Amblyopia, left: Mild, stable PVD (posterior vitreous detachment), bilateral: No evidence of RT/RD. Pt counseled on condition andadvised to follow up should severe flashes or floaters develop. Dry eyes, bilateral: Pt advised to use artifical tears and ointment for symptom relief. Warm compresses TID and eyelid scrubs daily. Bilateral pseudophakia: Stable Follow up in 1-2 years for DFE I have reviewed the patient's past medical, family, social and surgical history. I have also reviewed the patient's medications, allergies, and problem list. I performed my own HPI and have reviewed the tech's ROS as well. I personally completed this exam myself. Mu Acosta MD I am scribing for Dr. Mu Acosta, while he is personally performing the service. ROBBIN Florez The patient was instructed to call our office or go to emergency room if worse vision, worse symptoms, or new/other concerns arise. documented in this encounter Plan of Treatment Upcoming Encounters Date Type Department Care Team (Late st Contact Info) Description 04/30/2024 13:00 EDT Office Visit [facility] Ophthalmology - [facility] [address] [place], [place] [phone] Anjum Miranda MD [address] [facility], [address] [place] [phone] documented as of this encounter Visit Diagnoses Diagnosis Amblyopia, left- Primary PVD (posterior vitreous detachment), bilateral Dry eyes, bilateral Tear film insufficiency, unspecified Bilateral pseudophakia Lens replaced by other means documented in this encounter Eye Exam Visual Acuity (Snellen - Linear) Right eye Left eye Dist cc 20/25 20/40 Dist ph cc NI Near cc J1+-2 J2 Correction: Glasses J1+ with both eyes together with glasses Tonometry (Applanation, 10:37) Right eye Left eye Pressure 14 14 Pupils Pupils Dark Light Shape React APD Right eye PERRL 2.5 2 Round Brisk None Left eye PERRL 2.5 2 Round Brisk None Visual Oliva Right eye Left eye Full Full Extraocular Movement Right eye Left eye Full Full Neuro/Psych Oriented x3: Yes Mood/Affect: Normal Dilation Both eyes: Paremyd @ 10:37 Slit Lamp Exam Right eye Left eye Lids/Lashes Normal Normal Conjunctiva/Sclera White and quiet White and shon et Cornea Clear Clear Anterior Chamber Deep and quiet Deep and quiet Iris Dilated dilated Lens Posterior chamber in traocular lens, Open posterior capsule Posterior chamber intraocular lens, Open posterior capsule Vitreous Posterior vitreous detachment Po sterior vitreous detachment Fundus Exam Right eye Left eye Disc Normal Normal C/D Ratio 0.2 0.2 Macula Normal Normal Vessels Normal Normal Wearing Rx Sphere Cylinder Absaraka Add Right eye -0.50 +0.50 155 150/3.00 Left eye Burns +0.50 018 150/300 Care Teams Cement Conveyor Operator Relationship Specialty Start Date End Date Karo Otero MD [address] [place] [phone] PCP - General 01/07/18 04/06/23 documented as of this encounter
--- OUTSIDE RECORDS SUMMARY | 2024-03-10 10:55 | XMS_ITS | Encounter Summary ---
Author Organization [facility] Address [address] [place] [address] Care Team Providers Care Head Pastry Chef Name Role Phone Karo Otero MD Primary Care Provider [phone] Reason for Visit * Reason Onset Date Comments Eye Problem 12/24/2019 Encounter Details Date Type Department Care Team (Late st Contact Info) Description 12/24/2019 Telephone [facility] - [facility] [address], [place] [phone] Mu Acosta MD [address] [facility], [address] [place] [address] Eye Problem Social History Tobacco Use Types Packs/Day Years [...] No 01/07/2018 Cognitive Status Response Date of [facility] ent Because of a physical, menta l, or emotional condition, do you have serious difficulty concentrating, remembering, or making decisions? (5 years old or older) No 01/07/2018 documented as of this encounter Miscellaneous Notes * Telephone Encounter - Leroy Combs RN - 12/24/[address] Simpson, patient should come in next week or so and see Dr Acosta. Adebayo to call early next week. Leroy Combs RN 12/24/2019 16:36 * Telephone Encounter - Leroy Combs RN - 12/24/2019 1620 EDT Called and spoke to patient. Same thing as when he stated back in November. Can not see close up or far. Things are holding steady. No new symptoms. Left eye only. Surgery back in Sep and left eye first. Does report a floater that crosses his vision. Still doing drops, PFAT's. He is aware we may john on Friday. Leroy Combs RN 12/24/2019 16:22 * Telephone Encounter - Iris Wiggins - 12/24/2019 1613 EDT Pt is calling stating that he has been doing the drops as requested by Dr. Acosta for his left eye and it has not improved at all. This has at the first part of September and he is still unable to see out of it. He I hoping to have a sooner appointment then april documented in this encounter Plan of Treatment Upcoming Encounters Date Type Department Care Team (Late st Contact Info) Description 04/30/2024 13:00 EDT Office Visit [facility] Op[facility] - [place] [address] [place] [address] Anjum Miranda MD [address] [facility], [address] [place] [phone] documented as of this encounter Visit Diagnoses Not on filedocumented in this encounter Care Teams Head Pastry Chef Relationship Specialty Start Date End Date Karo Otero MD [address] [place] [address] PCP - General 01/07/18 04/06/23 documented as of this encounter
--- OUTSIDE RECORDS SUMMARY | 2024-03-10 10:55 | XMS_ITS | Encounter Summary ---
Author Organization [facility] Address [address] [place] [address] Care Team Providers Care Mammography Technologist Name Role Phone Karo Otero MD Primary Care Provider [phone] Reason for Visit * Reason Comments Follow-up Encounter Details Date Type Department Care Team (Late st Contact Info) Description 01/24/2020 9:00 EDT Office Visit [facility] Ophthalmology - [address] [phone] Mu Acosta MD [address] [place] [address], [address] [place] [address] Social History Tobacco Use Types [...] Progress Notes * Mu Acosta MD - 01/24/2020 0900 EDT Yag Capsulotomy - OS - Left Eye Anesthesia Topical anesthesia was used. Anesthesia medications included Alphagan 0.15%. Laser Information The type of laser was yag. Post-op The patient tolerated the procedure well. There were no complications. The patient received writtenand verbal post procedure care education. Notes Procedure note: YAG capsulotomy, left eye Surgeon: Mu Acosta MD Lace Inspector: ROBBIN Florez Complications: None Anesthesia: Topical Patient presented for YAG capsulotomy of the left eye. Risks including inflammation, loss of vision and retinal tear, benefits including improved vision and alternatives such as observation and refraction were discussed with patient, and informed consentwas obtained. One dose of 0.2% brimonidine, 1% tropicamide and 2.5% phenylepherine were instilled in the operative eye, and the patient brought to the laser suite where final verification was performed.Topical proparacaine was instilled, and a Yonis capsulotomy lens was applied using a coupling agent. YAG laser was applied in an inverted U fashion for 69 shots, at 1.2 mJ per shot for a total of 80.42 mJ energy. The patient tolerated the procedure well, and a dose of alphagan was administered. One hour post procedure, the IOP was 10. The patient was discharged home with instructions to take . Follow up in 6 months for DFE documented in this encounter Plan of Treatment Upcoming Encounters Date Type Department Care Team (Late st Contact Info) Description 04/30/2024 13:00 EDT Office Visit [facility] Ophthalmology - Main [address] [address] Anjum Miranda MD [address] [facility], [address] [place] [address] documented as of this encounter Procedures Procedure Name Priority Date/Time Associated Diagnosis Comments YAG CAPSULOTOMY - OS - LEFT EYE Routine 01/24/2020 13:39 EDT Posterior capsular opacification, left documented in this encounter Results * YAG CAPSULOTOMY - OS - LEFT EYE (01/24/2020 13:39 EDT) Narrative [facility] - 01/24/2020 13:39 EDT Anesthesia Topical anesthesia was used. Anesthesia medications included Alphagan 0.15%. Laser Information The type of laser was yag. Post-op The patient tolerated the procedure well. There were no complications. The patient received written and verbal post procedure care education. Notes Procedure note: YAG capsulotomy, left eye Surgeon: Mu Acosta MD Lace Inspector: ROBBIN Florez Complications: None Anesthesia: Topical Patient presented for YAG capsulotomy of the left ??eye. Risks including inflammation, loss of vision and retinal tear, benefits including improved vision and alternatives such as observation and refraction were discussed with patient, and informed consent was obtained. One dose of ??0.2% brimonidine, 1% tropicamide and 2.5% phenylepherine were instilled in the operative eye, and the patient brought to the laser suite where final verification was performed.Topical proparacaine was instilled, and a Yonis capsulotomy lens was applied using a coupling agent. YAG laser was applied in an inverted U fashion for 69 shots, ?? at 1.2 mJ per shot for a total of 80.42 mJ energy. The patient tolerated the procedure well, and a dose of alphagan was administered. One hour post procedure, the IOP was 10. The patient was discharged home with instructions to take . Follow up in 6 months for DFE Mu Acosta MD [facility] documented in this encounter Visit Diagnoses Diagnosis Posterior capsular opacification, left- Primary After-cataract, unspecified documented in this encounter Eye Exam Visual Acuity (Snellen - Linear) Right eye Left eye Dist sc 20/70 -2 Dist ph sc 20/40 -1 Tonometry #1 (Applanation, 9:47) Right eye Left eye Pressure 14 12 Tonometry #2 (Applanation POST YAG, 11:04) Right eye Left eye Pressure 10 Neuro/Psych Oriented x3: Yes Mood/Affect: Normal Dilation Left eye: Tropicamide 1%, Ph enylephrine 2.5% @ 9:47 Care Teams Mammography Technologist Relationship Specialty Start Date End Date Karo Otero MD [address] [place] [phone] PCP - General 01/07/18 04/06/23 documented as of this encounter
--- OUTSIDE RECORDS SUMMARY | 2024-03-10 10:55 | XMS_ITS | Encounter Summary ---
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 [H25.813] Procedures ME XCAPSL CTRC RMVL INSJ IO LENS PROSTH W/O ECP Cataract Extraction w/IOL Implant, RIGHT EYE Referral ID Status Reason Start Date Expiration Date Visits Re quested Visits Authorized [id number] 1 1 Encounter Details Date Type Department Care Team (Late st Contact Info) Description 10/14/2019 13:30 EST - 10/14/2019 14:15 EST Surgery [facility] Operating Room [address], [place] [id number] Mu Acosta MD [address] [facility], [address] [place] [address] Cataract Extraction w/IOL Implant, RIGHT EYE [12447 (CPT??)] Surgery Details Date/Time Status Location OR Service Patient Class Case Class Case Type Trauma Case? 10/14/19 1330 Posted [facility] H - Elective Panel 1 Procedure LRB Anes Op Region Wound Class Comments Cataract Extraction w/IOL Implant, RIGHT EYE Right Monitored Anesthesia Care Eye Class I/ Clean Surgeon Surgeon Role Service Panel Mu Acosta MD Primary Ophthalmology 1 documented in this encounter Social History Tobacco [...] Sign Reading Time Taken Comments Blood Pressure 163/85 10/14/2019 1158 EST Pulse - - Temperature 36.5 ??C (97.7 ??F) 10/14/2019 1210 EST Respiratory Rate 16 10/14/2019 1154 EST Oxygen Saturation 98% 10/14/2019 1154 EST Inhaled Oxygen Concentration - - Weight 95.3 kg (210 lb 1.6 oz) 10/14/[address] Height - - Body Mass Index 28.49 10/08/2019 1150 EST documented in this encounter Functional Status Functional Status Response [...] No 01/07/2018 documented as of this encounter Discharge Instructions * Discharge Instructions* Mu Acosta MD - 10/14/2019 14:42 EST Ophthalmic surgery post operative instructions Mu Acosta MD Activity - Take it easy for the rest of the day - Avoid bending over or straining for the next week - Avoid lifting anything heavier than a gallon of milk for the next week - Keep the plastic shield (and patch, if present) on until your follow up tomorrow Medications - If you have a clear plastic shield over your eye, you may move it to start your prescription eye drops when you get home. - In addition to your post operative eye drops, keep using your other prescribed eye drops. - You may take acetaminophen (Tylenol) for pain if you have not been told to avoid it by your otherdoctors. Follow up - You will have an appointment scheduled for follow up tomorrow. - Call if you have concerns that cannot wait until your follow up. documented in this encounter Medications at Time of Discharge Medication Sig Dispensed Refills Start Date End Date acebutoloL (SECTRAL) 200 mg capsule Take 1 Capsule by mouth 2 times daily. acetaminophen (TYLENOL) 500 mg tablet Take 2 Tabs by mouth every 6 hours as needed for Pain. 01/13/2018 aspirin 81 mg EC tablet Take 1 Tablet by mouth daily. buPROPion (WELLBUTRIN SR) 150 mg SR tablet Take 1 Tablet by mouth 2 times daily. cyanocobalamin (VITAMIN B-12) 500 mcg tablet Take 1 Tablet by mouth daily. docosahexanoic acid/epa (FISH OIL ORAL) Take by mouth daily. IRBESARTAN-HYDROCHLOROT HIAZIDE ORAL Take by mouth. Multivitamins with Minerals tablet tablet Take 1 Tab by mouth daily. 01/14/2018 nitroGLYCERIN (NITROSTAT) 0.[address] 1 Tablet under the tongue every 5 minutes as needed for Chest Pain. polyethylene glycol 3350 (MIRALAX) 17 gram packet Take 17 g by mouth daily. 01/14/2018 pravastatin (PRAVACHOL) 20 mg tablet Take 1 Tablet by mouth at bedtime. temazepam (RESTORIL) 15 mg capsule Take 1 Capsule by mouth at bedtime as needed for Sleep. ketOROLAC (ACULAR) 0.5 % ophthalmic solution Place 1 Drop into the right eye 4 times daily. Start three days prior to surgery, and continue until gone 1 Bottle 1 10/08/2019 03/01/2020 moxifloxacin (VIGAMOX) 0.5 % ophthalmic solution Place 1 Drop into the right eye 4 times daily. Start three days prior to surgery, and continue until gone 1 Bottle 1 10/08/2019 03/01/2020 prednisoLONE (PRED FORTE) 1 % ophthalmic suspension Place 1 Drop into the right eye 4 times daily. Start after surgery 1 Bottle 1 10/08/2019 03/01/2020 documented as of this encounter Discharge Disposition Disposition Code Departure Means Destination Home or Self Care Wheelchair Home documented in this encounter H&P Notes * Mu Acosta MD - 10/14/2019 1353 EST The preoperative history and physical which was performed within 30 days of this procedure has been reviewed and the clinically appropriate elements of the physical examination have been repeated. There are no changes to the documented history and physical or if so such changes are documented below Mu Acosta MD 10/14/2019 13:54 Source Note - RESERVATIONS AND TICKETING AGENT, SCAN 2 - 10/08/2019 14:45 EST documented in this encounter OR Notes * OR Surgeon - Mu Acosta MD - 10/14/2019 1441 EST Preoperative diagnosis: Combined senile cataract, right eye Postoperative diagnosis: Same as above Procedure: Phacoemulsification with intraocular lens implantation, right eye Surgeon: Mu Acosta MD Customer Care Manager: ROBBIN Shah Anesthesia: Local with monitored anesthesia care Complications: None Implant: Jose [employer]rysoft [id number], 20.5 D Surgical procedure: The patient was identified in the preoperative area by Dr. Acosta. Informed consent was verified and the operative site marked. All of the patient???s questions were answered and the patient was transported to the operating room. The patient was placed on the operating table in supine position and a procedural verification was conducted. The operative site was prepped with betadine and draped in the usual fashion. An eyelid speculum was placed between the eyelids, and a paracentesis was made at approximately the 10 oclock po sition, through which preservative free lidocaine followed by a dispersive viscoelastic was injected to deepen the chamber. A 2.75 mm keratome was used to make a triplanar incision at approximately the 7 o???clock position. A capsulotomy was created using a cystotome, and Utratta forceps were used to create a continuous curvilinear capsulorrhexis. Hydrodissection of the nucleus was performed and the nucleus was easily rotated in the capsular bag. Nuclear disassembly was performed using a divideand conquer phacoemulification technique. Residual cortex was removed using irrigation/aspiration. The capsular bag was inspected, observed to be intact, and no vitreous was visible in the anterior chamber. Cohesive visoelastic was used to inflate the capsular bag, and the lens implant injected through the clear corneal incision. Position of the haptics was verified in the capsular bag. Irrigation/aspiration was used to remove cohesive visoelastic from the eye. Incisions were hydrated with BSS and observed to be watertight. The eye was then shielded in the usual fashion, and the patient transported to recovery in good condition. documented in this encounter Plan of Treatment Upcoming Encounters Date Type Department Care Team (Late st Contact Info) Description 04/30/2024 13:00 EDT Office Visit [facility] Ophthalmology - [address] [phone] Anjum Miranda MD [address] [place] [address], [address] [place] [address] documented as of this encounter Procedures Procedure Name Priority Date/Time Associated Diagnosis Comments IMPLANT RECORD - SCANNED 10/25/2019 18:00 EDT EXTRACTION, CATARACT, EXTRACAPSULAR, WITH IOL INSERTION 10/14/2019 14:11 EST Combined forms of age-related cataract of both eyes documented in this encounter Results * IMPLANT RECORD - SCANNED (10/25/2019 18:00 EDT) 10/25/2019 18:0 0 EDT Scan 2 Search Advertising Strategist PROCEDURE/MINOR AUDI GICAL ORDERABLES documented in this encounter Visit Diagnoses Diagnosis Combined forms of age-related cataract of both eyes- Primary Other and combined forms of senile cataract Combined forms of age-related cataract of both eyes Other and combined forms of senile cataract documented in this encounter Admitting Diagnoses Diagnosis Combined forms of age-related cataract of both eyes Other and combined forms of senile cataract documented in this encounter Administered Medications Inactive Administered Medications - up to 3 most recent administrations Medication Order MAR Action Action Date Dose Rate Site balanced salt solution inrrigation solution (BSS PLUS) As needed, Starting on Nilda 10/14/19 at 1428, Until Nilda 10/14/19 at 1431, Routine, Intraprocedure Given 10/14/2019 14:28 EST 200 mL balanced salts (BSS) ophthalmic solution As needed, Starting on Nilda 10/14/19 at 1428, Until Nilda 10/14/19 at 1431, Routine, Intraprocedure Given 10/14/2019 14:28 EST 10 mL chondroitin-sodium hyaluronate (VISCOAT) ophthalmic solution As needed, Starting on Nilda 10/14/19 at 1429, Until Nilda 10/14/19 at 1431, Routine, Intraprocedure Given 10/14/2019 14:29 EST 1 Each cyclopentolate (CYCLOGYL) 2 % ophthalmic solution 1 Drop 1 Drop, right eye, PREOP LINKED EYE MEDS-SEE ADMIN INSTRUCTIONS, 3 doses, First dose on Nilda 10/14/19 at 1345, Last dose on Nilda 10/14/19 at 1355, Routine, Preprocedure Given 10/14/2019 12:17 EST 1 Drop Given 10/14/2019 12:15 EST 1 Drop Given 10/14/2019 12:13 EST 1 Drop ketOROLAC tromethamine (ACULAR LS) 0.4 % ophthalmic solution 1 Drop 1 Drop, right eye, PREOP LINKED EYE MEDS-SEE ADMIN INSTRUCTIONS, 3 doses, First dose on Nilda 10/14/19 at 1345, Last dose on Nilda 10/14/19 at 1355, Routine, Preprocedure Given 10/14/2019 12:14 EST 1 Drop Given 10/14/2019 12:11 EST 1 Drop Given 10/14/2019 12:09 EST 1 Drop lactated ringers (LR) infusion 30 mL/hr, intravenous, CONTINUOUS, Starting on Nilda 10/14/19 at 1345, Until Nilda 10/14/19 at 1709, Routine, Preprocedure New Bag 10/14/2019 12:20 EST 30 mL/hr 30 mL/hr lidocaine (PF) 10 mg/mL (1 %) injection As needed, Starting on Nilda 10/14/19 at 1429, Until Nilda 10/14/19 at 1431, Routine, Intraprocedure Given 10/14/2019 14:29 EST 1 mL moxifloxacin (VIGAMOX) 0.5 % ophthalmic solution 1 Drop 1 Drop, right eye, PREOP LINKED EYE MEDS-SEE ADMIN INSTRUCTIONS, 3 doses, First dose on Nilda 10/14/19 at 1345, Last dose on Nilda 10/14/19 at 1355, Routine, Preprocedure Given 10/14/2019 12:08 EST 1 Drop Given 10/14/2019 12:05 EST 1 Drop Given 10/14/2019 12:03 EST 1 Drop moxifloxacin (VIGAMOX) 0.5 % ophthalmic solution As needed, Starting on Nilda 10/14/19 at 1431, Until Nilda 10/14/19 at 1431, Routine, Intraprocedure Given 10/14/2019 14:31 EST 1 Drop phenylephrine (MYDFRIN) 2.5 % ophthalmic solution 1 Drop 1 Drop, right eye, PREOP LINKED EYE MEDS-SEE ADMIN INSTRUCTIONS, 3 doses, First dose on Nilda 10/14/19 at 1345, Last dose on Nilda 10/14/19 at 1355, Routine, Preprocedure Given 10/14/2019 12:30 EST 1 Drop Given 10/14/2019 12:29 EST 1 Drop Given 10/14/2019 12:27 EST 1 Drop povidone-iodine 5 % ophthalmic solution As needed, Starting on Nilda 10/14/19 at 1429, Until Nilda 10/14/19 at 1431, Routine, Intraprocedure Given 10/14/2019 14:29 EST 10 Drops proparacaine (ALCAINE) 0.5 % ophthalmic solution 1 Drop 1 Drop, right eye, PREOP LINKED EYE MEDS-SEE ADMIN INSTRUCTIONS, 1 dose, First dose on Nilda 10/14/19 at 1345, Routine, Preprocedure Given 10/14/2019 12:00 EST 1 Drop sodium hyaluronate (HEALON) ophthalmic injection As needed, Starting on Nilda 10/14/19 at 1430, Until Nilda 10/14/19 at 1431, Routine, Intraprocedure Given 10/14/2019 14:30 EST 5 mg timolol (TIMOPTIC) 0.5 % ophthalmic solution As needed, Starting on Nilda 10/14/19 at 1430, Until Nilda 10/14/19 at 1431, Routine, Intraprocedure Given 10/14/2019 14:30 EST 1 Drop tropicamide (MYDRIACYL) 1 % ophthalmic solution 1 Drop 1 Drop, right eye, PREOP LINKED EYE MEDS-SEE ADMIN INSTRUCTIONS, 3 doses, First dose on Nilda 10/14/19 at 1345, Last dose on Nilda 10/14/19 at 1355, Routine, Preprocedure Given 10/14/2019 12:24 EST 1 Drop Given 10/14/2019 12:22 EST 1 Drop Given 10/14/2019 12:20 EST 1 Drop documented in this encounter Active and Recently Administered Medications Times are shown in EST. Scheduled Medication Order 10/12/2019 10/13/2019 10/14/2019 cyclopentolate (CYCLOGYL) 2 % ophthalmic solution 1 Drop (COMPLETED) 1 Drop, right eye, PREOP LINKED EYE MEDS-SEE ADMIN INSTRUCTIONS, 3 doses, First dose on Nilda 10/14/19 at 1345, Last dose on Nilda 10/14/19 at 1355, Routine, Preprocedure 1213 (Given - Provid er: Ambrose Phipps RN)1215 (Given - Provider: Ambrose Phipps RN)1217 (Given - Provider: Ambrose Phipps RN)1345 (Due)1350 (Due)1355 (Due) ketOROLAC tromethamine (ACULAR LS) 0.4 % ophthalmic solution 1 Drop (COMPLETED) 1 Drop, right eye, PREOP LINKED EYE MEDS-SEE ADMIN INSTRUCTIONS, 3 doses, First dose on Nilda 10/14/19 at 1345, Last dose on Nilda 10/14/19 at 1355, Routine, Preprocedure 1209 (Given - Provid er: Ambrose Phipps RN)1211 (Given - Provider: Ambrose Phipps RN)1214 (Given - Provider: Ambrose Phipps RN)1345 (Due)1350 (Due)1355 (Due - Provider: Ambrose Phipps RN) moxifloxacin (VIGAMOX) 0.5 % ophthalmic solution 1 Drop (COMPLETED) 1 Drop, right eye, PREOP LINKED EYE MEDS-SEE ADMIN INSTRUCTIONS, 3 doses, First dose on Nilda 10/14/19 at 1345, Last dose on Nilda 10/14/19 at 1355, Routine, Preprocedure 1203 (Given - Provid er: Ambrose Phipps RN)1205 (Given - Provider: Ambrose Phipps RN)1208 (Given - Provider: Ambrose Phipps RN)1345 (Due)1350 (Due)1355 (Due) phenylephrine (MYDFRIN) 2.5 % ophthalmic solution 1 Drop (COMPLETED) 1 Drop, right eye, PREOP LINKED EYE MEDS-SEE ADMIN INSTRUCTIONS, 3 doses, First dose on Nilda 10/14/19 at 1345, Last dose on Nilda 10/14/19 at 1355, Routine, Preprocedure 1227 (Given - Provid er: Ambrose Phipps RN)1229 (Given - Provider: Ambrose Phipps RN)1230 (Given - Provider: Ambrose Phipps RN)1345 (Due)1350 (Due)1355 (Due) proparacaine (ALCAINE) 0.5 % ophthalmic solution 1 Drop (COMPLETED) 1 Drop, right eye, PREOP LINKED EYE MEDS-SEE ADMIN INSTRUCTIONS, 1 dose, First dose on Nilda 10/14/19 at 1345, Routine, Preprocedure 1200 (Given - Provid er: Ambrose Phipps RN)1345 (Due) tropicamide (MYDRIACYL) 1 % ophthalmic solution 1 Drop (COMPLETED) 1 Drop, right eye, PREOP LINKED EYE MEDS-SEE ADMIN INSTRUCTIONS, 3 doses, First dose on Nilda 10/14/19 at 1345, Last dose on Nilda 10/14/19 at 1355, Routine, Preprocedure 1220 (Given - Provid er: Ambrose Phipps RN)1222 (Given - Provider: Ambrose Phipps RN)1224 (Given - Provider: Ambrose Phipps RN)1345 (Due)1350 (Due)1355 (Due) Continuous Medication Order 10/12/2019 10/13/2019 10/14/2019 lactated ringers (LR) infusion 30 mL/hr, intravenous, CONTINUOUS, Starting on Nilda 10/14/19 at 1345, Until Nilda 10/14/19 at 1709, Routine, Preprocedure 1220 (New Bag - Prov ider: Ambrose Phipps RN)1345 (Canceled Entry - Provider: Batch Job User Admin - Comment: Automatically canceled at discontinue of medication order) PRN Medication Order 10/12/2019 10/13/2019 10/14/2019 balanced salt solution inrrigation solution (BSS PLUS) (CANCELED) As needed, Starting on Nilda 10/14/19 at 1428, Until Nilda 10/14/19 at 1431, Routine, Intraprocedure 1428 (Given - Provid er: Mu Acosta MD - Comment: Part I [id number] Pat II [id number]) balanced salts (BSS) ophthalmic solution (CANCELED) As needed, Starting on Nilda 10/14/19 at 1428, Until Nilda 10/14/19 at 1431, Routine, Intraprocedure 1428 (Given - Provid er: Mu Acosta MD) chondroitin-sodium hyaluronate (VISCOAT) ophthalmic solution (CANCELED) As needed, Starting on Nilda 10/14/19 at 1429, Until Nilda 10/14/19 at 1431, Routine, Intraprocedure 1429 (Given - Provid er: Mu Acosta MD - Comment: #[id number]) lidocaine (PF) 10 mg/mL (1 %) injection (CANCELED) As needed, Starting on Nilda 10/14/19 at 1429, Until Nilda 10/14/19 at 1431, Routine, Intraprocedure 1429 (Given - Provid er: Mu Acosta MD - Comment: #[id number]) moxifloxacin (VIGAMOX) 0.5 % ophthalmic solution (CANCELED) As needed, Starting on Nilda 10/14/19 at 1431, Until Nilda 10/14/19 at 1431, Routine, Intraprocedure 1431 (Given - Provid er: ROBBIN Florez) povidone-iodine 5 % ophthalmic solution (CANCELED) As needed, Starting on Nilda 10/14/19 at 1429, Until Nilda 10/14/19 at 1431, Routine, Intraprocedure 1429 (Given - Provid er: ROBBIN Florez) sodium hyaluronate (HEALON) ophthalmic injection (CANCELED) As needed, Starting on Nilda 10/14/19 at 1430, Until Nilda 10/14/19 at 1431, Routine, Intraprocedure 1430 (Given - Provid er: Mu Acosta MD - Comment: #[id number]) timolol (TIMOPTIC) 0.5 % ophthalmic solution (CANCELED) As needed, Starting on Nilda 10/14/19 at 1430, Until Nilda 10/14/19 at 1431, Routine, Intraprocedure 1430 (Given - Provid er: Mu Acosta MD) documented in this encounter Orders Medications Ordered That Blayne ht Not Have Been Administered Count Last Ordered Date First Ordered Date lidocaine (PF) 10 mg/mL (1 % ) injection 2 mg 1 10/14/2019 Transfer Count Last Ordered Date First Orde red Date NON-TEACHING SERVICE 1 10/14/2019 Discharge Count Last Ordered Date First Orde red Date DISCHARGE PATIENT 1 10/14/2019 documented in this encounter Care Teams Vp & General Counsel Relationship Specialty Start Date End Date Karo Otero MD [address] [place] [id number] PCP - General 01/07/18 04/06/23 documented as of this encounter
--- OUTSIDE RECORDS SUMMARY | 2024-03-10 10:55 | XMS_ITS | Encounter Summary ---
Author Organization [facility] Address [address] [place] [address] Care Team Providers Care Polymerization Oven Operator Name Role Phone Blanco Myles MD Primary Care Provider [phone] Reason for Visit * Reason Comments Follow-up Encounter Details Date Type Department Care Team (Late st Contact Info) Description 10/31/2023 13:00 EDT Office Visit [facility] Ophthalmology - [address] [id number] Anjum Miranda MD 111 [facility], [address] [place] [address] Social History Tobacco Use Types [...] Progress Notes * Anjum Miranda MD - 10/31/2023 1300 EDT Chief Complaint Patient presents with Follow-up HPI Pt here for 8 week f/u for Wet AMD left S/P Avastin left (09-05-23) VA stable both. No floaters or flashes. No pain Base Eye Exam Visual Acuity (Snellen - Linear) Right Left Dist cc 20/20 -2 20/70 -2 Dist ph cc NI Correction: Glasses Tonometry (Applanation, 13:03) Right Left Pressure 12 12 Neuro/Psych Oriented x3: Yes Mood/Affect: Normal Dilation Both eyes: Phenylephrine 2.5%, Tropicamide 1% @ 13:03 Slit Lamp and Fundus Exam Slit Lamp [...] fluid right eye Resolution of subretinal fluid, some increase in intraretinal fluid over SRfibrosis left eye Intravitreal Injection, Pharmacologic Agent - OS - Left Eye Time Out 10/31/2023. 13:57. Confirmed correct patient, procedure, site, and patient consented. Anesthesia Topical anesthesia was used. Anesthetic medications included Proparacaine 0.5%, Tetracaine 0.5%. Procedure Preparation included 5% betadine to ocular surface, eyelid speculum. A 30 gauge needle was used. Injection: 1.25 mg bevacizumab Route: intravitreal, Site: Left Eye [facility]: [address]-60, Lot: [id number], Expiration date: 11/02/2023 Post-op Post injection exam found visual acuity of at least counting fingers. The patient tolerated the procedure well. There were no complications. The patient received written and verbal post procedure care education. Post injection medications were not given. DIAGNOSES: 1. Exudative age-related macular degeneration of left eye with active choroidal neovascularization ([facility]) OCT, RETINA - OU - BOTH EYES INTRAVITREAL INJECTION, PHARMACOLOGIC AGENT - OS - LEFT EYE bevacizumab (AVASTIN) ophthalmic syringe 1.25 mg 2. Intermediate stage nonexudative age-related macular degeneration of right eye OCT, RETINA - OU -BOTH EYES Assessment Wet age related macular Degeneration left eye Anatomic and visual improvement maintained 8 weeks s/p Avastin #5 Minimal increase in fluid 8 vs 7 weeks out. 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 I am scribing for Dr. Anjum Miranda MD while he is personally performing the service. Ga Iraheta (Scribe) documented in this encounter Plan of Treatment Upcoming Encounters Date Type Department Care Team (Late st Contact Info) Description 04/30/2024 13:00 EDT Office Visit [facility] Ophthalmology - [address] [address] Anjum Miranda MD [address] [place] [address], [address] [place] [address] documented as of this encounter Procedures Procedure Name Priority Date/Time Associated Diagnosis Comments OCT, RETINA - OU - BOTH EYES Routine 10/31/2023 14:12 EDT Exudative age-related macular degeneration of 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) Intermediate stage nonexudative age-related macular degeneration of right eye INTRAVITREAL INJECTION, PHARMACOLOGIC AGENT - OS - LEFT EYE Routine 10/31/2023 14:05 EDT Exudative age-related macular degeneration of 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) documented in this encounter Results * OCT, RETINA - OU - BOTH EYES (10/31/2023 14:12 EDT) Narrative [facility] OPHTHALMOLOGY - 10/31/2023 14:12 EDT Right Eye Progression has been stable. Left Eye Quality was good. Progression has worsened. Findings include intraretinal fluid, pigment epithelial detachment, subretinal fluid. Notes Drusen, no fluid right eye Resolution of subretinal fluid, some increase in intraretinal fluid over SRfibrosis left eye Anjum Miranda MD OPHTH TOMOGRAPHY [facility] OPHTHALMOLOGY * INTRAVITREAL INJECTION, PHARMACOLOGIC AGENT - OS - LEFT EYE (10/31/2023 14:05 EDT) Narrative [facility] POINT OF CARE - 10/31/2023 14:13 EDT Time Out 10/31/2023. 13:57. Confirmed correct patient, procedure, site, and patient consented. Anesthesia Topical anesthesia was used. Anesthetic medications included Proparacaine 0.5%, Tetracaine 0.5%. Procedure Preparation included 5% betadine to ocular surface, eyelid speculum. A 30 gauge needle was used. Injection: 1.25 mg bevacizumab ??Route: intravitreal, Site: Left Eye ??[facility]: [address]-19, Lot: [id number], Expiration date: 11/02/2023 Post-op Post injection exam found visual acuity of at least counting fingers. The patient tolerated the procedure well. There were no complications. The patient received written and verbal post procedure care education. Post injection medications were not given. Anjum Miranda MD OPHTH CLINIC PROCEDU RES [facility] POINT OF CARE documented in this encounter Visit Diagnoses Diagnosis Exudative age-related macular degeneration of 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)- Primary Intermediate stage nonexudative age-related macular degeneration of right eye documented in this encounter Administered Medications Inactive Administered Medications - up to 3 most recent administrations Medication Order MAR Action Action Date Dose Rate Site bevacizumab (AVASTIN) ophthalmic syringe 1.25 mg 1.25 mg, Starting on Fri10/31/23 at 1413, Until Fri10/31/23 at 1413, Routine Given 10/31/2023 14:13 EDT 1.25 mg Left Eye documented in this encounter Orders Medications Ordered That Blayne ht Not Have Been Administered Count Last Ordered Date First Ordered Date bevacizumab (AVASTIN) ophtha lmic syringe 1.25 mg 1 10/31/2023 documented in this encounter Eye Exam Visual Acuity (Snellen - Linear) Right eye Left eye Dist cc 20/20 -2 20/70 -2 Dist ph cc NI Correction: Glasses Tonometry (Applanation, 13:03) Right eye Left eye Pressure 12 12 Neuro/Psych Oriented x3: Yes Mood/Affect: Normal Dilation Both eyes: Phenylephrine 2.5 %, Tropicamide 1% @ 13:03 Slit Lamp Exam Right eye Left eye [...] Normal Normal Periphery Attached Attached Care Teams Polymerization Oven Operator Relationship Specialty Start Date End Date Blanco Myles MD [address] [facility] [address] [place] [address] PCP - General Emergency Medicine 04/07/23 documented as of this encounter
--- OUTSIDE RECORDS SUMMARY | 2024-03-10 10:55 | XMS_ITS | Encounter Summary ---
Author Organization [facility] Address [address] [place] [address] Care Team Providers Care Workers Compensation Consultant Name Role Phone Karo Otero MD Primary Care Provider [phone] Reason for Visit * Reason Onset Date Comments Eye Problem 12/13/2019 Encounter Details Date Type Department Care Team (Late st Contact Info) Description 12/13/[address] [facility] Ophthalmology - [facility] [address] [place], [place] [phone] Mu Acosta MD 111 [facility], [address] [place] [address] Eye Problem Social History Tobacco [...] encounter Miscellaneous Notes * Telephone Encounter - Chayo Desai COA - 12/13/2019 1357 EDT Called patient and relayed Dr. Acosta's message to use preservative free artificial tears qhr as needed and ointment at bedtime. Patient will buy the ointment as he does not have any at this time. He will also use warm compresses for 5 min QID. He will call if there is no improvement after doing the above regimen. * Telephone Encounter - Mu Acosta MD - 12/13/2019 1345 EDT Make sure he's using PFAT qhr as needed, and qhs ointment. Also warm compresses 5min QID. * Telephone Encounter - Sera Garcia - 12/13/2019 1015 EDT Patient had cataract surgery in September with Dr. Acosta. Patient's left eye is bothering him. He is using refresh. He has a cloud that goes by in his vision, and then the eye gets teary. The eye is extremely dry all the time and he is using Refresh all thetime. He's using reading glasses. Distance vision in the left eye is not good. documented in this encounter Plan of Treatment Upcoming Encounters Date Type Department Care Team (Late st Contact Info) Description 04/30/2024 13:00 EDT Office Visit [facility] Ophthalmology - [address] [place] [address] Anjum Miranda MD [address] [facility], [address] [place] [phone] documented as of this encounter Visit Diagnoses Not on filedocumented in this encounter Care Teams Workers Compensation Consultant Relationship Specialty Start Date End Date Karo Otero MD [address] [place] [phone] PCP - General 01/07/18 04/06/23 documented as of this encounter
--- OUTSIDE RECORDS SUMMARY | 2024-03-10 10:55 | XMS_ITS | Encounter Summary ---
Author Organization [facility] Address [address] [place] [address] Care Team Providers Care Senior Escrow Officer Name Role Phone Karo Otero MD Primary Care Provider [phone] Encounter Details Date Type Department Care Team (Late st Contact Info) Description 10/13/2019 Prep for Procedure [facility] Ophthalmology - [address] [address] Mu Acosta MD [address] [place] [address], [address] [place] [address] Social History Tobacco Use Types [...] Info) Description 04/30/2024 13:00 EDT Office Visit [facility] Ophthalmology - [address] [address] Anjum Miranda MD 111 [facility], [address] [place] [phone] documented as of this encounter Visit Diagnoses Not on filedocumented in this encounter Care Teams Senior Escrow Officer Relationship Specialty Start Date End Date Karo Otero MD [address] [place] [address] PCP - General 01/07/18 04/06/23 documented as of this encounter
--- OUTSIDE RECORDS SUMMARY | 2024-03-10 10:55 | XMS_ITS | Encounter Summary ---
Author Organization [facility] Address [address] [place] [address] Care Team Providers Care Neon Sign Erector Name Role Phone Karo Otero MD Primary Care Provider [phone] Blanco Myles MD Primary Care Provider [phone] Encounter Details Date Type Department Care Team (Late st Contact Info) Description 07/25/2021 Lab Requisition [facility] Pathology & Laboratory Medicine - [address] [address] Outr Resulting Lab, Provider Social History Tobacco [...] Description 04/30/2024 13:00 EDT Office Visit [facility] Ophthalmology - [facility] [address] [place], [place] [phone] Anjum Miranda MD 111 [facility], [address] [place] [address] documented as of this encounter Procedures Procedure Name Priority Date/Time Associated Diagnosis Comments PSA TOTAL, DIAGNOSTIC Routine 07/25/2021 10:25 EST documented in this encounter Results * PSA TOTAL, DIAGNOSTIC (07/25/2021 10:25 EST) PSA 1.6 0.0 - 6.5 ng/mL 07/25/2021 23:23 EST [facility] Blood VENOUS BLOOD / Unknown 07/25/2021 10:25 EST 07/25/2021 22:16 EST Narrative [facility] - 07/25/2021 23:23 EST NOTE: Serum PSA concentration should not be interpreted as absolute evidence for the presence or absence of malignant disease. Assayed on Siemens ADVIA Centaur XPT using chemiluminescent technology.??Values obtained by using different assay methods cannot be used interchangeably. Provider Outr Resulting Lab CHEMISTRY & BLOOD GAS ORDERABLES [facility] [address] [place] [address] documented in this encounter Visit Diagnoses Not on filedocumented in this encounter Care Teams Neon Sign Erector Relationship Specialty Start Date End Date Karo Otero MD [address] [place] [address] PCP - General 01/07/18 04/06/23 Blanco Myles MD [address] [facility] [address] [place] [address] PCP - General Emergency Medicine 04/07/23 documented as of this encounter
--- OUTSIDE RECORDS SUMMARY | 2024-03-10 10:55 | XMS_ITS | Encounter Summary ---
Author Organization [facility] Address [address] [place] [address] Care Team Providers Care Invasive Physician Name Role Phone Karo Otero MD Primary Care Provider [phone] Reason for Visit * Reason Onset Date Comments Medications Refill 09/13/2019 Encounter Details Date Type Department Care Team (Late st Contact Info) Description 09/13/2019 Telephone [facility] Ophthalmology - [facility] [address] [place], [place] [phone] Mu Acosta MD 111 [facility], [address] [place] [address] Medications Refill Social History Tobacco Use Types Packs/Day Years Used Date Smoking Tobacco: Never Smokeless Tobacco: Never Alcohol Use Standard Drinks/Week [...] No 01/07/2018 documented as of this encounter Ordered Prescriptions Prescription Sig Dispensed Refills Start Date End Da te prednisoLONE (PRED FORTE) 1 % ophthalmic suspension Place 1 Drop into the left eye 4 times daily. Start after surgery 1 Bottle 1 09/15/2019 10/08/2019 ketOROLAC (ACULAR) 0.5 % ophthalmic solution Place 1 Drop into the left eye 4 times daily. Start three days prior to surgery, and continue until gone 1 Bottle 1 09/15/2019 09/21/2019 moxifloxacin (VIGAMOX) 0.5 % ophthalmic solution Place 1 Drop into the left eye 4 times daily. Start three days prior to surgery, and continue until gone 1 Bottle 1 09/15/2019 10/08/2019 documented in this encounter Miscellaneous Notes * Telephone Encounter - Leroy Combs RN - 09/15/2019 0852 EST Called [facility]. They got the orders but will need to order one of them. Called and let patient know. He states he has not received paperwork for his pre-op physical which is on Friday. Stated wouldget a message out to Adebayo. Surgery on 09/29/2019. Leroy Combs RN 09/15/2019 8:55 * Telephone Encounter - Leroy Combs RN - 09/14/2019 0904 EST Called and spoke to pharmacy. They stated patient would have to go to them and change his information to how he would like it seen in pharmacy. Called and spoke to patient. We need to send meds under Tra because that is what is on his insurance. Stated We would need tjme but would be in touch once we send them. Message to Riana Torres. Leroy Combs RN 09/14/2019 9:10 * Telephone Encounter - Leroy Combs RN - 09/13/2019 1443 EST Per A[facility], left eye on 09/29/2019. Meds needs to be ordered under Tra. Meds were sent on 08/06/19. Message out to Riana Brian for assistance. Leroy Combs RN 09/13/2019 14:43 * Telephone Encounter - Adebayo Christine - 09/13/2019 1319 EST Patient needs pre-op cataracts drops re-ordered under [facility] to [facility] documented in this encounter Plan of Treatment Upcoming Encounters Date Type Department Care Team (Late st Contact Info) Description 04/30/2024 13:00 EDT Office Visit [facility] Ophthalmology - [facility] [address] [place] [address] Anjum Miranda MD 111 [facility], [address] [place] [address] documented as of this encounter Visit Diagnoses Not on filedocumented in this encounter Discontinued Medications Medication Sig Discontinue Reason Start Date End Da te moxifloxacin (VIGAMOX) 0.5 % ophthalmic solution Place 1 Drop into the left eye 4 times daily. Start three days prior to surgery, and continue until gone Reorder 08/06/2019 09/14/2019 ketOROLAC (ACULAR) 0.5 % ophthalmic solution Place 1 Drop into the left eye 4 times daily. Start three days prior to surgery, and continue until gone Reorder 08/06/2019 09/14/2019 prednisoLONE (PRED FORTE) 1 % ophthalmic suspension Place 1 Drop into the left eye 4 times daily. Start after surgery Reorder 08/06/2019 09/14/2019 documented as of this encounter Care Teams Invasive Physician Relationship Specialty Start Date End Date Karo Otero MD [address] [place] [address] PCP - General 01/07/18 04/06/23 documented as of this encounter
--- OUTSIDE RECORDS SUMMARY | 2024-03-10 10:55 | XMS_ITS | Encounter Summary ---
Author Organization [facility] Address [address] [place] [address] Care Team Providers Care Instructional Supervisor Name Role Phone Karo Otero MD Primary Care Provider [phone] Reason for Visit * Reason Comments Post-OP Follow Up Encounter Details Date Type Department Care Team (Late st Contact Info) Description 10/22/2019 14:00 EST Post-op Visit [facility] Ophthalmology - [address] [phone] Mu Acosta MD 111 [facility], [address] [place] [address] Bilateral pseudophakia (Primary Dx); Amblyopia, [...] Progress Notes * Mu Acosta MD - 10/22/2019 1400 EST No chief complaint on file. HPI The patient is a 78 y.o. male 1 week s/p uncomplicated phaco right eye. States vision is improved from last visit, and offers no complaints of eye pain. Using medications as directed. Allergies include: Percocet [oxycodone-acetaminophen] Patient Active Problem List Diagnosis ??? 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 HTN (hypertension) ??? Acute blood loss anemia ??? Combined forms of age-related cataract of both eyes ??? Stented coronary artery ??? Coronary artery disease without angina pectoris No outpatient medications have been marked as taking for the 10/22/19 encounter (Post-op Visit) with Mu Acosta MD. Past Medical History: Diagnosis Date ??? Anemia s/p 2019 femur fx repair - 2units PRB ??? 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 CAD (coronary artery disease) ??? Cancer ([facility]) skin cancer ??? Cataract ??? Depression controlled [...] Dr. Acosta ??? MOHS SURGERY local ??? NE XCAPSL CTRC RMVL INSJ IO LENS PROSTH W/O ECP Left 09/29/2019 Cataract Extraction w/IOL Implant, LEFT EYE performed by Mu Acosta MD at [facility] OR ??? REVISION TOTAL KNEE ARTHROPLASTY 2017 s/p irrigation,debridement and 2 -stage revision [place] - no problems ??? RHINOPLASTY 1991 [place] - no problems ??? TONSILLECTOMY 1944 [place] - no problems ??? TOTAL KNEE ARTHROPLASTY Right 2008, 2011 in [place] s/p I&D - antibiotics then 2 nd [...] (Snellen - Linear) Right Left Dist sc 20/25 -1 20/40 -1 Dist ph sc 20/25 -1 Tonometry (Applanation, 13:59) Right Left Pressure 12 Pupils Dark Shape React APD Right 2 Round Minimal None Left 2 Round Minimal None Extraocular Movement Right Left Full, Ortho Full, Ortho Neuro/Psych Oriented x3: Yes Mood/Affect: Normal Dilation Right eye: Phenylephrine 2.5%, Tropicamide 1% @ 13:59 Slit Lamp and Fundus Exam Slit Lamp Exam Right Left Lids/Lashes Normal Conjunctiva/Sclera White and quiet Cornea Clear Anterior Chamber Deep and quiet Iris dilated Lens Posterior chamber intraocular lens Vitreous Normal Fundus Exam Right Left Disc Normal C/D Ratio 0.2 Macula Normal Vessels Normal Periphery Normal Refraction Manifest Refraction (Auto) Sphere Cylinder [place] Right -1.25 +0.50 025 Left -2.00 +0.75 130 IMPRESSION & PLAN: Diagnoses and all orders for this visit: Bilateral pseudophakia 1 week s/p uncomplicated CE/PCIOL right eye. Doing well. Acular and quinolone in operative eye QID until gone, Pred forte taper to TID for 1 week, BID for 1 week, daily for 1 week then stop. Follow up should eye pain or decreased vision develop, otherwise in 6 months for DFE. Written instructions given. Amblyopia, left: Limiting visual potenital Happy with DVA, recommend OTC readers prn. I have reviewed the patient's past medical, [...] Info) Description 04/30/2024 13:00 EDT Office Visit [facility] Ophthalmology - [address] [address] Anjum Miranda MD [address] [facility], [address] [place] [address] documented as of this encounter Visit Diagnoses Diagnosis Bilateral pseudophakia- Primary Lens replaced by other means Amblyopia, left documented in this encounter Eye Exam Visual Acuity (Snellen - Linear) Right eye Left eye Dist sc 20/25 -1 20/40 -1 Dist ph sc 20/25 -1 Tonometry (Applanation, 13:59) Right eye Left eye Pressure 12 Pupils Dark Shape React APD Right eye 2 Round Minimal None Left eye 2 Round Minimal None Extraocular Movement Right eye Left eye Full, Ortho Full, Ortho Neuro/Psych Oriented x3: Yes Mood/Affect: Normal Dilation Right eye: Phenylephrine 2.5 %, Tropicamide 1% @ 13:59 Slit Lamp Exam Right eye Left eye Lids/Lashes Normal Conjunctiva/Sclera White and quiet Cornea Clear Anterior Chamber Deep and quiet Iris dilated Lens Posterior chamber intraocular le ns Vitreous Normal Fundus Exam Right eye Left eye Disc Normal C/D Ratio 0.2 Macula Normal Vessels Normal Periphery Normal Manifest Refraction (Auto) Sphere Cylinder [place] Right eye -1.25 +0.50 025 Left eye -2.00 +0.75 130 Care Teams Instructional Supervisor Relationship Specialty Start Date End Date Karo Otero MD [address] [place] [phone] PCP - General 01/07/18 04/06/23 documented as of this encounter
--- OUTSIDE RECORDS SUMMARY | 2024-03-10 10:55 | XMS_ITS | Encounter Summary ---
Author Organization [facility] Address [address] [place] [address] Care Team Providers Care [employer] Consultant Name Role Phone Karo Otero MD Primary Care Provider [phone] Reason for Visit * Reason Comments Follow-up Encounter Details Date Type Department Care Team (Late st Contact Info) Description 03/01/2020 8:45 EDT [facility] - [address] [phone] Mu Acosta MD [address] [place] [address], [address] [place] [address] Social History Tobacco Use Types [...] Progress Notes * Mu Acosta MD - 03/01/2020 0845 EDT Chief Complaint Patient presents with ??? Follow-up Comments Pt here for glasses rx. Had YAG caps left eye last month with not much improvement in vision. Amblyopia left eye. HPI The patient is a 79 y.o. male presents for refraction s/p YCL OS. Notes vision unchanged. Offers novision related complaints History of left eye amblyopia. Recent HbA1c: Lab Results Component Value Date HGBA1C 5.4 01/08/2018 Right Eye: NL Left Eye: Blurred Vision Visual Aid: Glasses(OTC) Current Rx Age Location: Left eye Pain: 0 - No pain Quality: Severity: Duration: Weeks Timing: Constant Lasts: Continuous Context: s/p YAG caps left eye Modifying factors: not much visual improvement Associated Signs & Symptoms: amblyopia left eye Attestation: ROS Constitutional: NL ENT/Mouth NL Cardiovascular: High Blood Pressure Respiratory: NL Gastrointestinal: NL Genitourinary: NL Musculoskeletal: NL Integumentary: NL Neurologic: NL Psychiatric: NL Endocrine: NL Hematologic: Immunologic: NL Pipe Coverer And Insulator: Exposures: None Other: Attestation: Allergies include: Percocet [oxycodone-acetaminophen] Patient Active Problem List Diagnosis ??? 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 HTN (hypertension) ??? Acute blood loss anemia ??? Combined forms of age-related cataract of both eyes ??? Stented coronary artery ??? Coronary artery disease without angina pectoris Outpatient Medications Marked as Taking for the 03/01/20 encounter (Office Visit) with Mu Acosta MD Medication Sig [...] ??? IRBESARTAN-HYDROCHLOROTHIAZIDE ORAL Take by mouth. ??? Multivitamins with Minerals tablet tablet Take [...] - Linear) Right Left Dist sc 20/25 20/60 -2 Dist ph sc 20/40 Refraction Wearing Rx Sphere Cylinder [place] Add Right -0.50 +0.50 155 150/3.00 Left [place] +0.50 018 150/300 Manifest Refraction Sphere Cylinder [place] Dist VA Add Right -0.25 +0.25 010 20/25+2 +2.50 Left -0.75 +0.25 010 20/40 +2.50 Final Rx Sphere Cylinder [place] Add Right -0.25 +0.25 010 +2.50 Left -0.75 +0.25 010 +2.50 Expiration Date: 03/02/2021 DIAGNOSTIC TESTS: IMPRESSION & PLAN: Tra was seen today for follow-up. 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 I have also reviewed the patient's medications, allergies, and problem list. I performed my own HPI and have reviewed the [facility]'s ROS as well. I personally completed this [...] Info) Description 04/30/2024 13:00 EDT [facility] - Main [place] [address] [place], [place] [phone] Anjum Miranda MD [address] [facility], [address] [place] [phone] documented as of this encounter Visit Diagnoses Diagnosis Amblyopia, left- Primary Bilateral pseudophakia Lens replaced by other means documented in this encounter Discontinued Medications Medication Sig Discontinue Reason Start Date End Da te moxifloxacin (VIGAMOX) 0.5 % ophthalmic solution Place 1 Drop into the right eye 4 times daily. Start three days prior to surgery, and continue until gone Therapy completed 10/08/2019 03/01/2020 ketOROLAC (ACULAR) 0.5 % ophthalmic solution Place 1 Drop into the right eye 4 times daily. Start three days prior to surgery, and continue until gone Therapy completed 10/08/2019 03/01/2020 prednisoLONE (PRED FORTE) 1 % ophthalmic suspension Place 1 Drop into the right eye 4 times daily. Start after surgery Therapy completed 10/08/2019 03/01/2020 documented as of this encounter Eye Exam Visual Acuity (Snellen - Linear) Right eye Left eye Dist sc 20/25 20/60 -2 Dist ph sc 20/40 Wearing Rx Sphere Cylinder [place] Add Right eye -0.50 +0.50 155 150/3.00 Left eye [place] +0.50 018 150/300 Manifest Refraction Sphere Cylinder [place] Dist VA Add Right eye -0.25 +0.25 010 20/25+2 +2.50 Left eye -0.75 +0.25 010 20/40 +2.50 Final Rx Sphere Cylinder [place] Add Right eye -0.25 +0.25 010 +2.50 Left eye -0.75 +0.25 010 +2.50 Expiration Date: 03/02/2021 Care Teams [employer] Consultant Relationship Specialty Start Date End Date Karo Otero MD [address] [place] [address] PCP - General 01/07/18 04/06/23 documented as of this encounter
--- OUTSIDE RECORDS SUMMARY | 2024-03-10 10:55 | XMS_ITS | Encounter Summary ---
Author Organization [facility] Address [address] [place] [address] Care Team Providers Care Methods Analyst Name Role Phone Blanco Myles MD Primary Care Provider [phone] Reason for Visit * Reason Comments Eye Problem Encounter Details Date Type Department Care Team (Late st Contact Info) Description 04/07/2023 13:45 EDT Office Visit [facility] Ophthalmology - [address] [phone] Anjum Guillory MD [address] [facility], [address] [place] [address] Social History Tobacco Use Types [...] of this encounter Progress Notes * Anjum Guillory MD - 04/07/2023 3695 EDT Chief Complaint Patient presents with ??? Eye Problem HPI ERV - patient notes spot in vision left eye since surgery but it is getting bigger, doesn't float but moves up in vision. He has no eye pain. No new flashes or floaters. No history of AMD or diabetes HPI Location: Left eye Pain: 0 - No pain Quality: Blurry Severity: Moderate Duration: Years Timing: Constant Lasts: Continuous Context: ERV - spot in vision left eye getting bigger, doesn't float but moves up in vision. No eyepain. no new flashes or floaters. Modifying factors: no history of AMD or DM Associated Signs & Symptoms: No drops Visual Fluctuations: None Attestation: Base Eye Exam Visual Acuity (Snellen - Linear) Right Left Dist cc 20/30 20/100 Dist ph cc 20/25 NI Correction: Glasses Tonometry (Applanation, 14:04) Right Left Pressure 12 10 Pupils Pupils Dark Shape APD Right PERRL 3 Round None Left PERRL 3 Round None Visual Oliva (Counting fingers) Right Left Full Full Extraocular Movement Right Left Full, Ortho Full, Ortho Neuro/Psych Oriented x3: Yes Mood/Affect: Normal Dilation Both eyes: Tropicamide 1%, Phenylephrine 2.5% @ 14:04 Additional Tests Color Right Left [place] 03/30 unable Slit Lamp and Fundus Exam Slit Lamp Exam Right Left Lids/Lashes Normal Normal Conjunctiva/Sclera White and quiet White and quiet Cornea Clear Clear Anterior Chamber Deep and quiet Deep and quiet Iris Dilated Dilated Lens Posterior chamber intraocular lens Posterior chamber intraocular lens Anterior Vitreous Posterior vitreous detachment Posterior vitreous detachment Fundus Exam Right Left Disc Healthy Healthy C/D Ratio 0.4 0.4 Macula Looks good subretinal fuid/pre-retinal heme Vessels Normal Normal Periphery Retina attached Retina attached Imaging: OCT, Retina - OU - Both Eyes OCT REPORT Indications: Choroidal neovascular membrane left Findings: Right Eye Left Eye Normal PED, SRF and high reflective subretinal substance Original test to be found in patients shadow chart Impression: 1. Choroidal neovascular membrane of left eye OCT, RETINA - OU - BOTH EYES 2. PVD (posterior vitreous detachment), both eyes 3. Nuclear sclerosis of both eyes Plan: Choroidal neovascular membrane left eye Previous retinal scar Active choroidal neovascular membrane with pre-retinal hemorrhage Recommend anti VEGF treatment to prevent further vision loss Risks and benefits discussed No heavy lifting, bending or straining Refer to today for possible intravitreal injection of anti VEGF treatment Patient agrees Posterior vitreous detachment both eyes No holes,tears or breaks Retinas attached Monitor The patient has been informed that they have a chronic posterior vitreous detachment. At this juncture the risk of retinal detachment is reduced but not zero. The patient has been instructed to continue to be alert for worsening of floaters or flashes or loss of peripheral vision. If these symptomsoccur the patient will call us immediately as these symptoms could be consistent with new holes tears or retinal detachment. The patient understands and agrees to do this. Nuclear sclerotic cataract both eyes Not visually significant Non-surgical Monitor Tra Brothers III has a nuclear sclerosis cataract, but the cataract is not severe enough to require surgery at this time. Return if symptoms worsen or fail to improve. I, Dr. Guillory, have performed my own HPI and reviewed the tech's ROS. I have also reviewed the patient's past medical, family, social and surgical history, as well as the patient's medications, allergies, and problem list. I am scribing for Dr. Anjum Guillory MD while he is personally performing the service. ROBBIN Zuluaga (Scribe) documented in this encounter Plan of Treatment Upcoming Encounters Date Type Department Care Team (Late st Contact Info) Description 04/30/2024 13:00 EDT Office Visit [facility] Op[facility]mology - Main [address] [address] Anjum Miranda MD [address] [facility], [address] [place] [address] documented as of this encounter Procedures Procedure Name Priority Date/Time Associated Diagnosis Comments OCT, RETINA - OU - BOTH EYES Routine 04/07/2023 15:01 EDT Choroidal neovascular membrane of left eye documented in this encounter Results * OCT, RETINA - OU - BOTH EYES (04/07/2023 15:01 EDT) Narrative [facility] OPHTHALMOLOGY - 04/07/2023 17:00 EDT Table formatting from the original result was not included. OCT REPORT Indications: ??Choroidal neovascular membrane left Findings: Right Eye Left Eye Normal PED, SRF and high reflective subretinal substance Original test to be found in patients shadow chart Anjum Guillory MD OPHTH TOMOGRAPHY [facility] OPHTHALMOLOGY documented in this encounter Visit Diagnoses Diagnosis Choroidal neovascular membrane of left eye- Primary PVD (posterior vitreous detachment), both eyes Vitreous degeneration Nuclear sclerosis of both eyes documented in this encounter Eye Exam Visual Acuity (Snellen - Linear) Right eye Left eye Dist cc 20/30 20/100 Dist ph cc 20/25 NI Correction: Glasses Tonometry (Applanation, 14:04) Right eye Left eye Pressure 12 10 Pupils Pupils Dark Shape APD Right eye PERRL 3 Round None Left eye PERRL 3 Round None Visual Oliva (Counting fingers) Right eye Left eye Full Full Extraocular Movement Right eye Left eye Full, Ortho Full, Ortho Neuro/Psych Oriented x3: Yes Mood/Affect: Normal Dilation Both eyes: Tropicamide 1%, P henylephrine 2.5% @ 14:04 Color Right eye Left eye Ishihara 03/30 unable Slit Lamp Exam Right eye Left eye Lids/Lashes Normal Normal Conjunctiva/Sclera White and quiet White and shon et Cornea Clear Clear Anterior Chamber Deep and quiet Deep and quiet Iris Dilated Dilated Lens Posterior chamber in traocular lens Posterior chamber intraocular lens Anterior Vitreous Posterior vitreous detachment Posterior vitreous detachment Fundus Exam Right eye Left eye Disc Healthy Healthy C/D Ratio 0.4 0.4 Macula Looks good subretinal fuid/ pre-retinal heme Vessels Normal Normal Periphery Retina attached Retina attached Care Teams Methods Analyst Relationship Specialty Start Date End Date Blanco Myles MD [address] [facility] [address] [place] [address] PCP - General Emergency Medicine 04/07/23 documented as of this encounter
--- OUTSIDE RECORDS SUMMARY | 2024-03-10 10:55 | XMS_ITS | Encounter Summary ---
Author Organization [facility] Address [address] [place] [address] Care Team Providers Care Automobile Washer Steam Name Role Phone Karo Otero MD Primary Care Provider [phone] Encounter Details Date Type Department Care Team (Late st Contact Info) Description 09/27/2019 Prep for Procedure [facility] Ophthalmology - [address] [phone] Mu Acosta MD [address] [facility], [address] [place] [address] Social History Tobacco Use Types [...] Info) Description 04/30/2024 13:00 EDT Office Visit [facility] Ophthalmology - [facility] [address] [place] [address] Anjum Miranda MD [address] [facility], [address] [place] [phone] documented as of this encounter Visit Diagnoses Not on filedocumented in this encounter Care Teams Automobile Washer Steam Relationship Specialty Start Date End Date Karo Otero MD [address] [place] [address] PCP - General 01/07/18 04/06/23 documented as of this encounter
--- OUTSIDE RECORDS SUMMARY | 2024-03-10 10:55 | XMS_ITS | Encounter Summary ---
Author Organization [facility] Address [address] [place] [address] Care Team Providers Care Field Education Director Name Role Phone Blanco Myles MD Primary Care Provider [phone] Reason for Visit * Reason Comments Follow-up Encounter Details Date Type Department Care Team (Late st Contact Info) Description 05/06/2023 13:00 EDT Office Visit [facility] Ophthalmology - [address] [phone] Anjum Miranda MD [address] [facility], [address] [place] [address] Social History Tobacco Use Types [...] Progress Notes * Anjum Miranda MD - 05/06/2023 1300 EDT Chief Complaint Patient presents with ??? Follow-up HPI Pt here for 4 week f/u for Wet AMD left, Dry AMD right S/P Avastin left (04-07-23) VA improving left. VA stable right. No floaters or flashes. No pain Base Eye Exam Visual Acuity (Snellen - Linear) Right Left Dist cc 20/25 20/70 +1 Dist ph cc NI Correction: Glasses Tonometry (Applanation, 12:59) Right Left Pressure 11 10 Neuro/Psych Oriented x3: Yes Mood/Affect: Normal Dilation Both eyes: Phenylephrine 2.5%, Tropicamide 1% @ 12:59 Slit Lamp and Fundus Exam Slit Lamp Exam Right Left Conjunctiva/Sclera White and quiet White and quiet Cornea Clear Clear Anterior Chamber Deep and quiet Deep and quiet Iris Dilated Dilated Lens Posterior chamber intraocular lens Posterior chamber intraocular lens Fundus Exam Right Left Disc healthy healthy C/D Ratio 0.3 0.3 Macula rare large drusen foveal PED surrounded by SRH Vessels Normal Normal OCT, Retina - OU - Both Eyes Right Eye Progression has been stable. Left Eye Quality was good. Progression has improved. Findings include pigment epithelial detachment, subretinal fluid. Notes Drusen, no fluid right eye Decrease in SRHRM as well left eye Intravitreal Injection, Pharmacologic Agent - OS - Left Eye Time Out 05/06/2023. 13:35. Confirmed correct patient, procedure, site, and patient consented. Anesthesia Topical anesthesia was used. Anesthetic medications included Proparacaine 0.5%, Tetracaine 0.5%. Procedure Preparation included 5% betadine to ocular surface, eyelid speculum. A 30 gauge needle was used. Injection: 1.25 mg bevacizumab Route: intravitreal, Site: Left Eye [facility]: [id number], Lot: [id number], Expiration date: 05/07/2023 Post-op Post injection exam found visual acuity of at least counting fingers. The patient tolerated the procedure well. There were no complications. Post injection medications were not given. DIAGNOSES: 1. Exudative age-related macular degeneration of left eye with active choroidal neovascularization (HCC) OCT, RETINA - OU - BOTH EYES INTRAVITREAL INJECTION, PHARMACOLOGIC AGENT - OS - LEFT EYE bevacizumab (AVASTIN) ophthalmic syringe 1.25 mg 2. Intermediate stage nonexudative age-related macular degeneration of right eye Assessment Wet age related macular Degeneration left eye Anatomic and visual improvement 4 weeks s/p Avastin #1 Subretinal heme may lead to scarring and limit visual recovery with treatment Offer Avastin left eye Patient agrees Avastin injection #2 done to left eye today Intermediate Dry Macular Degeneration right eye Rare large drusen Start AREDS 2 vitamins to reduce risk of vision loss from choroidal neovascular membrane Return in about 4 weeks (around 06/03/2023) for OCT. I am scribing for Dr. Anjum Miranda MD while he is personally performing the service. ROBBIN Abrams (Scribe) documented in this encounter Plan of Treatment Upcoming Encounters Date Type Department Care Team (Late st Contact Info) Description 04/30/2024 13:00 EDT Office Visit [facility] Ophthalmology - [address] [address] Anjum Miranda MD [address] [place] [address], [address] [place] [address] documented as of this encounter Procedures Procedure Name Priority Date/Time Associated Diagnosis Comments INTRAVITREAL INJECTION, PHARMACOLOGIC AGENT - OS - LEFT EYE Routine 05/06/2023 13:41 EDT Exudative age-related macular degeneration of left eye with active choroidal neovascularization ([facility]) OCT, RETINA - OU - BOTH EYES Routine 05/06/2023 13:31 EDT Exudative age-related macular degeneration of 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) documented in this encounter Results * INTRAVITREAL INJECTION, PHARMACOLOGIC AGENT - OS - LEFT EYE (05/06/2023 13:41 EDT) Narrative [facility] POINT OF CARE - 05/06/2023 14:35 EDT Time Out 05/06/2023. 13:35. Confirmed correct patient, procedure, site, and patient consented. Anesthesia Topical anesthesia was used. Anesthetic medications included Proparacaine 0.5%, Tetracaine 0.5%. Procedure Preparation included 5% betadine to ocular surface, eyelid speculum. A 30 gauge needle was used. Injection: 1.25 mg bevacizumab ??Route: intravitreal, Site: Left Eye ??[facility]: [id number], Lot: [id number], Expiration date: 05/07/2023 Post-op Post injection exam found visual acuity of at least counting fingers. The patient tolerated the procedure well. There were no complications. Post injection medications were not given. Anjum Miranda MD OPHTH CLINIC PROCEDU RES Performing Organization Address [facility] Co de Phone Number [facility] POINT OF CARE * OCT, RETINA - OU - BOTH EYES (05/06/2023 13:31 EDT) Narrative [facility] OPHTHALMOLOGY - 05/06/2023 14:35 EDT Right Eye Progression has been stable. Left Eye Quality was good. Progression has improved. Findings include pigment epithelial detachment, subretinal fluid. Notes Drusen, no fluid right eye Decrease in SRHRM as well left eye Anjum Miranda MD OPHTH TOMOGRAPHY Performing Organization Address [facility] Co de Phone Number [facility] OPHTHALMOLOGY documented in this encounter Visit [...] syringe 1.25 mg 1.25 mg, Starting on Fri05/06/23 at 1435, Until Fri05/06/23 at 1435, Routine Given 05/06/2023 14:35 EDT 1.25 mg Left Eye documented in this encounter Historical Medications * This list may reflect changes made after this encounter. Medication Sig Dispensed Refills Start Date End Date vit C/E/Zn/coppr/lutein/zeaxan (PRESERVISION AREDS-2 ORAL) Take by mouth. added in this encounter Eye Exam Visual Acuity (Snellen - Linear) Right eye Left eye Dist cc 20/25 20/70 +1 Dist ph cc NI Correction: Glasses Tonometry (Applanation, 12:59) Right eye Left eye Pressure 11 10 Neuro/Psych Oriented x3: Yes Mood/Affect: Normal Dilation Both eyes: Phenylephrine 2.5 %, Tropicamide 1% @ 12:59 Slit Lamp Exam Right eye Left eye Conjunctiva/Sclera White and quiet White and shon et Cornea Clear Clear Anterior Chamber Deep and quiet Deep and quiet Iris Dilated Dilated Lens Posterior chamber in traocular lens Posterior chamber intraocular lens Fundus Exam Right eye Left eye Disc healthy healthy C/D Ratio 0.3 0.3 Macula rare large drusen foveal PED sharon rounded by SRH Vessels Normal Normal Care Teams Field Education Director Relationship Specialty Start Date End Date Blanco Myles MD [address] [facility] [address] [place] [address] PCP - General Emergency Medicine 04/07/23 documented as of this encounter
--- OUTSIDE RECORDS SUMMARY | 2024-03-10 10:55 | XMS_ITS | Encounter Summary ---
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 [H25.813] Procedures [facility] XCAPSL [facility] RMVL INSJ IO LENS PROSTH W/O ECP Cataract Extraction w/IOL Implant, LEFT EYE Referral ID Status Reason Start Date Expiration Date Visits Re quested Visits Authorized [id number] 1 1 Encounter Details Date Type Department Care Team (Late st Contact Info) Description 09/29/2019 10:52 EST - 09/29/2019 15:10 [facility] Hospital Encounter [facility] Operating Room [address] [place] [address] Mu Acosta MD [address] [facility], [address] [place] [address] Discharge Disposition: Home or Self Care Social History Tobacco Use Types Packs/Day Years [...] Sign Reading Time Taken Comments Blood Pressure 123/93 09/29/2019 1500 EST Pulse - - Temperature 36.1 ??C (97 ??F) 09/29/2019 1453 EST Respiratory Rate 18 09/29/2019 1500 EST Oxygen Saturation 98% 09/29/2019 1500 EST Inhaled Oxygen Concentration - - Weight 94.1 kg (207 lb 7.3 oz) 09/29/[address] Height - - Body Mass Index 28.14 09/22/2019 1330 EST documented in this encounter Functional Status [...] * Discharge Instructions* Mu Acosta MD - 09/29/2019 14:52 EST Ophthalmic surgery post operative instructions Mu [...] (FISH OIL ORAL) Take by mouth daily. IRBESARTAN-HYDROCHLOROTH IAZIDE ORAL Take by mouth. Multivitamins with Minerals [...] at bedtime as needed for Sleep. ketOROLAC tromethamine (ACULAR LS) 0.4 % drops Place 1 Drop into the left eye 4 times daily. Start three days prior to surgery, and continue until gone 5 mL 1 09/21/2019 10/08/2019 moxifloxacin (VIGAMOX) 0.5 % ophthalmic solution Place 1 Drop into the left eye 4 times daily. Start three days prior to surgery, and continue until gone 1 Bottle 1 09/15/2019 10/08/2019 prednisoLONE (PRED FORTE) 1 % ophthalmic suspension Place 1 Drop into the left eye 4 times daily. Start after surgery 1 Bottle 1 09/15/2019 10/08/2019 documented as of this encounter Discharge Disposition Disposition Code Departure Means Destination Home or Self Longterm documented in this encounter H&P Notes * Mu Acosta MD - 09/29/2019 1405 EST The preoperative history and physical which was performed within 30 days of this procedure has been reviewed and the clinically appropriate elements of the physical examination have been repeated. There are no changes to the documented history and physical or if so such changes are documented below Mu Acosta MD 09/29/2019 14:05 Source Note - INDUSTRIAL RELATIONS WORKER, SCAN 2 - 09/23/2019 11:20 EST documented in this encounter OR Notes * OR Surgeon - Mu Acosta MD - 09/29/2019 2901 EST Preoperative diagnosis: combined senile cataract, left eye Postoperative diagnosis: Same as above Procedure: Phacoemulsification with intraocular lens implantation, left eye Surgeon: Mu Acosta MD Stone Rubber: ROBBIN Shah Anesthesia: Local with monitored anesthesia care Complications: None Implant: Jose Acrysoft [id number], 21.0 D Surgical procedure: The patient was identified [...] a paracentesis was made at approximately the 4 oclock position, through which preservative free lidocaine followed by a dispersive viscoelastic was injectedto deepen the chamber. A 2.75 mm keratome was used to make a triplanar incision at approximately the 2 o???clock position. A capsulotomy was created using a cystotome, and Utratta forceps were used to create a continuous curvilinear capsulorrhexis. Hydrodissection of the nucleus was performed and the nucleus was easily rotated in the capsular bag. Nuclear disassembly was performed using a divide and conquer phacoemulification technique. Residual cortex was removed [...] Info) Description 04/30/2024 13:00 EDT Office Visit [facility] - [address] [id number] Anjum Miranda MD [address] [facility] [place] [address] documented as of this encounter Procedures Procedure Name Priority Date/Time Associated Diagnosis Comments IMPLANT RECORD - SCANNED 10/05/2019 22:25 EST EXTRACTION, CATARACT, EXTRACAPSULAR, WITH IOL INSERTION 09/29/2019 14:17 EST Combined forms of age-related cataract of both eyes documented in this encounter Results * IMPLANT RECORD - SCANNED (10/05/2019 22:25 EST) 10/05/2019 22:2 5 EST Scan 2 Benefits Technician PROCEDURE/MINOR AUDI GICAL ORDERABLES documented in this encounter Visit Diagnoses Diagnosis Stented coronary artery Postsurgical percutaneous transluminal coronary angioplasty status Coronary artery disease without angina pectoris documented in this encounter Admitting Diagnoses Diagnosis Combined forms of age-related cataract of both eyes Other and combined forms of senile cataract documented in this encounter Administered Medications Inactive Administered Medications - up to 3 most recent administrations Medication Order MAR Action Action Date Dose Rate Site cyclopentolate (CYCLOGYL) 2 % ophthalmic solution 1 Drop 1 Drop, left eye, PREOP LINKED EYE MEDS-SEE ADMIN INSTRUCTIONS, 3 doses, First dose on Fri09/29/19 at 1300, Last dose on Fri09/29/19 at 1310, Routine, Preprocedure Given 09/29/2019 13:09 EST 1 Drop Given 09/29/2019 13:08 EST 1 Drop Given 09/29/2019 13:07 EST 1 Drop ketOROLAC tromethamine (ACULAR LS) 0.4 % ophthalmic solution 1 Drop 1 Drop, left eye, PREOP LINKED EYE MEDS-SEE ADMIN INSTRUCTIONS, 3 doses, First dose on Fri09/29/19 at 1300, Last dose on Fri09/29/19 at 1310, Routine, Preprocedure Given 09/29/2019 13:06 EST 1 Drop Given 09/29/2019 13:05 EST 1 Drop Given 09/29/2019 13:04 EST 1 Drop lactated ringers (LR) infusion 30 mL/hr, intravenous, CONTINUOUS, Starting on Fri09/29/19 at 1300, Until Fri09/29/19 at 1710, Routine, Preprocedure Continued by Anesthesia 09/29/2019 14:26 EST New Bag 09/29/2019 13:21 EST 30 mL/hr 30 mL/hr lactated ringers (LR) infusion at 75 mL/hr, intravenous, CONTINUOUS, Starting on Fri09/29/19 at 1500, Until Fri09/29/19 at 1710, Routine, Recovery (only) moxifloxacin (VIGAMOX) 0.5 % ophthalmic solution 1 Drop 1 Drop, left eye, PREOP LINKED EYE MEDS-SEE ADMIN INSTRUCTIONS, 3 doses, First dose on Fri09/29/19 at 1300, Last dose on Fri09/29/19 at 1310, Routine, Preprocedure Given 09/29/2019 13:04 EST 1 Drop Given 09/29/2019 13:03 EST 1 Drop Given 09/29/2019 13:02 EST 1 Drop phenylephrine (MYDFRIN) 2.5 % ophthalmic solution 1 Drop 1 Drop, left eye, PREOP LINKED EYE MEDS-SEE ADMIN INSTRUCTIONS, 3 doses, First dose on Fri09/29/19 at 1300, Last dose on Fri09/29/19 at 1310, Routine, Preprocedure Given 09/29/2019 13:17 EST 1 Drop Given 09/29/2019 13:16 EST 1 Drop Given 09/29/2019 13:15 EST 1 Drop proparacaine (ALCAINE) 0.5 % ophthalmic solution 1 Drop 1 Drop, left eye, PREOP LINKED EYE MEDS-SEE ADMIN INSTRUCTIONS, 1 dose, First dose on Fri09/29/19 at 1300, Routine, Preprocedure Given 09/29/2019 13:01 EST 1 Drop tropicamide (MYDRIACYL) 1 % ophthalmic solution 1 Drop 1 Drop, left eye, PREOP LINKED EYE MEDS-SEE ADMIN INSTRUCTIONS, 3 doses, First dose on Fri09/29/19 at 1300, Last dose on Fri09/29/19 at 1310, Routine, Preprocedure Given 09/29/2019 13:14 EST 1 Drop Given 09/29/2019 13:13 EST 1 Drop Given 09/29/2019 13:12 EST 1 Drop documented in this encounter Historical Medications * This list may reflect changes made after this encounter. Medication Sig Dispensed Refills Start Date End Date IRBESARTAN-HYDROCHLOROTHIAZIDE ORAL Take by mouth. added in this encounter Active and Recently Administered Medications Times are shown in EST. Scheduled Medication Order 09/27/2019 09/28/2019 09/29/2019 cyclopentolate (CYCLOGYL) 2 % ophthalmic solution 1 Drop (COMPLETED) 1 Drop, left eye, PREOP LINKED EYE MEDS-SEE ADMIN INSTRUCTIONS, 3 doses, First dose on Fri09/29/19 at 1300, Last dose on Fri09/29/19 at 1310, Routine, Preprocedure 1307 (Given - Provid er: Carolynn Olivia RN)1308 (Given - Provider: Carolynn Olivia RN)1309 (Given - Provider: Carolynn Olivia, MANAN) ketOROLAC tromethamine (ACULAR LS) 0.4 % ophthalmic solution 1 Drop (COMPLETED) 1 Drop, left eye, PREOP LINKED EYE MEDS-SEE ADMIN INSTRUCTIONS, 3 doses, First dose on Fri09/29/19 at 1300, Last dose on Fri09/29/19 at 1310, Routine, Preprocedure 1304 (Given - Provid er: Carolynn Olivia RN)1305 (Given - Provider: Carolynn Olivia RN)1306 (Given - Provider: Carolynn Olivia, MANAN) moxifloxacin (VIGAMOX) 0.5 % ophthalmic solution 1 Drop (COMPLETED) 1 Drop, left eye, PREOP LINKED EYE MEDS-SEE ADMIN INSTRUCTIONS, 3 doses, First dose on Fri09/29/19 at 1300, Last dose on Fri09/29/19 at 1310, Routine, Preprocedure 1302 (Given - Provid er: Carolynn Olivia RN)1303 (Given - Provider: Carolynn Olivia RN)1304 (Given - Provider: Carolynn Olivia RN) phenylephrine (MYDFRIN) 2.5 % ophthalmic solution 1 Drop (COMPLETED) 1 Drop, left eye, PREOP LINKED EYE MEDS-SEE ADMIN INSTRUCTIONS, 3 doses, First dose on Fri09/29/19 at 1300, Last dose on Fri09/29/19 at 1310, Routine, Preprocedure 1315 (Given - Provid er: Carolynn Olivia RN)1316 (Given - Provider: Carolynn Olivia RN)1317 (Given - Provider: Carolynn Olivia RN) proparacaine (ALCAINE) 0.5 % ophthalmic solution 1 Drop (COMPLETED) 1 Drop, left eye, PREOP LINKED EYE MEDS-SEE ADMIN INSTRUCTIONS, 1 dose, First dose on Fri09/29/19 at 1300, Routine, Preprocedure 1301 (Given - Provid er: Carolynn Olivia RN) tropicamide (MYDRIACYL) 1 % ophthalmic solution 1 Drop 1 Drop, left eye, PREOP LINKED EYE MEDS-SEE ADMIN INSTRUCTIONS, 3 doses, First dose on Fri09/29/19 at 1300, Last dose on Fri09/29/19 at 1310, Routine, Preprocedure 1300 (Due)1305 (Due) 1312 (Given - Provider: Carolynn Olivia RN)1313 (Given - Provider: Carolynn Olivia RN)1314 (Given - Provider: Carolynn Olivia RN) Continuous Medication Order 09/27/2019 09/28/2019 09/29/2019 lactated ringers (LR) infusion 30 mL/hr, intravenous, CONTINUOUS, Starting on Fri09/29/19 at 1300, Until Fri09/29/19 at 1710, Routine, Preprocedure 1321 (New Bag - Prov ider: Carolynn Olivia RN)1426 (Continued by Anesthesia - Provider: SINTIA Boyd)1450 (Completed - Provider: SINTIA Boyd) lactated ringers (LR) infusion at 75 mL/hr, intravenous, CONTINUOUS, Starting on Fri09/29/19 at 1500, Until Fri09/29/19 at 1710, Routine, Recovery (only) 1500 (Canceled Entry - Provider: Batch Job User Admin - Comment: Automatically canceled at discontinue of medication order) PRN Medication Order 09/27/2019 09/28/2019 09/29/2019 balanced salt solution inrrigation solution (BSS PLUS) (CANCELED) As needed, Starting on 09/29/19 at 1430, Until 09/29/19 at 1434, Routine, Intraprocedure 1430 (Given - Provid er: Mu Acosta MD - Comment: BSS Plus [id number] BSS Part II [id number]) chondroitin-sodium hyaluronate (VISCOAT) ophthalmic solution (CANCELED) As needed, Starting on Fri09/29/19 at 1432, Until 09/29/19 at 1434, Routine, Intraprocedure 1432 (Given - Provid er: Mu Acosta MD - Comment: [id number]) lidocaine (PF) 10 mg/mL (1 %) injection (CANCELED) As needed, Starting on Fri09/29/19 at 1432, Until 09/29/19 at 1434, Routine, Intraprocedure 1432 (Given - Provid er: Mu Acosta MD - Comment: [id number]) moxifloxacin (VIGAMOX) 0.5 % ophthalmic solution (CANCELED) As needed, Starting on 09/29/19 at 1433, Until 09/29/19 at 1434, Routine, Intraprocedure 1433 (Given - Provid er: ROBBIN Florez) povidone-iodine 5 % ophthalmic solution (CANCELED) As needed, Starting on 09/29/19 at 1433, Until 09/29/19 at 1434, Routine, Intraprocedure 1433 (Given - Provid er: ROBBIN Florez) sodium hyaluronate (HEALON) ophthalmic injection (CANCELED) As needed, Starting on 09/29/19 at 1434, Until 09/29/19 at 1434, Routine, Intraprocedure 1434 (Given - Provid er: ROBBIN Florez) timolol (TIMOPTIC) 0.5 % ophthalmic solution (CANCELED) As needed, Starting on Fri09/29/19 at 1434, Until 09/29/19 at 1434, Routine, Intraprocedure 1434 (Given - Provid er: Marina Meléndez, [facility]) documented in this encounter Orders Medications Ordered That Blayne ht Not Have Been Administered Count Last Ordered Date First Ordered Date acetaminophen (TYLENOL) solu tion unit dose cup 650 mg 1 09/29/2019 acetaminophen (TYLENOL) tablet 650 mg 1 07/2020 atropine 0.1 mg/mL syringe 0.5 mg 1 020 balanced salt solution inrri gation solution (BSS PLUS) 1 09/29/2019 chondroitin-sodium hyalurona te (VISCOAT) ophthalmic solution 1 09/29/2019 lactated ringers (LR) infusion 1 09/29/2019 lidocaine (PF) 10 mg/mL (1 %) injection 1 0 09/29/2019 lidocaine (PF) 10 mg/mL (1 % ) injection 2 mg 1 09/29/2019 moxifloxacin (VIGAMOX) 0.5 % ophthalmic solution 1 09/29/2019 naloxone (NARCAN) injection 0.2 mg 1 2019 ondansetron (PF) (ZOFRAN) injection 4 mg 1 09/29/2019 povidone-iodine 5 % ophthalmic solution 1 0 09/29/2019 sodium hyaluronate (HEALON) ophthalmic injection 1 09/29/2019 timolol (TIMOPTIC) 0.5 % oph thalmic solution 1 09/29/2019 Transfer Count Last Ordered Date First Orde red Date NON-TEACHING SERVICE 1 09/29/2019 Discharge Count Last Ordered Date First Orde red Date DISCHARGE PATIENT 1 09/29/2019 documented in this encounter Care Teams Drum Loader And Unloader Relationship Specialty Start Date End Date Karo Otero MD [address] [place] [address] PCP - General 01/07/18 04/06/23 documented as of this encounter
--- OUTSIDE RECORDS SUMMARY | 2024-03-10 10:55 | XMS_ITS | Encounter Summary ---
Author Organization [facility] Address [address] [place] [address] Care Team Providers Care Wildlife Ecologist Name Role Phone Karo Otero MD Primary Care Provider [phone] Reason for Visit * Reason Comments Post-OP Follow Up Encounter Details Date Type Department Care Team (Late st Contact Info) Description 09/30/2019 10:15 EST Post-op Visit [facility] - [facility] [address] [place] [address] Mu Acosta MD [address] [facility], [address] [place] [address] Pseudophakia, left eye (Primary Dx); Mixed type age-related cataract, right eye Social History Tobacco Use Types Packs/Day Years [...] Progress Notes * Mu Acosta MD - 09/30/2019 1015 EST Chief Complaint Patient presents with ??? Post-OP Follow Up HPI The patient is a 78 y.o. male 1 day s/p uncomplicated CE/PCIOL left eye. Pt offers no complaints ofnausea or vomiting. Denies eye pain. Allergies include: Percocet [oxycodone-acetaminophen] Patient Active Problem List Diagnosis ??? 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 HTN (hypertension) ??? Acute blood loss anemia ??? Combined forms of age-related cataract of both eyes ??? Stented coronary artery ??? Coronary artery disease without angina pectoris Outpatient Medications Marked as Taking for the 09/30/19 encounter (Post-op Visit) with Mu Acosta MD [...] IRBESARTAN-HYDROCHLOROTHIAZIDE ORAL Take by mouth. ??? ketOROLAC tromethamine (ACULAR LS) 0.4 % drops [...] ??? CAD (coronary artery disease) ??? Cancer ([facility]) skin cancer ??? Cataract ??? Depression controlled [...] Dr. Acosta ??? MOHS SURGERY local ??? [place] XCAPSL CTRC RMVL INSJ IO LENS PROSTH W/O ECP Left 09/29/2019 Cataract Extraction w/IOL Implant, LEFT EYE performed by Mu Acosta MD at [facility] OR ??? REVISION TOTAL KNEE ARTHROPLASTY 2018 s/p irrigation,debridement and 2 -stage revision [place] - no problems ??? RHINOPLASTY 1991 [place] - no problems ??? TONSILLECTOMY 1944 [place] - no problems ??? TOTAL KNEE ARTHROPLASTY Right 2008, 2011 in [place] s/p I&D - antibiotics then 2 nd [...] - Linear) Right Left Dist sc 20/40 +1 Dist ph sc 20/25 -1 Tonometry (Applanation, 9:49) Right Left Pressure 14 Pupils Dark Light Shape React APD Right 2.5 2 Round Minimal None Left 5 pharm Extraocular Movement Right Left Full, Ortho Full, Ortho Neuro/Psych Oriented x3: Yes Mood/Affect: Normal Slit Lamp and Fundus Exam External Exam Right Left External Normal Slit Lamp Exam Right Left Lids/Lashes Normal Conjunctiva/Sclera White and quiet Cornea 1+ Edema Anterior Chamber 2+ Cell Iris Round and reactive Lens Posterior chamber intraocular lens DIAGNOSTIC TESTS: IMPRESSION & PLAN: Tra was seen today for post-op follow up. Diagnoses and all orders for this visit: Pseudophakia, left eye 1 day s/p uncomplicated CE/PCIOL left eye, doing well. Pred forte, Acular, quinolone in operative eye QID. Keep eye covered, apply shield when sleeping. Follow up immediately should eye pain or decrease in vision develop. Follow up in 1 week for AR and DFE left eye. Written instructions given. Mixed type age-related cataract, right eye Plan to proceed with second eye, obtain consent next visit. I have reviewed the patient's past medical, [...] Info) Description 04/30/2024 13:00 EDT Office Visit [facility] - [facility] [address] [place], [place] [phone] Anjum Miranda MD [address] [facility], [address] [place] [address] documented as of this encounter Visit Diagnoses Diagnosis Pseudophakia, left eye- Primary Lens replaced by other means Mixed type age-related cataract, right eye documented in this encounter Eye Exam Visual Acuity (Snellen - Linear) Right eye Left eye Dist sc 20/40 +1 Dist ph sc 20/25 -1 Tonometry (Applanation, 9:49) Right eye Left eye Pressure 14 Pupils Dark Light Shape React APD Right eye 2.5 2 Round Minimal None Left eye 5 pharm Extraocular Movement Right eye Left eye Full, Ortho Full, Ortho Neuro/Psych Oriented x3: Yes Mood/Affect: Normal External Exam Right eye Left eye External Normal Slit Lamp Exam Right eye Left eye Lids/Lashes Normal Conjunctiva/Sclera White and shon et Cornea 1+ Edema Anterior Chamber 2+ Cell Iris Round and reacti ve Lens Posterior chambe r intraocular lens Care Teams Wildlife Ecologist Relationship Specialty Start Date End Date Karo Otero MD [address] [place] [address] PCP - General 01/07/18 04/06/23 documented as of this encounter
--- OUTSIDE RECORDS SUMMARY | 2024-03-10 10:55 | XMS_ITS | Encounter Summary ---
Author Organization [facility] Address [address] [place] [address] Care Team Providers Care Promotions Team Leader Name Role Phone Blanco Myles MD Primary Care Provider [phone] Reason for Visit * Reason Onset Date Comments Eye Problem 04/07/2023 Encounter Details Date Type Department Care Team (Late st Contact Info) Description 04/07/2023 Telephone [facility] Op[facility]mology - [facility] [address] [place], [place] [id number] Mu Acosta MD [address] [facility], [address] [place] [address] Eye Problem Social History Tobacco [...] * Telephone Encounter - Mariluz Jonas - 04/07/2023 0957 EDT Pt scheduled today at 1:45 with [facility] * Telephone Encounter - Felipe Ramires RN - 04/07/2023 0937 EDT Per [facility]. Schedule patient for visit with him today. Matt Ramires RN 04/07/2023 9:37 * Telephone Encounter - Felipe Ramires RN - 04/07/2023 0910 EDT As of 04/07/2023 9:11: Nature of problem? Left eye blurriness. Seems to be a hazy spot post CE but has grown recently overlast couple of weeks Do you have establish eye care? JDP Onset and Duration of problem? Few weekd Is this an injury or trauma? no Pain? Describe the type of pain you are having (sharp, dull, etc) no Have you recently had eye surgery? CE for years ago Are you having new or changed flashes/and or floaters? no Any increased sensitivity to light? no Any loss of vision/curtain/darkness/veil? no Any change in vision/double vision/blurred? yes Any redness and/or drainage (color)? no Please list any over the counter or prescription eye drops that patient is using? no If yes, how often? no Are you Diabetic? no Do you wear contact lenses? Would you be able to come in today if the provider needed to see you? yes How long would it take you to get to our office? 2 hours What is the best phone number for us to speak to you? [phone] (VERIFY THE PHONE NUMBERS REGARDLESS OF WHAT IS IN THE SYSTEM.) Matt Ramires RN 04/07/2023 9:15 * Telephone Encounter - Kaela Duron - 04/07/2023 0838 EDT Which Eye? Left Nature of problem? Pt states his vision in the last few weeks he cant see anything out of the left eye. There is a big spot in the middle of his vision and cant out of that eye. Onset and Duration? Couple of weeks Can the patient come to clinic?yes How long would it take? 2.5 hrs documented in this encounter Plan of Treatment Upcoming Encounters Date Type Department Care Team (Late st Contact Info) Description 04/30/2024 13:00 EDT Office Visit [facility] Ophthalmology - [address] [id number] Anjum Miranda MD [address] [facility], [address] [place] [phone] documented as of this encounter Visit Diagnoses Not on filedocumented in this encounter Care Teams Promotions Team Leader Relationship Specialty Start Date End Date Blanco Myles MD [address] [facility] [address] [place] [address] PCP - General Emergency Medicine 04/07/23 documented as of this encounter
--- OUTSIDE RECORDS SUMMARY | 2024-03-10 10:55 | XMS_ITS | Encounter Summary ---
Author Organization [facility] Address [address] [place] [address] Care Team Providers Care Merchandise Shopper Name Role Phone Blanco Myles MD Primary Care Provider [phone] Reason for Visit * Reason Comments Follow-up Encounter Details Date Type Department Care Team (Late st Contact Info) Description 09/05/2023 13:00 EST Office Visit [facility] Ophthalmology - [address] [phone] Anjum Miranda MD [address] [facility], [address] [place] [address] Social History Tobacco Use Types [...] Progress Notes * Anjum Miranda MD - 09/05/2023 1300 EST Chief Complaint Patient presents with Follow-up HPI Pt here for 7 week f/u for Wet AMD left S/P Avastin left (07-15-23) VA stable both. No floaters or flashes. No pain Base Eye Exam Visual Acuity (Snellen - Linear) Right Left Dist cc 20/25 20/80 +2 Dist ph cc NI Correction: Glasses Tonometry (Applanation, 13:21) Right Left Pressure 11 11 Neuro/Psych Oriented x3: Yes Mood/Affect: Normal Dilation Both eyes: Phenylephrine 2.5%, Tropicamide 1% @ 13:22 Slit Lamp and Fundus Exam Slit Lamp Exam Right Left Conjunctiva/Sclera White and quiet White and quiet Cornea Clear Clear Anterior Chamber Deep and quiet Deep and quiet Iris Dilated Dilated Lens Posterior chamber intraocular lens Posterior chamber intraocular lens Fundus Exam Right Left Disc healthy healthy C/D Ratio 0.3 0.3 Macula rare large drusen foveal PED with adjacent SRH Vessels Normal Normal OCT, Retina - OU - Both Eyes Right Eye Progression has been stable. Left Eye Quality was good. Progression has improved. Findings include pigment epithelial detachment, subretinal fluid. Notes Drusen, no fluid right eye Decrease in SRHRM as well left eye Intravitreal Injection, Pharmacologic Agent - OS - Left Eye Time Out 09/05/2023. 13:49. Confirmed correct patient, procedure, site, and patient consented. Anesthesia Topical anesthesia was used. Anesthetic medications included Proparacaine 0.5%, Tetracaine 0.5%. Procedure Preparation included 5% betadine to ocular surface, eyelid speculum. A 30 gauge needle was used. 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 I am scribing for Dr. Anjum Miranda MD while he is personally performing the service. Ga Iraheta (Scribe) documented in this encounter Plan of Treatment Upcoming Encounters Date Type Department Care Team (Late st Contact Info) Description 04/30/2024 13:00 EDT Office Visit [facility] Ophthalmology - [facility] [address], [place] [phone] Anjum Miranda MD [address] [facility], [address] [place] [address] documented as of this encounter Procedures Procedure Name Priority Date/Time Associated Diagnosis Comments INTRAVITREAL INJECTION, PHARMACOLOGIC AGENT - OS - LEFT EYE Routine 09/05/2023 14:09 EST Exudative age-related macular degeneration of 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) OCT, RETINA - OU - BOTH EYES Routine 09/05/2023 13:55 EST Exudative age-related macular degeneration of 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) Intermediate stage nonexudative age-related macular degeneration of right eye documented in this encounter Results * INTRAVITREAL INJECTION, PHARMACOLOGIC AGENT - OS - LEFT EYE (09/05/2023 14:09 EST) Narrative [facility] POINT OF CARE - 09/05/2023 14:11 EST Time Out 09/05/2023. 13:49. Confirmed correct patient, procedure, site, and patient consented. Anesthesia Topical anesthesia was used. Anesthetic medications included Proparacaine 0.5%, Tetracaine 0.5%. Procedure Preparation included 5% betadine to ocular surface, eyelid speculum. A 30 gauge needle was used. Injection: 1.25 mg bevacizumab ??Route: intravitreal, Site: Left Eye ??[facility]: [id number], Lot: [id number], Expiration date: 09/05/2023 Post-op Post injection exam found visual acuity of at least counting fingers. The patient tolerated the procedure well. There were no complications. The patient received written and verbal post procedure care education. Post injection medications were not given. Anjum Miranda MD OPHTH CLINIC PROCEDU RES Performing Organization Address [facility] Co de Phone Number [facility] POINT OF CARE * OCT, RETINA - OU - BOTH EYES (09/05/2023 13:55 EST) Narrative [facility] OPHTHALMOLOGY - 09/05/2023 14:11 EST Right Eye Progression has been stable. Left Eye Quality was good. Progression has improved. Findings include pigment epithelial detachment, subretinal fluid. Notes Drusen, no fluid right eye Decrease in SRHRM as well left eye Anjum Miranda MD OPHTH TOMOGRAPHY Performing Organization Address [facility] Co de Phone Number [facility] OPHTHALMOLOGY documented in this encounter Visit [...] syringe 1.25 mg 1.25 mg, Starting on Fri09/05/23 at 1411, Until Fri09/05/23 at 1411, Routine Given 09/05/2023 14:11 EST 1.25 mg Left Eye documented in this encounter Orders Medications Ordered That Blayne ht Not Have Been Administered Count Last Ordered Date First Ordered Date bevacizumab (AVASTIN) ophtha lmic syringe 1.25 mg 1 09/05/2023 documented in this encounter Eye Exam Visual Acuity (Snellen - Linear) Right eye Left eye Dist cc 20/25 20/80 +2 Dist ph cc NI Correction: Glasses Tonometry (Applanation, 13:21) Right eye Left eye Pressure 11 11 Neuro/Psych Oriented x3: Yes Mood/Affect: Normal Dilation Both eyes: Phenylephrine 2.5 %, Tropicamide 1% @ 13:22 Slit Lamp Exam Right eye Left eye Conjunctiva/Sclera White and quiet White and shon et Cornea Clear Clear Anterior Chamber Deep and quiet Deep and quiet Iris Dilated Dilated Lens Posterior chamber in traocular lens Posterior chamber intraocular lens Fundus Exam Right eye Left eye Disc healthy healthy C/D Ratio 0.3 0.3 Macula rare large drusen foveal PED wit h adjacent SRH Vessels Normal Normal Care Teams Merchandise Shopper Relationship Specialty Start Date End Date Blanco Myles MD [address] [facility] [address] [place] [address] PCP - General Emergency Medicine 04/07/23 documented as of this encounter
--- OUTSIDE RECORDS SUMMARY | 2024-03-10 10:55 | XMS_ITS | Encounter Summary ---
Author Organization [facility] Address [address] [place] [address] Care Team Providers Care Power Plant Inspector Name Role Phone Blanco Myles MD Primary Care Provider [phone] Reason for Visit * Reason Comments Eye Problem Encounter Details Date Type Department Care Team (Late st Contact Info) Description 04/07/2023 14:00 EDT Office Visit [facility] Ophthalmology - [address] [phone] Anjum Miranda MD [address] [facility], [address] [place] [address] Social History Tobacco Use Types [...] No 01/07/2018 documented as of this encounter Patient Instructions * Patient Instructions* Marina Weaver COA - 04/07/2023 14:00 EDT Vitamin & Mineral Supplements and Your Eyes -Background Scientists have long debated whether taking vitamin and/or mineral supplements could help prevent, treat or cure certain eye conditions. Some early scientific studies seemed to show that supplements had the potential to prevent or slow the progression of cataracts and age-related macular degeneration (AMD), although more complete study was needed to answer some important questions: Which supplements are helpful for which condition(s)? Which patients will benefit from supplementation? What doses of supplements would benefit patients? What other effects might these supplements have on the body? A recent study, the Age-Related Eye Disease Study (AREDS), sought to address these questions, and seems to have given us some (but not all) of the answers to these questions. -What is AREDS? The Age-Related Eye Disease Study (AREDS) is a major study sponsored by the National Eye Steed[employer] (NEI), one of the Federal Government's National Institutes of Health, and conducted at [facility] research facilities around the country. In the study, scientists looked at the effects of zinc and antioxidants, and a combination of both,on patients with cataracts, and on those with varying stages and types of age-related macular degeneration (AMD). They also studied patients without evidence of cataract or AMD to determine if zinc and/or antioxidants can prevent the development of these conditions. -What were the results? The study showed a number of important things: High levels of antioxidants and zinc can reduce the risk of vision loss from advanced AMD by 19% inhigh-risk patients (patients with intermediate AMD or advanced AMD in one eye but not the other). Supplements do not provide significant benefit to patients with minimal AMD. These nutritional supplements do not prevent the initial development of AMD, nor do they improve vision already lost to AMD. Nutritional supplements do not seem to prevent cataracts, or to keep them from getting worse over time. While most patients in the study experienced no serious side effects from the doses of zinc and antioxidants used, a few taking zinc alone had urinary tract problems that required hospitalization. Some patients taking large doses of antioxidants experienced some yellowing of the skin. The long-termeffects of taking large doses of these supplements are still unknown. -Should I Take Nutritional Supplements? If you have intermediate AMD (or advanced AMD in one eye only), talk to your physician about takingnutritional supplements. He or she can help you determine if they may be beneficial - and safe - for you, and what types and doses of supplements to take. The doses used in the study were: -Vitamin C 500 mg -Vitamin E 400 IU -Zinc 80 mg, as zinc oxide -Copper 2 mg, as cupric oxide (copper should be taken with zinc, because high- dose zinc is associated with copper deficiency). -Lutein 10mg -Zeaxanthin 2mg It is very important to talk with your physician before taking large-dose supplements, and to follow his or her dosage recommendations carefully. Some supplements may interfere with each other or other medications. -Where Can I Get More Information? More information on AREDS is available from the National [employer] of the National Institutes of Health, www.nei.nih.gov/amd. Your Eye M.D. is your best source of information about eye care. You can also get trustworthy information from the [employer]'s partner Web site, Medem www.medem.com/MedLB/bufferpage aao.cfm. -What Should You Buy? To try to dispel some confusion about what AREDS preparation to take the preparation that seems to have the closest to what the AREDS study group suggest is the [employer] PreserVision Eye Vitamin and Mineral Supplement. It is a blue and orange (or blue and green) label and it says AREDS II (or 2) on it. You take 1 of these pills, which are Soft Gels, twice a day, with a full glass of water during a meal. documented in this encounter Progress Notes * Anjum Miranda MD - 04/07/2023 1400 EDT Chief Complaint Patient presents with ??? Eye Problem HPI Choroidal neovascular membrane left eye Pt here for Avastin injection Base Eye Exam Visual Acuity (Snellen - Linear) Right Left Dist cc 20/30 20/100 Dist ph cc 20/25 NI Tonometry (Applanation, 15:39) Right Left Pressure 12 10 Slit Lamp and Fundus Exam Slit Lamp Exam Right Left Conjunctiva/Sclera White and quiet White and quiet Cornea Clear Clear Anterior Chamber Deep and quiet Deep and quiet Iris Dilated Dilated Lens Posterior chamber intraocular lens Posterior chamber intraocular lens Fundus Exam Right Left Disc healthy healthy C/D Ratio 0.3 0.3 Macula rare large drusen foveal PED surrounded by SRH Vessels Normal Normal Intravitreal Injection, Pharmacologic Agent - OS - Left Eye Time Out 04/07/2023. 15:47. Confirmed correct patient, procedure, site, and patient consented. Anesthesia Topical anesthesia was used. Anesthetic medications included Proparacaine 0.5%, Tetracaine 0.5%. Procedure Preparation included 5% betadine to ocular surface, eyelid speculum. A 30 gauge needle was used. Injection: 1.25 mg bevacizumab Route: intravitreal, Site: Left Eye [facility]: [id number], Lot: [id number], Expiration date: 04/13/2023 Post-op Post injection exam found visual acuity of at least counting fingers. The patient tolerated the procedure well. There were no complications. Post injection medications were not given. DIAGNOSES: 1. Exudative age-related macular degeneration of left eye with active choroidal neovascularization (HCC) INTRAVITREAL INJECTION, PHARMACOLOGIC AGENT - OS - LEFT EYE bevacizumab (AVASTIN) ophthalmic syringe 1.25 mg 2. Intermediate stage nonexudative age-related macular degeneration of right eye Assessment Wet Macular Degeneration left eye Symptomatic for 1 month Subretinal heme may lead to scarring and limit visual recovery with treatment Offer to initiate anti-VEGF treatment to reduce risk of vision loss Explained this is a treatment and could possibly need to be repeated the rest of his life. Will evaluate visual potential after the 3rd injection. 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 I am scribing for Dr. Anjum Miranda MD while he is personally performing the service. ROBBIN Adhikari (Scribe) documented in this encounter Plan of Treatment Upcoming Encounters Date Type Department Care Team (Late st Contact Info) Description 04/30/2024 13:00 EDT Office Visit [facility] [address], [place] [phone] Anjum Miranda MD [address] [facility], [address] [place] [address] documented as of this encounter Procedures Procedure Name Priority Date/Time Associated Diagnosis Comments INTRAVITREAL INJECTION, PHARMACOLOGIC AGENT - OS - LEFT EYE Routine 04/07/2023 16:04 EDT Exudative age-related macular degeneration of left eye with active choroidal neovascularization ([facility]) documented in this encounter Results * INTRAVITREAL INJECTION, PHARMACOLOGIC AGENT - OS - LEFT EYE (04/07/2023 16:04 EDT) Narrative [facility] POINT OF CARE - 04/07/2023 16:37 EDT Time Out 04/07/2023. 15:47. Confirmed correct patient, procedure, site, and patient consented. Anesthesia Topical anesthesia was used. Anesthetic medications included Proparacaine 0.5%, Tetracaine 0.5%. Procedure Preparation included 5% betadine to ocular surface, eyelid speculum. A 30 gauge needle was used. Injection: 1.25 mg bevacizumab ??Route: intravitreal, Site: Left Eye ??[facility]: [id number], Lot: [id number], Expiration date: 04/13/2023 Post-op Post injection exam found visual acuity of at least counting fingers. The patient tolerated the procedure well. There were no complications. Post injection medications were not given. Anjum Miranda MD OPHTH CLINIC PROCEDU RES [facility] POINT OF CARE documented in this encounter Visit Diagnoses Diagnosis Exudative age-related macular degeneration of left eye with active choroidal neovascularization ([facility])- Primary Intermediate stage nonexudative age-related macular degeneration of right eye documented in this encounter Administered Medications Inactive Administered Medications - up to 3 most recent administrations Medication Order MAR Action Action Date Dose Rate Site bevacizumab (AVASTIN) ophthalmic syringe 1.25 mg 1.25 mg, Starting on Fri04/07/23 at 1637, Until Fri04/07/23 at 1637, Routine Given 04/07/2023 16:37 EDT 1.25 mg Left Eye documented in this encounter Orders Medications Ordered That Blayne ht Not Have Been Administered Count Last Ordered Date First Ordered Date bevacizumab (AVASTIN) ophtha lmic syringe 1.25 mg 1 04/07/2023 documented in this encounter Eye Exam Visual Acuity (Snellen - Linear) Right eye Left eye Dist cc 20/30 20/100 Dist ph cc 20/25 NI Tonometry (Applanation, 15:39) Right eye Left eye Pressure 12 10 Slit Lamp Exam Right eye Left eye [...] by SRH Vessels Normal Normal Care Teams Power Plant Inspector Relationship Specialty Start Date End Date Blanco Myles MD [address] [facility] [address] [place] [address] PCP - General Emergency Medicine 04/07/23 documented as of this encounter
--- OUTSIDE RECORDS SUMMARY | 2024-03-10 10:55 | XMS_ITS | Encounter Summary ---
Author Organization 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 [H25.813] Procedures SD XCAPSL CTRC RMVL INSJ IO LENS PROSTH W/O ECP Cataract Extraction w/IOL Implant, RIGHT EYE Referral ID Status Reason Start Date Expiration Date Visits Re quested Visits Authorized [id number] 1 1 Encounter Details Date Type Department Care Team (Late st Contact Info) Description 10/14/2019 10:46 EST - 10/14/2019 14:50 EST Hospital Encounter [facility] Operating Room [address] [place] [address] Mu Acosta MD [address] [facility], [address] [place] [address] Discharge Disposition: Home or Self [...] Blood Pressure 152/89 10/14/2019 1445 EST Pulse - - Temperature 36.1 ??C (97 ??F) 10/14/2019 1445 [...] Acosta MD 10/14/2019 13:54 Source Note - SENIOR FIRMWARE ENGINEER, SCAN 2 - 10/08/2019 14:45 EST documented in this encounter OR Notes * OR Surgeon - Mu Acosta MD - 10/14/2019 1441 EST Preoperative diagnosis: Combined senile cataract, right eye Postoperative diagnosis: Same as above Procedure: Phacoemulsification with intraocular lens implantation, right eye Surgeon: Mu Acosta MD Math Teacher: ROBBIN Shah Anesthesia: Local with monitored anesthesia [...] Info) Description 04/30/2024 13:00 EDT Office Visit [facility] Ophthalmology - [address] [address] Anjum Miranda MD [address] [facility], [address] [place] [address] documented as of this encounter Procedures Procedure Name Priority Date/Time Associated Diagnosis Comments IMPLANT RECORD - SCANNED 10/25/2019 18:00 EDT EXTRACTION, CATARACT, EXTRACAPSULAR, WITH IOL INSERTION 10/14/2019 14:11 EST Combined forms of age-related cataract of both eyes documented in this encounter Results * IMPLANT RECORD - SCANNED (10/25/2019 18:00 EDT) 10/25/2019 18:0 0 EDT Scan 2 Manager Of Training PROCEDURE/MINOR AUDI GICAL ORDERABLES documented in this [...] 10/14/2019 12:20 EST 30 mL/hr 30 mL/hr moxifloxacin (VIGAMOX) 0.5 % ophthalmic solution 1 Drop 1 Drop, right eye, PREOP LINKED EYE MEDS-SEE ADMIN INSTRUCTIONS, 3 doses, First dose on Nilda 10/14/19 at 1345, Last dose on Nilda 10/14/19 at 1355, Routine, Preprocedure Given 10/14/2019 12:08 EST 1 Drop Given 10/14/2019 12:05 EST 1 Drop Given 10/14/2019 12:03 EST 1 Drop phenylephrine (MYDFRIN) 2.5 % ophthalmic solution 1 Drop 1 Drop, right eye, PREOP LINKED EYE MEDS-SEE ADMIN INSTRUCTIONS, 3 doses, First dose on Nilda 10/14/19 at 1345, Last dose on Nilda 10/14/19 at 1355, Routine, Preprocedure Given 10/14/2019 12:30 EST 1 Drop Given 10/14/2019 12:29 EST 1 Drop Given 10/14/2019 12:27 EST 1 Drop proparacaine (ALCAINE) 0.5 % ophthalmic solution 1 Drop 1 Drop, right eye, PREOP LINKED EYE MEDS-SEE ADMIN INSTRUCTIONS, 1 dose, First dose on Nilda 10/14/19 at 1345, Routine, Preprocedure Given 10/14/2019 12:00 EST 1 Drop tropicamide (MYDRIACYL) 1 % [...] Ambrose Phipps RN)1217 (Given - Provider: Ambrose hPipps RN)1345 (Due)1350 (Due)1355 (Due) ketOROLAC tromethamine (ACULAR [...] INSTRUCTIONS, 3 doses, First dose on Nilda 10/14/20 at 1345, Last dose on Nilda 20 at 1355, Routine, Preprocedure 1227 (Given - [...] INSTRUCTIONS, 3 doses, First dose on Nilda 10/14/20 at 1345, Last dose on Nilda 10/14/20 at 1355, Routine, Preprocedure 1220 (Given - Provid er: Ambrose Phipps RN)1222 (Given - Provider: Ambrose Phipps RN)1224 (Given - Provider: Ambrose Phipps RN)1345 (Due)1350 (Due)1355 (Due) Continuous Medication Order 10/12/2019 10/13/2019 10/14/2019 lactated ringers (LR) infusion 30 mL/hr, intravenous, CONTINUOUS, Starting on Nilda 10/14/19 at 1345, Until Nilda 20 at 1709, Routine, Preprocedure 1220 (New Bag [...] Mu Acosta MD - Comment: Part I [id number] Pat II [id number]) balanced salts (BSS) ophthalmic solution (CANCELED) As needed, Starting on Nilda 10/14/19 at 1428, Until Nilda 10/14/19 at 1431, Routine, Intraprocedure 1428 (Given - Provid er: Mu Acosta MD) chondroitin-sodium hyaluronate (VISCOAT) ophthalmic solution (CANCELED) As needed, Starting on Nilda 10/14/19 at 1429, Until Nilda 10/14/19 at 1431, Routine, Intraprocedure 1429 (Given - Provid er: Mu Acosta MD - Comment: #[id number]) lidocaine (PF) 10 mg/mL (1 %) injection (CANCELED) As needed, Starting on Nilda 10/14/19 at 1429, Until Nilda 10/14/19 at 1431, Routine, Intraprocedure 1429 (Given - Provid er: Mu Acosta MD - Comment: #[id number]) moxifloxacin (VIGAMOX) 0.5 % ophthalmic solution (CANCELED) [...] Provid er: Mu Acosta MD - Comment: #[id number]) timolol (TIMOPTIC) 0.5 % ophthalmic solution (CANCELED) As needed, Starting on Nilda 10/14/19 at 1430, Until Nilda 10/14/19 at 1431, Routine, Intraprocedure 1430 (Given - Provid er: Mu Acosta MD) documented in this encounter Orders Medications Ordered That Blayne ht Not Have Been Administered Count Last Ordered Date First Ordered Date balanced salt solution inrri gation solution (BSS PLUS) 1 10/14/2019 balanced salts (BSS) ophthalmic solution 1 10/14/2019 chondroitin-sodium hyalurona te (VISCOAT) ophthalmic solution 1 10/14/2019 lidocaine (PF) 10 mg/mL (1 %) injection 1 0 10/14/2019 lidocaine (PF) 10 mg/mL (1 % ) injection 2 mg 1 10/14/2019 moxifloxacin (VIGAMOX) 0.5 % ophthalmic solution 1 10/14/2019 povidone-iodine 5 % ophthalmic solution 1 0 10/14/2019 sodium hyaluronate (HEALON) ophthalmic injection 1 10/14/2019 timolol (TIMOPTIC) 0.5 % oph thalmic solution 1 10/14/2019 Transfer Count Last Ordered Date First Orde red Date NON-TEACHING SERVICE 1 10/14/2019 Discharge Count Last Ordered Date First Orde red Date DISCHARGE PATIENT 1 10/14/2019 documented in this encounter Care Teams Wire Machine Cutter Relationship Specialty Start Date End Date Karo Otero MD [address] [place] [phone] PCP - General 01/07/18 04/06/23 documented as of this encounter
--- OUTSIDE RECORDS SUMMARY | 2024-03-10 10:55 | XMS_ITS | Encounter Summary ---
Author Organization [facility] Address [address] [place] [address] Care Team Providers Care Sheet Metal Duct Installer Name Role Phone Joo Otero MD Primary Care Provider [phone] Blanco Myles MD Primary Care Provider [phone] Encounter Details Date Type Department Care Team (Late st Contact Info) Description 02/04/2022 Lab Requisition [facility] Pathology & Laboratory Medicine - [facility] [address] [place] [address] Ventura Stuart MD [address] [place] [phone] Encounter for other general examination Social History Tobacco Use Types Packs/Day Years [...] Info) Description 04/30/2024 13:00 EDT Office Visit [facility] Ophthalmology - [address] [id number] Anjum Miranda MD [address] [place] [address], [facility] [address] [place] [address] documented as of this encounter Procedures Procedure Name Priority Date/Time Associated Diagnosis Comments SURGICAL PATHOLOGY Today 02/02/2022 13 :15 EDT Encounter for other general examination documented in this encounter Results * SURGICAL PATHOLOGY (02/02/2022 13:15 EDT) Note to Patient The following pathology results have been interpreted by your pathologist and may be available to you before your health provider has had the opportunity to review them. Please allow time for your provider to receive these results and explore management options, if applicable. 02/07/2022 10:39 T [facility] Final Diagnosis A. GALLBLADDER, CHOLECYSTECTOMY: - Severe acute erosive focally gangrenous cholecystitis. 02/07/2022 10:39 T [facility] Attestation There was significant resident/fellow involvement in the diagnostic evaluation of this case. By the signature below, the attending physician certifies that they have personally conducted a gross and/or microscopic examination of the described specimens and rendered or confirmed the above diagnosis. 02/07/2022 10:39 [facility] at 1039 Clinical History Cholecystitis 02/07/2022 10:39 EDT [facility] Gross Description A. Received in formalin labelled with proper patient identification (initials G,M) and gallbladder is previously disrupted gallbladder with an attached segment of cystic duct (1.2 x 0.5 x 0.3 cm). A cystic duct lymph node is not present. The serosa is mon-white to focally hemorrhagic. The mucosa is gangrenous appearing and the wall is 0.3 cm in thickness. The cystic duct lumen is patent and measures 0.3 cm in diameter. The cystic duct margin is inked blue. No choleliths identified grossly. Two account representative sections and the en face cystic duct margin are submitted in A1. JOO LI DO 02/05/2022 13:55 02/07/2022 10:39 EDT [facility] Resident/[place] w: Joo Li DO 02/07/2022 10:39 EDT [facility] Performing Lab [facility] 02/07/2022 10:39 EDT [facility] Scanned Images 02/07/2022 10:39 EDT [facility] Tissue ENTIRE GALLBLADDER / Unknown 02/02/2022 13:15 EDT 02/04/2022 17:18 EDT Ventura Stuart MD PATHOLOGY ORDERABLES [facility] [address] [place] [address] documented in this encounter Visit Diagnoses Diagnosis Encounter for other general examination documented in this encounter Care Teams Sheet Metal Duct Installer Relationship Specialty Start Date End Date Joo Otero MD [address] [place] [id number] PCP - General 01/07/18 04/06/23 Blanco Myles MD [address] [facility] [address] [place] [id number] PCP - General Emergency Medicine 04/07/23 documented as of this encounter
--- OUTSIDE RECORDS SUMMARY | 2024-03-10 10:55 | XMS_ITS | Encounter Summary ---
Author Organization [facility] Address [address] [place] [address] Care Team Providers Care Pl Sql Developer Name Role Phone Blanco Myles MD Primary Care Provider [phone] Reason for Visit * Reason Comments Follow-up Encounter Details Date Type Department Care Team (Late st Contact Info) Description 07/15/2023 13:00 EST Office Visit [facility] Ophthalmology - [address] [id number] Anjum Miranda MD [address] [facility], [address] [place] [address] Social History Tobacco Use Types [...] Progress Notes * Anjum Miranda MD - 07/15/2023 1300 EST Chief Complaint Patient presents with ??? Follow-up HPI Pt here for 5 week f/u for Wet AMD left S/P Avastin#3 left (06-10-23) VA improving left. VA stable right. No floaters or flashes. No pain Base Eye Exam Visual Acuity (Snellen - Linear) Right Left Dist cc 20/30 20/70 +2 Dist ph cc NI Correction: Glasses Tonometry (Applanation, 13:28) Right Left Pressure 10 13 Neuro/Psych Oriented x3: Yes Mood/Affect: Normal Dilation Both eyes: Phenylephrine 2.5%, Tropicamide 1% @ 13:28 Slit Lamp and Fundus Exam Slit Lamp [...] - OS - Left Eye Time Out 07/15/2023. 14:17. Confirmed correct patient, procedure, site, and patient consented. Anesthesia Topical anesthesia was used. Anesthetic medications included Proparacaine 0.5%, Tetracaine 0.5%. Procedure Preparation included 5% betadine to ocular surface, eyelid speculum. A 30 gauge needle was used. Injection: 1.25 mg bevacizumab Route: intravitreal, Site: Left Eye [facility]: [address]-07, Lot: [id number], Expiration date: 07/15/2023 Post-op Post injection exam found visual acuity of at least counting fingers. The patient tolerated the procedure well. There were no complications. Post injection medications were not given. DIAGNOSES: 1. Exudative age-related macular degeneration of left eye with active choroidal neovascularization ([facility]) OCT, RETINA - OU - BOTH EYES INTRAVITREAL INJECTION, PHARMACOLOGIC AGENT - OS - LEFT EYE bevacizumab (AVASTIN) ophthalmic syringe 1.25 mg 2. Intermediate stage nonexudative age-related macular degeneration of right eye OCT, RETINA - OU -BOTH EYES Assessment Wet??age related macular Degeneration left eye?? Anatomic and visual improvement 5 weeks s/p Avastin #3 Patient would like to continue treatment to maintain 20/70 vision Subretinal heme may lead to scarring and limit visual recovery with treatment Offer Avastin left eye and attempt extension to 7 weeks Patient agrees Avastin injection done to left eye today ?? Intermediate Dry Macular Degeneration right eye Rare large drusen Start AREDS 2 vitamins to reduce risk of vision loss from choroidal neovascular m Return in about 7 weeks (around 09/02/2023) for dilation, OCT, Avastin, left eye. I am scribing for Dr. Anjum Miranda MD while he is personally performing the service. CHELSEA Holcomb (Scribe) documented in this encounter Plan of Treatment Upcoming Encounters Date Type Department Care Team (Late st Contact Info) Description 04/30/2024 13:00 EDT Office Visit [facility] Ophthalmology - [facility] [address] [place] [address] Anjum Miranda MD [address] [facility], [address] [place] [address] documented as of this encounter Procedures Procedure Name Priority Date/Time Associated Diagnosis Comments INTRAVITREAL INJECTION, PHARMACOLOGIC AGENT - OS - LEFT EYE Routine 07/15/2023 14:18 EST Exudative age-related macular degeneration of left eye with active choroidal neovascularization ([facility]) OCT, RETINA - OU - BOTH EYES Routine 07/15/2023 14:13 EST Exudative age-related macular degeneration of 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) Intermediate stage nonexudative age-related macular degeneration of right eye documented in this encounter Results * INTRAVITREAL INJECTION, PHARMACOLOGIC AGENT - OS - LEFT EYE (07/15/2023 14:18 EST) Narrative [facility] POINT OF CARE - 07/15/2023 14:32 EST Time Out 07/15/2023. 14:17. Confirmed correct patient, procedure, site, and patient consented. Anesthesia Topical anesthesia was used. Anesthetic medications included Proparacaine 0.5%, Tetracaine 0.5%. Procedure Preparation included 5% betadine to ocular surface, eyelid speculum. A 30 gauge needle was used. Injection: 1.25 mg bevacizumab ??Route: intravitreal, Site: Left Eye ??[facility]: [id number], Lot: [id number], Expiration date: 07/15/2023 Post-op Post injection exam found visual acuity of at least counting fingers. The patient tolerated the procedure well. There were no complications. Post injection medications were not given. Anjum Miranda MD OPHTH CLINIC PROCEDU RES Performing Organization Address [facility]/ZIP Co de Phone Number [facility] POINT OF CARE * OCT, RETINA - OU - BOTH EYES (07/15/2023 14:13 EST) Narrative [facility] OPHTHALMOLOGY - 07/15/2023 14:32 EST Right Eye Progression has been stable. Left Eye Quality was good. Progression has improved. Findings include pigment epithelial detachment, subretinal fluid. Notes Drusen, no fluid right eye Decrease in SRHRM as well left eye Anjum Miranda MD OPHTH TOMOGRAPHY Performing Organization Address [facility]/ZIP Co de Phone Number [facility] OPHTHALMOLOGY documented in this encounter Visit [...] syringe 1.25 mg 1.25 mg, Starting on Fri07/15/23 at 1432, Until Fri07/15/23 at 1432, Routine Given 07/15/2023 14:32 EST 1.25 mg Left Eye documented in this encounter Orders Medications Ordered That Blayne ht Not Have Been Administered Count Last Ordered Date First Ordered Date bevacizumab (AVASTIN) ophtha lmic syringe 1.25 mg 1 07/15/2023 documented in this encounter Eye Exam Visual Acuity (Snellen - Linear) Right eye Left eye Dist cc 20/30 20/70 +2 Dist ph cc NI Correction: Glasses Tonometry (Applanation, 13:28) Right eye Left eye Pressure 10 13 Neuro/Psych Oriented x3: Yes Mood/Affect: Normal Dilation Both eyes: Phenylephrine 2.5 %, Tropicamide 1% @ 13:28 Slit Lamp Exam Right eye Left eye [...] by SRH Vessels Normal Normal Care Teams Pl Sql Developer Relationship Specialty Start Date End Date Blanco Myles MD [address] [facility] [address] [place] [id number] PCP - General Emergency Medicine 04/07/23 documented as of this encounter
--- OUTSIDE RECORDS SUMMARY | 2024-03-10 10:55 | XMS_ITS | Encounter Summary ---
Author Organization [facility] Address [address] [place] [address] Care Team Providers Care Flotation Tank Operator Name Role Phone Karo Otero MD Primary Care Provider [phone] Reason for Visit * Reason Comments Post-OP Follow Up Encounter Details Date Type Department Care Team (Late st Contact Info) Description 10/08/2019 13:30 EST Post-op Visit [facility] Ophthalmology - [address] [address] Mu Acosta MD [address] [facility], [address] [place] [address] Pseudophakia, left eye (Primary Dx); [...] Dispensed Refills Start Date End Da te moxifloxacin (VIGAMOX) 0.5 % ophthalmic solution Place 1 Drop into the right eye 4 times daily. Start three days prior to surgery, and continue until gone 1 Bottle 1 10/08/2019 03/01/2020 prednisoLONE (PRED FORTE) 1 % ophthalmic suspension Place 1 Drop into the right eye 4 times daily. Start after surgery 1 Bottle 1 10/08/2019 03/01/2020 ketOROLAC (ACULAR) 0.5 % ophthalmic solution Place 1 Drop into the right eye 4 times daily. Start three days prior to surgery, and continue until gone 1 Bottle 1 10/08/2019 03/01/2020 documented in this encounter Progress Notes * Mu Acosta MD - 10/08/2019 2767 EST Chief Complaint Patient presents with ??? Post-OP Follow Up HPI The patient is a 78 y.o. male 1 week s/p uncomplicated phaco left eye. States vision is improved from last [...] Outpatient Medications Marked as Taking for the 10/08/19 encounter (Post-op Visit) with Mu Acosta MD [...] ??? IRBESARTAN-HYDROCHLOROTHIAZIDE ORAL Take by mouth. ??? [DISCONTINUED] ketOROLAC tromethamine (ACULAR LS) 0.4 % drops Place 1 Drop into the left eye 4 times daily. Start three days prior to surgery, and continue until gone ??? [DISCONTINUED] moxifloxacin (VIGAMOX) 0.5 % ophthalmic solution Place [...] 20 mg by mouth at bedtime. ??? [DISCONTINUED] prednisoLONE (PRED FORTE) 1 % ophthalmic suspension Place 1 Drop into the left eye 4 times daily. Start after surgery ??? temazepam (RESTORIL) 15 mg capsule Take 15 mg by mouth at bedtime as needed for Sleep. Past Medical History: Diagnosis Date ??? Anemia s/p 2018 femur fx repair - 2units PRB ??? [...] [place]- no problems ??? HAMMER TOE SURGERY 2003 [place]- no problems ??? INTRAOCULAR LENS PROSTHESIS INSERTION Left 09/29/2019 Dr. Acosta ??? MOHS SURGERY local ??? [place] XCAPSL CTRC RMVL INSJ IO LENS PROSTH W/O ECP Left 09/29/2019 Cataract Extraction w/IOL Implant, LEFT EYE performed by Mu Acosta MD at [facility] OR ??? REVISION TOTAL KNEE ARTHROPLASTY 2017 s/p irrigation,debridement and 2 -stage revision [place] - no problems ??? RHINOPLASTY 1991 [place] - no problems ??? TONSILLECTOMY 1944 [place] - no problems ??? TOTAL KNEE ARTHROPLASTY Right 2011 in [place] s/p I&D - antibiotics then 2 nd [...] (Snellen - Linear) Right Left Dist sc 20/50 Dist ph sc 20/25 -2 Tonometry (Applanation, 13:29) Right Left Pressure 10 09 Neuro/Psych Oriented x3: Yes Mood/Affect: Normal Dilation Left eye: Paremyd @ 13:29 Slit Lamp and Fundus Exam External Exam Right Left External Normal Slit Lamp Exam Right Left Lids/Lashes Normal Conjunctiva/Sclera White and quiet Cornea Clear Anterior Chamber Deep and quiet Iris Round, flat, dilated Lens PCIOL Vitreous Normal Fundus Exam Right Left C/D Ratio 0.3 Macula Normal Vessels Normal Refraction Manifest Refraction Sphere Cylinder [place] Dist VA Right Left -1.00 Sphere 180 20/20 IMPRESSION & PLAN: Tra was seen today for post-op follow up. Diagnoses and all orders for this visit: Pseudophakia, left eye 1 week s/p uncomplicated CE/PCIOL left eye. Doing well. Acular and quinolone in operative eye QID until gone, Pred forte taper to TID for 1 week, BID for 1 week, daily for 1 week then stop. Follow upshould eye pain or decreased vision develop, otherwise as planned for surgery right eye. Written instructions given. Mixed type age-related cataract, right eye CE/PCIOL scheduled 10/14/2019. Consent obtained today. Other orders - ketOROLAC (ACULAR) 0.5 % ophthalmic solution; Place 1 Drop into the right eye 4 times daily. Start three days prior to surgery, and continue until gone - prednisoLONE (PRED FORTE) 1 % ophthalmic suspension; Place 1 Drop into the right eye 4 times daily. Start after surgery - moxifloxacin (VIGAMOX) 0.5 % ophthalmic solution; Place 1 Drop into the right eye 4 times daily. Start three days prior to surgery, and continue until gone I have reviewed the patient's past medical, family, social and surgical history. I have also reviewed the patient's medications, allergies, and problem list. I performed my own HPI and have reviewed the [facility]'s ROS as well. I personally completed this exam myself. Mu Acosta MD I am scribing for Dr. Mu Acosta, while he is personally performing the service. Ventura Padilla, COA. The patient was instructed to call our office or go to emergency room if worse vision, worse symptoms, or new/other concerns arise. documented in this encounter Plan of Treatment Upcoming Encounters Date Type Department Care Team (Late st Contact Info) Description 04/30/2024 13:00 EDT Office Visit [facility] Ophthalmology - [facility] [address] [place] [address] Anjum Miranda MD [address] [facility], [address] [place] [address] documented as of this encounter Visit Diagnoses Diagnosis Pseudophakia, left eye- Primary Lens replaced by other means Mixed type age-related cataract, right eye documented in this encounter Discontinued Medications Medication Sig Discontinue Reason Start Date End Da te prednisoLONE (PRED FORTE) 1 % ophthalmic suspension Place 1 Drop into the left eye 4 times daily. Start after surgery Therapy completed 09/15/2019 10/08/2019 ketOROLAC tromethamine (ACULAR LS) 0.4 % drops Place 1 Drop into the left eye 4 times daily. Start three days prior to surgery, and continue until gone Therapy completed 09/21/2019 10/08/2019 moxifloxacin (VIGAMOX) 0.5 % ophthalmic solution Place 1 Drop into the left eye 4 times daily. Start three days prior to surgery, and continue until gone Therapy completed 09/15/2019 10/08/2019 documented as of this encounter Eye Exam Visual Acuity (Snellen - Linear) Right eye Left eye Dist sc 20/50 Dist ph sc 20/25 -2 Tonometry (Applanation, 13:29) Right eye Left eye Pressure 10 09 Neuro/Psych Oriented x3: Yes Mood/Affect: Normal Dilation Left eye: Paremyd @ 13:29 External Exam Right eye Left eye External Normal Slit Lamp Exam Right eye Left eye Lids/Lashes Normal Conjunctiva/Sclera White and shon et Cornea Clear Anterior Chamber Deep and quiet Iris Round, flat, dil ated Lens PCIOL Vitreous Normal Fundus Exam Right eye Left eye C/D Ratio 0.3 Macula Normal Vessels Normal Manifest Refraction Sphere Cylinder [place] Dist VA Right eye Left eye -1.00 Sphere 180 20/20 Care Teams Flotation Tank Operator Relationship Specialty Start Date End Date Karo Otero MD [address] [place] [address] PCP - General 01/07/18 04/06/23 documented as of this encounter
--- OUTSIDE RECORDS SUMMARY | 2024-03-10 10:55 | XMS_ITS | Encounter Summary ---
Author Organization [facility] Address [address] [place] [address] Care Team Providers Care Survey Methodologist Name Role Phone Blanco Myles MD Primary Care Provider [phone] Reason for Visit * Reason Comments Eye Problem Wet AMD left eye. S/ p Avastin #2 left eye 05/06/2023. Pt reports VA has improved since last visit. No new F/F, no eye pain.Takes Areds 2 BID Encounter Details Date Type Department Care Team (Late st Contact Info) Description 06/10/2023 13:00 EDT Office Visit [facility] Ophthalmology - [address] [address] Anjum Miranda MD 111 [facility], [address] 5 [place] [address] Social History Tobacco Use Types [...] Progress Notes * Anjum Miranda MD - 06/10/2023 1300 EDT Chief Complaint Patient presents with ??? Eye Problem Wet AMD left eye. S/p Avastin #2 left eye 05/06/2023. Pt reports VA has improved since last visit. No new F/F, no eye pain. Takes Areds 2 BID HPI Eye Problem Comments: Wet AMD left eye. S/p Avastin #2 left eye 05/06/2023. Pt reports VA has improved since last visit. No new F/F, no eye pain. Takes Areds 2 BID Base Eye Exam Visual Acuity (Snellen - Linear) Right Left Dist cc 20/25 20/80 +2 Dist ph cc NI Tonometry (Applanation, 13:07) Right Left Pressure 11 12 Pupils Pupils Right PERRL Left PERRL Neuro/Psych Oriented x3: Yes Mood/Affect: Normal Dilation Both eyes: Phenylephrine 2.5%, Tropicamide 1% @ 13:07 Slit Lamp and Fundus Exam Slit Lamp [...] - OS - Left Eye Time Out 06/10/2023. 13:54. Confirmed correct patient, procedure, site, and patient consented. Anesthesia Topical anesthesia was used. Anesthetic medications included Proparacaine 0.5%, Tetracaine 0.5%. Procedure Preparation included 5% betadine to ocular surface, eyelid speculum. A 30 gauge needle was used. Injection: 1.25 mg bevacizumab Route: intravitreal, Site: Left Eye [facility]: [address]-14, Lot: [id number], Expiration date: 06/15/2023 Post-op Post injection exam found visual acuity of at least counting fingers. The patient tolerated the procedure well. There were no complications. Post injection medications were not given. DIAGNOSES: 1. Exudative age-related macular degeneration of left eye with active choroidal neovascularization ([facility]) OCT, RETINA - OU - BOTH EYES INTRAVITREAL INJECTION, PHARMACOLOGIC AGENT - OS - LEFT EYE bevacizumab (AVASTIN) ophthalmic syringe 1.25 mg 2. Intermediate stage nonexudative age-related macular degeneration of right eye OCT, RETINA - OU -BOTH EYES Assessment ?? Wet age related macular Degeneration left eye Anatomic and visual improvement 4 weeks s/p Avastin #2 Subretinal heme may lead to scarring and limit visual recovery with treatment Offer Avastin left eye Patient agrees Avastin injection #3 done to left eye today ?? Intermediate Dry Macular Degeneration right eye Rare large drusen Start AREDS 2 vitamins to reduce risk of vision loss from choroidal neovascular membrane Return in about 4 weeks (around 07/08/2023) for oct, avastin. I am scribing for Dr. Anjum Miranda MD while he is personally performing the service. ROBBIN Adhikari (Scribe) documented in this encounter Plan of Treatment Upcoming Encounters Date Type Department Care Team (Late st Contact Info) Description 04/30/2024 13:00 EDT Office Visit [facility] Ophthalmology - [address] [address] Anjum Miranda MD 111 [facility], [address] [place] [address] documented as of this encounter Procedures Procedure Name Priority Date/Time Associated Diagnosis Comments INTRAVITREAL INJECTION, PHARMACOLOGIC AGENT - OS - LEFT EYE Routine 06/10/2023 14:03 EDT Exudative age-related macular degeneration of 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) OCT, RETINA - OU - BOTH EYES Routine 06/10/2023 13:49 EDT Exudative age-related macular degeneration of 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) Intermediate stage nonexudative age-related macular degeneration of right eye documented in this encounter Results * INTRAVITREAL INJECTION, PHARMACOLOGIC AGENT - OS - LEFT EYE (06/10/2023 14:03 EDT) Narrative [facility] POINT OF CARE - 06/10/2023 14:35 EDT Time Out 06/10/2023. 13:54. Confirmed correct patient, procedure, site, and patient consented. Anesthesia Topical anesthesia was used. Anesthetic medications included Proparacaine 0.5%, Tetracaine 0.5%. Procedure Preparation included 5% betadine to ocular surface, eyelid speculum. A 30 gauge needle was used. Injection: 1.25 mg bevacizumab ??Route: intravitreal, Site: Left Eye ??[facility]: [id number], Lot: [id number], Expiration date: 06/15/2023 Post-op Post injection exam found visual acuity of at least counting fingers. The patient tolerated the procedure well. There were no complications. Post injection medications were not given. Anjum Miranda MD OPHTH CLINIC PROCEDU RES [facility] POINT OF CARE * OCT, RETINA - OU - BOTH EYES (06/10/2023 13:49 EDT) Narrative [facility] OPHTHALMOLOGY - 06/10/2023 14:35 EDT Right Eye Progression has been stable. Left Eye Quality was good. Progression has improved. Findings include pigment epithelial detachment, subretinal fluid. Notes Drusen, no fluid right eye Decrease in SRHRM as well left eye Anjum Miranda MD OPHTH TOMOGRAPHY [facility] OPHTHALMOLOGY documented in this encounter Visit Diagnoses Diagnosis Exudative age-related macular degeneration of left eye with active choroidal neovascularization ([facility])- Primary Intermediate stage nonexudative age-related macular degeneration of right eye documented in this encounter Administered Medications Inactive Administered Medications - up to 3 most recent administrations Medication Order MAR Action Action Date Dose Rate Site bevacizumab (AVASTIN) ophthalmic syringe 1.25 mg 1.25 mg, Starting on Fri06/10/23 at 1435, Until Fri06/10/23 at 1435, Routine Given 06/10/2023 14:35 EDT 1.25 mg Left Eye documented in this encounter Orders Medications Ordered That Blayne ht Not Have Been Administered Count Last Ordered Date First Ordered Date bevacizumab (AVASTIN) ophtha lmic syringe 1.25 mg 1 06/10/2023 documented in this encounter Eye Exam Visual Acuity (Snellen - Linear) Right eye Left eye Dist cc 20/25 20/80 +2 Dist ph cc NI Tonometry (Applanation, 13:07) Right eye Left eye Pressure 11 12 Pupils Pupils Right eye PERRL Left eye PERRL Neuro/Psych Oriented x3: Yes Mood/Affect: Normal Dilation Both eyes: Phenylephrine 2.5 %, Tropicamide 1% @ 13:07 Slit Lamp Exam Right eye Left eye [...] by [facility] Vessels Normal Normal Care Teams Survey Methodologist Relationship Specialty Start Date End Date Blanco Myles MD [address] [place] [address] PCP - General Emergency Medicine 04/07/23 documented as of this encounter
--- OUTSIDE RECORDS SUMMARY | 2024-03-10 10:55 | XMS_ITS | Encounter Summary ---
Author Organization [facility] Address [address] [place] [address] Care Team Providers Care Pbx Teacher Name Role Phone Karo Otero MD Primary Care Provider Reason for Visit * Reason Onset Date Comments Medication Adherence 09/20/2019 Encounter Details Date Type Department Care Team (Late st Contact Info) Description 09/20/2019 Refill [facility] Ophthalmology - [address] [id number] Mu Acosta MD [address] [place] [address], [address] [place] [address] Medication Adherence Social History Tobacco Use Types Packs/Day Years [...] Dispensed Refills Start Date End Da te ketOROLAC tromethamine (ACULAR LS) 0.4 % drops Place 1 Drop into the left eye 4 times daily. Start three days prior to surgery, and continue until gone 5 mL 1 09/21/2019 10/08/2019 documented in this encounter Miscellaneous Notes * Telephone Encounter - Leroy Combs RN - 09/21/2019 1210 EST Okay to change to 0.4%. Send to [facility]. Same directions. Leroy Combs RN 09/21/2019 12:11 * Telephone Encounter - Kera Concepcion RN - 09/20/2019 1658 EST Message left on Dr. Simpson's desk. * Telephone Encounter - Agustina Eric - 09/20/2019 1042 EST Hope from [facility]'s pharmacy called. They do not have ketorolac .5%- its on backorder. They DO have .4% or replace with something else documented in this encounter Plan of Treatment Upcoming Encounters Date Type Department Care Team (Late st Contact Info) Description 04/30/2024 13:00 EDT Office Visit [facility] Ophthalmology - [facility] [address] [place], [place] [phone] Anjum Miranda MD 111 [facility], [address] [place] [address] documented as of this encounter Visit Diagnoses Not on filedocumented in this encounter Discontinued Medications Medication Sig Discontinue Reason Start Date End Da te ketOROLAC (ACULAR) 0.5 % ophthalmic solution Place 1 Drop into the left eye 4 times daily. Start three days prior to surgery, and continue until gone 09/15/2019 09/21/2019 documented as of this encounter Care Teams Pbx Teacher Relationship Specialty Start Date End Date Karo Otero MD [address] [place] [address] PCP - General 01/07/18 04/06/23 documented as of this encounter
--- OUTSIDE RECORDS SUMMARY | 2024-03-10 10:55 | XMS_ITS | Encounter Summary ---
Author Organization [facility] Address [address] [place] [address] Care Team Providers Care Dress Operator Name Role Phone Karo Otero MD Primary Care Provider [phone] Blanco Myles MD Primary Care Provider [phone] Encounter Details Date Type Department Care Team (Late st Contact Info) Description 09/21/2020 Lab Requisition [facility] Pathology & Laboratory Medicine - [address] [address] Outr Resulting Lab, Provider Social History Tobacco [...] Info) Description 04/30/2024 13:00 EDT Office Visit [facility] Ophthalmology - [facility] [address] [place], [place] [phone] Anjum Miranda MD 111 [facility], [address] [place] [address] documented as of this encounter Procedures Procedure Name Priority Date/Time Associated Diagnosis Comments PSA TOTAL, DIAGNOSTIC Routine 09/21/2020 8:00 EST documented in this encounter Results * PSA TOTAL, DIAGNOSTIC (09/21/2020 8:00 EST) PSA 0.4 0.0 - 6.5 ng/mL 09/21/2020 22:22 EST [facility] Blood VENOUS BLOOD / Unknown 09/21/2020 8:00 EST 09/21/2020 20:24 EST Narrative [facility] - 09/21/2020 22:22 EST NOTE: Serum PSA concentration should not be interpreted as absolute evidence for the presence or absence of malignant disease. Assayed on Siemens ADVIA Centaur XPT using chemiluminescent technology.??Values obtained by using different assay methods cannot be used interchangeably. Provider Outr Resulting Lab CHEMISTRY & BLOOD GAS ORDERABLES [facility] [address] [place] [address] documented in this encounter Visit Diagnoses Not on filedocumented in this encounter Care Teams Dress Operator Relationship Specialty Start Date End Date Karo Otero MD [address] [place] [address] PCP - General 01/07/18 04/06/23 Blanco Myles MD [address] [facility] [address] [place] [address] PCP - General Emergency Medicine 04/07/23 documented as of this encounter
--- OUTSIDE RECORDS SUMMARY | 2024-03-10 10:55 | XMS_ITS | Encounter Summary ---
Author Organization 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 Operating Room [address] [place] [address] Dick Tamayo MD [address] [address] Sophia Mckeon AA [address] [address] Anesthesia Record Procedure Summary Procedure Name Responsible Anesthesiologist Anesthesia Start Time Anesthesia Stop Time Cataract Extraction w/IOL Implant, LEFT EYE (Left: Eye) Dick Tamayo MD 09/29/19 1422 09/29/19 1454 Events Date Time Event Comment 09/29/2019 1422 An Start The patient was re-evaluated immediately before moderate or deep sedation use, before anesthesia induction, or before the anesthesia procedure. 1422 An Start Data 1426 Anesthesia Ready 1447 an stop data 1454 An Stop 1455 Handoff to RN I completed my handoff to the receiving nurse during which we: 1. Identified the patient 2. Identified the responsible provider 3. Reviewed the pertinent medical history 4. Discussed the surgical course 5. Reviewed intra-op anesthesia management and issues during anesthesia 6. Set expectations for post-procedure period 7. Allowed opportunity for questions and acknowledgement of understanding. Meds Name Total midazolam (VERSED) injection 1 mg/mL 2 m g lactated ringers (LR) infusion 100 mL * Agents Name O2 N2O Air * Blood No blood administrations on file. Lines, Drains, and Airways Type Details Placement Removal Peripheral IV 09/29/19; 1300; Righ t, Dorsal; Hand; Inserted by RN; 1; None; 3.15% Chlorhexidine with IPA; 09/29/19; 1510; Discharged, Therapy completed; Catheter intact, Dressing applied 09/29/19 1300 by Carolynn Olivia, MANAN 09/29/19 1510 by Shannan Moffett RN Wound 09/29/19; 1438; Inci rashard; Left; Eye; Full thickness; 10/14/19; 1219 09/29/19 1438 by Roddy Alberto, MANAN 10/14/19 1219 by Ambrose Phipps RN documented in this encounter Social History [...] OR Notes * Anesthesia Postprocedure Evaluation - Sophia Mckeon AA - 09/29/2019 1144 EST Patient: Tra Brothers III Last Vitals Vital signs were reviewed with the recovery nurse and are available in the Epic flowsheets. Relevant recent vitals: ]WNL Last Pain Score - Numeric Pain Level (Scale 1-10): 0 Type of Anesthesia - MAC Anesthesia Post Evaluation Post-procedure vitals reviewed and are stable. Level of consciousness: alert and oriented and awake Temperature status: normothermia Respiratory status: airway patent Cardiovascular status: acceptable Hydration status: adequate Nausea/Vomiting: none Pain management: adequate Post-Op Assessment: patient tolerated procedure well with no complications and patient satisfied with anesthesia care Patient participation: able to participate Disposition: outpatient/home Anesthesia Complications: No apparent anesthesia complications * Anesthesia Preprocedure Evaluation - Davi Chaves MD - 09/29/2019 1356 EST Anesthesia Preprocedure Evaluation Patient Medical History, including Anesthesia History reviewed. Chart and Nursing Notes reviewed, including NPO status and Medication History. Additional ROS/History Findings: Allergies Allergen Reactions ??? Percocet [Oxycodone-Acetaminophen] Nausea And Vomiting Review of Systems Past Medical History: Diagnosis Date ??? Anemia [...] Hyperlipidemia 09/22/19 - controlled with med ??? Post PTCA 2018 ??? S/P PTCA (percutaneous transluminal coronary angioplasty) 11/2017 Relevant Problems Anesthesia (-) Motion sickness (-) PONV (postoperative nausea and vomiting) (-) Pre-operative anxiety (-) Sleep apnea PULMONARY (-) Asthma (-) Chronic obstructive pulmonary disease (HCC-CMS) (-) Recent URI (-) Sleep apnea CARDIOVASCULAR (+) Coronary artery disease without angina pectoris (+) HTN (hypertension) (+) Stented coronary artery (-) CHF (congestive heart failure) (HCC-CMS) GASTROINTESTINAL (-) Gastroesophageal reflux disease ENDO/GI (-) Diabetes mellitus type 1 (HCC-CMS) (-) Diabetes mellitus, type 2 (HCC-CMS) Physical Exam Airway Mallampati: II TM distance: >3 FB Neck ROM: full Cardiovascular - normal exam Rhythm: regular Rate: normal Dental (+) implants Pulmonary - normal exam Abdominal Anesthesia Plan ASA 3 Anesthesia Type - MAC Block for post-op pain? No Anesthesia plan and risks discussed. Informed consent obtained from patient. Code status discussed? No H&P not reviewed PAT Note (Notes from 08/30/19 through 09/29/19) No notes of this type exist for this encounter. documented in this encounter Plan of Treatment Upcoming Encounters Date Type Department Care Team (Late st Contact Info) Description 04/30/2024 13:00 EDT Office Visit [facility] Ophthalmology - [address] [address] Anjum Miranda MD [address] [place] [address], [address] [place] [address] documented as of this encounter Visit Diagnoses Not on filedocumented in this encounter Administered Medications Inactive Administered Medications - up to 3 most recent administrations Medication Order MAR Action Action Date Dose Rate Site lactated ringers (LR) infusion 30 mL/hr, intravenous, CONTINUOUS, Starting on Fri09/29/19 at 1300, Until Fri09/29/19 at 1710, Routine, Preprocedure Continued by Anesthesia 09/29/2019 14:26 EST New Bag 09/29/2019 13:21 EST 30 mL/hr 30 mL/hr midazolam (PF) (VERSED) injection intravenous, PRN, Starting on Fri09/29/19 at 1429, Until Fri09/29/19 at 1454, Routine, Anesthesia Intraprocedure Given 09/29/2019 14:29 EST 2 mg documented in this encounter Orders Medications Ordered That Blayne ht Not Have Been Administered Count Last Ordered Date First Ordered Date midazolam (PF) (VERSED) injection 1 020 documented in this encounter Care Teams Winery Cellar Hand Relationship Specialty Start Date End Date Karo Otero MD [address] [place] [address] PCP - General 01/07/18 04/06/23 documented as of this encounter
--- OUTSIDE RECORDS SUMMARY | 2024-03-10 10:55 | XMS_ITS | Encounter Summary ---
Author Organization [facility] Address [address] [place] [address] Care Team Providers Care Unified Communications Engineer Name Role Phone Karo Otero MD Primary Care Provider [phone] Reason for Visit * Reason Comments Eye Problem Encounter Details Date Type Department Care Team (Late st Contact Info) Description 12/28/2019 14:30 EDT Office Visit [facility] Ophthalmology - [address] [phone] Mu Acosta MD [address] [place] [address], [address] [place] [address] Social History Tobacco Use Types [...] Progress Notes * Mu Acosta MD - 12/28/2019 1430 EDT Chief Complaint Patient presents with ??? Eye Problem Comments S/p CE/IOL right eye, amblyopia left eye. Pt reports worse vision left eye x 6 weeks, looks like a cloud moving across vision at times. Can see through it but it's cloudy. No floaters or flashes. No trauma recalled. Right eye seems fine, using OTC readers at this time. HPI The patient is a 79 y.o. male presents for acute visit with complaint of 6 weeks for blurred visionleft eye. History of amblyopia left eye, but notes vision OS is not as good as after cataract surgery in October. Recent HbA1c: Lab Results Component Value Date HGBA1C 5.4 01/08/2018 Right Eye: NL Left Eye: Blurred Vision Visual Aid: Glasses(OTC) Current Rx Age Location: Left eye Pain: 0 - No pain Quality: Severity: Duration: Weeks Timing: Constant Lasts: Continuous Context: Sac across vision of left eye Modifying factors: Began about 6 weeks ago Associated Signs & Symptoms: No flashes or floaters Attestation: ROS Constitutional: NL ENT/Mouth NL Cardiovascular: High Blood Pressure Respiratory: NL Gastrointestinal: NL Genitourinary: NL Musculoskeletal: NL Integumentary: NL Neurologic: NL Psychiatric: NL Endocrine: NL Hematologic: Immunologic: NL Special Equipment Technician: Exposures: None Other: Attestation: Allergies include: Percocet [oxycodone-acetaminophen] Patient Active Problem List Diagnosis ??? 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 HTN (hypertension) ??? Acute blood loss anemia ??? Combined forms of age-related cataract of both eyes ??? Stented coronary artery ??? Coronary artery disease without angina pectoris Outpatient Medications Marked as Taking for the 12/28/19 encounter (Office Visit) with Mu Acosta MD [...] (Snellen - Linear) Right Left Dist sc 20/20 20/80 -2 Dist ph sc 20/40 Tonometry (Applanation, 14:18) Right Left Pressure 14 14 Extraocular Movement Right Left Full Full Neuro/Psych Oriented x3: Yes Mood/Affect: Normal Dilation Left eye: Paremyd @ 14:18 Slit Lamp and Fundus Exam Slit Lamp Exam Right Left Lids/Lashes Normal Normal Conjunctiva/Sclera White and quiet White and quiet Cornea Clear Clear Anterior Chamber Deep and quiet Deep and quiet Iris Round and reactive, dilated Lens Posterior chamber intraocular lens Posterior chamber intraocular lens, 2+ Posterior capsular opacification Vitreous Normal Posterior vitreous detachment Fundus Exam Right Left Disc Normal C/D Ratio 0.2 Macula Normal Vessels Normal Periphery Normal Refraction Manifest Refraction Sphere Cylinder Dist VA Right Left -0.75 Sphere 20/30 DIAGNOSTIC TESTS: IMPRESSION & PLAN: Tra was seen today for eye problem. Diagnoses and all orders for this visit: Posterior capsular opacification, left: likely cause of described symptom, in concert with PVD and amblyopia as well as residual refractive error. OCT normal to suggest against retinal pathology. Discussed r/b/a of YCL OS, and patient agrees to proceed. Bilateral pseudophakia: stable Amblyopia, left: effecting present vision, but vision presently measures worse than at last visit, suggesting interval change. Posterior vitreous detachment, left: complaints c/w PVD, No evidence of RT/RD. Pt counseled on condition and advised to follow up should severe flashes or floaters develop. Other orders - OCT, RETINA - OS - LEFT EYE I have reviewed the patient's past medical, [...] Info) Description 04/30/2024 13:00 EDT Office Visit [facility] Ophthalmology - [address] [address] Anjum Miranda MD [address] [place] [address], [address] [place] [address] documented as of this encounter Visit Diagnoses Diagnosis Posterior capsular opacification, left- Primary After-cataract, unspecified Bilateral pseudophakia Lens replaced by other means Amblyopia, left Posterior vitreous detachment, left documented in this encounter Eye Exam Visual Acuity (Snellen - Linear) Right eye Left eye Dist sc 20/20 20/80 -2 Dist ph sc 20/40 Tonometry (Applanation, 14:18) Right eye Left eye Pressure 14 14 Extraocular Movement Right eye Left eye Full Full Neuro/Psych Oriented x3: Yes Mood/Affect: Normal Dilation Left eye: Paremyd @ 14:18 Slit Lamp Exam Right eye Left eye Lids/Lashes Normal Normal Conjunctiva/Sclera White and quiet White and shon et Cornea Clear Clear Anterior Chamber Deep and quiet Deep and quiet Iris Round and reactive, dilated Lens Posterior chamber in traocular lens Posterior chamber intraocular lens, 2+ Posterior capsular opacification Vitreous Normal Posterior vitreo us detachment Fundus Exam Right eye Left eye Disc Normal C/D Ratio 0.2 Macula Normal Vessels Normal Periphery Normal Manifest Refraction Sphere Cylinder Dist VA Right eye Left eye -0.75 Sphere 20/30 Care Teams Unified Communications Engineer Relationship Specialty Start Date End Date Karo Otero MD [address] [place] [address] PCP - General 01/07/18 04/06/23 documented as of this encounter
--- OUTSIDE RECORDS SUMMARY | 2024-03-10 10:55 | XMS_ITS | Encounter Summary ---
Author Organization 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 [H25.813] Procedures AR XCAPSL CTRC RMVL INSJ IO LENS PROSTH W/O ECP Cataract Extraction w/IOL Implant, LEFT EYE Referral ID Status Reason Start Date Expiration Date Visits Re quested Visits Authorized [id number] 1 1 Encounter Details Date Type Department Care Team (Late st Contact Info) Description 09/29/2019 13:25 EST - 09/29/2019 14:10 EST Surgery [facility] Operating Room [address] [place], [place] [address] Mu Acosta MD [address] [facility], [address] [place] [address] Cataract Extraction w/IOL Implant, LEFT EYE [09727 (CPT??)] Surgery Details Date/Time Status Location OR Service Patient Class Case Class Case Type Trauma Case? 09/29/19 1325 Posted [facility] Outpatient Surgery H - Elective Panel 1 Procedure LRB Anes Op Region Wound Class Comments Cataract Extraction w/IOL Implant, LEFT EYE Left Monitored Anesthesia Care Eye Class I/ Clean [...] Sign Reading Time Taken Comments Blood Pressure 158/92 09/29/2019 1247 EST Pulse - - Temperature 36.2 ??C (97.2 ??F) 09/29/2019 1247 EST Respiratory Rate 16 09/29/2019 1247 EST Oxygen Saturation 98% 09/29/2019 1247 EST Inhaled Oxygen Concentration - - Weight [...] Code Departure Means Destination Home or Self Correction documented in this encounter H&P Notes * [...] Acosta MD 09/29/2019 14:05 Source Note - AFFILIATE MARKETING COORDINATOR, SCAN 2 - 09/23/2019 11:20 EST documented in this encounter OR Notes * OR Surgeon - Mu Acosta MD - 09/29/2019 2251 EST Preoperative diagnosis: combined senile cataract, left eye Postoperative diagnosis: Same as above Procedure: Phacoemulsification with intraocular lens implantation, left eye Surgeon: Mu Acosta MD Clarifier Operator Helper: ROBBIN Shah Anesthesia: Local with monitored anesthesia [...] Info) Description 04/30/2024 13:00 EDT Office Visit [facility]mology - [address] [address] Anjum Miranda MD [address] [place] [address], [address] [place] [address] documented as of this encounter Procedures Procedure Name Priority Date/Time Associated Diagnosis Comments IMPLANT RECORD - SCANNED 10/05/2019 22:25 EST EXTRACTION, CATARACT, EXTRACAPSULAR, WITH IOL INSERTION 09/29/2019 14:17 EST Combined forms of age-related cataract of both eyes documented in this encounter Results * IMPLANT RECORD - SCANNED (10/05/2019 22:25 EST) 10/05/2019 22:2 5 EST Scan 2 Stock Checker PROCEDURE/MINOR AUDI GICAL ORDERABLES documented in this encounter Visit Diagnoses Diagnosis Stented coronary artery Postsurgical percutaneous transluminal coronary angioplasty status Coronary artery disease without angina pectoris Combined forms of age-related cataract of both [...] solution (BSS PLUS) As needed, Starting on Fri09/29/19 at 1430, Until Fri09/29/19 at 1434, Routine, Intraprocedure Given 09/29/2019 14:30 EST 500 mL Left Eye chondroitin-sodium hyaluronate (VISCOAT) ophthalmic solution As needed, Starting on Fri09/29/19 at 1432, Until Fri09/29/19 at 1434, Routine, Intraprocedure Given 09/29/2019 14:32 EST 1 Each Left Eye cyclopentolate (CYCLOGYL) 2 % ophthalmic solution 1 [...] Until Fri09/29/19 at 1710, Routine, Recovery (only) lidocaine (PF) 10 mg/mL (1 %) injection As needed, Starting on Fri09/29/19 at 1432, Until Fri09/29/19 at 1434, Routine, Intraprocedure Given 09/29/2019 14:32 EST 1 mL Left Eye moxifloxacin (VIGAMOX) 0.5 % ophthalmic solution 1 Drop 1 Drop, left eye, PREOP LINKED EYE MEDS-SEE ADMIN INSTRUCTIONS, 3 doses, First dose on Fri09/29/19 at 1300, Last dose on Fri09/29/19 at 1310, Routine, Preprocedure Given 09/29/2019 13:04 EST 1 Drop Given 09/29/2019 13:03 EST 1 Drop Given 09/29/2019 13:02 EST 1 Drop moxifloxacin (VIGAMOX) 0.5 % ophthalmic solution As needed, Starting on Fri09/29/19 at 1433, Until Fri09/29/19 at 1434, Routine, Intraprocedure Given 09/29/2019 14:33 EST 1 Drop phenylephrine (MYDFRIN) 2.5 % ophthalmic solution 1 Drop 1 Drop, left eye, PREOP LINKED EYE MEDS-SEE ADMIN INSTRUCTIONS, 3 doses, First dose on Fri09/29/19 at 1300, Last dose on Fri09/29/19 at 1310, Routine, Preprocedure Given 09/29/2019 13:17 EST 1 Drop Given 09/29/2019 13:16 EST 1 Drop Given 09/29/2019 13:15 EST 1 Drop povidone-iodine 5 % ophthalmic solution As needed, Starting on Fri09/29/19 at 1433, Until Fri09/29/19 at 1434, Routine, Intraprocedure Given 09/29/2019 14:33 EST 10 Drops proparacaine (ALCAINE) 0.5 % ophthalmic solution 1 Drop 1 Drop, left eye, PREOP LINKED EYE MEDS-SEE ADMIN INSTRUCTIONS, 1 dose, First dose on Fri09/29/19 at 1300, Routine, Preprocedure Given 09/29/2019 13:01 EST 1 Drop sodium hyaluronate (HEALON) ophthalmic injection As needed, Starting on Fri09/29/19 at 1434, Until Fri09/29/19 at 1434, Routine, Intraprocedure Given 09/29/2019 14:34 EST 10 mg Left Eye timolol (TIMOPTIC) 0.5 % ophthalmic solution As needed, Starting on Fri09/29/19 at 1434, Until Fri09/29/19 at 1434, Routine, Intraprocedure Given 09/29/2019 14:34 EST 1 Drop tropicamide (MYDRIACYL) 1 % [...] Olivia RN)1309 (Given - Provider: Carolynn Olivia, RN) ketOROLAC tromethamine (ACULAR LS) 0.4 % ophthalmic solution 1 Drop (COMPLETED) 1 Drop, left eye, PREOP LINKED EYE MEDS-SEE ADMIN INSTRUCTIONS, 3 doses, First dose on Fri09/29/19 at 1300, Last dose on Fri09/29/19 at 1310, Routine, Preprocedure 1304 (Given - Provid er: Carolynn Olivia RN)1305 (Given - Provider: Carolynn Olivia RN)1306 (Given - Provider: Carolynn Olivia, RN) moxifloxacin (VIGAMOX) 0.5 % ophthalmic solution [...] at 75 mL/hr, intravenous, CONTINUOUS, Starting on 09/29/19 at 1500, Until 09/29/19 at 1710, Routine, Recovery (only) 1500 (Canceled Entry - Provider: Batch Job User Admin - Comment: Automatically canceled at discontinue of medication order) PRN Medication Order 09/27/2019 09/28/2019 09/29/2019 balanced salt solution inrrigation solution (BSS PLUS) (CANCELED) As needed, Starting on Fri09/29/19 at 1430, Until 09/29/19 at 1434, Routine, Intraprocedure 1430 (Given - Provid er: Mu Acosta MD - Comment: BSS Plus [id number] BSS Part II [id number]) chondroitin-sodium hyaluronate (VISCOAT) ophthalmic solution (CANCELED) As needed, Starting on 09/29/19 at 1432, Until 09/29/19 at 1434, Routine, Intraprocedure 1432 (Given - Provid er: Mu Acosta MD - Comment: [id number]) lidocaine (PF) 10 mg/mL (1 %) injection (CANCELED) As needed, Starting on 09/29/19 at 1432, Until 09/29/19 at 1434, Routine, Intraprocedure 1432 (Given - Provid er: Mu Acosta MD - Comment: [id number]) moxifloxacin (VIGAMOX) 0.5 % ophthalmic solution (CANCELED) [...] needed, Starting on Fri09/29/19 at 1434, Until Fri09/29/19 at 1434, Routine, Intraprocedure 1434 (Given - Provid er: Marina Meléndez, [facility]) documented in this encounter Orders Medications Ordered That Blayne ht Not Have Been Administered Count Last Ordered Date First Ordered Date acetaminophen (TYLENOL) solu tion unit dose cup 650 mg 1 09/29/2019 acetaminophen (TYLENOL) tablet 650 mg 1 07/2020 atropine 0.1 mg/mL syringe 0.5 mg 1 020 lactated ringers (LR) infusion 1 09/29/2019 lidocaine (PF) 10 mg/mL (1 % ) injection 2 mg 1 09/29/2019 naloxone (NARCAN) injection 0.2 mg 1 2019 ondansetron (PF) (ZOFRAN) injection 4 mg 1 09/29/2019 Transfer Count Last Ordered Date First Orde red Date NON-TEACHING SERVICE 1 09/29/2019 Discharge Count Last Ordered Date First Orde red Date DISCHARGE PATIENT 1 09/29/2019 documented in this encounter Care Teams Executive Director Of Marketing Relationship Specialty Start Date End Date Karo Otero MD [address] [place] [phone] PCP - General 01/07/18 04/06/23 documented as of this encounter
--- OUTSIDE RECORDS SUMMARY | 2024-03-10 10:56 | XMS_ITS | Encounter Summary ---
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, subsequent encounter Procedures FEMUR 2 OR MORE VIEWS Mauricio Dodson MD MSc [facility] [address] [place] [phone] Referral ID Status Reason Start Date Expiration Date V isits Requested Visits Authorized [id number] New Request 01/30/2018 1 1 Reason for Visit * Reason Onset Date Comments Leg Injury 01/30/2018 Encounter Details Date Type Department Care Team (Late st Contact Info) Description 01/30/2018 Orders Only [facility] Orthopedic Trauma - [address] [address] Mauricio Dodson MD MSc [facility] [address] [place] [phone] 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, subsequent encounter (Primary Dx) Social History Tobacco Use Types Packs/Day Years [...] Info) Description 04/30/2024 13:00 EDT Office Visit [facility] Ophthalmology - [address] [phone] Anjum Miranda MD [address] [facility], [address] [place] [phone] documented as of this encounter Procedures Procedure Name Priority Date/Time Associated Diagnosis Comments FEMUR 2 OR MORE VIEWS Routine 02/02/2018 10:33 EDT 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 2 views of the right femur were obtained Compare examination January 09, 2018 FINDINGS: There has been interval removal of the skin rene and interval resolution of the soft tissue air. The internally fixed periprosthetic fracture of the mid to distal shaft of the femur is stable in alignment. No significant interval healing is identified. Incompletely evaluated is the total knee arthroplasty. There are mild degenerative changes in the hip. 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 2 views of the right femur were obtained Compare examination January 09, 2018 FINDINGS: There has been interval removal of the skin rene and interval resolution of the soft tissue air. The internally fixed periprosthetic fracture of the mid to distal shaft of the femur is stable in alignment. No significant interval healing is identified. Incompletely evaluated is the total knee arthroplasty. There are mild degenerative changes in the hip. 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
--- OUTSIDE RECORDS SUMMARY | 2024-03-10 10:56 | XMS_ITS | Encounter Summary ---
Author Organization 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, initial encounter Maciej Dawkins MD [facility] [address] [phone] Mauricio Dodson MD [facility] [address] [place] [phone] Referral ID Status Reason Start Date Expiration Date V isits Requested Visits Authorized [id number] Closed Specialty Services Required 01/17/2018 1 1 Encounter Details Date Type Department Care Team (Latest Contact Info) Description 02/02/2018 10:30 EDT Post-op Visit [facility] Joint Program - [address] [place] [address] Mauricio Dodson MD MSc [facility] [address] [place] [phone] 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 As you know, this 77-year-old gentleman sustained a right distal femur periprosthetic fracture above a revised total knee replacement. He was treated with a lateral locked plate. Today, he comes in with no new complaints. He is able to ambulate with a walker while placing only 25 pounds on the right leg. He denies any fevers or chills. He is doing physical therapy for knee range of motion. On exam, Tra ambulated today with a limp. Both incisions were well healed with no sign of infection. He was neurovascularly intact. Knee range of motion was 0 to 90. The knee was slightly swollen.He was able to demonstrate good strength of hip flexion 4+/5. Today, I reviewed Tra's x-rays from today, which demonstrate the periprosthetic fracture healingin good position with no hardware complications. At this point, I advised Tra to continue with his PT. He should protect his weightbearing as is for another month. He will see me back for followup in 1 month with new x-rays of the right femur. All of his questions were answered and he was pleased with our interaction today. 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 Medication Sig Dispensed Refills Start Date End Date cyanocobalamin (VITAMIN B-12) 500 mcg tablet Take 1 Tablet by mouth daily. docosahexanoic acid/epa (FISH OIL ORAL) Take by mouth daily. added in this encounter Care Teams Carpet Cleaner Relationship Specialty Start Date End Date Karo Otero MD [address] [place] [phone] PCP - General 01/07/18 04/06/23 documented as of this encounter
--- OUTSIDE RECORDS SUMMARY | 2024-03-10 10:56 | XMS_ITS | Encounter Summary ---
Author Organization [facility] Address [address] [place] [address] Care Team Providers Care Chemical Compounder Helper Name Role Phone Karo Otero MD Primary Care Provider [phone] Reason for Visit * Reason Comments Knee Pain right Encounter Details Date Type Department Care Team (Latest Contact Info) Description 06/10/2018 10:30 EDT Office Visit [facility] Total Joint Program - [address] [address] Mauricio Dodson MD MSc [facility] [address] [place] [phone] Periprosthetic fracture around internal prosthetic right [...] as of this encounter Discharge Diagnoses Diagnosis S72.8X1D Other fracture of right femur, subsequent encounter for closed fracture with routine healing-S72.8X1D[ICD-10-CM] Z96.651 Presence of right artificial knee joint-Z96.651[ICD-10-CM] documented in this encounter Discharge Disposition Disposition Code Departure Means Destination Auto Discharge documented in this encounter Progress Notes * Mauricio Dodson MD - 06/10/2018 1030 EDT [address]o [address] Dr Otero: It was a pleasure to reassess Tra in our orthopedic clinic today. As you know, this 77-year-old gentleman sustained a right femur periprosthetic fracture above his right total knee revision components. He was taken to the operating room for open reduction and internal fixation at the end of December 2017. Today, he comes in with no new complaints. He has minimal pain. He can ambulate without a cane, but uses the cane outdoors. He denies any fevers or chills. He has been doing lots of therapy. On exam, Tra ambulated today without a limp. The incisions were well healed with no sign of infection. He was neurovascularly intact. Minimal knee swelling. Knee range of motion was 0 to 125. Slight varus/valgus laxity. Good quadriceps strength. Today, I reviewed Tra's x-rays, which demonstrate periprosthetic fracture healing in good position with no hardware complications. No loosening of the total knee components. I am very pleased with Tra's progress today. At this point, he should continue doing his exercises. He should continue to use the cane while outdoors for balance. All of his questions were answered and he was pleased with our interaction today. I will see him back for followup in 6 months with new x-rays of the right knee and the right femur. 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
--- OUTSIDE RECORDS SUMMARY | 2024-03-10 10:56 | XMS_ITS | Encounter Summary ---
Author Organization [facility] Address [address] [place] [address] Care Team Providers Care Right Of Way Appraiser Name Role Phone Karo Otero MD Primary Care Provider Reason for Referral * Radiology Services (Routine) - New Request Specialty Diagnoses / Procedures Referred By Contac t Referred To Contact Diagnoses Pain in right femur Procedures FEMUR 2 OR MORE VIEWS Mauricio Dodson MD MSc [address] [address] Referral ID Status Reason Start Date Expiration Date V isits Requested Visits Authorized [id number] New Request 06/08/2018 1 1 Reason for Visit * Reason Onset Date Comments Other 06/08/2018 Encounter Details Date Type Department Care Team (Late st Contact Info) Description 06/08/2018 Orders Only [facility] Total Joint Program - [address] [place] [address] Mauricio Dodson MD MSc [facility] [address] [place] [phone] Pain in right femur (Primary Dx) Social History Tobacco Use Types [...] Info) Description 04/30/2024 13:00 EDT Office Visit [facility] Ophthalmology - [address] [address] Anjum Miranda MD [address] [facility], [address] [place] [address] documented as of this encounter Procedures Procedure Name Priority Date/Time Associated Diagnosis Comments FEMUR 2 OR MORE VIEWS Routine 06/10/2018 10:35 EDT Pain in right femur documented in this encounter Results * FEMUR 2 OR MORE VIEWS (06/10/2018 10:35 EDT) Anatomical Region Laterality Modality Other 06/10/2018 10:3 5 EDT 06/10/2018 15:28 EDT Narrative 06/10/2018 15:28 EDT HISTORY: ?? M89.8T5-Jitmk specified disorders of bone, rprjs-GMC-72; right ORIF tay Prosth fx COMPARISON: None. EXAM: FEMUR 2 OR MORE VIEWS ??06/10/2018 10:35 AM TECHNIQUE: 2 views right femur FINDINGS / IMPRESSION: 1. ??Redemonstrated plate and screw fixation of the femur spanning a comminuted diaphyseal fracture with out evidence of hardware complication. There is continued healing along the fracture line. 2. ??Redemonstrated revised knee arthroplasty with some osseous remodeling along the tibial bone prosthetic interface with suggestion of lucency surrounding the tibial bone prosthetic interface which can be seen in the setting of loosening. Procedure Note Chang Merlos MD - 06/10/2018 HISTORY: M89.0H7-Vbknv specified disorders of bone, jwduj-VSJ-38; right ORIF tay Prosth fx COMPARISON: None. EXAM: FEMUR 2 OR MORE VIEWS 06/10/2018 10:35 AM TECHNIQUE: 2 views right femur FINDINGS / IMPRESSION: 1. Redemonstrated plate and screw fixation of the femur spanning a comminuted diaphyseal fracture with out evidence of hardware complication. There is continued healing along the fracture line. 2. Redemonstrated revised knee arthroplasty with some osseous remodeling along the tibial bone prosthetic interface with suggestion of lucency surrounding the tibial bone prosthetic interface which can be seen in the setting of loosening. Mauricio Dodson MD MSc [facility] IMG DIAG NOSTIC IMAGING ORDERABLES documented in this encounter Visit Diagnoses Diagnosis Pain in right femur- Primary documented in this encounter Care Teams Right Of Way Appraiser Relationship Specialty Start Date End Date Karo Otero MD [address] [place] [address] PCP - General 01/07/18 04/06/23 documented as of this encounter
--- OUTSIDE RECORDS SUMMARY | 2024-03-10 10:56 | XMS_ITS | Encounter Summary ---
Author Organization [facility] Address [address] [place] [address] Care Team Providers Care Piping Designer Name Role Phone Karo Otero MD Primary Care Provider [phone] Reason for Visit * Reason Comments Knee Pain right Encounter Details Date Type Department Care Team (Latest Contact Info) Description 03/04/2018 15:40 EDT Office Visit [facility] Total Joint Program - [address] [address] Mauricio Dodson MD MSc [facility] [address] [place] [phone] Periprosthetic fracture around internal prosthetic right [...] Sign Reading Time Taken Comments Blood Pressure - - Pulse - - Temperature - - Respiratory Rate - - Oxygen Saturation - - Inhaled Oxygen Concentration - - Weight 88.9 kg (196 lb) 03/04/2018 1610 EDT Height 180.3 cm (5' 11) 03/04/2018 1610 EDT Body Mass Index 27.34 03/04/2018 1610 EDT documented in this encounter Functional Status Functional [...] as of this encounter Discharge Diagnoses Diagnosis M97.8XXD Periprosth fracture around other internal prosth joint, subs-M97.8XXD[ICD-10-CM] Z96.651 Presence of right artificial knee joint-Z96.651[ICD-10-CM] documented in this encounter Discharge Disposition Disposition Code Departure Means Destination Auto Discharge documented in this encounter Progress Notes * Mauricio Dodson MD - 03/04/2018 1540 EDT Karo Oter[address] Dear Dr Otero: It was a pleasure to reassess Tra in our orthopedic clinic today. As you know, this 77-year-old male sustained a right femur periprosthetic fracture above his total knee replacement. He was taken to the operating room for open reduction internal fixation in 12/2017. Today, he comes in with no new complaints. He has been walking with a walker. His pain is minimal. He continues to do physical therapy. He denies any fevers or chills. On exam, Tra ambulated today with a mild limp. The incisions were well healed with no sign of infection. He was neurovascularly intact. Slight residual knee swelling. Knee range of motion was 0 to120. Slight varus & valgus laxity. Quad strength 4+/5. Today, I reviewed Tra's x-rays, which demonstrate the fracture healing in good position with no hardware complications. I am very pleased with Tra's progress today. At this point, he should continue doing his physical therapy exercises. He should be weightbearing as tolerated with a walker. All of his questions were answered and he was pleased with our interaction today. I will see him back for followup in 3 months with new x-rays of the right femur. 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
--- OUTSIDE RECORDS SUMMARY | 2024-03-10 10:56 | XMS_ITS | Encounter Summary ---
Author Organization [facility] Address [address] [place] [address] Care Team Providers Care Restuarant Crew Worker Name Role Phone Karo Otero MD Primary Care Provider [phone] Reason for Visit * Reason Comments Hip Injury Right femur pain ' Encounter Details Date Type Department Care Team (Latest Contact Info) Description 12/09/2018 10:30 EDT Office Visit [facility] Total Joint Program - [address] [address] Mauricio Dodson MD [facility]Sc [facility] [address] [place] [address] Periprosthetic fracture around internal prosthetic [...] as of this encounter Discharge Diagnoses Diagnosis Z47.1 Aftercare following joint replacement surgery-Z47.1[ICD-10-CM] Z96.651 Presence of right artificial knee joint-Z96.651[ICD-10-CM] M25.461 Effusion, right knee-M25.461[ICD-10-CM] M17.12 Unilateral primary osteoarthritis, left knee-M17.12[ICD-10-CM] S72.91XD Unspecified fracture of right femur, subsequent encounter for closed fracture with routine healing-S72.91XD[ICD-10-CM] documented in this encounter Discharge Disposition Disposition Code Departure Means Destination Auto Discharge documented in this encounter Progress Notes * Sumeet Leon - 12/09/2018 1030 EDT CHIEF COMPLAINT: Right leg pain. Thank you Dr Otero for your kind referral of Mr Brothers to our arthroplasty practice. As you know, he is a 78-year-old male who sustained a right periprosthetic fracture above his revision total knee(status post irrigation, debridement and a 2-stage revision in [place]). We treated him with open re duction and internal fixation on 01/09/2018. He is now approximately 1 year from his surgery. He reports that at this point he has mild right-sided femur pain for which he takes Tylenol. He was quiteactive with pool exercises as well as walking. He does note that he uses walking sticks and a cane when he is in public. Otherwise he is doing quite well. He denies any fevers or chills or issues with his incision. He notes he has had a pes planovalgus deformity for which he treats with orthotics. This will bother him from time to time, but he is not interested in any further intervention. REVIEW OF SYSTEMS: Negative for other orthopedic concerns. PHYSICAL EXAMINATION: Elderly-appearing male in no acute distress. Respirations nonlabored. Gait examination: He is able to ambulate with a nonantalgic gait. Incisions over the lateral aspect of his thigh as well as anterior aspect of his knee demonstrate no erythema or drainage. There is no appreciable knee effusion. Knee range of motion was from full extension to 125 degrees of flexion. Varus and valgus stress demonstrated a slight medial and lateral joint space opening with no daisy instability. He is able to dorsiflex, plantarflex and perform a resisted straight leg raise with 5/5 strength. Sensation: Intact to light touch throughout his lower extremity. He has intact DP pulse. IMAGING REVIEWED: AP and lateral of the right femur including the knee demonstrate a well-healed fracture surrounding a revision total knee prosthesis. There is no loosening of the components. ASSESSMENT: Tra Brothers is a 78-year-old male who presents for followup of a right periprostheticfemur fracture around a revision total knee. At this point, he is recovering quite well. We advisedhim that he may pursue his activities as tolerated and should wean from ambulatory assist device sofia is able. We will have him follow up in approximately 2 years for repeat evaluation and femur film s. Dr Dodson was present for the above encounter. Attestation statement: I saw and evaluated the patient with the resident. I agree with the findingsand the plan of care as documented in the resident???s note. 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
--- OUTSIDE RECORDS SUMMARY | 2024-03-10 10:56 | XMS_ITS | Encounter Summary ---
Author Organization [facility] Address [address] [place] [address] Care Team Providers Care Bar Porter Name Role Phone Karo Otero MD Primary Care Provider [phone] Reason for Referral * Radiology Services (Routine) - New Request Specialty Diagnoses / Procedures Referred By Contac t Referred To Contact Diagnoses Right leg pain Procedures FEMUR 2 OR MORE VIEWS Mauricio Dodson MD MSc [address] [address] Referral ID Status Reason Start Date Expiration Date V isits Requested Visits Authorized [id number] New Request 03/04/2018 1 1 Reason for Visit * Reason Onset Date Comments Other 03/04/2018 Encounter Details Date Type Department Care Team (Late st Contact Info) Description 03/04/2018 Orders Only [facility] Total Joint Program - [address] [place] [address] Mauricio Dodson MD MSc [facility] [address] [place] [phone] Right leg pain (Primary Dx) Social History Tobacco Use Types [...] EDT Office Visit [facility] Ophthalmology - [address] [address] Anjum Miranda MD 111 [facility], [address] [place] [address] documented as of this encounter Procedures Procedure Name Priority Date/Time Associated Diagnosis Comments FEMUR 2 OR MORE VIEWS Routine 03/04/2018 15:24 EDT Right leg pain documented in this encounter Results * FEMUR 2 OR MORE VIEWS (03/04/2018 15:24 EDT) Anatomical Region Laterality Modality Other 03/04/2018 15:2 4 EDT 03/04/2018 16:42 EDT Narrative 03/04/2018 16:42 EDT FEMUR 2 OR MORE VIEWS ??03/04/2018 3:24 PM SIGNS AND SYMPTOMS/COMMENTS: M79.604-Pain in right leg-ICD-10; right tay prosth fx COMPARISON: Right femur radiographs dated February 02, 2018; January 09, 2018; and January 07, 2018. 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 The overall alignment is stable as is the position of the hardware without evidence of interval failure or loosening. No new fracture seen. Stable mild degenerative changes in the right hip. Soft tissues are grossly unremarkable. Procedure Note Calos Crowley MD - 03/04/2018 FEMUR 2 OR MORE VIEWS 03/04/2018 3:24 PM SIGNS AND SYMPTOMS/COMMENTS: M79.604-Pain in right leg-ICD-10; right tay prosth fx COMPARISON: Right femur radiographs dated February 02, 2018; January 09, 2018; and January 07, 2018. 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 The overall alignment is stable as is the position of the hardware without evidence of interval failure or loosening. No new fracture seen. Stable mild degenerative changes in the right hip. Soft tissues are grossly unremarkable. Mauricio Dodson MD MSc [facility] IMG DIAG NOSTIC IMAGING ORDERABLES documented in this encounter Visit Diagnoses Diagnosis Right leg pain- Primary Pain in limb documented in this encounter Care Teams Bar Porter Relationship Specialty Start Date End Date Karo Otero MD [address] [place] [address] PCP - General 01/07/18 04/06/23 documented as of this encounter
--- OUTSIDE RECORDS SUMMARY | 2024-03-10 10:56 | XMS_ITS | Encounter Summary ---
Author Organization [facility] Address [address] [place] [address] Care Team Providers Care Dimpling Machine Operator Name Role Phone Karo Otero MD Primary Care Provider [phone] Reason for Visit * Reason Comments Eye Problem Encounter Details Date Type Department Care Team (Late st Contact Info) Description 08/06/2019 9:15 EST Office Visit [facility] Ophthalmology - [address] [address] Mu Acosta MD 111 [facility], [facility] [address] [place] [address] Social History Tobacco Use Types [...] and continue until gone 1 Bottle 1 08/06/2019 09/14/2019 prednisoLONE (PRED FORTE) 1 % ophthalmic suspension Place 1 Drop into the left eye 4 times daily. Start after surgery 1 Bottle 1 08/06/2019 09/14/2019 ketOROLAC (ACULAR) 0.5 % ophthalmic solution Place 1 Drop into the left eye 4 times daily. Start three days prior to surgery, and continue until gone 1 Bottle 1 08/06/2019 09/14/2019 documented in this encounter Progress Notes * Mu Acosta MD - 08/06/2019 0915 EST Chief Complaint Patient presents with ??? Eye Problem Comments NPV today for eval of cataracts. Vision seems to be getting worse for the last year. He cannot drive at night anymore. Very hard to see in bright lights. Reading is becoming more difficult. No pain, flashes and same floaters longstanding. SHAYY: 1 year ago, [facility]. No hx of eye surg/trauma. Doesn't currently use any drops HPI The patient is a 78 y.o. male presents with complaint of night glare and feels uncomfortable because of it. Denies history of eye trauma or surgery, amblyopia or use of anticoagulation other than ASA. Not a diabetic. Notes right eye vision is better than left. Recent HbA1c: Lab Results Component Value Date HGBA1C 5.4 01/08/2018 Right Eye: Blurred Vision, Floaters Left Eye: Blurred Vision, Floaters Visual Aid: Glasses Current Rx Age Location: Both eyes Pain: 0 - No pain Quality: Blurry Severity: Moderate Duration: Months Timing: Constant Lasts: Continuous Context: PV today for eval of cataracts. Vision seems to be getting worse for the last year. He cannot drive at night anymore. Very hard to see in bright lights. Modifying factors: Reading is becoming more difficult. No pain, flashes and same floaters longstanding. Associated Signs & Symptoms: SHAYY: [address] [facility]. No hx of eye surg/trauma Attestation: ROS Constitutional: NL ENT/Mouth NL Cardiovascular: High Blood Pressure, High Cholesterol Respiratory: NL Gastrointestinal: NL Genitourinary: NL Musculoskeletal: NL Integumentary: NL Neurologic: NL Psychiatric: NL Endocrine: NL Hematologic: NL Immunologic: NL Animation Director: Exposures: None Other: Attestation: Allergies include: Patient has no known allergies. Patient Active Problem List Diagnosis ??? 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 HTN (hypertension) ??? Acute blood loss anemia Outpatient Medications Marked as Taking for the 08/06/19 encounter (Office Visit) with Mu Acosta MD Medication Sig ??? acetaminophen (TYLENOL) 500 mg tablet Take [...] tablet Take 20 mg by mouth daily. ??? temazepam (RESTORIL) 15 mg capsule Take 15 mg by mouth at bedtime as needed for Sleep. Base Eye Exam Visual Acuity (Snellen - Linear) Right Left Dist cc 20/50 -2 20/70 -2 Dist ph cc 20/40 -2 20/60 -2 Tonometry (Applanation, 9:49) Right Left Pressure 11 11 Gonioscopy Right Left Temporal TM TM Nasal TM TM Superior TM TM Inferior TM TM Pupils Dark Light Right 2.5 2 Left 2.5 2 Visual Oliva Right Left Full Full Extraocular Movement Right Left Full, Ortho Full, Ortho Neuro/Psych Oriented x3: Yes Mood/Affect: Normal Dilation Both eyes: Phenylephrine 2.5%, Tropicamide 1% @ 10:24 Additional Tests Glare Testing Off Low Medium High Right 20/50 20/50 20/50 20/60 Left 20/70 20/70 20/70 20/70 Slit Lamp and Fundus Exam Slit Lamp Exam Right Left Lids/Lashes Normal Normal Conjunctiva/Sclera White and quiet White and quiet Cornea Clear Clear Anterior Chamber mod narrow, quiet mod narrow, quiet Iris Round and reactive Round and reactive Lens 2+ Nuclear sclerosis, 1+ Cortical cataract 2+ Nuclear sclerosis, 1+ Cortical cataract, 1+ Posterior subcapsular cataract Vitreous Normal Posterior vitreous detachment Fundus Exam Right Left Disc Normal Normal C/D Ratio 0.2 0.2 Macula Normal Normal Vessels Normal Normal Refraction Wearing Rx Sphere Cylinder [place] Add Right -0.50 +0.50 155 150/3.00 Left [place] +0.50 018 150/300 Manifest Refraction Sphere Cylinder [place] Dist [place] Right -1.00 +0.50 155 20/40 Left -0.75 +0.50 020 20/40 DIAGNOSTIC TESTS: IMPRESSION & PLAN: Tra was seen today for eye problem. Diagnoses and all orders for this visit: Combined forms of age-related cataract, bilateral Visually significant both eyes Discussed risks of cataract surgery including surgical complications that may require prolonged recovery, need for additional surgery or potential loss of vision. Alternatives such as observation andrefractive trial were discussed. Expected benefits include improved vision and reduction of refractive errors, but residual refractive errors, astigmatism and presbyopia are anticipated. Recommend cataract extraction and intraocular lens implantation, left followed by right eye. IOL measurements obtained and the results interpreted. The patient will be referred to surgical scheduling. Start acular and quinolone QID 3 days prior to surgery. Dilates well, aim plano. Posterior vitreous detachment, left: No evidence of RT/RD. Pt counseled on condition and advised tofollow up should severe flashes or floaters develop. Other orders - ketOROLAC (ACULAR) 0.5 % ophthalmic solution; Place 1 Drop into the left eye 4 times daily. Startthree days prior to surgery, and continue until gone - prednisoLONE (PRED FORTE) 1 % ophthalmic suspension; Place 1 Drop into the left eye 4 times daily. Start after surgery - moxifloxacin (VIGAMOX) 0.5 % ophthalmic solution; Place 1 Drop into the left eye 4 times daily. Start three days prior to surgery, and continue until gone - CASE REQUEST OPERATING ROOM; Standing - CASE REQUEST OPERATING ROOM - CASE REQUEST OPERATING ROOM; Standing - CASE REQUEST OPERATING ROOM I have reviewed the patient's past medical, [...] Info) Description 04/30/2024 13:00 EDT Office Visit [facility] Ophthalmology - [address] [address] Anjum Miranda MD [address] [place] [address], [address] [place] [address] documented as of this encounter Procedures Procedure Name Priority Date/Time Associated Diagnosis Comments IOL MASTER/LENS STAR ONLY Routine 08/06/2019 10:57 EST Combined forms of age-related cataract, bilateral documented in this encounter Results * IOL MASTER/LENS STAR ONLY (08/06/2019 10:57 EST) Narrative POINT OF CARE [facility] - 08/06/2019 10:57 EST See scan Mu Acosta MD OPHTH ULTRASOUND POINT OF CARE [facility] documented in this encounter Visit Diagnoses Diagnosis Combined forms of age-related cataract, bilateral- Primary Posterior vitreous detachment, left documented in this encounter Discontinued Medications Medication Sig Discontinue Reason Start Date End Da te clopidogrel (PLAVIX) 75 mg tablet Take 75 mg by mouth daily. Therapy completed 08/06/2019 docusate sodium (COLACE) 100 mg capsule Take 2 Caps by mouth 2 times daily as needed for Constipation. Therapy completed 01/13/2018 08/06/2019 losartan (COZAAR) 100 mg tablet Take 1 Tab by mouth daily. Alternate therapy 01/14/2018 08/06/2019 losartan-hydrochlorothia zide (HYZAAR) 100-25 mg per tablet Take 1 Tab by mouth daily. Alternate therapy 01/15/2018 08/06/2019 traMADol (ULTRAM) 50 mg tablet Take 1 Tab by mouth every 6 hours as needed for Pain. Daily Max: 200 mg Therapy completed 01/13/2018 08/06/2019 documented as of this encounter Orders Case Request Count Last Ordered Date First Orde red Date CASE REQUEST OPERATING ROOM 2 08/06/2019 documented in this encounter Eye Exam Visual Acuity (Snellen - Linear) Right eye Left eye Dist cc 20/50 -2 20/70 -2 Dist ph cc 20/40 -2 20/60 -2 Tonometry (Applanation, 9:49) Right eye Left eye Pressure 11 11 Gonioscopy Right eye Left eye Temporal TM TM Nasal TM TM Superior TM TM Inferior TM TM Pupils Dark Light Right eye 2.5 2 Left eye 2.5 2 Visual Oliva Right eye Left eye Full Full Extraocular Movement Right eye Left eye Full, Ortho Full, Ortho Neuro/Psych Oriented x3: Yes Mood/Affect: Normal Dilation Both eyes: Phenylephrine 2.5 %, Tropicamide 1% @ 10:24 Glare Testing Off Low Medium High Right eye 20/50 20/50 20/50 20/60 Left eye 20/70 20/70 20/70 20/70 Slit Lamp Exam Right eye Left eye Lids/Lashes Normal Normal Conjunctiva/Sclera White and quiet [place] et Cornea Clear Clear Anterior Chamber mod narrow, quiet mod narrow, q uiet [place] Round and reactive Round and mani ctive Lens 2+ Nuclear sclerosis , 1+ Cortical cataract 2+ Nuclear sclerosis, 1+ Cortical cataract, 1+ Posterior subcapsular cataract Vitreous Normal Posterior vitreo us detachment Fundus Exam Right eye Left eye Disc Normal Normal C/D Ratio 0.2 0.2 Macula Normal Normal Vessels Normal Normal Wearing Rx Sphere Cylinder [place] Add Right eye -0.50 +0.50 155 150/3.00 Left eye [place] +0.50 018 150/300 Manifest Refraction Sphere Cylinder [place] Dist [place] Right eye -1.00 +0.50 155 20/40 Left eye -0.75 +0.50 020 20/40 Care Teams Dimpling Machine Operator Relationship Specialty Start Date End Date Karo Otero MD [address] [place] [address] PCP - General 01/07/18 04/06/23 documented as of this encounter
--- OUTSIDE RECORDS SUMMARY | 2024-03-10 10:56 | XMS_ITS | Encounter Summary ---
Author Organization [facility] Address [address] [place] [address] Care Team Providers Care Welding Machine Assembler Name Role Phone Karo Otero MD Primary Care Provider [phone] Encounter Details Date Type Department Care Team (Late st Contact Info) Description 01/09/2018 Results Only Imaging [facility] Total Joint Program - [address] [address] Mauricio Dodson MD MSc [facility] [address] [place] [address] Social History Tobacco Use Types Packs/Day Years [...] Info) Description 04/30/2024 13:00 EDT Office Visit [facility] Ophthalmology - [address] [id number] Anjum Miranda MD 111 [facility], [address] [place] [address] documented as of this encounter Procedures Procedure Name Priority Date/Time Associated Diagnosis Comments FEMUR 1 VIEW 01/09/2018 19:13 EDT PORT FLUORO UP TO 1 HOUR 01/09/2018 18:13 EDT documented in this encounter Results * FEMUR 1 VIEW (01/09/2018 19:13 EDT) Anatomical Region Laterality Modality Other 01/09/2018 19:1 3 EDT 01/09/2018 20:15 EDT Narrative 01/09/2018 20:15 EDT FEMUR 1 VIEW ??01/09/2018 7:13 PM Clinical History/Comments: 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 No retained surgical instruments or sponges are identified. 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 No retained surgical instruments or sponges are identified. Mauricio Dodson MD, MSc [facility] IMG DIAG NOSTIC IMAGING ORDERABLES * PORT FLUORO UP TO 1 HOUR (01/09/2018 18:13 EDT) Anatomical Region Laterality Modality Other 01/09/2018 18:1 3 EDT Narrative 01/09/2018 18:13 EDT Non Reportable Exam Procedure Note BASKET SORTER, IMAGING - 01/09/2018 Non Reportable Exam Mauricio Dodson MD, MSc [facility] IMG FLUO ROSCOPY ORDERABLES documented in this encounter Visit Diagnoses Not on filedocumented in this encounter Care Teams Welding Machine Assembler Relationship Specialty Start Date End Date Karo Otero MD [address] [place] [phone] PCP - General 01/07/18 04/06/23 documented as of this encounter
--- OUTSIDE RECORDS SUMMARY | 2024-03-10 10:56 | XMS_ITS | Encounter Summary ---
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, initial encounter Barber Dawkins MD [address] [place] [phone] Mauricio Dodson MD MSc FRCSC [address] [place] [address] Referral ID Status Reason Start Date Expiration Date V isits Requested Visits Authorized [id number] Closed Specialty Services Required 01/17/2018 1 1 Question Answer Reason for Request: s/p ORIF R periprosthetic femur fx 01/09 Expected Discharge Date (Inpatient Only): 01/13/2018 * (Routine) - Receiving Office to Obtain Authorization Specialty Diagnoses / Procedures Referred By Contac t Referred To Contact Ana Obrien NP [address] [place] [address] Referral ID Status Reason Start Date Expiration Date Visits Requested Visits Authorized [id number] Receiving Office to Obtain Authorization Specialty Services Required 8 1 1 Comments See Mauricio Dodson MD. [facility] is located at [address] [place] [address]. Call [phone] if no appointment is scheduled. 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, initial encounter Ana Obrien NP [address] [place] [phone] [facility] [place] [address] Referral ID Status Reason Start Date Expiration Date Visits Requested Visits Authorized [id number] New Request Specialty Services Required 01/13/2018 1 1 Question Answer I certify that this patient is under my care and that I, or another Medicare allowed practitioner (DO INGRID, KEREN) working with me, had a qvgh-yo-bipv encounter with this patient on this date: 01/13/2018 I further certify that the uiqr-zd-wwzl encounter was in whole or in part related to the reason the patient needs home health care. Yes The discharge summary or progress note will provide further details that support the need for the home health services and the plan of care. Yes Enter the allowed practitioner (DO INGRID, KEREN) who will provide oversight of this patient's home heatlh care needs and plan of care [place] The patient? s homebound status is related to the following diagnoses, illness or condition (describe): s/p hip fx and repair The patient has a condition due to an illness or injury that restricts the ability to leave home except with: The assistance or supervision of another person, Assistive device Assistive device Walker Leaving the home is medically contraindicated due to (reason 1): Post surgical restrictions or conditions Leaving home requires a considerable and taxing effort with mobility limited by the following (criteria 1): Post surgical or post procedure restrictions limit ambulation and activity Nursing skilled care requested: Physical Therapy Physical therapy is needed for: Evaluation, Safety, Gait/Mobility Assessment and Training, Post Surgical Expected Discharge Date (Inpatient Only): 01/13/2018 Reason for Visit * Reason Comments Leg Pain Pt arrives in transf er from OSH with reports R Femur Fx after fall from one step height. 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, initial encounter (Primary Dx); Coronary artery disease involving [place] heart with angina pectoris, unspecified vessel or lesion type ([facility]); Hypertension, unspecified type; Hyperlipidemia, unspecified hyperlipidemia type; Acute renal failure superimposed on stage 3 chronic kidney disease, unspecified acute renal failure type ([facility]); Hyponatremia Discharge Disposition: Home-Health Care Svc Social History Tobacco Use Types Packs/Day Years [...] Sign Reading Time Taken Comments Blood Pressure 145/80 01/13/2018 1053 EDT Pulse 72 01/13/2018 1053 EDT Temperature 36.3 ??C (97.3 ??F) 01/13/2018 1053 EDT Respiratory Rate 16 01/13/2018 1053 EDT Oxygen Saturation 99% 01/13/2018 1053 EDT Inhaled Oxygen Concentration - - Weight 95.3 kg (210 lb) 01/07/2018 1851 EDT Height 180.3 cm (5' 11) 01/07/2018 1851 EDT Body Mass Index 29.29 01/07/2018 1851 EDT documented in this encounter Functional Status [...] as of this encounter Discharge Diagnoses Diagnosis S72.401A Unspecified fracture of lower end of right femur, initial encounter for closed fracture-S72.401A[ICD-10-CM] M97.8XXA Periprosth fracture around other internal prosth joint, init-M97.8XXA[ICD-10-CM] D62 Acute posthemorrhagic anemia-D62[ICD-10-CM] N17.9 Acute kidney failure, unspecified-N17.9[ICD-10-CM] E87.1 HYPO-OSMOLALITY AND HYPONATREMIA[ICD-10-CM] Z79.01 intermediate manager (current) use of anticoagulants-Z79.01[ICD-10-CM] Z79.02 senior care (current) use of antithrombotics/antiplatelets-Z79.02[ICD-10-CM] Z79.82 intermediate manager (current) use of aspirin-Z79.82[ICD-10-CM] R50.84 Febrile nonhemolytic transfusion reaction-R50.84[ICD-10-CM] I25.10 Atherosclerotic heart disease of [place] coronary artery without angina pectoris-I25.10[ICD-10-CM] Z95.5 Presence of coronary angioplasty implant and graft-Z95.5[ICD-10-CM] I12.9 Hypertensive chronic kidney disease with stage 1 through stage 4 chronic kidney disease, or unspecified chronic kidney disease-I12.9[ICD-10-CM] N18.3 Chronic kidney disease, stage 3 (moderate)-N18.3[ICD-10-CM] D64.9 Anemia, unspecified-D64.9[ICD-10-CM] D69.6 Thrombocytopenia, unspecified-D69.6[ICD-10-CM] F32.9 Major depressive disorder, single episode, unspecified-F32.9[ICD-10-CM] G47.00 Insomnia, unspecified-G47.00[ICD-10-CM] Y92.007 [facility] or [facility]-Y92.007[ICD-10-CM] W17.89XA Other fall from one level to another, initial encounter-W17.89XA[ICD-10-CM] documented in this encounter Discharge Summaries * Ana Obrien NP - 01/13/2018 1112 EDT Orthopedic Discharge Summary Primary Care Provider: Karo Otero Attending Physician: Mauricio Dodson MD Admit Date: 01/07/2018 Discharge Date: 01/13/18 Disposition: Home with home health Problems and Procedures Admitting Diagnosis: Right perioprosthetic femoral shaft fracture Principal/Final Diagnosis: Right perioprosthetic femoral shaft fracture Additional Problems Managed in the Hospital Active Hospital Problems Diagnosis Date Noted ??? 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 Acute blood loss anemia 01/13/2018 ??? HTN (hypertension) Resolved Hospital Problems Diagnosis Date Noted Date Resolved No resolved problems to display. Principal Procedure: ORIF right periprosthetic femoral shaft fracture Date: 01/09/2018 Secondary Procedures: none Hospital Course Mr. Brothers is a pleasant 77 yo WM with a PMH significant for unstable angina (s/p stenting 1 month ago on plavix) and HTN (on metoprolol and losartan and HCTZ) who was injured in a fall from a deck on the day of admission. Cardiology was consulted on admission and recommended continuing his DAPT through surgery. He was taken to the OR for the above procedure which he tolerated well. He developed acute blood loss anemia requiring transfusion of 2 units of PRBC's. His H&H was stable on discharge. He was seen by PT who initially recommended MATTY, but patient progressed well enough to be able to go home with home health. On 01/13/18. Weight bearing: TTWB RLE 20 lbs DVT ppx: Lovenox 30 mg bid for 28 days after surgery Medical issues addressed during this hospital stay: CAD/HTN/HLD: recent PCI with JENNI about 7 weeks prior to admission. - continue Asa and plavix - Losartan 100 mg in hospital, HCTZ held due to hyponatremia. Pt can resume home combination bp medication on 01/15. - continue BI MANAGER metoprolol bid - cont. 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 Transition of Care Plans Condition at Discharge Good Assessment at Discharge Vital signs: Patient Vitals for the past 12 hrs: BP Pulse Heart Rate Resp Temp SpO2 O2 Device 01/13/18 1053 (!) 145/80 72 - 16 36.3 ??C (97.3 ??F) 99 % None 01/13/18 1007 (!) 180/89 - 80 BPM - - - - 01/13/18 0907 (!) 170/84 - 74 BPM - - - - 01/13/18 0559 (!) 160/74 - 75 BPM 17 36 ??C (96.8 ??F) 99 % - Discharge Medications: START taking these medications Sig acetaminophen 500 mg tablet Commonly known as: TYLENOL Take 2 Tabs by mouth every 6 hours as needed for Pain. docusate sodium 100 mg capsule Commonly known as: COLACE Take 2 Caps by mouth 2 times daily as needed for Constipation. enoxaparin 30 mg/0.3 mL injection Commonly known as: LOVENOX Inject 30 mg into the skin every 12 hours for 27 days. Quantity: 54 Syringe losartan 100 mg tablet Commonly known as: COZAAR Start taking on: 01/14/2018 Take 1 Tab by mouth daily. Quantity: 1 Tab Multivitamins with Minerals tablet tablet Start taking on: 01/14/2018 Take 1 Tab by mouth daily. polyethylene glycol 3350 17 gram packet Commonly known as: MIRALAX Start taking on: 01/14/2018 Take 17 g by mouth daily. traMADol 50 mg tablet Commonly known as: ULTRAM Take 1 Tab by mouth every 6 hours as needed for Pain. Daily Max: 200 mg Quantity: 15 Tab CONTINUE taking these medications Sig aspirin 81 mg EC tablet Take 81 mg by mouth daily. buPROPion 150 mg SR tablet Commonly known as: WELLBUTRIN SR Take 150 mg by mouth 2 times daily. clopidogrel 75 mg tablet Commonly known as: PLAVIX Take 75 mg by mouth daily. losartan-hydrochlorothiazide 100-25 mg per tablet Commonly known as: HYZAAR Start taking on: 01/15/2018 Take 1 Tab by mouth daily. metoprolol 12.5 mg Commonly known as: LOPRESSOR Take 12.5 mg by mouth 2 times daily. nitroGLYCERIN 0.4 mg SL tablet Commonly known as: NITROSTAT Place 0.4 mg under the tongue every 5 minutes as needed for Chest Pain. pravastatin 20 mg tablet Commonly known as: PRAVACHOL Take 20 mg by mouth daily. temazepam 15 mg capsule Commonly known as: RESTORIL Take 15 mg by mouth at bedtime as needed for Sleep. Results Pending at Discharge Test results still pending from this admission None Relevant Studies at Discharge none Last Lab Results at Discharge BUN: Lab Results Component Value Date BUN 14 01/13/2018 Creatinine: Lab Results Component Value Date CREATININE 1.02 01/13/2018 CBC: Lab Results Component Value Date WBC 6.06 01/13/2018 RBC 3.04 (L) 01/13/2018 HGB 9.2 (L) 01/13/2018 HCT 26.5 (L) 01/13/2018 MCV 87 01/13/2018 MCH 30.3 01/13/2018 MCHC 34.7 01/13/2018 PLT 149 01/13/2018 DIFFTYPE Automated 01/13/2018 Electrolytes: Lab Results Component Value Date NA 130 (L) 01/13/2018 K 4.6 01/13/2018 CL 100 01/13/2018 CO2 26 01/13/2018 Discharge Follow Up Appointments Scheduled with [facility] in the next 3 months No future appointments. Appointments and Procedures Recommended to Patient Follow-up appointments and procedures Appointments See Mauricio Dodson MD. [facility] is located at [address] [place] [address]. Call [phone] if no appointment is scheduled. Authorizing Provider: Ana Obrien NP Home Health Agency - Other I certify that this patient is under my care and that I, or another Medicare authorized non-physician practitioner ([place] or CAFE SERVER) or resident working with me, had a pyyu-qr-phdv encounter with this patient on this date: 01/13/2018 I further certify that the zktv-it-dqhg encounter was in whole or in part related to the reason thepatient needs home health care.: Yes The patient has had a rxsq-ev-qqyy visit by me or one of my colleagues. The discharge summary or progress note will provide further details that support the need for the home health services and the plan of care.: Yes The MD/DO who will provide oversight of this patient's home heatlh care needs and plan of care: [place] The patient???s homebound status is related to the following diagnoses, illness or condition (describe): s/p hip fx and repair Patient needs one or more of the following to leave home: The assistance or supervision of another person Assistive device Assistive device: Walker Leaving the home is medically contraindicated due to: Post surgical restrictions or conditions The following conditions illustrate the patient???s normal inability to leave home AND that leavinghome requires a considerable and taxing effort: Post surgical or post procedure restrictions limit ambulation and activity Skilled Care Requested: Physical Therapy Physical therapy is needed for: Evaluation Safety Gait/Mobility Assessment and Training Post Surgical Expected Discharge Date (Inpatient Only): 01/13/2018 Authorizing Provider: Ana Obrien NP Lorelei B Camp, NP 01/13/2018 11:12 documented in this encounter Discharge Instructions * Instructions* Sumeet Carpio DO - 01/12/2018 15:16 EDT You had anemia before you came into the hospital. Your iron studies here did not suggest iron deficiency anemia However, its hard to interpret these numbers in the setting of a recent acute inflammatory event ie your surgery. I would recommend in 1 month that your iron and CBC are checked. If you are anemic without a good reason, your primary care doctor should consider sending you for an upper and lower endoscopy. documented in this encounter Medications at Time of Discharge Medication Sig Dispensed Refills Start Date End Date acetaminophen (TYLENOL) 500 mg tablet Take 2 Tabs by mouth every 6 hours as needed for Pain. 01/13/2018 aspirin 81 mg EC tablet Take 1 Tablet by mouth daily. buPROPion (WELLBUTRIN SR) 150 mg SR tablet Take 1 Tablet by mouth 2 times daily. Multivitamins with Minerals tablet tablet Take 1 [...] mouth at bedtime as needed for Sleep. clopidogrel (PLAVIX) 75 mg tablet Take 75 mg by mouth daily. 08/06/2019 docusate sodium (COLACE) 100 mg capsule Take 2 Caps by mouth 2 times daily as needed for Constipation. 01/13/2018 08/06/2019 enoxaparin (LOVENOX) 30 mg/0.3 mL injection Inject 30 mg into the skin every 12 hours for 27 days. 54 Syringe 01/13/2018 02/09/2018 losartan (COZAAR) 100 mg tablet Take 1 Tab by mouth daily. 1 Tab 01/14/2018 08/06/2019 losartan-hydrochlorothi azide (HYZAAR) 100-25 mg per tablet Take 1 Tab by mouth daily. 01/15/2018 08/06/2019 metoprolol (LOPRESSOR) 12.5 mg Take 12.5 mg by mouth 2 times daily. 09/22/2019 traMADol (ULTRAM) 50 mg tablet Take 1 Tab by mouth every 6 hours as needed for Pain. Daily Max: 200 mg 15 Tab 01/13/2018 08/06/2019 documented as of this encounter Ordered Prescriptions Prescription Sig Dispensed Refills Start Date End Da te Multivitamins with Minerals tablet tablet Take 1 Tab by mouth daily. 01/14/2018 polyethylene glycol 3350 (MIRALAX) 17 gram packet Take 17 g by mouth daily. 01/14/2018 acetaminophen (TYLENOL) 500 mg tablet Take 2 Tabs by mouth every 6 hours as needed for Pain. 01/13/2018 traMADol (ULTRAM) 50 mg tablet Take 1 Tab by mouth every 6 hours as needed for Pain. Daily Max: 200 mg 15 Tab 01/13/2018 08/06/2019 docusate sodium (COLACE) 100 mg capsule Take 2 Caps by mouth 2 times daily as needed for Constipation. 01/13/2018 08/06/2019 enoxaparin (LOVENOX) 30 mg/0.3 mL injection Inject 30 mg into the skin every 12 hours for 27 days. 54 Syringe 01/13/2018 02/09/2018 losartan-hydrochlorothia zide (HYZAAR) 100-25 mg per tablet Take 1 Tab by mouth daily. 01/15/2018 08/06/2019 losartan (COZAAR) 100 mg tablet Take 1 Tab by mouth daily. 1 Tab 01/14/2018 08/06/2019 documented in this encounter Discharge Disposition Disposition Code Departure Means Destination Home-Health Care Svc documented in this encounter Progress Notes * Ana Obrien NP - 01/13/2018 4066 EDT Post-discharge note: Patient with rcent PCI and on DAPT (ASA 81 and Plavix). Spoke to Medicine, Dr. Lui, and patient started on Lovenox 30 mg bid for DVT ppx. Spoke to Dr. Dodson this am to update as he initially thought DAPT would be enough, but was receptive to Medicine input. Pt. Will be on Lovenox bid for 28 days after surgery and will follow up with Dr. Allen in clinic. Ana Obrien ACNP-BC 01/14/2018 11:23 Nurse Practitioner Orthopedics Pager [phone] * Danielle Sapp, PT - 01/13/[address] [facility] Physical Therapy Discontinue/Discharge Note Date of Service: 01/13/2018 Precautions: Activity as tolerated and Egg-shell touch down right LE ?? SUBJECTIVE: You lied to me, I am allowed 20# weight bearing (explained to pt that this was clarified after yesterdays PT session) OBJECTIVE: Intervention Completed Today: Physical therapist trust manager assistant provided treatment today and Time: 0820 Total treatment time: 30 minutes. Timed code treatment minutes: 30 Vital signs were monitored and were stable throughout physical therapy session. Therapeutic Activity: Transfers: pt performed sit -> stand transfer from recliner with independence, however from lower arm chair requires supervision due to posterior loss of balance Pt performed stand -> sit transfer to armchair and recliner with independence, pt does demonstrate some decreased descent speed control but correctly aligns with chair and prepares appropriately to descend. Given pts statements about 20# weight bearing, educated pt that it was not actually that much. Obtained scales, had pt place weight onto scales up to 20# which he agreed was not much weight at all. Pt amb with RW, ~40 feet, supervision assist with verbal cues to promote maintaining of weight bearing restrictions. Pt appears to be placing more than 20# weight throughout distance when given the ok to keep foot down on floor. Feel that he is only intermittently maintaining. Spoke to pt about concerns of increased weight bearing especially once home given lack of pain response when stepping on surgical LE. Stairs: Patient ascended/descended 1 steps with RW, patient required mod assist with verbal cues for sequencing and maintaining weight bearing restrictions. Pt admits to likely putting more than 20# on surgical LE. Pt plans to back up to single step to enter home, sit on kitchen chair, spin around and stand from opposite side of chair inside of home. Agree that this may be more successful than trying to hop up steps. Reinforced therapeutic exercise and provided pt with cueing to facilitate improved technique/properperformance in order to optimize outcome. Active: X10 reps Supine Ankle pumps Quad sets Gluteal Sets Hip abd/add Heel slides ER/IR ROM: Flexion: 90 degrees sitting Abduction: 25 degrees with assist and plastic bag External rotation: 25 degrees assisted Patient/Family Education: Topic: Activity pacing/Energy conservation Assistive device/technique Discharge planning Exercise Gait Precautions/protocol Safety Stairs Transfers Learner: patient Method: verbal Barriers to Learning: none noted Outcome: verbalized understanding Team Communication: The patient's status was discussed with the patient's nurse before and after the physical therapy session. Patient has been seen in physical therapy since 01/10/18 by a physical therapist and physical therapist trust manager assistant. Please refer to the physical therapy notes for specifics on the patient's functional status and treatment sessions. Relevant objective findings: AROUSAL, ATTENTION, AND COGNITION: Pt alert and oriented throughout interventions CARDIOPULMONARY: Vitals have been stable throughout PT interventions INTEGUMENTARY/ANTHROPOMETRIC CHARACTERISTICS: Dressing CDI with interventions RANGE OF MOTION AND JOINT INTEGRITY: Please refer above to Interventions Completed Today MUSCLE PERFORMANCE: Please refer above to Interventions Completed Today BALANCE, MOBILITY, AND GAIT: Please refer above to Interventions Completed Today ASSESSMENT: Physical therapy services in this setting have been discontinued secondary to: Patient has been or will be discharged from the hospital Physical Therapy Diagnosis: Patient presents with physical therapy diagnosis of impaired strength, impaired gait,impaired ROM, impaired balance, and limitations with all functional mobility and gait due to femur fracture and new weight bearing restrictions. The following activity limitations are noted: difficulty with sit to stand transfers, ambulation, stairs, and tolerance to activity resultingin an inability for the patient to participate in pre-morbid lifestyle and family activities. Physical Therapy Prognosis: Patient has made excellent gains and is now able to move adequately to return home. Treatments were focused on patient's maintaining his weight bearing status and demonstrated ability to do so. Support discharge home with family and home health PT services. Short-Term Goals: ?? N/a Long-Term Goals: 1 - 2 weeks ?? The patient will be able to transfer sit to stand and stand to sit with supervision assist from standard seat height.MET ?? The patient will be able to ambulate with supervision assist 10 feet with the least restrictive assistive device. MET ?? The patient will be able to perform stairs with minimal contact assist. DISCONTINUE ?? The patient will be independent with recommended therapeutic exercises assisted via verbal cues as needed for proper technique. MET ?? The patient/caregiver will be aware of the recommendations provided and demonstrate an appropriate technique/understanding of the recommendations. MET ?? PLAN: D/C Physical Therapy Recommended Discharge Destination: Sub-acute rehabilitation ?? Recommended Discharge Services: Physical therapy at rehabilitation facility ?? Recommended Equipment Needs: Rolling walker ?? Other recommendations: Social Work consult Primary therapist: Danielle Wolf PTA 01/13/2018 11:22 Pager: [phone] * Viviane Verduzco CSW - 01/13/2018 1010 EDT Met w/Allan this morning to check in about his preference for d/c. Allan plans to go home - he has RW & commode, but would like Pt. Called referral to [facility] for PT services. will be here 11:15 to take him home. RN, ortho aware. No other needs at this time j elvia trust officer [phone] * Barber Dawkins MD - 01/13/2018 0843 EDT Orthopaedic Surgery Progress Note Admit Date: 01/07/2018 Hospital Day: LOS: 5 days Diagnosis: Right periprosthetic femoral shaft fracture Procedure: ORIF right periprosthetic femoral shaft fracture with Blankstein 01/09 24 hour events: NAEO Subjective: Doing okay, no pain overnight, very comfortable and slept well. Frustrated that PT thinks he shouldbe NWB when the instructions were for 20lbs weight bearing on his RLE. Wants to go home and feels that he can, he may go against PT recommendations and go home when the recommend MATTY. I told him it'simportant to be safe but it's his choice. + OOB, + fl, + BM. Objective: Blood pressure (!) 160/74, pulse 73, temperature 36 ??C (96.8 ??F), temperature source Tympanic, resp. rate 17, height 180.3 cm (71), weight 95.3 kg (210 lb), SpO2 99 %. 01/12 0700 - 01/13 0659 In: 1480 [P.O.:1480] Out: 2350 [Urine:2350] RLE -REJI in place over entire extremity, left in place -Knee immobilizer -Vascular: Nonpalpable pulses, WWP -Sensory: Light touch sensation intact to superficial peroneal, deep peroneal, tibial nerves distributions. -Motor: 5/5 TA, gastroc, FHL, EHL Na/K/Cl/CO2: 130/4.6/100/26 (01/13 657) BUN/Cr/glu/ALT/AST/amyl/lip: 14/1.02/--/--/--/--/-- (01/13 657) WBC/Hgb/Hct/Plts: 6.06/9.2/26.5/149 (01/13 657) Assessment: Jazz Brothers III is a 77 y.o. male s/p ORIF right periprosthetic femoral shaft fracture with [place] 01/09. Doing well. Plan: -Pain Control -Weight Bearing: TTWB RLE; 20 lbs -DVT prophylaxis: ASA and plavix -Elevate affected extremity -Diet: regular -Dispo planning- PT rec [facility], pending placement (he would prefer to go home) -Closed with rene and dermabond Barber Dawkins Orthopedic Surgery PGY2 01/13/2018 8:43 [id number] * Emily Lui MD - 01/13/2018 0753 EDT 01/13/2018 Medicine Hospitalist Consult Progress Note Chief Complaint: prosthetic femur fracture S:doing well today, gets to go home. No pain today. Eating ok. No n/v. No cp or sob. No others concerns. O: BP (!) 160/74 (BP Cuff Location: Left arm, Patient Position: Semi fowlers) Comment: RN notified Pulse 73 Temp 36 ??C (96.8 ??F) (Tympanic) Resp 17 Ht 180.3 cm (71) Wt 95.3 kg (210 lb) SpO2 99% BMI 29.29 kg/m2 Nad, sitting up in chair, aox3, pleasant Anicteric, mmm No respiratory distress rr Soft, nt, nd No edema no carrillo Meds reviewed:in oct Labs reviewed: Bmp stable Sodium 130, stable Creatinine 1.02 Hb 9.2 A/P: 77-year-old gentleman with a past medical history of CAD, status post PCI with JENNI placement approximate 7 weeks prior to presentation, hypertension, hyperlipidemia, CKD stage III, and depression, presenting to the emergency room after a mechanical fall with subsequent prostatic femur fracture. # right periprosthetic femoral shaft fracture: s/p repair on 01.09.18 - pain and dvt prophylaxis per ortho #Anemia: 2/2 acute blood loss anemia: stable after transfusion #CAD/HTN/HLD: recent PCI with JENNI about 7 weeks prior to admission. - appreciate cardiology recommendations - cont. Asa and plavix - given elevated bp, restart BI MANAGER losartan at 100mg daily - cont. To hold HCTZ (25mg) given low sodium - cont. BI MANAGER metoprolol bid - cont. Atorvastatin At d/c please give a script for losartan 100mg x 1, to be taken on 01/14. Pt can resume home combination bp medication on 01/15. 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 Emily Lui MD, MPH Internal Medicine Hospitalist Service 01/13/2018 * Sumeet Carpio DO - 01/12/2018 1454 EDT Medicine Progress Note Service Date: 01/12/2018 Admit Date: 01/07/2018 20:04 Reason for Admission: 77 y.o. male admitted with a chief complaint of hip pain and now with a principal diagnosis of prosthetic femur fracture. 24 Hour Events: - no acute events over night Subjective/Objective Subjective Had a BM yesterday. Pain is well controlled and only a 1 out of 10. No nausea vomiting diarrhea. Nochest pain or shortness of breath. Trying to decide if he wants to go home and get home health rehab or get rehab in a local facility Review of Systems Pertinent items are noted in Subjective/HPI Objective Vital Signs Temp: [35.9 ??C (96.6 ??F)-36.4 ??C (97.5 ??F)] (), Heart Rate: [75 BPM-101 BPM] (), Resp: [16-20] (), BP: (139-181)/(67-93) (), SpO2: [96 %-100 %] () Physical Exam Gen: in NAD HEENT: NCAT, CV: RRR Pulm: CTAB with good air movement throughout, no crackles or wheezing Abdomen: soft, non-tender, non-distended Neuro: alert and oriented, answering questions appropriately Skin: no rashes or lesions Psych: normal mood and affect Ext: No pedal edema. Medications Reviewed: No changes Labs Reviewed: Imaging Reviewed: No new imaging. Assessment/Plan Assessment Patient is a very pleasant 77-year-old gentleman with a past history of CAD, status post PCI with JENNI placement approximate 7 weeks prior to presentation, hypertension, hyperlipidemia, CK D stage III, and depression, presenting to the emergency room after a mechanical fall with subsequent prostaticfemur fracture, with operative repair on 01/09/2018 he is doing well medically except for some mild hyponatremia Plan # Periprosthetic femur fracture: Postop day 2 # Anemia acute On Chronic: Anemia baseline; Ferritin 166 in setting of surgery. Would have it rechcecked as an outpatient in [facility] and if it is low, get an upper and lower endoscopy. ?? D/W Patient # CAD/HTN/HLD: Recent PCI with placement of JENNI approximately 7 weeks prior to admission; BP adequately controlled - Cardiology following, appreciate their assistance and recommendations - continue aspirin and Plavix per cardiology recommendation -Continue Holding losartan and hydrochlorothiazide for now, given renal impairment and normotension - Continue atorvastatin 80 mg by mouth daily I reviewed meds with patient's pharmacy since there is not a list prior to admit meds; pt is on metoprolol ER 12.5 BID at home (unusual regimen due to fatigue) and losartan/Hctz 100/25. Tomorrow willrstart his losartan/hctz but at half dose # Acute on chronic kidney injury: Resolved - Avoid nephrotoxins and renally dose all medications - Strict I's and O's and daily weights - Daily BMP for now # Hyponatremia: Na of 130, stable - daily BMP - strict I/O's #Thrombocytopenia: Stable Monitor with daily CBC ?? # Depression: - Continue bupropion SR 150mg PO BID ?? # Insomnia: Patient reports that he has been taking temazepam every night for one year now - temazepam 15mg PO QHS PRN ?? Discussed orthopedics resident Dr. Kurek to assume care tomorrow Sumeet Carpio DO 01/12/2018 14:54 * Sera Wolf BI MANAGER - 01/12/[address] [facility] Rehabilitation Therapy Acute Therapies [facility] Physical Therapy Encounter Note Date of Service: 01/12/2018 Subjective/Objective Subjective They told me just not to step on it too much (reinforced ESTD weight bearing) Objective Intervention completed today: Time: 0900 Total treatment time: 30 minutes. Timed code treatment minutes: 30 Vital signs were monitored and were stable throughout physical therapy session. Therapeutic Activity: Bed Mobility: pt OOB in recliner at start and end of session Transfers: pt performed sit -> stand transfer from recliner and arm chair with close supervisionassist and verbal cues for hand placement/ safety, Pt did better from recliner than from lower arm chair height. Pt performed stand -> sit transfer to recliner and armchair with supervision assist and verbal cues for hand placement/ safety to allow improved control of descent speed. Pt amb with RW, ~15 feet x 2 with seated rest period, min assist with verbal cues to promote properpacing of activity, cueing for adherence to ESTD weight bearing, pt starts strong with NWB then with increased fatigue places more weight through surgical LE. After rest period again starts strong keeping NWB then slowly reverts to more weight bearing. Attempted single step with step stool, pt with increased difficulty and unable to maintain ESTD weight bearing despite cueing. Pt able to jump up onto step with mod assist and poor balance, pt required increased assist to maintain balance. Reinforced therapeutic exercise and provided pt with cueing to facilitate improved technique/properperformance in order to optimize outcome. Active: X10 reps Supine Ankle pumps Quad sets Gluteal Sets Active Assisted/active: x10 reps Supine Hip abd/add- with plastic bag Heel slides- with plastic bag ER/IR ROM: Flexion: 90 degrees sitting Abduction: 25 degrees with assist and plastic bag External rotation: 25 degrees assisted Discussed d/c planning with pt who would prefer to discharge directly to home. At current time feelthat pt will benefit from short stay at rehab ([facility]), however pt wanting to return home and as last resort would want [facility] for [facility] due to its proximity to pts home, does not think he would go to [place]. Pt wanting to wait and see how tomorrow goes as far as mobility prior to making any decision. Patient/Family Education: Topic: Activity pacing/Energy conservation Assistive device/technique Discharge planning Exercise Gait Precautions/protocol Safety Stairs Transfers Learner: patient Method: verbal Barriers to Learning: none noted Outcome: verbalized understanding Team Communication: The patient's status was discussed with the patient's nurse before and after the physical therapy session. Assessment/Plan Assessment Pt tolerated session fairly well, limited distance of mobility due to ESTD status, pt at times not adhering to ESTD status despite ongoing cueing. Pt wanting to return home and avoid rehab setting though at this time, that would seem to be the most beneficial to this patient. Plan Continue per plan of care Recommended Discharge Destination: Rehabilitation vs Home if mobility improves Recommended Discharge Services: PT at discharge destination Recommended Equipment Needs: Rolling walker and Wheelchair Other recommendations: No other consults recommended at this time Primary Therapist: Halina Wolf PTA 01/12/2018 12:40 Pager: [phone] * Wendi Chou - 01/12/2018 1150 EDT Pt is on the fence regarding dc home with VNA services, or rehab. Friend of their's is a directorat [facility] with this being the only facility they would like listed. Referral forwarded * Barber Dawkins MD - 01/12/2018 0818 EDT Orthopaedic Surgery Progress Note Admit Date: 01/07/2018 Hospital Day: LOS: 4 days Diagnosis: Right periprosthetic femoral shaft fracture Procedure: ORIF right periprosthetic femoral shaft fracture with Blankstein 01/09 24 hour events: HypoNa, observing per Medicine Subjective: Doing okay, no pain overnight, very comfortable and slept well. + OOB, + fl, + BM yesterday. Objective: Blood pressure (!) 154/85, pulse 79, temperature 35.9 ??C (96.6 ??F), temperature source Tympanic, resp. rate 18, height 180.3 cm (71), weight 95.3 kg (210 lb), SpO2 96 %. 01/11 0700 - 01/12 659 In: 3420 [P.O.:2260; I.V.:500] Out: 2825 [Urine:2825] RLE -REJI in place over entire extremity, left in place -Knee immobilizer -Vascular: Nonpalpable pulses, WWP -Sensory: Light touch sensation intact to superficial peroneal, deep peroneal, tibial nerves distributions. -Motor: 12/20 TA, gastroc, FHL, EHL Na/K/Cl/CO2: 130/4.2/101/23 (01/11 653) BUN/Cr/glu/ALT/AST/amyl/lip: 21/1.19/108/--/--/--/-- (01/11 653) WBC/Hgb/Hct/Plts: 5.97/8.7/24.8/117 (01/13 632) Assessment: Jazz Brothers III is a 77 y.o. male s/p ORIF right periprosthetic femoral shaft fracture with [place] 01/09. Doing well. Plan: -Pain Control -Closed with rene and dermabond -Weight Bearing: TTWB RLE; 20 lbs -DVT prophylaxis: ASA and plavix -Elevate affected extremity -Diet: regular -Dispo planning- PT rec [facility], pending placement (he would prefer to go home) Barber Dawkins Orthopedic Surgery PGY2 01/12/2018 8:20 [id number] * Sumeet Carpio DO - 01/11/2018 0837 EDT Medicine Progress Note Service Date: 01/11/2018 Admit Date: 01/07/2018 20:04 Reason for Admission: 77 y.o. male admitted with a chief complaint of hip pain and now with a principal diagnosis of prosthetic femur fracture. 24 Hour Events: - no acute events over night Subjective/Objective Subjective Feeling well. No BM since Fri. Sleeping well. nO n/v/alfonso. Brief light headedness when getting to commode. Now resolved. Review of Systems Pertinent items are noted in Subjective/HPI Objective Vital Signs Temp: [35.7 ??C (96.3 ??F)-36.2 ??C (97.2 ??F)] (), Heart Rate: [82 BPM-91 BPM] (), Resp: [14-16] (), BP: (95-142)/(58-68) (), SpO2: [96 %-98 %] () Physical Exam Gen: in NAD HEENT: NCAT, CV: RRR Pulm: CTAB with good air movement throughout, no crackles or wheezing Abdomen: soft, non-tender, non-distended Neuro: alert and oriented, answering questions appropriately Skin: no rashes or lesions Psych: normal mood and affect Ext: No pedal edema. Medications Reviewed: No changes Labs Reviewed: Imaging Reviewed: No new imaging. Assessment/Plan Assessment Patient is a very pleasant 77-year-old gentleman with a past history of CAD, status post PCI with JENNI placement approximate 7 weeks prior to presentation, hypertension, hyperlipidemia, CK D stage III, and depression, presenting to the emergency room after a mechanical fall with subsequent prostaticfemur fracture, with operative repair on 01/09/2018 he is doing well medically except for some mild hyponatremia Plan # Periprosthetic femur fracture: Postop day 1 ?? # CAD/HTN/HLD: Recent PCI with placement of JENNI approximately 7 weeks prior to admission; BP adequately controlled - Cardiology following, appreciate their assistance and recommendations - continue aspirin and Plavix per cardiology recommendation - Continue metoprolol XL 12.5 mg by mouth daily -Continue Holding losartan and hydrochlorothiazide for now, given renal impairment and normotension - Continue atorvastatin 80 mg by mouth daily ?? # Acute on chronic kidney injury: Improving - Avoid nephrotoxins and renally dose all medications - Strict I's and O's and daily weights - Daily BMP for now # Hyponatremia: Na of 130, stable - daily BMP - strict I/O's # Anemia: Anemia baseline; iron studies pending. I have discussed with the patient that he needs to consider upper endoscopy and colonoscopy with his PCP if he does indeed have iron deficiency. His acute anemia, likely worsened because he remains on dual antiplatelet therapy is being treated by orthopedics. #Thrombocytopenia: Monitor with daily CBC ?? # Depression: - Continue bupropion SR 150mg PO BID ?? # Insomnia: Patient reports that he has been taking temazepam every night for one year now - temazepam 15mg PO QHS PRN ?? Discussed orthopedics resident Christofer Carpio DO 01/11/2018 8:37 * Barber Dawkins MD - 01/11/2018 0824 EDT Orthopaedic Surgery Progress Note Admit Date: 01/07/2018 Hospital Day: LOS: 3 days Diagnosis: Right periprosthetic femoral shaft fracture Procedure: ORIF right periprosthetic femoral shaft fracture with Blankstein 01/09 24 hour events: HypoNa, observing per Medicine Subjective: Doing okay, no pain overnight, very comfortable and slept well. + OOB, + fl, - BM since surgery. Objective: Blood pressure (!) 142/67, pulse 91, temperature 36.1 ??C (97 ??F), temperature source Tympanic, resp. rate 16, height 180.3 cm (71), weight 95.3 kg (210 lb), SpO2 98 %. 01/10 0700 - 01/11 0659 In: 3076.7 [P.O.:2060; I.V.:416.7] Out: 1075 [Urine:1075] RLE -REJI in place over entire extremity, left in place -Knee immobilizer -Vascular: Nonpalpable pulses, WWP -Sensory: Light touch sensation intact to superficial peroneal, deep peroneal, tibial nerves distributions. -Motor: 12/20 TA, gastroc, FHL, EHL Na/K/Cl/CO2: 130/4.4/102/20 (01/11 648) BUN/Cr/glu/ALT/AST/amyl/lip: 23/1.17/--/--/--/--/-- (01/11 648) WBC/Hgb/Hct/Plts: 12.19/8.8/25.3/142 (01/11 648) Assessment: Jazz Brothers III is a 77 y.o. male s/p ORIF right periprosthetic femoral shaft fracture with Blankstein 01/09. Doing well. Plan: -Pain Control -Closed with rene and dermabond -Weight Bearing: TTWB RLE; 20 lbs -DVT prophylaxis: ASA and plavix -Elevate affected extremity -Diet: regular -Dispo planning Barber Dawkins MD 8:24 01/11/2018 I am post-call today, so please page the on-call resident with any questions or concerns. * Sumeet Carpio DO - 01/10/2018 5959 EDT Medicine Progress Note Service Date: 01/10/2018 Admit Date: 01/07/2018 20:04 Reason for Admission: 77 y.o. male admitted with a chief complaint of hip pain and now with a principal diagnosis of prosthetic femur fracture. 24 Hour Events: - no acute events over night Subjective/Objective Subjective Feeling well. Appetite so-so. No BM for several days; since Friday. No chest pain or dyspnea. Nopain Review of Systems Pertinent items are noted in Subjective/HPI Objective Vital Signs Temp: [35.5 ??C (95.9 ??F)-36.3 ??C (97.3 ??F)] (), Heart Rate: [79 BPM-87 BPM] (), Resp: [16-25] (), BP: (95-120)/(58-78) (), SpO2: [95 %-100 %] () Physical Exam Gen: in NAD HEENT: NCAT, CV: RRR Pulm: CTAB with good air movement throughout, no crackles or wheezing Abdomen: soft, non-tender, non-distended, neuro: alert and oriented, answering questions appropriately, grossly no focal neurologic deficits on exam, although exam limited Skin: no rashes or lesions Psych: normal mood and affect Medications Reviewed: No changes Labs Reviewed: Results notable for Na 130, GFR 59 from 55 yesterday, platelets 142 Imaging Reviewed: No new imaging. Assessment/Plan Assessment Patient is a very pleasant 77-year-old gentleman with a past history of CAD, status post PCI with JENNI placement approximate 7 weeks prior to presentation, hypertension, hyperlipidemia, CK D stage III, and depression, presenting to the emergency room after a mechanical fall with subsequent prostaticfemur fracture, with operative repair on 01/09/2018 he is doing well medically except for some mild hyponatremia Plan # Periprosthetic femur fracture: Postop day 1 ?? # CAD/HTN/HLD: Recent PCI with placement of JENNI approximately 7 weeks prior to admission; BP adequately controlled - Cardiology following, greatly appreciate their assistance and recommendations - continue aspirin and Plavix per cardiology recommendation - Continue metoprolol XL 12.5 mg by mouth daily -Continue Holding losartan and hydrochlorothiazide for now, given renal impairment and normotension - Continue atorvastatin 80 mg by mouth daily ?? # Acute on chronic kidney injury: Improving - Avoid nephrotoxins and renally dose all medications - Strict I's and O's and daily weights - Daily BMP for now ?? # Hyponatremia: Na of 130 - daily BMP - strict I/O's - if not improving, consider urine studies tomorrow # Anemia/Thrombocytopenia: - will continue to monitor with daily CBC -Has anemia baseline; will check iron studies. Will need outpatient discussion of colonoscopy and upper endoscopy ?? # Depression: - Continue bupropion SR 150mg PO BID ?? # Insomnia: Patient reports that he has been taking temazepam every night for one year now - temazepam 15mg PO QHS PRN ?? Discussed orthopedics resident ?? Sumeet Carpio DO 01/10/2018 18:41 * Danielle Sapp, PT - 01/10/[address] [facility] Rehabilitation Therapy Acute Therapies [facility] Physical Therapy Initial Evaluation Note Date of Service: 01/10/2018 Reason for Referral: Evaluate and treat Precautions: Activity as tolerated and Egg-shell touch down right LE SUBJECTIVE: I really don't have much pain. Pain: Location: left LE Intensity: 2/10 Frequency: intermittent Quality: ache Aggravating factors: movement Alleviating factors: Rest, medication OBJECTIVE: PatientProfile: Patient is a 77 y.o. male admitted on 01/07/2018 secondary to 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, initial enc M97.11XA Periprosth fracture around internal prosth r knee jt, init-M97.11XA[ICD-10-CM] The [address] at [address] [id number] Pre-Op Diagnosis: Right perioprosthetic femoral shaft fracture Post-Op Diagnosis: same Procedure(s): ORIF right periprosthetic femoral shaft fracture Home environment Lives:with family Caregiver Support: Supervision Equipment Available: Rolling walker Home Environment: house Home Layout: Multi-level. Entry Stairs:1 step Patient can live on main level Prior Level of Function: Independent Services prior to admission: None Work/Leisure: Retired Medical/Surgical History: Current: Patient Active Problem List Diagnosis ??? 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 Past: History reviewed. No pertinent past medical history. Past Surgical History: Procedure Laterality Date ??? CORONARY ANGIOPLASTY WITH STENT PLACEMENT ??? TOTAL KNEE ARTHROPLASTY Bilateral Medications: Medications reviewed Arousal, Attention, and Cognition: Orientation: Oriented to person, place, and time Cardiopulmonary: BP 94/54 post standing - symptomatic BP 98/52 supine in bed post activity Integumentary/Anthropometric Characteristics: Palpation/Observation: Dressing clean and dry Range of Motion and Joint Integrity: Active Range of Motion: Upper Quarter: Left Upper Extremity: Right Upper Extremity: Cervical Spine: not formally evaluated but grossly within normal limits as noted during mobility Lower Quarter: Left Lower Extremity: RightLower Extremity: Lumbar Spine: not formally evaluated but grossly within normal limits as noted during mobility Muscle Performance: Strength: Upper Quarter: grossly at least 3/5 B based on functional mobility Left Upper Extremity: Right Upper Extremity: Cervical Spine: not formally evaluated but grossly within normal limits as noted during mobility Lower Quarter: grossly at least 4/5 based on functional mobility Left Lower Extremity: patient able to move LE across the bed independently Right Lower Extremity: LumbarSpine: not formally evaluated but grossly within normal limits as noted during mobility Sensation, Reflexes, and Nerve Integrity: Light Touch Sensation: Upper Quarter:Intact C2-T1 Lower Quarter: Intact for lower extremities Neuromotor Function/Development: No problems noted Balance, Mobility, and Gait: Balance: Balance deficits observed Patient is able to sit unsupported independently Standing requires B UE support due to weight bearing restrictions Mobility: rolling: independent supine to sit: independent sit to supine: minimal contact assist of one to left LE sit to stand: close supervision with bed elevated stand to sit: supervision bed to chair: Not evaluated chair to bed: not evaluated Gait: Not evaluated due to hypotension with symptoms Self-Care, Home Management, Work, and Leisure: Outcomes: NA Informed Consent: The patient consented to the physical therapy evaluation. The patient agrees to and understands the physical therapy treatment plan and goals. Interventions Completed Today: Physical Therapy today at: 1045 Total treatment time: 15 minutes. Timed code treatment minutes: 10 Intervention included: Therapeutic activities: Patient educated in PT findings, safety awareness, plan of care, goals, and D/C recommendations. The patient was instructed in weight bearing restrictions and impact on mobility. Patient able to perform sit to stand from bed with supervision assist to rolling walker and maintain ESTD on the left. Unable to progress beyond static standing today due to low blood pressure. Recommended to patient to stand again later today with nursing staff as well as try to eat meals seated at the edge of the bed. Patient in agreement with this plan. Patient/Family Education: Topic: Bed mobility Discharge planning Precautions/protocol Role of therapy Safety Transfers Learner: patient Method: verbal Barriers to Learning: none noted Outcome: requires assist, needs practice and verbalized understanding Team Communication: Spoke with nursing before and after PT session ASSESSMENT: Physical Therapy Diagnosis: Patient presents with physical therapy diagnosis of impaired strength, impaired gait,impaired ROM, impaired balance, and limitations with all functional mobility and gait due to femur fracture and new weight bearing restrictions. The following activity limitations are noted: difficulty with sit to stand transfers, ambulation, stairs, and tolerance to activity resultingin an inability for the patient to participate in pre-morbid lifestyle and family activities. Physical Therapy Prognosis: Patient will benefit from Physical Therapy to address above deficits and assist with d/c planning. Patient is a delightful man who was independent prior to this injury. Today he was able to move to the edge of the bed with relative ease but his standing tolerance was limited by hypotension. Given weight bearing restrictions and barrier of step into his home, recommend discharge to [facility] to allow patient time to achieve independence with kimberly to dusk endurance and mobility prior to returning home. Patient would prefer to go to a rehab closer to his home in [facility]. Short-Term Goals: ?? NA Long-Term Goals: 1 - 2 weeks ?? The patient will be able to transfer sit to stand and stand to sit with supervision assist from standard seat height. ?? The patient will be able to ambulate with supervision assist 10 feet with the least restrictive assistive device. ?? The patient will be able to perform stairs with minimal contact assist. ?? The patient will be independent with recommended therapeutic exercises assisted via verbal cues as needed for proper technique. ?? The patient/caregiver will be aware of the recommendations provided and demonstrate an appropriate technique/understanding of the recommendations. PLAN: Treatment/Intervention: Physical therapy will be provided by physical therapist and/or physical therapist trust manager assistant when medically appropriate. Frequency: daily for 3-5 times per week as determined by the patient's medical stability, toleranceto activity and progression of functional activities Intensity: 15-30 minutes per session Duration: During hospitalization Interventions may include:Therapeutic exercises, Therapeutic activities and Gait training Patient/family education: Discharge planning, Precautions, Recommendations, Role of physical therapy/rehabilitation, Safety Further Data: gait, transfers Recommended Discharge Destination: Sub-acute rehabilitation Recommended Discharge Services: Physical therapy at rehabilitation facility Recommended Equipment Needs: Rolling walker and Wheelchair Other recommendations: Social Work consult Pager: [phone] DANIELLE SAPP PT 01/10/2018 11:35 * Barber Dawkins MD - 01/10/2018 0827 EDT Orthopaedic Surgery Progress Note Admit Date: 01/07/2018 Hospital Day: LOS: 2 days Diagnosis: Right periprosthetic femoral shaft fracture Procedure: ORIF right periprosthetic femoral shaft fracture with Blankstein 01/09 24 hour events: NAEO Subjective: Doing okay, no pain overnight, very comfortable and slept well. Just had carrillo removed this morning. Has not been OOB, - BM - fl since surgery. Objective: Blood pressure 110/67, pulse 81, temperature 36.3 ??C (97.3 ??F), temperature source Tympanic, resp. rate 18, height 180.3 cm (71), weight 95.3 kg (210 lb), SpO2 97 %. 01/09 0700 - 01/10 0659 In: 4311.7 [P.O.:480; I.V.:3831.7] Out: 1470 [Urine:1270] RLE -REJI in place over entire extremity, left in place -Knee immobilizer -Vascular: Nonpalpable pulses, WWP -Sensory: Light touch sensation intact to superficial peroneal, deep peroneal, tibial nerves distributions. -Motor: 12/20 TA, gastroc, FHL, EHL Na/K/Cl/CO2: 130/4.4/102/20 (01/11 648) BUN/Cr/glu/ALT/AST/amyl/lip: 09/09.17/--/--/--/--/-- (01/11 648) WBC/Hgb/Hct/Plts: 12.19/8.8/25.3/142 (01/11 648) PT/INR/PTT: 12.1/1.0/30 (01/07 1921) Assessment: Jazz Brothers III is a 77 y.o. male s/p ORIF right periprosthetic femoral shaft fracture with Blankstein 01/09. Doing well. Plan: -Pain Control -Closed with rene and dermabond - Antibiotics: Ancefx 24 hours -Weight Bearing: TTWB RLE - 20 lbs -DVT prophylaxis: ASA and plavix -Elevate affected extremity -Diet: regular -Dispo planning Barber Dawkins MD 8:27 01/10/2018 Pager: [phone] * Viviane Verduzco CSW - 01/09/2018 1042 EDT attempted to see jazz but he was visitng w/his instant print operator. Will go by later. julia elvia trust officer [phone] * Seth Cortez MD - 01/09/2018 0942 EDT Medicine Progress Note Service Date: 01/09/2018 Admit Date: 01/07/2018 20:04 Reason for Admission: 77 y.o. male admitted with a chief complaint of hip pain and now with a principal diagnosis of prosthetic femur fracture. 24 Hour Events: - no acute events over night Subjective/Objective Subjective Patient states that he feels well this morning. He denies nausea, vomiting, or abdominal pain. No chest pain or SOB. He denies fevers or chills. Review of Systems Pertinent items are noted in Subjective/HPI Objective Vital Signs Temp: [35.2 ??C (95.4 ??F)-36.5 ??C (97.7 ??F)] (), Heart Rate: [62 BPM-66 BPM] (), Resp: [13-18] (), BP: (119-143)/(64-84) (), SpO2: [96 %-98 %] () Physical Exam Gen: in NAD HEENT: NCAT, EOMI, neck supple CV: RRR Pulm: CTAB with good air movement throughout, no crackles or wheezing Abdomen: soft, non-tender, non-distended, normal BT, no rebound or guarding appreciated on exam Neuro: alert and oriented, answering questions appropriately, grossly no focal neurologic deficits on exam, although exam limited Skin: no rashes or lesions Psych: normal mood and affect Medications Reviewed: No changes Labs Reviewed: Results notable for Na 132, creatinine 1.3, Hg b 11.4, platelets 123. Imaging Reviewed: No new imaging. Assessment/Plan Assessment Patient is a very pleasant 77-year-old gentleman with a past history of CAD, status post PCI with JENNI placement approximate 7 weeks prior to presentation, hypertension, hyperlipidemia, CK D stage III, and depression, presenting to the emergency room after a mechanical fall with subsequent prostaticfemur fracture. Plan for surgery later today. The medicine service ws consulted for preop evaluation and medical comanagement. Plan # Periprosthetic femur fracture: plan for surgery later today - Pain control and DVT prophylaxis per primary team - PT following ?? # CAD/HTN/HLD: Recent PCI with placement of JENNI approximately 7 weeks prior to admission; BP adequately controlled - Cardiology following, greatly appreciate their assistance and recommendations - continue aspirin and Plavix per cardiology recommendation - Continue metoprolol XL 12.5 mg by mouth daily - Recommend holding losartan and hydrochlorothiazide for now, given renal impairment and upcoming surgery - Continue atorvastatin 80 mg by mouth daily ?? # Acute on chronic kidney injury: - Avoid nephrotoxins and renally dose all medications - Strict I's and O's and daily weights - Daily BMP for now - NPO for surgery with IVF ?? # Hyponatremia: Na of 132 - daily BMP - currently NPO for surgery with IVF - strict I/O's - if not improving, consider urine studies tomorrow # Anemia/Thrombocytopenia: Hgb of 11.4 and platelet count of 123; stable and no evidence of bleeding; most likely secondary to fracture - will continue to monitor with daily CBC ?? # Depression: - Continue bupropion SR 150mg PO BID ?? # Insomnia: Patient reports that he has been taking temazepam every night for one year now - temazepam 15mg PO QHS PRN ? Recommendations discussed with primary team ?? Thank you for this consult and involving us in Mr. Brothers' care; we will continue to follow. Pleasepage the hospital invertebrate paleontologist with any further questions. ?? Seth Cortez MD 01/09/2018 9:42 * Sumeet Leon - 01/09/2018 0606 EDT Orthopaedic Progress Note Problem: right periprosthetic fracture Procedure: pending, plan for ORIF today with Dr. Dodson Subjective: Doing well in traction. No pain without movement. No numbness or tingling. Looking forrward to the OR today Objective: RLE Sensation: intact throughout Motor: intact in EHL, TA, GS Skin intact, traction in place Vascular: warm and well perfused, +1 DP, +2 PT Assessment: 77 year old patient with right periprosthetic femur fracture, pending OR. Plan: Weight bearing: bedrest Pain control Traction; bucks in place. 10 lbs. Every 4 hour skin breaks. Appreciate cardiology, medicine recommendations; will continue plavix throughout course PT evaluation: pending after OR DVT Ppx: held for OR, SCDs Dispo: pending Pre-operative Checklist 1. NPO MN 2. IVF NS 3. T & S with cross match for 3 units and staying 2 ahead, Hct 32 4. Peripheral IV - Needs 2 PIV's prior to OR 5. Pre-op Antibiotics - Ancef 6. Hold anticoagulation, ASA and plavix continued perioperatively, cardiology 7. Willie operative site done 8. Consent done 9. MRSA negative Sumeet Leon MD 6:06 01/09/2018 * Jelani Ba - 01/08/2018 1530 EDT Spiritual Care Note Re: Jazz Brothers III : 1940, AGE: 77 y.o. Room: [place] [id number] Jazz Brothers III who is listed as Church has received a visit from the Spiritual Care Department on 01/08/2018. Need/Assessment: - Pt is in bed/awake - Pt welcomed visit - Pt came down with broken femur - Pt fell at home - Pt is scheduled for surgery tomorrow Intervention: - Technical Buyer provided supportive listening presence and encouragement toward pt's procedure tomorrow.Offered Comm,prayer/blessing Outcome: ?? Plan of Action: No Follow up necessary - Needs met Continued Family Support Continued Support from Technical Buyer following patient Make a Referral to: Continued Support with Volunteer Visits Connect with Community Supports Ask for a consult from: Other: Visit Initiated by: Referral by computer or phone message Time: End of Life / Comfort Care / Hospice Page direct contact by pager or staff person Time: 4 Level of Visit Services Provided: Anointing of Sick x Prayer x Communion Relaxation through music Assist Advanced Directives Integrative therapies Assist Decision Making Richards and Prayer at dying Exploration of Ethical issues Present at time of Family Support x Other Chaplain Herbert Price 131 Phone [phone] Spiritual Care is available 24 hours a day. Office hours are 0800 to 1700 Friday through Friday and 0830 to 1630 Friday and Friday. Interfaith and Anabaptist chaplains are available 24 hours a day. For routine consults please call and leave a message with the Spiritual Care Office ([phone]) and patients will be seen within 24 hours. Forall emergent consults page the Church or Interfaith on-call Technical Buyer through [facility] ([phone]). * Viviane Verduzco CSW - 01/08/2018 1157 EDT Initial Case Management/Social Work Assessment and Discharge Plan/Readmission Risk Assessment REASON FOR ADMISSION: Pt admitted s/p falling off deck. Sustained - R femur fx Patient understands reason for admission: Yes PATIENT CONTACT INFO VERIFIED: Yes PATIENT ADDRESS VERIFIED: Yes LIVING ARRANGEMENTS AND ACCESSIBILITY ISSUES: Living Arrangements: Spouse / significant other Levels: 3 Stairs to enter: 0 Handicap access: Railings to upstairs Bathroom located on bedroom level?: Yes 3 level home w/bedroom and bathroom on each level. 2 entrances into home both without stairs. What in home social supports are available to the patient? Friends / neighbors, Spouse / significant other, [facility] Is / care available? NA - works from home late afternoon into the evening. ADVANCED DIRECTIVES, POA &/or COLST IN PLACE: Healthcare Directive: Yes, patient has advance directive for healthcare treatment DIRECTIVES FOR FINANCES: TRANSPORTATION: Uncertain of d/c plan and transport CULTURAL, SPIRITISM and/or LANGUAGE factors affecting health care/discharge planning: Spiritual/Cultural Requests: Prayer Any factors affecting health care/discharge planning?: No Insurance in Place: Yes Medical Insurance: Yes Referred to patient financial services: No [facility] DISCHARGE RISK ASSESSMENT: None of the above risks identified Total # selected above: Score: Zero Tentative plan to address the risk of re-hospitalization for those at HIGH MODERATE RISK: RAPT TOOL: Age: >75 Gender: Male Ambulation distance: 2 or more blocks (600ft) Gait device: None Will you live with someone who will care for you?: Yes RAPT Tool Score: 9 Patient expects to be discharged to: uncertain at this time SBIRT: SASQ (Single Alcohol Screening Question) How many times in the past year have you had 5 or more drinks in a single day?: Never How many times in the past year have you used an illegal drug or used a prescription medication fornon-medical reasons?: Never Intervention in place/initiated?: No, not indicated FUNCTIONAL STATUS: Prior to injury jazz was active and fully independent. COMMUNITY RESOURCES/SUPPORTS: Primary Care Provider: Karo tOero PCP Verified: Yes Specialists: Cardiology Type of Home Health Services: None DME Provider: Pharmacy: No Pharmacies Listed Home Health: Other: POST HOSPITAL TRANSITION PLAN: Rehab vs home depending on progress. Met w/jazz this morning to introduce myself. He was in good spirits, pain well controlled. He is aware of plan for OR tomorrow. [place] his [place] in [place], moved here a couple years ago from [place]. 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 He has good support from friends, orthodox & . We talked about plans after OR and he said he was told he will need rehab. I explained that therapies will see him and make recs for d/c plan. He initially said he would like to go the to the rehab in [facility]. I explained AR vs MATTY vs home and we talked about making decisions as he works w/therapies and sees how he is doing. Explained my role and provided my contact info. Will follow LATIA Hernandez 01/08/2018 11:57 * Chasity Rios, PT - 01/08/2018 0656 EDT Rehabilitation Therapies Acute Therapies [facility] Physical TherapyContact Note Date of Service: 01/08/2018 PT consult order received. Patient NPO on bedrest and in traction. PT will evaluate post op. CHASITY RIOS, PT 01/08/2018 6:56 * Erika Estrada MD - 01/08/2018 0615 EDT Orthopaedic Progress Note Problem: right periprosthetic fracture Procedure: pending Subjective: Doing well in traction. No pain without movement. No numbness or tingling. Objective: RLE Sensation: intact throughout Motor: intact in EHL, TA, GS Skin intact, traction in place Vascular: warm and well perfused Assessment: 77 year old patient with right periprosthetic femur fracture, pending OR. Plan: Weight bearing: bedrest Pain control Traction; bucks in place. 10 lbs. Every 4 hour skin breaks. Appreciate cardiology, medicine recommendations; will continue plavix throughout course PT evaluation: pending after OR DVT Ppx: held for OR, SCDs Dispo: pending Erika Estrada MD 6:15 01/08/2018 Pager: [phone] documented in this encounter H&P Notes * Erika Estrada MD - 01/07/20182011 EDT 01/07/2018, 20:13 Orthopaedic Surgery Consultation CC: Right leg pain HPI: Jazz Brothers III is a 77 y.o. male with history of unstable angina (s/p stenting 1 month ago on plavix, last taken today), HTN (on metoprolol and losartan and HCTZ) who presents with right femur fracture after fall from deck earlier today. He is s/p right knee replacement in 2007 which was complicated by staph aureus infection requiring two stage revision in 2012. He has had no problems with his knee since that time. He lives with his independently and takes care of himself. He can walk up and down a flight ofstairs without difficulty. He is retired; enjoys woodworking and being outdoors. He does smoke or drink. He does still have mild bouts of chest pain (required nitro yesterday). He presents to ED from OSH with complaints of right leg pain. No other injuries. No other complaints. No paresthesias. Echocardiogram done prior to cath was 64%. Ambulatory status: independent PCP: Karo Otero PMH: Angina HTN PSH: Past Surgical History: Procedure Laterality Date ??? CORONARY ANGIOPLASTY WITH STENT PLACEMENT ??? TOTAL KNEE ARTHROPLASTY Bilateral Meds: plavix ASA HCTZ-losartan Metoprolol Nitro Lipitor Temazepam Wellbutrin Allergies: No Known Allergies FHx: No family history on file. SH: The patient lives in [place], [place] with his No tobacco or drug use ROS: Negative except as for what is noted above in HPI Objective: Blood pressure (!) 160/98, pulse 73, temperature 36.9 ??C (98.4 ??F), temperature source Oral, resp. rate 21, height 180.3 cm (71), weight 95.3 kg (210 lb), SpO2 100 %. Exam: [01/07/2018, 20:13] Gen: alert, calm, cooperative, pleasant Resp: nonlabored CV: RRR per peripheral pulse MSK RLE: skin intact, prior knee incision well healed Full strength in EHL, TA, GS 2+ DP pulse Sensation intact in dp, sp, sural, tibial, saph nerve distribution Leg minimally shortened and externally rotated Pain with palpation over thigh Labs: Lab Results Component Value Date CREATININE 1.06 01/07/2018 BUN 25 01/07/2018 NA 136 01/07/2018 K 3.7 01/07/2018 CL 109 01/07/2018 CO2 22 01/07/2018 Lab Results Component Value Date WBC 6.87 01/07/2018 HGB 10.7 (L) 01/07/2018 HCT 31.1 (L) 01/07/2018 MCV 86 01/07/2018 PLT 124 (L) 01/07/2018 No results found for: SEDRATE, CRP Lab Results Component Value Date PROTIME 12.1 01/07/2018 INR 1.0 01/07/2018 PTT 30 01/07/2018 Diagnostic Imaging: ?? AP/Lat right hip: no fractures of hip ?? AP/Lat right femur/knee: total knee in place without evidence of loosening or failure. There is an obliquely oriented femur fracture from the proximal aspect of the phlange and extends proximally.No significant shortening or comminution. [place] anterior. Patient RLE placed in [place] traction of 10 pounds Assessment: Jazz Brothers III is a 77 y.o. male with history of angina, HTN and s/p right total knee replacement in 2012 who presents with a Rose 2 periprosthetic femur fracture. Given goals of care, would benefit from operative fixation. Consent was obtained from the patient today. The risks and benefits of the procedure were discussedwith the patient which include but are not limited to: infection, DVT/PE neurovascular injury, malunion, nonunion, hardware failure, need for further surgeries, post-traumatic arthritis, pain, stiffness and swelling. The patient elected to proceed. Plan: 1. Admit to Dr. Marie 2. Plan for OR when medically cleared and safe (given plavix and stenting, will consult cardiology and medicine) 3. Will acquire records from [facility] Pre-Op Checklist 1 Consent completed 2 Extremity signed 3 NPO 4 IVF ordered 5 Type and Screen ordered 6 IV access- patient needs 2 peripheral IVs before going to OR. 7 Anticoagulation held- plavix per cardiology 8 Pre-operative antibiotics- ancef ordered d/w: Dr. Marie, Dr. Jose Guadalupe Estrada MD 01/07/2018 documented in this encounter Consult Notes * Barber Craig MD - 01/13/2018 1234 EDT Red Blood Cell Transfusion Reaction-Pathology Patient: Jazz Brothers III Transfusion Initiated (date/time): 01/11/2018 at 1510 Transfusion Terminated (date/time): 01/11/2018 at 1805 Blood Bank Notified (date/time): 01/11/2018 at 1934 Notified By: Lien Suh RN Blood Product Detail: Red Blood Cells Donor/Unit Number: [id number] Amount Transfused: 330 mL Reaction Description: chills/rigors Laboratory Investigation Laboratory workup? No - Per Dr. Diego Zamarripa Pre-transfusion records reviewed? Yes Clerical/lumber chain offbearer errors found? No Post-transfusion blood specimen Serum appearance: N/A Group/Rh: N/A Direct antiglobulin: N/A Urine specimen: Not Collected Culture of blood unit: Not performed. Additional Testing: Antibody Screen: N/A Laboratory Investigation Comments: The patient had received the full unit of RBCs and subsequently complained of chills without any change in temperature or vital signs, though the patient was noted to have a very slightly lower than normal temperature pre-transfusion at 35.8 C. This meets criteriafor a febrile non-hemolytic transfusion reaction, though no fever was objectively identified based on the timing and symptoms displayed by the patient. Assessment/Conclusions: Diagnosis: Febrile Non-Hemolytic Transfusion Reaction (FNHTR) Case Definition Criteria:Definitive and Possible Severity:Grade 1 (Non-Severe) Imputability:Possible (Note: Diagnosis, criteria, severity, and imputability as defined by CDC/[facility]) Barber Craig MD 01/13/2018 13:43 * Seth Cortez MD - 01/08/2018 0703 EDT Inpatient Consult Note Admit Date: 01/07/2018 Date of Service: 01/08/2018 Requesting Physician: Betty Marie MD Specialty Completing Consult: Internal medicine Reason for Consult: Pre-op evaluation and co-management HPI:(include onset,location,quality,severity, duration, timing, associating symptoms) Patient is a very pleasant 77-year-old gentleman with a past history of CAD, status post PCI with JENNI placement approximate 7 weeks prior to presentation, hypertension, hyperlipidemia, CKD stage III,and depression, presenting to the emergency room after a mechanical fall with subsequent prostatic femur fracture. The medicine service consult that for preop evaluation and medical comanagement. Patient reports that while walking on the deck, he missed a step at the end of it and subsequently fell. He heard a snap and he immediately noticed pain in his right hip. He denies any head trauma orloss of consciousness. He denies any chest pain, shortness breath, or focal neurologic deficits prior during or after the fall. He was unable to get up or ambulate, secondary to his pain, and was subsequently transferred to the emergency of further evaluation. Patient denies any recent illnesses, fevers, or chills. He denies any abdominal pain, nausea, or vomiting, and has been tolerating by mouth intake well. He reports that he has been able to ambulate 1mile without chest pain or shortness of breath since he has had his cardiac stents placed and is able to walk up a flight of stairs without problems. However, the day prior to his fall, while workingin the garden, he noticed dull chest pain. He took 1 nitroglycerin and his pain resolved within 5 minutes of rest. Otherwise, he has not had any chest pain or shortness of breath. PMH PSH CAD HTN HLD CKD stage 3 Insomnia Depression Past Surgical History: Procedure Laterality Date ??? CORONARY ANGIOPLASTY WITH STENT PLACEMENT ??? TOTAL KNEE ARTHROPLASTY Bilateral Social History Family History Social History Substance Use Topics ??? Smoking status: Never Smoker ??? Smokeless tobacco: Never Used ??? Alcohol use No No family history of heart disease Medications Current Facility-Administered Medications: acetaminophen (TYLENOL) tablet 1,000 mg oral Q6H Or acetaminophen (TYLENOL) suppository 975 mg rectal Q6H ascorbic acid (vitamin C) (VITAMIN C) tablet 500 mg oral DAILY aspirin chewable tablet 81 mg oral DAILY atorvastatin (LIPITOR) tablet 80 mg oral DAILY bisacodyl (DULCOLAX) suppository 10 mg rectal Daily PRN calcium carbonate (TUMS) 200 mg calcium (500 mg) per chewable tablet tablet,chewable 2 Tab oral Q2HPRN ceFAZolin (ANCEF) syringe 2 g intravenous METER TESTER POLYPHASE TO O.R. cholecalciferol (Vitamin D3) tablet 2,000 Units oral DAILY clopidogrel (PLAVIX) tablet 75 mg oral DAILY docusate sodium (COLACE) capsule 200 mg oral BID HYDROmorphone (DILAUDID) tablet 2-4 mg oral Q4H PRN methocarbamol (ROBAXIN) tablet 1,000 mg oral Q6H PRN metoprolol XL (TOPROL-XL) tablet 12.5 mg oral DAILY morphine injection 2 mg intravenous Q4H PRN Multivitamins with Minerals tablet 1 Tab oral DAILY nitroGLYCERIN (NITROSTAT) SL tablet 0.4 mg sublingual Q5 MINUTES PRN ondansetron (ZOFRAN-ODT) disintegrating tablet 4 mg oral Q6H PRN Or ondansetron (PF) (ZOFRAN) injection 4 mg intravenous Q6H PRN polyethylene glycol 3350 (MIRALAX) packet 17 g oral DAILY povidone-iodine solution 5% (Skin and Nasal Antiseptic) 1 Kit nasal ONCE senna (SENOKOT) tablet 2 Tab oral BID sodium chloride 0.9 % (NS) infusion intravenous CONTINUOUS temazepam (RESTORIL) capsule 15 mg oral AT BEDTIME PRN traMADol (ULTRAM) tablet 50 mg oral Q6H PRN zinc sulfate (ZINCATE) capsule 220 mg oral DAILY Allergies No Known Allergies Review of Systems: A ten point review of systems was performed. Pertinent positives are listed above, all others are negative. Objective/Physical Exam: VS: Patient Vitals for the past 8 hrs: BP Resp Temp SpO2 O2 Device 01/08/18 0538 132/75 16 35.9 ??C (96.6 ??F) 97 % None Exam: Gen: in NAD HEENT: NCAT, EOMI, neck supple CV: RRR Pulm: CTAB with good air movement throughout, no crackles or wheezing Abdomen: soft, non-tender, non-distended, normal BT, no rebound or guarding appreciated on exam Neuro: alert and oriented, answering questions appropriately, grossly no focal neurologic deficits on exam Skin: no rashes or lesions Psych: normal mood and affect Data Review: I have independently visualized the Labs: CBC: Lab Results Component Value Date WBC 6.87 01/07/2018 RBC 3.62 (L) 01/07/2018 HGB 10.7 (L) 01/07/2018 HCT 31.1 (L) 01/07/2018 MCV 86 01/07/2018 MCH 29.6 01/07/2018 MCHC 34.4 01/07/2018 PLT 124 (L) 01/07/2018 NEUTROABS 5.04 01/07/2018 BMP: Lab Results Component Value Date NA 136 01/07/2018 K 3.7 01/07/2018 CL 109 01/07/2018 CO2 22 01/07/2018 BUN 25 01/07/2018 CREATININE 1.06 01/07/2018 CALCIUM 7.3 (L) 01/07/2018 Coagulation: Lab Results Component Value Date PROTIME 12.1 01/07/2018 PTT 30 01/07/2018 Other Studies: ECG, reviewed by myself showed sinus rhythm with first degree AV block; HR of 64, no acute ischemicchanges; QTc of 433 Femur X-ray (01/07/2018): The patient is status post right total knee arthroplasty. There is a ?? known oblique fracture through the distal aspects of the right femur ?? involving the proximal components of the femoral arthroplasty ?? hardware. Degree of angulation and displacement is overall little ?? changed on the frontal projection with progressive anterior ?? displacement and angulation on the lateral projection. Degree of ?? overriding and foreshortening of the fracture fragment is stable. Assessment: Patient is a very pleasant 77-year-old gentleman with a past history of CAD, status post PCI with JENNI placement approximate 7 weeks prior to presentation, hypertension, hyperlipidemia, CK D stage III, and depression, presenting to the emergency room after a mechanical fall with subsequent prostaticfemur fracture. Plan for surgery tomorrow. The medicine service consult that for preop evaluation and medical comanagement. Recommendations: # Periprosthetic femur fracture: Given known CAD, using the revised cardiac risk index, patient is a 0.9% risk of major adverse cardiac events. We will defer to cardiology regarding to antiplatelet therapy. - Pain control and DVT prophylaxis per primary team - PT following # CAD/HTN/HLD: Recent PCI with placement of JENNI approximately 7 weeks prior to admission - Cardiology following, greatly appreciate their assistance and recommendations - would continue aspirin and Plavix at this time, unless cardiology feels that it would be okay to hold Plavix for now - Continue metoprolol XL 12.5 mg by mouth daily - Recommend holding losartan and hydrochlorothiazide for now, given renal impairment and upcoming surgery - Continue atorvastatin 80 mg by mouth daily # Acute on chronic kidney disease: Most likely secondary to decreased by mouth intake - Avoid nephrotoxins and renally dose all medications - Strict I's and O's and daily weights - Daily BMP for now - Encourage by mouth intake # Hyponatremia: Na of 131 - encourage PO intake and repeat BMP tomorrow AM - strict I/O's # Depression: - Continue bupropion SR 150mg PO BID # Insomnia: Patient reports that he has been taking temazepam every night for one year now - temazepam 15mg PO QHS PRN Recommendations discussed with primary team Thank you for this consult and involving us in Mr. Brothers' care; we will continue to follow. Pleasepage the hospital invertebrate paleontologist with any further questions. Seth Cortez MD 01/08/2018 7:03 * Javan Lozano MD - 01/07/2018 194 EDT Images from the original note were not included. Cardiology Consult Admission Date: 01/07/2018 Date of Service: 01/07/2018 PCP: Karo Otero Attending Physician: Vinayak Melo MD Reason for Consult: Continuation of DAPT in setting of right femur fracture Subjective: HPI: Jazz Brothers is a 77yo male with PMH of CAD (received JENNI to LAD and proximal OM1 for UA on 11/19/17), HTN, HLD, CKD (baseline Cr per [facility] [place] 1.5) who presents following a mechanical fall resulting inright femur fracture. Patient reports that following admission at [facility] [place]A in early November he has been in his usual state of health. Had brief episode of chest pressure yesterday that occurred while gardening but resolved after single SL NTG. States discomfort was of different quality than his chest pressure he had onpresenting for UA. Today, he was stepping off of his porch and missed a step and fell and suffered a right femur fracture. Cardiology was consulted regarding continuation of DAPT in setting of recent PCI and surgery at high risk for bleeding. Patient currently denies any chest pain, SOB. Only complaint at this time is right leg pain but feels this is under adequate control at this time. Review of Systems A ten point review of systems was performed with pertinent positives and negatives noted above PMH PSH CAD s/p JENNI to LAD and OM1 HTN HLD CKD Past Surgical History: Procedure Laterality Date ??? CORONARY ANGIOPLASTY WITH STENT PLACEMENT ??? TOTAL KNEE ARTHROPLASTY Bilateral Social History Family history Former smoker, approx 20 pack year hx quit 20 years ago No ETOH use No family history on file. (Not in a hospital admission) Current Facility-Administered Medications: morphine injection 2 mg intravenous Q4H PRN No current outpatient prescriptions on file. Allergies No Known Allergies Objective: Patient Vitals for the past 8 hrs: BP Temp Temp src Pulse Resp SpO2 Height Weight 01/07/181999 (!) 145/91 - - - 16 98 % - - 01/07/18 1851 (!) 160/98 36.9 ??C (98.4 ??F) Oral 73 21 100 % 180.3 cm (71) 95.3 kg (210 lb) Exam: General appearance: alert, cooperative, no distress HEENT: NC/AT Neck: JVD not elevated Lungs: clear to auscultation bilaterally, good air movement throughout Heart: RRR, S1, S2 normal, no murmur, rub or gallop Abdomen: soft, non-tender, non-distended; bowel sounds normal Neurologic: No gross deficits, conversing appropriately Extremities: extremities warm, no edema ECG: SR Cardiac/Radiology Studies: LHC at [facility] (11/19/17): Echo at [facility]: EF of 65%, posterior and lateral hypokinesis, mild AI Labs Lab Results Component Value Date/Time NA 136 01/07/2018 19:21 K 3.7 01/07/2018 19:21 CL 109 01/07/2018 19:21 CO2 22 01/07/2018 19:21 BUN 25 01/07/2018 19:21 CREATININE 1.06 01/07/2018 19:21 CALCIUM 7.3 (L) 01/07/2018 19:21 Estimated Creatinine Clearance: 67.7 mL/min (by C-G formula based on Cr of 1.06). Lab Results Component Value Date/Time WBC 6.87 01/07/2018 19:21 HCT 31.1 (L) 01/07/2018 19:21 PLT 124 (L) 01/07/2018 19:21 MCV 86 01/07/2018 19:21 Lab Results Component Value Date/Time INR 1.0 01/07/2018 19:21 PTT 30 01/07/2018 19:21 No results found for: CHOL, LDLBASE, HDL, TRIG, HGBA1C No results found for: BNP, NTBNP, CK, MB, TROPONINI Assessment and Plan: Jazz Brothers is a 77yo male with PMH of CAD (received JENNI to LAD and proximal OM1 for UA on 11/19/17), HTN, HLD, CKD (baseline Cr per [facility] is 1.5) who presents following a mechanical fall resulting inright femur fracture whom cardiology is being consulted for continuation of DAPT in setting of recent JENNI placement and pending surgery for right femur fracture. Per orthopedics, surgery needs to be p erformed within 48 hours to minimize risk of morbidity and surgery is high risk for bleeding. Guidelines recommend minimum of 12 months to DAPT following JENNI, however, emerging literature suggests shorter duration of 3-6 months is reasonable if risks of continuation outweigh benefit. Given JENNI placement 7 weeks ago would favor continuation of DAPT to minimize perioperative MO. Patient medically optimized for surgery. - continue ASA, plavix 75mg daily - continue lipitor 80mg daily - continue Toprol XL 12.5mg BID - hold losartan/HCTZ day of procedure Please do not hesitate to call with any questions or concerns. Case discussed with Dr. Maliha Lozano MD Wireline Supervisor Pager # [phone] 01/07/2018 21:07 Associated attestation - Rolando Thornton MD - 01/08/2018 7790 EDT Attestation: I saw and evaluated the patient on 01/08/2018. I agree with the findings and plan of care as documented in the resident's/fellow's note. Rolando Thornton MD 01/08/2018 11:54 documented in this encounter OR Notes * OR Surgeon - Mauricio Dodson MD - 01/09/2018 0000 EDT OPERATIVE REPORT SERVICE DATE: 01/09/2018 SURGEON: Mauricio Dodson MD ASSISTANTS: Sumeet Leon MD, PGY4, Katharina Watson, MS3 PREOPERATIVE DIAGNOSIS: Right periprosthetic distal femur fracture surrounding revision total knee components. POSTOPERATIVE DIAGNOSIS: Right periprosthetic distal femur fracture surrounding revision total kneecomponents. PROCEDURE: Open reduction and internal fixation, right periprosthetic distal femur fracture with plate and screw construct. ANESTHESIA: General. FINDINGS: There was mild anterior communition just proximal to the flange of the total knee. Otherwise, a fracture pattern was completely spiral and near anatomic reduction was able to be obtained. 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 He fell while enjoying the view of the [place] on 01/07/2018. He had immediate pain and deformity about his right knee and was unable to ambulate. He presented to the [facility] emergency room where he was admitted to the orthopedic service cleared by the hospitalist service as well as evaluated by the cardio logy service, recommended continuation of his dual antiplatelet therapy during the perioperative period. Prior to this injury he lived independently with his , was able to walk a flight of stairswithout difficulty. He was apprised of the risks and benefits of a surgical intervention including infection, malunion, nonunion, hardware failure, need for additional surgery, postoperative stiffness and he elected to proceed. NARRATIVE: Mr Brothers was greeted on preoperative rounds. H+P was confirmed to be up to date from this admission as well as medically optimized. He was typed and crossed for 3 units of packed red blood cells with 2 units on hold in the blood bank. Consent form was verified. He was then transported to the preoperative holding area in the early afternoon and subsequently into the operating room. TheWHO 1 checklist was performed confirming correct patient, correct extremity, and correct procedure to be performed. He was then placed under general anesthesia and positioned in the right lateral decubitus position. All bony prominences were well padded and an axillary roll was placed. His right leg was then prepped and draped in the usual sterile fashion and a sterile tourniquet was placed. Two grams of Ancef were administered for antibiotic prophylaxis. A WHO 2 checklist was performed confirming correct patient, correct extremity, and correct procedure to be performed. All members of the anesthesia and nursing team were in agreement. Right leg was gravity exsanguinated and tourniquet was inflated to 300 mmHg. A 20 cm incision was made from the distal aspect of the patella centered over the lateral aspect of the femur. Dissection carried through skin and subcutaneous tissue to the level of the IT band and the lateral capsule. The IT band was cleared of the subcutaneous attachments and split in line with its fibers. Subvastus approach to the femur was then performed with excellent hemostasis with careful dissection of the perforating vessels. The lateral aspect of the femur was exposed, visualizing the fracture site as well as the total knee prosthesis in its entirety. Two cables were then passed from anterior to posterior, hugging the bone to avoid damage to the neurovascular bundle. These were confirmed to be outside the fracture sitewith direct palpation, reduction was then performed with axial traction and a bump placed and the cables were then tightened and a near anatomic reduction was able to be obtained. The cables were tensioned. An 18-hole Shreyas distal femur periprosthetic plate was then selected. It was slid proximally in a percutaneous fashion. The plate was then centered over the anterior aspect of the distal femur just posterior to the flange of the total knee prosthesis. The plate was then centered over the femoral shaft proximally and held in place, a single central screw was placed. The proximalmost visible screw hole in the femoral shaft was predrilled and a 5 mm cortical screw was placed. An additional5 mm screw was predrilled and placed bicortically just proximal to the stem of the total knee. Satisfied with our preliminary fixation, we deflated the tourniquet after 84 minutes of ischemia time. Hemostasis was obtained with no significant bleeding discovered. An additional seven 5 mm unicorticalscrews were drilled and placed. Set caps were then applied to all of the distal screws. Satisfied with our alignment of the plate we proceeded with additional proximal fixation. A separate 8 cm incision was made based on the fluoroscopic guidance over the proximal aspect of the plate in a similarly direct lateral approach to the femur. Dissection was carried through skin andsubcutaneous tissue to the level of the IT band, which was cleared with subcutaneous fat tissue. The vastus lateralis was split in line with its fibers and the 3 proximal screws were placed bicortically. Final fluoroscopic images were obtained, demonstrating a well-maintained reduction. Copious irrigation was then performed on both the proximal and distal incisions. The IT band was then closed with a running barbed 0 barbed PDS suture and subcutaneous tissue were closed with a running barbed 2-0 Monocryl and the skin was closed with rene and Dermabond. A sterile dressing was then applied. The patient was transferred to a regular hospital bed, where a final flat plate x-ray was performed demonstrating no retained foreign bodies. The foot had a +2 DP pulse at the end of the procedure. The patient was then transferred to the postanesthesia recovery unit with no untoward events. ESTIMATED BLOOD LOSS: 200 mL. FLUIDS: 2000 to 500 mL of crystalloid. URINE OUTPUT: 320 mL. SPECIMENS AND CULTURES: None. IMPLANTS: Shreyas distal femur periprosthetic plate, 18 holes, 5.0 cortical screws x13 with locking set caps x8, Dall-Miles cables x2. TOURNIQUET TIME: 84 minutes. 30 mL of Marcaine was injected into the incision at the end of the procedure. POSTOPERATIVE PLAN: The patient will receive multimodal pain control with scheduled Tylenol and intermittent narcotics. Rene will be removed at 2 - 3 weeks postoperatively. Ancef x24 hours. The patient will be toe-touch weightbearing on his right lower extremity with a walker at all times. Total knee precautions with no pillow under the affected knee. Dr Dodson was present for the entirety of the above procedure. Unless otherwise noted, there were no complications, no blood loss, no cultures obtained, no specimens removed, and no drains retained. Mauricio Dodson MD 07 51 PM / Sumeet Leon MD cn Confirmation: [id number] Dictation ID: [id number] documented in this encounter ED Notes * Barber Seo - 01/07/2018 1931 EDT 12 Lead EKG Performed by Barber Seo and shown to Vinayak Melo MD. * Shane Thornton RN - 01/07/2018 1859 EDT R thigh noted to be swollen, + DP and PT pulses palpable, CSMT intact in R foot. * Vinayak Melo MD - 01/07/2018 1846 EDT DOS: 01/07/2018 Chief Complaint Patient presents with ??? Leg Pain Pt arrives in transfer from OSH with reports R Femur Fx after fall from one step height. HPI HPI Comments: [place], am scribing for Vinayak Melo MD while he is personally performing the service. El Winters 01/07/2018 18:47 Jazz Brothers III is a 77 y.o. male with a past medical history of right knee replacement and recent cardiac stents who presents to the ED from [facility] with right femur fracture.. The patient reports he was walking on a deck and while he was looking at the mountains he stepped off the edge of the deck and fell. He reports he was not looking where he was walking and missed a step and fell onto the grass. He had immediate pain. Denies hitting his head or losing consciousness or any other injury or complaint. Denies chest pain shortness breath dizziness or any prodromal symptoms. Per patient, he is currently experiencing 2/10 pain in the right thigh region. The history is provided by the patient and medical records. Review of Systems Review of Systems Constitutional: Negative. Negative for chills, fatigue and fever. S/p fall. HENT: Negative. Negative for congestion, ear pain, rhinorrhea, sinus pressure, sneezing, sore throat, tinnitus and trouble swallowing. He denies hitting his head. Eyes: Negative. Negative for visual disturbance. Respiratory: Negative. Negative for chest tightness and shortness of breath. Cardiovascular: Negative. Negative for chest pain and leg swelling. Gastrointestinal: Negative. Negative for abdominal distention and abdominal pain. Endocrine: Negative. Negative for polydipsia. Genitourinary: Negative. Negative for dysuria and frequency. Musculoskeletal: Positive for myalgias. Negative for arthralgias, back pain, gait problem and jointswelling. Positive for a diagnosed fracture of unspecified part of the neck of the right femur. 2/10 pain to the right thigh region. Skin: Positive for wound. Negative for rash. Allergic/Immunologic: Negative. Negative for immunocompromised state. Neurological: Negative for dizziness, tremors, seizures, syncope, speech difficulty, weakness and headaches. Hematological: Negative. Negative for adenopathy. Does not bruise/bleed easily. Psychiatric/Behavioral: Negative. Negative for confusion. All other systems reviewed and are negative. The patient's past medical, family and social history was reviewed and updated as needed. No Known Allergies Vital Signs Vitals Reassessment?: Yes Temp: 36.9 ??C (98.4 ??F) Temp src: Oral Pulse: 73 Resp: 21 SpO2: 100 % BP: (!) 160/98 BP MAP: 115 mm Hg BP Device: BP Machine Patient Position: Semi fowlers BP Cuff Location: Right arm O2 Device: None (Room air) Physical Exam Constitutional: He is oriented to person, place, and time. He appears well- developed and well-nourished. HENT: Head: Normocephalic and atraumatic. Right Ear: External ear normal. Left Ear: External ear normal. Nose: Nose normal. Mouth/Throat: Oropharynx is clear and moist. Eyes: Conjunctivae are normal. Pupils are equal, round, and reactive to light. Right eye exhibits no discharge. Left eye exhibits no discharge. Neck: Normal range of motion. Neck supple. No tracheal deviation present. Cardiovascular: Normal rate, regular rhythm, normal heart sounds and intact distal pulses. Exam reveals no gallop and no friction rub. No murmur heard. Pulmonary/Chest: Effort normal and breath sounds normal. No respiratory distress. He has no wheezes. He has no rales. He exhibits no tenderness. Abdominal: Soft. Bowel sounds are normal. He exhibits no distension and no mass. There is no tenderness. There is no rebound and no guarding. Musculoskeletal: Normal range of motion. He exhibits tenderness. He exhibits no edema. Abrasion on the right forearm over the ulna with no bony tenderness or step-off. Ulnar abrasion on the left arm patient says is from a few days ago. Fullness and swelling in the right thigh that is mildly tender. Distal neurovascular intact. Neurological: He is alert and oriented to person, place, and time. He has normal strength. He is not disoriented. No sensory deficit. He exhibits normal muscle tone. Skin: Skin is warm and dry. No rash noted. Psychiatric: He has a normal mood and affect. Nursing note and vitals reviewed. RESULTS EKG orders: EKG 12-LEAD Twelve-lead tracing. ??Normal sinus rhythm rate of 64. ??Intervals with prolonged OK interval of 221 ms, first-degree AV block., axis normal, ??QRS morphology normal, ST and T-wave morphology normal. ??Overall impression sinus rhythm with first-degree AV block, otherwise normal EKG. Radiology orders: OUTSIDE IMAGES - PLAIN FILM MSK OUTSIDE IMAGES - OTHER CHEST OUTSIDE IMAGES - PLAIN FILM MSK ED Lab Results Labs Reviewed HEMAGRAM AND DIFFERENTIAL - Abnormal Result Value Status WBC 6.87 Final RBC 3.62 (*) Final Hemoglobin 10.7 (*) Final HCT 31.1 (*) Final MCV 86 Final MCH 29.6 Final MCHC 34.4 Final RDW-CV 13.5 Final RDW-SD 42.7 Final PLT 124 (*) Final MPV 10.3 Final Neutrophils 73.4 Final Lymphocytes 18.0 Final Monocytes 7.0 Final Eosinophils 0.7 Final Basophils 0.6 Final Immature Grans 0.3 Final ABS Neutrophils 5.04 Final ABS Lymphs 1.24 Final ABS Monocytes 0.48 Final ABS Eosinophils 0.05 Final ABS Basophils 0.04 Final ABS Immature Grans 0.02 Final Type of Diff: Automated Final PROTIME Pro Time 12.1 Final I.N.R. 1.0 Final PTT PTT 30 Final BASIC METABOLIC PANEL (BMP) POCT URINE DIPSTICK, CLINITEK Relevant Data Procedures ED COURSE A medical screening exam was performed. Patient with known coronary disease presents with a mechanical fall and a new right femur fracture.He has a history of previous knee replacement on that side. I reviewed the x-rays from the outside facility and she will periprosthetic fracture just at the proximal end of the knee prosthesis. Orthopedics was consulted and saw the patient promptly. Labs showed low H&H of 10 and 31. Basicmetabolic panel with low calcium and otherwise unremarkable. EKG also essentially unremarkable. He did require small doses of morphine here for pain management but overall seemed fairly comfortable. He is admitted to orthopedic service in stable condition. ASSESSMENT AND PLAN Final diagnoses: None DISPOSITION: No disposition on file The patient's pain was managed to an adequate level weighing risk vs. benefit of further medications. Upon departure from the Emergency Department, the patient's pain was 6 on a zero to ten scale. Any further pain treatment will be at the discretion of the provider following up with the patient based on their clinical assessment. Condition at departure from the Emergency Department: Stable PCP: Karo Otero MDM Number of Diagnoses or Management Options 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, initial encounter: Diagnosis management comments: 5 This documentation is recorded by El Winters acting as Scribe under the direction and presence of Vinayak Melo MD. Vinayak Melo MD: I personally performed the services recorded by the scribe in my presence. I confirm the scribe's documentation has been reviewed by me to accurately and completely record my work,treatment, procedures, and medical decision making. 01/07/2018 19:58 No flowsheet data found. documented in this encounter Miscellaneous Notes * Plan of Care - Lien Suh RN - 01/13/2018 1233 EDT Problem: Daily Care Plan Goals Goal: Care Plan Documentation Outcome: Met This Shift 01/13/18 0905 Care Plan Focus Area of Focus Discharge Plan Goal This Shift Patient will be safely discharged home Data: Patient with order for discharge with home health services. Patient passed physical therapy. Ambulating with stand-by assistance and front-wheel walker. Blood pressure (!) 145/80, pulse 72, temperature 36.3 ??C (97.3 ??F), Tympanic, resp. rate 16, SpO2 99 %. Patient c/o pain 1/10 on numeric scale in right hip. Dressings on right hip intact with scant amount of strikethrough drainage. +CSMT.Tolerating regular diet with no n/v. Action: Provided discharge paperwork and prescriptions to patient. Faxed prescriptions to [facility] pharmacy. Educated patient and spouse, Marina, on Lovenox therapy (hand-out provided), new medications (including Tramadol, Lovenox, bowel medications). Reviewed dressing care and provided extra dressin gs. Re-enforced education on egg-shell touchdown precautions. Called nursing report to Jennifer Mccabe [facility]. Response: Patient and spouse verbalized understanding. Left unit with all belongings in wheelchair with patient support. Plan to machine operator hop picker prescriptions at pharmacy on way out of hospital. Lien Suh RN 01/13/2018 12:25 * Plan of Care - Griselda Simeon RN - 01/13/2018 0040 EDT Problem: Daily Care Plan Goals Goal: Care Plan Documentation Outcome: Met This Shift Data: Pt's goal is to sleep. Action: Provided dark quiet environment. Clustered care as needed and medicated per eMAR. Response: Pt sleeping comfortably, will continue to monitor * Plan of Care - Betty Frances - 01/12/2018 1520 EDT Problem: Daily Care Plan Goals Goal: Care Plan Documentation Outcome: Met This Shift 01/12/18 1449 Care Plan Focus Area of Focus Mobility Goal This Shift ambulate in [place] Data: Pt states goal to ambulate with nsg in [place]. Action: Assisted OOB to ambulate. Response: Tolerated well with CGA and FWW. Ambulated 40ft. Betty Frances RN 01/12/2018 14:54 * Plan of Care - Berta Bartlett RN - 01/12/2018 0430 EDT Problem: Daily Care Plan Goals Goal: Care Plan Documentation Outcome: Met This Shift 01/11/18 1934 Care Plan Focus Area of Focus GI//Elimination Goal This Shift Pt will have decrease nausea Data: At the time of bedside report, the patient was reporting nausea, was flushed and stated he was feeling hot but that he had been having chills. He received 2units PRBC for decreased H&H which completed about 90min prior. Goal is for patient to have decreased nausea. Patient is voiding, +CSMTs and dressings are CDI. He reports minimal pain. Action: Patient medicated with PRN Zofran, blood-bank notified of possible post transfusion reaction by previous RN, ortho/path residents notified and 500mL NS bolus and IV benadryl given as ordered.Hourly checks completed. Response: Patient reports resolution of nausea after Zofran. Tolerated fluid bolus and benadryl well and noted to have improvement of flushing within and hour of zofran/benadryl. Call light in reach,will continue to monitor. Berta Bartlett RN 01/12/2018 4:17 * Plan of Care - Lien Suh RN - 01/11/2018 1710 EDT Problem: Daily Care Plan Goals Goal: Care Plan Documentation Outcome: Met This Shift 01/11/18 0917 Care Plan Focus Area of Focus GI//Elimination Goal This Shift Patient will have bowel movement Data: Patient constipated, no bowel movement since admission. + flatus, denying nausea. Action: Encouraged PO fluids. Administered prune juice, Miralax, Milk of Magnesia, Senna and Colace. Assisted patient with x 2 assist and front-wheel walker to commode several times this shift. Response: Patient with medium brown bowel movement and later this afternoon large brown bowel movement. Will continue to monitor elimination. Lien Suh RN 01/11/2018 17:08 * Plan of Care - Berta Bartlett RN - 01/11/2018 0356 EDT Problem: Daily Care Plan Goals Goal: Care Plan Documentation Outcome: Met This Shift 01/10/182001 Care Plan Focus Area of Focus Pain/ Comfort Goal This Shift Pt will report tolerable pain Data: Patient reporting pain of 1-4/10 this shift. Goal is to have tolerable pain. VSS, +CSMTs, voiding, dressings CDI. Action: Patient medicated per eMAR, care clustered to promote rest and comfort, hourly checks completed. Response: Patient reports tolerable pain this shift. Call light in reach, will continue to monitor. Of note: Patient rang call light overnight and was very upset about light and noise in room relatedto care of his roommate. I validated patients displeasure with this but stated that unfortunately his roommate needed more care from nursing staff and that we needed lights to do so. I offered him ear plugs and eye mask which he gladly accepted and put to use and assured him I would speak with the other staff caring for the roommate and ask that they be mindful of noise and light when in the room. Patient was satisfied with this answer. Also spoke with charge and let him know that a room changemight be necessary if the roommate would be requiring a lot of assistance. Berta Bartlett RN 01/11/2018 3:50 * Plan of Care - Lien Suh RN - 01/10/2018 1542 EDT Problem: Daily Care Plan Goals Goal: Care Plan Documentation Outcome: Met This Shift 01/10/18 1538 Care Plan Focus Area of Focus GI//Elimination Goal This Shift Patient will void s/p urinary catheter removal Data: Patient urinary carrillo catheter removed 0615, due to void 1215. Patient unable to void. Blood pressures soft (90s systolic) this morning. Action: Bladder scanned patient for 152 mL. Encouraged PO fluids and administered 500 mL LR bolus. Assisted patient to dangle at edge of bed. Response: Patient able to void 125 mL rui urine at ~1530. Will continue to encourage fluids. Lien Suh RN 01/10/2018 15:39 * Plan of Care - Katharina Elizabeth RN - 01/10/2018 0234 EDT Problem: Daily Care Plan Goals Goal: Care Plan Documentation Outcome: Ongoing 01/09/182104 Care Plan Focus Area of Focus Pain/ Comfort Goal This Shift pain will be tolerable Data: Pt arrived back from PACU around 2100 s/p ORIF right periprosthetic femoral shaft fracture. Pt A&Ox3, rating pain 4/10. Two large Mepilex C/D/I. Carrillo draining clear/yellow urine. BP 100/58(BP Cuff Location: Right arm, Patient Position: Semi fowlers) Pulse 81 Temp (!) 35.5 ??C (95.9 ??F) (Tympanic) Resp 17 Ht 180.3 cm (71) Wt 95.3 kg (210 lb) SpO2 95% BMI 29.29 kg/m2 Action: Oriented patient back to unit. Administered scheduled medications and PRN Tramadol for pain- see eMAR. Provided dim environment to promote rest. Response: Pt stating that pain is tolerable. Will continue to assess pain level and adjust interventions as needed. Katharina Elizabeth RN 01/10/2018 2:17 * Anesthesia Post-Eval - Lara Suh - 01/09/20182013 EDT Anesthesia Post op Note [employer] [id number] Anesthesia received: General; Vital Signs: Temp: 35.6 ??C (96.1 ??F), Heart Rate: 80 BPM, Pulse: 65, BP: 118/75, Resp: 16, SpO2: 100 % Vital signs Stable: Yes Consciousness: Alert, Awake Patient's participation in evaluation:Able to participate Temperature Status: Normothermic Respiratory Status: Airway patent Supplemental O2: Nasal cannula Oxygen Saturation: Within patient's normal range, Appropriate for condition Cardiovascular Status: Within patient's normal range Post-op Hydration: Adequate Nausea / Vomiting: None Pain Control: Adequate Current Pain Score: Numeric Pain Level (Scale 1-10): 5 Post-op Assessment: Tolerated procedure well Disposition: Inpatient Complications: No apparent anesthetic complications Lara Suh MD 01/09/2018 20:14 * Brief Op Note - Sumeet Leon - 01/09/2018 1908 EDT Brief Post-Op Note Date of Surgery: 01/09/2018 Surgeon: West Assistants: Jaimee Leon MS3 Pre-Op Diagnosis: Right perioprosthetic femoral shaft fracture Post-Op Diagnosis: same Procedure(s): ORIF right periprosthetic femoral shaft fracture Findings: excellent reduction Anesthesia Type: General and Local Estimated Blood Loss: 200 cc Fluids: 2500 cc Urine Output: 320 cc Specimens/Cultures: None Implants: Shreyas distal femur periprosthetic plate, 18 holes, 5.0 mm screws, locking caps distally,cablesx Tourniquet Time: 84 min Drains/Packs: None Local: 30 cc 0.5% marcaine Complications: None Disposition and Condition: Sent to PACU in Good condition. Post-Op Plan: -Pain Control -Closed with rene and dermabond - Antibiotics: Ancefx 24 hours -Weight Bearing: TTWB RLE - 20 lbs - Activity Level: total knee precautions -DVT prophylaxis: ASA and plavix -Elevate affected extremity -Diet: regular Sumeet Leon MD 01/09/2018 19:08 Pager [phone] * Plan of Care - Eliana Baker RN - 01/09/2018 1604 EDT Problem: Daily Care Plan Goals Goal: Care Plan Documentation Outcome: Met This Shift 01/09/18 0900 Care Plan Focus Area of Focus Pain/ Comfort Goal This Shift Ptill have adequate pain control. Data: Pt alert, oriented x3. NPO for surgery today to repair right femur fracture. Pt in 10lbs of traction. Denied pain in right leg at rest. Complained of 2/10 headache this afternoon. Action: Medicated with Tylenol 1000 mg po. Response: Pt to OR at 1400 today. Pain down to 0/10 Eliana Baker RN 01/09/2018 16:00 * Plan of Care - Miya Rebollar RN - 01/09/2018 0358 EDT Problem: Daily Care Plan Goals Goal: Care Plan Documentation Outcome: Met This Shift 01/08/18 1959 Care Plan Focus Area of Focus Psychosocial Goal This Shift anxiety reduction Data: Pt expressing anxiety toward upcoming surgery. Action: Provided emotional support to pt. Response: Pt resting comfortably at this time. Will continue to monitor. MIYA REBOLLAR RN 01/09/2018 3:51 * Plan of Care - Barber Dawkins MD - 01/08/2018 1615 EDT Ortho Brief Plan for OR tomorrow with Dr. Dodson, for ORIF of right periprosthetic distal femoral shaft fracture vs revision TKA. Components: [employer] System; Constrained femoral component size 7, tibial baseplate size 6, with 2 offset couplers and 2 pressfit stems Pre-op'd as below Pre-Op Checklist - Consent completed - Extremity signed - NPO at midnight - IVF ordered - Has sufficient access - Has sufficient preoperative imaging - Type and Screen, crossed for 2 units - Coag labs WNL, on dual antiplatelet therapy - Pre-operative antibiotics- Ancef ordered - Case booked Barber Dawkins Orthopedic Surgery PGY2 01/08/2018 16:23 [id number] * Plan of Care - Mauricio Bacon RN - 01/08/2018 1433 EDT Problem: Daily Care Plan Goals Goal: Care Plan Documentation Outcome: Met This Shift 01/08/18 0841 Care Plan Focus Area of Focus Pain/ Comfort Goal This Shift patient will report pain is tolerable Data: Patient admitted 01/07 with R femur fx after fall off of deck. On bedrest. Currently in byers'straction at 10#. Requested pain medication at 1140 for increasing pain to 4/10. Action: Repositioned patient regularly through this shift. Medicated with PRN robaxin and tramadol.See MAR. Response: Reports improvement in pain to 2/10 following pain administration. Instructed to contact staff if pain levels escalate again. CTM. Mauricio Bacon RN 01/08/2018 14:27 * Plan of Care - Erika Estrada MD - 01/08/2018 0834 EDT Ortho Brief Plan for OR tomorrow. Cardiac diet. NPO midnight. Ancef OCTOR. Continue plavix/asa per cardiology. Medicine to see this AM. Implant records requested from [facility]-please call Sumeet Leon when results are received. 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 Erika Estrada MD 01/08/2018 8:36 * Plan of Care - Miya Rebollar RN - 01/08/2018 0230 EDT Problem: Daily Care Plan Goals Goal: Care Plan Documentation Outcome: Met This Shift 01/07/18 2141 Care Plan Focus Area of Focus Communication Goal This Shift orient to unit Data: Pt admitted with a R femur fx. VSS. A&Ox3. Pain managed. In traction. +csmt, pulse. 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 Placed NPO, IVF infusing. Pain managed with PRN pain meds. Ice applied to leg. Continuing to perform hourly checks Response: Pt resting comfortably at this time. Using call leal approprietly. Will continue to monitor. MIYA REBOLLAR RN 01/08/2018 2:23 documented in this encounter Plan of Treatment Upcoming Encounters Date Type Department Care Team (Late st Contact Info) Description 04/30/2024 13:00 EDT Office Visit [facility] - [address] [place] [address] Anjum Miranda MD [address] [facility], [address] [place] [phone] Pending Results Name Type Priority Associated Diagnoses Date /Time OUTSIDE IMAGES - PLAIN FILM MSK Imaging 01/07/2018 17:30 EDT OUTSIDE IMAGES - OTHER CHEST Imaging 01/07/2018 17:30 EDT OUTSIDE IMAGES - PLAIN FILM MSK Imaging 01/07/2018 17:30 EDT Scheduled Referrals Name Type Priority Associated Diagnoses Order Schedule AMB CONS/FOLLOW UP HOME HEALTH SERVICES Outpatient Referral Routine 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, initial encounter Ordered: 01/13/2018 PROVIDER FOLLOW-UP INSTRUCTIONS Outpatient Referral Routine Ordered: 01/13/2018 AMB CONS/FOLLOW UP ORTHOPEDICS Outpatient Referral Routine 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, initial encounter Ordered: 01/17/2018 documented as of this encounter Procedures Procedure Name Priority Date/Time Associated Diagnosis Comments ECG REPORT - SCANNED 01/16/2018 11:04 EDT TRANSFUSION RECORD - SCANNED 01/16/2018 11:04 EDT COMPLETE BLOOD COUNT AND DIFFERENTIAL Routine 01/13/2018 6:57 EDT BUN Routine 01/13/2018 6:57 EDT CREATININE Routine 01/13/2018 6:57 EDT ELECTROLYTES Routine 01/13/2018 6:57 EDT BUN Routine 01/12/2018 9:32 EDT CREATININE Routine 01/12/2018 9:32 EDT ELECTROLYTES Routine 01/12/2018 9:32 EDT COMPLETE BLOOD COUNT AND DIFFERENTIAL Routine 01/12/2018 6:32 EDT COMPLETE BLOOD COUNT AND DIFFERENTIAL Routine 01/11/2018 20:47 EDT PREPARE RED BLOOD CELLS Routine 01/11/2018 10:21 EDT PREPARE RED BLOOD CELLS Routine 01/11/2018 10:21 EDT COMPLETE BLOOD COUNT AND DIFFERENTIAL Routine 01/11/2018 9:40 EDT INPATIENT ADD-ON Routine 01/11/2018 7:40 EDT TESTS ADDED BY PHONE Routine 01/11/2018 6:53 EDT IRON Routine 01/11/2018 6:53 EDT FERRITIN Routine 01/11/2018 6:53 EDT BASIC METABOLIC PANEL (BMP) Routine 01/11/2018 6:53 EDT COMPLETE BLOOD COUNT AND DIFFERENTIAL Routine 01/10/2018 6:48 EDT BUN Routine 01/10/2018 6:48 EDT CREATININE Routine 01/10/2018 6:48 EDT ELECTROLYTES Routine 01/10/2018 6:48 EDT FEMUR 2 OR MORE VIEWS Routine 01/09/2018 18:13 EDT PELVIS 1 OR 2 VIEWS Routine 01/09/2018 1 0:48 EDT ECG REPORT - SCANNED 01/09/2018 6:42 EDT COMPLETE BLOOD COUNT AND DIFFERENTIAL Routine 01/09/2018 6:39 EDT BUN Routine 01/09/2018 6:39 EDT CREATININE Routine 01/09/2018 6:39 EDT ELECTROLYTES Routine 01/09/2018 6:39 EDT PREPARE RED BLOOD CELLS Routine 01/08/2018 11:58 EDT PREPARE RED BLOOD CELLS Routine 01/08/2018 11:58 EDT TYPE AND SCREEN Routine 01/08/2018 11:36 EDT MRSA PCR Routine 01/08/2018 9:15 EDT COMPLETE BLOOD COUNT AND DIFFERENTIAL Routine 01/08/2018 7:02 EDT BUN Routine 01/08/2018 7:02 EDT HEMOGLOBIN A1C Routine 01/08/2018 7:02 EDT CREATININE Routine 01/08/2018 7:02 EDT ELECTROLYTES Routine 01/08/2018 7:[address] FEMUR WO CONTRAST Routine 01/08/2018 6:17 EDT FEMUR 2 OR MORE VIEWS STAT 01/07/2018 20:59 EDT EKG 12-LEAD STAT 01/07/2018 19:27 EDT PTT STAT 01/07/2018 19:21 EDT PROTIME STAT 01/07/2018 19:21 EDT COMPLETE BLOOD COUNT AND DIFFERENTIAL STAT 01/07/2018 19:21 EDT BASIC METABOLIC PANEL (BMP) STAT 01/07/2018 19:21 EDT documented in this encounter Results * ECG REPORT - SCANNED (01/16/2018 11:04 EDT) 01/16/2018 11:0 4 EDT Scan 2 Color Developer PROCEDURE/MINOR AUDI GICAL ORDERABLES * TRANSFUSION RECORD - SCANNED (01/16/2018 11:04 EDT) 01/16/2018 11:0 4 EDT Scan 2 Color Developer LAB INFO SERVICE AN D SUPPORT & PHONE RESULT * (ABNORMAL) ELECTROLYTES (01/13/2018 6:57 EDT) Sodium 130(L) 136 - 145 mEq/L 01/13/2018 7:47 EDT [facility] Potassium 4.6 3.5 - 5.0 mEq/L 01/13/2018 7:47 EDT [facility] Chloride 100 96 - 110 mEq/L 01/13/2018 7:47 EDT [facility] CO2 26 22 - 32 mEq/L 01/13/2018 7:47 EDT [facility] Blood specimen (specimen) BLOOD SPECIMEN / Unknown 01/13/2018 6:57 EDT 01/13/2018 7:13 EDT Barber Dawkins MD CHEMISTRY & BLOOD GA S ORDERABLES Performing Organization Address [facility] Co de Phone Number [facility] [address] [place] [address] * CREATININE (01/13/2018 6:57 EDT) Creatinine 1.02 0.66 - 1.25 mg/dl 01/13/2018 7:47 EDT [facility] GFR, Calculated 70 >60 ml/min/1.7 3m2 01/13/2018 7:47 EDT [facility] Comment: eGFR calculated using CKD-EPI equation for non Americans. Multiply eGFR by 1.16 for Americans. Blood specimen (specimen) BLOOD SPECIMEN / Unknown 01/13/2018 6:57 EDT 01/13/2018 7:13 EDT Barber Dawkins MD CHEMISTRY & BLOOD GA S ORDERABLES Performing Organization Address City/[facility] Co de Phone Number [facility] [address] [place] [address] * BUN (01/13/2018 6:57 EDT) BUN 14 10 - 26 mg/dl 01/13/2018 7:47 [facility] Blood specimen (specimen) BLOOD SPECIMEN / Unknown 01/13/2018 6:57 EDT 01/13/2018 7:13 EDT Barber Dawkins MD CHEMISTRY & BLOOD GA S ORDERABLES [facility] [address] [place] [address] * (ABNORMAL) HEMAGRAM AND DIFFERENTIAL (01/13/2018 6:57 EDT) WBC 6.06 4.0 - 10.4 K/cmm 01/13/2018 7:22 [facility] RBC 3.04(L) 4.36 - 5.78 M/cmm 01/13/2018 7:22 [facility] Hemoglobin 9.2(L) 13.8 - 17.3 gm/dl 01/13/2018 7:22 [facility] HCT 26.5(L) 39.5 - 50.2 % 01/13/2018 7:22 [facility] MCV 87 81 - 95 fl 01/13/2018 7:22 [facility] MCH 30.3 27.6 - 33.0 pg 01/13/2018 7:22 [facility] MCHC 34.7 32.8 - 36.4 gm/dl 01/13/2018 7:22 [facility] RDW-CV 13.9 <14.2 % 01/13/2018 7:22 [facility] RDW-SD 44.0 <46.0 fl 01/13/2018 7:22 [facility] PLT 149 141 - 377 K/cmm 01/13/2018 7:22 [facility] MPV 10.1 9.5 - 12.7 fl 01/13/2018 7:22 [facility] % Neutrophils 66.6 % 01/13/2018 7:22 [facility] % Lymphocytes 19.3 % 01/13/2018 7:22 [facility] % Monocytes 9.9 % 01/13/2018 7:22 [facility] % Eosinophils 3.0 % 01/13/2018 7:22 [facility] % Basophils 0.7 % 01/13/2018 7:22 [facility] % Immature Grans 0.5 % 01/13/2018 7:22 [facility] ABS Neutrophils 4.04 2.20 - 8.85 K/cmm 01/13/2018 7:22 [facility] ABS Lymphs 1.17 1.09 - 3.30 K/cmm 01/13/2018 7:22 [facility] ABS Monocytes 0.60 0.1 - 0.8 K/cmm 01/13/2018 7:22 [facility] ABS Eosinophils 0.18 0.03 - 0.61 K/cmm 01/13/2018 7:22 [facility] ABS Basophils 0.04 0.01 - 0.11 K/cmm 01/13/2018 7:22 [facility] ABS Immature Grans 0.03 0 - 0.06 K/cmm 01/13/2018 7:22 [facility] Type of Diff: Automated 01/13/2018 7:22 [facility] Blood specimen (specimen) BLOOD SPECIMEN / Unknown 01/13/2018 6:57 EDT 01/13/2018 7:13 EDT Barber Dawkins MD PACKAGES & DNA PROBE ORDERABLES [facility] [address] [place] [address] * (ABNORMAL) ELECTROLYTES (01/12/2018 9:32 EDT) Sodium 130(L) 136 - 145 mEq/L 01/12/2018 11:03 [facility] Potassium 4.3 3.5 - 5.0 mEq/L 01/12/2018 11:03 [facility] Chloride 98 96 - 110 mEq/L 01/12/2018 11:03 EDT [facility] CO2 23 22 - 32 mEq/L 01/12/2018 11:03 EDT [facility] Blood specimen (specimen) BLOOD SPECIMEN / Unknown 01/12/2018 9:32 EDT 01/12/2018 10:08 EDT Barber Dawkins MD CHEMISTRY & BLOOD GA S ORDERABLES Performing Organization Address City/[facility]/ZIP Co de Phone Number [facility] [address] [place] [address] * CREATININE (01/12/2018 9:32 EDT) Creatinine 1.04 0.66 - 1.25 mg/dl 01/12/2018 11:03 EDT [facility] GFR, Calculated 68 >60 ml/min/1.7 3m2 01/12/2018 11:03 EDT [facility] Comment: eGFR calculated using CKD-EPI equation for non Americans. Multiply eGFR by 1.16 for Americans. Blood specimen (specimen) BLOOD SPECIMEN / Unknown 01/12/2018 9:32 EDT 01/12/2018 10:08 EDT Barber Dawkins MD CHEMISTRY & BLOOD GA S ORDERABLES Performing Organization Address City/[facility] Co de Phone Number [facility] [address] [place] [address] * BUN (01/12/2018 9:32 EDT) BUN 14 10 - 26 mg/dl 01/12/2018 11:03 EDT [facility] Blood specimen (specimen) BLOOD SPECIMEN / Unknown 01/12/2018 9:32 EDT 01/12/2018 10:08 EDT Barber Dawkins MD CHEMISTRY & BLOOD GA S ORDERABLES Performing Organization Address City/[facility]/ZIP Co de Phone Number [facility] [address] [place] [address] * (ABNORMAL) HEMAGRAM AND DIFFERENTIAL (01/12/2018 6:32 EDT) WBC 5.97 4.0 - 10.4 K/cmm 01/12/2018 8:13 [facility] RBC 2.90(L) 4.36 - 5.78 M/cmm 01/12/2018 8:13 [facility] Hemoglobin 8.7(L) 13.8 - 17.3 gm/dl 01/12/2018 8:13 [facility] HCT 24.8(L) 39.5 - 50.2 % 01/12/2018 8:13 [facility] MCV 86 81 - 95 fl 01/12/2018 8:13 [facility] MCH 30.0 27.6 - 33.0 pg 01/12/2018 8:13 [facility] MCHC 35.1 32.8 - 36.4 gm/dl 01/12/2018 8:13 [facility] RDW-CV 13.8 <14.2 % 01/12/2018 8:13 [facility] RDW-SD 43.5 <46.0 fl 01/12/2018 8:13 [facility] PLT 117(L) 141 - 377 K/cmm 01/12/2018 8:13 [facility] MPV 11.0 9.5 - 12.7 fl 01/12/2018 8:13 [facility] % Neutrophils 72.1 % 01/12/2018 8:13 [facility] % Lymphocytes 15.2 % 01/12/2018 8:13 [facility] % Monocytes 10.4 % 01/12/2018 8:13 [facility] % Eosinophils 1.5 % 01/12/2018 8:13 [facility] % Basophils 0.5 % 01/12/2018 8:13 [facility] % Immature Grans 0.3 % 01/12/2018 8:13 [facility] ABS Neutrophils 4.30 2.20 - 8.85 K/cmm 01/12/2018 8:13 [facility] ABS Lymphs 0.91(L) 1.09 - 3.30 K/cmm 01/12/2018 8:13 [facility] ABS Monocytes 0.62 0.1 - 0.8 K/[facility] 01/12/2018 8:13 [facility] ABS Eosinophils 0.09 0.03 - 0.61 K/cm 01/12/2018 8:13 [facility] ABS Basophils 0.03 0.01 - 0.11 K/[facility] 01/12/2018 8:13 [facility] ABS Immature Grans 0.02 0 - 0.06 K/[facility] 01/12/2018 8:13 [facility] Type of Diff: Automated 01/12/2018 8:13 [facility] Blood specimen (specimen) BLOOD SPECIMEN / Unknown 01/12/2018 6:32 EDT 01/12/2018 8:07 EDT Barber Dawkins MD PACKAGES & DNA PROBE ORDERABLES [facility] [address] [place] [address] * (ABNORMAL) HEMAGRAM AND DIFFERENTIAL (01/11/2018 20:47 EDT) WBC 8.91 4.0 - 10.4 K/cm 01/11/2018 23:21 [facility] RBC 3.01(L) 4.36 - 5.78 M/cmm 01/11/2018 23:21 [facility] Hemoglobin 8.9(L) 13.8 - 17.3 gm/dl 01/11/2018 23:21 [facility] HCT 25.9(L) 39.5 - 50.2 % 01/11/2018 23:21 [facility] MCV 86 81 - 95 fl 01/11/2018 23:21 [facility] MCH 29.6 27.6 - 33.0 pg 01/11/2018 23:21 [facility] MCHC 34.4 32.8 - 36.4 gm/dl 01/11/2018 23:21 [facility] RDW-CV 13.8 <14.2 % 01/11/2018 23:21 [facility] RDW-SD 42.9 <46.0 fl 01/11/2018 23:21 [facility] PLT 123(L) 141 - 377 K/cmm 01/11/2018 23:21 [facility] MPV 10.9 9.5 - 12.7 fl 01/11/2018 23:21 [facility] % Neutrophils 74.0 % 01/11/2018 23:21 [facility] % Lymphocytes 15.0 % 01/11/2018 23:21 [facility] % Monocytes 9.8 % 01/11/2018 23:21 [facility] % Eosinophils 0.6 % 01/11/2018 23:21 [facility] % Basophils 0.3 % 01/11/2018 23:21 [facility] % Immature Grans 0.3 % 01/11/2018 23:21 [facility] ABS Neutrophils 6.59 2.20 - 8.85 K/cmm 01/11/2018 23:21 [facility] ABS Lymphs 1.34 1.09 - 3.30 K/cmm 01/11/2018 23:21 [facility] ABS Monocytes 0.87(H) 0.1 - 0.8 K/cmm 01/11/2018 23:21 [facility] ABS Eosinophils 0.05 0.03 - 0.61 K/cmm 01/11/2018 23:21 [facility] ABS Basophils 0.03 0.01 - 0.11 K/cmm 01/11/2018 23:21 [facility] ABS Immature Grans 0.03 0 - 0.06 K/cmm 01/11/2018 23:21 [facility] Type of Diff: Automated 01/11/2018 23:21 [facility] Blood specimen (specimen) BLOOD SPECIMEN / Unknown 01/11/2018 20:47 EDT 01/11/2018 20:56 EDT Willie Kaur MD PACKAGES & DNA PROBE ORDERABLES Performing Organization Address City/[facility]/ZIP Co de Phone Number [facility] [address] [place] [address] * TRANSFUSE RED BLOOD CELLS (01/11/2018 18:06 EDT) Blood specimen (specimen) Willie Kaur MD NURSING TREATMENT - BLOOD ADMINISTRATION * TRANSFUSE RED BLOOD CELLS (01/11/2018 14:28 EDT) Blood specimen (specimen) Willie Kaur MD NURSING TREATMENT - BLOOD ADMINISTRATION * PREPARE RED BLOOD CELLS (01/11/2018 10:21 EDT) Product Code [id number] [facility] Donor Number [id number] [facility] Unit ABO B [facility] Unit Rh POS [facility] Unit Status TR^Transfuse [facility] BLOOD [facility] Product Expiration Date [facility] Unit Blood Type Code 7300 [facility] Coding System [id number] [facility]OD [facility] 01/11/2018 10:2 1 EDT Willie Kaur MD BLOOD BANK ORDERABLE S [facility] * PREPARE RED BLOOD CELLS (01/11/2018 10:21 EDT) Product Code [id number] [facility] Donor Number [id number] [facility] Unit ABO B [facility] B[facility] Unit Rh POS [facility] Unit Status TR^Transfuse [facility] BLOOD [facility] Product Expiration Date [facility] Unit Blood Type Code 7300 [facility] Coding System [id number] [facility] Blood specimen (specimen) 01/11/2018 10:21 EDT Willie Kaur MD BLOOD BANK ORDERABLE S [facility] * (ABNORMAL) HEMAGRAM AND DIFFERENTIAL (01/11/2018 9:40 EDT) WBC 8.09 4.0 - 10.4 K/cmm 01/11/2018 10:04 [facility] RBC 2.38(L) 4.36 - 5.78 M/cmm 01/11/2018 10:04 [facility] Hemoglobin 7.2(L) 13.8 - 17.3 gm/dl 01/11/2018 10:04 [facility] HCT 20.6(LL) 39.5 - 50.2 % 01/11/2018 10:04 [facility] MCV 87 81 - 95 fl 01/11/2018 10:04 [facility] MCH 30.3 27.6 - 33.0 pg 01/11/2018 10:04 [facility] MCHC 35.0 32.8 - 36.4 gm/dl 01/11/2018 10:04 [facility] RDW-CV 13.9 <14.2 % 01/11/2018 10:04 [facility] RDW-SD 42.8 <46.0 fl 01/11/2018 10:04 [facility] PLT 105(L) 141 - 377 K/cmm 01/11/2018 10:04 [facility] MPV 10.5 9.5 - 12.7 fl 01/11/2018 10:04 [facility] % Neutrophils 79.8 % 01/11/2018 10:04 [facility] % Lymphocytes 11.4 % 01/11/2018 10:04 [facility] % Monocytes 7.7 % 01/11/2018 10:04 EDT [facility] % Eosinophils 0.5 % 01/11/2018 10:04 [facility] % Basophils 0.2 % 01/11/2018 10:04 [facility] % Immature Grans 0.4 % 01/11/2018 10:04 [facility] ABS Neutrophils 6.46 2.20 - 8.85 K/cmm 01/11/2018 10:04 [facility] ABS Lymphs 0.92(L) 1.09 - 3.30 K/cmm 01/11/2018 10:04 [facility] ABS Monocytes 0.62 0.1 - 0.8 K/cmm 01/11/2018 10:04 [facility] ABS Eosinophils 0.04 0.03 - 0.61 K/cmm 01/11/2018 10:04 [facility] ABS Basophils 0.02 0.01 - 0.11 K/cmm 01/11/2018 10:04 [facility] ABS Immature Grans 0.03 0 - 0.06 K/cmm 01/11/2018 10:04 [facility] Type of Diff: Automated 01/11/2018 10:04 [facility] Blood specimen (specimen) BLOOD SPECIMEN / Unknown 01/11/2018 9:40 EDT 01/11/2018 9:47 EDT Barber Dawkins MD PACKAGES & DNA PROBE ORDERABLES [facility] [address] [place] [address] * INPATIENT ADD-ON (01/11/2018 7:40 EDT) Tests to be added CBC, BMP FROM [facility] (01/11) PLEASE 01/11/2018 7:39 [facility] Number for problems [id number] 01/11/2018 8:19 [facility] Accession number [id number] NOTIFIED DR MIRELLA VALENTE LAV TO ADD CBC. 01/11/2018 8:19 [facility] TOPOGRAPHY UNKNOWN / Unknown 01/11/2018 7:40 EDT 01/11/2018 8:18 EDT Sumeet Carpio DO HEMATOLOGY & PF4 ORD ERABLES Performing Organization Address [facility]/ZIP Co de Phone Number [facility] [address] [place] [address] * TESTS ADDED BY PHONE (01/11/2018 6:53 EDT) Tests to be added LYT 01/11/2018 10:17 EDT [facility] Who Called BARBER PAIZDWELL. ADDON CONFUSION SEE JANIE WITH QUESTIONS 01/11/2018 10:17 EDT [facility] Location Code B3 01/11/2018 10:17 T [facility] Read Back/Confirme d? YES 01/11/2018 10:17 EDT [facility] TOPOGRAPHY UNKNOWN / Unknown 01/11/2018 6:53 EDT 01/11/2018 8:16 EDT Sumeet Carpio DO CHEMISTRY & BLOOD GA S ORDERABLES Performing Organization Address [facility] de Phone Number [facility] [address] [place] [address] * (ABNORMAL) BASIC METABOLIC PANEL (BMP) (01/11/2018 6:53 EDT) Sodium 130(L) 136 - 145 mEq/L 01/11/2018 8:48 EDT [facility] Potassium 4.2 3.5 - 5.0 mEq/L 01/11/2018 8:48 EDT [facility] Chloride 101 96 - 110 mEq/L 01/11/2018 8:48 EDT [facility] CO2 23 22 - 32 mEq/L 01/11/2018 8:48 EDT [facility] BUN 21 10 - 26 mg/dl 01/11/2018 8:48 EDT [facility] Creatinine 1.19 0.66 - 1.25 mg/dl 01/11/2018 8:48 EDT [facility] GFR, Calculated 58(L) >60 ml/min/1.7 3m2 01/11/2018 8:48 EDT [facility] Comment: eGFR calculated using CKD-EPI equation for non Americans. Multiply eGFR by 1.16 for Americans. Calcium 7.5(L) 8.5 - 10.5 mg/dl 01/11/2018 8:48 EDT [facility] Calculated Calcium 8.7 8.5 - 10.5 mg/dl 01/11/2018 8:48 EDT [facility] Glucose, Serum 108(H) 70 - 100 mg/dl 01/11/2018 8:48 EDT [facility] Fasting? Unknown 01/11/2018 8:35 EDT [facility] BLOOD SPECIMEN / Unknown 01/11/2018 6:53 EDT 01/11/2018 8:16 EDT Sumeet Carpio DO CHEMISTRY & BLOOD GA S ORDERABLES Performing Organization Address [facility] de Phone Number [facility] [address] [place] [address] * FERRITIN (01/11/2018 6:53 EDT) Ferritin 166 22 - 322 ng/ml 01/12/2018 11:27 EDT [facility] Blood specimen (specimen) BLOOD SPECIMEN / Unknown 01/11/2018 6:53 EDT 01/11/2018 8:16 EDT Sumeet Carpio DO CHEMISTRY & BLOOD GA S ORDERABLES Performing Organization Address [facility] de Phone Number [facility] [address] [place] [address] * (ABNORMAL) IRON (01/11/2018 6:53 EDT) Iron <15(L) 49 - 181 ug/dl 01/11/2018 8:48 EDT [facility] Blood specimen (specimen) BLOOD SPECIMEN / Unknown 01/11/2018 6:53 EDT 01/11/2018 8:16 EDT Amadou Leopolis DO CHEMISTRY & BLOOD GA S ORDERABLES [facility] [address] [place] [address] * (ABNORMAL) HEMAGRAM AND DIFFERENTIAL (01/10/2018 6:48 EDT) WBC 12.19(H) 4.0 - 10.4 K/cmm 01/10/2018 7:31 [facility] RBC 2.93(L) 4.36 - 5.78 M/cmm 01/10/2018 7:31 [facility] Hemoglobin 8.8(L) 13.8 - 17.3 gm/dl 01/10/2018 7:31 [facility] HCT 25.3(L) 39.5 - 50.2 % 01/10/2018 7:31 [facility] MCV 86 81 - 95 fl 01/10/2018 7:31 [facility] MCH 30.0 27.6 - 33.0 pg 01/10/2018 7:31 [facility] MCHC 34.8 32.8 - 36.4 gm/dl 01/10/2018 7:31 [facility] RDW-CV 13.4 <14.2 % 01/10/2018 7:31 [facility] RDW-SD 42.0 <46.0 fl 01/10/2018 7:31 [facility] PLT 142 141 - 377 K/cmm 01/10/2018 7:31 [facility] MPV 10.9 9.5 - 12.7 fl 01/10/2018 7:31 [facility] % Neutrophils 79.9 % 01/10/2018 7:31 [facility] % Lymphocytes 10.5 % 01/10/2018 7:31 [facility] % Monocytes 8.9 % 01/10/2018 7:31 [facility] % Eosinophils 0.0 % 01/10/2018 7:31 [facility] % Basophils 0.2 % 01/10/2018 7:31 [facility] % Immature Grans 0.5 % 01/10/2018 7:31 T [facility] ABS Neutrophils 9.75(H) 2.20 - 8.85 K/cmm 01/10/2018 7:31 [facility] ABS Lymphs 1.28 1.09 - 3.30 K/cmm 01/10/2018 7:31 [facility] ABS Monocytes 1.08(H) 0.1 - 0.8 K/cmm 01/10/2018 7:31 [facility] ABS Eosinophils 0.00(L) 0.03 - 0.61 K/cmm 01/10/2018 7:31 [facility] ABS Basophils 0.02 0.01 - 0.11 K/cmm 01/10/2018 7:31 [facility] ABS Immature Grans 0.06 0 - 0.06 K/cmm 01/10/2018 7:31 [facility] Type of Diff: Automated 01/10/2018 7:31 [facility] Blood specimen (specimen) BLOOD SPECIMEN / Unknown 01/10/2018 6:48 EDT 01/10/2018 7:17 EDT Sumeet Leon MD PACKAGES & DNA OK OBE ORDERABLES [facility] [address] [place] [address] * (ABNORMAL) ELECTROLYTES (01/10/2018 6:48 EDT) Sodium 130(L) 136 - 145 mEq/L 01/10/2018 7:46 T [facility] Potassium 4.4 3.5 - 5.0 mEq/L 01/10/2018 7:46 [facility] Chloride 102 96 - 110 mEq/L 01/10/2018 7:46 [facility] CO2 20(L) 22 - 32 mEq/L 01/10/2018 7:46 [facility] Blood specimen (specimen) BLOOD SPECIMEN / Unknown 01/10/2018 6:48 EDT 01/10/2018 7:17 EDT Sumeet Leon MD CHEMISTRY & BLOOD GAS ORDERABLES Performing Organization Address [facility] Co de Phone Number [facility] [address] [place] [address] * (ABNORMAL) CREATININE (01/10/2018 6:48 EDT) Creatinine 1.17 0.66 - 1.25 mg/dl 01/10/2018 7:46 EDT [facility] GFR, Calculated 59(L) >60 ml/min/1.7 3m2 01/10/2018 7:46 EDT [facility] Comment: eGFR calculated using CKD-EPI equation for non Americans. Multiply eGFR by 1.16 for Americans. Blood specimen (specimen) BLOOD SPECIMEN / Unknown 01/10/2018 6:48 EDT 01/10/2018 7:17 EDT Sumeet Leon MD CHEMISTRY & BLOOD GAS ORDERABLES Performing Organization Address [facility] Co de Phone Number [facility] [address] [place] [address] * BUN (01/10/2018 6:48 EDT) BUN 23 10 - 26 mg/dl 01/10/2018 7:46 EDT [facility] Blood specimen (specimen) BLOOD SPECIMEN / Unknown 01/10/2018 6:48 EDT 01/10/2018 7:17 EDT Sumeet Leon MD CHEMISTRY & BLOOD GAS ORDERABLES Performing Organization Address [facility] Co de Phone Number [facility] [address] [place] [address] * FEMUR 2 OR MORE VIEWS (01/09/2018 18:13 EDT) Anatomical Region Laterality Modality Other 01/09/2018 18:1 3 EDT 01/13/2018 8:53 EDT Narrative 01/13/2018 8:53 EDT FEMUR 2 OR MORE VIEWS 01/09/2018 6:13 PM Signs and Symptoms: 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, S/P right femur ORIF, routine post op for no count R/O FB Comparisons: 01/07/2018 Findings: AP and lateral views of the right femur were obtained. Images were obtained during ORIF for a periprosthetic fracture of the proximal right femur. The obliquely oriented distal diaphyseal periprosthetic fracture is traversed utilizing a lateral side plate and multiple locking screws. Alignment of the fractures is improved in comparison to the preoperative radiographs obtained one day prior. The total knee arthroplasty prosthesis displays no evidence of hardware loosening. 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 No unexpected radiopaque foreign body. Procedure Note Tai Chowdhury MD - 01/13/2018 FEMUR 2 OR MORE VIEWS 01/09/2018 6:13 PM Signs and Symptoms: 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, S/P right femur ORIF, routine post op for no count R/O FB Comparisons: 01/07/2018 Findings: AP and lateral views of the right femur were obtained. Images were obtained during ORIF for a periprosthetic fracture of the proximal right femur. The obliquely oriented distal diaphyseal periprosthetic fracture is traversed utilizing a lateral side plate and multiple locking screws. Alignment of the fractures is improved in comparison to the preoperative radiographs obtained one day prior. The total knee arthroplasty prosthesis displays no evidence of hardware loosening. 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 No unexpected radiopaque foreign body. Mauricio Dodson MD MSc FRCSC IMG DIAG NOSTIC IMAGING ORDERABLES * PELVIS 1 OR 2 VIEWS (01/09/2018 10:48 EDT) Anatomical Region Laterality Modality Other 01/09/2018 10:4 8 EDT 01/09/2018 11:44 EDT Narrative 01/09/2018 11:44 EDT PELVIS 1 OR 2 VIEWS ??01/09/2018 10:48 AM Signs and Symptoms/Comments: ?? right femur fracture Findings: AP radiograph of the pelvis demonstrates no fracture. Atherosclerotic calcifications are seen overlying the left femoral head neck junction. Phleboliths project within the pelvis. Alignment is anatomic. Procedure Note Dick Smiley MD - 01/09/2018 PELVIS 1 OR 2 VIEWS 01/09/2018 10:48 AM Signs and Symptoms/Comments: right femur fracture Findings: AP radiograph of the pelvis demonstrates no fracture. Atherosclerotic calcifications are seen overlying the left femoral head neck junction. Phleboliths project within the pelvis. Alignment is anatomic. Erika Urena MD IMG DIAGNOSTIC IMAGI NG ORDERABLES * ECG REPORT - SCANNED (01/09/2018 6:42 EDT) 01/09/2018 6:42 EDT Scan 2 Color Developer PROCEDURE/MINOR AUDI GICAL ORDERABLES * (ABNORMAL) HEMAGRAM AND DIFFERENTIAL (01/09/2018 6:39 EDT) WBC 6.26 4.0 - 10.4 K/cmm 01/09/2018 7:16 [facility] RBC 3.80(L) 4.36 - 5.78 M/cmm 01/09/2018 7:16 [facility] Hemoglobin 11.4(L) 13.8 - 17.3 gm/dl 01/09/2018 7:16 [facility] HCT 32.9(L) 39.5 - 50.2 % 01/09/2018 7:16 [facility] MCV 87 81 - 95 fl 01/09/2018 7:16 [facility] MCH 30.0 27.6 - 33.0 pg 01/09/2018 7:16 [facility] MCHC 34.7 32.8 - 36.4 gm/dl 01/09/2018 7:16 [facility] RDW-CV 13.4 <14.2 % 01/09/2018 7:16 [facility] RDW-SD 41.5 <46.0 fl 01/09/2018 7:16 [facility] PLT 123(L) 141 - 377 K/cmm 01/09/2018 7:16 [facility] MPV 10.6 9.5 - 12.7 fl 01/09/2018 7:16 [facility] % Neutrophils 69.6 % 01/09/2018 7:16 [facility] % Lymphocytes 18.1 % 01/09/2018 7:16 [facility] % Monocytes 10.1 % 01/09/2018 7:16 [facility] % Eosinophils 1.4 % 01/09/2018 7:16 [facility] % Basophils 0.5 % 01/09/2018 7:16 [facility] % Immature Grans 0.3 % 01/09/2018 7:16 [facility] ABS Neutrophils 4.36 2.20 - 8.85 K/cmm 01/09/2018 7:16 [facility] ABS Lymphs 1.13 1.09 - 3.30 K/cmm 01/09/2018 7:16 [facility] ABS Monocytes 0.63 0.1 - 0.8 K/cmm 01/09/2018 7:16 [facility] ABS Eosinophils 0.09 0.03 - 0.61 K/cmm 01/09/2018 7:16 [facility] ABS Basophils 0.03 0.01 - 0.11 K/cmm 01/09/2018 7:16 [facility] ABS Immature Grans 0.02 0 - 0.06 K/cmm 01/09/2018 7:16 [facility] Type of Diff: Automated 01/09/2018 7:16 [facility] Blood specimen (specimen) BLOOD SPECIMEN / Unknown 01/09/2018 6:39 EDT 01/09/2018 7:03 EDT Sumeet Leon MD PACKAGES & DNA OK OBE ORDERABLES [facility] [address] [place] [address] * (ABNORMAL) ELECTROLYTES (01/09/2018 6:39 EDT) Sodium 132(L) 136 - 145 mEq/L 01/09/2018 7:36 EDT [facility] Potassium 4.1 3.5 - 5.0 mEq/L 01/09/2018 7:36 EDT [facility] Chloride 101 96 - 110 mEq/L 01/09/2018 7:36 EDT [facility] CO2 26 22 - 32 mEq/L 01/09/2018 7:36 EDT [facility] Blood specimen (specimen) BLOOD SPECIMEN / Unknown 01/09/2018 6:39 EDT 01/09/2018 7:03 EDT Sumeet Leon MD CHEMISTRY & BLOOD GAS ORDERABLES Performing Organization Address [facility] Co de Phone Number [facility] [address] [place] [address] * (ABNORMAL) CREATININE (01/09/2018 6:39 EDT) Creatinine 1.25 0.66 - 1.25 mg/dl 01/09/2018 7:36 EDT [facility] GFR, Calculated 55(L) >60 ml/min/1.7 3m2 01/09/2018 7:36 T [facility] Comment: eGFR calculated using CKD-EPI equation for non Americans. Multiply eGFR by 1.16 for Americans. Blood specimen (specimen) BLOOD SPECIMEN / Unknown 01/09/2018 6:39 EDT 01/09/2018 7:03 EDT Sumeet Leon MD CHEMISTRY & BLOOD GAS ORDERABLES Performing Organization Address City/[facility]/ZIP Co de Phone Number [facility] [address] [place] [address] * BUN (01/09/2018 6:39 EDT) BUN 23 10 - 26 mg/dl 01/09/2018 7:36 EDT [facility] Blood specimen (specimen) BLOOD SPECIMEN / Unknown 01/09/2018 6:39 EDT 01/09/2018 7:03 EDT Sumeet Leon MD CHEMISTRY & BLOOD GAS ORDERABLES [facility] [address] [place] [address] * PREPARE RED BLOOD CELLS (01/08/2018 11:58 EDT) Product Code [id number] [facility] Donor Number [id number] [facility] Unit ABO O [facility] Unit Rh POS [facility] Unit Status RE^Released From [facility]LOOD BANK Product Expiration Date [facility] Unit Blood Type Code 5100 [facility] Coding System [id number] [facility] 01/08/2018 11:5 8 EDT Ana Jarquin Elfrida [facility] BLOOD BANK ORDERA BLES [facility] * PREPARE RED BLOOD CELLS (01/08/2018 11:58 EDT) Product Code [id number] [facility] Donor Number [id number] [facility] Unit ABO [facility] Unit Rh POS [facility] Unit Status RE^Released From [facility] BLOOD B[facility] Product Expiration Date [id number] [facility] Unit Blood Type Code 5100 [facility] Coding System [id number] [facility] 01/08/2018 11:5 8 EDT Ana Jarquin [facility] BLOOD BANK ORDERA BLES [facility] * TYPE AND SCREEN (01/08/2018 11:36 EDT) ABO B [facility] BLOOD BANK Rh Factor Positive [facility] BLOOD BANK Antibody Screen Negative [facility] Specimen Expires: 01/11/2018 @ 23:59 [facility] 01/08/2018 11:3 6 EDT Ana Obrien [facility] BLOOD BANK TESTS Performing Organization Address City/[facility]/ZIP Co de Phone Number [facility] * MRSA PCR (01/08/2018 9:15 EDT) Result No Staphylococcus aureus detected by PCR. 01/08/2018 16:28 EDT [facility] Specimen of unknown material (specimen) NASAL ROUTE / Unknown 01/08/2018 9:15 EDT 01/08/2018 11:54 EDT Erika Urena MD MICROBIOLOGY - GENER AL ORDERABLES Performing Organization Address [facility]/ZIP Co de Phone Number [facility] [address] [place] [id number] * (ABNORMAL) HEMAGRAM AND DIFFERENTIAL (01/08/2018 7:02 EDT) WBC 6.07 4.0 - 10.4 K/cmm 01/08/2018 8:02 [facility] RBC 3.80(L) 4.36 - 5.78 M/cmm 01/08/2018 8:02 [facility] Hemoglobin 11.2(L) 13.8 - 17.3 gm/dl 01/08/2018 8:02 [facility] HCT 32.4(L) 39.5 - 50.2 % 01/08/2018 8:02 [facility] MCV 85 81 - 95 fl 01/08/2018 8:02 [facility] MCH 29.5 27.6 - 33.0 pg 01/08/2018 8:02 [facility] MCHC 34.6 32.8 - 36.4 gm/dl 01/08/2018 8:02 [facility] RDW-CV 13.5 <14.2 % 01/08/2018 8:02 [facility] RDW-SD 41.8 <46.0 fl 01/08/2018 8:02 [facility] PLT 135(L) 141 - 377 K/cmm 01/08/2018 8:02 [facility] MPV 10.6 9.5 - 12.7 fl 01/08/2018 8:02 [facility] % Neutrophils 65.0 % 01/08/2018 8:02 [facility] % Lymphocytes 24.7 % 01/08/2018 8:02 [facility] % Monocytes 8.9 % 01/08/2018 8:02 [facility] % Eosinophils 0.8 % 01/08/2018 8:02 [facility] % Basophils 0.3 % 01/08/2018 8:02 [facility] % Immature Grans 0.3 % 01/08/2018 8:02 [facility] ABS Neutrophils 3.94 2.20 - 8.85 K/cmm 01/08/2018 8:02 [facility] ABS Lymphs 1.50 1.09 - 3.30 K/cmm 01/08/2018 8:02 [facility] ABS Monocytes 0.54 0.1 - 0.8 K/cmm 01/08/2018 8:02 [facility] ABS Eosinophils 0.05 0.03 - 0.61 K/cmm 01/08/2018 8:02 [facility] ABS Basophils 0.02 0.01 - 0.11 K/cmm 01/08/2018 8:02 [facility] ABS Immature Grans 0.02 0 - 0.06 K/cmm 01/08/2018 8:02 [facility] Type of Diff: Automated 01/08/2018 8:02 [facility] Blood specimen (specimen) BLOOD SPECIMEN / Unknown 01/08/2018 7:02 EDT 01/08/2018 7:39 EDT Sumeet Leon MD PACKAGES & DNA OK OBE ORDERABLES Performing Organization Address [facility]/ZIP Co de Phone Number [facility] [address] [place] [address] * (ABNORMAL) ELECTROLYTES (01/08/2018 7:02 EDT) Sodium 131(L) 136 - 145 mEq/L 01/08/2018 8:04 EDT [facility] Potassium 4.1 3.5 - 5.0 mEq/L 01/08/2018 8:04 EDT [facility] Chloride 101 96 - 110 mEq/L 01/08/2018 8:04 EDT [facility] CO2 24 22 - 32 mEq/L 01/08/2018 8:04 EDT [facility] Blood specimen (specimen) BLOOD SPECIMEN / Unknown 01/08/2018 7:02 EDT 01/08/2018 7:39 EDT Sumeet Leon MD CHEMISTRY & BLOOD GAS ORDERABLES Performing Organization Address [facility] Co de Phone Number [facility] [address] [place] [address] * (ABNORMAL) CREATININE (01/08/2018 7:02 EDT) Creatinine 1.31(H) 0.66 - 1.25 mg/dl 01/08/2018 8:04 EDT [facility] GFR, Calculated 52(L) >60 ml/min/1.7 3m2 01/08/2018 8:04 EDT [facility] Comment: eGFR calculated using CKD-EPI equation for non Americans. Multiply eGFR by 1.16 for Americans. Blood specimen (specimen) BLOOD SPECIMEN / Unknown 01/08/2018 7:02 EDT 01/08/2018 7:39 EDT Sumeet Leon MD CHEMISTRY & BLOOD GAS ORDERABLES Performing Organization Address City/[facility]/ZIP Co de Phone Number [facility] [address] [place] [address] * (ABNORMAL) BUN (01/08/2018 7:02 EDT) BUN 29(H) 10 - 26 mg/dl 01/08/2018 8:04 EDT [facility] Blood specimen (specimen) BLOOD SPECIMEN / Unknown 01/08/2018 7:02 EDT 01/08/2018 7:39 EDT Sumeet Leon MD CHEMISTRY & BLOOD GAS ORDERABLES Performing Organization Address [facility] Co de Phone Number [facility] [address] [place] [address] * HEMOGLOBIN A1C (01/08/2018 7:02 EDT) Hemoglobin A1C 5.4 % 01/08/2018 9:16 EDT [facility] Comment: Reference Range: <5.7% Normal 5.7-6.4% Prediabetes =>6.5% Diagnostic for diabetes (if confirmed) Goals for glycemic control in diabetes ADA 2017 For non adults with diabetes: ?? Target <7.5% For children and adolescents with type 1 diabetes: ?? Target <7.0% More or less stringent targets may be appropriate for individual patients. Est Avg Glucose 108 mg/dl 8 9:16 EDT [facility] Comment: eAG represents the A1c result expressed as average glucose in mg/dl. Blood specimen (specimen) BLOOD SPECIMEN / Unknown 01/08/2018 7:02 EDT 01/08/2018 7:39 EDT Erika Urena MD CHEMISTRY & BLOOD GA S ORDERABLES Performing Organization Address [facility] Co de Phone Number [facility] [address] [place] [address] * CT FEMUR WO CONTRAST (01/08/2018 6:17 EDT) Anatomical Region Laterality Modality Other 01/08/2018 6:17 EDT 01/08/2018 11:20 EDT Narrative 01/08/2018 11:20 EDT Exam/Technique: RightCT FEMUR WO CONTRAST ??01/08/2018 6:17 AM Three-dimensional reconstructions were generated on an independent workstation. Images were reviewed and adjusted for 3-D rendering on an independent workstation, as needed, prior to interpretation. History: ?? Fracture, femur, periprosthetic fracture right femur Comparison: Same-day femur x-rays. Findings: Bones: Comminuted periprosthetic fracture within the distal femur along the bone prosthetic interface with slight impaction in the setting of knee arthroplasty revision. There is pronounced periprosthetic lucency surrounding the anterior and posterior tibial bone/prosthetic and bone/cement interface which raises concern for loosening. Muscles/Tendons: No significant muscle atrophy. Limited evaluation of the tendons. Other Soft tissues: Subcutaneous soft tissues demonstrate varicose veins. Impression: 1. ??Comminuted periprosthetic fracture within the distal femur along the bone prosthetic interface with slight impaction, in the setting of knee arthroplasty revision. 2. ??There is pronounced periprosthetic lucency surrounding the anterior and posterior tibial bone/prosthetic and bone/cement interface which raises concern for loosening. Please correlate accordingly. Procedure Note Chang Merlos MD - 01/08/2018 Exam/Technique: RightCT FEMUR WO CONTRAST 01/08/2018 6:17 AM Three-dimensional reconstructions were generated on an independent workstation. Images were reviewed and adjusted for 3-D rendering on an independent workstation, as needed, prior to interpretation. History: Fracture, femur, periprosthetic fracture right femur Comparison: Same-day femur x-rays. Findings: Bones: Comminuted periprosthetic fracture within the distal femur along the bone prosthetic interface with slight impaction in the setting of knee arthroplasty revision. There is pronounced periprosthetic lucency surrounding the anterior and posterior tibial bone/prosthetic and bone/cement interface which raises concern for loosening. Muscles/Tendons: No significant muscle atrophy. Limited evaluation of the tendons. Other Soft tissues: Subcutaneous soft tissues demonstrate varicose veins. Impression: 1. Comminuted periprosthetic fracture within the distal femur along the bone prosthetic interface with slight impaction, in the setting of knee arthroplasty revision. 2. There is pronounced periprosthetic lucency surrounding the anterior and posterior tibial bone/prosthetic and bone/cement interface which raises concern for loosening. Please correlate accordingly. Jr Shi MD IMG CT ORDERABLES * FEMUR 2 OR MORE VIEWS (01/07/2018 20:59 EDT) Anatomical Region Laterality Modality Other 01/07/2018 20:5 9 EDT 01/07/2018 21:14 EDT Narrative 01/07/2018 21:14 EDT FEMUR 2 OR MORE VIEWS ??01/07/2018 8:59 PM Clinical History/Comments: femur fracture in traction Comparisons: 6 hours prior. TECHNIQUE: AP and lateral views of the proximal and distal right femur. FINDINGS: The patient is status post right total knee arthroplasty. There is a known oblique fracture through the distal aspects of the right femur involving the proximal components of the femoral arthroplasty hardware. Degree of angulation and displacement is overall little changed on the frontal projection with progressive anterior displacement and angulation on the lateral projection. Degree of overriding and foreshortening of the fracture fragment is stable. Procedure Note Barber Schmidt MD - 01/07/2018 FEMUR 2 OR MORE VIEWS 01/07/2018 8:59 PM Clinical History/Comments: femur fracture in traction Comparisons: 6 hours prior. TECHNIQUE: AP and lateral views of the proximal and distal right femur. FINDINGS: The patient is status post right total knee arthroplasty. There is a known oblique fracture through the distal aspects of the right femur involving the proximal components of the femoral arthroplasty hardware. Degree of angulation and displacement is overall little changed on the frontal projection with progressive anterior displacement and angulation on the lateral projection. Degree of overriding and foreshortening of the fracture fragment is stable. Erika Urena MD IMG DIAGNOSTIC IMAGI NG ORDERABLES * EKG 12-LEAD (01/07/2018 19:27 EDT) 01/07/2018 19:2 7 EDT Narrative [facility] EKG - 01/09/2018 6:37 EDT ?[facility] Emergency ? Test Date: ?2018-01-07 Pat Name: ? JAZZ BROTHERS ?Department: ?? ED ? Room: ? AC03 Gender: ? Male ? Otolaryngologist: ?? [id number] : ?1940 ? Requested By: BOOKER LICEA I Order Number: [id number] ? Reading MD: ?? VINAYAK GROVES MD ? Measurements Intervals ?[place] ? Rate: ? 64 ? P: ?-1 OK: ? 221 ?QRS: ?-2 QRSD: ? 85 ? T: ?37 QT: ? 417 ? QTc: ?433 ? Interpretive Statements SINUS RHYTHM WITH FIRST DEGREE AV BLOCK OTHERWISE NORMAL EKG. No previous ECG available for comparison I reviewed the tracing and have either agreed or edited the findings in this report. Electronically Signed On 01-09-2018 6:37:13 EDT by VINAYAK GROVES MD. Procedure Note Vinayak Groves MD - 01/09/[address] [facility] Emergency Test Date: 2018-01-07 Pat Name: JAZZ BROTHERS Department: ED Room: [facility] Gender: Male Otolaryngologist: [id number] : 1940 Requested By: BOOKER LICEA I Order Number: [id number] Reading MD: VINAYAK GROVES MD Measurements Intervals [place] Rate: 64 P: -1 OK: 221 QRS: -2 QRSD: 85 T: 37 QT: 417 QTc: 433 Interpretive Statements SINUS RHYTHM WITH FIRST DEGREE AV BLOCK OTHERWISE NORMAL EKG. No previous ECG available for comparison I reviewed the tracing and have either agreed or edited the findings inthis report. Electronically Signed On 01-09-2018 6:37:13 EDT by VINAYAK NEVAREZ. Vinayak Melo MD CARDIAC ECG ORDERABL ES Performing Organization Address City/[facility]/ZIP Co de Phone Number [facility] EKG * PTT (01/07/2018 19:21 EDT) PTT 30 26 - 37 secs 01/07/2018 19:54 EDT [facility] Blood specimen (specimen) BLOOD SPECIMEN / Unknown 01/07/2018 19:21 EDT 01/07/2018 19:30 EDT Vinayak Melo MD HEMATOLOGY & PF4 ORD ERABLES Performing Organization Address City/[facility]/ZIP Co de Phone Number [facility] [address] [place] [address] * PROTIME (01/07/2018 19:21 EDT) Pro Time 12.1 10.3 - 13.4 secs 01/07/2018 19:54 [facility] Comment:NOTE NEW REFERENCE Laura ANDERSON OF SEP 18 2017 I.N.R. 1.0 0.9 - 1.1 Ratio 01/07/2018 19:54 [facility] Comment: Moderate Intensity Coumadin INR = 2.0-3.0 Adjustments in anticoagulant therapy dose should be based upon the INR and NOT the Pro Time. Blood specimen (specimen) BLOOD SPECIMEN / Unknown 01/07/2018 19:21 EDT 01/07/2018 19:30 EDT Vinayak Melo MD HEMATOLOGY & PF4 ORD ERABLES [facility] [address] [place] [address] * (ABNORMAL) BASIC METABOLIC PANEL (BMP) (01/07/2018 19:21 EDT) Sodium 136 136 - 145 mEq/L 01/07/2018 20:03 [facility] Potassium 3.7 3.5 - 5.0 mEq/L 01/07/2018 20:03 [facility] Chloride 109 96 - 110 mEq/L 01/07/2018 20:03 [facility] CO2 22 22 - 32 mEq/L 01/07/2018 20:03 [facility] BUN 25 10 - 26 mg/dl 01/07/2018 20:03 [facility] Creatinine 1.06 0.66 - 1.25 mg/dl 01/07/2018 20:03 [facility] GFR, Calculated 67 >60 ml/min/1.7 3m2 01/07/2018 20:03 [facility] Comment: eGFR calculated using CKD-EPI equation for non Americans. Multiply eGFR by 1.16 for Americans. Calcium 7.3(L) 8.5 - 10.5 mg/dl 01/07/2018 20:03 [facility] Calculated Calcium 8.3(L) 8.5 - 10.5 mg/dl 01/07/2018 20:03 [facility] Glucose, Serum 73 70 - 100 mg/dl 01/07/2018 20:03 [facility] Fasting? Unknown 01/07/2018 20:03 [facility] Blood specimen (specimen) BLOOD SPECIMEN / Unknown 01/07/2018 19:21 EDT 01/07/2018 19:30 EDT Vinayak Melo MD CHEMISTRY & BLOOD GA S ORDERABLES [facility] [address] [place] [address] * (ABNORMAL) HEMAGRAM AND DIFFERENTIAL (01/07/2018 19:21 EDT) WBC 6.87 4.0 - 10.4 K/cmm 01/07/2018 19:42 [facility] RBC 3.62(L) 4.36 - 5.78 M/cmm 01/07/2018 19:42 [facility] Hemoglobin 10.7(L) 13.8 - 17.3 gm/dl 01/07/2018 19:42 [facility] HCT 31.1(L) 39.5 - 50.2 % 01/07/2018 19:42 [facility] MCV 86 81 - 95 fl 01/07/2018 19:42 [facility] MCH 29.6 27.6 - 33.0 pg 01/07/2018 19:42 [facility] MCHC 34.4 32.8 - 36.4 gm/dl 01/07/2018 19:42 [facility] RDW-CV 13.5 <14.2 % 01/07/2018 19:42 [facility] RDW-SD 42.7 <46.0 fl 01/07/2018 19:42 [facility] PLT 124(L) 141 - 377 K/cmm 01/07/2018 19:42 [facility] MPV 10.3 9.5 - 12.7 fl 01/07/2018 19:42 [facility] % Neutrophils 73.4 % 01/07/2018 19:42 [facility] % Lymphocytes 18.0 % 01/07/2018 19:42 [facility] % Monocytes 7.0 % 01/07/2018 19:42 [facility] % Eosinophils 0.7 % 01/07/2018 19:42 [facility] % Basophils 0.6 % 01/07/2018 19:42 [facility] % Immature Grans 0.3 % 01/07/2018 19:42 [facility] ABS Neutrophils 5.04 2.20 - 8.85 K/cmm 01/07/2018 19:42 [facility] ABS Lymphs 1.24 1.09 - 3.30 K/cmm 01/07/2018 19:42 [facility] ABS Monocytes 0.48 0.1 - 0.8 K/cmm 01/07/2018 19:42 [facility] ABS Eosinophils 0.05 0.03 - 0.61 K/cmm 01/07/2018 19:42 [facility] ABS Basophils 0.04 0.01 - 0.11 K/cmm 01/07/2018 19:42 [facility] ABS Immature Grans 0.02 0 - 0.06 K/cmm 01/07/2018 19:42 [facility] Type of Diff: Automated 01/07/2018 19:42 [facility] Blood specimen (specimen) BLOOD SPECIMEN / Unknown 01/07/2018 19:21 EDT 01/07/2018 19:30 EDT Vinayak Melo MD PACKAGES & DNA PROBE ORDERABLES [facility] [address] [place] [address] documented in this encounter Visit Diagnoses Diagnosis 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 Latricia-prosthetic fracture around prosthetic joint 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, initial encounter Coronary artery disease involving [place] heart with angina pectoris, unspecified vessel or lesion type ([facility]) Hypertension, unspecified type Hyperlipidemia, unspecified hyperlipidemia type Acute renal failure superimposed on stage 3 chronic kidney disease, unspecified acute renal failure type Hyponatremia Hyposmolality and/or hyponatremia HTN (hypertension) Unspecified essential hypertension Acute blood loss anemia Acute posthemorrhagic anemia documented in this encounter Administered Medications Inactive Administered Medications - up to 3 most recent administrations Medication Order MAR Action Action Date Dose Rate Site acetaminophen (TYLENOL) tablet 1,000 mg 1,000 mg, oral, EVERY 6 HOURS, First dose on Nilda 01/08/18 at 0000, Until Discontinued, Routine Given 01/13/2018 11:40 EDT 1,000 mg Given 01/12/2018 17:32 EDT 1,000 mg Given 01/12/2018 12:22 EDT 1,000 mg acetaminophen (TYLENOL) tablet 1,000 mg 1,000 mg, oral, PRN, 1 dose, Starting on Fri01/09/18 at 1814, Until Fri01/09/18 at 1932, Fever, Routine, Recovery (only) Given 01/09/2018 19:32 EDT 1,000 mg ascorbic acid (vitamin C) (VITAMIN C) tablet 500 mg 500 mg, oral, DAILY, First dose on Nilda 01/08/18 at 0900, Until Discontinued, Routine Given 01/12/2018 9:19 EDT 50 0 mg Given 01/08/2018 11:47 EDT 500 mg aspirin chewable tablet 81 mg 81 mg, oral, DAILY, First dose on [facility] 01/08/18 at 0900, Until Discontinued, Routine Given 01/13/2018 9:07 EDT 81 mg Given 01/12/2018 9:20 EDT 81 mg Given 01/11/2018 9:30 EDT 81 mg atorvastatin (LIPITOR) tablet 80 mg 80 mg, oral, DAILY, First dose on Nilda 01/08/18 at 0900, Until Discontinued, Routine Given 01/13/2018 9:07 EDT 80 mg Given 01/12/2018 9:20 EDT 80 mg Given 01/11/2018 9:31 EDT 80 mg benzocaine-menthol (CEPACOL) 15-3.6 mg per lozenge 1 Lozenge 1 Lozenge, buccal, PRN, Starting on Fri01/09/18 at 2144, Until Fri01/13/18 at 1436, Pain, Routine Given 01/09/2018 22:01 EDT 1 Lozenge buPROPion (WELLBUTRIN SR) SR tablet 150 mg 150 mg, oral, 2 TIMES DAILY, First dose on Nilda 01/08/18 at 1100, Until Discontinued, Routine Given 01/13/2018 9:07 EDT 150 mg Given 01/12/2018 20:56 EDT 150 mg Given 01/12/2018 9:20 EDT 150 mg ceFAZolin (ANCEF) 2,000 mg in sodium chloride 0.9% 50 mL IVPB 2,000 mg, intravenous, Administer over 30 Minutes, EVERY 8 HOURS, 4 doses, First dose on 01/10/18 at 0000, Last dose on Fri01/11/18 at 0000, Routine Given 01/10/2018 23:18 EDT 2,000 mg Given 01/10/2018 16:33 EDT 2,000 mg Given 01/10/2018 8:16 EDT 2,000 mg ceFAZolin (ANCEF) syringe 2 g 2 g, intravenous, Administer over 10 Minutes, METER TESTER POLYPHASE TO O.R., 1 dose, First dose on Fri01/09/18 at 0700, Routine Given by Other 01/09/2018 15:36 EDT 2 g cholecalciferol (Vitamin D3) tablet 2,000 Units 2,000 Units, oral, DAILY, First dose on [place] 01/08/18 at 0900, Until Discontinued, Routine Given 01/12/2018 9:20 EDT 2,000 Units Given 01/08/2018 11:47 EDT 2,000 Units clopidogrel (PLAVIX) tablet 75 mg 75 mg, oral, DAILY, First dose on [place] 01/08/18 at 0900, Until Discontinued, Routine Given 01/13/2018 9:07 EDT 75 mg Given 01/12/2018 9:20 EDT 75 mg Given 01/11/2018 9:31 EDT 75 mg diphenhydrAMINE (BENADRYL) injection 25 mg 25 mg, intravenous, NOW X1, 1 dose, On Fri01/11/18 at 2045, STAT Given 01/11/2018 20:32 EDT 25 mg docusate sodium (COLACE) capsule 200 mg 200 mg, oral, 2 TIMES DAILY, First dose on Fri01/07/18 at 2130, Until Discontinued, Routine Given 01/13/2018 9:08 EDT 20 0 mg Given 01/12/2018 20:56 EDT 200 mg Given 01/12/2018 9:19 EDT 200 mg enoxaparin (LOVENOX) injection 30 mg 30 mg, subcutaneous, EVERY 12 HOURS, First dose on Fri01/13/18 at 1115, Until Discontinued, Routine Given 01/13/2018 11:33 EDT 30 mg HYDROmorphone (DILAUDID) tablet 2-4 mg 2-4 mg, oral, EVERY 4 HOURS PRN, Starting on Fri01/07/18 at 2128, Until Fri01/13/18 at 1041, Pain, Routine Given 01/08/2018 23:55 EDT 4 mg Given 01/08/2018 5:15 EDT 4 mg Given 01/07/2018 22:22 EDT 4 mg HYDROmorphone (DILAUDID) tablet 2-4 mg 2-4 mg, oral, EVERY 30 MINUTES PRN, 2 doses, Starting on Fri01/09/18 at 1814, Until Fri01/09/18 at 2032, Pain, Routine, Recovery (only) Given 01/09/2018 20:00 EDT 4 mg lactated ringers BOLUS 500 mL 500 mL, intravenous, NOW X1, 1 dose, On Fri01/10/18 at 1230, Routine Given 01/10/2018 12:10 EDT 500 mL losartan (COZAAR) tablet 100 mg 100 mg, oral, DAILY, First dose (after last modification) on Fri01/13/18 at 0900, Until Discontinued, Routine Given 01/13/2018 9:07 EDT 100 mg magnesium hydroxide (MILK OF MAGNESIA) 400 mg/5 mL suspension 30 mL 30 mL, oral, DAILY, First dose on Fri01/11/18 at 0900, Until Discontinued, Routine Given 01/11/2018 9:33 EDT 30 mL methocarbamol (ROBAXIN) tablet 1,000 mg 1,000 mg, oral, EVERY 6 HOURS PRN, Starting on Fri01/07/18 at 2128, Until Fri01/13/18 at 1436, muscle spasms, Routine Given 01/12/2018 14:41 EDT 1,000 mg Given 01/11/2018 15:31 EDT 1,000 mg Given 01/10/2018 20:01 EDT 1,000 mg metoprolol XL (TOPROL-XL) tablet 12.5 mg 12.5 mg, oral, DAILY, First dose on Fri01/08/18 at 0900, Until Discontinued, Routine Given 01/12/2018 9:19 EDT 12.5 mg Given 01/11/2018 9:31 EDT 12.5 mg Given 01/09/2018 9:22 EDT 12.5 mg metoprolol XL (TOPROL-XL) tablet 12.5 mg 12.5 mg, oral, 2 TIMES DAILY, First dose (after last modification) on Fri01/13/18 at 0900, Until Discontinued, Routine Given 01/13/2018 9:07 EDT 12.5 mg morphine injection 2 mg 2 mg, intravenous, EVERY 4 HOURS PRN, Starting on Fri01/07/18 at 1900, Until Fri01/09/18 at 2033, Pain, STAT Given 01/07/2018 19:08 EDT 2 mg Multivitamins with Minerals tablet 1 Tab 1 Tablet, oral, DAILY, First dose on Fri01/08/18 at 0900, Until Discontinued, Routine Given 01/11/2018 9:34 EDT 1 Tablet Given 01/08/2018 11:46 EDT 1 Tablet ondansetron (PF) (ZOFRAN) injection 4 mg 4 mg, intravenous, EVERY 6 HOURS PRN, Starting on Fri01/07/18 at 2128, Until Fri01/13/18 at 1436, Nausea, Routine ondansetron (ZOFRAN-ODT) disintegrating tablet 4 mg 4 mg, oral, EVERY 6 HOURS PRN, Starting on Fri01/07/18 at 2128, Until Fri01/13/18 at 1436, Nausea, Routine Given 01/11/2018 19:30 EDT 4 mg polyethylene glycol 3350 (MIRALAX) packet 17 g 17 g, oral, DAILY, First dose on Fri01/08/18 at 0900, Until Discontinued, Routine Given 01/11/2018 9:33 EDT 17 g Given 01/10/2018 9:30 EDT 17 g Given 01/08/2018 11:45 EDT 17 g senna (SENOKOT) tablet 2 Tab 2 Tablet, oral, 2 TIMES DAILY, First dose on Fri01/07/18 at 2130, Until Discontinued, Routine Given 01/13/2018 9:07 EDT 2 Tablets Given 01/12/2018 20:56 EDT 2 Tablets Given 01/11/2018 9:33 EDT 2 Tablets sodium chloride 0.9 % (NS) infusion at 50 mL/hr, intravenous, CONTINUOUS, Starting on Fri01/08/18 at 0000, Until Fri01/08/18 at 0834, Routine New Bag 01/08/2018 0:11 EDT 50 mL /hr sodium chloride 0.9 % (NS) infusion at 50 mL/hr, intravenous, CONTINUOUS, Starting on Fri01/09/18 at 0000, Until Fri01/09/18 at 2011, Routine New Bag 01/08/2018 23:52 EDT 50 m L/hr sodium chloride 0.9 % (NS) infusion at 50 mL/hr, intravenous, CONTINUOUS, Starting on Fri01/09/18 at 2030, Until Fri01/10/18 at 2014, Routine Restarted 01/10/2018 16:33 EDT 50 m L/hr Rate Documented 01/10/2018 7:21 EDT 50 mL/hr Rate Documented 01/09/2018 21:05 EDT 50 mL/hr sodium chloride 0.9 % BOLUS 500 mL 500 mL, intravenous, NOW X1, 1 dose, On Fri01/11/18 at 2045, STAT New Bag 01/11/2018 20:33 EDT 500 mL temazepam (RESTORIL) capsule 15 mg 15 mg, oral, AT BEDTIME PRN, Starting on Fri01/07/18 at 2128, Until Fri01/13/18 at 1436, Sleep, Routine Given 01/12/2018 21:23 EDT 15 mg Given 01/11/2018 21:17 EDT 15 mg Given 01/10/2018 22:27 EDT 15 mg traMADol (ULTRAM) tablet 50 mg 50 mg, oral, EVERY 6 HOURS PRN, Starting on Fri01/07/18 at 2128, Until Fri01/13/18 at 1436, Pain, Routine Given 01/10/2018 19:09 EDT 50 mg Given 01/10/2018 8:16 EDT 50 mg Given 01/09/2018 22:01 EDT 50 mg zinc sulfate (ZINCATE) capsule 220 mg 220 mg, oral, DAILY, First dose on Nilda 01/08/18 at 0900, Until Discontinued, Routine Given 01/12/2018 9:21 EDT 220 mg Given 01/08/2018 11:47 EDT 220 mg documented in this encounter Discontinued Medications Medication Sig Discontinue Reason Start Date End Da te losartan-hydrochlorothiaz dianelys (HYZAAR) 100-25 mg per tablet Take 1 Tab by mouth daily. 01/13/2018 documented as of this encounter Historical Medications * This list may reflect changes made after this encounter. Medication Sig Dispensed Refills Start Date End Date nitroGLYCERIN (NITROSTAT) 0.[address] 1 Tablet under the tongue every 5 minutes as needed for Chest Pain. temazepam (RESTORIL) 15 mg capsule Take 1 Capsule by mouth at bedtime as needed for Sleep. pravastatin (PRAVACHOL) 20 mg tablet Take 1 Tablet by mouth at bedtime. buPROPion (WELLBUTRIN SR) 150 mg SR tablet Take 1 Tablet by mouth 2 times daily. aspirin 81 mg EC tablet Take 1 Tablet by mouth daily. metoprolol (LOPRESSOR) 12.5 mg Take 12.5 mg by mouth 2 times daily. 09/22/2019 clopidogrel (PLAVIX) 75 mg tablet Take 75 mg by mouth daily. 08/06/2019 losartan-hydrochlorothia zide (HYZAAR) 100-25 mg per tablet Take 1 Tab by mouth daily. 01/13/2018 added in this encounter Active and Recently Administered Medications Times are shown in EDT. Scheduled Medication Order 01/11/2018 01/12/2018 01/13/2018 acetaminophen (TYLENOL) tablet 1,000 mg(Linked Group 1) 1,000 mg, oral, EVERY 6 HOURS, First dose on Nilda 01/08/18 at 0000, Until Discontinued, Routine 0553 (Given - Provider: Berta Bartlett RN)1147 (Given - Provider: Lien Suh RN)1805 (Given - Provider: Lien Suh RN)2326 (Hold - Provider: Berta Bartlett RN - Reason: Other - Comment: pt requested not to be woken for tylenol) 0554 (Given - Provider: Berta Bartlett RN)1222 (Given - Provider: Betty Frances)1732 (Given - Provider: Leo Enriquez RN)2331 (Not Given - Provider: Griselda Simeon RN - Reason: Patient/family refused) 0607 (Not Given - Provider: Griselda Simeon RN - Reason: Patient/family refused)1140 (Given - Provider: Lien Suh RN) ascorbic acid (vitamin C) (VITAMIN C) tablet 500 mg 500 mg, oral, DAILY, First dose on Nilda 01/08/18 at 0900, Until Discontinued, Routine 0921 (Not Given - Provider: Lien Suh RN - Reason: Patient/family refused) 0919 (Given - Provider: Betty Frances) 0858 (Not Given - Provider: Lien Suh RN - Reason: Patient/family refused) aspirin chewable tablet 81 mg 81 mg, oral, DAILY, First dose on Nilda 01/08/18 at 0900, Until Discontinued, Routine 0930 (Given - Provider: Lien Suh RN) 0920 (Given - Provider: Betty Frances) 0907 (Given - Provider: Lien Suh RN) atorvastatin (LIPITOR) tablet 80 mg 80 mg, oral, DAILY, First dose on Nilda 01/08/18 at 0900, Until Discontinued, Routine 0931 (Given - Provider: Lien Suh RN) 0920 (Given - Provider: Betty Frances) 0907 (Given - Provider: Lien Suh RN) buPROPion (WELLBUTRIN SR) SR tablet 150 mg 150 mg, oral, 2 TIMES DAILY, First dose on Nilda 01/08/18 at 1100, Until Discontinued, Routine 0930 (Given - Provider: Lien Suh RN)2031 (Given - Provider: Berta Bartlett RN) 0920 (Given - Provider: Betty Frances)2055 (Given - Provider: Griselda Simeon RN) 0907 (Given - Provider: Lien Suh RN) cholecalciferol (Vitamin D3) tablet 2,000 Units 2,000 Units, oral, DAILY, First dose on Nilda 18 at 0900, Until Discontinued, Routine 0934 (Not Given - Provider: Lien Suh RN - Reason: Patient/family refused) 0920 (Given - Provider: Betty Frances) 0858 (Not Given - Provider: Lien Suh RN - Reason: Patient/family refused) clopidogrel (PLAVIX) tablet 75 mg 75 mg, oral, DAILY, First dose on Fri01/08/18 at 0900, Until Discontinued, Routine 0931 (Given - Provider: Lien Suh RN) 0920 (Given - Provider: Betty Frances) 0907 (Given - Provider: Lien Suh RN) diphenhydrAMINE (BENADRYL) injection 25 mg (COMPLETED) 25 mg, intravenous, NOW X1, 1 dose, On Fri01/11/18 at 2045, STAT 2031 (Given - Provider: Berta Bartlett, MANAN) docusate sodium (COLACE) capsule 200 mg 200 mg, oral, 2 TIMES DAILY, First dose on Fri01/07/18 at 2130, Until Discontinued, Routine 0932 (Given - Provider: Lien Suh RN)2031 (Given - Provider: Berta Bartlett RN) 09 (Given - Provider: Betty Frances)2055 (Given - Provider: Griselda Simeon RN) 0908 (Given - Provider: Lien Suh RN) enoxaparin (LOVENOX) injection 30 mg 30 mg, subcutaneous, EVERY 12 HOURS, First dose on Fri01/13/18 at 1115, Until Discontinued, Routine 1133 (Given - Provider: Lien Suh RN) losartan (COZAAR) tablet 100 mg 100 mg, oral, DAILY, First dose (after last modification) on Fri01/13/18 at 0900, Until Discontinued, Routine 0907 (Given - Provider: Lien Suh RN) magnesium hydroxide (MILK OF MAGNESIA) 400 mg/5 mL suspension 30 mL 30 mL, oral, DAILY, First dose on Fri01/11/18 at 0900, Until Discontinued, Routine 0933 (Given - Provider: Lien Suh RN) 0921 (Not Given - Provider: Betty Frances - Reason: Order parameters not met) 0857 (Hold - Provider: Lien Suh RN - Reason: Patient/family refused) metoprolol XL (TOPROL-XL) tablet 12.5 mg (CANCELED) 12.5 mg, oral, DAILY, First dose on Fri01/08/18 at 0900, Until Discontinued, Routine 0931 (Given - Provider: Lien Suh RN) 0919 (Given - Provider: Betty Frances) metoprolol XL (TOPROL-XL) tablet 12.5 mg 12.5 mg, oral, 2 TIMES DAILY, First dose (after last modification) on Fri01/13/18 at 0900, Until Discontinued, Routine 0907 (Given - Provider: Lien Suh, MANAN) Multivitamins with Minerals tablet 1 Tab 1 Tablet, oral, DAILY, First dose on Fri01/08/18 at 0900, Until Discontinued, Routine 0934 (Given - Provider: Lien Suh RN) 0921 (Not Given - Provider: Betty Frances - Reason: Medication not available) 0858 (Not Given - Provider: Lien Suh RN - Reason: Patient/family refused) polyethylene glycol 3350 (MIRALAX) packet 17 g 17 g, oral, DAILY, First dose on Fri01/08/18 at 0900, Until Discontinued, Routine 0933 (Given - Provider: Lien Suh RN) 0921 (Not Given - Provider: Betty Frances - Reason: Order parameters not met) 0857 (Hold - Provider: Lien Suh RN - Reason: Patient/family refused) senna (SENOKOT) tablet 2 Tab 2 Tablet, oral, 2 TIMES DAILY, First dose on Fri01/07/18 at 2130, Until Discontinued, Routine 0933 (Given - Provider: Lien Suh RN)2119 (Not Given - Provider: Berta Bartlett RN - Reason: Patient/family refused) 0921 (Not Given - Provider: Betty Frances - Reason: Order parameters not met)2055 (Given - Provider: Griselda Simeon RN) 0907 (Given - Provider: Lien Suh RN) sodium chloride 0.9 % BOLUS 500 mL (COMPLETED) 500 mL, intravenous, NOW X1, 1 dose, On Fri01/11/18 at 2045, STAT 2032 (New Bag - Provider: Berta Bartlett RN) zinc sulfate (ZINCATE) capsule 220 mg 220 mg, oral, DAILY, First dose on Nilda 01/08/18 at 0900, Until Discontinued, Routine 0921 (Not Given - Provider: Lien Suh RN - Reason: Patient/family refused) 0921 (Given - Provider: Betty Frances) 0857 (Not Given - Provider: Lien Suh RN - Reason: Patient/family refused) PRN Medication Order 01/11/2018 01/12/2018 01/13/2018 benzocaine-menthol (CEPACOL) 15-3.6 mg per lozenge 1 Lozenge 1 Lozenge, buccal, PRN, Starting on Fri01/09/18 at 2144, Until Fri01/13/18 at 1436, Pain, Routine calcium carbonate (TUMS) 200 mg calcium (500 mg) per chewable tablet tablet,chewable 2 Tab 2 Tablet, oral, EVERY 2 HOURS PRN, Starting on Fri01/07/18 at 2128, Until Fri01/13/18 at 1436, epigastric stress, Routine methocarbamol (ROBAXIN) tablet 1,000 mg 1,000 mg, oral, EVERY 6 HOURS PRN, Starting on Fri01/07/18 at 2128, Until Fri01/13/18 at 1436, muscle spasms, Routine 1531 (Given - Provider: Lupis Beckman RN) 1441 (Given - Provider: Betty Frances) nitroGLYCERIN (NITROSTAT) SL tablet 0.4 mg 0.4 mg, sublingual, EVERY 5 MIN PRN, Starting on Fri01/07/18 at 2128, Until Fri01/13/18 at 1436, Chest Pain, Routine ondansetron (PF) (ZOFRAN) injection 4 mg(Linked Group 2) 4 mg, intravenous, EVERY 6 HOURS PRN, Starting on Fri01/07/18 at 2128, Until Fri01/13/18 at 1436, Nausea, Routine 1930 (See Alternative - Provider: Berta Bartlett, MANAN) ondansetron (ZOFRAN-ODT) disintegrating tablet 4 mg(Linked Group 2) 4 mg, oral, EVERY 6 HOURS PRN, Starting on Fri01/07/18 at 2128, Until Fri01/13/18 at 1436, Nausea, Routine 1929 (Given - Provider: Berta Bartlett, MANAN) temazepam (RESTORIL) capsule 15 mg 15 mg, oral, AT BEDTIME PRN, Starting on Fri01/07/18 at 8, Until Fri01/13/18 at 1436, Sleep, Routine 2116 (Given - Provider: Berta Bartlett, RN) 2122 (Given - Provider: Griselda Simeon RN) traMADol (ULTRAM) tablet 50 mg 50 mg, oral, EVERY 6 HOURS PRN, Starting on Fri01/07/18 at 2128, Until Fri01/13/18 at 1436, Pain, Routine Linked Groups Order Group 1: acetaminophen (TYLENOL) tablet 1,000 mgJump to med 1,000 mg, oral, EVERY 6 HOURS, First dose on Nilda 01/08/18 at 0000, Until Discontinued, Routine Or acetaminophen (TYLENOL) suppository 975 mg (CANCELED) 975 mg, rectal, EVERY 6 HOURS, First dose on Fri01/08/18 at 0000, Until Discontinued, Routine Group 2: ondansetron (ZOFRAN-ODT) disintegrating tablet 4 mgJump to med 4 mg, oral, EVERY 6 HOURS PRN, Starting on Fri01/07/18 at 2127, Until Fri01/13/18 at 1436, Nausea, Routine Or ondansetron (PF) (ZOFRAN) injection 4 mgJump to med 4 mg, intravenous, EVERY 6 HOURS PRN, Starting on Fri01/07/18 at 2127, Until Fri01/13/18 at 1436, Nausea, Routine documented in this encounter Orders Medications Ordered That Blayne ht Not Have Been Administered Count Last Ordered Date First Ordered Date hydroCHLOROthiazide (HYDRODI URIL) tablet 12.5 mg 1 01/12/2018 losartan (COZAAR) tablet 50 mg 1 01/12/2018 metoprolol XL (TOPROL-XL) tablet 25 mg 1 bisacodyl (DULCOLAX) suppository 10 mg 2 01/07/2018 acetaminophen (TYLENOL) solu tion unit dose cup 995 mg 1 01/09/2018 atropine 0.1 mg/mL syringe 0.5 mg 1 018 fentaNYL citrate (PF) 50 mcg /mL injection 25-50 mcg 1 01/09/2018 HYDROmorphone injection (DIL AUDID) 0.5 mg/1 mL syringe 0.25-0.5 mg 1 01/09/2018 lactated ringers (LR) infusion 1 01/09/2018 naloxone (NARCAN) injection 0.2 mg 1 2017 ondansetron (PF) (ZOFRAN) injection 4 mg 2 01/09/2018 01/07/2018 phenylephrine HCl in 0.9% Na Cl (NEO_SYNEPHRINE) 20 mg/250 mL (80 mcg/mL) infusion solution 1 01/09/2018 ceFAZolin (ANCEF) syringe 2 g 2 01/08/2018 01/07/2018 acetaminophen (TYLENOL) suppository 975 mg 1 01/07/2018 calcium carbonate (TUMS) 200 mg calcium (500 mg) per chewable tablet tablet,chewable 2 Tab 1 01/07/2018 ceFAZolin (ANCEF) 2,000 mg i n sodium chloride 0.9% 50 mL IVPB 1 01/07/2018 hydroCHLOROthiazide (HYDRODI URIL) tablet 25 mg 1 01/07/2018 losartan (COZAAR) tablet 100 mg 1 8 nitroGLYCERIN (NITROSTAT) SL tablet 0.4 mg 1 01/07/2018 povidone-iodine solution 5% (Skin and Nasal Antiseptic) 1 Kit 1 01/07/2018 Diet Count Last Ordered Date First Orde red Date DISCHARGE DIET 1 01/13/2018 Nursing Count Last Ordered Date First Orde red Date ACTIVITY INSTRUCTIONS 2 01/13/2018 BATHING INSTRUCTIONS 1 01/13/2018 WOUND CARE INSTRUCTIONS 2 01/13/2018 APPLY WARMING BLANKET 1 01/09/2018 CARRILLO CATHETER - DISCONTINUE 1 01/09/2018 INSERT CARRILLO CATHETER 1 01/09/[address] PL[address] SEQUENTIAL COMPRESSION DEVICE 1 01/09 TRACTION CARE 1 01/08/2018 CONTRAINDICATION TO ANTICOAG ULATION THERAPY 1 01/07/2018 CARRILLO/UROLOGY CARE 1 01/07/2018 STRAIGHT CATH 1 01/07/2018 IV Count Last Ordered Date First Orde red Date IV REQUEST 1 01/09/2018 Admission Count Last Ordered Date First Orde red Date ED BED REQUEST 1 01/07/2018 STATUS: INPATIENT ACUTE ADMISSION 1 018 Transfer Count Last Ordered Date First Orde red Date NOTIFY PPS OF DISCHARGE COMPLETE 1 01/14/20 18 NOTIFY PPS PATIENT ARRIVAL IN PACU 1 2017 NOTIFY PPS PATIENT TRANSFERRED OUT OF PACU 1 01/09/2018 PPS NOTIFICATION OF PATIENT ARRIVAL ON UNIT 3 01/09/2018 01/07/2018 CHANGE ATTENDING TO: 1 01/08/2018 NOTIFY PPS OF ROOM CHANGE COMPLETE 1 2017 UR PATIENT STATUS CHANGE 1 01/08/2018 Discharge Count Last Ordered Date First Orde red Date DISCHARGE PATIENT 1 01/13/2018 Legal Count Last Ordered Date First Orde red Date MISCELLANEOUS DISCHARGE INSTRUCTIONS 2 12/17 Consult to Social Work Count Last Ordered Date First Ordered Date CONSULT SOCIAL WORK 1 01/07/2018 documented in this encounter Care Teams Card Tender Relationship Specialty Start Date End Date Karo Otero MD [address] [place] [address] PCP - General 01/07/18 04/06/23 documented as of this encounter
--- OUTSIDE RECORDS SUMMARY | 2024-03-10 10:56 | XMS_ITS | Encounter Summary ---
Author Organization [facility] Address [address] [place] [address] Care Team Providers Care Forensic Structural Engineer Name Role Phone Karo Otero MD Primary Care Provider [phone] Reason for Referral * Radiology Services (Routine) - Closed Specialty Diagnoses / Procedures Referred By Contac t Referred To Contact Diagnoses Pain in right femur Chronic pain of right knee Procedures KNEE 1 OR 2 VIEWS Mauricio Dodson MD MSc [address] [address] Referral ID Status Reason Start Date Expiration Date Visits Re quested Visits Authorized [id number] Closed 12/08/2018 1 1 * Radiology Services (Routine) - Closed Specialty Diagnoses / Procedures Referred By Contac t Referred To Contact Diagnoses Pain in right femur Chronic pain of right knee Procedures KNEE 1 OR 2 VIEWS Mauricio Dodson MD MSc [address] [address] Referral ID Status Reason Start Date Expiration Date Visits Re quested Visits Authorized [id number] Closed 12/08/2018 1 1 * Radiology Services (Routine) - Closed Specialty Diagnoses / Procedures Referred By Contac t Referred To Contact Diagnoses Pain in right femur Procedures FEMUR 2 OR MORE VIEWS Mauricio Dodson MD MSc [address] [address] Referral ID Status Reason Start Date Expiration Date Visits Re quested Visits Authorized [id number] Closed 12/08/2018 1 1 Encounter Details Date Type Department Care Team (Late st Contact Info) Description 12/04/2018 Orders Only [facility] Total Joint Program - [address] [address] Mauricio Dodson MD MSc [facility] [address] [place] [address] Pain in right femur (Primary Dx); Chronic pain of right knee Social History Tobacco Use Types Packs/Day Years [...] [facility] Ophthalmology - [address] [phone] Anjum Miranda MD [address] [place] [address], [address] [place] [address] documented as of this encounter Procedures Procedure Name Priority Date/Time Associated Diagnosis Comments FEMUR 2 OR MORE VIEWS Routine 12/09/2018 10:45 EDT Pain in right femur KNEE 1 OR 2 VIEWS Routine 12/09/2018 10: 45 EDT Pain in right femur Chronic pain of right knee KNEE 1 OR 2 VIEWS Routine 12/09/2018 10: 45 EDT Pain in right femur Chronic pain of right knee documented in this encounter Results * KNEE 1 OR 2 VIEWS (12/09/2018 10:45 EDT) Anatomical Region Laterality Modality Other 12/09/2018 10:4 5 EDT 12/09/2018 12:53 EDT Narrative 12/09/2018 12:53 EDT EXAM/TECHNIQUE: RIGHT KNEE 1 OR 2 VIEWS, RIGHT FEMUR 2 OR MORE VIEWS, LEFT KNEE 1 OR 2 VIEWS ??12/09/2018 10:45 AM HISTORY: ?? 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 FINDINGS / IMPRESSION: AP and lateral views of the right femur and AP and lateral views of the right knee again show postoperative changes related to plate and screw fixation of a periprosthetic femoral fracture in the setting of a right total knee revision arthroplasty with long femoral and tibial stem components. The plate and screw hardware appears intact and unchanged in alignment and there is ongoing healing along the fracture site, with some portions of the fracture lucency remaining visible. The 3 part knee arthroplasty appears intact and well aligned. There is a small suprapatellar knee joint effusion. AP view of the left knee shows no evidence of acute fracture or dislocation. There are mild degenerative changes in the medial and lateral femorotibial compartments. The lack of a lateral view precludes assessment for joint effusion and limits evaluation of the patellofemoral compartment. 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 FINDINGS / IMPRESSION: AP and lateral views of the right femur and AP and lateral views of the right knee again show postoperative changes related to plate and screw fixation of a periprosthetic femoral fracture in the setting of a right total knee revision arthroplasty with long femoral and tibial stem components. The plate and screw hardware appears intact and unchanged in alignment and there is ongoing healing along the fracture site, with some portions of the fracture lucency remaining visible. The 3 part knee arthroplasty appears intact and well aligned. There is a small suprapatellar knee joint effusion. AP view of the left knee shows no evidence of acute fracture or dislocation. There are mild degenerative changes in the medial and lateral femorotibial compartments. The lack of a lateral view precludes assessment for joint effusion and limits evaluation of the patellofemoral compartment. Mauricio Dodson MD MSc [facility] IMG DIAG NOSTIC IMAGING ORDERABLES * KNEE 1 OR 2 VIEWS (12/09/2018 10:45 EDT) Anatomical Region Laterality Modality Other 12/09/2018 10:4 5 EDT 12/09/2018 12:53 EDT Narrative 12/09/2018 12:53 EDT EXAM/TECHNIQUE: RIGHT KNEE 1 OR 2 VIEWS, RIGHT FEMUR 2 OR MORE VIEWS, LEFT KNEE 1 OR 2 VIEWS ??12/09/2018 10:45 AM HISTORY: ?? 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 FINDINGS / IMPRESSION: AP and lateral views of the right femur and AP and lateral views of the right knee again show postoperative changes related to plate and screw fixation of a periprosthetic femoral fracture in the setting of a right total knee revision arthroplasty with long femoral and tibial stem components. The plate and screw hardware appears intact and unchanged in alignment and there is ongoing healing along the fracture site, with some portions of the fracture lucency remaining visible. The 3 part knee arthroplasty appears intact and well aligned. There is a small suprapatellar knee joint effusion. AP view of the left knee shows no evidence of acute fracture or dislocation. There are mild degenerative changes in the medial and lateral femorotibial compartments. The lack of a lateral view precludes assessment for joint effusion and limits evaluation of the patellofemoral compartment. 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 FINDINGS / IMPRESSION: AP and lateral views of the right femur and AP and lateral views of the right knee again show postoperative changes related to plate and screw fixation of a periprosthetic femoral fracture in the setting of a right total knee revision arthroplasty with long femoral and tibial stem components. The plate and screw hardware appears intact and unchanged in alignment and there is ongoing healing along the fracture site, with some portions of the fracture lucency remaining visible. The 3 part knee arthroplasty appears intact and well aligned. There is a small suprapatellar knee joint effusion. AP view of the left knee shows no evidence of acute fracture or dislocation. There are mild degenerative changes in the medial and lateral femorotibial compartments. The lack of a lateral view precludes assessment for joint effusion and limits evaluation of the patellofemoral compartment. Mauricio Dodson MD MSc [facility] IMG DIAG NOSTIC IMAGING ORDERABLES * FEMUR 2 OR MORE VIEWS (12/09/2018 10:45 EDT) Anatomical Region Laterality Modality Other 12/09/2018 10:4 5 EDT 12/09/2018 12:53 EDT Narrative 12/09/2018 12:53 EDT EXAM/TECHNIQUE: RIGHT KNEE 1 OR 2 VIEWS, RIGHT FEMUR 2 OR MORE VIEWS, LEFT KNEE 1 OR 2 VIEWS ??12/09/2018 10:45 AM HISTORY: ?? 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 FINDINGS / IMPRESSION: AP and lateral views of the right femur and AP and lateral views of the right knee again show postoperative changes related to plate and screw fixation of a periprosthetic femoral fracture in the setting of a right total knee revision arthroplasty with long femoral and tibial stem components. The plate and screw hardware appears intact and unchanged in alignment and there is ongoing healing along the fracture site, with some portions of the fracture lucency remaining visible. The 3 part knee arthroplasty appears intact and well aligned. There is a small suprapatellar knee joint effusion. AP view of the left knee shows no evidence of acute fracture or dislocation. There are mild degenerative changes in the medial and lateral femorotibial compartments. The lack of a lateral view precludes assessment for joint effusion and limits evaluation of the patellofemoral compartment. 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 FINDINGS / IMPRESSION: AP and lateral views of the right femur and AP and lateral views of the right knee again show postoperative changes related to plate and screw fixation of a periprosthetic femoral fracture in the setting of a right total knee revision arthroplasty with long femoral and tibial stem components. The plate and screw hardware appears intact and unchanged in alignment and there is ongoing healing along the fracture site, with some portions of the fracture lucency remaining visible. The 3 part knee arthroplasty appears intact and well aligned. There is a small suprapatellar knee joint effusion. AP view of the left knee shows no evidence of acute fracture or dislocation. There are mild degenerative changes in the medial and lateral femorotibial compartments. The lack of a lateral view precludes assessment for joint effusion and limits evaluation of the patellofemoral compartment. Mauricio Dodson MD MSc [facility] IMG DIAG NOSTIC IMAGING ORDERABLES documented in this encounter Visit Diagnoses Diagnosis Pain in right femur- Primary Chronic pain of right knee documented in this encounter Care Teams Forensic Structural Engineer Relationship Specialty Start Date End Date Karo Otero MD [address] [place] [address] PCP - General 01/07/18 04/06/23 documented as of this encounter
--- OUTSIDE RECORDS SUMMARY | 2024-03-10 10:56 | XMS_ITS | Encounter Summary ---
Author Organization [facility] Address [address] [place] [address] Care Team Providers Care Flame Cutting Machine Operator Name Role Phone Karo Otero MD Primary Care Provider [phone] Reason for Referral * PT/OT/ST (Routine) - New Request Specialty Diagnoses / Procedures Referred By Contac t Referred To Contact Diagnoses 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, subsequent encounter Mauricio Dodson MD MSc [address] [address] Referral ID Status Reason Start Date Expiration Date Visits Requested Visits Authorized [id number] New Request Specialty Services Required 03/20/2018 1 1 Question Answer Reason for Request: right femur periprosthetic fracture above his total knee replacement Practice Site (External Referral Only): [facility] [phone] Date of Onset or Injury: 01.07.18 Return Visit to Provider: 06.10.18 Comments Evaluate and treat All modalities accepted, AT/OT/PT ATC services if available and appropriate. weightbearing as tolerated with a walker Encounter Details Date Type Department Care Team (Late st Contact Info) Description 03/20/2018 Orders Only [facility] Total Joint Program - [address] [address] Mauricio Dodson MD MSc [facility] [address] [place] [phone] Periprosthetic fracture around internal prosthetic right [...] Info) Description 04/30/2024 13:00 EDT Office Visit [facility] Ophthalmology - [address] [address] Anjum Miranda MD [address] [place] [address], [address] [place] [phone] Scheduled Referrals Name Type Priority Associated Diagnoses Orde r Schedule AMB CONS/FOLLOW UP PHYSICAL THERAPY Outpatient Referral Routine 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
[2024-03-10 15:03] LABS: Abs Immature Grans 0.03 10^3/uL (0.0-0.06); Absolute Basophil Count 0.04 10^3/uL (0.0-0.2); Absolute Eosinophil Count 0.06 10^3/uL (0.0-0.7); Absolute Lymphocyte Count 3.47 10^3/uL (1.2-3.4); Absolute Monocyte Count 0.61 10^3/uL (0.1-0.8); Absolute Neutrophil Count 3.09 10^3/uL (1.2-6.7); Basophils % 0.5 %; Eosinophils % 0.8 %; HGB 9.7 g/dL (13.5-17.5); Immature Grans % 0.4 %; Lymphocytes % 47.5 %; MCH 28.5 pg (27.0-33.0); MCHC 31.3 % (32.0-36.0); MCV 91 fL (80-95); MPV 10.7 fL (8.0-11.0); Monocytes % 8.4 %; Neutrophils % 42.4 %; Platelet Count 114 10^3/uL (130-400); RDW 14.4 % (11.8-14.1); RDW-SD 48.5 fL
[2024-03-10 15:44] LABS: Anion Gap 9.7 mmol/L (3-11); BUN 25 mg/dL (7-18); CO2 23.3 mmol/L (21.0-32.0); CREATININE 1.8 mg/dL (0.70-1.30); Calcium 8.5 mg/dL (8.5-10.1); Chloride 106 mmol/L (98-107); Estimated GFR 36.66 (mL/min/1.73m2); Ferritin 200 ng/mL (26-388); Glucose 89 mg/dL (74-106); Potassium 4.9 mmol/L (3.5-5.1); Sodium 139 mmol/L (136-145)
[2024-03-10 16:16] LABS: Iron 47 ug/dL (65-175); Total Iron Binding Capacity 212 ug/dL (250-450); Transferrin Sat 22 % (20-55)
== END 2024-03-10 10:45 | disposition home or self-care (01) ==
LOC: NCHCN 10:44
PROVIDERS: PCP Family Medicine; Visit Provider Family Medicine
DX: I10 Essential (primary) hypertension (principal); D64.9 Anemia, unspecified
CPT/HCPCS: 80048; 82728; 83540; 83550; 85025

== ENCOUNTER → 2024-03-29 14:40 | Outpatient (BNVA) | payer MEDICARE, SELFPAY | PROVIDERS: PCP Family Medicine; Referring Provider Family Medicine; Visit Provider Psychiatry & Neurology Neurology | DX: I63.9 Cerebral infarction, unspecified (principal); R06.09 Other forms of dyspnea | CPT/HCPCS: 99213 ==

== ENCOUNTER 2024-06-02 02:12 | Outpatient (CLI) | payer MEDICARE, SELFPAY ==
--- NOTE | 2024-06-02 10:30 | DI.MRI_ITS ---
Exam(s) MR ANGIO BRAIN WO CLINICAL HISTORY: PEDRO cerebral aneurysm,i67.1. TECHNIQUE: Multiplanar multisequence MRA of the brain was performed. COMPARISON: MR MR ANGIO BRAIN WO from 12/01/2023 FINDINGS: Carotid Arteries: No aneurysm, occlusion or significant stenosis. Anterior Cerebral Arteries: Right: No occlusion or significant stenosis. There is again seen a 2 mm protuberance arising from t he proximal A2 segment of the right anterior cerebral artery consistent with the aneurysm. Left: No aneurysm, occlusion or significant stenosis. Middle Cerebral Arteries: Right: No aneurysm, occlusion or significant stenosis. Left: No aneurysm, occlusion or significant stenosis. Posterior Cerebral Arteries: Both the right and left posterior communicating arteries are present sup plying the posterior cerebral arteries. Right: No aneurysm, occlusion or significant stenosis. Left: No aneurysm, occlusion or significant stenosis. Vertebral Arteries: Right: No aneurysm, occlusion or significant stenosis. There is no change in the appearance of the d istal right vertebral artery. Left: No aneurysm, occlusion or significant stenosis. Basilar Artery: No aneurysm, occlusion or significant stenosis. 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 DATA REPOSITORY:
== END 2024-06-02 02:32 ==
LOC: DI 02:12
PROVIDERS: PCP Family Medicine; Visit Provider Psychiatry & Neurology Neurology
DX: I67.1 Cerebral aneurysm, nonruptured (principal)
CPT/HCPCS: 70544

== ENCOUNTER 2024-06-30 12:01 | Emergency (ER) | payer MEDICARE, SELFPAY ==
[2024-06-30] VITALS (23 sets, daily range): BP systolic 118–178; BP diastolic 77–148; PULSE 68–113; RESP 18–28; TEMP 36.6–36.9; O2SAT 98–100
--- NOTE | 2024-06-30 12:00 | DI.RAD_ITS ---
Exam(s) XR PORTABLE CHEST AP EXAM: XR PORTABLE CHEST AP CLINICAL HISTORY: afib w/ rvr, eval for chf TECHNIQUE: 2D digital imaging was performed. COMPARISON: CR XR CHEST 2V PA LATERAL from 01/09/2024 FINDINGS: LUNGS: Clear. No evidence of CHF. No pleural abnormality seen. HEART: Normal size. AORTA: Tortuous and calcified. BONES: Old left rib fractures. Soft tissues: Unremarkable. IMPRESSION: No acute findings. DATA REPOSITORY: RADIATION DOSE DELIVERED:
--- NOTE | 2024-06-30 12:00 | RT.EKG_ITS ---
APPROVED REPORT Exam: Resting ECG Reason for Exam: rapid heart rate Patient Location: E HR:89 bpm ECG Measurements Heart Rate 89 AXIS OH [id number] P [id number] QRSd 100 QRS -37 QT 372 T 50 QTc 453 Conclusion Atrial flutter...A-rate 214 Left axis deviation...QRS axis (-30,-90) Anterior infarct, old...Q >40mS, abnormal ST-T, V2-V5 Physician: no stemi
--- OUTSIDE RECORDS SUMMARY | 2024-06-30 12:23 | XMS_ITS | Continuity of Care Document ---
Author Organization [facility] Address [address] [place] [address] Care Team Providers Care Pairer Name Role Phone CHRISTOPHERJoana WU Bernard Primary Care Physician Encounter [facility] NBR [id number] Date(s): 04/14/24 - 04/14/24 [facility] [address] [place] [address]- [place] Discharge Disposition: Home Allergies, Adverse Reactions, Alerts Substance Criticality Severity Reaction Reaction Severity Status terazosin Unable to assess criticality Unknown Active oxyCODONE Unable to assess criticality Unknown Active Pollen Unable to assess criticality Unknown Active Assessment and Plan Future Appointments Future Scheduled Tests Radiology* CT Chest w/o Contrast 04/20/24 Immunizations Given and Recorded Vaccine Date Status Refusal Reason Novel [id number], all formulation 06/01/19 Recorded SARS-COV-2 (COVID-19) vaccine, unspecifi 06/01/19 Recorded pneumococcal 23-polyvalent vaccine 02/27/18 Record ed Pneumococcal Conjugate, unspecified form 02/27/18 Recorded Pneumococcal Conjugate, unspecified form 10/03/14 Recorded Medications Advair Diskus 100 mcg-50 mcg inhalation powder 0 Refill(s) Start Date: 03/26/24 Status: Ordered Advair HFA 230 mcg-21 mcg/inh inhalation aerosol INHALE TWO PUFFS BY MOUTH TWICE A DAY Start Date: 03/26/24 Status: Ordered Albuterol (Eqv-ProAir HFA) 90 mcg/inh inhalation aerosol INHALE 2 PUFFS BY MOUTH FOUR TIMES A DAY Start Date: 03/26/24 Status: Ordered atorvastatin 80 mg oral tablet 0 Refill(s) Start Date: 03/26/24 Status: Ordered B-12 1000 mcg oral tablet 0 Refill(s) Start Date: 03/26/24 Status: Ordered BuPROPion (Eqv-Wellbutrin SR) 150 mg/12 hours oral tablet, extended release 0 Refill(s) Start Date: 03/26/24 Status: Ordered celecoxib 200 mg oral capsule TAKE ONE CAPSULE BY MOUTH TWICE A DAY Start Date: 03/26/24 Status: Ordered dabigatran 75 mg oral capsule 75 mg 1 cap, Oral, BID, # 60 cap, 0 Refill(s) Start Date: 03/26/24 Status: Ordered doxepin 10 mg oral capsule 0 Refill(s) Start Date: 03/26/24 Status: Ordered fluticasone propionate 0 Refill(s) Start Date: 03/26/24 Status: Ordered furosemide 20 mg oral tablet TAKE ONE TABLET BY MOUTH EVERY DAY Start Date: 03/26/24 Status: Ordered hydrOXYzine hydrochloride 25 mg oral tablet TAKE ONE TO TWO TABLETS BY MOUTH EVERY 6 HOURS NEEDED FOR ANXIETY Start Date: 03/26/24 Status: Ordered METOPROLOL SUCC ER 25 MG TAB METOPROLOL SUCC ER 25 MG TAB, TAKE ONE TABLET BY MOUTH AT BEDTIME Start Date: 03/26/24 Status: Ordered metoprolol succinate 25 mg oral capsule, extended release 0 Refill(s) Start Date: 03/26/24 Status: Ordered multivitamin adult, oral tablet 0 Refill(s) Start Date: 03/26/24 Status: Ordered Nitrostat 0.4 mg sublingual tablet 0 Refill(s) Start Date: 03/26/24 Status: Ordered potassium chloride 0 Refill(s) Start Date: 03/26/24 Status: Ordered Protonix 40 mg oral delayed release tablet 40 mg = 1 tab, Oral, Daily, # 90 tab, 0 Refill(s), Pharmacy: [id number], 180.34, cm, 04/13/2414:01:00 EDT, Height, 79.1, kg, 04/13/24 14:10:00 EDT, Weight Dosing Start Date: 04/13/24 Status: Ordered tamsulosin 0.4 mg oral capsule 0.4 mg = 1 cap, Oral, Daily, # 30 cap, 0 Refill(s) Start Date: 03/26/24 Status: Ordered valsartan 320 mg oral tablet 0 Refill(s) Start Date: 03/26/24 Status: Ordered Vitamin B Complex 100 0 Refill(s) Start Date: 03/26/24 Status: Ordered Vitamin D3 50 mcg (2000 intl units) oral tablet, chewable 50 mcg = 1 tab, Oral, Daily, # 30 EA, 0 Refill(s) Start Date: 03/26/24 Status: Ordered Problem List Condition Confirmation Course Effective Dates Status Health Status Informant Advance directive discussed with patient Confirmed Active Anemia Confirmed Active Arthritis of carpometacarpal (CMC) joint of thumb Confirmed Active Atrial fibrillation Confirmed Active Biceps tendinitis of left upper extremity Confirmed Active Bursitis of shoulder, left Confirmed Active Cardiomyopathy Confirmed Active Carotid artery stenosis Confirmed Active CVA (cerebrovascular accident) Confirmed Active Chronic cough Confirmed Active Chronic kidney disease Confirmed Active Congestive heart failure Confirmed Active Contusion of right leg Confirmed Active CAD (coronary artery disease) Confirmed Active Depression Confirmed Active Dyspnea Confirmed Active Hyperpiesia Confirmed Active Fracture of distal phalanx of left index finger Confirmed Active Hx of sinusitis Confirmed Active History of non-ST elevation myocardial infarction (NSTEMI) Confirmed Active Hyperlipidemia Confirmed Active HTN (hypertension) Confirmed Active Hyponatremia Confirmed Active Interstitial lung disease Confirmed Active Cerebral aneurysm Confirmed Active Laceration of left index finger Confirmed Active Rupture of left quadriceps muscle Confirmed Active Deep vein thrombosis (DVT) prophylaxis declined Confirmed Active Left arm weakness Confirmed Active Osteoarthritis Confirmed Active 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 Confirmed Active Heart palpitations Confirmed Active De Quervain's tenosynovitis Confirmed Active 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 Pes planus Confirmed Active De Quervain's tenosynovitis, right Confirmed Active Bigeminal rhythm Confirmed Active Procedures Procedure Date Related Diagnosis Body Site Status Secondary plastic repair tendon 09/14/22 Completed Total knee replacement 06/11/22 Co mpleted Laparoscopic cholecystectomy 01/2022 Completed Revision of TKR (total knee replacement) using augment 2003 Compl eted Cataract surgery Complete d Insertion of arterial stent Completed Open reduction and internal fixation of fracture Completed Rhinoplasty Completed Total knee arthroplasty C ompleted Social History Social History Type Response Tobacco Former tobacco user Tobacco Use:. 1/2 pack per day per day. 20 year(s). 1 Sex Sex Representation Male (finding) 1Quit 08/18/1991 Patient Care team information Care Team Personnel Name: WU TERRAZAS Position: No Access Member Role: Primary Care Physician Address: [address] [address]- Care Team Related Persons Name: ADRIANNE MOODY Insurance Providers Guarantor name: SAMI MOODY Health Plan Information #: 1 Payer: [place] [employer] Member Number: NA Policy Number: NA
--- OUTSIDE RECORDS SUMMARY | 2024-06-30 12:23 | XMS_ITS ---
Author Organization Unknown ALLERGIES AND ADVERSE REACTIONS No information ASSESSMENT No information CHIEF COMPLAINT No information MEDICATIONS No information OBJECTIVE DATA No information PHYSICAL EXAMINATION No information TREATMENT PLAN Planned Care Start Date Provider Encounter for Check-up [id number] PROBLEMS No information RESULTS No information REVIEW OF SYSTEMS No information SUBJECTIVE DATA No information VITAL SIGNS No information
--- OUTSIDE RECORDS SUMMARY | 2024-06-30 12:23 | XMS_ITS | Continuity of Care Document ---
Author Organization [facility] Address [address] [place] [phone] Care Team Providers Care Jewel Bearing Facer Name Role Phone WU TERRAZAS Primary Care Physician [phone] Encounter [facility] NBR [id number] Date(s): 04/20/24 - 04/20/[address] [address]- [place] Discharge Disposition: Home or Self Care Attending Physician: Alicia Mena MD Admitting Physician: Alicia Mena MD Referring Physician: Alicia Mena MD Allergies, Adverse Reactions, Alerts Substance Criticality Severity Reaction Reaction Severity Status terazosin Unable to assess criticality Unknown Active oxyCODONE Unable to assess criticality Unknown Active Pollen Unable to assess criticality Unknown Active Assessment and Plan Future Appointments Future Scheduled Tests Laboratory* Blood Gas Arterial 04/17/24 Immunizations Given and Recorded Vaccine Date Status Refusal Reason Novel [id number], all formulation 06/01/19 Recorded SARS-COV-2 (COVID-19) vaccine, [...] 0 Refill(s) Start Date: 03/26/24 Status: Ordered Oxygen Oxygen, 2 liters with exertion and while sleeping/napping, Supply, See instructions, # 1 EA, 0 Refill(s) Start Date: 04/16/24 Status: Ordered potassium chloride 0 Refill(s) Start Date: 03/26/24 Status: Ordered Protonix 40 mg oral delayed release tablet 40 mg = 1 tab, Oral, Daily, # 90 tab, 0 Refill(s), Pharmacy: [facility], 180.34, cm, 04/13/2414:01:00 EDT, Height, 79.1, [...] of TKR (total knee replacement) using augment 2004 Compl eted Cataract surgery Complete d Insertion of arterial stent Completed Open reduction and internal fixation of fracture Completed Rhinoplasty Completed Total knee arthroplasty C ompleted Results Radiology Reports * Exam Date Time Procedure Performing Provider Status 04/20/24 10:[address] Chest w/o Contrast Jovan YoungCyndy [facility] (Verified) Notes: (CT Chest w/o Contrast) Reason For Exam: evaluate fibrosis, ?bronchiectasis CT Chest w/o Contrast EXAM DESCRIPTION: CT Chest w/o Contrast 04/20/2024 INDICATION: EVALUATE FIBROSIS, ?BRONCHIECTASIS TECHNIQUE: All CT scans at this facility use at least one of these dose optimization techniques: Automated exposure control; mA and/or kV adjustment per patient size (includes targeted exams where dose is matched to clinical indication); or iterative reconstruction. Technique: Axial CT images of the chest without intravenous contrast administration. High-resolution 1 mm collimation images were obtained in the supine and prone positions. COMPARISON: None FINDINGS: Mediastinal evaluation is limited by lack of IV contrast. No mediastinal mass or adenopathy is identified. No pericardial effusion. Normal caliber thoracic aorta with atherosclerotic calcifications involving the thoracic aorta. Coronary artery calcifications are noted Scattered areas of peripheral interlobular septal thickening consistent with chronic interstitial lung disease/fibrosis with patchy areas of peripheral honeycombing or traction bronchiectasis in the posterior aspect of both lower lobes. No focal consolidation or pulmonary mass. No central endobronchial filling defect identified No pleural effusion or pneumothorax. The spleen is enlarged measuring at least 15.6 cm in maximum dimension, incompletely visualized. Ovoid fluid attenuation lesions consistent with cysts involving the upper pole of both kidneys. Tiny low-attenuation lesion in the mid liver, too small to characterize. Status post cholecystectomy. The remainder of the visualized upper abdomen demonstrates a normal unenhanced CT appearance except for regional vascular calcification No suspicious regional osseous lesions. Mild compression deformity involving the superior endplate of the T12 vertebral body of uncertain age. Spondylotic changes in the visualized spinal axis IMPRESSION: Chronic appearing peripheral interstitial changes bilaterally most pronounced in the lower lobe distribution consistent with chronic interstitial lung disease/fibrosis as detailed above. No focal infiltrate or pulmonary mass. Splenomegaly Additional nonacute findings as detailed above. JOB #: [id number] Final Signed by: Rustam Malave MD Signed (Electronic Signature): 04/20/2024 11:27 am Social History Social History Type Response Tobacco Former tobacco user Tobacco Use:. 1/2 pack per day per day. 20 year(s). 1 Sex Sex Representation Male (finding) 1Quit 08/18/1991 Patient Care team information Care Team Personnel Name: WU TERRAZAS Position: No Access Member Role: Primary Care Physician Address: [id number] [place] [address] Care Team Related Persons Name: ADRIANNE MOODY Insurance Providers Guarantor name: SAMI Lezama [facility] Health Plan Information #: 1 Payer: [employer] Member Number: [id number] Policy Number: NA Health Plan Information #: 2 Payer: [employer] Member Number: [id number] Policy Number: NA Health Plan Information #: 3 Payer: [employer] Member Number: [id number] Policy Number: NA
--- OUTSIDE RECORDS SUMMARY | 2024-06-30 12:23 | XMS_ITS | Continuity of Care Document ---
Author Organization [facility] Address [address] [place] [address] Care Team Providers Care Hot Dog Vendor Name Role Phone WU TERRAZAS Primary Care Physician Encounter [facility] NBR [id number] Date(s): 04/13/24 - 04/13/24 [facility] [address] [place], [place] [address] Encounter Diagnosis ILD (interstitial lung disease)(Discharge Diagnosis) - 04/13/24 Discharge Disposition: Home or Self Care Attending Physician: Alicia Mena MD Referring Physician: WU TERRAZAS Allergies, Adverse Reactions, Alerts Substance Criticality Severity Reaction Reaction Severity Status terazosin Unable to assess criticality Unknown Active oxyCODONE Unable to assess criticality Unknown Active Pollen Unable to assess criticality Unknown Active Assessment and Plan Extracted from: Title:Pulm - Office Visit Note Author:Alicia watts MD Date:04/13/24 Mild ILD/UIP by hx?? Rheumat ologic w/u reportedly negative.?? Suspect due to silent GERD and aspiration.?? H/o pertussis also noted.?? Recommended: ?? -Suspect??needs supplemental??O2 based??on??report??of??home??SpO2??decreasing to??50s%- check 6MWT today, overnight pulse oximetry. -HRCT chest for distribution of fibrosis/honeycombing, possible bronchiectasis. -Restart Protonix 40 mg qd dosed near dinnertime. -Continue inhalers for now- unclear if benefit from Advair. -Get this year's Influenza and newest Covid-19 vaccinations when available. -RTC in 1 mo. ? Future Scheduled Tests Radiology* CT Chest w/o Contrast 04/13/24 Functional Status 04/13/24 Other exposure to Infectious Disease Non e Immunizations Given and Recorded Vaccine Date Status Refusal Reason Novel [id number], all formulation 06/01/19 Recorded SARS-COV-2 (COVID-19) vaccine, [...] # 90 tab, 0 Refill(s), Pharmacy: [facility], 180.34, cm, 04/13/2414:01:00 EDT, Height, 79.1, [...] Rhinoplasty Completed Total knee arthroplasty C ompleted Vital Signs Most recent to oldest [Reference Range]: 1 2 Temperature Temporal Artery [36-38 Deg C ] 36.0 Deg C (04/13/24 2:01 PM) Apical Heart Rate [60-100 bpm] 89 bpm (04/13/24 2:01 PM) Heart Rate Monitored [60-100 bpm] 89 bpm (04/13/24: PM) Blood Pressure [90-140/60-90 mmHg] 120/7 7mmHg (04/13/24 4:22 PM) 132/90mmHg (04/13/24 2:01 PM) Mean Arterial Pressure, Cuff [65-140 mmH g] 104 mmHg (04/13/24 2:01 PM) Weight 79.1 kg (04/13/24 2:01 PM) Weight Measured (lbs) 174.385 lb (04/13/24 2: PM) Weight Dosing 79.100 kg (04/13/24 2:01 PM) Sharon Body Weight Calculated 75.3 kg (04/13/24 2:01 PM) Height 180.34 cm (04/13/24 4:22 PM) 180.34 cm (04/13/24 2:01 PM) Height/Length Measured (inches) 71 inch (04/13/24 2:01 PM) BSA Measured 1.99 m2 (04/13/24 2:01 PM) Body Mass Index 24.32 kg/m2 (04/13/24 2:01 PM) Social History Social History Type Response Tobacco Former tobacco user Tobacco Use:. 1/2 pack per day per day. 20 year(s). 1 Sex Sex Representation Male (finding) 1Quit 08/18/1991 Hospital Discharge Instructions Follow Up Care 03/23/2024 12:31:25 With:Alicia Mena MD Address: [address] [place], [place] [address]- When:Within 1 Month(s) Physician Outpatient Note * Alicia Mena MD: PERFORM Event Display: Office Clinic Note Physician Authored Date: [id number] SAMI MOODY III :1940 Age:83 years Sex:Male Visit Date:04/13/2024 Primary Care Physician: WU TERRAZAS Chief Complaint Referred by PCP/Wu Terrazas MD @ [place], [place] for ILD/UIP. History of Present Illness 83 y/o male, former smoker, ETOH abuse- sober x44 yrs with history including dyspnea,??dxd??w/??mild ILD/UIP on 12/02/2023 CT chest and PFTs TLC 5.17L (71%)??by [facility] Pulmonary/[place],??last seen on 02/09/2024- discussed O2- declined,??refilled??Albuterol HFA prn,??limited rheumatologic workup- negative per pt, to see again in 6 mos; atiral fibrillation- on Lopressor/Pradaxa, CAD- s/p RI/stents x2, HT- on??Valsartans/p CVA in 11/2023, admitted @[facility] xd4d->[facility] x10d, has residual Left weakness, uses walker; CHF- on Lasix, HLD, insomnia- on Doxepin, GERD-takes TUMS prn, was on Protonix previously;??BPH, OA- s/p TKR in 2021, fall w/ ruptured quadriceps muscle, torn ligaments- s/p surgery x2,last in 2022, was using cane; depression/anxiety. ?? Also followed by [facility] Cardiology/Joel Link MD- s/p cardioversion??on 06/03/2023, last seenlast week. ?? 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 ?? Started smoking at age 15, smoked up to <1ppd x30 yrs, quit in 1992 cold turkey, had tried Nicotine patches and hypnosis. ?? Never dxd w/ COPD, asthma, or other intrinsic lung disease previously. ?? Had bronchitis in childhood.?? Pertussis in adulthood. ?? Sxs-??LASSITER- worsening in last 6 mos, especially since CVA in Nov; noted SpO2 decreases to high 50s%, recovers to 90s% w/ rest; no chest tightness or wheezes, am cough productive of clear sputum.?? No nasal congestion but PND and constant??rhinorrhea.?? Aware of heartburn if eats sweets late at night. ?? Triggers- exertion, pollens, some strong orders- cleaning solutions, fertilizers; cold weather, humid >hot weather, stress. Has dog and cat at home ?? Exercise tolerance- about 50 ft, has stair lift at home, has difficulty walking up ramp.?? ADLs- can bathe and dress self, does shopping, cooking cleaning- does go to store, rides in electric cart.?? Uses [employer] tractor. ?? Sleep- has had difficulty falling asleep0 improved on Doxepin, nocturia- 2-3x, uses urinal; can fall back asleep without difficulty, denied heavy snoring or apneas, rested most mornings. ?? Current regimen- Advair HFA 230 2p bid- rinsing, Albuterol HFA prn-??using 0- 1x/d, Flonase- helpful. Does not need refills today. ?? Lives in a 3 story home [place] inside [place], moved here from [place]- had one story home, in 2016- both from [place]; has oil/radiant heat, no AC, has fans, no hooy-zi-axbs carpeting, no heavy drapes. ?? 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 Did some solderingw/ stained glass hobby, did not wear mask.?? No occupational exposures. ?? LDCT screening- not candidate. ?? Vaccinations- had this year's Influenza, pneumonia, Covid-19 x5 total (all), RSV vaccinations. ? Review of Systems Constitutional:?No??fevers,?No??chills,?No??sweats Eye:?Positive for??recent visual problems ENT:?No??ear pain,?Positive for??nasal congestion,?positive for?? post nasal drip,??Positive for??sore throat Respiratory:?Positive for??shortness of breath,?positive for??wheezing,??Positive for??cough,??positive for??sputum,??No??hemoptysis Cardiovascular:?No??Chest pain,?No??palpitations,?No??syncope Gastrointestinal:?No??abdominal pain,?Nonausea,?No??vomiting,?No??diarrhea,??No??hematemesis, hematochezia or melena Genitourinary:?No?dysuria,??No??hematuria Ismael/Lymph:?Positive for??bruising or bleeding??tendency,?No??swollen lymph glands Endocrine:?No??excessive thirst,??No??excessive hunger Musculoskeletal:??No??back pain,??Positive for??neck pain,??No??other joint pain,??No??muscle pain,??Positive for??decreased range of motion Integumentary:?No??rash,?Positive for??pruritus,?No??abrasions??No??tattoos Neurologic:??No??headache,??No??confusion,??No??weakness,??No??burning pain Psychiatric:?Positive for??anxiety,?Positive for??depression Physical Exam Vitals & Measurements T:??36.0?C ??(Temporal Artery)?? HR:??89??(Apical)?? BP:??132/90?? SpO2:??94%?? HT:??180.34??cm?? WT:??79.1??kg?? BMI:??24.32?? BSA:??1.99?? General: Alert, conversant??appropriate,??well nourished,?No??acute distress HEENT: Normocephalic, PERRL, EOMI,?Normal??conjunctiva, ??No??scleral icterus, hearing??normal, tympanic membranes??visible,?No??sinus tenderness, nasal??normal,??moist??oral mucosa, oropharyngeal??no erythema,??no thrush,??no dentures Neck: Supple,??full range of motion,?No??JVD,??No??carotid bruits,??No??lymphadenopathy Lungs:??Effort??normal,??decreased breath sounds- fair to??moderate air entry, few Rt >Lft basilar crackles, no wheezes??or rhonchi?? Respiration:??Non-Labored Heart:?Normal? rate,?Regular??rhythm,?No??murmur,?No??gallop,?Norubs Abdomen: Soft, non-tender, non-distended,?Normal? bowel sounds,?No??masses Musculoskeletal:?Lower extremity edema??No, clubbing??No??Normal? range of motion and strength Skin:??warm,??dry??and??intact??,?No??rashes,?No??lesions,??Nocyanosis, UE ecchymoses, AKs. Neurologic: Awake, alert and oriented X4, CN II-XII intact,??non-focal Psychiatric: Cooperative,??normal mood and affect Clinic Assessment/Plan Mild ILD/UIP by hx?? Rheumatologic w/u reportedly negative.?? Suspect due to silent GERD and aspiration.?? H/o pertussis also noted.?? Recommended: ?? -Suspect??needs supplemental??O2 based??on??report??of??home??SpO2??decreasing to??50s%- check 6MWT today, overnight pulse oximetry. -HRCT chest for distribution of fibrosis/honeycombing, possible bronchiectasis. -Restart Protonix 40 mg qd dosed near dinnertime. -Continue inhalers for now- unclear if benefit from Advair. -Get this year's Influenza and newest Covid-19 vaccinations when available. -RTC in 1 mo. Follow Up Instructions With When Contact Information Alicia Mena MD In 1 month [address] [place] [address]- Additional Instructions: Problem List/Past Medical History Ongoing Advance directive discussed with patient Anemia Arthritis of carpometacarpal (CMC) joint of thumb Atrial fibrillation Biceps tendinitis of left upper extremity Bigeminal rhythm Bursitis of shoulder, left CAD (coronary artery disease) Cardiomyopathy Carotid artery stenosis Cerebral aneurysm Chronic cough Chronic kidney disease Congestive heart failure Contusion of right leg CVA (cerebrovascular accident) De Quervain's tenosynovitis De Quervain's tenosynovitis, right Deep vein thrombosis (DVT) prophylaxis declined 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 Depression Dyspnea Fracture of distal phalanx of left index finger Heart palpitations History of non-ST elevation myocardial infarction (NSTEMI) HTN (hypertension) Hx of sinusitis Hyperlipidemia Hyperpiesia Hyponatremia Interstitial lung disease Laceration of left index finger Left arm weakness Left rotator cuff tear arthropathy Osteoarthritis Pes planus Rupture of left quadriceps muscle Historical No qualifying data Procedure/Surgical History ???Secondary plastic repair tendon (09/15/2022)???Total knee replacement (06/12/2022)???Laparoscopic cholecystectomy (01/2022)???Revision of TKR (total knee replacement) using augment (2003)???Cataract surgery???Insertion of arterial stent???Open reduction and internal fixation of fracture???Rhinopl asty???Total knee arthroplasty Medications What How Much When Instructions New pantoprazole (Protonix 40 mg oral delayed release tablet) 1 tab Oral (given by mouth) Every day Pickup at [facility] Unchanged albuterol (Albuterol (Eqv-ProAir HFA) 90 mcg/ inh inhalation aerosol) INHALE 2 PUFFS BY MOUTH FOUR TIMES A DAY ?? Unchanged atorvastatin (atorvastatin 80 mg oral tablet) Unchanged buPROPion (BuPROPion (Eqv-Wellbutrin SR) 150 mg/ 12 hours oral tablet, extended release) Unchanged celecoxib (celecoxib 200 mg oral capsule) TAKE ONE CAPSULE BY MOUTH TWICE A DAY ?? Unchanged cholecalciferol (Vitamin D3 50 mcg (2000 intl units) oral tablet, chewable) 1 tab Oral (given by mouth) Every day Unchanged cyanocobalamin (B-12 1000 mcg oral tablet) Unchanged dabigatran (dabigatran 75 mg oral capsule) 1 Capsules Oral (given by mouth) 2 times a day Unchanged doxepin (doxepin 10 mg oral capsule) Unchanged fluticasone (fluticasone propionate) Unchanged fluticasone-salmeterol (Advair Diskus 100 mcg-50 mcg inhalation powder) Unchanged fluticasone-salmeterol (Advair HFA 230 mcg-21 mcg/ inh inhalation aerosol) INHALE TWO PUFFS BY MOUTH TWICE A DAY ?? Unchanged furosemide (furosemide 20 mg oral tablet) TAKE ONE TABLET BY MOUTH EVERY DAY ?? Unchanged hydrOXYzine (hydrOXYzine hydrochloride 25 mg oral tablet) TAKE ONE TO TWO TABLETS BY MOUTH EVERY 6 HOURS NEEDED FOR ANXIETY ?? Unchanged metoprolol (metoprolol succinate 25 mg oral capsule, extended release) Unchanged multivitamin (multivitamin adult, oral tablet) Unchanged multivitamin (Vitamin B Complex 100) Unchanged nitroglycerin (Nitrostat 0.4 mg sublingual tablet) Unchanged Other Prescription (METOPROLOL SUCC ER 25 MG TAB) TAKE ONE TABLET BY MOUTH AT BEDTIME ?? Unchanged potassium chloride Unchanged tamsulosin (tamsulosin 0.4 mg oral capsule) 1 Capsules Oral (given by mouth) Every day Unchanged valsartan (valsartan 320 mg oral tablet) Pharmacy Information [facility]: [address], [place] [phone] Allergies Pollen oxyCODONE terazosin Social History Alcohol Past Electronic Cigarette/Vaping Electronic Cigarette Use: Never. Tobacco Former tobacco user Tobacco Use:. 1/2 pack per day per day. 20 year(s).- Comments: Quit 08/18/1991 Immunizations Vaccine Date Status Novel [id number], all formulation 06/01/2019 Recorded SARS-COV-2 (COVID-19) vaccine, unspecifi 06/01/2019 Recorded pneumococcal 23-polyvalent vaccine 02/27/2018 Recorded Pneumococcal Conjugate, unspecified form 02/27/2018 Recorded Pneumococcal Conjugate, unspecified form 10/03/2014 Recorded Electronically Signed on 04/13/2024 15:34 EDT Alicia Mena MD Patient Care team information Care Team Personnel Name: WU TERRAZAS Position: No Access Member Role: Primary Care Physician Address: [place] [address]- Care Team Related Persons Name: ADRIANNE MOODY Insurance Providers Guarantor name: SAMI MOODY [facility] Information #: 1 Payer: [facility] Member Number: [id number] Policy Number: NA Health Plan Information #: 2 Payer: [facility] Member Number: [id number] Policy Number: NA
--- OUTSIDE RECORDS SUMMARY | 2024-06-30 12:23 | XMS_ITS | Continuity of Care Document ---
Author Organization [facility] Address [address] [place] [address] Care Team Providers Care Research Assoc Name Role Phone CHRISTOPHERJoana WU Bernard Primary Care Physician Encounter [facility] NBR [id number] Date(s): 05/10/24 - 05/10/24 [facility] [address] [place] [address]- Encounter Diagnosis ILD (interstitial lung disease)(Discharge Diagnosis) - 05/10/24 Discharge Disposition: Home or Self Care Attending Physician: Alicia Mena MD Allergies, Adverse Reactions, Alerts Substance Criticality Severity Reaction Reaction Severity Status terazosin Unable to assess criticality Unknown Active oxyCODONE Unable to assess criticality Unknown Active Pollen Unable to assess criticality Unknown Active Assessment and Plan Future Appointments Future Scheduled Tests Laboratory* Blood Gas Arterial 04/17/24 Functional Status 05/10/24 Other exposure to Infectious Disease Non e Immunizations Given and Recorded Vaccine Date Status Refusal Reason Novel [id number], all formulation 06/01/19 Recorded SARS-COV-2 (COVID-19) vaccine, [...] Status: Ordered dabigatran 75 mg oral capsule 150 mg 2 cap, Oral, BID, # 60 cap, 0 Refill(s) Start Date: 03/26/24 Status: Ordered doxepin 10 mg oral capsule 0 Refill(s) Start Date: 03/26/24 Status: Ordered famotidine 10 mg oral tablet 0 Refill(s) Start Date: 05/10/24 Status: Ordered Flonase Allergy Relief 50 mcg/inh nasal spray 2 sprays, Nostril-Both, Daily, shake well before using, # 15.8 mL, 5 Refill(s), Pharmacy: [facility], 180.34, cm, 05/10/24 11:09:00 EDT, Height, 85.73, kg, 05/10/24 11:19:00 EDT, Weight Dosing Start Date: 05/10/24 Status: Ordered fluticasone propionate 0 Refill(s) Start [...] 40 mg = 1 tab, Oral, Daily, Take near dinnertime, # 30 tab, 4 Refill(s), [facility]acy: [facility], 180.34, cm, 05/10/24 11:09:00 EDT, Height, 85.73, kg, 05/10/24 11:19:00 EDT, Weight Dosing Start Date: 05/10/24 Status: Ordered Protonix 40 mg oral delayed release tablet 40 mg = 1 tab, Oral, Daily, # 90 tab, 0 Refill(s), [facility]acy: [facility], 180.34, cm, 04/13/2414:01:00 EDT, Height, 79.1, [...] Most recent to oldest [Reference Range]: 1 Temperature Temporal Artery [36-38 Deg C ] 35.9 Deg C *LOW* (05/10/24 11:09 AM) Apical Heart Rate [60-100 bpm] 90 bpm (05/10/24 11:09 AM) Blood Pressure [90-140/60-90 mmHg] 136/7 8mmHg (05/10/24 11:09 AM) Mean Arterial Pressure, Cuff [65-140 mmH g] 97 mmHg (05/10/24 11:09 AM) Weight 85.73 kg (05/10/24 11:09 AM) Weight Measured (lbs) 189.002 lb (05/10/24 11:09 AM) Weight Dosing 85.730 kg (05/10/24 11:09 AM) Norris Body Weight Calculated 75.3 kg (05/10/24 11:09 AM) Height 180.34 cm (05/10/24 11:09 AM) Height/Length Measured (inches) 71 inch (05/10/24 11:09 AM) BSA Measured 2.07 m2 (05/10/24 11:09 AM) Body Mass Index 26.36 kg/m2 (05/10/24 11:09 AM) Social History Social History Type Response Tobacco Former tobacco user Tobacco Use:. 1/2 pack per day per day. 20 year(s). 1 Sex Sex Representation Male (finding) 1Quit 08/18/1991 Hospital Discharge Instructions Follow Up Care 04/14/2024 11:12:04 With:Alicia Mena MD Address: [address] [place] [phone]- When:Within 3 Month(s) With:Alicia Mena MD Address: [address] [place] [phone]- When:Within 3 Month(s) Patient Care team information Care Team Personnel Name: WU TERRAZAS Position: No Access Member Role: Primary Care Physician Address: [address] Care Team Related Persons Name: ADRIANNE MOODY Insurance Providers Guarantor name: SAMI MOODY Health Plan Information #: 1 Payer: [place] [employer] Member Number: [id number] Policy Number: NA Health Plan Information #: 2 Payer: [place] [employer] Member Number: [id number] Policy Number: NA Health Plan Information #: 3 Payer: [place] [employer] Member Number: [id number] Policy Number: NA
--- OUTSIDE RECORDS SUMMARY | 2024-06-30 12:24 | XMS_ITS ---
Author Organization Unknown Address [address] [place] [phone] Phone Care Team Providers Care Advertising Specialist Name Role Phone CRAIG Randle Attending Unavailable [...] Code Syst em Smoking History Former smoker 08/18/19953618 9959142 SNOMED CT Sex Male Medications Medication Start Date End Date Route Frequency Dose Code Code System Medication Instructions Home Meds Androderm 4MG/24HR Transdermal Patch, Extended Release 09/25/2021 Unknown TRANSDERMAL BEDTIME 1 TRANSDERMAL PATCH 7228943 RxNorm APPLY 1 TRANSDERMAL PATCH TRANSDERMAL BEDTIME Aspir 81 81MG Oral Tablet, Enteric Coated 09/25/2021 Unknown ORAL DAILY 81 MILLIGRAMS RxNorm TAKE 81 MILLIGRAMS ORAL DAILY Atorvastatin Calcium 80MG Oral Tablet 09/25/2021 Unknown ORAL BEDTIME 80 MILLIGRAMS 133831 RxNorm TAKE 80 MILLIGRAMS ORAL BEDTIME Calcium 600 MG Oral Tablet 09/25/2021 Unknown ORAL DAILY 600 MG 885300 RxNorm TAKE 600 MG ORAL DAILY Temazepam 15MG Oral Capsule 09/25/2021 Unknown ORAL BEDTIME 15 MILLIGRAMS 650232 RxNorm TAKE 15 MILLIGRAMS ORAL BEDTIME Valsartan 160MG Oral Tablet 09/25/2021 09/25/19 22 ORAL DAILY 160 MILLIGRAMS 288242 RxNorm TAKE 160 MILLIGRAMS ORAL DAILY Vitamin D 1000IU Oral Tablet 09/25/2021 Unknown ORAL DAILY 1000 INTERNATIONA L UNITS 460002 RxNorm TAKE 1000 INTERNATIONA L UNITS ORAL DAILY buPROPion Hydrochlorid e SR 150MG Oral Tablet, Extended Release, 12 HR 09/25/2021 Unknown ORAL TWICE A DAY 150 MILLIGRAMS 6202976 RxNorm TAKE 150 MILLIGRAMS ORAL TWICE A DAY Valsartan 160MG Oral Tablet 09/25/2021 09/26/19 22 ORAL DAILY 160 MILLIGRAMS 370662 RxNorm TAKE 160 MILLIGRAMS ORAL DAILY Valsartan 160MG Oral Tablet 09/26/2021 Unknown ORAL DAILY 160 MILLIGRAMS 255751 RxNorm TAKE 1 TABLET BY MOUTH DAILY [...] arthrodesi s, deltoid ligament reconstruc tion 09/17 [id number] 9 01/15/2026 Arthre x(R) AR-1319 FT Bone matrix implant, synthetic, non-antimi crobial 0110 8594 7700 2140 1121 1220 1723 0430 1017 2247 8 Active FDA left foot triple arthrodesi s, poss deltoid ligament reconsttru ction 09/17 [id number] 08/06/2021 12/15/2022 AUGMEN T(R) Inject able [id number] +[id number] 1501 51/$ $526 2702 0524 9120 3F Active FDA left foot triple arthrodesi s, possible deltoid ligament reconstruc tion 09/17 [id number] 05/14/2026 Cancel lous Chips 4-9.5m m 15 cc Allergies and Adverse Reactions Allergy Substance Reaction Severity Start Date Concern Status Co de Code System OXYCODONE NAUSEA (SNOMED-CT: 638499039), Nausea (SNOMED-CT: 142754065) Mild Active 7804 RxNorm Plan of Treatment PRE-OP COVID-19 TESTING 09/14/2021 MRI LOWER EXT W/O CONTRAST 07/17/2021 Encounters Encounter Diagnosis Start Date Code Code Sys tem 09/17/2021 [id number] SNOMED-CT Personal Care Team Section Performer Name Performer Role Active Date Inactive Da te
--- OUTSIDE RECORDS SUMMARY | 2024-06-30 12:24 | XMS_ITS ---
Author Organization Unknown Address [address] [place] [phone] Phone Care Team Providers Care Paint Grinder Name Role Phone CRAIG Randle Attending Unavailable [...] Code Syst em Smoking History Former smoker 08/18/19957473 8566414 SNOMED CT Sex Male Medications Medication Start Date End Date Route Frequency Dose Code Code System Medication Instructions Home Meds Androderm 4MG/24HR Transdermal Patch, Extended Release 09/25/2021 Unknown TRANSDERMAL BEDTIME 1 TRANSDERMAL PATCH 7980564 RxNorm APPLY 1 TRANSDERMAL PATCH TRANSDERMAL BEDTIME Aspir 81 81MG Oral Tablet, Enteric Coated 09/25/2021 Unknown ORAL DAILY 81 MILLIGRAMS RxNorm TAKE 81 MILLIGRAMS ORAL DAILY Atorvastatin Calcium 80MG Oral Tablet 09/25/2021 Unknown ORAL BEDTIME 80 MILLIGRAMS 644080 RxNorm TAKE 80 MILLIGRAMS ORAL BEDTIME Calcium 600 MG Oral Tablet 09/25/2021 Unknown ORAL DAILY 600 MG 044335 RxNorm TAKE 600 MG ORAL DAILY Temazepam 15MG Oral Capsule 09/25/2021 Unknown ORAL BEDTIME 15 MILLIGRAMS 124646 RxNorm TAKE 15 MILLIGRAMS ORAL BEDTIME Valsartan 160MG Oral Tablet 09/25/2021 09/25/19 22 ORAL DAILY 160 MILLIGRAMS 922300 RxNorm TAKE 160 MILLIGRAMS ORAL DAILY Vitamin D 1000IU Oral Tablet 09/25/2021 Unknown ORAL DAILY 1000 INTERNATIONA L UNITS 809181 RxNorm TAKE 1000 INTERNATIONA L UNITS ORAL DAILY buPROPion Hydrochlorid e SR 150MG Oral Tablet, Extended Release, 12 HR 09/25/2021 Unknown ORAL TWICE A DAY 150 MILLIGRAMS 0107643 RxNorm TAKE 150 MILLIGRAMS ORAL TWICE A DAY Valsartan 160MG Oral Tablet 09/25/2021 09/26/19 22 ORAL DAILY 160 MILLIGRAMS 139180 RxNorm TAKE 160 MILLIGRAMS ORAL DAILY Valsartan 160MG Oral Tablet 09/26/2021 Unknown ORAL DAILY 160 MILLIGRAMS 728995 RxNorm TAKE 1 TABLET BY MOUTH DAILY [...] arthrodesi s, deltoid ligament reconstruc tion 09/17 8643954 9 01/15/2026 Arthre x(R) AR-1319 FT Bone matrix implant, synthetic, non-antimi crobial 0110 8594 7700 2140 1121 1220 1723 0430 1017 2247 8 Active FDA left foot triple arthrodesi s, poss deltoid ligament reconsttru ction 09/17 9580445 08/06/2021 12/15/2022 AUGMEN T(R) Inject able [id number] 10 +M53 6276 1501 51/$ $526 2702 0524 9120 3F Active FDA left foot triple arthrodesi s, possible deltoid ligament reconstruc tion 09/17 [id number] 05/14/2026 Cancel lous Chips 4-9.5m m 15 cc Allergies and Adverse Reactions Allergy Substance Reaction Severity Start Date Concern Status Co de Code System OXYCODONE NAUSEA (SNOMED-CT: 581418218), Nausea (SNOMED-CT: 707766223) Mild Active 7804 RxNorm Plan of Treatment PRE-OP COVID-19 TESTING 09/14/2021 MRI LOWER EXT W/O CONTRAST 07/17/2021 Encounters Encounter Diagnosis Start Date Code Code Sys tem 07/24/2021 [id number] SNOMED-CT Personal Care Team Section Performer Name Performer Role Active Date Inactive Da te
--- OUTSIDE RECORDS SUMMARY | 2024-06-30 12:24 | XMS_ITS ---
Author Organization Unknown Address [address] [place] [address] [phone] Phone Care Team Providers Care Hogshead Wrecker Name Role Phone CRAIG Randle Attending Unavailable [...] Date/Time: 09/24/2021 09:17 [facility] ID: [id number] [address] [place] [address], [address] LOINC: 17472-3 Test Value Unit Reference Range Code Code [...] H=34 2028-9 LOINC ANION GAP 6.1 mmol/L 56945-2 LOINC CALCIUM SERUM 8.5 mg/dL L=8.2 H=10.2 37924-6 LOINC AGE 80 years eGFR (non-Afr.Amer.) 45 mL/min 61822-8 LOINC eGFR (Afr-Ugandan) 54 mL/min 63955-4 [facility] BASIC METABOLIC PANEL (BMP) - Collect Date/Time: 09/23/2021 06:05 [facility] ID: [id number] [address] [place], [place], [address] LOINC: 84724-6 Test Value Unit Reference Range Code Code [...] H=34 2028-9 LOINC ANION GAP 7.5 mmol/L 35902-6 LOINC CALCIUM SERUM 8.4 mg/dL L=8.2 H=10.2 82019-9 LOINC AGE 80 years eGFR (non-Afr.Amer.) 45 mL/min 55177-4 LOINC eGFR (Afr-Ugandan) 55 mL/min 88370-7 [facility] BASIC METABOLIC PANEL (BMP) - Collect Date/Time: 09/22/2021 06:15 [facility] ID: [id number] [address] [place], [place], [address] LOINC: 41906-3 Test Value Unit Reference Range Code Code [...] H=34 2028-9 LOINC ANION GAP 10.9 mmol/L 55537-3 LOINC CALCIUM SERUM 8.2 mg/dL L=8.2 H=10.2 89248-6 LOINC AGE 80 years eGFR (non-Afr.Amer.) 38 mL/min 00600-4 LOINC eGFR (Afr-Ugandan) 46 mL/min 34153-7 [facility] Social History Type Status Start Date End Date Code Code Syst em Smoking History Former smoker 08/18/19957631 2008800 SNOMED CT Sex Male Vital Signs Vital Sign Value Unit [place] Value [place] Unit Date/Time Recent/Initial? Code Code System Body Mass Index 28.98 kg/m2 09/24/2021 12:12 Initial 84053 -5 [facility] Systolic Blood Pressure 139 mm[Hg] 09/25/2021 07:30 Most Recent 8480- 6 [facility] Diastolic Blood Pressure 80 mm[Hg] 09/25/2021 07:30 Most Recent 8462- 4 [facility] Systolic Blood Pressure 127 mm[Hg] 09/21/2021 19:58 Initial 8480- 6 [facility] Diastolic Blood Pressure 76 mm[Hg] 09/21/2021 19:58 Initial 8462- 4 [facility] Body Surface Area 2.22 m2 09/24/2021 12:12 Initial 3140- 1 INC Height 182.880 0 cm 72.00 in 09/24/2021 12:12 Initial 8302- 2 INC O2 Saturation 95 % 2021 07:30 Most Recent 28832 -5 [facility] O2 Saturation 92 % 2021 19:58 Initial 93903 -5 [facility] Fraction of Inspired Oxygen 21 % 09/21/2021 19:58 Initial 3150- 0 LOINC Pulse 65.0 /min 09/25/2021 07:30 Most Recent 8867- 4 [facility] Pulse 77.0 /min 09/21/2021 19:58 Initial 8867- 4 LOINC Respiration 16 /min 02/08/20 22 07:30 Most Recent 9279- 1 LOINC Respiration 18 /min 09/21/19 19:58 Initial 9279- 1 LOINC Temperature 36.4 Kalani 97.5 F 09/25/19 22 07:30 Most Recent 8310- 5 LOINC Temperature 36.7 Kalani 98.1 F 09/21/19 19:58 Initial 8310- 5 LOINC Weight 96.91 kg 213.65 lbs 09/24/2021 12:12 Initial 76774 -7 [facility] Medications Medication Start Date End Date Route Frequency Dose Code Code System Medication Instructions Home Meds Androderm 4MG/24HR Transdermal Patch, Extended Release 09/25/2021 Unknown TRANSDERMAL BEDTIME 1 TRANSDERMAL PATCH 0453067 RxNorm APPLY 1 TRANSDERMAL PATCH TRANSDERMAL BEDTIME Aspir 81 81MG Oral Tablet, Enteric Coated 09/25/2021 Unknown ORAL DAILY 81 MILLIGRAMS RxNorm TAKE 81 MILLIGRAMS ORAL DAILY Atorvastatin Calcium 80MG Oral Tablet 09/25/2021 Unknown ORAL BEDTIME 80 MILLIGRAMS 101852 RxNorm TAKE 80 MILLIGRAMS ORAL BEDTIME Calcium 600 MG Oral Tablet 09/25/2021 Unknown ORAL DAILY 600 MG 127322 RxNorm TAKE 600 MG ORAL DAILY Temazepam 15MG Oral Capsule 09/25/2021 Unknown ORAL BEDTIME 15 MILLIGRAMS 308521 RxNorm TAKE 15 MILLIGRAMS ORAL BEDTIME Valsartan 160MG Oral Tablet 09/25/2021 09/25/19 22 ORAL DAILY 160 MILLIGRAMS 425497 RxNorm TAKE 160 MILLIGRAMS ORAL DAILY Vitamin D 1000IU Oral Tablet 09/25/2021 Unknown ORAL DAILY 1000 INTERNATIONA L UNITS 19930117 RxNorm TAKE 1000 INTERNATIONA L UNITS ORAL DAILY buPROPion Hydrochlorid e SR 150MG Oral Tablet, Extended Release, 12 HR 09/25/2021 Unknown ORAL TWICE A DAY 150 MILLIGRAMS 9922431 RxNorm TAKE 150 MILLIGRAMS ORAL TWICE A DAY Valsartan 160MG Oral Tablet 09/25/2021 09/26/19 22 ORAL DAILY 160 MILLIGRAMS 124217 RxNorm TAKE 160 MILLIGRAMS ORAL DAILY Valsartan 160MG Oral Tablet 09/26/2021 Unknown ORAL DAILY 160 MILLIGRAMS 379984 RxNorm TAKE 1 TABLET BY MOUTH DAILY [...] arthrodesi s, deltoid ligament reconstruc tion 09/17 [id number] 9 01/15/2026 Arthre x(R) AR-1319 FT Bone matrix implant, synthetic, non-antimi crobial 0110 8594 7700 2140 1121 1220 1723 0430 1017 2247 8 Active FDA left foot triple arthrodesi s, poss deltoid ligament reconsttru ction 09/17 5074417 08/06/2021 12/15/2022 AUGMEN T(R) Inject able [id number] 10 +M53 6276 1501 51/$ $526 2702 0524 9120 3F Active FDA left foot triple arthrodesi s, possible deltoid ligament reconstruc tion 09/17 2740441 203F 05/14/2026 Cancel lous Chips 4-9.5m m 15 cc Allergies and Adverse Reactions Allergy Substance Reaction Severity Start Date Concern Status Co de Code System OXYCODONE NAUSEA (SNOMED-CT: 222850919), Nausea (SNOMED-CT: 770779919) Mild Active 7804 RxNorm Plan of Treatment [...]
--- OUTSIDE RECORDS SUMMARY | 2024-06-30 12:25 | XMS_ITS ---
Author Organization Unknown Address [address] [place] [address] [phone] Phone Care Team Providers Care Exercise Rider Name Role Phone Unavailable Xwatchlist Unavailable CRAIG Randle Attending Unavailable RADHA Haynes DEVELOPMENT REP Unavailable SEVEN Rosa Physician Furniture Fabricator Unavailable ADOLFO Randle Primary Unavailable Immunization Immunization Date Status Additional Notes Code Code System COVID-19, mRNA, LNP-S, PF, 1 00 mcg/0.5mL dose or 50 mcg/0.25mL dose 09/19/2020 Completed 207 CVX COVID-19, mRNA, LNP-S, PF, 1 00 mcg/0.5mL dose or 50 mcg/0.25mL dose 10/17/2020 Completed 207 CVX Results BASIC METABOLIC PANEL (BMP) - Collect Date/Time: 09/21/2021 06:30 [facility] ID: [id number] [address] [place] [address], [address] LOINC: 23750-6 Test Value Unit Reference Range Code Code System Flag GLUCOSE 111 mg/dL L=70 H=116 2345-7 LOINC BUN 25 mg/dL L=6 H=25 3094-0 LOINC CREATININE 1.76 mg/dL L=0.67 H=1.17 2160-0 LOINC H SODIUM SERUM 128 mmol/L L=136 H=145 2951-2 LOINC L POTASSIUM SERUM 3.6 mmol/L L=3.4 H=5.2 2823-3 LOINC CHLORIDE SERUM 89 mmol/L L=96 H=110 2075-0 LOINC LL CARBON DIOXIDE (CO2) 30 mmol/L L=22 H=34 2028-9 LOINC ANION GAP 8.8 mmol/L 33472-3 LOINC CALCIUM SERUM 8.6 mg/dL L=8.2 H=10.2 45796-0 LOINC AGE 80 years eGFR (non-Afr.Amer.) 37 mL/min 15128-0 LOINC eGFR (Afr-Botswanan) 45 mL/min 77111-1 LOINC BNP (PRO-B NATRIURETIC PEPTI DE) - Collect Date/Time: 09/19/2021 13:43 [facility] ID: [id number] [address] [place], [place], [address] LOINC: 74697-6 Test Value Unit Reference Range Code Code System Flag NT-proBNP 1757.0 pg/mL L=0.0 H=450 86741-9 LOINC H BASIC METABOLIC PANEL (BMP) - Collect Date/Time: 09/19/2021 13:43 [facility] ID: [id number] [address] [place] [address], [address] LOINC: 10479-4 Test Value Unit Reference Range Code Code System Flag GLUCOSE 129 mg/dL L=70 H=116 2345-7 LOINC H BUN 18 mg/dL L=6 H=25 3094-0 LOINC CREATININE 1.32 mg/dL L=0.67 H=1.17 2160-0 LOINC H SODIUM SERUM 128 mmol/L L=136 H=145 2951-2 LOINC L POTASSIUM SERUM 3.8 mmol/L L=3.4 H=5.2 2823-3 LOINC CHLORIDE SERUM 94 mmol/L L=96 H=110 2075-0 LOINC L CARBON DIOXIDE (CO2) 27 mmol/L L=22 H=34 2028-9 LOINC ANION GAP 6.8 mmol/L 60518-5 LOINC CALCIUM SERUM 8.3 mg/dL L=8.2 H=10.2 79324-4 LOINC AGE 80 years eGFR (non-Afr.Amer.) 52 mL/min 54133-4 LOINC eGFR (Afr-Botswanan) 63 mL/min 95503-3 LOINC CBC W/ DIFFERENTIAL* - Colle ct Date/Time: 09/19/2021 13:43 [facility] ID: [id number] [address] [place] [address], [address] LOINC: 25383-6 Test Value Unit Reference Range Code Code System Flag WBC 10.69 th/cmm L=5.00 H=10.00 6690-2 LOINC H NEUT % 79.4 % L=40.0 H=80.0 LYMPH % 10.9 % L=10.0 H=50.0 MONO % 8.0 % L=2.0 H=12.0 35487-5 LOINC EOS % 0.5 % L=0.0 H=8.0 BASO % 0.5 % L=0.0 H=3.0 IG % 0.7 % L=0.0 H=1.1 2514-8 LOINC NRBC % 0.0 % L=0.0 H=0.0 41809-0 LOINC NEUT abs count 8.5 th/cmm L=1.6 H=8.4 751-8 LOINC H LYMPH abs count 1.2 th/cmm L=1.5 H=4.0 731-0 LOINC L MONO abs count 0.9 th/cmm L=0.2 H=1.0 742-7 LOINC EOS abs count 0.1 th/cmm L=0.0 H=0.5 711-2 LOINC BASO abs count 0.1 th/cmm L=0.0 H=0.2 704-7 LOINC IG abs count 0.1 th/cmm L=0.0 H=0.1 64124-1 LOINC NRBC abs count 0.0 mil/cmm L=0.0 H=0.0 95811-2 LOINC RBC 3.46 mil/cmm L=4.30 H=6.20 789-8 LOINC L HEMOGLOBIN 10.2 gm/dL L=13.0 H=17.0 718-7 LOINC L HEMATOCRIT 31 % L=45 H=52 4544-3 LOINC L MCV 89 fL L=82 H=92 787-2 LOINC MCH 29.5 pg L=27.0 H=31.0 785-6 LOINC MCHC 33.0 % L=32.0 H=36.0 786-4 [facility] RDW-SD 44.2 fL L=39.0 H=49.0 788-0 LOINC PLATELET COUNT 151 th/cmm L=150 H=450 777-3 LOINC BASIC METABOLIC PANEL (BMP) - Collect Date/Time: 09/17/2021 09:45 [facility] ID: [id number] [address] [place] [address], [address] LOINC: 98131-8 Test Value Unit Reference Range Code Code System Flag GLUCOSE 86 mg/dL L=70 H=116 2345-7 LOINC BUN 25 mg/dL L=6 H=25 3094-0 LOINC CREATININE 1.77 mg/dL L=0.67 H=1.17 2160-0 LOINC H SODIUM SERUM 135 mmol/L L=136 H=145 2951-2 LOINC L POTASSIUM SERUM 4.0 mmol/L L=3.4 H=5.2 2823-3 LOINC CHLORIDE SERUM 98 mmol/L L=96 H=110 2075-0 LOINC CARBON DIOXIDE (CO2) 27 mmol/L L=22 H=34 2028-9 LOINC ANION GAP 10.4 mmol/L 18335-3 LOINC CALCIUM SERUM 8.9 mg/dL L=8.2 H=10.2 07105-6 LOINC AGE 80 years eGFR (non-Afr.Amer.) 37 mL/min 73750-1 [facility] eGFR (Afr-Botswanan) 45 mL/min 64822-3 [facility] CBC W/ DIFFERENTIAL* - Colle ct Date/Time: 09/17/2021 09:45 [facility] ID: [id number] [address] [place] [address], [address] LOINC: 29820-3 Test Value Unit Reference Range Code Code System Flag WBC 13.49 th/cmm L=5.00 H=10.00 6690-2 LOINC H NEUT % 77.9 % L=40.0 H=80.0 LYMPH % 14.7 % L=10.0 H=50.0 MONO % 5.3 % L=2.0 H=12.0 16472-8 LOINC EOS % 0.7 % L=0.0 H=8.0 BASO % 0.7 % L=0.0 H=3.0 IG % 0.7 % L=0.0 H=1.1 2514-8 LOINC NRBC % 0.0 % L=0.0 H=0.0 61508-6 LOINC NEUT abs count 10.5 th/cmm L=1.6 H=8.4 751-8 LOINC H LYMPH abs count 2.0 th/cmm L=1.5 H=4.0 731-0 LOINC MONO abs count 0.7 th/cmm L=0.2 H=1.0 742-7 LOINC EOS abs count 0.1 th/cmm L=0.0 H=0.5 711-2 LOINC BASO abs count 0.1 th/cmm L=0.0 H=0.2 704-7 LOINC IG abs count 0.1 th/cmm L=0.0 H=0.1 08232-3 LOINC NRBC abs count 0.0 mil/cmm L=0.0 H=0.0 62054-5 LOINC RBC 4.63 mil/cmm L=4.30 H=6.20 789-8 LOINC HEMOGLOBIN 13.5 gm/dL L=13.0 H=17.0 718-7 LOINC HEMATOCRIT 42 % L=45 H=52 4544-3 LOINC L MCV 90 fL L=82 H=92 787-2 LOINC MCH 29.2 pg L=27.0 H=31.0 785-6 LOINC MCHC 32.4 % L=32.0 H=36.0 786-4 LOINC RDW-SD 45.2 fL L=39.0 H=49.0 788-0 LOINC PLATELET COUNT 198 th/cmm L=150 H=450 777-3 LOINC XR C-ARM FOOT 2V LT NO CHARG E - Completed: 09/17/2021 09:58 LOINC: LEFT FOOT IN THE OR: Fluoroscopy was utilized by Dr. Sepulveda in the Operating Room. Please refer to the Procedure Report for complete details. Fluoro dose is 1.71 mGy Dictated by: ELI CHOW MD Transcribed by: SAV 09/19/2111:01 D Sunday, September 19, 2021 10:05:12 AM [id number] Electronically Reviewed and Signed By: CALVIN CHOW MD 09/20/21 12:46 Copy for: 185 HEALTH INFORMATION MGMT XR CHEST 2V PA AND LATERAL - Completed: 09/19/2021 15:01 LOINC: CHEST, PA AND LATERAL:No mariza ors for comparison. Heart size is within normal limits. There is atherosclerosis and tortuosity of the thoracic aorta. No effusion or pneumothorax is identified. Degenerative changes are seen in the spine. There are increased lung markings in the right upper lobe above the right minor fissure. No focal consolidating infiltrate or effusion is seen. IMPRESSION:Small opacity just above the right minor fissure. This may represent atelectasis or pneumonia. Please correlate clinically. A followup chest x-ray may be obtained to document resolution. Dictated by: ELI CHOW MD Transcribed by: SAV 09/19/2116:01 D Sunday, September 19, 2021 3:06:43 PM [id number] Electronically Reviewed and Signed By: CALVIN CHOW MD 09/20/21 12:46 Copy for: 185 HEALTH INFORMATION MGMT Social History Type Status Start Date End Date Code Code Syst em Smoking History Former smoker 08/18/19954809 [address] Sex Male Vital Signs Vital Sign Value Unit [place] Value [place] Unit Date/Time Recent/Initial? Code Code System Body Mass Index 28.98 kg/m2 09/20/2021 13:21 Most Recent 60567 -5 LOINC Body Mass Index 28.98 kg/m2 09/05/2021 07:51 Initial 94349 -5 LOINC Systolic Blood Pressure 120 mm[Hg] 09/21/2021 06:05 Most Recent 8480- 6 LOINC Diastolic Blood Pressure 76 mm[Hg] 09/21/2021 06:05 Most Recent 8462- 4 LOINC Systolic Blood Pressure 149 mm[Hg] 09/17/2021 16:45 Initial 8480- 6 LOINC Diastolic Blood Pressure 84 mm[Hg] 09/17/2021 16:45 Initial 8462- 4 LOINC Body Surface Area 2.22 m2 09/20/2021 13:21 Most Recent 3140- 1 LOINC Body Surface Area 2.22 m2 09/05/2021 07:51 Initial 3140- 1 LOINC Height 182.880 0 cm 72.00 in 09/20/2021 13:21 Most Recent 8302- 2 LOINC Height 182.880 0 cm 72.00 in 09/05/2021 07:51 Initial 8302- 2 LOINC O2 Saturation 91 % 2021 06:05 Most Recent 67773 -5 LOINC O2 Saturation 95 % 2021 16:45 Initial 08727 -5 LOINC Inhaled Oxygen Flow Rate 1.00 L/min 09/20/2021 12:43 Most Recent 3151- 8 LOINC Inhaled Oxygen Flow Rate 2.00 L/min 09/17/2021 19:30 Initial 3151- 8 LOINC Fraction of Inspired Oxygen 21 % 09/20/2021 15:21 Most Recent 3150- 0 LOINC Fraction of Inspired Oxygen 21 % 09/19/2021 16:55 Initial 3150- 0 LOINC Pulse 76.0 /min 09/21/2021 06:05 Most Recent 8867- 4 LOINC Pulse 76.0 /min 09/17/2021 16:45 Initial 8867- 4 LOINC Respiration 18 /min 09/21/19 22 06:05 Most Recent 9279- 1 LOINC Respiration 18 /min 09/17/19 22 16:45 Initial 9279- 1 LOINC Temperature 37.0 Kalani 98.6 F 09/21/19 22 06:05 Most Recent 8310- 5 LOINC Temperature 36.8 Kalani 98.2 F 09/17/19 22 16:45 Initial 8310- 5 LOINC Weight 96.91 kg 213.65 lbs 09/20/2021 13:21 Most Recent 40990 -7 LOINC Weight 96.91 kg 213.65 lbs 09/05/2021 07:51 Initial 50913 -7 LOINC Medications Medication Start Date End Date Route Frequency Dose Code Code System Medication Instructions Home Meds Androderm 4MG/24HR Transdermal Patch, Extended Release 09/25/2021 Unknown TRANSDERMAL BEDTIME 1 TRANSDERMAL PATCH 5454011 RxNorm APPLY 1 TRANSDERMAL PATCH TRANSDERMAL BEDTIME Aspir 81 81MG Oral Tablet, Enteric Coated 09/25/2021 Unknown ORAL DAILY 81 MILLIGRAMS RxNorm TAKE 81 MILLIGRAMS ORAL DAILY Atorvastatin Calcium 80MG Oral Tablet 09/25/2021 Unknown ORAL BEDTIME 80 MILLIGRAMS 733467 RxNorm TAKE 80 MILLIGRAMS ORAL BEDTIME Calcium 600 MG Oral Tablet 09/25/2021 Unknown ORAL DAILY 600 MG 883828 RxNorm TAKE 600 MG ORAL DAILY Temazepam 15MG Oral Capsule 09/25/2021 Unknown ORAL BEDTIME 15 MILLIGRAMS 412061 RxNorm TAKE 15 MILLIGRAMS ORAL BEDTIME Valsartan 160MG Oral Tablet 09/25/2021 09/25/19 22 ORAL DAILY 160 MILLIGRAMS 964940 RxNorm TAKE 160 MILLIGRAMS ORAL DAILY Vitamin D 1000IU Oral Tablet 09/25/2021 Unknown ORAL DAILY 1000 INTERNATIONA L UNITS 517640 RxNorm TAKE 1000 INTERNATIONA L UNITS ORAL DAILY buPROPion Hydrochlorid e SR 150MG Oral Tablet, Extended Release, 12 HR 09/25/2021 Unknown ORAL TWICE A DAY 150 MILLIGRAMS 4685412 RxNorm TAKE 150 MILLIGRAMS ORAL TWICE A DAY Valsartan 160MG Oral Tablet 09/25/2021 09/26/19 22 ORAL DAILY 160 MILLIGRAMS 806045 RxNorm TAKE 160 MILLIGRAMS ORAL DAILY Valsartan 160MG Oral Tablet 09/26/2021 Unknown ORAL DAILY 160 MILLIGRAMS 356327 RxNorm TAKE 1 TABLET BY MOUTH DAILY Hospital Discharge Instructions Should you have any questions prior to discharge, please contact a member of your healthcare team. If you have left the hospital and have any questions, please contact your primary care physician. Reason For Referral No Data Found Procedures Procedure Name Date Status Code Code Syste m Division of Left Ankle Tendo n, Percutaneous Approach 09/17/2021 completed [id number] Fusion of Left Tarsometatars al Joint with Nonautologous Tissue Substitute, Open Approach 09/17/2021 completed [id number] Division of Left Ankle Tendon, Open Approach 09/17/2021 co mpleted [id number] Supplement Left Ankle Tendon with Autologous Tissue Substitute, Open Approach 09/17/2021 completed [id number] Introduction of Anesthetic A gent into Peripheral Nerves and Plexi, Percutaneous Approach 09/17/2021 completed [id number] Anesthesia, Nerves/Muscles/T endons & Fascia, Lower Leg/Ankle/Foot; NOS 09/17/2021 completed 09906 CPT Implants Implanted DALE Status Assigning Authority Procedure Date Lot Number Serial Number Manufacturing Date Expiration Date Distinct ID Code Brand Name Model Number Tendon/lig ament bone anchor, non-bioabs orbable 0100 8888 6700 8533 1726 0531 1013 4425 49 Active FDA Left foot triple arthrodesi s, deltoid ligament reconstruc tion 09/17 [id number] 9 01/15/2026 Arthre x(R) AR-1319 FT Bone matrix implant, synthetic, non-antimi crobial 0110 8594 7700 2140 1121 1220 1723 0430 1017 2247 8 Active FDA left foot triple arthrodesi s, poss deltoid ligament reconsttru ction 09/17 6598835 08/06/2021 12/15/2022 AUGMEN T(R) Inject able [id number] 10 +M53 6276 1501 51/$ $526 2702 0524 9120 3F Active FDA left foot triple arthrodesi s, possible deltoid ligament reconstruc tion 09/17 9164927 203F 05/14/2026 Cancel lous Chips 4-9.5m m 15 cc Allergies and Adverse Reactions Allergy Substance Reaction Severity Start Date Concern Status Co de Code System OXYCODONE NAUSEA (SNOMED-CT: 880318710), Nausea (SNOMED-CT: 821207943) Mild Active 7804 RxNorm Plan of Treatment PRE-OP COVID-19 TESTING 09/14/2021 MRI LOWER EXT W/O CONTRAST 07/17/2021 Plan Pt will continue to work with PT in hopes of discharging to home over the weekend. He will followup in two weeks for splint and suture removal. Medications given this visit: Ordered & Completed Meds Table Ordered Medication Start Date/Time Dosage Route Frequency Status CeFAZolin IVPB FROZEN PREMIX: 2GM/100ML 09/17/2021 06:00 200 ml/hr IV PIGGYBACK X1 completed LACTATED RINGERS 1000ML 09/17/2021 06:00 100 ml/hr INTRAVENOUS X1 completed MIDAZOLAM INJ SDV: 2MG/2ML 09/17/2021 06:00 2 MG IV PUSH X1 completed MIDAZOLAM INJ SDV: 2MG/2ML 09/17/2021 06:00 2 MG IV PUSH X1 completed PREOP TIME OF ANTIBIOTIC 09/17/2021 11:30 1 EA --- X1 active LACTATED RINGERS 1000ML 09/17/2021 11:49 100 ml/hr INTRAVENOUS CONT IN PACU completed FentaNYL INJ SDV: 100MCG/2ML 09/17/2021 11:49 25 MCG IV PUSH PRN IN PACU Q5MIN completed HYDROmorphone INJ SYRINGE: 0.5MG/0.5ML 09/17/2021 11:49 0.25 MG IV PUSH PRN IN PACU Q5MIN completed ACETAMINOPHEN TABLET: 325MG 09/17/2021 11:49 975 MG ORALLY PRN IN PACU X1 completed ACETAMINOPHEN INJ SDV: 1000MG/100ML 09/17/2021 11:49 400 ml/hr IV PIGGYBACK PRN IN PACU X1 completed ONDANSETRON INJ SDV: 4MG/2ML 09/17/2021 11:49 4 MG IV PUSH PRN IN PACU X1 completed HYDROcodone/ACETAMINOPHEN TAB: 5/325MG 09/17/2021 12:21 1 TAB ORALLY PRN IN PACU completed TEMAZEPAM CAPSULE: 7.5MG 09/17/2021 21:00 15 MG ORALLY BEDTIME active NF-Androderm Transdermal Patch ER 4MG/24 09/17/2021 21:00 1 EA TRANSDERMAL BEDTIME active ATORVASTATIN TABLET: 40MG 09/17/2021 21:00 40 MG ORALLY BEDTIME active BuPROPion SR TABLET: 150MG 09/17/2021 11:05 150 MG ORALLY BID active LACTATED RINGERS 1000ML 09/17/2021 11:09 500 ml/hr INTRAVENOUS PRN completed DEXTROSE 5% AND NACL 0.45% 1000ML 09/17/2021 11:09 125 ml/hr INTRAVENOUS CONT active SODIUM CHLORIDE 0.9% 250ML 09/17/2021 11:09 999 ml/hr IV PIGGYBACK PRN active ONDANSETRON INJ SDV: 4MG/2ML 09/17/2021 11:09 4 MG IV PUSH PRN Q6H active ONDANSETRON TABLET ORAL DISINTEGRAT: 4MG 09/17/2021 11:09 4 MG ORALLY PRN Q6H active METOCLOPRAMIDE INJ SDV: 10MG/2ML 09/17/2021 11:09 10 MG IV PUSH PRN Q6H active METOCLOPRAMIDE TABLET: 10MG 09/17/2021 11:09 10 MG ORALLY PRN Q6H active MORPHINE INJ SYRINGE: 2MG/ML 09/17/2021 11:09 2 MG IV PUSH PRN Q4H active SENNA/DOCUSATE TABLET: 8.6MG/50MG 09/17/2021 11:09 2 TAB ORALLY BID active MILK OF MAGNESIA SUSP UD: 2400MG/30ML 09/17/2021 11:09 30 ML ORALLY PRN BID active BISACODYL SUPPOSITORY: 10MG 09/17/2021 11:09 10 MG RECTALLY PRN DAILY active FLEET ENEMA 133ML 09/17/2021 11:09 133 ML RECTALLY PRN DAILY active ACETAMINOPHEN INJ SDV: 1000MG/100ML 09/17/2021 16:30 400 ml/hr IV PIGGYBACK Q6H completed ACETAMINOPHEN TABLET: 325MG 09/18/2021 10:30 975 MG ORALLY TID completed ALUM/MAG/SIM SUSP: 2400/2400/240MG/30ML 09/17/2021 11:09 15 ML ORALLY PRN Q4H active DiphenhydrAMINE CAP: 25MG 09/17/2021 11:09 25 MG ORALLY PRN Q6H active DiphenhydrAMINE INJ SDV: 50MG/ML 09/17/2021 11:09 25 MG IV PUSH PRN Q6H active CeFAZolin IVPB FROZEN PREMIX: 2GM/100ML 09/17/2021 19:30 200 ml/hr IV PIGGYBACK Q8H completed HYDROcodone/ACETAMINOPHEN TAB: 5/325MG 09/17/2021 11:09 1 TAB ORALLY PRN Q4H active ASPIRIN TABLET E.C.: 81MG 09/18/2021 08:00 81 MG ORALLY DAILY WITH FOOD active HYDROcodone/ACETAMINOPHEN TAB: 5/325MG 09/17/2021 23:11 2 TAB ORALLY PRN Q4H completed HYDROmorphone TABLET: 2MG 09/18/2021 12:59 2 MG ORALLY PRN Q4H active ACETAMINOPHEN TABLET: 325MG 09/18/2021 14:40 650 MG ORALLY PRN Q4H active VALSARTAN TABLET: 40MG 09/19/2021 13:21 80 MG ORALLY X1 completed VALSARTAN TABLET: 40MG 09/19/2021 13:21 80 MG ORALLY DAILY active hydroCHLOROthiazide TABLET: 25MG 09/19/2021 13:21 25 MG ORALLY X1 completed hydroCHLOROthiazide TABLET: 25MG 09/19/2021 13:21 25 MG ORALLY DAILY active CALCIUM CARBONATE TAB CHEWABLE UD: 500MG 09/19/2021 16:24 500 MG CHEW PRN Q2H active FUROSEMIDE TABLET: 40MG 09/19/2021 17:02 40 MG ORALLY X1 completed FUROSEMIDE TABLET: 40MG 09/20/2021 08:00 40 MG ORALLY X1 completed POLYETHYLENE GLYCOL PACKET 3350:17GM 09/20/2021 09:55 17 GRAMS ORALLY DAILY completed FUROSEMIDE INJ SDV: 40MG/4ML 09/20/2021 14:54 40 MG IV PUSH X1 completed Discharge Medications: see attached sheet Discharge Medications: No Discharge Medications Available Encounters Encounter Diagnosis Start Date Code Code Sys tem 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
--- OUTSIDE RECORDS SUMMARY | 2024-06-30 12:25 | XMS_ITS ---
Author Organization Unknown Address [address] [place] [address] [phone] Phone Care Team Providers Care Washer Cutter Name Role Phone CRAIG Randle Attending Unavailable ADOLFO Randle Primary Unavailable Immunization Immunization Date Status Additional Notes Code Code System COVID-19, mRNA, LNP-S, PF, 1 00 mcg/0.5mL dose or 50 mcg/0.25mL dose 09/19/2020 Completed 207 CVX COVID-19, mRNA, LNP-S, PF, 1 00 mcg/0.5mL dose or 50 mcg/0.25mL dose 10/17/2020 Completed 207 [facility]X [facility] Pushpa ect Date/Time: 09/14/2021 09:51 [facility] ID: [id number] [address] [place] [address], [id number] LOINC: 35524-9 Test Value Unit Reference Range Code Code System Flag Tier- PRE-OP 61822-6 LOINC SARS COV2 RNA: NEGATIVE REFERENCE RANGE: NEGAT 62611-8 L OINC Social History Type Status Start Date End Date Code Code Syst em Smoking History Former smoker 08/18/19958952 0924745 SNOMED CT Sex Male Medications Medication Start Date End Date Route Frequency Dose Code Code System Medication Instructions Home Meds Androderm 4MG/24HR Transdermal Patch, Extended Release 09/25/2021 Unknown TRANSDERMAL BEDTIME 1 TRANSDERMAL PATCH 4861437 RxNorm APPLY 1 TRANSDERMAL PATCH TRANSDERMAL BEDTIME Aspir 81 81MG Oral Tablet, Enteric Coated 09/25/2021 Unknown ORAL DAILY 81 MILLIGRAMS RxNorm TAKE 81 MILLIGRAMS ORAL DAILY Atorvastatin Calcium 80MG Oral Tablet 09/25/2021 Unknown ORAL BEDTIME 80 MILLIGRAMS 002470 RxNorm TAKE 80 MILLIGRAMS ORAL BEDTIME Calcium 600 MG Oral Tablet 09/25/2021 Unknown ORAL DAILY 600 MG 406713 RxNorm TAKE 600 MG ORAL DAILY Temazepam 15MG Oral Capsule 09/25/2021 Unknown ORAL BEDTIME 15 MILLIGRAMS 234200 RxNorm TAKE 15 MILLIGRAMS ORAL BEDTIME Valsartan 160MG Oral Tablet 09/25/2021 09/25/19 22 ORAL DAILY 160 MILLIGRAMS 994323 RxNorm TAKE 160 MILLIGRAMS ORAL DAILY Vitamin D 1000IU Oral Tablet 09/25/2021 Unknown ORAL DAILY 1000 INTERNATIONA L UNITS 143656 RxNorm TAKE 1000 INTERNATIONA L UNITS ORAL DAILY buPROPion Hydrochlorid e SR 150MG Oral Tablet, Extended Release, 12 HR 09/25/2021 Unknown ORAL TWICE A DAY 150 MILLIGRAMS 1130171 RxNorm TAKE 150 MILLIGRAMS ORAL TWICE A DAY Valsartan 160MG Oral Tablet 09/25/2021 09/26/19 22 ORAL DAILY 160 MILLIGRAMS 117043 RxNorm TAKE 160 MILLIGRAMS ORAL DAILY Valsartan 160MG Oral Tablet 09/26/2021 Unknown ORAL DAILY 160 MILLIGRAMS 573056 RxNorm TAKE 1 TABLET BY MOUTH DAILY [...] arthrodesi s, deltoid ligament reconstruc tion 09/17 2019668 9 01/15/2026 Arthre x(R) AR-1319 FT Bone matrix implant, synthetic, non-antimi crobial 0110 8594 7700 2140 1121 1220 1723 0430 1017 2247 8 Active FDA left foot triple arthrodesi s, poss deltoid ligament reconsttru ction 09/17 [id number] 08/06/2021 12/15/2022 AUGMEN T(R) Inject able [id number] 10 +M53 6276 1501 51/$ $526 9891 5029 9173 3F Active FDA left foot triple arthrodesi s, possible deltoid ligament reconstruc tion 09/172491 203F 05/14/2026 Cancel lous Chips 4-9.5m m 15 cc Allergies and Adverse Reactions Allergy Substance Reaction Severity Start Date Concern Status Co de Code System OXYCODONE NAUSEA (SNOMED-CT: 824787945), Nausea (SNOMED-CT: 589130183) Mild Active 7804 RxNorm Plan of Treatment PRE-OP COVID-19 TESTING 09/14/2021 MRI LOWER EXT W/O CONTRAST 07/17/2021 Encounters Encounter Diagnosis Start Date Code Code Sys tem Pre-surgery testing 09/14/2021 [id number] SNOMED-C T Personal Care Team Section Performer Name Performer Role Active Date Inactive Da te
--- OUTSIDE RECORDS SUMMARY | 2024-06-30 12:26 | XMS_ITS ---
Author Organization Unknown Address [address] [place] [address] [phone] Phone Care Team Providers Care Building Rental Superintendent Name Role Phone CRAIG Randle Attending Unavailable [...] Code Syst em Smoking History Former smoker 08/18/19958342 3026227 SNOMED CT Sex Male Medications Medication Start Date End Date Route Frequency Dose Code Code System Medication Instructions Home Meds Androderm 4MG/24HR Transdermal Patch, Extended Release 09/25/2021 Unknown TRANSDERMAL BEDTIME 1 TRANSDERMAL PATCH 4514567 RxNorm APPLY 1 TRANSDERMAL PATCH TRANSDERMAL BEDTIME Aspir 81 81MG Oral Tablet, Enteric Coated 09/25/2021 Unknown ORAL DAILY 81 MILLIGRAMS RxNorm TAKE 81 MILLIGRAMS ORAL DAILY Atorvastatin Calcium 80MG Oral Tablet 09/25/2021 Unknown ORAL BEDTIME 80 MILLIGRAMS 714770 RxNorm TAKE 80 MILLIGRAMS ORAL BEDTIME Calcium 600 MG Oral Tablet 09/25/2021 Unknown ORAL DAILY 600 MG 149083 RxNorm TAKE 600 MG ORAL DAILY Temazepam 15MG Oral Capsule 09/25/2021 Unknown ORAL BEDTIME 15 MILLIGRAMS 758764 RxNorm TAKE 15 MILLIGRAMS ORAL BEDTIME Valsartan 160MG Oral Tablet 09/25/2021 09/25/19 22 ORAL DAILY 160 MILLIGRAMS 095200 RxNorm TAKE 160 MILLIGRAMS ORAL DAILY Vitamin D 1000IU Oral Tablet 09/25/2021 Unknown ORAL DAILY 1000 INTERNATIONA L UNITS 971870 RxNorm TAKE 1000 INTERNATIONA L UNITS ORAL DAILY buPROPion Hydrochlorid e SR 150MG Oral Tablet, Extended Release, 12 HR 09/25/2021 Unknown ORAL TWICE A DAY 150 MILLIGRAMS 2977114 RxNorm TAKE 150 MILLIGRAMS ORAL TWICE A DAY Valsartan 160MG Oral Tablet 09/25/2021 09/26/19 22 ORAL DAILY 160 MILLIGRAMS 492627 RxNorm TAKE 160 MILLIGRAMS ORAL DAILY Valsartan 160MG Oral Tablet 09/26/2021 Unknown ORAL DAILY 160 MILLIGRAMS 048604 RxNorm TAKE 1 TABLET BY MOUTH DAILY [...] arthrodesi s, deltoid ligament reconstruc tion 09/17 5143220 9 01/15/2026 Arthre x(R) AR-1319 FT Bone matrix implant, synthetic, non-antimi crobial 0110 8594 7700 2140 1121 1220 1723 0430 1017 2247 8 Active FDA left foot triple arthrodesi s, poss deltoid ligament reconsttru ction 09/17 9474631 08/06/2021 12/15/2022 AUGMEN T(R) Inject able [id number] 10 +M53 6276 1501 51/$ $526 2702 0524 9120 3F Active FDA left foot triple arthrodesi s, possible deltoid ligament reconstruc tion 09/17 8234448 05/14/2026 Cancel lous Chips 4-9.5m m 15 cc Allergies and Adverse Reactions Allergy Substance Reaction Severity Start Date Concern Status Co de Code System OXYCODONE NAUSEA (SNOMED-CT: 273368192), Nausea (SNOMED-CT: 667014332) Mild Active 7804 RxNorm Plan of Treatment PRE-OP COVID-19 TESTING 09/14/2021 MRI LOWER EXT W/O CONTRAST 07/17/2021 Encounters Encounter Diagnosis Start Date Code Code Sys tem Encounter for other orthopedic aftercare 09/21/2021 SNOMED-CT Personal Care Team Section Performer Name Performer Role Active Date Inactive Da te
--- OUTSIDE RECORDS SUMMARY | 2024-06-30 12:26 | XMS_ITS ---
Author Organization Unknown Address [address] [place] [address] [phone] Phone Care Team Providers Care Rounding Machine Operator Name Role Phone SEVEN Rosa Attending Unavailable [...] Code Syst em Smoking History Former smoker 08/18/19951795 15336[address] SNOMED [address] Sex Male Medications Medication Start Date End Date Route Frequency Dose Code Code System Medication Instructions Home Meds Androderm 4MG/24HR Transdermal Patch, Extended Release 09/25/2021 Unknown TRANSDERMAL BEDTIME 1 TRANSDERMAL PATCH 2360348 RxNorm APPLY 1 TRANSDERMAL PATCH TRANSDERMAL BEDTIME Aspir 81 81MG Oral Tablet, Enteric Coated 09/25/2021 Unknown ORAL DAILY 81 MILLIGRAMS RxNorm TAKE 81 MILLIGRAMS ORAL DAILY Atorvastatin Calcium 80MG Oral Tablet 09/25/2021 Unknown ORAL BEDTIME 80 MILLIGRAMS 348118 RxNorm TAKE 80 MILLIGRAMS ORAL BEDTIME Calcium 600 MG Oral Tablet 09/25/2021 Unknown ORAL DAILY 600 MG 174504 RxNorm TAKE 600 MG ORAL DAILY Temazepam [...] Unknown ORAL TWICE A DAY 150 MILLIGRAMS 2672819 RxNorm TAKE 150 MILLIGRAMS ORAL TWICE A DAY Valsartan 160MG Oral Tablet 09/26/2021 Unknown ORAL DAILY 160 MILLIGRAMS 165460 RxNorm TAKE 1 TABLET BY MOUTH DAILY [...] arthrodesi s, deltoid ligament reconstruc tion 09/17 3772472 9 01/15/2026 Arthre x(R) AR-1319 FT Bone matrix implant, synthetic, non-antimi crobial 0110 8594 7700 2140 1121 1220 1723 0430 1017 2247 8 Active FDA left foot triple arthrodesi s, poss deltoid ligament reconsttru ction 09/17 2251608 08/06/2021 12/15/2022 AUGMEN T(R) Inject able [id number] 10 +M53 6276 1501 51/$ $526 2702 0524 9120 3F Active FDA left foot triple arthrodesi s, possible deltoid ligament reconstruc tion 09/17 7794613 203F 05/14/2026 Cancel lous Chips 4-9.5m m 15 cc Allergies and Adverse Reactions Allergy Substance Reaction Severity Start Date Concern Status Co de Code System OXYCODONE NAUSEA (SNOMED-CT: 711425593), Nausea (SNOMED-CT: 496285796) Mild Active 7804 RxNorm Plan of Treatment PRE-OP COVID-19 TESTING 09/14/2021 MRI LOWER EXT W/O CONTRAST 07/17/2021 Encounters Encounter Diagnosis Start Date Code Code Sys tem Removal of suture 10/02/2021 26371417 iMedXOMED-CT Personal Care Team Section Performer Name Performer Role Active Date Inactive Da te
--- OUTSIDE RECORDS SUMMARY | 2024-06-30 12:26 | XMS_ITS ---
Author Organization Unknown Address [address] [place] [address] [phone] Phone Care Team Providers Care Regulatory Affairs Coordinator Name Role Phone CRAIG Randle Attending [...] Dictated by: IMAN DRIVER MD Transcribed by: [facility] 10/31/21/12:58 D Saturday, October 30, 2021 4:30:16 PM [id number] Electronically Reviewed and Signed By: ELIAN DRIVER [...] Dictated by: IMAN DRIVER MD Transcribed by: [facility] 10/31/2113:12 D Saturday, October 30, 2021 4:32:43 PM [id number] Electronically Reviewed and Signed By: ELIAN DRIVER MD 11/02/21 10:17 Copy for: ADOLFO JOO Randle via fax Copy for: [facility] [employer] Social History Type Status Start Date End Date Code Code Syst em Smoking History Former smoker 08/18/19950370 6615129 SNOMED CT Sex Male Medications Medication Start Date End Date Route Frequency Dose Code Code System Medication Instructions Home Meds Androderm 4MG/24HR Transdermal Patch, Extended Release 09/25/2021 Unknown TRANSDERMAL BEDTIME 1 TRANSDERMAL PATCH 0024199 RxNorm APPLY 1 TRANSDERMAL PATCH TRANSDERMAL BEDTIME Aspir 81 81MG Oral Tablet, Enteric Coated 09/25/2021 Unknown ORAL DAILY 81 MILLIGRAMS RxNorm TAKE 81 MILLIGRAMS ORAL DAILY Atorvastatin Calcium 80MG Oral Tablet 09/25/2021 Unknown ORAL BEDTIME 80 MILLIGRAMS 723911 RxNorm TAKE 80 MILLIGRAMS ORAL BEDTIME Calcium 600 MG Oral Tablet 09/25/2021 Unknown ORAL DAILY 600 MG 538000 RxNorm TAKE 600 MG ORAL DAILY Temazepam 15MG Oral Capsule 09/25/2021 Unknown ORAL BEDTIME 15 MILLIGRAMS 19811116 RxNorm TAKE 15 MILLIGRAMS ORAL BEDTIME Vitamin D 1000IU Oral Tablet 09/25/2021 Unknown ORAL DAILY 1000 INTERNATIONA L UNITS 330013 RxNorm TAKE 1000 INTERNATIONA L UNITS ORAL DAILY buPROPion Hydrochlorid e SR 150MG Oral Tablet, Extended Release, 12 HR 09/25/2021 Unknown ORAL TWICE A DAY 150 MILLIGRAMS 7422921 RxNorm TAKE 150 MILLIGRAMS ORAL TWICE A DAY Valsartan 160MG Oral Tablet 09/26/2021 Unknown ORAL DAILY 160 MILLIGRAMS 627680 RxNorm TAKE 1 TABLET BY MOUTH DAILY [...] arthrodesi s, deltoid ligament reconstruc tion 09/17 4108672 9 01/15/2026 Arthre x(R) AR-1319 FT Bone matrix implant, synthetic, non-antimi crobial 0110 8594 7700 2140 1121 1220 1723 0430 1017 2247 8 Active FDA left foot triple arthrodesi s, poss deltoid ligament reconsttru ction 09/17 2295248 08/06/2021 12/15/2022 AUGMEN T(R) Inject able [id number] 10 +M53 6276 1501 51/$ $526 2702 0524 9120 3F Active FDA left foot triple arthrodesi s, possible deltoid ligament reconstruc tion 09/17 3136888 F 05/14/2026 Cancel lous Chips 4-9.5m m 15 cc Allergies and Adverse Reactions Allergy Substance Reaction Severity Start Date Concern Status Co de Code System OXYCODONE NAUSEA (SNOMED-CT: 282253148), Nausea (SNOMED-CT: 197459277) Mild Active 7804 RxNorm Plan of Treatment PRE-OP COVID-19 TESTING 09/14/2021 MRI LOWER EXT W/O CONTRAST 07/17/2021 Encounters Encounter Diagnosis Start Date Code Code Sys tem Arthrodesis 10/30/2021 84212682 schooxOMED-CT Personal Care Team Section Performer Name Performer Role Active Date Inactive Da te
--- OUTSIDE RECORDS SUMMARY | 2024-06-30 12:26 | XMS_ITS ---
Author Organization Unknown Address [address] [place] [address] [phone] Phone Care Team Providers Care Parts Back Counter Man Name Role Phone CRAIG Randle Attending Unavailable [...] D Saturday, December 11, 2021 2:11:02 PM [id number] Electronically Reviewed and Signed By: STEVIE GARRISON [...] D Saturday, December 11, 2021 2:11:02 PM [id number] Electronically Reviewed and Signed By: STEVIE GARRISON RADIOLOGIST 12/17/21 11:29 Copy for: ADOLFO GE Razia via fax Copy for: 185 HEALTH INFORMATION MGMT Social History Type Status Start Date End Date Code Code Syst em Smoking History Former smoker 08/18/19954338 8770305 SNOMED CT Sex Male Medications Medication Start Date End Date Route Frequency Dose Code Code System Medication Instructions Home Meds Androderm 4MG/24HR Transdermal Patch, Extended Release 09/25/2021 Unknown TRANSDERMAL BEDTIME 1 TRANSDERMAL PATCH 6223404 RxNorm APPLY 1 TRANSDERMAL PATCH TRANSDERMAL BEDTIME Aspir 81 81MG Oral Tablet, Enteric Coated 09/25/2021 Unknown ORAL DAILY 81 MILLIGRAMS RxNorm TAKE 81 MILLIGRAMS ORAL DAILY Atorvastatin Calcium 80MG Oral Tablet 09/25/2021 Unknown ORAL BEDTIME 80 MILLIGRAMS 349331 RxNorm TAKE 80 MILLIGRAMS ORAL BEDTIME Calcium 600 MG Oral Tablet 09/25/2021 Unknown ORAL DAILY 600 MG 025806 RxNorm TAKE 600 MG ORAL DAILY Temazepam 15MG Oral Capsule 09/25/2021 Unknown ORAL BEDTIME 15 MILLIGRAMS 643890 RxNorm TAKE 15 MILLIGRAMS ORAL BEDTIME Vitamin D 1000IU Oral Tablet 09/25/2021 Unknown ORAL DAILY 1000 INTERNATIONA L UNITS 643631 RxNorm TAKE 1000 INTERNATIONA L UNITS ORAL DAILY buPROPion Hydrochlorid e SR 150MG Oral Tablet, Extended Release, 12 HR 09/25/2021 Unknown ORAL TWICE A DAY 150 MILLIGRAMS 9709766 RxNorm TAKE 150 MILLIGRAMS ORAL TWICE A DAY Valsartan 160MG Oral Tablet 09/26/2021 Unknown ORAL DAILY 160 MILLIGRAMS 622128 RxNorm TAKE 1 TABLET BY MOUTH DAILY [...] arthrodesi s, deltoid ligament reconstruc tion 09/17 7762375 9 01/15/2026 Arthre x(R) AR-1319 FT Bone matrix implant, synthetic, non-antimi crobial 0110 8594 7700 2140 1121 1220 1723 0430 1017 2247 8 Active FDA left foot triple arthrodesi s, poss deltoid ligament reconsttru ction 09/17 1849747 08/06/2021 12/15/2022 AUGMEN T(R) Inject able [id number] 10 +M53 6276 1501 51/$ $526 2702 0524 9120 3F Active FDA left foot triple arthrodesi s, possible deltoid ligament reconstruc tion 09/17 2039498 203F 05/14/2026 Cancel lous Chips 4-9.5m m 15 cc Allergies and Adverse Reactions Allergy Substance Reaction Severity Start Date Concern Status Co de Code System OXYCODONE NAUSEA (SNOMED-CT: 567863346), Nausea (SNOMED-CT: 510991189) Mild Active 7804 RxNorm Plan of Treatment PRE-OP COVID-19 TESTING 09/14/2021 MRI LOWER EXT W/O CONTRAST 07/17/2021 Encounters Encounter Diagnosis Start Date Code Code Sys tem Arthrodesis 12/11/2021 65320799 SNOMED-CT Personal Care Team Section Performer Name Performer Role Active Date Inactive Da valeri
--- OUTSIDE RECORDS SUMMARY | 2024-06-30 12:27 | XMS_ITS | Encounter Summary ---
Author Organization [facility] [place] [address] Care Team Providers Care Police Records Clerk Name Role Phone Blanco Myles MD Primary Care Provider [phone] Encounter Details Date Type Department Care Team (Latest Contact Info) Description 01/16/2024 10:08 PM EDT - 01/16/2024 11:59 PM EDT Hospital [place] [address] Discharge Disposition: Home Social History Tobacco Use [...] Sig Dispensed Refills Start Date End Date dabigatran (Pradaxa) 150 mg capsule Take 1 [...] mg Tablet, SublingualIndications:C 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 25 tablet 01/23/2022 atorvastatin (Lipitor) 80 mg Tablet Take 80 mg by mouth every evening. 05/31/2020 fluticasone propionate (FLONASE) 50 mcg/actuation [place], Suspension 2 sprays by Each Nare route daily as needed. 03/11/2020 polyethylene glycol (MIRALAX) 17 gram Powder in Packet Take 17 g by mouth daily as needed. 01/14/2018 multivitamin (THERAGRAN) Tablet Take 1 tablet by mouth daily. cholecalciferol, Vitamin D3, 50 mcg (2,000 unit) Capsule Take 1 capsule by mouth daily. benzonatate (Tessalon) 200 mg capsule 04/05/2024 fluorouraciL (EFUDEX) 5 % Cream Apply twice daily for 1 week on then stop for 3 weeks. Repeat for total of 3 cycles 40 g 1 01/14/2023 04/05/2024 buPROPion (WELLBUTRIN SR OR ZYBAN) 150 mg Tablet Sustained Release 12 hr take 1 tablet by mouth twice a day 0 12/23/2016 04/05/2024 documented as of this encounter Plan of Treatment Upcoming Encounters Date Type Department Care Team (Late st Contact Info) Description 10/07/2024 3:00 PM EST Office Visit Cardiology at [address] [phone] Joel Link MD [facility] [place] [address] 01/18/2025 10:15 AM EDT Office Visit Dermatology at [address] [phone] Mathew Fernando MD [address] [place] [address], [facility] DERMATOLOGY [place], [place] [phone] documented as of this encounter Procedures Procedure Name Priority Date/Time Associated Diagnosis Comments SURGICAL PATHOLOGY REPORT Routine 01/16/2024 10:55 AM EDT documented in this encounter Results * Surgical Pathology Report (01/16/2024 10:55 AM EDT) Final Diagnosis [id number] ? Location: [facility] The signing pathologist has (i) examined the relevant preparation(s) for the specimen(s) and (ii) rendered or confirmed the diagnosis(es). . ?Surgical Pathology DIAGNOSIS Right mid cheek, skin shave biopsy C&D: - ??Basal cell carcinoma, superficial and nodular types, ?? present at the peripheral and deep specimen edges Electronically signed by: ?Karthik QUINTERO, PhD, [facility] Verified: ??01/23/2024 15:43 ??Dermatopathol ogist Performed at: ??-[facility] Dept. of Pathology, [place] [address] Boil Off Machine Operator Cloth: Alma Giang MD, AP, ??CLIA Certificate: [id number] SPECIMEN(S) SUBMITTED A - R mid cheek, [...] labeled A1. ??shb 01/23/2024 3:43 PM EDT [facility] SPECIMEN FROM SKIN / Unknown 01/16/2024 10:55 AM EDT 01/16/2024 10:55 AM EDT Mathew Fernando MD PATHOLOGY/CYTOLOGY O DANIELITO [facility] [place] [address] documented in this encounter Visit Diagnoses Not on filedocumented in this encounter Care Teams Police Records Clerk Relationship Specialty Start Date End Date Blanco Myles MD [address] [place] [address] PCP - General Family Medicine 03/20/23 documented as of this encounter
--- OUTSIDE RECORDS SUMMARY | 2024-06-30 12:27 | XMS_ITS | Encounter Summary ---
Author Organization [facility] [place] [address] Care Team Providers Care Agile Business Analyst Name Role Phone Blanco Myles MD Primary Care Provider [phone] Encounter Details Date Type Department Care Team (Late st Contact Info) Description 07/01/2023 Telephone Cardiology at [address] [phone] Bonnie Watson, RN Social History [...] 07/01/2023 1:25 PM EST [employer] 1940 [facility] Managed Medicare policy # [id number] Insurance PA phone call Kerfer Machine Operator: Pattie Call Reference #: [id number] The CPT codes / tests will not require prior authorization because the ordering provider Dr. Vikki Link is out of network. Bonnie Watson RN 07/01/2023 documented in this encounter Plan of Treatment Upcoming Encounters Date Type Department Care Team (Late st Contact Info) Description 10/07/2024 3:00 PM EST Office Visit Cardiology at [address] [place] [phone] Joel Link MD [facility] [place] [address] 01/18/2025 10:15 AM EDT Office Visit Dermatology at [address] [place] [phone] Mathew Fernando MD [address] [facility] [place] Thomas DERMATOLOGY [place], [place] [phone] documented as of this encounter Visit Diagnoses Not on filedocumented in this encounter Care Teams Agile Business Analyst Relationship Specialty Start Date End Date Blanco Myles MD [address] [address] PCP - General Family Medicine 03/20/23 documented as of this encounter
--- OUTSIDE RECORDS SUMMARY | 2024-06-30 12:27 | XMS_ITS | Encounter Summary ---
Author Organization [facility] [place] [address] Care Team Providers Care Apprentice Technician Name Role Phone Blanco Myles MD Primary Care Provider [phone] Encounter Details Date Type Department Care Team (Late st Contact Info) Description 01/13/2024 Telephone Cardiology at [address] [phone] Joel Link MD [facility] [place] [address] Social History Tobacco Use Types Packs/Day Years [...] - 01/13/2024 3:32 PM EDT Records from [facility] and [facility] scanned. * Telephone Encounter - Homar Mayorga RN - 01/13/2024 11:29 AM EDT Patient was in [facility] in November for a stroke, and then at [facility] in [facility]. Will request records. At present, [...] with the doctor. Please call him @ [phone] documented in this encounter Plan of Treatment Upcoming Encounters Date Type Department Care Team (Late st Contact Info) Description 10/07/2024 3:00 PM EST Office Visit Cardiology at [address] [phone] Joel Link MD [facility] [place] [address] 01/18/2025 10:15 AM EDT Office Visit Dermatology at [address] [phone] Mathew Fernando MD [address] [place] [address], [facility] [place], [place] [phone] documented as of this encounter Visit Diagnoses Not on filedocumented in this encounter Care Teams Apprentice Technician Relationship Specialty Start Date End Date Blanco Myles MD [address] [place] [address] PCP - General Family Medicine 03/20/23 documented as of this encounter
--- OUTSIDE RECORDS SUMMARY | 2024-06-30 12:27 | XMS_ITS | Encounter Summary ---
Author Organization [facility] [place] [address] Care Team Providers Care Vamp Throater Name Role Phone Blanco Myles MD Primary Care Provider [phone] Encounter Details Date Type Department Care Team (Late st Contact Info) Description 07/18/2023 Telephone Cardiology at [address] [phone] Joel Link MD [facility] [place] [address] Social History Tobacco Use Types Packs/Day Years [...] 3:00 PM EST Office Visit Cardiology at [address] [phone] Joel Link MD [facility] [place] [address] 01/18/2025 10:15 AM EDT Office Visit Dermatology at [address] [place] [phone] Mathew Fernando MD [address] [facility] [place] [address] documented as of this encounter Visit Diagnoses Not on filedocumented in this encounter Care Teams Vamp Throater Relationship Specialty Start Date End Date Blanco Myles MD [address] [place] [address] PCP - General Family Medicine 03/20/23 documented as of this encounter
--- OUTSIDE RECORDS SUMMARY | 2024-06-30 12:27 | XMS_ITS | Encounter Summary ---
[place] [address] Care Team Providers Care Trauma Doctor Name Role Phone Blanco Myles MD Primary Care Provider [phone] Reason for Visit * Reason Comments Annual Exam Encounter Details Date Type Department Care Team (Late st Contact Info) Description 01/16/2024 10:30 AM EDT Office Visit Dermatology at [address] [phone] Mathew Fernando MD [address] [facility] [place] [address] AK (actinic keratosis); History of SCC (squamous [...] History of extensive sun exposure living in [place] 3. History of BCCA's right upper back treated in [place] 4. History of BCCA left medial cheek [...] 3:00 PM EST Office Visit Cardiology at [address] [phone] Joel Link MD [facility] [place] [address] 01/18/2025 10:15 AM EDT Office Visit Dermatology at [address] [address] Mathew Fernando MD [address] [place] [address], [facility] DER[facility] [place], [place] [id number] documented as of this encounter Visit Diagnoses Diagnosis AK (actinic keratosis) Actinic keratosis History of SCC (squamous cell carcinoma) of skin Personal history of other malignant neoplasm of skin History of basal cell carcinoma Personal history of other malignant neoplasm of skin documented in this encounter Care Teams Trauma Doctor Relationship Specialty Start Date End Date Blanco Myles MD [address] [place] [address] PCP - General Family Medicine 03/20/23 documented as of this encounter
--- OUTSIDE RECORDS SUMMARY | 2024-06-30 12:27 | XMS_ITS | Encounter Summary ---
Author Organization [facility] [place] [address] Care Team Providers Care Tire Fabricator Name Role Phone Blanco Myles MD Primary Care Provider [phone] Reason for Visit * Reason Comments Cardiomyopathy Encounter Details Date Type Department Care Team (Latest Contact Info) Description 04/05/2024 3:00 PM EDT Office Visit Cardiology at [address] [phone] Joel Link MD [facility] [place] [address] Cardiomyopathy, ischemic; ASCVD (arteriosclerotic cardiovascular disease); PAF [...] Sign Reading Time Taken Comments Blood Pressure 120/94 04/05/2024 3:11 PM EDT Pulse 86 04/05/2024 3:11 PM EDT Temperature - - Respiratory Rate - - Oxygen Saturation - - Inhaled Oxygen Concentration - - Weight 86.2 kg (190 lb) 04/05/2024 3:11 PM EDT Height 180.3 cm (5' 11) 04/05/2024 3:11 PM EDT Body Mass Index 26.5 04/05/2024 3:11 PM EDT documented in this encounter Progress Notes * Joel Link MD - 04/05/2024 3:00 PM EDT Images from the original note were not included. Subjective: Patient ID: Tra Brothers III is a 83 y.o. male who presents on follow-up for: Chief Complaint Patient presents with Cardiomyopathy HPI Last seen by me 06/2023, at which time no changes were made. 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 Since then, he continues with nyha iii dyspnea. It is associated with hypoxia during rehab sessions, down to olivia of 70s Lingering tingling left arm/leg Current Outpatient Medications Medication Instructions Advair HFA 230-21 mcg/actuation inhaler (HFA) 2 puffs, Inhalation, 2 TIMES DAILY albuteroL 90 mcg/actuation inhaler (HFA) INHALE 2 PUFFS BY MOUTH FOUR TIMES A DAY aspirin EC 81 mg, Oral, DAILY atorvastatin (LIPITOR) 80 mg, Oral, EVERY EVENING buPROPion SR (WELLBUTRIN SR) 200 mg, Oral, 2 TIMES DAILY cholecalciferol, Vitamin D3, 50 mcg (2,000 unit) Capsule 1 capsule, Oral, DAILY dabigatran (Pradaxa) 150 mg capsule 1 capsule, Oral, 2 TIMES DAILY doxepin (SINEQUAN) 20 mg, Oral, NIGHTLY fluticasone propionate (FLONASE) 50 mcg/actuation [place], Suspension 2 sprays, Each Nare, DAILY PRN furosemide (LASIX) 20 mg, Oral, DAILY metoprolol succinate XL (TOPROL-XL) 25 mg, Oral, DAILY multivitamin (THERAGRAN) Tablet 1 tablet, Oral, DAILY nitroGLYcerin (NITROSTAT) 0.4 mg, Sublingual, EVERY 5 MIN PRN polyethylene glycoL (MIRALAX) 17 g, Oral, DAILY PRN tamsulosin (FLOMAX) 0.4 mg, Oral, NIGHTLY valsartan (Diovan) 160 mg tablet 1 tablet, Oral, DAILY AT NOON Patient Active Problem List Diagnosis PAF (paroxysmal atrial fibrillation) 08/2022: Dx tay-operative knee surgery. 05/2023: DCCV (1 @ 150). Acutely successful 06/2023 Holter (palpitations): nsr, normal rate. Occasional PVC (1.4%). no significant arrhythmia. No symptoms Cardiomyopathy, ischemic 11/2017: Preserved EF (64%), with lateral HK. 04/2019: EF 64%, no wmas 06/2022: EF 45-50%, no regional wmas. Mod MR 04/2023 TTE: normalized LV function. Unremarkable study aside from persistent rate controlled afib 11/2023 TTE ([facility], at time of CVA)): unchanged from prior ASCVD (arteriosclerotic cardiovascular disease) 11/2017 (NSTE-ACS): mild diffuse LM and RCA, 75% mid LAD-> JENNI, 95% prox OM1-> JENNI. 06/2023 RxNST (dyspnea): no ischemia/infarct Bilateral carotid artery stenosis 03/2019: auscultation of carotid bruit on left 04/21/2019: carotid US demonstrates mild stenosis (< 50%) in bilateral proximal ICA Fracture of distal phalanx of left index finger CKD (chronic kidney disease) De Quervain's tenosynovitis, left Depression Left knee DJD 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 Ventricular bigeminy Anemia of chronic renal failure, stage 3 (moderate) Hyperpiesia HLD (hyperlipidemia) Objective: BP (!) 120/94 (BP Location (NBP): Right arm, Patient Position: Sitting, BP Cuff Sizes: Adult (25-34cm)) Pulse 86 Ht 180.3 cm (5' 11) Wt 86.2 kg (190 lb) BMI 26.50 kg/m?? Gen: pleasant male in NAD Cor: rrr, s1/s2 of nl character and amplitude, no pathologic m/r/g. Estimated RAP not elevated. Carotids with normal upstroke without bruit. Pulm: CTAB. Normal diaphragmatic movement without use of accessory muscles Assessment and Plan: ASCVD (arteriosclerotic cardiovascular disease) No angina per history - Anti-Thrombosis: pradaxa - Statin: lipitor 80 - Anti-anginals: GTN PRN. Toprol Cardiomyopathy, ischemic No failure by exam. - Diuresis: lasix 20 qd - Cardioprotection: valsartan 160, toprol - Devices: none indicated PAF (paroxysmal atrial fibrillation) NO symptoms attributable - Strategy: paroxysmal rate. Continue toprol 25 - OAC: pradaxa - Reversible Causes: none identified He doesn't have an evident cause of exertional hypoxia evident based on current diagnostics (ie: doesn't have significant valve disease nor pulmonary hypertension, nor known intracardiac shunt). Hypoxia (assuming reading is accurate) during easy exercise is generally a pulmonary issue, and I think Dr Mena's investigation into this will be quite helpful. If no cause is found from a pulmonary axis, will re-visit a cardiac aetiology, though I reviewed that this would likely require invasive testing (that is, would be considering a RHC with a shunt run). RTC 6 months; will be able to direct next steps if needed via telephony if no pulmonary cause of exertional hypoxia is determined. Joel Link MD documented in this encounter Miscellaneous Notes * Assessment & Plan Note - Joel Link MD - 04/08/2024 5:42 PM EDT Associated Problem(s): PAF (paroxysmal atrial fibrillation) NO symptoms attributable - Strategy: paroxysmal rate. Continue toprol 25 - OAC: pradaxa - Reversible Causes: none identified * Assessment & Plan Note - Joel Link MD - 04/08/2024 5:42 PM EDT Associated Problem(s): Cardiomyopathy, ischemic No failure by exam. - Diuresis: lasix 20 qd - Cardioprotection: valsartan 160, toprol - Devices: none indicated * Assessment & Plan Note - Joel Link MD - 04/08/2024 5:41 PM EDT Associated Problem(s): ASCVD (arteriosclerotic cardiovascular disease) No angina per history - Anti-Thrombosis: pradaxa - Statin: lipitor 80 - Anti-anginals: GTN PRN. Toprol documented in this encounter Plan of Treatment Upcoming Encounters Date Type Department Care Team (Late st Contact Info) Description 10/07/2024 3:00 PM EST Office Visit Cardiology at [address] [place] [address] Joel Link MD [facility] [place] [address] 01/18/2025 10:15 AM EDT Office Visit Dermatology at [address] [phone] Mathew Fernando MD [address] [place] [address], [place] [address] documented as of this encounter Visit Diagnoses Diagnosis Cardiomyopathy, ischemic Other specified forms of chronic ischemic heart disease ASCVD (arteriosclerotic cardiovascular disease) Unspecified cardiovascular disease PAF (paroxysmal atrial fibrillation) Atrial fibrillation documented in this encounter Care Teams Tire Fabricator Relationship Specialty Start Date End Date Blanco Myles MD [address] [place] [address] PCP - General Family Medicine 03/20/23 documented as of this encounter
--- OUTSIDE RECORDS SUMMARY | 2024-06-30 12:27 | XMS_ITS | Encounter Summary ---
Author Organization [facility] [place] [address] Care Team Providers Care Physics Instructor Name Role Phone Blanco Myles MD Primary Care Provider [phone] Encounter Details Date Type Department Care Team (Late st Contact Info) Description 06/18/2023 Telephone Cardiology at [address] [phone] Joel Link MD [facility] [place] [address] Social History Tobacco Use Types Packs/Day Years [...] 3:00 PM EST Office Visit Cardiology at [address] [phone] Joel Link MD [facility] [place] [address] 01/18/2025 10:15 AM EDT Office Visit Dermatology at [address] [phone] Mathew Fernando MD [address] [facility] [place] [address] documented as of this encounter Visit Diagnoses Not on filedocumented in this encounter Care Teams Physics Instructor Relationship Specialty Start Date End Date Blanco Myles MD [address] [place] [address] PCP - General Family Medicine 03/20/23 documented as of this encounter
--- OUTSIDE RECORDS SUMMARY | 2024-06-30 12:27 | XMS_ITS ---
Author Organization Unknown Address [address] [place] [phone] Phone Care Team Providers Care Rocket Propellant Plant Supervisor Name Role Phone CRAIG Randle Attending Unavailable [...] IMAN DRIVER MD Transcribed by: JOSE 03/13/2211:35 [id number] Electronically Reviewed and Signed By: ELIAN DRIVER [...] IMAN DRIVER MD Transcribed by: JOSE 03/13/2211:33 [id number] Electronically Reviewed and Signed By: ELIAN DRIVER MD 03/20/22 09:04 Copy for: ADOLFO Randle via fax Copy for: [facility] Social History Type Status Start Date End Date Code Code Syst em Smoking History Former smoker 08/18/19958599 1657579 SNOMED CT Sex Male Medications Medication Start Date End Date Route Frequency Dose Code Code System Medication Instructions Home Meds Androderm 4MG/24HR Transdermal Patch, Extended Release 09/25/2021 Unknown TRANSDERMAL BEDTIME 1 TRANSDERMAL PATCH 2701913 RxNorm APPLY 1 TRANSDERMAL PATCH TRANSDERMAL BEDTIME Aspir 81 81MG Oral Tablet, Enteric Coated 09/25/2021 Unknown ORAL DAILY 81 MILLIGRAMS RxNorm TAKE 81 MILLIGRAMS ORAL DAILY Atorvastatin Calcium 80MG Oral Tablet 09/25/2021 Unknown ORAL BEDTIME 80 MILLIGRAMS 791799 RxNorm TAKE 80 MILLIGRAMS ORAL BEDTIME Calcium 600 MG Oral Tablet 09/25/2021 Unknown ORAL DAILY 600 MG 703946 RxNorm TAKE 600 MG ORAL DAILY Temazepam [...] Unknown ORAL TWICE A DAY 150 MILLIGRAMS 9217450 RxNorm TAKE 150 MILLIGRAMS ORAL TWICE A DAY Valsartan 160MG Oral Tablet 09/26/2021 Unknown ORAL DAILY 160 MILLIGRAMS 022411 RxNorm TAKE 1 TABLET BY MOUTH DAILY [...] arthrodesi s, deltoid ligament reconstruc tion 09/17 0041634 9 01/15/2026 Arthre x(R) AR-1319 FT Bone matrix implant, synthetic, non-antimi crobial 0110 8594 7700 2140 1121 1220 1723 0430 1017 2247 8 Active FDA left foot triple arthrodesi s, poss deltoid ligament reconsttru ction 09/17 [id number] 08/06/2021 12/15/2022 AUGMEN T(R) Inject able [id number] 10 +M53 6276 1501 51/$ $526 2702 0524 9120 3F Active FDA left foot triple arthrodesi s, possible deltoid ligament reconstruc tion 09/17 [id number] 203F 05/14/2026 Cancel lous Chips 4-9.5m m 15 cc Allergies and Adverse Reactions Allergy Substance Reaction Severity Start Date Concern Status Co de Code System OXYCODONE NAUSEA (SNOMED-CT: 310642818), Nausea (SNOMED-CT: 615363497) Mild Active 7804 RxNorm Plan of Treatment PRE-OP COVID-19 TESTING 09/14/2021 MRI LOWER EXT W/O CONTRAST 07/17/2021 Encounters Encounter Diagnosis Start Date Code Code Sys tem Breakage of internal fixation device 03/12/2022 7875 89643 SNOMED-CT Personal Care Team Section Performer Name Performer Role Active Date Inactive Da te
--- OUTSIDE RECORDS SUMMARY | 2024-06-30 12:27 | XMS_ITS | Encounter Summary ---
Author Organization [facility] [place] [address] Care Team Providers Care Advanced Manufacturing Associate Name Role Phone Blanco Myles MD Primary Care Provider [phone] Encounter Details Date Type Department Care Team (Late st Contact Info) Description 12/01/2023 Telephone Cardiology at [address] [phone] Bonnie Watson, RN Social History [...] Koch, neurologist. Erwin has been admitted to [facility] with stroke. Dr. Pittman conferring with Dr. Link. documented in this encounter Plan of Treatment Upcoming Encounters Date Type Department Care Team (Late st Contact Info) Description 10/07/2024 3:00 PM EST Office Visit Cardiology at [address] [phone] Joel Link MD [facility] [place] [address] 01/18/2025 10:15 AM EDT Office Visit Dermatology at [place] [address] [place] [address] Mathew Fernando MD [address], [place] [address] documented as of this encounter Visit Diagnoses Not on filedocumented in this encounter Care Teams Advanced Manufacturing Associate Relationship Specialty Start Date End Date Blanco Myles MD [address] [place] [address] PCP - General Family Medicine 03/20/23 documented as of this encounter
--- OUTSIDE RECORDS SUMMARY | 2024-06-30 12:27 | XMS_ITS | Encounter Summary ---
Author Organization [facility] [place] [address] Care Team Providers Care Botany Technician Name Role Phone Blanco Myles MD Primary Care Provider [phone] Encounter Details Date Type Department Care Team [...] 3:00 PM EST Office Visit Cardiology at [address] [phone] Joel Link MD [facility] [address] [place] [address] 01/18/2025 10:15 AM EDT Office Visit Dermatology at [address] [phone] Mathew Fernando MD [address] [place] [address] [place] [address] documented as of this encounter Visit Diagnoses Not on filedocumented in this encounter Care Teams Botany Technician Relationship Specialty Start Date End Date Blanco Myles MD [address] [place] [address] PCP - General Family Medicine 03/20/23 documented as of this encounter
--- OUTSIDE RECORDS SUMMARY | 2024-06-30 12:27 | XMS_ITS | Encounter Summary ---
Author Organization [facility] [place] [address] Care Team Providers Care Executive Secretary Social Welfare Name Role Phone Blanco Myles MD Primary Care Provider [phone] Encounter Details Date Type Department Care Team (Latest Contact Info) Description 06/03/2023 10:00 AM EDT Ext Surgery or Single Event [address] [phone] Joel Link MD [facility] [place] [address] PAF (paroxysmal atrial fibrillation) Social History Tobacco [...] Note Patient Name: Tra Brothers III : [id number] Date of Procedure: 06/03/2023 Time of Procedure: [...] 3:00 PM EST Office Visit Cardiology at [address] [phone] Joel Link MD [facility] [address] 01/18/2025 10:15 AM EDT Office Visit Dermatology at [address] [phone] Mathew Fernando MD [address] [facility] [place] [address] documented as of this encounter Procedures Procedure [...] fibrillation documented in this encounter Care Teams Executive Secretary Social Welfare Relationship Specialty Start Date End Date Blanco Myles MD [address] [place] [address] PCP - General Family Medicine 03/20/23 documented as of this encounter
--- OUTSIDE RECORDS SUMMARY | 2024-06-30 12:27 | XMS_ITS | Clinical Summary ---
Author Organization [facility] Address [facility] [place] [address] Care Team Providers Care Extractor Filler Name Role Phone Blanco Myles MD Primary Care Provider [phone] Allergies Active Allergy Reactions Criticality Noted Date Comments Oxycodone Nausea Only Medium 02/11/2017 Other reaction(s): Nausea Pollen Extracts 11/18/2017 Medications Medication Sig Dispensed Refills Start Date End Date Status multivitamin (THERAGRAN) Tablet Take 1 tablet by mouth daily. Active cholecalciferol, Vitamin D3, 50 mcg (2,000 unit) Capsule Take 1 capsule by mouth daily. Active polyethylene glycol (MIRALAX) 17 gram Powder in Packet Take 17 g by mouth daily as needed. 01/14/2018 Active atorvastatin (Lipitor) 80 mg Tablet Take 80 mg by mouth every evening. 05/31/2020 Active fluticasone propionate (FLONASE) 50 mcg/actuation [place], Suspension 2 sprays by Each Nare route daily as needed. 03/11/2020 Active nitroGLYcerin (Nitrostat) 0.4 mg Tablet, SublingualIndications :Coronary artery disease involving [place] coronary artery of [place] heart without angina pectoris Place 1 tablet [...] 0.4 mg by mouth nightly. 12/17/2022 Active doxepin (SINEquan) 10 mg capsule Take 20 mg by mouth nightly. 06/13/2023 Active dabigatran (Pradaxa) 150 mg capsule Take 1 capsule by mouth 2 times daily. 01/05/2024 Active valsartan (Diovan) 160 mg tablet Take 1 tablet by mouth Daily at Noon. 12/12/2023 Active albuteroL 90 mcg/actuation inhaler (HFA) INHALE 2 PUFFS BY MOUTH FOUR TIMES A DAY 03/14/2024 Active Advair HFA 230-21 mcg/actuation inhaler (HFA) Inhale 2 puffs into the lungs 2 times daily. 03/11/2024 Active buPROPion SR (Wellbutrin SR) 200 mg SR 12 hr tablet Take 200 mg by mouth 2 times daily. Active aspirin EC 81 mg EC (DR) tablet Take 81 mg by mouth daily. Active Active Problems Problem Noted Date Diagnosed Date PAF (paroxysmal atrial fibrillation) 09/10/2022 Overview (07/17/2023): 08/2022: Dx tay-operative knee surgery. 05/2023: DCCV (1 @ 150). Acutely successful 06/2023 Holter (palpitations): nsr, normal rate. Occasional PVC (1.4%). no significant arrhythmia. No symptoms Assessment & Plan (04/08/2024 5:42 PM EDT): NO symptoms attributable - Strategy: paroxysmal rate. Continue toprol 25 - OAC: pradaxa - Reversible Causes: none identified Assessment & Plan (06/27/2023 8:24 AM EST): [...] acebutolol 200mg BID Cardiomyopathy, ischemic 04/06/2019 Overview (04/05/2024): 11/2017: Preserved EF (64%), with lateral HK. 04/2019: EF 64%, no wmas 06/2022: EF 45-50%, no regional wmas. Mod MR 04/2023 TTE: normalized LV function. Unremarkable study aside from persistent rate controlled afib 11/2023 TTE ([facility], at time of CVA)): unchanged from prior Assessment & Plan (04/08/2024 5:42 PM EDT): No failure by exam. - Diuresis: lasix 20 qd - Cardioprotection: valsartan 160, toprol - Devices: none indicated Assessment & Plan (06/27/2023 8:23 AM EST): [...] nor exam. Will obtain echo report from [facility] from 06/2022 - Diuresis: none - [...] 12/30/2017 ASCVD (arteriosclerotic cardiovascular disease) 11/18/2017 Overview (04/05/2024): 11/2017 (NSTE-ACS): mild diffuse LM and RCA, 75% mid LAD-> JENNI, 95% prox OM1-> JENNI. 06/2023 RxNST (dyspnea): no ischemia/infarct Assessment & Plan (04/08/2024 5:41 PM EDT): No angina per history - Anti-Thrombosis: pradaxa - Statin: lipitor 80 - Anti-anginals: GTN PRN. Toprol Assessment & Plan (06/27/2023 8:22 AM EST): [...] index finger 02/20/2021 01/23/2022 Stented coronary artery 09/29/201910/2019 Combined forms of age-relate d cataract of both eyes 09/09/2019 01/22/2022 Overview (01/11/2021): Added automatically from request for surgery [id number] Added automatically from request for surgery [id number] Acute blood loss anemia 01/13/2018 0502/2021 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 01/07/2018 01/11/2021 NSTEMI (non-ST elevated myoc ardial infarction) 11/18/2017 12/30/2017 History of SCC (squamous garrett l carcinoma) of skin 03/06/2017 06/07/2019 History of basal cell carcinoma 02/11/2017 06/07/2019 AK (actinic keratosis) 02/11/201707/20 Encounters Date Type Department Care Team Description 04/05/2024 3:00 PM EDT Office Visit Cardiology at [address] [place] [address] Joel Link MD Cardiomyopathy, ischemic; ASCVD (arteriosclerotic cardiovascular disease); PAF (paroxysmal atrial fibrillation) 04/05/2024 Travel from Last 3 Months Family History Medical [...] Pulse 86 04/05/2024 3:11 PM EDT Temperature 37 ??C (98.6 ??F) 11/20/2017 7:47 AM EDT Respiratory Rate 12 04/01/2018 9:33 AM EDT Oxygen Saturation 100% 11/20/2017 7:47 AM EDT Inhaled Oxygen Concentration - - Weight 86.2 kg (190 lb) 04/05/2024 3:11 PM EDT Height 180.3 cm (5' 11) 04/05/2024 3:11 PM EDT Body Mass Index 26.5 04/05/2024 3:11 PM EDT Plan of Treatment Upcoming Encounters Date Type Department Care Team (Late st Contact Info) Description 10/07/2024 3:00 PM EST Office Visit Cardiology at [address] [place] [address] Joel Link MD [facility] [place] [address] 01/18/2025 10:15 AM EDT Office Visit Dermatology at [address] [phone] Mathew Fernando MD [address] [place] [address], [facility] [place] [address] Health Maintenance Due Date Last Done Comments Pneumoccocal Vaccine: 65+ (1 of 2 - PCV) 12/06/1946 Tetanus/Diphtheria/Pertussis Vaccines (1 - Tdap) 12/06 Zoster vaccine (1 of 2) 12/06/1989 Advance Directive 12/06/1994 Covid-19 Vaccine (1 - 2023- season) 2024 Influenza (Flu) vaccine (1 o f 1 - Influenza standard series) 04/18/2024 Advance Directives Documents on File Type Date Recorded 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
--- OUTSIDE RECORDS SUMMARY | 2024-06-30 12:27 | XMS_ITS | Encounter Summary ---
Author Organization [facility] Address [facility] [place] [address] Care Team Providers Care Site Operations Manager Name Role Phone Blanco Myles MD Primary Care Provider [phone] Reason for Visit * Reason Comments Atrial Fibrillation Coronary Artery Disease Encounter Details Date Type Department Care Team (Latest Contact Info) Description 06/19/2023 1:00 PM EDT Office Visit Cardiology at [address] [phone] Joel Link MD [facility] [place] [address] Cardiomyopathy, ischemic; PAF (paroxysmal atrial fibrillation); Palpitations; [...] 3 cycles fluticasone propionate (FLONASE) 50 mcg/actuation [place], Suspension 2 sprays, Each Nare, DAILY PRN [...] 3:00 PM EST Office Visit Cardiology at [address] [address] Joel Link MD [facility] [place] [place] [address] 01/18/2025 10:15 AM EDT Office Visit Dermatology at [address] [address] Mathew Fernando MD [address] [place] [address], [facility] [place], [place] [phone] documented as of this encounter Visit Diagnoses Diagnosis Cardiomyopathy, ischemic Other specified forms of chronic ischemic heart disease PAF (paroxysmal atrial fibrillation) Atrial fibrillation Palpitations Dyspnea, unspecified type ASCVD (arteriosclerotic cardiovascular disease) Unspecified cardiovascular disease documented in this encounter Care Teams Site Operations Manager Relationship Specialty Start Date End Date Blanco Myles MD [address] [place] [address] PCP - General Family Medicine 03/20/23 documented as of this encounter
--- OUTSIDE RECORDS SUMMARY | 2024-06-30 12:27 | XMS_ITS | Encounter Summary ---
Author Organization [facility] [place] [address] Care Team Providers Care Wholesaler Name Role Phone Blanco Myles MD Primary Care Provider [phone] Encounter Details Date Type Department Care Team (Latest Contact Info) Description 04/05/2024 Travel Social History Tobacco Use Types Packs/Day [...] 3:00 PM EST Office Visit Cardiology at [address] [phone] Joel Link MD [facility] [address] [place] [address] 01/18/2025 10:15 AM EDT Office Visit Dermatology at [address] [address] Mathew Fernando MD [address] [place] [address] [place] [address] documented as of this encounter Visit Diagnoses Not on filedocumented in this encounter Care Teams Wholesaler Relationship Specialty Start Date End Date Blanco Myles MD [address] [place] [address] PCP - General Family Medicine 03/20/23 documented as of this encounter
--- OUTSIDE RECORDS SUMMARY | 2024-06-30 12:27 | XMS_ITS | Encounter Summary ---
[place] [address] Care Team Providers Care Powdered Sugar Pulverizer Operator Name Role Phone Blanco Myles MD Primary Care Provider [phone] Encounter Details Date Type Department Care Team (Late st Contact Info) Description 01/26/2024 Telephone Dermatology at [address] [address] Marlyn Dean RN Social History [...] PM EST Office Visit Cardiology at [address] [place] [phone] Joel Link MD [facility] [place] [address] 01/18/2025 10:15 AM EDT Office Visit Dermatology at [address] [place] [phone] Mathew Fernando MD [address] [facility] DERMATOLOGY [place], [place] [address] documented as of this encounter Visit Diagnoses Not on filedocumented in this encounter Care Teams Powdered Sugar Pulverizer Operator Relationship Specialty Start Date End Date Blanco Myles MD [address] [place] [address] PCP - General Family Medicine 03/20/23 documented as of this encounter
--- OUTSIDE RECORDS SUMMARY | 2024-06-30 12:27 | XMS_ITS ---
Author Organization Unknown Address [address] [place] [phone] Phone Care Team Providers Care Lead Pourer Name Role Phone CRAIG Randle Attending Unavailable ADOLFO Randle Primary Unavailable Immunization Immunization Date Status Additional Notes Code Code System COVID-19, mRNA, LNP-S, PF, 1 00 mcg/0.5mL dose or 50 mcg/0.25mL dose 09/19/2020 Completed 207 CVX COVID-19, mRNA, LNP-S, PF, 1 00 mcg/0.5mL dose or 50 mcg/0.25mL dose 10/17/2020 Completed 207 CVX Results XR ANKLE LT 3V* - Completed: 06/10/2022 13:26 [facility]: [place], [place] [address] PACS PRIOR AUTHORIZATION NURSE REPORT Patient Name: SAMI MOODY MRN: Sex: : Age: [id number] M [id number] Account: Accession: Admit: StayType: [id number] 06/10/2022 CLINIC Ordered: Order ID: Entered Order: Ordering Provider: 06/10/2022 13:14 [id number] SALOMON HARRIS Completed: Tech Completed: Resulted DTTM: [...] 3V LT* - Completed: 06/10/2022 13:26 LOINC: [facility] [place], [place] [address] PACS PRIOR AUTHORIZATION NURSE REPORT Patient Name: SAMI MOODY MRN: Sex: : Age: [id number] M [id number] Account: Accession: Admit: StayType: [id number] 06/10/2022 CLINIC Ordered: Order ID: Entered Order: Ordering Provider: 06/10/2022 13:14 [id number] SALOMON HARRIS Completed: Tech Completed: Resulted DTTM: [...] Code Syst em Smoking History Former smoker 08/18/19954347 4726225 SNOMED CT Sex Male Medications Medication Start Date End Date Route Frequency Dose Code Code System Medication Instructions Home Meds Androderm 4MG/24HR Transdermal Patch, Extended Release 09/25/2021 Unknown TRANSDERMAL BEDTIME 1 TRANSDERMAL PATCH 1735490 RxNorm APPLY 1 TRANSDERMAL PATCH TRANSDERMAL BEDTIME Aspir 81 81MG Oral Tablet, Enteric Coated 09/25/2021 Unknown ORAL DAILY 81 MILLIGRAMS RxNorm TAKE 81 MILLIGRAMS ORAL DAILY Atorvastatin Calcium 80MG Oral Tablet 09/25/2021 Unknown ORAL BEDTIME 80 MILLIGRAMS 987378 RxNorm TAKE 80 MILLIGRAMS ORAL BEDTIME Calcium 600 MG Oral Tablet 09/25/2021 Unknown ORAL DAILY 600 MG 464420 RxNorm TAKE 600 MG ORAL DAILY Temazepam [...] Unknown ORAL TWICE A DAY 150 MILLIGRAMS 1346621 RxNorm TAKE 150 MILLIGRAMS ORAL TWICE A DAY Valsartan 160MG Oral Tablet 09/26/2021 Unknown ORAL DAILY 160 MILLIGRAMS 370534 RxNorm TAKE 1 TABLET BY MOUTH DAILY [...] arthrodesi s, deltoid ligament reconstruc tion 09/17 6304747 9 01/15/2026 Arthre x(R) AR-1319 FT Bone matrix implant, synthetic, non-antimi crobial 0110 8594 7700 2140 1121 1220 1723 0430 1017 2247 8 Active FDA left foot triple arthrodesi s, poss deltoid ligament reconsttru ction 09/17 1177218 08/06/2021 12/15/2022 AUGMEN T(R) Inject able [id number] 10 +M53 6276 1501 51/$ $526 2702 0524 9120 3F Active FDA left foot triple arthrodesi s, possible deltoid ligament reconstruc tion 09/17 6169443 20305/14/2026 Cancel lous Chips 4-9.5m m 15 cc Allergies and Adverse Reactions Allergy Substance Reaction Severity Start Date Concern Status Co de Code System OXYCODONE NAUSEA (SNOMED-CT: 245445437), Nausea (SNOMED-CT: 198827317) Mild Active 7804 RxNorm Plan of Treatment PRE-OP COVID-19 TESTING 09/14/2021 MRI LOWER EXT W/O CONTRAST 07/17/2021 Encounters Encounter Diagnosis Start Date Code Code Sys tem Arthrodesis 06/10/2022 13245945 SNOMED-CT Personal Care Team Section Performer Name Performer Role Active Date Inactive Da te
--- NOTE | 2024-06-30 12:28 | ED.GENADUL_ITS ---
Discharge Plan Disposition Patient Disposition: Home Condition: Good Discharge Details Clinical Impression: A-fib, Dehydration, Elevated INR Primary Care Provider: Blanco Myles ED Provider: Willie Sotomayor Home Meds and New Rx's Prescriptions: No Action tamsulosin 0.4 mg capsule 0.4 mg PO DAILY potassium chloride 20 mEq tablet extended release 20 meq PO DAILY PreserVision AREDS 2,148 mcg-113 mg-45 mg-17.4mg tablet 1 tab PO BID Rx Instructions: administer with AM and PM meals doxepin 10 mg capsule 40 mg PO DAILY dabigatran etexilate [Pradaxa] 75 mg capsule 150 mg PO BID Qty: 180 3RF metoprolol succinate 25 mg tablet extended release 24 hr 25 mg PO DAILY albuterol sulfate 90 mcg/actuation aerosol powdr breath activated 2 inh inhalation Q6H PRN vitamin B complex Tablet 1 tab PO DAILY albuterol sulfate 90 mcg/actuation HFA aerosol inhaler 2 puff inhalation QID Qty: 8.5 12RF bupropion HCl 150 MG tablet extended release 12 hr 200 mg PO BID multivitamin 1 EACH capsule 1 tab PO DAILY atorvastatin 80 mg Tablet 80 mg PO .Q PM nitroglycerin 0.4 MG tablet, sublingual 1 tab PO PRN PRN Patient Comments: pt using when doing something strenous cholecalciferol (vitamin D3) [Vitamin D3] 25 mcg (1,000 unit) Tablet 25 mcg PO DAILY fluticasone propionate 50 mcg/actuation spray,suspension 1 spray INTRANASAL BID PRN Rx Instructions: administer into each nostril acetaminophen 500 mg tablet 1,000 mg PO Q8H PRN Qty: 90 0RF Rx Instructions: Take two tablets up to every 8 hours as needed for pain aspirin [Children's Aspirin] 81 mg Tablet,Chewable 81 mg PO DAILY Qty: 90 0RF pantoprazole 40 mg tablet,delayed release (DR/EC) 40 mg PO DAILY Patient Comments: TAKE ONE TABLET BY MOUTH EVERY DAY, TAKE NEAR DINNERTIME valsartan 320 mg tablet 160 mg PO DAILY Patient Comments: TAKE ONE-HALF TABLET BY MOUTH EVERY DAY Discharge Instructions Instructions: Atrial fibrillation Additional Instructions: At this time your heart rate has remained stable, however I do suspect that you are mildly dehydrated from the extra water pills that you are taking. Please follow-up closely with your primary care provider for recheck on your renal function and hemoglobin level. Please stay well-hydrated over the next 24 to 48 hours. Do not take any additional furosemide aside for your normal daily dosings. Additionally your blood thinness levels were higher than would be expected. Please hold your Pradaxa for the next 24 hours. You can then restart it but follow-up closely with your family doctor for recheck of your blood levels. If you notice any worsening of your symptoms, or any new symptoms such as vomiting, diarrhea, fever, chills, shortness of breath, chest pain, numbness, weakness, or fainting , please return immediately to the emergency department for reevaluation. Please follow up with your primary care provider as soon as possible for reassessment and reevaluation. As always, it was a pleasure participating in your medical care today. HPI General Date/Time Provider Initiated Documentation: 06/30/24 12:07 . HPI Narrative: 83-year-old male with a past medical history of 2 previous cardiac stents, stroke, atrial fibrillation on Pradaxa, hypertension, interstitial lung disease, arthritis, on chronic metoprolol presents today for evaluation of elevated heart rate. Patient has had a history of A-fib with RVR in the past which is required admission and interventions. Patient states that last night his blood pressure was noted to be little low. They did not give his nightly valsartan. That evening the patient felt his heart rate increasing and felt lightheaded. This began occurred today shortly after getting up between 10 and 11 AM. He had taken his morning medications at 8 AM already though. Between 10 and 11 AM he felt lightheaded if he got up or move around, felt like he would pass out if he moved too much and felt palpitations that felt similar to his previous episodes of A-fib. He denied any chest pain. He denied actual syncope. He denies any vomiting or diarrhea. No significant medication change. Symptoms improved, and he states that by the time he got here to the ER at around noon his symptoms had essentially resolved and he felt much better. No other complaints at this time. No other modifying factors. Related Data Home Medications ?Medication ?Instructions ?Recorded ?Confirmed bupropion HCl 150 mg tablet,12 hr 200 mg PO BID 11/18/17 06/30/24 sustained-release multivitamin 1 tab PO DAILY 11/18/17 06/30/24 nitroglycerin 0.4 mg sublingual 1 tab PO PRN PRN 01/07/18 06/30/24 tablet atorvastatin 80 mg tablet 80 mg PO .Q PM 05/31/19 06/30/24 cholecalciferol (vitamin D3) 25 25 mcg PO DAILY 08/07/21 06/30/24 mcg (1,000 unit) tablet (Vitamin D3) acetaminophen 500 mg tablet 1,000 mg (2 x 500 mg) PO Q8H PRN 09/30/22 06/30/24 pain #90 tabs tamsulosin 0.4 mg capsule 0.4 mg PO DAILY 12/27/22 06/30/24 vitamins A,C,V-wirp-ypoqys 2,148 1 tab PO BID 06/16/23 06/30/24 mcg-113 mg-45 mg-17.4 mg tablet (PreserVision AREDS) potassium chloride 20 mEq 20 meq PO DAILY 09/18/23 06/30/24 tablet,extended release aspirin 81 mg chewable tablet 81 mg PO DAILY #90 tabs 12/04/23 06/30/24 (Children's Aspirin) dabigatran etexilate 75 mg capsule 150 mg (2 x 75 mg) PO BID #180 caps 12/30/23 06/30/24 (Pradaxa) doxepin 10 mg capsule 40 mg PO DAILY 12/30/23 06/30/24 albuterol sulfate 90 mcg/actuation 2 puff inhalation QID #8.5 grams 02/09/24 06/30/24 aerosol inhaler albuterol sulfate 90 mcg/actuation 2 inh inhalation Q6H PRN 02/09/24 06/30/24 breath activated powder inhaler fluticasone propionate 50 1 spray intranasal BID PRN 02/09/24 06/30/24 mcg/actuation nasal spray,suspension metoprolol succinate 25 mg 25 mg PO DAILY 02/09/24 06/30/24 tablet,extended release 24 hr vitamin B complex 1 tab PO DAILY 02/09/24 06/30/24 pantoprazole 40 mg tablet,delayed 40 mg PO DAILY 06/30/24 06/30/24 release valsartan 320 mg tablet 160 mg PO DAILY 06/30/24 06/30/24 Previous Rx's ?Medication ?Instructions ?Recorded acetaminophen 500 mg tablet 1,000 mg (2 x 500 mg) PO Q8H PRN 09/30/22 pain #90 tabs aspirin 81 mg chewable tablet 81 mg PO DAILY #90 tabs 12/04/23 (Children's Aspirin) dabigatran etexilate 75 mg capsule 150 mg (2 x 75 mg) PO BID #180 caps 12/30/23 (Pradaxa) albuterol sulfate 90 mcg/actuation 2 puff inhalation QID #8.5 grams 02/09/24 aerosol inhaler Allergies Allergy/AdvReac Type Severity Reaction Status Date / Time terazosin Allergy Severe Unknown Verified 06/30/24 12:19 oxycodone AdvReac Intermediate Nausea Verified 06/30/24 12:19 pollen AdvReac Intermediate sneezing, Uncoded 06/30/24 12:19 congestion General Stated Complaint: GenMedical JAMEE: 2 Review of Systems All systems reviewed & are unremarkable except as noted in HPI and below Exam Narrative Exam Narrative: 1.Const: Well-nourished, Well-developed, appearing stated age 2.Eyes: PERRL, no conjunctival injection, and symmetrical lids. 3.ENT: Atraumatic external nose and ears. Dry MM. Neck: Symmetric, trachea midline, No thyromegaly. 4.CVS: +S1/S2, Peripheral pulses 2+ and equal in all extremities. Brisk capillary refill in all extremities. 5.RESP: Unlabored respiratory effort. Clear to auscultation bilaterally. No wheezes rales or rhonchi 6.GI: Soft, Nontender/Nondistended, No hepatosplenomegaly. No guarding or rebound. 7.MSK: Normocephalic/Atraumatic, Extremities w/o deformity or ttp No cyanosis or clubbing, Normal movement of all extremities. No significant pitting edema in the lower extremities. 8.Skin: Warm, Dry. No rashes or lesions. 9.Neuro: metal plater II-XII grossly intact. Sensation grossly intact, no focal neurologic deficits. 10.Psych: (AAO) x3. Appropriate mood and affect Course Vital Signs Vital signs: Vital Signs Pulse 96 H 06/30/24 12:03 Respiratory Rate 20 06/30/24 12:03 Blood Pressure 123/85 06/30/24 12:03 Pulse Oximetry 98 06/30/24 12:03 Temperature 36.9 C 06/30/24 12:20 Temperature Source Oral 06/30/24 12:20 Pulse 96 H 06/30/24 12:20 Respiratory Rate 20 06/30/24 12:20 Respiratory Effort Normal 06/30/24 12:24 Respiratory Depth Normal 06/30/24 12:24 Respiratory Pattern Normal 06/30/24 12:24 Blood Pressure 123/85 06/30/24 12:20 Blood Pressure Mean 92 06/30/24 12:07 Blood Pressure Position Sitting 06/30/24 12:20 Pulse Oximetry 98 06/30/24 12:20 Oxygen Delivery Method Nasal Cannula 06/30/24 12:20 Oxygen Flow Rate 2 06/30/24 12:20 Pain Level 0 06/30/24 12:20 Medical Decision Making 83-year-old male with a past medical history of 2 previous cardiac stents, stroke, atrial fibrillation on Pradaxa, hypertension, interstitial lung disease, arthritis, on chronic metoprolol presents today for evaluation of elevated heart rate. Patient has had a history of A-fib with RVR in the past which is required admission and interventions. Patient states that last night his blood pressure was noted to be little low. They did not give his nightly valsartan. That evening the patient felt his heart rate increasing and felt lightheaded. This began occurred today shortly after getting up between 10 and 11 AM. He had taken his morning medications at 8 AM already though. Between 10 and 11 AM he felt lightheaded if he got up or move around, felt like he would pass out if he moved too much and felt palpitations that felt similar to his previous episodes of A-fib. He denied any chest pain. He denied actual syncope. He denies any vomiting or diarrhea. No significant medication change. Symptoms improved, and he states that by the time he got here to the ER at around noon his symptoms had essentially resolved and he felt much better. No other complaints at this time. No other modifying factors. Additionally the patient states that last week he was taking a few extra of his water pill than normal. Physical exam demonstrates dry mucous membranes, no significant peripheral edema in lower extremities. Heart rate now has notably improved to the low 100s. Blood pressure stable. Will evaluate for electrolyte abnormality, renal dysfunction, or cardiac aggravation. 2:42 PM Laboratory workup is returned, patient does have a point drop in the hemoglobin to 8.9, platelets are reasonable. PT PTT and INR all elevated, which can be found in Pradaxa, but they are higher than expected. INR is 5.3, PTT 45.9, and PTT 70. Electrolytes normal, creatinine has had a mild jump to 2.0 with a GFR 32. I suspect a component of this may be reflective of the extra diuretics he had been taking. proBNP slightly higher than normal at 5400, however patient's symptoms are clinically inconsistent with significant CHF exacerbation. TSH slightly high, but free T4 normal. Chest x-ray is unremarkable. Patient's heart rate has remained notably stable. He has been taking oral p.o. well. No evidence of A-fib with RVR. Patient clinically feels well, and feels stable to go home. With the increase in the PT PTT and INR, I do feel that this is slightly atypical, potentially worse to his BUN/creatinine, however Pradaxa is normally mostly metabolized hepatically. Will recommend holding the Pradaxa for 12 to 24 hours. Recommend close follow-up with PCP for recheck. Patient denies any dark or tarry stools. No hemoptysis. No upset stomach. Symptoms inconsist ent with significant bleed. Suspect dehydration and mild overdiuresis to be a contributing factor to his symptomatology today. Otherwise patient stable with no indication for additional med addition at this time. Patient will be discharged home. Discussed red flags which to return. I have extensively reviewed the treatment plan and discharge instructions with the patient. I have addressed all patient concerns at this time. The patient was made aware of what symptoms to monitor for that would warrant a return to the emergency department. Discussed the plan with the patient, they demonstrate verbal understanding and agreement with our assessment and plan at this time. The documentation in this chart was dictated using [employer] dictation software. Please excuse any dictation errors. FINDINGS: LUNGS: Clear. No evidence of CHF. No pleural abnormality seen. HEART: Normal size. AORTA: Tortuous and calcified. BONES: Old left rib fractures. Soft tissues: Unremarkable. IMPRESSION: No acute findings. Quality:SDOH Health Related Social Needs: No Data to Display PFSH All Active Problems Elevated INR (Acute) Dehydration (Acute) A-fib (Chronic) ILD (interstitial lung disease) (Acute) Hypoxic respiratory failure (Acute) Dyspnea on exertion (Acute) CKD (chronic kidney disease) stage 3, GFR 30-59 ml/min (Acute) Cerebral aneurysm (Acute) HTN (hypertension) (Chronic) CVA (cerebral vascular accident) (Chronic) Left arm weakness (Acute) Left rotator cuff tear arthropathy (Acute) Atrial fibrillation (Chronic) Bigeminal rhythm (Acute) Depression (Chronic) DVT prophylaxis (Acute) Advance directive discussed with patient (Acute) De Quervain's tenosynovitis, left (Acute) Steroid injection: 06/26/2020, 02/21/2021 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 (Acute) Laceration of left index finger (Acute) Fracture of distal phalanx of left index finger (Acute) De Quervain's tenosynovitis, right (Acute) Injection: 06/13/2021; 01/24/2021 Pes planus of left foot (Acute) Biceps tendinitis of left upper extremity (Acute) Bursitis of shoulder, left (Acute) Hyponatremia (Chronic) Anemia (Chronic) Contusion of leg, right (Acute) Medical History Palliative care patient Rupture of left quadriceps muscle s/p repair of left quad/retinacular repair x2 DOS: 09/25/22; 09/10/22 Chronic cough CHF (congestive heart failure) Hx of sinusitis 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 Hypertension HLD (hyperlipidemia) Hyperpiesia Bilateral carotid artery stenosis Cardiomyopathy Heart palpitations None recently (05/28/22) CAD (coronary artery disease) HTN (hypertension) with goal to be determined CKD (chronic kidney disease) History of non-ST elevation myocardial infarction (NSTEMI) November 2017 Surgical History 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/22) Hx of total knee arthroplasty LEFT S/P tendon repair 09/15/22 Hx of rhinoplasty Status post left foot surgery (09/17/21) [facility] Status post laparoscopic cholecystectomy (~01/2022) History of heart artery stent Hx of cataract surgery S/P ORIF (open reduction internal fixation) fracture Right distal femur fracture History of revision of total replacement of right knee joint Right TKA - [place] (2003) Two-stage revision for infection -[place] (2008) Social History Smoking/Tobacco Use Status: Former Tobacco Use Quit Date: 08/18/91 Smoking risk assessment performed?: Yes Alcohol Intake: former Drug use: Never Substance use type: does not use Housing: house Do you feel safe at home: Yes Do you feel safe in your relationship?: Yes
--- OUTSIDE RECORDS SUMMARY | 2024-06-30 12:28 | XMS_ITS | Encounter Summary ---
Author Organization [facility] [address] Care Team Providers Care Automotive General Sales Manager Name Role Phone Karo Otero MD Primary Care Provider [phone] Reason for Visit * Reason Comments Dizziness Encounter Details Date Type Department Care Team (Late st Contact Info) Description 06/19/2020 7:00 PM EST Ext Surgery or Single Event Cardiology at [address] [phone] Joel Link MD [facility] [place] [address] Dizziness Social History Tobacco Use Types Packs/Day [...] 3:00 PM EST Office Visit Cardiology at [address] [phone] Joel Link MD [facility] [place] [address] 01/18/2025 10:15 AM EDT Office Visit Dermatology at [address] [place] [phone] Mathew Fernando MD [address], [place] [address] documented as of this encounter Procedures Procedure Name Priority Date/Time Associated Diagnosis Comments HOLTER MONITOR 48 HOUR Routine 06/20/2020 Dizziness CUSTOMS COLLECTOR SCAN 05/19/2020 12:00 AM EDT documented in this encounter Results * Holter Monitor 48hr (06/20/2020) Anatomical Region Laterality Modality Other Narrative 06/20/2020 Location: ??[facility] Referring: Nikolay Indication: ??lightheadedness Duration of recording [...] CARDIAC SERVICES ORD ERABLES * SCAN DOC: CUSTOMS COLLECTOR (05/19/2020 12:00 AM EDT) Anatomical Region Laterality Modality Other Narrative 05/19/2020 12:00 AM EDT Ordered by an unspecified provider. Scanning Provider MEDIA MGR SCAN EXT O RDR/RSLT documented in this encounter Visit Diagnoses Diagnosis Dizziness Dizziness and giddiness documented in this encounter Care Teams Automotive General Sales Manager Relationship Specialty Start Date End Date Karo Otero MD [address] [place] [address] PCP - General Family Medicine 02/11/17 03/19/23 documented as of this encounter
--- OUTSIDE RECORDS SUMMARY | 2024-06-30 12:28 | XMS_ITS | Encounter Summary ---
Author Organization [facility] [place] [address] Care Team Providers Care Envelope Machine Operator Name Role Phone Blanco Myles MD Primary Care Provider [phone] Encounter Details Date Type Department Care Team (Late st Contact Info) Description 03/31/2023 Telephone Cardiology at [address] [place] [address] Joel Link MD [facility] [place] [address] Social History Tobacco Use Types Packs/Day Years [...] 8:28 AM EDT Spoke to scheduling at [facility] and an echo can be done at [facility] the first week of April if he would like to have it done in [place]. Patient called and does request echo order to be sent to [facility], he is aware the scheduling departmentwill contact him. * Telephone Encounter - Xochitl Osborn - 03/31/2023 8:13 AM EDT Patient called because he was ordered an echo and court monitor to be done at [facility]. The court monitor is being put on today but they cannot schedule the echo until June 11. He would like to know if he can get it done sooner here at [facility] or if Dr Link could do it sooner at ? Please call him @ [phone] documented in this encounter Plan of Treatment Upcoming Encounters Date Type Department Care Team (Late st Contact Info) Description 10/07/2024 3:00 PM EST Office Visit Cardiology at [address] [phone] Joel Link MD [facility] [place] [address] 01/18/2025 10:15 AM EDT Office Visit Dermatology at [address] [place] [phone] Mathew Fernando MD [address] [place] [address], [facility] [place] [address] documented as of this encounter Visit Diagnoses Not on filedocumented in this encounter Care Teams Envelope Machine Operator Relationship Specialty Start Date End Date Blanco Myles MD [address] [place] [address] PCP - General Family Medicine 03/20/23 documented as of this encounter
--- OUTSIDE RECORDS SUMMARY | 2024-06-30 12:28 | XMS_ITS | Encounter Summary ---
Author Organization [facility] [place] [address] Care Team Providers Care Supervisor Frame Sample And Pattern Name Role Phone Karo Otero MD Primary Care Provider [phone] Reason for Visit * Reason Comments Coronary Artery Disease Ventricular Arrhythmia Ventricular Bigem iny Encounter Details Date Type Department Care Team (Latest Contact Info) Description 01/22/2022 10:00 AM EDT Office Visit Cardiology at [address] [phone] Joel Link MD [facility] [place] [address] Coronary artery disease involving [place] coronary artery of [place] heart without angina pectoris; ASCVD (arteriosclerotic cardiovascular [...] Rfl: ??? 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
--- OUTSIDE RECORDS SUMMARY | 2024-06-30 12:28 | XMS_ITS | Encounter Summary ---
[place] [address] Care Team Providers Care Chemical Technician Name Role Phone Karo Otero MD Primary Care Provider Reason for Visit * Reason Comments Skin Check Encounter Details Date Type Department Care Team (Late st Contact Info) Description 08/31/2020 10:00 AM EST Office Visit Dermatology at [address] [phone] Mathew Fernando MD [address] [facility] [place] [address] History of SCC (squamous cell carcinoma) of [...] right upper back treated in [place] 4. 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 Assessment plan: Apparent recurrence of [...] 3:00 PM EST Office Visit Cardiology at [address] [phone] Joel Link MD [facility] [place] [address] 01/18/2025 10:15 AM EDT Office Visit Dermatology at [address] [phone] Mathew Fernando MD [address] [place] [address], REPLACED BY [facility] [place] [address] documented as of this encounter Visit Diagnoses Diagnosis History of SCC (squamous cell carcinoma) of skin Personal history of other malignant neoplasm of skin History of basal cell carcinoma Personal history of other malignant neoplasm of skin AK (actinic keratosis) Actinic keratosis documented in this encounter Care Teams Chemical Technician Relationship Specialty Start Date End Date Karo Otero MD [address] [place] [address] PCP - General Family Medicine 02/11/17 03/19/23 documented as of this encounter
--- OUTSIDE RECORDS SUMMARY | 2024-06-30 12:28 | XMS_ITS | Encounter Summary ---
Author Organization [facility] [place] [address] Care Team Providers Care Sandal Parts Assembler Name Role Phone Karo Otero MD Primary Care Provider [phone] Encounter Details Date Type Department Care Team (Late st Contact Info) Description 07/06/2022 External [place] [address] Social History Tobacco Use Types Packs/Day Years [...] 3:00 PM EST Office Visit Cardiology at [address] [phone] Joel Link MD [facility] [place] [address] 01/18/2025 10:15 AM EDT Office Visit Dermatology at [address] [phone] Mathew Fernando MD [address] [place] [address], [facility] [place] [address] documented as of this encounter Procedures Procedure Name Priority Date/Time Associated Diagnosis Comments ECG SCAN Routine 07/06/2022 documented in this encounter Results * Scan Doc: ECG (07/06/2022) Historical Provider MD IBRAHIM MGR SCAN EX T ORDR/RSLT documented in this encounter Visit Diagnoses Not on filedocumented in this encounter Care Teams Sandal Parts Assembler Relationship Specialty Start Date End Date Karo Otero MD [address] [place] [address] PCP - General Family Medicine 02/11/17 03/19/23 documented as of this encounter
--- OUTSIDE RECORDS SUMMARY | 2024-06-30 12:28 | XMS_ITS | Encounter Summary ---
Author Organization [facility] Address [facility] [place] [address] Care Team Providers Care District Engineer Name Role Phone Blanco Myles MD Primary Care Provider [phone] Reason for Referral * Diagnostic Test (Routine) - Closed Specialty Diagnoses / Procedures Referred By Contac t Referred To Contact Cardiology Diagnoses Cardiomyopathy, ischemic Procedures Echocardiogram Transthoracic Joel Link MD [facility] [place] [address] [facility] OUT[facility] [address] [place] [address] [place] [address] Referral ID Status Reason Start Date Expiration Date V isits Requested Visits Authorized [id number] Closed Specialty Service Requested 03/20/2023 09/16/2023 1 1 Reason for Visit * Reason Comments Coronary Artery Disease Atrial Fibrillation Paroxysmal atrial fi brillation Encounter Details Date Type Department Care Team (Latest Contact Info) Description 03/20/2023 3:20 PM EDT Office Visit Cardiology at [address] [phone] Joel Link MD [facility] [place] [address] Cardiomyopathy, ischemic; ASCVD (arteriosclerotic cardiovascular disease); PAF [...] 3 cycles fluticasone propionate (FLONASE) 50 mcg/actuation [place], Suspension 2 sprays, Each Nare, DAILY PRN [...] 3:00 PM EST Office Visit Cardiology at [address] [phone] Joel Link MD [facility] [place] [address] 01/18/2025 10:15 AM EDT Office Visit Dermatology at [address] [phone] Mathew Fernando MD 580 [facility] DER[facility] [place], [place] [address] Scheduled Orders Name Type Priority Associated Diagnoses Order Schedule Echocardiogram Transthoracic Echocardiography Routine Cardiomyopathy, ischemic Expected: 03/20/2023, Expires: 09/19/2023 documented as of this encounter Visit Diagnoses Diagnosis Cardiomyopathy, ischemic Other specified forms of chronic ischemic heart disease ASCVD (arteriosclerotic cardiovascular disease) Unspecified cardiovascular disease PAF (paroxysmal atrial fibrillation) Atrial fibrillation documented in this encounter Care Teams District Engineer Relationship Specialty Start Date End Date Blanco Myles MD [address] [place] [address] PCP - General Family Medicine 03/20/23 documented as of this encounter
--- OUTSIDE RECORDS SUMMARY | 2024-06-30 12:28 | XMS_ITS | Encounter Summary ---
Author Organization [facility] Address [facility] [place] [address] Care Team Providers Care Voltmeter Operator Name Role Phone Karo Otero MD Primary Care Provider [phone] Reason for Visit * Reason Comments Coronary Artery Disease Cardiomyopathy Ventricular Arrhythmia on sectral Encounter Details Date Type Department Care Team (Late st Contact Info) Description 07/19/2020 10:20 AM EST Office Visit Cardiology at [address] [phone] Joel Link MD [facility] [place] [address] Ventricular bigeminy; Coronary artery disease involving [place] coronary artery of [place] heart without angina pectoris Social History Tobacco [...] Rfl: ??? fluticasone propionate (FLONASE) 50 mcg/actuation [place], Suspension, 2 sprays by Each Nare route [...] eyes Added automatically from request for surgery [id number] ??? Ventricular bigeminy ??? Cardiomyopathy, ischemic 11/2017: [...] 3 (moderate) ??? Coronary artery disease involving [place] coronary artery of [place] heart 11/2017: mild diffuse LM and RCA, [...] with holding sectral Coronary artery disease involving [place] coronary artery of [place] heart No angina per history. - Anti-Thrombosis: [...] 3:00 PM EST Office Visit Cardiology at [address] [phone] Joel Link MD [facility] [place] [address] 01/18/2025 10:15 AM EDT Office Visit Dermatology at [address] [phone] Mathew Fernando MD [address] [place] [address], [facility] [place] [address] documented as of this encounter Visit Diagnoses Diagnosis Ventricular bigeminy Other specified cardiac dysrhythmias Coronary artery disease involving [place] coronary artery of [place] heart without angina pectoris documented in this encounter Care Teams Voltmeter Operator Relationship Specialty Start Date End Date Karo Otero MD [address] [place] [address] PCP - General Family Medicine 02/11/17 03/19/23 documented as of this encounter
--- OUTSIDE RECORDS SUMMARY | 2024-06-30 12:28 | XMS_ITS | Encounter Summary ---
Author Organization [facility] [place] [address] Care Team Providers Care Skin Care Specialist Name Role Phone Karo Otero MD Primary Care Provider Encounter Details Date Type Department Care Team (Late st Contact Info) Description 08/03/2020 Telephone Cardiology at [address] [phone] Joel Link MD [facility] [address] [place] [address] Social History Tobacco Use Types Packs/Day Years [...] everything is fine. Please call him at [phone] documented in this encounter Plan of Treatment Upcoming Encounters Date Type Department Care Team (Late st Contact Info) Description 10/07/2024 3:00 PM EST Office Visit Cardiology at [address] [address] Joel Link MD [facility] [place] [address] 01/18/2025 10:15 AM EDT Office Visit Dermatology at [address] [place] [address] Mathew Fernando MD [address] [place] [address], [facility] [place] [address] documented as of this encounter Visit Diagnoses Not on filedocumented in this encounter Care Teams Skin Care Specialist Relationship Specialty Start Date End Date Karo Otero MD [address] [place] [address] PCP - General Family Medicine 02/11/17 03/19/23 documented as of this encounter
--- OUTSIDE RECORDS SUMMARY | 2024-06-30 12:28 | XMS_ITS | Encounter Summary ---
Author Organization [facility] [place] [address] Care Team Providers Care Senior Information Security Analyst Name Role Phone Karo Otero MD Primary Care Provider [phone] Encounter Details Date Type Department Care Team (Late st Contact Info) Description 02/20/2021 Telephone Cardiology at [address] [phone] Joel Link MD [facility] [address] [place] [address] Social History Tobacco Use Types Packs/Day Years [...] last week. Please call him back @ [phone] * Telephone Encounter - Homar Mayorga RN [...] and worn out. Please call him at [phone]. documented in this encounter Plan of Treatment Upcoming Encounters Date Type Department Care Team (Late st Contact Info) Description 10/07/2024 3:00 PM EST Office Visit Cardiology at [address] [place] [phone] Joel Link MD [facility] [place] [address] 01/18/2025 10:15 AM EDT Office Visit Dermatology at [place] [address] [facility] [place] [address] Mathew Fernando MD 580 [facility] [place] [address] documented as of this encounter Visit Diagnoses Not on filedocumented in this encounter Care Teams Senior Information Security Analyst Relationship Specialty Start Date End Date Karo Otero MD [address] [place] [address] PCP - General Family Medicine 02/11/17 03/19/23 documented as of this encounter
--- OUTSIDE RECORDS SUMMARY | 2024-06-30 12:28 | XMS_ITS | Encounter Summary ---
Author Organization Formerly [facility] Address [facility] [place] [address] Care Team Providers Care Spot Sprayer Name Role Phone Blanco Myles MD Primary Care Provider [phone] Encounter Details Date Type Department Care Team (Late st Contact Info) Description 05/21/2023 Telephone Cardiology at [address] [address] Joel Link MD [facility] [address] Social History Tobacco Use Types Packs/Day Years [...] his Cardioversion is scheduled for 06/03 at [facility], andif we get a cancellation we would try to move ups his procedure date. He was also reminded he couldgo to the ER for evaluation for worsening symptoms, which he is thinking about as a possibility. * Telephone Encounter - Beronica Garcia - 05/21/2023 11:29 AM EDT Patient called and is in A-Fib and wants to speak to a nurse. #[phone] Please call. documented in this encounter Plan of Treatment Upcoming Encounters Date Type Department Care Team (Late st Contact Info) Description 10/07/2024 3:00 PM EST Office Visit Cardiology at [address] [place] [address] Joel Link MD [facility] [place] [address] 01/18/2025 10:15 AM EDT Office Visit Dermatology at [address] [place] [phone] Mathew Fernando MD [address] [facility], [facility] A DERMATOLOGY [place], [place] [phone] documented as of this encounter Visit Diagnoses Not on filedocumented in this encounter Care Teams Spot Sprayer Relationship Specialty Start Date End Date Blanco Myles MD [address] [place] [address] PCP - General Family Medicine 03/20/23 documented as of this encounter
--- OUTSIDE RECORDS SUMMARY | 2024-06-30 12:28 | XMS_ITS | Encounter Summary ---
Author Organization Replaced By [facility] Address [facility] [address] Care Team Providers Care Rn Admission Name Role Phone Blanco Myles MD Primary Care Provider [phone] Reason for Visit * Reason Onset Date Comments Tachycardia 02/27/2023 Encounter Details Date Type Department Care Team (Late st Contact Info) Description 02/27/2023 Telephone Cardiology at [address] [phone] Joel Link MD [facility] [place] [address] Tachycardia Social History Tobacco Use Types Packs/Day [...] he feels down. Please call him @ [phone] * Telephone Encounter - Bonnie Watson, RN [...] 3:00 PM EST Office Visit Cardiology at [address] [phone] Joel Link MD [facility] [place] [address] 01/18/2025 10:15 AM EDT Office Visit Dermatology at [address] [phone] Mathew Fernando MD [address] [place] [address], [facility] [place] [address] documented as of this encounter Visit Diagnoses Not on filedocumented in this encounter Care Teams Rn Admission Relationship Specialty Start Date End Date Blanco Myles MD [address] [place] [address] PCP - General Family Medicine 03/20/23 documented as of this encounter
--- OUTSIDE RECORDS SUMMARY | 2024-06-30 12:28 | XMS_ITS | Encounter Summary ---
Author Organization [facility] [place] [address] Care Team Providers Care Food And Nutrition Services Supervisor Name Role Phone Karo Otero MD Primary Care Provider [phone] Encounter Details Date Type Department Care Team [...] 3:00 PM EST Office Visit Cardiology at [address] [address] Joel Link MD [facility] [place] [address] 01/18/2025 10:15 AM EDT Office Visit Dermatology at [address] [address] Mathew Fernando MD [address] [place] [address], [facility] [place] [address] documented as of this encounter Visit Diagnoses Not on filedocumented in this encounter Care Teams Food And Nutrition Services Supervisor Relationship Specialty Start Date End Date Karo Otero MD [address] [place] [address] PCP - General Family Medicine 02/11/17 03/19/23 documented as of this encounter
--- OUTSIDE RECORDS SUMMARY | 2024-06-30 12:28 | XMS_ITS | Encounter Summary ---
[place] [address] Care Team Providers Care Tank Storage Supervisor Name Role Phone Karo Otero MD Primary Care Provider [phone] Reason for Visit * Reason Comments Follow-up Encounter Details Date Type Department Care Team (Late st Contact Info) Description 09/18/2020 9:00 AM EST Procedure visit Dermatology at [address] [phone] Mathew Fernando MD 580 [facility] [place] [address] History of SCC (squamous cell carcinoma) of [...] 3:00 PM EST Office Visit Cardiology at [address] [address] Joel Link MD [facility] [place] [address] 01/18/2025 10:15 AM EDT Office Visit Dermatology at [address] [phone] Mathew Fernando MD [address] [place] [address], [facility] [place] [address] documented as of this encounter Visit Diagnoses Diagnosis History of SCC (squamous cell carcinoma) of skin Personal history of other malignant neoplasm of skin History of basal cell carcinoma Personal history of other malignant neoplasm of skin documented in this encounter Care Teams Tank Storage Supervisor Relationship Specialty Start Date End Date Karo tOero MD [address] [place] [address] PCP - General Family Medicine 02/11/17 03/19/23 documented as of this encounter
--- OUTSIDE RECORDS SUMMARY | 2024-06-30 12:28 | XMS_ITS | Encounter Summary ---
Author Organization [facility] [place] [address] Care Team Providers Care Depilatory Painter Name Role Phone Karo Otero MD Primary Care Provider [phone] Reason for Visit * Reason Onset Date Comments Results 06/20/2020 Holter Encounter Details Date Type Department Care Team (Late st Contact Info) Description 06/20/2020 Telephone Cardiology at [address] [phone] Joel Link MD [facility] [place] [place] [address] Results (Holter) Social History Tobacco Use Types [...] 3:00 PM EST Office Visit Cardiology at [address] [phone] Joel Link MD [facility] [place] [address] 01/18/2025 10:15 AM EDT Office Visit Dermatology at [address] [phone] Mathew Fernando MD [address] [place] [address], [facility] DERMATOLOGY [place], [place] [id number] documented as of this encounter Visit Diagnoses Not on filedocumented in this encounter Care Teams Depilatory Painter Relationship Specialty Start Date End Date Karo Otero MD [address] [place] [address] PCP - General Family Medicine 02/11/17 03/19/23 documented as of this encounter
--- OUTSIDE RECORDS SUMMARY | 2024-06-30 12:28 | XMS_ITS | Encounter Summary ---
Author Organization [facility] [place] [address] Care Team Providers Care Sorter Laundry Articles Name Role Phone Karo Otero MD Primary Care Provider [phone] Encounter Details Date Type Department Care Team (Late st Contact Info) Description 06/08/2020 [place] [phone] Unknown None Social History Tobacco Use Types [...] PM EST Office Visit Cardiology at [address] [phone] Joel Link MD [facility] [address] 01/18/2025 10:15 AM EDT Office Visit Dermatology at [address] [phone] Mathew Fernando MD [address] [place] [address], [facility] [place] [address] (work) documented as of this encounter Procedures Procedure [...] (Bezet) 402 ms MUSE SYSTEM Calculated P Pelham 73 degrees MUSE SYSTEM Calculated R Pelham -20 degrees MUSE SYSTEM Calculated T Pelham 37 degrees MUSE SYSTEM INTERPRETATION Sinus bradycardia with 1st degree A-V block Minimal voltage criteria for LVH, may be normal variant Borderline ECG When compared with ECG of 08-JUN-2020 10:00, No significant change was found Confirmed by MD Link Daniel ([id number]) on 07/22/2020 11:08:36 AM MUSE SYSTEM 07/19/2020 [...] (Bezet) 420 ms MUSE SYSTEM Calculated P Pelham 76 degrees MUSE SYSTEM Calculated R Pelham -22 degrees MUSE SYSTEM Calculated T Pelham 26 degrees MUSE SYSTEM INTERPRETATION Sinus bradycardia with 1st degree A-V block Otherwise normal ECG When compared with ECG of 18-OCT-2019 10:36, No significant change was found Confirmed by MD Link Daniel ([id number]) on 06/08/2020 12:38:56 PM MUSE SYSTEM 06/08/2020 10:0 0 AM EDT 06/08/2020 12:38 PM EDT Unknown ECG ORDERABLES MUSE SYSTEM documented in this encounter Visit Diagnoses Not on filedocumented in this encounter Care Teams Sorter Laundry Articles Relationship Specialty Start Date End Date Karo Otero MD [address] [place] [address] PCP - General Family Medicine 02/11/17 03/19/23 documented as of this encounter
--- OUTSIDE RECORDS SUMMARY | 2024-06-30 12:28 | XMS_ITS | Encounter Summary ---
Author Organization [facility] Address [facility] [place] [address] Care Team Providers Care Fur Blower Name Role Phone Blanco Myles MD Primary Care Provider [phone] Reason for Referral * Surgical (Routine) - Closed Specialty Diagnoses / Procedures Referred By Contac t Referred To Contact Diagnoses PAF (paroxysmal atrial fibrillation) Procedures CARDIOVERSION-OR Joel Link MD [facility] [place] [address] Referral ID Status Reason Start Date Expiration Date V isits Requested Visits Authorized [id number] Closed Specialty Service Requested 05/05/2023 11/01/2023 1 1 Encounter Details Date Type Department Care Team (Late st Contact Info) Description 05/01/2023 Telephone Cardiology at [address] [phone] Joel Link MD [facility] [address] [place] [phone] Social History Tobacco Use Types Packs/Day Years [...] 2:47 PM EDT To: Joel Link MD, [facility] Card Nurse Subject: hloter scanned Holter scanned [...] or his monitor. Please call him @ [phone] documented in this encounter Plan of Treatment Upcoming Encounters Date Type Department Care Team (Late st Contact Info) Description 10/07/2024 3:00 PM EST Office Visit Cardiology at [address] [phone] Joel Link MD [facility] [place] [address] 01/18/2025 10:15 AM EDT Office Visit Dermatology at [address] [phone] Mathew Fernando MD [address] [place] [address], [facility] DERMATOLOGY [place], [place] [id number] Scheduled Orders Name Type Priority Associated Diagnoses Orde r Schedule CARDIOVERSION-OR Procedures Routine PAF (paroxysmal atrial fibrillation) Expected: 05/05/2023, Expires: 09/04/2023 documented as of this encounter Visit Diagnoses Diagnosis PAF (paroxysmal atrial fibrillation) Atrial fibrillation documented in this encounter Care Teams Fur Blower Relationship Specialty Start Date End Date Blanco Myles MD [address] [place] [address] PCP - General Family Medicine 03/20/23 documented as of this encounter
--- OUTSIDE RECORDS SUMMARY | 2024-06-30 12:28 | XMS_ITS | Encounter Summary ---
Author Organization [facility] [place] [address] Care Team Providers Care Spring Setter Name Role Phone Karo Otero MD Primary Care Provider [phone] Reason for Visit * Reason Onset Date Comments Atrial Fibrillation 09/16/2022 Encounter Details Date Type Department Care Team (Late st Contact Info) Description 09/16/2022 Telephone Cardiology at [address] [phone] Joel Link MD [facility] [place] [address] Atrial Fibrillation Social History Tobacco Use Types [...] twice a day. Primary subjective symptom: fatigue. Maitland accepted plan to see Dr. Link in the clinic in two weeks. documented in this encounter Plan of Treatment Upcoming Encounters Date Type Department Care Team (Late st Contact Info) Description 10/07/2024 3:00 PM EST Office Visit Cardiology at [address] [place] [address] Joel Link MD [facility] [place] [address] 01/18/2025 10:15 AM EDT Office Visit Dermatology at [address] [place] [address] Mathew Fernando MD [address] [place] [address], [facility] A DERMATOLOGY [place], [place] [id number] documented as of this encounter Visit Diagnoses Not on filedocumented in this encounter Care Teams Spring Setter Relationship Specialty Start Date End Date Karo Otero MD [address] [place] [address] PCP - General Family Medicine 02/11/17 03/19/23 documented as of this encounter
--- OUTSIDE RECORDS SUMMARY | 2024-06-30 12:28 | XMS_ITS | Encounter Summary ---
Author Organization [facility] Address [facility] [place] [address] Care Team Providers Care Oil Tank Car Cleaner Name Role Phone Blanco Myles MD Primary Care Provider [phone] Reason for Visit * Diagnostic Test (Routine) - Closed Specialty Diagnoses / Procedures Referred By Contac t Referred To Contact Cardiology Diagnoses Cardiomyopathy, ischemic Procedures Echocardiogram Transthoracic Joel Link MD [facility] [address] [place] [address] [facility] [address] [place] [address] [place] [address] Referral ID Status Reason Start Date Expiration Date V isits Requested Visits Authorized [id number] Closed Specialty Service Requested 03/20/2023 09/16/2023 1 1 Encounter Details Date Type Department Care Team (Latest Contact Info) Description 04/22/2023 5:40 PM EDT Ext Surgery or Single Event [address] [place] [phone] Joel Link MD [facility] [address] Cardiomyopathy, ischemic Social History Tobacco Use Types [...] 3:00 PM EST Office Visit Cardiology at [place] [address] [facility] [place] [address] Joel Link MD [facility] DR [place] [address] 01/18/2025 10:15 AM EDT Office Visit Dermatology at [place] [address] [facility] [place] [phone] Mathew Fernando MD 580 [facility] A DERMATOLOGY [place], [place] [address] documented as of this encounter Procedures Procedure [...] disease documented in this encounter Care Teams Oil Tank Car Cleaner Relationship Specialty Start Date End Date Blanco Myles MD [address] [place] [address] PCP - General Family Medicine 03/20/23 documented as of this encounter
--- OUTSIDE RECORDS SUMMARY | 2024-06-30 12:28 | XMS_ITS | Encounter Summary ---
[place] [address] Care Team Providers Care Retail Department Supervisor Name Role Phone Karo Otero MD Primary Care Provider [phone] Encounter Details Date Type Department Care Team (Late st Contact Info) Description 07/06/2022 Telephone Cardiology at [address] [phone] Fred Reynaga MD [facility] [place] [address] Social History Tobacco Use Types Packs/Day Years [...] he has clinically improved Fred Reynaga MD Provider Scribe [id number] documented in this encounter Plan of Treatment Upcoming Encounters Date Type Department Care Team (Late st Contact Info) Description 10/07/2024 3:00 PM EST Office Visit Cardiology at [address] [phone] Joel Link MD [facility] [place] [address] 01/18/2025 10:15 AM EDT Office Visit Dermatology at [address] [phone] Mathew Fernando MD [address] [place] [address], [facility] DERMATOLOGY [place], [place] [phone] documented as of this encounter Visit Diagnoses Not on filedocumented in this encounter Care Teams Retail Department Supervisor Relationship Specialty Start Date End Date Karo Otero MD [address] [place] [address] PCP - General Family Medicine 02/11/17 03/19/23 documented as of this encounter
--- OUTSIDE RECORDS SUMMARY | 2024-06-30 12:28 | XMS_ITS | Encounter Summary ---
Author Organization [facility] [place] [address] Care Team Providers Care Wool Puller Name Role Phone Karo Otero MD Primary Care Provider [phone] Encounter Details Date Type Department Care Team (Late st Contact Info) Description 01/14/2023 Refill Dermatology at [address] [phone] Shana Lowe, CLINICAL LAB ASSISTANT Social History Tobacco Use Types Packs/Day Years [...] 3:00 PM EST Office Visit Cardiology at [address] [phone] Joel Link MD [facility] [place] [address] 01/18/2025 10:15 AM EDT Office Visit Dermatology at [address] [phone] Mathew Fernando MD [address] [place] [address], [facility] [place] [address] documented as of this encounter Visit Diagnoses Not on filedocumented in this encounter Care Teams Wool Puller Relationship Specialty Start Date End Date Karo Otero MD [address] [place] [address] PCP - General Family Medicine 02/11/17 03/19/23 documented as of this encounter
--- OUTSIDE RECORDS SUMMARY | 2024-06-30 12:28 | XMS_ITS | Encounter Summary ---
[place] [address] Care Team Providers Care Facility Sales And Admin Name Role Phone Karo Otero MD Primary Care Provider [phone] Reason for Visit * Reason Comments Skin Lesion Encounter Details Date Type Department Care Team (Late st Contact Info) Description 06/11/2022 3:15 PM EDT Office Visit Dermatology at [address] [place] [address] Mathew Fernando MD 580 [facility] [place] [address] AK (actinic keratosis) Social History Tobacco Use [...] ??History of extensive sun exposure living in [place] 3. ??History of BCCA's right upper back treated in [place] 4. ??History of BCCA left medial cheek [...] PM EST Office Visit Cardiology at [address] [phone] Joel Link MD [facility] [place] [address] 01/18/2025 10:15 AM EDT Office Visit Dermatology at [address] [phone] Mathew Fernando MD [address] [place] [address], [facility] [place] [address] documented as of this encounter Visit Diagnoses Diagnosis AK (actinic keratosis) Actinic keratosis documented in this encounter Care Teams Facility Sales And Admin Relationship Specialty Start Date End Date Karo Otero MD [address] [place] [address] PCP - General Family Medicine 02/11/17 03/19/23 documented as of this encounter
--- OUTSIDE RECORDS SUMMARY | 2024-06-30 12:28 | XMS_ITS | Encounter Summary ---
[place] [address] Care Team Providers Care Wagon Washer Name Role Phone Karo Otero MD Primary Care Provider [phone] Encounter Details Date Type Department Care Team (Late Contact Info) Description 01/23/2023 Telephone Dermatology at [address] [phone] Marlyn Dean RN Social History [...] Department Care Team (Late Contact Info) Description 10/07/2024 3:00 PM EST Office Visit Cardiology at [address] [place] [phone] Joel Link MD [facility] [place] [address] 01/18/2025 10:15 AM EDT Office Visit Dermatology at [place] 580 [facility] [place] [phone] Mathew Fernando MD 580 [facility] [address] documented as of this encounter Visit Diagnoses Not on filedocumented in this encounter Care Teams Wagon Washer Relationship Specialty Start Date End Date Karo Otero MD [address] [place] [address] PCP - General Family Medicine 02/11/17 03/19/23 documented as of this encounter
--- OUTSIDE RECORDS SUMMARY | 2024-06-30 12:28 | XMS_ITS | Encounter Summary ---
Author Organization [facility] [place] [address] Care Team Providers Care Toll Ticket Clerk Name Role Phone Karo Otero MD Primary Care Provider [phone] Encounter Details Date Type Department Care Team (Latest Contact Info) Description 01/13/2023 10:04 PM EDT - 01/13/2023 11:59 PM EDT Hospital [place] [address] Discharge Disposition: Home Social History Tobacco Use [...] mg Tablet, SublingualIndications:C oronary artery disease involving little river coronary artery of little river heart without angina pectoris Place 1 tablet under the tongue every 5 minutes as needed for Chest pain (x 3). 25 tablet 01/23/2022 atorvastatin (Lipitor) 80 mg Tablet Take 80 mg by mouth every evening. 05/31/2020 fluticasone propionate (FLONASE) 50 mcg/actuation [place], Suspension 2 sprays by Each Nare route daily as needed. 03/11/2020 polyethylene glycol (MIRALAX) 17 gram Powder in Packet Take 17 g by mouth daily as needed. 01/14/2018 multivitamin (THERAGRAN) Tablet Take 1 tablet by mouth daily. cholecalciferol, Vitamin D3, 50 mcg (2,000 unit) Capsule Take 1 capsule by mouth daily. hydrOXYzine (Atarax) 25 mg tablet Take 25-50 [...] 320 mg by mouth daily. 04/26/2022 01/16/2024 buPROPion (WELLBUTRIN SR OR ZYBAN) 150 mg Tablet Sustained Release 12 hr take 1 tablet by mouth twice a day 0 12/23/2016 04/05/2024 temazepam (RESTORIL) 15 mg Capsule take 1 capsule by mouth at bedtime 0 09/29/2016 06/19/2023 documented as of this encounter Plan of Treatment Upcoming Encounters Date Type Department Care Team (Late st Contact Info) Description 10/07/2024 3:00 PM EST Office Visit Cardiology at [address] [place] [address] Joel Link MD [facility] [place] [address] 01/18/2025 10:15 AM EDT Office Visit Dermatology at [address] [place] [address] Mathew Fernando MD [address] [place] [address], [facility] Martha DERMATOLOGY [place], [place] [phone] documented as of this encounter Procedures Procedure Name Priority Date/Time Associated Diagnosis Comments SURGICAL PATHOLOGY REPORT Routine 01/13/2023 10:45 AM EDT documented in this encounter Results * (ABNORMAL) Surgical Pathology Report (01/13/2023 10:45 AM EDT) Final Diagnosis [id number] ? Location: OPW The signing pathologist has (i) examined the relevant preparation(s) for the specimen(s) and (ii) rendered or confirmed the diagnosis(es). . ?Surgical Pathology DIAGNOSIS Left anterior shoulder, skin shave biopsy ED&C: - ??Invasive squamous cell carcinoma, ??moderately differentiated with infiltrating growth pattern, present at the base of the biopsy specimen Electronically signed by: ?Karthik QUINTERO, PhD, [facility] Verified: ??01/22/2023 8:51 ?? Dermatopathologist Performed at: ??-[facility] Dept. of Pathology, [place] [address] Track Welder: Alma Giang MD, AP, ??CLIA Certificate: [id number] DISCUSSION THIS RESULT REQUIRES PHYSICIAN/A.P.P. FOLLOW UP [...] entirely submitted in 1 cassette labeled A1. ??marianela(A) 01/22/2023 8:51 AM EDT [facility] SPECIMEN FROM SKIN / Unknown 01/13/2023 10:45 AM EDT 01/13/2023 10:45 AM EDT Mathew Fernando MD PATHOLOGY/CYTOLOGY [place] Performing Organization Address City/State/[facility] Co de Phone Number [facility] [place] [address] [facility] [place] [address] documented in this encounter Visit Diagnoses Not on filedocumented in this encounter Care Teams Toll Ticket Clerk Relationship Specialty Start Date End Date Karo Otero MD [address] [place] [address] PCP - General Family Medicine 02/11/17 03/19/23 documented as of this encounter
--- OUTSIDE RECORDS SUMMARY | 2024-06-30 12:28 | XMS_ITS | Encounter Summary ---
Author Organization Formerly [facility] [place] [address] Care Team Providers Care Back Roller Name Role Phone Karo Otero MD Primary Care Provider [phone] Encounter Details Date Type Department Care Team (Late st Contact Info) Description 12/18/2020 Telephone Cardiology at [address] [address] Joel Link MD [facility] [place] [address] Social History Tobacco Use Types Packs/Day Years [...] refill with new bottle. Please call into [facility] in [facility]. documented in this encounter Plan of Treatment Upcoming Encounters Date Type Department Care Team (Late st Contact Info) Description 10/07/2024 3:00 PM EST Office Visit Cardiology at [address] [place] [address] Joel Link MD [facility] [place] [address] 01/18/2025 10:15 AM EDT Office Visit Dermatology at [address] [place] [address] Mathew Fernando MD [address] [facility], [facility] [place] [address] documented as of this encounter Visit Diagnoses Not on filedocumented in this encounter Care Teams Back Roller Relationship Specialty Start Date End Date Karo Otero MD [address] [place] [address] PCP - General Family Medicine 02/11/17 03/19/23 documented as of this encounter
--- OUTSIDE RECORDS SUMMARY | 2024-06-30 12:28 | XMS_ITS | Encounter Summary ---
Author Organization [facility] [place] [address] Care Team Providers Care Hot Mill Observer Name Role Phone Karo Otero MD Primary Care Provider [phone] Reason for Visit * Reason Comments Medication Refill Encounter Details Date Type Department Care Team (Late st Contact Info) Description 12/20/2020 Refill Cardiology at [address] [place] [phone] Joel Link MD [facility] [place] [address] Medication Refill Social History Tobacco Use Types [...] PM EST Office Visit Cardiology at [address] [place] [phone] Joel Lnik MD 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
--- OUTSIDE RECORDS SUMMARY | 2024-06-30 12:28 | XMS_ITS | Encounter Summary ---
Author Organization [facility] [place] [address] Care Team Providers Care Manager Merchandise Name Role Phone Blanco Myles MD Primary Care Provider [phone] Encounter Details Date Type Department Care Team (Late st Contact Info) Description 05/06/2023 Telephone Cardiology at [address] [address] Homar Mayorga RN Social History [...] will help it. Please call him @ [phone] * Telephone Encounter - Homar Mayorga RN - 05/06/2023 3:40 PM EDT Called patient to let them know that his Cardioversion is scheduled for Friday06/03/23. His arrival time is 8:30 am to [facility], procedure time is 10:00 (in ICU). Patient is aware he will need a industrial tractor driver for day of procedure. He is also [...] PM EST Office Visit Cardiology at [address] [place] [address] Joel Link MD [facility] [place] [address] 01/18/2025 10:15 AM EDT Office Visit Dermatology at [address] [place] [address] Mathew Fernando MD [address] [facility] [address], [place] [address] documented as of this encounter Visit Diagnoses Not on filedocumented in this encounter Care Teams Manager Merchandise Relationship Specialty Start Date End Date Blanco Myles MD [address] [place] [id number] PCP - General Family Medicine 03/20/23 documented as of this encounter
--- OUTSIDE RECORDS SUMMARY | 2024-06-30 12:28 | XMS_ITS | Encounter Summary ---
Author Organization [facility] [place] [address] Care Team Providers Care Supervisor Pile Driving Name Role Phone Karo Otero MD Primary Care Provider [phone] Encounter Details Date Type Department Care Team (Late st Contact Info) Description 12/20/2020 Telephone Cardiology at [address] [address] Joel Link MD [facility] [place] [address] Social History Tobacco Use Types Packs/Day Years [...] Patient is expecting a call back @ [phone] only if there are questions or problems. documented in this encounter Plan of Treatment Upcoming Encounters Date Type Department Care Team (Late st Contact Info) Description 10/07/2024 3:00 PM EST Office Visit Cardiology at [address] [place] [address] Joel Link MD [facility] [place] [address] 01/18/2025 10:15 AM EDT Office Visit Dermatology at [address] [place] [phone] Mathew Fernando MD [address] [place] [address], [facility] [place] [place] [address] documented as of this encounter Visit Diagnoses Not on filedocumented in this encounter Care Teams Supervisor Pile Driving Relationship Specialty Start Date End Date Karo Otero MD [address] [place] [address] PCP - General Family Medicine 02/11/17 03/19/23 documented as of this encounter
--- OUTSIDE RECORDS SUMMARY | 2024-06-30 12:28 | XMS_ITS | Encounter Summary ---
[place] [address] Care Team Providers Care Air Defense Specialist Name Role Phone Karo Otero MD Primary Care Provider [phone] Reason for Visit * Reason Comments Annual Exam Encounter Details Date Type Department Care Team (Late st Contact Info) Description 01/11/2022 9:45 AM EDT Office Visit Dermatology at [address] [phone] Mathew Fernando MD [address] [facility] [place] [address] History of SCC (squamous cell carcinoma) of [...] ??History of extensive sun exposure living in [place] 3. ??History of BCCA's right upper back treated in [place] 4. ??History of BCCA left medial cheek [...] at the hairline and on the left yazdanism and on the upper nasal bridge. Fortunately [...] 3:00 PM EST Office Visit Cardiology at [address] [phone] Joel Link MD [facility] [place] [address] 01/18/2025 10:15 AM EDT Office Visit Dermatology at [address] [phone] Mathew Fernando MD [address] [place] [address], [facility] [place] [address] documented as of this encounter Visit Diagnoses Diagnosis History of SCC (squamous cell carcinoma) of skin Personal history of other malignant neoplasm of skin History of basal cell carcinoma Personal history of other malignant neoplasm of skin AK (actinic keratosis) Actinic keratosis documented in this encounter Care Teams Air Defense Specialist Relationship Specialty Start Date End Date Karo Otero MD [address] [place] [address] PCP - General Family Medicine 02/11/17 03/19/23 documented as of this encounter
--- OUTSIDE RECORDS SUMMARY | 2024-06-30 12:28 | XMS_ITS | Encounter Summary ---
Author Organization [facility] [place] [address] Care Team Providers Care Sports Medicine Specialist Name Role Phone Karo Otero MD Primary Care Provider [phone] Reason for Visit * Reason Comments Ventricular Arrhythmia Ventricular Bigem iny Coronary Artery Disease Encounter Details Date Type Department Care Team (Late st Contact Info) Description 01/17/2021 10:20 AM EDT Office Visit Cardiology at [address] [phone] Joel Link MD [facility] [place] [address] Coronary artery disease involving [place] coronary artery of [place] heart without angina pectoris; Cardiomyopathy, ischemic; Hyperpiesia; [...] Rfl: ??? fluticasone propionate (FLONASE) 50 mcg/actuation [place], Suspension, 2 sprays by Each Nare route [...] eyes Added automatically from request for surgery [id number] Added automatically from request for surgery [id number] ??? Ventricular bigeminy ??? Cardiomyopathy, ischemic 11/2017: [...] PM EST Office Visit Cardiology at [address] [address] Joel Link MD [facility] [place] [address] 01/18/2025 10:15 AM EDT Office Visit Dermatology at [address] [address] Mathew Fernando MD [address] [facility], [facility] DERMATOLOGY [place], [place] [id number] documented as of this encounter Visit Diagnoses Diagnosis Coronary artery disease involving [place] coronary artery of [place] heart without angina pectoris Cardiomyopathy, ischemic Other specified forms of chronic ischemic heart disease Hyperpiesia Unspecified essential hypertension Ventricular bigeminy Other specified cardiac dysrhythmias documented in this encounter Care Teams Sports Medicine Specialist Relationship Specialty Start Date End Date Karo Otero MD [address] [place] [address] PCP - General Family Medicine 02/11/17 03/19/23 documented as of this encounter
--- OUTSIDE RECORDS SUMMARY | 2024-06-30 12:28 | XMS_ITS | Encounter Summary ---
Author Organization Formerly [facility] [place] [address] Care Team Providers Care Supervisor Open Hearth Stockyard Name Role Phone Karo Otero MD Primary Care Provider [phone] Reason for Visit * Reason Comments Medication Refill Encounter Details Date Type Department Care Team (Late st Contact Info) Description 12/17/2020 Refill Cardiology at [address] [place] [phone] Joel Link MD [facility] [place] [address] Medication Refill Social History Tobacco Use Types [...] 3:00 PM EST Office Visit Cardiology at [address] [place] [phone] Joel Link MD [facility] [place] [address] 01/18/2025 10:15 AM EDT Office Visit Dermatology at [address] [place] [address] Mathew Fernando MD [address] [facility], [place] [address] documented as of this encounter Visit Diagnoses Diagnosis Coronary artery disease involving angoon coronary artery of [place] heart without angina pectoris documented in this encounter Care Teams Supervisor Open Hearth Stockyard Relationship Specialty Start Date End Date Karo Otero MD [address] [place] [id number] PCP - General Family Medicine 02/11/17 03/19/23 documented as of this encounter
--- OUTSIDE RECORDS SUMMARY | 2024-06-30 12:28 | XMS_ITS | Encounter Summary ---
Author Organization [facility] [place] [address] Care Team Providers Care Stockbroking Dealer Name Role Phone Karo Otero MD Primary Care Provider [phone] Encounter Details Date Type Department Care Team (Late st Contact Info) Description 05/03/2021 Telephone Cardiology at [address] [phone] Joel Link MD [facility] [place] [address] Social History Tobacco Use Types Packs/Day Years [...] down. He is at Cardiac Rehab in [facility]. His # is [phone] documented in this encounter Plan of Treatment Upcoming Encounters Date Type Department Care Team (Late st Contact Info) Description 10/07/2024 3:00 PM EST Office Visit Cardiology at [address] [phone] Joel Link MD [facility] [place] [address] 01/18/2025 10:15 AM EDT Office Visit Dermatology at [address] [phone] Mathew Fernando MD [address] [facility] [place] [address] documented as of this encounter Visit Diagnoses Not on filedocumented in this encounter Care Teams Stockbroking Dealer Relationship Specialty Start Date End Date Karo Otero MD [address] [place] [address] PCP - General Family Medicine 02/11/17 03/19/23 documented as of this encounter
--- OUTSIDE RECORDS SUMMARY | 2024-06-30 12:28 | XMS_ITS | Encounter Summary ---
[place] [address] Care Team Providers Care Sales Account Executive Name Role Phone Karo Otero MD Primary Care Provider Reason for Visit * Reason Comments Annual Exam Encounter Details Date Type Department Care Team (Late st Contact Info) Description 01/14/2023 10:15 AM EDT Office Visit Dermatology at [address] [phone] Mathew Fernando MD [address] [facility] [place] [address] AK (actinic keratosis); History of SCC (squamous [...] ??History of extensive sun exposure living in [place] 3. ??History of BCCA's right upper back treated in [place] 4. ??History of BCCA left medial cheek [...] be called into the community pharmacy in [facility] Rule out BCC left anterior shoulder 1. [...] 3:00 PM EST Office Visit Cardiology at [address] [phone] Joel Link MD [facility] [place] [address] 01/18/2025 10:15 AM EDT Office Visit Dermatology at [address] [phone] Mathew Fernando MD [address] [place] [address], [facility] [place] [address] documented as of this encounter Visit Diagnoses Diagnosis AK (actinic keratosis) Actinic keratosis History of SCC (squamous cell carcinoma) of skin Personal history of other malignant neoplasm of skin History of basal cell carcinoma Personal history of other malignant neoplasm of skin documented in this encounter Care Teams Sales Account Executive Relationship Specialty Start Date End Date Karo Otero MD [address] [place] [address] PCP - General Family Medicine 02/11/17 03/19/23 documented as of this encounter
--- OUTSIDE RECORDS SUMMARY | 2024-06-30 12:28 | XMS_ITS | Encounter Summary ---
Author Organization [facility] [place] [address] Care Team Providers Care Conductor Freight Name Role Phone Blanco Myles MD Primary Care Provider [phone] Reason for Visit * Reason Onset Date Comments Results 04/23/2023 Encounter Details Date Type Department Care Team (Late st Contact Info) Description 04/23/2023 Telephone Cardiology at [address] [phone] Joel Link MD [facility] [place] [place] [address] Results Social History Tobacco Use Types Packs/Day [...] 3:00 PM EST Office Visit Cardiology at [address] [place] [phone] Joel Link MD [facility] [place] [address] 01/18/2025 10:15 AM EDT Office Visit Dermatology at [address] [place] [address] Mathew Fernando MD [address] [place] [address], [place] [address] documented as of this encounter Visit Diagnoses Not on filedocumented in this encounter Care Teams Conductor Freight Relationship Specialty Start Date End Date Blanco Myles MD [address] [place] [address] PCP - General Family Medicine 03/20/23 documented as of this encounter
--- OUTSIDE RECORDS SUMMARY | 2024-06-30 12:28 | XMS_ITS | Encounter Summary ---
Author Organization [facility]ly [facility] [place] [address] Care Team Providers Care Lab Animal Technologist Name Role Phone Karo Otero MD Primary Care Provider [phone] Reason for Visit * Reason Comments Medication Refill Encounter Details Date Type Department Care Team (Late st Contact Info) Description 07/19/2020 Refill Cardiology at [address] [phone] Joel Link MD [facility] [place] [address] Medication Refill Social History Tobacco Use Types [...] 3:00 PM EST Office Visit Cardiology at [address] [phone] Joel Link MD [facility] [place] [address] 01/18/2025 10:15 AM EDT Office Visit Dermatology at [address] [place] [address] Mathew Fernando MD [address] [facility] [place] [address] documented as of this encounter Visit Diagnoses Diagnosis Essential hypertension Unspecified essential hypertension documented in this encounter Care Teams Lab Animal Technologist Relationship Specialty Start Date End Date Karo Otero MD [address] [place] [address] PCP - General Family Medicine 02/11/17 03/19/23 documented as of this encounter
--- OUTSIDE RECORDS SUMMARY | 2024-06-30 12:28 | XMS_ITS | Encounter Summary ---
[place] [address] Care Team Providers Care Blow Torch Burner Name Role Phone Karo Otero MD Primary Care Provider [phone] Encounter Details Date Type Department Care Team (Late st Contact Info) Description 09/26/2020 10:30 AM EST Office Visit Dermatology at [address] [place] [address] Mathew Fernando MD [address] [facility] [place] [address] Visit for suture removal Social History Tobacco [...] PM EST Office Visit Cardiology at [address] [phone] Joel Link MD [facility] [place] [address] 01/18/2025 10:15 AM EDT Office Visit Dermatology at [address] [phone] Mathew Fernando MD [address] [place] [address], [facility] [place] [address] documented as of this encounter Visit Diagnoses Diagnosis Visit for suture removal Encounter for removal of sutures documented in this encounter Care Teams Blow Torch Burner Relationship Specialty Start Date End Date Karo Otero MD [address] [place] [address] PCP - General Family Medicine 02/11/17 03/19/23 documented as of this encounter
--- OUTSIDE RECORDS SUMMARY | 2024-06-30 12:28 | XMS_ITS | Encounter Summary ---
Author Organization [facility] [place] [address] Care Team Providers Care Manager Call Name Role Phone Karo Otero MD Primary Care Provider [phone] Reason for Visit * Reason Comments Atrial Fibrillation Coronary Artery Disease Encounter Details Date Type Department Care Team (Latest Contact Info) Description 12/04/2022 1:00 PM EDT Office Visit Cardiology at [address] [phone] Joel Link MD [facility] [place] [address] ASCVD (arteriosclerotic cardiovascular disease); Cardiomyopathy, ischemic; PAF [...] DAILY ??? fluticasone propionate (FLONASE) 50 mcg/actuation [place], Suspension 2 sprays, Each Nare, DAILY PRN [...] nor exam. Will obtain echo report from [facility] from 06/2022 - Diuresis: none - Cardioprotection: [...] identified * Assessment & Plan Note - Jole Link MD - 12/04/2022 1:50 PM EDT Associated Problem(s): Cardiomyopathy, ischemic No failure by history nor exam. Will obtain echo report from [facility] from 06/2022 - Diuresis: none - Cardioprotection: [...] 3:00 PM EST Office Visit Cardiology at [address] [phone] Joel Link MD [facility] [place] [address] 01/18/2025 10:15 AM EDT Office Visit Dermatology at [address] [phone] Mathew Fernando MD [address] [place] [address] DERMATOLOGY [place], [place] [phone] documented as of this encounter Visit Diagnoses Diagnosis ASCVD (arteriosclerotic cardiovascular disease) Unspecified cardiovascular disease Cardiomyopathy, ischemic Other specified forms of chronic ischemic heart disease PAF (paroxysmal atrial fibrillation) Atrial fibrillation documented in this encounter Care Teams Manager Call Relationship Specialty Start Date End Date Karo Otero MD [address] [place] [address] PCP - General Family Medicine 02/11/17 03/19/23 documented as of this encounter
--- OUTSIDE RECORDS SUMMARY | 2024-06-30 12:29 | XMS_ITS | Encounter Summary ---
Author Organization [facility] Address [facility] [place] [address] Care Team Providers Care Instructor Product Inspection Name Role Phone Karo Otero MD Primary Care Provider [phone] Reason for Visit * Reason Comments Follow-up 6 month f/u ASCVD, m ore tired, More SOB. Broke femur last year Encounter Details Date Type Department Care Team (Late st Contact Info) Description 04/06/2019 9:40 AM EDT Office Visit Cardiology at [address] [phone] Joel Paniagua MD [facility] [place] [address] Non-ST elevation myocardial infarction (NSTEMI); Coronary artery disease involving [place] coronary artery of [place] heart without angina pectoris; Cardiomyopathy, ischemic; Left [...] in this encounter Progress Notes * Joel Paniagua MD - 04/06/2019 9:40 AM EDT [...] 3 (moderate) ??? Coronary artery disease involving [place] coronary artery of [place] heart 11/2017: mild diffuse LM and RCA, [...] Assessment and Plan: Coronary artery disease involving [place] coronary artery of [place] heart No angina per history - Anti-platelets: [...] duplex RTC 12 months, unless TTE abnormal Joel Paniagua MD documented in this encounter Miscellaneous Notes * Assessment & Plan Note - Joel Paniagua MD - 04/06/2019 10:25 AM EDT Associated Problem(s): Bilateral carotid artery stenosis Carotid duplex * Assessment & Plan Note - Joel Paniagua MD - 04/06/2019 10:16 AM EDT [...] function) * Assessment & Plan Note - Joel Paniagua MD - 04/06/2019 10:15 AM EDT Associated Problem(s): ASCVD (arteriosclerotic cardiovascular disease) No angina per history - Anti-platelets: ASA 81 - Statin: lipitor 80 - Anti-anginals: toprol, GTN PRN * Addendum Note - Joel Paniagua MD - 04/06/2019 9:40 AM EDTAddended by: JOEL PANIAGUA on: 04/06/2019 10:26 AM Modules accepted: Orders documented in this encounter Plan of Treatment Upcoming Encounters Date Type Department Care Team (Late st Contact Info) Description 10/07/2024 3:00 PM EST Office Visit Cardiology at [place] [address] [place] [address] Joel Paniagua MD [facility] [place] [address] 01/18/2025 10:15 AM EDT Office Visit Dermatology at [place] [address] [facility] [place] [address] Mathew Fernando MD [address] [facility] [place] [address] documented as of this encounter Visit Diagnoses Diagnosis Non-ST elevation myocardial infarction (NSTEMI) Acute myocardial infarction, subendocardial infarction, episode of care unspecified Coronary artery disease involving [place] coronary artery of [place] heart without angina pectoris Cardiomyopathy, ischemic Other specified forms of chronic ischemic heart disease Left carotid bruit Other symptoms involving cardiovascular system documented in this encounter Care Teams Instructor Product Inspection Relationship Specialty Start Date End Date Karo Otero MD [address] [place] [address] PCP - General Family Medicine 02/11/17 03/19/23 documented as of this encounter
--- OUTSIDE RECORDS SUMMARY | 2024-06-30 12:29 | XMS_ITS | Encounter Summary ---
Author Organization [facility] [place] [address] Care Team Providers Care Commercial Baker Helper Name Role Phone Karo Otero MD Primary Care Provider [phone] Reason for Visit * Reason Comments Medication Refill acebutolol 200 mg ca p Encounter Details Date Type Department Care Team (Late st Contact Info) Description 07/05/2019 Refill Cardiology at [address] [phone] Mane Gonzalez MD [facility] [place] [address] Medication Refill (acebutolol 200 mg cap) Social [...] 3:00 PM EST Office Visit Cardiology at [address] [phone] Joel Link MD [facility] [place] [address] 01/18/2025 10:15 AM EDT Office Visit Dermatology at [place] [address] [place] [address] Mathew Fernando MD [address], [place] [address] documented as of this encounter Visit Diagnoses Diagnosis Essential hypertension Unspecified essential hypertension documented in this encounter Care Teams Commercial Baker Helper Relationship Specialty Start Date End Date Karo Otero MD [address] [place] [id number] PCP - General Family Medicine 02/11/17 03/19/23 documented as of this encounter
--- OUTSIDE RECORDS SUMMARY | 2024-06-30 12:29 | XMS_ITS | Encounter Summary ---
[place] [address] Care Team Providers Care Air Hammer Operator Name Role Phone Karo Otero MD Primary Care Provider [phone] Reason for Visit * Reason Comments Follow-up 6 month f/u HTN, Hyp erlipidemia, CAD, no complaints except dry mouth Encounter Details Date Type Department Care Team (Late st Contact Info) Description 10/06/2018 9:40 AM EST Office Visit Cardiology at [address] [phone] Sukh Mishra Jr., MD [address] [place] [phone] Hyperlipidemia, unspecified hyperlipidemia type; Essential hypertension; ASCVD [...] PM EST Office Visit Cardiology at [address] [phone] Joel Link MD [facility] [place] [address] 01/18/2025 10:15 AM EDT Office Visit Dermatology at [address] [place] [phone] Mathew Fernando MD [address] [place] [address], [facility] A DERMATOLOGY [place], [place] [phone] documented as of this encounter Visit Diagnoses Diagnosis Hyperlipidemia, unspecified hyperlipidemia type Essential hypertension Unspecified essential hypertension ASCVD (arteriosclerotic cardiovascular disease) Unspecified cardiovascular disease documented in this encounter Care Teams Air Hammer Operator Relationship Specialty Start Date End Date Karo Otero MD [address] [place] [address] PCP - General Family Medicine 02/11/17 03/19/23 documented as of this encounter
--- OUTSIDE RECORDS SUMMARY | 2024-06-30 12:29 | XMS_ITS | Encounter Summary ---
Author Organization [facility] [place] [address] Care Team Providers Care Senior Financial Reporting Analyst Name Role Phone Karo Otero MD Primary Care Provider [phone] Encounter Details Date Type Department Care Team (Late st Contact Info) Description 06/01/2019 Telephone Cardiology at [address] [phone] Joel Link MD [facility] [place] [address] Social History Tobacco Use Types Packs/Day Years [...] 06/01/2019 4:20 PM EDT appt scheduled called [facility] informing Patient * Telephone Encounter - Homar Mayorga RN - 06/01/2019 3:47 PM EDT Waiting on records from [facility]. * Telephone Encounter - Beronica Garcia - 06/01/2019 2:41 PM EDT Patient being D/C from [facility] today for ventricular Bigeminy. Dr Romero is asking for an appt for patient CHARLIE. They will fax [facility] notes. #[phone] documented in this encounter Plan of Treatment Upcoming Encounters Date Type Department Care Team (Late st Contact Info) Description 10/07/2024 3:00 PM EST Office Visit Cardiology at [address] [phone] Joel Link MD [facility] [place] [address] 01/18/2025 10:15 AM EDT Office Visit Dermatology at [address] [place] [phone] Mathew Fernando MD [address] [facility] [place] [address] documented as of this encounter Visit Diagnoses Not on filedocumented in this encounter Care Teams Senior Financial Reporting Analyst Relationship Specialty Start Date End Date Karo Otero MD [address] [place] [address] PCP - General Family Medicine 02/11/17 03/19/23 documented as of this encounter
--- OUTSIDE RECORDS SUMMARY | 2024-06-30 12:29 | XMS_ITS | Encounter Summary ---
Author Organization [facility] [place] [address] Care Team Providers Care Service Observer Chief Name Role Phone Karo Otero MD Primary Care Provider [phone] Reason for Referral * Consultation (Routine) - Specialty Diagnoses / Procedures Referred By Contact Referred To Contact Cardiac Rehabilitation Diagnoses Non-ST elevation myocardial infarction (NSTEMI) Dick Renteria MD [facility] [place] [address] Cardiac Rehab, [address] [place] [address] Referral ID Status Reason Start Date Expiration Date V isits Requested Visits Authorized [id number] Consult, Test & Treat 11/20/2017 05/19/2018 36 36 Reason for Visit * Auth/Cert Specialty Diagnoses / Procedures Referred By Contac t Referred To Contact Diagnoses NSTEMI (non-ST elevated myocardial infarction) [place], CP ?CAD Procedures CARDIAC CATHETERIZATION PHOEBE IPI Referral ID Status Reason Start Date Expiration Date Visits Re quested Visits Authorized [id number] 1 1 Encounter Details Date Type Department Care Team (Latest Contact Info) Description 11/18/2017 8:11 PM EDT - 11/20/2017 10:59 AM EDT Hospital Encounter Intermediate [place] [phone] Sumeet Chiang MD [facility] [place] [address] Dick Renteria MD [facility] [place] [address] Non-ST elevation myocardial infarction (NSTEMI) Discharge Disposition: [...] Brothers III Patient Age: 76 y.o. Language: Yoruba Race: White Ethnicity: OR Admit date: 11/18/2017 [...] synthroid Inpatient Provider Contact Information: Lara Bass, CHIEF STRATEGY OFFICER Discharge Diagnoses (Hospital Problems) and Secondary Diagnoses [...] Brothers is a 76-year-old gentleman, transferred from [facility], with no known CAD, PMH of hypertension, [...] course: ECG : NSR, normal axis, prolonged RI, J-point elevation in V2 less than 1mm. [...] and Echo 5 yrs ago ( in [place] ), tests done prior to Knee Hemiarthroplasty ?? Hospital Course: On admission to [facility], the patient had no complaints of chest pain or shortness of breath. Telemetry was attached which showed normal sinus rhythm. Heparin drip was infusing. [facility] records/transfer records were reviewed. Baseline labs were checked and/or drawn. NSTEMI Patient sent from [facility] in the setting of chest pain with [...] appointments: During 8am-5pm Friday through Friday call [phone] to speak with a nurse in the cardiology clinic All other times call [phone] and ask to speak to the contact center agent calibration tester. Return to work: Retired, no heavy lifting for one week (nothing greater than 5-7 lbs). Driving: No driving for 48 hours after catheterization. Follow up Appointments: PCP Karo Otero MD [phone] Your follow up appointment is scheduled for November 26, 2017 at 10:35 am (previously scheduled) Cardiology - Dr. Sukh Mishra [address] [place] [address], [place] [address] Your follow up appointment is scheduled for December 30, 2017 at 8:20 am (8 am arrival). Home oxygen therapy: N/A Arrangements for VNA/home care: none Future Appointments and Orders Future Appointments Provider Department Dept Phone 12/30/2017 8:20 AM Sukh Mishra Jr., MD Cardiology at [place] [phone] 08/14/2018 8:45 AM Mathew Fernando MD Dermatology at [place] [phone] Future Orders Complete By Expires Referral to Cardiac Rehab [[id number] Custom] As directed Process Instructions: If no progress note charted, please enter Clinical details in comments. Scheduling Instructions: Questions: My question or request is: NSTEMI. Cardiac rehab at [facility]. Discharge References/Attachments Jasmin Bass APRN 11/20/2017 documented in this encounter Discharge Instructions * Discharge Instructions* Lara Bass APRN - 11/20/2017 9:22 AM EDT Anti-coagulation follow up: N/A Call your doctor if: Chest pain, shortness of breath, pain or swelling in legs occurs. If you have non-emergent questions between now and the time of your follow up appointments: During 8am-5pm Friday through Friday call [phone] to speak with a nurse in the cardiology clinic All other times call [phone] and ask to speak to the contact center agent calibration tester. Return to work: Retired, no heavy lifting for one week (nothing greater than 5-7 lbs). Driving: No driving for 48 hours after catheterization. Follow up Appointments: PCP Karo Otero MD [phone] Your follow up appointment is scheduled for November 26, 2017 at 10:35 am (previously scheduled) Cardiology - Dr. Sukh Mishra [address] [place] [address], [place] [address] Your follow up appointment is scheduled for December 30, 2017 at 8:20 am (8 am arrival). Home oxygen therapy: N/A Arrangements for VNA/home care: none documented in this encounter Medications at Time of Discharge Medication Sig Dispensed Refills Start Date End Date amoxicillin (AMOXIL) 500 mg Capsule 2,000 mg [...] Take 81 mg by mouth daily. 12/04/2022 buPROPion (WELLBUTRIN SR OR ZYBAN) 150 mg Tablet Sustained Release 12 hr take 1 tablet by mouth twice a day 0 12/23/2016 04/05/2024 losartan-hydrochlorothi azide (HYZAAR) 100-25 mg Tablet Take [...] included. Inpatient Cardiology Progress Note Patient Name: [facility] Service: AUTO REPAIR TECHNICIAN / PA Responsible Attending: Dick Renteria MD [...] ??? sodium chloride 0.9% 100 mL/hr (11/18/17 8954) PRN Meds:sodium chloride 0.9 %, lidocaine, sodium [...] is a 76 y.o. male transferred from [facility], with no known CAD, PMH of hypertension, HLD, CKD stage 3 who was transferred to [facility] in the setting of chest pain with elevated troponin. EKG without acute changes. He has had no further episodes since arrival to [facility]. Patient sent for coronary angiography on 11/19 [...] Discussed with Dick Renteria MD Lara Waggonerleena, CHIEF STRATEGY OFFICER 11/20/2017 Cardiology Staff Addendum I have discussed, [...] PCI with 3.0 x 15 mm Resolute [place] JENNI No significant disease in RCA LVEDP [...] Note Patient Name: Tra Brothers III Service: AUTO REPAIR TECHNICIAN / PA Responsible Attending: Dick Renteria MD [...] been chest pain free since arrival to [facility]. NPO for cardiac catheterization today. Review of [...] is a 76 y.o. male transferred from [facility], with no known CAD, PMH of hypertension, HLD, CKD stage 3 who was transferred to [facility] in the setting of chest pain with elevated troponin. EKG without acute changes. He has had no further episodes since arrival to [facility]. Awaiting cardiac catheterization at this time. Plan: [...] Pre- cath fluids Full Code Lara Bass, CHIEF STRATEGY OFFICER 11/19/2017 Cardiology Staff Addendum I have discussed, [...] Brothers is a 76-year-old gentleman, transferred from [facility], with no known CAD, PMH of hypertension, [...] course: ECG : NSR, normal axis, prolonged RI, J-point elevation in V2 less than 1mm. 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 Pulses palpable, no calf tenderness Neuro/WHITING MACHINE OPERATOR: AAO x 3, No evident deficits Skin/Integumentary: [...] responsive. ECG : NSR, normal axis, prolonged RI, J-point elevation in V2 less than 1mm. [...] a referral for outpatient cardiac rehab at [facility]. The referral will be sent to [facility] at discharge. Activity Summary: By discharge, patient [...] Outcome: Ongoing (Interventions Implemented as Appropriate) 11/20/17 2739 Individualization Patient Specific Goals I need some [...] Control Outcome: Ongoing (Interventions Implemented as Appropriate) 11/19/17213911/20/17200 Coping Strategies Supportive Measures active listening utilized;decision-making [...] for doing Advance Directives. Provided copy(ies) of [place] [employer] Advance Directives Taking Steps booklet [...] Specific Information: none Health/Prescription Coverage: Primary Insurance: [employer] MANAGED MEDICARE Secondary Insurance: N/A Prescription Coverage: yes Preferred Pharmacy: [facility] Primary Care Provider: Karo Otero MD [phone] Patient/Caregiver Goals of Treatment: discharge to home [...] of care planning. Susana Henning RN Pager: [phone] * Consult Note - Medina Krueger RN [...] in an outpatient cardiac rehabilitation program at [facility] was discussed. Patient agrees to a referral [...] Heparin gtt infusing. Had one episode of /10 chest pain. Described as a twinge. Zully [...] further details. Reagan Andrea MD 11/18/2017 Pager [phone] documented in this encounter Plan of Treatment Upcoming Encounters Date Type Department Care Team (Late st Contact Info) Description 10/07/2024 3:00 PM EST Office Visit Cardiology at [address] [place] [phone] Joel Link MD [facility] [place] [address] 01/18/2025 10:15 AM EDT Office Visit Dermatology at [address] [place] [phone] Mathew Fernando MD [address] [place] [address], [place] [address] Scheduled Referrals Name Type Priority Associated Diagnoses Orde r Schedule Referral to Cardiac Rehab Outpatient Referral Routine Non-ST elevation myocardial infarction (NSTEMI) Ordered: 11/20/2017 documented as of this encounter Procedures Procedure Name Priority Date/Time Associated Diagnosis Comments MEAT PACKAGER SCAN 11/21/2017 12:00 AM EDT BMP W/FASTING GLUCOSE Routine 11/20/2017 4:22 AM EDT HEMOGRAM Routine 11/20/2017 4:22 AM EDT DIFFERENTIAL, AUTOMATED Routine 11/21/19 4:22 AM EDT CARDIAC ENZYMES ([facility]/CGP) Routine 11/20/2017 4:22 AM EDT CBC (WITH [...] Routine 11/19/2017 8:39 AM EDT CARDIAC ENZYMES ([facility]/CGP) STAT 11/19/2017 8:39 AM EDT XR CHEST ONE VIEW Routine 11/19/2017 6:3 1 AM EDT HEPARIN (UNFRACTIONATED) LEVEL Routine 11/19/2017 2:25 AM EDT HEMOGRAM Routine 11/19/2017 2:25 AM EDT DIFFERENTIAL, AUTOMATED Routine 11/20/19 18 2:25 AM EDT CARDIAC ENZYMES ([facility]/CGP) STAT 11/19/2017 2:25 AM EDT CBC (WITH DIFF) Routine 11/19/2017 2:25 AM EDT HEMOGLOBIN A1C Routine 11/19/2017 2:25 AM EDT LIPID PANEL (REFLEX DIRECT LDL) Routine 11/19/2017 2:25 AM EDT BASIC METABOLIC PANEL Routine 11/19/2017 2:25 AM EDT EKG 12-LEAD STAT 11/18/2017 11:57 PM EDT Non-ST elevation myocardial infarction (NSTEMI) HEPARIN (UNFRACTIONATED) LEVEL STAT 11/18/2017 8:33 PM EDT HEMOGRAM STAT 11/18/2017 8:33 PM EDT DIFFERENTIAL, AUTOMATED STAT 11/19/19 18 8:33 PM EDT CARDIAC ENZYMES ([facility]/CGP) STAT 11/18/2017 8:33 PM EDT APTT STAT 11/18/2017 8:33 PM EDT PROTHROMBIN TIME STAT 11/18/2017 8:33 PM EDT CBC (WITH DIFF) STAT 11/18/2017 8:33 PM EDT PRO-BRAIN NATRIURETIC PEPTIDE STAT 11/18/2017 8:33 PM EDT HEPATIC FUNCTION PANEL STAT 8 8:33 PM EDT BASIC METABOLIC PANEL STAT 11/18/2017 8:33 PM EDT EKG 12-LEAD STAT 11/18/2017 8:26 PM EDT Non-ST elevation myocardial infarction (NSTEMI) documented in this encounter Results * SCAN DOC: MEAT PACKAGER (11/21/2017 12:00 AM EDT) Anatomical Region Laterality Modality Other Narrative 11/21/2017 12:00 AM EDT Ordered by an unspecified provider. Scanning Provider MEDIA MGR SCAN EXT O RDR/RSLT * T4, free (11/20/2017 4:22 AM EDT) Free T4 1.16 0.93 - 1.70 ng/dL [facility] Blood specimen (specimen) Venous Draw / Unknown 11/20/2017 4:22 AM EDT 11/20/2017 4:39 AM EDT Narrative Resulting Agency Comment Spec In Lab Lara Aguero APRN CHEMISTRY ORDERABLES Performing Organization Address City/[facility]/ZIP Co de Phone Number [facility] [place] [address] * T3, free (11/20/2017 4:22 AM EDT) Free T3 2.6 2.0 - 4.4 pg/mL [facility] Blood specimen (specimen) Venous Draw / Unknown 11/20/2017 4:22 AM EDT 11/20/2017 4:39 AM EDT Narrative Resulting Agency Comment Spec In Lab Lara Natalie Aguero APRN CHEMISTRY ORDERABLES Performing Organization Address City/[facility]/ZIP Co de Phone Number [facility] [place] [address] * (ABNORMAL) TSH (11/20/2017 4:22 AM EDT) Thyroid Stimulating Hormone 6.29(H) 0.27 - 4.20 mlU/ML [facility] Blood specimen (specimen) Venous Draw / Unknown 11/20/2017 4:22 AM EDT 11/20/2017 4:39 AM EDT Narrative Resulting Agency Comment Spec In Lab Lara Aguero CHIEF STRATEGY OFFICER CHEMISTRY ORDERABLES [facility] [place] [address] * Differential, Automated (11/20/2017 4:22 AM EDT) Neutrophil % 59.0 % [facility] Neutrophil Absolute 3.72 1.70 - 6.10 x10(3)/[facility] Lymph % 27.5 % [facility] Lymphocytes Abs 1.7 0.9 - 3.2 x10(3)/[facility] Monocyte % 9.4 % [facility] Monocyte Abs 0.6 0.3 - 0.9 x10(3)/[facility] Eos % 3.0 % [facility] Eosinophils Abs 0.2 0.0 - 0.4 x10(3)/[facility] Basophil % 0.8 % [facility] Baso Absolute 0.0 0.0 - 0.1 x10(3)/[facility] Immature Gran % 0.30 % [facility] Comment: Immature granulocytes(IG's)percentage and absolute count will include metamyelocytes, myelocytes, and promyelocytes. Blood smears from CBCs yielding IG's will be scanned manually for concordance. If this scan disagrees with the automated IG or if promyelocytes are noted, a manual differential will be performed. Immature Gran Absolute 0.02 0.00 - 0.04 x10(3)/[facility] Blood specimen (specimen) 11/20/2017 4:22 AM EDT 11/20/2017 4:37 AM EDT Narrative Resulting Agency Comment Spec In Lab Reagan Andrea MD HEMATOLOGY ORDERABLE S [facility] [place] [address] * (ABNORMAL) Hemogram (11/20/2017 4:22 AM EDT) White Blood Cell 6.3 4.0 - 9.5 x10(3)/mc L [facility] Red Blood Cell 4.56(L) 4.58 - 5.54 x10(6)/mc L [facility] Hemoglobin 13.3(L) 13.7 - 16.5 gm/dL [facility] Hematocrit 40.0(L) 40.5 - 48.5 % [facility] Mean Cell Volume 87.7 82.9 - 93.1 fL [facility] Mean Cell Hemoglobin 29.2 27.5 - 32.1 pg [facility] Mean Cell Hemoglobin Concentration 33.3 32.0 - 35.7 gm/dL [facility] Platelet 135(L) 145 - 357 x10(3)/mc L [facility] RDW Standard Deviation 42.9 36.0 - 45.0 [facility] RDW coefficient of variation 13.2 11.4 - 13.8 % [facility] Mean Platelet Volume 10.5 7.6 - 12.9 fL [facility] NRBC% auto 0.0 % [facility] NRBC Absolute 0.000 0.000 - 0.000 x10(3)/mc L [facility] Blood specimen (specimen) 11/20/2017 4:22 AM EDT 11/20/2017 4:37 AM EDT Narrative Resulting Agency Comment Spec In Lab Reagan Andrea MD HEMATOLOGY ORDERABLE S [facility] [place] [address] * (ABNORMAL) BMP w/fasting Glucose (11/20/2017 4:22 AM EDT) [facility] Signature Glucose Fasting 101(H) 65 - 99 mg/dL [facility] Comment: ?Fasting* Glucose Interpretive Criteria Normal [...] of Diabetes Mellitus, Position Statement from the [place] Diabetes Association. ??Diabetes Care, Volume 33, Supplement 1, Aug 2009 Blood Urea Nitrogen 20 10 - 20 mg/dL [facility] Creatinine 1.54(H) 0.80 - 1.50 mg/dL [facility] Sodium 144 135 - 145 mmol/L [facility] Potassium 4.3 3.5 - 5.0 mmol/L [facility] Comment: Please note: ??Patients with WBC >100,000 may have falsely elevated Potassium levels. ??For accurate Potassium quantification in these patients send serum separator tube (gold top) for subsequent determinations. ??Contact the Clinical Chemistry Laboratory if there are any questions. Chloride 104 98 - 107 mmol/L [facility] Carbon Dioxide 22 22 - 31 mmol/L [facility] Anion Gap 18(H) 5 - 15 mmol/L [facility] Calcium 8.9 8.5 - 10.5 mg/dL [facility] Est Glomerular Filtration Rate 44(L) >=60 [facility] Comment: The reported eGFR should be multiplied by 1.2 for patients. The MDRD is not an appropriate measure of renal function for patients with body mass extremes or in patients with acute kidney failure. http://Invajo/DHnkdep [email or web address]://Invajo/DHMCnkf Blood specimen (specimen) 11/20/2017 4:22 AM EDT 11/20/2017 4:37 AM EDT Narrative Resulting Agency Comment Spec In Lab Lara Aguero [place] CHEMISTRY ORDERABLES [facility] [place] [address] * (ABNORMAL) Cardiac Enzymes (LEB/CGP) (11/20/2017 4:22 AM EDT) Troponin-T 0.16(H) 0.00 - 0.00 ng/mL [facility] Comment: The 99th percentile for Troponin T is less than 0.01 ng/mL, any detectable cTnT concentration using this assay should be considered elevated. According to the third universal definition of myocardial infarction the following criteria with a clinical presentation consistent with acute myocardial ischemia meets the diagnosis for a myocardial infarction (VT). Detection of a rise and/or fall of cTnT, with at least one value greater than the 99th percentile (> or = 0.01) and with at least one of the following ?? Symptoms of ischemia ?? New or presumed new significant HQ-twjtpyd-C wave (ST-T) changes or new left bundle [...] additional sample may be indicated. Reference: Third [place] Definition of Myocardial Infarction. Journal of the [place] College of Cardiology 2012;60:1581-98 Creatine Kinase 127 0 - 200 unit/L [facility] Blood specimen (specimen) 11/20/2017 4:22 AM EDT 11/20/2017 4:37 AM EDT Narrative Resulting Agency Comment Spec In Lab Julita Gomez MD CHEMISTRY ORDERAB LES Performing Organization Address [facility] [place] [address] * EKG 12 Lead (11/19/2017 10:46 AM EDT) Ventricular rate 51 BPM MUSE SYSTEM Atrial Rate 51 BPM MUSE SYSTEM P-R Interval 220 ms MUSE SYSTEM QRS Duration 80 ms MUSE SYSTEM Q-T Interval 504 ms MUSE SYSTEM QTC Calculated (Bezet) 464 ms MUSE SYSTEM Calculated P Downey 24 degrees MUSE SYSTEM Calculated R Downey -3 degrees MUSE SYSTEM Calculated T Downey 69 degrees MUSE SYSTEM INTERPRETATION Sinus bradycardia with 1st degree A-V block Otherwise normal ECG When compared with ECG of 18-NOV-2017 23:57, No significant change was found Confirmed by MD JOHN, BERTHA ([id number]) on 11/19/2017 8:29:14 PM MUSE SYSTEM 11/19/2017 10:4 6 AM EDT 11/19/2017 8:29 PM EDT Julita Gomez MD ECG ORDERABLES Performing Organization Address [facility] Co de Phone Number MUSE SYSTEM * CARDIAC CATHETERIZATION (11/19/2017 10:25 AM EDT) Anatomical Region Laterality Modality Other Narrative 11/19/2017 12:31 PM EDT ?[facility] ? Cardiac Catheterization/Intervention Report ? Patient Name: Garges, Tra ? Procedure Date: 11/19/2017 ? A #: [id number] ? Primary Physician: Julita Gomez ? Case #: [id number] ? File Name: [id number] ? Catheterization Order Number: [id number] ? [facility] ? Final Report [place], [place] ? Patient Name: ? Tra Garges ?ID#: ?[id number] ? : ?1940 ? Procedure Date: ? [...] patient presented with: non-STEMI (w/i 7 days). [place] ?Cardiovascular Society angina class was IV. No [...] dose administered prior to arrival in the qc lab technician. ?Recommend continuing clopidogrel 75 mg PO [...] Procedure Note Julita Gomez MD - 11/19/2017 [facility] Cardiac Catheterization/Intervention Report Patient Name: Tra Brothers Procedure Date: 11/19/2017 A #: [id number] Primary Physician: Julita Gomez Case #: [id number] File Name: [id number] Catheterization Order Number: [id number] [facility] FinalReport [place], [place] Patient Name: Tra Brothers ID#:[id number] :1940 Procedure Date: November 19, 2017 Case [...] patient presented with: non-STEMI (w/i 7 days). [place] Cardiovascular Society angina class was IV. No [...] 13.6 minutes, dose area product was 96,350 lVGec2hnc air kerma was 793 mGY. The patient [...] The lesion was predilated with a 2.50mm [id number] MM balloon with a maximum inflation pressure [...] The lesion was predilated with a 2.50mm [id number] MM balloon with a maximum inflation pressure of 12atmospheres. A premounted 3.00 x 22 mm Resolute MONO (JENNI) wasdeployed with a [...] dose administered prior to arrival in the qc lab technician. Recommend continuing clopidogrel 75 mg PO [...] COMPLETE (11/19/2017 9:07 AM EDT) EF 63 [employer] SYSTEM Anatomical Region Laterality Modality Other 11/19/2017 Narrative 11/19/2017 9:51 AM EDT Procedure: ?Transthoracic Echocardiogram Patient: ?DENEEN GALLARDO ? (Age): 1940(76y) Med Rec#: ? [id number] ?Sex: ?M ? Site Loc: ? [facility] ?Ht / Wt: ??180(cm)/97(kg) Pt. Loc: ?Adult Floor ? BSA: ?2.17 Study Date: ?? 11/19/2017 ?Pt. Type: Inpatient Tape: ? Referring: NORRIS DELEON J Reading: Rustam Dave ([id number]) Warping Machine Operator: Andrea Esparza [facility] Diagnosis: *ICD-10-PCS Non-ST elevation (NSTEMI) myocardial infarction [...] E-wave Vmax ?0.7 ?m/sec ? MV deceleration [id number] ?msec ? MV A-wave Vmax ?0.8 ?m/sec [...] ? Mid-Inferior ?Normal ? Mid-Inferoseptal ?Normal ? [place]-Septal ? Normal ? [place]-Anterior ? Normal ? [place]-Lateral ?Normal ? [place]-Inferior ? Normal ? [place]-Tip ?Normal ? This report has been electronically signed by: Rustam Dave M.D. ? 11/19/2017 09:50:55 Images reviewed and interpretation verified [facility] Cardiac Ultrasound Laboratory Procedure Note Rustam Dave MD - 11/19/2017 Procedure: Transthoracic Echocardiogram Patient: DENEEN WISDOM(Age): 1940(76y) Med Rec#: [id number] Sex: M Site Loc: [facility] Ht / Wt: 180(cm)/97(kg) Pt. Loc: Adult Floor BSA: 2.17 Study Date: 11/19/2017 Pt. Type: Inpatient Tape: Referring: NORRIS DELEON J Reading: Rustam Dave ([id number]) Warping Machine Operator: Andrea Esparza [facility] Diagnosis: *ICD-10-PCS Non-ST elevation (NSTEMI) myocardial infarction [...] MV E-wave Vmax 0.7 m/sec MV deceleration [id number] msec MV A-wave Vmax 0.8 m/sec MV [...] Normal Mid-Posterolateral Akinetic Mid-Inferior Normal Mid-Inferoseptal Normal [place]-Septal Normal [place]-Anterior Normal [place]-Lateral Normal [place]-Inferior Normal [place]-Tip Normal This report has been electronically signed by: Rustam Dave M.D. 11/19/2017 09:50:55 Images reviewed and interpretation verified [facility] Cardiac Ultrasound Laboratory Reagan Andrea MD ECHO ORDERABLES * Heparin (unfractionated) Level (11/19/2017 8:39 AM EDT) UF Heparin 0.45 IU/mL [facility] Comment: Guidelines for therapeutic unfractionated [...] Lab Reagan Andrea MD HEMATOLOGY ORDERABLE S [facility] [place] [address] * (ABNORMAL) Cardiac Enzymes (LEB/CGP) (11/19/2017 8:39 AM EDT) Troponin-T 0.04(H) 0.00 - 0.00 ng/mL [facility] Comment: The 99th percentile for Troponin T is less than 0.01 ng/mL, any detectable cTnT concentration using this assay should be considered elevated. According to the third universal definition of myocardial infarction the following criteria with a clinical presentation consistent with acute myocardial ischemia meets the diagnosis for a myocardial infarction (VT). Detection of a rise and/or fall of cTnT, with at least one value greater than the 99th percentile (> or = 0.01) and with at least one of the following ?? Symptoms of ischemia ?? New or presumed new significant KZ-cgafdkv-Q wave (ST-T) changes or new left bundle [...] additional sample may be indicated. Reference: Third [place] Definition of Myocardial Infarction. Journal of the [place] College of Cardiology 2012;60:1581-98 Creatine Kinase 105 0 - 200 unit/L [facility] Blood specimen (specimen) 11/19/2017 8:39 AM EDT 11/19/2017 8:51 AM EDT Narrative Resulting Agency Comment Spec In Lab Reagan Andrea MD CHEMISTRY ORDERABLES [facility] [place] [id number] * XR Chest PA or AP 1 [...] Heparin (unfractionated) Level (11/19/2017 2:25 AM EDT) UF Heparin 0.44 IU/mL [facility] Comment: Guidelines for therapeutic unfractionated [...] MD HEMATOLOGY ORDERABLE S Performing Organization Address City/State/[facility] Co de Phone Number [facility] [place] [address] * Differential, Automated (11/19/2017 2:25 AM EDT) Neutrophil % 59.0 % [facility] Neutrophil Absolute 3.68 1.70 - 6.10 x10(3)/[facility] Lymph % 28.0 % [facility] Lymphocytes Abs 1.8 0.9 - 3.2 x10(3)/[facility] Monocyte % 10.3 % [facility] Monocyte Abs 0.6 0.3 - 0.9 x10(3)/[facility] Eos % 1.8 % [facility] Eosinophils Abs 0.1 0.0 - 0.4 x10(3)/[facility] Basophil % 0.6 % [facility] Baso Absolute 0.0 0.0 - 0.1 x10(3)/[facility] Immature Gran % 0.30 % [facility] Comment: Immature granulocytes(IG's)percentage and absolute count will include metamyelocytes, myelocytes, and promyelocytes. Blood smears from CBCs yielding IG's will be scanned manually for concordance. If this scan disagrees with the automated IG or if promyelocytes are noted, a manual differential will be performed. Immature Gran Absolute 0.02 0.00 - 0.04 x10(3)/[facility] Blood specimen (specimen) 11/19/2017 2:25 AM EDT 11/19/2017 2:40 AM EDT Narrative Resulting Agency Comment Spec In Lab Reagan Andrea MD HEMATOLOGY ORDERABLE S [facility] [place] [address] * (ABNORMAL) Hemogram (11/19/2017 2:25 AM EDT) White Blood Cell 6.2 4.0 - 9.5 x10(3)/[facility] Red Blood Cell 4.65 4.58 - 5.54 x10(6)/[facility] Hemoglobin 13.5(L) 13.7 - 16.5 gm/dL [facility] Hematocrit 40.4(L) 40.5 - 48.5 % [facility] Mean Cell Volume 86.9 82.9 - 93.1 fL [facility] Mean Cell Hemoglobin 29.0 27.5 - 32.1 pg [facility] Mean Cell Hemoglobin Concentration 33.4 32.0 - 35.7 gm/dL [facility] Platelet 156 145 - 357 x10(3)/[facility] RDW Standard Deviation 41.2 36.0 - 45.0 fL [facility] RDW coefficient of variation 13.1 11.4 - 13.8 % [facility] Mean Platelet Volume 10.6 7.6 - 12.9 fL [facility] NRBC% auto 0.0 % [facility] NRBC Absolute 0.000 0.000 - 0.000 x10(3)/mc L [facility] Blood specimen (specimen) 11/19/2017 2:25 AM EDT 11/19/2017 2:40 AM EDT Narrative Resulting Agency Comment Spec In Lab Reagan Andrea MD HEMATOLOGY ORDERABLE S [facility] [place] [address] * Hemoglobin A1c (11/19/2017 2:25 AM EDT) Hemoglobin A1c 5.4 4.3 - 5.6 % [facility] Comment: Reference Range: 4.3 - 5.6% [...] Mellitus, Diabetes Care 2013; 36: Suppl. 1, D83-12 Estimated Average Glucose See note mg/dL [facility] Comment: Estimated Average Glucose not appropriate [...] into estimated average glucose values. ??Diabetes Care 2008:31(8):5389-2001. Blood specimen (specimen) 11/19/2017 2:25 AM EDT 11/19/2017 2:40 AM EDT Narrative Resulting Agency Comment Spec In Lab Reagan Andrea MD CHEMISTRY ORDERABLES [facility] [place] [address] * (ABNORMAL) Basic Metabolic Panel (non-fasting) (11/19/2017 2:25 AM EDT) Glucose 99 65 - 199 mg/dL [facility] Comment:Diabetes: >=200 mg/d L plus symptoms Blood Urea Nitrogen 25(H) 10 - 20 mg/dL [facility] Creatinine 1.56(H) 0.80 - 1.50 mg/dL [facility] Sodium 138 135 - 145 mmol/L [facility] Potassium 3.8 3.5 - 5.0 mmol/L [facility] Comment: Please note: ??Patients with WBC >100,000 may have falsely elevated Potassium levels. ??For accurate Potassium quantification in these patients send serum separator tube (gold top) for subsequent determinations. ??Contact the Clinical Chemistry Laboratory if there are any questions. Chloride 103 98 - 107 mmol/L [facility] Carbon Dioxide 26 22 - 31 mmol/L [facility] Anion Gap 9 5 - 15 mmol/L [facility] Calcium 8.7 8.5 - 10.5 mg/dL [facility] Est Glomerular Filtration Rate 43(L) >=60 [facility] Comment: The reported eGFR should be multiplied by 1.2 for patients. The MDRD is not an appropriate measure of renal function for patients with body mass extremes or in patients with acute kidney failure. http://Invajo/DHnkdep [email or web address]://[email or web address]/DHMCnkf Blood specimen (specimen) 11/19/2017 2:25 AM EDT 11/19/2017 2:40 AM EDT Narrative Resulting Agency Comment Spec In Lab Reagan Andrea MD CHEMISTRY ORDERABLES [facility] [place] [address] * Lipid Panel (11/19/2017 2:25 AM EDT) Cholesterol, Total 158 mg/dL [facility] Comment: Lower Risk: <200 mg/dL Average Risk: 200-239 mg/dL Higher Risk: >au=680 mg/dL Triglyceride 96 mg/dL [facility] Comment: Average Risk/Lower Risk: <150 mg/dL Borderline High Risk: 150-199 mg/dL High Risk: 200-499 mg/dL Very High Risk: >be=798 mg/dL HDL Cholesterol 53 mg/dL [facility] Comment: Males: ?? Higher Risk: <40 mg/dL Females: ?? HIgher Risk: <50 mg/dL LDL Cholesterol 86 mg/dL [facility] Comment: Lowest Risk: <100 mg/dL Lower Risk: 100-129 mg/dL Borderline High Risk: 130-159 mg/dL High Risk: 160-189 mg/dL Very High Risk: >vd=495 mg/dL Cholesterol/HDL Ratio 3.0 ratio [facility] Lipid Interpretation See Note [facility] Comment: Lipid management should be guided by a patient? s ASCVD risk, goals and preferences. ACC/AHA Guidelines recommend high intensity statin if clinical ASCVD or LDL greater than or equal to 190 mg/dL. http://[employer]/SCW-BWW-Ucnyfmlzr Adults aged 40-75 with LDL 70-189 mg/dL should have their 10 year ASCVD risk estimated with the ACC/AHA ASCVD risk spanish linguist http://tools.acc.org/WABWT-Izkf-Nsrijkyei/ Statin should be discussed if risk greater [...] In Lab Reagan Andrea MD CHEMISTRY ORDERABLES [facility] [place] [address] * (ABNORMAL) Cardiac Enzymes (LEB/CGP) (11/19/2017 2:25 AM EDT) Troponin-T 0.05(H) 0.00 - 0.00 ng/mL [facility] Comment: The 99th percentile for Troponin T is less than 0.01 ng/mL, any detectable cTnT concentration using this assay should be considered elevated. According to the third universal definition of myocardial infarction the following criteria with a clinical presentation consistent with acute myocardial ischemia meets the diagnosis for a myocardial infarction (VT). Detection of a rise and/or fall of cTnT, with at least one value greater than the 99th percentile (> or = 0.01) and with at least one of the following ?? Symptoms of ischemia ?? New or presumed new significant TG-qhuinwp-D wave (ST-T) changes or new left bundle [...] additional sample may be indicated. Reference: Third [place] Definition of Myocardial Infarction. Journal of the [place] College of Cardiology 2012;60:1581-98 Creatine Kinase 104 0 - 200 unit/L [facility] Blood specimen (specimen) 11/19/2017 2:25 AM EDT 11/19/2017 2:41 AM EDT Narrative Resulting Agency Comment Spec In Lab Reagan Andrea MD CHEMISTRY ORDERABLES Performing Organization Address [facility] Co de Phone Number [facility] [place] [address] * EKG 12 Lead (11/18/2017 11:57 PM EDT) Ventricular rate 58 BPM MUSE SYSTEM Atrial Rate 58 BPM MUSE SYSTEM P-R Interval 226 ms MUSE SYSTEM QRS Duration 86 ms MUSE SYSTEM Q-T Interval 450 ms MUSE SYSTEM QTC Calculated (Bezet) 441 ms MUSE SYSTEM Calculated P Downey 33 degrees MUSE SYSTEM Calculated R Downey 2 degrees MUSE SYSTEM Calculated T Downey 66 degrees MUSE SYSTEM INTERPRETATION Sinus bradycardia with 1st degree A-V block Otherwise normal ECG When compared with ECG of 18-NOV-2017 20:26, (unconfirmed) No significant change was found Confirmed by MD ENCISO ALAN ([id number]) on 11/19/2017 10:16:27 AM MUSE SYSTEM 11/18/2017 11:5 7 PM EDT 11/19/2017 10:16 AM EDT Reagan Andrea MD ECG ORDERABLES Performing Organization Address [facility] Co de Phone Number MUSE SYSTEM * Heparin (unfractionated) Level (11/18/2017 8:33 PM EDT) UF Heparin 0.66 IU/mL [facility] Comment: Guidelines for therapeutic unfractionated [...] MD HEMATOLOGY ORDERABLE S Performing Organization Address City/State/[facility] Co de Phone Number [facility] [place] [address] * Differential, Automated (11/18/2017 8:33 PM EDT) Neutrophil % 62.8 % [facility] Neutrophil Absolute 5.08 1.70 - 6.10 x10(3)/[facility] Lymph % 25.8 % [facility] Lymphocytes Abs 2.1 0.9 - 3.2 x10(3)/[facility] Monocyte % 8.7 % [facility] Monocyte Abs 0.7 0.3 - 0.9 x10(3)/[facility] Eos % 1.5 % [facility] Eosinophils Abs 0.1 0.0 - 0.4 x10(3)/[facility] Basophil % 0.7 % [facility] Baso Absolute 0.1 0.0 - 0.1 x10(3)/[facility] Immature Gran % 0.50 % [facility] Comment: Immature granulocytes(IG's)percentage and absolute count will include metamyelocytes, myelocytes, and promyelocytes. Blood smears from CBCs yielding IG's will be scanned manually for concordance. If this scan disagrees with the automated IG or if promyelocytes are noted, a manual differential will be performed. Immature Gran Absolute 0.04 0.00 - 0.04 x10(3)/[facility] Blood specimen (specimen) 11/18/2017 8:33 PM EDT 11/18/2017 8:52 PM EDT Narrative Resulting Agency Comment Spec In Lab Reagan Andrea MD HEMATOLOGY ORDERABLE S [facility] [place] [address] * Hemogram (11/18/2017 8:33 PM EDT) White Blood Cell 8.1 4.0 - 9.5 x10(3)/[facility] Red Blood Cell 5.15 4.58 - 5.54 x10(6)/[facility] Hemoglobin 14.8 13.7 - 16.5 gm/dL [facility] Hematocrit 44.9 40.5 - 48.5 % [facility] Mean Cell Volume 87.2 82.9 - 93.1 fL [facility] Mean Cell Hemoglobin 28.7 27.5 - 32.1 pg [facility] Mean Cell Hemoglobin Concentration 33.0 32.0 - 35.7 gm/dL [facility] Platelet 189 145 - 357 x10(3)/[facility] RDW Standard Deviation 41.7 36.0 - 45.0 [facility] RDW coefficient of variation 13.2 11.4 - 13.8 % [facility] Mean Platelet Volume 10.5 7.6 - 12.9 fL [facility] NRBC% auto 0.0 % [facility] NRBC Absolute 0.000 0.000 - 0.000 x10(3)/mcL [facility] Blood specimen (specimen) 11/18/2017 8:33 PM EDT 11/18/2017 8:52 PM EDT Narrative Resulting Agency Comment Spec In Lab Reagan Andrea MD HEMATOLOGY ORDERABLE S Performing Organization Address [facility] Co de Phone Number [facility] [place] [address] * (ABNORMAL) APTT (11/18/2017 8:33 PM EDT) Partial Thromboplastin Time 105(Criti john) 25 - 37 sec [facility] Comment: Called by: [facility], Read back by: Kira Clemons, Date/Time:11/18/17 21:20. [...] HEMATOLOGY ORDERABLE S Performing Organization Address [facility] Co de Phone Number [facility] [place] [address] * Prothrombin Time (11/18/2017 8:33 PM EDT) Prothrombin Time 11.2 9.4 - 12.5 sec [facility] International Normalization Ratio 1.0 [facility] Comment: An [...] MD HEMATOLOGY ORDERABLE S Performing Organization Address City/[facility]/ZIP Co de Phone Number [facility] [place] [address] * pro-Brain Natriuretic Peptide (11/18/2017 8:33 PM EDT) Pathologist [facility] [place] NT-proBNP 431 <=450 pg/mL [facility] Blood specimen (specimen) 11/18/2017 8:33 PM EDT 11/18/2017 8:52 PM EDT Narrative Resulting Agency Comment Spec In Lab Reagan Andrea MD CHEMISTRY ORDERABLES Performing Organization Address [facility] Co de Phone Number [facility] [address] * Hepatic Function Panel (11/18/2017 8:33 PM EDT) Pathologist [facility] [place] Protein, Total 7.1 6.1 - 8.0 gm/dL [facility] Albumin 4.3 3.2 - 5.2 gm/dL [facility] Aspartate Aminotransferase 30 0 - 39 unit/L [facility] Alanine Aminotransferase 23 0 - 55 unit/L [facility] Alkaline Phosphatase 88 40 - 120 unit/L [facility] Bilirubin, Total 0.5 0.2 - 1.3 mg/dL [facility] Bilirubin, Direct 0.1 0.0 - 0.3 mg/dL [facility] Blood specimen (specimen) 11/18/2017 8:33 PM EDT 11/18/2017 8:52 PM EDT Narrative Resulting Agency Comment Spec In Lab Reagan Andrea MD CHEMISTRY ORDERABLES Performing Organization Address City/[facility]/ZIP Co de Phone Number [facility] [place] [address] * (ABNORMAL) Cardiac Enzymes (LEB/CGP) (11/18/2017 8:33 PM EDT) Pathologist [facility] [place] Troponin-T 0.09(H) 0.00 - 0.00 ng/mL [facility] Comment: The 99th percentile for Troponin T is less than 0.01 ng/mL, any detectable cTnT concentration using this assay should be considered elevated. According to the third universal definition of myocardial infarction the following criteria with a clinical presentation consistent with acute myocardial ischemia meets the diagnosis for a myocardial infarction (VT). Detection of a rise and/or fall of cTnT, with at least one value greater than the 99th percentile (> or = 0.01) and with at least one of the following ?? Symptoms of ischemia ?? New or presumed new significant QE-nshdajs-D wave (ST-T) changes or new left bundle [...] additional sample may be indicated. Reference: Third [place] Definition of Myocardial Infarction. Journal of the [place] College of Cardiology 2012;60:1581-98 Creatine Kinase 119 0 - 200 unit/L [facility] Blood specimen (specimen) 11/18/2017 8:33 PM EDT 11/18/2017 8:52 PM EDT Narrative Resulting Agency Comment Spec In Lab Reagan Andrea MD CHEMISTRY ORDERABLES [facility] [place] [address] * (ABNORMAL) Basic Metabolic Panel (non-fasting) (11/18/2017 8:33 PM EDT) [facility] Glucose 92 65 - 199 mg/dL [facility] Comment:Diabetes: >=200 mg/d L plus symptoms Blood Urea Nitrogen 27(H) 10 - 20 mg/dL [facility] Creatinine 1.46 0.80 - 1.50 mg/dL [facility] Sodium 141 135 - 145 mmol/L [facility] Potassium 3.9 3.5 - 5.0 mmol/L [facility] Comment: Please note: ??Patients with WBC >100,000 may have falsely elevated Potassium levels. ??For accurate Potassium quantification in these patients send serum separator tube (gold top) for subsequent determinations. ??Contact the Clinical Chemistry Laboratory if there are any questions. Chloride 101 98 - 107 mmol/L [facility] Carbon Dioxide 25 22 - 31 mmol/L [facility] Anion Gap 15 5 - 15 mmol/L [facility] Calcium 9.2 8.5 - 10.5 mg/dL [facility] Est Glomerular Filtration Rate 47(L) >=60 [facility] Comment: The reported eGFR should be multiplied by 1.2 for patients. The MDRD is not an appropriate measure of renal function for patients with body mass extremes or in patients with acute kidney failure. http://Invajo/DHnkdep http://Invajo/DHMCnkf Blood specimen (specimen) 11/18/2017 8:33 PM EDT 11/18/2017 8:52 PM EDT Narrative Resulting Agency Comment Spec In Lab Reagan Andrea MD CHEMISTRY ORDERABLES [facility] [place] [address] * EKG 12 Lead (11/18/2017 8:26 PM EDT) Ventricular rate 55 BPM MUSE SYSTEM Atrial Rate 55 BPM MUSE SYSTEM P-R Interval 216 ms MUSE SYSTEM QRS Duration 88 ms MUSE SYSTEM Q-T Interval 438 ms MUSE SYSTEM QTC Calculated (Bezet) 419 ms MUSE SYSTEM Calculated P Downey 36 degrees MUSE SYSTEM Calculated T Downey 42 degrees MUSE SYSTEM INTERPRETATION Sinus bradycardia with 1st degree A-V block Otherwise normal ECG No previous ECGs available Confirmed by MD ENCSIO ALAN ([id number]) on 11/19/2017 10:16:03 AM MUSE [...] Until Nilda 11/20/17 at 1304, Constipation, Routine Given 11/18/2017 11:36 PM EDT 100 mg heparin (porcine) 25,000 unit/500 mL (50 unit/mL) infusion 1 dose, Starting on Fri11/18/17 at 202, Until Fri11/18/17 at 2030, BARBY, EUGENE L.: cabinet override heparin 25,000 units in dextrose [...] Reason: See comment - Comment: allready given)1016 ([facility] Hold - Provider: Admin Adt - Reason: Transfer to a Procedural area)1254 ([facility] Unhold - Provider: Admin Adt)2012 (Given - Provider: Kong Brennan, MANAN) 0801 (Given - Provider: Mathew Stringer RN) clopidogrel (PLAVIX) tablet 75 mg 75 mg, Oral, DAILY, First dose on Fri11/19/17 at 0900, Until Discontinued, Routine 0818 (Given - Provider: Mathew Stringer RN)1016 ([facility] Hold - Provider: Admin Adt - Reason: Transfer to a Procedural area)1254 ([facility] Unhold - Provider: Admin Adt) 0802 (Given - Provider: Mathew Stringer RN) losartan (COZAAR) tablet 100 mg 100 mg, Oral, DAILY, First dose on Fri11/19/17 at 0900, Until Discontinued, Hold if BP < 100, Routine 0819 (Given - Provider: Mathew Stringer RN)1016 ([facility] Hold - Provider: Admin Adt - Reason: Transfer to a Procedural area)1254 ([facility] Unhold - Provider: Admin Adt) 0802 (Given [...] 0818 (Given - Provider: Mathew Stringer RN)1016 ([facility] Hold - Provider: Admin Adt - Reason: Transfer to a Procedural area)1254 ([facility] Unhold - Provider: Admin Adt)2013 (Given - Provider: Kong Brennan, MANAN) 0801 (Given - Provider: Mathew Stringer RN) sodium chloride 0.9 % flush 5 mL 5 mL, Intravenous, EVERY 12 HOURS, First dose on Fri11/18/17 at 2045, Until Discontinued, Routine 2044 (Given - Provider: Zeinab Ferris RN) 0845 (Given - Provider: Mathew Stringer RN)1016 ([facility] Hold - Provider: Admin Adt - Reason: Transfer to a Procedural area)1254 ([facility] Unhold - Provider: Admin Adt)2014 (Given - Provider: Kong Brennan RN) 0845 (Given - Provider: Mathew Stringer RN) sodium chloride 0.9 % flush 5 mL 5 mL, Intravenous, 2 TIMES DAILY, First dose on Fri11/18/17 at 2315, Until Discontinued, Routine 231 (Not Given - Provider: Zeinab Ferris RN - Reason: Contraindicated) 0900 (Given - Provider: Mathew Stringer RN)1016 ([facility] Hold - Provider: Admin Adt - Reason: Transfer to a Procedural area)1254 ([facility] Unhold - Provider: Admin Adt)2100 (Not Given - Provider: Kong Brennan RN - Reason: See comment - Comment: administered ar 1600) 0900 (Due - Provider: Admin Adt) sodium chloride 0.9 % flush 5 mL 5 mL, Intravenous, EVERY 12 HOURS, First dose on Fri11/18/17 at 2315, Until Discontinued, Cath (Day of Procedure), Routine 231 (Not Given - Provider: Zeinab Ferris RN - Reason: Contraindicated) 1115 (Given - Provider: Mathew Stringer, MANAN)2315 (Given - Provider: Zoila Ritchie RN) temazepam (RESTORIL) capsule 15 mg 15 mg, Oral, NIGHTLY, First dose on Fri11/18/17 at 2315, Until Discontinued, Routine 2336 (Given - Provider: Zeinab Ferris RN) 1016 ([facility] Hold - Provider: Admin Adt - Reason: Transfer to a Procedural area)1254 ([facility] Unhold - Provider: Admin Adt)2013 (Given - [...] UA) 2029 (New Bag - Provider: Zeinab Mueller I, MANAN)2044 (New Bag - Provider: Zeinab Ferris RN) [...] for discomfort with PIV insertion, Routine 1016 ([facility] Hold - Provider: Admin Adt - Reason: Transfer to a Procedural area)1254 ([facility] Unhold - Provider: Admin Adt) lidocaine (XYLOCAINE) 10 mg/mL (1 %) injection 3 mg 3 mg (0.3 mL), Subcutaneous, ONCE PRN, 1 dose, Starting on Fri11/18/17 at 2257, Until Nilda 11/20/17 at 1304, for discomfort with PIV insertion, Routine 1016 ([facility] Hold - Provider: Admin Adt - Reason: Transfer to a Procedural area)1254 ([facility] Unhold - Provider: Admin Adt) lidocaine (XYLOCAINE) [...] (Intra-Procedure), Routine 0905 (Given - Provider: Luz Zuniga, MANAN)0929 (Given - Provider: Beronica Bloom RN) nitroGLYcerin [...] last 24 to 72 hours., Routine 1016 ([facility] Hold - Provider: Admin Adt - Reason: Transfer to a Procedural area)1254 ([facility] Unhold - Provider: Admin Adt) nitroGLYcerin 100 [...] provided on this medication record., Routine 1016 ([facility] Hold - Provider: Admin Adt - Reason: Transfer to a Procedural area)1254 ([facility] Unhold - Provider: Admin Adt) sodium chloride 0.9 % flush 5-20 mL 5-20 mL, Intravenous, EVERY 1 MIN PRN, Starting on Fri11/18/17 at 2257, Until Nilda 11/20/17 at 1304, flush, Flush pertains to all indwelling lines. Flush per protocol found in the job aid using the link provided on this medication record., Routine 1016 ([facility] Hold - Provider: Admin Adt - Reason: Transfer to a Procedural area)1254 ([facility] Unhold - Provider: Admin Adt) sodium chloride [...] 1026, Administer over 2 Minutes, Cath (Intra-Procedure) 915 (Given - Provider: Ernesto Camarena MD) Linked [...] UA) documented in this encounter Care Teams Service Observer Chief Relationship Specialty Start Date End Date Karo Otero MD [address] [place], [place] [id number] PCP - General Family Medicine 02/11/17 03/19/23 documented as of this encounter
--- OUTSIDE RECORDS SUMMARY | 2024-06-30 12:29 | XMS_ITS | Encounter Summary ---
Author Organization [facility] [place] [address] Care Team Providers Care Night Shift Supervisor Name Role Phone Karo Otero MD Primary Care Provider [phone] Encounter Details Date Type Department Care Team (Late st Contact Info) Description 05/31/2019 [place] [address] Social History Tobacco Use Types Packs/Day Years [...] PM EST Office Visit Cardiology at [address] [phone] Joel Link MD [facility] [place] [address] 01/18/2025 10:15 AM EDT Office Visit Dermatology at [address] [phone] Mathew Fernando MD [address] [place] [address], [facility] [place] [address] documented as of this encounter Procedures Procedure Name Priority Date/Time Associated Diagnosis Comments ECG SCAN Routine 05/31/2019 documented in this encounter Results * Scan Doc: ECG (05/31/2019) Historical Provider MD IBRAHIM MGR SCAN EX T ORDR/RSLT documented in this encounter Visit Diagnoses Not on filedocumented in this encounter Care Teams Night Shift Supervisor Relationship Specialty Start Date End Date Karo Otero MD [address] [place] [address] PCP - General Family Medicine 02/11/17 03/19/23 documented as of this encounter
--- OUTSIDE RECORDS SUMMARY | 2024-06-30 12:29 | XMS_ITS | Encounter Summary ---
[place] [address] Care Team Providers Care Net Application Support Specialist Name Role Phone Karo Otero MD Primary Care Provider [phone] Reason for Visit * Reason Comments Establish Care Had [place] and stent in november. [place] cardiac [place] [facility] Encounter Details Date Type Department Care Team (Late st Contact Info) Description 12/30/2017 8:20 AM EDT Office Visit Cardiology at [address] [phone] Sukh Mishra Jr., MD [address] [place] [address] Hyperlipidemia, unspecified hyperlipidemia type; Non-ST elevation myocardial [...] Complaint Patient presents with ??? Follow-up Had [place] and stent in november. Doing cardiac rehab in [facility] He has had rare fleeting chest pain [...] benign Ext no edema EKG: SB 52, IA 248, no ST/T change Assessment and Plan: [...] 3:00 PM EST Office Visit Cardiology at [address] [place] [address] Joel Link MD [facility] [place] [address] 01/18/2025 10:15 AM EDT Office Visit Dermatology at [address] [place] [address] Mathew Fernando MD [address] [place] [address], [facility] DERMATOLOGY [place], [place] [phone] documented as of this encounter Procedures Procedure Name Priority Date/Time Associated Diagnosis Comments ECG SCAN 01/02/2018 12:00 AM EDT EXTERNAL LIPID LAB RESULTS PANEL Routine 12/30/2017 documented in this encounter Results * SCAN DOC: ECG (01/02/2018 12:00 AM EDT) Narrative 01/02/2018 12:00 AM EDT Ordered by an unspecified provider. Scanning Provider MEDIA MGR SCAN EXT O RDR/RSLT * Lipid External Results (12/30/2017) Cholesterol, Total 132 HDL Cholesterol 53 LDL Cholesterol 69 Triglyceride 51 Historical Provider POINT OF CARE JOEY T ORDERABLES documented in this encounter Visit Diagnoses Diagnosis Hyperlipidemia, unspecified hyperlipidemia type Non-ST elevation myocardial infarction (NSTEMI) Acute myocardial infarction, subendocardial infarction, episode of care unspecified Essential hypertension Unspecified essential hypertension Bradycardia Other specified cardiac dysrhythmias documented in this encounter Care Teams Net Application Support Specialist Relationship Specialty Start Date End Date Karo Otero MD [address] [place] [address] PCP - General Family Medicine 02/11/17 03/19/23 documented as of this encounter
--- OUTSIDE RECORDS SUMMARY | 2024-06-30 12:29 | XMS_ITS | Encounter Summary ---
Author Organization [facility] [place] [address] Care Team Providers Care Compensation Intern Name Role Phone Karo Otero MD Primary Care Provider [phone] Encounter Details Date Type Department Care Team (Latest Contact Info) Description 01/07/2018 12:05 AM EDT - 01/07/2018 11:59 PM EDT Hospital Encounter Radiology Library at [facility] [place] [address] Mauricio Schroeder MD [facility] [place] [address] Discharge Disposition: Home Social History Tobacco Use [...] Capsule Take 1 capsule by mouth daily. cyanocobalamin, vitamin B-12, (VITAMIN B-12 ORAL) Take [...] 3:00 PM EST Office Visit Cardiology at [address] [phone] Joel Link MD [facility] [place] [address] 01/18/2025 10:15 AM EDT Office Visit Dermatology at [address] [phone] Mathew Fernando MD [address] [place] [address], [facility] DERMATOLOGY [place], [place] [address] documented as of this encounter Procedures Procedure [...] Schroeder MD IMG FILM LIBRARY ORD ERABLES [place], [place] documented in this encounter Visit Diagnoses Not on filedocumented in this encounter Care Teams Compensation Intern Relationship Specialty Start Date End Date Karo Otero MD [address] [place] [address] PCP - General Family Medicine 02/11/17 03/19/23 documented as of this encounter
--- OUTSIDE RECORDS SUMMARY | 2024-06-30 12:29 | XMS_ITS | Encounter Summary ---
Author Organization [facility] [place] [address] Care Team Providers Care Casing Wringer Operator Name Role Phone Karo Otero MD Primary Care Provider [phone] Encounter Details Date Type Department Care Team (Latest Contact Info) Description 01/07/2018 - 01/07/2018 12:04 AM EDT Hospital Encounter Radiology Library at [facility] [place] [address] Mauricio Schroeder MD [facility] [place] [address] Discharge Disposition: Home Social History Tobacco Use [...] 3:00 PM EST Office Visit Cardiology at [address] [phone] Joel Link MD [facility] [address] 01/18/2025 10:15 AM EDT Office Visit Dermatology at [address] [place] [address] Mathew Fernando MD [address] [facility] DERMATOLOGY [place], [place] [phone] documented as of this encounter Procedures Procedure Name Priority Date/Time Associated Diagnosis Comments FILM LIBRARY STORAGE ONLY DX CHEST Routine 01/07/2018 12:00 AM EDT documented in this encounter Results * Film Library- Storage Only DX Chest (01/07/2018 12:00 AM EDT) Narrative RAD - 01/07/2018 3:33 PM EDT This exam is for storage only and is auto-finalizing. Mauricio Schroeder MD IMG FILM LIBRARY ORD ERABLES [place], [place] documented in this encounter Visit Diagnoses Not on filedocumented in this encounter Care Teams Casing Wringer Operator Relationship Specialty Start Date End Date Karo Otero MD [address] [place] [address] PCP - General Family Medicine 02/11/17 03/19/23 documented as of this encounter
--- OUTSIDE RECORDS SUMMARY | 2024-06-30 12:29 | XMS_ITS | Encounter Summary ---
Author Organization [facility]ly [facility] [place] [address] Care Team Providers Care Materials Recycler Name Role Phone Karo Otero MD Primary Care Provider [phone] Reason for Visit * Reason Comments Medication Refill Encounter Details Date Type Department Care Team (Late st Contact Info) Description 07/13/2019 Refill Cardiology at [address] [phone] Joel Link MD [facility] [place] [address] Medication Refill Social History Tobacco Use Types [...] 3:00 PM EST Office Visit Cardiology at [address] [phone] Joel Link MD [facility] [place] [address] 01/18/2025 10:15 AM EDT Office Visit Dermatology at [address] [place] [address] Mathew Fernando MD [address] [facility] [place] [address] documented as of this encounter Visit Diagnoses Diagnosis Essential hypertension Unspecified essential hypertension documented in this encounter Care Teams Materials Recycler Relationship Specialty Start Date End Date Krao Otero MD [address] [place] [address] PCP - General Family Medicine 02/11/17 03/19/23 documented as of this encounter
--- OUTSIDE RECORDS SUMMARY | 2024-06-30 12:29 | XMS_ITS | Encounter Summary ---
Author Organization [facility] Address [facility] [place] [address] Care Team Providers Care Golf Club Manager Name Role Phone Karo Otero MD Primary Care Provider [phone] Reason for Visit * Reason Comments Other ventricular bigeminy Encounter Details Date Type Department Care Team (Late st Contact Info) Description 10/18/2019 10:20 AM EST Office Visit Cardiology at [address] [phone] Joel Link MD [facility] [place] [address] Coronary artery disease involving [place] coronary artery of [place] heart without angina pectoris; Ventricular bigeminy Social [...] the original note were not included. at [facility], Cardiology [address] [address] Subjective: Patient ID: Tra Brothers III (Tony) [...] 3 (moderate) ??? Coronary artery disease involving [place] coronary artery of [place] heart 11/2017: mild diffuse LM and RCA, [...] Assessment and Plan: Coronary artery disease involving [place] coronary artery of [place] heart No angina per history - Anti-Thrombosis: [...] 3:00 PM EST Office Visit Cardiology at [address] [place] [phone] Joel Link MD [facility] [place] [address] 01/18/2025 10:15 AM EDT Office Visit Dermatology at [place] [address] [place] [address] Mathew Fernando MD [address] [facility] [address], [place] [address] documented as of this encounter Procedures Procedure [...] (Bezet) 429 ms MUSE SYSTEM Calculated P [place] 73 degrees MUSE SYSTEM Calculated R [place] -20 degrees MUSE SYSTEM Calculated T [place] 18 degrees MUSE SYSTEM INTERPRETATION Sinus bradycardia with 1st degree A-V block Minimal voltage criteria for LVH, may be normal variant Borderline ECG When compared with ECG of 07-JUN-2019 11:44, No significant change was found Confirmed by MD Nikolay, Joel ([id number]) on 10/21/2019 1:40:51 PM MUSE SYSTEM 10/18/2019 10:3 6 AM EST 10/21/2019 1:40 PM EST Unknown ECG ORDERABLES MUSE SYSTEM documented in this encounter Visit Diagnoses Diagnosis Coronary artery disease involving [place] coronary artery of [place] heart without angina pectoris Ventricular bigeminy Other specified cardiac dysrhythmias documented in this encounter Care Teams Golf Club Manager Relationship Specialty Start Date End Date Karo Otero MD [address] [place] [address] PCP - General Family Medicine 02/11/17 03/19/23 documented as of this encounter
--- OUTSIDE RECORDS SUMMARY | 2024-06-30 12:29 | XMS_ITS | Encounter Summary ---
Author Organization [facility] [place] [address] Care Team Providers Care Director Of District Office Name Role Phone Karo Otero MD Primary Care Provider [phone] Encounter Details Date Type Department Care Team (Late st Contact Info) Description 06/08/2020 Telephone Cardiology at [address] [phone] Joel Link MD [facility] [address] [place] [address] Social History Tobacco Use Types Packs/Day Years [...] 3:00 PM EST Office Visit Cardiology at [address] [phone] Joel Link MD [facility] [place] [place] [address] 01/18/2025 10:15 AM EDT Office Visit Dermatology at [place] [address] [place] [address] Mathew Fernando MD [address] [facility] [address], [place] [address] documented as of this encounter Visit Diagnoses Not on filedocumented in this encounter Care Teams Director Of District Office Relationship Specialty Start Date End Date Karo Otero MD [address] [place] [address] PCP - General Family Medicine 02/11/17 03/19/23 documented as of this encounter
--- OUTSIDE RECORDS SUMMARY | 2024-06-30 12:29 | XMS_ITS | Encounter Summary ---
Author Organization [facility] [place] [address] Care Team Providers Care It Data Architect Name Role Phone Karo Otero MD Primary Care Provider [phone] Reason for Visit * Reason Onset Date Comments Medication Refill 07/01/2019 Encounter Details Date Type Department Care Team (Late Contact Info) Description 07/01/2019 Refill Cardiology at [address] [phone] Joel Link MD [facility] [place] [place] [address] Medication Refill Social History Tobacco Use Types [...] 3:00 PM EST Office Visit Cardiology at [address] [phone] Joel Link MD [facility] [place] [address] 01/18/2025 10:15 AM EDT Office Visit Dermatology at [address] [address] Mathew Fernando MD [address] [facility], [place] [address] documented as of this encounter Visit Diagnoses Diagnosis Essential hypertension Unspecified essential hypertension documented in this encounter Care Teams It Data Architect Relationship Specialty Start Date End Date Karo Otero MD [address] [place] [address] PCP - General Family Medicine 02/11/17 03/19/23 documented as of this encounter
--- OUTSIDE RECORDS SUMMARY | 2024-06-30 12:29 | XMS_ITS | Encounter Summary ---
[place] [address] Care Team Providers Care Sales Service Assistant Name Role Phone Karo Otero MD Primary Care Provider [phone] Encounter Details Date Type Department Care Team (Late st Contact Info) Description 05/31/2019 Telephone Cardiology at [address] [phone] Betty Gerber [facility] [place] [address] Social History Tobacco Use Types Packs/Day Years [...] 05/31/2019 Referring Provider: Dr. Sotomayor Patient Location: [facility] Tra Brothers III is a 78 [...] PM EST Office Visit Cardiology at [address] [phone] Joel Link MD [facility] [place] [address] 01/18/2025 10:15 AM EDT Office Visit Dermatology at [address] [phone] Mathew Fernando MD [address] [place] [address], [facility] DERMATOLOGY [place], [place] [address] documented as of this encounter Visit Diagnoses Not on filedocumented in this encounter Care Teams Sales Service Assistant Relationship Specialty Start Date End Date Karo Otero MD [address] [place] [address] PCP - General Family Medicine 02/11/17 03/19/23 documented as of this encounter
--- OUTSIDE RECORDS SUMMARY | 2024-06-30 12:29 | XMS_ITS | Encounter Summary ---
Author Organization [facility] [place] [address] Care Team Providers Care Printing Press Operator Apprentice Name Role Phone Karo Otero MD Primary Care Provider [phone] Encounter Details Date Type Department Care Team (Late Contact Info) Description 10/18/2019 Telephone Cardiology at [address] [phone] Joel Link MD [facility] [place] [address] Social History Tobacco Use Types Packs/Day Years [...] 3:00 PM EST Office Visit Cardiology at [address] [place] [phone] Joel Link MD [facility] [place] [address] 01/18/2025 10:15 AM EDT Office Visit Dermatology at [address] [place] [phone] Mathew Fernando MD [address] [place] [address] RD, [place] [address] documented as of this encounter Visit Diagnoses Not on filedocumented in this encounter Care Teams Printing Press Operator Apprentice Relationship Specialty Start Date End Date Karo Otero MD [address] [place] [address] PCP - General Family Medicine 02/11/17 03/19/23 documented as of this encounter
--- OUTSIDE RECORDS SUMMARY | 2024-06-30 12:29 | XMS_ITS | Encounter Summary ---
Author Organization [facility] [place] [address] Care Team Providers Care Food Service Hotel Runner Name Role Phone Karo Otero MD Primary Care Provider [phone] Encounter Details Date Type Department Care Team (Latest Contact Info) Description 04/21/2019 Interpretation Only Cardiology at [address] [place] [address] Joel Link MD [facility] [place] [address] Cardiomyopathy, ischemic Social History Tobacco Use Types [...] 3:00 PM EST Office Visit Cardiology at [address] [place] [phone] Joel Link MD [facility] [place] [place] [address] 01/18/2025 10:15 AM EDT Office Visit Dermatology at [address] [place] [address] Mathew Fernando MD [address] [facility] [address], BRENNEN A [place], [place] [address] documented as of this encounter Visit Diagnoses Diagnosis Cardiomyopathy, ischemic Other specified forms of chronic ischemic heart disease documented in this encounter Care Teams Food Service Hotel Runner Relationship Specialty Start Date End Date Karo Otreo MD [address] [place] [address] PCP - General Family Medicine 02/11/17 03/19/23 documented as of this encounter
--- OUTSIDE RECORDS SUMMARY | 2024-06-30 12:29 | XMS_ITS | Encounter Summary ---
Author Organization [facility] [place] [address] Care Team Providers Care Machine Attendant Name Role Phone Karo Otero MD Primary Care Provider [phone] Reason for Visit * Reason Comments Medication Refill Encounter Details Date Type Department Care Team (Late st Contact Info) Description 11/19/2018 Refill Cardiology at [address] [phone] Lara Aguero APRN [facility] [place] [address] Medication Refill Social History Tobacco Use Types [...] 3:00 PM EST Office Visit Cardiology at [address] [place] [phone] Joel Link MD [facility] [place] [address] 01/18/2025 10:15 AM EDT Office Visit Dermatology at [address] [place] [address] Mathew Fernando MD [address] [facility], JAIRO [place] [address] documented as of this encounter Visit Diagnoses Not on filedocumented in this encounter Care Teams Machine Attendant Relationship Specialty Start Date End Date Karo Otero MD [address] [place] [address] PCP - General Family Medicine 02/11/17 03/19/23 documented as of this encounter
--- OUTSIDE RECORDS SUMMARY | 2024-06-30 12:29 | XMS_ITS | Encounter Summary ---
Author Organization [facility] [place] [address] Care Team Providers Care Assistant Manager Of Operations Name Role Phone Karo Otero MD Primary Care Provider [phone] Encounter Details Date Type Department Care Team (Late st Contact Info) Description 04/21/2019 4:40 PM EDT Interpretation Only [address] [place] [phone] Joel Link MD [facility] [place] [address] Social History Tobacco Use Types Packs/Day Years [...] PM EST Office Visit Cardiology at [address] [place] [address] Joel Link MD [facility] [place] [place] [address] 01/18/2025 10:15 AM EDT Office Visit Dermatology at [address] [place] [address] Mathew Fernando MD [address] [facility] [address], BRENNEN [place] [address] documented as of this encounter Procedures Procedure [...] on filedocumented in this encounter Care Teams Assistant Manager Of Operations Relationship Specialty Start Date End Date Karo Otero MD [address] [place] [address] PCP - General Family Medicine 02/11/17 03/19/23 documented as of this encounter
--- OUTSIDE RECORDS SUMMARY | 2024-06-30 12:29 | XMS_ITS | Encounter Summary ---
[place] [address] Care Team Providers Care Nursing Home Administrator Name Role Phone Karo Otero MD Primary Care Provider [phone] Encounter Details Date Type Department Care Team (Late st Contact Info) Description 08/30/2019 10:00 AM EST Office Visit Dermatology at [address] [place] [phone] Mathew Fernando MD [address] [facility], [place] [address] History of SCC (squamous cell carcinoma) of [...] History of extensive sun exposure living in [place] 3. History of BCCA's right upper back treated in [place] 4. 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 Is been doing well. Is living there full-time and [place] and not planning on heading down to [place] at all this winter, where he used [...] 3:00 PM EST Office Visit Cardiology at [address] [phone] Joel Link MD [facility] [place] [address] 01/18/2025 10:15 AM EDT Office Visit Dermatology at [address] [phone] Mathew Fernando MD [address] [place] [address], [facility] [place] [address] documented as of this encounter Visit Diagnoses Diagnosis History of SCC (squamous cell carcinoma) of skin Personal history of other malignant neoplasm of skin History of basal cell carcinoma Personal history of other malignant neoplasm of skin AK (actinic keratosis) Actinic keratosis documented in this encounter Care Teams Nursing Home Administrator Relationship Specialty Start Date End Date Karo Otero MD [address] [place] [address] PCP - General Family Medicine 02/11/17 03/19/23 documented as of this encounter
--- OUTSIDE RECORDS SUMMARY | 2024-06-30 12:29 | XMS_ITS | Encounter Summary ---
Author Organization [facility] [place] [address] Care Team Providers Care Bilingual Call Center Representative Name Role Phone Karo Otero MD Primary Care Provider Reason for Visit * Reason Comments Medication Refill Encounter Details Date Type Department Care Team (Late st Contact Info) Description 02/27/2019 Refill Cardiology at [address] [phone] Lara Aguero APRN [facility] [place] [address] Medication Refill Social History Tobacco Use Types [...] 3:00 PM EST Office Visit Cardiology at [address] [place] [phone] Joel Link MD [facility] [place] [address] 01/18/2025 10:15 AM EDT Office Visit Dermatology at [address] [place] [address] Mathew Fernando MD [address] [facility] Z[facility], [place] [address] documented as of this encounter Visit Diagnoses Not on filedocumented in this encounter Care Teams Bilingual Call Center Representative Relationship Specialty Start Date End Date Karo Otero MD [address] [place] [address] PCP - General Family Medicine 02/11/17 03/19/23 documented as of this encounter
--- OUTSIDE RECORDS SUMMARY | 2024-06-30 12:29 | XMS_ITS | Encounter Summary ---
Author Organization [facility] [place] [address] Care Team Providers Care Industrial Fabric Cutter Name Role Phone Karo Otero MD Primary Care Provider [phone] Reason for Visit * Reason Comments Medication Refill Encounter Details Date Type Department Care Team (Late st Contact Info) Description 03/30/2019 Refill Cardiology at [address] [address] Lara Aguero APRN [facility] [place] [address] Medication Refill Social History Tobacco Use Types [...] 3:00 PM EST Office Visit Cardiology at [address] [place] [phone] Joel Link MD [facility] [place] [address] 01/18/2025 10:15 AM EDT Office Visit Dermatology at [address] [place] [address] Mathew Fernando MD [address] [facility], JAIR[place] [address] documented as of this encounter Visit Diagnoses Not on filedocumented in this encounter Care Teams Industrial Fabric Cutter Relationship Specialty Start Date End Date Karo Otero MD [address] [place] [address] PCP - General Family Medicine 02/11/17 03/19/23 documented as of this encounter
--- OUTSIDE RECORDS SUMMARY | 2024-06-30 12:29 | XMS_ITS | Encounter Summary ---
[place] [address] Care Team Providers Care Sugarcane Research Technician Name Role Phone Karo Otero MD Primary Care Provider [phone] Reason for Visit * Reason Comments Follow-up Skin Check Encounter Details Date Type Department Care Team (Late st Contact Info) Description 08/25/2018 10:30 AM EST Office Visit Dermatology at [address] [address] Mathew Fernando MD [address] [facility] [place] [address] History of SCC (squamous cell carcinoma) of [...] History of extensive sun exposure living in [place] 3. History of BCCA's right upper back treated in [place] 4. 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 He unfortunately did have a an [place] in November and brokehis leg in December. [...] recurrence at the back treatment sites from [place]. Assessment plan: Actinic keratosis facial 1. LN [...] 3:00 PM EST Office Visit Cardiology at [address] [address] Joel Link MD [facility] [place] [address] 01/18/2025 10:15 AM EDT Office Visit Dermatology at [address] [address] Mathew Fernando MD [address] [place] [address], [facility] [place] [address] documented as of this encounter Visit Diagnoses Diagnosis History of SCC (squamous cell carcinoma) of skin Personal history of other malignant neoplasm of skin History of basal cell carcinoma Personal history of other malignant neoplasm of skin AK (actinic keratosis) Actinic keratosis documented in this encounter Care Teams Sugarcane Research Technician Relationship Specialty Start Date End Date Karo Otero MD [address] [place] [address] PCP - General Family Medicine 02/11/17 03/19/23 documented as of this encounter
--- OUTSIDE RECORDS SUMMARY | 2024-06-30 12:29 | XMS_ITS | Encounter Summary ---
Author Organization [facility] [place] [address] Care Team Providers Care Consumer Safety Officer Name Role Phone Karo Otero MD Primary Care Provider [phone] Reason for Visit * Reason Onset Date Comments Shortness of Breath 06/05/2020 Encounter Details Date Type Department Care Team (Late st Contact Info) Description 06/05/2020 Telephone Cardiology at [address] [phone] Joel Link MD [facility] [place] [address] Shortness of Breath Social History Tobacco Use [...] 48 hr to be placed 06/15/[address] [facility] 11 am * Telephone Encounter - Beronica Garcia - 06/14/2020 2:49 PM EDT Order faxed to [facility] Scheduling 06/13/2020 * Telephone Encounter - Bonnie Watson RN - 06/05/2020 4:23 PM EDT Erwin agrees to come to the clinic for nurse to conduct EKG on June 08, approximately 10 am * Telephone Encounter - Bonnie Watson RN - 06/05/2020 9:29 AM EDT Call to patient's phone [phone] He is not in distress right now. Requested he review his symptoms with me. My energy level is low.Last week I was at [employer] and I felt very dizzy and short [...] told to report these symptoms to his fire extinguisher tester. Erwin is not routinely recording his home [...] saw PCP and was told to call fire extinguisher tester. Called for PCP notes. #[phone] documented in this encounter Plan of Treatment Upcoming Encounters Date Type Department Care Team (Late st Contact Info) Description 10/07/2024 3:00 PM EST Office Visit Cardiology at [address] [place] [address] Joel Link MD [facility] [place] [address] 01/18/2025 10:15 AM EDT Office Visit Dermatology at [address] [address] Mathew Fernando MD [address] [facility], [facility] [place] [place] [address] documented as of this encounter Results * Holter Monitor 48hr (06/20/2020) Anatomical Region Laterality Modality Other Narrative 06/20/2020 Location: ??[facility] Referring: Nikolay Indication: ??lightheadedness Duration of recording [...] Visit Diagnoses Diagnosis Coronary artery disease involving [place] coronary artery of [place] heart without angina pectoris Dizziness Dizziness and giddiness Dizziness Dizziness and giddiness documented in this encounter Care Teams Consumer Safety Officer Relationship Specialty Start Date End Date Karo Otero MD [address] [place] [address] PCP - General Family Medicine 02/11/17 03/19/23 documented as of this encounter
--- OUTSIDE RECORDS SUMMARY | 2024-06-30 12:29 | XMS_ITS | Encounter Summary ---
Author Organization [facility] [place] [address] Care Team Providers Care Slab Conditioner Supervisor Name Role Phone Karo Otero MD Primary Care Provider [phone] Encounter Details Date Type Department Care Team (Late st Contact Info) Description 03/29/2019 External Results Cardiology at [address] [address] Myranda Arnold RN Social History [...] 3:00 PM EST Office Visit Cardiology at [address] [phone] Joel Link MD [facility] [address] [place] [address] 01/18/2025 10:15 AM EDT Office Visit Dermatology at [address] [phone] Mathew Fernando MD [address] [place] [address], [facility] [place] [address] documented as of this encounter Procedures Procedure Name Priority Date/Time Associated Diagnosis Comments EXTERNAL LIPID LAB RESULTS PANEL Routine 09/02/2018 documented in this encounter Results * Lipid External Results (09/02/2018) Cholesterol, Total 120 HDL Cholesterol 57 LDL Cholesterol 55 Triglyceride 56 Historical Provider POINT OF CARE JOEY T ORDERABLES documented in this encounter Visit Diagnoses Not on filedocumented in this encounter Care Teams Slab Conditioner Supervisor Relationship Specialty Start Date End Date Karo Otero MD [address] [place] [address] PCP - General Family Medicine 02/11/17 03/19/23 documented as of this encounter
--- OUTSIDE RECORDS SUMMARY | 2024-06-30 12:29 | XMS_ITS | Encounter Summary ---
Author Organization [facility] [place] [address] Care Team Providers Care Picker Name Role Phone Karo Otero MD Primary Care Provider [phone] Encounter Details Date Type Department Care Team (Late st Contact Info) Description 04/21/2019 Telephone Cardiology at [address] [address] Joel Link MD [facility] [place] [address] Social History Tobacco Use Types Packs/Day Years [...] 3:00 PM EST Office Visit Cardiology at [address] [phone] Joel Link MD [facility] [place] [address] 01/18/2025 10:15 AM EDT Office Visit Dermatology at [address] [address] Mathew Fernando MD [address] [place] [address], [facility] [place] [address] documented as of this encounter Visit Diagnoses Not on filedocumented in this encounter Care Teams Picker Relationship Specialty Start Date End Date Karo Otero MD [address] [place] [address] PCP - General Family Medicine 02/11/17 03/19/23 documented as of this encounter
--- OUTSIDE RECORDS SUMMARY | 2024-06-30 12:29 | XMS_ITS | Encounter Summary ---
[place] [address] Care Team Providers Care Specialty Therapist Name Role Phone Karo Otero MD Primary Care Provider [phone] Reason for Visit * Reason Comments Follow-up 3 months Coronary Artery Disease Encounter Details Date Type Department Care Team (Late st Contact Info) Description 04/01/2018 9:40 AM EDT Office Visit Cardiology at [address] [phone] Sukh Mishra Jr., MD [address] [place] [address] Essential hypertension; ASCVD (arteriosclerotic cardiovascular disease); Elevated [...] PM EST Office Visit Cardiology at [address] [place] [address] Joel Link MD [facility] [place] [address] 01/18/2025 10:15 AM EDT Office Visit Dermatology at [address] [phone] Mathew Fernando MD [address] [place] [address], [facility] [place] [address] documented as of this encounter Visit Diagnoses Diagnosis Essential hypertension Unspecified essential hypertension ASCVD (arteriosclerotic cardiovascular disease) Unspecified cardiovascular disease Elevated cholesterol Pure hypercholesterolemia Orthostatic dizziness documented in this encounter Care Teams Specialty Therapist Relationship Specialty Start Date End Date Karo Otero MD [address] [place] [address] PCP - General Family Medicine 02/11/17 03/19/23 documented as of this encounter
--- OUTSIDE RECORDS SUMMARY | 2024-06-30 12:29 | XMS_ITS | Encounter Summary ---
Author Organization [facility] [place] [address] Care Team Providers Care Search Engine Marketing Strategist Name Role Phone Karo Otero MD Primary Care Provider [phone] Encounter Details Date Type Department Care Team (Late st Contact Info) Description 07/01/2019 Telephone Cardiology at [address] [address] Joel Link MD [facility] [place] [address] Social History Tobacco Use Types Packs/Day Years [...] a script for this to go to [facility] Mail order He is also asking for a Referral to Cardiac Rehab in [facility]. # [phone] documented in this encounter Plan of Treatment Upcoming Encounters Date Type Department Care Team (Late st Contact Info) Description 10/07/2024 3:00 PM EST Office Visit Cardiology at [address] [place] [address] Joel Link MD [facility] [place] [address] 01/18/2025 10:15 AM EDT Office Visit Dermatology at [address] [place] [address] Mathew Fernando MD [address] [place] [address], [facility] [place] [address] documented as of this encounter Visit Diagnoses Not on filedocumented in this encounter Care Teams Search Engine Marketing Strategist Relationship Specialty Start Date End Date Karo Otero MD [address] [place] [address] PCP - General Family Medicine 02/11/17 03/19/23 documented as of this encounter
--- OUTSIDE RECORDS SUMMARY | 2024-06-30 12:29 | XMS_ITS | Encounter Summary ---
Author Organization [facility] Address [facility] [place] [address] Care Team Providers Care Resourcing Consultant Name Role Phone Karo Otero MD Primary Care Provider Reason for Visit * Reason Comments Follow-up Discharge [facility] for V entricular Bigeminy Encounter Details Date Type Department Care Team (Late st Contact Info) Description 06/07/2019 11:40 AM EDT Office Visit Cardiology at [address] [phone] Joel Link MD [facility] [place] [address] Coronary artery disease involving [place] coronary artery of [place] heart without angina pectoris; Ventricular bigeminy Social [...] Complaint Patient presents with ??? Follow-up Discharge [facility] for Ventricular Bigeminy HPI 78 M presents on follow-up for ventricular bigeminy. Last seen by me 03/2019, at which time a carotid was ordered which demonstrated mild disease bilaterally. He went to [facility] 05/31/2019 with fatigue; this was noted to [...] 3 (moderate) ??? Coronary artery disease involving [place] coronary artery of [place] heart 11/2017: mild diffuse LM and RCA, [...] Center 08/30/2019 10:00 AM Mathew Fernando MD [facility] Derm [facility] 10/18/2019 10:20 AM Joel Link MD [facility] Joel MD Nikolay documented in this encounter [...] PM EST Office Visit Cardiology at [address] [phone] Joel Link MD [facility] [place] [address] 01/18/2025 10:15 AM EDT Office Visit Dermatology at [address] [phone] Mathew Fernando MD [address] [place] [address], [facility] [place] [address] documented as of this encounter Procedures Procedure [...] (Bezet) 408 ms MUSE SYSTEM Calculated P [place] 69 degrees MUSE SYSTEM Calculated R [place] -3 degrees MUSE SYSTEM Calculated T [place] 34 degrees MUSE SYSTEM INTERPRETATION Sinus bradycardia with 1st degree A-V block Otherwise normal ECG When compared with ECG of 19-NOV-2017 10:46, QT has shortened Confirmed by MD Nikolay, Joel ([id number]) on 06/08/2019 10:28:56 AM MUSE SYSTEM 06/07/2019 11:4 4 AM EDT 06/08/2019 10:28 AM EDT Unknown ECG ORDERABLES MUSE SYSTEM documented in this encounter Visit Diagnoses Diagnosis Coronary artery disease involving [place] coronary artery of [place] heart without angina pectoris Ventricular bigeminy Other specified cardiac dysrhythmias documented in this encounter Care Teams Resourcing Consultant Relationship Specialty Start Date End Date Karo Otero MD [address] [place] [address] PCP - General Family Medicine 02/11/17 03/19/23 documented as of this encounter
--- OUTSIDE RECORDS SUMMARY | 2024-06-30 12:29 | XMS_ITS | Encounter Summary ---
Author Organization [facility] Address [facility] [place] [address] Care Team Providers Care Song And Dance Performer Name Role Phone Karo Otero MD Primary Care Provider [phone] Reason for Referral * Consultation (Routine) - Closed Specialty Diagnoses / Procedures Referred By Contact Referred To Contact Electrophysiology / Cardiology Diagnoses Ventricular bigeminy Joel Link MD [facility] [place] [address] Mane Gonzalez MD [facility] [place] [address] Referral ID Status Reason Start Date Expiration Date V isits Requested Visits Authorized [id number] Closed Consult, Test & Treat 08/30/2019 08/29/2020 1 1 Encounter Details Date Type Department Care Team (Late st Contact Info) Description 08/30/2019 Telephone Cardiology at [address] [address] Joel Link MD [facility] [place] [address] Social History Tobacco Use Types Packs/Day Years [...] mg 1 tab 2 x daily. # [phone] documented in this encounter Plan of Treatment Upcoming Encounters Date Type Department Care Team (Late st Contact Info) Description 10/07/2024 3:00 PM EST Office Visit Cardiology at [address] [place] [address] Joel Link MD [facility] [place] [address] 01/18/2025 10:15 AM EDT Office Visit Dermatology at [place] [address] [facility] [address] [place] [phone] Mathew Fernando MD [address] [facility] [address], [place] [address] Scheduled Referrals Name Type Priority Associated Diagnoses Order Schedule Referral to Cardiac Electrophysiology Outpatient Referral Routine Ventricular bigeminy Ordered: 08/30/2019 documented as of this encounter Visit Diagnoses Diagnosis Ventricular bigeminy Other specified cardiac dysrhythmias documented in this encounter Care Teams Song And Dance Performer Relationship Specialty Start Date End Date Karo Otero MD [address] [place] [address] PCP - General Family Medicine 02/11/17 03/19/23 documented as of this encounter
--- OUTSIDE RECORDS SUMMARY | 2024-06-30 12:30 | XMS_ITS | Encounter Summary ---
Author Organization [facility] Address [address] [place] [address] Care Team Providers Care Delivery Engineer Name Role Phone [place] Myles MD Primary Care Provider [phone] Reason for Visit * Reason Comments Follow-up Encounter Details Date Type Department Care Team (Late st Contact Info) Description 05/06/2023 13:00 EDT Office Visit [facility] Ophthalmology - [address] [phone] Anjum Miranda MD [address] [facility], Level [address] [place] [address] Social History Tobacco Use Types [...] Recorded Sex Assigned at Not on file Legal Sex Male 15:43 EDT Gender Identity Male 09/20/2019 15:02 EST Sexual Orientation Not on file documented as of this encounter Functional Status * Are you deaf or do you have serious difficulty hearing? Answer Date of Assessment Author No 01/07/2018 21:35 EDT Kita Rebollar RN * Are you blind or do you have serious difficulty seeing, even when wearing glasses? Answer Date of Assessment Author Yes 01/07/2018 21:35 Kita Segovia RN * Do you have serious difficulty walking or climbing stairs? (5 years old or older) Answer Date of Assessment Author No 01/07/2018 21:35 Kita Segovia RN * Do you have difficulty dressing or bathing? (5 years old or older) Answer Date of Assessment Author No 01/07/2018 21:35 Kita Segovia RN * Because of a physical, mental, or emotional condition, do you have difficulty doing errands alone such as visiting a doctor's office or shopping? (15 years old or older) Answer Date of Assessment Author No 01/07/2018 21:35 Kita Segovia RN documented as of this encounter Mental Status * Because of a physical, mental, or emotional condition, do you have serious difficulty concentrating, remembering, or making decisions? (5 years old or older) Answer Entry Date Author No 01/07/2018 21:35 Kita Segovia RN documented in this encounter Progress Notes * [...] mg bevacizumab Route: intravitreal, Site: Left Eye [facility]: [address]-97, Lot: [id number], Expiration date: 05/07/2023 Post-op Post injection exam [...] Care Team (Late st Contact Info) Description 07/02/2024 13:30 EST Office Visit [facility] [place] [address] Anjum Miranda MD [address] [place] [address], [address] [place] [phone] documented as of this encounter Procedures Procedure [...] - LEFT EYE (05/06/2023 13:41 EDT) Narrative [facility] POINT OF CARE - 05/06/2023 14:35 EDT Time Out 05/06/2023. 13:35. Confirmed correct patient, procedure, site, and patient consented. Anesthesia Topical anesthesia was used. Anesthetic medications included Proparacaine 0.5%, Tetracaine 0.5%. Procedure Preparation included 5% betadine to ocular surface, eyelid speculum. A 30 gauge needle was used. Injection: 1.25 mg bevacizumab ??Route: intravitreal, Site: Left Eye ??[facility]: [address]-05, Lot: [id number], Expiration date: 05/07/2023 Post-op Post injection exam found visual acuity of at least counting fingers. The patient tolerated the procedure well. There were no complications. Post injection medications were not given. us Anjum Miranda MD OPHTH CLINIC PROCEDURES Final Re sult [facility] POINT OF CARE * OCT, RETINA - OU - BOTH EYES (05/06/2023 13:31 EDT) Narrative [facility] OPHTHALMOLOGY - 05/06/2023 14:35 EDT Right Eye Progression has been stable. Left Eye Quality was good. Progression has improved. Findings include pigment epithelial detachment, subretinal fluid. Notes Drusen, no fluid right eye Decrease in SRHRM as well left eye Anjum Miranda MD OPHTH TOMOGRAPHY Final Result [facility] OPHTHALMOLOGY documented in this [...] Fri05/06/23 at 1435, Until Fri05/06/23 at 1435, RoutineIndications:Exudative age-related macular degeneration of 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) Given 05/06/2023 14:35 EDT 1.25 mg Left Ey e documented in this encounter Historical Medications * This list may reflect changes made after this encounter. vit C/E/Zn/coppr/lutei n/zeaxan (PRESERVISION AREDS-2 ORAL) Take by mouth. added [...] by [facility] Vessels Normal Normal Care Teams Delivery Engineer Relationship Specialty Start Date End Date Blanco Myles MD [address] [facility] [address] [place] [address] PCP - General Emergency Medicine 04/07/23 documented as of this encounter
--- OUTSIDE RECORDS SUMMARY | 2024-06-30 12:30 | XMS_ITS | Encounter Summary ---
Author Organization [facility] Address [address] [place] [address] Care Team Providers Care Artist Mannequin Coloring Name Role Phone Blanco Myles MD Primary Care Provider [phone] Reason for Visit * Reason Comments Follow-up Encounter Details Date Type Department Care Team (Late st Contact Info) Description 07/15/2023 13:00 EST Office Visit [facility] Ophthalmology - [address] [id number] Anjum Miranda MD [address] [facility], [address] [place] [address] Social History Tobacco Use Types [...] mg bevacizumab Route: intravitreal, Site: Left Eye FORMERLY NAMED [facility]: [address]-89, Lot: [id number], Expiration date: 07/15/2023 Post-op Post injection exam found visual acuity of at least counting fingers. The patient tolerated the procedure well. There were no complications. Post injection medications were not given. DIAGNOSES: 1. Exudative age-related macular degeneration of left eye with active choroidal neovascularization ([facility]) OCT, RETINA - OU [...] Info) Description 07/02/2024 13:30 EST Office Visit [facility] [place] [address] Anjum Miranda MD [address] [place] [address], [address] [place] [address] documented as of this encounter [...] - LEFT EYE (07/15/2023 14:18 EST) Narrative [facility] POINT OF CARE - 07/15/2023 14:32 EST Time Out 07/15/2023. 14:17. Confirmed correct patient, procedure, site, and patient consented. Anesthesia Topical anesthesia was used. Anesthetic medications included Proparacaine 0.5%, Tetracaine 0.5%. Procedure Preparation included 5% betadine to ocular surface, eyelid speculum. A 30 gauge needle was used. Injection: 1.25 mg bevacizumab ??Route: intravitreal, Site: Left Eye ??FORMERLY NAMED [facility]: [address]-38, Lot: [id number], Expiration date: 07/15/2023 Post-op Post injection exam found visual acuity of at least counting fingers. The patient tolerated the procedure well. There were no complications. Post injection medications were not given. us Anjum Miranda MD OPHTH CLINIC PROCEDURES Final Re sult [facility] POINT OF CARE * OCT, RETINA - OU - BOTH EYES (07/15/2023 14:13 EST) Narrative [facility] OPHTHALMOLOGY - 07/15/2023 14:32 EST Right Eye Progression has been stable. Left Eye Quality was good. Progression has improved. Findings include pigment epithelial detachment, subretinal fluid. Notes Drusen, no fluid right eye Decrease in SRHRM as well left eye Anjum Miranda MD OPHTH TOMOGRAPHY Final Result [facility] OPHTHALMOLOGY documented in this encounter Visit Diagnoses [...] Fri07/15/23 at 1432, Until Fri07/15/23 at 1432, RoutineIndications:Exudative age-related macular degeneration of 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) Given 07/15/2023 14:32 EST 1.25 mg Left Ey e documented in this encounter Orders Medications Ordered [...] by [facility] Vessels Normal Normal Care Teams Artist Mannequin Coloring Relationship Specialty Start Date End Date Blanco Mylse MD [address] [facility] [address] [place] [id number] PCP - General Emergency Medicine 04/07/23 documented as of this encounter
--- OUTSIDE RECORDS SUMMARY | 2024-06-30 12:30 | XMS_ITS | Encounter Summary ---
Author Organization [facility] Address [address] [place] [address] Care Team Providers Care Export Coordinator Name Role Phone Blanco Myles MD Primary Care Provider [phone] Reason for Visit * Reason Comments Follow-up Encounter Details Date Type Department Care Team (Late st Contact Info) Description 10/31/2023 13:00 EDT Office Visit [facility] Ophthalmology - [address] [phone] Anjum Miranda MD [address] [facility], [address] [place] [address] Social History Tobacco Use Types [...] bevacizumab Route: intravitreal, Site: Left Eye NDC: [address]-87, Lot: [id number], Expiration date: 11/02/2023 Post-op Post injection exam found visual acuity of at least counting fingers. The patient tolerated the procedure well. There were no complications. The patient received written and verbal post procedure care education. Post injection medications were not given. DIAGNOSES: 1. Exudative age-related macular degeneration of left eye with active choroidal neovascularization ([facility]) OCT, RETINA - OU - BOTH [...] Info) Description 07/02/2024 13:30 EST Office Visit [facility] Ophthalmology - [place] [address] [place] [address] Anjum Miranda MD [address] [facility], [address] [place] [id number] documented as of this encounter Procedures Procedure [...] - BOTH EYES (10/31/2023 14:12 EDT) Narrative [facility] OPHTHALMOLOGY - 10/31/2023 14:12 EDT Right Eye Progression has been stable. Left Eye Quality was good. Progression has worsened. Findings include intraretinal fluid, pigment epithelial detachment, subretinal fluid. 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 13:57. Confirmed correct patient, procedure, site, and patient consented. Anesthesia Topical anesthesia was used. Anesthetic medications included Proparacaine 0.5%, Tetracaine 0.5%. Procedure Preparation included 5% betadine to ocular surface, eyelid speculum. A 30 gauge needle was used. Injection: 1.25 mg bevacizumab ??Route: intravitreal, Site: Left Eye ??[facility]: [address]-54, Lot: [id number], Expiration date: 11/02/2023 Post-op Post injection exam found visual acuity of at least counting fingers. The patient tolerated the procedure well. There were no complications. The patient received written and verbal post procedure care education. Post injection medications were not given. Anjum Miranda MD OPHTH CLINIC PROCEDURES Final Re [facility]ult [facility] POINT [facility] documented in this encounter [...] Fri10/31/23 at 1413, Until Fri10/31/23 at 1413, RoutineIndications:Exudative age-related macular degeneration of 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) Given 10/31/2023 14:13 EDT 1.25 mg Left Ey e documented [...] Normal Normal Periphery Attached Attached Care Teams Export Coordinator Relationship Specialty Start Date End Date Blanco Myles MD [address] [facility] [address] [place] [address] PCP - General Emergency Medicine 04/07/23 documented as of this encounter
--- OUTSIDE RECORDS SUMMARY | 2024-06-30 12:30 | XMS_ITS | Encounter Summary ---
Author Organization [facility] Address [address] [place] [address] Care Team Providers Care Margarine Maker Name Role Phone Karo Otero MD Primary Care Provider [phone] Blanco Myles MD Primary Care Provider [phone] Encounter Details Date Type Department Care Team (Late st Contact Info) Description 07/25/2021 Lab Requisition [facility] Pathology & Laboratory Medicine - [address] [address] Outr Resulting Lab, Provider Social History Tobacco [...] No 01/07/2018 21:35 Kita Segovia RN * Are you blind or do you have serious difficulty seeing, even when wearing glasses? Answer Date of Assessment Author Yes 01/07/2018 21:35 EDT Franzoni, H rosalind, RN * Do you have serious difficulty [...] Kita Segovia RN documented in this encounter Plan of Treatment Upcoming Encounters Date Type Department Care Team (Late st Contact Info) Description 07/02/2024 13:30 EST Office Visit [facility] Ophthalmology - [address] [address] Anjum Miranda MD [address] [place] [address], [address] [place] [address] documented as of this encounter Procedures Procedure Name Priority Date/Time Associated Diagnosis Comments PSA TOTAL, DIAGNOSTIC Routine 07/25/2021 10:25 EST documented in this encounter Results * PSA TOTAL, DIAGNOSTIC (07/25/2021 10:25 EST) PSA 1.6 0.0 - 6.5 ng/mL 07/25/2021 23:23 EST [facility] Blood VENOUS BLOOD / Unknown 07/25/2021 10:25 EST 07/25/2021 22:16 EST Narrative [facility] - 07/25/2021 23:23 EST NOTE: Serum PSA concentration should not be interpreted as absolute evidence for the presence or absence of malignant disease. Assayed on Siemens ADVIA Centaur XPT using chemiluminescent technology.??Values obtained by using different assay methods cannot be used interchangeably. us Provider Outr Resulting Lab CHEMISTRY & BLOOD GA S ORDERABLES Final Result [facility] [address] [place] [address] documented in this encounter Visit Diagnoses Not on filedocumented in this encounter Care Teams Margarine Maker Relationship Specialty Start Date End Date Karo Otero MD [address] [place] [address] PCP - General 01/07/18 04/06/23 Blanco Myles MD [address] [facility] [address] [place] [address] PCP - General Emergency Medicine 04/07/23 documented as of this encounter
--- OUTSIDE RECORDS SUMMARY | 2024-06-30 12:30 | XMS_ITS | Encounter Summary ---
[place] [address] Care Team Providers Care Injection Mold Technician Name Role Phone Karo Otero MD Primary Care Provider [phone] Reason for Visit * Auth/Cert Specialty Diagnoses / Procedures Referred By Contac t Referred To Contact Diagnoses NSTEMI (non-ST elevated myocardial infarction) [place], CP ?CAD Procedures CARDIAC CATHETERIZATION PHOEBE IPI Referral ID Status Reason Start Date Expiration Date Visits Re quested Visits Authorized [id number] 1 1 Encounter Details Date Type Department Care Team (Late st Contact Info) Description 11/19/2017 10:00 AM EDT - 11/19/2017 11:00 AM EDT Surgery [place] [address] Julita Gomez MD [facility] [place] [address] CARDIAC CATHETERIZATION Social History Tobacco Use Types [...] Brothers III Patient Age: 76 y.o. Language: Azeri Race: White Ethnicity: OR Admit date: 11/18/2017 [...] synthroid Inpatient Provider Contact Information: Lara Bass, TOUR SALES REPRESENTATIVE Discharge Diagnoses (Hospital Problems) and Secondary Diagnoses [...] Brothers is a 76-year-old gentleman, transferred from [facility], with no known CAD, PMH of [...] course: ECG : NSR, normal axis, prolonged UT, J-point elevation in V2 less than 1mm. 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 Hospital Course: On admission to [facility], the patient had no complaints of chest pain or shortness of breath. Telemetry was attached which showed normal sinus rhythm. Heparin drip was infusing. [facility] records/transfer records were reviewed. Baseline labs were checked and/or drawn. NSTEMI Patient sent from [facility] in the setting of chest pain [...] appointments: During 8am-5pm Friday through Friday call [phone] to speak with a nurse in the cardiology clinic All other times call [phone] and ask to speak to the cashier tube room configuration management administrator. Return to work: Retired, no heavy lifting for one week (nothing greater than 5-7 lbs). Driving: No driving for 48 hours after catheterization. Follow up Appointments: PCP Karo Otero MD [phone] Your follow up appointment is scheduled for November 26, 2017 at 10:35 am (previously scheduled) Cardiology - Dr. Sukh Mishra [address] [place], [place] [id number] Your follow up appointment is scheduled for December 30, 2017 at 8:20 am (8 am arrival). Home oxygen therapy: N/A Arrangements for VNA/home care: none Future Appointments and Orders Future Appointments Provider Department Dept Phone 12/30/2017 8:20 AM Sukh Mishra Jr., MD [facility] at [place] [phone] 08/14/2018 8:45 AM Mathew Fernando MD D[facility]at[facility] at [place] [phone] Future Orders Complete By Expires Referral to Cardiac Rehab [[id number] Custom] As directed Process Instructions: If no progress note charted, please enter Clinical details in comments. Scheduling Instructions: Questions: My question or request is: NSTEMI. Cardiac rehab at [facility]. Discharge References/Attachments Jasmin Bass APRN 11/20/2017 [...] appointments: During 8am-5pm Friday through Friday call [phone] to speak with a nurse in the cardiology clinic All other times call [phone] and ask to speak to the cashier tube room configuration management administrator. Return to work: Retired, no heavy lifting for one week (nothing greater than 5-7 lbs). Driving: No driving for 48 hours after catheterization. Follow up Appointments: PCP Karo Otero MD [phone] Your follow up appointment is scheduled for November 26, 2017 at 10:35 am (previously scheduled) Cardiology - Dr. Sukh Mishra [address] [place] [address] Your follow up appointment is scheduled for [...] Cardiology Progress Note Patient Name: Tra Brothers [facility] Service: PRODUCE TEAM MEMBER / PA Responsible Attending: Dick Renteria MD [...] ??? sodium chloride 0.9% 100 mL/hr (11/18/17 2926) PRN Meds:sodium chloride 0.9 %, lidocaine, sodium [...] is a 76 y.o. male transferred from [facility], with no known CAD, PMH of hypertension, HLD, CKD stage 3 who was transferred to [facility] in the setting of chest pain with elevated troponin. EKG without acute changes. He has had no further episodes since arrival to [facility]. Patient sent for coronary angiography on 11/19 [...] Discussed with Dick Renteria MD Emily Lubell, [place] 11/20/2017 Cardiology Staff Addendum I have discussed, [...] PCI with 3.0 x 15 mm Resolute Mono JENNI No significant disease in RCA LVEDP [...] EDT Inpatient Cardiology Progress Note Patient Name: [facility] Service: PRODUCE TEAM MEMBER / PA Responsible Attending: Dick Renteria MD [...] been chest pain free since arrival to [facility]. NPO for cardiac catheterization today. Review of [...] is a 76 y.o. male transferred from [facility], with no known CAD, PMH of hypertension, HLD, CKD stage 3 who was transferred to [facility] in the setting of chest pain with elevated troponin. EKG without acute changes. He has had no further episodes since arrival to [facility]. Awaiting cardiac catheterization at this time. Plan: [...] Pre- cath fluids Full Code Lara Bass, [place] 11/19/2017 Cardiology Staff Addendum I have discussed, [...] Brothers is a 76-year-old gentleman, transferred from [facility], with no known CAD, PMH of [...] course: ECG : NSR, normal axis, prolonged UT, J-point elevation in V2 less than 1mm. 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 Pulses palpable, no calf tenderness Neuro/ELECTRICAL MAINTENANCE MAN: AAO x 3, No evident deficits Skin/Integumentary: [...] responsive. ECG : NSR, normal axis, prolonged UT, J-point elevation in V2 less than 1mm. [...] a referral for outpatient cardiac rehab at [facility]. The referral will be sent to [facility] at discharge. Activity Summary: By discharge, [...] -- OUTCOME EVALUATION NOTE: OUTCOME SUMMARY: Mr. Deneen wrighties sam or other c/o. Anticipating dc this [...] for doing Advance Directives. Provided copy(ies) of [place] [employer] [facility] Advance Directives Taking Steps booklet [...] Specific Information: none Health/Prescription Coverage: Primary Insurance: [facility] MANAGED MEDICARE Secondary Insurance: N/A Prescription Coverage: yes Preferred Pharmacy: [facility] Primary Care Provider: Karo Otero MD [phone] Patient/Caregiver Goals of Treatment: discharge to home [...] of care planning. Susana Henning RN Pager: [phone] * Consult Note - Medina Krueger RN [...] in an outpatient cardiac rehabilitation program at [facility] was discussed. Patient agrees to a [...] Heparin gtt infusing. Had one episode of 08/27 chest pain. Described as a twinge. Zully [...] note from today for further details. Reagan Anrdea MD 11/18/2017 Pager [phone] documented in this encounter Plan of Treatment Upcoming Encounters Date Type Department Care Team (Late st Contact Info) Description 10/07/2024 3:00 PM EST Office Visit Cardiology at [address] [phone] Joel Link MD [facility] [place] [address] 01/18/2025 10:15 AM EDT Office Visit Dermatology at [address] [place] [address] Mathew Fernando MD [address] [facility] [place] [address] Scheduled Referrals Name Type Priority Associated Diagnoses Orde r Schedule Referral to Cardiac Rehab Outpatient Referral Routine Non-ST elevation myocardial infarction (NSTEMI) Ordered: 11/20/2017 documented as of this encounter Procedures Procedure Name Priority Date/Time Associated Diagnosis Comments WREATH MAKER SCAN 11/21/2017 12:00 AM EDT BMP W/FASTING GLUCOSE Routine 11/20/2017 4:22 AM EDT HEMOGRAM Routine 11/20/2017 4:22 AM EDT DIFFERENTIAL, AUTOMATED Routine 11/21/19 18 4:22 AM EDT CARDIAC ENZYMES ([facility]) Routine 11/20/2017 4:22 AM EDT CBC (WITH [...] Routine 11/19/2017 8:39 AM EDT CARDIAC ENZYMES ([facility]) STAT 11/19/2017 8:39 AM EDT XR CHEST ONE VIEW Routine 11/19/2017 6:3 1 AM EDT HEPARIN (UNFRACTIONATED) LEVEL Routine 11/19/2017 2:25 AM EDT HEMOGRAM Routine 11/19/2017 2:25 AM EDT DIFFERENTIAL, AUTOMATED Routine 11/20/19 2:25 AM EDT CARDIAC ENZYMES ([facility]) STAT 11/19/2017 2:25 AM EDT CBC (WITH [...] 11/19/19 18 8:33 PM EDT CARDIAC ENZYMES ([facility]) STAT 11/18/2017 8:33 PM EDT APTT STAT [...] in this encounter Results * SCAN DOC: WREATH MAKER (11/21/2017 12:00 AM EDT) Anatomical Region Laterality Modality Other Narrative 11/21/2017 12:00 AM EDT Ordered by an unspecified provider. Scanning Provider MEDIA MGR SCAN EXT O RDR/RSLT * T4, free (11/20/2017 4:22 AM EDT) Free T4 1.16 0.93 - 1.70 ng/dL [facility] Blood specimen (specimen) Venous Draw / Unknown 11/20/2017 4:22 AM EDT 11/20/2017 4:39 AM EDT Narrative Resulting Agency Comment Spec In Lab Lara Aguero APRN CHEMISTRY ORDERABLES Performing Organization Address City/[facility] Co de Phone Number [facility] [place] [address] * T3, free (11/20/2017 4:22 AM EDT) Pathologist [facility] Free T3 2.6 2.0 - 4.4 pg/mL [facility] Blood specimen (specimen) Venous Draw / Unknown 11/20/2017 4:22 AM EDT 11/20/2017 4:39 AM EDT Narrative Resulting Agency Comment Spec In Lab Lara Aguero TOUR SALES REPRESENTATIVE CHEMISTRY ORDERABLES Performing Organization Address [facility] Co de Phone Number [facility] [place] [address] * (ABNORMAL) TSH (11/20/2017 4:22 AM EDT) [facility] Thyroid Stimulating Hormone 6.29(H) 0.27 - 4.20 mlU/ML [facility] Blood specimen (specimen) Venous Draw / Unknown 11/20/2017 4:22 AM EDT 11/20/2017 4:39 AM EDT Narrative Resulting Agency Comment Spec In Lab Lara Aguero TOUR SALES REPRESENTATIVE CHEMISTRY ORDERABLES Performing Organization Address City/[facility]/ZIP Co de Phone Number [facility] [place] [address] * Differential, Automated (11/20/2017 4:22 AM EDT) Neutrophil % 59.0 % [facility] Neutrophil Absolute 3.72 1.70 - 6.10 x10(3)/[facility] Lymph % 27.5 % [facility] Lymphocytes Abs 1.7 0.9 - 3.2 x10(3)/[facility] Monocyte % 9.4 % [facility] Monocyte Abs 0.6 0.3 - 0.9 x10(3)/[facility] Eos % 3.0 % [facility] Eosinophils Abs 0.2 0.0 - 0.4 x10(3)/[facility] Basophil % 0.8 % [facility] Baso Absolute 0.0 0.0 - 0.1 x10(3)/[facility] Immature Gran % 0.30 % [facility] Comment: Immature granulocytes(IG's)percentage and absolute count will include metamyelocytes, myelocytes, and promyelocytes. Blood smears from CBCs yielding IG's will be scanned manually for concordance. If this scan disagrees with the automated IG or if promyelocytes are noted, a manual differential will be performed. Immature Gran Absolute 0.02 0.00 - 0.04 x10(3)/[facility] Blood specimen (specimen) 11/20/2017 4:22 AM EDT 11/20/2017 4:37 AM EDT Narrative Resulting Agency Comment Spec In Lab Reagan Andrea MD HEMATOLOGY ORDERABLE S [facility] [place] [address] * (ABNORMAL) Hemogram (11/20/2017 4:22 AM EDT) White Blood Cell 6.3 4.0 - 9.5 x10(3)/mc L [facility] Red Blood Cell 4.56(L) 4.58 - 5.54 x10(6)/mc L [facility] Hemoglobin 13.3(L) 13.7 - 16.5 gm/dL [facility] Hematocrit 40.0(L) 40.5 - 48.5 % [facility] Mean Cell Volume 87.7 82.9 - 93.1 fL [facility] Mean Cell Hemoglobin 29.2 27.5 - 32.1 pg [facility] Mean Cell Hemoglobin Concentration 33.3 32.0 - 35.7 gm/dL [facility] Platelet 135(L) 145 - 357 x10(3)/mc L [facility] RDW Standard Deviation 42.9 36.0 - 45.0 fL [facility] RDW coefficient of variation 13.2 11.4 - 13.8 % [facility] Mean Platelet Volume 10.5 7.6 - 12.9 fL [facility] NRBC% auto 0.0 % [facility] NRBC Absolute 0.000 0.000 - 0.000 x10(3)/mc L [facility] Blood specimen (specimen) 11/20/2017 4:22 AM EDT 11/20/2017 4:37 AM EDT Narrative Resulting Agency Comment Spec In Lab Reagan Andrea MD HEMATOLOGY ORDERABLE S Performing Organization Address City/State/[facility] Co de Phone Number [facility] [place] [address] * (ABNORMAL) BMP w/fasting Glucose (11/20/2017 4:22 AM EDT) Glucose Fasting 101(H) 65 - 99 mg/dL [facility] Comment: ?Fasting* Glucose Interpretive [...] of Diabetes Mellitus, Position Statement from the [place] [employer]. ??Diabetes Care, Volume 33, Supplement 1, Aug 2009 Blood Urea Nitrogen 20 10 - 20 mg/dL [facility] Creatinine 1.54(H) 0.80 - 1.50 mg/dL [facility] Sodium 144 135 - 145 mmol/L [facility] Potassium 4.3 3.5 - 5.0 mmol/L [facility] Comment: Please note: ??Patients with WBC >100,000 may have falsely elevated Potassium levels. ??For accurate Potassium quantification in these patients send serum separator tube (gold top) for subsequent determinations. ??Contact the Clinical Chemistry Laboratory if there are any questions. Chloride 104 98 - 107 mmol/L [facility] Carbon Dioxide 22 22 - 31 mmol/L [facility] Anion Gap 18(H) 5 - 15 mmol/L [facility] Calcium 8.9 8.5 - 10.5 mg/dL [facility] Est Glomerular Filtration Rate 44(L) >=60 [facility] Comment: The reported eGFR should be multiplied by 1.2 for patients. The MDRD is not an appropriate measure of renal function for patients with body mass extremes or in patients with acute kidney failure. http://[employer].HauteLook/DHnkdep http://[employer]/DHMCnkf Blood specimen (specimen) 11/20/2017 4:22 AM EDT 11/20/2017 4:37 AM EDT Narrative Resulting Agency Comment Spec In Lab Lara Aguero APRN CHEMISTRY ORDERABLES [facility] [place] [address] * (ABNORMAL) Cardiac Enzymes (LEB/CGP) (11/20/2017 4:22 AM EDT) Troponin-T 0.16(H) 0.00 - 0.00 ng/mL [facility] Comment: The 99th percentile [...] ischemia ?? New or presumed new significant HJ-nzmvrmb-N wave (ST-T) changes or new left bundle [...] additional sample may be indicated. Reference: Third Procious Definition of Myocardial Infarction. Journal of the [place] College [employer]iology 2012;60:1581-98 Creatine Kinase 127 0 - 200 unit/L [facility] Blood specimen (specimen) 11/20/2017 4:22 AM EDT 11/20/2017 4:37 AM EDT Narrative Resulting Agency Comment Spec In Lab Julita Goemz MD CHEMISTRY ORDERAB LES [facility] [place] [address] * EKG 12 Lead (11/19/2017 10:46 AM EDT) Ventricular rate 51 BPM MUSE SYSTEM Atrial Rate 51 BPM MUSE SYSTEM P-R Interval 220 ms MUSE SYSTEM QRS Duration 80 ms MUSE SYSTEM Q-T Interval 504 ms MUSE SYSTEM QTC Calculated (Bezet) 464 ms MUSE SYSTEM Calculated P [place] 24 degrees MUSE SYSTEM Calculated R [place] -3 degrees MUSE SYSTEM Calculated T [place] 69 degrees MUSE SYSTEM INTERPRETATION Sinus bradycardia [...] Modality Other Narrative 11/19/2017 12:31 PM EDT ?[facility] ? Cardiac Catheterization/Intervention Report ? Patient Name: Deneen, Tra ? Procedure Date: 11/19/2017 ? A #: [id number] ? Primary Physician: Julita Gomez ? Case #: [id number] ? File Name: [id number] ? Catheterization Order Number: [id number] ? [facility] ? Final Report [place], [place] ? Patient Name: ? Tra Garges ?ID#: ?[id number] ? : ?1940 ? Procedure Date: ? [...] patient presented with: non-STEMI (w/i 7 days). [place]ese ?Cardiovascular Society angina class was IV. No [...] dose administered prior to arrival in the laborer cement gun placing. ?Recommend continuing clopidogrel 75 mg PO daily [...] Procedure Note Julita Gomez MD - 11/19/2017 [facility] Cardiac Catheterization/Intervention Report Patient Name: Tra Brothers Procedure Date: 11/19/2017 A #: [id number] Primary Physician: Julita Gomez Case #: [id number] File Name: [id number] Catheterization Order Number: [id number] [facility] FinalReport [place], [place] Patient Name: Tra Brothers ID#:[id number] :1940 Procedure Date: November 19, 2017 Case [...] patient presented with: non-STEMI (w/i 7 days). [place] Cardiovascular Society angina class was IV. No [...] 13.6 minutes, dose area product was 96,350 [id number] air kerma was 793 mGY. The patient [...] priority for the procedure was Urgent. The [facility] indication for the procedure was NSTE-ACS. Intervention [...] The lesion was predilated with a 2.50mm [id number] MM balloon with a maximum inflation pressure [...] The lesion was predilated with a 2.50mm [id number] MM balloon with a maximum inflation pressure [...] dose administered prior to arrival in the laborer cement gun placing. Recommend continuing clopidogrel 75 mg PO daily [...] GALLARDO ? (Age): 1940(76y) Med Rec#: ? [id number] ?Sex: ?M ? Site Loc: ? [facility] ?Ht / Wt: ??180(cm)/97(kg) Pt. Loc: ?Adult Floor ? BSA: ?2.17 Study Date: ?? 11/19/2017 ?Pt. Type: Inpatient Tape: ? Referring: NORRIS DELEON J Reading: Rustam Dave ([id number]) Core Cutter And Reamer: Andrea Esparza RDCS Diagnosis: *ICD-10-PCS Non-ST elevation (NSTEMI) myocardial infarction [...] E-wave Vmax ?0.7 ?m/sec ? MV deceleration [id number] ?msec ? MV A-wave Vmax ?0.8 ?m/sec [...] ? Mid-Inferior ?Normal ? Mid-Inferoseptal ?Normal ? [place]-Septal ? Normal ? [place]-Anterior ? Normal ? [place]-Lateral ?Normal ? [place]-Inferior ? Normal ? [place]-Tip ?Normal ? This report has been electronically signed by: Rustam Dave M.D. ? 11/19/2017 09:50:55 Images reviewed and interpretation verified [facility] Cardiac Ultrasound Laboratory Procedure Note Rustam Dave MD - 11/19/2017 Procedure: Transthoracic Echocardiogram Patient: DENEEN WISDOM(Age): 1940(76y) Med Rec#: [id number] Sex: M Site Loc: [facility] Ht / Wt: 180(cm)/97(kg) Pt. Loc: Adult Floor BSA: 2.17 Study Date: 11/19/2017 Pt. Type: Inpatient Tape: Referring: NORRIS DELEON J Reading: Rustam Dave ([id number]) Core Cutter And Reamer: Andrea Esparza RDCS Diagnosis: *ICD-10-PCS Non-ST elevation (NSTEMI) myocardial infarction [...] MV E-wave Vmax 0.7 m/sec MV deceleration [id number] msec MV A-wave Vmax 0.8 m/sec MV [...] Normal Mid-Posterolateral Akinetic Mid-Inferior Normal Mid-Inferoseptal Normal [place]-Septal Normal [place]-Anterior Normal [place]-Lateral Normal [place]-Inferior Normal [place]-Tip Normal This report has been electronically signed by: Rustam Dave M.D. 11/19/2017 09:50:55 Images reviewed and interpretation verified [facility] Cardiac Ultrasound Laboratory Reagan Andrea MD ECHO ORDERABLES * Heparin (unfractionated) Level (11/19/2017 8:39 AM EDT) UF Heparin 0.45 IU/mL [facility] Comment: Guidelines for therapeutic unfractionated [...] Lab Reagan Andrea MD HEMATOLOGY ORDERABLE S [facility] [place] [address] * (ABNORMAL) Cardiac Enzymes (LEB/CGP) (11/19/2017 8:39 AM EDT) Troponin-T 0.04(H) 0.00 - 0.00 ng/mL [facility] Comment: The 99th percentile [...] ischemia ?? New or presumed new significant IC-shdtihw-I wave (ST-T) changes or new left bundle [...] additional sample may be indicated. Reference: Third Procious Definition of Myocardial Infarction. Journal of the [place] College [employer]iology 2012;60:1581-98 Creatine Kinase 105 0 - 200 unit/L [facility] Blood specimen (specimen) 11/19/2017 8:39 AM EDT 11/19/2017 8:51 AM EDT Narrative Resulting Agency Comment Spec In Lab Reagan Andrea MD CHEMISTRY ORDERABLES [facility] [place] [address] * XR Chest PA or AP 1 [...] 2:25 AM EDT) UF Heparin 0.44 IU/mL [facility] Comment: Guidelines for therapeutic unfractionated [...] Lab Reagan Andrea MD HEMATOLOGY ORDERABLE S [facility] [place] [address] * Differential, Automated (11/19/2017 2:25 AM EDT) Neutrophil % 59.0 % [facility] Neutrophil Absolute 3.68 1.70 - 6.10 x10(3)/[facility] Lymph % 28.0 % [facility] Lymphocytes Abs 1.8 0.9 - 3.2 x10(3)/[facility] Monocyte % 10.3 % [facility] Monocyte Abs 0.6 0.3 - 0.9 x10(3)/[facility] Eos % 1.8 % [facility] Eosinophils Abs 0.1 0.0 - 0.4 x10(3)/[facility] Basophil % 0.6 % [facility] Baso Absolute 0.0 0.0 - 0.1 x10(3)/[facility] Immature Gran % 0.30 % [facility] Comment: Immature granulocytes(IG's)percentage and absolute count will include metamyelocytes, myelocytes, and promyelocytes. Blood smears from CBCs yielding IG's will be scanned manually for concordance. If this scan disagrees with the automated IG or if promyelocytes are noted, a manual differential will be performed. Immature Gran Absolute 0.02 0.00 - 0.04 x10(3)/[facility] Blood specimen (specimen) 11/19/2017 2:25 AM EDT 11/19/2017 2:40 AM EDT Narrative Resulting Agency Comment Spec In Lab Reagan Andrea MD HEMATOLOGY ORDERABLE S [facility] [place] [address] * (ABNORMAL) Hemogram (11/19/2017 2:25 AM EDT) White Blood Cell 6.2 4.0 - 9.5 x10(3)/[facility] Red Blood Cell 4.65 4.58 - 5.54 x10(6)/[facility] Hemoglobin 13.5(L) 13.7 - 16.5 gm/dL [facility] Hematocrit 40.4(L) 40.5 - 48.5 % [facility] Mean Cell Volume 86.9 82.9 - 93.1 fL [facility] Mean Cell Hemoglobin 29.0 27.5 - 32.1 pg [facility] Mean Cell Hemoglobin Concentration 33.4 32.0 - 35.7 gm/dL [facility] Platelet 156 145 - 357 x10(3)/[facility] RDW Standard Deviation 41.2 36.0 - 45.0 [facility] RDW coefficient of variation 13.1 11.4 - 13.8 % [facility] Mean Platelet Volume 10.6 7.6 - 12.9 [facility] NRBC% auto 0.0 % [facility] NRBC Absolute 0.000 0.000 - 0.000 x10(3)/[facility] Blood specimen (specimen) 11/19/2017 2:25 AM EDT 11/19/2017 2:40 AM EDT Narrative Resulting Agency Comment Spec In Lab Reagan Andrea MD HEMATOLOGY ORDERABLE S [facility] [place] [address] * Hemoglobin A1c (11/19/2017 2:25 AM EDT) Hemoglobin A1c 5.4 4.3 - 5.6 % [facility] Comment: Reference Range: 4.3 [...] Mellitus, Diabetes Care 2013; 36: Suppl. 1, H57-43 Estimated Average Glucose See note mg/dL [facility] Comment: Estimated Average Glucose [...] into estimated average glucose values. ??Diabetes Care 2008:31(8):2428-9929. Blood specimen (specimen) 11/19/2017 2:25 AM EDT 11/19/2017 2:40 AM EDT Narrative Resulting Agency Comment Spec In Lab Reagan Andrea MD CHEMISTRY ORDERABLES [facility] [place] [address] * (ABNORMAL) Basic Metabolic Panel (non-fasting) (11/19/2017 2:25 AM EDT) Glucose 99 65 - 199 mg/dL [facility] Comment:Diabetes: >=200 mg/d L plus symptoms Blood Urea Nitrogen 25(H) 10 - 20 mg/dL [facility] Creatinine 1.56(H) 0.80 - 1.50 mg/dL [facility] Sodium 138 135 - 145 mmol/L [facility] Potassium 3.8 3.5 - 5.0 mmol/L [facility] Comment: Please note: ??Patients with WBC >100,000 may have falsely elevated Potassium levels. ??For accurate Potassium quantification in these patients send serum separator tube (gold top) for subsequent determinations. ??Contact the Clinical Chemistry Laboratory if there are any questions. Chloride 103 98 - 107 mmol/L [facility] Carbon Dioxide 26 22 - 31 mmol/L [facility] Anion Gap 9 5 - 15 mmol/L [facility] Calcium 8.7 8.5 - 10.5 mg/dL [facility] Est Glomerular Filtration Rate 43(L) >=60 [facility] Comment: The reported eGFR should be multiplied by 1.2 for patients. The MDRD is not an appropriate measure of renal function for patients with body mass extremes or in patients with acute kidney failure. http://[employer]HauteLook/DHnkdep http://[employer]Look/DHMCnkf Blood specimen (specimen) 11/19/2017 2:25 AM EDT 11/19/2017 2:40 AM EDT Narrative Resulting Agency Comment Spec In Lab Reagan Andrea MD CHEMISTRY ORDERABLES [facility] [place] [address] * Lipid Panel (11/19/2017 2:25 AM EDT) Pathologist [facility] Cholesterol, Total 158 mg/dL [facility] Comment: Lower Risk: <200 mg/dL Average Risk: 200-239 mg/dL Higher Risk: >mm=525 mg/dL Triglyceride 96 mg/dL [facility] Comment: Average Risk/Lower Risk: <150 mg/dL Borderline High Risk: 150-199 mg/dL High Risk: 200-499 mg/dL Very High Risk: >nm=511 mg/dL HDL Cholesterol 53 mg/dL [facility] Comment: Males: ?? Higher Risk: <40 mg/dL Females: ?? HIgher Risk: <50 mg/dL LDL Cholesterol 86 mg/dL [facility] Comment: Lowest Risk: <100 mg/dL Lower Risk: 100-129 mg/dL Borderline High Risk: 130-159 mg/dL High Risk: 160-189 mg/dL Very High Risk: >ey=686 mg/dL Cholesterol/HDL Ratio 3.0 ratio [facility] Lipid Interpretation See Note [facility] Comment: Lipid management should be guided by a patient? s ASCVD risk, goals and preferences. ACC/AHA Guidelines recommend high intensity statin if clinical ASCVD or LDL greater than or equal to 190 mg/dL. http://[employer].com/BXX-POP-Dlthcillz Adults aged 40-75 with LDL 70-189 mg/dL should have their 10 year ASCVD risk estimated with the ACC/AHA ASCVD risk assistant shift supervisor http://tools.acc.org/UHCAN-Rjfh-Uqdjrxxoz/ Statin should be discussed if risk greater [...] In Lab Reagan Andrea MD CHEMISTRY ORDERABLES [facility] [place] [address] * (ABNORMAL) Cardiac Enzymes (LEB/CGP) (11/19/2017 2:25 AM EDT) [facility] Troponin-T 0.05(H) 0.00 - 0.00 ng/mL [facility] Comment: The 99th percentile [...] ischemia ?? New or presumed new significant SC-eavfpcz-U wave (ST-T) changes or new left bundle [...] additional sample may be indicated. Reference: Third Procious Definition of Myocardial Infarction. Journal of the [place] College [employer]iology 2012;60:1581-98 Creatine Kinase 104 0 - 200 unit/L [facility] Blood specimen (specimen) 11/19/2017 2:25 AM EDT 11/19/2017 2:41 AM EDT Narrative Resulting Agency Comment Spec In Lab Reagan Andrea MD CHEMISTRY ORDERABLES Performing Organization Address [facility]/ZIP Co de Phone Number [facility] [place] [address] * EKG 12 Lead (11/18/2017 11:57 PM EDT) Pathologist [facility] Ventricular rate 58 BPM MUSE SYSTEM Atrial Rate 58 BPM MUSE SYSTEM P-R Interval 226 ms MUSE SYSTEM QRS Duration 86 ms MUSE SYSTEM Q-T Interval 450 ms MUSE SYSTEM QTC Calculated (Bezet) 441 ms MUSE SYSTEM Calculated P [place] 33 degrees MUSE SYSTEM Calculated R [place] 2 degrees MUSE SYSTEM Calculated T [place] 66 degrees MUSE SYSTEM INTERPRETATION Sinus bradycardia with 1st degree A-V block Otherwise normal ECG When compared with ECG of 18-NOV-2017 20:26, (unconfirmed) No significant change was found Confirmed by MD ENCISO ALAN ([id number]) on 11/19/2017 10:16:27 AM MUSE SYSTEM 11/18/2017 11:5 7 PM EDT 11/19/2017 10:16 AM EDT Reagan Andrea MD ECG ORDERABLES Performing Organization Address [facility]/[place]UST de Phone Number MUSE SYSTEM * Heparin (unfractionated) Level (11/18/2017 8:33 PM EDT) UF Heparin 0.66 IU/mL [facility] Comment: Guidelines for therapeutic unfractionated [...] MD HEMATOLOGY ORDERABLE S Performing Organization Address [facility]/[place] [address] * Differential, Automated (11/18/2017 8:33 PM EDT) Neutrophil % 62.8 % [facility] Neutrophil Absolute 5.08 1.70 - 6.10 x10(3)/[facility] Lymph % 25.8 % [facility] Lymphocytes Abs 2.1 0.9 - 3.2 x10(3)/[facility] Monocyte % 8.7 % [facility] Monocyte Abs 0.7 0.3 - 0.9 x10(3)/[facility] Eos % 1.5 % [facility] Eosinophils Abs 0.1 0.0 - 0.4 x10(3)/[facility] Basophil % 0.7 % [facility] Baso Absolute 0.1 0.0 - 0.1 x10(3)/[facility] Immature Gran % 0.50 % [facility] Comment: Immature granulocytes(IG's)percentage and absolute count will include metamyelocytes, myelocytes, and promyelocytes. Blood smears from CBCs yielding IG's will be scanned manually for concordance. If this scan disagrees with the automated IG or if promyelocytes are noted, a manual differential will be performed. Immature Gran Absolute 0.04 0.00 - 0.04 x10(3)/[facility] Blood specimen (specimen) 11/18/2017 8:33 PM EDT 11/18/2017 8:52 PM EDT Narrative Resulting Agency Comment Spec In Lab Reagan Andrea MD [place] [address] * Hemogram (11/18/2017 8:33 PM EDT) Pathologist [facility] White Blood Cell 8.1 4.0 - 9.5 x10(3)/[facility] Red Blood Cell 5.15 4.58 - 5.54 x10(6)/[facility] Hemoglobin 14.8 13.7 - 16.5 gm/dL [facility] Hematocrit 44.9 40.5 - 48.5 % [facility] Mean Cell Volume 87.2 82.9 - 93.1 [facility] Mean Cell Hemoglobin 28.7 27.5 - 32.1 pg [facility] Mean Cell Hemoglobin Concentration 33.0 32.0 - 35.7 gm/dL [facility] Platelet 189 145 - 357 x10(3)/[facility] RDW Standard Deviation 41.7 36.0 - 45.0 [facility] RDW coefficient of variation 13.2 11.4 - 13.8 % [facility] Mean Platelet Volume 10.5 7.6 - 12.9 [facility] NRBC% auto 0.0 % [facility] NRBC Absolute 0.000 0.000 - 0.000 x10(3)/[facility] Blood specimen (specimen) 11/18/2017 8:33 PM EDT 11/18/2017 8:52 PM EDT Narrative Resulting Agency Comment Spec In Lab Reagan Andrea MD HEMATOLOGY ORDERABLE S Performing Organization Address City/State/[facility] Co de Phone Number [facility] [place] [address] * (ABNORMAL) APTT (11/18/2017 8:33 PM EDT) Partial Thromboplastin Time 105(Criti john) 25 - 37 sec [facility] Comment: Called by: [facility], Read back by: Kira Clemons, Date/Time:11/18/17 21:20. [...] MD HEMATOLOGY ORDERABLE S Performing Organization Address [facility] Co de Phone Number [facility] [place] [address] * Prothrombin Time (11/18/2017 8:33 PM EDT) Prothrombin Time 11.2 9.4 - 12.5 sec [facility] International Normalization Ratio 1.0 [facility] Comment: An INR <2.0 indicates adequate [...] MD HEMATOLOGY ORDERABLE S Performing Organization Address [facility] Co de Phone Number [facility] [place] [address] * pro-Brain Natriuretic Peptide (11/18/2017 8:33 PM EDT) NT-proBNP 431 <=450 pg/mL [facility] Blood specimen (specimen) 11/18/2017 8:33 PM EDT 11/18/2017 8:52 PM EDT Narrative Resulting Agency Comment Spec In Lab Reagan Andrea MD CHEMISTRY ORDERABLES Performing Organization Address [facility] Co de Phone Number [facility] [place] [address] * Hepatic Function Panel (11/18/2017 8:33 PM EDT) [facility] Protein, Total 7.1 6.1 - 8.0 gm/dL [facility] Albumin 4.3 3.2 - 5.2 gm/dL [facility] Aspartate Aminotransferase 30 0 - 39 unit/L [facility] Alanine Aminotransferase 23 0 - 55 unit/L [facility] Alkaline Phosphatase 88 40 - 120 unit/L [facility] Bilirubin, Total 0.5 0.2 - 1.3 mg/dL [facility] Bilirubin, Direct 0.1 0.0 - 0.3 mg/dL [facility] Blood specimen (specimen) 11/18/2017 8:33 PM EDT 11/18/2017 8:52 PM EDT Narrative Resulting Agency Comment Spec In Lab Reagan Andrea MD CHEMISTRY ORDERABLES Performing Organization Address City/State/[facility] Co de Phone Number [facility] [place] [phone] * (ABNORMAL) Cardiac Enzymes (LEB/CGP) (11/18/2017 8:33 PM EDT) [facility] Troponin-T 0.09(H) 0.00 - 0.00 ng/mL [facility] Comment: The 99th percentile [...] ischemia ?? New or presumed new significant SV-gfgermx-F wave (ST-T) changes or new left bundle [...] additional sample may be indicated. Reference: Third Procious Definition of Myocardial Infarction. Journal of the [employer] College [employer] Cardiology 2012;60:1581-98 Creatine Kinase 119 0 - 200 unit/L [facility] Blood specimen (specimen) 11/18/2017 8:33 PM EDT 11/18/2017 8:52 PM EDT Narrative Resulting Agency Comment Spec In Lab Reagan Andrea MD CHEMISTRY ORDERABLES [facility] [place] [address] * (ABNORMAL) Basic Metabolic Panel (non-fasting) (11/18/2017 8:33 PM EDT) Glucose 92 65 - 199 mg/dL [facility] Comment:Diabetes: >=200 mg/d L plus symptoms Blood Urea Nitrogen 27(H) 10 - 20 mg/dL [facility] Creatinine 1.46 0.80 - 1.50 mg/dL [facility] Sodium 141 135 - 145 mmol/L [facility] Potassium 3.9 3.5 - 5.0 mmol/L [facility] Comment: Please note: ??Patients with WBC >100,000 may have falsely elevated Potassium levels. ??For accurate Potassium quantification in these patients send serum separator tube (gold top) for subsequent determinations. ??Contact the Clinical Chemistry Laboratory if there are any questions. Chloride 101 98 - 107 mmol/L [facility] Carbon Dioxide 25 22 - 31 mmol/L [facility] Anion Gap 15 5 - 15 mmol/L [facility] Calcium 9.2 8.5 - 10.5 mg/dL [facility] Est Glomerular Filtration Rate 47(L) >=60 [facility] Comment: The reported eGFR should be multiplied by 1.2 for patients. The MDRD is not an appropriate measure of renal function for patients with body mass extremes or in patients with acute kidney failure. http://[employer]/DHnkdep http://[employer]/DHMCnkf Blood specimen (specimen) 11/18/2017 8:33 PM EDT 11/18/2017 8:52 PM EDT Narrative Resulting Agency Comment Spec In Lab Reagan Andrea MD CHEMISTRY ORDERABLES Performing Organization Address City/[facility] Co de Phone Number [facility] [place] [address] * EKG 12 Lead (11/18/2017 8:26 PM EDT) Ventricular rate 55 BPM MUSE SYSTEM Atrial Rate 55 BPM MUSE SYSTEM P-R Interval 216 ms MUSE SYSTEM QRS Duration 88 ms MUSE SYSTEM Q-T Interval 438 ms MUSE SYSTEM QTC Calculated (Bezet) 419 ms MUSE SYSTEM Calculated P [place] 36 degrees MUSE SYSTEM Calculated T [place] 42 degrees MUSE SYSTEM INTERPRETATION Sinus bradycardia with 1st degree A-V block Otherwise normal ECG No previous ECGs available Confirmed by MD ENCISO ALAN ([id number]) on 11/19/2017 10:16:03 AM MUSE SYSTEM 11/18/2017 8:26 PM EDT 11/19/2017 10:16 AM EDT Reagan Andrea MD ECG ORDERABLES Performing Organization Address City/[facility] Co de Phone Number MUSE SYSTEM documented in this encounter Visit [...] area)1254 (MAR Unhold - Provider: Admin Adt) 0802 (Given - Provider: Mathew Stringer RN) atorvastatin (LIPITOR) tablet 80 mg 80 mg, Oral, EVERY EVENING, First dose on Fri11/18/17 at 2315, Until Discontinued, Routine 2336 (Given - Provider: Zeinab Ferris RN) 1016 (OCT Hold - Provider: Admin Adt - Reason: Transfer to a Procedural area)1254 ([facility] Unhold - Provider: Admin Adt)1653 (Given - [...] Reason: See comment - Comment: allready given)1016 ([facility] Hold - Provider: Admin Adt - Reason: Transfer to a Procedural area)1254 ([facility] Unhold - Provider: Admin Adt)2012 (Given - Provider: Kong Brennan RN) 0801 (Given - Provider: Mathew Stringer RN) clopidogrel (PLAVIX) tablet 75 mg 75 mg, Oral, DAILY, First dose on Fri11/19/17 at 0900, Until Discontinued, Routine 0818 (Given - Provider: Mathew Stringer RN)1016 (OCT Hold - Provider: Admin Adt - Reason: Transfer to a Procedural area)1254 ([facility] Unhold - Provider: Admin Adt) 0802 (Given - Provider: Mathew Stringer, MANAN) losartan (COZAAR) tablet 100 mg 100 mg, [...] 55 or if SBP < 90, Routine 08 (Given - Provider: Mathew Stringer RN)1016 (OCT Hold - Provider: Admin Adt - Reason: Transfer to a Procedural area)1254 (OCT Unhold - Provider: Admin Adt)2013 (Given - Provider: Kong Brennan RN) 0801 (Given - Provider: Mathew Stringer RN) sodium chloride 0.9 % flush 5 mL 5 mL, Intravenous, EVERY 12 HOURS, First dose on Fri11/18/17 at 2045, Until Discontinued, Routine 2044 (Given - Provider: Zeinab Ferris RN) 0845 (Given - Provider: Mathew Stringer RN)1016 (OCT Hold - Provider: Admin Adt - Reason: Transfer to a Procedural area)1254 (OCT Unhold - Provider: Admin Adt)2014 (Given - Provider: Kong Brennan RN) 0845 (Given - Provider: Mathew Stringer RN) sodium chloride 0.9 % flush 5 mL 5 mL, Intravenous, 2 TIMES DAILY, First dose on Fri11/18/17 at 2315, Until Discontinued, Routine 231 (Not Given - Provider: Zeinab Ferris RN - Reason: Contraindicated) 0900 (Given - Provider: Mathew Stringer RN)1016 (OCT Hold - Provider: Admin Adt - Reason: Transfer to a Procedural area)1254 ([facility] Unhold - Provider: Admin Adt)2100 (Not [...] Procedural area)1254 (OCT Unhold - Provider: Admin Adt)2013 (Given - [...] - Reason: Transfer to a Procedural area)1254 ([facility] Unhold - Provider: Admin Adt) fentaNYL 50 [...] for discomfort with PIV insertion, Routine 1016 ([facility] Hold - Provider: Admin Adt - Reason: Transfer to a Procedural area)1254 ([facility] Unhold - Provider: Admin Adt) lidocaine (XYLOCAINE) 10 mg/mL (1 %) injection 3 mg 3 mg (0.3 mL), Subcutaneous, ONCE PRN, 1 dose, Starting on Fri11/18/17 at 2257, Until Nilda 11/20/17 at 1304, for discomfort with PIV insertion, Routine 1016 ([facility] Hold - Provider: Admin Adt - Reason: Transfer to a Procedural area)1254 ([facility] Unhold - Provider: Admin Adt) lidocaine [...] Luz Zuniga, MANAN)09 (Given - Provider: Beronica Bloom, MANAN) nitroGLYcerin (NITROSTAT) SL tablet 0.4 mg 0.4 [...] last 24 to 72 hours., Routine 1016 ([facility] Hold - Provider: Admin Adt - Reason: Transfer to a Procedural area)1254 ([facility] Unhold - Provider: Admin Adt) nitroGLYcerin [...] provided on this medication record., Routine 1016 ([facility] Hold - Provider: Admin Adt - Reason: Transfer to a Procedural area)1254 ([facility] Unhold - Provider: Admin Adt) sodium chloride 0.9 % flush 5-20 mL 5-20 mL, Intravenous, EVERY 1 MIN PRN, Starting on Fri11/18/17 at 2257, Until Nilda 11/20/17 at 1304, flush, Flush pertains to all indwelling lines. Flush per protocol found in the job aid using the link provided on this medication record., Routine 1016 ([facility] Hold - Provider: Admin Adt - Reason: Transfer to a Procedural area)1254 ([facility] Unhold - Provider: Admin Adt) sodium [...] UA) documented in this encounter Care Teams Injection Mold Technician Relationship Specialty Start Date End Date Karo Otero MD [address] [place] [address] PCP - General Family Medicine 02/11/17 03/19/23 documented as of this encounter
--- OUTSIDE RECORDS SUMMARY | 2024-06-30 12:30 | XMS_ITS | Encounter Summary ---
[place] [address] Care Team Providers Care Manager Presentation Name Role Phone Karo Otero MD Primary Care Provider [phone] Reason for Visit * Reason Comments Skin Check Encounter Details Date Type Department Care Team (Late st Contact Info) Description 02/11/2017 8:30 AM EDT Office Visit Dermatology at [place] [address] [place] [address] Mathew Fernando MD [address] [facility] [place] [address] History of basal cell carcinoma; AK (actinic keratosis) Social History Tobacco Use Types Packs/Day Years Used Date Smoking Tobacco: Former Sex and Gender Information Value Date Recorded Sex Assigned at Not on file Gender Identity Not on file Sexual Orientation Not on file documented as of this encounter Progress Notes * Mathew Fernadno MD - 02/11/2017 8:30 AM EDT PROBLEM: Skin checkup. Tra, jacques Hood as he goes by, is a 76-year-old gentleman who is originally from [place], [place] and his is from [place], [place]. They lived in [place] for a number of years, but now have moved back up to [place] and reside in [place]. He states that while living in [place] he was seen on a q.[address] 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 This was called in to his [facility] in [place], [place]. b. Recommend I see him again [...] PM EST Office Visit Cardiology at [address] [phone] Joel Link MD [facility] [place] [address] 01/18/2025 10:15 AM EDT Office Visit Dermatology at [address] [phone] Mathew Fernando MD [address] [place] [address], [place] [address] documented as of this encounter Visit Diagnoses Diagnosis History of basal cell carcinoma Personal history of other malignant neoplasm of skin AK (actinic keratosis) Actinic keratosis documented in this encounter Care Teams Manager Presentation Relationship Specialty Start Date End Date Karo Otero MD [address] [place] [address] PCP - General Family Medicine 02/11/17 03/19/23 documented as of this encounter
--- OUTSIDE RECORDS SUMMARY | 2024-06-30 12:30 | XMS_ITS | Encounter Summary ---
Author Organization [facility] Address [address] [place] [address] Care Team Providers Care Inspector And Clipper Name Role Phone Blanco Myles MD Primary Care Provider [phone] Reason for Visit * Reason Comments Eye Problem Encounter Details Date Type Department Care Team (Late st Contact Info) Description 04/07/2023 13:45 EDT Office Visit [facility] Ophthalmology - [address] [phone] Anjum Guillory MD [address] [place] [address], [address] [place] [address] Social History Tobacco Use Types [...] in this encounter Progress Notes * Anjum Guillory MD - 04/07/2023 1345 EDT Chief Complaint Patient presents with ??? [...] None Left PERRL 3 Round None Visual Olvia (Counting fingers) Right Left Full Full Extraocular [...] while he is personally performing the service. Ivette Mcmullen, ROBBIN (Scribe) documented in this encounter Plan of Treatment Upcoming Encounters Date Type Department Care Team (Late st Contact Info) Description 07/02/2024 13:30 EST Office Visit [facility] - [facility] [address], [place] [phone] Anjum Miranda MD [address] [facility], [address] [place] [address] documented as of this encounter Procedures Procedure Name Priority Date/Time Associated Diagnosis Comments OCT, RETINA - OU - BOTH EYES Routine 04/07/2023 15:01 EDT Choroidal neovascular membrane of left eye documented in this encounter Results * OCT, RETINA - OU - BOTH EYES (04/07/2023 15:01 EDT) Narrative [facility] - 04/07/2023 17:00 EDT Table formatting from the original result was not included. OCT REPORT Indications: ??Choroidal neovascular membrane left Findings: Right Eye Left Eye Normal PED, SRF and high reflective subretinal substance Original test to be found in patients shadow chart us Anjum Guillory MD OPHTH TOMOGRAPHY Final Result [facility] documented in this encounter Visit [...] Periphery Retina attached Retina attached Care Teams Inspector And Clipper Relationship Specialty Start Date End Date Blanco Myles MD [address] [facility] [address] [place] [id number] PCP - General Emergency Medicine 04/07/23 documented as of this encounter
--- OUTSIDE RECORDS SUMMARY | 2024-06-30 12:30 | XMS_ITS | Encounter Summary ---
Author Organization [facility] Address [address] [place] [address] Care Team Providers Care Continuous Improvement Facilitator Name Role Phone Joo Otero MD Primary Care Provider [phone] Blanco Myles MD Primary Care Provider [phone] Encounter Details Date Type Department Care Team (Late st Contact Info) Description 02/04/2022 Lab Requisition [facility] Pathology & Laboratory Medicine - [facility] [address] [place] [address] Ventura Stuart MD [address] [place] [phone] Encounter for other general examination Social [...] Info) Description 07/02/2024 13:30 EST Office Visit [facility] Ophthalmology - [address] [id number] Anjum Miranda MD 111 [facility], [address] [place] [address] documented as of this encounter [...] explore management options, if applicable. 02/07/2022 10:39 [facility] Final Diagnosis A. GALLBLADDER, CHOLECYSTECTOMY: - Severe acute erosive focally gangrenous cholecystitis. 02/07/2022 10:39 [facility] Attestation There was significant resident/fellow involvement in the diagnostic evaluation of this case. By the signature below, the attending physician certifies that they have personally conducted a gross and/or microscopic examination of the described specimens and rendered or confirmed the above diagnosis. 02/07/2022 10:39 [facility] at 1039 Clinical History Cholecystitis 02/07/2022 10:39 [facility] Gross Description A. Received [...] inked blue. No choleliths identified grossly. Two accounts payable representative sections and the en face cystic duct margin are submitted in A1. JOO LI DO 02/05/2022 13:55 02/07/2022 10:39 [facility] Resident/[place] w: Joo Li DO 02/07/2022 10:39 T [facility] Performing Lab [facility] 02/07/2022 10:39 T [facility] Scanned Images 02/07/2022 10:39 [facility] Tissue ENTIRE GALLBLADDER / Unknown 02/02/2022 13:15 EDT 02/04/2022 17:18 EDT us Ventura Stuart MD PATHOLOGY ORDERABLES F inal Result [facility] [address] [place] [address] documented in this encounter Visit Diagnoses Diagnosis Encounter for other general examination documented in this encounter Care Teams Continuous Improvement Facilitator Relationship Specialty Start Date End Date Joo Otero MD [address] [place] [address] PCP - General 01/07/18 04/06/23 Blanco Myles MD [address] [facility] [address] [place] [address] PCP - General Emergency Medicine 04/07/23 documented as of this encounter
--- OUTSIDE RECORDS SUMMARY | 2024-06-30 12:30 | XMS_ITS | Encounter Summary ---
Author Organization [facility] Address [address] [place] [address] Care Team Providers Care Soda Flaker Name Role Phone Karo Otero MD Primary Care Provider [phone] Blanco Myles MD Primary Care Provider [phone] Encounter Details Date Type Department Care Team (Late st Contact Info) Description 09/21/[address] [facility] Pathology & Laboratory Medicine - [address] [address] Outr Resulting Lab, Provider Social History Tobacco [...] Info) Description 07/02/2024 13:30 EST Office Visit [facility] - [address] [id number] Anjum Miranda MD [address] [place] [address], [address] [place] [phone] documented as of this encounter Procedures Procedure Name Priority Date/Time Associated Diagnosis Comments PSA TOTAL, DIAGNOSTIC Routine 09/21/2020 8:00 EST documented in this encounter Results * PSA TOTAL, DIAGNOSTIC (09/21/2020 8:00 EST) PSA 0.4 0.0 - 6.5 ng/mL 09/21/2020 22:22 EST [facility] Blood VENOUS BLOOD / Unknown 09/21/2020 8:00 EST 09/21/2020 20:24 EST Narrative [facility] - 09/21/2020 22:22 EST NOTE: Serum PSA concentration should not be interpreted as absolute evidence for the presence or absence of malignant disease. Assayed on Siemens ADVIA Centaur XPT using chemiluminescent technology.??Values obtained by using different assay methods cannot be used interchangeably. us Provider Outr Resulting Lab CHEMISTRY & BLOOD GA S ORDERABLES Final Result [facility] [address] [place] [address] documented in this encounter Visit Diagnoses Not on filedocumented in this encounter Care Teams Soda Flaker Relationship Specialty Start Date End Date Karo Otero MD [address] [place] [address] PCP - General 01/07/18 04/06/23 Blanco Myles MD 26 [facility] [address] [place] [address] PCP - General Emergency Medicine 04/07/23 documented as of this encounter
--- OUTSIDE RECORDS SUMMARY | 2024-06-30 12:30 | XMS_ITS | Encounter Summary ---
[place] [address] Care Team Providers Care Upper Cutter Out Name Role Phone Karo Otero MD Primary Care Provider [phone] Reason for Visit * Reason Comments Follow-up Encounter Details Date Type Department Care Team (Late st Contact Info) Description 03/06/2017 2:45 PM EDT Office Visit Dermatology at [address] [place] [address] Mathew Fernando MD [address] [facility] [place] [address] History of SCC (squamous cell carcinoma) of [...] 6 months to see me again. Cc: Karo Otero MD documented in this encounter Plan of Treatment Upcoming Encounters Date Type Department Care Team (Late st Contact Info) Description 10/07/2024 3:00 PM EST Office Visit Cardiology at [address] [address] Joel Link MD [facility] [place] [address] 01/18/2025 10:15 AM EDT Office Visit Dermatology at [address] [address] Mathew Fernando MD [address] [place] [address], [place] [address] documented as of this encounter Visit Diagnoses Diagnosis History of SCC (squamous cell carcinoma) of skin Personal history of other malignant neoplasm of skin documented in this encounter Care Teams Upper Cutter Out Relationship Specialty Start Date End Date Karo Otero MD [address] [place] [address] PCP - General Family Medicine 02/11/17 03/19/23 documented as of this encounter
--- OUTSIDE RECORDS SUMMARY | 2024-06-30 12:30 | XMS_ITS | Encounter Summary ---
Author Organization [facility] [place] [address] Care Team Providers Care Sort Operations Supervisor Name Role Phone Karo Otero MD Primary Care Provider [phone] Encounter Details Date Type Department Care Team (Late st Contact Info) Description 02/11/2017 Refill Dermatology at [address] [address] Shana Lowe, MARIA ELENA Social [...] PM EST Office Visit Cardiology at [address] [address] Joel Link MD [facility] [place] [address] 01/18/2025 10:15 AM EDT Office Visit Dermatology at [address] [address] Mathew Fernando MD [address] [place] [address] [place] [address] documented as of this encounter Visit Diagnoses Not on filedocumented in this encounter Care Teams Sort Operations Supervisor Relationship Specialty Start Date End Date Karo Otero MD [address] [place] [address] PCP - General Family Medicine 02/11/17 03/19/23 documented as of this encounter
--- OUTSIDE RECORDS SUMMARY | 2024-06-30 12:30 | XMS_ITS | Encounter Summary ---
Author Organization [facility] Address [address] [place] [address] Care Team Providers Care Drywall Finishing Foreman Name Role Phone Blanco Myles MD Primary Care Provider [phone] Reason for Visit * Reason Comments Eye Problem Wet AMD left eye. S/ p Avastin #2 left eye 05/06/2023. Pt reports VA has improved since last visit. No new F/F, no eye pain.Takes Areds 2 BID Encounter Details Date Type Department Care Team (Late st Contact Info) Description 06/10/2023 13:00 EDT Office Visit [facility] Ophthalmology - [address] [address] Anjum Miranda MD 111 [facility], [address] [place] [address] Social History Tobacco Use Types [...] bevacizumab Route: intravitreal, Site: Left Eye [facility]: [address]-29, Lot: [id number], Expiration date: 06/15/2023 Post-op Post injection exam found visual acuity of at least counting fingers. The patient tolerated the procedure well. There were no complications. Post injection medications were not given. DIAGNOSES: 1. Exudative age-related macular degeneration of left eye with active choroidal neovascularization ([facility]) OCT, RETINA - OU - [...] Info) Description 07/02/2024 13:30 EST Office Visit [facility] Ophthalmology - Main [place] [address] [place], [place] [address] Anjum Miranda MD 111 [facility], [address] [place] [address] documented as of this encounter [...] - LEFT EYE (06/10/2023 14:03 EDT) Narrative [facility] POINT [facility] CARE - 06/10/2023 14:35 EDT Time Out 06/10/2023. 13:54. Confirmed correct patient, procedure, site, and patient consented. Anesthesia Topical anesthesia was used. Anesthetic medications included Proparacaine 0.5%, Tetracaine 0.5%. Procedure Preparation included 5% betadine to ocular surface, eyelid speculum. A 30 gauge needle was used. Injection: 1.25 mg bevacizumab ??Route: intravitreal, Site: Left Eye ??[facility]: [address]-93, Lot: [id number], Expiration date: 06/15/2023 Post-op Post injection exam found visual acuity of at least counting fingers. The patient tolerated the procedure well. There were no complications. Post injection medications were not given. Anjum Miranda MD OPHTH CLINIC PROCEDURES Final Re sult [facility]INT [facility] * OCT, RETINA - OU - BOTH EYES (06/10/2023 13:49 EDT) Narrative [facility] OPHTHALMOLOG[facility] - 06/10/2023 14:35 EDT Right Eye Progression has been stable. Left Eye Quality was good. Progression has improved. Findings include pigment epithelial detachment, subretinal fluid. Notes Drusen, no fluid right eye Decrease in SRHRM as well left eye Anjum Miranda MD OPHTH TOMOGRAPHY Final Result Performing Organization Address City/[facility]/ZIP Co de Phone Number [facility] OPHTHALMOLOGY documented in this encounter Visit [...] Fri06/10/23 at 1435, Until Fri06/10/23 at 1435, RoutineIndications:Exudative age-related macular degeneration of 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) Given 06/10/2023 14:35 EDT 1.25 mg Left Ey e [...] by SRH Vessels Normal Normal Care Teams Drywall Finishing Foreman Relationship Specialty Start Date End Date Blanco Myles MD 26 [facility] [address] [place] [address] PCP - General Emergency Medicine 04/07/23 documented as of this encounter
--- OUTSIDE RECORDS SUMMARY | 2024-06-30 12:30 | XMS_ITS | Encounter Summary ---
[place] [address] Care Team Providers Care Special Forces Communications Sergeant Name Role Phone Karo Otero MD Primary Care Provider [phone] Reason for Visit * Reason Comments Follow-up Encounter Details Date Type Department Care Team (Late st Contact Info) Description 08/14/2017 8:45 AM EST Office Visit Dermatology at [place] [address] [facility] [place] [address] Mathew Fernando MD 580 [facility] [place] [address] History of SCC (squamous cell carcinoma) of [...] of right upper back treated by a [place] craft worker about 2006. Erwin follows up after 2 [...] PM EST Office Visit Cardiology at [address] [address] Joel Link MD [facility] [place] [address] 01/18/2025 10:15 AM EDT Office Visit Dermatology at [address] [address] Mathew Fernando MD [address] [place] [address], [facility] [place] [address] documented as of this encounter Visit Diagnoses Diagnosis History of SCC (squamous cell carcinoma) of skin Personal history of other malignant neoplasm of skin History of basal cell carcinoma Personal history of other malignant neoplasm of skin documented in this encounter Care Teams [employer] Communications Sergeant Relationship Specialty Start Date End Date Karo Otero MD [address] [place] [address] PCP - General Family Medicine 02/11/17 03/19/23 documented as of this encounter
--- OUTSIDE RECORDS SUMMARY | 2024-06-30 12:30 | XMS_ITS | Encounter Summary ---
Author Organization [facility] Address [facility] [place] [address] Care Team Providers Care Pacu Rn Name Role Phone Karo Otero MD Primary Care Provider [phone] Encounter Details Date Type Department Care Team (Late st Contact Info) Description 11/18/2017 External [place] [address] Social History Tobacco Use Types Packs/Day Years [...] PM EST Office Visit Cardiology at [address] [phone] Joel Link MD [facility] [place] [place] [address] 01/18/2025 10:15 AM EDT Office Visit Dermatology at [address] [phone] Mathew Fernando MD [address] [place] [address], [facility] [address] documented as of this encounter Procedures Procedure [...] on filedocumented in this encounter Care Teams Pacu Rn Relationship Specialty Start Date End Date Karo Otero MD [address] [place] [address] PCP - General Family Medicine 02/11/17 03/19/23 documented as of this encounter
--- OUTSIDE RECORDS SUMMARY | 2024-06-30 12:30 | XMS_ITS | Clinical Summary ---
Author Organization [facility] Address [address] [place] [address] Care Team Providers Care Boot Repairer Name Role Phone Blanco yMles MD Primary Care Provider [phone] Allergies Active Allergy Reactions Criticality Noted Date Comments Oxycodone-Acetaminophen Nausea And Vomiting 12/2019 Medications acetaminophen (TYLENOL) 500 mg tablet Take 2 [...] Capsule by mouth 2 times daily. Active IRBESARTAN-HYDR OCHLOROTHIAZIDE ORAL Take by mouth. Active vit C/E/Zn/coppr/otilia tein/zeaxan (PRESERVISION AREDS-2 ORAL) Take by mouth. 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..] med CAD (coronary artery disease) Post PTCA 2 stents 2018 Hyperlipidemia 09/22/19 - control led with med 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 Anemia s/p 2019 femur f x repair - 2units PRB Depression controlled with med Cancer ([facility]) skin cancer Other states following surge ry of eye and adnexa Stroke ([facility]) Family History Medical History Relation Comments Throat [...] Info) Description 07/02/2024 13:30 EST Office Visit [facility] Ophthalmology - Main [address] [address] Anjum Miranda MD [address] [place] [address], [address] [place] [address] Health Maintenance Due Date Last Done Comments Fall Risk Screening 12/06/2004 RSV Immunization ( o r 60+ Years) (1 - 1-dose 75+ series) 12/06/2014 COVID-19 Vaccine (2023- season) 2024 Medical Devices Implanted Type Area Law Clerk Device Identifier Shelf Expiration Date Model / Serial / Lot Lens Intraocular Monfocl Ant Bicnvx Opt Foldable +21.0d [employer]front [id number] - [id number] - [id number] Implanted:Qty: 1 on 09/29/2019 by Mu Acosta MD at [facility] Lens Left: Eye [employer] [id number] 04/17/2024 [id number] .0 / [id number] / Lens Intraocular Monfocl Ant Bicnvx Opt Foldable +20.5d [employer]front [id number] - [id number] - [id number] Implanted:Qty: 1 on 10/14/2019 by Mu Acosta MD at [facility] Lens Right: Eye [employer] [id number] 03/17/2024 [id number] .[id number] / [id number] / Procedures Procedure Name Priority Date/Time Associated Diagnosis Comments OCT, RETINA - OU - BOTH EYES Routine 04/30/2024 14:44 EDT Exudative age-related macular degeneration of 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) Intermediate stage nonexudative age-related macular degeneration of right eye INTRAVITREAL INJECTION, PHARMACOLOGIC AGENT - OS - LEFT EYE Routine 04/30/2024 14:43 EDT Exudative age-related macular degeneration of 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) from Last 3 Months Results * OCT, RETINA - OU - BOTH EYES (04/30/2024 14:44 EDT) Narrative [facility] OPHTHALMOLOG[facility] - 05/03/2024 11:16 EDT Right Eye Progression has been stable. Findings include normal foveal contour. Left Eye Quality was good. Progression has been stable. Findings include intraretinal fluid, pigment epithelial detachment. Notes Drusen, no fluid right eye intraretinal fluid over SRfibrosis left eye Anjum Miranda MD OPHTH TOMOGRAPHY Final Result Performing Organization Address [facility] de Phone Number [facility] * INTRAVITREAL INJECTION, PHARMACOLOGIC AGENT - OS - LEFT EYE (04/30/2024 14:43 EDT) Narrative [facility] POINT OF CARE - 05/03/2024 11:16 EDT Time Out 04/30/2024. 14:43. Confirmed correct patient, procedure, site, and patient consented. Anesthesia Topical anesthesia was used. Anesthetic medications included Proparacaine 0.5%, Tetracaine 0.5%. Procedure Preparation included 5% betadine to ocular surface, eyelid speculum. A 30 gauge needle was used. Injection: 8 mg aflibercept 8 mg/0.07 mL ??Route: intravitreal, Site: Left Eye ??[facility]: 85089-106-02, Lot: [id number], Expiration date: 07/17/2025 Post-op Post injection exam found visual acuity of at least counting fingers. The patient tolerated the procedure well. There were no complications. The patient received written and verbal post procedure care education. Post injection medications were not given. Result [facility] Anjum Miranda MD OPH CLINIC PROCEDURES Final Re sult Performing Organization Address [facility] Co de Phone Number [facility] POINT OF CARE from Last 3 Months Insurance [facility] [place]IC[place] [address] [place] [address] [place] [address] [place] [address] Advance Directives For more information, please contact: [phone] * Full Code (Latest Code Status on [...] participated in the discussion? Patient Care Teams Boot Repairer Relationship Specialty Start Date End Date Blanco Myles MD [address] [address] PCP - General Emergency Medicine 04/07/23
--- OUTSIDE RECORDS SUMMARY | 2024-06-30 12:30 | XMS_ITS | Encounter Summary ---
Author Organization [facility] Address [address] [place] [address] Care Team Providers Care Licensed Plumber Name Role Phone Blanco Myles MD Primary Care Provider [phone] Reason for Visit * Reason Comments Follow-up * Prior Authorization (Routine) - Authorized Specialty Diagnoses / Procedures [facility]erred To Contact Diagnoses Exudative age-related macular degeneration of left eye with active choroidal neovascularization ([facility]) Intermediate stage nonexudative age-related macular degeneration of right eye Procedures AR INTRAVITREAL NJX PHARMACOLOGIC AGT SPX AR INJECTION, AFLIBERCEPT HD, [address] [address] Phone: tel: fax: [address] [address] Phone: tel: fax: Referral ID Status Reason Start Date Expiration Date V isits Requested Visits Authorized [id number] Authorized 02/27/2024 02/26/2025 2 7 Encounter Details Date Type Department Care Team (Late st Contact Info) Description 02/27/2024 13:45 EDT Office Visit [address] [id number] Anjum Miranda MD 111 [facility], [facility] [address] [place] [address] Social History Tobacco Use Types [...] Notes * Anjum Miranda MD - 02/27/2024 0384 EDT Chief Complaint Patient presents with Follow-up HPI Pt here for 9 week f/u for Wet AMD left eye S/P Eylea#1 left eye (524) [place] stable. No floaters or flashes, No [...] mg/0.07 mL Route: intravitreal, Site: Left Eye [facility]: 80761-950-60, Lot: [id number], Expiration date: 12/15/2024 Post-op Post injection exam found visual acuity of at least counting fingers. The patient tolerated the procedure well. There were no complications. The patient received written and verbal post procedure care education. Post injection medications were not given. DIAGNOSES: 1. Exudative age-related macular degeneration of left eye with active choroidal neovascularization ([facility]) OCT, RETINA - OU - BOTH [...] Info) Description 07/02/2024 13:30 EST Office Visit [facility] Ophthalmology - [address] [phone] Anjum Miranda MD 111 [facility], [address] [place] [address] documented as of this encounter [...] - LEFT EYE (02/27/2024 14:57 EDT) Narrative [facility] POINT OF CARE - 02/27/2024 15:03 EDT Time Out 02/27/2024. 14:57. Confirmed correct patient, procedure, site, and patient consented. Anesthesia Topical anesthesia was used. Anesthetic medications included Proparacaine 0.5%, Tetracaine 0.5%. Procedure Preparation included 5% betadine to ocular surface, eyelid speculum. A 30 gauge needle was used. Injection: 8 mg aflibercept 8 mg/0.07 mL ??Route: intravitreal, Site: Left Eye ??[facility]: 19306-214-23, Lot: [id number], Expiration date: 12/15/2024 Post-op Post injection exam found visual acuity of at least counting fingers. The patient tolerated the procedure well. There were no complications. The patient received written and verbal post procedure care education. Post injection medications were not given. Anjum Miranda MD OPHTH CLINIC PROCEDURES Final Re sult Performing Organization Address [facility] de Phone Number [facility] POINT OF CARE * OCT, RETINA - OU - BOTH EYES (02/27/2024 14:44 EDT) Narrative [facility] OPHTHALMOLOGY - 02/27/2024 15:03 EDT Right Eye Progression has been stable. Findings include normal foveal contour. Left Eye Quality was good. Progression has been stable. Findings include intraretinal fluid, pigment epithelial detachment. Notes Drusen, no fluid right eye intraretinal fluid over SRfibrosis left eye Anjum Miranda MD OPHTH TOMOGRAPHY Final Result Performing Organization Address [facility] de Phone Number [facility] OPHTHALMOLOGY documented in this [...] Fri02/27/24 at 1503, Until Fri02/27/24 at 1503, RoutineIndications:Exudative age-related macular degeneration of 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) Given 02/27/2024 15:03 EDT 8 mg Left Eye documented in this encounter Orders Medications Ordered That Lbayne ht Not Have Been Administered Count Last [...] Normal Normal Periphery Attached Attached Care Teams Licensed Plumber Relationship Specialty Start Date End Date Blanco Myles MD [address] [facility] [address] [place] [address] PCP - General Emergency Medicine 04/07/23 documented as of this encounter
--- OUTSIDE RECORDS SUMMARY | 2024-06-30 12:30 | XMS_ITS | Encounter Summary ---
[place] [address] Care Team Providers Care Senior Geotechnical Engineer Name Role Phone Karo Otero MD Primary Care Provider [phone] Encounter Details Date Type Department Care Team (Late st Contact Info) Description 11/18/2017 [place] [phone] Phan Ken MD [facility] [address] Social History Tobacco Use Types Packs/Day Years [...] PM Referring Provider: Dr. Nieves Patient Location: [facility] Presenting Symptoms per OSH: 76 yo [...] examine the patient myself. Phan Ken MD Test Automation Architect Pager [phone] documented in this encounter Plan of Treatment Upcoming Encounters Date Type Department Care Team (Late st Contact Info) Description 10/07/2024 3:00 PM EST Office Visit Cardiology at [address] [phone] Joel Link MD [facility] [place] [address] 01/18/2025 10:15 AM EDT Office Visit Dermatology at [address] [phone] Mathew Fernando MD [address] [place] [address], [facility] [place] [address] documented as of this encounter Visit Diagnoses Not on filedocumented in this encounter Care Teams Senior Geotechnical Engineer Relationship Specialty Start Date End Date Karo Otero MD [address] [place] [address] PCP - General Family Medicine 02/11/17 03/19/23 documented as of this encounter
--- OUTSIDE RECORDS SUMMARY | 2024-06-30 12:30 | XMS_ITS | Encounter Summary ---
Author Organization [facility] Address [address] [place] [address] Care Team Providers Care Teacher Preschool Name Role Phone Blanco Myles MD Primary Care Provider [phone] Reason for Visit * Reason Comments Follow-up Encounter Details Date Type Department Care Team (Late st Contact Info) Description 12/26/2023 13:45 EDT Office Visit [facility] Ophthalmology - [address] [phone] Anjum Miranda MD 111 [facility], Level [address] [place] [address] Social History Tobacco Use Types [...] mg/0.05 mL Route: intravitreal, Site: Left Eye [facility]: 36381-414-75, Lot: [id number], Expiration date: 10/16/2024 Post-op Post injection exam found visual acuity of at least counting fingers. The patient tolerated the procedure well. There were no complications. The patient received written and verbal post procedure care education. Post injection medications were not given. DIAGNOSES: 1. Exudative age-related macular degeneration of left eye with active choroidal neovascularization ([facility]) OCT, RETINA - OU - BOTH [...] Info) Description 07/02/2024 13:30 EST Office Visit [facility] Ophthalmology - [facility] [address] [place] [address] Anjum Miranda MD 111 [facility], [address] [place] [address] documented as of this encounter Procedures Procedure Name Priority Date/Time Associated Diagnosis Comments INTRAVITREAL INJECTION, PHARMACOLOGIC AGENT - OS - LEFT EYE Routine 12/26/2023 14:53 EDT Exudative age-related macular degeneration of left eye with active choroidal neovascularization ([facility]) OCT, RETINA - OU - BOTH EYES Routine 12/26/2023 14:47 EDT Exudative age-related macular degeneration of left eye with active choroidal neovascularization ([facility]) Intermediate stage nonexudative age-related macular degeneration of right eye documented in this encounter Results * INTRAVITREAL INJECTION, PHARMACOLOGIC AGENT - OS - LEFT EYE (12/26/2023 14:53 EDT) Narrative [facility] POINT OF CARE - 12/26/2023 15:22 EDT Time Out 12/26/2023. 14:36. Confirmed correct patient, procedure, site, and patient consented. Anesthesia Topical anesthesia was used. Anesthetic medications included Proparacaine 0.5%, Tetracaine 0.5%. Procedure Preparation included 5% betadine to ocular surface, eyelid speculum. A 30 gauge needle was used. Injection: 2 mg aflibercept 2 mg/0.05 mL ??Route: intravitreal, Site: Left Eye ??[facility]: 02272-527-47, Lot: [id number], Expiration date: 10/16/2024 Post-op Post injection exam found visual acuity of at least counting fingers. The patient tolerated the procedure well. There were no complications. The patient received written and verbal post procedure care education. Post injection medications were not given. Anjum Miranda MD OPHTH CLINIC PROCEDURES Final Re sult [facility] POINT OF CARE * OCT, RETINA - OU - BOTH EYES (12/26/2023 14:47 EDT) Narrative [facility] OPHTHALMOLOGY - 12/26/2023 15:23 EDT Right Eye Progression has been stable. Left Eye Quality was good. Progression has worsened. Findings include intraretinal fluid, pigment epithelial detachment, subretinal fluid. Notes Drusen, no fluid right eye Resolution of subretinal fluid, increase in intraretinal fluid over SRfibrosis left eye Anjum Miranda MD OPHTH TOMOGRAPHY Final Result Performing Organization Address [facility] Co de Phone Number [facility] OPHTHALMOLOGY documented in this encounter Visit [...] Fri12/26/23 at 1522, Until Fri12/26/23 at 1522, RoutineIndications:Exudative age-related macular degeneration of 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) Given 12/26/2023 15:22 EDT 2 mg Left [...] Normal Normal Periphery Attached Attached Care Teams Teacher Preschool Relationship Specialty Start Date End Date Blanco Myles MD 26 [facility] [address] [place] [address] PCP - General Emergency Medicine 04/07/23 documented as of this encounter
--- OUTSIDE RECORDS SUMMARY | 2024-06-30 12:30 | XMS_ITS | Encounter Summary ---
Author Organization [facility] Address [address] [place] [address] Care Team Providers Care Head Field Hockey Coach Name Role Phone Blanco Myles MD Primary Care Provider [phone] Reason for Visit * Reason Comments Eye Problem Encounter Details Date Type Department Care Team (Late st Contact Info) Description 04/07/2023 14:00 EDT Office Visit [facility] Ophthalmology - [address] [phone] Anjum Miranda MD 111 [facility], Level [address] [place] [address] Social History Tobacco Use Types [...] of Assessment Author Yes 01/07/2018 21:35 EDT Kita Rebollar RN * Do you have serious difficulty walking or climbing stairs? (5 years old or older) Answer Date of Assessment Author No 01/07/2018 21:35 EDT Kita Rebollar RN * Do you have difficulty dressing or bathing? (5 years old or older) Answer Date of Assessment Author No 01/07/2018 21:35 EDT Kita Rebollar RN * Because of a physical, mental, [...] Kita Segovia RN documented in this encounter Patient Instructions * [...] major study sponsored by the [place] (NEI), one of the Federal Government's National Institutes of Health, and conducted at [facility] research facilities around the country. In the [...] AREDS is available from the [place] of the National Institutes of Health, www.nei.nih.gov/amd. Your Eye M.D. is your best source of information about eye care. You can also get trustworthy information from the [place] [employer]'s partner Web site, Medem www.[employer].Multispan/MedLB/bufferpage aao.cfm. -What Should You Buy? To try [...] mg bevacizumab Route: intravitreal, Site: Left Eye [facility]: [address]-01, Lot: [id number], Expiration date: 04/13/2023 Post-op Post injection exam [...] Info) Description 07/02/2024 13:30 EST Office Visit [facility] Ophthalmology - [address] [phone] Anjum Miranda MD 111 [facility], Level [address] [place] [address] documented as of this encounter Procedures Procedure Name Priority Date/Time Associated Diagnosis Comments INTRAVITREAL INJECTION, PHARMACOLOGIC AGENT - OS - LEFT EYE Routine 04/07/2023 16:04 EDT Exudative age-related macular degeneration of left eye with active choroidal neovascularization ([facility]) documented in this encounter Results * INTRAVITREAL INJECTION, PHARMACOLOGIC AGENT - OS - LEFT EYE (04/07/2023 16:04 EDT) Narrative [facility] POINT OF CARE - 04/07/2023 16:37 EDT Time Out 04/07/2023. 15:47. Confirmed correct patient, procedure, site, and patient consented. Anesthesia Topical anesthesia was used. Anesthetic medications included Proparacaine 0.5%, Tetracaine 0.5%. Procedure Preparation included 5% betadine to ocular surface, eyelid speculum. A 30 gauge needle was used. Injection: 1.25 mg bevacizumab ??Route: intravitreal, Site: Left Eye ??[facility]: [address]-13, Lot: [id number], Expiration date: 04/13/2023 Post-op Post injection exam found visual acuity of at least counting fingers. The patient tolerated the procedure well. There were no complications. Post injection medications were not given. Anjum Miranda MD OPHTH CLINIC PROCEDURES Final Re sult [facility] POINT OF CARE documented in this encounter [...] Fri04/07/23 at 1637, Until Fri04/07/23 at 1637, RoutineIndications:Exudative age-related macular degeneration of 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) Given 04/07/2023 16:37 EDT 1.25 mg Left Ey e documented [...] by [facility] Vessels Normal Normal Care Teams Head Field Hockey Coach Relationship Specialty Start Date End Date Blanco Myles MD [facility] [address] [place] [address] PCP - General Emergency Medicine 04/07/23 documented as of this encounter
--- OUTSIDE RECORDS SUMMARY | 2024-06-30 12:30 | XMS_ITS | Encounter Summary ---
Author Organization [facility] Address [address] [place] [address] Care Team Providers Care Fast Food Worker Name Role Phone Karo Otero MD Primary Care Provider Reason for Visit * Reason Comments Eye Exam Follow-up Encounter Details Date Type Department Care Team (Late st Contact Info) Description 11/16/2021 10:00 EDT Office Visit [facility] Ophthalmology - [address] [phone] Mu Acosta MD 111 [facility], [address] [place] [address] Social History Tobacco Use Types [...] (asa 81 mg daily) Immunologic: Drug Allergy Bottom Turning Lathe Tender: Exposures: None Other: Attestation: Allergies include: Percocet [...] Normal Normal Refraction Wearing Rx Sphere Cylinder [place] Add Right -0.50 +0.50 155 150/3.00 Left Lynch +0.50 018 150/300 DIAGNOSTIC TESTS: IMPRESSION & [...] Info) Description 07/02/2024 13:30 EST Office Visit [facility] Ophthalmology - [facility] [address] [place] [address] Anjum Miranda MD 111 [facility], [address] [place] [address] documented as of this encounter [...] Vessels Normal Normal Wearing Rx Sphere Cylinder [place] Add Right eye -0.50 +0.50 155 150/3.00 Left eye Lynch +0.50 018 150/300 Care Teams Fast Food Worker Relationship Specialty Start Date End Date Karo Otero MD [address] [place] [address] PCP - General 01/07/18 04/06/23 documented as of this encounter
--- OUTSIDE RECORDS SUMMARY | 2024-06-30 12:30 | XMS_ITS | Encounter Summary ---
Author Organization [facility] Address [address] [place] [address] Care Team Providers Care Fruit Inspector Name Role Phone Blanco Myles MD Primary Care Provider [phone] Reason for Visit * Reason Comments Follow-up Encounter Details Date Type Department Care Team (Late st Contact Info) Description 09/05/2023 13:00 EST Office Visit [facility] Ophthalmology - [address] [phone] Anjum Miranda MD 111 [facility], [address] [place] [address] Social History Tobacco Use Types [...] mg bevacizumab Route: intravitreal, Site: Left Eye [facility]NOTE 2]: [address]-34, Lot: [id number], Expiration date: 09/05/2023 Post-op Post injection exam found visual acuity of at least counting fingers. The patient tolerated the procedure well. There were no complications. The patient received written and verbal post procedure care education. Post injection medications were not given. DIAGNOSES: 1. Exudative age-related macular degeneration of left eye with active choroidal neovascularization ([facility]) OCT, RETINA - OU - [...] Info) Description 07/02/2024 13:30 EST Office Visit [facility] Ophthalmology - [address] [address] Anjum Miranda MD 111 [facility], [address] [place] [phone] documented as of this encounter Procedures Procedure [...] - LEFT EYE (09/05/2023 14:09 EST) Narrative [facility] POINT OF CARE - 09/05/2023 14:11 EST Time Out 09/05/2023. 13:49. Confirmed correct patient, procedure, site, and patient consented. Anesthesia Topical anesthesia was used. Anesthetic medications included Proparacaine 0.5%, Tetracaine 0.5%. Procedure Preparation included 5% betadine to ocular surface, eyelid speculum. A 30 gauge needle was used. Injection: 1.25 mg bevacizumab ??Route: intravitreal, Site: Left Eye ??[facility][NOTE 2]: [address]-08, Lot: [id number], Expiration date: 09/05/2023 Post-op Post injection exam found visual acuity of at least counting fingers. The patient tolerated the procedure well. There were no complications. The patient received written and verbal post procedure care education. Post injection medications were not given. us Anjum Miranda MD OPHTH CLINIC PROCEDURES Final Re sult [facility] POINT OF CARE * OCT, RETINA - OU - BOTH EYES (09/05/2023 13:55 EST) Narrative [facility] OPHTHALMOLOGY - 09/05/2023 14:11 EST Right Eye Progression has been stable. Left Eye Quality was good. Progression has improved. Findings include pigment epithelial detachment, subretinal fluid. Notes Drusen, no fluid right eye Decrease in SRHRM as well left eye Anjum Miranda MD OPHTH TOMOGRAPHY Final Result [facility] OPHTHALMOLOGY documented in this encounter [...] Fri09/05/23 at 1411, Until Fri09/05/23 at 1411, RoutineIndications:Exudative age-related macular degeneration of 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) Given 09/05/2023 14:11 EST 1.25 mg Left Ey e documented [...] adjacent [facility] Vessels Normal Normal Care Teams Fruit Inspector Relationship Specialty Start Date End Date Blanco Myles MD 26 [facility] [address] [place] [address] PCP - General Emergency Medicine 04/07/23 documented as of this encounter
--- OUTSIDE RECORDS SUMMARY | 2024-06-30 12:30 | XMS_ITS | Encounter Summary ---
Author Organization [facility] Address [address] [place] [address] Care Team Providers Care Chief Controller Tower Name Role Phone Blanco Myles MD Primary Care Provider [phone] Reason for Visit * Reason Onset Date Comments Eye Problem 04/07/2023 Encounter Details Date Type Department Care Team (Late st Contact Info) Description 04/07/2023 Telephone [facility] Ophthalmology - [facility] [address] [place], [place] [phone] Mu Acosta MD 111 [facility], [address] [place] [address] Eye Problem Social History Tobacco [...] Kita Segovia RN documented in this encounter Miscellaneous Notes * Telephone Encounter - Mariluz Jonas - 04/07/2023 0957 EDT Pt scheduled today at 1:45 with M * Telephone Encounter - Felipe Ramires RN - 04/07/2023 0937 EDT Per [facility]. Schedule patient for visit with him today. [...] number for us to speak to you? [phone] (VERIFY THE PHONE NUMBERS REGARDLESS OF WHAT [...] Info) Description 07/02/2024 13:30 EST Office Visit [facility] Ophthalmology - [address] [address] Anjum Miranda MD 111 [facility], [address] [place] [address] documented as of this encounter Visit Diagnoses Not on filedocumented in this encounter Care Teams Chief Controller Tower Relationship Specialty Start Date End Date Blanco Myles MD 26 [facility] [address] [place] [address] PCP - General Emergency Medicine 04/07/23 documented as of this encounter
--- OUTSIDE RECORDS SUMMARY | 2024-06-30 12:30 | XMS_ITS | Encounter Summary ---
Author Organization [facility] Address [address] [place] [address] Care Team Providers Care Electrical Products Sales Engineer Name Role Phone Blanco Myles MD Primary Care Provider [phone] Reason for Visit * Reason Comments Eye Problem 9 week return for we t age-related macular degeneration -left eye No pain, flashes, or floaters Encounter Details Date Type Department Care Team (Late st Contact Info) Description 04/30/2024 13:00 EDT Office Visit [facility] Ophthalmology - [address] [address] Anjum Miranda MD 111 [facility], [address] 5 [place] [address] Social History Tobacco Use Types [...] Progress Notes * Anjum Miranda MD - 04/30/2024 1300 EDT Chief Complaint Patient presents with Eye Problem 9 week return for wet age-related macular degeneration -left eye No pain, flashes, or floaters HPI Eye Problem Comments: 9 week return for wet age-related macular degeneration -left eye No pain, flashes, or floaters Base Eye Exam Visual Acuity (Snellen - Linear) Right Left Dist cc 20/30 20/70 Tonometry (Applanation, 13:21) Right Left Pressure 10 12 Neuro/Psych Oriented x3: Yes Mood/Affect: Normal Dilation Both eyes: Phenylephrine 2.5%, Tropicamide 1% @ 13:21 Slit Lamp and Fundus Exam Slit Lamp Exam Right Left Conjunctiva/Sclera White and quiet White and quiet Cornea Clear Clear Anterior Chamber Deep and quiet Deep and quiet Iris Dilated Dilated Lens Posterior chamber intraocular lens Posterior chamber intraocular lens Fundus Exam Right Left Disc healthy healthy C/D Ratio 0.3 0.3 Macula rare large drusen Subretinal fibrosis Vessels Normal Normal Periphery Attached Attached OCT, Retina - OU - Both Eyes Right Eye Progression has been stable. Findings include normal foveal contour. Left Eye Quality was good. Progression has been stable. Findings include intraretinal fluid, pigment epithelial detachment. Notes Drusen, no fluid right eye intraretinal fluid over SRfibrosis left eye Intravitreal Injection, Pharmacologic Agent - OS - Left Eye Time Out 04/30/2024. 14:43. Confirmed correct patient, procedure, site, and patient consented. Anesthesia Topical anesthesia was used. Anesthetic medications included Proparacaine 0.5%, Tetracaine 0.5%. Procedure Preparation included 5% betadine to ocular surface, eyelid speculum. A 30 gauge needle was used. Injection: 8 mg aflibercept 8 mg/0.07 mL Route: intravitreal, Site: Left Eye [facility]: 97134-287-34, Lot: [id number], Expiration date: 07/17/2025 Post-op Post injection exam found visual acuity of at least counting fingers. The patient tolerated the procedure well. There were no complications. The patient received written and verbal post procedure care education. Post injection medications were not given. DIAGNOSES: 1. Exudative age-related macular degeneration of left eye with active choroidal neovascularization ([facility]) OCT, RETINA - OU - BOTH EYES INTRAVITREAL INJECTION, PHARMACOLOGIC AGENT - OS - LEFT EYE aflibercept (EYLEA HD) intravitreal solution 8 mg 2. 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 I am scribing for Dr. Anjum Miranda MD while he is personally performing the service. aG Iraheta (Scribe) documented in this encounter Plan of Treatment Upcoming Encounters Date Type Department Care Team (Late st Contact Info) Description 07/02/2024 13:30 EST Office Visit [facility] Ophthalmology - [place] [address] [place] [address] Anjum Miranda MD 111 [facility], [address] [place] [address] documented as of this encounter [...] - BOTH EYES (04/30/2024 14:44 EDT) Narrative [facility] OPHTHALMOLOGY - 05/03/2024 11:16 EDT Right Eye Progression has been stable. Findings include normal foveal contour. Left Eye Quality was good. Progression has been stable. Findings include intraretinal fluid, pigment epithelial detachment. Notes Drusen, no fluid right eye intraretinal fluid over SRfibrosis left eye us Anjum Miranda MD OPHTH TOMOGRAPHY Final Result [facility] OPHTHALMOLOGY * INTRAVITREAL INJECTION, PHARMACOLOGIC AGENT - OS - LEFT EYE (04/30/2024 14:43 EDT) Narrative [facility] POINT OF CARE - 05/03/2024 11:16 EDT Time Out 04/30/2024. 14:43. Confirmed correct patient, procedure, site, and patient consented. Anesthesia Topical anesthesia was used. Anesthetic medications included Proparacaine 0.5%, Tetracaine 0.5%. Procedure Preparation included 5% betadine to ocular surface, eyelid speculum. A 30 gauge needle was used. Injection: 8 mg aflibercept 8 mg/0.07 mL ??Route: intravitreal, Site: Left Eye ??[facility]: [id number], Lot: [id number], Expiration date: 07/17/2025 Post-op Post injection exam [...] 8 mg 8 mg, intravitreal, Starting on Fri04/30/24 at 1443, Until Fri05/03/24 at 1317, RoutineIndications:Exudative age-related macular degeneration of 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) Given 04/30/2024 14:43 EDT 8 mg Left Eye documented in this encounter Orders Medications Ordered That Blayne ht Not Have Been Administered Count Last Ordered Date First Ordered Date aflibercept (EYLEA HD) intra vitreal solution 8 mg 1 04/30/2024 documented in this encounter Eye Exam Visual Acuity (Snellen - Linear) Right eye Left eye Dist cc 20/30 20/70 Tonometry (Applanation, 13:21) Right eye Left eye Pressure 10 12 Neuro/Psych Oriented x3: Yes Mood/Affect: Normal Dilation Both eyes: Phenylephrine 2.5 %, Tropicamide 1% @ 13:21 Slit Lamp Exam Right eye Left eye [...] Normal Normal Periphery Attached Attached Care Teams Electrical Products Sales Engineer Relationship Specialty Start Date End Date Blanco Myles MD 26 [facility] [address] [place] [address] PCP - General Emergency Medicine 04/07/23 documented as of this encounter
--- OUTSIDE RECORDS SUMMARY | 2024-06-30 12:30 | XMS_ITS | Encounter Summary ---
Author Organization [facility] Address [address] [place] [address] Care Team Providers Care Purchasing Department Clerk Name Role Phone Blanco Myles MD Primary Care Provider [phone] Encounter Details Date Type Department Care Team (Late st Contact Info) Description 02/09/2024 Lab Requisition [facility] Pathology & Laboratory Medicine - [address] [address] Outr Resulting Lab, Provider Social History Tobacco [...] No 01/07/2018 21:35 EDT Kita Rebollar RN documented as of this encounter Mental Status * Because of a physical, mental, or emotional condition, do you have serious difficulty concentrating, remembering, or making decisions? (5 years old or older) Answer Entry Date Author No 01/07/2018 21:35 EDT Kita Rebollar RN documented in this encounter Plan of Treatment Upcoming Encounters Date Type Department Care Team (Late st Contact Info) Description 07/02/2024 13:30 EST Office Visit [facility] Ophthalmology - [address] [id number] Anjum Miranda MD 111 [facility], [address] [place] [address] documented as of this encounter Procedures Procedure Name Priority Date/Time Associated Diagnosis Comments CCP ANTIBODIES Routine 02/09/2024 11:10 EDT RHEUMATOID FACTOR Routine 02/09/2024 11: 10 EDT ANTI NUCLEAR AB (ANDRÉS), IFA Routine 02/09/2024 11:10 EDT documented in this encounter Results * (ABNORMAL) RHEUMATOID FACTOR (02/09/2024 11:10 EDT) Rheumatoid Factor 17.0(H) <12.0 IU/mL 02/09/2024 22:34 EDT [facility] Blood VENOUS BLOOD / Unknown 02/09/2024 11:10 EDT 02/09/2024 22:14 EDT us Provider Outr Resulting Lab CHEMISTRY & BLOOD GA S ORDERABLES Final Result Performing Organization Address [facility] Co de Phone Number [facility] [address] [place] [address] * ANTI NUCLEAR AB (ANDRÉS), IFA (02/09/2024 11:10 EDT) ANDRÉS Interpretation Negative Negative 2023 12:17 EDT [facility] Comment:No titer performed, ANDRÉS Screen is negative. Blood VENOUS BLOOD / Unknown 02/09/2024 11:10 EDT 02/09/2024 22:14 EDT Narrative [facility] - 02/10/2024 12:17 EDT Results were obtained with the Chic[employer] NOVA Lite HEp-2 ANDRÉS Kit by indirect immunofluorescence. us Provider Outr Resulting Lab IMMUNOLOGY AND SEROL OGY ORDERABLES Final Result Performing Organization Address [facility] Co de Phone Number [facility] [address] [place] [address] * CCP ANTIBODIES (02/09/2024 11:10 EDT) [facility] CCP Antibodies <2.5 <5.0 U/mL 02/10/2024 8:39 EDT [facility] Blood VENOUS BLOOD / Unknown 02/09/2024 11:10 EDT 02/09/2024 22:14 EDT us Provider Outr Resulting Lab IMMUNOLOGY AND SEROL OGY ORDERABLES Final Result Performing Organization Address [facility] Co de Phone Number [facility] [address] [place] [address] documented in this encounter Visit Diagnoses Not on filedocumented in this encounter Care Teams Purchasing Department Clerk Relationship Specialty Start Date End Date Blanco Myles MD 26 [facility] [address] [place] [address] PCP - General Emergency Medicine 04/07/23 documented as of this encounter
--- OUTSIDE RECORDS SUMMARY | 2024-06-30 12:30 | XMS_ITS | Referral Summary ---
Author Organization [facility] Address [address] [place] [address] Care Team Providers Care Ring Packer Name Role Phone Blanco Myles MD Primary Care Provider [phone] Encounters Date Type Department Care Team Description 04/30/2024 13:00 EDT Office Visit [facility] Ophthalmology - [facility] [address] [place] [address] Anjum Miranda MD from Last 3 Months [...] (09/09/2019): Added automatically from request for surgery [id number] Acute blood loss anemia 01/13/2018 Periprosthetic fracture [...] Index 28.49 10/08/2019 1150 EST Functional Status * Are you deaf or [...] Author No 01/07/2018 21:35 Kita Segovia RN Mental Status * Because of a physical, mental, or emotional condition, do you have serious difficulty concentrating, remembering, or making decisions? (5 years old or older) Answer Entry Date Author No 01/07/2018 21:35 Kita Segovia RN Plan of Treatment Upcoming Encounters Date Type Department Care Team (Late st Contact Info) Description 07/02/2024 13:30 EST Office Visit [facility] Ophthalmology - [address] [address] Anjum Miranda MD [address] [place] [address], [address] [place] [address] Medical Devices Implanted Type Area Coremaker Device Identifier Shelf Expiration Date Model / Serial / Lot Lens Intraocular Monfocl Ant Bicnvx Opt Foldable +21.0d Wavefront [id number] - [id number] - [id number] Implanted:Qty: 1 on 09/29/2019 by Mu Acosta MD at [facility] Lens Left: Eye [employer] [id number] 04/17/2024 [id number] .0 / [id number] / Lens Intraocular Monfocl Ant Bicnvx Opt Foldable +20.5d [employer]front [id number] - [id number] - [id number] Implanted:Qty: 1 on 10/14/2019 by Mu Acosta MD at [facility] Lens Right: Eye [employer] [id number] 03/17/2024 [id number] .5 / [id number] / Procedures Procedure Name Priority Date/Time [...] - BOTH EYES (04/30/2024 14:44 EDT) Narrative [facility] OPHTHALMOLOGY - 05/03/2024 11:16 EDT Right Eye Progression has been stable. Findings include normal foveal contour. Left Eye Quality was good. Progression has been stable. Findings include intraretinal fluid, pigment epithelial detachment. Notes Drusen, no fluid right eye intraretinal fluid over SRfibrosis left eye us Anjum Miranda MD OPHTH TOMOGRAPHY Final Result [facility] OPHTHALMOLOGY * INTRAVITREAL INJECTION, PHARMACOLOGIC AGENT - OS - LEFT EYE (04/30/2024 14:43 EDT) Narrative [facility] POINT OF CARE - 05/03/2024 11:16 EDT Time Out 04/30/2024. 14:43. Confirmed correct patient, procedure, site, and patient consented. Anesthesia Topical anesthesia was used. Anesthetic medications included Proparacaine 0.5%, Tetracaine 0.5%. Procedure Preparation included 5% betadine to ocular surface, eyelid speculum. A 30 gauge needle was used. Injection: 8 mg aflibercept 8 mg/0.07 mL ??Route: intravitreal, Site: Left Eye ??[facility]: 85641-511-42, Lot: [id number], Expiration date: 07/17/2025 Post-op Post injection exam found visual acuity of at least counting fingers. The patient tolerated the procedure well. There were no complications. The patient received written and verbal post procedure care education. Post injection medications were not given. Anjum Miranda MD OPHTH CLINIC PROCEDURES Final Re sult [facility] POINT OF CARE from Last 3 Months Insurance [facility] MEDICARE Advance Directives For more information, please contact: [phone] * Full Code (Latest Code Status on [...] participated in the discussion? Patient Care Teams Ring Packer Relationship Specialty Start Date End Date Blanco Myles MD 26 [facility] [address] [place] [address] PCP - General Emergency Medicine 04/07/23
--- OUTSIDE RECORDS SUMMARY | 2024-06-30 12:30 | XMS_ITS | Encounter Summary ---
Author Organization [facility] Address [address] [place] [address] Care Team Providers Care Demonstrator Sewing Techniques Name Role Phone Blanco Myles MD Primary Care Provider [phone] Reason for Visit * Reason Onset Date Comments Appointment Related 05/12/2023 Encounter Details Date Type Department Care Team (Late st Contact Info) Description 05/12/2023 Telephone [facility] Ophthalmology - [facility] [address] [place], [place] [phone] Anjum Miranda MD 111 [facility], [address] [place] [address] Appointment Related Social History Tobacco [...] Date of Assessment Author No 01/07/2018 21:35 EDKita Berry RN documented as of this encounter Mental Status * Because of a physical, mental, or emotional condition, do you have serious difficulty concentrating, remembering, or making decisions? (5 years old or older) Answer Entry Date Author No 01/07/2018 21:35 EDKita Berry RN documented in this encounter Miscellaneous Notes [...] Office Visit [facility] Ophthalmology - [address] [address] Anjum Miranda MD [address] [place] [address] [address] [place] [id number] documented as of this encounter Visit Diagnoses Not on filedocumented in this encounter Care Teams Demonstrator Sewing Techniques Relationship Specialty Start Date End Date Blanco Myles MD 26 [facility] [address] [place] [address] PCP - General Emergency Medicine 04/07/23 documented as of this encounter
[2024-06-30 12:31] LABS: Abs Immature Grans 0.02 10^3/uL (0.0-0.06); Absolute Basophil Count 0.03 10^3/uL (0.0-0.2); Absolute Eosinophil Count 0.07 10^3/uL (0.0-0.7); Absolute Lymphocyte Count 2.58 10^3/uL (1.2-3.4); Absolute Monocyte Count 0.53 10^3/uL (0.1-0.8); Absolute Neutrophil Count 3.16 10^3/uL (1.2-6.7); Basophils % 0.5 %; Eosinophils % 1.1 %; HCT 29.6 % (40.0-50.0); HGB 8.9 g/dL (13.5-17.5); Immature Grans % 0.3 %; Lymphocytes % 40.4 %; MCH 26.2 pg (27.0-33.0); MCHC 30.1 % (32.0-36.0); MCV 87 fL (80-95); MPV 9.6 fL (8.0-11.0); Monocytes % 8.3 %; Neutrophils % 49.4 %; Platelet Count 100 10^3/uL (130-400); RDW 15.3 % (11.8-14.1); RDW-SD 48.7 fL; WBC 6.39 10^3/uL (4.4-10.8)
--- OUTSIDE RECORDS SUMMARY | 2024-06-30 12:31 | XMS_ITS | Encounter Summary ---
Author Organization [facility] Address [address] [place] [address] Care Team Providers Care Assistant Professor Of Theater Name Role Phone Karo Otero MD Primary Care Provider [phone] Reason for Visit * Reason Comments Eye Problem Encounter Details Date Type Department Care Team (Late st Contact Info) Description 08/06/2019 9:15 EST Office Visit [facility] Ophthalmology - [address] [address] Mu Acosta MD 111 [facility] [address] [place] [address] Social History Tobacco Use Types [...] Kita Segovia RN documented in this encounter Ordered Prescriptions Prescription Sig Dispense Quantity Refills Last Filled Start Date End Date moxifloxacin (VIGAMOX) 0.5 % ophthalmic solution Place 1 Drop into the left eye 4 times daily. Start three days prior to surgery, and continue until gone 1 Bottle 1 08/06/2019 0 prednisoLONE (PRED FORTE) 1 % ophthalmic suspension Place 1 Drop into the left eye 4 times daily. Start after surgery 1 Bottle 1 08/06/2019 0 ketOROLAC (ACULAR) 0.5 % ophthalmic solution Place 1 Drop into the left eye 4 times daily. Start three days prior to surgery, and continue until gone 1 Bottle 1 08/06/2019 0 documented in this encounter Progress Notes * [...] same floaters longstanding. SHAYY: 1 year ago, [facility]. No hx of eye surg/trauma. [...] & Symptoms: SHAYY: [address] [facility]. No hx of eye surg/trauma Attestation: ROS Constitutional: NL ENT/Mouth NL Cardiovascular: High Blood Pressure, High Cholesterol Respiratory: NL Gastrointestinal: NL Genitourinary: NL Musculoskeletal: NL Integumentary: NL Neurologic: NL Psychiatric: NL Endocrine: NL Hematologic: NL Immunologic: NL Condominium Manager: Exposures: None Other: Attestation: Allergies include: Patient [...] Normal Normal Refraction Wearing Rx Sphere Cylinder [place] Add Right -0.50 +0.50 155 150/3.00 Left [place] +0.50 018 150/300 Manifest Refraction Sphere Cylinder [place] Dist [place] Right -1.00 +0.50 155 20/40 [...] 07/02/2024 13:30 EST Office Visit [facility] Ophthalmology - [address] [address] Anjum Miranda MD [address] [place] [address], [address] [place] [address] documented as of this encounter Procedures Procedure Name Priority Date/Time Associated Diagnosis Comments IOL MASTER/LENS STAR ONLY Routine 08/06/2019 10:57 EST Combined forms of age-related cataract, bilateral documented in this encounter Results * IOL MASTER/LENS STAR ONLY (08/06/2019 10:57 EST) Narrative POINT OF CARE [facility] - 08/06/2019 10:57 EST See scan us Mu Acosta MD OPHTH ULTRASOUND Final R esult POINT OF CARE [facility] documented in this encounter Visit Diagnoses Diagnosis [...] Vessels Normal Normal Wearing Rx Sphere Cylinder [place] Add Right eye -0.50 +0.50 155 150/3.00 Left eye [place] +0.50 018 150/300 Manifest Refraction Sphere Cylinder [place] Dist [place] Right eye -1.00 +0.50 155 20/40 Left eye -0.75 +0.50 020 20/40 Care Teams Assistant Professor Of Theater Relationship Specialty Start Date End Date Karo Otero MD [address] [place] [address] PCP - General 01/07/18 04/06/23 documented as of this encounter
--- OUTSIDE RECORDS SUMMARY | 2024-06-30 12:31 | XMS_ITS | Encounter Summary ---
Author Organization [facility] Address [address] [place] [address] Care Team Providers Care Papier Mache' Molder Name Role Phone Karo Otero MD Primary Care Provider [phone] Reason for Visit * Reason Onset Date Comments Eye Problem 12/13/2019 Encounter Details Date Type Department Care Team (Late st Contact Info) Description 12/13/2019 Telephone [facility] Ophthalmology - [address] [phone] Mu Acosta MD 111 [facility], [address] [place] [address] Eye Problem Social History Tobacco [...] Info) Description 07/02/2024 13:30 EST Office Visit [facility] Ophthalmology - [facility] [address] [place] [address] Anjum Miranda MD 111 [facility], [address] [place] [address] documented as of this encounter Visit Diagnoses Not on filedocumented in this encounter Care Teams Papier Mache' Molder Relationship Specialty Start Date End Date Karo Otero MD [address] [place] [address] PCP - General 01/07/18 04/06/23 documented as of this encounter
--- OUTSIDE RECORDS SUMMARY | 2024-06-30 12:31 | XMS_ITS | Encounter Summary ---
Author Organization [facility] Address [address] [place] [address] Care Team Providers Care Seasonal Driver Name Role Phone Karo Otero MD Primary Care Provider [phone] Reason for Visit * Reason Comments Hip Injury Right femur pain ' Encounter Details Date Type Department Care Team (Latest Contact Info) Description 12/09/2018 10:30 EDT Office Visit [facility] Total Joint Program - [address] [address] Mauricio Dodson MD MSc [facility] [address] [place] [address] Periprosthetic fracture around internal prosthetic [...] Kita Segovia RN documented in this encounter Discharge Diagnoses Diagnosis Z47.1 Aftercare [...] irrigation, debridement and a 2-stage revision in [place]). 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
--- OUTSIDE RECORDS SUMMARY | 2024-06-30 12:31 | XMS_ITS | Encounter Summary ---
Author Organization [facility] Address [address] [place] [address] Care Team Providers Care Regional Service Manager Name Role Phone Karo Otero MD Primary Care Provider [phone] Reason for Visit * Reason Onset Date Comments Medications Refill 09/13/2019 Encounter Details Date Type Department Care Team (Late st Contact Info) Description 09/13/2019 Telephone [facility] Ophthalmology - [facility] [address] [place], [place] [phone] Mu Acosta MD 111 [facility], [address] [place] [address] Medications Refill Social History Tobacco [...] of Assessment Author Yes 01/07/2018 21:35 Kita Sgeovia RN * Do you have serious difficulty [...] Refills Last Filled Start Date End Date prednisoLONE (PRED FORTE) 1 % ophthalmic suspension Place 1 Drop into the left eye 4 times daily. Start after surgery 1 Bottle 1 09/15/2019 0 ketOROLAC (ACULAR) 0.5 % ophthalmic solution Place 1 Drop into the left eye 4 times daily. Start three days prior to surgery, and continue until gone 1 Bottle 1 09/15/2019 0 moxifloxacin (VIGAMOX) 0.5 % ophthalmic solution Place 1 Drop into the left eye 4 times daily. Start three days prior to surgery, and continue until gone 1 Bottle 1 09/15/2019 0 documented in this encounter Miscellaneous Notes * Telephone Encounter - Leroy Combs RN - 09/15/2019 0827 EST Called [facility]. They got the orders [...] 09/29/2019. Meds needs to be ordered under [place]. Meds were sent on 08/06/19. Message out to Riana Torres for assistance. Leroy Combs RN 09/13/2019 14:43 * Telephone Encounter - Adebayo Christine - 09/13/2019 1319 EST Patient needs pre-op cataracts drops re-ordered under [facility] to [facility] in [facility] documented in this encounter Plan of Treatment Upcoming Encounters Date Type Department Care Team (Late st Contact [facility]) Description 07/02/2024 13:30 EST Office Visit [facility] Ophthalmology - [facility] [address] [place], [place] [address] Anjum Miranda MD 111 [facility], [address] [place] [address] documented as of this encounter [...] documented as of this encounter Care Teams Regional Service Manager Relationship Specialty Start Date End Date Karo Otero MD [address] [place] [address] PCP - General 01/07/18 04/06/23 documented as of this encounter
--- OUTSIDE RECORDS SUMMARY | 2024-06-30 12:31 | XMS_ITS | Encounter Summary ---
Author Organization [facility] Address [address] [place] [address] Care Team Providers Care Sourcing Consultant Name Role Phone Karo Otero MD Primary Care Provider [phone] Reason for Visit * Reason Comments Follow-up Encounter Details Date Type Department Care Team (Late st Contact Info) Description 03/01/2020 8:45 EDT Office Visit [facility] Ophthalmology - [address] [phone] Mu Acosta MD [address] [place] [address], [address] [place] [address] Social History Tobacco Use Types [...] Psychiatric: NL Endocrine: NL Hematologic: Immunologic: NL Heat Sealing Machine Operator: Exposures: None Other: Attestation: Allergies include: Percocet [...] sc 20/40 Refraction Wearing Rx Sphere Cylinder [place] Add Right -0.50 +0.50 155 150/3.00 Left [place] +0.50 018 150/300 Manifest Refraction Sphere Cylinder [place] Dist [place] Add Right -0.25 +0.25 010 20/25+2 +2.50 Left -0.75 +0.25 010 20/40 +2.50 Final Rx Sphere Cylinder [place] Add Right -0.25 +0.25 010 +2.50 Left [...] my own HPI and have reviewed the [facility]'s ROS as well. I personally completed this [...] Description 07/02/2024 13:30 EST Office Visit [facility] Ophthalmology - [address] [address] Anjum Miranda MD [address] [facility], [address] [place] [phone] documented as of this encounter Visit Diagnoses [...] ph sc 20/40 Wearing Rx Sphere Cylinder [place] Add Right eye -0.50 +0.50 155 150/3.00 Left eye [place] +0.50 018 150/300 Manifest Refraction Sphere Cylinder [place] Dist [place] Add Right eye -0.25 +0.25 010 20/25+2 +2.50 Left eye -0.75 +0.25 010 20/40 +2.50 Final Rx Sphere Cylinder [place] Add Right eye -0.25 +0.25 010 +2.50 Left eye -0.75 +0.25 010 +2.50 Expiration Date: 03/02/2021 Care Teams Sourcing Consultant Relationship Specialty Start Date End Date Karo Otero MD [address] [place] [address] PCP - General 01/07/18 04/06/23 documented as of this encounter
--- OUTSIDE RECORDS SUMMARY | 2024-06-30 12:31 | XMS_ITS | Encounter Summary ---
Author Organization [facility] Address [address] [place] [address] Care Team Providers Care Power Barker Name Role Phone Karo Otero MD Primary Care Provider [phone] Reason for Visit * Reason Comments Knee Pain right Encounter Details Date Type Department Care Team (Latest Contact Info) Description 03/04/2018 15:40 EDT Office Visit [facility] Total Joint Program - [address] [address] Mauricio Dodson MD MSc [address] [address] Periprosthetic fracture around internal prosthetic right [...] EDT documented in this encounter Functional Status * Are you [...] documented in this encounter Discharge Diagnoses Diagnosis M97.8XXD Periprosth [...] Info) Description 07/02/2024 13:30 EST Office Visit [facility] Ophthalmology - [address] [address] Anjum Miranda MD 111 [facility], [address] [place] [phone] documented as of this encounter Visit Diagnoses Diagnosis 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
--- OUTSIDE RECORDS SUMMARY | 2024-06-30 12:31 | XMS_ITS | Encounter Summary ---
Author Organization [facility] Address [address] [place] [address] Care Team Providers Care Agency Trainer Name Role Phone Karo Otero MD Primary Care Provider [phone] Encounter Details Date Type Department Care Team (Late st Contact Info) Description 09/27/2019 Prep for Procedure [facility] Ophthalmology - [address] [phone] Mu Acosta MD 111 [facility], [address] [place] [address] Social History Tobacco Use Types [...] Info) Description 07/02/2024 13:30 EST Office Visit [facility] Ophthalmology - [facility] [address] [place] [address] Anjum Miranda MD 111 [facility], [address] [place] [phone] documented as of this encounter Visit Diagnoses Not on filedocumented in this encounter Care Teams Agency Trainer Relationship Specialty Start Date End Date Karo Otero MD [address] [place] [address] PCP - General 01/07/18 04/06/23 documented as of this encounter
--- OUTSIDE RECORDS SUMMARY | 2024-06-30 12:31 | XMS_ITS | Encounter Summary ---
Author Organization [facility] Address [address] [place] [address] Care Team Providers Care Pbx Operator Name Role Phone Karo Otero MD Primary Care Provider [phone] Reason for Visit * Reason Comments Post-OP Follow Up Encounter Details Date Type Department Care Team (Late st Contact Info) Description 10/22/2019 14:00 EST Post-op Visit [facility] Ophthalmology - [address] [address] Mu Acosta MD [address] [facility], [address] [place] [address] Bilateral pseudophakia (Primary Dx); Amblyopia, [...] Dr. Acosta ??? MOHS SURGERY local ??? [place] XCAPSL CTRC RMVL INSJ IO LENS PROSTH W/O ECP Left 09/29/2019 Cataract Extraction w/IOL Implant, LEFT EYE performed by Mu Acosta MD at [facility] OR ??? REVISION TOTAL KNEE ARTHROPLASTY 2017 s/p irrigation,debridement and 2 -stage revision [place] - no problems ??? RHINOPLASTY 1991 [place] - no problems ??? TONSILLECTOMY 1944 [place] - no problems ??? TOTAL KNEE ARTHROPLASTY Right 2008, 2011 in [place] s/p I&D - antibiotics then 2 [...] Normal Refraction Manifest Refraction (Auto) Sphere Cylinder [place] Right -1.25 +0.50 025 Left -2.00 +0.75 [...] Info) Description 07/02/2024 13:30 EST Office Visit [facility] Ophthalmology - [facility] [address] [place] [address] Anjum Miranda MD [address] [facility], [address] [place] [address] documented as of this encounter [...] Periphery Normal Manifest Refraction (Auto) Sphere Cylinder [place] Right eye -1.25 +0.50 025 Left eye -2.00 +0.75 130 Care Teams Pbx Operator Relationship Specialty Start Date End Date Karo Otero MD [address] [place] [address] PCP - General 01/07/18 04/06/23 documented as of this encounter
--- OUTSIDE RECORDS SUMMARY | 2024-06-30 12:31 | XMS_ITS | Encounter Summary ---
Author Organization [facility] Address [address] [place] [address] Care Team Providers Care Exhaust Tender Name Role Phone Karo Otero MD Primary Care Provider [phone] Reason for Visit * Reason Comments Post-OP Follow Up Encounter Details Date Type Department Care Team (Late st Contact Info) Description 09/30/2019 10:15 EST Post-op Visit [facility] Ophthalmology - [address] [address] Mu Acosta MD 111 [facility], [address] [place] [address] Pseudophakia, left eye (Primary Dx); [...] ??? CAD (coronary artery disease) ??? Cancer ([facility]) skin cancer ??? Cataract ??? Depression controlled [...] IMPLANT ??? CORONARY ANGIOPLASTY WITH STENT PLACEMENT 2018 2 stents ??? FEMUR FRACTURE SURGERY 2019 ORIF right periprosthetic fx above his revision TKR [place]- no problems ??? HAMMER TOE SURGERY 2004 [place]- no problems ??? INTRAOCULAR LENS PROSTHESIS INSERTION Left 09/29/2019 Dr. Acosta ??? MOHS SURGERY local ??? [place] XCAPSL CTRC RMVL INSJ IO LENS PROSTH W/O ECP Left 09/29/2019 Cataract Extraction w/IOL Implant, LEFT EYE performed by Mu Acosta MD at [facility] OR ??? REVISION TOTAL KNEE ARTHROPLASTY 2017 s/p irrigation,debridement and 2 -stage revision [place] - no problems ??? RHINOPLASTY 1991 [place] - no problems ??? TONSILLECTOMY 1944 [place] - no problems ??? TOTAL KNEE ARTHROPLASTY Right 2008, 2011 in [place] s/p I&D - antibiotics then [...] Info) Description 07/02/2024 13:30 EST Office Visit [facility] Ophthalmology - [address] [address] Anjum Miranda MD [address] [place] [address], [address] [place] [address] documented as of this encounter [...] Posterior chambe r intraocular lens Care Teams Exhaust Tender Relationship Specialty Start Date End Date Karo Otero MD [address] [place] [phone] PCP - General 01/07/18 04/06/23 documented as of this encounter
--- OUTSIDE RECORDS SUMMARY | 2024-06-30 12:31 | XMS_ITS | Encounter Summary ---
Author Organization [facility] Address [address] [place] [address] Care Team Providers Care Mixer Dry Food Products Name Role Phone Karo Otero MD Primary Care Provider [phone] Reason for Visit * Reason Comments Follow-up Encounter Details Date Type Department Care Team (Late st Contact Info) Description 01/24/2020 9:00 EDT Office Visit [facility] Ophthalmology - [address] [phone] Mu Acosta MD [address] [place] [address], [address] [place] [address] Social History Tobacco Use Types [...] capsulotomy, left eye Surgeon: Mu Acosta MD Summer Clerk: ROBBIN Florez Complications: None Anesthesia: Topical Patient [...] Description 07/02/2024 13:30 EST Office Visit [facility] Ophthalmology - [address] [phone] Anjum Miranda MD 111 [facility], [address] [place] [address] documented as of this encounter Procedures Procedure Name Priority Date/Time Associated Diagnosis Comments YAG CAPSULOTOMY - OS - LEFT EYE Routine 01/24/2020 13:39 EDT Posterior capsular opacification, left documented in this encounter Results * YAG CAPSULOTOMY - OS - LEFT EYE (01/24/2020 13:39 EDT) Narrative [facility] - 01/24/2020 13:39 EDT Anesthesia Topical anesthesia was used. Anesthesia medications included Alphagan 0.15%. Laser Information The type of laser was yag. Post-op The patient tolerated the procedure well. There were no complications. The patient received written and verbal post procedure care education. Notes Procedure note: YAG capsulotomy, left eye Surgeon: Mu Acosta MD Summer Clerk: ROBBIN Florez Complications: None Anesthesia: Topical Patient [...] 6 months for DFE Mu Acosta MD OPHTH CLINIC PROCEDURES Final Result [facility] documented in this encounter Visit Diagnoses [...] Ph enylephrine 2.5% @ 9:47 Care Teams Mixer Dry Food Products Relationship Specialty Start Date End Date Karo Otero MD [address] [place] [phone] PCP - General 01/07/18 04/06/23 documented as of this encounter
--- OUTSIDE RECORDS SUMMARY | 2024-06-30 12:31 | XMS_ITS | Encounter Summary ---
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 [H25.813] Procedures [place] XCAPSL CTRC RMVL INSJ IO LENS PROSTH W/O ECP Cataract Extraction w/IOL Implant, LEFT EYE Referral ID Status Reason Start Date Expiration Date Visits Re quested Visits Authorized [id number] 1 1 Encounter Details Date Type Department Care Team (Late st Contact Info) Description 09/29/2019 13:25 EST - 09/29/2019 14:10 EST Surgery [facility] Operating Room [address] [place], [place] [address] Mu Acosta MD [address] [facility], Level 5 [place] [address] Cataract Extraction w/IOL Implant, LEFT EYE [93227 (CPT??)] Surgery Details Date/Time Status Location OR Service Patient Class Case Class Case Type Trauma Case? 09/29/2019 1325 Posted [facility] OR FOR 04 Ophthalmology [...] EST documented in this encounter Functional Status * [...] Segovia RN documented in this encounter Discharge Instructions * [...] this encounter Medications at Time of Discharge acebutoloL (SECTRAL) 200 mg capsule Take 1 [...] (FISH OIL ORAL) Take by mouth daily. IRBESARTAN-HYDROCH LOROTHIAZIDE ORAL Take by mouth. Multivitamins with Minerals [...] continue until gone 5 mL 1 09/21/2019 0 moxifloxacin (VIGAMOX) 0.5 % ophthalmic solution Place 1 Drop into the left eye 4 times daily. Start three days prior to surgery, and continue until gone 1 Bottle 1 09/15/2019 0 prednisoLONE (PRED FORTE) 1 % ophthalmic suspension Place 1 Drop into the left eye 4 times daily. Start after surgery 1 Bottle 1 09/15/2019 0 documented as of this encounter Discharge Disposition Disposition Code Departure Means Destination Home or Self Senior Living documented in this encounter H&P Notes * [...] Acosta MD 09/29/2019 14:05 Source Note - BREASTFEEDING EDUCATOR, SCAN 2 - 09/23/2019 11:20 EST documented in this encounter OR Notes * OR Surgeon - Mu Acosta MD - 09/29/2019 1451 EST Preoperative diagnosis: combined senile cataract, left eye Postoperative diagnosis: Same as above Procedure: Phacoemulsification with intraocular lens implantation, left eye Surgeon: Mu Acosta MD Experimental Flight Test Mechanic: ROBBIN Shah Anesthesia: Local with monitored anesthesia [...] Visit [facility] Ophthalmology - [facility] [address] [place], [place] [address] Anjum Miranda MD [address] [facility], [address] [place] [address] documented as of this encounter Procedures Procedure Name Priority Date/Time Associated Diagnosis Comments IMPLANT RECORD - SCANNED 10/05/2019 22:25 EST EXTRACTION, CATARACT, EXTRACAPSULAR, WITH IOL INSERTION 09/29/2019 14:17 EST Combined forms of age-related cataract of both eyes documented in this encounter Results * IMPLANT RECORD - SCANNED (10/05/2019 22:25 EST) 10/05/2019 22:2 5 EST us Scan 2 Program Proposals Coordinator PROCEDURE/MINOR SURGICAL OR DERABLES Final Result documented in this encounter Visit Diagnoses Diagnosis [...] may reflect changes made after this encounter. IRBESARTAN-HYDROCH LOROTHIAZIDE ORAL Take by mouth. added in this [...] Carolynn Olivia RN)1309 (Given - Provider: Carolynn Olivia RN) ketOROLAC tromethamine (ACULAR LS) 0.4 % ophthalmic solution 1 Drop (COMPLETED) 1 Drop, left eye, PREOP LINKED EYE MEDS-SEE ADMIN INSTRUCTIONS, 3 doses, First dose on Fri09/29/19 at 1300, Last dose on Fri09/29/19 at 1310, Routine, Preprocedure 1304 (Given - Provid er: Carolynn Olivia RN)1305 (Given - Provider: Carolynn Olivia RN)1306 (Given - Provider: Carolynn Olivia RN) moxifloxacin (VIGAMOX) 0.5 % ophthalmic solution [...] Carolynn Olivia RN)1313 (Given - Provider: Carolynn Steller, RN)1314 (Given - Provider: Carolynn Olivia RN) [...] CONTINUOUS, Starting on Fri09/29/19 at 1500, Until 09/29/19 at 1710, Routine, [...] Mu Acosta MD - Comment: BSS Plus [id number] BSS Part II [id number]) chondroitin-sodium hyaluronate (VISCOAT) ophthalmic solution (CANCELED) As needed, Starting on 09/29/19 at 1432, Until 09/29/19 at 1434, Routine, Intraprocedure 1432 (Given - Provid er: Mu Acosta MD - Comment: [id number]) lidocaine (PF) 10 mg/mL (1 %) injection (CANCELED) As needed, Starting on 09/29/19 at 1432, Until 09/29/19 at 1434, Routine, Intraprocedure 1432 (Given - Provid er: Mu Acosta MD - Comment: [id number]) moxifloxacin (VIGAMOX) 0.5 % ophthalmic solution (CANCELED) As needed, Starting on 09/29/19 at 1433, Until 09/29/19 at 1434, Routine, Intraprocedure 1433 (Given - Provid er: ROBBIN Florez) povidone-iodine 5 % ophthalmic solution (CANCELED) As needed, Starting on 09/29/19 at 1433, Until Fri09/29/19 at 1434, Routine, Intraprocedure 1433 (Given - Provid er: ROBBIN Florez) sodium hyaluronate (HEALON) ophthalmic injection (CANCELED) As needed, Starting on 09/29/19 at 1434, Until 09/29/19 at 1434, Routine, Intraprocedure 1434 (Given - Provid er: ROBBIN Florez) timolol (TIMOPTIC) 0.5 % ophthalmic solution (CANCELED) As needed, Starting on 09/29/19 at 1434, Until Fri09/29/19 at 1434, Routine, Intraprocedure 1434 (Given - Provid er: ROBBIN Florez) documented in this encounter Orders Medications Ordered [...] 09/29/2019 documented in this encounter Care Teams Display Maker Relationship Specialty Start Date End Date Karo Otero MD [address] [place] [phone] PCP - General 01/07/18 04/06/23 documented as of this encounter
--- OUTSIDE RECORDS SUMMARY | 2024-06-30 12:31 | XMS_ITS | Encounter Summary ---
Author Organization [facility] Address [address] [place] [address] Care Team Providers Care Audience Coordinator Name Role Phone Karo Otero MD Primary Care Provider [phone] Reason for Referral * Radiology Services (Routine) - New Request Specialty Diagnoses / Procedures Referred By Contac t Referred To Contact Diagnoses Right leg pain Procedures FEMUR 2 OR MORE VIEWS Mauricio Dodson MD MSc FRC Phone: tel: fax: Referral ID Status Reason Start Date Expiration Date V isits Requested Visits Authorized [id number] New Request 03/04/2018 1 1 Reason for Visit * Reason Onset Date Comments Other 03/04/2018 Encounter Details Date Type Department Care Team (Late st Contact Info) Description 03/04/2018 Orders Only [facility] Total Joint Program - [address] [address] Mauricio Dodson MD MSc FRCSC [address] [place] [address] Right leg pain (Primary Dx) Social [...] Info) Description 07/02/2024 13:30 EST Office Visit [facility] Ophthalmology - [address] [phone] Anjum Miranda MD [address] [place] [address], [address] [place] [phone] documented as of this encounter Procedures Procedure [...] right hip. Soft tissues are grossly unremarkable. aMuricio Dodson MD MSc FRCSC IMG DIAGNOSTIC I MAGING ORDERABLES Final Result documented in this encounter Visit Diagnoses Diagnosis Right leg pain- Primary Pain in limb documented in this encounter Care Teams Audience Coordinator Relationship Specialty Start Date End Date Karo Otero MD [address] [place] [address] PCP - General 01/07/18 04/06/23 documented as of this encounter
--- OUTSIDE RECORDS SUMMARY | 2024-06-30 12:31 | XMS_ITS | Encounter Summary ---
Author Organization [facility] Address [address] [place] [address] Care Team Providers Care Scientific Laboratory Supervisor Name Role Phone Karo Otero MD Primary Care Provider [phone] Reason for Referral * Radiology Services (Routine) - Closed Specialty Diagnoses / Procedures Referred By Contac t Referred To Contact Diagnoses Pain in right femur Chronic pain of right knee Procedures KNEE 1 OR 2 VIEWS Mauricio Dodson MD [facility] Phone: tel: fax: Referral ID Status Reason Start Date Expiration Date Visits Re quested Visits Authorized [id number] Closed 12/08/2018 1 1 * Radiology Services (Routine) - Closed Specialty Diagnoses / Procedures Referred By Contac t Referred To Contact Diagnoses Pain in right femur Chronic pain of right knee Procedures KNEE 1 OR 2 VIEWS Mauricio Dodson MD [facility] Phone: tel: fax: Referral ID Status Reason Start Date Expiration Date Visits Re quested Visits Authorized [id number] Closed 12/08/2018 1 1 * Radiology Services (Routine) - Closed Specialty Diagnoses / Procedures Referred By Contac t Referred To Contact Diagnoses Pain in right femur Procedures FEMUR 2 OR MORE VIEWS Mauricio Dodson MD [facility] Phone: tel: fax: Referral ID Status Reason Start Date Expiration Date Visits Re quested Visits Authorized [id number] Closed 12/08/2018 1 1 Encounter Details Date Type Department Care Team (Late st Contact Info) Description 12/04/2018 Orders Only [facility] Total Joint Program - [facility] [address] [place] [address] Mauricio Dodson MD MSc [facility] [address] [place] [address] Pain in right femur (Primary [...] Info) Description 07/02/2024 13:30 EST Office Visit [facility] Ophthalmology - [facility] [address] [place], [place] [phone] Anjum Miranda MD 111 [facility], [address] [place] [address] documented as of this encounter [...] 2 VIEWS ??12/09/2018 10:45 AM HISTORY: ?? 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 us Mauricio Dodson MD MSc [facility] IMG DIAGNOSTIC I MAGING ORDERABLES Final Result * KNEE 1 OR 2 VIEWS (12/09/2018 10:45 EDT) Anatomical Region Laterality Modality Other 12/09/2018 10:4 5 EDT 12/09/2018 12:53 EDT Narrative 12/09/2018 12:53 EDT EXAM/TECHNIQUE: RIGHT KNEE 1 OR 2 VIEWS, RIGHT FEMUR 2 OR MORE VIEWS, LEFT KNEE 1 OR 2 VIEWS ??12/09/2018 10:45 AM HISTORY: ?? M89.3D4-Gkttm specified disorders of bone, rjrci-DQM-62 M25.561-Pain in right knee-ICD-10; Right Total Knee [...] OR 2 VIEWS 12/09/2018 10:45 AM HISTORY: M89.2R5-Slmkz specified disorders of bone, jzwde-DHN-83 M25.561-Pain in right knee-ICD-10; Right Total Knee [...] compartment. Mauricio Dodson MD MSc FRCSC IMG DIAGNOSTIC I MAGING ORDERABLES Final Result * FEMUR 2 OR MORE VIEWS (12/09/2018 10:45 EDT) Anatomical Region Laterality Modality Other 12/09/2018 10:4 5 EDT 12/09/2018 12:53 EDT Narrative 12/09/2018 12:53 EDT EXAM/TECHNIQUE: RIGHT KNEE 1 OR 2 VIEWS, RIGHT FEMUR 2 OR MORE VIEWS, LEFT KNEE 1 OR 2 VIEWS ??12/09/2018 10:45 AM HISTORY: ?? M89.2J7-Xqjnz specified disorders of bone, yxayz-YTN-59 M25.561-Pain in right knee-ICD-10; Right Total Knee [...] OR 2 VIEWS 12/09/2018 10:45 AM HISTORY: M89.7G7-Jepxe specified disorders of bone, jvbsl-DLA-79 M25.561-Pain in right knee-ICD-10; Right Total Knee [...] and limits evaluation of the patellofemoral compartment. us Mauricio Dodson MD MSc FRCSC IMG DIAGNOSTIC I MAGING ORDERABLES Final Result documented in this encounter Visit Diagnoses Diagnosis Pain in right femur- Primary Chronic pain of right knee documented in this encounter Care Teams Scientific Laboratory Supervisor Relationship Specialty Start Date End Date Karo Otero MD [address] [place] [address] PCP - General 01/07/18 04/06/23 documented as of this encounter
--- OUTSIDE RECORDS SUMMARY | 2024-06-30 12:31 | XMS_ITS | Encounter Summary ---
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 [H25.813] Procedures SD XCAPSL CTRC RMVL INSJ IO LENS PROSTH W/O ECP Cataract Extraction w/IOL Implant, RIGHT EYE Referral ID Status Reason Start Date Expiration Date Visits Re quested Visits Authorized [id number] 1 1 Encounter Details Date Type Department Care Team (Late st Contact Info) Description 10/14/2019 10:46 EST - 10/14/2019 14:50 [facility] Hospital Encounter [facility] Operating Room [address] [place] [address] Mu Acosta MD [address] [facility], [address] 5 [place] [address] Discharge Disposition: Home or Self [...] (FISH OIL ORAL) Take by mouth daily. IRBESARTAN-HYDRO CHLOROTHIAZIDE ORAL Take by mouth. Multivitamins with Minerals [...] Acosta MD 10/14/2019 13:54 Source Note - NURSE COMPANION, LUIS 2 - 10/08/2019 14:45 EST documented in this encounter OR Notes * OR Surgeon - Mu Acosta MD - 10/14/2019 1441 EST Preoperative diagnosis: Combined senile cataract, right eye Postoperative diagnosis: Same as above Procedure: Phacoemulsification with intraocular lens implantation, right eye Surgeon: Mu Acosta MD Welder Apprentice Gas: ROBBIN Shah Anesthesia: Local with monitored anesthesia [...] Description 07/02/2024 13:30 EST Office Visit [facility] Ophthalmology - [address] [address] Anjum Miranda MD [address] [facility], [address] 5 [place] [phone] documented as of this encounter Procedures Procedure Name Priority Date/Time Associated Diagnosis Comments IMPLANT RECORD - SCANNED 10/25/2019 18:00 EDT EXTRACTION, CATARACT, EXTRACAPSULAR, WITH IOL INSERTION 10/14/2019 14:11 EST Combined forms of age-related cataract of both eyes documented in this encounter Results * IMPLANT RECORD - SCANNED (10/25/2019 18:00 EDT) 10/25/2019 18:0 0 EDT us Scan 2 Jet Blade Polisher PROCEDURE/MINOR SURGICAL OR DERABLES Final Result documented [...] INSTRUCTIONS, 3 doses, First dose on Nilda 220 at 1345, Last dose on Nilda 2/20 at 1355, Routine, Preprocedure 1220 (Given - [...] Mu Acosta MD - Comment: Part I [id number] Pat II [id number]) balanced salts (BSS) ophthalmic solution (CANCELED) As needed, Starting on Nilda 10/14/19 at 1428, Until Nilda 10/14/19 at 1431, Routine, Intraprocedure 1428 (Given - Provid er: Mu Acosta MD) chondroitin-sodium hyaluronate (VISCOAT) ophthalmic solution (CANCELED) As needed, Starting on Nilda 10/14/19 at 1429, Until Nilda 10/14/19 at 1431, Routine, Intraprocedure 1429 (Given - Provid er: Mu Acosta MD - Comment: #[id number]) lidocaine (PF) 10 mg/mL (1 %) injection (CANCELED) As needed, Starting on Nilda 10/14/19 at 1429, Until Nilda 10/14/20 at 1431, Routine, Intraprocedure 1429 (Given - Provid er: Mu Acosta MD - Comment: #[id number]) moxifloxacin (VIGAMOX) 0.5 % ophthalmic solution (CANCELED) As needed, Starting on Nilda 10/14/19 at 1431, Until Nilda 2/27/20 at 1431, Routine, Intraprocedure 1431 (Given - Provid er: ROBBIN Florez) povidone-iodine 5 % ophthalmic solution (CANCELED) As needed, Starting on Nilda 10/14/19 at 1429, Until Nilda 10/14/19 at 1431, Routine, Intraprocedure 1429 (Given - Provid er: ROBBIN Florez) sodium hyaluronate (HEALON) ophthalmic injection (CANCELED) As needed, Starting on Nilda 10/14/19 at 1430, Until Nilda 220 at 1431, Routine, Intraprocedure 1430 (Given - Provid er: Mu Acosta MD - Comment: #[id number]) timolol (TIMOPTIC) 0.5 % ophthalmic solution (CANCELED) [...] 10/14/2019 documented in this encounter Care Teams Data Technical Lead Relationship Specialty Start Date End Date Karo Otero MD [address] [place] [address] PCP - General 01/07/18 04/06/23 documented as of this encounter
--- OUTSIDE RECORDS SUMMARY | 2024-06-30 12:31 | XMS_ITS | Encounter Summary ---
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 [H25.813] Procedures [place] XCAPSL CTRC RMVL INSJ IO LENS PROSTH W/O ECP Cataract Extraction w/IOL Implant, RIGHT EYE Referral ID Status Reason Start Date Expiration Date Visits Re quested Visits Authorized [id number] 1 1 Encounter Details Date Type Department Care Team (Late st Contact Info) Description 10/14/2019 13:30 EST - 10/14/2019 14:15 EST Surgery [facility] Operating Room [address] [place] [address] Mu Acosta MD 111 [facility], [address] [place] [address] Cataract Extraction w/IOL Implant, RIGHT EYE [[id number] (CPT??)] Surgery Details Date/Time Status Location OR Service Patient Class Case Class Case Type Trauma Case? 10/14/2019 1330 Posted [facility] Outpatient Surgery [...] documented in this encounter H&P Notes * uM Acosta MD - 10/14/2019 1353 EST The preoperative history and physical which was performed within 30 days of this procedure has been reviewed and the clinically appropriate elements of the physical examination have been repeated. There are no changes to the documented history and physical or if so such changes are documented below Mu Acosta MD 10/14/2019 13:54 Source Note - ENDOCRINOLOGY SPECIALIST, LUIS 2 - 10/08/2019 14:45 EST documented in this encounter OR Notes * OR Surgeon - Mu Acosta MD - 10/14/2019 1441 EST Preoperative diagnosis: Combined senile cataract, right eye Postoperative diagnosis: Same as above Procedure: Phacoemulsification with intraocular lens implantation, right eye Surgeon: Mu Acosta MD Medical Director Of Hospice: ROBBIN Shah Anesthesia: Local with monitored anesthesia [...] Info) Description 07/02/2024 13:30 EST Office Visit [facility] Ophthalmology - [address] [address] Anjum Miranda MD [address] [place] [address], [facility] [address] [place] [address] documented as of this encounter Procedures Procedure Name Priority Date/Time Associated Diagnosis Comments IMPLANT RECORD - SCANNED 10/25/2019 18:00 EDT EXTRACTION, CATARACT, EXTRACAPSULAR, WITH IOL INSERTION 10/14/2019 14:11 EST Combined forms of age-related cataract of both eyes documented in this encounter Results * IMPLANT RECORD - SCANNED (10/25/2019 18:00 EDT) 10/25/2019 18:0 0 EDT us Scan 2 Audit Analyst PROCEDURE/MINOR SURGICAL OR DERABLES Final Result documented [...] Mu Acosta MD - Comment: Part I [id number] Pat II [id number]) balanced salts (BSS) ophthalmic solution (CANCELED) As needed, Starting on Nilda 10/14/19 at 1428, Until Nilda 20 at 1431, Routine, Intraprocedure 1428 (Given - Provid er: Mu Acosta MD) chondroitin-sodium hyaluronate (VISCOAT) ophthalmic solution (CANCELED) As needed, Starting on Nilda 10/14/19 at 1429, Until Nilda 20 at 1431, Routine, Intraprocedure 1429 (Given - Provid er: Mu Acosta MD - Comment: #[id number]) lidocaine (PF) 10 mg/mL (1 %) injection (CANCELED) As needed, Starting on Nilda 10/14/19 at 1429, Until Nilda 10/14/19 at 1431, Routine, Intraprocedure 1429 (Given - Provid er: Mu Acosta MD - Comment: #[id number]) moxifloxacin (VIGAMOX) 0.5 % ophthalmic solution (CANCELED) As needed, Starting on Nilda 20 at 1431, Until Nilda 10/14/19 at 1431, [...] Provid er: Mu Acosta MD - Comment: #[id number]) timolol (TIMOPTIC) 0.5 % ophthalmic solution (CANCELED) [...] 10/14/2019 documented in this encounter Care Teams General Scrap Worker Relationship Specialty Start Date End Date Karo Otero MD [address] [place] [phone] PCP - General 01/07/18 04/06/23 documented as of this encounter
--- OUTSIDE RECORDS SUMMARY | 2024-06-30 12:31 | XMS_ITS | Encounter Summary ---
Author Organization [facility] Address [address] [place] [address] Care Team Providers Care Clinical Trial Associate Name Role Phone Karo Otero MD Primary Care Provider [phone] Reason for Visit * Reason Onset Date Comments Eye Problem 12/24/2019 Encounter Details Date Type Department Care Team (Late st Contact Info) Description 12/24/[address] [facility] Ophthalmology - [facility] [address] [place], [place] [phone] Mu Acosta MD [address] [facility], [address] [place] [address] Eye Problem Social History Tobacco [...] next week or so and see Dr Paul. Fiore to call early next week. Leroy Combs [...] Info) Description 07/02/2024 13:[address] [facility] Ophthalmology - [facility] [address] [place] [address] Anjum Miranda MD 111 [facility], [address] [place] [phone] documented as of this encounter Visit Diagnoses Not on filedocumented in this encounter Care Teams Clinical Trial Associate Relationship Specialty Start Date End Date Karo Otero MD [address] [place] [address] PCP - General 01/07/18 04/06/23 documented as of this encounter
--- OUTSIDE RECORDS SUMMARY | 2024-06-30 12:31 | XMS_ITS | Encounter Summary ---
Author Organization [facility] Address [address] [place] [address] Care Team Providers Care White Sidewall Tire Buffer Name Role Phone Karo Otero MD Primary Care Provider [phone] Reason for Referral * Radiology Services (Routine) - New Request Specialty Diagnoses / Procedures Referred By Contac t Referred To Contact Diagnoses Pain in right femur Procedures FEMUR 2 OR MORE VIEWS Mauricio Dodson MD MSc FRCSC Phone: tel: fax: Referral ID Status Reason Start Date Expiration Date V isits Requested Visits Authorized [id number] New Request 06/08/2018 1 1 Reason for Visit * Reason Onset Date Comments Other 06/08/2018 Encounter Details Date Type Department Care Team (Late st Contact Info) Description 06/08/2018 Orders Only [facility] Total Joint Program - [address] [address] Mauricio Dodson MD MSc FRCSC [address] [place] [phone] Pain in right femur (Primary Dx) [...] Info) Description 07/02/2024 13:30 EST Office Visit [facility] Ophthalmology - [address] [address] Anjum Miranda MD 111 [facility], [address] [place] [address] documented as of this encounter Procedures Procedure Name Priority Date/Time Associated Diagnosis Comments FEMUR 2 OR MORE VIEWS Routine 06/10/2018 10:35 EDT Pain in right femur documented in this encounter Results * FEMUR 2 OR MORE VIEWS (06/10/2018 10:35 EDT) Anatomical Region Laterality Modality Other 06/10/2018 10:3 5 EDT 06/10/2018 15:28 EDT Narrative 06/10/2018 15:28 EDT HISTORY: ?? M89.3Z1-Vuvls specified disorders of bone, [id number]-17; right ORIF tay Prosth fx COMPARISON: None. [...] Note Chang Merlos MD - 06/10/2018 HISTORY: M89.0N4-Ufcup specified disorders of bone, [id number]-LPY-10; right ORIF tay Prosth fx COMPARISON: None. [...] setting of loosening. Mauricio Dodson MD MSc [facility] [place] [facility] [place] MAGING ORDERABLES Final Result documented in this encounter Visit Diagnoses Diagnosis Pain in right femur- Primary documented in this encounter Care Teams [employer] Buffer Relationship Specialty Start Date End Date Karo Otero MD [address] [place] [address] PCP - General 01/07/18 04/06/23 documented as of this encounter
--- OUTSIDE RECORDS SUMMARY | 2024-06-30 12:31 | XMS_ITS | Encounter Summary ---
Author Organization [facility] Address [address] [place] [address] Care Team Providers Care Product Promoter Retail Pet Name Role Phone Karo Otero MD Primary Care Provider [phone] Encounter Details Date Type Department Care Team (Late st Contact Info) Description 10/13/2019 Prep for Procedure [facility] Ophthalmology - [address] [address] Mu Acosta MD [address] [place] [address], [address] [place] [address] Social History Tobacco Use Types [...] Info) Description 07/02/2024 13:30 EST Office Visit [facility] Ophthalmology - [facility] [address] [place] [address] Anjum Miranda MD 111 [facility], [address] [place] [phone] documented as of this encounter Visit Diagnoses Not on filedocumented in this encounter Care Teams Product Promoter Retail Pet Relationship Specialty Start Date End Date Karo Otero MD [address] [place] [phone] PCP - General 01/07/18 04/06/23 documented as of this encounter
--- OUTSIDE RECORDS SUMMARY | 2024-06-30 12:31 | XMS_ITS | Encounter Summary ---
Author Organization [facility] Address [address] [place] [address] Care Team Providers Care Online Community Manager Name Role Phone Karo Otero MD Primary Care Provider [phone] Reason for Visit * Reason Onset Date Comments Medication Adherence 09/20/2019 Encounter Details Date Type Department Care Team (Late st Contact Info) Description 09/20/2019 Refill [facility] Ophthalmology - [address] [address] Mu Acosta MD [address] [place] [address], [address] [place] [address] Medication Adherence Social History Tobacco [...] Refills Last Filled Start Date End Date ketOROLAC tromethamine (ACULAR LS) 0.4 % drops Place 1 Drop into the left eye 4 times daily. Start three days prior to surgery, and continue until gone 5 mL 1 09/21/2019 0 documented in this encounter Miscellaneous Notes * Telephone Encounter - Leroy Combs RN - 09/21/2019 1210 EST Okay to change to 0.4%. Send to [facility]. Same directions. Leroy Combs RN 09/21/2019 12:11 * Telephone Encounter - Kera Concepcion RN - 09/20/2019 1658 EST Message left on Dr. Simpson's desk. * Telephone Encounter - Agustina Eric - 09/20/2019 1042 EST Hope from [facility]'s pharmacy called. They do not have ketorolac .5%- its on backorder. They DO have .4% or replace with something else documented in this encounter Plan of Treatment Upcoming Encounters Date Type Department Care Team (Late st Contact Info) Description 07/02/2024 13:30 EST Office Visit [facility] Ophthalmology - [address] [phone] Anjum Miranda MD 111 [facility], [address] [place] [phone] documented as of this encounter Visit Diagnoses Not on filedocumented in this encounter Discontinued Medications Medication Sig Discontinue Reason Start Date End Da te ketOROLAC (ACULAR) 0.5 % ophthalmic solution Place 1 Drop into the left eye 4 times daily. Start three days prior to surgery, and continue until gone 09/15/2019 09/21/2019 documented as of this encounter Care Teams Online Community Manager Relationship Specialty Start Date End Date Karo Otero MD [address] [place] [address] PCP - General 01/07/18 04/06/23 documented as of this encounter
--- OUTSIDE RECORDS SUMMARY | 2024-06-30 12:31 | XMS_ITS | Encounter Summary ---
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 [H25.813] Procedures [place] XCAPSL CTRC RMVL INSJ IO LENS PROSTH W/O ECP Cataract Extraction w/IOL Implant, RIGHT EYE Referral ID Status Reason Start Date Expiration Date Visits Re quested Visits Authorized [id number] 1 1 Encounter Details Date Type Department Care Team (Late st Contact Info) Description 10/14/2019 14:16 EST Anesthesia Event [facility] Operating Room [address] [place] [address] Swapnil Lechuga MD [address] [address] Miriam Mullen CRNA [address] [address] Anesthesia Record Procedure Summary Procedure [...] of Assessment Author No 01/07/2018 21:35 Kita Segovia, MANAN * Are you blind or do you have serious difficulty seeing, even when wearing glasses? Answer Date of Assessment Author Yes 01/07/2018 21:35 Kita Segovia, MANAN * Do you have serious difficulty walking [...] Kita Segovia RN documented in this encounter OR Notes * Anesthesia Postprocedure Evaluation - Miriam Mullen APRN - 10/14/2019 9118 EST Patient: Tra Brothers III Last Vitals [...] Evaluation - Swapnil Lechuga MD - 10/14/2019 2517 EST Anesthesia Preprocedure Evaluation Patient Medical History, [...] Info) Description 07/02/2024 13:30 EST Office Visit [facility] Ophthalmology - [facility] [address] [place] [address] Anjum Miranda MD 111 [facility], [address] [place] [phone] documented as of this encounter Visit Diagnoses [...] mg documented in this encounter Care Teams Factory Worker Relationship Specialty Start Date End Date Karo Otero MD [address] [place] [address] PCP - General 01/07/18 04/06/23 documented as of this encounter
--- OUTSIDE RECORDS SUMMARY | 2024-06-30 12:31 | XMS_ITS | Encounter Summary ---
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 weightbearing as tolerated with a walker Encounter Details Date Type Department Care Team (Late st Contact Info) Description 03/20/2018 Orders Only [facility] Total Joint Program - [facility] [place] [address] Mauricio Dodson MD MSc FRCSC [address] [place] [phone] Periprosthetic fracture around internal prosthetic right [...] Info) Description 07/02/2024 13:30 EST Office Visit [facility] Ophthalmology - [address] [address] Anjum Miranda MD [address] [place] [address], [address] [place] [address] Scheduled Referrals Name Type Priority Associated Diagnoses Orde r Schedule AMB CONS/FOLLOW UP PHYSICAL THERAPY Outpatient Referral Routine 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
--- OUTSIDE RECORDS SUMMARY | 2024-06-30 12:31 | XMS_ITS | Encounter Summary ---
Author Organization [facility] Address [address] [place] [address] Care Team Providers Care Editor Index Name Role Phone Karo Otero MD Primary Care Provider [phone] Reason for Visit * Auth/Cert Specialty Diagnoses / Procedures 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 [H25.813] Procedures [place] XCAPSL CTRC RMVL INSJ IO LENS PROSTH W/O ECP Cataract Extraction w/IOL Implant, LEFT EYE Referral ID Status Reason Start Date Expiration Date Visits Re quested Visits Authorized [id number] 1 1 Encounter Details Date Type Department Care Team (Late st Contact Info) Description 09/29/2019 10:52 EST - 09/29/2019 15:10 [facility] Hospital Encounter [facility] Operating Room [address] [place] [address] Mu Acosta MD 111 [facility], [address] [place] [address] Discharge Disposition: Home or Self [...] Code Departure Means Destination Home or Self Jail documented in this encounter H&P Notes * [...] Acosta MD 09/29/2019 14:05 Source Note - OIL EXPELLER OPERATOR, LUIS 2 - 09/23/2019 11:20 EST documented in this encounter OR Notes * OR Surgeon - Mu Acosta MD - 09/29/2019 3011 EST Preoperative diagnosis: combined senile cataract, left eye Postoperative diagnosis: Same as above Procedure: Phacoemulsification with intraocular lens implantation, left eye Surgeon: Mu Acosta MD Silver Designer: ROBBIN Shah Anesthesia: Local with monitored anesthesia [...] Office Visit [facility] Ophthalmology - [address] [address] Anjum Miranda MD [address] [place] [address], [address] [place] [phone] documented as of this encounter Procedures Procedure Name Priority Date/Time Associated Diagnosis Comments IMPLANT RECORD - SCANNED 10/05/2019 22:25 EST EXTRACTION, CATARACT, EXTRACAPSULAR, WITH IOL INSERTION 09/29/2019 14:17 EST Combined forms of age-related cataract of both eyes documented in this encounter Results * IMPLANT RECORD - SCANNED (10/05/2019 22:25 EST) 10/05/2019 22:2 5 EST us Scan 2 Invisible Braces Orthodontist PROCEDURE/MINOR SURGICAL OR DERABLES Final Result documented [...] Carolynn Olivia RN) Continuous Medication Order 09/27/2019 09/28/201909/2909/29/2019 lactated ringers (LR) infusion 30 mL/hr, intravenous, [...] 1430, Until Fri09/29/19 at 1434, Routine, Intraprocedure 1430 (Given - Provid er: Mu Acosta MD - Comment: BSS Plus [id number] BSS Part II [id number]) chondroitin-sodium hyaluronate (VISCOAT) ophthalmic solution (CANCELED) As needed, Starting on Fri09/29/19 at 1432, Until 09/29/19 at 1434, Routine, Intraprocedure 1432 (Given - Provid er: Mu Acosta MD - Comment: [id number]) lidocaine (PF) 10 mg/mL (1 %) injection (CANCELED) As needed, Starting on Fri09/29/19 at 1432, Until 09/29/19 at 1434, Routine, Intraprocedure 1432 (Given - Provid er: Mu Acosta MD - Comment: [id number]) moxifloxacin (VIGAMOX) 0.5 % ophthalmic solution (CANCELED) As needed, Starting on Fri09/29/19 at 1433, Until 09/29/19 at 1434, Routine, Intraprocedure 1433 (Given - Provid er: ROBBIN Florez) povidone-iodine 5 % ophthalmic solution (CANCELED) As needed, Starting on Fri09/29/19 at 1433, Until Fri09/29/19 at 1434, Routine, Intraprocedure 1433 (Given - Provid er: ROBBIN Florez) sodium hyaluronate (HEALON) ophthalmic injection (CANCELED) As needed, Starting on Fri09/29/19 [...] 09/29/2019 documented in this encounter Care Teams Editor Index Relationship Specialty Start Date End Date Karo Otero MD [address] [place] [address] PCP - General 01/07/18 04/06/23 documented as of this encounter
--- OUTSIDE RECORDS SUMMARY | 2024-06-30 12:31 | XMS_ITS | Encounter Summary ---
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, subsequent encounter Procedures FEMUR 2 OR MORE VIEWS Mauricio Dodson MD [facility]Sc [facility] Phone: tel: fax: Referral ID Status Reason Start Date Expiration Date V isits Requested Visits Authorized [id number] New Request 01/30/2018 1 1 Reason for Visit * Reason Onset Date Comments Leg Injury 01/30/2018 Encounter Details Date Type Department Care Team (Late st Contact Info) Description 01/30/2018 Orders Only [facility] Orthopedic Trauma - [address] [address] Mauricio Dodson MD MSc [facility] [address] [place] [address] Periprosthetic fracture around internal prosthetic right [...] Info) Description 07/02/2024 13:30 EST Office Visit [facility] Ophthalmology - [address] [address] Anjum Miranda MD [address] [place] [address], [address] [place] [address] documented as of this encounter [...] around internal prosthetic right knee joint, subsequent [id number]; Right periprosthetic distal femur fracture surrounding revision [...] degenerative changes in the hip. 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
--- OUTSIDE RECORDS SUMMARY | 2024-06-30 12:31 | XMS_ITS | Encounter Summary ---
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 [H25.813] Procedures [place] XCAPSL CTRC RMVL INSJ IO LENS PROSTH W/O ECP Cataract Extraction w/IOL Implant, LEFT EYE Referral ID Status Reason Start Date Expiration Date Visits Re quested Visits Authorized [id number] 1 1 Encounter Details Date Type Department Care Team (Late st Contact Info) Description 09/29/2019 14:22 EST Anesthesia Event [facility] Operating Room [address] [place] [address] Dick Tamayo MD [address] [address] Sophia Mckeon AA [address] [address] Anesthesia Record Procedure Summary Procedure [...] Assessment Author No 01/07/2018 21:35 EDT Kita Rebollar, MANAN * Are you blind or do [...] Evaluation - Sophia Mckeon AA - 09/29/2019 1444 EST Patient: Tra Brothers III Last [...] Evaluation - Davi Chaves MD - 09/29/2019 3726 EST Anesthesia Preprocedure Evaluation Patient Medical History, [...] ??? CAD (coronary artery disease) ??? Cancer ([facility]) skin cancer ??? Cataract ??? Depression controlled with med ??? Exercise involving exercise classes pool exercise- 2 hrs week, cardiac rehab 2x week ??? History of general anesthesia ??? HTN (hypertension) 09/22/19 - controlled with med ??? Hyperlipidemia 09/22/19 - controlled with med ??? Post PTCA 2 2018 ??? S/P [...] coronary artery (-) CHF (congestive heart failure) ([facility]) GASTROINTESTINAL (-) Gastroesophageal reflux disease ENDO/GI (-) Diabetes mellitus type 1 ([facility]) (-) Diabetes mellitus, type 2 (HCC-CMS) Physical [...] Info) Description 07/02/2024 13:30 EST Office Visit [facility] Ophthalmology - [address] [address] Anjum Miranda MD 111 [facility], [address] [place] [address] documented as of this encounter [...] 020 documented in this encounter Care Teams Slab Installer Relationship Specialty Start Date End Date Karo Otero MD [address] [place] [phone] PCP - General 01/07/18 04/06/23 documented as of this encounter
--- OUTSIDE RECORDS SUMMARY | 2024-06-30 12:31 | XMS_ITS | Encounter Summary ---
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, initial encounter Maciej Dawkins MD Phone: tel: fax: Mauricio Dodson MD MSc [facility]CSC Phone: tel: fax: Referral ID Status Reason Start Date Expiration Date V isits Requested Visits Authorized [id number] Closed Specialty Services Required 01/17/2018 1 1 Encounter Details Date Type Department Care Team (Latest Contact Info) Description 02/02/2018 10:30 EDT Post-op Visit [facility] Total Joint Program - [address] [address] Mauricio Dodson MD MSc FRCSC [address] [place] [phone] Periprosthetic fracture around internal prosthetic right [...] documented in this encounter Discharge Diagnoses Diagnosis M97.11XD Periprosth [...] Info) Description 07/02/2024 13:30 EST Office Visit [facility] Ophthalmology - [address] [address] Anjum Miranda MD 111 [facility], [address] [place] [phone] documented as of this encounter Visit Diagnoses Diagnosis 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 cyanocobalamin (VITAMIN B-12) 500 mcg tablet Take 1 Tablet by mouth daily. docosahexanoic acid/epa (FISH OIL ORAL) Take by mouth daily. added in this encounter Care Teams Sql Programmer Analyst Relationship Specialty Start Date End Date Karo Otero MD [address] [place] [phone] PCP - General 01/07/18 04/06/23 documented as of this encounter
--- OUTSIDE RECORDS SUMMARY | 2024-06-30 12:31 | XMS_ITS | Encounter Summary ---
Author Organization [facility] Address [address] [place] [address] Care Team Providers Care Plant Technician/Control Room Operator Name Role Phone Karo Otero MD Primary Care Provider [phone] Reason for Visit * Reason Comments Post-OP Follow Up Encounter Details Date Type Department Care Team (Late st Contact Info) Description 10/15/2019 9:15 EST Post-op Visit [facility] Ophthalmology - [address] [address] Mu Acosta MD 111 [facility], [address] [place] [address] Bilateral pseudophakia (Primary Dx); Amblyopia, [...] ??? Cancer ([facility]) skin cancer ??? Cataract ??? Depression [...] Dr. Acosta ??? MOHS SURGERY local ??? [place] XCAPSL CTRC RMVL INSJ IO LENS PROSTH W/O ECP Left 09/29/2019 Cataract Extraction w/IOL Implant, LEFT EYE performed by Mu Acosta MD at [facility] OR ??? REVISION TOTAL KNEE ARTHROPLASTY 2017 s/p irrigation,debridement and 2 -stage revision [place] - no problems ??? RHINOPLASTY 1991 [place] - no problems ??? TONSILLECTOMY 1944 [place] - no problems ??? TOTAL KNEE ARTHROPLASTY Right 2008, 2011 in [place] s/p I&D - antibiotics then 2 nd [...] intraocular lens Refraction Wearing Rx Sphere Cylinder [place] Add Right -0.50 +0.50 155 150/3.00 Left [place] +0.50 018 150/300 Manifest Refraction Sphere Cylinder [place] Dist [place] Right Left -1.00 +0.75 165 [...] Info) Description 07/02/2024 13:30 EST Office Visit [facility] Ophthalmology - [address] [phone] Anjum Miranda MD 111 [facility], [address] [place] [address] documented as of this encounter [...] intraocular le ns Wearing Rx Sphere Cylinder [place] Add Right eye -0.50 +0.50 155 150/3.00 Left eye [place] +0.50 018 150/300 Manifest Refraction Sphere Cylinder [place] Dist [place] Right eye Left eye -1.00 +0.75 165 20/40 Care Teams Plant Technician/Control Room Operator Relationship Specialty Start Date End Date Karo Otero MD [address] [place] [address] PCP - General 01/07/18 04/06/23 documented as of this encounter
--- OUTSIDE RECORDS SUMMARY | 2024-06-30 12:31 | XMS_ITS | Encounter Summary ---
Author Organization [facility] Address [address] [place] [address] Care Team Providers Care Boatswains Mate Name Role Phone Karo Otero MD Primary Care Provider [phone] Reason for Visit * Reason Comments Eye Problem Encounter Details Date Type Department Care Team (Late st Contact Info) Description 12/28/2019 14:30 EDT Office Visit [facility] Ophthalmology - [address] [address] Mu Acosta MD [address] [place] [address], [address] [place] [address] Social History Tobacco Use Types [...] Duration: Weeks Timing: Constant Lasts: Continuous Context: [place] across vision of left eye Modifying factors: Began about 6 weeks ago Associated Signs & Symptoms: No flashes or floaters Attestation: ROS Constitutional: NL ENT/Mouth NL Cardiovascular: High Blood Pressure Respiratory: NL Gastrointestinal: NL Genitourinary: NL Musculoskeletal: NL Integumentary: NL Neurologic: NL Psychiatric: NL Endocrine: NL Hematologic: Immunologic: NL Transmission System Operator: Exposures: None Other: Attestation: Allergies include: [...] Info) Description 07/02/2024 13:30 EST Office Visit [facility] Ophthalmology - [facility] [address] [place], [place] [address] Anjum Miranda MD 111 [facility], [address] [place] [address] documented as of this encounter [...] Left eye -0.75 Sphere 20/30 Care Teams Boatswains Mate Relationship Specialty Start Date End Date Karo Otero MD [address] [place] [phone] PCP - General 01/07/18 04/06/23 documented as of this encounter
--- OUTSIDE RECORDS SUMMARY | 2024-06-30 12:31 | XMS_ITS | Encounter Summary ---
Author Organization [facility] Address [address] [place] [address] Care Team Providers Care Solar Design Engineer Name Role Phone Karo Otero MD Primary Care Provider [phone] Reason for Visit * Reason Comments Knee Pain right Encounter Details Date Type Department Care Team (Latest Contact Info) Description 06/10/2018 10:30 EDT Office Visit [facility] Total Joint Program - [address] [phone] Mauricio Dodson MD MSc [address] [address] Periprosthetic fracture around internal prosthetic [...] documented in this encounter Discharge Diagnoses Diagnosis S72.8X1D Other [...] Info) Description 07/02/2024 13:30 EST Office Visit [facility] Ophthalmology - [address] [address] Anjum Miranda MD [address] [place] [address], [address] [place] [address] documented as of this encounter Visit Diagnoses Diagnosis 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
--- OUTSIDE RECORDS SUMMARY | 2024-06-30 12:31 | XMS_ITS | Encounter Summary ---
Author Organization [facility] Address [address] [place] [address] Care Team Providers Care Mold Yard Crane Operator Name Role Phone Karo Otero MD Primary Care Provider [phone] Reason for Visit * Reason Comments Post-OP Follow Up Encounter Details Date Type Department Care Team (Late st Contact Info) Description 10/08/2019 13:30 EST Post-op Visit [facility] Ophthalmology - [address] [address] Mu Acosta MD 111 [facility], [address] [place] [address] Pseudophakia, left eye (Primary Dx); [...] continue until gone 1 Bottle 1 10/08/2019 0 prednisoLONE (PRED FORTE) 1 % ophthalmic suspension Place 1 Drop into the right eye 4 times daily. Start after surgery 1 Bottle 1 10/08/2019 0 ketOROLAC (ACULAR) 0.5 % ophthalmic solution Place 1 Drop into the right eye 4 times daily. Start three days prior to surgery, and continue until gone 1 Bottle 1 10/08/2019 0 documented in this encounter Progress Notes * Mu Acosta MD - 10/08/2019 1333 EST Chief Complaint Patient presents with ??? [...] Dr. Acosta ??? MOHS SURGERY local ??? [place] XCAPSL CTRC RMVL INSJ IO LENS PROSTH W/O ECP Left 09/29/2019 Cataract Extraction w/IOL Implant, LEFT EYE performed by Mu Acosta MD at [facility] OR ??? REVISION TOTAL KNEE ARTHROPLASTY 2017 s/p irrigation,debridement and 2 -stage revision [place] - no problems ??? RHINOPLASTY 1991 [place] - no problems ??? TONSILLECTOMY 1944 [place] - no problems ??? TOTAL KNEE ARTHROPLASTY Right 2011 in [place] s/p I&D - antibiotics then 2 nd [...] Vessels Normal Refraction Manifest Refraction Sphere Cylinder [place] Dist [place] Right Left -1.00 Sphere 180 [...] my own HPI and have reviewed the [place]'s ROS as well. I personally completed this [...] 07/02/2024 13:30 EST Office Visit [facility] Ophthalmology - [address] [address] Anjum Miranda MD 111 [facility], [address] [place] [phone] documented as of this encounter Visit Diagnoses [...] Normal Vessels Normal Manifest Refraction Sphere Cylinder [place] Dist [place] Right eye Left eye -1.00 Sphere 180 20/20 Care Teams Mold Yard Crane Operator Relationship Specialty Start Date End Date Karo Otero MD [address] [place] [address] PCP - General 01/07/18 04/06/23 documented as of this encounter
--- OUTSIDE RECORDS SUMMARY | 2024-06-30 12:32 | XMS_ITS ---
Author Organization Unknown Address [address] [place] [phone] Phone Care Team Providers Care Certification Officer Name Role Phone CRAIG LATIF MD Attending [...] CHOW M.D. RADIOLOGIST Transcribed by: JOSE 04/30/2116:24 [id number] Electronically Reviewed and Signed By: CALVIN CHOW [...] CHOW M.D. RADIOLOGIST Transcribed by: JOSE 04/30/21/16:31 [id number] Electronically Reviewed and Signed By: CALVIN CHOW M.D. RADIOLOGIST 05/01/21 11:01 Social History Type Status Start Date End Date Code Code Syst em Smoking History Former smoker 08/18/19954963 6032523 SNOMED CT Sex Male Medications Medication Start Date End Date Route Frequency Dose Code Code System Medication Instructions Home Meds Androderm 4MG/24HR Transdermal Patch, Extended Release 09/25/2021 Unknown TRANSDERMAL BEDTIME 1 TRANSDERMAL PATCH 2130380 RxNorm APPLY 1 TRANSDERMAL PATCH TRANSDERMAL BEDTIME Aspir 81 81MG Oral Tablet, Enteric Coated 09/25/2021 Unknown ORAL DAILY 81 MILLIGRAMS RxNorm TAKE 81 MILLIGRAMS ORAL DAILY Atorvastatin Calcium 80MG Oral Tablet 09/25/2021 Unknown ORAL BEDTIME 80 MILLIGRAMS 574154 RxNorm TAKE 80 MILLIGRAMS ORAL BEDTIME Calcium 600 MG Oral Tablet 09/25/2021 Unknown ORAL DAILY 600 MG 520720 RxNorm TAKE 600 MG ORAL DAILY Temazepam 15MG Oral Capsule 09/25/2021 Unknown ORAL BEDTIME 15 MILLIGRAMS 906922 RxNorm TAKE 15 MILLIGRAMS ORAL BEDTIME Valsartan 160MG Oral Tablet 09/25/2021 09/25/19 22 ORAL DAILY 160 MILLIGRAMS 776397 RxNorm TAKE 160 MILLIGRAMS ORAL DAILY Vitamin D 1000IU Oral Tablet 09/25/2021 Unknown ORAL DAILY 1000 INTERNATIONA L UNITS 562265 RxNorm TAKE 1000 INTERNATIONA L UNITS ORAL DAILY buPROPion Hydrochlorid e SR 150MG Oral Tablet, Extended Release, 12 HR 09/25/2021 Unknown ORAL TWICE A DAY 150 MILLIGRAMS 5996486 RxNorm TAKE 150 MILLIGRAMS ORAL TWICE A DAY Valsartan 160MG Oral Tablet 09/25/2021 09/26/19 22 ORAL DAILY 160 MILLIGRAMS 663647 RxNorm TAKE 160 MILLIGRAMS ORAL DAILY Valsartan 160MG Oral Tablet 09/26/2021 Unknown ORAL DAILY 160 MILLIGRAMS 932440 RxNorm TAKE 1 TABLET BY MOUTH DAILY [...] arthrodesi s, deltoid ligament reconstruc tion 09/17 1585520 9 01/15/2026 Arthre x(R) AR-1319 FT Bone matrix implant, synthetic, non-antimi crobial 0110 8594 7700 2140 1121 1220 1723 0430 1017 2247 8 Active FDA left foot triple arthrodesi s, poss deltoid ligament reconsttru ction 09/17 [id number] 08/06/2021 12/15/2022 AUGMEN T(R) Inject able [id number] 10 +M53 6276 1501 51/$ $526 2702 0524 9120 3F Active FDA left foot triple arthrodesi s, possible deltoid ligament reconstruc tion 09/172491 203F 05/14/2026 Cancel lous Chips 4-9.5m m 15 cc Allergies and Adverse Reactions Allergy Substance Reaction Severity Start Date Concern Status Co de Code System OXYCODONE NAUSEA (SNOMED-CT: 713414581), Nausea (SNOMED-CT: 718967698) Mild Active 7804 RxNorm Plan of Treatment PRE-OP COVID-19 TESTING 09/14/2021 MRI LOWER EXT W/O CONTRAST 07/17/2021 Encounters Encounter Diagnosis Start Date Code Code Sys tem 04/30/2021 [id number] SNOMED-CT Personal Care Team Section Performer Name Performer Role Active Date Inactive Da valeri
--- OUTSIDE RECORDS SUMMARY | 2024-06-30 12:32 | XMS_ITS | Encounter Summary ---
Author Organization [facility] Address [address] [place] [address] Care Team Providers Care Chief Juvenile Probation Officer Name Role Phone Karo Otero MD Primary Care Provider [phone] Encounter Details Date Type Department Care Team (Late st Contact Info) Description 01/09/2018 Results Only Imaging [facility] Total Joint Program - [address] [address] Mauricio Dodson MD MSc FRCSC [address] [place] [address] Social History Tobacco Use Types [...] Info) Description 07/02/2024 13:30 EST Office Visit [facility] Ophthalmology - [address] [phone] Anjum Miranda MD 111 [facility], [address] [place] [phone] documented as of this encounter Procedures Procedure [...] sponges are identified. Mauricio Dodson MD, MSc [facility] IMG DIAGNOSTIC I MAGING ORDERABLES Final Result * PORT FLU[place]O UP TO 1 HOUR (01/09/2018 18:13 EDT) Anatomical Region Laterality Modality Other 01/09/2018 18:1 3 EDT Narrative 01/09/2018 18:13 EDT Non Reportable Exam Procedure Note SKATE MAKER, IMAGING - 01/09/2018 Non Reportable Exam Mauricio Dodson MD MSc [facility] ORDERABLES Final Result documented in this encounter Visit Diagnoses Not on filedocumented in this encounter Care Teams Chief Juvenile Probation Officer Relationship Specialty Start Date End Date Karo Otero MD [address] [place] [phone] PCP - General 01/07/18 04/06/23 documented as of this encounter
--- OUTSIDE RECORDS SUMMARY | 2024-06-30 12:32 | XMS_ITS | Encounter Summary ---
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, initial encounter Barber Dawkins MD Phone: tel: fax: Mauricio Dodson MD MSc [facility] Phone: tel: fax: Referral ID Status Reason Start Date Expiration Date V isits Requested Visits Authorized [id number] Closed Specialty Services Required 01/17/2018 1 1 Question Answer Reason for Request: s/p ORIF R periprosthetic femur fx 01/09 Expected Discharge Date (Inpatient Only): 01/13/2018 * (Routine) - Receiving Office to Obtain Authorization Specialty Diagnoses / Procedures Referred By Contac t Referred To Contact Ana Obrien NP Phone: tel: fax: Referral ID Status Reason Start Date Expiration Date Visits Requested Visits Authorized [id number] Receiving Office to Obtain Authorization Specialty Services Required 8 1 1 Comments See Mauricio Dodson MD. [facility] located at [address] [place] [address]. Call [phone] if no appointment is scheduled. 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, initial encounter Ana Obrien NP Phone: tel: fax: [facility] [place], [place] [address] [place] [address] Phone: tel: fax: Referral ID Status Reason Start Date Expiration Date Visits Requested Visits Authorized [id number] New Request Specialty Services Required 01/13/2018 1 1 Question Answer I certify that this patient is under my care and that I, or another Medicare allowed practitioner (DO INGRID, KEREN) working with me, had a muyi-ol-uipp encounter with this patient on this date: 01/13/2018 I further certify that the rxzd-hj-aqlx encounter was in whole or in part [...] heatlh care needs and plan of care [place] The patient? s homebound status is related [...] EDT - 01/13/2018 12:34 EDT Hospital Encounter 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 (5 years old or older) Answer Date of Assessment Author No 01/07/2018 21:35 Kita Segovia RN * Do you have difficulty dressing or bathing? (5 years old or older) Answer Date of Assessment Author No 01/07/2018 21:35 EDKita Berry RN * Because of a physical, mental, [...] documented in this encounter Discharge Diagnoses Diagnosis S72.401A Unspecified fracture of lower end of right femur, initial encounter for closed fracture-S72.401A[ICD-10-CM] M97.8XXA Periprosth fracture around other internal prosth joint, init-M97.8XXA[ICD-10-CM] D62 Acute posthemorrhagic anemia-D62[ICD-10-CM] N17.9 Acute kidney failure, unspecified-N17.9[ICD-10-CM] E87.1 HYPO-OSMOLALITY AND HYPONATREMIA[ICD-10-CM] Z79.01 extermination inspector (current) use of anticoagulants-Z79.01[ICD-10-CM] Z79.02 extermination inspector (current) use of antithrombotics/antiplatelets-Z79.02[ICD-10-CM] Z79.82 extermination inspector (current) use of aspirin-Z79.82[ICD-10-CM] R50.84 Febrile nonhemolytic transfusion reaction-R50.84[ICD-10-CM] I25.10 Atherosclerotic heart disease of salamatof coronary artery without angina pectoris-I25.10[ICD-10-CM] Z95.5 Presence of coronary angioplasty implant and graft-Z95.5[ICD-10-CM] I12.9 Hypertensive chronic kidney disease with stage 1 through stage 4 chronic kidney disease, or unspecified chronic kidney disease-I12.9[ICD-10-CM] N18.3 Chronic kidney disease, stage 3 (moderate)-N18.3[ICD-10-CM] D64.9 Anemia, unspecified-D64.9[ICD-10-CM] D69.6 Thrombocytopenia, unspecified-D69.6[ICD-10-CM] F32.9 Major depressive disorder, single episode, unspecified-F32.9[ICD-10-CM] G47.00 Insomnia, unspecified-G47.00[ICD-10-CM] Y92.007 [facility]-Y92.007[ICD-10-CM] W17.89XA Other fall from [...] combination bp medication on 01/15. - continue THIMBLE PRESS OPERATOR metoprolol bid - cont. homestatin elevated creatinine: [...] 01/13/2018 Discharge Follow Up Appointments Scheduled with [facility] in the next 3 months No future appointments. Appointments and Procedures Recommended to Patient Follow-up appointments and procedures Appointments See Mauricio Dodson MD. [facility] is located at [address] [place] [address]. Call [phone] if no appointment is scheduled. Authorizing Provider: Ana Obrien NP Home Health Agency - Other I certify that this patient is under my care and that I, or another Medicare authorized non-physician practitioner (PA or ALCOHOL LAW ENFORCEMENT AGENT) or resident working with me, had a yzse-ux-vheq encounter with this patient on this date: 01/13/2018 I further certify that the foaa-vo-wrme encounter was in whole or in part related to the reason thepatient needs home health care.: Yes The patient has had a owxi-wb-xqhn visit by me or one of my [...] NP Lorelei B Camp, NP 01/13/2018 11:12 Cosigned by Mauricio Dodson MD at 01/13/2018 11:32 EDT documented in this encounter Discharge Instructions * [...] this encounter Medications at Time of Discharge acetaminophen (TYLENOL) 500 mg tablet Take 2 [...] by mouth daily. 1 Tab 01/14/2018 08/06/2019 losartan-hydrochl orothiazide (HYZAAR) 100-25 mg per tablet Take 1 Tab by mouth daily. 01/15/2018 08/06/2019 metoprolol (LOPRESSOR) 12.5 mg Take 12.5 mg by mouth 2 times daily. 09/22/2019 traMADol (ULTRAM) 50 mg tablet Take 1 Tab by mouth every 6 hours as needed for Pain. Daily Max: 200 mg 15 Tab 01/13/2018 08/06/2019 documented as of this encounter Ordered Prescriptions Prescription Sig Dispense Quantity Refills Last Filled Start Date End Date Multivitamins with Minerals tablet tablet Take 1 [...] mouth 2 times daily as needed for Constipation . 01/13/2018 08/06/2019 enoxaparin (LOVENOX) 30 mg/0.3 mL injection Inject 30 mg into the skin every 12 hours for 27 days. 54 Syringe 01/13/2018 02/09/2018 losartan-hydrochlo rothiazide (HYZAAR) 100-25 mg per tablet Take 1 Tab by mouth daily. 01/15/2018 08/06/2019 losartan (COZAAR) 100 mg tablet Take 1 Tab by mouth daily. 1 Tab 01/14/2018 08/06/2019 documented in this encounter Discharge Disposition Disposition Code Departure Means Destination Home-Health Care c documented in this encounter Progress Notes * Ana Obrien NP - 01/13/2018 9454 EDT Post-discharge note: Patient with rcent PCI [...] ACNP-BC 01/14/2018 11:23 Nurse Practitioner Orthopedics Pager [phone] * Danielle Sapp, PT - 01/13/2018 1122 EDT The Rehabilitation Therapy Acute Therapies [facility] Physical Therapy Discontinue/Discharge Note Date of Service: 01/13/2018 Precautions: Activity as tolerated and Egg-shell touch down right LE ?? SUBJECTIVE: You lied to me, I am allowed 20# weight bearing (explained to pt that this was clarified after yesterdays PT session) OBJECTIVE: Intervention Completed Today: Physical therapist assistant baseball coach provided treatment today and Time: 0820 Total [...] by a physical therapist and physical therapist assistant baseball coach. Please refer to the physical therapy notes [...] therapist: Danielle Wolf PTA 01/13/2018 11:22 Pager: [phone] * Viviane Verduzco CSW - 01/13/2018 1010 EDT Met w/Allan this morning to check in about his preference for d/c. Allan plans to go home - he has RW & commode, but would like Pt. Called referral to [facility] for PT services. will be here 11:15 to take him home. RN, ortho aware. No other needs at this time lise gan hand flesher [phone] * Barber Dawkins MD - 01/13/2018 0843 [...] SpO2 99 %. 01/12 0700 - 01/13 659 In: 1480 [P.O.:1480] Out: 2350 [Urine:2350] RLE -REJI in place over entire extremity, left in place -Knee immobilizer -Vascular: Nonpalpable pulses, WWP -Sensory: Light touch sensation intact to superficial peroneal, deep peroneal, tibial nerves distributions. -Motor: 12/20 TA, gastroc, FHL, EHL Na/K/Cl/CO2: 130/4.6/100/26 (01/13 [...] Dawkins Orthopedic Surgery PGY2 01/13/2018 8:43 p3215 Cosigned by Mauricio Dodson MD at 01/13/2018 8:48 EDT * Emily Lui MD - 01/13/2018 0753 [...] nd No edema no carrillo Meds reviewed:in mar Labs reviewed: Bmp stable Sodium 130, stable [...] and plavix - given elevated bp, restart THIMBLE PRESS OPERATOR losartan at 100mg daily - cont. To hold HCTZ (25mg) given low sodium - cont. THIMBLE PRESS OPERATOR metoprolol bid - cont. Atorvastatin At d/c [...] 01/13/2018 * Sumeet Carpio DO - 01/12/2018 9784 EDT Medicine Progress Note Service Date: 01/12/2018 [...] have it rechcecked as an outpatient in [place] and if it is low, get an [...] QHS PRN ?? Discussed orthopedics resident Dr. Lui to assume care tomorrow Sumeet Carpio DO 01/12/2018 14:54 * Sera Wolf, THIMBLE PRESS OPERATOR - 01/12/2018 1240 EDT Rehabilitation Therapy Acute Therapies [facility] Physical Therapy Encounter Note Date of Service: [...] home and as last resort [facility] want [facility] for [facility] due to its proximity to pts home, [...] Therapist: Halina Wolf PTA 01/12/2018 12:40 Pager: [phone] * Wendi Chou - 01/12/2018 5792 EDT Pt is on the fence regarding dc home with [facility] services, or rehab. Friend of their's is a directorat [facility] with this being the only [...] SpO2 96 %. 01/11 0700 - 01/12 0659 In: 3420 [P.O.:2260; I.V.:500] Out: 2825 [Urine:2825] RLE -REJI in place over entire extremity, left in place -Knee immobilizer -Vascular: Nonpalpable pulses, WWP -Sensory: Light touch sensation intact to superficial peroneal, deep peroneal, tibial nerves distributions. -Motor: 5/5 TA, gastroc, FHL, EHL Na/K/Cl/CO2: 130/4.2/101/23 (01/11 653) BUN/Cr/glu/ALT/AST/amyl/lip: 21/1.19/108/--/--/--/-- (01/11 653) WBC/Hgb/Hct/Plts: 5.97/8.7/24.8/117 (01/12 06) Assessment: Jazz Brothers III is a 77 [...] Dawkins Orthopedic Surgery PGY2 01/12/2018 8:20 p3215 Cosigned by Jr Delgado MD at 01/19/2018 13:56 EDT * Sumeet Carpio DO - 01/11/2018 0837 [...] kg (210 lb), SpO2 98 %. 01/10 700 - 01/11 659 In: 3076.7 [P.O.:2060; I.V.:416.7] Out: 1075 [Urine:1075] RLE -REJI in place over entire extremity, left in place -Knee immobilizer -Vascular: Nonpalpable pulses, WWP -Sensory: Light touch sensation intact to superficial peroneal, deep peroneal, tibial nerves distributions. -Motor: 12/20 TA, gastroc, FHL, EHL Na/K/Cl/CO2: 130/4.4/102/20 (01/11 648) BUN/Cr/glu/ALT/AST/amyl/lip: 23/.17/--/--/--/--/-- (01/11 648) WBC/Hgb/Hct/Plts: 12.19/8.8/25.3/142 (01/11 648) Assessment: [...] on-call resident with any questions or concerns. Cosigned by Jr Delgado MD at 01/19/2018 14:04 EDT * Sumeet Carpio DO - 01/10/2018 1841 EDT Medicine Progress Note Service Date: 01/10/2018 [...] 18:41 * Danielle Sapp, PT - 01/10/2018 1134 EDT The Rehabilitation Therapy Acute Therapies [facility] Physical Therapy Initial Evaluation Note Date of [...] knee jt, init-M97.11XA[ICD-10-CM] The [address]lives at [address] [id number] Pre-Op Diagnosis: Right perioprosthetic femoral shaft fracture [...] step into his home, recommend discharge to [facility] to allow patient time to achieve independence with kimberly to dusk endurance and mobility prior to returning home. Patient would prefer to go to a rehab closer to his home in [facility]. Short-Term Goals: ?? NA Long-Term Goals: 1 [...] provided by physical therapist and/or physical therapist assistant baseball coach when medically appropriate. Frequency: daily for 3-5 [...] Wheelchair Other recommendations: Social Work consult Pager: [phone] DANIELLE SAPP, [place] 01/10/2018 11:35 * Barber Dawkins MD - [...] kg (210 lb), SpO2 97 %. 01/09 07 - 01/10 659 In: 4311.7 [P.O.:480; I.V.:3831.7] Out: 1470 [Urine:1270] RLE -REJI in place over entire extremity, left in place -Knee immobilizer -Vascular: Nonpalpable pulses, WWP -Sensory: Light touch sensation intact to superficial peroneal, deep peroneal, tibial nerves distributions. -Motor: 12/20 TA, gastroc, FHL, EHL Na/K/Cl/CO2: 130/4.4/102/20 (01/11 648) BUN/Cr/glu/ALT/AST/amyl/lip: 23/.17/--/--/--/--/-- (01/11 648) WBC/Hgb/Hct/Plts: 12.19/8.8/25.3/142 (01/11 648) PT/INR/PTT: [...] planning Barber Dawkins MD 8:27 01/10/2018 Pager: [phone] Cosigned by Jr Delgado MD at 01/19/2018 14:15 EDT * Viviane Verduzco CSW - 01/09/2018 1042 EDT attempted to see jazz but he was visitng w/his search director. Will go by later. lise gan hand flesher [phone] * Seth Cortez MD - 01/09/2018 0942 [...] will continue to follow. Pleasepage the hospital education program associate with any further questions. ?? Seth Cortez [...] III : 1940, AGE: 77 y.o. Room: [place] [address] Jazz Brothers III who is listed as Yazidi has received a visit from the Spiritual Care Department on 01/08/2018. Need/Assessment: - Pt is in bed/awake - Pt welcomed visit - Pt came down with broken femur - Pt fell at home - Pt is scheduled for surgery tomorrow Intervention: - Commercial Real Estate Underwriter provided supportive listening presence and encouragement toward pt's procedure tomorrow.Offered Comm,prayer/blessing Outcome: ?? Plan of Action: No Follow up necessary - Needs met Continued Family Support Continued Support from Commercial Real Estate Underwriter following patient Make a Referral to: Continued [...] x Other Chaplain Herbert Price 131 Phone [phone] Spiritual Care is available 24 hours a day. Office hours are 0800 to 1700 Friday through Friday and 0830 to 1630 Friday and Friday. Interfaith and Mandaeism chaplains are available 24 hours a day. For routine consults please call and leave a message with the Spiritual Care Office ([phone]) and patients will be seen within 24 hours. Forall emergent consults page the Yazidi or Interfaith on-call Commercial Real Estate Underwriter through PAS ([phone]). * Viviane Verduzco CSW - 01/08/2018 1157 [...] Friends / neighbors, Spouse / significant other, Worship / mary community Is 10/03 care available? NA - works from home late afternoon into the evening. ADVANCED DIRECTIVES, POA &/or COLST IN PLACE: Healthcare Directive: Yes, patient has advance directive for healthcare treatment DIRECTIVES FOR FINANCES: TRANSPORTATION: Uncertain of d/c plan and transport CULTURAL, RESTORATION and/or LANGUAGE factors affecting health care/discharge planning: Spiritual/Cultural Requests: Prayer Any factors affecting health care/discharge planning?: No Insurance in Place: Yes Medical Insurance: Yes Referred to patient financial services: No [facility] DISCHARGE RISK ASSESSMENT: None of the above [...] independent. COMMUNITY RESOURCES/SUPPORTS: Primary Care Provider: Karo Otero PCP Verified: Yes Specialists: Cardiology Type of Home Health Services: None DME Provider: Pharmacy: No Pharmacies Listed Home Health: Other: POST HOSPITAL TRANSITION PLAN: Rehab vs home depending on progress. Met w/jazz this morning to introduce myself. He was in good spirits, pain well controlled. He is aware of plan for OR tomorrow. He and his live in [place], moved here a couple years ago from [place]. 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 He has good support from friends, zoroastrian & . We talked about plans after OR and he said he was told he will need rehab. I explained that therapies will see him and make recs for d/c plan. He initially said he would like to go the to the rehab in [facility]. I explained AR vs MATTY vs home and we talked about making decisions as he works w/therapies and sees how he is doing. Explained my role and provided my contact info. Will follow LATIA Hernandez 01/08/2018 11:57 * Chasity Rios, PT - 01/08/2018 0656 EDT Rehabilitation Therapies [facility] [place] [facility] Note Date of Service: 01/08/2018 [...] pending Erika Estrada MD 6:15 01/08/2018 Pager: [phone] documented in this encounter H&P Notes * [...] cath was 64%. Ambulatory status: independent PCP: Krao Otero PMH: Angina HTN PSH: Past Surgical History: Procedure Laterality Date ??? CORONARY ANGIOPLASTY WITH STENT PLACEMENT ??? TOTAL KNEE ARTHROPLASTY Bilateral Meds: plavix ASA HCTZ-losartan Metoprolol Nitro Lipitor Temazepam Wellbutrin Allergies: No Known Allergies FHx: No family history on file. SH: The patient lives in [place], [place] with his No tobacco or drug [...] and extends proximally.No significant shortening or comminution. [place] anterior. Patient RLE placed in [place] traction of 10 pounds Assessment: Jazz Brothers [...] and medicine) 3. Will acquire records from [facility] Pre-Op Checklist 1 Consent completed 2 Extremity signed 3 NPO 4 IVF ordered 5 Type and Screen ordered 6 IV access- patient needs 2 peripheral IVs before going to OR. 7 Anticoagulation held- plavix per cardiology 8 Pre-operative antibiotics- ancef ordered d/w: Dr. Marie, Dr. Jose Guadalupe Estrada MD 01/07/2018 Cosigned by Betty Marie MD at 01/08/2018 8:10 EDT documented in this encounter Consult Notes * Barber Craig MD - 01/13/2018 1234 EDT Red Blood Cell Transfusion Reaction-Pathology Patient: Jazz Brothers III Transfusion Initiated (date/time): 01/11/2018 at 1510 Transfusion Terminated (date/time): 01/11/2018 at 1805 Blood Bank Notified (date/time): 01/11/2018 at 1934 Notified By: Lien Suh RN Blood Product Detail: Red Blood Cells Donor/Unit Number: [id number] Amount Transfused: 330 mL Reaction Description: chills/rigors Laboratory Investigation Laboratory workup? No - Per Dr. Diego Zamarripa Pre-transfusion records reviewed? Yes Clerical/flosser errors found? No Post-transfusion blood specimen Serum [...] [facility]) Barber Craig MD 01/13/2018 13:43 Cosigned by John Kuo MD at 01/20/2018 13:03 EDT * Seth Cortez MD - 01/08/2018 0703 [...] Q2HPRN ceFAZolin (ANCEF) syringe 2 g intravenous MANAGER ONLINE TO O.R. cholecalciferol (Vitamin D3) tablet 2,000 [...] will continue to follow. Pleasepage the hospital education program associate with any further questions. Seth Cortez MD 01/08/2018 7:03 * Javan Lozano MD - 01/07/2018 1944 EDT Images from the original note were [...] 11/19/17), HTN, HLD, CKD (baseline Cr per [facility] is 1.5) who presents following a mechanical fall resulting inright femur fracture. Patient reports that following admission at [facility] for UA in early November he has [...] edema ECG: SR Cardiac/Radiology Studies: LHC at [facility] (11/19/17): Echo at [facility]: EF of 65%, posterior and lateral hypokinesis, [...] 11/19/17), HTN, HLD, CKD (baseline Cr per [facility] is 1.5) who presents following a mechanical [...] favor continuation of DAPT to minimize perioperative TN. Patient medically optimized for surgery. - continue ASA, plavix 75mg daily - continue lipitor 80mg daily - continue Toprol XL 12.5mg BID - hold losartan/HCTZ day of procedure Please do not hesitate to call with any questions or concerns. Case discussed with Dr. Maliha Lozano MD Scientific Recruiter Pager # [phone] 01/07/2018 21:07 Cosigned by Rolando Thornton MD at 01/08/2018 11:54 EDT Associated attestation - Rolando Thornton MD - 01/08/2018 1154 EDT Attestation: I saw and evaluated the patient on 01/08/2018. I agree with the findings and plan of care as documented in the resident's/fellow's note. Rolando Thornton MD 01/08/2018 11:54 documented in this encounter OR Notes * OR Surgeon - Mauricoi Dodson MD - 01/09/2018 0000 EDT OPERATIVE [...] status post successful 2-stage revision performed in [place], [place]. He fell while enjoying the view of the [employer] on 01/07/2018. He had immediate pain and deformity about his right knee and was unable to ambulate. He presented to the [facility] emergency room where he was admitted [...] PM / Sumeet Leon MD cn Confirmation: [id number] Dictation ID: [id number] documented in this encounter ED Notes * [...] stents who presents to the ED from [place] with right femur fracture.. The patient reports [...] rhythm rate of 64. ??Intervals with prolonged MI interval of 221 ms, first-degree AV block., [...] and prescriptions to patient. Faxed prescriptions to [facility] pharmacy. Educated patient and spouse, Marina, on Lovenox therapy (hand-out provided), new medications (including Tramadol, Lovenox, bowel medications). Reviewed dressing care and provided extra dressin gs. Re-enforced education on egg-shell touchdown precautions. Called nursing report to [facility]. Response: Patient and spouse verbalized understanding. Left unit with all belongings in wheelchair with patient support. Plan to fern picker prescriptions at pharmacy on way out [...] 01/09/20182013 EDT Anesthesia Post op Note Jazz Lise Brothers III [id number] Anesthesia received: General; Vital Signs: Temp: 35.6 [...] Op Note - Sumeet Leon - 01/09/2018 4070 EDT Brief Post-Op Note Date of Surgery: [...] regular Sumeet Leon MD 01/09/2018 19:08 Pager [phone] * Plan of Care - Eliana Baker RN - 01/09/2018 5024 EDT Problem: Daily Care Plan Goals Goal: [...] off of deck. On bedrest. Currently in [facility] at 10#. Requested pain medication at 1140 [...] see this AM. Implant records requested from [facility]-please call Sumeet Leon when results are received. FAX [phone]: discussed with Viji Scott; please send record [...] pulse. Leg externally rotated Action: Pt oriented education program associate leal use. Placed NPO, IVF infusing. Pain [...] 13:30 EST Office Visit [facility] Ophthalmology - [address] [address] Anjum Miranda MD [address] [facility], [address] [place] [phone] Pending Results Name Type Priority Associated Diagnoses [...] (01/16/2018 11:04 EDT) 01/16/2018 11:0 4 EDT us Scan 2 Brewing Technician PROCEDURE/MINOR SURGICAL OR DERABLES Final Result * TRANSFUSION RECORD - SCANNED (01/16/2018 11:04 EDT) 01/16/2018 11:0 4 EDT us Scan 2 Brewing Technician LAB INFO SERVICE AND SUPPOR T & PHONE RESULT Final Result * (ABNORMAL) ELECTROLYTES (01/13/2018 6:57 EDT) Sodium 130(L) 136 - 145 mEq/L 01/13/2018 7:47 EDT [facility] Potassium 4.6 3.5 - 5.0 mEq/L 01/13/2018 7:47 T [facility] Chloride 100 96 - 110 mEq/L 01/13/2018 7:47 EDT [facility] CO2 26 22 - 32 mEq/L 01/13/2018 7:47 T [facility] Blood specimen (specimen) BLOOD SPECIMEN / Unknown 01/13/2018 6:57 EDT 01/13/2018 7:13 EDT us Barber Dawkins MD CHEMISTRY & BLOOD GAS ORDERABLE S Final Result [facility] [address] [place] [address] * CREATININE (01/13/2018 6:57 EDT) Creatinine 1.02 0.66 - 1.25 mg/dl 01/13/2018 7:47 [facility] GFR, Calculated 70 >60 ml/min/1.7 3m2 01/13/2018 7:47 [facility] Comment: eGFR calculated using CKD-EPI equation for non Americans. Multiply eGFR by 1.16 for Americans. Blood specimen (specimen) BLOOD SPECIMEN / Unknown 01/13/2018 6:57 EDT 01/13/2018 7:13 EDT Barber Dawkins MD CHEMISTRY & BLOOD GAS ORDERABLE S Final Result Performing Organization Address [facility] Co de Phone Number [facility] [address] [place] [address] * BUN (01/13/2018 6:57 EDT) BUN 14 10 - 26 mg/dl 01/13/2018 7:47 [facility] Blood specimen (specimen) BLOOD SPECIMEN / Unknown 01/13/2018 6:57 EDT 01/13/2018 7:13 EDT Barber Dawkins MD CHEMISTRY & BLOOD GAS ORDERABLE S Final Result Performing Organization Address [facility] de Phone Number [facility] [address] [place] [address] * (ABNORMAL) HEMAGRAM AND DIFFERENTIAL (01/13/2018 6:57 EDT) WBC 6.06 4.0 - 10.4 K/cmm 01/13/2018 7:22 [facility] RBC 3.04(L) 4.36 - 5.78 M/cmm 01/13/2018 7:22 [facility] Hemoglobin 9.2(L) 13.8 - 17.3 gm/dl 01/13/2018 7:22 [facility] HCT 26.5(L) 39.5 - 50.2 % 01/13/2018 7:22 [facility] MCV 87 81 - 95 fl 01/13/2018 7:22 [facility] MCH 30.3 27.6 - 33.0 pg 01/13/2018 7:22 [facility] MCHC 34.7 32.8 - 36.4 gm/dl 01/13/2018 7:22 [facility] RDW-CV 13.9 <14.2 % 01/13/2018 7:22 [facility] RDW-SD 44.0 <46.0 fl 01/13/2018 7:22 [facility] PLT 149 141 - 377 K/cmm 01/13/2018 7:22 [facility] MPV 10.1 9.5 - 12.7 fl 01/13/2018 7:22 [facility] % Neutrophils 66.6 % 01/13/2018 7:22 [facility] % Lymphocytes 19.3 % 01/13/2018 7:22 [facility] % Monocytes 9.9 % 01/13/2018 7:22 [facility] % Eosinophils 3.0 % 01/13/2018 7:22 [facility] % Basophils 0.7 % 01/13/2018 7:22 [facility] % Immature Grans 0.5 % 01/13/2018 7:22 [facility] ABS Neutrophils 4.04 2.20 - 8.85 K/cmm 01/13/2018 7:22 [facility] ABS Lymphs 1.17 1.09 - 3.30 K/cmm 01/13/2018 7:22 [facility] ABS Monocytes 0.60 0.1 - 0.8 K/cm 01/13/2018 7:22 [facility] ABS Eosinophils 0.18 0.03 - 0.61 K/cm 01/13/2018 7:22 [facility] ABS Basophils 0.04 0.01 - 0.11 K/cm 01/13/2018 7:22 [facility] ABS Immature Grans 0.03 0 - 0.06 K/cm 01/13/2018 7:22 [facility] Type of Diff: Automated 01/13/2018 7:22 [facility] Blood specimen (specimen) BLOOD SPECIMEN / Unknown 01/13/2018 6:57 EDT 01/13/2018 7:13 EDT Barber Dawkins MD PACKAGES & DNA PROBE ORDERABLES Final Result Performing Organization Address [facility] de Phone Number [facility] [address] [place] [address] * (ABNORMAL) ELECTROLYTES (01/12/2018 9:32 EDT) Sodium 130(L) 136 - 145 mEq/L 01/12/2018 11:03 EDT [facility] Potassium 4.3 3.5 - 5.0 mEq/L 01/12/2018 11:03 T [facility] Chloride 98 96 - 110 mEq/L 01/12/2018 11:03 T [facility] CO2 23 22 - 32 mEq/L 01/12/2018 11:03 EDT [facility] Blood specimen (specimen) BLOOD SPECIMEN / Unknown 01/12/2018 9:32 EDT 01/12/2018 10:08 EDT Barber Dawkins MD CHEMISTRY & BLOOD GAS ORDERABLE S Final Result Performing Organization Address [facility] Co de Phone Number [facility] [address] [place] [address] * CREATININE (01/12/2018 9:32 EDT) Creatinine 1.04 0.66 - 1.25 mg/dl 01/12/2018 11:03 EDT [facility] GFR, Calculated 68 >60 ml/min/1.7 3m2 01/12/2018 11:03 T [facility] Comment: eGFR calculated using CKD-EPI equation for non Americans. Multiply eGFR by 1.16 for Americans. Blood specimen (specimen) BLOOD SPECIMEN / Unknown 01/12/2018 9:32 EDT 01/12/2018 10:08 EDT Barber Dawkins MD CHEMISTRY & BLOOD GAS ORDERABLE S Final Result [facility] [address] [place] [address] * BUN (01/12/2018 9:32 EDT) BUN 14 10 - 26 mg/dl 01/12/2018 11:03 [facility] Blood specimen (specimen) BLOOD SPECIMEN / Unknown 01/12/2018 9:32 EDT 01/12/2018 10:08 EDT Barber Dawkins MD CHEMISTRY & BLOOD GAS ORDERABLE S Final Result Performing Organization Address [facility]/ZIP Co de Phone Number [facility] [address] [place] [address] * (ABNORMAL) HEMAGRAM AND DIFFERENTIAL (01/12/2018 6:32 EDT) WBC 5.97 4.0 - 10.4 K/cmm 01/12/2018 8:13 [facility] RBC 2.90(L) 4.36 - 5.78 M/cmm 01/12/2018 8:13 [facility] Hemoglobin 8.7(L) 13.8 - 17.3 gm/dl 01/12/2018 8:13 [facility] HCT 24.8(L) 39.5 - 50.2 % 01/12/2018 8:13 [facility] MCV 86 81 - 95 fl 01/12/2018 8:13 [facility] MCH 30.0 27.6 - 33.0 pg 01/12/2018 8:13 [facility] MCHC 35.1 32.8 - 36.4 gm/dl 01/12/2018 8:13 [facility] RDW-CV 13.8 <14.2 % 01/12/2018 8:13 [facility] RDW-SD 43.5 <46.0 fl 01/12/2018 8:13 [facility] PLT 117(L) 141 - 377 K/cmm 01/12/2018 8:13 [facility] MPV 11.0 9.5 - 12.7 fl 01/12/2018 8:13 [facility] % Neutrophils 72.1 % 01/12/2018 8:13 [facility] % Lymphocytes 15.2 % 01/12/2018 8:13 [facility] % Monocytes 10.4 % 01/12/2018 8:13 [facility] % Eosinophils 1.5 % 01/12/2018 8:13 [facility] % Basophils 0.5 % 01/12/2018 8:13 [facility] % Immature Grans 0.3 % 01/12/2018 8:13 [facility] ABS Neutrophils 4.30 2.20 - 8.85 [facility] 01/12/2018 8:13 [facility] ABS Lymphs 0.91(L) 1.09 - 3.30 [facility] 01/12/2018 8:13 [facility] ABS Monocytes 0.62 0.1 - 0.8 /[facility] 01/12/2018 8:13 [facility] ABS Eosinophils 0.09 0.03 - 0.61 /[facility] 01/12/2018 8:13 [facility] ABS Basophils 0.03 0.01 - 0.11 /[facility] 01/12/2018 8:13 [facility] ABS Immature Grans 0.02 0 - 0.06 [facility] 01/12/2018 8:13 [facility] Type of Diff: Automated 01/12/2018 8:13 [facility] Blood specimen (specimen) BLOOD SPECIMEN / Unknown 01/12/2018 6:32 EDT 01/12/2018 8:07 EDT us Barber Dawkins MD PACKAGES & DNA PROBE ORDERABLES Final Result [facility] [address] [place] [address] * (ABNORMAL) HEMAGRAM AND DIFFERENTIAL (01/11/2018 20:47 EDT) WBC 8.91 4.0 - 10.4 K/cmm 01/11/2018 23:21 [facility] RBC 3.01(L) 4.36 - 5.78 M/cmm 01/11/2018 23:21 [facility] Hemoglobin 8.9(L) 13.8 - 17.3 gm/dl 01/11/2018 23:21 [facility] HCT 25.9(L) 39.5 - 50.2 % 01/11/2018 23:21 [facility] MCV 86 81 - 95 fl 01/11/2018 23:21 [facility] MCH 29.6 27.6 - 33.0 pg 01/11/2018 23:21 [facility] MCHC 34.4 32.8 - 36.4 gm/dl 01/11/2018 23:21 [facility] RDW-CV 13.8 <14.2 % 01/11/2018 23:21 [facility] RDW-SD 42.9 <46.0 fl 01/11/2018 23:21 [facility] PLT 123(L) 141 - 377 K/cmm 01/11/2018 23:21 [facility] MPV 10.9 9.5 - 12.7 fl 01/11/2018 23:21 [facility] % Neutrophils 74.0 % 01/11/2018 23:21 [facility] % Lymphocytes 15.0 % 01/11/2018 23:21 [facility] % Monocytes 9.8 % 01/11/2018 23:21 [facility] % Eosinophils 0.6 % 01/11/2018 23:21 [facility] % Basophils 0.3 % 01/11/2018 23:21 [facility] % Immature Grans 0.3 % 01/11/2018 23:21 [facility] ABS Neutrophils 6.59 2.20 - 8.85 K/cmm 01/11/2018 23:21 EDT [facility] ABS Lymphs 1.34 1.09 - 3.30 K/[facility] 01/11/2018 23:21 T [facility] ABS Monocytes 0.87(H) 0.1 - 0.8 K/[facility] 01/11/2018 23:21 EDT [facility] ABS Eosinophils 0.05 0.03 - 0.61 K/[facility] 01/11/2018 23:21 T [facility] ABS Basophils 0.03 0.01 - 0.11 K/[facility] 01/11/2018 23:21 T [facility] ABS Immature Grans 0.03 0 - 0.06 K/[facility] 01/11/2018 23:21 T [facility] Type of Diff: Automated 01/11/2018 23:21 [facility] Blood specimen (specimen) BLOOD SPECIMEN / Unknown 01/11/2018 20:47 EDT 01/11/2018 20:56 EDT us Willie Kaur MD PACKAGES & DNA PROBE ORDERABLES Final Result Performing Organization Address City/State/[facility] Co de Phone Number [facility] [address] [place] [address] * TRANSFUSE RED BLOOD CELLS (01/11/2018 18:06 EDT) Blood specimen (specimen) us Willie Kaur MD NURSING TREATMENT - BLOOD ADMIN ISTRATION Final Result * TRANSFUSE RED BLOOD CELLS (01/11/2018 14:28 EDT) Blood specimen (specimen) us Willie Kaur MD NURSING TREATMENT - BLOOD ADMIN ISTRATION Final Result * PREPARE RED BLOOD CELLS (01/11/2018 10:21 EDT) Product Code [id number] [facility] Donor Number [id number] U [facility] Unit ABO [facility] [place] [facility] Unit Rh POS [facility] [place] [facility] Unit Status TR^Transfuse [facility] Product Expiration Date [id number] [facility] Unit Blood Type Code 7300 [facility] Coding System [id number] [facility] 01/11/2018 10:2 1 EDT us Willie Kaur MD BLOOD BANK ORDERABLES Final Res ult Performing Organization Address [facility] de Phone Number [facility] [address] [place], [place] [address] * PREPARE RED BLOOD CELLS (01/11/2018 10:21 EDT) Product Code [id number] [facility] Donor Number [id number] U [facility] Unit ABO B [facility] [place] [facility] Unit Rh POS [facility] Unit Status TR^Transfuse [facility] Product Expiration Date [id number] [facility] Unit Blood Type Code 7300 [facility] Coding System [id number] [facility] Blood specimen (specimen) 01/11/2018 10:21 EDT us Willie Kaur MD BLOOD BANK ORDERABLES Final Res ult Performing Organization Address [facility] de Phone Number [facility] [address] [place], [place] [address] * (ABNORMAL) HEMAGRAM AND DIFFERENTIAL (01/11/2018 9:40 EDT) WBC 8.09 4.0 - 10.4 K/cmm 01/11/2018 10:04 EDT [facility] RBC 2.38(L) 4.36 - 5.78 M/cmm 01/11/2018 10:04 EDT [facility] Hemoglobin 7.2(L) 13.8 - 17.3 gm/dl 01/11/2018 10:04 EDT [facility] HCT 20.6(LL) 39.5 - 50.2 % 01/11/2018 10:04 [facility] MCV 87 81 - 95 fl 01/11/2018 10:04 [facility] MCH 30.3 27.6 - 33.0 pg 01/11/2018 10:04 [facility] MCHC 35.0 32.8 - 36.4 gm/dl 01/11/2018 10:04 [facility] RDW-CV 13.9 <14.2 % 01/11/2018 10:04 [facility] RDW-SD 42.8 <46.0 fl 01/11/2018 10:04 [facility] PLT 105(L) 141 - 377 K/cmm 01/11/2018 10:04 [facility] MPV 10.5 9.5 - 12.7 fl 01/11/2018 10:04 [facility] % Neutrophils 79.8 % 01/11/2018 10:04 [facility] % Lymphocytes 11.4 % 01/11/2018 10:04 [facility] % Monocytes 7.7 % 01/11/2018 10:04 [facility] % Eosinophils 0.5 % 01/11/2018 10:04 [facility] % Basophils 0.2 % 01/11/2018 10:04 [facility] % Immature Grans 0.4 % 01/11/2018 10:04 [facility] ABS Neutrophils 6.46 2.20 - 8.85 K/cmm 01/11/2018 10:04 [facility] ABS Lymphs 0.92(L) 1.09 - 3.30 K/cmm 01/11/2018 10:04 [facility] ABS Monocytes 0.62 0.1 - 0.8 K/cmm 01/11/2018 10:04 [facility] ABS Eosinophils 0.04 0.03 - 0.61 K/cmm 01/11/2018 10:04 [facility] ABS Basophils 0.02 0.01 - 0.11 K/cmm 01/11/2018 10:04 EDT [facility] ABS Immature Grans 0.03 0 - 0.06 K/cmm 01/11/2018 10:04 EDT [facility] Type of Diff: Automated 01/11/2018 10:04 EDT [facility] Blood specimen (specimen) BLOOD SPECIMEN / Unknown 01/11/2018 9:40 EDT 01/11/2018 9:47 EDT us Barber Dawkins MD PACKAGES & DNA PROBE ORDERABLES Final Result Performing Organization Address City/[facility]/ZIP Co de Phone Number [facility] [address] [place] [address] * INPATIENT ADD-ON (01/11/2018 7:40 EDT) Tests to be added CBC, BMP FROM [facility] (01/11) PLEASE 01/11/2018 7:39 EDT [facility] Number for problems [id number] 01/11/2018 8:19 EDT [facility] Accession number [id number] NOTIFIED DR MIRELLA VALENTE LAV TO ADD CBC. 01/11/2018 8:19 T [facility] TOPOGRAPHY UNKNOWN / Unknown 01/11/2018 7:40 EDT 01/11/2018 8:18 EDT us Sumeet Carpio DO HEMATOLOGY & PF4 ORDERABLES Jennifer l Result Performing Organization Address City/[facility]/ZIP Co de Phone Number [facility] [address] [place] [address] * TESTS ADDED BY PHONE (01/11/2018 6:53 EDT) Tests to be added LYT 01/11/2018 10:17 EDT [facility] Who Called BARBER DAWKINS. ADDON CONFUSION SEE JANIE WITH QUESTIONS 01/11/2018 10:17 EDT [facility] Location Code B3 01/11/2018 10:17 EDT [facility] Read Back/Confirme d? YES 01/11/2018 10:17 EDT [facility] TOPOGRAPHY UNKNOWN / Unknown 01/11/2018 6:53 EDT 01/11/2018 8:16 EDT us Sumeet Carpio DO CHEMISTRY & BLOOD GAS ORDERABLES Final Result [facility] [address] [place] [address] * (ABNORMAL) BASIC METABOLIC PANEL (BMP) (01/11/2018 6:53 EDT) Sodium 130(L) 136 - 145 mEq/L 01/11/2018 8:48 EDT [facility] Potassium 4.2 3.5 - 5.0 mEq/L 01/11/2018 8:48 [facility] Chloride 101 96 - 110 mEq/L 01/11/2018 8:48 [facility] CO2 23 22 - 32 mEq/L 01/11/2018 8:48 [facility] BUN 21 10 - 26 mg/dl 01/11/2018 8:48 [facility] Creatinine 1.19 0.66 - 1.25 mg/dl 01/11/2018 8:48 [facility] GFR, Calculated 58(L) >60 ml/min/1.7 3m2 01/11/2018 8:48 [facility] Comment: eGFR calculated using CKD-EPI equation for non Americans. Multiply eGFR by 1.16 for Americans. Calcium 7.5(L) 8.5 - 10.5 mg/dl 01/11/2018 8:48 [facility] Calculated Calcium 8.7 8.5 - 10.5 mg/dl 01/11/2018 8:48 [facility] Glucose, Serum 108(H) 70 - 100 mg/dl 01/11/2018 8:48 [facility] Fasting? Unknown 01/11/2018 8:35 [facility] BLOOD SPECIMEN / Unknown 01/11/2018 6:53 EDT 01/11/2018 8:16 EDT us Sumeet Carpio DO CHEMISTRY & BLOOD GAS ORDERABLES Final Result Performing Organization Address City/[facility]/ZIP Co de Phone Number [facility] [address] [place] [address] * FERRITIN (01/11/2018 6:53 EDT) Pathologist [facility] Ferritin 166 22 - 322 ng/ml 01/12/2018 11:27 EDT [facility] Blood specimen (specimen) BLOOD SPECIMEN / Unknown 01/11/2018 6:53 EDT 01/11/2018 8:16 EDT Sumeet Carpio DO CHEMISTRY & BLOOD GAS ORDERABLES Final Result Performing Organization Address [facility] Co de Phone Number [facility] [address] [place] [address] * (ABNORMAL) IRON (01/11/2018 6:53 EDT) Pathologist [facility] Iron <15(L) 49 - 181 ug/dl 01/11/2018 8:48 EDT [facility] Blood specimen (specimen) BLOOD SPECIMEN / Unknown 01/11/2018 6:53 EDT 01/11/2018 8:16 EDT us Sumeet Carpio DO CHEMISTRY & BLOOD GAS ORDERABLES Final Result Performing Organization Address [facility] Co de Phone Number [facility] [address] [place] [address] * (ABNORMAL) HEMAGRAM AND DIFFERENTIAL (01/10/2018 6:48 EDT) Pathologist [facility] WBC 12.19(H) 4.0 - 10.4 K/cmm 01/10/2018 7:31 EDT [facility] RBC 2.93(L) 4.36 - 5.78 M/cmm 01/10/2018 7:31 T [facility] Hemoglobin 8.8(L) 13.8 - 17.3 gm/dl 01/10/2018 7:31 T [facility] HCT 25.3(L) 39.5 - 50.2 % 01/10/2018 7:31 [facility] MCV 86 81 - 95 fl 01/10/2018 7:31 [facility] MCH 30.0 27.6 - 33.0 pg 01/10/2018 7:31 [facility] MCHC 34.8 32.8 - 36.4 gm/dl 01/10/2018 7:31 [facility] RDW-CV 13.4 <14.2 % 01/10/2018 7:31 [facility] RDW-SD 42.0 <46.0 fl 01/10/2018 7:31 [facility] PLT 142 141 - 377 K/cmm 01/10/2018 7:31 [facility] MPV 10.9 9.5 - 12.7 fl 01/10/2018 7:31 [facility] % Neutrophils 79.9 % 01/10/2018 7:31 [facility] % Lymphocytes 10.5 % 01/10/2018 7:31 [facility] % Monocytes 8.9 % 01/10/2018 7:31 [facility] % Eosinophils 0.0 % 01/10/2018 7:31 [facility] % Basophils 0.2 % 01/10/2018 7:31 [facility] % Immature Grans 0.5 % 01/10/2018 7:31 [facility] ABS Neutrophils 9.75(H) 2.20 - 8.85 K/cmm 01/10/2018 7:31 [facility] ABS Lymphs 1.28 1.09 - 3.30 K/cmm 01/10/2018 7:31 [facility] ABS Monocytes 1.08(H) 0.1 - 0.8 K/cmm 01/10/2018 7:31 [facility] ABS Eosinophils 0.00(L) 0.03 - 0.61 K/cmm 01/10/2018 7:31 [facility] ABS Basophils 0.02 0.01 - 0.11 K/cmm 01/10/2018 7:31 [facility] ABS Immature Grans 0.06 0 - 0.06 K/cmm 01/10/2018 7:31 EDT [facility] Type of Diff: Automated 01/10/2018 7:31 [facility] Blood specimen (specimen) BLOOD SPECIMEN / Unknown 01/10/2018 6:48 EDT 01/10/2018 7:17 EDT Sumeet Leon MD PACKAGES & DNA PROBE ORDE RABLES Final Result Performing Organization Address [facility] de Phone Number [facility] [address] [place] [address] * (ABNORMAL) ELECTROLYTES (01/10/2018 6:48 EDT) Sodium 130(L) 136 - 145 mEq/L 01/10/2018 7:[facility] Potassium 4.4 3.5 - 5.0 mEq/L 01/10/2018 7:46 [facility] Chloride 102 96 - 110 mEq/L 01/10/2018 7:46 [facility] CO2 20(L) 22 - 32 mEq/L 01/10/2018 7:46 [facility] Blood specimen (specimen) BLOOD SPECIMEN / Unknown 01/10/2018 6:48 EDT 01/10/2018 7:17 EDT Sumeet Leon MD CHEMISTRY & BLOOD GAS ORD ERABLES Final Result Performing Organization Address [facility] Co de Phone Number [facility] [address] [place] [address] * (ABNORMAL) CREATININE (01/10/2018 6:48 EDT) Creatinine 1.17 0.66 - 1.25 mg/dl 01/10/2018 7:46 [facility] GFR, Calculated 59(L) >60 ml/min/1.7 3m2 01/10/2018 7:46 [facility] Comment: eGFR calculated using CKD-EPI equation for non Americans. Multiply eGFR by 1.16 for Americans. Blood specimen (specimen) BLOOD SPECIMEN / Unknown 01/10/2018 6:48 EDT 01/10/2018 7:17 EDT us Sumeet Leon MD CHEMISTRY & BLOOD GAS ORD ERABLES Final Result Performing Organization Address City/[facility]/ZIP Co de Phone Number [facility] [address] [place] [address] * BUN (01/10/2018 6:48 EDT) BUN 23 10 - 26 mg/dl 01/10/2018 7:46 EDT [facility] Blood specimen (specimen) BLOOD SPECIMEN / Unknown 01/10/2018 6:48 EDT 01/10/2018 7:17 EDT Sumeet Leon MD CHEMISTRY & BLOOD GAS ORD ERABLES Final Result Performing Organization Address [facility] Co de Phone Number [facility] [address] [place] [address] * FEMUR 2 OR MORE VIEWS (01/09/2018 [...] No unexpected radiopaque foreign body. Mauricio Dodson MD, MSc FRCSC IMG DIAGNOSTIC I MAGING ORDERABLES Final Result * PELVIS 1 OR 2 VIEWS (01/09/2018 [...] is anatomic. Erika Urena MD IMG DIAGNOSTIC IMAGING ORDERA BLES Final Result * ECG REPORT - SCANNED (01/09/2018 6:42 EDT) 01/09/2018 6:42 EDT us Scan 2 Brewing Technician PROCEDURE/MINOR SURGICAL OR DERABLES Final Result * (ABNORMAL) HEMAGRAM AND DIFFERENTIAL (01/09/2018 6:39 EDT) WBC 6.26 4.0 - 10.4 K/cmm 01/09/2018 7:16 [facility] RBC 3.80(L) 4.36 - 5.78 M/cmm 01/09/2018 7:16 [facility] Hemoglobin 11.4(L) 13.8 - 17.3 gm/dl 01/09/2018 7:16 [facility] HCT 32.9(L) 39.5 - 50.2 % 01/09/2018 7:16 [facility] MCV 87 81 - 95 fl 01/09/2018 7:16 [facility] MCH 30.0 27.6 - 33.0 pg 01/09/2018 7:16 [facility] MCHC 34.7 32.8 - 36.4 gm/dl 01/09/2018 7:16 [facility] RDW-CV 13.4 <14.2 % 01/09/2018 7:16 [facility] RDW-SD 41.5 <46.0 fl 01/09/2018 7:16 [facility] PLT 123(L) 141 - 377 K/cmm 01/09/2018 7:16 [facility] MPV 10.6 9.5 - 12.7 fl 01/09/2018 7:16 [facility] % Neutrophils 69.6 % 01/09/2018 7:16 [facility] % Lymphocytes 18.1 % 01/09/2018 7:16 [facility] % Monocytes 10.1 % 01/09/2018 7:16 [facility] % Eosinophils 1.4 % 01/09/2018 7:16 [facility] % Basophils 0.5 % 01/09/2018 7:16 [facility] % Immature Grans 0.3 % 01/09/2018 7:16 [facility] ABS Neutrophils 4.36 2.20 - 8.85 K/cmm 01/09/2018 7:16 [facility] ABS Lymphs 1.13 1.09 - 3.30 K/cmm 01/09/2018 7:16 [facility] ABS Monocytes 0.63 0.1 - 0.8 K/cmm 01/09/2018 7:16 [facility] ABS Eosinophils 0.09 0.03 - 0.61 K/cmm 01/09/2018 7:16 [facility] ABS Basophils 0.03 0.01 - 0.11 K/cmm 01/09/2018 7:16 [facility] ABS Immature Grans 0.02 0 - 0.06 K/cmm 01/09/2018 7:16 [facility] Type of Diff: Automated 01/09/2018 7:16 [facility] Blood specimen (specimen) BLOOD SPECIMEN / Unknown 01/09/2018 6:39 EDT 01/09/2018 7:03 EDT Sumeet Leon MD PACKAGES & DNA PROBE DMITRIY CRUM Final Result [facility] [address] [place] [address] * (ABNORMAL) ELECTROLYTES (01/09/2018 6:39 EDT) Sodium 132(L) 136 - 145 mEq/L 01/09/2018 7:36 [facility] Potassium 4.1 3.5 - 5.0 mEq/L 01/09/2018 7:36 [facility] Chloride 101 96 - 110 mEq/L 01/09/2018 7:36 [facility] CO2 26 22 - 32 mEq/L 01/09/2018 7:36 [facility] Blood specimen (specimen) BLOOD SPECIMEN / Unknown 01/09/2018 6:39 EDT 01/09/2018 7:03 EDT Sumeet Leon MD CHEMISTRY & BLOOD GAS ORD ERABLES Final Result Performing Organization Address [facility] Co de Phone Number [facility] [address] [place] [address] * (ABNORMAL) CREATININE (01/09/2018 6:39 EDT) Creatinine 1.25 0.66 - 1.25 mg/dl 01/09/2018 7:36 EDT [facility] GFR, Calculated 55(L) >60 ml/min/1.7 3m2 01/09/2018 7:36 EDT [facility] Comment: eGFR calculated using CKD-EPI equation for non Americans. Multiply eGFR by 1.16 for Americans. Blood specimen (specimen) BLOOD SPECIMEN / Unknown 01/09/2018 6:39 EDT 01/09/2018 7:03 EDT Sumeet Leon MD CHEMISTRY & BLOOD GAS ORD ERABLES Final Result Performing Organization Address [facility]/ZIP Co de Phone Number [facility] [address] [place] [address] * BUN (01/09/2018 6:39 EDT) BUN 23 10 - 26 mg/dl 01/09/2018 7:36 EDT [facility] Blood specimen (specimen) BLOOD SPECIMEN / Unknown 01/09/2018 6:39 EDT 01/09/2018 7:03 EDT Sumeet Leon MD CHEMISTRY & BLOOD GAS ORD ERABLES Final Result Performing Organization Address [facility]/State/ZIP Co de Phone Number [facility] [address] [place] [address] * PREPARE RED BLOOD CELLS (01/08/2018 11:58 EDT) Product Code [id number] [facility] Donor Number [id number] [facility] Unit ABO O [facility] [place] [facility] Unit Rh POS [facility] [place] [facility] Unit Status RE^Released From Crossmatch [facility] Product Expiration Date [id number] [facility] Unit Blood Type Code 5100 [facility] Coding System [id number] [facility] BLOOD [facility] 01/08/2018 11:5 8 EDT [facility] BLOOD BANK ORDERABLES Fin al Result [facility] [address] [facility] [place] [address] * PREPARE RED BLOOD CELLS (01/08/2018 11:58 EDT) Product Code [id number] [facility] Donor Number [id number] [facility] BLOOD [facility] Unit ABO O [facility] Unit Rh POS [facility] [place] [facility] Unit Status RE^Released From [facility] BLOOD BANK Product Expiration Date [id number] [facility] Unit Blood Type Code 5100 [facility] Coding System [id number] [facility] BLOOD BANK 01/08/2018 11:5 8 EDT [facility] BLOOD BANK ORDERABLES Fin al Result [facility] [address] [facility] [place] [address] * TYPE AND SCREEN (01/08/2018 11:36 EDT) ABO B [facility] Rh Factor Positive [facility] Antibody Screen Negative [facility] Specimen Expires: 01/11/2018 @ 23:59 [facility] 01/08/2018 11:3 6 EDT us Ana Obrien [employer] BLOOD BANK TESTS Final Re sult Performing Organization Address City/[facility]/ZIP Co de Phone Number [facility] [address] [place] [address] * MRSA PCR (01/08/2018 9:15 EDT) Result No Staphylococcus aureus detected by PCR. 01/08/2018 16:28 EDT [facility] Specimen of unknown material (specimen) NASAL ROUTE / Unknown 01/08/2018 9:15 EDT 01/08/2018 11:54 EDT us Erika Urena MD MICROBIOLOGY - GENERAL ORDERA BLES Final Result Performing Organization Address [facility]/ZIP Co de Phone Number [facility] [address] [place] [address] * (ABNORMAL) HEMAGRAM AND DIFFERENTIAL (01/08/2018 7:02 EDT) WBC 6.07 4.0 - 10.4 K/cmm 01/08/2018 8:02 [facility] RBC 3.80(L) 4.36 - 5.78 M/cmm 01/08/2018 8:02 [facility] Hemoglobin 11.2(L) 13.8 - 17.3 gm/dl 01/08/2018 8:02 [facility] HCT 32.4(L) 39.5 - 50.2 % 01/08/2018 8:02 [facility] MCV 85 81 - 95 fl 01/08/2018 8:02 [facility] MCH 29.5 27.6 - 33.0 pg 01/08/2018 8:02 [facility] MCHC 34.6 32.8 - 36.4 gm/dl 01/08/2018 8:02 [facility] RDW-CV 13.5 <14.2 % 01/08/2018 8:02 [facility] RDW-SD 41.8 <46.0 fl 01/08/2018 8:02 [facility] PLT 135(L) 141 - 377 K/cmm 01/08/2018 8:02 [facility] MPV 10.6 9.5 - 12.7 fl 01/08/2018 8:02 [facility] % Neutrophils 65.0 % 01/08/2018 8:02 [facility] % Lymphocytes 24.7 % 01/08/2018 8:02 [facility] % Monocytes 8.9 % 01/08/2018 8:02 [facility] % Eosinophils 0.8 % 01/08/2018 8:02 [facility] % Basophils 0.3 % 01/08/2018 8:02 [facility] % Immature Grans 0.3 % 01/08/2018 8:02 [facility] ABS Neutrophils 3.94 2.20 - 8.85 K/cmm 01/08/2018 8:02 [facility] ABS Lymphs 1.50 1.09 - 3.30 K/cmm 01/08/2018 8:02 [facility] ABS Monocytes 0.54 0.1 - 0.8 K/cmm 01/08/2018 8:02 [facility] ABS Eosinophils 0.05 0.03 - 0.61 K/cmm 01/08/2018 8:02 [facility] ABS Basophils 0.02 0.01 - 0.11 K/cmm 01/08/2018 8:02 [facility] ABS Immature Grans 0.02 0 - 0.06 K/cmm 01/08/2018 8:02 [facility] Type of Diff: Automated 01/08/2018 8:02 [facility] Blood specimen (specimen) BLOOD SPECIMEN / Unknown 01/08/2018 7:02 EDT 01/08/2018 7:39 EDT us Sumeet Leon MD PACKAGES & DNA PROBE DMITRIY CRUM Final Result [facility] [address] [place] [address] * (ABNORMAL) ELECTROLYTES (01/08/2018 7:02 EDT) Sodium 131(L) 136 - 145 mEq/L 01/08/2018 8:04 EDT [facility] Potassium 4.1 3.5 - 5.0 mEq/L 01/08/2018 8:04 EDT [facility] Chloride 101 96 - 110 mEq/L 01/08/2018 8:04 EDT [facility] CO2 24 22 - 32 mEq/L 01/08/2018 8:04 EDT [facility] Blood specimen (specimen) BLOOD SPECIMEN / Unknown 01/08/2018 7:02 EDT 01/08/2018 7:39 EDT Sumeet Leon MD CHEMISTRY & BLOOD GAS ORD ERABLES Final Result Performing Organization Address City/[facility]/ZIP Co de Phone Number [facility] [address] [place] [address] * (ABNORMAL) CREATININE (01/08/2018 7:02 EDT) Creatinine 1.31(H) 0.66 - 1.25 mg/dl 01/08/2018 8:04 T [facility] GFR, Calculated 52(L) >60 ml/min/1.7 3m2 01/08/2018 8:04 T [facility] Comment: eGFR calculated using CKD-EPI equation for non Americans. Multiply eGFR by 1.16 for Americans. Blood specimen (specimen) BLOOD SPECIMEN / Unknown 01/08/2018 7:02 EDT 01/08/2018 7:39 EDT us Sumeet Leon MD CHEMISTRY & BLOOD GAS ORD ERABLES Final Result [facility] [address] [place] [address] * (ABNORMAL) BUN (01/08/2018 7:02 EDT) BUN 29(H) 10 - 26 mg/dl 01/08/2018 8:04 EDT [facility] Blood specimen (specimen) BLOOD SPECIMEN / Unknown 01/08/2018 7:02 EDT 01/08/2018 7:39 EDT us Sumeet Leon MD CHEMISTRY & BLOOD GAS ORD ERABLES Final Result Performing Organization Address [facility] de Phone Number [facility] [address] [place] [address] * HEMOGLOBIN A1C (01/08/2018 7:02 EDT) Hemoglobin A1C 5.4 % 01/08/2018 9:16 EDT [facility] Comment: Reference Range: <5.7% Normal 5.7-6.4% Prediabetes =>6.5% Diagnostic for diabetes (if confirmed) Goals for glycemic control in diabetes ADA 2017 For non adults with diabetes: ?? Target <7.5% For children and adolescents with type 1 diabetes: ?? Target <7.0% More or less stringent targets may be appropriate for individual patients. Est Avg Glucose 108 mg/dl 8 9:16 EDT [facility] Comment: eAG represents the A1c result expressed as average glucose in mg/dl. Blood specimen (specimen) BLOOD SPECIMEN / Unknown 01/08/2018 7:02 EDT 01/08/2018 7:39 EDT us Erika Urena MD CHEMISTRY & BLOOD GAS ORDERAB LES Final Result Performing Organization Address [facility] Co de Phone Number [facility] [address] [place] [id number] * CT FEMUR WO CONTRAST (01/08/2018 6:17 [...] raises concern for loosening. Please correlate accordingly. us Jr Shi MD IMG CT ORDERABLES Final R esult * FEMUR 2 OR MORE VIEWS (01/07/2018 [...] foreshortening of the fracture fragment is stable. us Erika Urena MD IMG DIAGNOSTIC IMAGING ORDERA BLES Final Result * EKG 12-LEAD (01/07/2018 19:27 EDT) 01/07/2018 19:2 7 EDT Narrative [facility] EKG - 01/09/2018 6:37 EDT ?The Emergency ? Test Date: ?2018-01-07 Pat Name: ? JAZZ BROTHERS ?Department: ?? ED ? Room: ? AC03 Gender: ? Male ? Ice Skater: ?? [id number] : ?1940 ? Requested By: BOOKER LICEA I Order Number: [id number] ? Reading MD: ?? VINAYAK GROVES MD ? Measurements Intervals ?[place] ? Rate: ? 64 ? P: ?-1 MI: ? 221 ?QRS: ?-2 QRSD: ? 85 [...] Note Vinayak Groves MD - 01/09/2018 The Emergency Test Date: 2018-01-07 Pat Name: JAZZ BROTHERS Department: ED Room: [facility] Gender: Male Ice Skater: [id number] : 1940 Requested By: BOOKER LICEA I Order Number: [id number] Reading MD: VINAYAK GROVES MD Measurements Intervals [place] Rate: 64 P: -1 MI: 221 QRS: -2 QRSD: 85 T: 37 QT: 417 QTc: 433 Interpretive Statements SINUS RHYTHM WITH FIRST DEGREE AV BLOCK OTHERWISE NORMAL EKG. No previous ECG available for comparison I reviewed the tracing and have either agreed or edited the findings inthis report. Electronically Signed On 01-09-2018 6:37:13 EDT by VINAYAK NEVAREZ. us Vinayak Melo MD CARDIAC ECG ORDERABLES Final Result [facility] EKG * PTT (01/07/2018 19:21 EDT) PTT 30 26 - 37 secs 01/07/2018 19:54 EDT [facility] Blood specimen (specimen) BLOOD SPECIMEN / Unknown 01/07/2018 19:21 EDT 01/07/2018 19:30 EDT us Vinayak Melo MD HEMATOLOGY & PF4 ORDERABLES Final Result [facility] [address] [place] [address] * PROTIME (01/07/2018 19:21 EDT) Pro Time 12.1 10.3 - 13.4 secs 01/07/2018 19:54 [facility] Comment:NOTE NEW REFERENCE Laura ANDERSON OF SEP 18 2017 I.N.R. 1.0 0.9 - 1.1 Ratio 01/07/2018 19:54 [facility] Comment: Moderate Intensity Coumadin INR = 2.0-3.0 Adjustments in anticoagulant therapy dose should be based upon the INR and NOT the Pro Time. Blood specimen (specimen) BLOOD SPECIMEN / Unknown 01/07/2018 19:21 EDT 01/07/2018 19:30 EDT Vinayak Melo MD HEMATOLOGY & PF4 ORDERABLES Final Result [facility] [address] [place] [address] * (ABNORMAL) BASIC METABOLIC PANEL (BMP) (01/07/2018 19:21 EDT) Sodium 136 136 - 145 mEq/L 01/07/2018 20:03 [facility] Potassium 3.7 3.5 - 5.0 mEq/L 01/07/2018 20:03 [facility] Chloride 109 96 - 110 mEq/L 01/07/2018 20:03 [facility] CO2 22 22 - 32 mEq/L 01/07/2018 20:03 [facility] BUN 25 10 - 26 mg/dl 01/07/2018 20:03 [facility] Creatinine 1.06 0.66 - 1.25 mg/dl 01/07/2018 20:03 [facility] GFR, Calculated 67 >60 ml/min/1.7 3m2 01/07/2018 20:03 [facility] Comment: eGFR calculated using CKD-EPI equation for non Americans. Multiply eGFR by 1.16 for Americans. Calcium 7.3(L) 8.5 - 10.5 mg/dl 01/07/2018 20:03 [facility] Calculated Calcium 8.3(L) 8.5 - 10.5 mg/dl 01/07/2018 20:03 [facility] Glucose, Serum 73 70 - 100 mg/dl 01/07/2018 20:03 [facility] Fasting? Unknown 01/07/2018 20:03 [facility] Blood specimen (specimen) BLOOD SPECIMEN / Unknown 01/07/2018 19:21 EDT 01/07/2018 19:30 EDT us Vinayak Melo MD CHEMISTRY & BLOOD GAS ORDERA BLES Final Result [facility] [address] [place] [address] * (ABNORMAL) HEMAGRAM AND DIFFERENTIAL (01/07/2018 19:21 EDT) WBC 6.87 4.0 - 10.4 K/cmm 01/07/2018 19:42 [facility] RBC 3.62(L) 4.36 - 5.78 M/cmm 01/07/2018 19:42 [facility] Hemoglobin 10.7(L) 13.8 - 17.3 gm/dl 01/07/2018 19:42 [facility] HCT 31.1(L) 39.5 - 50.2 % 01/07/2018 19:42 [facility] MCV 86 81 - 95 fl 01/07/2018 19:42 [facility] MCH 29.6 27.6 - 33.0 pg 01/07/2018 19:42 [facility] MCHC 34.4 32.8 - 36.4 gm/dl 01/07/2018 19:42 [facility] RDW-CV 13.5 <14.2 % 01/07/2018 19:42 [facility] RDW-SD 42.7 <46.0 fl 01/07/2018 19:42 [facility] PLT 124(L) 141 - 377 K/cmm 01/07/2018 19:42 [facility] MPV 10.3 9.5 - 12.7 fl 01/07/2018 19:42 [facility] % Neutrophils 73.4 % 01/07/2018 19:42 [facility] % Lymphocytes 18.0 % 01/07/2018 19:42 [facility] % Monocytes 7.0 % 01/07/2018 19:42 [facility] % Eosinophils 0.7 % 01/07/2018 19:42 [facility] % Basophils 0.6 % 01/07/2018 19:42 [facility] % Immature Grans 0.3 % 01/07/2018 19:42 [facility] ABS Neutrophils 5.04 2.20 - 8.85 K/cmm 01/07/2018 19:42 [facility] ABS Lymphs 1.24 1.09 - 3.30 K/cmm 01/07/2018 19:42 [facility] ABS Monocytes 0.48 0.1 - 0.8 K/cmm 01/07/2018 19:42 [facility] ABS Eosinophils 0.05 0.03 - 0.61 K/cmm 01/07/2018 19:42 [facility] ABS Basophils 0.04 0.01 - 0.11 K/cmm 01/07/2018 19:42 [facility] ABS Immature Grans 0.02 0 - 0.06 K/cmm 01/07/2018 19:42 [facility] Type of Diff: Automated 01/07/2018 19:42 [facility] Blood specimen (specimen) BLOOD SPECIMEN / Unknown 01/07/2018 19:21 EDT 01/07/2018 19:30 EDT us Vinayak Melo MD PACKAGES & DNA PROBE ORDERAB LES Final Result [facility] [address] [place] [address] documented in this encounter Visit Diagnoses Diagnosis 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 Latricia-prosthetic fracture around prosthetic joint 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, initial encounter 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, unspecified vessel or lesion type ([facility]) Hypertension, unspecified type Hyperlipidemia, unspecified hyperlipidemia type [...] on 01/10/18 at 0000, Last dose on 01/11/18 at 0000, Routine Given 01/10/2018 23:18 EDT 2,000 mg Given 01/10/2018 16:33 EDT 2,000 mg Given 01/10/2018 8:16 EDT 2,000 mg ceFAZolin (ANCEF) syringe 2 g 2 g, intravenous, Administer over 10 Minutes, MANAGER ONLINE TO O.R., 1 dose, First dose on [...] mg, intravenous, NOW X1, 1 dose, On 01/11/18 at 2045, STAT Given 01/11/2018 20:32 EDT [...] CONTINUOUS, Starting on Fri01/09/18 at 2030, Until 01/10/18 at 2014, Routine Restarted 01/10/2018 16:33 EDT [...] may reflect changes made after this encounter. nitroGLYCERIN (NITROSTAT) 0.[address] [...] Take 75 mg by mouth daily. 08/06/2019 losartan-hydrochl orothiazide (HYZAAR) 100-25 mg per tablet Take 1 [...] Nilda 01/08/18 at 0900, Until Discontinued, Routine 929 (Given - Provider: Lien Suh RN) 09 (Given - Provider: Betty Frances) 0907 (Given [...] Nilda 01/08/18 at 1100, Until Discontinued, Routine 30 (Given - Provider: Lien Suh RN)2031 (Given - Provider: Berta Bartlett RN) 09 (Given - Provider: Betty Frances)2055 (Given - Provider: Griselda Simeon RN) 0907 (Given - Provider: Lien Suh RN) cholecalciferol (Vitamin D3) tablet 2,000 Units 2,000 Units, oral, DAILY, First dose on Nilda 01/08/18 at 0900, Until Discontinued, Routine 0934 (Not [...] 2045, STAT 2031 (Given - Provider: Berta Bartlett RN) docusate sodium (COLACE) capsule 200 mg 200 [...] 0907 (Given - Provider: Lien Suh RN) Multivitamins with Minerals tablet 1 Tab 1 [...] met)2055 (Given - Provider: Griselda Simeon RN) 09 (Given - Provider: Lien Suh RN) sodium chloride 0.9 % BOLUS 500 mL (COMPLETED) 500 mL, intravenous, NOW X1, 1 dose, On Fri01/11/18 at 2045, STAT 2032 (New Bag - Provider: Berta Bartlett RN) zinc sulfate (ZINCATE) capsule 220 mg 220 mg, oral, DAILY, First dose on Fri01/08/18 at 0900, Until Discontinued, Routine 0921 (Not [...] Routine 1930 (See Alternative - Provider: Berta Bartlett RN) ondansetron (ZOFRAN-ODT) disintegrating tablet 4 mg(Linked Group 2) 4 mg, oral, EVERY 6 HOURS PRN, Starting on Fri01/07/18 at 2128, Until Fri01/13/18 at 1436, Nausea, Routine 1929 (Given - Provider: Berta Bartlett, MANAN) temazepam (RESTORIL) capsule 15 mg 15 mg, oral, AT BEDTIME PRN, Starting on Fri01/07/18 at 2128, Until Fri01/13/18 at 1436, Sleep, Routine 2116 (Given - Provider: Berta Bartlett, MANAN) 2122 (Given - Provider: Griselda Simeon RN) [...] rectal, EVERY 6 HOURS, First dose on Nilda 01/08/18 at 0000, Until Discontinued, Routine Group 2: ondansetron (ZOFRAN-ODT) disintegrating tablet 4 mgJump to med 4 mg, oral, EVERY 6 HOURS PRN, Starting on Fri01/07/18 at 2128, Until Fri01/13/18 at 1436, Nausea, Routine Or ondansetron (PF) (ZOFRAN) injection 4 mgJump to med 4 mg, intravenous, EVERY 6 HOURS PRN, Starting on Fri01/07/18 at 2128, Until Fri01/13/18 at 1436, Nausea, Routine documented in this encounter Orders Medications Ordered That Blanye ht Not Have Been Administered Count Last [...] 01/07/2018 documented in this encounter Care Teams Dye Range Operator Relationship Specialty Start Date End Date Karo Otero MD [address] [place] [address] PCP - General 01/07/18 04/06/23 documented as of this encounter
[2024-06-30 12:45] LABS: PTT Activated 70.6 sec (23.6-32.8)
[2024-06-30 12:54] LABS: ALT 17 U/L (16-63); AST 24 U/L (15-37); Albumin 2.6 g/dL (3.4-5.0); Alkaline Phosphatase 128 U/L (46-116); BUN 26 mg/dL (7-18); Bilirubin, Total 0.57 mg/dL (0.2-1.0); Calcium 8.4 mg/dL (8.5-10.1); Chloride 104 mmol/L (98-107); Glucose 110 mg/dL (74-106); NT-proBNP 5478 pg/mL (<300); Potassium 4.7 mmol/L (3.5-5.1); Prothrombin Time 45.9 sec (9.1-11.1); Sodium 138 mmol/L (136-145); TSH (W/Ref FT4) 5.82 uIU/mL (0.36-3.74); Total Protein 6.5 g/dL (6.4-8.2); Troponin I 15 ng/L (<or=76)
[2024-06-30 13:11] LABS: FREE T4 1.07 ng/dL (0.76-1.46)
[2024-06-30 13:42] LABS: Troponin I 10 ng/L (<or=76)
[2024-06-30 14:15] LABS: INR 5.3 (0.9-1.1)
== END 2024-06-30 14:16 | disposition home or self-care (01) ==
PROVIDERS: Emergency Provider Student in an Organized Health Care Education/Training Program; PCP Family Medicine
DX: I48.91 Unspecified atrial fibrillation (principal); E86.0 Dehydration; R79.1 Abnormal coagulation profile; I12.9 Hypertensive chronic kidney disease with stage 1 through stage 4 chronic kidney disease, or unspecified chronic kidney disease; N18.30 Chronic kidney disease, stage 3 unspecified; E78.5 Hyperlipidemia, unspecified; I25.10 Atherosclerotic heart disease of native coronary artery without angina pectoris; Z79.01 Long term (current) use of anticoagulants; Z95.5 Presence of coronary angioplasty implant and graft; Z86.73 Personal history of transient ischemic attack (TIA), and cerebral infarction without residual deficits; Z87.891 Personal history of nicotine dependence
CPT/HCPCS: 36415; 80053; 93005; 99285; 71045; 83880; 84439; 84443; 84484; 85025; 85610; 85730; 93010; 99284

== ENCOUNTER 2024-07-06 13:39 | Outpatient (REF) | payer MEDICARE, SELFPAY ==
--- OUTSIDE RECORDS SUMMARY | 2024-07-06 14:01 | XMS_ITS ---
Author Organization Unknown Address [address] [place] [address] [phone] Phone Care Team Providers Care Copper Miner Name Role Phone CRAIG Randle Attending Unavailable [...] Code Syst em Smoking History Former smoker 08/18/19951856 5827000 SNOMED CT Sex Male Medications Medication Start Date End Date Route Frequency Dose Code Code System Medication Instructions Home Meds Androderm 4MG/24HR Transdermal Patch, Extended Release 09/25/2021 Unknown TRANSDERMAL BEDTIME 1 TRANSDERMAL PATCH 8525249 RxNorm APPLY 1 TRANSDERMAL PATCH TRANSDERMAL BEDTIME Aspir 81 81MG Oral Tablet, Enteric Coated 09/25/2021 Unknown ORAL DAILY 81 MILLIGRAMS RxNorm TAKE 81 MILLIGRAMS ORAL DAILY Atorvastatin Calcium 80MG Oral Tablet 09/25/2021 Unknown ORAL BEDTIME 80 MILLIGRAMS 442990 RxNorm TAKE 80 MILLIGRAMS ORAL BEDTIME Calcium 600 MG Oral Tablet 09/25/2021 Unknown ORAL DAILY 600 MG 404012 RxNorm TAKE 600 MG ORAL DAILY Temazepam 15MG Oral Capsule 09/25/2021 Unknown ORAL BEDTIME 15 MILLIGRAMS 686462 RxNorm TAKE 15 MILLIGRAMS ORAL BEDTIME Valsartan 160MG Oral Tablet 09/25/2021 09/25/19 22 ORAL DAILY 160 MILLIGRAMS 430094 RxNorm TAKE 160 MILLIGRAMS ORAL DAILY Vitamin D 1000IU Oral Tablet 09/25/2021 Unknown ORAL DAILY 1000 INTERNATION[place] UNITS 255039 RxNorm TAKE 1000 INTERNATIONA L UNITS ORAL DAILY buPROPion Hydrochlorid e SR 150MG Oral Tablet, Extended Release, 12 HR 09/25/2021 Unknown ORAL TWICE A DAY 150 MILLIGRAMS 4578028 RxNorm TAKE 150 MILLIGRAMS ORAL TWICE A DAY Valsartan 160MG Oral Tablet 09/25/2021 09/26/19 22 ORAL DAILY 160 MILLIGRAMS 407231 RxNorm TAKE 160 MILLIGRAMS ORAL DAILY Valsartan 160MG Oral Tablet 09/26/2021 Unknown ORAL DAILY 160 MILLIGRAMS 321631 RxNorm TAKE 1 TABLET BY MOUTH DAILY [...] arthrodesi s, deltoid ligament reconstruc tion 09/17 4074515 9 01/15/2026 Arthre x(R) AR-1319 FT Bone matrix implant, synthetic, non-antimi crobial 0110 8594 7700 2140 1121 1220 1723 0430 1017 2247 8 Active FDA left foot triple arthrodesi s, poss deltoid ligament reconsttru ction 09/17 [id number] 08/06/2021 12/15/2022 AUGMEN T(R) Inject able [id number] 10 +M53 6276 1501 51/$ $526 2702 0524 9120 3F Active FDA left foot triple arthrodesi s, possible deltoid ligament reconstruc tion 09/17 [id number] 05/14/2026 Cancel lous Chips 4-9.5m m 15 cc Allergies and Adverse Reactions Allergy Substance Reaction Severity Start Date Concern Status Co de Code System OXYCODONE Nausea (SNOMED-CT: 575075410) Mild Active 7804 RxNorm Plan of Treatment PRE-OP COVID-19 TESTING 09/14/2021 MRI LOWER EXT W/O CONTRAST 07/17/2021 Encounters Encounter Diagnosis Start Date Code Code Sys tem 07/24/2021 [id number] SNOMED-CT Personal Care Team Section Performer Name Performer Role Active Date Inactive Da te
--- OUTSIDE RECORDS SUMMARY | 2024-07-06 14:01 | XMS_ITS ---
Author Organization Unknown Address [address] [place] [address] [phone] Phone Care Team Providers Care Finished Goods Stock Clerk Name Role Phone CRAIG Randle Attending Unavailable ADOLFO Randle Primary Unavailable Immunization Immunization Date Status Additional Notes Code Code System COVID-19, mRNA, LNP-S, PF, 1 00 mcg/0.5mL dose or 50 mcg/0.25mL dose 09/19/2020 Completed 207 CVX COVID-19, mRNA, LNP-S, PF, 1 00 mcg/0.5mL dose or 50 mcg/0.25mL dose 10/17/2020 Completed 207 CVX Results BASIC METABOLIC PANEL (BMP) - Collect Date/Time: 09/24/2021 09:17 [facility] ID: [id number] [address] [place] [address], [address] LOINC: 94946-4 Test Value Unit Reference Range Code Code [...] H=34 2028-9 LOINC ANION GAP 6.1 mmol/L 50775-1 LOINC CALCIUM SERUM 8.5 mg/dL L=8.2 H=10.2 78872-0 LOINC AGE 80 years eGFR (non-Afr.Amer.) 45 mL/min 07003-5 LOINC eGFR (Afr-Belizean) 54 mL/min 82374-2 [facility] BASIC METABOLIC PANEL (BMP) - Collect Date/Time: 09/23/2021 06:05 [facility] ID: [id number] [address] [place], [place], [address] LOINC: 15644-9 Test Value Unit Reference Range Code Code [...] H=34 2028-9 LOINC ANION GAP 7.5 mmol/L 29825-1 LOINC CALCIUM SERUM 8.4 mg/dL L=8.2 H=10.2 52805-9 LOINC AGE 80 years eGFR (non-Afr.Amer.) 45 mL/min 67665-9 LOINC eGFR (Afr-Belizean) 55 mL/min 30489-7 [facility] BASIC METABOLIC PANEL (BMP) - Collect Date/Time: 09/22/2021 06:15 [facility] ID: [id number] [address] [place], [place], [address] LOINC: 47853-9 Test Value Unit Reference Range Code Code [...] H=34 2028-9 LOINC ANION GAP 10.9 mmol/L 33711-1 LOINC CALCIUM SERUM 8.2 mg/dL L=8.2 H=10.2 67018-1 LOINC AGE 80 years eGFR (non-Afr.Amer.) 38 mL/min 97833-6 LOINC eGFR (Afr-Belizean) 46 mL/min 69844-5 [facility] Social History Type Status Start Date End Date Code Code Syst em Smoking History Former smoker 08/18/19950355 1208956 SNOMED CT Sex Male Vital Signs Vital Sign Value Unit Aiken Value Aiken Unit Date/Time Recent/Initial? Code Code System Body Mass Index 28.98 kg/m2 09/24/2021 12:12 Initial 15521 -5 [facility] Systolic Blood Pressure 139 mm[Hg] 09/25/2021 07:30 Most Recent 8480- 6 [facility] Diastolic Blood Pressure 80 mm[Hg] 09/25/2021 07:30 Most Recent 8462- 4 [facility] Systolic Blood Pressure 127 mm[Hg] 09/21/2021 19:58 Initial 8480- 6 [facility] Diastolic Blood Pressure 76 mm[Hg] 09/21/2021 19:58 Initial 8462- 4 [facility] Body Surface Area 2.22 m2 09/24/2021 12:12 Initial 3140- 1 INC Height 182.880 0 cm 72.00 in 09/24/2021 12:12 Initial 8302- 2 INC O2 Saturation 95 % 2021 07:30 Most Recent 13222 -5 [facility] O2 Saturation 92 % 2021 19:58 Initial 35584 -5 [facility] Fraction of Inspired Oxygen 21 % 09/21/2021 19:58 Initial 3150- 0 LOINC Pulse 65.0 /min 09/25/2021 07:30 Most Recent 8867- 4 [facility] Pulse 77.0 /min 09/21/2021 19:58 Initial 8867- 4 LOINC Respiration 16 /min 02/08/20 22 07:30 Most Recent 9279- 1 LOINC Respiration 18 /min 09/21/19 19:58 Initial 9279- 1 LOINC Temperature 36.4 Kalani 97.5 F 09/25/19 22 07:30 Most Recent 8310- 5 LOINC Temperature 36.7 Kalani 98.1 F 09/21/19 19:58 Initial 8310- 5 LOINC Weight 96.91 kg 213.65 lbs 09/24/2021 12:12 Initial 85270 -7 [facility] Medications Medication Start Date End Date Route Frequency Dose Code Code System Medication Instructions Home Meds Androderm 4MG/24HR Transdermal Patch, Extended Release 09/25/2021 Unknown TRANSDERMAL BEDTIME 1 TRANSDERMAL PATCH 6986534 RxNorm APPLY 1 TRANSDERMAL PATCH TRANSDERMAL BEDTIME Aspir 81 81MG Oral Tablet, Enteric Coated 09/25/2021 Unknown ORAL DAILY 81 MILLIGRAMS RxNorm TAKE 81 MILLIGRAMS ORAL DAILY Atorvastatin Calcium 80MG Oral Tablet 09/25/2021 Unknown ORAL BEDTIME 80 MILLIGRAMS 694446 RxNorm TAKE 80 MILLIGRAMS ORAL BEDTIME Calcium 600 MG Oral Tablet 09/25/2021 Unknown ORAL DAILY 600 MG 409708 RxNorm TAKE 600 MG ORAL DAILY Temazepam 15MG Oral Capsule 09/25/2021 Unknown ORAL BEDTIME 15 MILLIGRAMS 257861 RxNorm TAKE 15 MILLIGRAMS ORAL BEDTIME Valsartan 160MG Oral Tablet 09/25/2021 09/25/19 22 ORAL DAILY 160 MILLIGRAMS 842353 RxNorm TAKE 160 MILLIGRAMS ORAL DAILY Vitamin D 1000IU Oral Tablet 09/25/2021 Unknown ORAL DAILY 1000 INTERNATION[place] UNITS 19930117 RxNorm TAKE 1000 INTERNATIONA L UNITS ORAL DAILY buPROPion Hydrochlorid e SR 150MG Oral Tablet, Extended Release, 12 HR 09/25/2021 Unknown ORAL TWICE A DAY 150 MILLIGRAMS 7394972 RxNorm TAKE 150 MILLIGRAMS ORAL TWICE A DAY Valsartan 160MG Oral Tablet 09/25/2021 09/26/19 22 ORAL DAILY 160 MILLIGRAMS 794022 RxNorm TAKE 160 MILLIGRAMS ORAL DAILY Valsartan 160MG Oral Tablet 09/26/2021 Unknown ORAL DAILY 160 MILLIGRAMS 893293 RxNorm TAKE 1 TABLET BY MOUTH DAILY [...] arthrodesi s, deltoid ligament reconstruc tion 09/17 2852663 9 01/15/2026 Arthre x(R) AR-1319 FT Bone matrix implant, synthetic, non-antimi crobial 0110 8594 7700 2140 1121 1220 1723 0430 1017 2247 8 Active FDA left foot triple arthrodesi s, poss deltoid ligament reconsttru ction 09/17 [id number] 08/06/2021 12/15/2022 AUGMEN T(R) Inject able [id number] 10 +M53 6276 1501 51/$ $526 2702 0524 9120 3F Active FDA left foot triple arthrodesi s, possible deltoid ligament reconstruc tion 09/17 4142710 203F 05/14/2026 Cancel lous Chips 4-9.5m m 15 cc Allergies and Adverse Reactions Allergy Substance Reaction Severity Start Date Concern Status Co de Code System OXYCODONE Nausea (SNOMED-CT: 520036188) Mild Active 7804 RxNorm Plan of Treatment [...]
--- OUTSIDE RECORDS SUMMARY | 2024-07-06 14:02 | XMS_ITS ---
Author Organization Unknown Address [address] [place] [address] [phone] Phone Care Team Providers Care Heel Seam Rubber Name Role Phone CRAIG Randle Attending Unavailable ADOLFO Randle Primary Unavailable Immunization Immunization Date Status Additional Notes Code Code System COVID-19, mRNA, LNP-S, PF, 1 00 mcg/0.5mL dose or 50 mcg/0.25mL dose 09/19/2020 Completed 207 CVX COVID-19, mRNA, LNP-S, PF, 1 00 mcg/0.5mL dose or 50 mcg/0.25mL dose 10/17/2020 Completed 207 CVX Results [facility] ect Date/Time: 09/14/2021 09:51 [facility] ID: [id number] [address] [place] [address], [id number] LOINC: 03717-0 Test Value Unit Reference Range Code Code System Flag Tier- PRE-OP 98992-7 LOINC SARS COV2 RNA: NEGATIVE REFERENCE RANGE: NEGAT 65967-2 L OINC Social History Type Status Start Date End Date Code Code Syst em Smoking History Former smoker 08/18/19959283 4265879 SNOMED CT Sex Male Medications Medication Start Date End Date Route Frequency Dose Code Code System Medication Instructions Home Meds Androderm 4MG/24HR Transdermal Patch, Extended Release 09/25/2021 Unknown TRANSDERMAL BEDTIME 1 TRANSDERMAL PATCH 5868837 RxNorm APPLY 1 TRANSDERMAL PATCH TRANSDERMAL BEDTIME Aspir 81 81MG Oral Tablet, Enteric Coated 09/25/2021 Unknown ORAL DAILY 81 MILLIGRAMS RxNorm TAKE 81 MILLIGRAMS ORAL DAILY Atorvastatin Calcium 80MG Oral Tablet 09/25/2021 Unknown ORAL BEDTIME 80 MILLIGRAMS 257575 RxNorm TAKE 80 MILLIGRAMS ORAL BEDTIME Calcium 600 MG Oral Tablet 09/25/2021 Unknown ORAL DAILY 600 MG 000963 RxNorm TAKE 600 MG ORAL DAILY Temazepam 15MG Oral Capsule 09/25/2021 Unknown ORAL BEDTIME 15 MILLIGRAMS 604558 RxNorm TAKE 15 MILLIGRAMS ORAL BEDTIME Valsartan 160MG Oral Tablet 09/25/2021 09/25/19 22 ORAL DAILY 160 MILLIGRAMS 982752 RxNorm TAKE 160 MILLIGRAMS ORAL DAILY Vitamin D 1000IU Oral Tablet 09/25/2021 Unknown ORAL DAILY 1000 INTERNATIONA L UNITS 19930117 RxNorm TAKE 1000 INTERNATIONA L UNITS ORAL DAILY buPROPion Hydrochlorid e SR 150MG Oral Tablet, Extended Release, 12 HR 09/25/2021 Unknown ORAL TWICE A DAY 150 MILLIGRAMS 4254583 RxNorm TAKE 150 MILLIGRAMS ORAL TWICE A DAY Valsartan 160MG Oral Tablet 09/25/2021 09/26/19 22 ORAL DAILY 160 MILLIGRAMS 644221 RxNorm TAKE 160 MILLIGRAMS ORAL DAILY Valsartan 160MG Oral Tablet 09/26/2021 Unknown ORAL DAILY 160 MILLIGRAMS 332269 RxNorm TAKE 1 TABLET BY MOUTH DAILY [...] arthrodesi s, deltoid ligament reconstruc tion 09/17 1056667 9 01/15/2026 Arthre x(R) AR-1319 FT Bone matrix implant, synthetic, non-antimi crobial 0110 8594 7700 2140 1121 1220 1723 0430 1017 2247 8 Active FDA left foot triple arthrodesi s, poss deltoid ligament reconsttru ction 09/17 [id number] 08/06/2021 12/15/2022 AUGMEN T(R) Inject able [id number] 10 +M53 6276 1501 51/$ $526 9468 0524 9120 3F Active FDA left foot triple arthrodesi s, possible deltoid ligament reconstruc tion 09/17 4050467 203F 05/14/2026 Cancel lous Chips 4-9.5m m 15 cc Allergies and Adverse Reactions Allergy Substance Reaction Severity Start Date Concern Status Co de Code System OXYCODONE Nausea (SNOMED-CT: 751426163) Mild Active 7804 RxNorm Plan of Treatment PRE-OP COVID-19 TESTING 09/14/2021 MRI LOWER EXT W/O CONTRAST 07/17/2021 Encounters Encounter Diagnosis Start Date Code Code Sys tem Pre-surgery testing 09/14/2021 [id number] SNOMED-C T Personal Care Team Section Performer Name Performer Role Active Date Inactive Da valeri
--- OUTSIDE RECORDS SUMMARY | 2024-07-06 14:02 | XMS_ITS ---
Author Organization Unknown Address [address] [place] [address] [phone] Phone Care Team Providers Care Harness Tier Name Role Phone CRAIG Randle Attending Unavailable [...] Code Syst em Smoking History Former smoker 08/18/19950725 7804644 SNOMED CT Sex Male Medications Medication Start Date End Date Route Frequency Dose Code Code System Medication Instructions Home Meds Androderm 4MG/24HR Transdermal Patch, Extended Release 09/25/2021 Unknown TRANSDERMAL BEDTIME 1 TRANSDERMAL PATCH 4018828 RxNorm APPLY 1 TRANSDERMAL PATCH TRANSDERMAL BEDTIME Aspir 81 81MG Oral Tablet, Enteric Coated 09/25/2021 Unknown ORAL DAILY 81 MILLIGRAMS RxNorm TAKE 81 MILLIGRAMS ORAL DAILY Atorvastatin Calcium 80MG Oral Tablet 09/25/2021 Unknown ORAL BEDTIME 80 MILLIGRAMS 780542 RxNorm TAKE 80 MILLIGRAMS ORAL BEDTIME Calcium 600 MG Oral Tablet 09/25/2021 Unknown ORAL DAILY 600 MG 026664 RxNorm TAKE 600 MG ORAL DAILY Temazepam 15MG Oral Capsule 09/25/2021 Unknown ORAL BEDTIME 15 MILLIGRAMS 961827 RxNorm TAKE 15 MILLIGRAMS ORAL BEDTIME Valsartan 160MG Oral Tablet 09/25/2021 09/25/19 22 ORAL DAILY 160 MILLIGRAMS 740860 RxNorm TAKE 160 MILLIGRAMS ORAL DAILY Vitamin D 1000IU Oral Tablet 09/25/2021 Unknown ORAL DAILY 1000 INTERNATIONA L UNITS 069967 RxNorm TAKE 1000 INTERNATIONA L UNITS ORAL DAILY buPROPion Hydrochlorid e SR 150MG Oral Tablet, Extended Release, 12 HR 09/25/2021 Unknown ORAL TWICE A DAY 150 MILLIGRAMS 7942213 RxNorm TAKE 150 MILLIGRAMS ORAL TWICE A DAY Valsartan 160MG Oral Tablet 09/25/2021 09/26/19 22 ORAL DAILY 160 MILLIGRAMS 603253 RxNorm TAKE 160 MILLIGRAMS ORAL DAILY Valsartan 160MG Oral Tablet 09/26/2021 Unknown ORAL DAILY 160 MILLIGRAMS 710315 RxNorm TAKE 1 TABLET BY MOUTH DAILY [...] arthrodesi s, deltoid ligament reconstruc tion 09/17 9254719 9 01/15/2026 Arthre x(R) AR-1319 FT Bone matrix implant, synthetic, non-antimi crobial 0110 8594 7700 2140 1121 1220 1723 0430 1017 2247 8 Active FDA left foot triple arthrodesi s, poss deltoid ligament reconsttru ction 09/17 [id number] 08/06/2021 12/15/2022 AUGMEN T(R) Inject able [id number] 10 +M53 6276 1501 51/$ $526 2702 0524 9120 3F Active FDA left foot triple arthrodesi s, possible deltoid ligament reconstruc tion 09/17 [id number] 05/14/2026 Cancel lous Chips 4-9.5m m 15 cc Allergies and Adverse Reactions Allergy Substance Reaction Severity Start Date Concern Status Co de Code System OXYCODONE Nausea (SNOMED-CT: 853488304) Mild Active 7804 RxNorm Plan of Treatment PRE-OP COVID-19 TESTING 09/14/2021 MRI LOWER EXT W/O CONTRAST 07/17/2021 Encounters Encounter Diagnosis Start Date Code Code Sys tem 09/17/2021 [id number] SNOMED-CT Personal Care Team Section Performer Name Performer Role Active Date Inactive Da te
--- OUTSIDE RECORDS SUMMARY | 2024-07-06 14:03 | XMS_ITS ---
Author Organization Unknown Address [address] [place] [address] [phone] Phone Care Team Providers Care Drug Safety Coordinator Name Role Phone CRAIG Randle Attending [...] Dictated by: IMAN DRIVER MD Transcribed by: [facility] 10/31/21/12:58 D Saturday, October 30, 2021 4:30:16 PM [id number] Electronically Reviewed and Signed By: ELIAN DRIVER [...] Dictated by: IMAN DRIVER MD Transcribed by: [facility] [place] 10/31/2113:12 D Saturday, October 30, 2021 4:32:43 PM [id number] Electronically Reviewed and Signed By: ELIAN DRIVER MD 11/02/21 10:17 Copy for: ADOLFO JOO Randle via fax Copy for: [facility] Social History Type Status Start Date End Date Code Code Syst em Smoking History Former smoker 08/18/19956772 3999743 SNOMED CT Sex Male Medications Medication Start Date End Date Route Frequency Dose Code Code System Medication Instructions Home Meds Androderm 4MG/24HR Transdermal Patch, Extended Release 09/25/2021 Unknown TRANSDERMAL BEDTIME 1 TRANSDERMAL PATCH 6267632 RxNorm APPLY 1 TRANSDERMAL PATCH TRANSDERMAL BEDTIME Aspir 81 81MG Oral Tablet, Enteric Coated 09/25/2021 Unknown ORAL DAILY 81 MILLIGRAMS RxNorm TAKE 81 MILLIGRAMS ORAL DAILY Atorvastatin Calcium 80MG Oral Tablet 09/25/2021 Unknown ORAL BEDTIME 80 MILLIGRAMS 338594 RxNorm TAKE 80 MILLIGRAMS ORAL BEDTIME Calcium 600 MG Oral Tablet 09/25/2021 Unknown ORAL DAILY 600 MG 277305 RxNorm TAKE 600 MG ORAL DAILY Temazepam 15MG Oral Capsule 09/25/2021 Unknown ORAL BEDTIME 15 MILLIGRAMS 19811116 RxNorm TAKE 15 MILLIGRAMS ORAL BEDTIME Vitamin D 1000IU Oral Tablet 09/25/2021 Unknown ORAL DAILY 1000 INTER[address] L UNITS 509790 RxNorm TAKE 1000 INTERNATIONA L UNITS ORAL DAILY buPROPion Hydrochlorid e SR 150MG Oral Tablet, Extended Release, 12 HR 09/25/2021 Unknown ORAL TWICE A DAY 150 MILLIGRAMS 2862447 RxNorm TAKE 150 MILLIGRAMS ORAL TWICE A DAY Valsartan 160MG Oral Tablet 09/26/2021 Unknown ORAL DAILY 160 MILLIGRAMS 711802 RxNorm TAKE 1 TABLET BY MOUTH DAILY [...] arthrodesi s, deltoid ligament reconstruc tion 09/17 8948425 9 01/15/2026 Arthre x(R) AR-1319 FT Bone matrix implant, synthetic, non-antimi crobial 0110 8594 7700 2140 1121 1220 1723 0430 1017 2247 8 Active FDA left foot triple arthrodesi s, poss deltoid ligament reconsttru ction 09/17 [id number] 08/06/2021 12/15/2022 AUGMEN T(R) Inject able [id number] 10 +M53 6276 1501 51/$ $526 2702 0524 9120 3F Active FDA left foot triple arthrodesi s, possible deltoid ligament reconstruc tion 09/17 7952358 F 05/14/2026 Cancel lous Chips 4-9.5m m 15 cc Allergies and Adverse Reactions Allergy Substance Reaction Severity Start Date Concern Status Co de Code System OXYCODONE Nausea (SNOMED-CT: 379513338) Mild Active 7804 RxNorm Plan of Treatment PRE-OP COVID-19 TESTING 09/14/2021 MRI LOWER EXT W/O CONTRAST 07/17/2021 Encounters Encounter Diagnosis Start Date Code Code Sys tem Arthrodesis 10/30/2021 75112049 SNOMED-CT Personal Care Team Section Performer Name Performer Role Active Date Inactive Da te
--- OUTSIDE RECORDS SUMMARY | 2024-07-06 14:03 | XMS_ITS ---
Author Organization Unknown Address [address] [place] [address] [phone] Phone Care Team Providers Care Conservation Planner Name Role Phone SEVEN Rosa Attending Unavailable [...] Code Syst em Smoking History Former smoker 08/18/19958601 6183474 SNOMED CT Sex Male Medications Medication Start Date End Date Route Frequency Dose Code Code System Medication Instructions Home Meds Androderm 4MG/24HR Transdermal Patch, Extended Release 09/25/2021 Unknown TRANSDERMAL BEDTIME 1 TRANSDERMAL PATCH 6002881 RxNorm APPLY 1 TRANSDERMAL PATCH TRANSDERMAL BEDTIME Aspir 81 81MG Oral Tablet, Enteric Coated 09/25/2021 Unknown ORAL DAILY 81 MILLIGRAMS RxNorm TAKE 81 MILLIGRAMS ORAL DAILY Atorvastatin Calcium 80MG Oral Tablet 09/25/2021 Unknown ORAL BEDTIME 80 MILLIGRAMS 725954 RxNorm TAKE 80 MILLIGRAMS ORAL BEDTIME Calcium 600 MG Oral Tablet 09/25/2021 Unknown ORAL DAILY 600 MG 733878 RxNorm TAKE 600 MG ORAL DAILY Temazepam [...] Unknown ORAL TWICE A DAY 150 MILLIGRAMS 9612187 RxNorm TAKE 150 MILLIGRAMS ORAL TWICE A DAY Valsartan 160MG Oral Tablet 09/26/2021 Unknown ORAL DAILY 160 MILLIGRAMS 226939 RxNorm TAKE 1 TABLET BY MOUTH DAILY [...] arthrodesi s, deltoid ligament reconstruc tion 09/17 5020757 9 01/15/2026 Arthre x(R) AR-1319 FT Bone matrix implant, synthetic, non-antimi crobial 0110 8594 7700 2140 1121 1220 1723 0430 1017 2247 8 Active FDA left foot triple arthrodesi s, poss deltoid ligament reconsttru ction 09/17 [id number] 08/06/2021 12/15/2022 AUGMEN T(R) Inject able [id number] 10 +M53 6276 1501 51/$ $526 2702 0524 9120 3F Active FDA left foot triple arthrodesi s, possible deltoid ligament reconstruc tion 09/17 7539444 203F 05/14/2026 Cancel lous Chips 4-9.5m m 15 cc Allergies and Adverse Reactions Allergy Substance Reaction Severity Start Date Concern Status Co de Code System OXYCODONE Nausea (SNOMED-CT: 679822326) Mild Active 7804 RxNorm Plan of Treatment PRE-OP COVID-19 TESTING 09/14/2021 MRI LOWER EXT W/O CONTRAST 07/17/2021 Encounters Encounter Diagnosis Start Date Code Code Sys tem Removal of suture 10/02/2021 [id number] [place] Personal Care Team Section Performer Name Performer Role Active Date Inactive Da te
--- OUTSIDE RECORDS SUMMARY | 2024-07-06 14:03 | XMS_ITS ---
Author Organization Unknown Address [address] [place] [address] [phone] Phone Care Team Providers Care Hard Rock Miner Blasting Name Role Phone Unavailable Xwatchlist Unavailable CRAIG Randle Attending Unavailable RADHA Haynes TEACHER OF GIFTED STUDENTS Unavailable [facility] Human Resources Manager Unavailable ADOLFO Randle Primary Unavailable Immunization Immunization Date Status Additional Notes Code Code System COVID-19, mRNA, LNP-S, PF, 1 00 mcg/0.5mL dose or 50 mcg/0.25mL dose 09/19/2020 Completed 207 CVX COVID-19, mRNA, LNP-S, PF, 1 00 mcg/0.5mL dose or 50 mcg/0.25mL dose 10/17/2020 Completed 207 CVX Results BASIC METABOLIC PANEL (BMP) - Collect Date/Time: 09/21/2021 06:30 [facility] ID: [id number] [address] [place] [address], [address] LOINC: 18815-0 Test Value Unit Reference Range Code Code [...] H=34 2028-9 LOINC ANION GAP 8.8 mmol/L 24024-4 LOINC CALCIUM SERUM 8.6 mg/dL L=8.2 H=10.2 20342-0 LOINC AGE 80 years eGFR (non-Afr.Amer.) 37 mL/min 67021-3 LOINC eGFR (Afr-Beninese) 45 mL/min 39582-3 LOINC BNP (PRO-B NATRIURETIC PEPTI DE) - Collect Date/Time: 09/19/2021 13:43 [facility] ID: [id number] [address] [place], [place], [address] LOINC: 46295-4 Test Value Unit Reference Range Code Code System Flag NT-proBNP 1757.0 pg/mL L=0.0 H=450 80623-2 LOINC H BASIC METABOLIC PANEL (BMP) - Collect Date/Time: 09/19/2021 13:43 [facility] ID: [id number] [address] [place] [address], [address] LOINC: 63102-5 Test Value Unit Reference Range Code Code [...] H=34 2028-9 LOINC ANION GAP 6.8 mmol/L 31946-1 LOINC CALCIUM SERUM 8.3 mg/dL L=8.2 H=10.2 17226-6 LOINC AGE 80 years eGFR (non-Afr.Amer.) 52 mL/min 81505-5 LOINC eGFR (Afr-Beninese) 63 mL/min 54847-0 LOINC CBC W/ DIFFERENTIAL* - Colle ct Date/Time: 09/19/2021 13:43 [facility] ID: [id number] [address] [place] [address], [address] LOINC: 65821-8 Test Value Unit Reference Range Code Code System Flag WBC 10.69 th/cmm L=5.00 H=10.00 6690-2 LOINC H NEUT % 79.4 % L=40.0 H=80.0 LYMPH % 10.9 % L=10.0 H=50.0 MONO % 8.0 % L=2.0 H=12.0 48398-8 LOINC EOS % 0.5 % L=0.0 H=8.0 BASO % 0.5 % L=0.0 H=3.0 IG % 0.7 % L=0.0 H=1.1 2514-8 LOINC NRBC % 0.0 % L=0.0 H=0.0 75363-1 LOINC NEUT abs count 8.5 th/cmm L=1.6 H=8.4 751-8 LOINC H LYMPH abs count 1.2 th/cmm L=1.5 H=4.0 731-0 LOINC L MONO abs count 0.9 th/cmm L=0.2 H=1.0 742-7 LOINC EOS abs count 0.1 th/cmm L=0.0 H=0.5 711-2 LOINC BASO abs count 0.1 th/cmm L=0.0 H=0.2 704-7 LOINC IG abs count 0.1 th/cmm L=0.0 H=0.1 94523-1 LOINC NRBC abs count 0.0 mil/cmm L=0.0 H=0.0 47832-1 LOINC RBC 3.46 mil/cmm L=4.30 H=6.20 789-8 LOINC L HEMOGLOBIN 10.2 gm/dL L=13.0 H=17.0 718-7 LOINC L HEMATOCRIT 31 % L=45 H=52 4544-3 LOINC L MCV 89 fL L=82 H=92 787-2 LOINC MCH 29.5 pg L=27.0 H=31.0 785-6 LOINC MCHC 33.0 % L=32.0 H=36.0 786-4 [facility] RDW-SD 44.2 fL L=39.0 H=49.0 788-0 LOINC PLATELET COUNT 151 th/cmm L=150 H=450 777-3 LOINC BASIC METABOLIC PANEL (BMP) - Collect Date/Time: 09/17/2021 09:45 [facility] ID: [id number] [address] [place] [address], [address] LOINC: 54510-4 Test Value Unit Reference Range Code Code [...] H=34 2028-9 LOINC ANION GAP 10.4 mmol/L 73327-8 LOINC CALCIUM SERUM 8.9 mg/dL L=8.2 H=10.2 29589-2 LOINC AGE 80 years eGFR (non-Afr.Amer.) 37 mL/min 24977-9 [facility] eGFR (Afr-Beninese) 45 mL/min 59799-6 [facility] CBC W/ DIFFERENTIAL* - Colle ct Date/Time: 09/17/2021 09:45 [facility] ID: [id number] [address] [place] [address], [address] LOINC: 90399-6 Test Value Unit Reference Range Code Code System Flag WBC 13.49 th/cmm L=5.00 H=10.00 6690-2 LOINC H NEUT % 77.9 % L=40.0 H=80.0 LYMPH % 14.7 % L=10.0 H=50.0 MONO % 5.3 % L=2.0 H=12.0 14861-1 LOINC EOS % 0.7 % L=0.0 H=8.0 BASO % 0.7 % L=0.0 H=3.0 IG % 0.7 % L=0.0 H=1.1 2514-8 LOINC NRBC % 0.0 % L=0.0 H=0.0 38612-2 LOINC NEUT abs count 10.5 th/cmm L=1.6 H=8.4 751-8 LOINC H LYMPH abs count 2.0 th/cmm L=1.5 H=4.0 731-0 LOINC MONO abs count 0.7 th/cmm L=0.2 H=1.0 742-7 LOINC EOS abs count 0.1 th/cmm L=0.0 H=0.5 711-2 LOINC BASO abs count 0.1 th/cmm L=0.0 H=0.2 704-7 LOINC IG abs count 0.1 th/cmm L=0.0 H=0.1 75105-0 LOINC NRBC abs count 0.0 mil/cmm L=0.0 H=0.0 01956-2 LOINC RBC 4.63 mil/cmm L=4.30 H=6.20 789-8 [...] D Sunday, September 19, 2021 10:05:12 AM [id number] Electronically Reviewed and Signed By: CALVIN CHOW [...] D Sunday, September 19, 2021 3:06:43 PM [id number] Electronically Reviewed and Signed By: CALVIN CHOW MD 09/20/21 12:46 Copy for: 185 HEALTH INFORMATION MGMT Social History Type Status Start Date End Date Code Code Syst em Smoking History Former smoker 08/18/19956378 5474541 SNOMED CT Sex Male Vital Signs Vital Sign Value Unit [place] Value [place] Unit Date/Time Recent/Initial? Code Code System Body Mass Index 28.98 kg/m2 09/20/2021 13:21 Most Recent 40220 -5 LOINC Body Mass Index 28.98 kg/m2 09/05/2021 07:51 Initial 68340 -5 LOINC Systolic Blood Pressure 120 mm[Hg] [...] Saturation 91 % 2021 06:05 Most Recent 88938 -5 LOINC O2 Saturation 95 % 2021 16:45 Initial 69837 -5 LOINC Inhaled Oxygen Flow Rate 1.00 [...] kg 213.65 lbs 09/20/2021 13:21 Most Recent 49124 -7 LOINC Weight 96.91 kg 213.65 lbs 09/05/2021 07:51 Initial 59827 -7 LOINC Medications Medication Start Date End Date Route Frequency Dose Code Code System Medication Instructions Home Meds Androderm 4MG/24HR Transdermal Patch, Extended Release 09/25/2021 Unknown TRANSDERMAL BEDTIME 1 TRANSDERMAL PATCH 1904192 RxNorm APPLY 1 TRANSDERMAL PATCH TRANSDERMAL BEDTIME Aspir 81 81MG Oral Tablet, Enteric Coated 09/25/2021 Unknown ORAL DAILY 81 MILLIGRAMS RxNorm TAKE 81 MILLIGRAMS ORAL DAILY Atorvastatin Calcium 80MG Oral Tablet 09/25/2021 Unknown ORAL BEDTIME 80 MILLIGRAMS 373827 RxNorm TAKE 80 MILLIGRAMS ORAL BEDTIME Calcium 600 MG Oral Tablet 09/25/2021 Unknown ORAL DAILY 600 MG 397518 RxNorm TAKE 600 MG ORAL DAILY Temazepam 15MG Oral Capsule 09/25/2021 Unknown ORAL BEDTIME 15 MILLIGRAMS 980769 RxNorm TAKE 15 MILLIGRAMS ORAL BEDTIME Valsartan 160MG Oral Tablet 09/25/2021 09/25/19 22 ORAL DAILY 160 MILLIGRAMS 418935 RxNorm TAKE 160 MILLIGRAMS ORAL DAILY Vitamin D 1000IU Oral Tablet 09/25/2021 Unknown ORAL DAILY 1000 INTERNATIONA L UNITS 924405 RxNorm TAKE 1000 INTERNATIONA L UNITS ORAL DAILY buPROPion Hydrochlorid e SR 150MG Oral Tablet, Extended Release, 12 HR 09/25/2021 Unknown ORAL TWICE A DAY 150 MILLIGRAMS 5760340 RxNorm TAKE 150 MILLIGRAMS ORAL TWICE A DAY Valsartan 160MG Oral Tablet 09/25/2021 09/26/19 22 ORAL DAILY 160 MILLIGRAMS 272613 RxNorm TAKE 160 MILLIGRAMS ORAL DAILY Valsartan 160MG Oral Tablet 09/26/2021 Unknown ORAL DAILY 160 MILLIGRAMS 319862 RxNorm TAKE 1 TABLET BY MOUTH DAILY [...] Ankle Tendo n, Percutaneous Approach 09/17/2021 completed [id number] Fusion of Left Tarsometatars al Joint with Nonautologous Tissue Substitute, Open Approach 09/17/2021 completed [id number] Division of Left Ankle Tendon, Open Approach 09/17/2021 co mpleted [id number] Supplement Left Ankle Tendon with Autologous Tissue Substitute, Open Approach 09/17/2021 completed [id number] Introduction of Anesthetic A gent into Peripheral Nerves and Plexi, Percutaneous Approach 09/17/2021 completed [id number] Anesthesia, Nerves/Muscles/T endons & Fascia, Lower Leg/Ankle/Foot; NOS 09/17/2021 completed 93389 CPT Implants Implanted DALE Status Assigning Authority Procedure Date Lot Number Serial Number Manufacturing Date Expiration Date Distinct ID Code Brand Name Model Number Tendon/lig ament bone anchor, non-bioabs orbable 0100 8888 6700 8533 1726 0531 1013 4425 49 Active FDA Left foot triple arthrodesi s, deltoid ligament reconstruc tion 09/17 [id number] 01/15/2026 Arthre x(R) [id number] FT Bone matrix implant, synthetic, non-antimi crobial 0110 8594 7700 2140 1121 1220 1723 0430 1017 2247 8 Active FDA left foot triple arthrodesi s, poss deltoid ligament reconsttru ction 09/17 [id number] 08/06/2021 12/15/2022 AUGMEN T(R) Inject able [id number] +[id number] 1501 51/$ $526 2702 0524 9120 3F Active FDA left foot triple arthrodesi s, possible deltoid ligament reconstruc tion 09/17 [id number] 05/14/2026 Cancel lous Chips 4-9.5m m 15 cc Allergies and Adverse Reactions Allergy Substance Reaction Severity Start Date Concern Status Co de Code System OXYCODONE Nausea (SNOMED-CT: 472998562) Mild Active 7804 RxNorm Plan of Treatment [...]
--- OUTSIDE RECORDS SUMMARY | 2024-07-06 14:03 | XMS_ITS ---
Author Organization Unknown Address [address] [place] [address] [phone] Phone Care Team Providers Care Per Diem Physical Therapist Assistant Name Role Phone CRAIG Randle Attending Unavailable [...] Code Syst em Smoking History Former smoker 08/18/19959011 7449651 SNOMED CT Sex Male Medications Medication Start Date End Date Route Frequency Dose Code Code System Medication Instructions Home Meds Androderm 4MG/24HR Transdermal Patch, Extended Release 09/25/2021 Unknown TRANSDERMAL BEDTIME 1 TRANSDERMAL PATCH 4474356 RxNorm APPLY 1 TRANSDERMAL PATCH TRANSDERMAL BEDTIME Aspir 81 81MG Oral Tablet, Enteric Coated 09/25/2021 Unknown ORAL DAILY 81 MILLIGRAMS RxNorm TAKE 81 MILLIGRAMS ORAL DAILY Atorvastatin Calcium 80MG Oral Tablet 09/25/2021 Unknown ORAL BEDTIME 80 MILLIGRAMS 043096 RxNorm TAKE 80 MILLIGRAMS ORAL BEDTIME Calcium 600 MG Oral Tablet 09/25/2021 Unknown ORAL DAILY 600 MG 434699 RxNorm TAKE 600 MG ORAL DAILY Temazepam 15MG Oral Capsule 09/25/2021 Unknown ORAL BEDTIME 15 MILLIGRAMS 228764 RxNorm TAKE 15 MILLIGRAMS ORAL BEDTIME Valsartan 160MG Oral Tablet 09/25/2021 09/25/19 22 ORAL DAILY 160 MILLIGRAMS 888248 RxNorm TAKE 160 MILLIGRAMS ORAL DAILY Vitamin D 1000IU Oral Tablet 09/25/2021 Unknown ORAL DAILY 1000 INTERNATIONA L UNITS 678657 RxNorm TAKE 1000 INTERNATIONA L UNITS ORAL DAILY buPROPion Hydrochlorid e SR 150MG Oral Tablet, Extended Release, 12 HR 09/25/2021 Unknown ORAL TWICE A DAY 150 MILLIGRAMS 1775395 RxNorm TAKE 150 MILLIGRAMS ORAL TWICE A DAY Valsartan 160MG Oral Tablet 09/25/2021 09/26/19 22 ORAL DAILY 160 MILLIGRAMS 773303 RxNorm TAKE 160 MILLIGRAMS ORAL DAILY Valsartan 160MG Oral Tablet 09/26/2021 Unknown ORAL DAILY 160 MILLIGRAMS 644452 RxNorm TAKE 1 TABLET BY MOUTH DAILY [...] arthrodesi s, deltoid ligament reconstruc tion 09/17 0963044 9 01/15/2026 Arthre x(R) AR-1319 FT Bone matrix implant, synthetic, non-antimi crobial 0110 8594 7700 2140 1121 1220 1723 0430 1017 2247 8 Active FDA left foot triple arthrodesi s, poss deltoid ligament reconsttru ction 09/17 [id number] 08/06/2021 12/15/2022 AUGMEN T(R) Inject able [id number] +[id number] 1501 51/$ $526 2702 0524 9120 3F Active FDA left foot triple arthrodesi s, possible deltoid ligament reconstruc tion 09/17 [id number] 05/14/2026 Cancel lous Chips 4-9.5m m 15 cc Allergies and Adverse Reactions Allergy Substance Reaction Severity Start Date Concern Status Co de Code System OXYCODONE Nausea (SNOMED-CT: 153948561) Mild Active 7804 RxNorm Plan of Treatment PRE-OP COVID-19 TESTING 09/14/2021 MRI LOWER EXT W/O CONTRAST 07/17/2021 Encounters Encounter Diagnosis Start Date Code Code Sys tem Encounter for other orthopedic aftercare 09/21/2021 SNOMED-CT Personal Care Team Section Performer Name Performer Role Active Date Inactive Da te
--- OUTSIDE RECORDS SUMMARY | 2024-07-06 14:04 | XMS_ITS | Encounter Summary ---
Author Organization [facility] [place] [address] Care Team Providers Care Mass Spectrometry Specialist Name Role Phone Blanco Myles MD Primary Care Provider [phone] Encounter Details Date Type Department Care Team [...] PM EST Office Visit Cardiology at [address] [address] Joel Link MD [facility] [place] [address] 01/18/2025 10:15 AM EDT Office Visit Dermatology at [address] [phone] Mathew Fernando MD [address] [place] [address] [place] [address] documented as of this encounter Visit Diagnoses Not on filedocumented in this encounter Care Teams Mass Spectrometry Specialist Relationship Specialty Start Date End Date Blanco Myles MD [address] [place] [address] PCP - General Family Medicine 03/20/23 documented as of this encounter
--- OUTSIDE RECORDS SUMMARY | 2024-07-06 14:04 | XMS_ITS | Encounter Summary ---
Author Organization [facility] [place] [address] Care Team Providers Care Music Educator Name Role Phone Blanco Myles MD Primary Care Provider [phone] Encounter Details Date Type Department Care Team (Late st Contact Info) Description 01/13/2024 Telephone Cardiology at [address] [phone] Joel Link MD [facility] [place] [address] Social History Tobacco Use Types Packs/Day Years [...] - 01/13/2024 3:32 PM EDT Records from [facility] and [facility] scanned. * Telephone Encounter - Homar Mayorga RN - 01/13/2024 11:29 AM EDT Patient was in [facility] in November for a stroke, and then at [facility] in [facility]. Will request records. At present, no future appointments scheduled with Dr. Link. * Telephone Encounter - Xochitl Osborn - 01/13/2024 10:37 AM EDT Patient called because he wants to make an appointment with Dr Link. He has been in rehab. He wants to make sure his medications are correct and he wants a check up with the doctor. Please call him @ [phone] documented in this encounter Plan of Treatment Upcoming Encounters Date Type Department Care Team (Late st Contact Info) Description 10/07/2024 3:00 PM EST Office Visit Cardiology at [address] [phone] Joel Link MD [facility] [place] [address] 01/18/2025 10:15 AM EDT Office Visit Dermatology at [address] [phone] Mathew Fernando MD [address] [place] [address], [facility] DERMATOLOGY [place], [place] [phone] documented as of this encounter Visit Diagnoses Not on filedocumented in this encounter Care Teams Music Educator Relationship Specialty Start Date End Date Blanco Myles MD [address] [place] [address] PCP - General Family Medicine 03/20/23 documented as of this encounter
--- OUTSIDE RECORDS SUMMARY | 2024-07-06 14:04 | XMS_ITS | Encounter Summary ---
Author [place] [address] Care Team Providers Care Director Gift Name Role Phone Blanco Myles MD Primary Care Provider [phone] Encounter Details Date Type Department Care Team (Late st Contact Info) Description 01/26/2024 Telephone Dermatology at [address] [phone] Marlyn Dean RN Social History [...] 3:00 PM EST Office Visit Cardiology at [address] [place] [phone] Joel Link MD [facility] [address] 01/18/2025 10:15 AM EDT Office Visit Dermatology at [address] [place] [phone] Mathew Fernando MD [address] [facility], [facility] DERMATOLOGY [place], [place] [phone] documented as of this encounter Visit Diagnoses Not on filedocumented in this encounter Care Teams Director Gift Relationship Specialty Start Date End Date Blanco Myles MD [address] [place] [address] PCP - General Family Medicine 03/20/23 documented as of this encounter
--- OUTSIDE RECORDS SUMMARY | 2024-07-06 14:04 | XMS_ITS | Encounter Summary ---
Author Organization [facility] [place] [address] Care Team Providers Care Director Of Medicare Name Role Phone Blanco Myles MD Primary Care Provider [phone] Reason for Visit * Reason Comments Cardiomyopathy Encounter Details Date Type Department Care Team (Latest Contact Info) Description 04/05/2024 3:00 PM EDT Office Visit Cardiology at [address] [phone] Joel Link MD [facility] [place] [address] Cardiomyopathy, ischemic; ASCVD (arteriosclerotic cardiovascular disease); PAF [...] it returned unremarkable Intercurrently, he presented to [facility] 11/2023 with CVA (plegia). Aetiology was posited [...] Oral, NIGHTLY fluticasone propionate (FLONASE) 50 mcg/actuation [place], Suspension 2 sprays, Each Nare, DAILY PRN [...] PM EST Office Visit Cardiology at [address] [place] [address] Joel Link MD [facility] [place] [address] 01/18/2025 10:15 AM EDT Office Visit Dermatology at [address] [phone] Mathew Fernando MD [address] [place] [address], [facility] [place] [address] documented as of this encounter Visit Diagnoses Diagnosis Cardiomyopathy, ischemic Other specified forms of chronic ischemic heart disease ASCVD (arteriosclerotic cardiovascular disease) Unspecified cardiovascular disease PAF (paroxysmal atrial fibrillation) Atrial fibrillation documented in this encounter Care Teams Director Of Medicare Relationship Specialty Start Date End Date Blanco Myles MD [address] [place] [address] PCP - General Family Medicine 03/20/23 documented as of this encounter
--- OUTSIDE RECORDS SUMMARY | 2024-07-06 14:04 | XMS_ITS | Encounter Summary ---
[place] [address] Care Team Providers Care Advertising Account Manager Name Role Phone Blanco Myles MD Primary Care Provider [phone] Reason for Visit * Reason Comments Annual Exam Encounter Details Date Type Department Care Team (Late st Contact Info) Description 01/16/2024 10:30 AM EDT Office Visit Dermatology at [address] [phone] Mathew Fernando MD [address] [facility] [place] [address] AK (actinic keratosis); History of SCC (squamous [...] History of extensive sun exposure living in [place] 3. History of BCCA's right upper back treated in [place] 4. History of BCCA left medial cheek [...] PM EST Office Visit Cardiology at [address] [phone] Joel Link MD [facility] [place] [address] 01/18/2025 10:15 AM EDT Office Visit Dermatology at [address] [phone] Mathew Fernando MD [address] [place] [address], [facility] DERMATOLOGY [place], [place] [phone] documented as of this encounter Visit Diagnoses Diagnosis AK (actinic keratosis) Actinic keratosis History of SCC (squamous cell carcinoma) of skin Personal history of other malignant neoplasm of skin History of basal cell carcinoma Personal history of other malignant neoplasm of skin documented in this encounter Care Teams Advertising Account Manager Relationship Specialty Start Date End Date Blanco Myles MD [address] [place] [address] PCP - General Family Medicine 03/20/23 documented as of this encounter
--- OUTSIDE RECORDS SUMMARY | 2024-07-06 14:04 | XMS_ITS ---
Author Organization Unknown Address [address] [place] [address] [phone] Phone Care Team Providers Care Foreign Service Teacher Name Role Phone CRAIG Randle Attending [...] IMAN DRIVER MD Transcribed by: JOSE 03/13/2211:35 [id number] Electronically Reviewed and Signed By: ELIAN DRIVER [...] IMAN DRIVER MD Transcribed by: JOSE 03/13/2211:33 [id number] Electronically Reviewed and Signed By: ELIAN DRIVER MD 03/20/22 09:04 Copy for: ADOLFO Randle via fax Copy for: 185 HEALTH INFORMATION MGMT Social History Type Status Start Date End Date Code Code Syst em Smoking History Former smoker 08/18/19956256 6259957 SNOMED CT Sex Male Medications Medication Start Date End Date Route Frequency Dose Code Code System Medication Instructions Home Meds Androderm 4MG/24HR Transdermal Patch, Extended Release 09/25/2021 Unknown TRANSDERMAL BEDTIME 1 TRANSDERMAL PATCH 3825496 RxNorm APPLY 1 TRANSDERMAL PATCH TRANSDERMAL BEDTIME Aspir 81 81MG Oral Tablet, Enteric Coated 09/25/2021 Unknown ORAL DAILY 81 MILLIGRAMS RxNorm TAKE 81 MILLIGRAMS ORAL DAILY Atorvastatin Calcium 80MG Oral Tablet 09/25/2021 Unknown ORAL BEDTIME 80 MILLIGRAMS 241281 RxNorm TAKE 80 MILLIGRAMS ORAL BEDTIME Calcium 600 MG Oral Tablet 09/25/2021 Unknown ORAL DAILY 600 MG 896651 RxNorm TAKE 600 MG ORAL DAILY Temazepam [...] Unknown ORAL TWICE A DAY 150 MILLIGRAMS 6502638 RxNorm TAKE 150 MILLIGRAMS ORAL TWICE A DAY Valsartan 160MG Oral Tablet 09/26/2021 Unknown ORAL DAILY 160 MILLIGRAMS 836680 RxNorm TAKE 1 TABLET BY MOUTH DAILY [...] arthrodesi s, deltoid ligament reconstruc tion 09/17 1964516 9 01/15/2026 Arthre x(R) AR-1319 FT Bone matrix implant, synthetic, non-antimi crobial 0110 8594 7700 2140 1121 1220 1723 0430 1017 2247 8 Active FDA left foot triple arthrodesi s, poss deltoid ligament reconsttru ction 09/17 [id number] 08/06/2021 12/15/2022 AUGMEN T(R) Inject able [id number] 10 +[id number] 1501 51/$ $526 2702 0524 9120 3F Active FDA left foot triple arthrodesi s, possible deltoid ligament reconstruc tion 09/17 [id number] 05/14/2026 Cancel lous Chips 4-9.5m m 15 cc Allergies and Adverse Reactions Allergy Substance Reaction Severity Start Date Concern Status Co de Code System OXYCODONE Nausea (SNOMED-CT: 104123382) Mild Active 7808 RxNorm Plan of Treatment PRE-OP COVID-19 TESTING 09/14/2021 MRI LOWER EXT W/O CONTRAST 07/17/2021 Encounters Encounter Diagnosis Start Date Code Code Sys tem Breakage of internal fixation device 03/12/2022 0074 69969 [employer] Personal Care Team Section Performer Name Performer Role Active Date Inactive Da valeri
--- OUTSIDE RECORDS SUMMARY | 2024-07-06 14:04 | XMS_ITS | Encounter Summary ---
Author Organization [facility] [place] [address] Care Team Providers Care Driller'S Assistant Name Role Phone Blanco Myles MD Primary Care Provider [phone] Encounter Details Date Type Department Care Team (Late st Contact Info) Description 12/01/2023 Telephone Cardiology at [address] [phone] Bonnie Watson, RN Social History [...] Koch, neurologist. Erwin has been admitted to [facility] with stroke. Dr. Pittman conferring with Dr. Link. documented in this encounter Plan of Treatment Upcoming Encounters Date Type Department Care Team (Late st Contact Info) Description 10/07/2024 3:00 PM EST Office Visit Cardiology at [address] [phone] Joel Link MD [facility] [place] [address] 01/18/2025 10:15 AM EDT Office Visit Dermatology at [place] [address] [place] [address] Mathew Fernando MD [address], [place] [address] documented as of this encounter Visit Diagnoses Not on filedocumented in this encounter Care Teams Driller'S Assistant Relationship Specialty Start Date End Date Blanco Myles MD [address] [place] [address] PCP - General Family Medicine 03/20/23 documented as of this encounter
--- OUTSIDE RECORDS SUMMARY | 2024-07-06 14:04 | XMS_ITS | Encounter Summary ---
Author Organization [facility] [place] [address] Care Team Providers Care Ditto Machine Operator Name Role Phone Blanco Myles MD Primary Care Provider [phone] Encounter Details Date Type Department Care Team (Latest Contact Info) Description 01/16/2024 10:08 PM EDT - 01/16/2024 11:59 PM EDT Hospital [place] [address] Discharge Disposition: Home Social History Tobacco Use [...] mg Tablet, SublingualIndications:C oronary artery disease involving [place] coronary artery of [place] heart without angina pectoris Place 1 tablet under the tongue every 5 minutes as needed for Chest pain (x 3). 25 tablet 01/23/2022 atorvastatin (Lipitor) 80 mg Tablet Take 80 mg by mouth every evening. 05/31/2020 fluticasone propionate (FLONASE) 50 mcg/actuation [place], Suspension 2 sprays by Each Nare route [...] 3:00 PM EST Office Visit Cardiology at [address] [address] Joel Link MD [facility] [place] [address] 01/18/2025 10:15 AM EDT Office Visit Dermatology at [address] [address] Mathew [place] MD [address] [place] [address], [facility] DERMATOLOGY [place], [place] [id number] documented as of this encounter Procedures Procedure Name Priority Date/Time Associated Diagnosis Comments SURGICAL PATHOLOGY REPORT Routine 01/16/2024 10:55 AM EDT documented in this encounter Results * Surgical Pathology Report (01/16/2024 10:55 AM EDT) Final Diagnosis [id number] ? Location: OPW The signing pathologist has (i) examined the relevant preparation(s) for the specimen(s) and (ii) rendered or confirmed the diagnosis(es). . ?Surgical Pathology DIAGNOSIS Right mid cheek, skin shave biopsy C&D: - ??Basal cell carcinoma, superficial and nodular types, ?? present at the peripheral and deep specimen edges Electronically signed by: ?Karthik QUINTERO, PhD, [facility] Verified: ??01/23/2024 15:43 ??Dermatopathol ogist Performed at: ??-[facility] [place] Dept[place]ology, [place] [address] Obstetrical Anesthesiologist: Alma Giang MD, AP, ??CLIA Certificate: [id number] SPECIMEN(S) SUBMITTED A - R mid cheek, [...] labeled A1. ??shb 01/23/2024 3:43 PM EDT [facility] SPECIMEN FROM SKIN / Unknown 01/16/2024 10:55 AM EDT 01/16/2024 10:55 AM EDT Mathew [place] MD PATHOLOGY/CYTOLOGY O DANIELITO [facility] [place] [address] documented in this encounter Visit Diagnoses Not on filedocumented in this encounter Care Teams Ditto Machine Operator Relationship Specialty Start Date End Date Blanco Myles MD [address] [place] [address] PCP - General Family Medicine 03/20/23 documented as of this encounter
--- OUTSIDE RECORDS SUMMARY | 2024-07-06 14:04 | XMS_ITS | Clinical Summary ---
Author Organization [facility] Address [facility] [place] [address] Care Team Providers Care Private Duty Rn Name Role Phone Blanco Myles MD Primary Care Provider [phone] Allergies Active Allergy Reactions Criticality Noted Date [...] 05/31/2020 Active fluticasone propionate (FLONASE) 50 mcg/actuation [place], Suspension 2 sprays by Each Nare route daily as needed. 03/11/2020 Active nitroGLYcerin (Nitrostat) 0.4 mg Tablet, SublingualIndications :Coronary artery disease involving [place] coronary artery of [place] heart without angina pectoris Place 1 tablet [...] nor exam. 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 01/07/2018 01/11/2021 NSTEMI (non-ST elevated myoc ardial infarction) 11/18/2017 12/30/2017 History of SCC (squamous garrett l carcinoma) of skin 03/06/2017 06/07/2019 History of basal cell carcinoma 02/11/2017 06/07/2019 AK (actinic keratosis) 02/11/201707/20 Encounters Date Type Department Care Team Description 04/05/2024 3:00 PM EDT Office Visit Cardiology at [address] [place] [place] [address] Joel Link MD Cardiomyopathy, ischemic; [...] PM EST Office Visit Cardiology at [address] [place] [place] [address] Joel Link MD [facility] [address] 01/18/2025 10:15 AM EDT Office Visit Dermatology at [address] [phone] Mathew [place] MD [address] [place] [address], [facility] [place] [address] Health Maintenance Due Date Last Done Comments Pneumoccocal Vaccine: 65+ (1 of 2 - PCV) 12/06/1946 Tetanus/Diphtheria/Pertussis Vaccines (1 - Tdap) 12/06 Zoster vaccine (1 of 2) 12/06/1989 Advance Directive 12/06/1994 RSV Vaccine (1 - 1-dose 75+ series) 12/06/2014 Covid-19 Vaccine (1 - season) 2024 Influenza (Flu) vaccine (1 o f 1 - Influenza standard series) 04/18/2024 Advance Directives Documents on File Type Date Recorded Patient Ammonium Nitrate Crystallizer Expl anation Personal Ammonium Nitrate Crystallizer 06/12/2023 10:42 AM Jesse Brothers - Spouse * Full Code (Latest Code Status on File) Date Activated Date Inactivated Comments 11/18/2017 10:37 PM 11/20/2017 1:04 PM Question Answer Comments Does patient have capacity to make decision: Yes Care Teams Private Duty Rn Relationship Specialty Start Date End Date Blanco Myles MD [address] [place] [address] PCP - General Family Medicine 03/20/23
--- OUTSIDE RECORDS SUMMARY | 2024-07-06 14:04 | XMS_ITS ---
Author Organization Unknown Address [address] [place] [phone] Phone Care Team Providers Care Labor Commissioner Name Role Phone CRAIG Randle Attending Unavailable [...] D Saturday, December 11, 2021 2:11:02 PM [id number] Electronically Reviewed and Signed By: STEVIE GARRISON [...] D Saturday, December 11, 2021 2:11:02 PM [id number] Electronically Reviewed and Signed By: STEVIE GARRISON RADIOLOGIST 12/17/21 11:29 Copy for: ADOLFO GE Razia via fax Copy for: 185 [facility] INFORMATION MGMT Social History Type Status Start Date End Date Code Code Syst em Smoking History Former smoker 08/18/19955839 9308539 SNOMED CT Sex Male Medications Medication Start Date End Date Route Frequency Dose Code Code System Medication Instructions Home Meds Androderm 4MG/24HR Transdermal Patch, Extended Release 09/25/2021 Unknown TRANSDERMAL BEDTIME 1 TRANSDERMAL PATCH 8022811 RxNorm APPLY 1 TRANSDERMAL PATCH TRANSDERMAL BEDTIME Aspir 81 81MG Oral Tablet, Enteric Coated 09/25/2021 Unknown ORAL DAILY 81 MILLIGRAMS RxNorm TAKE 81 MILLIGRAMS ORAL DAILY Atorvastatin Calcium 80MG Oral Tablet 09/25/2021 Unknown ORAL BEDTIME 80 MILLIGRAMS 761597 RxNorm TAKE 80 MILLIGRAMS ORAL BEDTIME Calcium 600 MG Oral Tablet 09/25/2021 Unknown ORAL DAILY 600 MG 966742 RxNorm TAKE 600 MG ORAL DAILY Temazepam 15MG Oral Capsule 09/25/2021 Unknown ORAL BEDTIME 15 MILLIGRAMS 884958 RxNorm TAKE 15 MILLIGRAMS ORAL BEDTIME Vitamin D 1000IU Oral Tablet 09/25/2021 Unknown ORAL DAILY 1000 INTERNATIONA L UNITS 777660 RxNorm TAKE 1000 INTERNATIONA L UNITS ORAL DAILY buPROPion Hydrochlorid e SR 150MG Oral Tablet, Extended Release, 12 HR 09/25/2021 Unknown ORAL TWICE A DAY 150 MILLIGRAMS 8621462 RxNorm TAKE 150 MILLIGRAMS ORAL TWICE A DAY Valsartan 160MG Oral Tablet 09/26/2021 Unknown ORAL DAILY 160 MILLIGRAMS 248000 RxNorm TAKE 1 TABLET BY MOUTH DAILY [...] arthrodesi s, deltoid ligament reconstruc tion 09/17 0978071 9 01/15/2026 Arthre x(R) AR-1319 FT Bone matrix implant, synthetic, non-antimi crobial 0110 8594 7700 2140 1121 1220 1723 0430 1017 2247 8 Active FDA left foot triple arthrodesi s, poss deltoid ligament reconsttru ction 09/17 [id number] 08/06/2021 12/15/2022 AUGMEN T(R) Inject able [id number] 10 +M53 6276 1501 51/$ $526 2702 0524 9120 3F Active FDA left foot triple arthrodesi s, possible deltoid ligament reconstruc tion 09/17 [id number] 203F 05/14/2026 Cancel lous Chips 4-9.5m m 15 cc Allergies and Adverse Reactions Allergy Substance Reaction Severity Start Date Concern Status Co de Code System OXYCODONE Nausea (SNOMED-CT: 422466872) Mild Active 7804 RxNorm Plan of Treatment PRE-OP COVID-19 TESTING 09/14/2021 MRI LOWER EXT W/O CONTRAST 07/17/2021 Encounters Encounter Diagnosis Start Date Code Code Sys tem Arthrodesis 12/11/2021 24112150 ANT Farm-Stitch Personal Care Team Section Performer Name Performer Role Active Date Inactive Da valeri
--- OUTSIDE RECORDS SUMMARY | 2024-07-06 14:04 | XMS_ITS | Encounter Summary ---
Author Organization [facility] [place] [address] Care Team Providers Care Supervisor Dental Laboratory Name Role Phone Blanco Myles MD Primary Care Provider [phone] Encounter Details Date Type Department Care Team [...] 3:00 PM EST Office Visit Cardiology at [address] [address] Joel Link MD [facility] [address] [place] [address] 01/18/2025 10:15 AM EDT Office Visit Dermatology at [address] [address] Mathew [place] MD [address] [place] [address] [place] [address] documented as of this encounter Visit Diagnoses Not on filedocumented in this encounter Care Teams Supervisor Dental Laboratory Relationship Specialty Start Date End Date Blanco Myles MD [address] [place] [address] PCP - General Family Medicine 03/20/23 documented as of this encounter
--- OUTSIDE RECORDS SUMMARY | 2024-07-06 14:05 | XMS_ITS | Encounter Summary ---
Author Organization [facility] [place] [address] Care Team Providers Care Glove Cutter Name Role Phone Karo Otero MD Primary Care Provider [phone] Encounter Details Date Type Department Care Team (Late st Contact Info) Description 02/20/2021 Telephone Cardiology at [address] [address] Joel Link MD [facility] [address] [place] [address] Social History Tobacco Use Types Packs/Day Years [...] last week. Please call him back @ [phone] * Telephone Encounter - Homar Mayorga RN [...] and worn out. Please call him at [phone]. documented in this encounter Plan of Treatment Upcoming Encounters Date Type Department Care Team (Late st Contact Info) Description 10/07/2024 3:00 PM EST Office Visit Cardiology at [address] [place] [phone] Joel Link MD [facility] [place] [address] 01/18/2025 10:15 AM EDT Office Visit Dermatology at [place] [address] [facility] [place] [address] Mathew [place] MD [address] [facility] [place] [address] documented as of this encounter Visit Diagnoses Not on filedocumented in this encounter Care Teams Glove Cutter Relationship Specialty Start Date End Date Karo Otero MD [address] [place] [address] PCP - General Family Medicine 02/11/17 03/19/23 documented as of this encounter
--- OUTSIDE RECORDS SUMMARY | 2024-07-06 14:05 | XMS_ITS | Encounter Summary ---
[place] [address] Care Team Providers Care Broadcaster Name Role Phone Karo Otero MD Primary Care Provider [phone] Reason for Visit * Reason Comments Annual Exam Encounter Details Date Type Department Care Team (Late st Contact Info) Description 01/14/2023 10:15 AM EDT Office Visit Dermatology at [address] [address] Mathew [place] MD [address] [facility] [place] [address] [place] (actinic keratosis); History of SCC (squamous [...] ??History of extensive sun exposure living in [place] 3. ??History of BCCA's right upper back treated in [place] 4. ??History of BCCA left medial cheek [...] be called into the community pharmacy in [facility] Rule out BCC left anterior shoulder 1. After obtaining for consent site was anesthetized and removed with shave C&D 2. After curettage site measured 8 mm in diameter 3. Return to clinic in a year for repeat check. CC: MD Blacno Guzman MD documented in this encounter Plan of Treatment Upcoming Encounters Date Type Department Care Team (Late st Contact Info) Description 10/07/2024 3:00 PM EST Office Visit Cardiology at [address] [phone] Joel Link MD [facility] [place] [address] 01/18/2025 10:15 AM EDT Office Visit Dermatology at [address] [phone] Mathew [place] MD [address] [place] [address], [facility] [place] [address] documented as of this encounter Visit Diagnoses Diagnosis AK (actinic keratosis) Actinic keratosis History of SCC (squamous cell carcinoma) of skin Personal history of other malignant neoplasm of skin History of basal cell carcinoma Personal history of other malignant neoplasm of skin documented in this encounter Care Teams Broadcaster Relationship Specialty Start Date End Date Karo Otero MD [address] [place] [address] PCP - General Family Medicine 02/11/17 03/19/23 documented as of this encounter
--- OUTSIDE RECORDS SUMMARY | 2024-07-06 14:05 | XMS_ITS | Encounter Summary ---
Author Organization [facility] [place] [address] Care Team Providers Care Machine Packager Name Role Phone Karo Otero MD Primary Care Provider [phone] Reason for Visit * Reason Comments Medication Refill Encounter Details Date Type Department Care Team (Late st Contact Info) Description 12/17/2020 Refill Cardiology at [address] [place] [phone] Joel Link MD [facility] [place] [address] Medication Refill Social History Tobacco Use Types [...] PM EST Office Visit Cardiology at [address] [place] [phone] Joel Link MD [facility] [place] [address] 01/18/2025 10:15 AM EDT Office Visit Dermatology at [address] [place] [address] Mathew [place] MD [address] [facility] [place] [address] documented as of this encounter Visit Diagnoses Diagnosis Coronary artery disease involving [place] coronary artery of [place] heart without angina pectoris documented in this encounter Care Teams Machine Packager Relationship Specialty Start Date End Date Karo Otero MD [address] [place] [address] PCP - General Family Medicine 02/11/17 03/19/23 documented as of this encounter
--- OUTSIDE RECORDS SUMMARY | 2024-07-06 14:05 | XMS_ITS | Encounter Summary ---
Author Organization [facility] [place] [address] Care Team Providers Care Hot Baller Name Role Phone Blanco Myles MD Primary Care Provider [phone] Encounter Details Date Type Department Care Team (Late st Contact Info) Description 03/31/2023 Telephone Cardiology at [address] [place] [address] Joel Link MD [facility] [place] [address] Social History Tobacco Use Types Packs/Day Years [...] 8:28 AM EDT Spoke to scheduling at [facility] and an echo can be done at [facility] the first week of April if he would like to have it done in [place]. Patient called and does request echo order to be sent to [facility], he is aware the scheduling departmentwill contact him. * Telephone Encounter - Xochitl Osborn - 03/31/2023 8:13 AM EDT Patient called because he was ordered an echo and cardiac/vascular sonographer to be done at [facility]. The cardiac/vascular sonographer is being put on today but they cannot schedule the echo until June 11. He would like to know if he can get it done sooner here at [facility] or if Dr Link could do it sooner at ? Please call him @ [phone] documented in this encounter Plan of Treatment Upcoming Encounters Date Type Department Care Team (Late st Contact Info) Description 10/07/2024 3:00 PM EST Office Visit Cardiology at [address] [phone] Joel Link MD [facility] [place] [address] 01/18/2025 10:15 AM EDT Office Visit Dermatology at [address] [place] [address] Mathew [place] MD [address] [place] [address], [facility] [place] [address] documented as of this encounter Visit Diagnoses Not on filedocumented in this encounter Care Teams Hot Baller Relationship Specialty Start Date End Date Blanco Myles MD [address] [place] [address] PCP - General Family Medicine 03/20/23 documented as of this encounter
--- OUTSIDE RECORDS SUMMARY | 2024-07-06 14:05 | XMS_ITS | Encounter Summary ---
Author Organization [facility] [place] [address] Care Team Providers Care Vault Maker Name Role Phone Karo Otero MD Primary Care Provider [phone] Encounter Details Date Type Department Care Team (Late st Contact Info) Description 07/06/2022 External [place] [address] Social History Tobacco Use Types Packs/Day Years [...] PM EST Office Visit Cardiology at [address] [phone] [facility] [place] [address] 01/18/2025 10:15 AM EDT Office Visit Dermatology at [address] [address] Mathew [place] MD [address] [place] [address], [facility] [place] [address] documented as of this encounter Procedures Procedure Name Priority Date/Time Associated Diagnosis Comments ECG SCAN Routine 07/06/2022 documented in this encounter Results * Scan Doc: ECG (07/06/2022) Historical Provider MD IBRAHIM MGR SCAN EX T ORDR/RSLT documented in this encounter Visit Diagnoses Not on filedocumented in this encounter Care Teams Vault Maker Relationship Specialty Start Date End Date Karo Otero MD [address] [place] [address] PCP - General Family Medicine 02/11/17 03/19/23 documented as of this encounter
--- OUTSIDE RECORDS SUMMARY | 2024-07-06 14:05 | XMS_ITS | Encounter Summary ---
Author Organization [facility] [place] [address] Care Team Providers Care Gang Saw Operator Name Role Phone Karo Otero MD Primary Care Provider [phone] Encounter Details Date Type Department Care Team (Late st Contact Info) Description 05/03/2021 Telephone Cardiology at [address] [address] Joel Link MD [facility] [place] [address] Social History Tobacco Use Types Packs/Day Years [...] down. He is at Cardiac [facility] in [facility]. His # is [phone] documented in this encounter Plan of Treatment Upcoming Encounters Date Type Department Care Team (Late st Contact Info) Description 10/07/2024 3:00 PM EST Office Visit Cardiology at [address] [address] Joel Link MD [facility] [place] [address] 01/18/2025 10:15 AM EDT Office Visit Dermatology at [address] [phone] Mathew [place] MD [address] [facility] [place] [address] documented as of this encounter Visit Diagnoses Not on filedocumented in this encounter Care Teams Gang Saw Operator Relationship Specialty Start Date End Date Karo Otero MD [address] [place] [address] PCP - General Family Medicine 02/11/17 03/19/23 documented as of this encounter
--- OUTSIDE RECORDS SUMMARY | 2024-07-06 14:05 | XMS_ITS | Encounter Summary ---
Author Organization [facility] [place] [address] Care Team Providers Care Medical Record Technician Name Role Phone Karo Otero MD Primary Care Provider [phone] Reason for Visit * Reason Comments Ventricular Arrhythmia Ventricular Bigem iny Coronary Artery Disease Encounter Details Date Type Department Care Team (Late st Contact Info) Description 01/17/2021 10:20 AM EDT Office Visit Cardiology at [address] [phone] Joel Link [address] [facility] [place] [address] Coronary artery disease involving [place] coronary artery of [place] heart without angina pectoris; Cardiomyopathy, ischemic; Hyperpiesia; [...] Rfl: ??? fluticasone propionate (FLONASE) 50 mcg/actuation [place], Suspension, 2 sprays by Each Nare route [...] eyes Added automatically from request for surgery [id number] Added automatically from request for surgery [id number] ??? Ventricular bigeminy ??? Cardiomyopathy, ischemic 11/2017: [...] PM EST Office Visit Cardiology at [address] [address] [facility] [place] [address] 01/18/2025 10:15 AM EDT Office Visit Dermatology at [address] [address] Mathew [place] MD [address] [facility] DERMATOLOGY [place], [place] [address] documented as of this encounter Visit Diagnoses Diagnosis Coronary artery disease involving [place] coronary artery of [place] heart without angina pectoris Cardiomyopathy, ischemic Other specified forms of chronic ischemic heart disease Hyperpiesia Unspecified essential hypertension Ventricular bigeminy Other specified cardiac dysrhythmias documented in this encounter Care Teams Medical Record Technician Relationship Specialty Start Date End Date Karo Otero MD [address] [place] [address] PCP - General Family Medicine 02/11/17 03/19/23 documented as of this encounter
--- OUTSIDE RECORDS SUMMARY | 2024-07-06 14:05 | XMS_ITS | Encounter Summary ---
Author Organization [facility] [place] [address] Care Team Providers Care Burrer Marker Axle Name Role Phone Karo Otero MD Primary Care Provider [phone] Reason for Visit * Reason Comments Medication Refill Encounter Details Date Type Department Care Team (Late st Contact Info) Description 07/19/2020 Refill Cardiology at [address] [phone] Joel Link MD [facility] [place] [address] Medication Refill Social History Tobacco Use Types [...] 3:00 PM EST Office Visit Cardiology at [address] [phone] Joel Link MD [facility] [place] [address] 01/18/2025 10:15 AM EDT Office Visit Dermatology at [address] [place] [address] Mathew [place] MD [address] [facility] [place] [address] documented as of this encounter Visit Diagnoses Diagnosis Essential hypertension Unspecified essential hypertension documented in this encounter Care Teams Burrer Marker Axle Relationship Specialty Start Date End Date Karo Otero MD [address] [place] [address] PCP - General Family Medicine 02/11/17 03/19/23 documented as of this encounter
--- OUTSIDE RECORDS SUMMARY | 2024-07-06 14:05 | XMS_ITS | Encounter Summary ---
Author Organization [facility] [place] [address] Care Team Providers Care Retail Department Supervisor Name Role Phone Blanco Myles MD Primary Care Provider [phone] Encounter Details Date Type Department Care Team (Latest Contact Info) Description 06/03/2023 10:00 AM EDT Ext Surgery or Single Event [address] [phone] Joel Link MD [facility] [place] [address] PAF (paroxysmal atrial fibrillation) Social History Tobacco [...] Note Patient Name: Tra Brothers III : [id number] Date of Procedure: 06/03/2023 Time of Procedure: [...] PM EST Office Visit Cardiology at [address] [phone] Joel Link MD [facility] [place] [address] 01/18/2025 10:15 AM EDT Office Visit Dermatology at [address] [phone] Mathew Fernando MD 580 [facility] [place] [address] documented as of this encounter Procedures Procedure [...] fibrillation documented in this encounter Care Teams Retail Department Supervisor Relationship Specialty Start Date End Date Blanco Myles MD [address] [place] [address] PCP - General Family Medicine 03/20/23 documented as of this encounter
--- OUTSIDE RECORDS SUMMARY | 2024-07-06 14:05 | XMS_ITS | Encounter Summary ---
Author Organization [facility] [place] [address] Care Team Providers Care Manager Party Name Role Phone Blanco Myles MD Primary Care Provider [phone] Encounter Details Date Type Department Care Team (Late st Contact Info) Description 07/18/2023 Telephone Cardiology at [address] [phone] Joel Link MD [facility] [place] [address] Social History Tobacco Use Types Packs/Day Years [...] 3:00 PM EST Office Visit Cardiology at [address] [phone] Joel Link MD [facility] [place] [address] 01/18/2025 10:15 AM EDT Office Visit Dermatology at [place] [address] [place] [phone] Mathew Fernando MD 580 [facility], [place] [address] documented as of this encounter Visit Diagnoses Not on filedocumented in this encounter Care Teams Manager Party Relationship Specialty Start Date End Date Blanco Myles MD [address] [place] [address] PCP - General Family Medicine 03/20/23 documented as of this encounter
--- OUTSIDE RECORDS SUMMARY | 2024-07-06 14:05 | XMS_ITS | Encounter Summary ---
Author Organization [facility] [place] [address] Care Team Providers Care Machine Tracer Name Role Phone Blanco Myles MD Primary Care Provider [phone] Encounter Details Date Type Department Care Team (Late st Contact Info) Description 05/06/2023 Telephone Cardiology at [address] [address] Homar Mayorga RN Social History [...] will help it. Please call him @ [phone] * Telephone Encounter - Homar Mayorga RN - 05/06/2023 3:40 PM EDT Called patient to let them know that his Cardioversion is scheduled for Friday06/03/23. His arrival time is 8:30 am to [facility], procedure time is 10:00 (in ICU). Patient is aware he will need a cmv driver for day of procedure. He is [...] 3:00 PM EST Office Visit Cardiology at [address] [place] [address] Joel Link MD [facility] [place] [place] [address] 01/18/2025 10:15 AM EDT Office Visit Dermatology at [address] [place] [address] Mathew Fernando MD [address] [facility] [address], [place] [address] documented as of this encounter Visit Diagnoses Not on filedocumented in this encounter Care Teams Machine Tracer Relationship Specialty Start Date End Date Blanco Myles MD [address] [place] [address] PCP - General Family Medicine 03/20/23 documented as of this encounter
--- OUTSIDE RECORDS SUMMARY | 2024-07-06 14:05 | XMS_ITS | Encounter Summary ---
[place] [address] Care Team Providers Care Assistant Professor Of Biochemistry Name Role Phone Karo Otero MD Primary Care Provider [phone] Reason for Visit * Reason Comments Annual Exam Encounter Details Date Type Department Care Team (Late st Contact Info) Description 01/11/2022 9:45 AM EDT Office Visit Dermatology at [address] [phone] Mathew Fernando MD 580 [facility] [place] [address] History of SCC (squamous cell carcinoma) of [...] ??History of extensive sun exposure living in [place] 3. ??History of BCCA's right upper back treated in [place] 4. ??History of BCCA left medial cheek [...] at the hairline and on the left muslim and on the upper nasal bridge. Fortunately [...] PM EST Office Visit Cardiology at [address] [phone] Joel Link MD [facility] [place] [address] 01/18/2025 10:15 AM EDT Office Visit Dermatology at [address] [phone] Mathew Fernando MD [address] [place] [address], [facility] [address] documented as of this encounter Visit Diagnoses Diagnosis History of SCC (squamous cell carcinoma) of skin Personal history of other malignant neoplasm of skin History of basal cell carcinoma Personal history of other malignant neoplasm of skin AK (actinic keratosis) Actinic keratosis documented in this encounter Care Teams Assistant Professor Of Biochemistry Relationship Specialty Start Date End Date Karo Otero MD [address] [place] [address] PCP - General Family Medicine 02/11/17 03/19/23 documented as of this encounter
--- OUTSIDE RECORDS SUMMARY | 2024-07-06 14:05 | XMS_ITS | Encounter Summary ---
Author Organization [facility] [place] [address] Care Team Providers Care Manager Leadership Development Name Role Phone Karo Otero MD Primary Care Provider [phone] Reason for Visit * Reason Onset Date Comments Atrial Fibrillation 09/16/2022 Encounter Details Date Type Department Care Team (Late st Contact Info) Description 09/16/2022 Telephone Cardiology at [address] [phone] Joel Link MD [facility] [place] [address] Atrial Fibrillation Social History Tobacco Use Types [...] twice a day. Primary subjective symptom: fatigue. [place] accepted plan to see Dr. Link in the clinic in two weeks. documented in this encounter Plan of Treatment Upcoming Encounters Date Type Department Care Team (Late st Contact Info) Description 10/07/2024 3:00 PM EST Office Visit Cardiology at [address] [place] [address] Joel Link MD [facility] [place] [address] 01/18/2025 10:15 AM EDT Office Visit Dermatology at [address] [place] [address] Mathew Fernando MD [address] [place] [address], [facility] A DERMATOLOGY [place], [place] [phone] documented as of this encounter Visit Diagnoses Not on filedocumented in this encounter Care Teams Manager Leadership Development Relationship Specialty Start Date End Date Karo Otero MD [address] [place] [address] PCP - General Family Medicine 02/11/17 03/19/23 documented as of this encounter
--- OUTSIDE RECORDS SUMMARY | 2024-07-06 14:05 | XMS_ITS | Encounter Summary ---
Author Organization [facility] [place] [address] Care Team Providers Care Supervisor Pullet Farm Name Role Phone Karo Otero MD Primary Care Provider [phone] Reason for Visit * Reason Comments Medication Refill Encounter Details Date Type Department Care Team (Late st Contact Info) Description 07/13/2019 Refill Cardiology at [address] [phone] Joel Link MD [facility] [place] [address] Medication Refill Social History Tobacco Use Types [...] 3:00 PM EST Office Visit Cardiology at [address] [phone] Joel Link MD [facility] [place] [address] 01/18/2025 10:15 AM EDT Office Visit Dermatology at [address] [place] [address] Mathew Fernando MD 580 [facility] [address] documented as of this encounter Visit Diagnoses Diagnosis Essential hypertension Unspecified essential hypertension documented in this encounter Care Teams Supervisor Pullet Farm Relationship Specialty Start Date End Date Karo Otero MD [address] [place] [address] PCP - General Family Medicine 02/11/17 03/19/23 documented as of this encounter
--- OUTSIDE RECORDS SUMMARY | 2024-07-06 14:05 | XMS_ITS | Encounter Summary ---
Author Organization [facility] [place] [address] Care Team Providers Care Personal Computer Network Engineer Name Role Phone Karo Otero MD Primary Care Provider [phone] Encounter Details Date Type Department Care Team (Late st Contact Info) Description 12/18/2020 Telephone Cardiology at [address] [phone] Joel Link MD [facility] [place] [address] Social History Tobacco Use Types Packs/Day Years [...] refill with new bottle. Please call into [facility] pharmacy in [facility]. documented in this encounter Plan of Treatment Upcoming Encounters Date Type Department Care Team (Late st Contact Info) Description 10/07/2024 3:00 PM EST Office Visit Cardiology at [address] [place] [address] Joel Link MD [facility] [place] [address] 01/18/2025 10:15 AM EDT Office Visit Dermatology at [address] [place] [address] Mathew Fernando MD 580 [facility], [facility] [place] [address] documented as of this encounter Visit Diagnoses Not on filedocumented in this encounter Care Teams Personal Computer Network Engineer Relationship Specialty Start Date End Date Karo Otero MD [address] [place] [address] PCP - General Family Medicine 02/11/17 03/19/23 documented as of this encounter
--- OUTSIDE RECORDS SUMMARY | 2024-07-06 14:05 | XMS_ITS | Encounter Summary ---
[place] [address] Care Team Providers Care Road Mechanic Name Role Phone Karo Otero MD Primary Care Provider [phone] Encounter Details Date Type Department Care Team (Late st Contact Info) Description 09/26/2020 10:30 AM EST Office Visit Dermatology at [address] [place] [address] Mathew Fernando MD 580 [facility] [address] Visit for suture removal Social History Tobacco [...] PM EST Office Visit Cardiology at [address] [phone] Joel Link MD [facility] [place] [address] 01/18/2025 10:15 AM EDT Office Visit Dermatology at [address] [phone] Mathew Fernando MD [address] [place] [address], [facility] [place] [address] documented as of this encounter Visit Diagnoses Diagnosis Visit for suture removal Encounter for removal of sutures documented in this encounter Care Teams Road Mechanic Relationship Specialty Start Date End Date Karo Otero MD [address] [place] [address] PCP - General Family Medicine 02/11/17 03/19/23 documented as of this encounter
--- OUTSIDE RECORDS SUMMARY | 2024-07-06 14:05 | XMS_ITS | Encounter Summary ---
Author Organization [facility] [place] [address] Care Team Providers Care Airline Station Agent Name Role Phone Karo Otero MD Primary Care Provider [phone] Encounter Details Date Type Department Care Team (Late st Contact Info) Description 06/01/2019 Telephone Cardiology at [address] [phone] Joel Link MD [facility] [place] [address] Social History Tobacco Use Types Packs/Day Years [...] 06/01/2019 4:20 PM EDT appt scheduled called [facility] informing Patient * Telephone Encounter - Homar Mayorga RN - 06/01/2019 3:47 PM EDT Waiting on records from [facility]. * Telephone Encounter - Beronica Garcia - 06/01/2019 2:41 PM EDT Patient being D/C from [facility] today for ventricular Bigeminy. Dr Romero is asking for an appt for patient CHARLIE. They will fax [facility] notes. #[phone] documented in this encounter Plan of Treatment Upcoming Encounters Date Type Department Care Team (Late st Contact Info) Description 10/07/2024 3:00 PM EST Office Visit Cardiology at [address] [phone] Joel Link MD [facility] [address] 01/18/2025 10:15 AM EDT Office Visit Dermatology at [address] [place] [address] Mathew Fernando MD 580 [facility], [facility] [place] [address] documented as of this encounter Visit Diagnoses Not on filedocumented in this encounter Care Teams Airline Station Agent Relationship Specialty Start Date End Date Karo Otero MD [address] [place] [address] PCP - General Family Medicine 02/11/17 03/19/23 documented as of this encounter
--- OUTSIDE RECORDS SUMMARY | 2024-07-06 14:05 | XMS_ITS | Encounter Summary ---
Author Organization [facility] [place] [address] Care Team Providers Care Flux Plant Operator Name Role Phone Blanco Myles MD Primary Care Provider [phone] Encounter Details Date Type Department Care Team (Late st Contact Info) Description 06/18/2023 Telephone Cardiology at [address] [phone] Joel Link MD [facility] [place] [address] Social History Tobacco Use Types Packs/Day Years [...] PM EST Office Visit Cardiology at [address] [phone] Joel Link MD [facility] [place] [address] 01/18/2025 10:15 AM EDT Office Visit Dermatology at [address] [phone] Mathew Fernando MD 580 [facility] [place] [address] documented as of this encounter Visit Diagnoses Not on filedocumented in this encounter Care Teams Flux Plant Operator Relationship Specialty Start Date End Date Blanco Myles MD [address] [place] [address] PCP - General Family Medicine 03/20/23 documented as of this encounter
--- OUTSIDE RECORDS SUMMARY | 2024-07-06 14:05 | XMS_ITS | Encounter Summary ---
Author Organization [facility] [place] [address] Care Team Providers Care Vice President Of Business Development Name Role Phone Karo Otero MD Primary Care Provider [phone] Reason for Visit * Reason Onset Date Comments Shortness of Breath 06/05/2020 Encounter Details Date Type Department Care Team (Late st Contact Info) Description 06/05/2020 Telephone Cardiology at [address] [phone] Joel Link MD [facility] [place] [address] Shortness of Breath Social History Tobacco Use [...] 48 hr to be placed 06/15/2020 @ [facility] 11 am * Telephone Encounter - Beronica Garcia - 06/14/2020 2:49 PM EDT Order faxed to [facility] Scheduling 06/13/2020 * Telephone Encounter - Bonnie Watson RN - 06/05/2020 4:23 PM EDT Erwin agrees to come to the clinic for nurse to conduct EKG on June 08, approximately 10 am * Telephone Encounter - Bonnie Watson RN - 06/05/2020 9:29 AM EDT Call to patient's phone [phone] He is not in distress right now. Requested he review his symptoms with me. My energy level is low.Last week I was at [employer] and I felt very dizzy and short [...] told to report these symptoms to his shoe maker. Erwin is not routinely recording his home [...] saw PCP and was told to call shoe maker. Called for PCP notes. #[phone] documented in this encounter Plan of Treatment Upcoming Encounters Date Type Department Care Team (Late st Contact Info) Description 10/07/2024 3:00 PM EST Office Visit Cardiology at [address] [place] [address] Joel Link MD [facility] [place] [address] 01/18/2025 10:15 AM EDT Office Visit Dermatology at [address] [phone] Mathew Fernando MD 580 [facility], [facility] [place] [address] documented as of this encounter Results * Holter Monitor 48hr (06/20/2020) Anatomical Region Laterality Modality Other Narrative 06/20/2020 Location: ??[facility] Referring: Nikolay Indication: ??lightheadedness Duration of [...] Visit Diagnoses Diagnosis 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
--- OUTSIDE RECORDS SUMMARY | 2024-07-06 14:05 | XMS_ITS | Encounter Summary ---
Author Organization [facility] [place] [address] Care Team Providers Care Research Soil Scientist Name Role Phone Karo Otero MD Primary Care Provider [phone] Encounter Details Date Type Department Care Team (Late st Contact Info) Description 07/01/2019 Telephone Cardiology at [address] [phone] Joel Link MD [facility] [place] [place] [address] Social History Tobacco Use Types Packs/Day Years [...] a script for this to go to [facility] order He is also asking for a Referral to Cardiac Rehab in [facility]. # [phone] documented in this encounter Plan of Treatment Upcoming Encounters Date Type Department Care Team (Late st Contact Info) Description 10/07/2024 3:00 PM EST Office Visit Cardiology at [address] [place] [address] Joel Link MD [facility] [place] [address] 01/18/2025 10:15 AM EDT Office Visit Dermatology at [address] [place] [address] Mathew Fernando MD [address] [place] [address], [facility] [place] [address] documented as of this encounter Visit Diagnoses Not on filedocumented in this encounter Care Teams Research Soil Scientist Relationship Specialty Start Date End Date Karo Otero MD [address] [place] [address] PCP - General Family Medicine 02/11/17 03/19/23 documented as of this encounter
--- OUTSIDE RECORDS SUMMARY | 2024-07-06 14:05 | XMS_ITS | Encounter Summary ---
Author Organization [facility] [address] Care Team Providers Care Wool Sampler Name Role Phone Karo Otero MD Primary Care Provider [phone] Encounter Details Date Type Department Care Team (Latest Contact Info) Description 01/13/2023 10:04 PM EDT - 01/13/2023 11:59 PM EDT Hospital [place] [address] Discharge Disposition: Home Social History Tobacco Use [...] mg Tablet, SublingualIndications:C oronary artery disease involving paimiut coronary artery of paimiut heart without angina pectoris Place 1 tablet under the tongue every 5 minutes as needed for Chest pain (x 3). 25 tablet 01/23/2022 atorvastatin (Lipitor) 80 mg Tablet Take 80 mg by mouth every evening. 05/31/2020 fluticasone propionate (FLONASE) 50 mcg/actuation [place], Suspension 2 sprays by Each Nare route [...] PM EST Office Visit Cardiology at [address] [place] [address] Joel Link MD [facility] [place] [address] 01/18/2025 10:15 AM EDT Office Visit Dermatology at [address] [place] [address] Mathew Fernando MD [address] [place] [address], [facility] Martha DERMATOLOGY [place], [place] [phone] documented as of this encounter Procedures Procedure Name Priority Date/Time Associated Diagnosis Comments SURGICAL PATHOLOGY REPORT Routine 01/13/2023 10:45 AM EDT documented in this encounter Results * (ABNORMAL) Surgical Pathology Report (01/13/2023 10:45 AM EDT) Final Diagnosis [id number] ? Location: [facility] The signing pathologist has (i) examined the relevant preparation(s) for the specimen(s) and (ii) rendered or confirmed the diagnosis(es). . ?Surgical Pathology DIAGNOSIS Left anterior shoulder, skin shave biopsy ED&C: - ??Invasive squamous cell carcinoma, ??moderately differentiated with infiltrating growth pattern, present at the base of the biopsy specimen Electronically signed by: ?Karthik QUINTERO, PhD, [facility] Verified: ??01/22/2023 8:51 ?? Dermatopathologist Performed at: ??-[facility] Dept. of Pathology, [place] [address] Marketing Intelligence Manager: Alma Giang MD, AP, ??CLIA Certificate: [id number] DISCUSSION THIS RESULT REQUIRES PHYSICIAN/A.P.P. FOLLOW UP [...] entirely submitted in 1 cassette labeled A1. ??amrianela(A) 01/22/2023 8:51 AM EDT [facility] SPECIMEN FROM SKIN / Unknown 01/13/2023 10:45 AM EDT 01/13/2023 10:45 AM EDT Mathew Fernando MD PATHOLOGY/CYTOLOGY O [place] Performing Organization Address City/State/[facility] Co de Phone Number [facility] [address] [place] [address] [facility] [place] [address] documented in this encounter Visit Diagnoses Not on filedocumented in this encounter Care Teams Wool Sampler Relationship Specialty Start Date End Date Karo Otero MD [address] [place] [address] PCP - General Family Medicine 02/11/17 03/19/23 documented as of this encounter
--- OUTSIDE RECORDS SUMMARY | 2024-07-06 14:05 | XMS_ITS | Encounter Summary ---
Author Organization [facility] Address [facility] [place] [address] Care Team Providers Care Heat Treat Worker Name Role Phone Blanco Myles MD Primary Care Provider [phone] Reason for Referral * Diagnostic Test (Routine) - Closed Specialty Diagnoses / Procedures Referred By Contac t Referred To Contact Cardiology Diagnoses Cardiomyopathy, ischemic Procedures Echocardiogram Transthoracic Joel Link MD [facility] [place] [address] [facility] OUTPATIENT [address] [place] [address] [place] [address] Referral ID Status Reason Start Date Expiration Date V isits Requested Visits Authorized [id number] Closed Specialty Service Requested 03/20/2023 09/16/2023 1 1 Reason for Visit * Reason Comments Coronary Artery Disease Atrial Fibrillation Paroxysmal atrial fi brillation Encounter Details Date Type Department Care Team (Latest Contact Info) Description 03/20/2023 3:20 PM EDT Office Visit Cardiology at [address] [phone] Joel Link MD [facility] [place] [address] Cardiomyopathy, ischemic; ASCVD (arteriosclerotic cardiovascular disease); PAF [...] 3 cycles fluticasone propionate (FLONASE) 50 mcg/actuation Orange, Suspension 2 sprays, Each Nare, DAILY PRN [...] PM EST Office Visit Cardiology at [address] [address] Joel Link MD [facility] [place] [address] 01/18/2025 10:15 AM EDT Office Visit Dermatology at [address] [address] Mathew Fernando MD [address] [facility] DERMATOLOGY [place], [place] [id number] Scheduled Orders Name Type Priority Associated Diagnoses Order Schedule Echocardiogram Transthoracic Echocardiography Routine Cardiomyopathy, ischemic Expected: 03/20/2023, Expires: 09/19/2023 documented as of this encounter Visit Diagnoses Diagnosis Cardiomyopathy, ischemic 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
--- OUTSIDE RECORDS SUMMARY | 2024-07-06 14:05 | XMS_ITS | Encounter Summary ---
Author Organization [facility] [place] [address] Care Team Providers Care Hotel Assistant General Manager Name Role Phone Karo Otero MD Primary Care Provider [phone] Reason for Visit * Reason Onset Date Comments Results 06/20/2020 Holter Encounter Details Date Type Department Care Team (Late st Contact Info) Description 06/20/2020 Telephone Cardiology at [address] [phone] Joel Link MD [facility] [place] [address] Results (Holter) Social History Tobacco Use Types [...] PM EST Office Visit Cardiology at [address] [phone] Joel Link MD [facility] [place] [address] 01/18/2025 10:15 AM EDT Office Visit Dermatology at [address] [phone] Mathew Fernando MD [address] [place] [address], [facility] [place]ERMATOLOGY [place], [place] [id number] documented as of this encounter Visit Diagnoses Not on filedocumented in this encounter Care Teams Hotel Assistant General Manager Relationship Specialty Start Date End Date Karo Otero MD [address] [place] [address] PCP - General Family Medicine 02/11/17 03/19/23 documented as of this encounter
--- OUTSIDE RECORDS SUMMARY | 2024-07-06 14:05 | XMS_ITS | Encounter Summary ---
Author Organization [facility] Address [facility] [place] [address] Care Team Providers Care Helmet Binder Name Role Phone Karo Otero MD Primary Care Provider [phone] Reason for Referral * Consultation (Routine) - Closed Specialty Diagnoses / Procedures Referred By Contact Referred To Contact Electrophysiology / Cardiology Diagnoses Ventricular bigeminy Joel Link MD [facility] [place] [address] Mane Gonzalez MD [facility] [place] [address] Referral ID Status Reason Start Date Expiration Date V isits Requested Visits Authorized [id number] Closed Consult, Test & Treat 08/30/2019 08/29/2020 1 1 Encounter Details Date Type Department Care Team (Late st Contact Info) Description 08/30/2019 Telephone Cardiology at [address] [address] Joel Link MD [facility] [place] [address] Social History Tobacco Use Types Packs/Day Years [...] mg 1 tab 2 x daily. # [phone] documented in this encounter Plan of Treatment Upcoming Encounters Date Type Department Care Team (Late st Contact Info) Description 10/07/2024 3:00 PM EST Office Visit Cardiology at [address] [place] [address] Joel Link MD [facility] [place] [address] 01/18/2025 10:15 AM EDT Office Visit Dermatology at [employer] [address] [place] [phone] Mathew Fernando MD [address], [place] [address] Scheduled Referrals Name Type Priority Associated Diagnoses Order Schedule Referral to Cardiac Electrophysiology Outpatient Referral Routine Ventricular bigeminy Ordered: 08/30/2019 documented as of this encounter Visit Diagnoses Diagnosis Ventricular bigeminy Other specified cardiac dysrhythmias documented in this encounter Care Teams Helmet Binder Relationship Specialty Start Date End Date Karo Otero MD [address] [place] [address] PCP - General Family Medicine 02/11/17 03/19/23 documented as of this encounter
--- OUTSIDE RECORDS SUMMARY | 2024-07-06 14:05 | XMS_ITS | Encounter Summary ---
Author Organization [facility] [place] [address] Care Team Providers Care Polymer Chemist Name Role Phone Karo Otero MD Primary Care Provider [phone] Encounter Details Date Type Department Care Team (Late st Contact Info) Description 08/03/2020 Telephone Cardiology at [address] [phone] Joel Link MD [facility] [address] [place] [address] Social History Tobacco Use Types Packs/Day Years [...] everything is fine. Please call him at [phone] documented in this encounter Plan of Treatment Upcoming Encounters Date Type Department Care Team (Late st Contact Info) Description 10/07/2024 3:00 PM EST Office Visit Cardiology at [address] [phone] Joel Link MD [facility] [place] [address] 01/18/2025 10:15 AM EDT Office Visit Dermatology at [address] [place] [address] Mathew Fernando MD [address] [place] [address], [facility] [place] [place] [address] documented as of this encounter Visit Diagnoses Not on filedocumented in this encounter Care Teams Polymer Chemist Relationship Specialty Start Date End Date Karo Otero MD [address] [place] [address] PCP - General Family Medicine 02/11/17 03/19/23 documented as of this encounter
--- OUTSIDE RECORDS SUMMARY | 2024-07-06 14:05 | XMS_ITS | Encounter Summary ---
Author Organization [facility] [place] [address] Care Team Providers Care Environmental Conservation Officer Name Role Phone Karo Otero MD Primary Care Provider [phone] Reason for Visit * Reason Comments Medication Refill Encounter Details Date Type Department Care Team (Late st Contact Info) Description 12/20/2020 Refill Cardiology at [address] [place] [phone] Joel Link MD [facility] [place] [address] Medication Refill Social History Tobacco Use Types [...] PM EST Office Visit Cardiology at [address] [place] [phone] Joel Link MD [facility] [place] [address] 01/18/2025 10:15 AM EDT Office Visit Dermatology at [address] [place] [address] Mathew Fernando MD 580 [facility], [place] [address] documented as of this encounter Visit Diagnoses Diagnosis 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
--- OUTSIDE RECORDS SUMMARY | 2024-07-06 14:05 | XMS_ITS | Encounter Summary ---
Author Organization [facility] [place] [address] Care Team Providers Care Wine Maker Name Role Phone Karo Otero MD Primary Care Provider [phone] Encounter Details Date Type Department Care Team (Late st Contact Info) Description 06/08/2020 [place] [phone] Unknown None Social History Tobacco Use Types [...] 3:00 PM EST Office Visit Cardiology at [address] [phone] Joel Link MD [facility] [address] 01/18/2025 10:15 AM EDT Office Visit Dermatology at [address] [phone] Mathew Fernando MD [address] [place] [address], [facility] [place] [address] (work) documented as of this encounter Procedures [...] (Bezet) 402 ms MUSE SYSTEM Calculated P Dameron 73 degrees MUSE SYSTEM Calculated R Dameron -20 degrees MUSE SYSTEM Calculated T Dameron 37 degrees MUSE SYSTEM INTERPRETATION Sinus bradycardia with 1st degree A-V block Minimal voltage criteria for LVH, may be normal variant Borderline ECG When compared with ECG of 08-JUN-2020 10:00, No significant change was found Confirmed by MD Link Daniel ([id number]) on 07/22/2020 11:08:36 AM MUSE SYSTEM 07/19/2020 [...] (Bezet) 420 ms MUSE SYSTEM Calculated P Dameron 76 degrees MUSE SYSTEM Calculated R Dameron -22 degrees MUSE SYSTEM Calculated T Dameron 26 degrees MUSE SYSTEM INTERPRETATION Sinus bradycardia with 1st degree A-V block Otherwise normal ECG When compared with ECG of 18-OCT-2019 10:36, No significant change was found Confirmed by MD Link Daniel ([id number]) on 06/08/2020 12:38:56 PM MUSE SYSTEM 06/08/2020 10:0 0 AM EDT 06/08/2020 12:38 PM EDT Unknown ECG ORDERABLES MUSE SYSTEM documented in this encounter Visit Diagnoses Not on filedocumented in this encounter Care Teams Wine Maker Relationship Specialty Start Date End Date Karo Otero MD [address] [place] [address] PCP - General Family Medicine 02/11/17 03/19/23 documented as of this encounter
--- OUTSIDE RECORDS SUMMARY | 2024-07-06 14:05 | XMS_ITS | Encounter Summary ---
[place] [address] Care Team Providers Care Brewing Director Name Role Phone Karo Otero MD Primary Care Provider [phone] Encounter Details Date Type Department Care Team (Late st Contact Info) Description 07/06/2022 Telephone Cardiology at [address] [phone] Fred Reynaga MD [facility] [place] [address] Social History Tobacco Use Types Packs/Day Years [...] he has clinically improved Fred Reynaga MD Mainframe Programmer Analyst [id number] documented in this encounter Plan of Treatment Upcoming Encounters Date Type Department Care Team (Late st Contact Info) Description 10/07/2024 3:00 PM EST Office Visit Cardiology at [address] [phone] Joel Link MD [facility] [address] 01/18/2025 10:15 AM EDT Office Visit Dermatology at [address] [phone] Mathew Fernando MD [address] [place] [address], [facility] DERMATOLOGY [place], [place] [phone] documented as of this encounter Visit Diagnoses Not on filedocumented in this encounter Care Teams Brewing Director Relationship Specialty Start Date End Date Karo Otero MD [address] [place] [address] PCP - General Family Medicine 02/11/17 03/19/23 documented as of this encounter
--- OUTSIDE RECORDS SUMMARY | 2024-07-06 14:05 | XMS_ITS | Encounter Summary ---
Author Organization [facility] Address [facility] [place] [address] Care Team Providers Care Handhole Machine Operator Name Role Phone Blanco Myles MD Primary Care Provider [phone] Reason for Visit * Reason Onset Date Comments Tachycardia 02/27/2023 Encounter Details Date Type Department Care Team (Late st Contact Info) Description 02/27/2023 Telephone Cardiology at [address] [phone] Joel Link MD [facility] [place] [address] Tachycardia Social History Tobacco Use Types Packs/Day [...] he feels down. Please call him @ [phone] * Telephone Encounter - Bonnie Watson, RN [...] PM EST Office Visit Cardiology at [address] [phone] Joel Link MD [facility] [place] [place] [address] 01/18/2025 10:15 AM EDT Office Visit Dermatology at [address] [phone] Mathew Fernando MD [address] [place] [address], [facility] [place] [address] documented as of this encounter Visit Diagnoses Not on filedocumented in this encounter Care Teams Handhole Machine Operator Relationship Specialty Start Date End Date Blanco Myles MD [address] [place] [address] PCP - General Family Medicine 03/20/23 documented as of this encounter
--- OUTSIDE RECORDS SUMMARY | 2024-07-06 14:05 | XMS_ITS | Encounter Summary ---
Author Organization [facility] [place] [address] Care Team Providers Care Stereo Plotter Operator Name Role Phone Karo Otero MD Primary Care Provider [phone] Encounter Details Date Type Department Care Team (Late st Contact Info) Description 12/20/2020 Telephone Cardiology at [address] [phone] Joel Link MD [facility] [place] [address] Social History Tobacco Use Types Packs/Day Years [...] He would like it to go to [facility] . He would also like one refill. Patient is expecting a call back @ [phone] only if there are questions or problems. documented in this encounter Plan of Treatment Upcoming Encounters Date Type Department Care Team (Late st Contact Info) Description 10/07/2024 3:00 PM EST Office Visit Cardiology at [address] [place] [address] Joel Link MD [facility] [place] [address] 01/18/2025 10:15 AM EDT Office Visit Dermatology at [address] [place] [phone] Mathew Fernando MD [address] [place] [address], [facility] [place] [address] documented as of this encounter Visit Diagnoses Not on filedocumented in this encounter Care Teams Stereo Plotter Operator Relationship Specialty Start Date End Date Karo Otero MD [address] [place] [address] PCP - General Family Medicine 02/11/17 03/19/23 documented as of this encounter
--- OUTSIDE RECORDS SUMMARY | 2024-07-06 14:05 | XMS_ITS | Encounter Summary ---
[place] [address] Care Team Providers Care Elevator Supervisor Name Role Phone Karo Otero MD Primary Care Provider [phone] Reason for Visit * Reason Comments Skin Lesion Encounter Details Date Type Department Care Team (Late st Contact Info) Description 06/11/2022 3:15 PM EDT Office Visit Dermatology at [address] [place] [address] Mathew Fernando MD [address] [facility] [place] [address] [place] (actinic keratosis) Social History Tobacco Use [...] PM EST Office Visit Cardiology at [address] [phone] Joel Link MD [facility] [place] [address] 01/18/2025 10:15 AM EDT Office Visit Dermatology at [address] [phone] Mathew Fernando MD [address] [place] [address], [facility] [place] [address] documented as of this encounter Visit Diagnoses Diagnosis AK (actinic keratosis) Actinic keratosis documented in this encounter Care Teams Elevator Supervisor Relationship Specialty Start Date End Date Karo Oetro MD [address] [place] [address] PCP - General Family Medicine 02/11/17 03/19/23 documented as of this encounter
--- OUTSIDE RECORDS SUMMARY | 2024-07-06 14:05 | XMS_ITS | Encounter Summary ---
Author Organization [facility] [place] [address] Care Team Providers Care First Calender Worker Name Role Phone Karo Otero MD Primary Care Provider Reason for Visit * Reason Comments Atrial Fibrillation Coronary Artery Disease Encounter Details Date Type Department Care Team (Latest Contact Info) Description 12/04/2022 1:00 PM EDT Office Visit Cardiology at [address] [phone] Joel Link MD [facility] [place] [address] ASCVD (arteriosclerotic cardiovascular disease); Cardiomyopathy, ischemic; PAF [...] DAILY ??? fluticasone propionate (FLONASE) 50 mcg/actuation Hendricks, Suspension 2 sprays, Each Nare, DAILY PRN [...] exam. Will obtain echo report from [facility] from 06/2022 - Diuresis: none - [...] exam. Will obtain echo report from [facility] from 06/2022 - Diuresis: none - [...] 3:00 PM EST Office Visit Cardiology at [address] [phone] Joel Link MD [facility] [place] [address] 01/18/2025 10:15 AM EDT Office Visit Dermatology at [address] [phone] Mathew Fernando MD [address] [place] [address] DERMATOLOGY [place], [place] [id number] documented as of this encounter Visit Diagnoses Diagnosis ASCVD (arteriosclerotic cardiovascular disease) Unspecified cardiovascular disease Cardiomyopathy, ischemic Other specified forms of chronic ischemic heart disease PAF (paroxysmal atrial fibrillation) Atrial fibrillation documented in this encounter Care Teams First Calender Worker Relationship Specialty Start Date End Date Karo Otero MD [address] [place] [address] PCP - General Family Medicine 02/11/17 03/19/23 documented as of this encounter
--- OUTSIDE RECORDS SUMMARY | 2024-07-06 14:05 | XMS_ITS | Encounter Summary ---
Author Organization [facility] [place] [address] Care Team Providers Care Sheet Metal Duct Installer Name Role Phone Blanco Myles MD Primary Care Provider [phone] Reason for Visit * Reason Onset Date Comments Results 04/23/2023 Encounter Details Date Type Department Care Team (Late st Contact Info) Description 04/23/2023 Telephone Cardiology at [address] [phone] Joel Link MD [facility] [place] [address] Results Social History Tobacco Use Types Packs/Day [...] PM EST Office Visit Cardiology at [address] [place] [phone] Joel Link MD [facility] [place] [address] 01/18/2025 10:15 AM EDT Office Visit Dermatology at [address] [place] [address] Mathew Fernando MD [address] [place] [address], [place] [address] documented as of this encounter Visit Diagnoses Not on filedocumented in this encounter Care Teams Sheet Metal Duct Installer Relationship Specialty Start Date End Date Blanco Myles MD [address] [place] [address] PCP - General Family Medicine 03/20/23 documented as of this encounter
--- OUTSIDE RECORDS SUMMARY | 2024-07-06 14:05 | XMS_ITS | Encounter Summary ---
Author Organization [facility] Address [facility] [place] [address] Care Team Providers Care Transportation Modeler Name Role Phone Blanco Myles MD Primary Care Provider [phone] Reason for Visit * Diagnostic Test (Routine) - Closed Specialty Diagnoses / Procedures Referred By Contac t Referred To Contact Cardiology Diagnoses Cardiomyopathy, ischemic Procedures Echocardiogram Transthoracic Joel Link MD [facility] [place] [address] [facility] OUTPATIENT [address] [place] [address] [place] [address] Referral ID Status Reason Start Date Expiration Date V isits Requested Visits Authorized [id number] Closed Specialty Service Requested 03/20/2023 09/16/2023 1 1 Encounter Details Date Type Department Care Team (Latest Contact Info) Description 04/22/2023 5:40 PM EDT Ext Surgery or Single Event [address] [place] [phone] Joel Link MD [facility] [place] [address] Cardiomyopathy, ischemic Social History Tobacco Use Types [...] 3:00 PM EST Office Visit Cardiology at [place] [address] [facility] [place] [address] Joel Link MD [facility] [place] [address] 01/18/2025 10:15 AM EDT Office Visit Dermatology at [place] [address] [facility] [place] [phone] Mathew Fernando MD 580 [facility] A DERMATOLOGY [place], [place] [phone] documented as of this encounter Procedures Procedure [...] disease documented in this encounter Care Teams Transportation Modeler Relationship Specialty Start Date End Date Blanco Myles MD [address] [place] [address] PCP - General Family Medicine 03/20/23 documented as of this encounter
--- OUTSIDE RECORDS SUMMARY | 2024-07-06 14:05 | XMS_ITS | Encounter Summary ---
Author Organization [facility] [place] [address] Care Team Providers Care Geneticist Name Role Phone Karo Otero MD Primary Care Provider [phone] Encounter Details Date Type Department Care Team [...] 3:00 PM EST Office Visit Cardiology at [address] [phone] Joel Link MD [facility] [place] [address] 01/18/2025 10:15 AM EDT Office Visit Dermatology at [address] [phone] Mathew Fernando MD [address] [place] [address], [facility] [place] [address] documented as of this encounter Visit Diagnoses Not on filedocumented in this encounter Care Teams Geneticist Relationship Specialty Start Date End Date Karo Otero MD [address] [place] [address] PCP - General Family Medicine 02/11/17 03/19/23 documented as of this encounter
--- OUTSIDE RECORDS SUMMARY | 2024-07-06 14:05 | XMS_ITS | Encounter Summary ---
Author Organization [facility] Address [facility] [place] [address] Care Team Providers Care Carbon Electrodes Supervisor Name Role Phone Blanco Myles MD Primary Care Provider [phone] Reason for Referral * Surgical (Routine) - Closed Specialty Diagnoses / Procedures Referred By Contac t Referred To Contact Diagnoses PAF (paroxysmal atrial fibrillation) Procedures CARDIOVERSION-OR Joel Link MD [facility] [place] [address] Referral ID Status Reason Start Date Expiration Date V isits Requested Visits Authorized [id number] Closed Specialty Service Requested 05/05/2023 11/01/2023 1 1 Encounter Details Date Type Department Care Team (Late st Contact Info) Description 05/01/2023 Telephone Cardiology at [address] [phone] Joel Link MD [facility] [address] [place] [id number] Social History Tobacco Use Types Packs/Day Years [...] 2:47 PM EDT To: Joel Link MD, [facility] Card Nurse Subject: hloter scanned Holter scanned [...] or his monitor. Please call him @ [phone] documented in this encounter Plan of Treatment Upcoming Encounters Date Type Department Care Team (Late st Contact Info) Description 10/07/2024 3:00 PM EST Office Visit Cardiology at [address] [phone] Joel Link MD [facility] [place] [address] 01/18/2025 10:15 AM EDT Office Visit Dermatology at [address] [phone] Mathew Fernando MD [address] [place] [address], [facility] D[facility] [place], [place] [id number] Scheduled Orders Name Type Priority Associated Diagnoses Orde r Schedule CARDIOVERSION-OR Procedures Routine PAF (paroxysmal atrial fibrillation) Expected: 05/05/2023, Expires: 09/04/2023 documented as of this encounter Visit Diagnoses Diagnosis PAF (paroxysmal atrial fibrillation) Atrial fibrillation documented in this encounter Care Teams Carbon Electrodes Supervisor Relationship Specialty Start Date End Date Blanco Myles MD [address] [place] [address] PCP - General Family Medicine 03/20/23 documented as of this encounter
--- OUTSIDE RECORDS SUMMARY | 2024-07-06 14:05 | XMS_ITS | Encounter Summary ---
Author Organization [facility] Address [facility] [place] [address] Care Team Providers Care Thread Inspector Name Role Phone Karo Otero MD Primary Care Provider [phone] Reason for Visit * Reason Comments Follow-up Discharge [facility] for V entricular Bigeminy Encounter Details Date Type Department Care Team (Late st Contact Info) Description 06/07/2019 11:40 AM EDT Office Visit Cardiology at [address] [phone] Joel Link MD [facility] [place] [address] Coronary artery disease involving [place] coronary artery of [place] heart without angina pectoris; Ventricular bigeminy Social [...] Complaint Patient presents with ??? Follow-up Discharge [facility] for Ventricular Bigeminy HPI 78 M presents on follow-up for ventricular bigeminy. Last seen by me 03/2019, at which time a carotid was ordered which demonstrated mild disease bilaterally. He went to [facility] 05/31/2019 with fatigue; this was noted to [...] 3 (moderate) ??? Coronary artery disease involving [place] coronary artery of [place] heart 11/2017: mild diffuse LM and RCA, [...] Center 08/30/2019 10:00 AM Mathew Fernando MD [facility] Derm [facility] 10/18/2019 10:20 AM Joel Link MD [facility] Joel MD Nikolay documented in this encounter [...] PM EST Office Visit Cardiology at [address] [phone] Joel Link MD [facility] [place] [address] 01/18/2025 10:15 AM EDT Office Visit Dermatology at [address] [phone] Mathew Fernando MD [address] [place] [address], [facility] [place] [address] documented as of this encounter Procedures Procedure [...] (Bezet) 408 ms MUSE SYSTEM Calculated P [place] 69 degrees MUSE SYSTEM Calculated R [place] -3 degrees MUSE SYSTEM Calculated T [place] 34 degrees MUSE SYSTEM INTERPRETATION Sinus bradycardia with 1st degree A-V block Otherwise normal ECG When compared with ECG of 19-NOV-2017 10:46, QT has shortened Confirmed by MD Nikolay, Joel ([id number]) on 06/08/2019 10:28:56 AM MUSE SYSTEM 06/07/2019 11:4 4 AM EDT 06/08/2019 10:28 AM EDT Unknown ECG ORDERABLES MUSE SYSTEM documented in this encounter Visit Diagnoses Diagnosis Coronary artery disease involving [place] coronary artery of [place] heart without angina pectoris Ventricular bigeminy Other specified cardiac dysrhythmias documented in this encounter Care Teams Thread Inspector Relationship Specialty Start Date End Date Karo Otero MD [address] [place] [address] PCP - General Family Medicine 02/11/17 03/19/23 documented as of this encounter
--- OUTSIDE RECORDS SUMMARY | 2024-07-06 14:05 | XMS_ITS | Encounter Summary ---
Author Organization [facility] Address [facility] [place] [address] Care Team Providers Care Oracle Technical Developer Name Role Phone Blanco Myles MD Primary Care Provider [phone] Reason for Visit * Reason Comments Atrial Fibrillation Coronary Artery Disease Encounter Details Date Type Department Care Team (Latest Contact Info) Description 06/19/2023 1:00 PM EDT Office Visit Cardiology at [address] [phone] Joel Link MD [facility] [address] Cardiomyopathy, ischemic; PAF (paroxysmal atrial fibrillation); Palpitations; [...] 3 cycles fluticasone propionate (FLONASE) 50 mcg/actuation [place], Suspension 2 sprays, Each Nare, DAILY PRN [...] PM EST Office Visit Cardiology at [address] [phone] Joel Link MD [facility] [place] [address] 01/18/2025 10:15 AM EDT Office Visit Dermatology at [address] [phone] Mathew Fernando MD [address] [place] [address], [facility] DERMATOLOGY [place], [place] [phone] documented as of this encounter Visit Diagnoses Diagnosis Cardiomyopathy, ischemic Other specified forms of chronic ischemic heart disease PAF (paroxysmal atrial fibrillation) Atrial fibrillation Palpitations Dyspnea, unspecified type ASCVD (arteriosclerotic cardiovascular disease) Unspecified cardiovascular disease documented in this encounter Care Teams Oracle Technical Developer Relationship Specialty Start Date End Date Blanco Myles MD [address] [place] [address] PCP - General Family Medicine 03/20/23 documented as of this encounter
--- OUTSIDE RECORDS SUMMARY | 2024-07-06 14:05 | XMS_ITS | Encounter Summary ---
Author Organization [facility] Address [facility] [place] [address] Care Team Providers Care Gas Turbine Powerplant Mechanic Helper Name Role Phone Blanco Myles MD Primary Care Provider [phone] Encounter Details Date Type Department Care Team (Late st Contact Info) Description 05/21/2023 Telephone Cardiology at [address] [phone] Joel Link MD [facility] [place] [address] Social History Tobacco Use Types Packs/Day Years [...] his Cardioversion is scheduled for 06/03 at [facility], andif we get a cancellation we would try to move ups his procedure date. He was also reminded he couldgo to the ER for evaluation for worsening symptoms, which he is thinking about as a possibility. * Telephone Encounter - Beronica Garcia - 05/21/2023 11:29 AM EDT Patient called and is in A-Fib and wants to speak to a nurse. #[phone] Please call. documented in this encounter Plan of Treatment Upcoming Encounters Date Type Department Care Team (Late st Contact Info) Description 10/07/2024 3:00 PM EST Office Visit Cardiology at [address] [place] [address] Joel Link MD [facility] [place] [address] 01/18/2025 10:15 AM EDT Office Visit Dermatology at [address] [place] [phone] Mathew Fernando MD [address] [facility] A DERMATOLOGY [place], [place] [phone] documented as of this encounter Visit Diagnoses Not on filedocumented in this encounter Care Teams Gas Turbine Powerplant Mechanic Helper Relationship Specialty Start Date End Date Blanco Myles MD [address] [place] [address] PCP - General Family Medicine 03/20/23 documented as of this encounter
--- OUTSIDE RECORDS SUMMARY | 2024-07-06 14:05 | XMS_ITS | Encounter Summary ---
Author Organization [facility] [place] [address] Care Team Providers Care Occasional Caregiver Name Role Phone Karo Otero MD Primary Care Provider [phone] Reason for Visit * Reason Comments Medication Refill acebutolol 200 mg ca p Encounter Details Date Type Department Care Team (Late st Contact Info) Description 07/05/2019 Refill Cardiology at [address] [phone] Mane Gonzalez MD [facility] [place] [address] Medication Refill (acebutolol 200 mg cap) Social [...] 3:00 PM EST Office Visit Cardiology at [address] [phone] Joel Link MD [facility] [place] [address] 01/18/2025 10:15 AM EDT Office Visit Dermatology at [place] [address] [place] [address] Mathew Fernando MD [address], [place] [address] documented as of this encounter Visit Diagnoses Diagnosis Essential hypertension Unspecified essential hypertension documented in this encounter Care Teams Occasional Caregiver Relationship Specialty Start Date End Date Karo Otero MD [address] [place] [address] PCP - General Family Medicine 02/11/17 03/19/23 documented as of this encounter
--- OUTSIDE RECORDS SUMMARY | 2024-07-06 14:05 | XMS_ITS | Encounter Summary ---
Author Organization [facility] [place] [address] Care Team Providers Care Tube Skiver Name Role Phone Karo Otero MD Primary Care Provider [phone] Reason for Visit * Reason Comments Coronary Artery Disease Ventricular Arrhythmia Ventricular Bigem iny Encounter Details Date Type Department Care Team (Latest Contact Info) Description 01/22/2022 10:00 AM EDT Office Visit Cardiology at [address] [phone] Joel Link MD [facility] [place] [address] Coronary artery disease involving [place] coronary artery of [place] heart without angina pectoris; ASCVD (arteriosclerotic cardiovascular [...] Rfl: ??? fluticasone propionate (FLONASE) 50 mcg/actuation [place], Suspension, 2 sprays by Each Nare route [...] PM EST Office Visit Cardiology at [address] [phone] 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
--- OUTSIDE RECORDS SUMMARY | 2024-07-06 14:05 | XMS_ITS | Encounter Summary ---
Author [facility] [place] [address] Care Team Providers Care Material Stress Tester Name Role Phone Blanco Myles MD Primary Care Provider [phone] Encounter Details Date Type Department Care Team (Late st Contact Info) Description 07/01/2023 Telephone Cardiology at [address] [phone] Bonnie Watson, RN Social History [...] 07/01/2023 1:25 PM EST [employer] 1940 [facility] Managed Medicare policy # [id number] Insurance PA phone call Sales Designer: Pattie Call Reference #: [id number] The CPT codes / tests will not require prior authorization because the ordering provider Dr. Vikki Link is out of network. Bonnie Watson RN 07/01/2023 documented in this encounter Plan of Treatment Upcoming Encounters Date Type Department Care Team (Late st Contact Info) Description 10/07/2024 3:00 PM EST Office Visit Cardiology at [address] [place] [phone] Joel Link MD [facility] [place] [address] 01/18/2025 10:15 AM EDT Office Visit Dermatology at [address] [place] [phone] Mathew Fernando MD [address] [facility], JAIRO Thomas DERMATOLOGY [place], [place] [address] documented as of this encounter Visit Diagnoses Not on filedocumented in this encounter Care Teams Material Stress Tester Relationship Specialty Start Date End Date Blanco Myles MD [address] [place] [address] PCP - General Family Medicine 03/20/23 documented as of this encounter
--- OUTSIDE RECORDS SUMMARY | 2024-07-06 14:05 | XMS_ITS | Encounter Summary ---
[place] [address] Care Team Providers Care Barrel Maker Name Role Phone Karo Otero MD Primary Care Provider [phone] Reason for Visit * Reason Comments Follow-up Encounter Details Date Type Department Care Team (Late st Contact Info) Description 09/18/2020 9:00 AM EST Procedure visit Dermatology at [address] [phone] Mathew Fernando MD [address] [facility] [place] [address] History of SCC (squamous cell carcinoma) of [...] PM EST Office Visit Cardiology at [address] [phone] [facility] [address] 01/18/2025 10:15 AM EDT Office Visit Dermatology at [address] [phone] Mathew Fernando MD [address] [place] [address], [facility] [address] documented as of this encounter Visit Diagnoses Diagnosis History of SCC (squamous cell carcinoma) of skin Personal history of other malignant neoplasm of skin History of basal cell carcinoma Personal history of other malignant neoplasm of skin documented in this encounter Care Teams Barrel Maker Relationship Specialty Start Date End Date Karo Otero MD [address] [place] [address] PCP - General Family Medicine 02/11/17 03/19/23 documented as of this encounter
--- OUTSIDE RECORDS SUMMARY | 2024-07-06 14:05 | XMS_ITS | Encounter Summary ---
Author Organization [facility] [place] [address] Care Team Providers Care Wire Puller Name Role Phone Karo Otero MD Primary Care Provider [phone] Encounter Details Date Type Department Care Team (Late Contact Info) Description 10/18/2019 Telephone Cardiology at [address] [phone] Joel Link MD [facility] [place] [address] Social History Tobacco Use Types Packs/Day Years [...] 3:00 PM EST Office Visit Cardiology at [address] [phone] Joel Link MD [facility] [place] [address] 01/18/2025 10:15 AM EDT Office Visit Dermatology at [address] [place] [phone] Mathew Fernando MD [address] [place] [address] RD, [place] [address] documented as of this encounter Visit Diagnoses Not on filedocumented in this encounter Care Teams Wire Puller Relationship Specialty Start Date End Date Karo Otero MD [address] [place] [address] PCP - General Family Medicine 02/11/17 03/19/23 documented as of this encounter
--- OUTSIDE RECORDS SUMMARY | 2024-07-06 14:05 | XMS_ITS | Encounter Summary ---
Author Organization [facility] Address [facility] [place] [address] Care Team Providers Care Upper Cutter Machine Name Role Phone Karo Otero MD Primary Care Provider Reason for Visit * Reason Comments Coronary Artery Disease Cardiomyopathy Ventricular Arrhythmia on sectral Encounter Details Date Type Department Care Team (Late st Contact Info) Description 07/19/2020 10:20 AM EST Office Visit Cardiology at [address] [phone] Joel Link MD [facility] [place] [address] Ventricular bigeminy; Coronary artery disease involving [place] coronary artery of [place] heart without angina pectoris Social History Tobacco [...] Rfl: ??? fluticasone propionate (FLONASE) 50 mcg/actuation [place], Suspension, 2 sprays by Each Nare route [...] eyes Added automatically from request for surgery [id number] ??? Ventricular bigeminy ??? Cardiomyopathy, ischemic 11/2017: [...] 3 (moderate) ??? Coronary artery disease involving [place] coronary artery of [place] heart 11/2017: mild diffuse LM and RCA, [...] with holding sectral Coronary artery disease involving [place] coronary artery of [place] heart No angina per history. - Anti-Thrombosis: [...] PM EST Office Visit Cardiology at [address] [phone] Joel Link MD [facility] [place] [address] 01/18/2025 10:15 AM EDT Office Visit Dermatology at [address] [phone] Mathew Fernando MD [address] [place] [address], [facility] [place] [address] documented as of this encounter Visit Diagnoses Diagnosis Ventricular bigeminy Other specified cardiac dysrhythmias Coronary artery disease involving [place] coronary artery of [place] heart without angina pectoris documented in this encounter Care Teams Upper Cutter Machine Relationship Specialty Start Date End Date Karo Otero MD [address] [place] [address] PCP - General Family Medicine 02/11/17 03/19/23 documented as of this encounter
--- OUTSIDE RECORDS SUMMARY | 2024-07-06 14:05 | XMS_ITS | Encounter Summary ---
Author Organization [facility] [place] [address] Care Team Providers Care Seed Packer Name Role Phone Karo Otero MD Primary Care Provider [phone] Reason for Visit * Reason Onset Date Comments Medication Refill 07/01/2019 Encounter Details Date Type Department Care Team (Late Contact Info) Description 07/01/2019 Refill Cardiology at [address] [phone] Joel Link MD [facility] [address] Medication Refill Social History Tobacco Use Types [...] 3:00 PM EST Office Visit Cardiology at [address] [phone] Joel Link MD [facility] [place] [address] 01/18/2025 10:15 AM EDT Office Visit Dermatology at [address] [address] Mathew Fernando MD [address], [place] [address] documented as of this encounter Visit Diagnoses Diagnosis Essential hypertension Unspecified essential hypertension documented in this encounter Care Teams Seed Packer Relationship Specialty Start Date End Date Karo Otero MD [address] [place] [address] PCP - General Family Medicine 02/11/17 03/19/23 documented as of this encounter
--- OUTSIDE RECORDS SUMMARY | 2024-07-06 14:05 | XMS_ITS | Encounter Summary ---
Author Organization [facility] [place] [address] Care Team Providers Care Security Tester Name Role Phone Karo Otero MD Primary Care Provider [phone] Reason for Visit * Reason Comments Dizziness Encounter Details Date Type Department Care Team (Late st Contact Info) Description 06/19/2020 7:00 PM EST Ext Surgery or Single Event Cardiology at [address] [phone] Joel Link MD [facility] [place] [place] [address] Dizziness Social History Tobacco Use Types Packs/Day [...] PM EST Office Visit Cardiology at [address] [phone] Joel Link MD [facility] [place] [place] [address] 01/18/2025 10:15 AM EDT Office Visit Dermatology at [address] [place] [phone] Mathew Fernando MD [address], [place] [address] documented as of this encounter Procedures Procedure Name Priority Date/Time Associated Diagnosis Comments HOLTER MONITOR 48 HOUR Routine 06/20/2020 Dizziness PHARMACY OPERATIONS SPECIALIST SCAN 05/19/2020 12:00 AM EDT documented in this encounter Results * Holter Monitor 48hr (06/20/2020) Anatomical Region Laterality Modality Other Narrative 06/20/2020 Location: ??[facility] Referring: Nikolay Indication: ??lightheadedness Duration of recording [...] CARDIAC SERVICES ORD ERABLES * SCAN DOC: PHARMACY OPERATIONS SPECIALIST (05/19/2020 12:00 AM EDT) Anatomical Region Laterality Modality Other Narrative 05/19/2020 12:00 AM EDT Ordered by an unspecified provider. Scanning Provider MEDIA MGR SCAN EXT O RDR/RSLT documented in this encounter Visit Diagnoses Diagnosis Dizziness Dizziness and giddiness documented in this encounter Care Teams Security Tester Relationship Specialty Start Date End Date Karo Otero MD [address] [place] [address] PCP - General Family Medicine 02/11/17 03/19/23 documented as of this encounter
--- OUTSIDE RECORDS SUMMARY | 2024-07-06 14:05 | XMS_ITS | Encounter Summary ---
Author Organization [facility] [place] [address] Care Team Providers Care Roofer Helper Vinyl Coating Name Role Phone Karo Otero MD Primary Care Provider [phone] Encounter Details Date Type Department Care Team (Late st Contact Info) Description 01/14/2023 Refill Dermatology at [address] [phone] Shana Lowe, CONSULTING SOFTWARE ENGINEER Social History Tobacco Use Types Packs/Day Years [...] PM EST Office Visit Cardiology at [address] [phone] Joel Link MD [facility] [place] [address] 01/18/2025 10:15 AM EDT Office Visit Dermatology at [address] [phone] Mathew Fernando MD [address] [place] [address], [facility] [place] [address] documented as of this encounter Visit Diagnoses Not on filedocumented in this encounter Care Teams Roofer Helper Vinyl Coating Relationship Specialty Start Date End Date Karo Otero MD [address] [place] [address] PCP - General Family Medicine 02/11/17 03/19/23 documented as of this encounter
--- OUTSIDE RECORDS SUMMARY | 2024-07-06 14:05 | XMS_ITS | Encounter Summary ---
[place] [address] Care Team Providers Care Trouble Clerk Name Role Phone Karo Otero MD Primary Care Provider [phone] Reason for Visit * Reason Comments Skin Check Encounter Details Date Type Department Care Team (Late st Contact Info) Description 08/31/2020 10:00 AM EST Office Visit Dermatology at [address] [phone] Mathew Fernando MD 580 [facility], [place] [address] History of SCC (squamous cell carcinoma) of [...] ??History of extensive sun exposure living in [place] 3. ??History of BCCA's right upper back treated in [place] 4. ??Status post course of imiquimod cream [...] PM EST Office Visit Cardiology at [address] [phone] Joel Link MD [facility] [place] [address] 01/18/2025 10:15 AM EDT Office Visit Dermatology at [address] [address] Mathew Fernando MD [address] [place] [address], [facility] [place] [address] documented as of this encounter Visit Diagnoses Diagnosis History of SCC (squamous cell carcinoma) of skin Personal history of other malignant neoplasm of skin History of basal cell carcinoma Personal history of other malignant neoplasm of skin AK (actinic keratosis) Actinic keratosis documented in this encounter Care Teams Trouble Clerk Relationship Specialty Start Date End Date Karo Otero MD [address] [place] [address] PCP - General Family Medicine 02/11/17 03/19/23 documented as of this encounter
--- OUTSIDE RECORDS SUMMARY | 2024-07-06 14:05 | XMS_ITS | Encounter Summary ---
Author Organization Formerly [facility], [facility] Address [facility] [place] [address] Care Team Providers Care Dairy Processing Supervisor Name Role Phone Karo Otero MD Primary Care Provider [phone] Reason for Visit * Reason Comments Other ventricular bigeminy Encounter Details Date Type Department Care Team (Late st Contact Info) Description 10/18/2019 10:20 AM EST Office Visit Cardiology at [address] [phone] Joel Link MD [facility] [place] [address] Coronary artery disease involving coushatta coronary artery of coushatta heart without angina pectoris; Ventricular bigeminy Social [...] [facility], Cardiology [address] [address] Subjective: Patient ID: Tra [id number] III (Tony) [...] 3 (moderate) ??? Coronary artery disease involving coushatta coronary artery of coushatta heart 11/2017: mild diffuse LM and RCA, [...] Assessment and Plan: Coronary artery disease involving coushatta coronary artery of cous[place]ta heart No angina per history - Anti-Thrombosis: [...] PM EST Office Visit Cardiology at [address] [place] [phone] Joel Link MD [facility] [place] [address] 01/18/2025 10:15 AM EDT Office Visit Dermatology at [place] [address] [facility] [place] [address] Mathew Fernando MD [address] [facility] [address], [place] [address] documented as of this encounter Procedures Procedure [...] (Bezet) 429 ms MUSE SYSTEM Calculated P [place] 73 degrees MUSE SYSTEM Calculated R [place] -20 degrees MUSE SYSTEM Calculated T [place] 18 degrees MUSE SYSTEM INTERPRETATION Sinus bradycardia with 1st degree A-V block Minimal voltage criteria for LVH, may be normal variant Borderline ECG When compared with ECG of 07-JUN-2019 11:44, No significant change was found Confirmed by MD Nikolay, Joel ([id number]) on 10/21/2019 1:40:51 PM MUSE SYSTEM 10/18/2019 10:3 6 AM EST 10/21/2019 1:40 PM EST Unknown ECG ORDERABLES MUSE SYSTEM documented in this encounter Visit Diagnoses Diagnosis Coronary artery disease involving coushatta coronary artery of coushatta heart without angina pectoris Ventricular bigeminy Other specified cardiac dysrhythmias documented in this encounter Care Teams Dairy Processing Supervisor Relationship Specialty Start Date End Date Karo Otero MD [address] [place] [address] PCP - General Family Medicine 02/11/17 03/19/23 documented as of this encounter
--- OUTSIDE RECORDS SUMMARY | 2024-07-06 14:06 | XMS_ITS | Encounter Summary ---
[place] [address] Care Team Providers Care Cut Out Operator Name Role Phone Karo Otero MD Primary Care Provider [phone] Reason for Visit * Reason Comments Follow-up Encounter Details Date Type Department Care Team (Late st Contact Info) Description 08/14/2017 8:45 AM EST Office Visit Dermatology at [place] [address] [facility] [place] [address] Mathew Fernando MD 580 [facility], [facility] [place] [address] History of SCC (squamous cell carcinoma) of skin; History of basal cell carcinoma Social History Tobacco Use Types Packs/Day Years Used Date Smoking Tobacco: Former Sex and Gender Information Value Date Recorded Sex Assigned at Not on file Gender Identity Not on file Sexual Orientation Not on file documented as of this encounter Progress Notes * Mahtew Fernando MD - 08/14/2017 8:45 AM EST PROBLEM: 1. Followup imiquimod cream therapy February through April 2017. 2. History of 2 BCCAs of right upper back treated by a [place] support teacher about 2006. Erwin follows up after 2 [...] PM EST Office Visit Cardiology at [address] [phone] Joel Link MD [facility] [address] 01/18/2025 10:15 AM EDT Office Visit Dermatology at [address] [phone] Mathew Fernando MD [address] [place] [address], [facility] [place] [place] [address] documented as of this encounter Visit Diagnoses Diagnosis History of SCC (squamous cell carcinoma) of skin Personal history of other malignant neoplasm of skin History of basal cell carcinoma Personal history of other malignant neoplasm of skin documented in this encounter Care Teams Cut Out Operator Relationship Specialty Start Date End Date Karo Otero MD [address] [place] [address] PCP - General Family Medicine 02/11/17 03/19/23 documented as of this encounter
--- OUTSIDE RECORDS SUMMARY | 2024-07-06 14:06 | XMS_ITS | Encounter Summary ---
Author Organization Formerly [facility] [place] [address] Care Team Providers Care Pepper Picker Name Role Phone Karo Otero MD Primary Care Provider [phone] Reason for Visit * Reason Comments Medication Refill Encounter Details Date Type Department Care Team (Late st Contact Info) Description 02/27/2019 Refill Cardiology at [address] [phone] Lara Aguero APRN [facility] [place] [address] Medication Refill Social History Tobacco Use Types [...] PM EST Office Visit Cardiology at [address] [place] [phone] Joel Link MD [facility] [place] [address] 01/18/2025 10:15 AM EDT Office Visit Dermatology at [address] [place] [address] Mathew Fernando MD 580 [facility] ZECHARIAH, JAIRO [place] [address] documented as of this encounter Visit Diagnoses Not on filedocumented in this encounter Care Teams Pepper Picker Relationship Specialty Start Date End Date Karo Otero MD [address] [place] [address] PCP - General Family Medicine 02/11/17 03/19/23 documented as of this encounter
--- OUTSIDE RECORDS SUMMARY | 2024-07-06 14:06 | XMS_ITS | Encounter Summary ---
[place] [address] Care Team Providers Care Hr Shared Services Consultant Name Role Phone Karo Otero MD Primary Care Provider [phone] Reason for Visit * Reason Comments Establish Care Had RI and stent in november. [place] Encounter Details Date Type Department Care Team (Late st Contact Info) Description 12/30/2017 8:20 AM EDT Office Visit Cardiology at [address] [phone] Sukh Mishra Jr., MD [address] [place] [address] Hyperlipidemia, unspecified hyperlipidemia type; Non-ST elevation myocardial [...] Complaint Patient presents with ??? Follow-up Had RI and stent in november. Doing cardiac rehab in [facility] He has had rare fleeting chest pain [...] benign Ext no edema EKG: SB 52, SD 248, no ST/T change Assessment and Plan: [...] PM EST Office Visit Cardiology at [address] [place] [address] Joel Link MD [facility] [place] [address] 01/18/2025 10:15 AM EDT Office Visit Dermatology at [address] [place] [address] Mathew Fernando MD [address] [place] [address], [facility] DERMATOLOGY [place], [place] [phone] documented as of this encounter Procedures Procedure [...] dysrhythmias documented in this encounter Care Teams Hr Shared Services Consultant Relationship Specialty Start Date End Date Krao Otero MD [address] [place] [address] PCP - General Family Medicine 02/11/17 03/19/23 documented as of this encounter
--- OUTSIDE RECORDS SUMMARY | 2024-07-06 14:06 | XMS_ITS | Encounter Summary ---
Author Organization [facility], [facility]ated [facility] [place] [address] Care Team Providers Care Family Resource Coordinator Name Role Phone Karo Otero MD Primary Care Provider [phone] Encounter Details Date Type Department Care Team (Latest Contact Info) Description 04/21/2019 Interpretation Only Cardiology at [address] [place] [address] Joel Link MD [facility] [place] [address] Cardiomyopathy, ischemic Social History Tobacco Use Types [...] PM EST Office Visit Cardiology at [address] [place] [phone] Joel Link MD [facility] [address] 01/18/2025 10:15 AM EDT Office Visit Dermatology at [address] [place] [address] Mathew Fernando MD [address] [facility] [address], [place]ENNEN A [place], [place] [phone] documented as of this encounter Visit Diagnoses Diagnosis Cardiomyopathy, ischemic Other specified forms of chronic ischemic heart disease documented in this encounter Care Teams Family Resource Coordinator Relationship Specialty Start Date End Date Karo Otero MD [address] [place] [address] PCP - General Family Medicine 02/11/17 03/19/23 documented as of this encounter
--- OUTSIDE RECORDS SUMMARY | 2024-07-06 14:06 | XMS_ITS | Encounter Summary ---
Author Organization [facility] [place] [address] Care Team Providers Care Pipe And Test Supervisor Name Role Phone Karo Otero MD Primary Care Provider [phone] Encounter Details Date Type Department Care Team (Late st Contact Info) Description 04/21/2019 Telephone Cardiology at [address] [address] Joel Link MD [facility] [place] [address] Social History Tobacco Use Types Packs/Day Years [...] 3:00 PM EST Office Visit Cardiology at [address] [phone] Joel Link MD [facility] [place] [address] 01/18/2025 10:15 AM EDT Office Visit Dermatology at [address] [phone] Mathew Fernando MD [address] [place] [address], [facility] [place] [address] documented as of this encounter Visit Diagnoses Not on filedocumented in this encounter Care Teams Pipe And Test Supervisor Relationship Specialty Start Date End Date Karo Otero MD [address] [place] [address] PCP - General Family Medicine 02/11/17 03/19/23 documented as of this encounter
--- OUTSIDE RECORDS SUMMARY | 2024-07-06 14:06 | XMS_ITS | Encounter Summary ---
Author Organization Formerly [facility] [place] [address] Care Team Providers Care Singing Teacher Name Role Phone Karo Otero MD Primary Care Provider [phone] Reason for Visit * Reason Comments Medication Refill Encounter Details Date Type Department Care Team (Late st Contact Info) Description 03/30/2019 Refill Cardiology at [address] [phone] Lara Aguero APRN [facility] [place] [address] Medication Refill Social History Tobacco Use Types [...] PM EST Office Visit Cardiology at [address] [place] [phone] Joel Link MD [facility] [place] [address] 01/18/2025 10:15 AM EDT Office Visit Dermatology at [address] [place] [address] Mathew Fernando MD 580 [facility] ZECHARIAH, JAIR[place] [address] documented as of this encounter Visit Diagnoses Not on filedocumented in this encounter Care Teams Singing Teacher Relationship Specialty Start Date End Date Karo Otero MD [address] [place] [address] PCP - General Family Medicine 02/11/17 03/19/23 documented as of this encounter
--- OUTSIDE RECORDS SUMMARY | 2024-07-06 14:06 | XMS_ITS | Encounter Summary ---
[place] [address] Care Team Providers Care Range Examiner Name Role Phone Karo Otero MD Primary Care Provider [phone] Reason for Visit * Reason Comments Follow-up Skin Check Encounter Details Date Type Department Care Team (Late st Contact Info) Description 08/25/2018 10:30 AM EST Office Visit Dermatology at [address] [address] Mathew Fernando MD 580 [facility], [place] [address] History of SCC (squamous cell carcinoma) of [...] History of extensive sun exposure living in [place] 3. History of BCCA's right upper back treated in [place] 4. 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 He unfortunately did have a an ID in November and brokehis leg in December. [...] recurrence at the back treatment sites from [place]. Assessment plan: Actinic keratosis facial [address]. LN [...] PM EST Office Visit Cardiology at [address] [phone] Joel Link MD [facility] [place] [address] 01/18/2025 10:15 AM EDT Office Visit Dermatology at [address] [phone] Mathew Fernando MD [address] [place] [address], [facility] [place] [address] documented as of this encounter Visit Diagnoses Diagnosis History of SCC (squamous cell carcinoma) of skin Personal history of other malignant neoplasm of skin History of basal cell carcinoma Personal history of other malignant neoplasm of skin AK (actinic keratosis) Actinic keratosis documented in this encounter Care Teams Range Examiner Relationship Specialty Start Date End Date Karo Otero MD [address] [place] [address] PCP - General Family Medicine 02/11/17 03/19/23 documented as of this encounter
--- OUTSIDE RECORDS SUMMARY | 2024-07-06 14:06 | XMS_ITS | Encounter Summary ---
[place] [address] Care Team Providers Care Wan Support Specialist Name Role Phone Karo Otero MD Primary Care Provider [phone] Reason for Visit * Reason Comments Follow-up Encounter Details Date Type Department Care Team (Late st Contact Info) Description 03/06/2017 2:45 PM EDT Office Visit Dermatology at [address] [place] [address] Mathew Fernando MD 580 [facility], [place] [address] History of SCC (squamous cell carcinoma) of [...] PM EST Office Visit Cardiology at [address] [phone] Joel Link MD [facility] [place] [address] 01/18/2025 10:15 AM EDT Office Visit Dermatology at [address] [phone] Mathew Fernando MD [address] [place] [address], [place] [address] documented as of this encounter Visit Diagnoses Diagnosis History of SCC (squamous cell carcinoma) of skin Personal history of other malignant neoplasm of skin documented in this encounter Care Teams Wan Support Specialist Relationship Specialty Start Date End Date Karo Otero MD [address] [place] [address] PCP - General Family Medicine 02/11/17 03/19/23 documented as of this encounter
--- OUTSIDE RECORDS SUMMARY | 2024-07-06 14:06 | XMS_ITS | Encounter Summary ---
Author Organization [facility] [place] [address] Care Team Providers Care Dynamics Ax Technical Architect Name Role Phone Karo Otero MD Primary Care Provider [phone] Encounter Details Date Type Department Care Team (Latest Contact Info) Description 01/07/2018 - 01/07/2018 12:04 AM EDT Hospital Encounter Radiology Library at [facility] [place] [address] Mauricio Schroeder MD [facility] [place] [address] Discharge Disposition: Home Social History Tobacco Use [...] PM EST Office Visit Cardiology at [address] [phone] Joel Link MD [facility] [place] [address] 01/18/2025 10:15 AM EDT Office Visit Dermatology at [address] [place] [address] Mathew Fernando MD 580 [facility], [facility] DERMATOLOGY [place], [place] [phone] documented as of this encounter Procedures Procedure [...] Schroeder MD IMG FILM LIBRARY ORD ERABLES [place], [place] documented in this encounter Visit Diagnoses Not on filedocumented in this encounter Care Teams Dynamics Ax Technical Architect Relationship Specialty Start Date End Date Karo Otero MD [address] [place] [address] PCP - General Family Medicine 02/11/17 03/19/23 documented as of this encounter
--- OUTSIDE RECORDS SUMMARY | 2024-07-06 14:06 | XMS_ITS | Encounter Summary ---
Author Organization [facility] [place] [address] Care Team Providers Care Inside Sales Account Executive Name Role Phone Karo Otero MD Primary Care Provider [phone] Encounter Details Date Type Department Care Team (Late st Contact Info) Description 04/21/2019 4:40 PM EDT Interpretation Only [address] [place] [phone] Joel Link MD [facility] [place] [address] Social History Tobacco Use Types Packs/Day Years [...] PM EST Office Visit Cardiology at [address] [place] [address] Joel Link MD [facility] [place] [address] 01/18/2025 10:15 AM EDT Office Visit Dermatology at [address] [place] [address] Mathew Fernando MD [address] [facility] [address], BRENNEN [place] [address] documented as of this encounter Procedures Procedure [...] on filedocumented in this encounter Care Teams Inside Sales Account Executive Relationship Specialty Start Date End Date Karo Otero MD [address] [place] [address] PCP - General Family Medicine 02/11/17 03/19/23 documented as of this encounter
--- OUTSIDE RECORDS SUMMARY | 2024-07-06 14:06 | XMS_ITS | Encounter Summary ---
[place] [address] Care Team Providers Care Carriage Feeder Name Role Phone Karo Otero MD Primary Care Provider [phone] Encounter Details Date Type Department Care Team (Late st Contact Info) Description 11/18/2017 [place] [phone] Phan Ken MD [facility] [place] [address] Social History Tobacco Use Types Packs/Day Years [...] PM Referring Provider: Dr. Nieves Patient Location: [facility] Presenting Symptoms per OSH: 76 yo M [...] examine the patient myself. Phan Ken MD Wireless Network Engineer Pager [phone] documented in this encounter Plan of Treatment Upcoming Encounters Date Type Department Care Team (Late st Contact Info) Description 10/07/2024 3:00 PM EST Office Visit Cardiology at [address] [phone] Joel Link MD [facility] [place] [address] 01/18/2025 10:15 AM EDT Office Visit Dermatology at [address] [phone] Mathew Fernando MD [address] [place] [address], [facility] [place] [place] [address] documented as of this encounter Visit Diagnoses Not on filedocumented in this encounter Care Teams Carriage Feeder Relationship Specialty Start Date End Date Karo Otero MD [address] [place] [address] PCP - General Family Medicine 02/11/17 03/19/23 documented as of this encounter
--- OUTSIDE RECORDS SUMMARY | 2024-07-06 14:06 | XMS_ITS | Encounter Summary ---
Author Organization [facility] [place] [address] Care Team Providers Care Risk Intern Name Role Phone Karo Otero MD Primary Care Provider [phone] Encounter Details Date Type Department Care Team (Late st Contact Info) Description 03/29/2019 External Results Cardiology at [address] [address] Myranda Arnold RN Social History [...] PM EST Office Visit Cardiology at [address] [phone] Joel Link MD [facility] [place] [address] 01/18/2025 10:15 AM EDT Office Visit Dermatology at [address] [phone] Mathew Fernando MD [address] [place] [address], [place] [address] documented as of this encounter Procedures Procedure Name Priority Date/Time Associated Diagnosis Comments EXTERNAL LIPID LAB RESULTS PANEL Routine 09/02/2018 documented in this encounter Results * Lipid External Results (09/02/2018) Cholesterol, Total 120 HDL Cholesterol 57 LDL Cholesterol 55 Triglyceride 56 Historical Provider POINT OF CARE JOEY T ORDERABLES documented in this encounter Visit Diagnoses Not on filedocumented in this encounter Care Teams Risk Intern Relationship Specialty Start Date End Date Karo Otero MD [address] [place] [address] PCP - General Family Medicine 02/11/17 03/19/23 documented as of this encounter
--- OUTSIDE RECORDS SUMMARY | 2024-07-06 14:06 | XMS_ITS | Encounter Summary ---
Author Organization [facility] [place] [address] Care Team Providers Care Fractionating Still Operator Name Role Phone Karo Otero MD Primary Care Provider [phone] Reason for Visit * Reason Comments Medication Refill Encounter Details Date Type Department Care Team (Late st Contact Info) Description 11/19/2018 Refill Cardiology at [address] [address] Lara Aguero APRN [facility] [place] [address] Medication Refill Social History Tobacco Use Types [...] PM EST Office Visit Cardiology at [address] [place] [phone] Joel Link MD [facility] [place] [address] 01/18/2025 10:15 AM EDT Office Visit Dermatology at [address] [place] [address] Mathew Fernando MD 580 [facility] ZECHARIAH, JAIRO [place] [address] documented as of this encounter Visit Diagnoses Not on filedocumented in this encounter Care Teams Fractionating Still Operator Relationship Specialty Start Date End Date Karo Otero MD [address] [place] [address] PCP - General Family Medicine 02/11/17 03/19/23 documented as of this encounter
--- OUTSIDE RECORDS SUMMARY | 2024-07-06 14:06 | XMS_ITS | Encounter Summary ---
[place] [address] Care Team Providers Care Microstrategy Reports Developer Name Role Phone Karo Otero MD Primary Care Provider Reason for Visit * Reason Comments Follow-up 6 month f/u HTN, Hyp erlipidemia, CAD, no complaints except dry mouth Encounter Details Date Type Department Care Team (Late st Contact Info) Description 10/06/2018 9:40 AM EST Office Visit Cardiology at [address] [phone] Sukh Mishra Jr., MD [address] [place] [id number] Hyperlipidemia, unspecified hyperlipidemia type; Essential hypertension; ASCVD [...] PM EST Office Visit Cardiology at [address] [phone] Joel Link MD [facility] [address] 01/18/2025 10:15 AM EDT Office Visit Dermatology at [address] [place] [phone] Mathew Fernando MD [address] [place] [address], [facility] DERMATOLOGY [place], [place] [id number] documented as of this encounter Visit Diagnoses Diagnosis Hyperlipidemia, unspecified hyperlipidemia type Essential hypertension Unspecified essential hypertension ASCVD (arteriosclerotic cardiovascular disease) Unspecified cardiovascular disease documented in this encounter Care Teams Microstrategy Reports Developer Relationship Specialty Start Date End Date Karo Otero MD [address] [place] [address] PCP - General Family Medicine 02/11/17 03/19/23 documented as of this encounter
--- OUTSIDE RECORDS SUMMARY | 2024-07-06 14:06 | XMS_ITS | Encounter Summary ---
Author Organization [facility] [place] [address] Care Team Providers Care Manager Foreign Name Role Phone Karo Otero MD Primary Care Provider [phone] Reason for Referral * Consultation (Routine) - Specialty Diagnoses / Procedures Referred By Contact Referred To Contact Cardiac Rehabilitation Diagnoses Non-ST elevation myocardial infarction (NSTEMI) Dick Renteria MD [facility] [place] [address] Cardiac Rehab, [address] [place] [address] Referral ID Status Reason Start Date Expiration Date V isits Requested Visits Authorized [id number] Consult, Test & Treat 11/20/2017 05/19/2018 36 36 Reason for Visit * Auth/Cert Specialty Diagnoses / Procedures Referred By Contac t Referred To Contact Diagnoses NSTEMI (non-ST elevated myocardial infarction) [place], CP ?CAD Procedures CARDIAC CATHETERIZATION PHOEBE IPI Referral ID Status Reason Start Date Expiration Date Visits Re quested Visits Authorized [id number] 1 1 Encounter Details Date Type Department Care Team (Latest Contact Info) Description 11/18/2017 8:11 PM EDT - 11/20/2017 10:59 AM EDT Hospital Encounter Intermediate [place] [id number] Sumeet Chiang MD [facility] [place] [address] Dick Renteria MD [facility] [place] [address] Non-ST elevation myocardial infarction (NSTEMI) Discharge Disposition: [...] Brothers III Patient Age: 76 y.o. Language: Syriac Race: White Ethnicity: OR Admit date: 11/18/2017 [...] synthroid Inpatient Provider Contact Information: Lara Bass, SKATES OPERATOR Discharge Diagnoses (Hospital Problems) and Secondary Diagnoses [...] more information.) ? History of Presentation: Mr. Brothesr is a 76-year-old gentleman, transferred from [facility], with no known CAD, PMH of [...] course: ECG : NSR, normal axis, prolonged NJ, J-point elevation in V2 less than 1mm. [...] and Echo 5 yrs ago ( in [place] ), tests done prior to Knee Hemiarthroplasty ?? Hospital Course: On admission to [facility], the patient had no complaints of chest pain or shortness of breath. Telemetry was attached which showed normal sinus rhythm. Heparin drip was infusing. [facility] records/transfer records were reviewed. Baseline labs were checked and/or drawn. NSTEMI Patient sent from [facility] in the setting of chest pain [...] appointments: During 8am-5pm Friday through Friday call [phone] to speak with a nurse in the cardiology clinic All other times call [phone] and ask to speak to the tow feeder boston cutter. Return to work: Retired, no heavy lifting for one week (nothing greater than 5-7 lbs). Driving: No driving for 48 hours after catheterization. Follow up Appointments: PCP Karo Otero MD [phone] Your follow up appointment is scheduled for November 26, 2017 at 10:35 am (previously scheduled) Cardiology - Dr. Sukh Mishra [address] [place] [address], [place] [address] Your follow up appointment is scheduled for December 30, 2017 at 8:20 am (8 am arrival). Home oxygen therapy: N/A Arrangements for VNA/home care: none Future Appointments and Orders Future Appointments Provider Department Dept Phone 12/30/2017 8:20 AM Sukh Mishra Jr., MD Cardiology at [place] [phone] 08/14/2018 8:45 AM Mathew Fernando MD Dermatology at [place] [phone] Future Orders Complete By Expires Referral to Cardiac Rehab [[id number] Custom] As directed Process Instructions: If no progress note charted, please enter Clinical details in comments. Scheduling Instructions: Questions: My question or request is: NSTEMI. Cardiac rehab at [facility]. Discharge References/Attachments Jasmin Bass APRN 11/20/2017 [...] appointments: During 8am-5pm Friday through Friday call [phone] to speak with a nurse in the cardiology clinic All other times call [phone] and ask to speak to the tow feeder boston cutter. Return to work: Retired, no heavy lifting for one week (nothing greater than 5-7 lbs). Driving: No driving for 48 hours after catheterization. Follow up Appointments: PCP Karo Otero MD [phone] Your follow up appointment is scheduled for November 26, 2017 at 10:35 am (previously scheduled) Cardiology - Dr. Sukh Mishra [address] [place] [address], [place] [address] Your follow up appointment is scheduled for [...] included. Inpatient Cardiology Progress Note Patient Name: [facility] Service: RAILS DEVELOPER / PA Responsible Attending: Dick Renetria MD Reason for continued hospitalization: Evaluation and [...] ??? sodium chloride 0.9% 100 mL/hr (11/18/17 3926) PRN Meds:sodium chloride 0.9 %, lidocaine, sodium [...] is a 76 y.o. male transferred from [facility], with no known CAD, PMH of hypertension, HLD, CKD stage 3 who was transferred to [facility] in the setting of chest pain with elevated troponin. EKG without acute changes. He has had no further episodes since arrival to [facility]. Patient sent for coronary angiography on 11/19 [...] Discussed with Dick Renteria MD Lara Waggonerleena, SKATES OPERATOR 11/20/2017 Cardiology Staff Addendum I have discussed, [...] PCI with 3.0 x 15 mm Resolute [place] JENNI No significant disease in RCA LVEDP [...] Note Patient Name: Tra Brothers III Service: RAILS DEVELOPER / PA Responsible Attending: Dick Renteria MD [...] been chest pain free since arrival to [facility]. NPO for cardiac catheterization today. Review of [...] is a 76 y.o. male transferred from [facility], with no known CAD, PMH of hypertension, HLD, CKD stage 3 who was transferred to [facility] in the setting of chest pain with elevated troponin. EKG without acute changes. He has had no further episodes since arrival to [facility]. Awaiting cardiac catheterization at this time. Plan: [...] Pre- cath fluids Full Code Lara Bass, SKATES OPERATOR 11/19/2017 Cardiology Staff Addendum I have discussed, [...] Brothers is a 76-year-old gentleman, transferred from [facility], with no known CAD, PMH of [...] course: ECG : NSR, normal axis, prolonged NJ, J-point elevation in V2 less than 1mm. 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 Pulses palpable, no calf tenderness Neuro/AGENT BROKER: AAO x 3, No evident deficits Skin/Integumentary: [...] responsive. ECG : NSR, normal axis, prolonged NJ, J-point elevation in V2 less than 1mm. [...] a referral for outpatient cardiac rehab at [facility]. The referral will be sent to [facility] at discharge. Activity Summary: By discharge, [...] Outcome: Ongoing (Interventions Implemented as Appropriate) 11/20/17 6789 Individualization Patient Specific Goals I need some [...] for doing Advance Directives. Provided copy(ies) of [place] [employer] Advance Directives Taking Steps booklet [...] Specific Information: none Health/Prescription Coverage: Primary Insurance: [employer] MANAGED MEDICARE Secondary Insurance: N/A Prescription Coverage: yes Preferred Pharmacy: [facility] Primary Care Provider: Karo Otero MD [phone] Patient/Caregiver Goals of Treatment: discharge to home [...] of care planning. Susana Henning RN Pager: [phone] * Consult Note - Medina Krueger RN [...] in an outpatient cardiac rehabilitation program at [facility] was discussed. Patient agrees to a [...] further details. Reagan Andrea MD 11/18/2017 Pager [phone] documented in this encounter Plan of Treatment Upcoming Encounters Date Type Department Care Team (Late st Contact Info) Description 10/07/2024 3:00 PM EST Office Visit Cardiology at [address] [place] [phone] Joel Link MD [facility] [place] [address] 01/18/2025 10:15 AM EDT Office Visit Dermatology at [address] [place] [phone] Mathew Fernando MD [address] [place] [address], [place] [address] Scheduled Referrals Name Type Priority Associated Diagnoses Orde r Schedule Referral to Cardiac Rehab Outpatient Referral Routine Non-ST elevation myocardial infarction (NSTEMI) Ordered: 11/20/2017 documented as of this encounter Procedures Procedure Name Priority Date/Time Associated Diagnosis Comments THERMOPLASTIC TECHNICIAN SCAN 11/21/2017 12:00 AM EDT BMP W/FASTING GLUCOSE Routine 11/20/2017 4:22 AM EDT HEMOGRAM Routine 11/20/2017 4:22 AM EDT DIFFERENTIAL, AUTOMATED Routine 11/21/19 4:22 AM EDT CARDIAC ENZYMES ([facility]) Routine 11/20/2017 4:22 AM EDT CBC (WITH [...] Routine 11/19/2017 8:39 AM EDT CARDIAC ENZYMES ([facility]) STAT 11/19/2017 8:39 AM EDT XR CHEST [...] 11/19/19 18 8:33 PM EDT CARDIAC ENZYMES ([facility]) STAT 11/18/2017 8:33 PM EDT APTT STAT [...] in this encounter Results * SCAN DOC: THERMOPLASTIC TECHNICIAN (11/21/2017 12:00 AM EDT) Anatomical Region [...] Aguero APRN CHEMISTRY ORDERABLES Performing Organization Address City/[facility]/ZIP Co de Phone Number [facility] [place] [address] * T3, free (11/20/2017 4:22 AM EDT) Free T3 2.6 2.0 - 4.4 pg/mL [facility] Blood specimen (specimen) Venous Draw / Unknown 11/20/2017 4:22 AM EDT 11/20/2017 4:39 AM EDT Narrative Resulting Agency Comment Spec In Lab Lara Natalie Aguero APRN CHEMISTRY ORDERABLES Performing Organization Address City/[facility]/ZIP Co de Phone Number [facility] [place] [address] * (ABNORMAL) TSH (11/20/2017 4:22 AM EDT) Thyroid Stimulating Hormone 6.29(H) 0.27 - 4.20 mlU/ML [facility] Blood specimen (specimen) Venous Draw / Unknown 11/20/2017 4:22 AM EDT 11/20/2017 4:39 AM EDT Narrative Resulting Agency Comment Spec In Lab Lara Aguero SKATES OPERATOR CHEMISTRY ORDERABLES [facility] [place] [address] * Differential, Automated (11/20/2017 4:22 AM EDT) Neutrophil % 59.0 % [facility] Neutrophil Absolute 3.72 1.70 - 6.10 x10(3)/[facility] LABORATORY Lymph % 27.5 % [facility] Lymphocytes Abs 1.7 0.9 - 3.2 x10(3)/[facility] LABORATORY Monocyte % 9.4 % [facility] Monocyte Abs 0.6 0.3 - 0.9 x10(3)/[facility] LABORATORY Eos % 3.0 % [facility] Eosinophils Abs 0.2 0.0 - 0.4 x10(3)/[facility] LABORATORY Basophil % 0.8 % [facility] Baso Absolute 0.0 0.0 - 0.1 x10(3)/[facility] LABORATORY Immature Gran % 0.30 % [facility] Comment: Immature granulocytes(IG's)percentage and absolute count will include metamyelocytes, myelocytes, and promyelocytes. Blood smears from CBCs yielding IG's will be scanned manually for concordance. If this scan disagrees with the automated IG or if promyelocytes are noted, a manual differential will be performed. Immature Gran Absolute 0.02 0.00 - 0.04 x10(3)/[facility] LABORATORY Blood specimen (specimen) 11/20/2017 4:22 AM EDT 11/20/2017 4:37 AM EDT Narrative Resulting Agency Comment Spec In Lab Reagan Andrea MD HEMATOLOGY ORDERABLE S [facility] [place] [address] * (ABNORMAL) Hemogram (11/20/2017 4:22 AM EDT) [...] RDW Standard Deviation 42.9 36.0 - 45.0 [facility] LABORATORY RDW coefficient of variation 13.2 11.4 - 13.8 % [facility] Mean Platelet Volume 10.5 7.6 - 12.9 fL [facility] NRBC% auto 0.0 % [facility] NRBC Absolute 0.000 0.000 - 0.000 x10(3)/mc L [facility] Blood specimen (specimen) 11/20/2017 4:22 AM EDT 11/20/2017 4:37 AM EDT Narrative Resulting Agency Comment Spec In Lab Reagan Andrea MD HEMATOLOGY ORDERABLE S [facility] [place] [address] * (ABNORMAL) BMP w/fasting Glucose (11/20/2017 4:22 AM EDT) [facility] Signature Glucose Fasting 101(H) 65 - [...] of Diabetes Mellitus, Position Statement from the [place] Diabetes [employer]. ??Diabetes Care, Volume 33, Supplement [...] LABORATORY Est Glomerular Filtration Rate 44(L) >=60 [facility] Comment: The reported eGFR should be multiplied by 1.2 for patients. The MDRD is not an appropriate measure of renal function for patients with body mass extremes or in patients with acute kidney failure. http://Tagoodies/DHnkdep http://Tagoodies/DHMCnkf Blood specimen (specimen) 11/20/2017 4:22 AM EDT 11/20/2017 4:37 AM EDT Narrative Resulting Agency Comment Spec In Lab Lara Aguero [place] CHEMISTRY ORDERABLES [facility] [place] [address] * (ABNORMAL) Cardiac Enzymes (LEB/CGP) (11/20/2017 4:22 [...] meets the diagnosis for a myocardial infarction (DC). Detection of a rise and/or fall of cTnT, with at least one value greater than the 99th percentile (> or = 0.01) and with at least one of the following ?? Symptoms of ischemia ?? New or presumed new significant GA-tizpqfn-I wave (ST-T) changes or new left bundle [...] additional sample may be indicated. Reference: Third Dalton Definition of Myocardial Infarction. Journal of the [place] College of [employer]iology 2012;60:1581-98 Creatine Kinase 127 0 - 200 unit/L [facility] Blood specimen (specimen) 11/20/2017 4:22 AM EDT 11/20/2017 4:37 AM EDT Narrative Resulting Agency Comment Spec In Lab Julita Gomez MD CHEMISTRY ORDERAB LES Performing Organization Address [facility] [place] [address] * EKG 12 Lead (11/19/2017 10:46 AM EDT) Ventricular rate 51 BPM MUSE SYSTEM Atrial Rate 51 BPM MUSE SYSTEM P-R Interval 220 ms MUSE SYSTEM QRS Duration 80 ms MUSE SYSTEM Q-T Interval 504 ms MUSE SYSTEM QTC Calculated (Bezet) 464 ms MUSE SYSTEM Calculated P Bryant 24 degrees MUSE SYSTEM Calculated R Bryant -3 degrees MUSE SYSTEM Calculated T Bryant 69 degrees MUSE SYSTEM INTERPRETATION Sinus bradycardia with 1st degree A-V block Otherwise normal ECG When compared with ECG of 18-NOV-2017 23:57, No significant change was found Confirmed by MD JOHN, BERTHA ([id number]) on 11/19/2017 8:29:14 PM MUSE SYSTEM 11/19/2017 10:4 6 AM EDT 11/19/2017 8:29 PM EDT Julita Gomez MD ECG ORDERABLES Performing Organization Address [facility] Co de Phone Number MUSE SYSTEM * CARDIAC CATHETERIZATION (11/19/2017 10:25 AM EDT) Anatomical Region Laterality Modality Other Narrative 11/19/2017 12:31 PM EDT ?[facility] ? Cardiac Catheterization/Intervention Report ? Patient Name: Garges, Tra ? Procedure Date: 11/19/2017 ? A #: [id number] ? Primary Physician: Julita Gomez ? Case #: [id number] ? File Name: [id number] ? Catheterization Order Number: [id number] ? [facility] ? Final Report [place], [place] ? Patient Name: ? Tra Garges ?ID#: ?[id number] ? : ?1940 ? Procedure Date: ? [...] patient presented with: non-STEMI (w/i 7 days). [place]ic ?Cardiovascular Society angina class was IV. No [...] dose administered prior to arrival in the produce laborer. ?Recommend continuing clopidogrel 75 mg PO daily [...] Procedure Note Julita Gomez MD - 11/19/2017 [facility] Cardiac Catheterization/Intervention Report Patient Name: Tra Brothers Procedure Date: 11/19/2017 A #: [id number] Primary Physician: Julita Gomez Case #: [id number] File Name: [id number] Catheterization Order Number: [id number] [facility] FinalReport [place], [place] Patient Name: Tra Brothers ID#:[id number] :1940 Procedure Date: November 19, 2017 Case [...] patient presented with: non-STEMI (w/i 7 days). [place] Cardiovascular Society angina class was IV. No [...] 13.6 minutes, dose area product was 96,350 bDFjq1rus air kerma was 793 mGY. The patient [...] The lesion was predilated with a 2.50mm [id number] MM balloon with a maximum inflation pressure [...] The lesion was predilated with a 2.50mm [id number] MM balloon with a maximum inflation pressure [...] dose administered prior to arrival in the produce laborer. Recommend continuing clopidogrel 75 mg PO daily [...] COMPLETE (11/19/2017 9:07 AM EDT) EF 63 HEARTRepair Report SYSTEM Anatomical Region Laterality Modality Other 11/19/2017 Narrative 11/19/2017 9:51 AM EDT Procedure: ?Transthoracic Echocardiogram Patient: ?DENEEN GALLARDO ? (Age): 1940(76y) Med Rec#: ? [id number] ?Sex: ?M ? Site Loc: ? [facility] ?Ht / Wt: ??180(cm)/97(kg) Pt. Loc: ?Adult Floor ? BSA: ?2.17 Study Date: ?? 11/19/2017 ?Pt. Type: Inpatient Tape: ? Referring: NORRIS DELEON J Reading: Rustam Dave ([id number]) Marketing Program Coordinator: Andrea Esparza [facility] Diagnosis: *ICD-10-PCS Non-ST elevation (NSTEMI) myocardial [...] E-wave Vmax ?0.7 ?m/sec ? MV deceleration [id number] ?msec ? MV A-wave Vmax ?0.8 ?m/sec [...] ? Mid-Inferior ?Normal ? Mid-Inferoseptal ?Normal ? Bell-Septal ? Normal ? Bell-Anterior ? Normal ? Bell-Lateral ?Normal ? Bell-Inferior ? Normal ? Bell-Tip ?Normal ? This report has been electronically signed by: Rustam Dave M.D. ? 11/19/2017 09:50:55 Images reviewed and interpretation verified [facility] Cardiac Ultrasound Laboratory Procedure Note Rustam Dave MD - 11/19/2017 Procedure: Transthoracic Echocardiogram Patient: DENEEN WISDOM(Age): 1940(76y) Med Rec#: [id number] Sex: M Site Loc: [facility] Ht / Wt: 180(cm)/97(kg) Pt. Loc: Adult Floor BSA: 2.17 Study Date: 11/19/2017 Pt. Type: Inpatient Tape: Referring: NORRIS DELEON J Reading: Rustam Dave ([id number]) Marketing Program Coordinator: Andrea Esparza [facility] Diagnosis: *ICD-10-PCS Non-ST elevation (NSTEMI) myocardial [...] MV E-wave Vmax 0.7 m/sec MV deceleration [id number] msec MV A-wave Vmax 0.8 m/sec MV [...] Normal Mid-Posterolateral Akinetic Mid-Inferior Normal Mid-Inferoseptal Normal Bell-Septal Normal Bell-Anterior Normal Bell-Lateral Normal Bell-Inferior Normal Bell-Tip Normal This report has been electronically signed by: Rustam Dave M.D. 11/19/2017 09:50:55 Images reviewed and interpretation verified [facility] Cardiac Ultrasound Laboratory Reagan Andrea MD ECHO ORDERABLES * Heparin (unfractionated) Level (11/19/2017 8:39 AM EDT) UF Heparin 0.45 IU/mL [facility] Comment: Guidelines for therapeutic unfractionated [...] HEMATOLOGY ORDERABLE S [facility] [place] [address] * (ABNORMAL) Cardiac Enzymes (LEB/CGP) (11/19/2017 8:39 [...] meets the diagnosis for a myocardial infarction (DC). Detection of a rise and/or fall of cTnT, with at least one value greater than the 99th percentile (> or = 0.01) and with at least one of the following ?? Symptoms of ischemia ?? New or presumed new significant CY-kdgqnmz-J wave (ST-T) changes or new left bundle [...] additional sample may be indicated. Reference: Third Dalton Definition of Myocardial Infarction. Journal of the [place] College of Cardiology 2012;60:1581-98 Creatine Kinase 105 0 - 200 unit/L [facility] Blood specimen (specimen) 11/19/2017 8:39 AM EDT 11/19/2017 8:51 AM EDT Narrative Resulting Agency Comment Spec In Lab Reagan Andrea MD CHEMISTRY ORDERABLES [facility] [place] [id number] * XR Chest PA or AP 1 [...] 2:25 AM EDT) UF Heparin 0.44 IU/mL [facility] Comment: Guidelines for therapeutic unfractionated [...] MD HEMATOLOGY ORDERABLE S Performing Organization Address City/State/[facility] Co de Phone Number [facility] [place] [address] * Differential, Automated (11/19/2017 2:25 AM EDT) Neutrophil % 59.0 % [facility] Neutrophil Absolute 3.68 1.70 - 6.10 x10(3)/[facility] LABORATORY Lymph % 28.0 % [facility] Lymphocytes Abs 1.8 0.9 - 3.2 x10(3)/[facility] LABORATORY Monocyte % 10.3 % [facility] Monocyte Abs 0.6 0.3 - 0.9 x10(3)/[facility] LABORATORY Eos % 1.8 % [facility] Eosinophils Abs 0.1 0.0 - 0.4 x10(3)/[facility] LABORATORY Basophil % 0.6 % [facility] Baso Absolute 0.0 0.0 - 0.1 x10(3)/[facility] LABORATORY Immature Gran % 0.30 % [facility] Comment: Immature granulocytes(IG's)percentage and absolute count will include metamyelocytes, myelocytes, and promyelocytes. Blood smears from CBCs yielding IG's will be scanned manually for concordance. If this scan disagrees with the automated IG or if promyelocytes are noted, a manual differential will be performed. Immature Gran Absolute 0.02 0.00 - 0.04 x10(3)/[facility] LABORATORY Blood specimen (specimen) 11/19/2017 2:25 AM EDT 11/19/2017 2:40 AM EDT Narrative Resulting Agency Comment Spec In Lab Reagan Andrea MD HEMATOLOGY ORDERABLE S [facility] [place] [address] * (ABNORMAL) Hemogram (11/19/2017 2:25 AM EDT) White Blood Cell 6.2 4.0 - 9.5 x10(3)/[facility] LABORATORY Red Blood Cell 4.65 4.58 - 5.54 x10(6)/[facility] LABORATORY Hemoglobin 13.5(L) 13.7 - 16.5 [...] HOSPITAL LABORATORY Platelet 156 145 - 357 x10(3)/[facility] LABORATORY RDW Standard Deviation 41.2 36.0 - 45.0 fL [facility] RDW coefficient of variation 13.1 11.4 - 13.8 % [facility] Mean Platelet Volume 10.6 7.6 - 12.9 fL [facility] NRBC% auto 0.0 % [facility] NRBC Absolute 0.000 0.000 - 0.000 x10(3)/mc L [facility] Blood specimen (specimen) 11/19/2017 2:25 AM EDT 11/19/2017 2:40 AM EDT Narrative Resulting Agency Comment Spec In Lab Reagan Andrea MD HEMATOLOGY ORDERABLE S [facility] [place] [address] * Hemoglobin A1c (11/19/2017 2:25 AM EDT) [...] Mellitus, Diabetes Care 2013; 36: Suppl. 1, J47-36 Estimated Average Glucose See note mg/dL [facility] [...] into estimated average glucose values. ??Diabetes Care 2008:31(8):2546-1905. Blood specimen (specimen) 11/19/2017 2:25 AM EDT 11/19/2017 2:40 AM EDT Narrative Resulting Agency Comment Spec In Lab Reagan Andrea MD CHEMISTRY ORDERABLES [facility] [place] [address] * (ABNORMAL) Basic Metabolic Panel (non-fasting) (11/19/2017 [...] LABORATORY Est Glomerular Filtration Rate 43(L) >=60 [facility] Comment: The reported eGFR should be multiplied by 1.2 for patients. The MDRD is not an appropriate measure of renal function for patients with body mass extremes or in patients with acute kidney failure. http://Tagoodies/DHnkdep http://Tagoodies/DHMCnkf Blood specimen (specimen) 11/19/2017 2:25 AM EDT 11/19/2017 2:40 AM EDT Narrative Resulting Agency Comment Spec In Lab Reagan Andrea MD CHEMISTRY ORDERABLES [facility] [place] [address] * Lipid Panel (11/19/2017 2:25 AM EDT) Cholesterol, Total 158 mg/dL [facility] Comment: Lower Risk: <200 mg/dL Average Risk: 200-239 mg/dL Higher Risk: >ew=139 mg/dL Triglyceride 96 mg/dL [facility] Comment: Average Risk/Lower Risk: <150 mg/dL Borderline High Risk: 150-199 mg/dL High Risk: 200-499 mg/dL Very High Risk: >nb=377 mg/dL HDL Cholesterol 53 mg/dL [facility] Comment: Males: ?? Higher Risk: <40 mg/dL Females: ?? HIgher Risk: <50 mg/dL LDL Cholesterol 86 mg/dL [facility] Comment: Lowest Risk: <100 mg/dL Lower Risk: 100-129 mg/dL Borderline High Risk: 130-159 mg/dL High Risk: 160-189 mg/dL Very High Risk: >jm=455 mg/dL Cholesterol/HDL Ratio 3.0 ratio [facility] Lipid Interpretation See Note [facility] Comment: Lipid management should be guided by a patient? s ASCVD risk, goals and preferences. ACC/AHA Guidelines recommend high intensity statin if clinical ASCVD or LDL greater than or equal to 190 mg/dL. http://KaChing!.BioCee/IOI-UAJ-Bdqiyldmj Adults aged 40-75 with LDL 70-189 mg/dL should have their 10 year ASCVD risk estimated with the ACC/AHA ASCVD risk material damage adjuster http://tools.acc.org/AJATE-Czea-Rnvdlyoxr/ Statin should be discussed if risk greater [...] MD CHEMISTRY ORDERABLES [facility] [place] [address] * (ABNORMAL) Cardiac Enzymes (LEB/CGP) (11/19/2017 2:25 [...] meets the diagnosis for a myocardial infarction (DC). Detection of a rise and/or fall of cTnT, with at least one value greater than the 99th percentile (> or = 0.01) and with at least one of the following ?? Symptoms of ischemia ?? New or presumed new significant FD-azkfnul-A wave (ST-T) changes or new left bundle [...] additional sample may be indicated. Reference: Third Dalton Definition of Myocardial Infarction. Journal of the [place] [employer] 2012;60:1581-98 Creatine Kinase 104 0 - 200 unit/L [facility] Blood specimen (specimen) 11/19/2017 2:25 AM EDT 11/19/2017 2:41 AM EDT Narrative Resulting Agency Comment Spec In Lab Reagan Andrea MD CHEMISTRY ORDERABLES Performing Organization Address [facility] Co de Phone Number [facility] [place] [address] * EKG 12 Lead (11/18/2017 11:57 PM EDT) Ventricular rate 58 BPM MUSE SYSTEM Atrial Rate 58 BPM MUSE SYSTEM P-R Interval 226 ms MUSE SYSTEM QRS Duration 86 ms MUSE SYSTEM Q-T Interval 450 ms MUSE SYSTEM QTC Calculated (Bezet) 441 ms MUSE SYSTEM Calculated P Bryant 33 degrees MUSE SYSTEM Calculated R Bryant 2 degrees MUSE SYSTEM Calculated T Bryant 66 degrees MUSE SYSTEM INTERPRETATION Sinus bradycardia with 1st degree A-V block Otherwise normal ECG When compared with ECG of 18-NOV-2017 20:26, (unconfirmed) No significant change was found Confirmed by MD ENCISO ALAN ([id number]) on 11/19/2017 10:16:27 AM MUSE SYSTEM 11/18/2017 11:5 7 PM EDT 11/19/2017 10:16 AM EDT Reagan Andrea MD ECG ORDERABLES Performing Organization Address [facility] Co de Phone Number MUSE SYSTEM * Heparin (unfractionated) Level (11/18/2017 8:33 PM EDT) UF Heparin 0.66 IU/mL [facility] Comment: Guidelines for therapeutic unfractionated [...] MD HEMATOLOGY ORDERABLE S Performing Organization Address City/State/[facility] Co de Phone Number [facility] [place] [address] * Differential, Automated (11/18/2017 8:33 PM EDT) Neutrophil % 62.8 % [facility] Neutrophil Absolute 5.08 1.70 - 6.10 x10(3)/[facility] Lymph % 25.8 % [facility] Lymphocytes Abs 2.1 0.9 - 3.2 x10(3)/[facility] Monocyte % 8.7 % [facility] Monocyte Abs 0.7 0.3 - 0.9 x10(3)/[facility] Eos % 1.5 % [facility] Eosinophils Abs 0.1 0.0 - 0.4 x10(3)/[facility] Basophil % 0.7 % [facility] Baso Absolute 0.1 0.0 - 0.1 x10(3)/[facility] Immature Gran % 0.50 % [facility] Comment: Immature granulocytes(IG's)percentage and absolute count will include metamyelocytes, myelocytes, and promyelocytes. Blood smears from CBCs yielding IG's will be scanned manually for concordance. If this scan disagrees with the automated IG or if promyelocytes are noted, a manual differential will be performed. Immature Gran Absolute 0.04 0.00 - 0.04 x10(3)/[facility] Blood specimen (specimen) 11/18/2017 8:33 PM EDT 11/18/2017 8:52 PM EDT Narrative Resulting Agency Comment Spec In Lab Reagan Andrea MD HEMATOLOGY ORDERABLE S [facility] [place] [place] [address] * Hemogram (11/18/2017 8:33 PM EDT) White Blood Cell 8.1 4.0 - 9.5 x10(3)/[facility] Red Blood Cell 5.15 4.58 - 5.54 x10(6)/[facility] Hemoglobin 14.8 13.7 - [...] HOSPITAL LABORATORY Platelet 189 145 - 357 x10(3)/[facility] RDW Standard Deviation 41.7 36.0 - 45.0 [facility] RDW coefficient of variation 13.2 11.4 - 13.8 % [facility] Mean Platelet Volume 10.5 7.6 - 12.9 fL [facility] NRBC% auto 0.0 % [facility] NRBC Absolute 0.000 0.000 - 0.000 x10(3)/mcL [facility] Blood specimen (specimen) 11/18/2017 8:33 PM EDT 11/18/2017 8:52 PM EDT Narrative Resulting Agency Comment Spec In Lab Reagan Andrea MD HEMATOLOGY ORDERABLE S Performing Organization Address [facility] Co de Phone Number [facility] [place] [address] * (ABNORMAL) APTT (11/18/2017 8:33 PM EDT) Partial Thromboplastin Time 105(Criti john) 25 - 37 sec [facility] Comment: Called by: [facility], Read back by: Kira Clemons, Date/Time:11/18/17 [...] MD HEMATOLOGY ORDERABLE S Performing Organization Address [facility] Co de Phone Number [facility] [place] [address] * Prothrombin Time (11/18/2017 8:33 PM EDT) [...] MD HEMATOLOGY ORDERABLE S Performing Organization Address City/[facility]/ZIP Co de Phone Number [facility] [place] [address] * pro-Brain Natriuretic Peptide (11/18/2017 8:33 PM EDT) Pathologist [facility] NT-proBNP 431 <=450 pg/mL [facility] Blood specimen (specimen) 11/18/2017 8:33 PM EDT 11/18/2017 8:52 PM EDT Narrative Resulting Agency Comment Spec In Lab Reagan Andrea MD CHEMISTRY ORDERABLES Performing Organization Address [facility] Co de Phone Number [facility] [place] [address] * Hepatic Function Panel (11/18/2017 8:33 PM EDT) Pathologist [facility] Protein, Total 7.1 6.1 - 8.0 gm/dL [...] Andrea MD CHEMISTRY ORDERABLES Performing Organization Address City/[facility]/ZIP Co de Phone Number [facility] [place] [address] * (ABNORMAL) Cardiac Enzymes (LEB/CGP) (11/18/2017 8:33 PM EDT) Pathologist [facility] Troponin-T 0.09(H) 0.00 - 0.00 ng/mL [facility] Comment: The 99th percentile for Troponin T is less than 0.01 ng/mL, any detectable cTnT concentration using this assay should be considered elevated. According to the third universal definition of myocardial infarction the following criteria with a clinical presentation consistent with acute myocardial ischemia meets the diagnosis for a myocardial infarction (DC). Detection of a rise and/or fall of cTnT, with at least one value greater than the 99th percentile (> or = 0.01) and with at least one of the following ?? Symptoms of ischemia ?? New or presumed new significant UP-sqfpmva-U wave (ST-T) changes or new left bundle [...] additional sample may be indicated. Reference: Third Dalton Definition of Myocardial Infarction. Journal of the [place] [employer] 2012;60:1581-98 Creatine Kinase 119 0 - 200 unit/L [facility] Blood specimen (specimen) 11/18/2017 8:33 PM EDT 11/18/2017 8:52 PM EDT Narrative Resulting Agency Comment Spec In Lab Reagan Andrea MD CHEMISTRY ORDERABLES [facility] [place] [address] * (ABNORMAL) Basic Metabolic Panel (non-fasting) (11/18/2017 8:33 PM EDT) [facility] Glucose 92 65 - 199 mg/dL [facility] [...] LABORATORY Est Glomerular Filtration Rate 47(L) >=60 [facility] Comment: The reported eGFR should be multiplied by 1.2 for patients. The MDRD is not an appropriate measure of renal function for patients with body mass extremes or in patients with acute kidney failure. http://Tagoodies/DHnkdep http://Tagoodies/DHMCnkf Blood specimen (specimen) 11/18/2017 8:33 PM EDT 11/18/2017 8:52 PM EDT Narrative Resulting Agency Comment Spec In Lab Reagan Andrea MD CHEMISTRY ORDERABLES [facility] [place] [place] [address] * EKG 12 Lead (11/18/2017 8:26 PM EDT) Ventricular rate 55 BPM MUSE SYSTEM Atrial Rate 55 BPM MUSE SYSTEM P-R Interval 216 ms MUSE SYSTEM QRS Duration 88 ms MUSE SYSTEM Q-T Interval 438 ms MUSE SYSTEM QTC Calculated (Bezet) 419 ms MUSE SYSTEM Calculated P Bryant 36 degrees MUSE SYSTEM Calculated T Bryant 42 degrees MUSE SYSTEM INTERPRETATION Sinus bradycardia [...] Reason: See comment - Comment: allready given)1016 ([facility] Hold - Provider: Admin Adt - Reason: Transfer to a Procedural area)1254 ([facility] Unhold - Provider: Admin Adt)2012 (Given - Provider: Kong Brennan, MANAN) 0801 (Given - Provider: Mathew Stringer RN) clopidogrel (PLAVIX) tablet 75 mg 75 mg, Oral, DAILY, First dose on Fri11/19/17 at 0900, Until Discontinued, Routine 0818 (Given - Provider: Mathew Stringer RN)1016 ([facility] Hold - Provider: Admin Adt - Reason: Transfer to a Procedural area)1254 ([facility] Unhold - Provider: Admin Adt) 0802 (Given - Provider: Mathew Stringer RN) losartan (COZAAR) tablet 100 mg 100 mg, Oral, DAILY, First dose on Fri11/19/17 at 0900, Until Discontinued, Hold if BP < 100, Routine 0819 (Given - Provider: Mathew Stringer RN)1016 ([facility] Hold - Provider: Admin Adt - Reason: Transfer to a Procedural area)1254 ([facility] Unhold - Provider: Admin Adt) [...] - Reason: Transfer to a Procedural area)1254 ([facility] Unhold - Provider: Admin Adt)2013 (Given - Provider: Kong Brennan, MANAN) 0801 (Given - Provider: Mathew Stringer RN) sodium chloride 0.9 % flush 5 mL 5 mL, Intravenous, EVERY 12 HOURS, First dose on Fri11/18/17 at 2045, Until Discontinued, Routine 2044 (Given - Provider: Zeinab Ferris RN) 0845 (Given - Provider: Mathew Stringer RN)1016 ([facility] Hold - Provider: Admin Adt - Reason: Transfer to a Procedural area)1254 ([facility] Unhold - Provider: Admin Adt)2014 (Given - Provider: Kong Brennan RN) 0845 (Given - Provider: Mathew Stringer RN) sodium chloride 0.9 % flush 5 mL 5 mL, Intravenous, 2 TIMES DAILY, First dose on Fri11/18/17 at 2315, Until Discontinued, Routine 231 (Not Given - Provider: Zeinab Ferris RN - Reason: Contraindicated) 0900 (Given - Provider: Mathew Stringer RN)1016 ([facility] Hold - Provider: Admin Adt - Reason: Transfer to a Procedural area)1254 ([facility] Unhold - Provider: Admin Adt)2100 [...] (Given - Provider: Zeinab Ferris RN) 1016 ([facility] Hold - Provider: Admin Adt - Reason: Transfer to a Procedural area)1254 ([facility] Unhold - Provider: Admin Adt)2013 [...] for discomfort with PIV insertion, Routine 1016 ([facility] Hold - Provider: Admin Adt - Reason: Transfer to a Procedural area)1254 ([facility] Unhold - Provider: Admin Adt) lidocaine (XYLOCAINE) 10 mg/mL (1 %) injection 3 mg 3 mg (0.3 mL), Subcutaneous, ONCE PRN, 1 dose, Starting on Fri11/18/17 at 2257, Until Nilda 11/20/17 at 1304, for discomfort with PIV insertion, Routine 1016 ([facility] Hold - Provider: Admin Adt - Reason: Transfer to a Procedural area)1254 ([facility] Unhold - Provider: Admin Adt) [...] last 24 to 72 hours., Routine 1016 ([facility] Hold - Provider: Admin Adt - Reason: Transfer to a Procedural area)1254 ([facility] Unhold - Provider: Admin Adt) [...] provided on this medication record., Routine 1016 ([facility] Hold - Provider: Admin Adt - Reason: Transfer to a Procedural area)1254 ([facility] Unhold - Provider: Admin Adt) sodium chloride 0.9 % flush 5-20 mL 5-20 mL, Intravenous, EVERY 1 MIN PRN, Starting on Fri11/18/17 at 2257, Until Nilda 11/20/17 at 1304, flush, Flush pertains to all indwelling lines. Flush per protocol found in the job aid using the link provided on this medication record., Routine 1016 ([facility] Hold - Provider: Admin Adt - Reason: Transfer to a Procedural area)1254 ([facility] Unhold - Provider: Admin Adt) [...] UA) documented in this encounter Care Teams Manager Foreign Relationship Specialty Start Date End Date Karo Otero MD [address] [place], [place] [id number] PCP - General Family Medicine 02/11/17 03/19/23 documented as of this encounter
--- OUTSIDE RECORDS SUMMARY | 2024-07-06 14:06 | XMS_ITS | Encounter Summary ---
Author Organization [facility] Address [facility] [place] [address] Care Team Providers Care Trauma Program Manager Name Role Phone Karo Otero MD Primary Care Provider [phone] Encounter Details Date Type Department Care Team (Late st Contact Info) Description 11/18/2017 External [place] [address] Social History Tobacco Use Types Packs/Day Years [...] PM EST Office Visit Cardiology at [address] [phone] Joel Link MD [facility] [place] [address] 01/18/2025 10:15 AM EDT Office Visit Dermatology at [address] [phone] Mathew Fernando MD [address] [place] [address], [facility] [place] [address] documented as of this encounter Procedures Procedure [...] on filedocumented in this encounter Care Teams Trauma Program Manager Relationship Specialty Start Date End Date Karo Otero MD [address] [place] [address] PCP - General Family Medicine 02/11/17 03/19/23 documented as of this encounter
--- OUTSIDE RECORDS SUMMARY | 2024-07-06 14:06 | XMS_ITS | Encounter Summary ---
Author Organization [facility] Address [facility] [place] [address] Care Team Providers Care Manager Operational Name Role Phone Karo Otero MD Primary Care Provider [phone] Reason for Visit * Reason Comments Follow-up 6 month f/u ASCVD, m ore tired, More SOB. Broke femur last year Encounter Details Date Type Department Care Team (Late st Contact Info) Description 04/06/2019 9:40 AM EDT Office Visit Cardiology at [address] [phone] Joel Paniagua MD [facility] [place] [address] Non-ST elevation myocardial infarction (NSTEMI); Coronary artery disease involving [place] coronary artery of [place] heart without angina pectoris; Cardiomyopathy, ischemic; Left [...] 3 (moderate) ??? Coronary artery disease involving [place] coronary artery of [place] heart 11/2017: mild diffuse LM and RCA, [...] Assessment and Plan: Coronary artery disease involving [place] coronary artery of [place] heart No angina per history - Anti-platelets: [...] 3:00 PM EST Office Visit Cardiology at [place] [address] [place] [address] Joel Paniagua MD [facility] [place] [address] 01/18/2025 10:15 AM EDT Office Visit Dermatology at [place] [address] [place] [address] Mathew Fernando MD [address] [facility] [place] [address] documented as of this encounter Visit Diagnoses Diagnosis Non-ST elevation myocardial infarction (NSTEMI) Acute myocardial infarction, subendocardial infarction, episode of care unspecified Coronary artery disease involving [place] coronary artery of [place] heart without angina pectoris Cardiomyopathy, ischemic Other specified forms of chronic ischemic heart disease Left carotid bruit Other symptoms involving cardiovascular system documented in this encounter Care Teams Manager Operational Relationship Specialty Start Date End Date Karo Otero MD [address] [place] [address] PCP - General Family Medicine 02/11/17 03/19/23 documented as of this encounter
--- OUTSIDE RECORDS SUMMARY | 2024-07-06 14:06 | XMS_ITS | Encounter Summary ---
Author Organization [facility] Address [facility] [place] [address] Care Team Providers Care Morphology Teacher Name Role Phone Karo Otero MD Primary Care Provider Encounter Details Date Type Department Care Team (Late st Contact Info) Description 05/31/2019 External [place] [address] Social History Tobacco Use Types Packs/Day Years [...] 3:00 PM EST Office Visit Cardiology at [address] [phone] [facility] [place] [address] 01/18/2025 10:15 AM EDT Office Visit Dermatology at [address] [phone] Mathew Fernando MD [address] [place] [address], [facility] [place] [address] documented as of this encounter Procedures Procedure Name Priority Date/Time Associated Diagnosis Comments ECG SCAN Routine 05/31/2019 documented in this encounter Results * Scan Doc: ECG (05/31/2019) Historical Provider MD IBRAHIM MGR SCAN EX T ORDR/RSLT documented in this encounter Visit Diagnoses Not on filedocumented in this encounter Care Teams Morphology Teacher Relationship Specialty Start Date End Date Karo Otero MD [address] [place] [address] PCP - General Family Medicine 02/11/17 03/19/23 documented as of this encounter
--- OUTSIDE RECORDS SUMMARY | 2024-07-06 14:06 | XMS_ITS | Encounter Summary ---
[place] [address] Care Team Providers Care Detail Manager Name Role Phone Karo Otero MD Primary Care Provider [phone] Reason for Visit * Auth/Cert Specialty Diagnoses / Procedures Referred By Contac t Referred To Contact Diagnoses NSTEMI (non-ST elevated myocardial infarction) [place], CP ?CAD Procedures CARDIAC CATHETERIZATION PHOEBE IPI Referral ID Status Reason Start Date Expiration Date Visits Re quested Visits Authorized [id number] 1 1 Encounter Details Date Type Department Care Team (Late st Contact Info) Description 11/19/2017 10:00 AM EDT - 11/19/2017 11:00 AM EDT Surgery [place] [address] Julita Gomez MD [facility] [place] [address] CARDIAC CATHETERIZATION Social History Tobacco Use Types [...] Brothers III Patient Age: 76 y.o. Language: Divehi Race: White Ethnicity: OR Admit date: 11/18/2017 [...] synthroid Inpatient Provider Contact Information: Lara Bass, SAP BW DEVELOPER Discharge Diagnoses (Hospital Problems) and Secondary Diagnoses [...] course: ECG : NSR, normal axis, prolonged WV, J-point elevation in V2 less than 1mm. 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 Hospital Course: On admission to [facility], the patient had no complaints of chest pain or shortness of breath. Telemetry was attached which showed normal sinus rhythm. Heparin drip was infusing. [facility] records/transfer records were reviewed. Baseline labs were [...] appointments: During 8am-5pm Friday through Friday call [phone] to speak with a nurse in the cardiology clinic All other times call [phone] and ask to speak to the stage driver correctional therapy teacher. Return to work: Retired, no heavy lifting for one week (nothing greater than 5-7 lbs). Driving: No driving for 48 hours after catheterization. Follow up Appointments: PCP Karo Otero MD [phone] Your follow up appointment is scheduled for November 26, 2017 at 10:35 am (previously scheduled) Cardiology - Dr. Sukh Mishra [address] [place], [place] [id number] Your follow up appointment is scheduled for December 30, 2017 at 8:20 am (8 am arrival). Home oxygen therapy: N/A Arrangements for VNA/home care: none Future Appointments and Orders Future Appointments Provider Department Dept Phone 12/30/2017 8:20 AM Sukh Mishra Jr., MD Cardiology at [place] [phone] 08/14/2018 8:45 AM Mathew Fernando MD Dermatology at [place] [phone] Future Orders Complete By Expires Referral to Cardiac Rehab [[id number] Custom] As directed Process Instructions: If no [...] appointments: During 8am-5pm Friday through Friday call [phone] to speak with a nurse in the cardiology clinic All other times call [phone] and ask to speak to the stage driver correctional therapy teacher. Return to work: Retired, no heavy lifting for one week (nothing greater than 5-7 lbs). Driving: No driving for 48 hours after catheterization. Follow up Appointments: PCP Karo Otero MD [phone] Your follow up appointment is scheduled for November 26, 2017 at 10:35 am (previously scheduled) Cardiology - Dr. Sukh Mishra [address] [place] [address] Your follow up appointment is scheduled for [...] Cardiology Progress Note Patient Name: Tra Brothers [facility] Service: HIM CLERK / PA Responsible Attending: Dick Renteria MD [...] ??? sodium chloride 0.9% 100 mL/hr (11/18/17 7566) PRN Meds:sodium chloride 0.9 %, lidocaine, sodium [...] CKD stage 3 who was transferred to [facility] in the setting of chest pain with elevated troponin. EKG without acute changes. He has had no further episodes since arrival to [facility]. Patient sent for coronary angiography on 11/19 [...] EDT Inpatient Cardiology Progress Note Patient Name: [facility] Service: HIM CLERK / PA Responsible Attending: Dick Renteria MD [...] been chest pain free since arrival to [facility]. NPO for cardiac catheterization today. Review of [...] CKD stage 3 who was transferred to [facility] in the setting of chest pain with elevated troponin. EKG without acute changes. He has had no further episodes since arrival to [facility]. Awaiting cardiac catheterization at this time. Plan: [...] course: ECG : NSR, normal axis, prolonged WV, J-point elevation in V2 less than 1mm. 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 ECG : NSR, normal axis, prolonged WV, J-point elevation in V2 less than 1mm. [...] for doing Advance Directives. Provided copy(ies) of [place] [employer] [facility] Advance Directives Taking Steps booklet [...] Specific Information: none Health/Prescription Coverage: Primary Insurance: [facility] MANAGED MEDICARE Secondary Insurance: N/A Prescription Coverage: yes Preferred Pharmacy: [facility] Primary Care Provider: Karo Otero MD [phone] Patient/Caregiver Goals of Treatment: discharge to home [...] of care planning. Susana Henning RN Pager: [phone] * Consult Note - Medina Krueger RN [...] further details. Reagan Andrea MD 11/18/2017 Pager [phone] documented in this encounter Plan of Treatment Upcoming Encounters Date Type Department Care Team (Late st Contact Info) Description 10/07/2024 3:00 PM EST Office Visit Cardiology at [address] [phone] Joel Link MD [facility] [place] [address] 01/18/2025 10:15 AM EDT Office Visit Dermatology at [address] [place] [address] Mathew Fernando MD [address] [facility] [address] Scheduled Referrals Name Type Priority Associated Diagnoses Orde r Schedule Referral to Cardiac Rehab Outpatient Referral Routine Non-ST elevation myocardial infarction (NSTEMI) Ordered: 11/20/2017 documented as of this encounter Procedures Procedure Name Priority Date/Time Associated Diagnosis Comments ACCOUNTS SUPERVISOR SCAN 11/21/2017 12:00 AM EDT BMP W/FASTING [...] Routine 11/19/2017 8:39 AM EDT CARDIAC ENZYMES ([facility]) STAT 11/19/2017 8:39 AM EDT XR CHEST ONE VIEW Routine 11/19/2017 6:3 1 AM EDT HEPARIN (UNFRACTIONATED) LEVEL Routine 11/19/2017 2:25 AM EDT HEMOGRAM Routine 11/19/2017 2:25 AM EDT DIFFERENTIAL, AUTOMATED Routine 11/20/19 2:25 AM EDT CARDIAC ENZYMES ([facility]) STAT 11/19/2017 2:25 AM EDT CBC (WITH [...] in this encounter Results * SCAN DOC: ACCOUNTS SUPERVISOR (11/21/2017 12:00 AM EDT) Anatomical Region Laterality Modality Other Narrative 11/21/2017 12:00 AM EDT Ordered by an unspecified provider. Scanning Provider MEDIA MGR SCAN EXT O RDR/RSLT * T4, free (11/20/2017 4:22 AM EDT) Free T4 1.16 0.93 - 1.70 ng/dL [facility] Blood specimen (specimen) Venous Draw / Unknown 11/20/2017 4:22 AM EDT 11/20/2017 4:39 AM EDT Narrative Resulting Agency Comment Spec In Lab Lara Aguero APRN CHEMISTRY ORDERABLES Performing Organization Address City/[facility] Co de Phone Number [facility] [place] [address] * T3, free (11/20/2017 4:22 AM EDT) Pathologist [facility] Free T3 2.6 2.0 - 4.4 pg/mL [facility] Blood specimen (specimen) Venous Draw / Unknown 11/20/2017 4:22 AM EDT 11/20/2017 4:39 AM EDT Narrative Resulting Agency Comment Spec In Lab Lara Aguero SAP BW DEVELOPER CHEMISTRY ORDERABLES Performing Organization Address [facility] Co de Phone Number [facility] [place] [address] * (ABNORMAL) TSH (11/20/2017 4:22 AM EDT) [facility] Thyroid Stimulating Hormone 6.29(H) 0.27 - 4.20 mlU/ML [facility] Blood specimen (specimen) Venous Draw / Unknown 11/20/2017 4:22 AM EDT 11/20/2017 4:39 AM EDT Narrative Resulting Agency Comment Spec In Lab Lara Aguero SAP BW DEVELOPER CHEMISTRY ORDERABLES Performing Organization Address City/[facility]/ZIP Co de Phone Number [facility] [place] [address] * Differential, Automated (11/20/2017 4:22 AM EDT) Neutrophil % 59.0 % [facility] Neutrophil Absolute 3.72 1.70 - 6.10 x10(3)/[facility] Lymph % 27.5 % [facility] Lymphocytes Abs 1.7 0.9 - 3.2 x10(3)/[facility] Monocyte % 9.4 % [facility] Monocyte Abs 0.6 0.3 - 0.9 x10(3)/[facility] Eos % 3.0 % [facility] Eosinophils Abs 0.2 0.0 - 0.4 x10(3)/[facility] Basophil % 0.8 % [facility] Baso Absolute 0.0 0.0 - 0.1 x10(3)/[facility] Immature Gran % 0.30 % [facility] Comment: Immature granulocytes(IG's)percentage and absolute count will include metamyelocytes, myelocytes, and promyelocytes. Blood smears from CBCs yielding IG's will be scanned manually for concordance. If this scan disagrees with the automated IG or if promyelocytes are noted, a manual differential will be performed. Immature Gran Absolute 0.02 0.00 - 0.04 x10(3)/[facility] Blood specimen (specimen) 11/20/2017 4:22 AM EDT 11/20/2017 4:37 AM EDT Narrative Resulting Agency Comment Spec In Lab Reagan Andrea MD HEMATOLOGY ORDERABLE S [facility] [place] [address] * (ABNORMAL) Hemogram (11/20/2017 4:22 AM EDT) White Blood Cell 6.3 4.0 - 9.5 x10(3)/mc L [facility] Red Blood Cell 4.56(L) 4.58 - 5.54 x10(6)/mc L [facility] Hemoglobin 13.3(L) 13.7 - 16.5 gm/dL [facility] Hematocrit 40.0(L) 40.5 - 48.5 % [facility] Mean Cell Volume 87.7 82.9 - 93.[address] [facility] Mean Cell Hemoglobin 29.2 27.5 - 32.[address] [facility] Mean Cell Hemoglobin Concentration 33.3 32.0 - 35.7 gm/dL [facility] Platelet 135(L) 145 - 357 x10(3)/mc L [facility] RDW Standard Deviation 42.9 36.0 - 45.[address] [facility] RDW coefficient of variation 13.2 11.4 - 13.8 % [facility] Mean Platelet Volume 10.5 7.6 - 12.[address] [facility] NRBC% auto 0.0 % [facility] NRBC Absolute 0.000 0.000 - 0.000 x10(3)/mc L [facility] Blood specimen (specimen) 11/20/2017 4:22 AM EDT 11/20/2017 4:37 AM EDT Narrative Resulting Agency Comment Spec In Lab Reagan Andrea MD HEMATOLOGY ORDERABLE S Performing Organization Address City/State/[facility] Co de Phone Number [facility] [place] [address] * (ABNORMAL) BMP w/fasting Glucose (11/20/2017 4:22 AM EDT) Glucose Fasting 101(H) 65 - 99 mg/dL [facility] Comment: ?Fasting* Glucose Interpretive Criteria [...] of Diabetes Mellitus, Position Statement from the [place] Diabetes Association. ??Diabetes Care, Volume 33, Supplement 1, Aug 2009 Blood Urea Nitrogen 20 10 - 20 mg/dL [facility] Creatinine 1.54(H) 0.80 - 1.50 mg/dL [facility] Sodium 144 135 - 145 mmol/L [facility] Potassium 4.3 3.5 - 5.0 mmol/L [facility] Comment: Please note: ??Patients with WBC >100,000 may have falsely elevated Potassium levels. ??For accurate Potassium quantification in these patients send serum separator tube (gold top) for subsequent determinations. ??Contact the Clinical Chemistry Laboratory if there are any questions. Chloride 104 98 - 107 mmol/L [facility] Carbon Dioxide 22 22 - 31 mmol/L [facility] Anion Gap 18(H) 5 - 15 mmol/L [facility] Calcium 8.9 8.5 - 10.5 mg/dL [facility] Est Glomerular Filtration Rate 44(L) >=60 [facility] Comment: The reported eGFR should be multiplied by 1.2 for patients. The MDRD is not an appropriate measure of renal function for patients with body mass extremes or in patients with acute kidney failure. http://[employer].Digitwhiz/DHnkdep http://[employer]/DHMCnkf Blood specimen (specimen) 11/20/2017 4:22 AM EDT 11/20/2017 4:37 AM EDT Narrative Resulting Agency Comment Spec In Lab Lara Aguero APRN CHEMISTRY ORDERABLES [facility] [place] [address] * (ABNORMAL) Cardiac Enzymes (LEB/CGP) (11/20/2017 4:22 AM EDT) Troponin-T 0.16(H) 0.00 - 0.00 ng/mL [facility] Comment: The 99th percentile for Troponin T is less than 0.01 ng/mL, any detectable cTnT concentration using this assay should be considered elevated. According to the third universal definition of myocardial infarction the following criteria with a clinical presentation consistent with acute myocardial ischemia meets the diagnosis for a myocardial infarction ([place]). Detection of a rise and/or fall of cTnT, with at least one value greater than the 99th percentile (> or = 0.01) and with at least one of the following ?? Symptoms of ischemia ?? New or presumed new significant CI-opeqcje-B wave (ST-T) changes or new left bundle [...] additional sample may be indicated. Reference: Third [place] Definition of Myocardial Infarction. Journal of the [place] College of Cardiology 2012;60:1581-98 Creatine Kinase 127 0 - 200 unit/L [facility] Blood specimen (specimen) 11/20/2017 4:22 AM EDT 11/20/2017 4:37 AM EDT Narrative Resulting Agency Comment Spec In Lab Julita Gomez MD CHEMISTRY ORDERAB LES [facility] [address] * EKG 12 Lead (11/19/2017 10:46 AM EDT) Ventricular rate 51 BPM MUSE SYSTEM Atrial Rate 51 BPM MUSE SYSTEM P-R Interval 220 ms MUSE SYSTEM QRS Duration 80 ms MUSE SYSTEM Q-T Interval 504 ms MUSE SYSTEM QTC Calculated (Bezet) 464 ms MUSE SYSTEM Calculated P [place] 24 degrees MUSE SYSTEM Calculated R [place] -3 degrees MUSE SYSTEM Calculated T [place] 69 degrees MUSE SYSTEM INTERPRETATION Sinus bradycardia [...] Modality Other Narrative 11/19/2017 12:31 PM EDT ?[facility] ? Cardiac Catheterization/Intervention Report ? Patient Name: Deneen, Tra ? Procedure Date: 11/19/2017 ? A #: [id number] ? Primary Physician: Julita Gomez ? Case #: [id number] ? File Name: [id number] ? Catheterization Order Number: [id number] ? [facility] ? Final Report [place], [place] ? Patient Name: ? Tra Garges ?ID#: ?[id number] ? : ?1940 ? Procedure Date: ? [...] patient presented with: non-STEMI (w/i 7 days). [place] ?Cardiovascular Society angina class was IV. No [...] dose administered prior to arrival in the laboratory clerk. ?Recommend continuing clopidogrel 75 mg PO daily [...] Procedure Note Julita Gomez MD - 11/19/2017 [facility] Cardiac Catheterization/Intervention Report Patient Name: Tra Brothers Procedure Date: 11/19/2017 A #: [id number] Primary Physician: Julita Gomez Case #: [id number] File Name: [id number] Catheterization Order Number: [id number] [facility] FinalReport [place], [place] Patient Name: Tra Brothers ID#:[id number] :1940 Procedure Date: November 19, 2017 Case [...] patient presented with: non-STEMI (w/i 7 days). [place] Cardiovascular Society angina class was IV. No [...] 13.6 minutes, dose area product was 96,350 [id number] air kerma was 793 mGY. The patient [...] priority for the procedure was Urgent. The [facility] indication for the procedure was [...] The lesion was predilated with a 2.50mm [id number] MM balloon with a maximum inflation pressure [...] The lesion was predilated with a 2.50mm [id number] MM balloon with a maximum inflation pressure [...] dose administered prior to arrival in the laboratory clerk. Recommend continuing clopidogrel 75 mg PO daily [...] GALLARDO ? (Age): 1940(76y) Med Rec#: ? [id number] ?Sex: ?M ? Site Loc: ? [facility] ?Ht / Wt: ??180(cm)/97(kg) Pt. Loc: ?Adult Floor ? BSA: ?2.17 Study Date: ?? 11/19/2017 ?Pt. Type: Inpatient Tape: ? Referring: NORRIS DELEON J Reading: Rustam Dave ([id number]) Seconds Grader: Andrea Esparza RDCS Diagnosis: *ICD-10-PCS Non-ST elevation [...] E-wave Vmax ?0.7 ?m/sec ? MV deceleration [id number] ?msec ? MV A-wave Vmax ?0.8 ?m/sec [...] ? Mid-Inferior ?Normal ? Mid-Inferoseptal ?Normal ? [place]-Septal ? Normal ? [place]-Anterior ? Normal ? [place]-Lateral ?Normal ? [place]-Inferior ? Normal ? [place]-Tip ?Normal ? This report has been electronically signed by: Rustam Dave M.D. ? 11/19/2017 09:50:55 Images reviewed and interpretation verified [facility] Cardiac Ultrasound Laboratory Procedure Note Rustam Dave MD - 11/19/2017 Procedure: Transthoracic Echocardiogram Patient: DENEEN WISDOM(Age): 1940(76y) Med Rec#: [id number] Sex: M Site Loc: [facility] Ht / Wt: 180(cm)/97(kg) Pt. Loc: Adult Floor BSA: 2.17 Study Date: 11/19/2017 Pt. Type: Inpatient Tape: Referring: NORRIS DELEON J Reading: Rustam Dave ([id number]) Seconds Grader: Andrea Esparza RDCS Diagnosis: *ICD-10-PCS Non-ST elevation [...] MV E-wave Vmax 0.7 m/sec MV deceleration [id number] msec MV A-wave Vmax 0.8 m/sec MV [...] Normal Mid-Posterolateral Akinetic Mid-Inferior Normal Mid-Inferoseptal Normal [place]-Septal Normal [place]-Anterior Normal [place]-Lateral Normal [place]-Inferior Normal [place]-Tip Normal This report has been electronically signed by: Rustam Dave M.D. 11/19/2017 09:50:55 Images reviewed and interpretation verified [facility] Cardiac Ultrasound Laboratory Reagan Andrea MD ECHO ORDERABLES * Heparin (unfractionated) Level (11/19/2017 8:39 AM EDT) UF Heparin 0.45 IU/mL [facility] Comment: Guidelines for therapeutic unfractionated [...] Lab Reagan Andrea MD HEMATOLOGY ORDERABLE S [facility] [place] [address] * (ABNORMAL) Cardiac Enzymes (LEB/CGP) (11/19/2017 8:39 AM EDT) Troponin-T 0.04(H) 0.00 - 0.00 ng/mL [facility] Comment: The 99th percentile for Troponin T is less than 0.01 ng/mL, any detectable cTnT concentration using this assay should be considered elevated. According to the third universal definition of myocardial infarction the following criteria with a clinical presentation consistent with acute myocardial ischemia meets the diagnosis for a myocardial infarction ([place]). Detection of a rise and/or fall of cTnT, with at least one value greater than the 99th percentile (> or = 0.01) and with at least one of the following ?? Symptoms of ischemia ?? New or presumed new significant HV-apodsmt-V wave (ST-T) changes or new left bundle [...] additional sample may be indicated. Reference: Third [place] Definition of Myocardial Infarction. Journal of the [place] College of Cardiology 2012;60:1581-98 Creatine Kinase 105 0 - 200 unit/L [facility] Blood specimen (specimen) 11/19/2017 8:39 AM EDT 11/19/2017 8:51 AM EDT Narrative Resulting Agency Comment Spec In Lab Reagan Andrea MD CHEMISTRY ORDERABLES [facility] [place] [address] * XR Chest PA or AP 1 [...] 2:25 AM EDT) UF Heparin 0.44 IU/mL [facility] Comment: Guidelines for therapeutic unfractionated [...] Lab Reagan Andrea MD HEMATOLOGY ORDERABLE S [facility] [place] [address] * Differential, Automated (11/19/2017 2:25 AM EDT) Neutrophil % 59.0 % [facility] Neutrophil Absolute 3.68 1.70 - 6.10 x10(3)/[facility] Lymph % 28.0 % [facility] Lymphocytes Abs 1.8 0.9 - 3.2 x10(3)/[facility] Monocyte % 10.3 % [facility] Monocyte Abs 0.6 0.3 - 0.9 x10(3)/[facility] Eos % 1.8 % [facility] Eosinophils Abs 0.1 0.0 - 0.4 x10(3)/[facility] Basophil % 0.6 % [facility] Baso Absolute 0.0 0.0 - 0.1 x10(3)/[facility] Immature Gran % 0.30 % [facility] Comment: Immature granulocytes(IG's)percentage and absolute count will include metamyelocytes, myelocytes, and promyelocytes. Blood smears from CBCs yielding IG's will be scanned manually for concordance. If this scan disagrees with the automated IG or if promyelocytes are noted, a manual differential will be performed. Immature Gran Absolute 0.02 0.00 - 0.04 x10(3)/[facility] Blood specimen (specimen) 11/19/2017 2:25 AM EDT 11/19/2017 2:40 AM EDT Narrative Resulting Agency Comment Spec In Lab Reagan Andrea MD HEMATOLOGY ORDERABLE S [facility] [place] [address] * (ABNORMAL) Hemogram (11/19/2017 2:25 AM EDT) White Blood Cell 6.2 4.0 - 9.5 x10(3)/[facility] Red Blood Cell 4.65 4.58 - 5.54 x10(6)/[facility] Hemoglobin 13.5(L) 13.7 - 16.5 gm/dL [facility] Hematocrit 40.4(L) 40.5 - 48.5 % [facility] Mean Cell Volume 86.9 82.9 - 93.[address] [facility] Mean Cell Hemoglobin 29.0 27.5 - 32.[address] [facility] Mean Cell Hemoglobin Concentration 33.4 32.0 - 35.7 gm/dL [facility] Platelet 156 145 - 357 x10(3)/[facility] LAB[facility] RDW Standard Deviation 41.2 36.0 - 45.0 [facility] RDW coefficient of variation 13.1 11.4 - 13.8 % [facility] Mean Platelet Volume 10.6 7.6 - 12.9 [facility] NRBC% auto 0.0 % [facility] NRBC Absolute 0.000 0.000 - 0.000 x10(3)/[facility] Blood specimen (specimen) 11/19/2017 2:25 AM EDT 11/19/2017 2:40 AM EDT Narrative Resulting Agency Comment Spec In Lab Reagan Andrea MD HEMATOLOGY ORDERABLE S [facility] [place] [address] * Hemoglobin A1c (11/19/2017 2:25 AM EDT) Hemoglobin A1c 5.4 4.3 - 5.6 % [facility] Comment: Reference Range: 4.3 - [...] Mellitus, Diabetes Care 2013; 36: Suppl. 1, X47-60 Estimated Average Glucose See note mg/dL [facility] Comment: Estimated Average Glucose not [...] into estimated average glucose values. ??Diabetes Care 2008:31(8):9877-3381. Blood specimen (specimen) 11/19/2017 2:25 AM EDT 11/19/2017 2:40 AM EDT Narrative Resulting Agency Comment Spec In Lab Reagan Andrea MD CHEMISTRY ORDERABLES [facility] [place] [address] * (ABNORMAL) Basic Metabolic Panel (non-fasting) (11/19/2017 2:25 AM EDT) Glucose 99 65 - 199 mg/dL [facility] Comment:Diabetes: >=200 mg/d L plus symptoms Blood Urea Nitrogen 25(H) 10 - 20 mg/dL [facility] Creatinine 1.56(H) 0.80 - 1.50 mg/dL [facility] Sodium 138 135 - 145 mmol/L [facility] Potassium 3.8 3.5 - 5.0 mmol/L [facility] Comment: Please note: ??Patients with WBC >100,000 may have falsely elevated Potassium levels. ??For accurate Potassium quantification in these patients send serum separator tube (gold top) for subsequent determinations. ??Contact the Clinical Chemistry Laboratory if there are any questions. Chloride 103 98 - 107 mmol/L [facility] Carbon Dioxide 26 22 - 31 mmol/L [facility] Anion Gap 9 5 - 15 mmol/L [facility] Calcium 8.7 8.5 - 10.5 mg/dL [facility] Est Glomerular Filtration Rate 43(L) >=60 [facility] Comment: The reported eGFR should be multiplied by 1.2 for patients. The MDRD is not an appropriate measure of renal function for patients with body mass extremes or in patients with acute kidney failure. http://[employer].Digitwhiz/DHnkdep http://[employer].Digitwhiz/DHMCnkf Blood specimen (specimen) 11/19/2017 2:25 AM EDT 11/19/2017 2:40 AM EDT Narrative Resulting Agency Comment Spec In Lab Reagan Andrea MD CHEMISTRY ORDERABLES [facility] [place] [address] * Lipid Panel (11/19/2017 2:25 AM EDT) Pathologist [facility] Cholesterol, Total 158 mg/dL [facility] Comment: Lower Risk: <200 mg/dL Average Risk: 200-239 mg/dL Higher Risk: >tf=246 mg/dL Triglyceride 96 mg/dL [facility] Comment: Average Risk/Lower Risk: <150 mg/dL Borderline High Risk: 150-199 mg/dL High Risk: 200-499 mg/dL Very High Risk: >wy=140 mg/dL HDL Cholesterol 53 mg/dL [facility] Comment: Males: ?? Higher Risk: <40 mg/dL Females: ?? HIgher Risk: <50 mg/dL LDL Cholesterol 86 mg/dL [facility] Comment: Lowest Risk: <100 mg/dL Lower Risk: 100-129 mg/dL Borderline High Risk: 130-159 mg/dL High Risk: 160-189 mg/dL Very High Risk: >cx=732 mg/dL Cholesterol/HDL Ratio 3.[address] [facility] Lipid Interpretation See Note [facility] Comment: Lipid management should be guided by a patient? s ASCVD risk, goals and preferences. ACC/AHA Guidelines recommend high intensity statin if clinical ASCVD or LDL greater than or equal to 190 mg/dL. http://[employer].com/EAW-SRD-Qjaqmpivz Adults aged 40-75 with LDL 70-189 mg/dL should have their 10 year ASCVD risk estimated with the ACC/AHA ASCVD risk truck repair service estimator http://tools.acc.org/EYNVY-Fema-Xofmbzgnz/ Statin should be discussed if risk greater [...] In Lab Reagan Andrea MD CHEMISTRY ORDERABLES [facility] [place] [address] * (ABNORMAL) Cardiac Enzymes (LEB/CGP) (11/19/2017 2:25 AM EDT) [facility] Troponin-T 0.05(H) 0.00 - 0.00 ng/mL [facility] Comment: The 99th percentile for Troponin T is less than 0.01 ng/mL, any detectable cTnT concentration using this assay should be considered elevated. According to the third universal definition of myocardial infarction the following criteria with a clinical presentation consistent with acute myocardial ischemia meets the diagnosis for a myocardial infarction ([place]). Detection of a rise and/or fall of cTnT, with at least one value greater than the 99th percentile (> or = 0.01) and with at least one of the following ?? Symptoms of ischemia ?? New or presumed new significant FV-icdmccs-M wave (ST-T) changes or new left bundle [...] additional sample may be indicated. Reference: Third [place] Definition of Myocardial Infarction. Journal of the [place] College [employer] 2012;60:1581-98 Creatine Kinase 104 0 - 200 unit/L [facility] Blood specimen (specimen) 11/19/2017 2:25 AM EDT 11/19/2017 2:41 AM EDT Narrative Resulting Agency Comment Spec In Lab Reagan Andrea MD CHEMISTRY ORDERABLES Performing Organization Address [facility]/ZIP Co de Phone Number [facility] [place] [address] * EKG 12 Lead (11/18/2017 11:57 PM EDT) Pathologist [facility] Ventricular rate 58 BPM MUSE SYSTEM Atrial Rate 58 BPM MUSE SYSTEM P-R Interval 226 ms MUSE SYSTEM QRS Duration 86 ms MUSE SYSTEM Q-T Interval 450 ms MUSE SYSTEM QTC Calculated (Bezet) 441 ms MUSE SYSTEM Calculated P [place] 33 degrees MUSE SYSTEM Calculated R [place] 2 degrees MUSE SYSTEM Calculated T [place] 66 degrees MUSE SYSTEM INTERPRETATION Sinus bradycardia with 1st degree A-V block Otherwise normal ECG When compared with ECG of 18-NOV-2017 20:26, (unconfirmed) No significant change was found Confirmed by MD ENCISO ALAN ([id number]) on 11/19/2017 10:16:27 AM MUSE SYSTEM 11/18/2017 11:5 7 PM EDT 11/19/2017 10:16 AM EDT Reagan Andrea MD ECG ORDERABLES Performing Organization Address [facility] de Phone Number MUSE SYSTEM * Heparin (unfractionated) Level (11/18/2017 8:33 PM EDT) UF Heparin 0.66 IU/mL [facility] Comment: Guidelines for therapeutic unfractionated [...] MD HEMATOLOGY ORDERABLE S Performing Organization Address [facility]/[place] [address] * Differential, Automated (11/18/2017 8:33 PM EDT) Neutrophil % 62.8 % [facility] Neutrophil Absolute 5.08 1.70 - 6.10 x10(3)/[facility] Lymph % 25.8 % [facility] Lymphocytes Abs 2.1 0.9 - 3.2 x10(3)/[facility] Monocyte % 8.7 % [facility] Monocyte Abs 0.7 0.3 - 0.9 x10(3)/[facility] Eos % 1.5 % [facility] Eosinophils Abs 0.1 0.0 - 0.4 x10(3)/[facility] Basophil % 0.7 % [facility] Baso Absolute 0.1 0.0 - 0.1 x10(3)/[facility] Immature Gran % 0.50 % [facility] Comment: Immature granulocytes(IG's)percentage and absolute count will include metamyelocytes, myelocytes, and promyelocytes. Blood smears from CBCs yielding IG's will be scanned manually for concordance. If this scan disagrees with the automated IG or if promyelocytes are noted, a manual differential will be performed. Immature Gran Absolute 0.04 0.00 - 0.04 x10(3)/[facility] Blood specimen (specimen) 11/18/2017 8:33 PM EDT 11/18/2017 8:52 PM EDT Narrative Resulting Agency Comment Spec In Lab Reagan Andrea [place] [address] * Hemogram (11/18/2017 8:33 PM EDT) Pathologist [facility] White Blood Cell 8.1 4.0 - 9.5 x10(3)/[facility] Red Blood Cell 5.15 4.58 - 5.54 x10(6)/[facility] Hemoglobin 14.8 13.7 - 16.5 gm/dL [facility] Hematocrit 44.9 40.5 - 48.5 % [facility] Mean Cell Volume 87.2 82.9 - 93.1 [facility] Mean Cell Hemoglobin 28.7 27.5 - 32.[address] [facility] Mean Cell Hemoglobin Concentration 33.0 32.0 - 35.7 gm/dL [facility] Platelet 189 145 - 357 x10(3)/[facility] RDW Standard Deviation 41.7 36.0 - 45.0 [facility] RDW coefficient of variation 13.2 11.4 - 13.8 % [facility] Mean Platelet Volume 10.5 7.6 - 12.9 [facility] NRBC% auto 0.0 % [facility] NRBC Absolute 0.000 0.000 - 0.000 x10(3)/[facility] Blood specimen (specimen) 11/18/2017 8:33 PM EDT 11/18/2017 8:52 PM EDT Narrative Resulting Agency Comment Spec In Lab Reagan Andrea MD HEMATOLOGY ORDERABLE S Performing Organization Address City/State/[facility] Co de Phone Number [facility] [place] [address] * (ABNORMAL) APTT (11/18/2017 8:33 PM EDT) Partial Thromboplastin Time 105(Criti john) 25 - [address] [facility] Comment: Called by: [facility], Read back by: Kira Clemons, Date/Time:11/18/17 [...] MD HEMATOLOGY ORDERABLE S Performing Organization Address [facility] Co de Phone Number [facility] [place] [address] * Prothrombin Time (11/18/2017 8:33 PM EDT) Prothrombin Time 11.2 9.4 - 12.[address] [facility] International Normalization Ratio 1.0 [facility] Comment: An INR <2.0 indicates [...] MD HEMATOLOGY ORDERABLE S Performing Organization Address [facility] Co de Phone Number [facility] [place] [address] * pro-Brain Natriuretic Peptide (11/18/2017 8:33 PM EDT) NT-proBNP 431 <=450 pg/mL [facility] Blood specimen (specimen) 11/18/2017 8:33 PM EDT 11/18/2017 8:52 PM EDT Narrative Resulting Agency Comment Spec In Lab Reagan Andrea MD CHEMISTRY ORDERABLES Performing Organization Address [facility] Co de Phone Number [facility] [place] [address] * Hepatic Function Panel (11/18/2017 8:33 PM EDT) [facility] Protein, Total 7.1 6.1 - 8.0 gm/dL [facility] Albumin 4.3 3.2 - 5.2 gm/dL [facility] Aspartate Aminotransferase 30 0 - 39 unit/L [facility] Alanine Aminotransferase 23 0 - 55 unit/L [facility] Alkaline Phosphatase 88 40 - 120 unit/L [facility] Bilirubin, Total 0.5 0.2 - 1.3 mg/dL [facility] Bilirubin, Direct 0.1 0.0 - 0.3 mg/dL [facility] Blood specimen (specimen) 11/18/2017 8:33 PM EDT 11/18/2017 8:52 PM EDT Narrative Resulting Agency Comment Spec In Lab Reagan Andrea MD CHEMISTRY ORDERABLES Performing Organization Address City/State/[facility] Co de Phone Number [facility] [place] [phone] * (ABNORMAL) Cardiac Enzymes (LEB/CGP) (11/18/2017 8:33 PM EDT) [facility] Troponin-T 0.09(H) 0.00 - 0.00 ng/mL [facility] Comment: The 99th percentile for Troponin T is less than 0.01 ng/mL, any detectable cTnT concentration using this assay should be considered elevated. According to the third universal definition of myocardial infarction the following criteria with a clinical presentation consistent with acute myocardial ischemia meets the diagnosis for a myocardial infarction ([place]). Detection of a rise and/or fall of cTnT, with at least one value greater than the 99th percentile (> or = 0.01) and with at least one of the following ?? Symptoms of ischemia ?? New or presumed new significant CS-osdmynf-Y wave (ST-T) changes or new left bundle [...] additional sample may be indicated. Reference: Third [place] Definition of Myocardial Infarction. Journal of the [place] College of Cardiology 2012;60:1581-98 Creatine Kinase 119 0 - 200 unit/L [facility] Blood specimen (specimen) 11/18/2017 8:33 PM EDT 11/18/2017 8:52 PM EDT Narrative Resulting Agency Comment Spec In Lab Reagan Andrea MD CHEMISTRY ORDERABLES [facility] [place] [address] * (ABNORMAL) Basic Metabolic Panel (non-fasting) (11/18/2017 8:33 PM EDT) Glucose 92 65 - 199 mg/dL [facility] Comment:Diabetes: >=200 mg/d L plus symptoms Blood Urea Nitrogen 27(H) 10 - 20 mg/dL [facility] Creatinine 1.46 0.80 - 1.50 mg/dL [facility] Sodium 141 135 - 145 mmol/L [facility] Potassium 3.9 3.5 - 5.0 mmol/L [facility] Comment: Please note: ??Patients with WBC >100,000 may have falsely elevated Potassium levels. ??For accurate Potassium quantification in these patients send serum separator tube (gold top) for subsequent determinations. ??Contact the Clinical Chemistry Laboratory if there are any questions. Chloride 101 98 - 107 mmol/L [facility] Carbon Dioxide 25 22 - 31 mmol/L [facility] Anion Gap 15 5 - 15 mmol/L [facility] Calcium 9.2 8.5 - 10.5 mg/dL [facility] Est Glomerular Filtration Rate 47(L) >=60 [facility] Comment: The reported eGFR should be multiplied by 1.2 for patients. The MDRD is not an appropriate measure of renal function for patients with body mass extremes or in patients with acute kidney failure. http://[employer].Digitwhiz/DHnkdep http://[employer].Digitwhiz/DHMCnkf Blood specimen (specimen) 11/18/2017 8:33 PM EDT 11/18/2017 8:52 PM EDT Narrative Resulting Agency Comment Spec In Lab Reagan Andrea MD CHEMISTRY ORDERABLES Performing Organization Address City/[facility] Co de Phone Number [facility] [place] [address] * EKG 12 Lead (11/18/2017 8:26 PM EDT) Ventricular rate 55 BPM MUSE SYSTEM Atrial Rate 55 BPM MUSE SYSTEM P-R Interval 216 ms MUSE SYSTEM QRS Duration 88 ms MUSE SYSTEM Q-T Interval 438 ms MUSE SYSTEM QTC Calculated (Bezet) 419 ms MUSE SYSTEM Calculated P [place] 36 degrees MUSE SYSTEM Calculated T [place] 42 degrees MUSE SYSTEM INTERPRETATION Sinus bradycardia with 1st degree A-V block Otherwise normal ECG No previous ECGs available Confirmed by MD ENCISO ALAN ([id number]) on 11/19/2017 10:16:03 AM MUSE SYSTEM 11/18/2017 8:26 PM EDT 11/19/2017 10:16 AM EDT Reagan Andrea MD ECG ORDERABLES Performing Organization Address City/[facility] Co de Phone Number [...] - Reason: Transfer to a Procedural area)1254 ([facility] Unhold - Provider: Admin Adt)1653 (Given - [...] Reason: See comment - Comment: allready given)1016 ([facility] Hold - Provider: Admin Adt - Reason: Transfer to a Procedural area)1254 ([facility] Unhold - Provider: Admin Adt)2012 (Given - Provider: Kong Brennan RN) 0801 (Given - Provider: Mathew Stringer RN) clopidogrel (PLAVIX) tablet 75 mg 75 mg, Oral, DAILY, First dose on Fri11/19/17 at 0900, Until Discontinued, Routine 0818 (Given - Provider: Mathew Stringer RN)1016 ([facility] Hold - Provider: Admin Adt - Reason: Transfer to a Procedural area)1254 ([facility] Unhold - Provider: Admin Adt) 0802 (Given [...] Brennan RN) 0801 (Given - Provider: Mathew Srtinger RN) sodium chloride 0.9 % flush 5 [...] - Reason: Transfer to a Procedural area)1254 ([facility] Unhold - Provider: Admin Adt)2100 (Not Given [...] - Reason: Transfer to a Procedural area)1254 ([facility] Unhold - Provider: Admin Adt) fentaNYL 50 [...] for discomfort with PIV insertion, Routine 1016 ([facility] Hold - Provider: Admin Adt - Reason: Transfer to a Procedural area)1254 ([facility] Unhold - Provider: Admin Adt) lidocaine (XYLOCAINE) 10 mg/mL (1 %) injection 3 mg 3 mg (0.3 mL), Subcutaneous, ONCE PRN, 1 dose, Starting on Fri11/18/17 at 2257, Until Nilda 11/20/17 at 1304, for discomfort with PIV insertion, Routine 1016 ([facility] Hold - Provider: Admin Adt - Reason: Transfer to a Procedural area)1254 ([facility] Unhold - Provider: Admin Adt) lidocaine (XYLOCAINE) [...] last 24 to 72 hours., Routine 1016 ([facility] Hold - Provider: Admin Adt - Reason: Transfer to a Procedural area)1254 ([facility] Unhold - Provider: Admin Adt) nitroGLYcerin 100 [...] provided on this medication record., Routine 1016 ([facility] Hold - Provider: Admin Adt - Reason: Transfer to a Procedural area)1254 ([facility] Unhold - Provider: Admin Adt) sodium chloride 0.9 % flush 5-20 mL 5-20 mL, Intravenous, EVERY 1 MIN PRN, Starting on Fri11/18/17 at 2257, Until Nilda 11/20/17 at 1304, flush, Flush pertains to all indwelling lines. Flush per protocol found in the job aid using the link provided on this medication record., Routine 1016 ([facility] Hold - Provider: Admin Adt - Reason: Transfer to a Procedural area)1254 ([facility] Unhold - Provider: Admin Adt) sodium chloride [...] UA) documented in this encounter Care Teams Detail Manager Relationship Specialty Start Date End Date Karo Otero MD [address] [place] [address] PCP - General Family Medicine 02/11/17 03/19/23 documented as of this encounter
--- OUTSIDE RECORDS SUMMARY | 2024-07-06 14:06 | XMS_ITS | Encounter Summary ---
[place] [address] Care Team Providers Care Van Driver Helper Name Role Phone Karo Otero MD Primary Care Provider [phone] Encounter Details Date Type Department Care Team (Late st Contact Info) Description 05/31/2019 Telephone Cardiology at [address] [phone] Betty Gerber [facility] [address] Social History Tobacco Use Types Packs/Day Years [...] 05/31/2019 Referring Provider: Dr. Sotomayor Patient Location: [facility] Tra Brothers III is a 78 y.o. [...] PM EST Office Visit Cardiology at [address] [phone] Joel Link MD [facility] [place] [address] 01/18/2025 10:15 AM EDT Office Visit Dermatology at [address] [phone] Mathew Fernando MD [address] [place] [address], [facility] DERMATOLOGY [place], [place] [id number] documented as of this encounter Visit Diagnoses Not on filedocumented in this encounter Care Teams Van Driver Helper Relationship Specialty Start Date End Date Karo Otero MD [address] [place] [address] PCP - General Family Medicine 02/11/17 03/19/23 documented as of this encounter
--- OUTSIDE RECORDS SUMMARY | 2024-07-06 14:06 | XMS_ITS | Encounter Summary ---
[place] [address] Care Team Providers Care Funeral Arranger Name Role Phone Karo Otero MD Primary Care Provider [phone] Reason for Visit * Reason Comments Follow-up 3 months Coronary Artery Disease Encounter Details Date Type Department Care Team (Late st Contact Info) Description 04/01/2018 9:40 AM EDT Office Visit Cardiology at [address] [phone] Sukh Mishra Jr., MD [address] [place] [address] Essential hypertension; ASCVD (arteriosclerotic cardiovascular disease); Elevated [...] PM EST Office Visit Cardiology at [address] [place] [address] Joel Link MD [facility] [place] [address] 01/18/2025 10:15 AM EDT Office Visit Dermatology at [address] [phone] Mathew Fernando MD [address] [place] [address], [facility] [place] [address] documented as of this encounter Visit Diagnoses Diagnosis Essential hypertension Unspecified essential hypertension ASCVD (arteriosclerotic cardiovascular disease) Unspecified cardiovascular disease Elevated cholesterol Pure hypercholesterolemia Orthostatic dizziness documented in this encounter Care Teams Funeral Arranger Relationship Specialty Start Date End Date Karo Otero MD [address] [place] [address] PCP - General Family Medicine 02/11/17 03/19/23 documented as of this encounter
--- OUTSIDE RECORDS SUMMARY | 2024-07-06 14:07 | XMS_ITS | Encounter Summary ---
Author Organization [facility] Address [address] [place] [address] Care Team Providers Care Vacuum Cleaner Repairer Name Role Phone Blanco Myles MD Primary Care Provider [phone] Reason for Visit * Reason Onset Date Comments Appointment Related 05/12/2023 Encounter Details Date Type Department Care Team (Late st Contact Info) Description 05/12/2023 Telephone [facility] Ophthalmology - [facility] [address], [place] [phone] Anjum Miranda MD [address] [facility], [address] [place] [address] Appointment Related Social History Tobacco [...] Care Team (Late st Contact Info) Description 09/03/2024 13:00 EST Office Visit [facility] Ophthalmology - [address] [address] Anjum Miranda MD [address] [place] [address] [address] [place] [phone] documented as of this encounter Visit Diagnoses Not on filedocumented in this encounter Care Teams Vacuum Cleaner Repairer Relationship Specialty Start Date End Date Blanco Myles MD [address] [facility] [address] [place] [address] PCP - General Emergency Medicine 04/07/23 documented as of this encounter
--- OUTSIDE RECORDS SUMMARY | 2024-07-06 14:07 | XMS_ITS | Encounter Summary ---
Author Organization [facility] Address [address] [place] [address] Care Team Providers Care Lacquerer Name Role Phone Blanco Myles MD Primary Care Provider [phone] Reason for Visit * Reason Comments Follow-up Encounter Details Date Type Department Care Team (Late st Contact Info) Description 12/26/2023 13:45 EDT Office Visit [facility] Ophthalmology - [address] [phone] Anjum Miranda MD 111 [facility], [address] 5 [place] [address] Social History Tobacco Use Types [...] mg/0.05 mL Route: intravitreal, Site: Left Eye [facility]: 16737-929-24, Lot: [id number], Expiration date: 10/16/2024 Post-op Post injection exam found visual acuity of at least counting fingers. The patient tolerated the procedure well. There were no complications. The patient received written and verbal post procedure care education. Post injection medications were not given. DIAGNOSES: 1. Exudative age-related macular degeneration of left eye with active choroidal neovascularization ([facility]) OCT, RETINA - OU - BOTH EYES [...] Info) Description 09/03/2024 13:00 EST Office Visit [facility] Ophthalmology - [facility] [address] [place] [address] Anjum Miranda MD [address] [facility], [address] 5 [place] [address] documented as of this encounter Procedures Procedure Name Priority Date/Time Associated Diagnosis Comments INTRAVITREAL INJECTION, PHARMACOLOGIC AGENT - OS - LEFT EYE Routine 12/26/2023 14:53 EDT Exudative age-related macular degeneration of left eye with active choroidal neovascularization ([facility]) OCT, RETINA - OU - BOTH EYES Routine 12/26/2023 14:47 EDT Exudative age-related macular degeneration of left eye with active choroidal neovascularization ([facility]) Intermediate stage nonexudative age-related macular degeneration of right eye documented in this encounter Results * INTRAVITREAL INJECTION, PHARMACOLOGIC AGENT - OS - LEFT EYE (12/26/2023 14:53 EDT) Narrative [facility] POINT OF CARE - 12/26/2023 15:22 EDT Time Out 12/26/2023. 14:36. Confirmed correct patient, procedure, site, and patient consented. Anesthesia Topical anesthesia was used. Anesthetic medications included Proparacaine 0.5%, Tetracaine 0.5%. Procedure Preparation included 5% betadine to ocular surface, eyelid speculum. A 30 gauge needle was used. Injection: 2 mg aflibercept 2 mg/0.05 mL ??Route: intravitreal, Site: Left Eye ??[facility]: 02178-229-53, Lot: [id number], Expiration date: 10/16/2024 Post-op Post injection exam found visual acuity of at least counting fingers. The patient tolerated the procedure well. There were no complications. The patient received written and verbal post procedure care education. Post injection medications were not given. Anjum Miranda MD OPHTH CLINIC PROCEDURES Final Re sult [facility] POINT OF CARE * OCT, RETINA - OU - BOTH EYES (12/26/2023 14:47 EDT) Narrative [facility] OPHTHALMOLOGY - 12/26/2023 15:23 EDT Right Eye Progression has been stable. Left Eye Quality was good. Progression has worsened. Findings include intraretinal fluid, pigment epithelial detachment, subretinal fluid. 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
--- OUTSIDE RECORDS SUMMARY | 2024-07-06 14:07 | XMS_ITS | Encounter Summary ---
Author Organization [facility] Address [address] [place] [address] Care Team Providers Care Casino Floor Person Name Role Phone Karo Otero MD Primary Care Provider [phone] Reason for Visit * Reason Comments Follow-up Encounter Details Date Type Department Care Team (Late st Contact Info) Description 03/01/2020 8:45 EDT Office Visit [facility] Ophthalmology - [address] [phone] Mu Acosta MD [address] [place] [address], [address] 5 [place] [address] Social History Tobacco Use Types [...] Psychiatric: NL Endocrine: NL Hematologic: Immunologic: NL Bending Press Operator: Exposures: None Other: Attestation: Allergies include: [...] sc 20/40 Refraction Wearing Rx Sphere Cylinder [place] Add Right -0.50 +0.50 155 150/3.00 Left [place] +0.50 018 150/300 Manifest Refraction Sphere Cylinder [place] Dist [place] Add Right -0.25 +0.25 010 20/25+2 +2.50 Left -0.75 +0.25 010 20/40 +2.50 Final Rx Sphere Cylinder [place] Add Right -0.25 +0.25 010 +2.50 Left [...] my own HPI and have reviewed the [facility]'s ROS as well. I personally completed [...] Info) Description 09/03/2024 13:00 EST Office Visit [facility] Ophthalmology - [address] [phone] Anjum Miranda MD 111 [facility], [address] [place] [address] documented as of this encounter Visit Diagnoses [...] ph sc 20/40 Wearing Rx Sphere Cylinder [place] Add Right eye -0.50 +0.50 155 150/3.00 Left eye [place] +0.50 018 150/300 Manifest Refraction Sphere Cylinder [place] Dist [place] Add Right eye -0.25 +0.25 010 20/25+2 +2.50 Left eye -0.75 +0.25 010 20/40 +2.50 Final Rx Sphere Cylinder [place] Add Right eye -0.25 +0.25 010 +2.50 Left eye -0.75 +0.25 010 +2.50 Expiration Date: 03/02/2021 Care Teams Casino Floor Person Relationship Specialty Start Date End Date Karo Otero MD [address] [place] [address] PCP - General 01/07/18 04/06/23 documented as of this encounter
--- OUTSIDE RECORDS SUMMARY | 2024-07-06 14:07 | XMS_ITS | Encounter Summary ---
Author Organization [facility] Address [address] [place] [address] Care Team Providers Care Equine Intern Name Role Phone Blanco Myles MD Primary Care Provider [phone] Reason for Visit * Reason Comments Follow-up Encounter Details Date Type Department Care Team (Late st Contact Info) Description 05/06/2023 13:00 EDT Office Visit [facility] Ophthalmology - [address] [phone] Anjum Miranda MD 111 [facility], [address] [place] [address] Social History Tobacco Use Types [...] bevacizumab Route: intravitreal, Site: Left Eye [facility]: [address]-93, Lot: [id number], Expiration date: 05/07/2023 Post-op Post injection exam [...] Info) Description 09/03/2024 13:00 EST Office Visit [facility] [place] [address] Anjum Miranda MD [address] [place] [address], [address] [place] [phone] documented as of this encounter Procedures Procedure [...] - LEFT EYE (05/06/2023 13:41 EDT) Narrative [facility] POINT OF CARE - 05/06/2023 14:35 EDT Time Out 05/06/2023. 13:35. Confirmed correct patient, procedure, site, and patient consented. Anesthesia Topical anesthesia was used. Anesthetic medications included Proparacaine 0.5%, Tetracaine 0.5%. Procedure Preparation included 5% betadine to ocular surface, eyelid speculum. A 30 gauge needle was used. Injection: 1.25 mg bevacizumab ??Route: intravitreal, Site: Left Eye ??[facility]: [address]-42, Lot: [id number], Expiration date: 05/07/2023 Post-op Post injection exam found visual acuity of at least counting fingers. The patient tolerated the procedure well. There were no complications. Post injection medications were not given. us Anjum Miranda MD OPHTH CLINIC PROCEDURES Final Re sult [facility] POINT OF CARE * OCT, RETINA - OU - BOTH EYES (05/06/2023 13:31 EDT) Narrative [facility] OPHTHALMOLOGY - 05/06/2023 14:35 EDT Right Eye Progression has been stable. Left Eye Quality was good. Progression has improved. Findings include pigment epithelial detachment, subretinal fluid. Notes Drusen, no fluid right eye Decrease in SRHRM as well left eye Anjum Miranda MD OPHTH TOMOGRAPHY Final Result [facility] OPHTHALMOLOGY documented in this encounter Visit Diagnoses [...] by SRH Vessels Normal Normal Care Teams Equine Intern Relationship Specialty Start Date End Date Blanco Myles MD [address] [facility] [address] [place] [address] PCP - General Emergency Medicine 04/07/23 documented as of this encounter
--- OUTSIDE RECORDS SUMMARY | 2024-07-06 14:07 | XMS_ITS | Encounter Summary ---
Author Organization [facility] Address [address] [place] [address] Care Team Providers Care Manager Process Name Role Phone Karo Otero MD Primary Care Provider [phone] Reason for Visit * Reason Onset Date Comments Eye Problem 12/13/2019 Encounter Details Date Type Department Care Team (Late st Contact Info) Description 12/13/[address] [facility] Ophthalmology - [address] [phone] Mu Acosta MD [address] [facility], [address] [place] [address] Eye Problem Social History Tobacco [...] Info) Description 09/03/2024 13:00 EST Office Visit [facility] Ophthalmology - [facility] [address] [place] [address] Anjum Miranda MD [address] [facility], [address] [place] [phone] documented as of this encounter Visit Diagnoses Not on filedocumented in this encounter Care Teams Manager Process Relationship Specialty Start Date End Date Karo Otero MD [address] [place] [address] PCP - General 01/07/18 04/06/23 documented as of this encounter
--- OUTSIDE RECORDS SUMMARY | 2024-07-06 14:07 | XMS_ITS | Clinical Summary ---
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 Ophthalmology [address] [address] Anjum Miranda MD 04/30/2024 13:00 EDT Office Visit [address] [address] Anjum Miranda MD from Last 3 Months Surgical History Surgery Date Site/Laterality Comments TOTAL KNEE ARTHROPLASTY 2011 Right in [place] s/p I&D - antibiotics then 2 nd [...] TKR GA- no problems MOHS SURGERY local [place] XCAPSL CTRC RMVL INSJ IO LENS PROSTH W/O ECP 09/29/2019 Eye/Left Cataract Extraction w/IOL Implant, LEFT EYE performed by Mu Acosta MD at [facility] Medical devices from [...] CAD (coronary artery disease) Post PTCA 2 2018 Hyperlipidemia 09/22/19 - control led with med 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 Anemia s/p 2019 femur f x repair - 2units PRB Depression controlled with med Cancer ([facility]) skin cancer Other states following surge ry of eye and adnexa Stroke ([facility]) Family History Medical History Relation Comments [...] Info) Description 09/03/2024 13:00 EST Office Visit [facility] Ophthalmology - [place] [address] [place] [address] Anjum Miranda MD [address] [place] [address], [address] [place] [address] Health Maintenance Due Date Last Done Comments Fall Risk Screening 12/06/2004 RSV Immunization ( o r 60+ Years) (1 - 1-dose 75+ series) 12/06/2014 COVID-19 Vaccine ( season) 2024 Medical Devices Implanted Type Area Sales Center Manager Device Identifier Shelf Expiration Date Model / Serial / Lot Lens Intraocular Monfocl Ant Bicnvx Opt Foldable +21.0d Wavefront [id number] - [id number] - [id number] Implanted:Qty: 1 on 09/29/2019 by Mu Acosta MD at [facility] Lens Left: Eye [employer] [id number] 04/17/2024 [id number] .0 / [id number] / Lens Intraocular Monfocl Ant Bicnvx Opt Foldable +20.5d [employer]front [id number] - [id number] - [id number] Implanted:Qty: 1 on 10/14/2019 by Mu Acosta MD at [facility] Lens Right: Eye [employer] [id number] 03/17/2024 [id number] .5 / [id number] / Procedures Procedure Name Priority Date/Time Associated Diagnosis Comments INTRAVITREAL INJECTION, PHARMACOLOGIC AGENT - OS - LEFT EYE Routine 07/02/2024 14:28 EST Exudative age-related macular degeneration of 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) OCT, RETINA - OU - BOTH EYES Routine 07/02/2024 14:10 EST Exudative age-related macular degeneration of 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) Intermediate stage nonexudative age-related macular degeneration of right eye OCT, RETINA - OU - BOTH [...] (HCC-CMS) from Last 3 Months Results * INTRAVITREAL INJECTION, PHARMACOLOGIC AGENT - OS - LEFT EYE (07/02/2024 14:28 EST) Narrative [facility] POINT OF CARE - 07/02/2024 14:30 EST Time Out 07/02/2024. 14:18. Confirmed correct patient, procedure, site, and patient consented. Anesthesia Topical anesthesia was used. Anesthetic medications included Proparacaine 0.5%. Procedure Preparation included 5% betadine to ocular surface, eyelid speculum. A 30 gauge needle was used. Injection: 8 mg aflibercept 8 mg/0.07 mL ??Route: intravitreal, Site: Left Eye ??[facility]: 85995-051-16, Lot: [id number], Expiration date: 08/17/2025 Post-op Post injection exam found visual acuity of at least counting fingers. The patient tolerated the procedure well. There were no complications. Post injection medications were not given. Anjum Miranda MD OPHTH CLINIC PROCEDURES Final Re sult Performing Organization Address [facility]/State/ZIP Co de Phone Number [facility] POINT OF CARE * OCT, RETINA - OU - BOTH EYES (07/02/2024 14:10 EST) Narrative [facility] OPHTHALMOLOGY - 07/02/2024 14:30 EST Right Eye Progression has been stable. Findings include normal foveal contour. Left Eye Quality was good. Progression has been stable. Findings include intraretinal fluid, subretinal scarring. Notes Drusen, no fluid right eye intraretinal fluid over SRfibrosis left eye Anjum Miranda MD OPHTH TOMOGRAPHY Final Result Performing Organization Address [facility] de Phone Number [facility] OPHTHAL[facility]OLOGY * OCT, RETINA - OU - BOTH EYES (04/30/2024 14:44 EDT) Narrative [facility] OPHTHALMOLOGY - 05/03/2024 11:16 EDT Right Eye Progression has been stable. Findings include normal foveal contour. Left Eye Quality was good. Progression has been stable. Findings include intraretinal fluid, pigment epithelial detachment. Notes Drusen, no fluid right eye intraretinal fluid over SRfibrosis left eye Anjum Miranda MD OPHTH TOMOGRAPHY Final Result Performing Organization Address [facility] de Phone Number [facility] OPHTHALMOLOGY * INTRAVITREAL INJECTION, PHARMACOLOGIC AGENT - OS - LEFT EYE (04/30/2024 14:43 EDT) Narrative [facility] POINT OF CARE - 05/03/2024 11:16 EDT Time Out 04/30/2024. 14:43. Confirmed correct patient, procedure, site, and patient consented. Anesthesia Topical anesthesia was used. Anesthetic medications included Proparacaine 0.5%, Tetracaine 0.5%. Procedure Preparation included 5% betadine to ocular surface, eyelid speculum. A 30 gauge needle was used. Injection: 8 mg aflibercept 8 mg/0.07 mL ??Route: intravitreal, Site: Left Eye ??[facility]: 41818-132-87, Lot: [id number], Expiration date: 07/17/2025 Post-op Post injection exam found visual acuity of at least counting fingers. The patient tolerated the procedure well. There were no complications. The patient received written and verbal post procedure care education. Post injection medications were not given. Anjum Miranda MD OPHTH CLINIC PROCEDURES Final Re sult Performing Organization Address [facility] de Phone Number [facility] POINT OF CARE from Last 3 Months Insurance [facility] [place] [address] Advance Directives For more information, please contact: [phone] * Full Code (Latest Code Status on [...] participated in the discussion? Patient Care Teams Lead Systems Engineer Relationship Specialty Start Date End Date Blanco Myles MD 26 [facility] [address] [place] [address] PCP - General Emergency Medicine 04/07/23
--- OUTSIDE RECORDS SUMMARY | 2024-07-06 14:07 | XMS_ITS | Encounter Summary ---
Author Organization [facility] Address [address] [place] [address] Care Team Providers Care Legal Receptionist Name Role Phone Karo Otero MD Primary Care Provider [phone] Blanco Myles MD Primary Care Provider [phone] Encounter Details Date Type Department Care Team (Late st Contact Info) Description 09/21/2020 Lab Requisition [facility] Pathology & Laboratory Medicine - [address] [address] Outr Resulting Lab, Provider Social History Tobacco [...] of Assessment Author No 01/07/2018 21:35 Kita Seogvia RN * Because of a physical, mental, [...] Info) Description 09/03/2024 13:00 EST Office Visit [facility] - [address] [phone] Anjum Miranda MD [address] [place] [address], [address] [place] [address] documented as of this encounter Procedures Procedure Name Priority Date/Time Associated Diagnosis Comments PSA TOTAL, DIAGNOSTIC Routine 09/21/2020 8:00 EST documented in this encounter Results * PSA TOTAL, DIAGNOSTIC (09/21/2020 8:00 EST) PSA 0.4 0.0 - 6.5 ng/mL 09/21/2020 22:[address] [facility] Blood VENOUS BLOOD / Unknown 09/21/2020 8:00 EST 09/21/2020 20:[address] [facility] - 09/21/2020 22:22 EST NOTE: Serum PSA concentration should not be interpreted as absolute evidence for the presence or absence of malignant disease. Assayed on Siemens ADVIA Centaur XPT using chemiluminescent technology.??Values obtained by using different assay methods cannot be used interchangeably. us Provider Outr Resulting Lab CHEMISTRY & BLOOD GA S ORDERABLES Final Result [facility] [address] [place] [address] documented in this encounter Visit Diagnoses Not on filedocumented in this encounter Care Teams Legal Receptionist Relationship Specialty Start Date End Date Karo Otero MD [address] [place] [address] PCP - General 01/07/18 04/06/23 Blanco Myles MD 26 [facility] [address] [place] [address] PCP - General Emergency Medicine 04/07/23 documented as of this encounter
--- OUTSIDE RECORDS SUMMARY | 2024-07-06 14:07 | XMS_ITS | Encounter Summary ---
Author Organization [facility] [address] Care Team Providers Care Marketing Pr Intern Name Role Phone Karo Otero MD Primary Care Provider [phone] Encounter Details Date Type Department Care Team (Late st Contact Info) Description 02/11/2017 Refill Dermatology at [address] [address] Shana Lowe, MARIA ELENA Social [...] PM EST Office Visit Cardiology at [address] [address] Joel Link MD [facility] [place] [address] 01/18/2025 10:15 AM EDT Office Visit Dermatology at [address] [address] Mathew Fernando MD [address] [place] [address] [place] [address] documented as of this encounter Visit Diagnoses Not on filedocumented in this encounter Care Teams Marketing Pr Intern Relationship Specialty Start Date End Date Karo Otero MD [address] [place] [address] PCP - General Family Medicine 02/11/17 03/19/23 documented as of this encounter
--- OUTSIDE RECORDS SUMMARY | 2024-07-06 14:07 | XMS_ITS | Encounter Summary ---
Author Organization [facility] Address [address] [place] [address] Care Team Providers Care Tutor Coordinator Name Role Phone Karo Otero MD Primary Care Provider [phone] Reason for Visit * Reason Comments Follow-up Encounter Details Date Type Department Care Team (Late st Contact Info) Description 01/24/2020 9:00 EDT Office Visit [facility] Ophthalmology - [address] [phone] Mu Acosta MD [address] [place] [address], [address] [place] [address] Social History Tobacco Use Types [...] capsulotomy, left eye Surgeon: Mu Acosta MD Employee'S Representative: ROBBIN Florez Complications: None Anesthesia: Topical Patient [...] Info) Description 09/03/2024 13:00 EST Office Visit [facility] Ophthalmology - [address] [phone] Anjum Miranda MD [address] [facility], [address] [place] [address] documented as of this encounter Procedures Procedure Name Priority Date/Time Associated Diagnosis Comments YAG CAPSULOTOMY - OS - LEFT EYE Routine 01/24/2020 13:39 EDT Posterior capsular opacification, left documented in this encounter Results * YAG CAPSULOTOMY - OS - LEFT EYE (01/24/2020 13:39 EDT) Narrative PO[facility] - 01/24/2020 13:39 EDT Anesthesia Topical anesthesia was used. Anesthesia medications included Alphagan 0.15%. Laser Information The type of laser was yag. Post-op The patient tolerated the procedure well. There were no complications. The patient received written and verbal post procedure care education. Notes Procedure note: YAG capsulotomy, left eye Surgeon: Mu Acosta MD Employee'S Representative: ROBBIN Florez Complications: None Anesthesia: Topical Patient [...] CLINIC PROCEDURES Final Result [facility] documented in this encounter Visit [...] Ph enylephrine 2.5% @ 9:47 Care Teams Tutor Coordinator Relationship Specialty Start Date End Date Karo Otero MD [address] [place] [address] PCP - General 01/07/18 04/06/23 documented as of this encounter
--- OUTSIDE RECORDS SUMMARY | 2024-07-06 14:07 | XMS_ITS | Encounter Summary ---
Author Organization [facility] Address [address] [place] [address] Care Team Providers Care Microwave Radio Technician Name Role Phone Joo Otero MD Primary Care Provider [phone] Blanco Myles MD Primary Care Provider [phone] Encounter Details Date Type Department Care Team (Late st Contact Info) Description 02/04/2022 Lab Requisition [facility] Pathology & Laboratory Medicine - [facility] [address] [place] [address] Ventura Stuart MD [address] [place] [phone] Encounter for other general examination Social [...] Visit [facility] Ophthalmology - [address] [phone] Anjum Miranda MD 111 [facility], Level 5 [place] [address] documented as of this encounter [...] explore management options, if applicable. 02/07[facility]2022 10:39 [facility] Final Diagnosis A. GALLBLADDER, CHOLECYSTECTOMY: - Severe acute erosive focally gangrenous cholecystitis. 02/07/2022 10:39 [facility] Attestation There was significant resident/fellow involvement in the diagnostic evaluation of this case. By the signature below, the attending physician certifies that they have personally conducted a gross and/or microscopic examination of the described specimens and rendered or confirmed the above diagnosis. 02/07/2022 10:39 [facility] at 1039 Clinical History Cholecystitis 02/07/2022 10:39 [facility] Gross Description A. Received in [...] blue. No choleliths identified grossly. Two accounts receivable representative sections and the en face cystic duct margin are submitted in A1. JOO LI DO 02/05/2022 13:55 02/07/2022 10:39 [facility] Resident/[place] w: Joo Li DO 02/07/2022 10:39 [facility] Performing Lab [facility] 02/07/2022 10:39 [facility] Scanned Images 02/07/2022 10:39 [facility] Tissue ENTIRE GALLBLADDER / Unknown 02/02/2022 13:15 EDT 02/04/2022 17:18 EDT us Ventura Stuart MD PATHOLOGY ORDERABLES F inal Result [facility] [address] [place] [address] documented in this encounter Visit Diagnoses Diagnosis Encounter for other general examination documented in this encounter Care Teams Microwave Radio Technician Relationship Specialty Start Date End Date Joo Otero MD [address] [place] [address] PCP - General 01/07/18 04/06/23 Blanco Myles MD 26 [facility] [address] [place] [address] PCP - General Emergency Medicine 04/07/23 documented as of this encounter
--- OUTSIDE RECORDS SUMMARY | 2024-07-06 14:07 | XMS_ITS | Encounter Summary ---
Author Organization [facility] Address [address] [place] [address] Care Team Providers Care Electrical Line Mechanic Name Role Phone Blanco Myles MD Primary Care Provider [phone] Reason for Visit * Reason Comments Eye Problem Encounter Details Date Type Department Care Team (Late st Contact Info) Description 07/02/2024 13:30 EST Office Visit [facility] Ophthalmology - [address] [phone] Anjum Miranda MD 111 [facility], Level 5 [place] [address] Social History Tobacco Use Types [...] Progress Notes * Anjum Miranda MD - 07/02/2024 1330 EST Chief Complaint Patient presents with Eye Problem HPI 9 weeks f/u wet age-related macular degeneration -left eye, s/p Eylea HD 04/30/24 No pain, flashes, or floaters Base Eye Exam Visual Acuity (Snellen - Linear) Right Left Dist cc 20/25 20/60 -2 Tonometry (Applanation, 13:39) Right Left Pressure 13 14 Neuro/Psych Oriented x3: Yes Mood/Affect: Normal Dilation Both eyes: Phenylephrine 2.5%, Tropicamide 1% @ 13:39 Slit Lamp and Fundus Exam Slit Lamp Exam Right Left Conjunctiva/Sclera White and quiet White and quiet Cornea Clear Clear Anterior Chamber Deep and quiet Deep and quiet Iris Dilated Dilated Lens Posterior chamber intraocular lens Posterior chamber intraocular lens Fundus Exam Right Left Disc healthy healthy C/D Ratio 0.3 0.3 Macula rare large drusen Subretinal fibrosis Vessels Normal Normal Periphery Attached Attached Please refer to large retinal drawing. OCT, Retina - OU - Both Eyes Right Eye Progression has been stable. Findings include normal foveal contour. Left Eye Quality was good. Progression has been stable. Findings include intraretinal fluid, subretinal scarring. Notes Drusen, no fluid right eye intraretinal fluid over SRfibrosis left eye Intravitreal Injection, Pharmacologic Agent - OS - Left Eye Time Out 07/02/2024. 14:18. Confirmed correct patient, procedure, site, and patient consented. Anesthesia Topical anesthesia was used. Anesthetic medications included Proparacaine 0.5%. Procedure Preparation included 5% betadine to ocular surface, eyelid speculum. A 30 gauge needle was used. Injection: 8 mg aflibercept 8 mg/0.07 mL Route: intravitreal, Site: Left Eye [facility]: 48202-805-11, Lot: [id number], Expiration date: 08/17/2025 Post-op Post injection exam found visual acuity of at least counting fingers. The patient tolerated the procedure well. There were no complications. Post injection medications were not given. IMPRESSION: 1. Exudative age-related macular degeneration of left eye with active choroidal neovascularization ([facility]) OCT, RETINA - OU - BOTH EYES INTRAVITREAL INJECTION, PHARMACOLOGIC AGENT - OS - LEFT EYE aflibercept (EYLEA HD) intravitreal solution 8 mg 2. Intermediate stage nonexudative age-related macular degeneration of right eye OCT, RETINA - OU -BOTH EYES PLAN: Wet age related macular Degeneration left eye [...] membrane Return in about 9 weeks (around 09/03/2024), or if symptoms worsen or fail to improve, for dilation,OCT, Eylea, left eye. I, Anjum Miranda MD, have performed my own history, and have evaluated and examined the patient myself. I am scribing for Anjum Miranda MD while he is personally performing the service. CHELSEA Holcomb (Scribe) documented in this encounter Plan of Treatment Upcoming Encounters Date Type Department Care Team (Late st Contact Info) Description 09/03/2024 13:00 EST Office Visit [facility] Ophthalmology - [place] [address] [place] [address] Anjum Miranda MD 111 [facility], [address] 5 [place] [phone] documented as of this encounter Procedures Procedure [...] - LEFT EYE (07/02/2024 14:28 EST) Narrative [facility] POINT OF CARE - 07/02/2024 14:30 EST Time Out 07/02/2024. 14:18. Confirmed correct patient, procedure, site, and patient consented. Anesthesia Topical anesthesia was used. Anesthetic medications included Proparacaine 0.5%. Procedure Preparation included 5% betadine to ocular surface, eyelid speculum. A 30 gauge needle was used. Injection: 8 mg aflibercept 8 mg/0.07 mL ??Route: intravitreal, Site: Left Eye ??[facility]: [id number], Lot: [id number], Expiration date: 08/17/2025 Post-op Post injection exam found visual acuity of at least counting fingers. The patient tolerated the procedure well. There were no complications. Post injection medications were not given. us Anjum Miranda MD OPHTH CLINIC PROCEDURES Final Re sult [facility] POINT OF CARE * OCT, RETINA - OU - BOTH EYES (07/02/2024 14:10 EST) Narrative [facility] OPHTHALMOLOGY - 07/02/2024 14:30 EST Right Eye Progression has been stable. Findings include normal foveal contour. Left Eye Quality was good. Progression has been stable. Findings include intraretinal fluid, subretinal scarring. Notes Drusen, no fluid right eye intraretinal fluid over SRfibrosis left eye Anjum Miranda MD OPHTH TOMOGRAPHY Final Result [facility] OPHTHALMOLOGY documented in this encounter [...] 8 mg 8 mg, intravitreal, Starting on Fri07/02/24 at 1430, Until Fri07/02/24 at 1430, RoutineIndications:Exudative age-related macular degeneration of 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) Given 07/02/2024 14:30 EST 8 mg Left Eye documented in this encounter Orders Medications Ordered That Blayne ht Not Have Been Administered Count Last Ordered Date First Ordered Date aflibercept (EYLEA HD) intra vitreal solution 8 mg 1 07/02/2024 documented in this encounter Eye Exam Visual Acuity (Snellen - Linear) Right eye Left eye Dist cc 20/25 20/60 -2 Tonometry (Applanation, 13:39) Right eye Left eye Pressure 13 14 Neuro/Psych Oriented x3: Yes Mood/Affect: Normal Dilation Both eyes: Phenylephrine 2.5 %, Tropicamide 1% @ 13:39 Slit Lamp Exam Right eye Left eye [...] Normal Periphery Attached Attached Care Teams Electrical Line Mechanic Relationship Specialty Start Date End Date Blanco Myles MD [facility] [address] [place] [address] PCP - General Emergency Medicine 04/07/23 documented as of this encounter
--- OUTSIDE RECORDS SUMMARY | 2024-07-06 14:07 | XMS_ITS | Encounter Summary ---
Author Organization [facility] Address [address] [place] [address] Care Team Providers Care Rf Technician Name Role Phone Blanco Myles MD Primary Care Provider [phone] Reason for Visit * Reason Onset Date Comments Eye Problem 04/07/2023 Encounter Details Date Type Department Care Team (Late st Contact Info) Description 04/07/2023 Telephone [facility] Ophthalmology - [facility] [address] [place], [place] [phone] Mu Acosta MD 111 [facility], Level 5 [place] [address] Eye Problem Social History Tobacco [...] Ramires RN - 04/07/2023 0937 EDT Per [facility]. Schedule patient for visit with him [...] number for us to speak to you? [phone] (VERIFY THE PHONE NUMBERS REGARDLESS OF WHAT [...] Info) Description 09/03/2024 13:00 EST Office Visit [facility] Ophthalmology - [address] [phone] Anjum Miranda MD 111 [facility], [address] [place] [address] documented as of this encounter Visit Diagnoses Not on filedocumented in this encounter Care Teams Rf Technician Relationship Specialty Start Date End Date Blanco Myles MD 26 [facility] [address] [place] [address] PCP - General Emergency Medicine 04/07/23 documented as of this encounter
--- OUTSIDE RECORDS SUMMARY | 2024-07-06 14:07 | XMS_ITS | Encounter Summary ---
Author Organization [facility] Address [address] [place] [address] Care Team Providers Care Drill Press Set Up Operator Radial Name Role Phone Karo Otero MD Primary Care Provider [phone] Reason for Visit * Reason Comments Eye Exam Follow-up Encounter Details Date Type Department Care Team (Late st Contact Info) Description 11/16/2021 10:00 EDT Office Visit [facility] Ophthalmology - [address] [phone] Mu Acosta MD 111 [facility], Level 5 [place] [address] Social History Tobacco Use Types [...] (asa 81 mg daily) Immunologic: Drug Allergy Business Development Intern: Exposures: None Other: Attestation: Allergies include: Percocet [...] Normal Normal Refraction Wearing Rx Sphere Cylinder [place] Add Right -0.50 +0.50 155 150/3.00 Left [place] +0.50 018 150/300 DIAGNOSTIC TESTS: IMPRESSION & [...] Info) Description 09/03/2024 13:00 EST Office Visit [facility] Ophthalmology - [facility] [address] [place] [address] Anjum Miranda MD 111 [facility], [address] [place] [address] documented as of this encounter [...] Vessels Normal Normal Wearing Rx Sphere Cylinder [place] Add Right eye -0.50 +0.50 155 150/3.00 Left eye [place] +0.50 018 150/300 Care Teams Drill Press Set Up Operator Radial Relationship Specialty Start Date End Date Karo Otero MD [address] [place] [address] PCP - General 01/07/18 04/06/23 documented as of this encounter
--- OUTSIDE RECORDS SUMMARY | 2024-07-06 14:07 | XMS_ITS | Encounter Summary ---
[place] [address] Care Team Providers Care Color Control Supervisor Name Role Phone Karo Otero MD Primary Care Provider [phone] Reason for Visit * Reason Comments Skin Check Encounter Details Date Type Department Care Team (Late st Contact Info) Description 02/11/2017 8:30 AM EDT Office Visit Dermatology at [place] [address] [facility] [address] Mathew Fernando MD 580 [facility] [place] [address] History of basal cell carcinoma; AK (actinic [...] a 76-year-old gentleman who is originally from [place], [place] and his is from [place], [place]. They lived in [place] for a number of years, but now have moved back up to [place] and reside in [place]. He states that while living in [place] he was seen on a q.[address] 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 This was called in to his [facility] in [place], [place]. b. Recommend I see him again [...] PM EST Office Visit Cardiology at [address] [address] Joel Link MD [facility] [place] [address] 01/18/2025 10:15 AM EDT Office Visit Dermatology at [address] [address] Mathew Fernando MD [address] [place] [address], [place] [address] documented as of this encounter Visit Diagnoses Diagnosis History of basal cell carcinoma Personal history of other malignant neoplasm of skin [place] (actinic keratosis) Actinic keratosis documented in this encounter Care Teams Color Control Supervisor Relationship Specialty Start Date End Date Karo Otero MD [address] [place] [address] PCP - General Family Medicine 02/11/17 03/19/23 documented as of this encounter
--- OUTSIDE RECORDS SUMMARY | 2024-07-06 14:07 | XMS_ITS | Encounter Summary ---
Author Organization [facility] Address [address] [place] [address] Care Team Providers Care Field Administrator Name Role Phone Blanco Myles MD Primary Care Provider [phone] Reason for Visit * Reason Comments Follow-up * Prior Authorization (Routine) - Authorized Specialty Diagnoses / Procedures [facility] To Contact Diagnoses Exudative age-related macular degeneration of left eye with active choroidal neovascularization ([facility]) Intermediate stage nonexudative age-related macular degeneration of right eye Procedures [place] INTRAVITREAL NJX PHARMACOLOGIC AGT SPX [place] INJECTION, AFLIBERCEPT HD, [address] [address] Phone: tel: fax: [address] [address] Phone: tel: fax: Referral ID Status Reason Start Date Expiration Date V isits Requested Visits Authorized [id number] Authorized 02/27/2024 02/26/2025 2 7 Encounter Details Date Type Department Care Team (Late st Contact Info) Description 02/27/2024 13:45 EDT Office Visit [address] [address] Anjum Miranda MD 111 [facility], [facility] [address] [place] [address] Social History Tobacco Use Types [...] Notes * Anjum Miranda MD - 02/27/2024 7623 EDT Chief Complaint Patient presents with Follow-up [...] mg/0.07 mL Route: intravitreal, Site: Left Eye [facility]: 47968-996-34, Lot: [id number], Expiration date: 12/15/2024 Post-op Post injection exam found visual acuity of at least counting fingers. The patient tolerated the procedure well. There were no complications. The patient received written and verbal post procedure care education. Post injection medications were not given. DIAGNOSES: 1. Exudative age-related macular degeneration of left eye with active choroidal neovascularization ([facility]) OCT, RETINA - OU - [...] 09/03/2024 13:00 EST Office Visit [facility] Ophthalmology - [address] [phone] Anjum Miranda MD 111 [facility], [address] [place] [address] documented as of this encounter [...] - LEFT EYE (02/27/2024 14:57 EDT) Narrative [facility] POINT OF CARE - 02/27/2024 15:03 EDT Time Out 02/27/2024. 14:57. Confirmed correct patient, procedure, site, and patient consented. Anesthesia Topical anesthesia was used. Anesthetic medications included Proparacaine 0.5%, Tetracaine 0.5%. Procedure Preparation included 5% betadine to ocular surface, eyelid speculum. A 30 gauge needle was used. Injection: 8 mg aflibercept 8 mg/0.07 mL ??Route: intravitreal, Site: Left Eye ??[facility]: 51400-381-39, Lot: [id number], Expiration date: 12/15/2024 Post-op Post injection exam found visual acuity of at least counting fingers. The patient tolerated the procedure well. There were no complications. The patient received written and verbal post procedure care education. Post injection medications were not given. Anjum Miranda MD OPHTH CLINIC PROCEDURES Final Re sult Performing Organization Address [facility] de Phone Number [facility] POINT OF CARE * OCT, RETINA - OU - BOTH EYES (02/27/2024 14:44 EDT) Narrative [facility] OPHTHALMOLOGY - 02/27/2024 15:03 EDT Right Eye Progression has been stable. Findings include normal foveal contour. Left Eye Quality was good. Progression has been stable. Findings include intraretinal fluid, pigment epithelial detachment. Notes Drusen, no fluid right eye intraretinal fluid over SRfibrosis left eye Anjum Miranda MD OPHTH TOMOGRAPHY Final Result Performing Organization Address [facility] de Phone Number [facility] OPHTHALMOLOGY documented in this [...] Normal Normal Periphery Attached Attached Care Teams Field Administrator Relationship Specialty Start Date End Date Blanco Myles MD 26 [facility] [address] [place] [address] PCP - General Emergency Medicine 04/07/23 documented as of this encounter
--- OUTSIDE RECORDS SUMMARY | 2024-07-06 14:07 | XMS_ITS | Encounter Summary ---
Author Organization [facility] [place] [facility] Address [address] [place] [address] Care Team Providers Care Cis Coordinator Name Role Phone Karo Otero MD Primary Care Provider [phone] Reason for Visit * Auth/Cert Specialty Diagnoses / Procedures 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 age-related cataract of both eyes [H25.813] Procedures ND XCAPSL CTRC RMVL INSJ IO LENS PROSTH W/O ECP Cataract Extraction w/IOL Implant, RIGHT EYE Referral ID Status Reason Start Date Expiration Date Visits Re quested Visits Authorized [id number] 1 1 Encounter Details Date Type Department Care Team (Late st Contact Info) Description 10/14/2019 14:16 EST Anesthesia Event [facility] Operating Room [address] [place] [address] Swapnil Lechuga MD [address] [address] Miriam Mullen CRNA [address] [address] Anesthesia Record Procedure Summary Procedure [...] Date of Assessment Author No 01/07/2018 21:35 Ktia Segovia RN * Do you have difficulty [...] Evaluation - Miriam Mullen APRN - 10/14/2019 3705 EST Patient: Tra Brothers III Last Vitals [...] Evaluation - Swapnil Lechuga MD - 10/14/2019 2572 EST Anesthesia Preprocedure Evaluation Patient Medical History, [...] Info) Description 09/03/2024 13:00 EST Office Visit [facility] Ophthalmology - [facility] [address] [place] [address] Anjum Miranda MD 111 [facility], [address] [place] [address] documented as of this encounter Visit Diagnoses [...] mg documented in this encounter Care Teams Cis Coordinator Relationship Specialty Start Date End Date Karo Otero MD [address] [place] [address] PCP - General 01/07/18 04/06/23 documented as of this encounter
--- OUTSIDE RECORDS SUMMARY | 2024-07-06 14:07 | XMS_ITS | Referral Summary ---
Author Organization [facility] Address [address] [place] [address] Care Team Providers Care Coiled Tubing Supervisor Name Role Phone Blanco Myles MD Primary Care Provider [phone] Encounters Date Type Department Care Team Description 07/02/2024 13:30 EST Office Visit [address] [id number] Anjum Miranda MD 04/30/2024 13:00 EDT Office Visit [facility] [address], [place] [address] Anjum Miranda MD from Last 3 Months [...] (09/09/2019): Added automatically from request for surgery [id number] Acute blood loss anemia 01/13/2018 Periprosthetic fracture [...] Info) Description 09/03/2024 13:00 EST Office Visit [facility] Ophthalmology - [address] [address] Anjum Miranda MD [address] [place] [address], [address] [place] [address] Medical Devices Implanted Type Area Sorter Pricer Device Identifier Shelf Expiration Date Model / Serial / Lot Lens Intraocular Monfocl Ant Bicnvx Opt Foldable +21.0d Wavefront [id number] - [id number] - [id number] Implanted:Qty: 1 on 09/29/2019 by Mu Acosta MD at [facility] Lens Left: Eye [employer] [id number] 04/17/2024 [id number] .0 / [id number] / Lens Intraocular Monfocl Ant Bicnvx Opt Foldable +20.5d Wavefront [id number] - [id number] - [id number] Implanted:Qty: 1 on 10/14/2019 by Mu Acosta MD at [facility] Lens Right: Eye [employer] [id number] 03/17/2024 [id number] .5 / [id number] / Procedures Procedure Name Priority Date/Time [...] - LEFT EYE (07/02/2024 14:28 EST) Narrative [facility] POINT OF CARE - 07/02/2024 14:30 EST Time Out 07/02/2024. 14:18. Confirmed correct patient, procedure, site, and patient consented. Anesthesia Topical anesthesia was used. Anesthetic medications included Proparacaine 0.5%. Procedure Preparation included 5% betadine to ocular surface, eyelid speculum. A 30 gauge needle was used. Injection: 8 mg aflibercept 8 mg/0.07 mL ??Route: intravitreal, Site: Left Eye ??[facility]: 52739-628-89, Lot: [id number], Expiration date: 08/17/2025 Post-op Post injection exam found visual acuity of at least counting fingers. The patient tolerated the procedure well. There were no complications. Post injection medications were not given. Result [facility] Anjum Miranda MD OPHTH CLINIC PROCEDURES Final Re sult Performing Organization Address [facility] Phone Number [facility] POINT OF CARE * OCT, RETINA - OU - BOTH EYES (07/02/2024 14:10 EST) Narrative [facility] OPHTHALMOLOGY - 07/02/2024 14:30 EST Right Eye Progression has been stable. Findings include normal foveal contour. Left Eye Quality was good. Progression has been stable. Findings include intraretinal fluid, subretinal scarring. Notes Drusen, no fluid right eye intraretinal fluid over SRfibrosis left eye Result [facility] Anjum Miranda MD OPHTH TOMOGRAPHY Final Result Performing Organization Address [facility] Phone Number [facility] OPHTHALMOLOGY * OCT, RETINA - OU - BOTH EYES (04/30/2024 14:44 EDT) Narrative [facility] OPHTHALMOLOGY - 05/03/2024 11:16 EDT Right Eye Progression has been stable. Findings include normal foveal contour. Left Eye Quality was good. Progression has been stable. Findings include intraretinal fluid, pigment epithelial detachment. Notes Drusen, no fluid right eye intraretinal fluid over SRfibrosis left eye Result [facility] Anjum Miranda MD OPHTH TOMOGRAPHY Final Result Performing Organization Address [facility] de Phone Number [facility] OPHTHALMOLOGY * INTRAVITREAL INJECTION, PHARMACOLOGIC AGENT - OS - LEFT EYE (04/30/2024 14:43 EDT) Narrative [facility] POINT OF CARE - 05/03/2024 11:16 EDT Time Out 04/30/2024. 14:43. Confirmed correct patient, procedure, site, and patient consented. Anesthesia Topical anesthesia was used. Anesthetic medications included Proparacaine 0.5%, Tetracaine 0.5%. Procedure Preparation included 5% betadine to ocular surface, eyelid speculum. A 30 gauge needle was used. Injection: 8 mg aflibercept 8 mg/0.07 mL ??Route: intravitreal, Site: Left Eye ??[facility]: 13358-180-01, Lot: [id number], Expiration date: 07/17/2025 Post-op Post injection exam found visual acuity of at least counting fingers. The patient tolerated the procedure well. There were no complications. The patient received written and verbal post procedure care education. Post injection medications were not given. Anjum Miranda MD OPHTH CLINIC PROCEDURES Final Re sult [facility] POINT OF CARE from Last 3 Months Insurance [facility] [place] [address] [place] [address] Advance Directives For more information, please contact: [phone] * Full Code (Latest Code Status on [...] participated in the discussion? Patient Care Teams Coiled Tubing Supervisor Relationship Specialty Start Date End Date Blanco Myles MD [address] [address] PCP - General Emergency Medicine 04/07/23
--- OUTSIDE RECORDS SUMMARY | 2024-07-06 14:07 | XMS_ITS | Encounter Summary ---
Author Organization [facility] Address [address] [place] [address] Care Team Providers Care Leader Writer Name Role Phone Karo Otero MD Primary Care Provider [phone] Reason for Visit * Reason Comments Post-OP Follow Up Encounter Details Date Type Department Care Team (Late st Contact Info) Description 10/15/2019 9:15 EST Post-op Visit [facility] Ophthalmology - [address] [address] Mu Acosta MD [address] [facility], [address] [place] [address] Bilateral pseudophakia (Primary Dx); Amblyopia, [...] (coronary artery disease) ??? Cancer ([facility]) skin cancer ??? Cataract ??? [...] Dr. Acosta ??? MOHS SURGERY local ??? ND XCAPSL CTRC RMVL INSJ IO LENS PROSTH W/O ECP Left 09/29/2019 Cataract Extraction w/IOL Implant, LEFT EYE performed by Mu Acosta MD at [facility] OR ??? REVISION TOTAL KNEE ARTHROPLASTY 2017 s/p irrigation,debridement and 2 -stage revision [place] - no problems ??? RHINOPLASTY 1991 [place] - no problems ??? TONSILLECTOMY 1944 [place] - no problems ??? TOTAL KNEE ARTHROPLASTY Right 2008, 2011 in [place] s/p I&D - antibiotics then 2 nd [...] intraocular lens Refraction Wearing Rx Sphere Cylinder [place] Add Right -0.50 +0.50 155 150/3.00 Left [place] +0.50 018 150/300 Manifest Refraction Sphere Cylinder [place] Right Left -1.00 +0.75 165 [...] Info) Description 09/03/2024 13:00 EST Office Visit [facility] Ophthalmology - [facility] [address] [place], [place] [address] Anjum Miranda MD [address] [facility], [address] [place] [address] documented as of this encounter [...] intraocular le ns Wearing Rx Sphere Cylinder [place] Add Right eye -0.50 +0.50 155 150/3.00 Left eye [place] +0.50 018 150/300 Manifest Refraction Sphere Cylinder [place] Dist [place] Right eye Left eye -1.00 +0.75 165 20/40 Care Teams Leader Writer Relationship Specialty Start Date End Date Karo Otero MD [address] [place] [address] PCP - General 01/07/18 04/06/23 documented as of this encounter
--- OUTSIDE RECORDS SUMMARY | 2024-07-06 14:07 | XMS_ITS | Encounter Summary ---
Author Organization [facility] Address [address] [place] [address] Care Team Providers Care E Learning Designer Name Role Phone Blanco Myles MD Primary Care Provider [phone] Reason for Visit * Reason Comments Follow-up Encounter Details Date Type Department Care Team (Late st Contact Info) Description 10/31/2023 13:00 EDT Office Visit [facility] Ophthalmology - [address] [id number] Anjum Miranda MD [address] [facility], [address] [place] [address] Social History Tobacco Use Types [...] bevacizumab Route: intravitreal, Site: Left Eye NDC: [address]-80, Lot: [id number], Expiration date: 11/02/2023 Post-op Post injection exam found visual acuity of at least counting fingers. The patient tolerated the procedure well. There were no complications. The patient received written and verbal post procedure care education. Post injection medications were not given. DIAGNOSES: 1. Exudative age-related macular degeneration of left eye with active choroidal neovascularization ([facility]) OCT, RETINA - OU - BOTH EYES [...] Info) Description 09/03/2024 13:00 EST Office Visit [facility] Ophthalmology - [address] [place] [address] [place] [address] Anjum Miranda MD [address] [facility], [address] [place] [address] documented as of this encounter Procedures Procedure [...] - BOTH EYES (10/31/2023 14:12 EDT) Narrative [facility] OPHTHALMOLOGY - 10/31/2023 14:12 EDT Right Eye Progression has been stable. Left Eye Quality was good. Progression has worsened. Findings include intraretinal fluid, pigment epithelial detachment, subretinal fluid. Notes Drusen, no fluid right eye Resolution of subretinal fluid, some increase in intraretinal fluid over SRfibrosis left eye Anjum Miranda MD OPHTH TOMOGRAPHY Final Result [facility] OPHTHALMOLOGY * INTRAVITREAL INJECTION, PHARMACOLOGIC AGENT - OS - LEFT EYE (10/31/2023 14:05 EDT) Narrative [facility] POINT OF CARE - 10/31/2023 14:13 EDT Time Out 10/31/2023. 13:57. Confirmed correct patient, procedure, site, and patient consented. Anesthesia Topical anesthesia was used. Anesthetic medications included Proparacaine 0.5%, Tetracaine 0.5%. Procedure Preparation included 5% betadine to ocular surface, eyelid speculum. A 30 gauge needle was used. Injection: 1.25 mg bevacizumab ??Route: intravitreal, Site: Left Eye ??[facility]: [address]-47, Lot: [id number], Expiration date: 11/02/2023 Post-op Post injection exam found visual acuity of at least counting fingers. The patient tolerated the procedure well. There were no complications. The patient received written and verbal post procedure care education. Post injection medications were not given. Anjum Miranda MD OPHTH CLINIC PROCEDURES Final Re sult [facility] POINT OF CARE documented in this [...] Normal Normal Periphery Attached Attached Care Teams E Learning Designer Relationship Specialty Start Date End Date Blanco Myles MD [address] [facility] [address] [place] [address] PCP - General Emergency Medicine 04/07/23 documented as of this encounter
--- OUTSIDE RECORDS SUMMARY | 2024-07-06 14:07 | XMS_ITS | Encounter Summary ---
Author Organization [facility] Address [address] [place] [address] Care Team Providers Care Cotton Breeder Name Role Phone Blanco Myles MD Primary Care Provider [phone] Reason for Visit * Reason Comments Follow-up Encounter Details Date Type Department Care Team (Late st Contact Info) Description 07/15/2023 13:00 EST Office Visit [facility] Ophthalmology - [address] [id number] Anjum Miranda MD 111 [facility], [address] [place] [address] Social History Tobacco Use Types [...] mg bevacizumab Route: intravitreal, Site: Left Eye [facility]: [address]-74, Lot: [id number], Expiration date: 07/15/2023 Post-op Post injection exam found visual acuity of at least counting fingers. The patient tolerated the procedure well. There were no complications. Post injection medications were not given. DIAGNOSES: 1. Exudative age-related macular degeneration of left eye with active choroidal neovascularization ([facility]) OCT, RETINA - OU - BOTH [...] Info) Description 09/03/2024 13:00 EST Office Visit [facility] [place] [address] Anjum Miranda MD [address] [place] [address], [address] [place] [address] documented as of this encounter [...] - LEFT EYE (07/15/2023 14:18 EST) Narrative [facility] POINT OF CARE - 07/15/2023 14:32 EST Time Out 07/15/2023. 14:17. Confirmed correct patient, procedure, site, and patient consented. Anesthesia Topical anesthesia was used. Anesthetic medications included Proparacaine 0.5%, Tetracaine 0.5%. Procedure Preparation included 5% betadine to ocular surface, eyelid speculum. A 30 gauge needle was used. Injection: 1.25 mg bevacizumab ??Route: intravitreal, Site: Left Eye ??[facility]: [address]-17, Lot: [id number], Expiration date: 07/15/2023 Post-op Post injection exam found visual acuity of at least counting fingers. The patient tolerated the procedure well. There were no complications. Post injection medications were not given. us Anjum Miranda MD OPHTH CLINIC PROCEDURES Final Re sult [facility] POINT OF CARE * OCT, RETINA - OU - BOTH EYES (07/15/2023 14:13 EST) Narrative [facility] OPHTHALMOLOGY - 07/15/2023 14:32 EST Right Eye Progression has been stable. Left Eye Quality was good. Progression has improved. Findings include pigment epithelial detachment, subretinal fluid. Notes Drusen, no fluid right eye Decrease in SRHRM as well left eye Anjum Miranda MD OPHTH TOMOGRAPHY Final Result [facility] OPHTHALMOLOGY documented in this encounter [...] by SRH Vessels Normal Normal Care Teams Cotton Breeder Relationship Specialty Start Date End Date Blanco Myles MD [address] [facility] [address] [place] [address] PCP - General Emergency Medicine 04/07/23 documented as of this encounter
--- OUTSIDE RECORDS SUMMARY | 2024-07-06 14:07 | XMS_ITS | Encounter Summary ---
Author Organization [facility] Address [address] [place] [address] Care Team Providers Care Expander Name Role Phone Blanco Myles MD Primary Care Provider [phone] Reason for Visit * Reason Comments Follow-up Encounter Details Date Type Department Care Team (Late st Contact Info) Description 09/05/2023 13:00 EST Office Visit [facility] Ophthalmology - [address] [phone] Anjum Miranda MD 111 [facility], [address] [place] [address] Social History Tobacco Use Types [...] bevacizumab Route: intravitreal, Site: Left Eye [facility]: [address]-03, Lot: [id number], Expiration date: 09/05/2023 Post-op Post injection exam found visual acuity of at least counting fingers. The patient tolerated the procedure well. There were no complications. The patient received written and verbal post procedure care education. Post injection medications were not given. DIAGNOSES: 1. Exudative age-related macular degeneration of left eye with active choroidal neovascularization ([facility]) OCT, RETINA - OU - [...] Visit [facility] Ophthalmology - [address] [address] Anjum Miranda MD 111 [facility], [address] [place] [address] documented as of this encounter Procedures Procedure [...] EYE (09/05/2023 14:09 EST) Narrative [facility] POINT OF CARE - 09/05/2023 14:11 EST Time Out 09/05/2023. 13:49. Confirmed correct patient, procedure, site, and patient consented. Anesthesia Topical anesthesia was used. Anesthetic medications included Proparacaine 0.5%, Tetracaine 0.5%. Procedure Preparation included 5% betadine to ocular surface, eyelid speculum. A 30 gauge needle was used. Injection: 1.25 mg bevacizumab ??Route: intravitreal, Site: Left Eye ??[facility]: [address]-78, Lot: [id number], Expiration date: 09/05/2023 Post-op Post injection exam found visual acuity of at least counting fingers. The patient tolerated the procedure well. There were no complications. The patient received written and verbal post procedure care education. Post injection medications were not given. us Anjum Miranda MD OPHTH CLINIC PROCEDURES Final Re sult [facility] POINT OF CARE * OCT, RETINA - OU - BOTH EYES (09/05/2023 13:55 EST) Narrative [facility] OPHTHALMOLOGY - 09/05/2023 14:11 EST Right Eye Progression has been stable. Left Eye Quality was good. Progression has improved. Findings include pigment epithelial detachment, subretinal fluid. Notes Drusen, no fluid right eye Decrease in SRHRM as well left eye Anjum Miranda MD OPHTH TOMOGRAPHY Final Result [facility] OPHTHALMOLOGY documented in this encounter [...] adjacent SRH Vessels Normal Normal Care Teams Expander Relationship Specialty Start Date End Date Blanco Myles MD 26 [facility] [address] [place] [address] PCP - General Emergency Medicine 04/07/23 documented as of this encounter
--- OUTSIDE RECORDS SUMMARY | 2024-07-06 14:07 | XMS_ITS | Encounter Summary ---
Author Organization [facility] Address [address] [place] [address] Care Team Providers Care Padding Gluer Name Role Phone Karo Otero MD Primary Care Provider [phone] Reason for Visit * Reason Onset Date Comments Eye Problem 12/24/2019 Encounter Details Date Type Department Care Team (Late st Contact Info) Description 12/24/2019 Telephone [facility] Ophthalmology - [facility] [address] [place], [place] [phone] Mu Acosta MD 111 [facility], [address] [place] [address] Eye Problem Social History Tobacco [...] Info) Description 09/03/2024 13:00 EST Office Visit [facility] Ophthalmology - [facility] [address] [place] [address] Anjum Miranda MD 111 [facility], [address] [place] [phone] documented as of this encounter Visit Diagnoses Not on filedocumented in this encounter Care Teams Padding Gluer Relationship Specialty Start Date End Date Karo Otero MD [address] [place] [address] PCP - General 01/07/18 04/06/23 documented as of this encounter
--- OUTSIDE RECORDS SUMMARY | 2024-07-06 14:07 | XMS_ITS | Encounter Summary ---
Author Organization [facility] Address [address] [place] [address] Care Team Providers Care Turbine Room Attendant Name Role Phone Blanco Myles MD Primary Care Provider [phone] Reason for Visit * Reason Comments Eye Problem Encounter Details Date Type Department Care Team (Late st Contact Info) Description 04/07/2023 14:00 EDT Office Visit [facility] Ophthalmology - [address] [phone] Anjum Miranda MD 111 [facility], [address] [place] [address] Social History Tobacco Use Types [...] major study sponsored by the National Eye [place] (NEI), one of the Federal Government's National Institutes of Health, and conducted at [facility] research facilities around the country. In the [...] AREDS is available from the National [employer] [place] of the National Institutes of Health, www.nei.nih.gov/amd. Your Eye M.D. is your best source of information about eye care. You can also get trustworthy information from the [place] [employer]'s partner Web site, Medem www.viseto.Swoop/MedLB/bufferpage aao.cfm. -What Should You Buy? To try [...] bevacizumab Route: intravitreal, Site: Left Eye [facility]: [address]-60, Lot: [id number], Expiration date: 04/13/2023 Post-op Post injection exam [...] Description 09/03/2024 13:00 EST Office Visit [facility] Ophthalmology - [address] [phone] Anjum Miranda MD 111 [facility], [address] [place] [address] documented as of this encounter Procedures Procedure Name Priority Date/Time Associated Diagnosis Comments INTRAVITREAL INJECTION, PHARMACOLOGIC AGENT - OS - LEFT EYE Routine 04/07/2023 16:04 EDT Exudative age-related macular degeneration of left eye with active choroidal neovascularization ([facility]) documented in this encounter Results * INTRAVITREAL INJECTION, PHARMACOLOGIC AGENT - OS - LEFT EYE (04/07/2023 16:04 EDT) Narrative [facility] POINT OF CARE - 04/07/2023 16:37 EDT Time Out 04/07/2023. 15:47. Confirmed correct patient, procedure, site, and patient consented. Anesthesia Topical anesthesia was used. Anesthetic medications included Proparacaine 0.5%, Tetracaine 0.5%. Procedure Preparation included 5% betadine to ocular surface, eyelid speculum. A 30 gauge needle was used. Injection: 1.25 mg bevacizumab ??Route: intravitreal, Site: Left Eye ??[facility]: [address]-53, Lot: [id number], Expiration date: 04/13/2023 Post-op Post injection exam [...] by [facility]H Vessels Normal Normal Care Teams Turbine Room Attendant Relationship Specialty Start Date End Date Blanco Myles MD 26 [facility] [address] [place] [address] PCP - General Emergency Medicine 04/07/23 documented as of this encounter
--- OUTSIDE RECORDS SUMMARY | 2024-07-06 14:07 | XMS_ITS | Encounter Summary ---
Author Organization [facility] Address [address] [place] [address] Care Team Providers Care Position Description Manager Name Role Phone Blanco Myles MD Primary Care Provider [phone] Reason for Visit * Reason Comments Eye Problem Wet AMD left eye. S/ p Avastin #2 left eye 05/06/2023. Pt reports VA has improved since last visit. No new F/F, no eye pain.Takes Areds 2 BID Encounter Details Date Type Department Care Team (Late st Contact Info) Description 06/10/2023 13:00 EDT Office Visit [facility] Ophthalmology - [address] [address] Anjum Miranda MD [address] [facility], [address] 5 [place] [address] Social History Tobacco Use Types [...] intravitreal, Site: Left Eye [facility]: [address]-35, Lot: [id number], Expiration date: 06/15/2023 Post-op Post injection exam found visual acuity of at least counting fingers. The patient tolerated the procedure well. There were no complications. Post injection medications were not given. DIAGNOSES: 1. Exudative age-related macular degeneration of left eye with active choroidal neovascularization ([facility]) OCT, RETINA - OU - [...] Info) Description 09/03/2024 13:00 EST Office Visit [facility] Ophthalmology - Main [place] [address] [place], [place] [address] Anjum Miranda MD [address] [facility], [address] 5 [place] [address] documented as of this encounter [...] - LEFT EYE (06/10/2023 14:03 EDT) Narrative [facility] POINT OF CARE - 06/10/2023 14:35 EDT Time Out 06/10/2023. 13:54. Confirmed correct patient, procedure, site, and patient consented. Anesthesia Topical anesthesia was used. Anesthetic medications included Proparacaine 0.5%, Tetracaine 0.5%. Procedure Preparation included 5% betadine to ocular surface, eyelid speculum. A 30 gauge needle was used. Injection: 1.25 mg bevacizumab ??Route: intravitreal, Site: Left Eye ??[facility]: [address]-42, Lot: [id number], Expiration date: 06/15/2023 Post-op Post injection exam found visual acuity of at least counting fingers. The patient tolerated the procedure well. There were no complications. Post injection medications were not given. Anjum Miranda MD OPHTH CLINIC PROCEDURES Final Re sult [facility] POINT OF CARE * OCT, RETINA - OU - BOTH EYES (06/10/2023 13:49 EDT) Narrative [facility] OPHTHALMOLOGY - 06/10/2023 14:35 EDT Right Eye Progression has been stable. Left Eye Quality was good. Progression has improved. Findings include pigment epithelial detachment, subretinal fluid. Notes Drusen, no fluid right eye Decrease in SRHRM as well left eye Anjum Miranda MD OPHTH TOMOGRAPHY Final Result Performing Organization Address City/[facility]/ZIP Co de Phone Number [facility] OPHTHALMOLOGY documented in this encounter [...] by SRH Vessels Normal Normal Care Teams Position Description Manager Relationship Specialty Start Date End Date Blanco Myles MD [address] [facility] [address] [place] [address] PCP - General Emergency Medicine 04/07/23 documented as of this encounter
--- OUTSIDE RECORDS SUMMARY | 2024-07-06 14:07 | XMS_ITS | Encounter Summary ---
Author Organization [facility] Address [address] [place] [address] Care Team Providers Care Long Winder Tender Name Role Phone Blanco Myles MD Primary Care Provider [phone] Reason for Visit * Reason Comments Eye Problem Encounter Details Date Type Department Care Team (Late st Contact Info) Description 04/07/2023 13:45 EDT Office Visit [facility] Ophthalmology - [address] [phone] Anjum Guillory MD [address] [place] [address], [address] [place] [address] Social History Tobacco Use Types [...] worsen or fail to improve. I, Dr. uGillory, have performed my own HPI and reviewed [...] 09/03/2024 13:00 EST Office Visit [facility] Ophthalmology - [facility] [address] [place], [place] [phone] Anjum Miranda MD 111 [facility], [address] [place] [address] documented as of this encounter Procedures Procedure Name Priority Date/Time Associated Diagnosis Comments OCT, RETINA - OU - BOTH EYES Routine 04/07/2023 15:01 EDT Choroidal neovascular membrane of left eye documented in this encounter Results * OCT, RETINA - OU - BOTH EYES (04/07/2023 15:01 EDT) Narrative [facility] OPHTHALMOLOGY - 04/07/2023 17:00 EDT Table formatting from the original result was not included. OCT REPORT Indications: ??Choroidal neovascular membrane left Findings: Right Eye Left Eye Normal PED, SRF and high reflective subretinal substance Original test to be found in patients shadow chart us Anjum Guillory MD OPHTH TOMOGRAPHY Final Result [facility] OPHTHALMOLOGY documented in this encounter [...] Periphery Retina attached Retina attached Care Teams Long Winder Tender Relationship Specialty Start Date End Date Blanco Myles MD 26 [facility] [address] [place] [address] PCP - General Emergency Medicine 04/07/23 documented as of this encounter
--- OUTSIDE RECORDS SUMMARY | 2024-07-06 14:07 | XMS_ITS | Encounter Summary ---
Author Organization [facility] Address [address] [place] [address] Care Team Providers Care Ruby On Rails Consultant Name Role Phone Blanco Myles MD Primary Care Provider Encounter Details Date Type Department Care Team (Late st Contact Info) Description 02/09/2024 Lab Requisition [facility] Pathology & Laboratory Medicine - [address] [address] Outr Resulting Lab, Provider Social History Tobacco [...] Info) Description 09/03/2024 13:00 EST Office Visit [facility] Ophthalmology - [address] [phone] Anjum Miranda MD [address] [facility], [address] [place] [address] documented as of this encounter Procedures Procedure Name Priority Date/Time Associated Diagnosis Comments CCP ANTIBODIES Routine 02/09/2024 11:10 EDT RHEUMATOID FACTOR Routine 02/09/2024 11: 10 EDT ANTI NUCLEAR AB (ANDRÉS), IFA Routine 02/09/2024 11:10 EDT documented in this encounter Results * (ABNORMAL) RHEUMATOID FACTOR (02/09/2024 11:10 EDT) Rheumatoid Factor 17.0(H) <12.0 IU/mL 02/09/2024 22:34 EDT [facility] Blood VENOUS BLOOD / Unknown 02/09/2024 11:10 EDT 02/09/2024 22:14 EDT us Provider Outr Resulting Lab CHEMISTRY & BLOOD GA S ORDERABLES Final Result Performing Organization Address [facility] Co de Phone Number [facility] [address] [place] [address] * ANTI NUCLEAR AB (ANDRÉS), IFA (02/09/2024 11:10 EDT) ANDRÉS Interpretation Negative Negative 2023 12:17 EDT [facility] Comment:No titer performed, ANDRÉS Screen is negative. Blood VENOUS BLOOD / Unknown 02/09/2024 11:10 EDT 02/09/2024 22:14 EDT Narrative [facility] - 02/10/2024 12:17 EDT Results were obtained with the [employer] NOVA Lite HEp-2 ANDRÉS Kit by indirect immunofluorescence. us Provider Outr Resulting Lab IMMUNOLOGY AND SEROL OGY ORDERABLES Final Result Performing Organization Address [facility] Co de Phone Number [facility] [address] [place] [address] * CCP ANTIBODIES (02/09/2024 11:10 EDT) [facility] CCP Antibodies <2.5 <5.0 U/mL 02/10/2024 8:39 EDT [facility] Blood VENOUS BLOOD / Unknown 02/09/2024 11:10 EDT 02/09/2024 22:14 EDT us Provider Outr Resulting Lab IMMUNOLOGY AND SEROL OGY ORDERABLES Final Result Performing Organization Address [facility] Co de Phone Number [facility] [address] [place] [address] documented in this encounter Visit Diagnoses Not on filedocumented in this encounter Care Teams Ruby On Rails Consultant Relationship Specialty Start Date End Date Blanco Myles MD 26 [facility] [address] [place] [address] PCP - General Emergency Medicine 04/07/23 documented as of this encounter
--- OUTSIDE RECORDS SUMMARY | 2024-07-06 14:07 | XMS_ITS | Encounter Summary ---
Author Organization [facility] Address [address] [place] [address] Care Team Providers Care Chainstitch Zipper Setter Name Role Phone Blanco Myles MD Primary Care Provider Reason for Visit * Reason Comments Eye Problem 9 week return for we t age-related macular degeneration -left eye No pain, flashes, or floaters Encounter Details Date Type Department Care Team (Late st Contact Info) Description 04/30/2024 13:00 EDT Office Visit [facility] Ophthalmology - [address] [address] Anjum Miranda MD 111 [facility], [address] [place] [address] Social History Tobacco Use Types [...] mg/0.07 mL Route: intravitreal, Site: Left Eye [facility]: 11226-351-55, Lot: [id number], Expiration date: 07/17/2025 Post-op Post injection exam [...] Info) Description 09/03/2024 13:00 EST Office Visit [facility] Ophthalmology - Main [place] [address] [place] [address] Anjum Miranda MD 111 [facility], [address] [place] [address] documented as of this encounter [...] - BOTH EYES (04/30/2024 14:44 EDT) Narrative [facility] OPHTHALMOLOGY - 05/03/2024 11:16 EDT Right Eye Progression has been stable. Findings include normal foveal contour. Left Eye Quality was good. Progression has been stable. Findings include intraretinal fluid, pigment epithelial detachment. Notes Drusen, no fluid right eye intraretinal fluid over SRfibrosis left eye us Anjum Miranda MD OPHTH TOMOGRAPHY Final Result [facility] OPHTHALM[facility] * INTRAVITREAL INJECTION, PHARMACOLOGIC AGENT - OS - LEFT EYE (04/30/2024 14:43 EDT) Narrative [facility] POINT OF CARE - 05/03/2024 11:16 EDT Time Out 04/30/2024. 14:43. Confirmed correct patient, procedure, site, and patient consented. Anesthesia Topical anesthesia was used. Anesthetic medications included Proparacaine 0.5%, Tetracaine 0.5%. Procedure Preparation included 5% betadine to ocular surface, eyelid speculum. A 30 gauge needle was used. Injection: 8 mg aflibercept 8 mg/0.07 mL ??Route: intravitreal, Site: Left Eye ??[facility]: 14378-022-24, Lot: [id number], Expiration date: 07/17/2025 Post-op Post injection exam [...] Normal Normal Periphery Attached Attached Care Teams Chainstitch Zipper Setter Relationship Specialty Start Date End Date Blanco Myles MD 26 [facility] [address] [place] [address] PCP - General Emergency Medicine 04/07/23 documented as of this encounter
--- OUTSIDE RECORDS SUMMARY | 2024-07-06 14:07 | XMS_ITS | Encounter Summary ---
Author Organization [facility] Address [address] [place] [address] Care Team Providers Care Electronic Plotting System Operator Name Role Phone Karo Otero MD Primary Care Provider [phone] Reason for Visit * Reason Comments Post-OP Follow Up Encounter Details Date Type Department Care Team (Late st Contact Info) Description 10/22/2019 14:00 EST Post-op Visit [facility] Ophthalmology - [address] [address] Mu Acosta MD 111 [facility], [address] [place] [address] Bilateral pseudophakia (Primary Dx); Amblyopia, [...] Date of Assessment Author No 01/07/2018 21:35 Kiat Segovia RN * Do you have difficulty [...] for the 10/22/19 encounter (Post-op Visit) with uM Acosta MD. Past Medical History: Diagnosis Date [...] Dr. Acosta ??? MOHS SURGERY local ??? ME XCAPSL CTRC RMVL INSJ IO LENS PROSTH W/O ECP Left 09/29/2019 Cataract Extraction w/IOL Implant, LEFT EYE performed by Mu Acosta MD at [facility] OR ??? REVISION TOTAL KNEE ARTHROPLASTY 2017 s/p irrigation,debridement and 2 -stage revision [place] - no problems ??? RHINOPLASTY 1991 [place] - no problems ??? TONSILLECTOMY 1944 [place] - no problems ??? TOTAL KNEE ARTHROPLASTY Right 2008, 2011 in [place] s/p I&D - antibiotics then 2 nd [...] Normal Refraction Manifest Refraction (Auto) Sphere Cylinder [place] Right -1.25 +0.50 025 Left -2.00 +0.75 [...] Visit [facility] Ophthalmology - [facility] [address] [place] [address] Anjum Miranda MD 111 [facility], [address] [place] [address] documented as of this encounter [...] Periphery Normal Manifest Refraction (Auto) Sphere Cylinder [place] Right eye -1.25 +0.50 025 Left eye -2.00 +0.75 130 Care Teams Electronic Plotting System Operator Relationship Specialty Start Date End Date Karo Otero MD [address] [place] [address] PCP - General 01/07/18 04/06/23 documented as of this encounter
--- OUTSIDE RECORDS SUMMARY | 2024-07-06 14:07 | XMS_ITS | Encounter Summary ---
Author Organization [facility] Address [address] [place] [address] Care Team Providers Care Toolroom Keeper Name Role Phone Karo Otero MD Primary Care Provider [phone] Reason for Visit * Reason Comments Eye Problem Encounter Details Date Type Department Care Team (Late st Contact Info) Description 12/28/2019 14:[address] [facility] Ophthalmology - [address] [phone] Mu Acosta MD [address] [place] [address], [address] [place] [address] Social History Tobacco Use Types [...] Duration: Weeks Timing: Constant Lasts: Continuous Context: [place] across vision of left eye Modifying factors: Began about 6 weeks ago Associated Signs & Symptoms: No flashes or floaters Attestation: ROS Constitutional: NL ENT/Mouth NL Cardiovascular: High Blood Pressure Respiratory: NL Gastrointestinal: NL Genitourinary: NL Musculoskeletal: NL Integumentary: NL Neurologic: NL Psychiatric: NL Endocrine: NL Hematologic: Immunologic: NL Bisque Brusher: Exposures: None Other: Attestation: Allergies include: Percocet [...] Info) Description 09/03/2024 13:[address] [facility] Ophthalmology - [facility] [address] [place], [place] [address] Anjum Miranda MD 111 [facility], [address] [place] [address] documented as of this encounter Visit Diagnoses [...] Left eye -0.75 Sphere 20/30 Care Teams Toolroom Keeper Relationship Specialty Start Date End Date Karo Otero MD [address] [place] [phone] PCP - General 01/07/18 04/06/23 documented as of this encounter
--- OUTSIDE RECORDS SUMMARY | 2024-07-06 14:07 | XMS_ITS | Encounter Summary ---
Author Organization [facility] Address [address] [place] [address] Care Team Providers Care Renewals Manager Name Role Phone Karo Otero MD Primary Care Provider [phone] Blanco Myles MD Primary Care Provider [phone] Encounter Details Date Type Department Care Team (Late st Contact Info) Description 07/25/2021 Lab Requisition [facility] Pathology & Laboratory Medicine - [address] [address] Outr Resulting Lab, Provider Social History Tobacco [...] Description 09/03/2024 13:00 EST Office Visit [facility] Ophthalmology - [address] [address] Anjum Miranda MD [address] [place] [address], [address] [place] [address] documented as of this encounter Procedures Procedure Name Priority Date/Time Associated Diagnosis Comments PSA TOTAL, DIAGNOSTIC Routine 07/25/2021 10:25 EST documented in this encounter Results * PSA TOTAL, DIAGNOSTIC (07/25/2021 10:25 EST) PSA 1.6 0.0 - 6.5 ng/mL 07/25/2021 23:23 EST [facility] Blood VENOUS BLOOD / Unknown 07/25/2021 10:25 EST 07/25/2021 22:16 EST Narrative [facility] - 07/25/2021 23:23 EST NOTE: Serum PSA concentration should not be interpreted as absolute evidence for the presence or absence of malignant disease. Assayed on Siemens ADVIA Centaur XPT using chemiluminescent technology.??Values obtained by using different assay methods cannot be used interchangeably. us Provider Outr Resulting Lab CHEMISTRY & BLOOD GA S ORDERABLES Final Result [facility] [address] [place] [address] documented in this encounter Visit Diagnoses Not on filedocumented in this encounter Care Teams Renewals Manager Relationship Specialty Start Date End Date Karo Otero MD [address] [place] [address] PCP - General 01/07/18 04/06/23 Blanco Myles MD 26 [facility] [address] [place] [address] PCP - General Emergency Medicine 04/07/23 documented as of this encounter
--- OUTSIDE RECORDS SUMMARY | 2024-07-06 14:08 | XMS_ITS | Encounter Summary ---
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] Acosta MD 09/29/2019 14:05 Source Note - SIZER MACHINE, LUIS 2 - 09/23/2019 11:20 EST documented in this encounter OR Notes * OR Surgeon - Mu Acosta MD - 09/29/2019 9361 EST Preoperative diagnosis: combined senile cataract, left eye Postoperative diagnosis: Same as above Procedure: Phacoemulsification with intraocular lens implantation, left eye Surgeon: Mu Acosta MD Pinking Sewing Machine Operator: ROBBIN Shah Anesthesia: Local with monitored anesthesia [...] Info) Description 09/03/2024 13:00 EST Office Visit [facility] Ophthalmology - [address] [address] Anjum Miranda MD 111 [facility], [address] [place] [address] documented as of this encounter Procedures Procedure Name Priority Date/Time Associated Diagnosis Comments IMPLANT RECORD - SCANNED 10/05/2019 22:25 EST EXTRACTION, CATARACT, EXTRACAPSULAR, WITH IOL INSERTION 09/29/2019 14:17 EST Combined forms of age-related cataract of both eyes documented in this encounter Results * IMPLANT RECORD - SCANNED (10/05/2019 22:25 EST) 10/05/2019 22:2 5 EST us Scan 2 Bioinformatics Research Technician PROCEDURE/MINOR SURGICAL OR DERABLES Final Result documented [...] Provider: Carolynn Olivia RN)[id number] (Given - Provider: Caorlynn Olivia RN) proparacaine (ALCAINE) 0.5 % ophthalmic [...] Mu Acosta MD - Comment: BSS Plus [id number] BSS Part II [id number]) chondroitin-sodium hyaluronate (VISCOAT) ophthalmic solution (CANCELED) As needed, Starting on Fri09/29/19 at 1432, Until 09/29/19 at 1434, Routine, Intraprocedure 1432 (Given - Provid er: Mu Acosta MD - Comment: [id number]) lidocaine (PF) 10 mg/mL (1 %) injection (CANCELED) As needed, Starting on Fri09/29/19 at 1432, Until 09/29/19 at 1434, Routine, Intraprocedure 1432 (Given - Provid er: Mu Acosta MD - Comment: [id number]) moxifloxacin (VIGAMOX) 0.5 % ophthalmic solution (CANCELED) [...] 09/29/2019 documented in this encounter Care Teams Tester Rocket Engine Relationship Specialty Start Date End Date Karo Otero MD [address] [place] [address] PCP - General 01/07/18 04/06/23 documented as of this encounter
--- OUTSIDE RECORDS SUMMARY | 2024-07-06 14:08 | XMS_ITS | Encounter Summary ---
Author Organization [facility] Address [address] [place] [address] Care Team Providers Care Wood Drill Operator Name Role Phone Karo Otero MD Primary Care Provider [phone] Reason for Visit * Reason Comments Knee Pain right Encounter Details Date Type Department Care Team (Latest Contact Info) Description 03/04/2018 15:40 EDT Office Visit [facility] Total Joint Program - [address] [address] Mauricio Dodson MD MSc [address] [address] Periprosthetic fracture around internal prosthetic [...] [facility] [address] [address] Anjum Miranda MD 111 [facility], [address] [place] [address] documented as of this encounter Visit Diagnoses Diagnosis 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
--- OUTSIDE RECORDS SUMMARY | 2024-07-06 14:08 | XMS_ITS | Encounter Summary ---
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, subsequent encounter Procedures FEMUR 2 OR MORE VIEWS Mauricio Dodson MD MSc [facility] Phone: tel: fax: Referral ID Status Reason Start Date Expiration Date V isits Requested Visits Authorized [id number] New Request 01/30/2018 1 1 Reason for Visit * Reason Onset Date Comments Leg Injury 01/30/2018 Encounter Details Date Type Department Care Team (Late st Contact Info) Description 01/30/2018 Orders Only [facility] Orthopedic Trauma - [address] [address] Mauricio Dodson MD MSc [facility] [address] [place] [address] Periprosthetic fracture around internal prosthetic right [...] Info) Description 09/03/2024 13:00 EST Office Visit [facility] Ophthalmology - [address] [address] Anjum Miranda MD [address] [place] [address], [address] [place] [address] documented as of this encounter [...] around internal prosthetic right knee joint, subsequent [id number]; Right periprosthetic distal femur fracture surrounding revision [...] around internal prosthetic right knee joint, subsequent [id number]; Right periprosthetic distal femur fracture surrounding revision [...] Primary documented in this encounter Care Teams County Surveyor Relationship Specialty Start Date End Date Karo Otero MD [address] [place] [address] PCP - General 01/07/18 04/06/23 documented as of this encounter
--- OUTSIDE RECORDS SUMMARY | 2024-07-06 14:08 | XMS_ITS | Encounter Summary ---
Author Organization [facility] Address [address] [place] [address] Care Team Providers Care Pulp Cooker Name Role Phone Karo Otero MD Primary Care Provider Reason for Visit * Reason Comments Knee Pain right Encounter Details Date Type Department Care Team (Latest Contact Info) Description 06/10/2018 10:30 EDT Office Visit [facility] Total Joint Program - [address] [id number] Mauricio Dodson MD MSc [address] [address] Periprosthetic fracture around internal prosthetic [...] Info) Description 09/03/2024 13:00 EST Office Visit 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
--- OUTSIDE RECORDS SUMMARY | 2024-07-06 14:08 | XMS_ITS | Encounter Summary ---
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 weightbearing as tolerated with a walker Encounter Details Date Type Department Care Team (Late st Contact Info) Description 03/20/[address] [facility] Total Joint Program - [facility] [place] [address] Mauricio Dodson MD MSc [facility] [address] [place] [phone] Periprosthetic fracture around internal prosthetic right [...] Description 09/03/2024 13:[address] 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
--- OUTSIDE RECORDS SUMMARY | 2024-07-06 14:08 | XMS_ITS | Encounter Summary ---
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 Operating Room [address] [place] [address] Dick Tamayo MD [address] [address] Sophia Mckeon AA [address] [address] Anesthesia Record Procedure Summary [...] Evaluation - Sophia Mckeon AA - 09/29/2019 1014 EST Patient: Tra Brothers III Last Vitals [...] Evaluation - Davi Chaves MD - 09/29/2019 7386 EST Anesthesia Preprocedure Evaluation Patient Medical History, [...] ??? CAD (coronary artery disease) ??? Cancer ([facility]) skin cancer ??? Cataract ??? Depression controlled [...] coronary artery (-) CHF (congestive heart failure) ([facility]) GASTROINTESTINAL (-) Gastroesophageal reflux disease ENDO/GI (-) Diabetes mellitus type [address] ([facility]) (-) Diabetes mellitus, type 2 (HCC-CMS) Physical [...] Info) Description 09/03/2024 13:00 EST Office Visit [facility] Ophthalmology - [address] [address] Anjum Miranda MD 111 [facility], [address] 5 [place] [address] documented as of this encounter [...] 020 documented in this encounter Care Teams Cna Ltc Relationship Specialty Start Date End Date Karo Otero MD [address] [place] [phone] PCP - General 01/07/18 04/06/23 documented as of this encounter
--- OUTSIDE RECORDS SUMMARY | 2024-07-06 14:08 | XMS_ITS | Encounter Summary ---
Author Organization [facility] Address [address] [place] [address] Care Team Providers Care Mechanic Marine Engine Name Role Phone Karo Otero MD Primary Care Provider Reason for Visit * Reason Comments Post-OP Follow Up Encounter Details Date Type Department Care Team (Late st Contact Info) Description 10/08/2019 13:30 EST Post-op Visit [facility] Ophthalmology - [address] [address] Mu Acosta MD 111 [facility], Level 5 [place] [address] Pseudophakia, left eye (Primary Dx); [...] Notes * Mu Acosta MD - 10/08/2019 1335 EST Chief Complaint Patient presents with ??? [...] Dr. Acosta ??? MOHS SURGERY local ??? IN XCAPSL CTRC RMVL INSJ IO LENS PROSTH W/O ECP Left 09/29/2019 Cataract Extraction w/IOL Implant, LEFT EYE performed by Mu Acosta MD at [facility] OR ??? REVISION TOTAL KNEE ARTHROPLASTY 2017 s/p irrigation,debridement and 2 -stage revision [place] - no problems ??? RHINOPLASTY 1991 [place] - no problems ??? TONSILLECTOMY 1944 [place] - no problems ??? TOTAL KNEE ARTHROPLASTY Right 2011 in [place] s/p I&D - antibiotics then 2 nd [...] Vessels Normal Refraction Manifest Refraction Sphere Cylinder [place] Dist [place] Right Left -1.00 Sphere 180 [...] my own HPI and have reviewed the [facility]'s ROS as well. I personally completed this exam myself. Mu Acosta MD I am scribing for Dr. uM Acosta, while he is personally performing the service. Ventura Padilla, COA. The patient was instructed to call our office or go to emergency room if worse vision, worse symptoms, or new/other concerns arise. documented in this encounter Plan of Treatment Upcoming Encounters Date Type Department Care Team (Late st Contact Info) Description 09/03/2024 13:00 EST Office Visit [facility] Ophthalmology - [address] [address] Anjum Miranda MD 111 [facility], [address] [place] [address] documented as of this encounter Visit Diagnoses [...] Normal Vessels Normal Manifest Refraction Sphere Cylinder [place] Right eye Left eye -1.00 Sphere 180 20/20 Care Teams Mechanic Marine Engine Relationship Specialty Start Date End Date Karo Otero MD [address] [place] [address] PCP - General 01/07/18 04/06/23 documented as of this encounter
--- OUTSIDE RECORDS SUMMARY | 2024-07-06 14:08 | XMS_ITS | Encounter Summary ---
Author Organization [facility] Address [address] [place] [address] Care Team Providers Care Integration Aide Name Role Phone Karo Otero MD Primary Care Provider [phone] Reason for Visit * Reason Comments Eye Problem Encounter Details Date Type Department Care Team (Late st Contact Info) Description 08/06/2019 9:15 EST Office Visit [facility] Ophthalmology - [address] [address] Mu Acosta MD 111 [facility], [facility] [address] [place] [address] Social History Tobacco Use Types [...] same floaters longstanding. SHAYY: 1 year ago, [facility]. No hx of eye surg/trauma. [...] & Symptoms: SHAYY: [address] [facility]. No hx of eye surg/trauma Attestation: ROS Constitutional: NL ENT/Mouth NL Cardiovascular: High Blood Pressure, High Cholesterol Respiratory: NL Gastrointestinal: NL Genitourinary: NL Musculoskeletal: NL Integumentary: NL Neurologic: NL Psychiatric: NL Endocrine: NL Hematologic: NL Immunologic: NL Tools Programmer: Exposures: None Other: Attestation: Allergies include: Patient [...] Normal Normal Refraction Wearing Rx Sphere Cylinder [place] Add Right -0.50 +0.50 155 150/3.00 Left [place] +0.50 018 150/300 Manifest Refraction Sphere Cylinder [place] Dist [place] Right -1.00 +0.50 155 20/40 [...] Info) Description 09/03/2024 13:00 EST Office Visit [facility] Ophthalmology - [facility] [address] [place] [address] Anjum Miranda MD [address] [place] [address], [address] [place] [address] documented as of this encounter Procedures Procedure Name Priority Date/Time Associated Diagnosis Comments IOL MASTER/LENS STAR ONLY Routine 08/06/2019 10:57 EST Combined forms of age-related cataract, bilateral documented in this encounter Results * IOL MASTER/LENS STAR ONLY (08/06/2019 10:57 EST) Narrative POINT [facility] CARE [facility] - 08/06/2019 10:57 EST See scan us Mu Acosta MD OPHTH ULTRASOUND Final R esult POINT [facility] CARE [facility] documented in this encounter Visit Diagnoses [...] Vessels Normal Normal Wearing Rx Sphere Cylinder [place] Add Right eye -0.50 +0.50 155 150/3.00 Left eye [place] +0.50 018 150/300 Manifest Refraction Sphere Cylinder [place] Dist [place] Right eye -1.00 +0.50 155 20/40 Left eye -0.75 +0.50 020 20/40 Care Teams Integration Aide Relationship Specialty Start Date End Date Karo Otero MD [address] [place] [address] PCP - General 01/07/18 04/06/23 documented as of this encounter
--- OUTSIDE RECORDS SUMMARY | 2024-07-06 14:08 | XMS_ITS | Encounter Summary ---
Author Organization [facility] Address [address] [place] [address] Care Team Providers Care Programs Manager Name Role Phone Karo Otero MD Primary Care Provider [phone] Reason for Referral * Radiology Services (Routine) - Closed Specialty Diagnoses / Procedures Referred By Contac t Referred To Contact Diagnoses Pain in right femur Chronic pain of right knee Procedures KNEE 1 OR 2 VIEWS Mauricio Dodson MD [facility] Phone: tel: fax: Referral ID Status Reason Start Date Expiration Date Visits Re quested Visits Authorized [id number] Closed 12/08/2018 1 1 * Radiology Services (Routine) - Closed Specialty Diagnoses / Procedures Referred By Contac t Referred To Contact Diagnoses Pain in right femur Chronic pain of right knee Procedures KNEE 1 OR 2 VIEWS Mauricio Dodson MD [facility] Phone: tel: fax: Referral ID Status Reason Start Date Expiration Date Visits Re quested Visits Authorized [id number] Closed 12/08/2018 1 1 * Radiology Services (Routine) - Closed Specialty Diagnoses / Procedures Referred By Contac t Referred To Contact Diagnoses Pain in right femur Procedures FEMUR 2 OR MORE VIEWS Mauricio Dodson MD [facility] Phone: tel: fax: Referral ID Status Reason Start Date Expiration Date Visits Re quested Visits Authorized [id number] Closed 12/08/2018 1 1 Encounter Details Date Type Department Care Team (Late st Contact Info) Description 12/04/2018 Orders Only [facility] Total Joint Program - [facility] [address] [place] [address] Mauricio Dodson MD MSc [facility] [address] [place] [address] Pain in right femur (Primary [...] of Assessment Author No 01/07/2018 21:35 Kita Segvoia RN documented as of this encounter Mental [...] Info) Description 09/03/2024 13:00 EST Office Visit [facility] Ophthalmology - [facility] [address] [place], [place] [phone] Anjum Miranda MD 111 [facility], Level 5 [place] [address] documented as of this encounter [...] 2 VIEWS ??12/09/2018 10:45 AM HISTORY: ?? M89.5J6-Xrjxg specified disorders of bone, ficqy-BKX-09 M25.561-Pain in right knee-ICD-10; Right Total Knee [...] OR 2 VIEWS 12/09/2018 10:45 AM HISTORY: M89.7Y8-Qnntr specified disorders of bone, cpndu-TCE-63 M25.561-Pain in right knee-ICD-10; Right Total Knee [...] patellofemoral compartment. us Mauricio Dodson MD MSc [facility] IMG DIAGNOSTIC I MAGING ORDERABLES Final Result * KNEE 1 OR 2 VIEWS (12/09/2018 10:45 EDT) Anatomical Region Laterality Modality Other 12/09/2018 10:4 5 EDT 12/09/2018 12:53 EDT Narrative 12/09/2018 12:53 EDT EXAM/TECHNIQUE: RIGHT KNEE 1 OR 2 VIEWS, RIGHT FEMUR 2 OR MORE VIEWS, LEFT KNEE 1 OR 2 VIEWS ??12/09/2018 10:45 AM HISTORY: ?? M89.3J0-Qwypz specified disorders of bone, andax-JMB-20 M25.561-Pain in right knee-ICD-10; Right Total Knee [...] OR 2 VIEWS 12/09/2018 10:45 AM HISTORY: M89.3L1-Wxdmt specified disorders of bone, swsvx-WJM-29 M25.561-Pain in right knee-ICD-10; Right Total Knee [...] 2 VIEWS ??12/09/2018 10:45 AM HISTORY: ?? M89.2O3-Ronwx specified disorders of bone, frjwn-FJG-03 M25.561-Pain in right knee-ICD-10; Right Total Knee [...] OR 2 VIEWS 12/09/2018 10:45 AM HISTORY: M89.9S5-Uhiof specified disorders of bone, fmnxb-DYC-22 M25.561-Pain in right knee-ICD-10; Right Total Knee [...] knee documented in this encounter Care Teams Programs Manager Relationship Specialty Start Date End Date Karo Otero MD [address] [place] [address] PCP - General 01/07/18 04/06/23 documented as of this encounter
--- OUTSIDE RECORDS SUMMARY | 2024-07-06 14:08 | XMS_ITS | Encounter Summary ---
Author Organization [facility] Address [address] [place] [address] Care Team Providers Care Project Engineer Name Role Phone Karo Otero MD Primary Care Provider [phone] Reason for Referral * Radiology Services (Routine) - New Request Specialty Diagnoses / Procedures Referred By Contac t Referred To Contact Diagnoses Right leg pain Procedures FEMUR 2 OR MORE VIEWS Mauricio Dodson MD MSc [facility] Phone: tel: fax: Referral ID Status Reason Start Date Expiration Date V isits Requested Visits Authorized [id number] New Request 03/04/2018 1 1 Reason for Visit * Reason Onset Date Comments Other 03/04/2018 Encounter Details Date Type Department Care Team (Late st Contact Info) Description 03/04/2018 Orders Only [facility] Total Joint Program - [address] [address] Mauricio Dodson MD MSc [facility] [address] [place] [address] Right leg pain (Primary Dx) Social [...] Info) Description 09/03/2024 13:00 EST Office Visit [facility] Ophthalmology - [address] [address] Anjum Miranda MD [address] [place] [address], [address] [place] [address] documented as of this encounter Procedures Procedure [...] unremarkable. Mauricio Dodson MD MSc [facility] IMG DIAGNOSTIC I MAGING ORDERABLES Final Result documented in this encounter Visit Diagnoses Diagnosis Right leg pain- Primary Pain in limb documented in this encounter Care Teams Project Engineer Relationship Specialty Start Date End Date Karo Otero MD [address] [place] [address] PCP - General 01/07/18 04/06/23 documented as of this encounter
--- OUTSIDE RECORDS SUMMARY | 2024-07-06 14:08 | XMS_ITS | Encounter Summary ---
Author Organization [facility] Address [address] [place] [address] Care Team Providers Care Pharmacy Tech Name Role Phone Karo Otero MD Primary Care Provider [phone] Reason for Visit * Reason Onset Date Comments Medications Refill 09/13/2019 Encounter Details Date Type Department Care Team (Late st Contact Info) Description 09/13/2019 Telephone [facility] Ophthalmology - [facility] [address] [place], [place] [phone] Mu Acosta MD 111 [facility], Level [address] [place] [address] Medications Refill Social History Tobacco [...] Encounter - Leroy Combs RN - 09/15/2019 0840 EST Called [facility]. They got the orders [...] 09/29/2019. Meds needs to be ordered under [place]. Meds were sent on 08/06/19. Message out to Riana Torres for assistance. Leroy Combs RN 09/13/2019 14:43 * Telephone Encounter - Adebayo Christine - 09/13/2019 1319 EST Patient needs pre-op cataracts drops re-ordered under [facility] to [facility] in [facility] documented in this encounter Plan of Treatment Upcoming Encounters Date Type Department Care Team (Late st Contact Info) Description 09/03/2024 13:00 EST Office Visit [facility] Ophthalmology - [facility] [address] [place], [place] [address] Anjum Miranda MD 111 [facility], [address] [place] [address] documented as of this encounter [...] documented as of this encounter Care Teams Pharmacy Tech Relationship Specialty Start Date End Date Karo Otero MD [address] [place] [address] PCP - General 01/07/18 04/06/23 documented as of this encounter
--- OUTSIDE RECORDS SUMMARY | 2024-07-06 14:08 | XMS_ITS | Encounter Summary ---
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 Operating Room [address] [place] [address] Mu Acosta MD [address] [facility], Level [address] [place] [address] Discharge Disposition: Home or Self [...] Acosta MD 10/14/2019 13:54 Source Note - A/C TECHNICIAN, LUIS 2 - 10/08/2019 14:45 EST documented in this encounter OR Notes * OR Surgeon - Mu Acosta MD - 10/14/2019 1441 EST Preoperative diagnosis: Combined senile cataract, right eye Postoperative diagnosis: Same as above Procedure: Phacoemulsification with intraocular lens implantation, right eye Surgeon: Mu Acosta MD Television News Reporter: ROBBIN Shah Anesthesia: Local with monitored anesthesia [...] Info) Description 09/03/2024 13:00 EST Office Visit [facility] Ophthalmology - [address] [address] Anjum Miranda MD [address] [facility], Level [address] [place] [address] documented as of this encounter Procedures Procedure Name Priority Date/Time Associated Diagnosis Comments IMPLANT RECORD - SCANNED 10/25/2019 18:00 EDT EXTRACTION, CATARACT, EXTRACAPSULAR, WITH IOL INSERTION 10/14/2019 14:11 EST Combined forms of age-related cataract of both eyes documented in this encounter Results * IMPLANT RECORD - SCANNED (10/25/2019 18:00 EDT) 10/25/2019 18:0 0 EDT us Scan 2 Ball Shagger PROCEDURE/MINOR SURGICAL OR DERABLES Final Result documented [...] Mu Acosta MD - Comment: Part I [id number] Pat II [id number]) balanced salts (BSS) ophthalmic solution (CANCELED) As needed, Starting on Nilda 10/14/19 at 1428, Until Nilda 10/14/19 at 1431, Routine, Intraprocedure 1428 (Given - Provid er: Mu Acosta MD) chondroitin-sodium hyaluronate (VISCOAT) ophthalmic solution (CANCELED) As needed, Starting on Nilda 10/14/19 at 1429, Until Nilda 10/14/19 at 1431, Routine, Intraprocedure 1429 (Given - Provid er: Mu Acosta MD - Comment: #[id number]) lidocaine (PF) 10 mg/mL (1 %) injection (CANCELED) As needed, Starting on Nilda 10/14/19 at 1429, Until Nilda 10/14/20 at 1431, Routine, Intraprocedure 1429 (Given - Provid er: Mu Acosta MD - Comment: #[id number]) moxifloxacin (VIGAMOX) 0.5 % ophthalmic solution (CANCELED) [...] Provid er: Mu Acosta MD - Comment: #[id number]) timolol (TIMOPTIC) 0.5 % ophthalmic solution (CANCELED) [...] 10/14/2019 documented in this encounter Care Teams President Financial Institution Relationship Specialty Start Date End Date Karo Otero MD [address] [place] [address] PCP - General 01/07/18 04/06/23 documented as of this encounter
--- OUTSIDE RECORDS SUMMARY | 2024-07-06 14:08 | XMS_ITS | Encounter Summary ---
Author Organization [facility] Address [address] [place] [address] Care Team Providers Care Workforce Planning Analyst Name Role Phone Karo Otero MD Primary Care Provider [phone] Reason for Visit * Reason Comments Post-OP Follow Up Encounter Details Date Type Department Care Team (Late st Contact Info) Description 09/30/2019 10:15 EST Post-op Visit [facility] Ophthalmology - [address] [address] Mu Acosta MD 111 [facility], Level 5 [place] [address] Pseudophakia, left eye (Primary Dx); [...] ??? CAD (coronary artery disease) ??? Cancer ([facility]) skin cancer ??? Cataract ??? Depression controlled [...] Dr. Acosta ??? MOHS SURGERY local ??? SD XCAPSL CTRC RMVL INSJ IO LENS PROSTH W/O ECP Left 09/29/2019 Cataract Extraction w/IOL Implant, LEFT EYE performed by Mu Acosta MD at [facility] OR ??? REVISION TOTAL KNEE ARTHROPLASTY [...] Office Visit [facility] Ophthalmology - [address] [address] Anjum Miranda MD 111 [facility], Level [address] [place] [address] documented as of this encounter [...] Posterior chambe r intraocular lens Care Teams Workforce Planning Analyst Relationship Specialty Start Date End Date Karo Otero MD [address] [place] [address] PCP - General 01/07/18 04/06/23 documented as of this encounter
--- OUTSIDE RECORDS SUMMARY | 2024-07-06 14:08 | XMS_ITS | Encounter Summary ---
Author Organization [facility] Address [address] [place] [address] Care Team Providers Care Instrument And Controls Technician Name Role Phone Karo Otero MD Primary Care Provider [phone] Encounter Details Date Type Department Care Team (Late st Contact Info) Description 09/27/2019 Prep for Procedure [facility] Ophthalmology - [address] [phone] Mu Acosta MD 111 [facility], Level [address] [place] [address] Social History Tobacco Use Types [...] 09/03/2024 13:00 EST Office Visit [facility] Ophthalmology - [facility] [address] [place] [address] Anjum Miranda MD 111 [facility], Level [address] [place] [address] documented as of this encounter Visit Diagnoses Not on filedocumented in this encounter Care Teams Instrument And Controls Technician Relationship Specialty Start Date End Date Karo Otero MD [address] [place] [address] PCP - General 01/07/18 04/06/23 documented as of this encounter
--- OUTSIDE RECORDS SUMMARY | 2024-07-06 14:08 | XMS_ITS | Encounter Summary ---
Author Organization [facility] Address [address] [place] [address] Care Team Providers Care E Commerce Marketing Analyst Name Role Phone Karo Otero MD Primary Care Provider Encounter Details Date Type Department Care Team (Late st Contact Info) Description 10/13/2019 Prep for Procedure [facility] Ophthalmology - [address] [address] Mu Acosta MD [address] [place] [address], Level [address] [place] [address] Social History Tobacco Use Types [...] Visit [facility] Ophthalmology - [facility] [address] [place] [address] Anjum Miranda MD [address] [facility], [address] [place] [phone] documented as of this encounter Visit Diagnoses Not on filedocumented in this encounter Care Teams E Commerce Marketing Analyst Relationship Specialty Start Date End Date Karo Otero MD [address] [place] [address] PCP - General 01/07/18 04/06/23 documented as of this encounter
--- OUTSIDE RECORDS SUMMARY | 2024-07-06 14:08 | XMS_ITS | Encounter Summary ---
Author Organization [facility] Address [address] [place] [address] Care Team Providers Care Cmo Name Role Phone Karo Otero MD Primary Care Provider [phone] Reason for Visit * Reason Comments Hip Injury Right femur pain ' Encounter Details Date Type Department Care Team (Latest Contact Info) Description 12/09/2018 10:30 EDT Office Visit [facility] Total Joint Program - [address] [address] Mauricio Dodson MD MSc [facility] [address] [place] [address] Periprosthetic fracture around internal prosthetic [...] irrigation, debridement and a 2-stage revision in [place]). We treated him with open re duction [...] and lateral joint space opening with no daiys instability. 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
--- OUTSIDE RECORDS SUMMARY | 2024-07-06 14:08 | XMS_ITS | Encounter Summary ---
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 [H25.813] Procedures OK XCAPSL CTRC RMVL INSJ IO LENS PROSTH W/O ECP Cataract Extraction w/IOL Implant, RIGHT EYE Referral ID Status Reason Start Date Expiration Date Visits Re quested Visits Authorized [id number] 1 1 Encounter Details Date Type Department Care Team (Late st Contact Info) Description 10/14/2019 13:30 EST - 10/14/2019 14:15 EST Surgery [facility] Operating Room [address] [place] [address] Mu Acosta MD 111 [facility], Level 5 [place] [address] Cataract Extraction w/IOL Implant, RIGHT EYE [49457 (CPT??)] Surgery Details Date/Time Status Location OR Service Patient Class Case Class Case Type Trauma Case? 10/14/2019 1330 Posted [facility] FOR [facility] [...] Acosta MD 10/14/2019 13:54 Source Note - PROGRAM ASSISTANT, LUIS 2 - 10/08/2019 14:45 EST documented in this encounter OR Notes * OR Surgeon - Mu Acosta MD - 10/14/2019 1441 EST Preoperative diagnosis: Combined senile cataract, right eye Postoperative diagnosis: Same as above Procedure: Phacoemulsification with intraocular lens implantation, right eye Surgeon: Mu Acosta MD Fast Food Cashier: ROBBIN Shah Anesthesia: Local with monitored anesthesia [...] Info) Description 09/03/2024 13:00 EST Office Visit [facility] Ophthalmology - [address] [address] Anjum Miranda MD 111 [facility], [facility] [address] [place] [address] documented as of this encounter Procedures Procedure Name Priority Date/Time Associated Diagnosis Comments IMPLANT RECORD - SCANNED 10/25/2019 18:00 EDT EXTRACTION, CATARACT, EXTRACAPSULAR, WITH IOL INSERTION 10/14/2019 14:11 EST Combined forms of age-related cataract of both eyes documented in this encounter Results * IMPLANT RECORD - SCANNED (10/25/2019 18:00 EDT) 10/25/2019 18:0 0 EDT us Scan 2 Ore Crusher PROCEDURE/MINOR SURGICAL OR DERABLES Final Result documented [...] ADMIN INSTRUCTIONS, 3 doses, First dose on Inlda 10/14/19 at 1345, Last dose on Nilda [...] Mu Acosta MD - Comment: Part I [id number] Pat II [id number]) balanced salts (BSS) ophthalmic solution (CANCELED) As needed, Starting on Nilda 10/14/19 at 1428, Until Nilda 20 at 1431, Routine, Intraprocedure 1428 (Given - Provid er: Mu Acosta MD) chondroitin-sodium hyaluronate (VISCOAT) ophthalmic solution (CANCELED) As needed, Starting on Nilda 10/14/19 at 1429, Until Nilda 20 at 1431, Routine, Intraprocedure 1429 (Given - Provid er: Mu Acosta MD - Comment: #[id number]) lidocaine (PF) 10 mg/mL (1 %) injection (CANCELED) As needed, Starting on Nilda 10/14/19 at 1429, Until Nilda 10/14/19 at 1431, Routine, Intraprocedure 1429 (Given - Provid er: Mu Acosta MD - Comment: #[id number]) moxifloxacin (VIGAMOX) 0.5 % ophthalmic solution (CANCELED) [...] Provid er: Mu Acosta MD - Comment: #[id number]) timolol (TIMOPTIC) 0.5 % ophthalmic solution (CANCELED) [...] 10/14/2019 documented in this encounter Care Teams Developmental Mathematics Professor Relationship Specialty Start Date End Date Karo Otero MD [address] [place] [phone] PCP - General 01/07/18 04/06/23 documented as of this encounter
--- OUTSIDE RECORDS SUMMARY | 2024-07-06 14:08 | XMS_ITS | Encounter Summary ---
Author Organization [facility] Address [address] [place] [address] Care Team Providers Care Assistant Spa Manager Name Role Phone Karo Otero MD Primary Care Provider [phone] Reason for Visit * Reason Onset Date Comments Medication Adherence 09/20/2019 Encounter Details Date Type Department Care Team (Late st Contact Info) Description 09/20/[address] [facility] Ophthalmology - [address] [phone] Mu Acosta MD [address] [place] [address], [address] [place] [address] Medication Adherence Social History Tobacco [...] Okay to change to 0.4%. Send to [facility]. Same directions. Leroy Combs RN 09/21/2019 12:11 * Telephone Encounter - Kera Concepcion RN - 09/20/2019 1658 EST Message left on Dr. Simpson's desk. * Telephone Encounter - Agustina Eric - 09/20/2019 1042 EST Hope from [facility]'s pharmacy called. They do not have ketorolac .5%- its on backorder. They DO have .4% or replace with something else documented in this encounter Plan of Treatment Upcoming Encounters Date Type Department Care Team (Late st Contact Info) Description 09/03/2024 13:[address] [facility] Ophthalmology - [address] [phone] Anjum Miranda MD 111 [facility], [address] [place] [phone] documented as of this encounter Visit Diagnoses Not on filedocumented in this encounter Discontinued Medications Medication Sig Discontinue Reason Start Date End Da te ketOROLAC (ACULAR) 0.5 % ophthalmic solution Place 1 Drop into the left eye 4 times daily. Start three days prior to surgery, and continue until gone 09/15/2019 09/21/2019 documented as of this encounter Care Teams Assistant Spa Manager Relationship Specialty Start Date End Date Karo Otero MD [address] [place] [phone] PCP - General 01/07/18 04/06/23 documented as of this encounter
--- OUTSIDE RECORDS SUMMARY | 2024-07-06 14:08 | XMS_ITS | Encounter Summary ---
Author Organization [facility] Address [address] [place] [address] Care Team Providers Care Venetian Blind Washer Name Role Phone Karo Otero MD Primary Care Provider [phone] Reason for Visit * Reason Comments Leg [...] Expiration Date V isits Requested Visits Authorized [id number] Closed Specialty Services Required 01/17/2018 1 1 Encounter Details Date Type Department Care Team (Latest Contact Info) Description 02/02/2018 10:30 EDT Post-op Visit [facility] Total Joint Program - [address] [address] Mauricio Dodson MD MSc [facility] [address] [place] [address] Periprosthetic fracture around internal prosthetic right [...] Office Visit [facility] Ophthalmology - [address] [address] Anjum Miranda MD 111 [facility], [address] [place] [phone] documented as of this encounter Visit Diagnoses Diagnosis 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 cyanocobalamin (VITAMIN B-12) 500 mcg tablet Take 1 Tablet by mouth daily. docosahexanoic acid/epa (FISH OIL ORAL) Take by mouth daily. added in this encounter Care Teams Venetian Blind Washer Relationship Specialty Start Date End Date Karo Otero MD [address] [place] [phone] PCP - General 01/07/18 04/06/23 documented as of this encounter
--- OUTSIDE RECORDS SUMMARY | 2024-07-06 14:08 | XMS_ITS | Encounter Summary ---
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 [H25.813] Procedures ME XCAPSL CTRC RMVL INSJ IO LENS PROSTH W/O ECP Cataract Extraction w/IOL Implant, LEFT EYE Referral ID Status Reason Start Date Expiration Date Visits Re quested Visits Authorized [id number] 1 1 Encounter Details Date Type Department Care Team (Late st Contact Info) Description 09/29/2019 13:25 EST - 09/29/2019 14:10 EST Surgery [facility] Operating Room [address] [place], [place] [address] Mu Acosta MD 111 [facility], Level [address] [place] [address] Cataract Extraction w/IOL Implant, LEFT EYE [01361 (CPT??)] Surgery Details Date/Time Status Location OR Service Patient Class Case Class Case Type Trauma Case? 09/29/2019 1325 Posted [facility] FOR 04 Ophthal[facility] Hospital [...] Code Departure Means Destination Home or Self Mcfp documented in this encounter H&P Notes * [...] Acosta MD 09/29/2019 14:05 Source Note - LICENSING AND REGISTRATION DIRECTOR, SCAN 2 - 09/23/2019 11:20 EST documented in this encounter OR Notes * OR Surgeon - Mu Acosta MD - 09/29/2019 1451 EST Preoperative diagnosis: combined senile cataract, left eye Postoperative diagnosis: Same as above Procedure: Phacoemulsification with intraocular lens implantation, left eye Surgeon: Mu Acosta MD Salesperson Stereo Equipment: ROBBIN Shah Anesthesia: Local with monitored anesthesia [...] Info) Description 09/03/2024 13:00 EST Office Visit [facility] Ophthalmology - [facility] [address] [place], [place] [address] Anjum Miranda MD [address] [facility], [address] [place] [address] documented as of this encounter Procedures Procedure Name Priority Date/Time Associated Diagnosis Comments IMPLANT RECORD - SCANNED 10/05/2019 22:25 EST EXTRACTION, CATARACT, EXTRACAPSULAR, WITH IOL INSERTION 09/29/2019 14:17 EST Combined forms of age-related cataract of both eyes documented in this encounter Results * IMPLANT RECORD - SCANNED (10/05/2019 22:25 EST) 10/05/2019 22:2 5 EST us Scan 2 Professional Security Officer PROCEDURE/MINOR SURGICAL OR DERABLES Final Result documented [...] Mu Acosta MD - Comment: BSS Plus [id number] BSS Part II [id number]) chondroitin-sodium hyaluronate (VISCOAT) ophthalmic solution (CANCELED) As needed, Starting on 09/29/19 at 1432, Until 09/29/19 at 1434, Routine, Intraprocedure 1432 (Given - Provid er: Mu Acosta MD - Comment: [id number]) lidocaine (PF) 10 mg/mL (1 %) injection (CANCELED) As needed, Starting on 09/29/19 at 1432, Until 09/29/19 at 1434, Routine, Intraprocedure 1432 (Given - Provid er: Mu Acosta MD - Comment: [id number]) moxifloxacin (VIGAMOX) 0.5 % ophthalmic solution (CANCELED) [...] 09/29/2019 documented in this encounter Care Teams Business Mgr Relationship Specialty Start Date End Date Karo Otero MD [address] [place] [phone] PCP - General 01/07/18 04/06/23 documented as of this encounter
--- OUTSIDE RECORDS SUMMARY | 2024-07-06 14:08 | XMS_ITS | Encounter Summary ---
Author Organization [facility] Address [address] [place] [address] Care Team Providers Care Family Independence Case Manager Name Role Phone Karo Otero MD Primary Care Provider [phone] Reason for Referral * Radiology Services (Routine) - New Request Specialty Diagnoses / Procedures Referred By Contac t Referred To Contact Diagnoses Pain in right femur Procedures FEMUR 2 OR MORE VIEWS Mauricio Dodson MD MSc [facility] Phone: tel: fax: Referral ID Status Reason Start Date Expiration Date V isits Requested Visits Authorized [id number] New Request 06/08/2018 1 1 Reason for Visit * Reason Onset Date Comments Other 06/08/2018 Encounter Details Date Type Department Care Team (Late st Contact Info) Description 06/08/2018 Orders Only [facility] Total Joint Program - [address] [address] Mauricio Dodson MD MSc [facility] [address] [place] [phone] Pain in right femur (Primary Dx) [...] Description 09/03/2024 13:00 EST Office Visit [facility] Ophthalmology - [address] [address] Anjum Miranda MD 111 [facility], [address] [place] [address] documented as of this encounter Procedures Procedure Name Priority Date/Time Associated Diagnosis Comments FEMUR 2 OR MORE VIEWS Routine 06/10/2018 10:35 EDT Pain in right femur documented in this encounter Results * FEMUR 2 OR MORE VIEWS (06/10/2018 10:35 EDT) Anatomical Region Laterality Modality Other 06/10/2018 10:3 5 EDT 06/10/2018 15:28 EDT Narrative 06/10/2018 15:28 EDT HISTORY: ?? M89.7T1-Fjldo specified disorders of bone, [id number]; right ORIF tay Prosth fx COMPARISON: None. [...] Note Chang Merlos MD - 06/10/2018 HISTORY: M89.8J5-Teqdj specified disorders of bone, [id number]-NZZ-97; right ORIF tay Prosth fx COMPARISON: None. [...] setting of loosening. Mauricio Dodson MD MSc [facility] IMG DIAGNOSTIC I MAGING ORDERABLES Final Result documented in this encounter Visit Diagnoses Diagnosis Pain in right femur- Primary documented in this encounter Care Teams Family Independence Case Manager Relationship Specialty Start Date End Date Karo Otero MD [address] [place] [address] PCP - General 01/07/18 04/06/23 documented as of this encounter
[2024-07-06 14:09] LABS: Anion Gap 7.8 mmol/L (3-11); BUN 29 mg/dL (7-18); CO2 26.2 mmol/L (21.0-32.0); Calcium 8.5 mg/dL (8.5-10.1); Chloride 107 mmol/L (98-107); Glucose 88 mg/dL (74-106); Potassium 4.9 mmol/L (3.5-5.1); Sodium 141 mmol/L (136-145)
--- OUTSIDE RECORDS SUMMARY | 2024-07-06 14:09 | XMS_ITS | Encounter Summary ---
Author Organization [facility] Address [address] [place] [address] Care Team Providers Care Automotive Alignment Specialist Name Role Phone Karo Otero MD Primary Care Provider [phone] Encounter Details Date Type Department Care Team (Late st Contact Info) Description 01/09/2018 Results Only Imaging [facility] Total Joint Program - [address] [address] Mauricio Dodson MD MSc [facility] [address] [place] [address] Social History Tobacco Use Types [...] Info) Description 09/03/2024 13:00 EST Office Visit [facility] Ophthalmology - [address] [phone] Anjum Miranda MD [address] [facility], [address] [place] [phone] documented as of this encounter Procedures Procedure [...] sponges are identified. Mauricio Dodson MD, MSc [facility] IMG DIAGNOSTIC I MAGING ORDERABLES Final Result * [place] UP TO 1 HOUR (01/09/2018 18:13 EDT) Anatomical Region Laterality Modality Other 01/09/2018 18:1 3 EDT Narrative 01/09/2018 18:13 EDT Non Reportable Exam Procedure Note TAX TECHNICIAN, IMAGING - 01/09/2018 Non Reportable Exam [facility] Dodson MD [facility]Sc [facility] ORDERABLES Final Result documented in this encounter Visit Diagnoses Not on filedocumented in this encounter Care Teams Automotive Alignment Specialist Relationship Specialty Start Date End Date Karo Otero MD [address] [place] [address] PCP - General 01/07/18 04/06/23 documented as of this encounter
--- OUTSIDE RECORDS SUMMARY | 2024-07-06 14:09 | XMS_ITS ---
Author Organization Unknown Address [address] [place] [phone] Phone Care Team Providers Care Marble Mason Name Role Phone CRAIG LATIF MD Attending [...] CHOW M.D. RADIOLOGIST Transcribed by: JOSE 04/30/2116:24 [id number] Electronically Reviewed and Signed By: CALVIN CHOW [...] CHOW M.D. RADIOLOGIST Transcribed by: JOSE 04/30/21/16:31 [id number] Electronically Reviewed and Signed By: CALVIN CHOW M.D. RADIOLOGIST 05/01/21 11:01 Social History Type Status Start Date End Date Code Code Syst em Smoking History Former smoker 08/18/19959056 1181418 SNOMED CT Sex Male Medications Medication Start Date End Date Route Frequency Dose Code Code System Medication Instructions Home Meds Androderm 4MG/24HR Transdermal Patch, Extended Release 09/25/2021 Unknown TRANSDERMAL BEDTIME 1 TRANSDERMAL PATCH 2347474 RxNorm APPLY 1 TRANSDERMAL PATCH TRANSDERMAL BEDTIME Aspir 81 81MG Oral Tablet, Enteric Coated 09/25/2021 Unknown ORAL DAILY 81 MILLIGRAMS RxNorm TAKE 81 MILLIGRAMS ORAL DAILY Atorvastatin Calcium 80MG Oral Tablet 09/25/2021 Unknown ORAL BEDTIME 80 MILLIGRAMS 806636 RxNorm TAKE 80 MILLIGRAMS ORAL BEDTIME Calcium 600 MG Oral Tablet 09/25/2021 Unknown ORAL DAILY 600 MG 571316 RxNorm TAKE 600 MG ORAL DAILY Temazepam 15MG Oral Capsule 09/25/2021 Unknown ORAL BEDTIME 15 MILLIGRAMS 340549 RxNorm TAKE 15 MILLIGRAMS ORAL BEDTIME Valsartan 160MG Oral Tablet 09/25/2021 09/25/19 22 ORAL DAILY 160 MILLIGRAMS 465957 RxNorm TAKE 160 MILLIGRAMS ORAL DAILY Vitamin D 1000IU Oral Tablet 09/25/2021 Unknown ORAL DAILY 1000 INTERNATIONA L UNITS 265435 RxNorm TAKE 1000 INTERNATIONA L UNITS ORAL DAILY buPROPion Hydrochlorid e SR 150MG Oral Tablet, Extended Release, 12 HR 09/25/2021 Unknown ORAL TWICE A DAY 150 MILLIGRAMS 2415231 RxNorm TAKE 150 MILLIGRAMS ORAL TWICE A DAY Valsartan 160MG Oral Tablet 09/25/2021 09/26/19 22 ORAL DAILY 160 MILLIGRAMS 211100 RxNorm TAKE 160 MILLIGRAMS ORAL DAILY Valsartan 160MG Oral Tablet 09/26/2021 Unknown ORAL DAILY 160 MILLIGRAMS 807850 RxNorm TAKE 1 TABLET BY MOUTH DAILY [...] arthrodesi s, deltoid ligament reconstruc tion 09/17 [id number] 9 01/15/2026 Arthre x(R) AR-1319 FT Bone matrix implant, synthetic, non-antimi crobial 0110 8594 7700 2140 1121 1220 1723 0430 1017 2247 8 Active FDA left foot triple arthrodesi s, poss deltoid ligament reconsttru ction 09/17 [id number] 08/06/2021 12/15/2022 AUGMEN T(R) Inject able [id number] 10 +M53 6276 1501 51/$ $526 2702 0524 9120 3F Active FDA left foot triple arthrodesi s, possible deltoid ligament reconstruc tion 09/172491 203F 05/14/2026 Cancel lous Chips 4-9.5m m 15 cc Allergies and Adverse Reactions Allergy Substance Reaction Severity Start Date Concern Status Co de Code System OXYCODONE Nausea (SNOMED-CT: [id number]) Mild Active 7804 RxNorm Plan of Treatment PRE-OP COVID-19 TESTING 09/14/2021 MRI LOWER EXT W/O CONTRAST 07/17/2021 Encounters Encounter Diagnosis Start Date Code Code Sys tem 04/30/2021 [id number] SNOMED-CT Personal Care Team Section Performer Name Performer Role Active Date Inactive Da valeri
--- OUTSIDE RECORDS SUMMARY | 2024-07-06 14:09 | XMS_ITS | Encounter Summary ---
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 Phone: tel: fax: Referral ID Status Reason Start Date Expiration Date V isits Requested Visits Authorized [id number] Closed Specialty Services Required 01/17/2018 1 1 Question Answer Reason for Request: s/p ORIF R periprosthetic femur fx 01/09 Expected Discharge Date (Inpatient Only): 01/13/2018 * (Routine) - Receiving Office to Obtain Authorization Specialty Diagnoses / Procedures Referred By Contac t Referred To Contact Ana Obrien NP Phone: tel: fax: Referral ID Status Reason Start Date Expiration Date Visits Requested Visits Authorized [id number] Receiving Office to Obtain Authorization Specialty Services Required 8 1 1 Comments See Mauricio Dodson MD. [facility] is located at [address] [place] [address]. Call [phone] if no appointment is scheduled. 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, initial encounter Ana Obrien NP Phone: tel: fax: [facility] [place], [place] [address] [place] [address] Phone: tel: fax: Referral ID Status Reason Start Date Expiration Date Visits Requested Visits Authorized [id number] New Request Specialty Services Required 01/13/2018 1 1 Question Answer I certify that this patient is under my care and that I, or another Medicare allowed practitioner (DO INGRID, KEREN) working with me, had a bmev-ra-oyxa encounter with this patient on this date: 01/13/2018 I further certify that the nlma-bx-jvpe encounter was in whole or in part [...] EDT - 01/13/2018 12:34 EDT Hospital Encounter [facility] [address] [place] [address] Vinayak Melo MD Lisle, Jennifer Webster, MD [address] [place] [phone] Mauricio Dodson MD MSc [facility]CSC [address] [place] [phone] Sumeet Carpio, [address] [phone] 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, initial encounter (Primary Dx); 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, unspecified vessel or lesion type ([facility]); Hypertension, unspecified type; Hyperlipidemia, unspecified hyperlipidemia type; Acute renal failure superimposed on stage 3 chronic kidney disease, unspecified acute renal failure type ([facility]); Hyponatremia Discharge Disposition: Home-Health Care Svc Social [...] failure, unspecified-N17.9[ICD-10-CM] E87.1 HYPO-OSMOLALITY AND HYPONATREMIA[ICD-10-CM] Z79.01 technician terminal and repeater (current) use of anticoagulants-Z79.01[ICD-10-CM] Z79.02 technician terminal and repeater (current) use of antithrombotics/antiplatelets-Z79.02[ICD-10-CM] Z79.82 technician terminal and repeater (current) use of aspirin-Z79.82[ICD-10-CM] R50.84 Febrile nonhemolytic transfusion reaction-R50.84[ICD-10-CM] I25.10 Atherosclerotic heart disease of burns paiute coronary artery without angina pectoris-I25.10[ICD-10-CM] Z95.5 Presence of coronary angioplasty implant and graft-Z95.5[ICD-10-CM] I12.9 Hypertensive chronic kidney disease with stage 1 through stage 4 chronic kidney disease, or unspecified chronic kidney disease-I12.9[ICD-10-CM] N18.3 Chronic kidney disease, stage 3 (moderate)-N18.3[ICD-10-CM] D64.9 Anemia, unspecified-D64.9[ICD-10-CM] D69.6 Thrombocytopenia, unspecified-D69.6[ICD-10-CM] F32.9 Major depressive disorder, single episode, unspecified-F32.9[ICD-10-CM] G47.00 Insomnia, unspecified-G47.00[ICD-10-CM] Y92.007 Garden or yard [facility]-Y92.007[ICD-10-CM] W17.89XA Other fall from [...] combination bp medication on 01/15. - continue FREIGHT SERVICE INSPECTOR metoprolol bid - cont. homestatin elevated creatinine: [...] 01/13/2018 Discharge Follow Up Appointments Scheduled with [facility] in the next 3 months No future appointments. Appointments and Procedures Recommended to Patient Follow-up appointments and procedures Appointments See Mauricio Dodson MD. [facility] is located at [address] [place] [address]. Call [phone] if no appointment is scheduled. Authorizing Provider: Ana Obrien NP Home Health Agency - Other I certify that this patient is under my care and that I, or another Medicare authorized non-physician practitioner (PA or MATCH MARKER) or resident working with me, had a jvhl-ze-fpwb encounter with this patient on this date: 01/13/2018 I further certify that the mxov-xw-iqtq encounter was in whole or in part related to the reason thepatient needs home health care.: Yes The patient has had a iyxy-fs-pebu visit by me or one of my [...] Notes * Ana Obrien NP - 01/13/2018 4174 EDT Post-discharge note: Patient with rcent PCI [...] ACNP-BC 01/14/2018 11:23 Nurse Practitioner Orthopedics Pager [phone] * Danielle Sapp, PT - 01/13/[address] [facility] Acute Therapies [facility] Physical Therapy Discontinue/Discharge Note Date of Service: 01/13/2018 Precautions: Activity as tolerated and Egg-shell touch down right LE ?? SUBJECTIVE: You lied to me, I am allowed 20# weight bearing (explained to pt that this was clarified after yesterdays PT session) OBJECTIVE: Intervention Completed Today: Physical therapist teachers assistant provided treatment today and Time: 0820 [...] by a physical therapist and physical therapist teachers assistant. Please refer to the physical therapy [...] therapist: Danielle Wolf PTA 01/13/2018 11:22 Pager: [phone] * Viviane Verduzco CSW - 01/13/2018 1010 EDT Met w/Allan this morning to check in about his preference for d/c. Allan plans to go home - he has RW & commode, but would like Pt. Called referral to [facility] for PT services. will be here 11:15 to take him home. RN, ortho aware. No other needs at this time lise gan paper sealer [phone] * Barber Dawkins MD - 01/13/2018 [...] and plavix - given elevated bp, restart FREIGHT SERVICE INSPECTOR losartan at 100mg daily - cont. To hold HCTZ (25mg) given low sodium - cont. FREIGHT SERVICE INSPECTOR metoprolol bid - cont. Atorvastatin At d/c [...] 01/13/2018 * Sumeet Carpio DO - 01/12/2018 7394 EDT Medicine Progress Note Service Date: 01/12/2018 [...] Carpio DO 01/12/2018 14:54 * Sera Wolf, FREIGHT SERVICE INSPECTOR - 01/12/[address] [facility] Acute Therapies [facility] Physical Therapy Encounter Note Date of [...] home and as last resort would want [facility] for [facility] due to its proximity to pts home, [...] Therapist: Halina Wolf PTA 01/12/2018 12:40 Pager: [phone] * Wendi Chou - 01/12/2018 6165 EDT Pt is on the fence regarding dc home with VNA services, or rehab. Friend of their's is a directorat [facility] with this being the [...] Sapp, PT - 01/10/[address] [facility] Acute Therapies [facility] Physical Therapy Initial Evaluation Note Date [...] knee jt, init-M97.11XA[ICD-10-CM] The patientlives at [address] [id number] Pre-Op Diagnosis: Right perioprosthetic femoral shaft fracture [...] step into his home, recommend discharge to [facility] to allow patient time to achieve independence with kimberly to dusk endurance and mobility prior to returning home. Patient would prefer to go to a rehab closer to his home in [facility]. Short-Term Goals: ?? NA Long-Term Goals: [...] provided by physical therapist and/or physical therapist teachers assistant when medically appropriate. Frequency: daily for [...] Wheelchair Other recommendations: Social Work consult Pager: [phone] DANIELLE SAPP, [place] 01/10/2018 11:35 * Barber [...] planning Barber Dawkins MD 8:27 01/10/2018 Pager: [phone] Cosigned by Jr Delgado MD at 01/19/2018 14:15 EDT * Viviane Verduzco CSW - 01/09/2018 1042 EDT attempted to see jazz but he was visitng w/his mid level project manager. Will go by later. lise gan paper sealer [phone] * Seth Cortez MD - 01/09/2018 [...] will continue to follow. Pleasepage the hospital animal impersonator with any further questions. ?? Seth Cortez [...] III : 1940, AGE: 77 y.o. Room: [place] [address] Jazz Brothers III who is listed as Gnosticist has received a visit from the Spiritual Care Department on 01/08/2018. Need/Assessment: - Pt is in bed/awake - Pt welcomed visit - Pt came down with broken femur - Pt fell at home - Pt is scheduled for surgery tomorrow Intervention: - Bricklayer provided supportive listening presence and encouragement toward pt's procedure tomorrow.Offered Comm,prayer/blessing Outcome: ?? Plan of Action: No Follow up necessary - Needs met Continued Family Support Continued Support from Bricklayer following patient Make a Referral to: Continued [...] x Other Chaplain Herbert Price 131 Phone [phone] Spiritual Care is available 24 hours a day. Office hours are 0800 to 1700 Friday through Friday and 0830 to 1630 Friday and Friday. Interfaith and Denominational chaplains are available 24 hours a day. For routine consults please call and leave a message with the Spiritual Care Office ([phone]) and patients will be seen within 24 hours. Forall emergent consults page the Gnosticist or Interfaith on-call Bricklayer through PAS ([phone]). * Viviane Verduzco CSW - 01/08/2018 1157 [...] Friends / neighbors, Spouse / significant other, Latter Day / mary community Is 10/03 care available? NA - works from home late afternoon into the evening. ADVANCED DIRECTIVES, POA &/or COLST IN PLACE: Healthcare Directive: Yes, patient has advance directive for healthcare treatment DIRECTIVES FOR FINANCES: TRANSPORTATION: Uncertain of d/c plan and transport CULTURAL, JUDAISM and/or LANGUAGE factors affecting health care/discharge planning: Spiritual/Cultural Requests: Prayer Any factors affecting health care/discharge planning?: No Insurance in Place: Yes Medical Insurance: Yes Referred to patient financial services: No [facility] DISCHARGE RISK ASSESSMENT: None of the above [...] OR tomorrow. He and his live in [place], moved here a couple years ago from [place]. 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 He has good support from friends, religious & . We talked about plans after OR and he said he was told he will need rehab. I explained that therapies will see him and make recs for d/c plan. He initially said he would like to go the to the rehab in [facility]. I explained AR vs MATTY vs home and we talked about making decisions as he works w/therapies and sees how he is doing. Explained my role and provided my contact info. Will follow LATIA Hernandez 01/08/2018 11:57 * Chasity Rios, PT - 01/08/2018 0656 EDT Rehabilitation Therapies [facility] Date of Service: 01/08/2018 [...] pending Erika Estrada MD 6:15 01/08/2018 Pager: [phone] documented in this encounter H&P Notes * [...] on file. SH: The patient lives in [place], [place] with his No tobacco or drug [...] and extends proximally.No significant shortening or comminution. Loyal anterior. Patient RLE placed in Jackson traction of 10 pounds Assessment: Jazz Brothers [...] and medicine) 3. Will acquire records from [facility] Pre-Op Checklist 1 Consent completed 2 Extremity [...] Product Detail: Red Blood Cells Donor/Unit Number: [id number] Amount Transfused: 330 mL Reaction Description: chills/rigors Laboratory Investigation Laboratory workup? No - Per Dr. Diego Zamarripa Pre-transfusion records reviewed? Yes Clerical/is architect errors found? No Post-transfusion blood specimen Serum [...] Q2HPRN ceFAZolin (ANCEF) syringe 2 g intravenous EXECUTIVE DIRECTOR SHELTERED WORKSHOP TO O.R. cholecalciferol (Vitamin D3) tablet 2,000 [...] will continue to follow. Pleasepage the hospital animal impersonator with any further questions. Seth Cortez MD [...] 11/19/17), HTN, HLD, CKD (baseline Cr per [facility] is 1.5) who presents following a mechanical fall resulting inright femur fracture. Patient reports that following admission at [facility] for UA in early November he has [...] edema ECG: SR Cardiac/Radiology Studies: LHC at [facility] (11/19/17): Echo at [facility]: EF of 65%, posterior and lateral hypokinesis, [...] 11/19/17), HTN, HLD, CKD (baseline Cr per [facility] is 1.5) who presents following a mechanical [...] favor continuation of DAPT to minimize perioperative KS. Patient medically optimized for surgery. - continue ASA, plavix 75mg daily - continue lipitor 80mg daily - continue Toprol XL 12.5mg BID - hold losartan/HCTZ day of procedure Please do not hesitate to call with any questions or concerns. Case discussed with Dr. Maliha Lozano MD Beading Sawyer Pager # [phone] 01/07/2018 21:07 Cosigned by Rolando Thornton MD [...] status post successful 2-stage revision performed in [place], [place]. He fell while enjoying the view of the [employer] on 01/07/2018. He had immediate pain and deformity about his right knee and was unable to ambulate. He presented to the [facility] emergency room where he was admitted [...] PM / Sumeet Leon MD cn Confirmation: [id number] Dictation ID: [id number] documented in this encounter ED Notes * [...] stents who presents to the ED from [place] with right femur fracture.. The patient reports [...] rhythm rate of 64. ??Intervals with prolonged RI interval of 221 ms, first-degree AV block., [...] and prescriptions to patient. Faxed prescriptions to [facility] pharmacy. Educated patient and spouse, Marina, on Lovenox therapy (hand-out provided), new medications (including Tramadol, Lovenox, bowel medications). Reviewed dressing care and provided extra dressin gs. Re-enforced education on egg-shell touchdown precautions. Called nursing report to [facility]. Response: Patient and spouse verbalized understanding. Left unit with all belongings in wheelchair with patient support. Plan to knot picker cloth prescriptions at pharmacy on way out of hospital. Lien Shu RN 01/13/2018 12:25 * Plan of Care [...] Post op Note Jazz Lise Brothers III [id number] Anesthesia received: General; Vital Signs: Temp: 35.6 [...] Op Note - Sumeet Leon - 01/09/2018 8336 EDT Brief Post-Op Note Date of Surgery: [...] regular Sumeet Leon MD 01/09/2018 19:08 Pager [phone] * Plan of Care - Eliana Baker RN - 01/09/2018 2044 EDT Problem: Daily Care Plan Goals Goal: [...] off of deck. On bedrest. Currently in [facility] at 10#. Requested pain medication at 1140 [...] see this AM. Implant records requested from [facility]-please call Sumeet Leon when results are received. FAX [phone]: discussed with Viji Scott; please send record [...] pulse. Leg externally rotated Action: Pt oriented animal impersonator leal use. Placed NPO, IVF infusing. Pain [...] Info) Description 09/03/2024 13:00 EST Office Visit [facility] - [address] [phone] Anjum Miranda MD [address] [facility], [address] [place] [phone] Pending Results Name Type Priority Associated Diagnoses [...] 01/16/2018 11:0 4 EDT us Scan 2 Windows Vmware Administrator PROCEDURE/MINOR SURGICAL OR DERABLES Final Result * TRANSFUSION RECORD - SCANNED (01/16/2018 11:04 EDT) 01/16/2018 11:0 4 EDT us Scan 2 Windows Vmware Administrator LAB INFO SERVICE AND SUPPOR T & PHONE RESULT Final Result * (ABNORMAL) ELECTROLYTES (01/13/2018 6:57 EDT) Sodium 130(L) 136 - 145 mEq/L 01/13/2018 7:47 EDT [facility] Potassium 4.6 3.5 - 5.0 mEq/L 01/13/2018 7:47 T [facility] Chloride 100 96 - 110 mEq/L 01/13/2018 7:47 EDT [facility] CO2 26 22 - 32 mEq/L 01/13/2018 7:47 T [facility] Blood specimen (specimen) BLOOD SPECIMEN / Unknown 01/13/2018 6:57 EDT 01/13/2018 7:13 EDT us Barber Dawkins MD CHEMISTRY & BLOOD GAS ORDERABLE S Final Result [facility] [address] [place] [address] * CREATININE (01/13/2018 6:57 EDT) Creatinine 1.02 0.66 - 1.25 mg/dl 01/13/2018 7:47 [facility] GFR, Calculated 70 >60 ml/min/1.7 3m2 01/13/2018 7:47 [facility] Comment: eGFR calculated using CKD-EPI equation for non Americans. Multiply eGFR by 1.16 for Americans. Blood specimen (specimen) BLOOD SPECIMEN / Unknown 01/13/2018 6:57 EDT 01/13/2018 7:13 EDT Barber Dawkins MD CHEMISTRY & BLOOD GAS ORDERABLE S Final Result Performing Organization Address [facility] Co de Phone Number [facility] [address] [place] [address] * BUN (01/13/2018 6:57 EDT) BUN 14 10 - 26 mg/dl 01/13/2018 7:47 [facility] Blood specimen (specimen) BLOOD SPECIMEN / Unknown 01/13/2018 6:57 EDT 01/13/2018 7:13 EDT Barber Dawkins MD CHEMISTRY & BLOOD GAS ORDERABLE S Final Result Performing Organization Address [facility] de Phone Number [facility] [address] [place] [address] * (ABNORMAL) HEMAGRAM AND DIFFERENTIAL (01/13/2018 6:57 EDT) WBC 6.06 4.0 - 10.4 K/cmm 01/13/2018 7:22 [facility] RBC 3.04(L) 4.36 - 5.78 M/cmm 01/13/2018 7:22 [facility] Hemoglobin 9.2(L) 13.8 - 17.3 gm/dl 01/13/2018 7:22 [facility] HCT 26.5(L) 39.5 - 50.2 % 01/13/2018 7:22 [facility] MCV 87 81 - 95 fl 01/13/2018 7:22 [facility] MCH 30.3 27.6 - 33.0 pg 01/13/2018 7:22 [facility] MCHC 34.7 32.8 - 36.4 gm/dl 01/13/2018 7:22 [facility] RDW-CV 13.9 <14.2 % 01/13/2018 7:22 [facility] RDW-SD 44.0 <46.0 fl 01/13/2018 7:22 [facility] PLT 149 141 - 377 K/cmm 01/13/2018 7:22 [facility] MPV 10.1 9.5 - 12.7 fl 01/13/2018 7:22 [facility] % Neutrophils 66.6 % 01/13/2018 7:22 [facility] % Lymphocytes 19.3 % 01/13/2018 7:22 [facility] % Monocytes 9.9 % 01/13/2018 7:22 [facility] % Eosinophils 3.0 % 01/13/2018 7:22 [facility] % Basophils 0.7 % 01/13/2018 7:22 [facility] % Immature Grans 0.5 % 01/13/2018 7:22 [facility] ABS Neutrophils 4.04 2.20 - 8.85 K/cmm 01/13/2018 7:22 [facility] ABS Lymphs 1.17 1.09 - 3.30 K/cmm 01/13/2018 7:22 [facility] ABS Monocytes 0.60 0.1 - 0.8 K/cm 01/13/2018 7:22 [facility] ABS Eosinophils 0.18 0.03 - 0.61 K/cm 01/13/2018 7:22 [facility] ABS Basophils 0.04 0.01 - 0.11 K/cm 01/13/2018 7:22 [facility] ABS Immature Grans 0.03 0 - 0.06 K/cm 01/13/2018 7:22 [facility] Type of Diff: Automated 01/13/2018 7:22 [facility] Blood specimen (specimen) BLOOD SPECIMEN / Unknown 01/13/2018 6:57 EDT 01/13/2018 7:13 EDT Barber Dawkins MD PACKAGES & DNA PROBE ORDERABLES Final Result Performing Organization Address [facility] de Phone Number [facility] [address] [place] [address] * (ABNORMAL) ELECTROLYTES (01/12/2018 9:32 EDT) Sodium 130(L) 136 - 145 mEq/L 01/12/2018 11:03 EDT [facility] Potassium 4.3 3.5 - 5.0 mEq/L 01/12/2018 11:03 T [facility] Chloride 98 96 - 110 mEq/L 01/12/2018 11:03 T [facility] CO2 23 22 - 32 mEq/L 01/12/2018 11:03 EDT [facility] Blood specimen (specimen) BLOOD SPECIMEN / Unknown 01/12/2018 9:32 EDT 01/12/2018 10:08 EDT Barber Dawkins MD CHEMISTRY & BLOOD GAS ORDERABLE S Final Result Performing Organization Address [facility] Co de Phone Number [facility] [address] [place] [address] * CREATININE (01/12/2018 9:32 EDT) Creatinine 1.04 0.66 - 1.25 mg/dl 01/12/2018 11:03 EDT [facility] GFR, Calculated 68 >60 ml/min/1.7 3m2 01/12/2018 11:03 T [facility] Comment: eGFR calculated using CKD-EPI equation for non Americans. Multiply eGFR by 1.16 for Americans. Blood specimen (specimen) BLOOD SPECIMEN / Unknown 01/12/2018 9:32 EDT 01/12/2018 10:08 EDT Barber Dawkins MD CHEMISTRY & BLOOD GAS ORDERABLE S Final Result [facility] [address] [place] [address] * BUN (01/12/2018 9:32 EDT) BUN 14 10 - 26 mg/dl 01/12/2018 11:03 [facility] Blood specimen (specimen) BLOOD SPECIMEN / Unknown 01/12/2018 9:32 EDT 01/12/2018 10:08 EDT Barber Dawkins MD CHEMISTRY & BLOOD GAS ORDERABLE S Final Result Performing Organization Address [facility]/ZIP Co de Phone Number [facility] [address] [place] [address] * (ABNORMAL) HEMAGRAM AND DIFFERENTIAL (01/12/2018 6:32 EDT) WBC 5.97 4.0 - 10.4 K/cmm 01/12/2018 8:13 [facility] RBC 2.90(L) 4.36 - 5.78 M/cmm 01/12/2018 8:13 [facility] Hemoglobin 8.7(L) 13.8 - 17.3 gm/dl 01/12/2018 8:13 [facility] HCT 24.8(L) 39.5 - 50.2 % 01/12/2018 8:13 [facility] MCV 86 81 - 95 fl 01/12/2018 8:13 [facility] MCH 30.0 27.6 - 33.0 pg 01/12/2018 8:13 [facility] MCHC 35.1 32.8 - 36.4 gm/dl 01/12/2018 8:13 [facility] RDW-CV 13.8 <14.2 % 01/12/2018 8:13 [facility] RDW-SD 43.5 <46.0 fl 01/12/2018 8:13 [facility] PLT 117(L) 141 - 377 K/cmm 01/12/2018 8:13 [facility] MPV 11.0 9.5 - 12.7 fl 01/12/2018 8:13 [facility] % Neutrophils 72.1 % 01/12/2018 8:13 [facility] % Lymphocytes 15.2 % 01/12/2018 8:13 [facility] % Monocytes 10.4 % 01/12/2018 8:13 [facility] % Eosinophils 1.5 % 01/12/2018 8:13 [facility] % Basophils 0.5 % 01/12/2018 8:13 [facility] % Immature Grans 0.3 % 01/12/2018 8:13 [facility] ABS Neutrophils 4.30 2.20 - 8.85 [facility] 01/12/2018 8:13 [facility] ABS Lymphs 0.91(L) 1.09 - 3.30 [facility] 01/12/2018 8:13 [facility] ABS Monocytes 0.62 0.1 - 0.8 /[facility] 01/12/2018 8:13 [facility] ABS Eosinophils 0.09 0.03 - 0.61 /[facility] 01/12/2018 8:13 [facility] ABS Basophils 0.03 0.01 - 0.11 /[facility] 01/12/2018 8:13 [facility] ABS Immature Grans 0.02 0 - 0.06 [facility] 01/12/2018 8:13 [facility] Type of Diff: Automated 01/12/2018 8:13 [facility] Blood specimen (specimen) BLOOD SPECIMEN / Unknown 01/12/2018 6:32 EDT 01/12/2018 8:07 EDT us Barber Dawkins MD PACKAGES & DNA PROBE ORDERABLES Final Result [facility] [address] [place] [address] * (ABNORMAL) HEMAGRAM AND DIFFERENTIAL (01/11/2018 20:47 EDT) WBC 8.91 4.0 - 10.4 K/cmm 01/11/2018 23:21 [facility] RBC 3.01(L) 4.36 - 5.78 M/cmm 01/11/2018 23:21 [facility] Hemoglobin 8.9(L) 13.8 - 17.3 gm/dl 01/11/2018 23:21 [facility] HCT 25.9(L) 39.5 - 50.2 % 01/11/2018 23:21 [facility] MCV 86 81 - 95 fl 01/11/2018 23:21 [facility] MCH 29.6 27.6 - 33.0 pg 01/11/2018 23:21 [facility] MCHC 34.4 32.8 - 36.4 gm/dl 01/11/2018 23:21 [facility] RDW-CV 13.8 <14.2 % 01/11/2018 23:21 [facility] RDW-SD 42.9 <46.0 fl 01/11/2018 23:21 [facility] PLT 123(L) 141 - 377 K/cmm 01/11/2018 23:21 [facility] MPV 10.9 9.5 - 12.7 fl 01/11/2018 23:21 [facility] % Neutrophils 74.0 % 01/11/2018 23:21 [facility] % Lymphocytes 15.0 % 01/11/2018 23:21 [facility] % Monocytes 9.8 % 01/11/2018 23:21 [facility] % Eosinophils 0.6 % 01/11/2018 23:21 [facility] % Basophils 0.3 % 01/11/2018 23:21 [facility] % Immature Grans 0.3 % 01/11/2018 23:21 [facility] ABS Neutrophils 6.59 2.20 - 8.85 K/cmm 01/11/2018 23:21 EDT [facility] Lymphs 1.34 1.09 - 3.30 K/[facility] 01/11/2018 23:21 T [facility] Monocytes 0.87(H) 0.1 - 0.8 K/[facility] 01/11/2018 23:21 EDT [facility] Eosinophils 0.05 0.03 - 0.61 K/[facility] 01/11/2018 23:21 T [facility] ABS Basophils 0.03 0.01 - 0.11 K/[facility] 01/11/2018 23:21 T [facility] ABS Immature Grans 0.03 0 - 0.06 K/[facility] 01/11/2018 23:21 T [facility] Type of Diff: Automated 01/11/2018 23:21 [facility] Blood specimen (specimen) BLOOD SPECIMEN / Unknown 01/11/2018 20:47 EDT 01/11/2018 20:56 EDT us Willie Kaur MD PACKAGES & DNA PROBE ORDERABLES Final Result Performing Organization Address City/State/[facility] Co de Phone Number [facility] [address] [place] [address] * TRANSFUSE RED BLOOD CELLS (01/11/2018 18:06 EDT) Blood specimen (specimen) us Willie Kaur MD NURSING TREATMENT - BLOOD ADMIN ISTRATION Final Result * TRANSFUSE RED BLOOD CELLS (01/11/2018 14:28 EDT) Blood specimen (specimen) us Willie Kaur MD NURSING TREATMENT - BLOOD ADMIN ISTRATION Final Result * PREPARE RED BLOOD CELLS (01/11/2018 10:21 EDT) Product Code [id number] [facility] Donor Number [id number] [facility] Unit ABO B [facility] [place] [facility] Unit Rh POS [facility] [place] [facility] Unit Status TR^Transfuse [facility] Product Expiration Date [id number] [facility] Unit Blood Type Code 7300 [facility] Coding System [id number] [facility] 01/11/2018 10:2 1 EDT us Willie Kaur MD BLOOD BANK ORDERABLES Final Res ult Performing Organization Address [facility] de Phone Number [facility] [address] [place], [place] [address] * PREPARE RED BLOOD CELLS (01/11/2018 10:21 EDT) Product Code [id number] [facility] Donor Number [id number] [facility] Unit ABO B [facility] [place] [facility] Unit Rh POS [facility] BLOOD [facility] Unit Status TR^Transfuse [facility] BLOOD [facility] Product Expiration Date [id number] [facility] Unit Blood Type Code 7300 [facility] Coding System [id number] [facility] Blood specimen (specimen) 01/11/2018 10:21 EDT us Willie Kaur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
[2024-07-06 14:26] LABS: PTT Activated 78.7 sec (23.6-32.8); Prothrombin Time 59.2 sec (9.1-11.1)
== END 2024-07-06 13:40 | disposition home or self-care (01) ==
LOC: NCHCN 13:39
PROVIDERS: PCP Family Medicine; Visit Provider Family Medicine
DX: I48.91 Unspecified atrial fibrillation (principal)
CPT/HCPCS: 80048; 85610; 85730

== ENCOUNTER 2024-08-23 15:48 | Outpatient (CLI) | payer MEDICARE, SELFPAY ==
--- NOTE | 2024-08-23 09:45 | DI.RAD_ITS ---
Exam(s) XR KNEE LT 2V AP,LAT EXAM: XR KNEE LT 2V AP,LAT CLINICAL HISTORY: pain. TECHNIQUE: 2D digital imaging was performed. Two images were obtained. AP and lateral views were ob tained. COMPARISON: CR XR KNEE LT 2V AP,LAT from 06/16/2023 FINDINGS: BONES: There are stable post operative changes of a left total knee arthroplasty present. No fractur e or dislocation. JOINTS: The orthopedic hardware is in good position. No evidence of hardware loosening. SOFT TISSUE: Extensive atherosclerotic calcification is present. IMPRESSION: Stable left total knee arthroplasty. DATA REPOSITORY: RADIATION DOSE DELIVERED:
== END 2024-08-23 15:49 | disposition home or self-care (01) ==
LOC: DIORS 15:48
PROVIDERS: PCP Family Medicine; Visit Provider Student in an Organized Health Care Education/Training Program
DX: Z47.1 Aftercare following joint replacement surgery; Z96.652 Presence of left artificial knee joint
CPT/HCPCS: 99213; 73560

== ENCOUNTER → 2024-09-20 10:02 | Outpatient (BNVA) | payer MEDICARE, SELFPAY | PROVIDERS: PCP Family Medicine; Visit Provider Psychiatry & Neurology Neurology | DX: I69.393 Ataxia following cerebral infarction (principal); R06.09 Other forms of dyspnea | CPT/HCPCS: 99213 ==

== ENCOUNTER 2024-10-14 13:49 | Emergency (ER) | payer MEDICARE, SELFPAY ==
--- NOTE | 2024-10-14 13:30 | RT.EKG_ITS ---
APPROVED REPORT Exam: Resting ECG Reason for Exam: Dizzy, weak, cardiac hx Patient Location: E HR:108 bpm ECG Measurements Heart Rate 108 AXIS LA 124 P 0 QRSd 151 QRS -29 QT 408 T 108 QTc 547 Conclusion Sinus tachycardia, rate 108 LBBB, new from priors Q waves III, aVF, new from priors Sgarbossa negative
[2024-10-14 13:42] VITALS: BP 115/77; PULSE 107; RESP 20; TEMP 36.7; O2SAT 98
--- NOTE | 2024-10-14 14:15 | DI.CT_ITS ---
Exam(s) CT BRAIN NECK CTA EXAM: CT BRAIN NECK CTA CLINICAL HISTORY: vertigo and poor balance, on thinners. TECHNIQUE: Imaging Protocol: Axial CT angiography was performed with multi-slice acquisition and mu lti-planar and/or 3D reconstructions. CONTRAST MATERIAL: Intravenous: Omnipaque 350 contrast volume:70 mL COMPARISON: CT CT HEAD - STROKE PROTOCOL from 11/30/2023 MR MR ANGIO BRAIN WO from 12/01/2023 MR MR BRAIN WO from 12/01/2023 MR MR ANGIO BRAIN WO from 06/02/2024 FINDINGS: CT Head W/O and W: Ventricles and Extra axial spaces: Normal in size and morphology for the patient's age. Hemorrhage: None. Cerebral parenchyma: There are areas of decreased attenuation in the white matter most consistent wit h chronic microvascular ischemic change. No acute mass effect is identified at this time. Midline shift: None. Brainstem/Cerebellum: Normal. Calvarium: Normal. Visualized Paranasal sinuses/Mastoids: Clear. Soft Tissues: Unremarkable. Enhancement: Unremarkable. CTA Neck W: Common Carotid: Right: No dissection, occlusion or significant stenosis. Atherosclerotic calcification is present. This does result in less than 50 percent narrowing of the carotid bulb. Left: No dissection, occlusion or significant stenosis. Atherosclerotic calcification is present but no significant stenosis is seen. External Carotid: Right: No occlusion or significant stenosis. Left: No occlusion or significant stenosis. Internal Carotid: Right: No dissection, occlusion or significant stenosis. Atherosclerotic calcification is present. There is less than 50 percent stenosis seen in the proximal internal carotid artery. Left: No dissection, occlusion or significant stenosis. Atherosclerotic calcification is present but less than 50 percent stenosis is seen. Vertebral Artery: Right: No dissection, occlusion or significant stenosis. Left: No dissection, occlusion or significant stenosis. Lung Apices: Mild centrilobular emphysematous changes are seen in the lung apices. Bones: Within normal limits for the patient's age. There is reversal of the normal cervical lordosis which is likely degenerative in nature. Soft Tissues: Normal. Thyroid gland: Unremarkable. CTA Brain W: Internal Carotid Arteries: There is atherosclerotic calcifications seen in the cavernous portions of the internal carotid arteries, but no significant stenosis is present. Anterior Cerebral Arteries: Right: No aneurysm, occlusion or significant stenosis. Left: No aneurysm, occlusion or significant stenosis. Middle Cerebral Arteries: Right: No aneurysm, occlusion or significant stenosis. Left: No aneurysm, occlusion or significant stenosis. Posterior Cerebral Arteries: Both director fixed income arise from the posterior communicating arteries bilaterally. This is a normal variant. Right: No aneurysm, occlusion or significant stenosis. Left: No aneurysm, occlusion or significant stenosis. Vertebral Arteries: Right: No aneurysm, occlusion or significant stenosis. Left: No aneurysm, occlusion or significant stenosis. Atherosclerotic calcification is present. No significant stenosis is seen. Basilar Artery: No aneurysm, occlusion or significant stenosis. IMPRESSION: 1. No large vessel occlusion or significant stenosis on the CT angiography of the head. 2. No acute intracranial process. 3. No occlusion or significant stenosis on the CT angiography of the neck. RADIATION DOSE DELIVERED: 2,238.09mGy.cm Total DLP DATA REPOSITORY: All CT scans at this facility are submitted to the National Radiology Data Registry (NRDR) Dose Index Registry (DIR) with the [employer] (ACR). RADIATION OPTIMIZATION: All CT scans at this facility use at least one of these dose optimization te chniques: automated exposure control; mA and/or kV adjustment per patient size (includes targeted exa ms where dose is matched to clinical indication); or iterative reconstruction.
--- NOTE | 2024-10-14 14:20 | DI.RAD_ITS ---
Exam(s) XR CHEST 2V PA LATERAL EXAM: XR CHEST 2V PA LATERAL CLINICAL HISTORY: SOB/CP TECHNIQUE: 2D digital imaging was performed of the chest. Two images were obtained. PA and lateral views were obtained. COMPARISON: CR XR CHEST 2V PA LATERAL from 01/09/2024 CR XR PORTABLE CHEST AP from 06/30/2024 FINDINGS: MEDIASTINUM: Normal. HEART: Normal. PULMONARY VASCULATURE: Normal. LUNGS: There is a right perihilar infiltrate present. PLEURAL SPACE: No pleural effusion or pneumothorax. BONE:Within normal limits for the patient's age. There is an old stable compression fracture deformi ty of T12. OTHER FINDINGS:Normal. IMPRESSION: Right perihilar infiltrate which may represent atelectasis or pneumonia. Please correlate clinically . DATA REPOSITORY: RADIATION DOSE DELIVERED:
--- NOTE | 2024-10-14 14:31 | ED.GENADUL_ITS ---
Discharge Plan Disposition Patient Disposition: Home Condition: Stable Discharge Details Clinical Impression: Pneumonia, Atrial fibrillation, CVA (cerebral vascular accident), HTN (hypertension), Cerebral aneurysm, CKD (chronic kidney disease) stage 3, GFR 30- 59 ml/min, Dyspnea on exertion, ILD (interstitial lung disease) Primary Care Provider: Blanco Myles ED Provider: Becca Torres Home Meds and New Rx's Prescriptions: New amoxicillin-pot clavulanate 875-125 mg tablet 1 tab PO Q12H 4 Days Qty: 8 0RF azithromycin 250 mg tablet 250 mg PO DAILY 4 Days Qty: 4 0RF Rx Instructions: start on day 2 of therapy (10/15/2024) No Action tamsulosin 0.4 mg capsule 0.4 mg PO DAILY valsartan 40 mg tablet 40 mg PO DAILY potassium chloride 20 mEq tablet extended release 20 meq PO DAILY dabigatran etexilate [Pradaxa] 75 mg capsule 150 mg PO BID Qty: 180 3RF PreserVision AREDS 2,148 mcg-113 mg-45 mg-17.4mg tablet 1 tab PO BID Rx Instructions: administer with AM and PM meals doxepin 10 mg capsule 40 mg PO DAILY metoprolol succinate 25 mg tablet extended release 24 hr 25 mg PO DAILY vitamin B complex Tablet 1 tab PO DAILY bupropion HCl 150 MG tablet extended release 12 hr 200 mg PO BID multivitamin 1 EACH capsule 1 tab PO DAILY atorvastatin 80 mg Tablet 80 mg PO .Q PM nitroglycerin 0.4 MG tablet, sublingual 1 tab PO PRN PRN Patient Comments: pt using when doing something strenous cholecalciferol (vitamin D3) [Vitamin D3] 25 mcg (1,000 unit) Tablet 25 mcg PO DAILY fluticasone propionate 50 mcg/actuation spray,suspension 1 spray INTRANASAL BID PRN Rx Instructions: administer into each nostril acetaminophen 500 mg tablet 1,000 mg PO Q8H PRN Qty: 90 0RF Rx Instructions: Take two tablets up to every 8 hours as needed for pain aspirin [Children's Aspirin] 81 mg Tablet,Chewable 81 mg PO DAILY Qty: 90 0RF pantoprazole 40 mg tablet,delayed release (DR/EC) 40 mg PO DAILY Patient Comments: TAKE ONE TABLET BY MOUTH EVERY DAY, TAKE NEAR DINNERTIME Discharge Instructions Instructions: Pneumonia, Adult (DC) Additional Instructions: You were seen in the emergency department today for evaluation of shortness of breath, weakness and shakiness and were found to have pneumonia in your right lung. In our department you do full physical examination performed, had laboratory studies that did demonstrate that your INR remains very elevated, and you remain anemic. You should continue to follow with your primary care providers to discuss next steps in managing these findings. I did start you on antibiotics, which you should take for the full 5-day course, even if you start to feel better. You had a CT scan of your brain that was reassuring. Please follow-up with your primary care provider in the next few days to discuss this visit and any symptoms that change, worsen, or persist. Thank you for allowing us to be part of your care. HPI General Mode of arrival: EMS . Date/Time Provider Initiated Documentation: 10/14/24 13:52 . Limitations to Documentation: no limitations . Information obtained by: patient, family and old records reviewed . HPI Narrative: HPI: This is a 83-year-old male patient with a history of interstitial lung disease on chronic oxygen, CKD, hypertension, history of stroke with residual left-sided weakness, atrial fibrillation on anticoagulation, who is presenting for evaluation of chest pain, shortness of breath, and vertigo. The patient reports that he has not felt like himself for the last 3 days, has felt unsteady on his feet, feels that the room spins anytime he turns his head, and has a sensation of generalized anxiety. He has had worsening shortness of breath and cough productive of blood streaked sputum, states that he has not needed to adjust his oxygen or had hypoxia or changes in his vital signs at home. He has not had a fever, has not had any recent sick contacts. The patient reports that this morning he had an episode of chest pain that occurred at rest, lasted for 20 minutes before he took a nitro after which time it resolved entirely. It has not recurred. He does report a history of heart attack with stents in 2018. The patient was prompted to seek care today because he was walking with his walker at home, and notes that he has had increasing fatigue and difficulty with exertion. He was attempting to ambulate and felt very weak and unsteady, and fell forward onto his knees. This was witnessed by the who reports that it was a gentle fall, patient is not experiencing any knee pain or other injuries as a result of this fall. Exam: Gen: awake and alert, in no apparent distress. Appears well nourished. HEENT: PERRL, EOMs full and without nystagmus, though extremes of lateral gaze and downward gaze do exacerbate the patient's vertigo. External ears and nose normal, mucous membranes moist. Neck: Supple, full range of motion, no observable masses Lungs: No increased work of breathing, lung sounds with scattered crackles in the bases, otherwise without wheezes, rhonchi, or rales. CV: Heart with regular rate and rhythm, no murmurs auscultated. Strong and symmetrical radial pulses. Abdomen: Soft, nondistended, non-tended to palpation. No rigidity, rebound tenderness, or guarding. MSK: No joint swelling, no redness. Full ROM without limitation, no external traumatic findings. Skin: No rashes or lesions to visualized skin. Normal color, warm, and dry. Neuro: Cranial nerves II-XII intact and symmetrical bilaterally. 5/5 strength in all muscle groups x4 extremities with the exception of the left arm, which is very subtly weaker compared to the right. No sensory deficits. Tremulousness appreciated to the bilateral outstretched hands Psych: Appropriate for situation. MDM: This is an 83-year-old male patient presenting for evaluation of 3 days of vertigo, shortness of breath, chest pain, and alterations in gait. Differential is quite broad but includes intracranial hemorrhage, stroke, ACS, arrhythmia, certainly considered pulmonary disease exacerbation including reactive airway disease, pneumonia, pulmonary edema, pleural effusion. Considered metabolic and electrolyte derangements, anemia, kidney injury, liver disease. The patient is without fever or infectious symptoms to significantly increase my concern for viral upper respiratory infection, urinary tract infection was considered, no hemodynamic instability or fever to significantly increase my concern for sepsis or bacteremia. We will obtain a CTA of the brain and neck, chest x-ray, and laboratory studies to include CBC, CMP, magnesium, troponin, BNP, INR, and urinalysis. I obtained an EKG which shows a sinus tachycardia with a left bundle branch block which is new compared to prior EKGs, no evidence of active ischemia by Sgarbossa criteria ED Course: I reviewed the patient's laboratory studies, which reveal no leukocytosis, patient does have a gradually downtrending anemia, today 7.6, and thrombocytopenia at 95. Confirmed with the patient that he does not have any rectal bleeding or melena, is being followed in the outpatient environment for his anemia per his report. INR is quite elevated to 7.9, which has also been demonstrated and is uptrending from prior labs, patient states he is [facility] with [facility] and [facility] to determine the cause of this as he is not on Coumadin. No significant electrolyte derangements, kidney function at baseline, magnesium is slightly low at 1.5, and BNP is elevated but within the range of normal for this patient at 4800. Troponin was negative, urine noninfectious, and COVID and influenza swab was negative. Chest x-ray was obtained and shows evidence of a right pneumonia, for which I have provided the patient with a prescription for amoxicillin and azithromycin. CTA of the brain and neck was reviewed by myself and shows no intracranial hemorrhage, evidence of ischemia, or other acute abnormality. Given that the patient is not bleeding, does not require reversal of his anticoagulation, there is no indication at this time to proceed with vitamin K or other INR correcting interventions, but I did cruise counselor the patient to continue to follow-up with his outpatient providers and return to the emergency department immediately if he sustains any trauma, change in mental status, etc. At this time, the patient has had a full medical evaluation and is safe for discharge to home. They are hemodynamically stable, ambulatory, and tolerating PO. They are understanding of the follow-up plan and return precautions. They left our facility without incident. Becca Torres MD Related Data Home Medications ?Medication ?Instructions ?Recorded ?Confirmed bupropion HCl 150 mg tablet,12 hr 200 mg PO BID 11/18/17 10/14/24 sustained-release multivitamin 1 tab PO DAILY 11/18/17 10/14/24 nitroglycerin 0.4 mg sublingual 1 tab PO PRN PRN 01/07/18 10/14/24 tablet atorvastatin 80 mg tablet 80 mg PO .Q PM 05/31/19 10/14/24 cholecalciferol (vitamin D3) 25 25 mcg PO DAILY 08/07/21 10/14/24 mcg (1,000 unit) tablet (Vitamin D3) acetaminophen 500 mg tablet 1,000 mg (2 x 500 mg) PO Q8H PRN 09/30/22 10/14/24 pain #90 tabs tamsulosin 0.4 mg capsule 0.4 mg PO DAILY 12/27/22 10/14/24 vitamins A,C,H-fmve-cscgth 2,148 1 tab PO BID 06/16/23 10/14/24 mcg-113 mg-45 mg-17.4 mg tablet (PreserVision AREDS) potassium chloride 20 mEq 20 meq PO DAILY 09/18/23 10/14/24 tablet,extended release aspirin 81 mg chewable tablet 81 mg PO DAILY #90 tabs 12/04/23 10/14/24 (Children's Aspirin) doxepin 10 mg capsule 40 mg PO DAILY 12/30/23 10/14/24 fluticasone propionate 50 1 spray intranasal BID PRN 02/09/24 10/14/24 mcg/actuation nasal spray,suspension metoprolol succinate 25 mg 25 mg PO DAILY 02/09/24 10/14/24 tablet,extended release 24 hr vitamin B complex 1 tab PO DAILY 02/09/24 10/14/24 pantoprazole 40 mg tablet,delayed 40 mg PO DAILY 06/30/24 10/14/24 release valsartan 40 mg tablet 40 mg PO DAILY 08/23/24 10/14/24 dabigatran etexilate 75 mg capsule 150 mg (2 x 75 mg) PO BID #180 caps 09/20/24 10/14/24 (Pradaxa) amoxicillin 875 mg-potassium 1 tab PO Q12H 4 days #8 tabs 10/14/24 clavulanate 125 mg tablet azithromycin 250 mg tablet 250 mg PO DAILY 4 days #4 tabs 10/14/24 Previous Rx's ?Medication ?Instructions ?Recorded acetaminophen 500 mg tablet 1,000 mg (2 x 500 mg) PO Q8H PRN 09/30/22 pain #90 tabs aspirin 81 mg chewable tablet 81 mg PO DAILY #90 tabs 12/04/23 (Children's Aspirin) dabigatran etexilate 75 mg capsule 150 mg (2 x 75 mg) PO BID #180 caps 09/20/24 (Pradaxa) amoxicillin 875 mg-potassium 1 tab PO Q12H 4 days #8 tabs 10/14/24 clavulanate 125 mg tablet azithromycin 250 mg tablet 250 mg PO DAILY 4 days #4 tabs 10/14/24 Allergies Allergy/AdvReac Type Severity Reaction Status Date / Time terazosin Allergy Severe Unknown Verified 10/14/24 13:41 oxycodone AdvReac Intermediate Nausea Verified 10/14/24 13:41 pollen AdvReac Intermediate sneezing, Uncoded 10/14/24 13:41 congestion General Stated Complaint: GenMedical JAMEE: 3 Course Vital Signs Vital signs: Vital Signs Temperature 36.7 C 10/14/24 13:42 Pulse 107 H 10/14/24 13:42 Respiratory Rate 20 10/14/24 13:42 Blood Pressure 115/77 10/14/24 13:42 Pulse Oximetry 98 10/14/24 13:42 Temperature 36.7 C 10/14/24 13:42 Temperature Source Oral 10/14/24 13:42 Pulse 107 H 10/14/24 13:42 Respiratory Rate 20 10/14/24 13:42 Blood Pressure 115/77 10/14/24 13:42 Blood Pressure Position Sitting 10/14/24 13:42 Pulse Oximetry 98 10/14/24 13:42 Oxygen Delivery Method Nasal Cannula 10/14/24 13:42 Oxygen Flow Rate 2 10/14/24 13:42 Pain Level 0 10/14/24 13:42 Medical Decision Making Quality:SDOH Health Related Social Needs: No Data to Display PFSH All Active Problems (Updated 10/14/24 @ 17:35 by Becca Torres MD) Pneumonia (Acute) ILD (interstitial lung disease) (Acute) Hypoxic respiratory failure (Acute) Dyspnea on exertion (Acute) CKD (chronic kidney disease) stage 3, GFR 30-59 ml/min (Acute) Cerebral aneurysm (Acute) HTN (hypertension) (Chronic) CVA (cerebral vascular accident) (Chronic) Left arm weakness (Acute) Left rotator cuff tear arthropathy (Acute) Atrial fibrillation (Chronic) Bigeminal rhythm (Acute) Depression (Chronic) Advance directive discussed with patient (Acute) De Quervain's tenosynovitis, left (Acute) Steroid injection: 06/26/2020, 02/21/2021 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 (Acute) De Quervain's tenosynovitis, right (Acute) Injection: 06/13/2021; 01/24/2021 Pes planus of left foot (Acute) Anemia (Chronic) Medical History Hyponatremia Bursitis of shoulder, left Biceps tendinitis of left upper extremity Fracture of distal phalanx of left index finger Laceration of left index finger Palliative care patient Rupture of left quadriceps muscle s/p repair of left quad/retinacular repair x2 DOS: 09/25/22; 09/10/22 Chronic cough CHF (congestive heart failure) Hx of sinusitis 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 Hypertension HLD (hyperlipidemia) Hyperpiesia Bilateral carotid artery stenosis Cardiomyopathy Heart palpitations None recently (05/28/22) CAD (coronary artery disease) HTN (hypertension) with goal to be determined CKD (chronic kidney disease) History of non-ST elevation myocardial infarction (NSTEMI) November 2017 Surgical History 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/22) Hx of total knee arthroplasty LEFT S/P tendon repair 09/15/22 Hx of rhinoplasty Status post left foot surgery (09/17/21) [facility] Status post laparoscopic cholecystectomy (~01/2022) History of heart artery stent Hx of cataract surgery S/P ORIF (open reduction internal fixation) fracture Right distal femur fracture History of revision of total replacement of right knee joint Right TKA - [place] (2003) Two-stage revision for infection -[place] (2008) Social History Smoking/Tobacco Use Status: Former Tobacco Use Quit Date: 08/18/91 Smoking risk assessment performed?: Yes Alcohol Intake: former Drug use: Never Substance use type: does not use Housing: house Do you feel safe at home: Yes Do you feel safe in your relationship?: Yes
[2024-10-14 14:45] LABS: Abs Immature Grans 0.03 10^3/uL (0.0-0.06); HCT 25.5 % (40.0-50.0); HGB 7.6 g/dL (13.5-17.5); MCH 24.2 pg (27.0-33.0); MCHC 29.8 % (32.0-36.0); MCV 81 fL (80-95); MPV 9.8 fL (8.0-11.0); RBC 3.14 10^6/uL (4.36-5.78); RDW 17.1 % (11.8-14.1); RDW-SD 49.3 fL; WBC 4.78 10^3/uL (4.4-10.8)
[2024-10-14 15:03] LABS: ALT 22 U/L (16-63); AST 33 U/L (15-37); Albumin 2.2 g/dL (3.4-5.0); Alkaline Phosphatase 108 U/L (46-116); Anion Gap 8.9 mmol/L (3-11); BUN 24 mg/dL (7-18); Bilirubin, Total 0.73 mg/dL (0.2-1.0); CO2 24.1 mmol/L (21.0-32.0); CREATININE 1.8 mg/dL (0.70-1.30); Calcium 7.9 mg/dL (8.5-10.1); Chloride 105 mmol/L (98-107); Estimated GFR 36.66 (mL/min/1.73m2); Glucose 79 mg/dL (74-106); Magnesium 1.5 mg/dL (1.8-2.4); NT-proBNP 4828 pg/mL (<300); Potassium 4.7 mmol/L (3.5-5.1); Sodium 138 mmol/L (136-145); Total Protein 5.8 g/dL (6.4-8.2); Troponin I 16 ng/L (<or=76)
[2024-10-14 15:06] VITALS: BP 121/74; PULSE 107; RESP 18; O2SAT 92
[2024-10-14 15:07] LABS: Prothrombin Time 68.4 sec (9.1-11.1)
[2024-10-14 15:10] LABS: INR 7.9 (0.9-1.1)
[2024-10-14 15:18] LABS: COVID-19 PCR Negative (Negative); Influenza A PCR Negative (Negative); Influenza B PCR Negative (Negative); RSV PCR Negative (Negative)
[2024-10-14 15:24] LABS: Source Nasopharynx
[2024-10-14 15:26] LABS: Bilirubin Negative (Negative); Blood Negative (Negative); Clarity Clear (Clear); Glucose Negative (Negative); Ketones Negative (Negative); Leukocyte Esterase Trace (Negative); Nitrite Negative (Negative); Specific Gravity >= 1.030 (1.005-1.025)
[2024-10-14 15:44] LABS: Absolute Lymphocyte Count 1.24 10^3/uL (1.2-3.4); Absolute Neutrophil Count 3.44 10^3/uL (1.2-6.7); Atypical Lymphocytes % 1 %; Bands % 1 %
[2024-10-14 15:45] LABS: Diff Comment Manual Differential; Platelet Count 95 10^3/uL (130-400); Poikilocytes 2+
[2024-10-14 15:51] LABS: Bacteria Negative HPF (Negative); C & S Indicated? No; Casts 0-2 Hyaline LPF (Negative); Crystals Few Calcium Oxalate HPF (Negative); Epithelial Cells Few HPF (Negative); Mucus Trace (Negative); RBC Negative HPF (0-2)
[2024-10-14] MEDS: Normal Saline - Diluent 50 ML VIAL IJ (15:53)
[2024-10-14] MEDS: Omnipaque 350 MG/ML 100 ML BTL 70 ML IJ (15:54)
[2024-10-14 16:37] LABS: Troponin I 16 ng/L (<or=76)
[2024-10-14] MEDS: Amox. 875/Clav. 125, 2 TABS/BTL 1 TAB PO (17:46)
[2024-10-14] MEDS: Azithromycin 250 MG TAB 500 MG PO (17:48)
[2024-10-14] MEDS: Amoxicillin 875/Clav. 125 TAB PO (17:48)
[2024-10-14 18:00] VITALS: BP 123/76; PULSE 100; RESP 18; O2SAT 92
--- NOTE | 2024-10-14 18:20 | RESPIRATORY ---
10/14/2024 Called [facility], pt has 2L Home O2 from [employer] [facility]. Pt going home from ED with [facility] tank.
== END 2024-10-14 18:26 | disposition home or self-care (01) ==
PROVIDERS: Emergency Provider Emergency Medicine; PCP Family Medicine
DX: J18.9 Pneumonia, unspecified organism (principal); J84.9 Interstitial pulmonary disease, unspecified; I44.7 Left bundle-branch block, unspecified; I13.0 Hypertensive heart and chronic kidney disease with heart failure and stage 1 through stage 4 chronic kidney disease, or unspecified chronic kidney disease; N18.30 Chronic kidney disease, stage 3 unspecified; I50.9 Heart failure, unspecified; E78.5 Hyperlipidemia, unspecified; I48.91 Unspecified atrial fibrillation; I25.10 Atherosclerotic heart disease of native coronary artery without angina pectoris; I25.2 Old myocardial infarction; Z86.73 Personal history of transient ischemic attack (TIA), and cerebral infarction without residual deficits; Z79.82 Long term (current) use of aspirin; Z87.891 Personal history of nicotine dependence
CPT/HCPCS: 36415; 70496; 70498; 80053; 87637; 93005; 99285; 71046; 81003; 81015; 83735; 83880; 84484; 85025; 85610; 93010; 99284; J3490